=== PATIENT | male | born 1940 | race Caucasian/White ===

== ENCOUNTER 2023-01-25 13:01 | Outpatient (REF) | payer MEDICARE, SELFPAY ==
[2023-01-25 15:42] LABS: C. Difficile PCR NEGATIVE (NEGATIVE)
== END 2023-01-25 13:02 ==
LOC: LAB 13:01
PROVIDERS: PCP Family Medicine; Visit Provider Family Medicine
DX: R19.7 Diarrhea, unspecified (principal)
CPT/HCPCS: 87045; 87493

== ENCOUNTER 2023-01-30 12:01 | Outpatient (OUT) | payer MEDICARE, SELFPAY ==
--- NOTE | 2023-01-30 10:06 | CA_ITS ---
The 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
== END 2023-01-30 12:02 ==
LOC: CARD 12:02
PROVIDERS: PCP Family Medicine; Visit Provider Family Medicine
DX: R00.2 Palpitations (principal)
CPT/HCPCS: 93246

== ENCOUNTER 2023-05-15 08:10 | Outpatient (RCR) | payer MEDICARE, SELFPAY | END 2023-05-31 16:38 | disposition home or self-care (01) | LOC: PT 08:10 | PROVIDERS: PCP Family Medicine; Visit Provider Family Medicine | DX: M19.90 Unspecified osteoarthritis, unspecified site (principal); M54.50 Low back pain, unspecified | CPT/HCPCS: 97110; 97161; 97530 ==

== ENCOUNTER 2023-05-20 12:41 | Observation (INO) | payer MEDICARE, SELFPAY ==
[2023-05-20] VITALS (11 sets, daily range): BP systolic 123–193; BP diastolic 68–80; PULSE 51–81; RESP 14–20; TEMP 36.6–36.7; O2SAT 92–98; BMI 35.4; BMI 36.4
[2023-05-20] MEDS: HYDROMORPHONE HCL 0.5 MG/0.5 ML SYRINGE IM (13:39)
--- NOTE | 2023-05-20 13:48 | CT_ITS ---
The [address] [address] Patient Name: KYLER RICHARD MRN: [id number] date: 1940 Sex: M Assigned Patient Location: ED.MAIN Current Patient Location: ED.MAIN Accession/Order Number: [id number] Exam Date: 05/20/2023 13:40 Report Date: 05/20/2023 14:12 At the request of: ANNA CHINCHILLA Procedure: CT abdomen pelvis wo con CT abdomen pelvis wo con, 05/20/2023 1:40 PM EDT, [place]001 INDICATION: back pain, hx colon cancer COMPARISON: CT of the abdomen and pelvis from 09/18/2022.. TECHNIQUE: Helical images were obtained without intravenous contrast. Coronal and sagittal reconstructions were also generated. Dose reduction techniques were achieved by using automated exposure control and/or adjustment of mA and/or kV according to patient size and/or use of iterative reconstruction technique. Oral contrast: None. FINDINGS: The heart is borderline enlarged. Several punctate calcified granulomas are again seen in the visualized right lower lobe. The liver is normal in size and attenuation. Multiple small calculi are again seen in the gallbladder, without evidence of wall thickening or pericholecystic fluid. The pancreas is within normal limits. Several punctate calcified granulomas are again noted in the spleen. The adrenal glands appear unremarkable. The kidneys and ureters are within normal limits. The vasculature appears unremarkable. There is no pathologic retroperitoneal adenopathy. Portions of the pelvis are obscured by beam hardening artifact from the left hip prosthesis. The urinary bladder appears grossly unremarkable. No pelvic mass is identified. There is no evidence of pathologic pelvic adenopathy. There is no evidence of free air or free fluid. The bowel loops appear unremarkable. Multiple surgical clips are seen at the level of the rectosigmoid colon with mild stranding in the fat which may represent scarring. The appendix appears unremarkable. No significant hernia is identified. Moderate to marked hypertrophic changes are again seen throughout the visualized portions of the spine. CT/CT abdomen pelvis wo con IMPRESSION: There is no evidence of obstruction, free air or other acute intra-abdominal process. Multiple incidental findings are again noted as described above. Electronically authenticated by: SHRAVAN SHEFFIELD Date: 05/20/2023 14:12
--- NOTE | 2023-05-20 14:37 | ED_ITS ---
Documented by User: EMERSON Ferris 05/20/23 16:55 HPI - Back Pain/Injury General Chief Complaint: Back Pain/Injury Stated Complaint: BACK PAIN Time Seen by Provider: 05/20/23 13:30 Source: patient Mode of arrival: ambulance Limitations: no limitations History of Present Illness HPI Narrative: 82-year-old male past medical history colon cancer that is in remission for 20 years presents for a flareup of his chronic left lower back pain. He arrived by squad. Pain has been increased for the past 3 weeks as he was working under the kitchen sink. He states that he has seen his family doctor who put him on tizanidine and ordered physical therapy. He came in today as he states that usually once he gets moving in the morning, he can walk but today the pain was so bad that he could not walk. denies radiation of pain. denies IVDU. denies bowel or bladder incontinence. Moving around makes pain worse. Denies BLE swelling, temp or sensation changes. Related Data Home Medications Medication Instructions Recorded Confirmed aspirin 81 mg tablet,delayed 81 mg PO DAILY 05/20/23 05/20/23 release atorvastatin 40 mg tablet 40 mg PO DAILY 05/20/23 05/20/23 dorzolamide 22.3 mg-timolol 6.8 1 drp ophthalmic (eye) BID 05/20/23 05/20/23 mg/mL eye drops icosapent ethyl 1 gram capsule 2 g PO BID 05/20/23 05/20/23 latanoprost 0.005 % eye drops 1 drp ophthalmic (eye) .QHS 05/20/23 05/20/23 lisinopril 10 mg tablet 10 mg PO DAILY 05/20/23 05/20/23 meloxicam 15 mg tablet 15 mg PO DAILY 05/20/23 05/20/23 metoprolol tartrate 25 mg tablet 12.5 mg PO BID 05/20/23 05/20/23 netarsudil 0.02 % eye drops 1 drp ophthalmic (eye) DAILY 05/20/23 05/20/23 (Rhopressa) tamsulosin 0.4 mg capsule 0.4 mg PO BID 05/20/23 05/20/23 tizanidine 4 mg tablet 4 mg PO .qhs 05/20/23 05/20/23 Allergies Allergy/AdvReac Type Severity Reaction Status Date / Time No Known Drug Allergies Allergy Verified 05/20/23 13:49 Review of Systems ROS Status of ROS 10 or more systems reviewed and unremarkable except as noted in history and below [facility] Medical History (Updated 05/20/23 @ 17:46 by Martha Frederick) Surgical History (Updated 05/20/23 @ 17:46 by Martha Frederick) Family History (Updated 05/20/23 @ 17:47 by Martha Frederick) Father Family history of cancer Brother Family history of cancer Mother Family history of hypertension Social History (Updated 05/20/23 @ 17:48 by Martha Frederick) Within the past year, how often did you have a drink containing alcohol: never Score interpretation: A score less than 4 is consistent with normal alcohol consumption. Smoking status: Never smoker Non-prescribed substance use: denies use Previous occupational history: retired Highest level of school completed/degree received: Bachelor's degree Are you now , , , , never or living with a partner: Little interest or pleasure in doing things: not at all Feeling down, depressed, or hopeless: not at all Feel stressed/tense/nervous/anxious/difficulty sleeping: not at all Do you think of yourself as: straight/heterosexual Gender Identity: male Exam Narrative Exam Narrative: General: A&Ox3, no distress, talking in full an complete sentences skin: warm, dry, intact head: normocephalic, atraumatic eyes: EOMI nose: nares patent neck: supple, trachea midline respiratory: non-labored extremities: FROM x 4 but decreased range of motion of left leg due to pain in the back, strength +5/5 spine: NT, normal ROM, no vertebral tenderness, no step offs neuro: A&Ox3 psych: appropriate mood and affect, cooperative Constitutional Vital Signs, click to edit/add: Last Vital Signs Temp 97.9 F 05/20/23 17:15 Pulse 55 L 05/20/23 17:15 Resp 20 05/20/23 17:15 BP 159/77 H 05/20/23 17:15 Pulse Ox 94 L 05/20/23 17:15 O2 Del Method Room Air 05/20/23 17:15 Course Vital Signs Vital signs: Vital Signs Temperature 98.1 F 05/20/23 12:42 Pulse Rate 56 L 05/20/23 12:42 Respiratory Rate 18 05/20/23 12:42 Blood Pressure 193/79 H 05/20/23 12:42 Pulse Oximetry 98 05/20/23 12:42 Oxygen Delivery Method Room Air 05/20/23 12:42 Temperature 97.9 F 05/20/23 17:15 Pulse Rate 55 L 05/20/23 17:15 Respiratory Rate 20 05/20/23 17:15 Blood Pressure 159/77 H 05/20/23 17:15 Pulse Oximetry 94 L 05/20/23 17:15 Oxygen Delivery Method Room Air 05/20/23 17:15 MDM - Back Pain/Injury MDM Narrative Medical decision making narrative: Patient medicated with Dilaudid. No acute findings on final read of CT lumbar spine. UA positive for nitrite and leukocytes, WBCs and bacteria. He is not having dysuria or abdominal pain or urinary frequency and will hold off for the urine culture. Patient was trying to ambulate can only take a couple steps due to the pain. He states that the Dilaudid only took the sharp pain down but is still having pain. He will be given another dose and consult the hospitalist for admission for pain control and physical therapy. No significant lab normalities. Case discussed with Dr. Ba who accepts patient. Lab Data Labs: Lab Results 05/20/23 05/20/23 Range/Units 14:41 16:20 WBC 5.6 (4.0-11.0) 10^3/uL RBC 5.47 (4.70-6.10) 10^6/uL Hgb 17.8 (14.0-18.0) g/dL Hct 51.3 (42.0-54.0) % MCV 93.8 (80.0-94.0) fL MCH 32.5 (25.9-34.0) pg MCHC 34.7 (29.9-35.2) g/dL RDW 12.2 (11.0-15.0) % Plt Count 176 (150-450) 10^3/uL MPV 10.7 (9.5-13.5) fL Neut % (Auto) 49.7 (43.0-75.0) % Lymph % (Auto) 40.5 (20.5-60.0) % Hart % (Auto) 6.1 (1.7-12.0) % Eos % (Auto) 2.5 (0.9-7.0) % Baso % (Auto) 0.7 (0.2-2.0) % Neut # (Auto) 2.8 (1.4-6.5) 10^3/uL Lymph # (Auto) 2.3 (1.2-3.8) 10^3/uL Hart # (Auto) 0.3 (0.3-0.8) 10^3/uL Eos # (Auto) 0.1 (0.0-0.7) 10^3/uL Baso # (Auto) 0.0 (0.0-0.1) 10^3/uL Abs Immat Gran (auto) 0.03 (0.00-0.03) 10^3/uL Imm/Tot Granulo (auto) 0.5 (0.0-0.5) % Sodium 141 (136-145) mmol/L Potassium 4.0 (3.5-5.1) mmol/L Chloride 104 (98-107) mmol/L Carbon Dioxide 27.6 (21.0-32.0) mmol/L Anion Gap 13.4 BUN 20.0 H (7.0-18.0) mg/dL Creatinine 0.89 (0.70-1.30) mg/dL Est GFR ( Amer) >60 (>=60) Est GFR (Non-Af Amer) >60 (>=60) BUN/Creatinine Ratio 22.5 Glucose 96 (74-106) mg/dL Calcium 9.3 (8.5-10.1) mg/dL Urine Color Lt. yellow (YELLOW) Urine Clarity Clear (CLEAR) Urine pH 8.0 (5.0-9.0) Ur Specific [place] 1.015 (1.005-1.025) Urine Protein Negative (NEG/TRACE) mg/dL Urine Glucose (UA) Negative (NEGATIVE) mg/dL Urine Ketones Negative (NEGATIVE) mg/dL Urine Occult Blood Negative (NEGATIVE) Urine Nitrite Positive A (NEGATIVE) Urine Bilirubin Negative (NEGATIVE) Urine Urobilinogen 0.2 (0.2-1.0) EU/dL Ur Leukocyte Esterase Small A (NEGATIVE) Urine RBC 0-2 (0-2) #/HPF Urine WBC 5-10 A (NONE SEEN) #/HPF Ur Squamous Epith Cells Rare (NONE/RARE) #/LPF Urine Crystals None seen (None Seen) #/HPF Urine Bacteria Small A (NONE SEEN) #/HPF Urine Casts None seen (NONE SEEN) #/LPF Urine Mucus None seen (NONE SEEN) Ur Culture Indicated? Yes Discharge Plan Discharge Chief Complaint: Back Pain/Injury Clinical Impression: Inability to walk Strain of lumbar region Qualifiers: Encounter type: initial encounter Qualified Code(s): S39.012A - Strain of muscle, fascia and tendon of lower back, initial encounter Chronic back pain Qualifiers: Back pain location: low back pain Back pain laterality: left Sciatica presence: without sciatica Qualified Code(s): M54.50 - Low back pain, unspecified Patient Disposition: Admitted As Inpatient Time of Disposition Decision: 16:10 Discharge Date/Time: 05/20/23 17:17 Documented by User: Smooth Monteiro MD 05/20/23 20:06 HPI - Back Pain/Injury General Chief Complaint: Back Pain/Injury Stated Complaint: BACK PAIN Time Seen by Provider: 05/20/23 13:30 Related Data Home Medications Medication Instructions Recorded Confirmed aspirin 81 mg tablet,delayed 81 mg PO DAILY 05/20/23 05/20/23 release atorvastatin 40 mg tablet 40 mg PO DAILY 05/20/23 05/20/23 dorzolamide 22.3 mg-timolol 6.8 1 drp ophthalmic (eye) BID 05/20/23 05/20/23 mg/mL eye drops icosapent ethyl 1 gram capsule 2 g PO BID 05/20/23 05/20/23 latanoprost 0.005 % eye drops 1 drp ophthalmic (eye) .QHS 05/20/23 05/20/23 lisinopril 10 mg tablet 10 mg PO DAILY 05/20/23 05/20/23 meloxicam 15 mg tablet 15 mg PO DAILY 05/20/23 05/20/23 metoprolol tartrate 25 mg tablet 12.5 mg PO BID 05/20/23 05/20/23 netarsudil 0.02 % eye drops 1 drp ophthalmic (eye) DAILY 05/20/23 05/20/23 (Rhopressa) tamsulosin 0.4 mg capsule 0.4 mg PO BID 05/20/23 05/20/23 tizanidine 4 mg tablet 4 mg PO .qhs 05/20/23 05/20/23 Allergies Allergy/AdvReac Type Severity Reaction Status Date / Time No Known Drug Allergies Allergy Verified 05/20/23 13:49 [facility] Medical History (Updated 05/20/23 @ 17:46 by Martha Frdeerick) Surgical History (Updated 05/20/23 @ 17:46 by Martha Frederick) Family History (Updated 05/20/23 @ 17:47 by Martha Frederick) Father Family history of cancer Brother Family history of cancer Mother Family history of hypertension Social History (Updated 05/20/23 @ 17:48 by Martha Frederick) Within the past year, how often did you have a drink containing alcohol: never Score interpretation: A score less than 4 is consistent with normal alcohol consumption. Smoking status: Never smoker Non-prescribed substance use: denies use Previous occupational history: retired Highest level of school completed/degree received: Bachelor's degree Are you now , , , , never or living with a partner: Little interest or pleasure in doing things: not at all Feeling down, depressed, or hopeless: not at all Feel stressed/tense/nervous/anxious/difficulty sleeping: not at all Do you think of yourself as: straight/heterosexual Gender Identity: male Exam Constitutional Vital Signs, click to edit/add: Last Vital Signs Temp 97.9 F 05/20/23 17:15 Pulse 55 L 05/20/23 17:15 Resp 20 05/20/23 17:15 BP 159/77 H 05/20/23 17:15 Pulse Ox 94 L 05/20/23 17:15 O2 Del Method Room Air 05/20/23 17:15 Course Vital Signs Vital signs: Vital Signs Temperature 98.1 F 05/20/23 12:42 Pulse Rate 56 L 05/20/23 12:42 Respiratory Rate 18 05/20/23 12:42 Blood Pressure 193/79 H 05/20/23 12:42 Pulse Oximetry 98 05/20/23 12:42 Oxygen Delivery Method Room Air 05/20/23 12:42 Temperature 97.9 F 05/20/23 17:15 Pulse Rate 55 L 05/20/23 17:15 Respiratory Rate 20 05/20/23 17:15 Blood Pressure 159/77 H 05/20/23 17:15 Pulse Oximetry 94 L 05/20/23 17:15 Oxygen Delivery Method Room Air 05/20/23 17:15 MDM - Back Pain/Injury MDM Narrative Medical decision making narrative: Patient medicated with Dilaudid. No acute findings on final read of CT lumbar spine. UA positive for nitrite and leukocytes, WBCs and bacteria. He is not having dysuria or abdominal pain or urinary frequency and will hold off for the urine culture. Patient was trying to ambulate can only take a couple steps due to the pain. He states that the Dilaudid only took the sharp pain down but is still having pain. He will be given another dose and consult the hospitalist for admission for pain control and physical therapy. No significant lab normalities. Case discussed with Dr. Ba who accepts patient. I, Dr Monteiro, have reviewed the above progress note and course of action in the ER; agree with the above. I have personally seen and evaluated this patient, gone over history and physical, and discussed disposition and treatment plan with the patient. Lab Data Labs: Lab Results 05/20/23 05/20/23 Range/Units 14:41 16:20 WBC 5.6 (4.0-11.0) 10^3/uL RBC 5.47 (4.70-6.10) 10^6/uL Hgb 17.8 (14.0-18.0) g/dL Hct 51.3 (42.0-54.0) % MCV 93.8 (80.0-94.0) fL MCH 32.5 (25.9-34.0) pg MCHC 34.7 (29.9-35.2) g/dL RDW 12.2 (11.0-15.0) % Plt Count 176 (150-450) 10^3/uL MPV 10.7 (9.5-13.5) fL Neut % (Auto) 49.7 (43.0-75.0) % Lymph % (Auto) 40.5 (20.5-60.0) % Hart % (Auto) 6.1 (1.7-12.0) % Eos % (Auto) 2.5 (0.9-7.0) % Baso % (Auto) 0.7 (0.2-2.0) % Neut # (Auto) 2.8 (1.4-6.5) 10^3/uL Lymph # (Auto) 2.3 (1.2-3.8) 10^3/uL Hart # (Auto) 0.3 (0.3-0.8) 10^3/uL Eos # (Auto) 0.1 (0.0-0.7) 10^3/uL Baso # (Auto) 0.0 (0.0-0.1) 10^3/uL Abs Immat Gran (auto) 0.03 (0.00-0.03) 10^3/uL Imm/Tot Granulo (auto) 0.5 (0.0-0.5) % Sodium 141 (136-145) mmol/L Potassium 4.0 (3.5-5.1) mmol/L Chloride 104 (98-107) mmol/L Carbon Dioxide 27.6 (21.0-32.0) mmol/L Anion Gap 13.4 BUN 20.0 H (7.0-18.0) mg/dL Creatinine 0.89 (0.70-1.30) mg/dL Est GFR ( Amer) >60 (>=60) Est GFR (Non-Af Amer) >60 (>=60) BUN/Creatinine Ratio 22.5 Glucose 96 (74-106) mg/dL Calcium 9.3 (8.5-10.1) mg/dL Urine Color Lt. yellow (YELLOW) Urine Clarity Clear (CLEAR) Urine pH 8.0 (5.0-9.0) Ur Specific [place] 1.015 (1.005-1.025) Urine Protein Negative (NEG/TRACE) mg/dL Urine Glucose (UA) Negative (NEGATIVE) mg/dL Urine Ketones Negative (NEGATIVE) mg/dL Urine Occult Blood Negative (NEGATIVE) Urine Nitrite Positive A (NEGATIVE) Urine Bilirubin Negative (NEGATIVE) Urine Urobilinogen 0.2 (0.2-1.0) EU/dL Ur Leukocyte Esterase Small A (NEGATIVE) Urine RBC 0-2 (0-2) #/HPF Urine WBC 5-10 A (NONE SEEN) #/HPF Ur Squamous Epith Cells Rare (NONE/RARE) #/LPF Urine Crystals None seen (None Seen) #/HPF Urine Bacteria Small A (NONE SEEN) #/HPF Urine Casts None seen (NONE SEEN) #/LPF Urine Mucus None seen (NONE SEEN) Ur Culture Indicated? Yes Discharge Plan Discharge Chief Complaint: Back Pain/Injury Clinical Impression: Inability to walk Strain of lumbar region Qualifiers: Encounter type: initial encounter Qualified Code(s): S39.012A - Strain of muscle, fascia and tendon of lower back, initial encounter Chronic back pain Qualifiers: Back pain location: low back pain Back pain laterality: left Sciatica presence: without sciatica Qualified Code(s): M54.50 - Low back pain, unspecified Patient Disposition: Admitted As Inpatient Time of Disposition Decision: 16:10 Discharge Date/Time: 05/20/23 17:17
[2023-05-20 14:55] LABS: Bilirubin Urine NEGATIVE (NEGATIVE); Blood Urine NEGATIVE (NEGATIVE); Clarity Urine CLEAR (CLEAR); Color Urine LT. YELLOW (YELLOW); Glucose Urine UA NEGATIVE (NEGATIVE); Ketones Urine NEGATIVE (NEGATIVE); Leukocyte Esterase Urine SMALL (NEGATIVE); Nitrite Urine POSITIVE (NEGATIVE); Protein Urine NEGATIVE (NEG/TRACE); Specific Gravity Urine 1.015 (1.005-1.025); Urobilinogen Urine 0.2 EU/dL (0.2-1.0)
[2023-05-20 15:10] LABS: Bacteria Urine SMALL #/HPF (NONE SEEN); Cast Seen? NONE SEEN #/LPF (NONE SEEN); Crystals Seen? None Seen #/HPF (None Seen); Mucus Urine NONE SEEN (NONE SEEN); RBC Urine 0-2 #/HPF (0-2); Squamous Epithelial Cell Urine RARE #/LPF (NONE/RARE); Urine Culture Indicated YES
[2023-05-20 16:30] LABS: Basophils Percent Auto 0.7 % (0.2-2.0); Eosinophils Absolute Auto 0.1 10^3/uL (0.0-0.7); Eosinophils Percent Auto 2.5 % (0.9-7.0); Hematocrit 51.3 % (42.0-54.0); Hemoglobin 17.8 g/dL (14.0-18.0); Immature Granulocytes Abs Auto 0.03 10^3/uL (0.00-0.03); Immature Granulocytes Pct Auto 0.5 % (0.0-0.5); Lymphocytes Absolute Auto 2.3 10^3/uL (1.2-3.8); Lymphocytes Percent Auto 40.5 % (20.5-60.0); Mean Corpuscular HGB Conc 34.7 g/dL (29.9-35.2); Mean Corpuscular Hemoglobin 32.5 pg (25.9-34.0); Mean Corpuscular Volume 93.8 fL (80.0-94.0); Mean Platelet Volume 10.7 fL (9.5-13.5); Monocytes Absolute Auto 0.3 10^3/uL (0.3-0.8); Monocytes Percent Auto 6.1 % (1.7-12.0); Neutrophils Absolute Auto 2.8 10^3/uL (1.4-6.5); Neutrophils Percent Auto 49.7 % (43.0-75.0); Platelet Count 176 10^3/uL (150-450); Red Blood Count 5.47 10^6/uL (4.70-6.10); Red Cell Distribution Width 12.2 % (11.0-15.0); White Blood Count 5.6 10^3/uL (4.0-11.0)
[2023-05-20 16:44] LABS: Anion Gap 13.4; BUN Creatinine Ratio 22.5; Calcium 9.3 mg/dL (8.5-10.1); Carbon Dioxide 27.6 mmol/L (21.0-32.0); Chloride 104 mmol/L (98-107); Estimated GFR (African America >60 (>=60); Estimated GFR (Non-African Ame >60 (>=60); Glucose 96 mg/dL (74-106); Sodium 141 mmol/L (136-145)
[2023-05-20] MEDS: HYDROMORPHONE HCL 0.5 MG/0.5 ML SYRINGE IV (16:44)
--- NOTE | 2023-05-20 19:20 | P.HP_ITS ---
H&P: HPI History of Present Illness Chief complaint: BACK PAIN Narrative: Patient is a low back pain presented to the emergency room with increasing low back pain, increased activity the day before this he felt pretty good. Due to some twisting motion getting in and out of the car and he thinks that this was tweaked his back. Unable to ambulate at home. Does get some pain into the left leg from time to time but not consistent. Patient mated for pain control Review of Systems ROS Status of ROS 10 or more systems reviewed and unremarkable except as noted in history and below Cardiovascular Denies: chest pain or palpitations Respiratory Denies: shortness of breath Genitourinary Denies: painful urination PFSH PFS Medical History (Updated 05/20/23 @ 17:46 by Martha Frederick) Surgical History (Updated 05/20/23 @ 17:46 by Martha Frederick) Family History (Updated 05/20/23 @ 17:47 by Martha Frederick) Father Family history of cancer Brother Family history of cancer Mother Family history of hypertension Social History (Updated 05/20/23 @ 17:48 by Martha Frederick) Within the past year, how often did you have a drink containing alcohol: never Score interpretation: A score less than 4 is consistent with normal alcohol consumption. Smoking status: Never smoker Non-prescribed substance use: denies use Previous occupational history: retired Highest level of school completed/degree received: Bachelor's degree Are you now , , , , never or living with a partner: Little interest or pleasure in doing things: not at all Feeling down, depressed, or hopeless: not at all Feel stressed/tense/nervous/anxious/difficulty sleeping: not at all Do you think of yourself as: straight/heterosexual Gender Identity: male Meds Home Medications and Allergies Home Medications Medication Instructions Recorded Confirmed Type aspirin 81 mg tablet,delayed 81 mg PO DAILY 05/20/23 05/20/23 History release atorvastatin 40 mg tablet 40 mg PO DAILY 05/20/23 05/20/23 History dorzolamide 22.3 mg-timolol 6.8 1 drp ophthalmic (eye) BID 05/20/23 05/20/23 History mg/mL eye drops icosapent ethyl 1 gram capsule 2 g PO BID 05/20/23 05/20/23 History latanoprost 0.005 % eye drops 1 drp ophthalmic (eye) .QHS 05/20/23 05/20/23 History lisinopril 10 mg tablet 10 mg PO DAILY 05/20/23 05/20/23 History meloxicam 15 mg tablet 15 mg PO DAILY 05/20/23 05/20/23 History metoprolol tartrate 25 mg tablet 12.5 mg PO BID 05/20/23 05/20/23 History netarsudil 0.02 % eye drops 1 drp ophthalmic (eye) DAILY 05/20/23 05/20/23 History (Rhopressa) tamsulosin 0.4 mg capsule 0.4 mg PO BID 05/20/23 05/20/23 History tizanidine 4 mg tablet 4 mg PO .qhs 05/20/23 05/20/23 History Allergies Allergy/AdvReac Type Severity Reaction Status Date / Time No Known Drug Allergies Allergy Verified 05/20/23 13:49 Exam Constitutional Vital Signs, click to edit/add: Last Vital Signs Temp 97.9 F 05/20/23 17:15 Pulse 55 L 05/20/23 17:15 Resp 20 05/20/23 17:15 BP 159/77 H 05/20/23 17:15 Pulse Ox 94 L 05/20/23 17:15 O2 Del Method Room Air 05/20/23 17:15 Documenting provider has reviewed patient's vital signs: yes Common normals: no apparent distress Chest Common normals: inspection of chest normal Respiratory Common normals: normal respiratory effort and clear to auscultation bilaterally Cardio Common normals: regular rate and no murmurs GI Common normals: Normal to inspection, nondistended, normoactive bowel sounds present, soft to palpation and non-tender Back & Pelvis Other: Diffuse lumbosacral muscle tenderness. Positive straight leg raise on the left side but minimal change in strength Results Labs Labs: Short CBC 05/20/23 Range/Units 16:20 WBC 5.6 (4.0-11.0) 10^3/uL Hgb 17.8 (14.0-18.0) g/dL Hct 51.3 (42.0-54.0) % Plt Count 176 (150-450) 10^3/uL BMP 05/20/23 16:20 Sodium 141 Potassium 4.0 Chloride 104 Carbon Dioxide 27.6 BUN 20.0 H Creatinine 0.89 Glucose 96 Calcium 9.3 Urine 05/20/23 Range/Units 14:41 Urine Color Lt. yellow (YELLOW) Urine Clarity Clear (CLEAR) Urine pH 8.0 (5.0-9.0) Ur Specific [place] 1.015 (1.005-1.025) Urine Protein Negative (NEG/TRACE) mg/dL Urine Glucose (UA) Negative (NEGATIVE) mg/dL Assessment and Plan Assessment and Plan (1) Strain of lumbar region: Qualifiers: Encounter type: initial encounter Qualified Code(s): S39.012A - Strain of muscle, fascia and tendon of lower back, initial encounter (2) Chronic back pain: Qualifiers: Back pain laterality: left Back pain location: low back pain Sciatica presence: without sciatica Qualified Code(s): M54.50 - Low back pain, unspecified; G89.29 - Other chronic pain (3) Inability to walk: (4) Heart disease: (5) Hypertension: Plan Unable to ambulate secondary to lumbar strain secondary to chronic low back pain-this is have some radicular type symptoms with pain into the left leg. Toradol, Norflex, consider steroids, physical therapy, if improved tomorrow likely discharged home in improving condition. Hypertension-continue home medications Coronary artery disease with elevated cholesterol-denies chest pain
[2023-05-20] MEDS: TAMSULOSIN HCL 0.4 MG CAPSULE PO (21:40)
[2023-05-20] MEDS: METOPROLOL TARTRATE 25 MG TABLET 12.5 MG PO (21:40)
[2023-05-20] MEDS: DORZOLAMIDE HCL 2%/TIMOLOL MALEATE 0.5% 200 DROP/10 ML BOTTLE EYE-BOTH (21:41)
[2023-05-20] MEDS: LEVOFLOXACIN IN DEXTROSE 5 % 750 MG/150 ML PIGGYBACK IV (21:49)
[2023-05-20] MEDS: KETOROLAC TROMETHAMINE 30 MG/ML VIAL 15 MG IVP (21:49)
[2023-05-20] MEDS: ORPHENADRINE 60 MG/ 2 ML VIAL IV (21:50)
[2023-05-21] MEDS: KETOROLAC TROMETHAMINE 30 MG/ML VIAL 15 MG IVP ×2 (04:55→12:59)
[2023-05-21 06:00] VITALS: BP 149/64; PULSE 61; RESP 16; TEMP 36.4; O2SAT 92
[2023-05-21] MEDS: CEFTRIAXONE 1,000 MG in 0.9 % SODIUM CHLORIDE 50 ML 100 MG IV (07:54)
[2023-05-21] MEDS: CIPROFLOXACIN IN 5 % DEXTROSE 400 MG/200 ML PIGGYBACK 200 MG IV (07:55)
--- NOTE | 2023-05-21 08:18 | CM.NOTE ---
Medicare Outpatient Observation Notice discussed with pt, pt verbalizes understanding and signs paper. Original given to pt and copy placed on pt's chart.
[2023-05-21] MEDS: METOPROLOL TARTRATE 25 MG TABLET 12.5 MG PO (08:59)
[2023-05-21] MEDS: TAMSULOSIN HCL 0.4 MG CAPSULE PO (08:59)
[2023-05-21] MEDS: LISINOPRIL 10 MG TABLET PO (08:59)
[2023-05-21] MEDS: ATORVASTATIN CALCIUM 40 MG TABLET PO (08:59)
[2023-05-21] MEDS: DORZOLAMIDE HCL 2%/TIMOLOL MALEATE 0.5% 200 DROP/10 ML BOTTLE EYE-BOTH (09:06)
[2023-05-21] MEDS: ORPHENADRINE 60 MG/ 2 ML VIAL IV (09:07)
--- NOTE | 2023-05-21 09:15 | P.DS_ITS ---
DS: Providers Provider Date of admission: 05/20/23 17:02 Primary care physician: Bayron Ba MD Consults: 05/20/23 18:41 Occupational Therapy Eval and Treat Routine Reason for consultation: sback pain - only if needed for rehab Has provider been notified: No Physical Therapy Eval and Treat Routine Reason for consultation: back pain Has provider been notified: No DS: Diagnosis Discharge Diagnosis (1) Strain of lumbar region: Qualifiers: Encounter type: initial encounter Qualified Code(s): S39.012A - Strain of muscle, fascia and tendon of lower back, initial encounter (2) Chronic back pain: Qualifiers: Back pain laterality: left Back pain location: low back pain Sciatica presence: without sciatica Qualified Code(s): M54.50 - Low back pain, unspecified; G89.29 - Other chronic pain (3) Inability to walk: (4) Heart disease: (5) Hypertension: Plan Unable to ambulate secondary to lumbar strain secondary to chronic low back pain Hypertension L Coronary artery disease with elevated cholesterol DS: Summary Hospital Course Hospital Course: Patient mated and presented himself to the emergency room with increasing low back pain. Unable to ambulate. Given multiple medications in the ER without success. Patient was admitted, given IV medication overnight. He does feel improved this morning. Has not worked with physical therapy yet today. Blood pressure is significantly elevated at admission but is improved currently. Laboratory evaluation unremarkable other than acute UTI. He is on IV antibiotics for that. He is able to ambulate with physical therapy will be discharged home later this morning in improving condition. Medications see list. Follow-up with me in the office next week. Time Spent with Patient Time attestation: Total time spent providing and/or coordinating discharge services: Exam Constitutional Vital Signs, click to edit/add: Last Vital Signs Temp 97.6 F 05/21/23 06:00 Pulse 61 05/21/23 06:00 Resp 16 05/21/23 06:00 BP 149/64 H 05/21/23 06:00 Pulse Ox 92 L 05/21/23 06:00 O2 Del Method Room Air 05/21/23 06:00 Documenting provider has reviewed patient's vital signs: yes Common normals: no apparent distress Chest Common normals: inspection of chest normal Respiratory Common normals: normal respiratory effort and clear to auscultation bilaterally Cardio Common normals: regular rate and no murmurs GI Common normals: Normal to inspection, nondistended, normoactive bowel sounds present, soft to palpation and non-tender Back & Pelvis Other: Diffuse lumbosacral muscle tenderness. Positive straight leg raise on the left side but minimal change in strength DS: Data Data Completed and Pending Labs on day of discharge: Labs from last 24 hours 05/20/23 05/20/23 16:20 14:41 WBC 5.6 RBC 5.47 Hgb 17.8 Hct 51.3 MCV 93.8 MCH 32.5 MCHC 34.7 RDW 12.2 Plt Count 176 MPV 10.7 Neut % (Auto) 49.7 Lymph % (Auto) 40.5 [place] % (Auto) 6.1 Eos % (Auto) 2.5 Baso % (Auto) 0.7 Neut # (Auto) 2.8 Lymph # (Auto) 2.3 [place] # (Auto) 0.3 Eos # (Auto) 0.1 Baso # (Auto) 0.0 Abs Immat Gran (auto) 0.03 Imm/Tot Granulo (auto) 0.5 Sodium 141 Potassium 4.0 Chloride 104 Carbon Dioxide 27.6 Anion Gap 13.4 BUN 20.0 H Creatinine 0.89 Est GFR ( Amer) >60 Est GFR (Non-Af Amer) >60 BUN/Creatinine Ratio 22.5 Glucose 96 Calcium 9.3 Urine Color Lt. yellow Urine Clarity Clear Urine pH 8.0 Ur Specific [place] 1.015 Urine Protein Negative Urine Glucose (UA) Negative Urine Ketones Negative Urine Occult Blood Negative Urine Nitrite Positive A Urine Bilirubin Negative Urine Urobilinogen 0.2 Ur Leukocyte Esterase Small A Urine RBC 0-2 Urine WBC 5-10 A Ur Squamous Epith Cells Rare Urine Crystals None seen Urine Bacteria Small A Urine Casts None seen Urine Mucus None seen Ur Culture Indicated? Yes Discharge Plan Discharge Disposition: Home, Self-Care Discharge Medications: New baclofen 20 mg tablet 20 mg PO .qhs Qty: 14 0RF levofloxacin 500 mg tablet 500 mg PO DAILY 5 Days Qty: 5 0RF Continued atorvastatin 40 mg tablet 40 mg PO DAILY dorzolamide-timolol 22.3-6.8 mg/mL drops 1 drp OPHTHALMIC (EYE) BID Rx Instructions: BOTH EYES icosapent ethyl 1 gram capsule 2 g PO BID latanoprost 0.005 % drops 1 drp OPHTHALMIC (EYE) .QHS Rx Instructions: RIGHT EYE lisinopril 10 mg tablet 10 mg PO DAILY meloxicam 15 mg tablet 15 mg PO DAILY metoprolol tartrate 25 mg tablet 12.5 mg PO BID Rhopressa 0.02 % drops 1 drp OPHTHALMIC (EYE) DAILY Rx Instructions: RIGHT EYE tamsulosin 0.4 mg capsule 0.4 mg PO BID aspirin 81 mg tablet,delayed release (DR/EC) 81 mg PO DAILY Discontinued tizanidine 4 mg tablet 4 mg PO .qhs Rx Instructions: 1 to 2 tablets at bedtime Forms: Portal Instructions
[2023-05-21 11:30] VITALS: O2SAT 96
--- NOTE | 2023-05-21 13:23 | SWNOTE1 ---
SW checked therapy note and no PT needed at discharge.
--- NOTE | 2023-05-21 15:02 | SWNOTE1 ---
SW met with pt to discuss dc needs. Pt lives at home with his . Pt has had back problems for over 60 years due to a piano falling on his back when he was in his twenties. Pt was doing well and it just comes and goes. He sometimes uses a walker/cane especially if they are out and about. Pt voiced he is feeling much better and has no concerns about discharge at this time. Pt still drives to [employer] in [place]. SW to follow as needed. No needs at this time.
--- NOTE | 2023-05-22 16:22 | CM.DCFOLLOWU ---
Person spoke with: patient How are you feeling? well How is your pain? controlled Did you understand your discharge instructions? yes Do you have any questions about your discharge instructions? no Were you given any prescriptions at discharge? yes Were you able to get your prescriptions filled? yes Do you understand how to take your medications as ordered? yes Do you have any questions about your follow up appointment and do you plan to keep your follow up appointment? no questions, all follow ups are scheduled and pt is aware of them Is there anything else that you would like to discuss? no Questions/Comments/Concerns/Other:
== END 2023-05-21 16:15 | disposition home or self-care (01) ==
LOC: ER 16:11 → MS 05-21 07:01
PROVIDERS: Physician Assistant; Admitting Provider Family Medicine; Emergency Provider Emergency Medicine; PCP Family Medicine; Visit Provider Family Medicine
DX: S39.012A Strain of muscle, fascia and tendon of lower back, initial encounter (principal); G89.29 Other chronic pain; I10 Essential (primary) hypertension; R26.2 Difficulty in walking, not elsewhere classified; N39.0 Urinary tract infection, site not specified; I25.10 Atherosclerotic heart disease of native coronary artery without angina pectoris; E78.00 Pure hypercholesterolemia, unspecified; Z79.899 Other long term (current) drug therapy; Z79.82 Long term (current) use of aspirin; X50.1XXA Overexertion from prolonged static or awkward postures, initial encounter; B96.89 Other specified bacterial agents as the cause of diseases classified elsewhere
CPT/HCPCS: 36415; 74176; 80048; 81001; 85025; 87086; 87150; 87186; 94761; 96365; 96368; 96372; 96375; 96376; 97162; 97165; 97535; 99285; G0378; J1170

== ENCOUNTER 2023-05-27 08:04 | Outpatient (OUT) | payer MEDICARE, SELFPAY ==
--- NOTE | 2023-05-27 09:23 | PM.CN ---
Consult Note: HPI Data of Consult Patient: new to practice Consult date: 05/27/23 Requesting Physician: Fabrice Dias MD Primary Care Provider: Bayron Ba MD Consult Narrative Reason for consult: low back, left leg pain Narrative: 82yom who presents for evaluation. worsening low back, left leg pain that exacerbated in the past several weeks. was in ER last week for pain, no spinal imaging completed. utilizes mobic. currently continuing in PT, which provides mild relief. denies adverse med side effects. cc:: CC: Fabrice Dias MD Review of Systems ROS Status of ROS 10 or more systems reviewed and unremarkable except as noted in history and below [facility] Medical History Chronic back pain ?M54.9 - Dorsalgia, unspecified (ICD-10) ?G89.29 - Other chronic pain (ICD-10) Colon cancer ?C18.9 - Malignant neoplasm of colon, unspecified (ICD-10) Glaucoma ?H40.9 - Unspecified glaucoma (ICD-10) Heart disease ?I51.9 - Heart disease, unspecified (ICD-10) High cholesterol ?E78.00 - Pure hypercholesterolemia, unspecified (ICD-10) Hypertension ?I10 - Essential (primary) hypertension (ICD-10) Inability to walk ?R26.2 - Difficulty in walking, not elsewhere classified (ICD-10) Strain of lumbar region ?S39.012A - Strain of muscle, fascia and tendon of lower back, initial encounter (ICD-10) Surgical History Cataracts, both eyes ?H26.9 - Unspecified cataract (ICD-10) Detached retina, left ?H33.22 - Serous retinal detachment, left eye (ICD-10) Hernia of abdominal wall ?K43.9 - Ventral hernia without obstruction or gangrene (ICD-10) History of colectomy ?Z90.49 - Acquired absence of other specified parts of digestive tract (ICD-10) History of left hip replacement ?Z96.642 - Presence of left artificial hip joint (ICD-10) History of quadruple bypass ?Z95.1 - Presence of aortocoronary bypass graft (ICD-10) Family History Father Family history of cancer Brother Family history of cancer Mother Family history of hypertension Social History Within the past year, how often did you have a drink containing alcohol: never Score interpretation: A score less than 4 is consistent with normal alcohol consumption. Smoking status: Never smoker Non-prescribed substance use: denies use Previous occupational history: retired Highest level of school completed/degree received: Bachelor's degree Are you now , , , , never or living with a partner: Little interest or pleasure in doing things: not at all Feeling down, depressed, or hopeless: not at all Feel stressed/tense/nervous/anxious/difficulty sleeping: not at all Do you think of yourself as: straight/heterosexual Gender Identity: male Meds Home Medications and Allergies Home Medications Medication Instructions Recorded Confirmed Type aspirin 81 mg tablet,delayed 81 mg PO DAILY 05/20/23 05/20/23 History release atorvastatin 40 mg tablet 40 mg PO DAILY 05/20/23 05/20/23 History dorzolamide 22.3 mg-timolol 6.8 1 drp ophthalmic (eye) BID 05/20/23 05/20/23 History mg/mL eye drops icosapent ethyl 1 gram capsule 2 g PO BID 05/20/23 05/20/23 History latanoprost 0.005 % eye drops 1 drp ophthalmic (eye) .QHS 05/20/23 05/20/23 History lisinopril 10 mg tablet 10 mg PO DAILY 05/20/23 05/20/23 History meloxicam 15 mg tablet 15 mg PO DAILY 05/20/23 05/20/23 History metoprolol tartrate 25 mg tablet 12.5 mg PO BID 05/20/23 05/20/23 History netarsudil 0.02 % eye drops 1 drp ophthalmic (eye) DAILY 05/20/23 05/20/23 History (Rhopressa) tamsulosin 0.4 mg capsule 0.4 mg PO BID 05/20/23 05/20/23 History baclofen 20 mg tablet 20 mg PO .[facility] #14 tabs 05/21/23 Rx levofloxacin 500 mg tablet 500 mg PO DAILY 5 days #5 tabs 05/21/23 Rx Allergies Allergy/AdvReac Type Severity Reaction Status Date / Time No Known Drug Allergies Allergy Verified 05/20/23 13:49 Exam Narrative Exam Narrative: Psych-alert and oriented x 3. Attentive and appropriate, constitutionally normal, displays normal mood and affect per situation. There are no obvious deficits in memory, reasoning, or intellect.? Skin-no obvious rashes, bruising, erythema noted to the patient's area of pain.? Extremities- extremities are warm with minimal edema and palpable pulses. Lumbar-tenderness to palpation noted in the lumbar spine and paraspinal musculature. Pain is elicited with flexion, extension, and lateral rotation of the lumbar spine. Range of motion is diminished with these motions. Facet loading maneuvers are positive. Strength-noted to be unremarkable with the exception of decreased strength rated at 4 out of 5 in left quadriceps femoris, anterior tibialis. Sensory-no notable sensory deficits in the bilateral lower extremities to touch or pinprick in all dermatomal distributions with the exception to decreased sensation to the left L3, 4, 5 dermatomal distribution Coordination remains intact.? Gait remains non-antalgic Assessment and Plan Assessment and Plan (1) Lumbar stenosis with neurogenic claudication: (2) Lumbar spondylosis: Plan 82yom who presents for evaluation. failed conservative measures, as noted. no imaging completed previously, so given worsening of symptoms, will have him undergo lumbar mri without contrast and xr sacrum. he is in agreement. encouraged him to continue his home exercises. medications reviewed, no changes. does not want medications. followup after imaging.
== END 2023-05-27 08:05 | disposition home or self-care (01) ==
LOC: PM 08:06
PROVIDERS: PCP Family Medicine; Visit Provider Anesthesiology
DX: M48.062 Spinal stenosis, lumbar region with neurogenic claudication (principal); M47.816 Spondylosis without myelopathy or radiculopathy, lumbar region
CPT/HCPCS: G0463

== ENCOUNTER 2023-05-30 07:55 | Outpatient (OUT) | payer MEDICARE, SELFPAY ==
--- NOTE | 2023-05-30 08:04 | XR_ITS ---
The [address] [address] Patient Name: KYLER RICHARD MRN: [id number] date: 1940 Sex: M Assigned Patient Location: RAD Current Patient Location: RAD Accession/Order Number: [id number] Exam Date: 05/30/2023 08:10 Report Date: 05/30/2023 13:39 At the request of: ANDRIUS GIEDRAITIS Procedure: XR sacrum coccyx min 2V PROCEDURE: XR sacrum coccyx min 2V DATE: 05/30/2023 7:10 AM CDT COMPARISONS: CT the abdomen and pelvis 05/20/2023 CLINICAL INDICATION: Lumbar Stenosis FINDINGS: There is no evidence of fractures or other acute osseous abnormalities. There is evidence of some chronic deformity of the tip of the coccyx. This could be related to old injury. There is evidence of prominent degenerative disc changes L5-S1. There is evidence of prominent lower lumbar spine facet degenerative changes. There is evidence of prosthetic left hip. There is mild bilateral sacroiliac degenerative changes. XR/XR sacrum coccyx min 2V IMPRESSION: Findings as discussed above. No evidence of acute osseous abnormalities. Electronically authenticated by: TERRENCE GILBERT Date: 05/30/2023 13:39
== END 2023-05-30 07:56 | disposition home or self-care (01) ==
LOC: RAD 07:57
PROVIDERS: PCP Family Medicine
DX: M48.061 Spinal stenosis, lumbar region without neurogenic claudication (principal); M47.816 Spondylosis without myelopathy or radiculopathy, lumbar region; Z96.642 Presence of left artificial hip joint
CPT/HCPCS: 72220

== ENCOUNTER 2023-09-23 13:05 | Outpatient (OUT) | payer MEDICARE, SELFPAY ==
--- OUTSIDE RECORDS SUMMARY | 2023-09-23 13:07 | XMS_ITS | CCD ---
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 Name Role Phone Eliana Ba Primary Care Physician [phone] MD Reno VALENTIN Attending Unavailable MD Reno VALENTIN Attending Unavailable MD Reno VALENTIN Attending Unavailable MD Reno VALENTIN Attending Unavailable MD Reno VALENTIN Attending Unavailable GERONIMO ., KARLOS Admitting Unavailable GERONIMO ., KARLOS Consulting Unavailable GERONIMO ., KARLOS Attending Unavailable MARCUS ., DR MONROY Primary Care Unavailable Mayra Lopez Consulting Unavailable HOY ., DR MONROY Attending Unavailable HOY ., DR MONROY Admitting Unavailable HOY ., DR MONROY Primary Care Unavailable HOY ., DR MONROY Consulting Unavailable HOY ., DR MONROY Attending Unavailable HOY ., DR MONROY Admitting Unavailable HOY ., DR MONROY Primary Care Unavailable HOY ., DR MONROY Consulting Unavailable CALVIN BARNES Consulting Unavailable Arun COE, Fabrice Conner Attending Unavailable Rocio Chan Unavailable Allergies Allergy Classification Reported Allergen(s) Allergy Type Date of Onset Reaction(s) Facility (2 sources) levoFLOXacin; Translations: [levofloxacin] Drug Allergy Irritation (qualifier value) [facility] Medications Current Medications Medication Drug Class(es) Dates Sig (Normalized) Sig (Original) Aspirin (1 source) Platelet Aggregation Inhibitor, Nonsteroidal Anti-inflammatory Drug Start: 09-26-2022 aspirin Start Date: 09/26/22 Status: Ordered atorvastatin 40 mg oral tablet (3 sources) HMG-CoA Reductase Inhibitor Start: 03-13-2019 atorvastatin 40 mg oral tablet Refills(s) 0 Start Date: 03/13/19 Status: Ordered brimonidine (2 sources) alpha-Adrenergic Agonist Start: 03-13-2019 brimonidine ophthalmic 0.2% solution Refill(s) 0 Start Date: 03/13/19 Status: Ordered Start: 03-13-2019 brimonidine op hthalmic 0.2% solution Refill(s) 0 Start Date: 03/13/19 Status: Ordered brimonidine tartrate 2 mg/ml / timolol 5 mg/ml ophthalmic solution (1 source) alpha-Adrenergic Agonist, beta-Adrenergic Whit take 1 drop(s) into the eye(s) twice daily Combigan 0.2-0.5 % 1 drop into affected eye Ophthalmic Twice a day Active dorzolamide (3 sources) Carbonic Anhydrase Inhibitor Start: 03-13-20 take 1 drop(s) into the eye(s) three times daily dorzolamide 2% ophthalmic solution 1 drop(s), OPTH, TID, 10 mL, Refill(s) 0 Start Date: 03/13/19 Status: Ordered Start: 03-13-2019 take 1 drop(s) into the eye(s) three times daily dorzolamide 2% ophthalmic solution 1 drop(s), OPTH, TID, 10 mL, Refill(s) 0 Start Date: 03/13/19 Status: Ordered take 1 drop(s) into the eye(s) three times daily Dorzolamide HCl 2 % 1 drop into affected eye Ophthalmic Three times a day Active doxycycline hyclate 100 mg oral capsule (1 source) Tetracycline-class Drug Start: 09-26-2022 End: 10-06-2022 take 1 capsule by mouth twice daily doxycycline hyclate 100 mg Cap 100 mg = 1 cap(s), Oral, BID, X 10 day(s), # 20 cap(s), Refills(s) 0, Pharmacy: [id number], 160, cm, 09/26/22 13:50:00 EST, Height/Length Dosing, 97.3, kg, 09/26/22 13:50:00 EST, Weight Dosing Start Date: 09/26/22 Stop Date: 10/06/22 Status: Ordered icosapent ethyl 1000 mg oral capsule (3 sources) Start: 03-13-2019 Vascepa 1 g oral capsule Refills(s) 0 Start Date: 03/13/19 Status: Ordered take 2 capsules by m outh every twelve hours Vascepa 1 GM 2 capsules with food Orally Twice a day Active latanoprost (3 sources) Prostaglandin Analog Start: 03-13-2019 take 1 drop(s) into the eye(s) once daily at bedtime latanoprost ophthalmic 0.005% solution 1 drop(s), OPTH, Once a day (at bedtime), 2.5 mL, Refill(s) 0 Start Date: 03/13/19 Status: Ordered Start: 03-13-2019 take 1 drop(s) into the eye(s) once daily at bedtime latanoprost ophthalmic 0.005% solution 1 drop(s), OPTH, Once a day (at bedtime), 2.5 mL, Refill(s) 0 Start Date: 03/13/19 Status: Ordered take 1 drop(s) into the eye(s) once daily in the evening Latanoprost 0.005 % 1 drop into affected eye in the evening Ophthalmic Once a day Active lisinopril 10 mg oral tablet (3 sources) Angiotensin Converting Enzyme Inhibitor Start: 03-13-2019 lisinopril 10 mg oral tablet Refills(s) 0 Start Date: 03/13/19 Status: Ordered metoprolol tartrate 25 mg oral tablet (3 sources) beta-Adrenergic Whit Start: 03-13-2019 take 1 tablet by mouth once daily Lopressor 25 mg oral tablet 25 mg = 1 tab(s), Oral, Daily, Refills(s) 0 Start Date: 03/13/19 Status: Ordered take 1 tablet by lavern every twelve hours Metoprolol Tartrate 25 MG 1 tablet with food Orally Twice a day Active Multi Vitamin+ (1 source) Start: 09-26-2022 Multi Vitamin+ Start Date: 09/26/22 Status: Ordered netarsudil 0.2 mg/ml ophthalmic solution (2 sources) Rho Kinase Inhibitor Start: 03-13-2019 Rhopressa 0.02% ophthalmic solution Refill(s) 0 Start Date: 03/13/19 Status: Ordered tamsulosin hydrochloride 0.4 mg oral capsule (2 sources) alpha-Adrenergic Whit Start: 03-07-2022 take 1 capsule by mouth twice daily tamsulosin 0.4 mg Cap 0.4 mg = 1 cap(s), Oral, BID, # 180 cap(s), Refills(s) 3, [facility], 160, cm, 10/16/21 14:26:00 EST, Height/Length Dosing, 94.4, kg, 10/16/21 14:26:00 EST, Weight Dosing Start Date: 03/07/22 Status: Ordered 12 hr timolol 5 mg/ml ophthalmic solution (1 source) beta-Adrenergic Whit Start: 03-13-2019 timolol Opth 0.5% Yvette 5 mL Refill(s) 0 Start Date: 03/13/19 Status: Ordered timolol Opth 0.5% Yvette 5 mL (1 source) Start: 03-13-2019 timolol Opth 0 .5% Yvette 5 mL Refill(s) 0 Start Date: 03/13/19 Status: Ordered Completed/Discontinued Medications Medication Drug Class(es) Dates Sig (Normalized) Sig (Original) acetaminophen 325 mg / oxyCODONE hydrochloride 5 mg oral tablet (2 sources) Opioid Agonist Start: 12-25-2016 take 1-2 tablets by mouth every four to six hours as needed Percocet 5-325 MG 1-2 tablet as needed Orally every 4-6 hrs December, Not-Taking cephalexin 500 mg oral tablet (1 source) Cephalosporin Antibacterial Start: 03-23-2021 take 1 tablet by mouth every twelve hours Cephalexin 500 MG 1 tablet Orally every 12 hrs for 10 day(s) Feb, Not-Taking hydrOXYzine pamoate 25 mg oral capsule (2 sources) Antihistamine Start: 12-25-2016 Vistaril 25 MG 1-2 capsule as needed Orally every 6-8 hrs for 30 day(s) December, Not-Taking meloxicam 15 mg oral tablet (5 sources) Nonsteroidal Anti-inflammatory Drug Start: 04-09-2017 take 1 tablet by mouth every twenty-four hours Meloxicam 15 MG 1 tablet Orally Once a day for 30 day(s) Jun, Not-Taking rivaroxaban 10 mg oral tablet (1 source) Factor Xa Inhibitor Start: 12-25-2016 take 1 tablet by mouth every twenty-four hours Xarelto 10 MG 1 tablet Orally Once a day for 30 day(s) December, Not-Taking Problems Active Problems Problem Classification Problem Date Documented Da te Episodic/Chronic Biliary tract disease (2 sources) Biliary calculus 03-13-2019 Episodic Cancer of colon (2 sources) Carcinoma of colon, stage I 03-13-2019 Chronic Congestive heart failure; nonhypertensive (1 source) Unspecified diastolic (congestive) heart failure; Translations: [UNSPECIFIED DIASTOLIC HEART FAILURE] Onset: 09-28-2022 Chronic Coronary atherosclerosis and other heart disease (3 sources) Chronic ischemic heart disease, unspecified; Translations: [Angina pectoris, unspecified] Onset: 09-20-2022 Chronic Disorders of lipid metabolism (7 sources) Hypercholesterolemia ; Translations: [Hyperlipidemia, unspecified] Onset: 09-20-2022 03-13-2019 Chronic Essential hypertension (3 sources) Hypertensive disorder; Translations: [Essential (primary) hypertension] Onset: 09-20-2022 03-13-2019 Chronic Hyperplasia of prostate (4 sources) Benign prostatic hypertrophy with outflow obstruction; Translations: [Benign prostatic hyperplasia with lower urinary tract symptoms] Onset: 04-16-2022 Chronic Hypertension with complications and secondary hypertension (1 source) Hypertensive heart disease with heart failure; Translations: [HTN HEART DISEASE W/HEART FAIL] Onset: 09-28-2022 Chronic Nutritional deficiencies (1 source) Vitamin D deficiency, unspecified; Translations: [VITAMIN D DEFICIENCY UNSPECIFIED] Onset: 09-28-2022 Chronic Osteoarthritis (2 sources) Osteoarthritis of right knee joint; Translations: [Unilateral primary osteoarthritis, right knee] Chronic Other and ill-defined heart disease (1 source) Cardiomegaly; Translations: [CARDIOMEGALY] Onset: 09-28-2022 Chronic Other connective tissue disease (1 source) History of total hip arthroplasty; Translations: [Presence of left artificial hip joint] Chronic Other connective tissue disease (1 source) History of repair of hip joint; Translations: [Presence of left artificial hip joint] Chronic Other diseases of bladder and urethra (4 sources) Male urethral stricture; Translations: [Unspecified urethral stricture, male, unspecified site] Onset: 04-16-2022 Episodic Other diseases of kidney and ureters (1 source) Urinary tract obstruction; Translations: [Other obstructive and reflux uropathy] Onset: 04-16-2022 Episodic Other gastrointestinal disorders (2 sources) Scrotal mass 05-18-2019 Episodic Other male genital disorders (2 sources) Disorder of male genital organ 10-16-2021 Episodic Other male genital disorders (2 sources) Spermatocele 11-02-2019 Episodic Other male genital disorders (2 sources) Testicular mass 03-13-2019 Episodic Other nervous system disorders (1 source) Chronic pain; Translations: [Other chronic pain] Chronic Other non-traumatic joint disorders (1 source) Hip pain; Translations: [Pain in left hip] Episodic Other nutritional; endocrine; and metabolic disorders (1 source) Obese class II; Translations: [Body mass index (BMI) 36.0-36.9, adult] Onset: 04-16-2022 Chronic Other nutritional; endocrine; and metabolic disorders (2 sources) Body mass index 30+ - obesity 04-16-2022 Chronic Vanessa-; endo-; and myocarditis; cardiomyopathy (except that caused by tuberculosis or sexually transmitted disease) (2 sources) Pericarditis 03-13-2019 Episodic Residual codes; unclassified (2 sources) Sleep apnea 03-13-2019 Chronic Residual codes; unclassified (1 source) Sleep apnea, unspecified; Translations: [SLEEP APNEA UNSPECIFIED] Onset: 09-20-2022 Chronic Retinal detachments; defects; vascular occlusion; and retinopathy (2 sources) Retinal detachment 03-13-2019 Episodic Spondylosis; intervertebral disc disorders; other back problems (1 source) Low back pain; Translations: [Low back pain] Episodic Past or Other Problems Problem Classification Problem Date Documented Da te Episodic/Chronic Calculus of urinary tract (5 sources) Kidney stone; Translations: [Calculus of kidney] Onset: 04-16-2022 Episodic Cancer of colon (1 source) Personal history of other malignant neoplasm of large intestine; Translations: [PERS HX OTH MALIG NEOPLSM LG INTEST] Onset: 09-20-2022 Episodic Coronary atherosclerosis and other heart disease (1 source) Presence of aortocoronary bypass graft; Translations: [PRESENCE AORTOCORONARY BYPASS GRAFT] Onset: 09-20-2022 Episodic Diabetes mellitus without complication (1 source) Other abnormal glucose; Translations: [OTHER ABNORMAL GLUCOSE] Onset: 09-28-2022 Episodic Genitourinary symptoms and ill-defined conditions (12 sources) Nocturia; Translations: [Retention of urine] Onset: 09-18-2022 10-16-2021 Episodic Other aftercare (1 source) Other prison (current) drug therapy; Translations: [OTH GROUP HOME CURRENT DRUG THERAPY] Onset: 09-20-2022 Episodic Other aftercare (1 source) 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; Translations: [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] Onset: 09-20-2022 Episodic Other male genital disorders (2 sources) Hydrocele Resolved: 08-26[birth year]1989 03-13-2019 Episodic Other screening for suspected conditions (not mental disorders or infectious disease) (1 source) Encounter for screening for malignant neoplasm of prostate; Translations: [ENC SCREEN MALIG NEOPLASM PROSTATE] Onset: 09-28-2022 Episodic Residual codes; unclassified (1 source) Acquired absence of other specified parts of digestive tract; Translations: [ACQ ABSENCE OTH PART DIGESTV TRACT] Onset: 09-20-2022 Episodic Unclassified (1 source) Contact with and (suspected) exposure to covid-19 Z20.822 Urinary tract infections (3 sources) Urinary tract infectious disease; Translations: [Urinary tract infection, site not specified] Onset: 09-20-2022 Episodic Viral infection (1 source) COVID-19 Results Test Name Value Interpretation Reference Range Facility COVID/FLU RT-PCRon 3 SARS-CoV-2 (COVID-19) RNA TERRIE+probe Ql (Unsp spec) Positive [employer] Other COVID/FLU RT-PCR Negative [employer] Other XR KNEE RT 3Von 01-23-2023 XR KNEE RT 3V EXAM: XR KNEE RT 3V HISTORY: Osteoarthritis of knee COMPARISON: None TECHNIQUE: 3 views FINDINGS: No acute fracture or dislocation. Moderate to severe degenerative changes. Unremarkable soft tissues. IMPRESSION: Moderate to severe degenerative changes. Electronically authenticated by: CALVIN BARNES Date: 2023-01-23 13:29 Normal [facility] Screenson 09-27-2022 Screens [id number] Normal [facility] Patient Educationon 09-26-19 23 Patient Education Infectious Disease Infection Prevention in the Home If you have an infection, may have been exposed to an infection, or are taking care of someone who has an infection, it is important to know how to keep the infection from spreading. Follow your health care provider's instructions and use these guidelines to help stop the spread of infection. How infections are spread In order for an infection to spread, the following must be present: ? A germ. This may be a virus, bacteria, fungus, or parasite. ? A place for the germ to live. This may be: ? On or in a person, animal, plant, or food. ? In soil or water. ? On surfaces, such as a door handle. ? A person or animal who can develop a disease if the germ enters the body (host). The host does not have resistance to the germ. ? A way for the germ to enter the host. This may occur by: ? Direct contact with an infected person or animal. This can happen through shaking hands or hugging. Some germs can also travel through the air and spread to others. This can happen when an infected person coughs or sneezes on or near other people. ? Indirect contact. This occurs when the germ enters the host through contact with an infected object. Examples include: ? Eating or drinking food or water that has the germ (is contaminated). ? Touching a contaminated surface with your hands, and then touching your face, eyes, nose, or mouth. Supplies needed: ? Soap. ? Alcohol-based hand rodent exterminator. ? Standard cleaning products. ? Disinfectants, such as bleach. ? Reusable cleaning cloths, sponges, or paper towels. ? Disposable or reusable utility gloves. How to prevent infection from spreading There are several things that you can do to help prevent infection from spreading. Take these general actions Everyone should take the following actions to prevent the spread of infection: ? Wash your hands often with soap and water for at least 20 seconds. If soap and water are not available, use alcohol-based hand rodent exterminator. ? Avoid touching your face, mouth, nose, or eyes. ? Cough or sneeze into a tissue, sleeve, or elbow instead of into your hand or into the air. ? If you cough or sneeze into a tissue, throw it away immediately and wash your hands. Keep your bathroom clean ? Provide soap. ? Change towels and washcloths frequently. ? Change toothbrushes often and store them separately in a clean, dry place. ? Clean and disinfect all surfaces, including the toilet, floor, tub, shower, and sink. ? Do not share personal items, such as razors, toothbrushes, deodorant, driscoll, brushes, towels, and washcloths. Maintain hygiene in the kitchen ? Wash your hands before and after preparing food and before you eat. ? Clean the inside of your refrigerator each week. ? Keep your refrigerator set at 40?F (4?C) or less, and set your freezer at 0?F (?18?C) or less. ? Keep work surfaces clean. Disinfect them regularly. ? Wash your dishes in hot, soapy water. Air-dry your dishes or use a bag printer. ? Do not share dishes or eating utensils. Handle food safely ? Store food carefully. ? Refrigerate leftovers promptly in covered containers. ? Throw out stale or spoiled food. ? Thaw foods in the refrigerator or microwave, not at room temperature. ? Serve foods at the proper temperature. Do not eat raw meat. Make sure it is cooked to the appropriate temperature. Cook eggs until they are firm. ? Wash fruits and vegetables under running water. ? Use separate cutting boards, plates, and utensils for raw foods and cooked foods. ? Use a clean spoon each time you sample food while cooking. Do laundry the right way ? Wear gloves if laundry is visibly soiled. ? Do not shake soiled laundry. Doing that may send germs into the air. ? Wash laundry in hot water. ? If you cannot wash the laundry right away, place it in a plastic bag and wash it as soon as possible. Be careful around animals and pets ? Wash your hands before and after touching animals. ? If you have a pet, ensure that your pet stays clean. Do not let people with weak immune systems touch bird droppings, fish tank water, or a litter box. ? If you have a pet cage or litter box, be sure to clean it every day. ? If you are sick, stay away from animals and have someone else care for them if possible. How to clean and disinfect objects and surfaces Precautions ? Some disinfectants work for certain germs and not others. Read the silverware supervisor's instructions or read online resources to determine if the product you are using will work for the germ you are trying to remove. ? If you choose to use bleach, use it safely. Never mix it with other cleaning products, especially those that contain ammonia. This mixture can create a dangerous gas that may be deadly. ? Keep proper movement of fresh air in your home (ventilation). ? Pour used mop water down the utility sink or toil (more content not included)... Normal [facility] Urology Office/Clinic Noteon 09-26-2022 Urology Office/Clinic Note Chief Complaint pt here for f/u from [facility] due to hematuria HPI Staff Pt is here for a hospital f/u from [facility] 09/18/[address] scan done 09/18/22 shows no renal calculus or hydronephrosis identified. limited evaluation of the distal ureters due to streak artifact from orthopedic hardware. Pts previous DX: BPH with urinary obstruction, kidney stone, nocturia, scrotal cyst, spermatocele, testicular mass, urinary retention, urethral stricture in male. Pt currently taking Flomax 0.4 mg BID. S/P cysto 03/17/19. Dysuria:denies Incomplete bladder emptying: denies Hematuria: yes visible blood as of 09/18/22. Pt has seen none since e.r visit. UA shows none Frequency: yes, every 2 hours Urgency: sometimes Nocturia: 1x per night on average Stream: weak stream, no stop start, no hesitation Leaking: denies Post void dripping: denies Wearing pads/ Depends: yes daily pads, most days uses just one Urge incontinence: yes Stress incontinence: denies Incontinence without Sensory Awareness: denies Abdominal pain: denies Flank pain: denies Sexual complaints: denies History of Present Illness Tests Reviewed: Reviewed UA. I have reviewed and verified the staff HPI to be accurate for this encounter. I have reviewed the previous health record information and history for this patient from Dr. Valentin There have been no associated fever, chills, flank pain, or blood in the urine. Denies any urinary infections since last encounter. Review of Systems PHQ Score Initial Depression Screen Score: 0 ROS - Provider Constitutional: denies weight loss, denies hot flashes. Eyes: denies eye problems. Gastrointestinal: denies nausea, denies vomiting. Cardiovascular: denies chest pain or angina. Integumentary: no dryness Musculoskeletal: denies musculoskeletal symptoms. ENMT: denies otolaryngeal symptoms. Respiratory: no shortness of breath. Heme/Lymph: denies easy bleeding tendency, denies easy bruising tendency. Psychiatric: no confusion, no anxiety. Genitourinary: denies dysuria, denies hematuria, denies discharge, denies urinary frequency, denies urinary hesitancy, denies nocturia, denies incontinence, denies genital sores, denies decreased libido, and denies erectile dysfunction. Physical Exam Vitals & Measurements HR: 52(Peripheral) BP: 173/74 HT: 63 in HT: 160 cm WT: 97.3 kg WT: 214.06 lb BMI: 38.01 General Appearance: alert, no distress, well nourished, well developed male. Genitourinary: normal scrotum, normal testes, normal urethra, normal epididymis, normal vas deferens/spermatic cord. Flank Pain: none. Bladder: nonpalpable. Assessment/Plan 1. BPH with urinary obstruction (N40.1: Benign prostatic hyperplasia with lower urinary tract symptoms) Currently taking Flomax 0.4mg BID stated his stream is strong and feels like he emptying his bladder completely. Denies a delay in his stream starting Will continue Flomax and monitor for any changes in urination. Pt agrees with plan. 2. Kidney stone (N20.0: Calculus of kidney) CT done 09/18/22 showed neg for stones or hydro 3. Urethral stricture in male (N35.919: Unspecified urethral stricture, male, unspecified site) S/P Cysto/UD 06/15/21 pt stated back in Nov he CIC due to difficulties with urination but has not CIC since then. 4. UTI (urinary tract infection) (N39.0: Urinary tract infection, site not specified) PT was diagnosed with UTI on 09/18/22 UA today is neg for an infection today Pt was given Levofloxacin at [facility] ER and he could not tolerate this. He was never really treated for his infection. denies any pain or burning currently or at the time of infection Will start pt on Doxycycline 100mg BID for 10 days. Discussed the medication side effects, and the patient will monitor closely for these, as well as for symptom improvement. If severe side effects occur, the medication should be stopped and the office notified. 5. Gross hematuria (R31.0: Gross hematuria) PT went to [facility] ER on 09/18/22 due to hematuria. he had infection at that time. ?from cic briefly prior to this episode. UA today is neg for blood pt stated he has not seen any visible blood since ER visit denies any hx of gross hematuria No further hematuria w/u is needed at this time, due to gross hematuria was because of UTI. Pt knows to monitor for any visible blood or blood clots in his urine and if he develops either or he is to contact our office Follow-up With When Contact Information Reno VALENTIN MD, URL Within 3 months [facility] [address] [place] [address]- Additional Instructions: UTI F/U Patient Education Infection Prevention in the Home I, Merle Miranda, personally scribed for Dr. Valentin on 09/26/2022 14:16:39. . Documentation recorded by the scribe, Merle Miranda, accurately reflects the services(s) I performed and decisions made by me. Aut (more content not included)... Normal [facility] Comment on above: Result Comment: Elec tronically Signed By: Reno VALENTIN MD\.br\Date and Time Signed: 09/26/22 14:20 EST\.br\Electronically Co-Signed By: Mrele Miranda\.br\Date and Time Co-Signed: 09/26/22 14:16 EST INSULINon 09-25-2022 Insulin 6.0 uIU/mL Normal 2.6-24.9 [facility] Comment on above: Performed By: #### I NSULIN #### [facility] [address] [address] [address] Wally Zapien BNPon 09-24-2022 Natriuretic peptide B (Bld) [Mass/Vol] 110.0 pg/mL Normal <=1,800.0 [facility] Comment on above: Performed By: #### U RCX #### [facility] [address] [address] [address] Wally Zapien CBC AUTO DIFFon 09-24-2022 BASO # 0.0 103/ul Normal 0.0-0.1 [facility] Comment on above: Performed By: #### C BC #### [facility] [address] [place] [address] Dr. Wally Zapien Basophils/100 WBC (Bld) 1.0 % Normal 0.2-2.0 [facility] Comment on above: Performed By: #### C BC #### [facility] [address] [place] [address] Dr. Wally Zapien EO # 0.2 103/ul Normal 0.0-0.7 [facility] Comment on above: Performed By: #### C BC #### [facility] [address] [place] [address] Dr. Wally Zapien Eosinophils/100 WBC (Bld) 4.2 % Normal 0.9-7.0 [facility] Comment on above: Performed By: #### C BC #### [facility] [address] [place] [address] Dr. Wally Zapien Erythrocyte distribution width (RBC) [Ratio] 12.5 % Normal 11.0-15.0 [facility] Comment on above: Performed By: #### C BC #### [facility] [address] [place] [address] Dr. Wally Zapien Hematocrit (Bld) [Volume fraction] 43.7 % Normal 42.0-54.0 [facility] Comment on above: Performed By: #### C BC #### [facility] [address] [place] [address] Dr. Wally Zapien Hemoglobin (Bld) [Mass/Vol] 15.4 g/dL Normal 14.0-18.0 [facility] Comment on above: Performed By: #### C BC #### [facility] [address] [place] [address] Dr. Wally Zapien IG # 0.02 10e3/ul Normal 0.00-0.03 [facility] Comment on above: Performed By: #### C BC #### [facility] [address] [place] [address] Dr. Wally Zapien IG % 0.5 % Normal 0.0-0.5 [facility] Comment on above: Performed By: #### C BC #### [facility] [address] [place] [address] Dr. Wally Zapien LYMPH # 1.7 103/ul Normal 1.2-3.8 [facility] Comment on above: Performed By: #### C BC #### [facility] [address] [place] [address] Dr. Wally Zapien Lymphocytes/100 WBC (Bld) 42.6 % Normal 20.5-60.0 [facility] Comment on above: Performed By: #### C BC #### [facility] [address] [place] [address] Dr. Wally Zapien MANUAL DIFF REQ NO Normal [facility] Comment on above: Performed By: #### C BC #### [facility] [address] [place] [address] Dr. Wally Zapien MCH (RBC) [Entitic mass] 31.6 pg Normal 25.9-34.0 [facility] Comment on above: Performed By: #### C BC #### [facility] [address] [place] [address] Dr. Wally Zapien MCHC (RBC) [Mass/Vol] 35.2 g/dL Normal 29.9-35.2 [facility] Comment on above: Performed By: #### C BC #### [facility] [address] [place] [address] Dr. Wally Zapien MCV (RBC) [Entitic vol] 89.5 fL Normal 80.0-94.0 [facility] Comment on above: Performed By: #### C BC #### [facility] [address] [place] [address] Dr. Wally Zapien MONO # 0.4 103/ul Normal 0.3-0.8 [facility] Comment on above: Performed By: #### C BC #### [facility] [address] [place] [address] Dr. Wally Zapien Monocytes/100 WBC (Bld) 9.2 % Normal 1.7-12.0 [facility] Comment on above: Performed By: #### C BC #### [facility] [address] [address] [address] Wally Zapien NEUT # 1.7 103/ul Normal 1.4-6.5 [facility] Comment on above: Performed By: #### C BC #### [facility] [address] [address] [address] Wally Zapien Neutrophils/100 WBC (Bld) 42.5 % Critically low 43.0-75.0 [facility] Comment on above: Performed By: #### C BC #### [facility] [address] [place] [address] Dr. Wally Zapien Platelet mean volume (Bld) [Entitic vol] 9.9 fL Normal 9.5-13.5 [facility] Comment on above: Performed By: #### C BC #### [facility] [address] [place] [address] Dr. Wally Zapien PLT 149 103/ul Critically low 150-450 [facility] Comment on above: Performed By: #### C BC #### [facility] [address] [place] [address] Dr. Wally Zapien RBC 4.88 106/ul Normal 4.70-6.10 [facility] Comment on above: Performed By: #### C BC #### [facility] [address] [place] [address] Dr. Wally Zapien WBC 4.0 103/ul Normal 4.0-11.0 [facility] Comment on above: Performed By: #### C BC #### [facility] [address] [place] [address] Dr. Wally Zapien CULTURE URINEon 09-24-2022 CULTURE URINE Culture Observations: LIGHT GROWTH OF MIXED SKIN GENNA. NO POTENTIAL PATHOGENS SEEN. Normal [facility] Comment on above: Performed By: #### U RCX #### [facility] [address] [place] [address] Dr. Wally Zapien FREE THYROXINE INDEX T7on FTI 2.52 Normal 1.30-4.50 [facility] Comment on above: Performed By: #### U RCX #### [facility] [address] [address] [address] Wally Zapien T3U 36.0 % Normal 33.0-40.0 [facility] Comment on above: Performed By: #### U RCX #### [facility] [address] [address] [address] Wally Zapien T4 [Mass/Vol] 7.00 ug/dL Normal 4.50-12.10 [facility] Comment on above: Performed By: #### U RCX #### [facility] [address] [address] [address] Wally Zapien GLYCOHEMOGLOBIN A1Con 2022 ADA RECOMMENDATION SEE BELOW Normal [facility] Comment on above: Result Comment: ADA RECOMMENDED LIMIT 4.0 - 6.0 ADA THERAPEUTIC TARGET < 7.0 ACTION SUGGESTED > 7.0 Performed By: #### A 1C #### [facility] [address] [address] [address] Wally Zapien Glucose [Mass/Vol] 123 mg/dL Normal [facility] Comment on above: Performed By: #### A 1C #### [facility] [address] [place] [address] Dr. Wally Zapien HbA1c (Bld) [Mass fraction] 5.9 % Normal 4.5-6.2 [facility] Comment on above: Performed By: #### A 1C #### [facility] [address] [place] [address] Dr. Wally Zapien LIPID PROFILEon 09-24-2022 CHOL-HDL RATIO NORM SEE BELOW Normal [facility] Comment on above: Result Comment: 3.3 - 4.4 LOW RISK 4.4 - 7.1 AVERAGE RISK 7.1 - 11.0 MODERATE RISK >11.0 HIGH RISK Performed By: #### U RCX #### [facility] [address] [place] [address] Dr. Wally Zapien Cholesterol [Mass/Vol] 117 mg/dL Normal <=200 [facility] Comment on above: Performed By: #### U RCX #### [facility] [address] [address] [address] Wally Zapien Cholesterol in HDL [Mass/Vol] 38 mg/dL Critically low 40-60 [facility] Comment on above: Performed By: #### U RCX #### [facility] [address] [address] [address] Wally Zapien Cholesterol in LDL [Mass/Vol] 32.6 mg/dL Normal [facility] Comment on above: Performed By: #### U RCX #### [facility] [address] [address] [address] Wally Zapien Cholesterol.total/Ch olesterol in HDL [Mass ratio] 3.1 {ratio} Normal [facility] Comment on above: Performed By: #### U RCX #### [facility] [address] [address] [address] Wally Zapien HDL NORMAL > or = 60 mg/dl - LOW CARDIOVASCULAR RISK <40 mg/dl - HIGH CARDIOVASCULAR RISK Normal [facility] Comment on above: Performed By: #### U RCX #### [facility] [address] [address] [address] Wally Zapien LDL CALC NORMAL SEE BELOW Normal [facility] Comment on above: Result Comment: <100 mg/dl OPTIMAL 100 - 129 mg/dl NEAR OR ABOVE OPTIMAL 130 - 159 mg/dl BORDERLINE HIGH 160 - 189 mg/dl HIGH >190 mg/dl VERY HIGH Performed By: #### U RCX #### [facility] [address] [address] [address] Wally Zapien Triglyceride [Mass/Vol] 232 mg/dL Critically high <=150 [facility] Comment on above: Performed By: #### U RCX #### [facility] [address] [address] [address] Wally Zapien VLDL CALC 46.4 mg/dL Normal [facility] Comment on above: Performed By: #### U RCX #### [facility] [address] [address] [address] Wally Zapien PROF 14(COMP METB)on 023 Albumin [Mass/Vol] 3.8 g/dL Normal 3.4-5.0 [facility] Comment on above: Performed By: #### B PROGRAM FACILITATOR, T7, LIPID, TSH, CMP, URIC #### [facility] [address] [place] [address] Dr. Wally Zapien Albumin/Globulin [Mass ratio] 1.2 {ratio} Normal [facility] Comment on above: Performed By: #### B PROGRAM FACILITATOR, T7, LIPID, TSH, CMP, URIC #### [facility] [address] [place] [address] Dr. Wally Zapien ALP [Catalytic activity/Vol] 80 U/L Normal 46-116 [facility] Comment on above: Performed By: #### B PROGRAM FACILITATOR, T7, LIPID, TSH, CMP, URIC #### [facility] [address] [place] [address] Dr. Wally Zapien ALT [Catalytic activity/Vol] 34 U/L Normal 16-63 [facility] Comment on above: Performed By: #### B PROGRAM FACILITATOR, T7, LIPID, TSH, CMP, URIC #### [facility] [address] [place] [address] Dr. Walyl Zapien Anion gap [Moles/Vol] 11.3 mmol/L Normal [facility] Comment on above: Performed By: #### B PROGRAM FACILITATOR, T7, LIPID, TSH, CMP, URIC #### [facility] [address] [place] [address] Dr. Wally Zapien AST [Catalytic activity/Vol] 24 U/L Normal 15-37 [facility] Comment on above: Performed By: #### B PROGRAM FACILITATOR, T7, LIPID, TSH, CMP, URIC #### [facility] [address] [place] [address] Dr. Wally Zapien Bilirubin [Mass/Vol] 1.0 mg/dL Normal 0.2-1.0 [facility] Comment on above: Performed By: #### B PROGRAM FACILITATOR, T7, LIPID, TSH, CMP, URIC #### [facility] [address] [place] [address] Dr. Wally Zapien Calcium [Mass/Vol] 8.5 mg/dL Normal 8.5-10.1 [facility] Comment on above: Performed By: #### B PROGRAM FACILITATOR, T7, LIPID, TSH, CMP, URIC #### [facility] [address] [place] [address] Dr. Wally Zapien Chloride [Moles/Vol] 105 mmol/L Normal 98-107 [facility] Comment on above: Performed By: #### B PROGRAM FACILITATOR, T7, LIPID, TSH, CMP, URIC #### [facility] [address] [place] [address] Dr. Wally Zapien CO2 [Moles/Vol] 28.6 mmol/L Normal 21.0-32.0 [facility] Comment on above: Performed By: #### B PROGRAM FACILITATOR, T7, LIPID, TSH, CMP, URIC #### [facility] [address] [place] [address] Dr. Wally Zapien Creatinine [Mass/Vol] 0.74 mg/dL Normal 0.70-1.30 [facility] Comment on above: Performed By: #### B PROGRAM FACILITATOR, T7, LIPID, TSH, CMP, URIC #### [facility] [address] [place] [address] Dr. Wally Zapien EGFR-AF [place] >60 Normal >=60 [facility] Comment on above: Performed By: #### B PROGRAM FACILITATOR, T7, LIPID, TSH, CMP, URIC #### [facility] [address] [place] [address] Dr. Wally Zapien EGFR-NON AF [place] >60 Normal >=60 [facility] Comment on above: Performed By: #### B PROGRAM FACILITATOR, T7, LIPID, TSH, CMP, URIC #### [facility] [address] [place] [address] Dr. Wally Zapien Globulin (S) [Mass/Vol] 3.2 g/dL Normal [facility] Comment on above: Performed By: #### B PROGRAM FACILITATOR, T7, LIPID, TSH, CMP, URIC #### [facility] [address] [place] [address] Dr. Wally Zapien Glucose [Mass/Vol] 102 mg/dL Normal 74-106 [facility] Comment on above: Performed By: #### B PROGRAM FACILITATOR, T7, LIPID, TSH, CMP, URIC #### [facility] [address] [place] [address] Dr. Wally Zapien Potassium [Moles/Vol] 3.9 mmol/L Normal 3.5-5.1 [facility] Comment on above: Performed By: #### B PROGRAM FACILITATOR, T7, LIPID, TSH, CMP, URIC #### [facility] [address] [place] [address] Dr. Wally Zapien Protein [Mass/Vol] 7.0 g/dL Normal 6.4-8.2 [facility] Comment on above: Performed By: #### B PROGRAM FACILITATOR, T7, LIPID, TSH, CMP, URIC #### [facility] [address] [place] [address] Dr. Wally Zapien Sodium [Moles/Vol] 141 mmol/L Normal 136-145 [facility] Comment on above: Performed By: #### B PROGRAM FACILITATOR, T7, LIPID, TSH, CMP, URIC #### [facility] [address] [place] [address] Dr. Wally Zapien Urea nitrogen [Mass/Vol] 19.0 mg/dL Critically high 7.0-18.0 [facility] Comment on above: Performed By: #### B PROGRAM FACILITATOR, T7, LIPID, TSH, CMP, URIC #### [facility] [address] [place] [address] Dr. Wally Zapien Urea nitrogen/Creatinine [Mass ratio] 25.7 mg/mg Normal [facility] Comment on above: Performed By: #### B PROGRAM FACILITATOR, T7, LIPID, TSH, CMP, URIC #### [facility] [address] [place] [address] Dr. Wally Zapien TSHon 09-24-2022 TSH 1.535 uIU/mL Normal 0.358-3.740 [facility] Comment on above: Performed By: #### U RCX #### [facility] [address] [place] [address] Dr. Wally Zapien UA RANDOM W/MICROSCOPICon BACTERIA NONE SEEN Normal NONE SEEN [facility] Comment on above: Performed By: #### U RCX #### [facility] [address] [address] [address] Wally Zapien Bilirubin Ql (U) Negative Normal NEGATIVE [facility] Comment on above: Performed By: #### U RCX #### [facility] [address] [address] [address] Wally Zapien CAST NONE SEEN Normal NONE SEEN [facility] Comment on above: Performed By: #### U RCX #### [facility] [address] [address] [address] Wally Zapien Clarity (U) CLEAR Normal CLEAR [facility] Comment on above: Performed By: #### U RCX #### [facility] [address] [place] [address] Dr. Wally Zapien Color (U) YELLOW Normal YELLOW [facility] Comment on above: Performed By: #### U RCX #### [facility] [address] [place] [address] Dr. Wally Zapien Crystals LM Nom (Urine sed) NONE SEEN Normal NONE SEEN [facility] Comment on above: Performed By: #### U RCX #### [facility] [address] [place] [address] Dr. Wally Zapien Epithelial cells LM Ql (Urine sed) FEW Abnormal NONE SEEN /RARE [facility] Comment on above: Performed By: #### U RCX #### [facility] [address] [place] [address] Dr. Wally Zapien Glucose Ql (U) Negative Normal NEGATIVE [facility] Comment on above: Performed By: #### U RCX #### [facility] [address] [place] [address] Dr. Wally Zapien Hemoglobin Ql (U) TRACE-INTACT Abnormal NEGATIVE [facility] Comment on above: Performed By: #### U RCX #### [facility] [address] [place] [address] Dr. Wally Zapien Ketones Ql (U) Negative Normal NEGATIVE [facility] Comment on above: Performed By: #### U RCX #### [facility] [address] [place] [address] Dr. Wally Zapien LEUKOCYTES Negative Normal NEGATIVE [facility] Comment on above: Performed By: #### U RCX #### [facility] [address] [place] [address] Dr. Wally Zapien MUCOUS LARGE Abnormal NONE SEEN [facility] Comment on above: Performed By: #### U RCX #### [facility] [address] [place] [address] Dr. Wally Zapien Nitrite Ql (U) Negative Normal NEGATIVE [facility] Comment on above: Performed By: #### U RCX #### [facility] [address] [place] [address] Dr. Wally Zapien pH (U) 6.5 [pH] Normal 5-9 [facility] Comment on above: Performed By: #### U RCX #### [facility] [address] [place] [address] Dr. Wally Zapien RBC 2-5 Abnormal 0-2 [facility] Comment on above: Performed By: #### U RCX #### [facility] [address] [place] [address] Dr. Wally Zapien SPEC GRAVITY 1.025 Normal 1.005-<=1.025 [facility] Comment on above: Performed By: #### U RCX #### [facility] [address] [place] [address] Dr. Wally Zapien UA PROTEIN TRACE Normal NEGATIVE/ TRACE [facility] Comment on above: Performed By: #### U RCX #### [facility] [address] [place] [address] Dr. Wally Zapien Urobilinogen Qn (U) 1.0 {Suma'U}/dL Normal 0.2 - 1. 0 [facility] Comment on above: Performed By: #### U RCX #### [facility] [address] [place] [address] Dr. Wally Zapien WBC 0-2 Abnormal NONE SEEN [facility] Comment on above: Performed By: #### U RCX #### [facility] [address] [place] [address] Dr. Wally Zapien URIC ACID SERUMon 09-24-2022 Urate [Mass/Vol] 3.7 mg/dL Normal 3.5-7.2 [facility] Comment on above: Performed By: #### B PROGRAM FACILITATOR, T7, LIPID, TSH, CMP, URIC #### [facility] [address] [place] [address] Dr. Wally Zapien VITAMIN D 25 OHon 09-24-2022 VIT D 25-OH 42.6 ng/mL Normal [facility] Comment on above: Performed By: #### U RCX #### [facility] [address] [place] [address] Dr. Wally Zapien VIT D RANGES SEE BELOW Normal [facility] Comment on above: Result Comment: <20 ng/mL Vit D deficient 20 - <30 ng/mL Vit D insufficient 30 - 100 ng/mL Vit D sufficient >100 ng/mL Potential Toxicity Performed By: #### U RCX #### [facility] [address] [place] [address] Dr. Wally Zapien ED Note-Physicianon 09-19-19 23 ED Note-Physician [id number] #1.00CD:127 Normal [facility] Lab Reportson 09-19-2022 Lab Reports [id number] 8#1.00CD:127 Normal [facility] RAD - CT Reporton 09-19-2022 RAD - CT Report [id number] 3#1.00CD:127 Normal [facility] CBC AUTO DIFFon 09-18-2022 BASO # 0.0 103/ul Normal 0.0-0.1 [facility] Comment on above: Performed By: #### C BC #### [facility] [address] [place] [address] Dr. Wally Zapien Basophils/100 WBC (Bld) 0.7 % Normal 0.2-2.0 [facility] Comment on above: Performed By: #### C BC #### [facility] [address] [place] [address] Dr. Wally Zapien EO # 0.1 103/ul Normal 0.0-0.7 [facility] Comment on above: Performed By: #### C BC #### [facility] [address] [place] [address] Dr. Wally Zapien Eosinophils/100 WBC (Bld) 2.8 % Normal 0.9-7.0 [facility] Comment on above: Performed By: #### C BC #### [facility] [address] [place] [address] Dr. Wally Zapien Erythrocyte distribution width (RBC) [Ratio] 12.7 % Normal 11.0-15.0 [facility] Comment on above: Performed By: #### C BC #### [facility] [address] [place] [address] Dr. Wally Zapien Hematocrit (Bld) [Volume fraction] 44.1 % Normal 42.0-54.0 [facility] Comment on above: Performed By: #### C BC #### [facility] [address] [place] [address] Dr. Wally Zapien Hemoglobin (Bld) [Mass/Vol] 15.3 g/dL Normal 14.0-18.0 [facility] Comment on above: Performed By: #### C BC #### [facility] [address] [place] [address] Dr. Wally Zapien IG # 0.01 10e3/ul Normal 0.00-0.03 [facility] Comment on above: Performed By: #### C BC #### [facility] [address] [place] [address] Dr. Wally Zapien IG % 0.2 % Normal 0.0-0.5 [facility] Comment on above: Performed By: #### C BC #### [facility] [address] [place] [address] Dr. Wally Zapien LYMPH # 1.8 103/ul Normal 1.2-3.8 [facility] Comment on above: Performed By: #### C BC #### [facility] [address] [place] [address] Dr. Wally Zapien Lymphocytes/100 WBC (Bld) 43.0 % Normal 20.5-60.0 [facility] Comment on above: Performed By: #### C BC #### [facility] [address] [place] [address] Dr. Wally Zapien MANUAL DIFF REQ NO Normal [facility] Comment on above: Performed By: #### C BC #### [facility] [address] [place] [address] Dr. Wally Zapien MCH (RBC) [Entitic mass] 32.1 pg Normal 25.9-34.0 [facility] Comment on above: Performed By: #### C BC #### [facility] [address] [place] [address] Dr. Wally Zapien MCHC (RBC) [Mass/Vol] 34.7 g/dL Normal 29.9-35.2 [facility] Comment on above: Performed By: #### C BC #### [facility] [address] [place] [address] Dr. Wally Zapien MCV (RBC) [Entitic vol] 92.5 fL Normal 80.0-94.0 [facility] Comment on above: Performed By: #### C BC #### [facility] [address] [place] [address] Dr. Wally Zapien MONO # 0.4 103/ul Normal 0.3-0.8 [facility] Comment on above: Performed By: #### C BC #### [facility] [address] [place] [address] Dr. Wally Zapien Monocytes/100 WBC (Bld) 9.2 % Normal 1.7-12.0 [facility] Comment on above: Performed By: #### C BC #### [facility] [address] [place] [address] Dr. Wally Zapien NEUT # 1.9 103/ul Normal 1.4-6.5 [facility] Comment on above: Performed By: #### C BC #### [facility] [address] [place] [address] Dr. Wally Zapien Neutrophils/100 WBC (Bld) 44.1 % Normal 43.0-75.0 [facility] Comment on above: Performed By: #### C BC #### [facility] [address] [address] [address] Wally Zapien Platelet mean volume (Bld) [Entitic vol] 10.4 fL Normal 9.5-13.5 [facility] Comment on above: Performed By: #### C BC #### [facility] [address] [address] [address] Wally Zapien PLT 152 103/ul Normal 150-450 [facility] Comment on above: Performed By: #### C BC #### [facility] [address] [place] [address] Dr. Wally Zapien RBC 4.77 106/ul Normal 4.70-6.10 [facility] Comment on above: Performed By: #### C BC #### [facility] [address] [place] [address] Dr. Wally Zapien WBC 4.2 103/ul Normal 4.0-11.0 [facility] Comment on above: Performed By: #### C BC #### [facility] [address] [place] [address] ABD/PELVIS WO CONon 09-18 CT ABD/PELVIS WO CON EXAMINATION: CT ABD/PELVIS WO CON, 09/18/2022 12:45 PM EST HISTORY: CALCULUS OF KIDNEY COMPARISON: 03/05/2019 TECHNIQUE: CT scan of the abdomen and pelvis was performed without IV contrast. CT dose reduction technique was used, including Automated Exposure Control. ABDOMEN/PELVIS FINDINGS: Lower Chest: The heart is enlarged. Liver: Normal nonenhanced appearance and contour. Biliary/Gallbladder: Multiple small gallstones are present in the gallbladder lumen. Pancreas: Unremarkable. Spleen: Multiple punctate calcifications in the spleen, likely due to remote granulomatous disease. Adrenal Glands: Unremarkable. Kidneys: No renal calculus or hydronephrosis identified. Limited evaluation of the distal ureters due to streak artifact from the left hip prosthesis. Gastrointestinal/Per itoneum: Postoperative changes are present of a partial colonic resection. There are no dilated loops of bowel. The appendix is unremarkable. No free air or free fluid. Vascular: Mild scattered atherosclerotic calcifications are present. Lymph Nodes: No enlarged lymph nodes by CT size criteria. Pelvic Organs: Unremarkable. Bladder: Unremarkable. Bones: No acute osseous abnormality. A left total hip arthroplasty is present. There are moderate multilevel degenerative changes present in the visualized spine, greatest at L5-S1 where there is moderate to severe bilateral neural foraminal stenosis.. Soft tissues: Postoperative changes present at the anterior abdominal wall of a hernia mesh repair. IMPRESSION: 1. No renal calculus or hydronephrosis identified. Limited evaluation of the distal ureters due to streak artifact from orthopedic hardware. 2. Cholelithiasis. 3. Postoperative changes of a partial colonic resection, left total hip arthroplasty and anterior abdominal wall hernia mesh repair. 4. Cardiomegaly. Electronically authenticated by: MAYRA LOPEZ Date: 2022-09-18 13:40 Normal [facility] ER URINE PROFILEon 3 Bilirubin Ql (U) SMALL Abnormal NEGATIVE [facility] Comment on above: Performed By: #### KERRI PADRON #### [facility] [address] [place] [address] Dr. Wally Zapien Clarity (U) SL CLOUDY Abnormal CLEAR [facility] Comment on above: Performed By: #### KERRI PADRON #### [facility] [address] [place] [address] Dr. Wally Zapien Color (U) RED Abnormal YELLOW [facility] Comment on above: Performed By: #### KERRI PDARON #### [facility] [address] [place] [address] Dr. Wally GERBER A micrscopic examination will be performed if indicated. Normal [facility] Comment on above: Performed By: #### KERRI PADRON #### [facility] [address] [address] [address] Wally Zapien Glucose Ql (U) Negative Normal NEGATIVE [facility] Comment on above: Performed By: #### KERRI PADRON #### [facility] [address] [place] [address] Dr. Wally Zapien Hemoglobin Ql (U) LARGE Abnormal NEGATIVE [facility] Comment on above: Performed By: #### BIMAL PADRONRO #### [facility] [address] [place] [address] Dr. Wally Zapien Ketones Ql (U) TRACE Abnormal NEGATIVE [facility] Comment on above: Performed By: #### Olinda WILLIS UMVIANCARO #### [facility] [address] [place] [address] Dr. Wally Zapien LEUKOCYTES TRACE Abnormal NEGATIVE [facility] Comment on above: Performed By: #### Olinda WILLIS UMICRO #### [facility] [address] [place] [address] Dr. Wally Zapien Nitrite Ql (U) Positive Abnormal NEGATIVE [facility] Comment on above: Performed By: #### BIMAL PADRONRO #### [facility] [address] [place] [address] Dr. Wally Zapien pH (U) 5.5 [pH] Normal 5-9 [facility] Comment on above: Performed By: #### BIMAL PADRONRO #### [facility] [address] [place] [address] Dr. Wally Zapien Protein (U) [Mass/Vol] 100 mg/dL Abnormal NEGATIVE/ TRACE [facility] Comment on above: Performed By: #### BIMAL PADRONRO #### [facility] [address] [place] [address] Dr. Wally Zapien SPEC GRAVITY 1.025 Normal 1.005-<=1.025 [facility] Comment on above: Performed By: #### Olinda WILLIS UMICRO #### [facility] [address] [place] [address] Dr. Wally Zapien UR MICRO IND INDICATED Normal [facility] Comment on above: Performed By: #### MANSOOR PADRONICRO #### [facility] [address] [place] [address] Dr. Wally Zapien Urobilinogen Qn (U) 1.0 {Suma'U}/dL Normal 0.2 - 1. 0 [facility] Comment on above: Performed By: #### KERRI PADRON #### [facility] [address] [address] [address] Wally Zapien PROF CHEM 8 (BAS METB)on Anion gap [Moles/Vol] 10.5 mmol/L Normal [facility] Comment on above: Performed By: #### U RCX #### [facility] [address] [address] [address] Wally Zapien Calcium [Mass/Vol] 8.6 mg/dL Normal 8.5-10.1 [facility] Comment on above: Performed By: #### U RCX #### [facility] [address] [address] [address] Wally Zapien Chloride [Moles/Vol] 105 mmol/L Normal 98-107 [facility] Comment on above: Performed By: #### U RCX #### [facility] [address] [place] [address] Dr. Wally Zapien CO2 [Moles/Vol] 28.8 mmol/L Normal 21.0-32.0 [facility] Comment on above: Performed By: #### U RCX #### [facility] [address] [place] [address] Dr. Wally Zapien Creatinine [Mass/Vol] 0.85 mg/dL Normal 0.70-1.30 [facility] Comment on above: Performed By: #### U RCX #### [facility] [address] [address] [address] Wally Zapien EGFR-AF [place]IZ[place] >60 Normal >=60 [facility] Comment on above: Performed By: #### U RCX #### [facility] [address] [address] [address] Wally Zapien EGFR-NON AF [place]IZ[place] >60 Normal >=60 [facility] Comment on above: Performed By: #### U RCX #### [facility] [address] [place] [address] Dr. Wally Zapien Glucose [Mass/Vol] 112 mg/dL Critically high 74-106 [facility] Comment on above: Performed By: #### U RCX #### [facility] [address] [address] [address] Wally Zapien Potassium [Moles/Vol] 4.3 mmol/L Normal 3.5-5.1 [facility] Comment on above: Performed By: #### U RCX #### [facility] [address] [address] [address] Wally Zapien Sodium [Moles/Vol] 140 mmol/L Normal 136-145 [facility] Comment on above: Performed By: #### U RCX #### [facility] [address] [place] [address] Dr. Wally Zapien Urea nitrogen [Mass/Vol] 23.0 mg/dL Critically high 7.0-18.0 [facility] Comment on above: Performed By: #### U RCX #### [facility] [address] [place] [address] Dr. Wally Zapien Urea nitrogen/Creatinine [Mass ratio] 27.1 mg/mg Normal [facility] Comment on above: Performed By: #### U RCX #### [facility] [address] [place] [address] Dr. Wally Zapien URINE MICROSCOPIC ONLYon BACTERIA TRACE Abnormal NONE SEEN [facility] Comment on above: Performed By: #### E RUJanell UMICRO #### [facility] [address] [place] [address] Dr. Wally Zapien Bacteria identified Cx Nom (U) NOT INDICATED Normal [facility] Comment on above: Performed By: #### E RUR UMICRO #### [facility] [address] [place] [address] Dr. Wally Zapien CAST NONE SEEN Normal NONE SEEN [facility] Comment on above: Performed By: #### E RUR UMICRO #### [facility] [address] [place] [address] Dr. Wally Zapien Crystals LM Nom (Urine sed) NONE SEEN Normal NONE SEEN [facility] Comment on above: Performed By: #### E LAZARO UMICRO #### [facility] [address] [place] [address] Dr. Wally Zapien Epithelial cells LM Ql (Urine sed) RARE Normal NONE SEEN /RARE [facility] Comment on above: Performed By: #### BIMAL PADRONRO #### [facility] [address] [address] [address] Wally Zapien MUCOUS NONE SEEN Normal NONE SEEN [facility] Comment on above: Performed By: #### BIMAL PADRONRO #### [facility] [address] [address] [address] Wally Zapien RBC (U) [#/Vol] /uL Abnormal 0-2 [facility] Comment on above: Performed By: #### BIMAL PADRONRO #### [facility] [address] [address] [address] Wally Zapien WBC 2-5 Abnormal NONE SEEN [facility] Comment on above: Performed By: #### BIMAL PADRONRO #### [facility] [address] [place] [address] Dr. Wally Zapien Patient Educationon 04-16-20 Patient Education Nutrition Calorie Counting for Weight Loss Calories are units of energy. Your body needs a certain amount of calories from food to keep you going throughout the day. When you eat more calories than your body needs, your body stores the extra calories as fat. When you eat fewer calories than your body needs, your body mc fat to get the energy it needs. Calorie counting means keeping track of how many calories you eat and drink each day. Calorie counting can be helpful if you need to lose weight. If you make sure to eat fewer calories than your body needs, you should lose weight. Ask your health care provider what a healthy weight is for you. For calorie counting to work, you will need to eat the right number of calories in a day in order to lose a healthy amount of weight per week. A dietitian can help you determine how many calories you need in a day and will give you suggestions on how to reach your calorie goal. ? A healthy amount of weight to lose per week is usually 1?2 lb (0.5?0.9 kg). This usually means that your daily calorie intake should be reduced by 500?750 calories. ? Eating 1,200 ? 1,500 calories per day can help most women lose weight. ? Eating 1,500 ? 1,800 calories per day can help most men lose weight. What is my plan? My goal is to have calories per day. If I have this many calories per day, I should lose around pounds per week. What do I need to know about calorie counting? In order to meet your daily calorie goal, you will need to: ? Find out how many calories are in each food you would like to eat. Try to do this before you eat. ? Decide how much of the food you plan to eat. ? Write down what you ate and how many calories it had. Doing this is called keeping a food log. To successfully lose weight, it is important to balance calorie counting with a healthy lifestyle that includes regular activity. Aim for 150 minutes of moderate exercise (such as walking) or 75 minutes of vigorous exercise (such as running) each week. Where do I find calorie information? The number of calories in a food can be found on a Nutrition Facts label. If a food does not have a Nutrition Facts label, try to look up the calories online or ask your dietitian for help. Remember that calories are listed per serving. If you choose to have more than one serving of a food, you will have to multiply the calories per serving by the amount of servings you plan to eat. For example, the label on a package of bread might say that a serving size is 1 slice and that there are 90 calories in a serving. If you eat 1 slice, you will have eaten 90 calories. If you eat 2 slices, you will have eaten 180 calories. How do I keep a food log? Immediately after each meal, record the following information in your food log: ? What you ate. Don't forget to include toppings, sauces, and other extras on the food. ? How much you ate. This can be measured in cups, ounces, or number of items. ? How many calories each food and drink had. ? The total number of calories in the meal. Keep your food log near you, such as in a small notebook in your pocket, or use a mobile jennifer or website. Some programs will calculate calories for you and show you how many calories you have left for the day to meet your goal. What are some calorie counting tips? ? Use your calories on foods and drinks that will fill you up and not leave you hungry: ? Some examples of foods that fill you up are nuts and nut butters, vegetables, lean proteins, and high-fiber foods like whole grains. High-fiber foods are foods with more than 5 g fiber per serving. ? Drinks such as sodas, specialty coffee drinks, alcohol, and juices have a lot of calories, yet do not fill you up. ? Eat nutritious foods and avoid empty calories. Empty calories are calories you get from foods or beverages that do not have many vitamins or protein, such as candy, sweets, and soda. It is better to have a nutritious high-calorie food (such as an avocado) than a food with few nutrients (such as a bag of chips). ? Know how many calories are in the foods you eat most often. This will help you calculate calorie counts faster. ? Pay attention to calories in drinks. Low-calorie drinks include water and unsweetened drinks. ? Pay attention to nutrition labels for low fat or fat free foods. These foods sometimes have the same amount of calories or more calories than the full fat versions. They also often have added sugar, starch, or salt, to make up for flavor that was removed with the fat. ? Find a way of tracking calories that works for you. Get creative. Try different apps or programs if writing down calories does not work for you. What are some portion control tips? ? Know how many calories are in a serving. This will help you know how many servings of a certain food you can have. ? Use a measuring cup to measure serving sizes. You could (more content not included)... Normal [facility] Urology Office/Clinic Noteon 04-16-2022 Urology Office/Clinic Note Chief Complaint 6 month follow up HPI Staff Kyler is here today for a 6 month follow up. Previous DX: BPH with urinary obstruction, nocturia, hydrocele, kidney stone, ureteral stricture in male, other obstructive and reflux uropathy. S/P Cysto/UD done on 06/15/21. Pt is currently taking the tamsulosin 0.4 BID. Pt could not give a UA sample at the moment. Dysuria: _Denies Incomplete bladder emptying: _Denies Hematuria: _Denies Frequency: _Denies Urgency: _yes goes right when he feels the urge Nocturia: _1-3x Stream: _steady Leaking: _sometimes Post void dripping: _Denies Wearing pads/ Depends: _pad changes 1 x a day Urge incontinence: _Denies Stress incontinence: _Denies Incontinence without Sensory Awareness: _Denies Abdominal pain: _Denies Flank pain: _Denies Sexual complaints: _ History of Present Illness Pt is here for 6 month follow up due to BPH, Urethral Stricture Reviewed UA Pt has no associated symptoms, no fever, no chills, no flank pain. I have reviewed the previous health record information and history for this patient from Dr. Valentin Review of Systems PHQ Score Initial Depression Screen Score: 0 ROS - Provider Constitutional: denies weight loss, denies hot flashes. Eyes: denies eye problems. Gastrointestinal: denies nausea, denies vomiting. Cardiovascular: denies chest pain or angina. Integumentary: no dryness Musculoskeletal: denies musculoskeletal symptoms. ENMT: denies otolaryngeal symptoms. Respiratory: no shortness of breath. Heme/Lymph: denies easy bleeding tendency, denies easy bruising tendency. Psychiatric: no confusion, no anxiety. Genitourinary: denies dysuria, denies hematuria, denies discharge, denies urinary frequency, denies urinary hesitancy, mild nocturia, mild incontinence, denies genital sores, denies decreased libido, and denies erectile dysfunction. Physical Exam Vitals & Measurements HR: 81(Peripheral) RR: 16 BP: 156/87 HT: 160.0 cm HT: 160 cm WT: 94.4 kg WT: 94.4 kg BMI: 36.88 General Appearance: alert, no distress, well nourished, well developed male. Assessment/Plan Will return for follow up in 1 year 1. BPH with urinary obstruction (N40.1: Benign prostatic hyperplasia with lower urinary tract symptoms) Stream good. Empties well. Discussed with pt the effectiveness of current BPH medications. Pt will continue Tamsulosin 0.4mg BID Pt is having Mild nocturia and Urgency 2. Kidney stone (N20.0: Calculus of kidney) No c/o Kidney Stones today 3. Urethral stricture in male (N35.919: Unspecified urethral stricture, male, unspecified site) Pt had Cysto/UD 06/15/2021 Pt aware that Urethral Stricture may return and she may need to have a repeat dilation. Other obstructive and reflux uropathy (N13.8: Other obstructive and reflux uropathy) Follow-up With When Contact Information JADYON COE, TANIYA Cheng In [address] [place], [place] [id number] Business (1) Additional Instructions: Patient Education Benign Prostatic Hyperplasia Calorie Counting for Weight Loss Betina Agudelo personally scribed for Dr. Valentin on 04/16/2022 14:50:24. . Documentation recorded by the scribeBetina, accurately reflects the services(s) I performed and decisions made by me. Authenticated by Dr. Valentin on 04/16/2022 14:56:12. Problem List/Past Medical History Ongoing BMI 36.0-36.9,adult BPH with urinary obstruction Cholelithiases Elevated cholesterol Hydrocele Hypertension Kidney stone Left retinal detachment Nocturia Pericarditis Scrotal cyst Sleep apnea Spermatocele Testicular mass Urethral stricture in male Urinary retention Historical Colon cancer stage 1 Hydrocele Procedure/Surgical History Cystoscope (03/17/2019), CABG - Coronary artery bypass graft, Cardiac catheterisation, Cataract extraction, Hip replacement, Hydrocelectomy, Inguinal herniorrhaphy, Large bowel resection, Rotator cuff repair, Tonsillectomy and adenoidectomy. Medications atorvastatin 40 mg oral tablet brimonidine ophthalmic 0.2% solution dorzolamide 2% ophthalmic solution, 1 drop(s), OPTH, TID latanoprost ophthalmic 0.005% solution, 1 drop(s), OPTH, Once a day (at bedtime) lisinopril 10 mg oral tablet Lopressor 25 mg oral tablet, 25 mg= 1 tab(s), Oral, Daily meloxicam 15 mg oral tablet Rhopressa 0.02% ophthalmic solution tamsulosin 0.4 mg Cap, 0.4 mg= 1 cap(s), Oral, BID, 3 refills timolol Opth 0.5% Yvette 5 mL Vascepa 1 g oral capsule Allergies No Known Allergies Social History Alcohol - Denies Alcohol Use, 03/13/2019 Tobacco - Denies Tobacco Use, 03/13/2019 Never (less than 100 in lifetime) Tobacco Use:. Never Smokeless Tobacco Use:., 04/16/2022 Family History Heart disease: Mother. Immunizations Vaccine Date Status influenza virus vaccine, inactivated 06/01/2021 Recorded SARS-CoV-2 (COVID-19) Ad26 vaccine 07/06 (more content not included)... Normal [facility] Comment on above: Result Comment: Elec tronically Signed By: Reno VALENTIN MD\.br\Date and Time Signed: 04/16/22 14:56 EDT\.br\Electronically Co-Signed By: Betina Johns\.br\Date and Time Co-Signed: 04/16/22 14:50 EDT Ambulatory Visit Summaryon 0 10-16-2021 Ambulatory Visit Summary KYELR RICHARD :1940 Visit Date:10/16/2021 Ambulatory Visit Instructions Your Diagnosis BPH with urinary obstruction Nocturia Hydrocele Kidney stone Urethral stricture in male Other obstructive and reflux uropathy Tests Performed Urnls Dip Stick Auto w/o Microscopy POC 42039 Your Care Team Attending Physician - Reno VALENTIN MD Primary Care Physician - Eliana Ba MD This Is Your Medications List tamsulosin (tamsulosin 0.4 mg Cap) Contact prescribing physician if questions or concerns atorvastatin (atorvastatin 40 mg oral tablet) brimonidine ophthalmic (brimonidine ophthalmic 0.2% solution) dorzolamide ophthalmic (dorzolamide 2% ophthalmic solution) icosapent (Vascepa 1 g oral capsule) latanoprost ophthalmic (latanoprost ophthalmic 0.005% solution) lisinopril (lisinopril 10 mg oral tablet) meloxicam (meloxicam 15 mg oral tablet) metoprolol (Lopressor 25 mg oral tablet) netarsudil ophthalmic (Rhopressa 0.02% ophthalmic solution) timolol ophthalmic (timolol Opth 0.5% Yvette 5 mL) Procedures Performed Cystoscope (03/17/2019), CABG - Coronary artery bypass graft, Cardiac catheterisation, Cataract extraction, Hip replacement, Hydrocelectomy, Inguinal herniorrhaphy, Large bowel resection, Rotator cuff repair, Tonsillectomy and adenoidectomy. Discharge Vitals Heart Rate (Peripheral) 61 Blood Pressure 156/71 Height 160 cm Height 160.0 cm Weight 94.4 kg Weight 94.4 kg BMI 36.88 What to do next You Need to Schedule the Following Appointments Follow Up with JAYDON COE, TANIYA Cheng When: Where: [facility] [address] [place] [address] [facility] (1) Medications What How Much When Instructions Unchanged tamsulosin (tamsulosin 0.4 mg Cap) 1 Capsules By Mouth 2 times a day Unchanged atorvastatin (atorvastatin 40 mg oral tablet) Contact prescribing physician if questions or concerns Unchanged brimonidine ophthalmic (brimonidine ophthalmic 0.2% solution) Contact prescribing physician if questions or concerns Unchanged dorzolamide ophthalmic (dorzolamide 2% ophthalmic solution) 1 Drops Ophthalmic 3 times a day Contact prescribing physician if questions or concerns Unchanged icosapent (Vascepa 1 g oral capsule) Contact prescribing physician if questions or concerns Unchanged latanoprost ophthalmic (latanoprost ophthalmic 0.005% solution) 1 Drops Ophthalmic Once a day (at bedtime) Contact prescribing physician if questions or concerns Unchanged lisinopril (lisinopril 10 mg oral tablet) Contact prescribing physician if questions or concerns Unchanged meloxicam (meloxicam 15 mg oral tablet) Contact prescribing physician if questions or concerns Unchanged metoprolol (Lopressor 25 mg oral tablet) 1 Tablets By Mouth Every day Contact prescribing physician if questions or concerns Unchanged netarsudil ophthalmic (Rhopressa 0.02% ophthalmic solution) Contact prescribing physician if questions or concerns Unchanged timolol ophthalmic (timolol Opth 0.5% Yvette 5 mL) Contact prescribing physician if questions or concerns Test Results Urnls Dip Stick Auto w/o Microscopy POC 97015 (10/16/2021) Bilirubin Urine Dipstick - Negative Blood Urine Dipstick - Negative Glucose Urine Dipstick - Negative Ketones Urine Dipstick - Negative Leukocytes Urine Dipstick - Trace Nitrite Urine Dipstick - Negative Protein Urine Dipstick - 2+ (100 mg/dl) Specific [place] Urine Dipstick - 1.025 Urine Appearance Urine Dipstick - Clear Urine Color Urine Dipstick - Yellow Urobilinogen Urine Dipstick - Normal 0.2-1 EU/dl pH Urine Dipstick - 7 Allergies No Known Allergies Problems Ongoing - Any problem that you are currently receiving treatment for. 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 Colon cancer stage 1 Hydrocele Education Materials Urethral Stricture Urethral stricture is narrowing of the tube (urethra) that carries urine from the bladder out of the body. The urethra can become narrow due to scar tissue from an injury or infection. This can make it difficult to pass urine. In women, the urethra opens above the vaginal opening. In men, the urethra opens at the tip of the penis, and the urethra is much longer than it is in women. Because of the length of the male urethra, urethral stricture is much more common in men. This condition is treated with surgery. What are the causes? In both men and women, common causes of urethral stricture include: ? Urinary tract infection (UTI). ? Sexually transmitted infection (STI). ? Use of a tube placed into the urethra to drain urine fr (more content not included)... Normal [facility] Patient Educationon 10-16-19 Patient Education Urology Urethral Stricture Urethral stricture is narrowing of the tube (urethra) that carries urine from the bladder out of the body. The urethra can become narrow due to scar tissue from an injury or infection. This can make it difficult to pass urine. In women, the urethra opens above the vaginal opening. In men, the urethra opens at the tip of the penis, and the urethra is much longer than it is in women. Because of the length of the male urethra, urethral stricture is much more common in men. This condition is treated with surgery. What are the causes? In both men and women, common causes of urethral stricture include: ? Urinary tract infection (UTI). ? Sexually transmitted infection (STI). ? Use of a tube placed into the urethra to drain urine from the bladder (urinary catheter). ? Urinary tract surgery. In men, common causes of urethral stricture include: ? A severe injury to the pelvis. ? Prostate surgery. ? Injury to the penis. In many cases, the cause of urethral stricture is not known. What increases the risk? You are more likely to develop this condition if you: ? Are male. Men who have had prostate surgery are at risk of developing this condition. ? Use a urinary catheter. ? Have had urinary tract surgery. What are the signs or symptoms? The main symptom of this condition is difficulty passing urine. This may cause decreased urine flow, dribbling, or spraying of urine. Other symptom of this condition may include: ? Frequent UTIs. ? Blood in the urine. ? Pain when urinating. ? Swelling of the penis in men. ? Inability to pass urine (urinary obstruction). How is this diagnosed? This condition may be diagnosed based on: ? Your medical history and a physical exam. ? Urine tests to check for infection or bleeding. ? X-rays. ? Ultrasound. ? Retrograde urethrogram. This is a type of test in which dye is injected into the urethra and then an X-ray is taken. ? Urethroscopy. This is when a thin tube with a light and camera on the end (urethroscope) is used to look at the urethra. How is this treated? This condition is treated with surgery. The type of surgery that you have depends on the severity of your condition. You may have: ? Urethral dilation. In this procedure, the narrow part of the urethra is stretched open (dilated) with dilating instruments or a small balloon. ? Urethrotomy. In this procedure, a urethroscope is placed into the urethra, and the narrow part of the urethra is cut open with a surgical blade inserted through the urethroscope. ? Open surgery. In this procedure, an incision is made in the urethra, the narrow part is removed, and the urethra is reconstructed. Follow these instructions at home: ? Take sspl-exs-qrefqzj and prescription medicines only as told by your health care provider. ? If you were prescribed an antibiotic medicine, take it as told by your health care provider. Do not stop taking the antibiotic even if you start to feel better. ? Drink enough fluid to keep your urine pale yellow. ? Keep all follow-up visits as told by your health care provider. This is important. Contact a health care provider if: ? You have signs of a urinary tract infection, such as: ? Frequent urination or passing small amounts of urine frequently. ? Needing to urinate urgently. ? Pain or burning with urination. ? Urine that smells bad or unusual. ? Cloudy urine. ? Pain in the lower abdomen or back. ? Trouble urinating. ? Blood in the urine. ? Vomiting or being less hungry than normal. ? Diarrhea or abdominal pain. ? Vaginal discharge, if you are female. ? Your symptoms are getting worse instead of better. Get help right away if: ? You cannot pass urine. ? You have a fever. ? You have swelling, bruising, or discoloration of your genital area. This includes the penis, scrotum, and inner thighs for men, and the outer genital organs (vulva) and inner thighs for women. ? You develop swelling in your legs. ? You have difficulty breathing. Summary ? Urethral stricture is narrowing of the tube (urethra) that carries urine from the bladder out of the body. The urethra can become narrow due to scar tissue from an injury or infection. ? This condition can make it difficult to pass urine. ? This condition is treated with surgery. The type of surgery that you have depends on the severity of your condition. ? Contact a health care provider if your symptoms get worse or you have signs of a urinary tract infection. This information is not intended to replace advice given to you by your health care provider. Make sure you discuss any questions you have with your health care provider. Document Released: 09/07/2016 Document Revised: 03/25/2019 Document Reviewed: 03/25/2019 [employer]hat Patient Education ? 2019 [employer] [facility] Urology Office/Clinic Noteon 10-16-2021 Urology Office/Clinic Note Chief Complaint pt is here for 4mo f/u to cysto/ud HPI Staff pt is 81yr old male here for 4mo f/u to cysto/ud. Previous dx: urinary retention, kidney stone, BPH w/urinary obstruction and spermatocele. Previous PSA done on 05/18/20 was at 0.88 Dysuria: _denies Incomplete bladder emptying: _denies Hematuria: _denies visibly Frequency: _depends on fluid intake Urgency: _yes, has to go right away Nocturia: _2-3x Stream: _steady Leaking: _sometimes Post void dripping: _denies Wearing pads/ Depends: _pad, changes 1x a day Urge incontinence: _denies Stress incontinence: _denies Incontinence without Sensory Awareness: _denies Abdominal pain: _denies Flank pain: _denies Sexual complaints: _ History of Present Illness Tests reviewed: reviewed UA I have reviewed the previous health record information and history for this patient from Dr. Valetnin. I have reviewed and verified the staff HPI to be accurate for this encounter. There have been no associated fever, chills, flank pain, or blood in the urine. Denies any urinary infections since last encounter. Review of Systems PHQ Score Initial Depression Screen Score: 0 ROS - Provider Constitutional: denies weight loss, denies hot flashes. Eyes: denies eye problems. Gastrointestinal: denies nausea, denies vomiting. Cardiovascular: denies chest pain or angina. Integumentary: no dryness Musculoskeletal: denies musculoskeletal symptoms. ENMT: denies otolaryngeal symptoms. Respiratory: no shortness of breath. Heme/Lymph: denies easy bleeding tendency, denies easy bruising tendency. Psychiatric: no confusion, no anxiety. Genitourinary: See HPI. Physical Exam Vitals & Measurements HR: 61(Peripheral) BP: 156/71 HT: 160 cm HT: 160.0 cm WT: 94.4 kg WT: 94.4 kg BMI: 36.88 General Appearance: alert, no distress, well nourished, well developed male. Genitourinary: normal scrotum, normal testes, normal urethra, normal epididymis, normal vas deferens/spermatic cord. Flank Pain: none. Bladder: nonpalpable. Prostate: normal prostate, estimated weight 35 gms, no hard nodule observed. Assessment/Plan 1. BPH with urinary obstruction (N40.1: Benign prostatic hyperplasia with lower urinary tract symptoms) Moderate stream. Taking Tamsulosin 0.4mg BID therapy. All questions/concerns discussed. If patient encounters any issues before next visit he is to call. Pt understands. Current PSA 0.88 drawn on 05/15, decided to stop checking due to advanced age. 2. Nocturia (R35.1: Nocturia) Mild 0-1x at night 3. Hydrocele (N43.3: Hydrocele, unspecified) Bilateral small hydrocele on last exam, Also left sided Spermatoceles present on exam. No pain. 4. Kidney stone (N20.0: Calculus of kidney) 2mm seen on Ct scan in 2019 5. Urethral stricture in male (N35.919: Unspecified urethral stricture, male, unspecified site) S/P Cyto/UD done on 06/15/21. Other obstructive and reflux uropathy (N13.8: Other obstructive and reflux uropathy) Follow-up With When Contact Information JAYDON COE, Reno Maciel, [facility] [address] [place] [address] [facility] (1) Additional Instructions: 6 month follow up Patient Education Urethral Stricture I, Katherine Nolasco , personally scribed for Dr. Valentin on 10/16/2021 14:54:49. . Documentation recorded by the scribe, Katherine Nolasco, accurately reflects the services(s) I performed and decisions made by me. Authenticated by Dr. Valentin on 10/16/2021 14:57:23. Problem List/Past Medical History Ongoing BPH with urinary obstruction Cholelithiases Elevated cholesterol Hydrocele Hypertension Kidney stone Left retinal detachment Nocturia Pericarditis Scrotal cyst Sleep apnea Spermatocele Testicular mass Urethral stricture in male Urinary retention Historical Colon cancer stage 1 Hydrocele Procedure/Surgical History Cystoscope (03/17/2019), CABG - Coronary artery bypass graft, Cardiac catheterisation, Cataract extraction, Hip replacement, Hydrocelectomy, Inguinal herniorrhaphy, Large bowel resection, Rotator cuff repair, Tonsillectomy and adenoidectomy. Medications atorvastatin 40 mg oral tablet brimonidine ophthalmic 0.2% solution dorzolamide 2% ophthalmic solution, 1 drop(s), OPTH, TID latanoprost ophthalmic 0.005% solution, 1 drop(s), OPTH, Once a day (at bedtime) lisinopril 10 mg oral tablet Lopressor 25 mg oral tablet, 25 mg= 1 tab(s), Oral, Daily meloxicam 15 mg oral tablet Rhopressa 0.02% ophthalmic solution tamsulosin 0.4 mg Cap, 0.4 mg= 1 cap(s), Oral, BID, 3 refills timolol Opth 0.5% Yvette 5 mL Vascepa 1 g oral capsule Allergies No Known Allergies Social History Alcohol - Denies Alcohol Use, 03/13/2019 Tobacco - Denies Tobacco Use, 03/13/2019 Never (less than 100 in lifetime) Tobacco Use:. Never Smokeless Tobacco Use:., 10/16/2021 Family History Heart disease: Mother. (more content not included)... Normal [facility] Comment on above: Result Comment: Elec tronically Signed By: Reno VALENTIN MD\.br\Date and Time Signed: 10/16/21 14:57 EST\.br\Electronically Co-Signed By: Katherine Nolasco\.br\Date and Time Co-Signed: 10/16/21 14:55 EST Vital Signs Date Time Vital Sign Value Performing Clinician Facility 07-17-2023 15:40-0500 Body height 160.02 cm Rocio Nullmond Other [facility] Other 07-17-2023 15:40-0500 Body mass index (BMI) [Ratio] 37.55 kg/m2 Rocio Nullmond Other [facility] Other 07-17-2023 15:40-0500 Body temperature 98.2 [degF] Rocio Nullmond Other [facility] Other 07-17-2023 15:40-0500 Body weight 96.16 kg Rocio Nullmond Other [facility] Other 07-17-2023 15:40-0500 Diastolic blood pressure 76 mm[Hg] Rocio Nullmond Other [facility] Other 07-17-2023 15:40-0500 Respiratory rate 18 /min Rocio Nullmond Other [facility] Other 07-17-2023 15:40-0500 SaO2% (BldA) [Mass fraction] 96 % Rocio Nullmond Other [facility] Other 07-17-2023 15:40-0500 Systolic blood pressure 134 mm[Hg] Rocio Rocio Other [facility] Other 09-26-2022 13:26-0500 Blood Pressure Location Reno VALENTIN [facility] 09-26-2022 13:26-0500 Diastolic blood pressure 74 mm[Hg] Reno VALENTIN [facility] 09-26-2022 13:26-0500 Heart rate 52 /min Reno VALENTIN [facility] 09-26-2022 13:26-0500 Systolic blood pressure 173 mm[Hg] Reno VALENTIN [facility] 04-16-2022 13:49-0400 Diastolic blood pressure 87 mm[Hg] Reno VALENTIN [facility] 04-16-2022 13:49-0400 Mean blood pressure 110 mm[Hg] Reno VALENTIN [facility] 04-16-2022 13:49-0400 Systolic blood pressure 156 mm[Hg] Reno VALENTIN [facility] 04-16-2022 13:37-0400 Blood Pressure Location Reno VALENTIN [facility] 04-16-2022 13:37-0400 Diastolic blood pressure 102 mm[Hg] Reno VALENTIN [facility] 04-16-2022 13:37-0400 Heart rate 81 /min Reno VALENTIN [facility] 04-16-2022 13:37-0400 Respiratory rate 16 /min Reno VALENTIN [facility] 04-16-2022 13:37-0400 Systolic blood pressure 191 mm[Hg] Reno VALENTIN [facility] Encounters Encounter Date Encounter Type Care Provider Facility Start: 07-17-2023 End: 07-17-2023 ambulatory Rocio Chan Other [facility] Other Start: 07-17-2023 Office outpatient visit 15 minutes Rocio Chan [facility] Start: 05-27-2023 End: 05-28-2023 ambulatory Fabrice Dias MD Facility: [facility] Start: 04-19-2023 ambulatory MD Reno VALENTIN Fac ility:[facility] Start: 01-23-[address] ELIANA BA . Facili ty:[facility] Start: 01-16-2023 ambulatory MD Reno VALENTIN Fac ility:[facility] Start: 09-26-2022 End: 09-27-2022 ambulatory MD Reno VALENTIN Facility:[facility] Start: 09-26-2022 End: 09-26-2022 Patient encounter procedure Reno VALENTIN [facility] Start: 09-24-2022 End: 09-25-[address] ELIANA BA . Facility:[facility] Start: 09-18-2022 End: 09-18-2022 ambulatory KARLOS MELTON . Facility:[facility] Start: 04-16-2022 End: 04-17-2022 ambulatory MD Reno VALENTIN Facility:[facility] Start: 04-16-2022 End: 04-16-2022 Patient encounter procedure Reno VALENTIN [facility] Start: 10-16-2021 ambulatory MD Reno Guadalupe ity:BINH Dan Start: 10-16-2021 End: 10-17-2021 ambulatory MD Reno VALENTIN Facility:[facility] Procedures Date Procedure Procedure Detail Performing Clinician Start: 09-24-2022 PSA screening KARLOS ALVAREZ . Comment on above: Performed By: #### U RCX #### [facility] [address] [place] [address] Dr. Wally Zapien Start: 03-17-2019 Cystoscope, device ( physical object) Reno JAYDON Cardiac catheterization Patr viancak VALENTIN Coronary artery bypass graft Renonoe VALENTIN Extraction of cataract Kathy escobedo VALENTIN Hydrocelectomy Reno MEYER S Inguinal herniorrhaphy Patkarolyn escobedo VALENTIN Large intestine excision Pat noe VALENTIN Prosthetic arthropla sty of the hip Renonoe VALENTIN Repair of musculoten dinous cuff of shoulder Renonoe VALENTIN Tonsillectomy and adenoidectomy Renonoe VALENTIN Immunizations Immunization Date Immunization Notes Care Provider Fa [facility] 05-24-2022 influenza virus vacc ine, unspecified formulation Reno VALENTIN [facility] 04-20-2022 SARS-CoV-2 mRNA (udfelpgequk-augm-kswjhd e) vaccine Reno VALENTIN [facility] 06-19-2021 SARS-CoV-2 (COVID-19 ) mRNA BNT-162b2 vax Renonoe VALENTIN [facility] 06-01-2021 influenza virus vacc ine, unspecified formulation [employer] [facility] 05-23-2021 influenza virus vacc ine, unspecified formulation [employer] [facility] 11-10-2020 SARS-CoV-2 (COVID-19 ) mRNA BNT-162b2 vax [employer] [facility] 10-20-2020 SARS-CoV-2 (COVID-19 ) mRNA BNT-162o6 vax [employer] [facility] 08-04-2020 zoster vaccine recombinant [employer] [facility] 07-06-2020 SARS-CoV-2 (COVID-19 ) Ad26 vaccine, recombinant [employer] [facility] 06-24-2020 influenza virus vacc ine, unspecified formulation [employer] [facility] 06-03-2020 zoster vaccine recombinant [employer] [facility] 06-02-2020 SARS-CoV-2 (COVID-19 ) Ad26 vaccine, recombinant [employer] [facility] 05-26-2020 influenza virus vacc ine, unspecified formulation [employer] [facility] 05-29-2019 influenza virus vacc ine, unspecified formulation [employer] [facility] 06-17-2018 influenza virus vacc ine, unspecified formulation [employer] [facility] 05-14-2017 influenza virus vacc ine, unspecified formulation [employer] [facility] 05-14-2017 pneumococcal polysaccharide vaccine, 23 valent [employer] [facility] 05-17-2016 influenza virus vacc ine, unspecified formulation [employer] [facility] 05-17-2016 pneumococcal conjuga te vaccine, 13 valent [employer] [facility] 05-16-2015 influenza virus vacc ine, unspecified formulation [employer] [facility] Payers Date Payer Category Payer Private Health Insurance 1959 Private Health Insurance [id number] 1940 Unknown [id number] 2.16.8 [id number] 1940 Unknown [id number] 2.16.8 [id number] 1942 Unknown [id number] 2.16.8 [id number] 1942 Unknown [id number] 2.16.8 [id number] 1942 Unknown [id number] 2.16.8 [id number] 1942 Unknown [id number] 2.16.84 [id number] 1942 Unknown [id number] 2.16.84 [id number] 1942 Unknown [id number] 2.16.84 [id number] 1942 Unknown [id number] 2.16. [id number] Social History Date Type Detail Facility Start: 04-16-2022 End: 09-26-2022 Tobacco smoking status Never smoked tobacco (finding) [facility] Tobacco smoking status Never [facility] At Male [facility] Functional Status Date Assessment Result Facility 09-26-2022 Functional Status N/A [facility] 04-16-2022 Functional Status N/A [facility] Evaluation note 07-17-2023 Note Date & Type Note Facility 07-17-2023 Evaluation note Encounter Date Diagnosis Assessment Notes Jun, Contact with and (suspected) exposure to covid-19 (ICD-10 - Z20.822) Jun, COVID-19 (ICD-10 - U07.1) Discharge Instructions for COVID-19 (Suspected or Confirmed ) material was printed Drink plenty fluids, get plenty of rest. Take Tylenol as needed for aches or pains. Continue home medications as prescribed. You must quarantine for 5 days after the onset of your symptoms of COVID. Follow-up with your family physician if no improvement in 2 to 3 days [facility] Other Hospital Discharge instructions 09-26-2022 Note Date & Type Note Facility 09-26-2022 Hospital Discharg e instructions Patient Education 09/26/2022 14:15:41 Infection Prevention in the Home Infection Prevention in the Home If you have an infection, may have been exposed to an infection, or are taking care of someone who has an infection, it is important to know how to keep the infection from spreading. Follow your health care provider's instructions and use these guidelines to help stop the spread of infection. How infections are spread In order for an infection to spread, the following must be present: A germ. This may be a virus, bacteria, fungus, or parasite. A place for the germ to live. This may be: ?On or in a person, animal, plant, or food. ?In soil or water. ?On surfaces, such as a door handle. A person or animal who can develop a disease if the germ enters the body (host). The host does not have resistance to the germ. A way for the germ to enter the host. This may occur by: ?Direct contact with an infected person or animal. This can happen through shaking hands or hugging. Some germs can also travel through the air and spread to others. This can happen when an infected person coughs or sneezes on or near other people. ?Indirect contact. This occurs when the germ enters the host through contact with an infected object. Examples include: ?Eating or drinking food or water that has the germ (is contaminated). ?Touching a contaminated surface with your hands, and then touching your face, eyes, nose, or mouth. Supplies needed: Soap. Alcohol-based hand rodent exterminator. Standard cleaning products. Disinfectants, such as bleach. Reusable cleaning cloths, sponges, or paper towels. Disposable or reusable utility gloves. How to prevent infection from spreading There are several things that you can do to help prevent infection from spreading. Take these general actions Everyone should take the following actions to prevent the spread of infection: Wash your hands often with soap and water for at least 20 seconds. If soap and water are not available, use alcohol-based hand rodent exterminator. Avoid touching your face, mouth, nose, or eyes. Cough or sneeze into a tissue, sleeve, or elbow instead of into your hand or into the air. ?If you cough or sneeze into a tissue, throw it away immediately and wash your hands. Keep your bathroom clean Provide soap. Change towels and washcloths frequently. Change toothbrushes often and store them separately in a clean, dry place. Clean and disinfect all surfaces, including the toilet, floor, tub, shower, and sink. Do not share personal items, such as razors, toothbrushes, deodorant, driscoll, brushes, towels, and washcloths. Maintain hygiene in the kitchen Wash your hands before and after preparing food and before you eat. Clean the inside of your refrigerator each week. Keep your refrigerator set at 40 F (4 C) or less, and set your freezer at 0 F ( 18 C) or less. Keep work surfaces clean. Disinfect them regularly. Wash your dishes in hot, soapy water. Air-dry your dishes or use a bag printer. Do not share dishes or eating utensils. Handle food safely Store food carefully. Refrigerate leftovers promptly in covered containers. Throw out stale or spoiled food. Thaw foods in the refrigerator or microwave, not at room temperature. Serve foods at the proper temperature. Do not eat raw meat. Make sure it is cooked to the appropriate temperature. Cook eggs until they are firm. Wash fruits and vegetables under running water. Use separate cutting boards, plates, and utensils for raw foods and cooked foods. Use a clean spoon each time you sample food while cooking. Do laundry the right way Wear gloves if laundry is visibly soiled. Do not shake soiled laundry. Doing that may send germs into the air. Wash laundry in hot water. If you cannot wash the laundry right away, place it in a plastic bag and wash it as soon as possible. Be careful around animals and pets Wash your hands before and after touching animals. If you have a pet, ensure that your pet stays clean. Do not let people with weak immune systems touch bird droppings, fish tank water, or a litter box. ?If you have a pet cage or litter box, be sure to clean it every day. If you are sick, stay away from animals and have someone else care for them if possible. How to clean and disinfect objects and surfaces Precautions Some disinfectants work for certain germs and not others. Read the silverware supervisor's instructions or read online resources to determine if the product you are using will work for the germ you are trying to remove. If you choose to use bleach, use it safely. Never mix it with other cleaning products, especially those that contain ammonia. This mixture can create a dangerous gas that may be deadly. Keep proper movement of fresh air in your home (ventilation). Pour used mop water down the utility sink or toilet. Do not pour this water down the kitchen sink. Objects and surfaces If surfaces are visibly soiled, clean them first with soap and water before disinfecting. Disinfect surfaces that are frequently touched every day. This may include: ?Counters. ?Tables. ?Doorknobs. ?Sinks and faucets. ?Electronics, such as: ?Phones. ?Remote controls. ?Keyboards. ?Computers and tablets. Cleaning supplies Some cleaning supplies can breed germs. Take good care of them to prevent germs from spreading. To do this: Soak toilet brushes, mops, and sponges in bleach and water for 5 minutes after each use, or according to silverware supervisor's instructions. Wash reusable cleaning cloths and sanitize sponges after each use. Throw away disposable gloves after one use. Replace reusable utility gloves if they are cracked or torn or if they start to peel. Additional actions if you are sick If you live with other people: Avoid close contact with those around you. Stay at least 3 ft (1 m) away from others, if possible. Use a separate bathroom, if possible. If possible, sleep in a separate bedroom or in a separate bed to prevent infecting other household members. ?Change bedroom linens each week or whenever they are soiled. Have everyone in the household wash hands often with soap and water. If soap and water are not available, use alcohol-based hand rodent exterminator. In general: Stay home except to get medical care. Call ahead before visiting your health care provider. Ask others to get groceries and household supplies and to refill prescriptions for you. Avoid public areas. Try not to take public transportation. If you can, wear a mask if you need to go out of the house, or if you are in close contact with someone who is not sick. Avoid visitors until you have completely recovered, or until you have no signs and symptoms of infection. Avoid preparing food or providing care for others. If you must prepare food or provide care for others, wear a mask and wash your hands before and after doing these things. Where to find more information Centers for Disease Control and Prevention: www.cdc.gov/nonpharmaceutical- interventions/index.html World Health Organization (WHO): www.who.int/infection-preventi on/about/en/ Association for Professionals in Infection Control and Epidemiology: professionals.site.apic.org/se qdqivl-de-exmx/non-healthcare- setting/home/ Summary It is important to know how to keep the infection from spreading. Make sure everyone in your household washes their hands often with soap and water. Disinfect surfaces that are frequently touched every day. If you are sick, stay home except to get medical care. This information is not intended to replace advice given to you by your health care provider. Make sure you discuss any questions you have with your health care provider. Document Released: 05/21/2009 Document Revised: 12/08/2019 Document Reviewed: 11/06/2019 Yhat Patient Education 2019 [employer] Follow Up Care 09/20/2022 14:58:28 With:JAYDON COE, Reno Maciel, URL Address: [facility] [address] , [place] [address]- When:3 months Comments:UTI F/U [facility] Hospital Discharge instructions 04-16-2022 Note Date & Type Note Facility 04-16-2022 Hospital Discharge instructions Patient Education 04/16/2022 14:44:18 Benign Prostatic Hyperplasia Benign Prostatic Hyperplasia Benign prostatic hyperplasia (BPH) is an enlarged prostate gland that is caused by the normal aging process and not by cancer. The prostate is a walnut-sized gland that is involved in the production of semen. It is located in front of the rectum and below the bladder. The bladder stores urine and the urethra is the tube that carries the urine out of the body. The prostate may get bigger as a man gets older. An enlarged prostate can press on the urethra. This can make it harder to pass urine. The build-up of urine in the bladder can cause infection. Back pressure and infection may progress to bladder damage and kidney (renal) failure. What are the causes? This condition is part of a normal aging process. However, not all men develop problems from this condition. If the prostate enlarges away from the urethra, urine flow will not be blocked. If it enlarges toward the urethra and compresses it, there will be problems passing urine. What increases the risk? This condition is more likely to develop in men over the age of 50 years. What are the signs or symptoms? Symptoms of this condition include: Getting up often during the night to urinate. Needing to urinate frequently during the day. Difficulty starting urine flow. Decrease in size and strength of your urine stream. Leaking (dribbling) after urinating. Inability to pass urine. This needs immediate treatment. Inability to completely empty your bladder. Pain when you pass urine. This is more common if there is also an infection. Urinary tract infection (UTI). How is this diagnosed? This condition is diagnosed based on your medical history, a physical exam, and your symptoms. Tests will also be done, such as: A post-void bladder scan. This measures any amount of urine that may remain in your bladder after you finish urinating. A digital rectal exam. In a rectal exam, your health care provider checks your prostate by putting a lubricated, gloved finger into your rectum to feel the back of your prostate gland. This exam detects the size of your gland and any abnormal lumps or growths. An exam of your urine (urinalysis). A prostate specific antigen (PSA) screening. This is a blood test used to screen for prostate cancer. An ultrasound. This test uses sound waves to electronically produce a picture of your prostate gland. Your health care provider may refer you to a specialist in kidney and prostate diseases (urologist). How is this treated? Once symptoms begin, your health care provider will monitor your condition (active surveillance or watchful waiting). Treatment for this condition will depend on the severity of your condition. Treatment may include: Observation and yearly exams. This may be the only treatment needed if your condition and symptoms are mild. Medicines to relieve your symptoms, including: ?Medicines to shrink the prostate. ?Medicines to relax the muscle of the prostate. Surgery in severe cases. Surgery may include: ?Prostatectomy. In this procedure, the prostate tissue is removed completely through an open incision or with a laparoscope or robotics. ?Transurethral resection of the prostate (TURP). In this procedure, a tool is inserted through the opening at the tip of the penis (urethra). It is used to cut away tissue of the inner core of the prostate. The pieces are removed through the same opening of the penis. This removes the blockage. ?Transurethral incision (TUIP). In this procedure, small cuts are made in the prostate. This lessens the prostate's pressure on the urethra. ?Transurethral microwave thermotherapy (TUMT). This procedure uses microwaves to create heat. The heat destroys and removes a small amount of prostate tissue. ?Transurethral needle ablation (TUNA). This procedure uses radio frequencies to destroy and remove a small amount of prostate tissue. ?Interstitial laser coagulation (ILC). This procedure uses a laser to destroy and remove a small amount of prostate tissue. ?Transurethral electrovaporization (TUVP). This procedure uses electrodes to destroy and remove a small amount of prostate tissue. ?Prostatic urethral lift. This procedure inserts an implant to push the lobes of the prostate away from the urethra. Follow these instructions at home: Take [id number] and prescription medicines only as told by your health care provider. Monitor your symptoms for any changes. Contact your health care provider with any changes. Avoid drinking large amounts of liquid before going to bed or out in public. Avoid or reduce how much caffeine or alcohol you drink. Give yourself time when you urinate. Keep all follow-up visits as told by your health care provider. This is important. Contact a health care provider if: You have unexplained back pain. Your symptoms do not get better with treatment. You develop side effects from the medicine you are taking. Your urine becomes very dark or has a bad smell. Your lower abdomen becomes distended and you have trouble passing your urine. Get help right away if: You have a fever or chills. You suddenly cannot urinate. You feel lightheaded, or very dizzy, or you faint. There are large amounts of blood or clots in the urine. Your urinary problems become hard to manage. You develop moderate to severe low back or flank pain. The flank is the side of your body between the ribs and the hip. These symptoms may represent a serious problem that is an emergency. Do not wait to see if the symptoms will go away. Get medical help right away. Call your local emergency services (911 in the [place] Do not drive yourself to the hospital. Summary Benign prostatic hyperplasia (BPH) is an enlarged prostate that is caused by the normal aging process and not by cancer. An enlarged prostate can press on the urethra. This can make it hard to pass urine. This condition is part of a normal aging process and is more likely to develop in men over the age of 50 years. Get help right away if you suddenly cannot urinate. This information is not intended to replace advice given to you by your health care provider. Make sure you discuss any questions you have with your health care provider. Document Released: 08/12/2006 Document Revised: 07/07/2019 Document Reviewed: 09/16/2017 Yhat Patient Education 2020 [employer] 04/16/2022 14:44:17 Calorie Counting for Weight Loss Calorie Counting for Weight Loss Calories are units of energy. Your body needs a certain amount of calories from food to keep you going throughout the day. When you eat more calories than your body needs, your body stores the extra calories as fat. When you eat fewer calories than your body needs, your body mc fat to get the energy it needs. Calorie counting means keeping track of how many calories you eat and drink each day. Calorie counting can be helpful if you need to lose weight. If you make sure to eat fewer calories than your body needs, you should lose weight. Ask your health care provider what a healthy weight is for you. For calorie counting to work, you will need to eat the right number of calories in a day in order to lose a healthy amount of weight per week. A dietitian can help you determine how many calories you need in a day and will give you suggestions on how to reach your calorie goal. A healthy amount of weight to lose per week is usually 1 2 lb (0.5 0.9 kg). This usually means that your daily calorie intake should be reduced by 500 750 calories. Eating 1,200 1,500 calories per day can help most women lose weight. Eating 1,500 1,800 calories per day can help most men lose weight. What is my plan? My goal is to have calories per day. If I have this many calories per day, I should lose around pounds per week. What do I need to know about calorie counting? In order to meet your daily calorie goal, you will need to: Find out how many calories are in each food you would like to eat. Try to do this before you eat. Decide how much of the food you plan to eat. Write down what you ate and how many calories it had. Doing this is called keeping a food log. To successfully lose weight, it is important to balance calorie counting with a healthy lifestyle that includes regular activity. Aim for 150 minutes of moderate exercise (such as walking) or 75 minutes of vigorous exercise (such as running) each week. Where do I find calorie information? The number of calories in a food can be found on a Nutrition Facts label. If a food does not have a Nutrition Facts label, try to look up the calories online or ask your dietitian for help. Remember that calories are listed per serving. If you choose to have more than one serving of a food, you will have to multiply the calories per serving by the amount of servings you plan to eat. For example, the label on a package of bread might say that a serving size is 1 slice and that there are 90 calories in a serving. If you eat 1 slice, you will have eaten 90 calories. If you eat 2 slices, you will have eaten 180 calories. How do I keep a food log? Immediately after each meal, record the following information in your food log: What you ate. Don't forget to include toppings, sauces, and other extras on the food. How much you ate. This can be measured in cups, ounces, or number of items. How many calories each food and drink had. The total number of calories in the meal. Keep your food log near you, such as in a small notebook in your pocket, or use a mobile jennifer or website. Some programs will calculate calories for you and show you how many calories you have left for the day to meet your goal. What are some calorie counting tips? Use your calories on foods and drinks that will fill you up and not leave you hungry: ?Some examples of foods that fill you up are nuts and nut butters, vegetables, lean proteins, and high-fiber foods like whole grains. High-fiber foods are foods with more than 5 g fiber per serving. ?Drinks such as sodas, specialty coffee drinks, alcohol, and juices have a lot of calories, yet do not fill you up. Eat nutritious foods and avoid empty calories. Empty calories are calories you get from foods or beverages that do not have many vitamins or protein, such as candy, sweets, and soda. It is better to have a nutritious high-calorie food (such as an avocado) than a food with few nutrients (such as a bag of chips). Know how many calories are in the foods you eat most often. This will help you calculate calorie counts faster. Pay attention to calories in drinks. Low-calorie drinks include water and unsweetened drinks. Pay attention to nutrition labels for low fat or fat free foods. These foods sometimes have the same amount of calories or more calories than the full fat versions. They also often have added sugar, starch, or salt, to make up for flavor that was removed with the fat. Find a way of tracking calories that works for you. Get creative. Try different apps or programs if writing down calories does not work for you. What are some portion control tips? Know how many calories are in a serving. This will help you know how many servings of a certain food you can have. Use a measuring cup to measure serving sizes. You could also try weighing out portions on a kitchen scale. With time, you will be able to estimate serving sizes for some foods. Take some time to put servings of different foods on your favorite plates, bowls, and cups so you know what a serving looks like. Try not to eat straight from a bag or box. Doing this can lead to overeating. Put the amount you would like to eat in a cup or on a plate to make sure you are eating the right portion. Use smaller plates, glasses, and bowls to prevent overeating. Try not to multitask (for example, watch TV or use your computer) while eating. If it is time to eat, sit down at a table and enjoy your food. This will help you to know when you are full. It will also help you to be aware of what you are eating and how much you are eating. What are tips for following this plan? Reading food labels Check the calorie count compared to the serving size. The serving size may be smaller than what you are used to eating. Check the source of the calories. Make sure the food you are eating is high in vitamins and protein and low in saturated and trans fats. Shopping Read nutrition labels while you shop. This will help you make healthy decisions before you decide to purchase your food. Make a grocery list and stick to it. Cooking Try to cook your favorite foods in a healthier way. For example, try baking instead of frying. Use low-fat dairy products. Meal planning Use more fruits and vegetables. Half of your plate should be fruits and vegetables. Include lean proteins like poultry and fish. How do I count calories when eating out? Ask for smaller portion sizes. Consider sharing an entree and sides instead of getting your own entree. If you get your own entree, eat only half. Ask for a box at the beginning of your meal and put the rest of your entree in it so you are not tempted to eat it. If calories are listed on the menu, choose the lower calorie options. Choose dishes that include vegetables, fruits, whole grains, low-fat dairy products, and lean protein. Choose items that are boiled, broiled, grilled, or steamed. Stay away from items that are buttered, battered, fried, or served with cream sauce. Items labeled crispy are usually fried, unless stated otherwise. Choose water, low-fat milk, unsweetened iced tea, or other drinks without added sugar. If you want an alcoholic beverage, choose a lower calorie option such as a glass of wine or light beer. Ask for dressings, sauces, and syrups on the side. These are usually high in calories, so you should limit the amount you eat. If you want a salad, choose a garden salad and ask for grilled meats. Avoid extra toppings like ortiz, cheese, or fried items. Ask for the dressing on the side, or ask for olive oil and vinegar or lemon to use as dressing. Estimate how many servings of a food you are given. For example, a serving of cooked rice is cup or about the size of half a baseball. Knowing serving sizes will help you be aware of how much food you are eating at restaurants. The list below tells you how big or small some common portion sizes are based on everyday objects: ?1 oz 4 stacked dice. ?3 oz 1 deck of cards. ?1 tsp 1 . ?1 Tbsp a ping-pong ball. ?2 Tbsp 1 ping-pong ball. ? cup baseball. ?1 cup 1 baseball. Summary Calorie counting means keeping track of how many calories you eat and drink each day. If you eat fewer calories than your body needs, you should lose weight. A healthy amount of weight to lose per week is usually 1 2 lb (0.5 0.9 kg). This usually means reducing your daily calorie intake by 500 750 calories. The number of calories in a food can be found on a Nutrition Facts label. If a food does not have a Nutrition Facts label, try to look up the calories online or ask your dietitian for help. Use your calories on foods and drinks that will fill you up, and not on foods and drinks that will leave you hungry. Use smaller plates, glasses, and bowls to prevent overeating. This information is not intended to replace advice given to you by your health care provider. Make sure you discuss any questions you have with your health care provider. Document Released: 08/12/2006 Document Revised: 05/01/2019 Document Reviewed: 07/12/2017 [employer]hat Patient Education [employer]. Follow Up Care 10/16/2021 15:00:57 With:JAYDON COE, Reno Maciel, URL Address: [address] [place] [phone]- Business (1) When:Within 1 Year(s) [facility] Clinical Note 10-06-2020 Note Date & Type Note Facility 10-06-2020 Note Patient Outreach ([place] [facility]) KYLER RICHARD ([id number]) 1940 M Date Time Provider Department 10/06/20 JOLYNN RUSSO During your visit today, we recorded the following information about you: Allergies As of Date: 10/06/2020 (No Known Allergies) Date Reviewed: 11/27/2018 Reviewed by: Huyen Barraza - Fully Assessed Order(s):SARS-COVID VACCINE 1ST DOSE APPT [37515SOH] Order #: [id number] FUTURE Prescriptions as of 10/06/2020 Sig: RHOPRESSA 0.02 % EYE DROPS PREDNISOLONE ACETATE 1 % EYE * INSTILL 1 DROP INTO THE LEFT * OXYCODONE-ACETAMINOPHEN 5 MG-* Take 1 tablet by mouth every * DORZOLAMIDE 2 % EYE DROPS LATANOPROST 0.005 % EYE DROPS MELOXICAM 15 MG TABLET VASCEPA 1 GRAM CAPSULE 2 capsules twice daily. COMBIGAN 0.2 %-0.5 % EYE DROPS LUMIGAN 0.01 % EYE DROPS ASPIRIN 81 MG TABLET,DELAYED * Take 1 tablet by mouth once d* ATORVASTATIN 40 MG TABLET Take 1 tablet by mouth once d* LISINOPRIL 10 MG TABLET Take 1 tablet by mouth once d* METOPROLOL TARTRATE 25 MG TAB* Take 1 tablet by mouth twice * Problem List As Of Date 10/06/2020 Noted Resolved Rectal cancer [C20] More... Coronary arteriosclerosis [I25.10] Letter Text Encounter Status:Closed by [employer], [employer] on 10/10/20 [facility] Evaluation + Plan note Note Date & Type Note Facility Evaluation + Plan note Future Appointments Appointment Date:04/19/2023 09:30:00 AM Scheduled Provider:Reno VALENTIN MD Location:[facility] Appointment Type:URO Office Visit [facility] Evaluation + Plan note Note Date & Type Note Facility Evaluation + Plan note Future Appointments Appointment Date:01/16/2023 09:45:00 AM Scheduled Provider:Reno VALENTIN MD Location:[facility] Appointment Type:URO Office Visit Appointment Date:04/19/2023 09:30:00 AM Scheduled Provider:Reno VALENTIN MD [facility] Appointment Type:URO Office Visit [facility] History general Narrative - Reported Note Date & Type Note Facility History general Narrative - Reported Type Medical History heart disease Medical History colon cancer Medical History glaucoma Surgical History open heart surgery Surgical History colon surgery Surgical History 3 hernia repairs Surgical History torn retina Surgical History cataracts Surgical History left total hip 2017 Surgical History Eye lid lift both 2020 Hospitalization History see above Hospitalization History back spasms 2022 [employer] Other Hospital course Narrative Note Date & Type Note Facility Hospital course Narrative No data available for this section [facility] Progress note Note Date & Type Note Facility Progress note No data available for this section [facility] Summary Purpose Family History No Family History Records FoundNo Family History Records FoundNo Family History Records FoundNo Family History Records Found Advance Directives No Advanced Directives Records FoundNo Advanced Directives Records FoundNo Advanced Directives Records FoundNo Advanced Directives Records Found Additional Source Comments (unrecognized sect ion and content) No Status Records FoundNo Status Records FoundNo Status Records FoundNo Status Records Found INFORMATION SOURCE (unrecogn ized section and content) DATE CREATED AUTHOR 09/19/2021 [facility] DATE CREATED AUTHOR AUTHOR'S ORGANIZ ATION 09/28/2022 [facility] DATE CREATED AUTHOR AUTHOR'S ORGANIZ ATION 02/01/2023 [facility] DATE CREATED AUTHOR AUTHOR'S ORGANIZ ATION 06/02/2023 [facility] Care Team (unrecognized sect ion and content) Personnel Name: Eliana Ba MD Address: [address] [place] [address] Personnel Name: Eliana Ba MD Address: Address: [address] [place] [address] REASON FOR VISIT (unrecogniz ed section and content) COVID TEST NEEDED, RUNNY NOS E, BAD HEADACHE, COUGHING, TESTED POSITIVE FOR RECORDS PERTAINING TO PATIENTS WHO ARE OR HAVE BEEN ENROLLED IN A CHEMICAL DEPENDENCY/SUBSTANCEABUSE PROGRAM, SOME INFORMATION MAY BE OMITTED. This clinical summary was aggregated from multiple sources. Caution should be exercised in using it in the provision of clinical care. This summary normalizes information from multiple sources, and as a consequence, information in this document may materially change the coding, format and clinical context of patient data. In addition, data may be omitted in some cases. CLINICAL DECISIONS SHOULD BE BASED ON THE PRIMARY CLINICAL RECORDS. [facility]. provides no warranty or guarantee of the accuracy or completeness of information in this document.
--- NOTE | 2023-09-23 14:04 | P.CN_ITS ---
Consult Note: HPI Data of Consult Patient: known to practice within the last 3 years Consult date: 09/23/23 Requesting Physician: Fabrice Dias MD Primary Care Provider: Bayron Ba MD Consult Narrative Reason for consult: Low back pain Narrative: 83yom who presents for assessment. Worsening axial low back pain, worse with standing. Lumbar XR shows significant facet arthropathy in lower lumbar spine. Underwent physical therapy within past 3 months, continues in >6 weeks of provider directed home exercises, with no benefit. Utilizes mobic, with minimal benefit. Denies adverse med side effects. cc:: CC: Fabrice Dias MD Review of Systems ROS Status of ROS 10 or more systems reviewed and unremark able except as noted in history and below [facility] Medical History High cholesterol ?E78.00 - Pure hypercholesterolemia, unspecified (ICD-10) Heart disease ?I51.9 - Heart disease, unspecified (ICD-10) Hypertension ?I10 - Essential (primary) hypertension (ICD-10) Glaucoma ?H40.9 - Unspecified glaucoma (ICD-10) Colon cancer ?C18.9 - Malignant neoplasm of colon, unspecified (ICD-10) Inability to walk ?R26.2 - Difficulty in walking, not elsewhere classified (ICD-10) Chronic back pain ?M54.9 - Dorsalgia, unspecified (ICD-10) ?G89.29 - Other chronic pain (ICD-10) Strain of lumbar region ?S39.012A - Strain of muscle, fascia and tendon of lower back, initial encounter (ICD-10) Surgical History Detached retina, left ?H33.22 - Serous retinal detachment, left eye (ICD-10) Cataracts, both eyes ?H26.9 - Unspecified cataract (ICD-10) History of colectomy ?Z90.49 - Acquired absence of other specified parts of digestive tract (ICD- 10) 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 Smoking status: Never smoker Non-prescribed substance use: denies use Previous occupational history: retired Highest level of school completed/degree received: Bachelor's degree Are you now , , , , never or living with a partner: Little interest or pleasure in doing things: not at all Feeling down, depressed, or hopeless: not at all Feel stressed/tense/nervous/anxious/difficulty sleeping: not at all Do you think of yourself as: straight/heterosexual Gender Identity: male Meds Home Medications and Allergies Home Medications Medication Instructions Recorded Confirmed Type aspirin 81 mg tablet,delayed 81 mg PO DAILY 05/20/23 05/20/23 History release atorvastatin 40 mg tablet 40 mg PO DAILY 05/20/23 05/20/23 History dorzolamide 22.3 mg-timolol 6.8 1 drp ophthalmic (eye) BID 05/20/23 05/20/23 History mg/mL eye drops icosapent ethyl 1 gram capsule 2 g PO BID 05/20/23 05/20/23 History latanoprost 0.005 % eye drops 1 drp ophthalmic (eye) .QHS 05/20/23 05/20/23 History lisinopril 10 mg tablet 10 mg PO DAILY 05/20/23 05/20/23 History meloxicam 15 mg tablet 15 mg PO DAILY 05/20/23 05/20/23 History metoprolol tartrate 25 mg tablet 12.5 mg PO BID 05/20/23 05/20/23 History netarsudil 0.02 % eye drops 1 drp ophthalmic (eye) DAILY 05/20/23 05/20/23 History (Rhopressa) tamsulosin 0.4 mg capsule 0.4 mg PO BID 05/20/23 05/20/23 History baclofen 20 mg tablet 20 mg PO .q #14 tabs 05/21/23 Rx levofloxacin 500 mg tablet 500 mg PO DAILY 5 days #5 tabs 05/21/23 Rx Allergies Allergy/AdvReac Type Severity Reaction Status Date / Time No Known Drug Allergies Allergy Verified 05/20/23 13:49 Exam Narrative Exam Narrative: Psych-alert and oriented x 3. Attentive and appropriate, constitutionally no rmal, displays normal mood and affect per situation.? There are no obvious deficits in memory, reasoning, or intellect.? Skin-no obvious rashes, bruising, erythema noted to the patient's area of pain. Extremities- extremities are warm with minimal edema and palpable pulses. Lumbar-no significant tenderness to palpation noted in the lumbar spine and paraspinal musculature.? Pain is elicited with extension, and lateral rotation of the lumbar spine. Range of motion is slightly diminished with these motions due to pain. Facet loading maneuvers are positive bilaterally and do appear to be concordant with the patient's normal complaints of pain.? Coordination remains intact.? Gait remains non-antalgic. Assessment and Plan Assessment and Plan (1) Lumbar spondylosis: Plan 83yom who presents for assessment. Failed conservative measures, as noted. Imaging reviewed, as noted. Given symptoms and imaging, prudent to attempt diagnostic bilateral L4-5, L5-S1 medial branch blocks under fluoroscopic guidance with intention of proceeding to radiofrequency ablation. He is in agreement. Medications reviewed, no changes. Follow up after procedure.
== END 2023-09-23 13:06 | disposition home or self-care (01) ==
LOC: PM 13:05
PROVIDERS: PCP Family Medicine; Visit Provider Anesthesiology
DX: M47.816 Spondylosis without myelopathy or radiculopathy, lumbar region (principal)
CPT/HCPCS: G0463

== ENCOUNTER 2023-09-30 08:54 | Day surgery (SDC) | payer MEDICARE, SELFPAY ==
[2023-09-30 08:59] VITALS: BP 142/80; PULSE 68; RESP 16; TEMP 36.6
--- OUTSIDE RECORDS SUMMARY | 2023-09-30 08:59 | XMS_ITS | CCD ---
Author Name Unknown Address [facility] [facility] [address] [place] [address] Organization [facility] Care Team Providers Care Forensic Ballistics Expert Name Role Phone Eliana Ba Primary Care Physician [phone] MD Reno VALENTIN Attending Unavailable MD Reno VALENTIN Attending Unavailable MD Reno VALENTIN Attending Unavailable MD Reno VALENTIN Attending Unavailable MD Reno VALENTIN Attending Unavailable GERONIMO ., KARLOS Admitting Unavailable GERONIMO ., KARLOS Consulting Unavailable GERONIMO ., KARLOS Attending Unavailable ABEBAY ., DR MONROY Primary Care Unavailable Mayra Lopez Consulting Unavailable ABEBAY ., DR MONROY Attending Unavailable HOY ., DR MONROY Admitting Unavailable HOY ., DR MONROY Primary Care Unavailable HOY ., DR MONROY Consulting Unavailable HOY ., DR MONROY Attending Unavailable HOY ., DR MONROY Admitting Unavailable HOY ., DR MONROY Primary Care Unavailable HOY ., DR MONROY Consulting Unavailable CALVIN BARNES Consulting Unavailable Rocio Chan Unavailable Arun COE, Fabrice Conner Attending Unavailable Arun COE, Fabrice Conner Attending Unavailable Allergies Allergy Classification Reported Allergen(s) Allergy Type Date of Onset Reaction(s) Facility (2 sources) levoFLOXacin; Translations: [levofloxacin] Drug Allergy Irritation (qualifier value) [facility] Medications Current Medications Medication Drug Class(es) Dates [...] day(s), # 20 cap(s), Refills(s) 0, Pharmacy: [id number], 160, cm, 09/26/22 13:50:00 EST, Height/Length Dosing, [...] BID, # 180 cap(s), Refills(s) 3, Pharmacy: [place] [id number] [facility], 160, cm, 10/16/21 14:26:00 EST, Height/Length Dosing, [...] 10-16-2021 Episodic Other aftercare (1 source) Other correction (current) drug therapy; Translations: [OTH [facility] CURRENT DRUG THERAPY] Onset: 09-20-2022 Episodic Other aftercare (1 source) snf (current) use of aspirin; Translations: [[facility] CURRENT USE OF ASPIRIN] Onset: 09-20-2022 Episodic [...] (COVID-19) RNA TERRIE+probe Ql (Unsp spec) Positive Intern [place] Other COVID/FLU RT-PCR Negative [facility] Other XR KNEE RT 3Von 01-23-2023 XR KNEE RT 3V EXAM: XR KNEE RT 3V HISTORY: Osteoarthritis of knee COMPARISON: None TECHNIQUE: 3 views FINDINGS: No acute fracture or dislocation. Moderate to severe degenerative changes. Unremarkable soft tissues. IMPRESSION: Moderate to severe degenerative changes. Electronically authenticated by: CALVIN BARNES Date: 2023-01-23 13:29 Normal [facility] Screenson 09-27-2022 Screens [id number] Normal [facility] Patient Educationon 09-26-19 23 Patient Education Infectious [...] Supplies needed: ? Soap. ? 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 ? Standard cleaning products. ? Disinfectants, such [...] water are not available, use alcohol-based hand pot press operator. ? Avoid touching your face, mouth, nose, [...] water. Air-dry your dishes or use a drafter cartographic. ? Do not share dishes or eating [...] certain germs and not others. Read the bank accountant's instructions or read online resources to determine [...] or toil (more content not included)... Normal [facility] Urology Office/Clinic Noteon 09-26-2022 Urology Office/Clinic Note Chief Complaint pt here for f/u from [facility] due to hematuria HPI Staff Pt is here for a hospital f/u from [facility] 09/18/[address] [...] infection today Pt was given Levofloxacin at [facility] ER and he could not tolerate [...] hematuria (R31.0: Gross hematuria) PT went to [facility] ER on 09/18/22 due to hematuria. [...] Within 3 months [facility] [address] [place] [address]- Additional Instructions: UTI F/U Patient Education Infection Prevention in the Home IMerle, personally scribed for Dr. Valentin on 09/26/2022 14:16:39. . Documentation recorded by the scribe, Merle Miranda, accurately reflects the services(s) I performed and decisions made by me. Aut (more content not included)... Normal [facility] Comment on above: Result Comment: Elec tronically Signed By: Reno VALENTIN MD\.br\Date and Time Signed: 09/26/22 14:20 EST\.br\Electronically Co-Signed By: Merle Miranda\.br\Date and Time Co-Signed: 09/26/22 14:16 EST INSULINon 09-25-2022 Insulin 6.0 uIU/mL Normal 2.6-24.9 [facility] Comment on above: Performed By: #### I NSULIN #### [facility] [address] [place] [address] Dr. Wally Zapien BNPon 09-24-2022 Natriuretic peptide B (Bld) [Mass/Vol] 110.0 pg/mL Normal <=1,800.0 [facility] Comment on above: Performed By: #### U RCX #### [facility] [address] [address] [address] Wally Zapien CBC AUTO DIFFon 09-24-2022 BASO # 0.0 103/ul Normal 0.0-0.1 [facility] Comment on above: Performed By: #### C BC #### [facility] [address] [place] [address] Dr. Wally Zapien Basophils/100 WBC (Bld) 1.0 % Normal 0.2-2.0 [facility] Comment on above: Performed By: #### C BC #### [facility] [address] [place] [address] Dr. Wally Zapien EO # 0.2 103/ul Normal 0.0-0.7 [facility] Comment on above: Performed By: #### C BC #### [facility] [address] [place] [address] Dr. Wally Zapien Eosinophils/100 WBC (Bld) 4.2 % Normal 0.9-7.0 [facility] Comment on above: Performed By: #### C BC #### [facility] [address] [place] [address] Dr. Wally Zapien Erythrocyte distribution width (RBC) [Ratio] 12.5 % Normal 11.0-15.0 [facility] Comment on above: Performed By: #### C BC #### [facility] [address] [place] [address] Dr. Wally Zapien Hematocrit (Bld) [Volume fraction] 43.7 % Normal 42.0-54.0 [facility] Comment on above: Performed By: #### C BC #### [facility] [address] [place] [address] Dr. Wally Zapien Hemoglobin (Bld) [Mass/Vol] 15.4 g/dL Normal 14.0-18.0 [facility] Comment on above: Performed By: #### C BC #### [facility] [address] [place] [address] Dr. Wally Zapien IG # 0.02 10e3/ul Normal 0.00-0.03 [facility] Comment on above: Performed By: #### C BC #### [facility] [address] [place] [address] Dr. Wally Zapien IG % 0.5 % Normal 0.0-0.5 [facility] Comment on above: Performed By: #### C BC #### [facility] [address] [place] [address] Dr. Wally Zapien LYMPH # 1.7 103/ul Normal 1.2-3.8 [facility] Comment on above: Performed By: #### C BC #### [facility] [address] [place] [address] Dr. Wally Zapien Lymphocytes/100 WBC (Bld) 42.6 % Normal 20.5-60.0 [facility] Comment on above: Performed By: #### C BC #### [facility] [address] [place] [address] Dr. Wally Zapien MANUAL DIFF REQ NO Normal [facility] Comment on above: Performed By: #### C BC #### [facility] [address] [place] [address] Dr. Wally Zapien MCH (RBC) [Entitic mass] 31.6 pg Normal 25.9-34.0 [facility] Comment on above: Performed By: #### C BC #### [facility] [address] [place] [address] Dr. Wally Zapien MCHC (RBC) [Mass/Vol] 35.2 g/dL Normal 29.9-35.2 [facility] Comment on above: Performed By: #### C BC #### [facility] [address] [place] [address] Dr. Wally Zapien MCV (RBC) [Entitic vol] 89.5 fL Normal 80.0-94.0 [facility] Comment on above: Performed By: #### C BC #### [facility] [address] [place] [address] Dr. Wally Zapien MONO # 0.4 103/ul Normal 0.3-0.8 [facility] Comment on above: Performed By: #### C BC #### [facility] [address] [place] [address] Dr. Wally Zapien Monocytes/100 WBC (Bld) 9.2 % Normal 1.7-12.0 [facility] Comment on above: Performed By: #### C BC #### [facility] [address] [place] [address] Dr. Wally Zapien NEUT # 1.7 103/ul Normal 1.4-6.5 [facility] Comment on above: Performed By: #### C BC #### [facility] [address] [place] [address] Dr. Wally Zapien Neutrophils/100 WBC (Bld) 42.5 % Critically low 43.0-75.0 [facility] Comment on above: Performed By: #### C BC #### [facility] [address] [place] [address] Dr. Wally Zapien Platelet mean volume (Bld) [Entitic vol] 9.9 fL Normal 9.5-13.5 [facility] Comment on above: Performed By: #### C BC #### [facility] [address] [place] [address] Dr. Wally Zapien PLT 149 103/ul Critically low 150-450 [facility] Comment on above: Performed By: #### C BC #### [facility] [address] [place] [address] Dr. Wally Zapien RBC 4.88 106/ul Normal 4.70-6.10 [facility] Comment on above: Performed By: #### C BC #### [facility] [address] [place] [address] Dr. Wally Zapien WBC 4.0 103/ul Normal 4.0-11.0 [facility] Comment on above: Performed By: #### C BC #### [facility] [address] [place] [address] Dr. Wally Zapien CULTURE URINEon 09-24-2022 CULTURE URINE Culture Observations: LIGHT GROWTH OF MIXED SKIN GENNA. NO POTENTIAL PATHOGENS SEEN. Normal [facility] Comment on above: Performed By: #### U RCX #### [facility] [address] [place] [address] Dr. Wally Zapien FREE THYROXINE INDEX T7on FTI 2.52 Normal 1.30-4.50 [facility] Comment on above: Performed By: #### U RCX #### [facility] [address] [address] [address] Wally Zapien T3U 36.0 % Normal 33.0-40.0 [facility] Comment on above: Performed By: #### U RCX #### [facility] [address] [address] [address] Wally Zapien T4 [Mass/Vol] 7.00 ug/dL Normal 4.50-12.[address] [facility] Comment on above: Performed By: #### U RCX #### [facility] [address] [address] [address] Wally Zapien GLYCOHEMOGLOBIN A1Con 2022 ADA RECOMMENDATION SEE BELOW Normal [facility] Comment on above: Result Comment: ADA RECOMMENDED LIMIT 4.0 - 6.0 ADA THERAPEUTIC TARGET < 7.0 ACTION SUGGESTED > 7.0 Performed By: #### A 1C #### [facility] [address] [place] [address] Dr. Wally Zapien Glucose [Mass/Vol] 123 mg/dL Normal [facility] Comment on above: Performed By: #### A 1C #### [facility] [address] [place] [address] Dr. Wally Zapien HbA1c (Bld) [Mass fraction] 5.9 % Normal 4.5-6.2 [facility] Comment on above: Performed By: #### A 1C #### [facility] [address] [place] [address] Dr. Wally Zapien LIPID PROFILEon 09-24-2022 CHOL-HDL RATIO NORM SEE BELOW Normal [facility] Comment on above: Result Comment: 3.3 - 4.4 LOW RISK 4.4 - 7.1 AVERAGE RISK 7.1 - 11.0 MODERATE RISK >11.0 HIGH RISK Performed By: #### U RCX #### [facility] [address] [place] [address] Dr. Wally Zapien Cholesterol [Mass/Vol] 117 mg/dL Normal <=200 [facility] Comment on above: Performed By: #### U RCX #### [facility] [address] [address] [address] Wally Zapien Cholesterol in HDL [Mass/Vol] 38 mg/dL Critically low 40-60 [facility] Comment on above: Performed By: #### U RCX #### [facility] [address] [address] [address] Wally Zapien Cholesterol in LDL [Mass/Vol] 32.6 mg/dL Normal [facility] Comment on above: Performed By: #### U RCX #### [facility] [address] [address] [address] Wally Zapien Cholesterol.total/Ch olesterol in HDL [Mass ratio] 3.1 {ratio} Normal [facility] Comment on above: Performed By: #### U RCX #### [facility] [address] [address] [address] Wally Zapien HDL NORMAL > or = 60 mg/dl - LOW CARDIOVASCULAR RISK <40 mg/dl - HIGH CARDIOVASCULAR RISK Normal [facility] Comment on above: Performed By: #### U RCX #### [facility] [address] [address] [address] Wally Zapien LDL CALC NORMAL SEE BELOW Normal [facility] Comment on above: Result Comment: <100 mg/dl OPTIMAL 100 - 129 mg/dl NEAR OR ABOVE OPTIMAL 130 - 159 mg/dl BORDERLINE HIGH 160 - 189 mg/dl HIGH >190 mg/dl VERY HIGH Performed By: #### U RCX #### [facility] [address] [address] [address] Wally Zapien Triglyceride [Mass/Vol] 232 mg/dL Critically high <=150 [facility] Comment on above: Performed By: #### U RCX #### [facility] [address] [address] [address] Wally Zapien VLDL CALC 46.4 mg/dL Normal [facility] Comment on above: Performed By: #### U RCX #### [facility] [address] [address] [address] Wally Zapien PROF 14(COMP METB)on 023 Albumin [Mass/Vol] 3.8 g/dL Normal 3.4-5.0 [facility] Comment on above: Performed By: #### B REHABILITATION ATTENDANT, T7, LIPID, TSH, CMP, URIC #### [facility] [address] [place] [address] Dr. Wally Zapien Albumin/Globulin [Mass ratio] 1.2 {ratio} Normal [facility] Comment on above: Performed By: #### B REHABILITATION ATTENDANT, T7, LIPID, TSH, CMP, URIC #### [facility] [address] [place] [address] Dr. Wally Zapien ALP [Catalytic activity/Vol] 80 U/L Normal 46-116 [facility] Comment on above: Performed By: #### B REHABILITATION ATTENDANT, T7, LIPID, TSH, CMP, URIC #### [facility] [address] [place] [address] Dr. Wally Zapien ALT [Catalytic activity/Vol] 34 U/L Normal 16-63 [facility] Comment on above: Performed By: #### B REHABILITATION ATTENDANT, T7, LIPID, TSH, CMP, URIC #### [facility] [address] [place] [address] Dr. Wally Zapien Anion gap [Moles/Vol] 11.3 mmol/L Normal [facility] Comment on above: Performed By: #### B REHABILITATION ATTENDANT, T7, LIPID, TSH, CMP, URIC #### [facility] [address] [place] [address] Dr. Wally Zapien AST [Catalytic activity/Vol] 24 U/L Normal 15-37 [facility] Comment on above: Performed By: #### B REHABILITATION ATTENDANT, T7, LIPID, TSH, CMP, URIC #### [facility] [address] [place] [address] Dr. Wally Zapien Bilirubin [Mass/Vol] 1.0 mg/dL Normal 0.2-1.0 [facility] Comment on above: Performed By: #### B REHABILITATION ATTENDANT, T7, LIPID, TSH, CMP, URIC #### [facility] [address] [place] [address] Dr. Wally Zapien Calcium [Mass/Vol] 8.5 mg/dL Normal 8.5-10.1 [facility] Comment on above: Performed By: #### B REHABILITATION ATTENDANT, T7, LIPID, TSH, CMP, URIC #### [facility] [address] [address] [address] Wally Zapien Chloride [Moles/Vol] 105 mmol/L Normal 98-107 [facility] Comment on above: Performed By: #### B REHABILITATION ATTENDANT, T7, LIPID, TSH, CMP, URIC #### [facility] [address] [address] [address] Wally Zapien CO2 [Moles/Vol] 28.6 mmol/L Normal 21.0-32.0 [facility] Comment on above: Performed By: #### B REHABILITATION ATTENDANT, T7, LIPID, TSH, CMP, URIC #### [facility] [address] [place] [address] Dr. Wally Zapien Creatinine [Mass/Vol] 0.74 mg/dL Normal 0.70-1.30 [facility] Comment on above: Performed By: #### B REHABILITATION ATTENDANT, T7, LIPID, TSH, CMP, URIC #### [facility] [address] [place] [address] Dr. Wally Zapien EGFR-AF MARTINIQUAIS >60 Normal >=60 [facility] Comment on above: Performed By: #### B REHABILITATION ATTENDANT, T7, LIPID, TSH, CMP, URIC #### [facility] [address] [place] [address] Dr. Wally Zapien EGFR-NON AF MARTINIQUAIS >60 Normal >=60 [facility] Comment on above: Performed By: #### B REHABILITATION ATTENDANT, T7, LIPID, TSH, CMP, URIC #### [facility] [address] [place] [address] Dr. Wally Zapien Globulin (S) [Mass/Vol] 3.2 g/dL Normal [facility] Comment on above: Performed By: #### B REHABILITATION ATTENDANT, T7, LIPID, TSH, CMP, URIC #### [facility] [address] [place] [address] Dr. Wally Zapien Glucose [Mass/Vol] 102 mg/dL Normal 74-106 [facility] Comment on above: Performed By: #### B REHABILITATION ATTENDANT, T7, LIPID, TSH, CMP, URIC #### [facility] [address] [place] [address] Dr. Wally Zapien Potassium [Moles/Vol] 3.9 mmol/L Normal 3.5-5.1 [facility] Comment on above: Performed By: #### B REHABILITATION ATTENDANT, T7, LIPID, TSH, CMP, URIC #### [facility] [address] [place] [address] Dr. Wally Zapien Protein [Mass/Vol] 7.0 g/dL Normal 6.4-8.2 [facility] Comment on above: Performed By: #### B REHABILITATION ATTENDANT, T7, LIPID, TSH, CMP, URIC #### [facility] [address] [place] [address] Dr. Wally Zapien Sodium [Moles/Vol] 141 mmol/L Normal 136-145 [facility] Comment on above: Performed By: #### B REHABILITATION ATTENDANT, T7, LIPID, TSH, CMP, URIC #### [facility] [address] [place] [address] Dr. Wally Zapien Urea nitrogen [Mass/Vol] 19.0 mg/dL Critically high 7.0-18.0 [facility] Comment on above: Performed By: #### B REHABILITATION ATTENDANT, T7, LIPID, TSH, CMP, URIC #### [facility] [address] [place] [address] Dr. Wally Zapien Urea nitrogen/Creatinine [Mass ratio] 25.7 mg/mg Normal [facility] Comment on above: Performed By: #### B REHABILITATION ATTENDANT, T7, LIPID, TSH, CMP, URIC #### [facility] [address] [place] [address] Dr. Wally Zapien TSHon 09-24-2022 TSH 1.535 uIU/mL Normal 0.358-3.[address] [facility] Comment on above: Performed By: #### U RCX #### [facility] [address] [place] [address] Dr. Wally Zapien UA RANDOM W/MICROSCOPICon BACTERIA NONE SEEN Normal NONE SEEN [facility] Comment on above: Performed By: #### U RCX #### [facility] [address] [address] [address] Wally Zapien Bilirubin Ql (U) Negative Normal NEGATIVE [facility] Comment on above: Performed By: #### U RCX #### [facility] [address] [address] [address] Wally Zapien CAST NONE SEEN Normal NONE SEEN [facility] Comment on above: Performed By: #### U RCX #### [facility] [address] [address] [address] Wally Zapien Clarity (U) CLEAR Normal CLEAR [facility] Comment on above: Performed By: #### U RCX #### [facility] [address] [address] [address] Wally Zapien Color (U) YELLOW Normal YELLOW [facility] Comment on above: Performed By: #### U RCX #### [facility] [address] [address] [address] Wally Zapien Crystals LM Nom (Urine sed) NONE SEEN Normal NONE SEEN [facility] Comment on above: Performed By: #### U RCX #### [facility] [address] [address] [address] Wally Zapien Epithelial cells LM Ql (Urine sed) FEW Abnormal NONE SEEN /RARE [facility] Comment on above: Performed By: #### U RCX #### [facility] [address] [address] [address] Wally Zapien Glucose Ql (U) Negative Normal NEGATIVE [facility] Comment on above: Performed By: #### U RCX #### [facility] [address] [address] [address] Wally Zapien Hemoglobin Ql (U) TRACE-INTACT Abnormal NEGATIVE [facility] Comment on above: Performed By: #### U RCX #### [facility] [address] [address] [address] Wally Zapien Ketones Ql (U) Negative Normal NEGATIVE [facility] Comment on above: Performed By: #### U RCX #### [facility] [address] [address] [address] Wally Zapien LEUKOCYTES Negative Normal NEGATIVE [facility] Comment on above: Performed By: #### U RCX #### [facility] [address] [address] [address] Wally Zapien MUCOUS LARGE Abnormal NONE SEEN [facility] Comment on above: Performed By: #### U RCX #### [facility] [address] [address] [address] Wally Zapien Nitrite Ql (U) Negative Normal NEGATIVE [facility] Comment on above: Performed By: #### U RCX #### [facility] [address] [place] [address] Dr. Wally Zapien pH (U) 6.5 [pH] Normal 5-9 [facility] Comment on above: Performed By: #### U RCX #### [facility] [address] [place] [address] Dr. Wally Zapien RBC 2-5 Abnormal 0-2 [facility] Comment on above: Performed By: #### U RCX #### [facility] [address] [place] [address] Dr. Wally Zapien SPEC GRAVITY 1.025 Normal 1.005-<=1.025 [facility] Comment on above: Performed By: #### U RCX #### [facility] [address] [place] [address] Dr. Wally Zapien UA PROTEIN TRACE Normal NEGATIVE/ TRACE [facility] Comment on above: Performed By: #### U RCX #### [facility] [address] [place] [address] Dr. Wally Zapien Urobilinogen Qn (U) 1.0 {Suma'U}/dL Normal 0.2 - 1. 0 [facility] Comment on above: Performed By: #### U RCX #### [facility] [address] [place] [address] Dr. Wally Zapien WBC 0-2 Abnormal NONE SEEN [facility] Comment on above: Performed By: #### U RCX #### [facility] [address] [place] [address] Dr. Wally Zapien URIC ACID SERUMon 09-24-2022 Urate [Mass/Vol] 3.7 mg/dL Normal 3.5-7.2 [facility] Comment on above: Performed By: #### B REHABILITATION ATTENDANT, T7, LIPID, TSH, CMP, URIC #### [facility] [address] [place] [address] Dr. Wally Zapien VITAMIN D 25 OHon 09-24-2022 VIT D 25-OH 42.6 ng/mL Normal [facility] Comment on above: Performed By: #### U RCX #### [facility] [address] [place] [address] Dr. Wally Zapien VIT D RANGES SEE BELOW Normal [facility] Comment on above: Result Comment: <20 ng/mL Vit D deficient 20 - <30 ng/mL Vit D insufficient 30 - 100 ng/mL Vit D sufficient >100 ng/mL Potential Toxicity Performed By: #### U RCX #### [facility] [address] [place] [address] Dr. Wally Zapien ED Note-Physicianon 09-19-19 23 ED Note-Physician [id number] #1.00CD:127 Normal [facility] Lab Reportson 09-19-2022 Lab Reports [id number]#1.00CD:127 Normal [facility] RAD - CT Reporton 09-19-2022 RAD - CT Report [id number] 3#1.00CD:127 Normal [facility] CBC AUTO DIFFon 09-18-2022 BASO # 0.0 103/ul Normal 0.0-0.1 [facility] Comment on above: Performed By: #### C BC #### [facility] [address] [place] [address] Dr. Wally Zapien Basophils/100 WBC (Bld) 0.7 % Normal 0.2-2.0 [facility] Comment on above: Performed By: #### C BC #### [facility] [address] [place] [address] Dr. Wally Zapien EO # 0.1 103/ul Normal 0.0-0.7 [facility] Comment on above: Performed By: #### C BC #### [facility] [address] [place] [address] Dr. Wally Zapien Eosinophils/100 WBC (Bld) 2.8 % Normal 0.9-7.0 [facility] Comment on above: Performed By: #### C BC #### [facility] [address] [place] [address] Dr. Wally Zapien Erythrocyte distribution width (RBC) [Ratio] 12.7 % Normal 11.0-15.0 [facility] Comment on above: Performed By: #### C BC #### [facility] [address] [place] [address] Dr. Wally Zapien Hematocrit (Bld) [Volume fraction] 44.1 % Normal 42.0-54.0 [facility] Comment on above: Performed By: #### C BC #### [facility] [address] [place] [address] Dr. Wally Zapien Hemoglobin (Bld) [Mass/Vol] 15.3 g/dL Normal 14.0-18.0 [facility] Comment on above: Performed By: #### C BC #### [facility] [address] [place] [address] Dr. Wally Zapien IG # 0.01 10e3/ul Normal 0.00-0.03 [facility] Comment on above: Performed By: #### C BC #### [facility] [address] [place] [address] Dr. Wally Zapien IG % 0.2 % Normal 0.0-0.5 [facility] Comment on above: Performed By: #### C BC #### [facility] [address] [place] [address] Dr. Wally Zapien LYMPH # 1.8 103/ul Normal 1.2-3.8 [facility] Comment on above: Performed By: #### C BC #### [facility] [address] [place] [address] Dr. Wally Zapien Lymphocytes/100 WBC (Bld) 43.0 % Normal 20.5-60.0 [facility] Comment on above: Performed By: #### C BC #### [facility] [address] [place] [address] Dr. Wally Zapien MANUAL DIFF REQ NO Normal [facility] Comment on above: Performed By: #### C BC #### [facility] [address] [place] [address] Dr. Wally Zapien MCH (RBC) [Entitic mass] 32.1 pg Normal 25.9-34.0 [facility] Comment on above: Performed By: #### C BC #### [facility] [address] [place] [address] Dr. Wally Zapien MCHC (RBC) [Mass/Vol] 34.7 g/dL Normal 29.9-35.2 [facility] Comment on above: Performed By: #### C BC #### [facility] [address] [place] [address] Dr. Wally Zapien MCV (RBC) [Entitic vol] 92.5 fL Normal 80.0-94.0 [facility] Comment on above: Performed By: #### C BC #### [facility] [address] [place] [address] Dr. Wally Zapien MONO # 0.4 103/ul Normal 0.3-0.8 [facility] Comment on above: Performed By: #### C BC #### [facility] [address] [place] [address] Dr. Wally Zapien Monocytes/100 WBC (Bld) 9.2 % Normal 1.7-12.0 [facility] Comment on above: Performed By: #### C BC #### [facility] [address] [place] [address] Dr. Wally Zapien NEUT # 1.9 103/ul Normal 1.4-6.5 [facility] Comment on above: Performed By: #### C BC #### [facility] [address] [place] [address] Dr. Wally Zapien Neutrophils/100 WBC (Bld) 44.1 % Normal 43.0-75.0 [facility] Comment on above: Performed By: #### C BC #### [facility] [address] [place] [address] Dr. Wally Zapien Platelet mean volume (Bld) [Entitic vol] 10.4 fL Normal 9.5-13.5 [facility] Comment on above: Performed By: #### C BC #### [facility] [address] [place] [address] Dr. Wally Zapien PLT 152 103/ul Normal 150-450 [facility] Comment on above: Performed By: #### C BC #### [facility] [address] [place] [address] Dr. Wally Zapien RBC 4.77 106/ul Normal 4.70-6.10 [facility] Comment on above: Performed By: #### C BC #### [facility] [address] [place] [address] Dr. Wally Zapien WBC 4.2 103/ul Normal 4.0-11.0 [facility] Comment on above: Performed By: #### C BC #### [facility] [address] [place] [address] ABD/PELVIS WO CONon [...] MAYRA LOPEZ Date: 2022-09-18 13:40 Normal [facility] ER URINE PROFILEon 3 Bilirubin Ql (U) SMALL Abnormal NEGATIVE [facility] Comment on above: Performed By: #### KERRI PADRON #### [facility] [address] [place] [address] Dr. Wally Zapien Clarity (U) SL CLOUDY Abnormal CLEAR [facility] Comment on above: Performed By: #### KERRI PADRON #### [facility] [address] [place] [address] Dr. Wally Zapien Color (U) RED Abnormal YELLOW [facility] Comment on above: Performed By: #### KERRI APDRON #### [facility] [address] [place] [address] Dr. Wally GERBER A micrscopic examination will be performed if indicated. Normal [facility] Comment on above: Performed By: #### KERRI PADRON #### [facility] [address] [place] [address] Dr. Wally Zapien Glucose Ql (U) Negative Normal NEGATIVE [facility] Comment on above: Performed By: #### KERRI PADRON #### [facility] [address] [place] [address] Dr. Wally Zapien Hemoglobin Ql (U) LARGE Abnormal NEGATIVE [facility] Comment on above: Performed By: #### E LAZARO, UMICRO #### [facility] [address] [place] [address] Dr. Wally Zapien Ketones Ql (U) TRACE Abnormal NEGATIVE [facility] Comment on above: Performed By: #### E SANJAYR, UMICRO #### [facility] [address] [place] [address] Dr. Wally Zapien LEUKOCYTES TRACE Abnormal NEGATIVE [facility] Comment on above: Performed By: #### E LAZARO, UMICRO #### [facility] [address] [place] [address] Dr. Wally Zapien Nitrite Ql (U) Positive Abnormal NEGATIVE [facility] Comment on above: Performed By: #### Olinda WILLIS, UMICRO #### [facility] [address] [place] [address] Dr. Wally Zapien pH (U) 5.5 [pH] Normal 5-9 [facility] Comment on above: Performed By: #### Olinda WILLIS UMICRO #### [facility] [address] [place] [address] Dr. Wally Zapien Protein (U) [Mass/Vol] 100 mg/dL Abnormal NEGATIVE/ TRACE [facility] Comment on above: Performed By: #### Olinda WILLIS, UMICRO #### [facility] [address] [place] [address] Dr. Wally Zapien SPEC GRAVITY 1.025 Normal 1.005-<=1.025 [facility] Comment on above: Performed By: #### Olinda WILLIS, UMICRO #### [facility] [address] [place] [address] Dr. Wally Zapien UR MICRO IND INDICATED Normal [facility] Comment on above: Performed By: #### Olinda WILLIS, UMICRO #### [facility] [address] [place] [address] Dr. Wally Zapien Urobilinogen Qn (U) 1.0 {Suma'U}/dL Normal 0.2 - 1. 0 [facility] Comment on above: Performed By: #### E KERRI WILLIS #### [facility] [address] [address] [address] Wally Zapien PROF CHEM 8 (BAS METB)on Anion gap [Moles/Vol] 10.5 mmol/L Normal [facility] Comment on above: Performed By: #### U RCX #### [facility] [address] [address] [address] Wally Zapien Calcium [Mass/Vol] 8.6 mg/dL Normal 8.5-10.1 [facility] Comment on above: Performed By: #### U RCX #### [facility] [address] [place] [address] Dr. Wally Zapien Chloride [Moles/Vol] 105 mmol/L Normal 98-107 [facility] Comment on above: Performed By: #### U RCX #### [facility] [address] [place] [address] Dr. Wally Zapien CO2 [Moles/Vol] 28.8 mmol/L Normal 21.0-32.0 [facility] Comment on above: Performed By: #### U RCX #### [facility] [address] [place] [address] Dr. Wally Zapien Creatinine [Mass/Vol] 0.85 mg/dL Normal 0.70-1.30 [facility] Comment on above: Performed By: #### U RCX #### [facility] [address] [place] [address] Dr. Wally Zapien EGFR-AF MARTINIQUAIS >60 Normal >=60 [facility] Comment on above: Performed By: #### U RCX #### [facility] [address] [place] [address] Dr. Wally Zapien EGFR-NON AF MARTINIQUAIS >60 Normal >=60 [facility] Comment on above: Performed By: #### U RCX #### [facility] [address] [place] [address] Dr. Wally Zapien Glucose [Mass/Vol] 112 mg/dL Critically high 74-106 [facility] Comment on above: Performed By: #### U RCX #### [facility] [address] [address] [address] Wally Zapien Potassium [Moles/Vol] 4.3 mmol/L Normal 3.5-5.1 [facility] Comment on above: Performed By: #### U RCX #### [facility] [address] [address] [address] Wally Zapien Sodium [Moles/Vol] 140 mmol/L Normal 136-145 [facility] Comment on above: Performed By: #### U RCX #### [facility] [address] [address] [address] Wally Zpaien Urea nitrogen [Mass/Vol] 23.0 mg/dL Critically high 7.0-18.0 [facility] Comment on above: Performed By: #### U RCX #### [facility] [address] [place] [address] Dr. Wally Zapien Urea nitrogen/Creatinine [Mass ratio] 27.1 mg/mg Normal [facility] Comment on above: Performed By: #### U RCX #### [facility] [address] [place] [address] Dr. Wally Zapien URINE MICROSCOPIC ONLYon BACTERIA TRACE Abnormal NONE SEEN [facility] Comment on above: Performed By: #### Olinda WILLIS UMICRO #### [facility] [address] [place] [address] Dr. Wally Zapien Bacteria identified Cx Nom (U) NOT INDICATED Normal [facility] Comment on above: Performed By: #### E RUR UMICRO #### [facility] [address] [place] [address] Dr. Wally Zapien CAST NONE SEEN Normal NONE SEEN [facility] Comment on above: Performed By: #### E LAZARO UMICRO #### [facility] [address] [place] [address] Dr. Wally Zapien Crystals LM Nom (Urine sed) NONE SEEN Normal NONE SEEN [facility] Comment on above: Performed By: #### E RUJanell UMICRO #### [facility] [address] [address] [address] Wally Zapien Epithelial cells LM Ql (Urine sed) RARE Normal NONE SEEN /RARE [facility] Comment on above: Performed By: #### E SANJAYR, UMICRO #### [facility] [address] [address] [address] Wally Zapien MUCOUS NONE SEEN Normal NONE SEEN [facility] Comment on above: Performed By: #### E SANJAYR, UMICRO #### [facility] [address] [address] [address] Wally Zapien RBC (U) [#/Vol] /uL Abnormal 0-2 [facility] Comment on above: Performed By: #### E SANJAYR, UMVIANCARO #### [facility] [address] [address] [address] Wally Zapien WBC 2-5 Abnormal NONE SEEN [facility] Comment on above: Performed By: #### Olinda WILLIS, UMICRO #### [facility] [address] [address] [address] Wally Zapien Patient Educationon 04-16-20 Patient [...] You could (more content not included)... Normal [facility] Urology Office/Clinic Noteon 04-16-2022 Urology Office/Clinic Note Chief Complaint 6 month follow up HPI Staff Prashanth is here today for a 6 month [...] Contact Information JAYDON COE, Reno Maciel, URL In [address] [facility] [place] [id number] [facility] (1) Additional Instructions: Patient Education Benign Prostatic Hyperplasia Calorie Counting for Weight Loss IBetina personally scribed for Dr. Valentin on 04/16/2022 14:50:24. . Documentation recorded by the scribe, Betina Johns, accurately reflects the services(s) I performed and [...] vaccine 07/06 (more content not included)... 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 Tests Performed Urnls Dip Stick Auto w/o Microscopy POC 80863 Your Care Team Attending Physician - Reno [...] Cheng When: Where: [facility] [address] [place] [address] [facility] (1) Medications What How Much When Instructions [...] Urnls Dip Stick Auto w/o Microscopy POC 27435 (10/16/2021) Bilirubin Urine Dipstick - Negative Blood Urine Dipstick - Negative Glucose Urine Dipstick - Negative Ketones Urine Dipstick - Negative Leukocytes Urine Dipstick - Trace Nitrite Urine Dipstick - Negative Protein Urine Dipstick - 2+ (100 mg/dl) Specific [place] Urine Dipstick - 1.025 Urine Appearance Urine [...] urine fr (more content not included)... Normal [facility] Patient Educationon 10-16-19 Patient Education Urology Urethral [...] Follow these instructions at home: ? Take [id number] and prescription medicines only as told by [...] 09/07/2016 Document Revised: 03/25/2019 Document Reviewed: 03/25/2019 [employer] Patient Education ? 2019 [employer]. [facility] Urology Office/Clinic Noteon 10-16-2021 Urology Office/Clinic Note [...] and history for this patient from Dr. Valentin. I have reviewed and verified the staff [...] Reno Maciel, URL [facility] [address] [place] [address]- [facility] (1) Additional Instructions: 6 month follow up [...] disease: Mother. (more content not included)... Normal [facility] Comment on above: Result Comment: Elec tronically Signed By: Reno VALENTIN MD\.br\Date and Time Signed: 10/16/21 14:57 EST\.br\Electronically Co-Signed By: Katherine Nolasco\.br\Date and Time Co-Signed: 10/16/21 14:55 EST Vital Signs Date Time Vital Sign Value Performing Clinician Facility 07-17-2023 15:40-0500 Body height 160.02 cm Rocio Chan Other [facility] Other 07-17-2023 15:40-0500 Body mass index (BMI) [Ratio] 37.55 kg/m2 Rocio Chan Other [facility] Other 07-17-2023 15:40-0500 Body temperature 98.2 [degF] Rocio Nullmond Other [facility] Other 07-17-2023 15:40-0500 Body weight 96.16 kg Rocio Chan Other [facility] Other 07-17-2023 15:40-0500 Diastolic blood pressure 76 mm[Hg] Rocio Nullmond Other [facility] Other 07-17-2023 15:40-0500 Respiratory rate 18 /min Rocio Nullmond Other [facility] Other 07-17-2023 15:40-0500 SaO2% (BldA) [Mass fraction] 96 % Rocio Nullmond Other [facility] Other 07-17-2023 15:40-0500 Systolic blood pressure 134 mm[Hg] Rocio Rocio Other [facility] Other 09-26-2022 13:26-0500 Blood Pressure Location Reno VALENTIN [facility] 09-26-2022 13:26-0500 Diastolic blood pressure 74 mm[Hg] Reno VALENTIN [facility] 09-26-2022 13:26-0500 Heart rate 52 /min Reno VALENTIN [facility] 09-26-2022 13:26-0500 Systolic blood pressure 173 mm[Hg] Reno VALENTIN [facility] 04-16-2022 13:49-0400 Diastolic blood pressure 87 mm[Hg] Reno VALENTIN [facility] 04-16-2022 13:49-0400 Mean blood pressure 110 mm[Hg] Reno VALENTIN [facility] 04-16-2022 13:49-0400 Systolic blood pressure 156 mm[Hg] Reno VALENTIN [facility] 04-16-2022 13:37-0400 Blood Pressure Location Reno VALENTIN [facility] 04-16-2022 13:37-0400 Diastolic blood pressure 102 mm[Hg] Reno VALENTIN [facility] 04-16-2022 13:37-0400 Heart rate 81 /min Reno VALENTIN [facility] 04-16-2022 13:37-0400 Respiratory rate 16 /min Reno VALENTIN [facility] 04-16-2022 13:37-0400 Systolic blood pressure 191 mm[Hg] Renonoe VALENTIN [facility] Encounters Encounter Date Encounter Type Care Provider Facility Start: 2023 End: 09-24-2023 ambulatory Fabrice Dias MD Facility:[facility] Start: 07-17-2023 End: 07-17-2023 ambulatory Rocio Chan Other [facility] Other Start: 07-17-2023 Office outpatient visit [address] [facility] Start: 05-27-2023 End: 05-28-2023 ambulatory Fabrice Dias MD Facility:[facility] Start: 04-19-2023 ambulatory MD Reno VALENTIN Fac ility:[facility] Start: 01-23-[address] ELIANA BA . Facili ty:[facility] Start: 01-16-2023 ambulatory MD Reno VALENTIN Fac ility:[facility] Start: 09-26-2022 End: 09-27-2022 ambulatory MD Reno VALENTIN Facility:[facility] Start: 09-26-2022 End: 09-26-2022 Patient encounter procedure Reno VALENTIN [facility] [place] Start: 09-24-2022 End: 09-25-[address] ELIANA BA . Facility:[facility] Start: 09-18-2022 End: 09-18-2022 ambulatory KARLOS MELTON . Facility:[facility] Start: 04-16-2022 End: 04-17-2022 ambulatory MD Reno VALENTIN Facility:[facility] [place] Start: 04-16-2022 End: 04-16-2022 Patient encounter procedure Reno VALENTIN [facility] Start: 10-16-2021 ambulatory MD Reno VALENTIN Facil ity:[facility] Start: 10-16-2021 End: 10-17-2021 ambulatory MD Reno VALENTIN Facility:[facility] Procedures Date Procedure Procedure Detail Performing Clinician Start: 09-24-2022 PSA screening KARLOS ALVAREZ . Comment on above: Performed By: #### U RCX #### [facility] [address] [place] [address] Dr. Wally Zapien Start: 03-17-2019 Cystoscope, device ( physical object) Reno VALENTIN Cardiac catheterization Patr ick VALENTIN Coronary artery bypass graft Reno VALENTIN Extraction of cataract Patri ck VALENTIN Hydrocelectomy Renonoe MEYER S Inguinal herniorrhaphy Patri ck VALENTIN Large intestine excision Ludivina VALENTIN Prosthetic arthropla sty of the hip [place] VALENTIN Repair of musculoten dinous cuff of shoulder Reno VALENTIN Tonsillectomy and adenoidectomy [place]o VALENTIN Immunizations Immunization Date Immunization Notes Care Provider Fa anisha 05-24-2022 influenza virus vacc ine, unspecified formulation Renonoe VALENTIN [facility] 04-20-2022 SARS-CoV-2 mRNA (iztesjtcbjq-fbqq-paryag e) vaccine Renonoe VALENTIN [facility] 06-19-2021 SARS-CoV-2 (COVID-19 ) mRNA BNT-162b2 vax [facility] 06-01-2021 influenza virus vacc ine, unspecified formulation [facility] 05-23-2021 influenza virus vacc ine, unspecified formulation [facility] 11-10-2020 SARS-CoV-2 (COVID-19 ) mRNA BNT-162b2 vax [facility] 10-20-2020 SARS-CoV-2 (COVID-19 ) mRNA BNT-162b2 vax [facility] 08-04-2020 zoster vaccine recombinant [facility] 07-06-2020 SARS-CoV-2 (COVID-19 ) Ad26 vaccine, recombinant [facility] 06-24-2020 influenza virus vacc ine, unspecified formulation [facility] 06-03-2020 zoster vaccine recombinant [place]o [facility]oSemi [facility] 06-02-2020 SARS-CoV-2 (COVID-19 ) Ad26 vaccine, recombinant [place]o VALENTIN [facility] 05-26-2020 influenza virus vacc ine, unspecified formulation Reno VALENTIN [facility] 05-29-2019 influenza virus vacc ine, unspecified formulation Reno VALENTIN [facility] 06-17-2018 influenza virus vacc ine, unspecified formulation Reno VALENTIN [facility] 05-14-2017 influenza virus vacc ine, unspecified formulation Reno VALENTIN [facility] 05-14-2017 pneumococcal polysaccharide vaccine, 23 valent Reno VALENTIN [facility] 05-17-2016 influenza virus vacc ine, unspecified formulation Reno VALENTIN [facility] 05-17-2016 pneumococcal conjuga te vaccine, 13 valent Renonoe VALENTIN [facility] 05-16-2015 influenza virus vacc ine, unspecified formulation Reno VALENTIN [facility] Payers Date Payer Category Payer Private Health Insurance 1957 Private Health Insurance [id number] 1940 Unknown [id number] 2.16.8 [id number] 1940 Unknown [id number] 2.16.8 [id number] 1942 Unknown [id number] 2.16.8 [id number] 1942 Unknown [id number] 2.16.8 [id number] 1940 Unknown [id number] 2.16.8 [id number] 1940 Unknown [id number] 2.16.84 [id number] 1940 Unknown [id number] 2.16.84 [id number] 1942 Unknown [id number] 2.16.84 [id number] 1940 Unknown [id number] 2.16. [id number] 1940 Unknown [id number] 2.16. [id number] Social History Date Type Detail Facility Start: 04-16-2022 End: 09-26-2022 Tobacco smoking status Never smoked tobacco (finding) [facility] Tobacco smoking status Never [facility] Sex Assigned At Male [facility] Functional Status Date Assessment Result Facility 09-26-2022 Functional Status N/A [facility] Robert 04-16-2022 Functional Status N/A [facility] Evaluation note 07-17-2023 Note Date & Type [...] no improvement in 2 to 3 days [facility] Discharge instructions 09-26-2022 Note Date [...] or mouth. Supplies needed: Soap. 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 Standard cleaning products. Disinfectants, such as bleach. [...] water are not available, use alcohol-based hand pot press operator. Avoid touching your face, mouth, nose, or [...] water. Air-dry your dishes or use a drafter cartographic. Do not share dishes or eating utensils. [...] certain germs and not others. Read the bank accountant's instructions or read online resources to determine [...] minutes after each use, or according to bank accountant's instructions. Wash reusable cleaning cloths and sanitize [...] water are not available, use alcohol-based hand pot press operator. In general: Stay home except to get [...] Professionals in Infection Control and Epidemiology: professionals.site.apic.org/se fjkjqk-fe-aszq/non-healthcare- setting/home/ Summary It is important to know [...] 05/21/2009 Document Revised: 12/08/2019 Document Reviewed: 11/06/2019 [employer] Patient Education 2019 CLARED. Follow Up Care 09/20/2022 14:58:28 With:JAYDON COE, Reno Maciel, URL Address: [facility] [address] , [place] [address]- When:3 months Comments:UTI F/U [facility] Discharge instructions 04-16-2022 Note Date & [...] urethra. Follow these instructions at home: Take lwjp-dnl-qsmidoj and prescription medicines only as told by [...] 08/12/2006 Document Revised: 07/07/2019 Document Reviewed: 09/16/2017 [employer] Patient Education 2020 CLARED. 04/16/2022 14:44:17 Calorie Counting for Weight Loss [...] 08/12/2006 Document Revised: 05/01/2019 Document Reviewed: 07/12/2017 [employer] Patient Education 2020 CLARED. Follow Up Care 10/16/2021 15:00:57 With:JAYDON COE, Reno Maciel, URL Address: [address] [place] [phone] Business (1) When:Within 1 Year(s) [facility] Clinical Note 10-06-2020 Note Date & Type Note Facility 10-06-2020 Note Patient Outreach ([place] [facility]) PRASHANTH RICHARD ([id number]) 1940 M Date Time Provider Department 10/06/20 WEATHERS, JOLYNN COVAMN During your visit today, we recorded the following information about you: Allergies As of Date: 10/06/2020 (No Known Allergies) Date Reviewed: 11/27/2018 Reviewed by: Huyen Barraza - Fully Assessed Order(s):SARS-COVID VACCINE 1ST DOSE APPT [[id number]] Order #: [id number] FUTURE Prescriptions as of 10/06/2020 Sig: RHOPRESSA [...] arteriosclerosis [I25.10] Letter Text Encounter Status:Closed by NIDIA VOGEL on 10/10/20 [facility] Evaluation + Plan note Note Date & Type Note Facility Evaluation + Plan note Future Appointments Appointment Date:04/19/2023 09:30:00 AM Scheduled Provider:Reno VALENTIN MD Location:[facility] Appointment Type:URO Office Visit [facility] Evaluation + Plan note Note Date & Type Note Facility Evaluation + Plan note Future Appointments Appointment Date:01/16/2023 09:45:00 AM Scheduled Provider:Reno VALENTIN MD Location:[facility] Appointment Type:URO Office Visit Appointment Date:04/19/2023 09:30:00 AM Scheduled Provider:Reno VALENTIN MD Location:[facility] Appointment Type:URO Office Visit [facility] History general Narrative - Reported Note [...] see above Hospitalization History back spasms 2022 [facility] course Narrative Note Date & Type Note Facility Hospital course Narrative No data available for this section [facility] [place] note Note Date & Type Note Facility Progress note No data available for this section [facility] Summary Purpose Family History No Family [...] section and content) DATE CREATED AUTHOR 09/19/2021 [facility] DATE CREATED AUTHOR AUTHOR'S ORGANIZ ATION 09/28/2022 [facility] DATE CREATED AUTHOR AUTHOR'S ORGANIZ ATION 02/01/2023 [facility] DATE CREATED AUTHOR AUTHOR'S ORGANIZ ATION 09/26/2023 [facility] Care Team (unrecognized sect ion and content) Personnel Name: Eliana Ba MD Address: [address] [place] [address] Personnel Name: Eliana Ba MD Address: Address: [address] [place] [address] REASON FOR VISIT (unrecogniz ed section and [...] BE BASED ON THE PRIMARY CLINICAL RECORDS. [employer] [facility]. provides no warranty or guarantee of the accuracy or completeness of information in this document.
[2023-09-30 09:59] VITALS: BP 190/95; BP 196/103; PULSE 54; PULSE 55; RESP 18; O2SAT 97
[2023-09-30] MEDS: LIDOCAINE HCL 2% PF 100 MG/5 ML VIAL 1 ML INJ (10:03)
[2023-09-30] MEDS: BUPIVACAINE HCL 0.25% PF 25 MG/10 ML VIAL 8 ML INJ (10:03)
--- NOTE | 2023-09-30 10:04 | W.PM.PROCNOT ---
Date of procedure: 09/30/23 Pre-op diagnosis: Lumbar spondylosis Post-op diagnosis: same as pre-op Procedure: Procedure: Bilateral L4-5, L5-S1 medial branch block Medications: Bupivacaine 0.25% 6cc The patient was seen and examined in the preoperative holding area.? An informed consent was obtained and placed on the chart.? The patient was brought to the medical procedure unit and placed in the prone position.? A timeout was completed verifying correct patient, procedure site, positioning, plan, and special equipment.? Using aseptic technique, the needle was placed at left L4. Under direct fluoroscopic visualization a Quincke-tipped spinal needle was advanced to the junction of the superior articulating process with the transverse process at the designated medial branch segment.? Preceded by negative aspiration, the above-mentioned injectate was placed in 1 mL aliquots.? The procedure was repeated at left L5, S1.? The needle was removed and insertion site was covered. The same procedure, at the same levels, was completed on the right side. The patient was taken to the postprocedural recovery area and monitored for an appropriate length of time before found suitable for discharge in the company of a responsible adult. Anesthesia: Local Surgeon: Fabrice Dias Pathology: none sent Condition: stable Disposition: no change
== END 2023-09-30 10:11 | disposition home or self-care (01) ==
LOC: SURGOUT 08:54
PROVIDERS: PCP Family Medicine; Visit Provider Anesthesiology
DX: M47.816 Spondylosis without myelopathy or radiculopathy, lumbar region (principal)
CPT/HCPCS: 64493; 64494; J0665

== ENCOUNTER 2023-10-10 08:38 | Outpatient (OUT) | payer MEDICARE, SELFPAY ==
--- OUTSIDE RECORDS SUMMARY | 2023-10-10 08:44 | XMS_ITS | CCD ---
Author Name Unknown Address [facility] [address] [place] [address] Organization [facility] Care Team Providers Care Area Forester Name Role Phone Eliana Ba Primary Care Physician MD Reno VALENTIN Attending Unavailable MD Reno [...] Allergy Irritation (qualifier value) [facility] Medications Current Medications Medication Drug Class(es) Dates [...] day(s), # 20 cap(s), Refills(s) 0, Pharmacy: [id number], 160, cm, 09/26/22 13:50:00 EST, Height/Length Dosing, [...] BID, # 180 cap(s), Refills(s) 3, Pharmacy: [place] [id number] [facility], 160, cm, 10/16/21 14:26:00 EST, [...] 10-16-2021 Episodic Other aftercare (1 source) Other penitentiary (current) drug therapy; Translations: [OTH JAIL CURRENT DRUG THERAPY] Onset: 09-20-2022 Episodic Other aftercare (1 source) 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 Moderate to severe degenerative changes. Unremarkable soft tissues. IMPRESSION: Moderate to severe degenerative changes. Electronically authenticated by: CALVIN BARNES Date: 2023-01-23 13:29 Normal [facility] Screenson 09-27-2022 Screens [id number] 6#[id number]:127 Normal [facility] Patient Educationon 09-26-19 23 Patient [...] Supplies needed: ? Soap. ? Alcohol-based hand metal sprayer protective coating. ? Standard cleaning products. ? Disinfectants, such [...] water are not available, use alcohol-based hand metal sprayer protective coating. ? Avoid touching your face, mouth, nose, [...] water. Air-dry your dishes or use a security incident response engineer. ? Do not share dishes or eating [...] certain germs and not others. Read the investor relations associate's instructions or read online resources to determine [...] toil (more content not included)... Normal [facility] Urology Office/Clinic Noteon 09-26-2022 Urology Office/Clinic Note Chief Complaint pt [facility] to [facility] HPI Staff Pt is here for a hospital f/u from [facility] 09/18/[address]. [address] scan done [...] infection today Pt was given Levofloxacin at [facility] ER and he could not tolerate [...] hematuria (R31.0: Gross hematuria) PT went to [facility] ER on 09/18/22 due to hematuria. [...] 3 months [facility] [address] [place] [address]- Additional Instructions: UTI F/U Patient Education Infection Prevention in the Home IMerle, personally scribed for Dr. Valentin on 09/26/2022 14:16:39. . Documentation recorded by the scribe, Merle Miranda, accurately reflects the services(s) I performed and decisions made by me. Aut (more content not included)... Normal [facility] Comment on above: Result Comment: Elec tronically Signed By: Reno VALENTIN MD\.br\Date and Time Signed: 09/26/22 14:20 EST\.br\Electronically Co-Signed By: Merle Miranda\.br\Date and Time Co-Signed: 09/26/22 14:16 EST INSULINon 09-25-2022 Insulin 6.0 uIU/mL Normal 2.6-24.9 [facility] Comment on above: Performed By: #### I NSULIN #### [facility] [address] [place] [address] Dr. Wally Zapien BNPon 09-24-2022 Natriuretic peptide B (Bld) [Mass/Vol] 110.0 pg/mL Normal <=1,800.0 [facility] Comment on above: Performed By: #### U RCX #### [facility] [address] [address] [address] Wally Zapien CBC AUTO DIFFon 09-24-2022 BASO # 0.0 103/ul Normal 0.0-0.1 [facility] Comment on above: Performed By: #### C BC #### [facility] [address] [place] [address] Dr. Wally Zapien Basophils/100 WBC (Bld) 1.0 % Normal 0.2-2.0 [facility] Comment on above: Performed By: #### C BC #### [facility] [address] [place] [address] Dr. Wally Zapien EO # 0.2 103/ul Normal 0.0-0.7 [facility] Comment on above: Performed By: #### C BC #### [facility] [address] [place] [address] Dr. Wally Zapien Eosinophils/100 WBC (Bld) 4.2 % Normal 0.9-7.0 [facility] Comment on above: Performed By: #### C BC #### [facility] [address] [place] [address] Dr. Wally Zapien Erythrocyte distribution width (RBC) [Ratio] 12.5 % Normal 11.0-15.0 [facility] Comment on above: Performed By: #### C BC #### [facility] [address] [place] [address] Dr. Wally Zapien Hematocrit (Bld) [Volume fraction] 43.7 % Normal 42.0-54.0 [facility] Comment on above: Performed By: #### C BC #### [facility] [address] [place] [address] Dr. Wally Zapien Hemoglobin (Bld) [Mass/Vol] 15.4 g/dL Normal 14.0-18.0 [facility] Comment on above: Performed By: #### C BC #### [facility] [address] [place] [address] Dr. Wally Zapien IG # 0.02 10e3/ul Normal 0.00-0.03 [facility] Comment on above: Performed By: #### C BC #### [facility] [address] [place] [address] Dr. Wally Zapien IG % 0.5 % Normal 0.0-0.5 [facility] Comment on above: Performed By: #### C BC #### [facility] [address] [place] [address] Dr. Wally Zapien LYMPH # 1.7 103/ul Normal 1.2-3.8 [facility] Comment on above: Performed By: #### C BC #### [facility] [address] [place] [address] Dr. Wally Zapien Lymphocytes/100 WBC (Bld) 42.6 % Normal 20.5-60.0 [facility] Comment on above: Performed By: #### C BC #### [facility] [address] [place] [address] Dr. Wally Zapien MANUAL DIFF REQ NO Normal [facility] Comment on above: Performed By: #### C BC #### [facility] [address] [place] [address] Dr. Wally Zapien MCH (RBC) [Entitic mass] 31.6 pg Normal 25.9-34.0 [facility] Comment on above: Performed By: #### C BC #### [facility] [address] [place] [address] Dr. Wally Zapien MCHC (RBC) [Mass/Vol] 35.2 g/dL Normal 29.9-35.2 [facility] Comment on above: Performed By: #### C BC #### [facility] [address] [place] [address] Dr. Wally Zapien MCV (RBC) [Entitic vol] 89.5 fL Normal 80.0-94.0 [facility] Comment on above: Performed By: #### C BC #### [facility] [address] [place] [address] Dr. Wally Zapien MONO # 0.4 103/ul Normal 0.3-0.8 [facility] Comment on above: Performed By: #### C BC #### [facility] [address] [place] [address] Dr. Wally Zapien Monocytes/100 WBC (Bld) 9.2 % Normal 1.7-12.0 [facility] Comment on above: Performed By: #### C BC #### [facility] [address] [place] [address] Dr. Wally Zapien NEUT # 1.7 103/ul Normal 1.4-6.5 [facility] Comment on above: Performed By: #### C BC #### [facility] [address] [place] [address] Dr. Wally Zapien Neutrophils/100 WBC (Bld) 42.5 % Critically low 43.0-75.0 [facility] Comment on above: Performed By: #### C BC #### [facility] [address] [place] [address] Dr. Wally Zapien Platelet mean volume (Bld) [Entitic vol] 9.9 fL Normal 9.5-13.5 [facility] Comment on above: Performed By: #### C BC #### [facility] [address] [place] [address] Dr. Wally Zapien PLT 149 103/ul Critically low 150-450 [facility] Comment on above: Performed By: #### C BC #### [facility] [address] [place] [address] Dr. Wally Zapien RBC 4.88 106/ul Normal 4.70-6.10 [facility] Comment on above: Performed By: #### C BC #### [facility] [address] [place] [address] Dr. Wally Zapien WBC 4.0 103/ul Normal 4.0-11.0 [facility] Comment on above: Performed By: #### C BC #### [facility] [address] [place] [address] Dr. Wally Zapien CULTURE URINEon 09-24-2022 CULTURE URINE Culture Observations: LIGHT GROWTH OF MIXED SKIN GENNA. NO POTENTIAL PATHOGENS SEEN. Normal [facility] Comment on above: Performed By: #### U RCX #### [facility] [address] [place] [address] Dr. Wally Zapien FREE THYROXINE INDEX T7on FTI 2.52 Normal 1.30-4.50 [facility] Comment on above: Performed By: #### U RCX #### [facility] [address] [address] [address] Wally Zapien T3U 36.0 % Normal 33.0-40.0 [facility] Comment on above: Performed By: #### U RCX #### [facility] [address] [address] [address] Wally Zapien T4 [Mass/Vol] 7.00 ug/dL Normal 4.50-12.[address] [facility] Comment on above: Performed By: #### U RCX #### [facility] [address] [address] [address] Wally Zapien GLYCOHEMOGLOBIN A1Con 2022 ADA RECOMMENDATION SEE BELOW Normal [facility] Comment on above: Result Comment: ADA RECOMMENDED LIMIT 4.0 - 6.0 ADA THERAPEUTIC TARGET < 7.0 ACTION SUGGESTED > 7.0 Performed By: #### A 1C #### [facility] [address] [place] [address] Dr. Wally Zapien Glucose [Mass/Vol] 123 mg/dL Normal [facility] Comment on above: Performed By: #### A 1C #### [facility] [address] [place] [address] Dr. Wally Zapien HbA1c (Bld) [Mass fraction] 5.9 % Normal 4.5-6.2 [facility] Comment on above: Performed By: #### A 1C #### [facility] [address] [place] [address] Dr. Wally Zapien LIPID PROFILEon 09-24-2022 CHOL-HDL RATIO NORM SEE BELOW Normal [facility] Comment on above: Result Comment: 3.3 - 4.4 LOW RISK 4.4 - 7.1 AVERAGE RISK 7.1 - 11.0 MODERATE RISK >11.0 HIGH RISK Performed By: #### U RCX #### [facility] [address] [place] [address] Dr. Wally Zapien Cholesterol [Mass/Vol] 117 mg/dL Normal <=200 [facility] Comment on above: Performed By: #### U RCX #### [facility] [address] [address] [address] Wally Zapien Cholesterol in HDL [Mass/Vol] 38 mg/dL Critically low 40-60 [facility] Comment on above: Performed By: #### U RCX #### [facility] [address] [address] [address] Wally Zapien Cholesterol in LDL [Mass/Vol] 32.6 mg/dL Normal [facility] Comment on above: Performed By: #### U RCX #### [facility] [address] [address] [address] Wally Zapien Cholesterol.total/Ch olesterol in HDL [Mass ratio] 3.1 {ratio} Normal [facility] Comment on above: Performed By: #### U RCX #### [facility] [address] [address] [address] Wally Zapien HDL NORMAL > or = 60 mg/dl - LOW CARDIOVASCULAR RISK <40 mg/dl - HIGH CARDIOVASCULAR RISK Normal [facility] Comment on above: Performed By: #### U RCX #### [facility] [address] [address] [address] Wally Zapien LDL CALC NORMAL SEE BELOW Normal [facility] Comment on above: Result Comment: <100 mg/dl OPTIMAL 100 - 129 mg/dl NEAR OR ABOVE OPTIMAL 130 - 159 mg/dl BORDERLINE HIGH 160 - 189 mg/dl HIGH >190 mg/dl VERY HIGH Performed By: #### U RCX #### [facility] [address] [address] [address] Wally Zapien Triglyceride [Mass/Vol] 232 mg/dL Critically high <=150 [facility] Comment on above: Performed By: #### U RCX #### [facility] [address] [address] [address] Wally Zapien VLDL CALC 46.4 mg/dL Normal [facility] Comment on above: Performed By: #### U RCX #### [facility] [address] [address] [address] Wally Zapien PROF 14(COMP METB)on 023 Albumin [Mass/Vol] 3.8 g/dL Normal 3.4-5.0 [facility] Comment on above: Performed By: #### B DESK SERGEANT, T7, LIPID, TSH, CMP, URIC #### [facility] [address] [place] [address] Dr. Wally Zapien Albumin/Globulin [Mass ratio] 1.2 {ratio} Normal [facility] Comment on above: Performed By: #### B DESK SERGEANT, T7, LIPID, TSH, CMP, URIC #### [facility] [address] [place] [address] Dr. Wally Zapien ALP [Catalytic activity/Vol] 80 U/L Normal 46-116 [facility] Comment on above: Performed By: #### B DESK SERGEANT, T7, LIPID, TSH, CMP, URIC #### [facility] [address] [place] [address] Dr. Wally Zapien ALT [Catalytic activity/Vol] 34 U/L Normal 16-63 [facility] Comment on above: Performed By: #### B DESK SERGEANT, T7, LIPID, TSH, CMP, URIC #### [facility] [address] [place] [address] Dr. Wally Zapien Anion gap [Moles/Vol] 11.3 mmol/L Normal [facility] Comment on above: Performed By: #### B DESK SERGEANT, T7, LIPID, TSH, CMP, URIC #### [facility] [address] [place] [address] Dr. Wally Zapien AST [Catalytic activity/Vol] 24 U/L Normal 15-37 [facility] Comment on above: Performed By: #### B DESK SERGEANT, T7, LIPID, TSH, CMP, URIC #### [facility] [address] [place] [address] Dr. Wally Zapien Bilirubin [Mass/Vol] 1.0 mg/dL Normal 0.2-1.0 [facility] Comment on above: Performed By: #### B DESK SERGEANT, T7, LIPID, TSH, CMP, URIC #### [facility] [address] [place] [address] Dr. Wally Zapien Calcium [Mass/Vol] 8.5 mg/dL Normal 8.5-10.1 [facility] Comment on above: Performed By: #### B DESK SERGEANT, T7, LIPID, TSH, CMP, URIC #### [facility] [address] [address] [address] Wally Zapien Chloride [Moles/Vol] 105 mmol/L Normal 98-107 [facility] Comment on above: Performed By: #### B DESK SERGEANT, T7, LIPID, TSH, CMP, URIC #### [facility] [address] [address] [address] Wally Zapien CO2 [Moles/Vol] 28.6 mmol/L Normal 21.0-32.0 [facility] Comment on above: Performed By: #### B DESK SERGEANT, T7, LIPID, TSH, CMP, URIC #### [facility] [address] [place] [address] Dr. Wally Zapien Creatinine [Mass/Vol] 0.74 mg/dL Normal 0.70-1.30 [facility] Comment on above: Performed By: #### B DESK SERGEANT, T7, LIPID, TSH, CMP, URIC #### [facility] [address] [place] [address] Dr. Wally Zapien EGFR-AF SLOVENIAN >60 Normal >=60 [facility] Comment on above: Performed By: #### B DESK SERGEANT, T7, LIPID, TSH, CMP, URIC #### [facility] [address] [place] [address] Dr. Wally Zapien EGFR-NON AF SLOVENIAN >60 Normal >=60 [facility] Comment on above: Performed By: #### B DESK SERGEANT, T7, LIPID, TSH, CMP, URIC #### [facility] [address] [place] [address] Dr. Wally Zapien Globulin (S) [Mass/Vol] 3.2 g/dL Normal [facility] Comment on above: Performed By: #### B DESK SERGEANT, T7, LIPID, TSH, CMP, URIC #### [facility] [address] [place] [address] Dr. Wally Zapien Glucose [Mass/Vol] 102 mg/dL Normal 74-106 [facility] Comment on above: Performed By: #### B DESK SERGEANT, T7, LIPID, TSH, CMP, URIC #### [facility] [address] [place] [address] Dr. Wally Zapien Potassium [Moles/Vol] 3.9 mmol/L Normal 3.5-5.1 [facility] Comment on above: Performed By: #### B DESK SERGEANT, T7, LIPID, TSH, CMP, URIC #### [facility] [address] [place] [address] Dr. Wally Zapien Protein [Mass/Vol] 7.0 g/dL Normal 6.4-8.2 [facility] Comment on above: Performed By: #### B DESK SERGEANT, T7, LIPID, TSH, CMP, URIC #### [facility] [address] [place] [address] Dr. Wally Zapien Sodium [Moles/Vol] 141 mmol/L Normal 136-145 [facility] Comment on above: Performed By: #### B DESK SERGEANT, T7, LIPID, TSH, CMP, URIC #### [facility] [address] [place] [address] Dr. Wally Zapien Urea nitrogen [Mass/Vol] 19.0 mg/dL Critically high 7.0-18.0 [facility] Comment on above: Performed By: #### B DESK SERGEANT, T7, LIPID, TSH, CMP, URIC #### [facility] [address] [place] [address] Dr. Wally Zapien Urea nitrogen/Creatinine [Mass ratio] 25.7 mg/mg Normal [facility] Comment on above: Performed By: #### B DESK SERGEANT, T7, LIPID, TSH, CMP, URIC #### [facility] [address] [place] [address] Dr. Wally Zapien TSHon 09-24-2022 TSH 1.535 uIU/mL Normal 0.358-3.[address] [facility] Comment on above: Performed By: #### U RCX #### [facility] [address] [place] [address] Dr. Wally Zapien UA RANDOM W/MICROSCOPICon BACTERIA NONE SEEN Normal NONE SEEN [facility] Comment on above: Performed By: #### U RCX #### [facility] [address] [address] [address] Wally Zapien Bilirubin Ql (U) Negative Normal NEGATIVE [facility] Comment on above: Performed By: #### U RCX #### [facility] [address] [address] [address] Wally Zapien CAST NONE SEEN Normal NONE SEEN [facility] Comment on above: Performed By: #### U RCX #### [facility] [address] [address] [address] Wally Zapien Clarity (U) CLEAR Normal CLEAR [facility] Comment on above: Performed By: #### U RCX #### [facility] [address] [address] [address] Wally Zapien Color (U) YELLOW Normal YELLOW [facility] Comment on above: Performed By: #### U RCX #### [facility] [address] [address] [address] Wally Zapien Crystals LM Nom (Urine sed) NONE SEEN Normal NONE SEEN [facility] Comment on above: Performed By: #### U RCX #### [facility] [address] [address] [address] Wally Zapien Epithelial cells LM Ql (Urine sed) FEW Abnormal NONE SEEN /RARE [facility] Comment on above: Performed By: #### U RCX #### [facility] [address] [address] [address] Wally Zapien Glucose Ql (U) Negative Normal NEGATIVE [facility] Comment on above: Performed By: #### U RCX #### [facility] [address] [address] [address] Wally Zapien Hemoglobin Ql (U) TRACE-INTACT Abnormal NEGATIVE [facility] Comment on above: Performed By: #### U RCX #### [facility] [address] [address] [address] Wally Zapien Ketones Ql (U) Negative Normal NEGATIVE [facility] Comment on above: Performed By: #### U RCX #### [facility] [address] [address] [address] Wally Zapien LEUKOCYTES Negative Normal NEGATIVE [facility] Comment on above: Performed By: #### U RCX #### [facility] [address] [address] [address] Wally Zapien MUCOUS LARGE Abnormal NONE SEEN [facility] Comment on above: Performed By: #### U RCX #### [facility] [address] [address] [address] Wally Zapien Nitrite Ql (U) Negative Normal NEGATIVE [facility] Comment on above: Performed By: #### U RCX #### [facility] [address] [place] [address] Dr. Wally Zapien pH (U) 6.5 [pH] Normal 5-9 [facility] Comment on above: Performed By: #### U RCX #### [facility] [address] [place] [address] Dr. Wally Zapien RBC 2-5 Abnormal 0-2 [facility] Comment on above: Performed By: #### U RCX #### [facility] [address] [place] [address] Dr. Wally Zapien SPEC GRAVITY 1.025 Normal 1.005-<=1.025 [facility] Comment on above: Performed By: #### U RCX #### [facility] [address] [place] [address] Dr. Wally Zapien UA PROTEIN TRACE Normal NEGATIVE/ TRACE [facility] Comment on above: Performed By: #### U RCX #### [facility] [address] [place] [address] Dr. Wally Zapien Urobilinogen Qn (U) 1.0 {Suma'U}/dL Normal 0.2 - 1. 0 [facility] Comment on above: Performed By: #### U RCX #### [facility] [address] [place] [address] Dr. Wally Zapien WBC 0-2 Abnormal NONE SEEN [facility] Comment on above: Performed By: #### U RCX #### [facility] [address] [place] [address] Dr. Wally Zapien URIC ACID SERUMon 09-24-2022 Urate [Mass/Vol] 3.7 mg/dL Normal 3.5-7.2 [facility] Comment on above: Performed By: #### B DESK SERGEANT, T7, LIPID, TSH, CMP, URIC #### [facility] [address] [place] [address] Dr. Wally Zapien VITAMIN D 25 OHon 09-24-2022 VIT D 25-OH 42.6 ng/mL Normal [facility] Comment on above: Performed By: #### U RCX #### [facility] [address] [place] [address] Dr. Wally Zapien VIT D RANGES SEE BELOW Normal [facility] Comment on above: Result Comment: <20 ng/mL Vit D deficient 20 - <30 ng/mL Vit D insufficient 30 - 100 ng/mL Vit D sufficient >100 ng/mL Potential Toxicity Performed By: #### U RCX #### [facility] [address] [place] [address] Dr. Wally Zapien ED Note-Physicianon 09-19-19 23 ED Note-Physician [id number] #1.00CD:127 Normal [facility] Lab Reportson 09-19-2022 Lab Reports [id number] 8#1.00CD:127 Normal [facility] RAD - CT Reporton 09-19-2022 RAD - CT Report [id number] 3#1.00CD:127 Normal [facility] CBC AUTO DIFFon 09-18-2022 BASO # 0.0 103/ul Normal 0.0-0.1 [facility] Comment on above: Performed By: #### C BC #### [facility] [address] [place] [address] Dr. Wally Zapien Basophils/100 WBC (Bld) 0.7 % Normal 0.2-2.0 [facility] Comment on above: Performed By: #### C BC #### [facility] [address] [place] [address] Dr. Wally Zapien EO # 0.1 103/ul Normal 0.0-0.7 [facility] Comment on above: Performed By: #### C BC #### [facility] [address] [place] [address] Dr. Wally Zapien Eosinophils/100 WBC (Bld) 2.8 % Normal 0.9-7.0 [facility] Comment on above: Performed By: #### C BC #### [facility] [address] [place] [address] Dr. Wally Zapien Erythrocyte distribution width (RBC) [Ratio] 12.7 % Normal 11.0-15.0 [facility] Comment on above: Performed By: #### C BC #### [facility] [address] [place] [address] Dr. Wally Zapien Hematocrit (Bld) [Volume fraction] 44.1 % Normal 42.0-54.0 [facility] Comment on above: Performed By: #### C BC #### [facility] [address] [place] [address] Dr. Wally Zapien Hemoglobin (Bld) [Mass/Vol] 15.3 g/dL Normal 14.0-18.0 [facility] Comment on above: Performed By: #### C BC #### [facility] [address] [place] [address] Dr. Wally Zapien IG # 0.01 10e3/ul Normal 0.00-0.03 [facility] Comment on above: Performed By: #### C BC #### [facility] [address] [place] [address] Dr. Wally Zapien IG % 0.2 % Normal 0.0-0.5 [facility] Comment on above: Performed By: #### C BC #### [facility] [address] [place] [address] Dr. Wally Zapien LYMPH # 1.8 103/ul Normal 1.2-3.8 [facility] Comment on above: Performed By: #### C BC #### [facility] [address] [place] [address] Dr. Wally Zapien Lymphocytes/100 WBC (Bld) 43.0 % Normal 20.5-60.0 [facility] Comment on above: Performed By: #### C BC #### [facility] [address] [place] [address] Dr. Wally Zapien MANUAL DIFF REQ NO Normal [facility] Comment on above: Performed By: #### C BC #### [facility] [address] [place] [address] Dr. Wally Zapien MCH (RBC) [Entitic mass] 32.1 pg Normal 25.9-34.0 [facility] Comment on above: Performed By: #### C BC #### [facility] [address] [place] [address] Dr. Wally Zapien MCHC (RBC) [Mass/Vol] 34.7 g/dL Normal 29.9-35.2 [facility] Comment on above: Performed By: #### C BC #### [facility] [address] [place] [address] Dr. Wally Zapien MCV (RBC) [Entitic vol] 92.5 fL Normal 80.0-94.0 [facility] Comment on above: Performed By: #### C BC #### [facility] [address] [place] [address] Dr. Wally Zapien MONO # 0.4 103/ul Normal 0.3-0.8 [facility] Comment on above: Performed By: #### C BC #### [facility] [address] [place] [address] Dr. Wally Zapien Monocytes/100 WBC (Bld) 9.2 % Normal 1.7-12.0 [facility] Comment on above: Performed By: #### C BC #### [facility] [address] [place] [address] Dr. Wally Zapien NEUT # 1.9 103/ul Normal 1.4-6.5 [facility] Comment on above: Performed By: #### C BC #### [facility] [address] [place] [address] Dr. Wally Zapien Neutrophils/100 WBC (Bld) 44.1 % Normal 43.0-75.0 [facility] Comment on above: Performed By: #### C BC #### [facility] [address] [place] [address] Dr. Wally Zapien Platelet mean volume (Bld) [Entitic vol] 10.4 fL Normal 9.5-13.5 [facility] Comment on above: Performed By: #### C BC #### [facility] [address] [place] [address] Dr. Wally Zapien PLT 152 103/ul Normal 150-450 [facility] Comment on above: Performed By: #### C BC #### [facility] [address] [place] [address] Dr. Wally Zapien RBC 4.77 106/ul Normal 4.70-6.10 [facility] Comment on above: Performed By: #### C BC #### [facility] [address] [place] [address] Dr. Wally Zapien WBC 4.2 103/ul Normal 4.0-11.0 [facility] Comment on above: Performed By: #### C BC #### [facility] [address] [place] [address] ABD/PELVIS WO CONon [...] MAYRA LOPEZ Date: 2022-09-18 13:40 Normal [facility] URINE PROFILEon 3 Bilirubin Ql (U) SMALL Abnormal NEGATIVE [facility] Comment on above: Performed By: #### KERRI PADRON #### [facility] [address] [place] [address] Dr. Wally Zapien Clarity (U) SL CLOUDY Abnormal CLEAR [facility] Comment on above: Performed By: #### KERRI PADRON #### [facility] [address] [place] [address] Dr. Wally Zapien Color (U) RED Abnormal YELLOW [facility] Comment on above: Performed By: #### KERRI PADRON #### [facility] [address] [place] [address] Dr. Wally GEREBR A micrscopic examination will be performed if indicated. Normal [facility] Comment on above: Performed By: #### KERRI PADRON #### [facility] [address] [place] [address] Dr. Wally Zapien Glucose Ql (U) Negative Normal NEGATIVE [facility] Comment on above: Performed By: #### KERRI PADRON #### [facility] [address] [place] [address] Dr. Wally Zapien Hemoglobin Ql (U) LARGE Abnormal NEGATIVE The [facility] Comment on above: Performed By: #### E LAZARO, UMICRO #### [facility] [address] [place] [address] Dr. Wally Zapien Ketones Ql (U) TRACE Abnormal NEGATIVE [facility] Comment on above: Performed By: #### E SANJAYR, UMICRO #### [facility] [address] [place] [address] Dr. Wally Zapien LEUKOCYTES TRACE Abnormal NEGATIVE [facility] Comment on above: Performed By: #### E LAZARO, UMICRO #### [facility] [address] [place] [address] Dr. Wally Zapien Nitrite Ql (U) Positive Abnormal NEGATIVE [facility] Comment on above: Performed By: #### Olinda WILLIS, UMICRO #### [facility] [address] [place] [address] Dr. Wally Zapien pH (U) 5.5 [pH] Normal 5-9 [facility] Comment on above: Performed By: #### Olinda WILLIS UMICRO #### [facility] [address] [place] [address] Dr. Wally Zapien Protein (U) [Mass/Vol] 100 mg/dL Abnormal NEGATIVE/ TRACE [facility] Comment on above: Performed By: #### Olinda WILLIS, UMICRO #### [facility] [address] [place] [address] Dr. Wally Zapien SPEC GRAVITY 1.025 Normal 1.005-<=1.025 [facility] Comment on above: Performed By: #### Olinda WILLIS, UMICRO #### [facility] [address] [place] [address] Dr. Wally Zapien UR MICRO IND INDICATED Normal [facility] Comment on above: Performed By: #### Olinda WILLIS, UMICRO #### [facility] [address] [place] [address] Dr. Wally Zapien Urobilinogen Qn (U) 1.0 {Suma'U}/dL Normal 0.2 - 1. 0 [facility] Comment on above: Performed By: #### E KERRI WILLIS #### [facility] [address] [address] [address] Wally Zapien PROF CHEM 8 (BAS METB)on Anion gap [Moles/Vol] 10.5 mmol/L Normal [facility] Comment on above: Performed By: #### U RCX #### [facility] [address] [address] [address] Wally Zapien Calcium [Mass/Vol] 8.6 mg/dL Normal 8.5-10.1 [facility] Comment on above: Performed By: #### U RCX #### [facility] [address] [place] [address] Dr. Wally Zapien Chloride [Moles/Vol] 105 mmol/L Normal 98-107 [facility] Comment on above: Performed By: #### U RCX #### [facility] [address] [place] [address] Dr. Wally Zapien CO2 [Moles/Vol] 28.8 mmol/L Normal 21.0-32.0 [facility] Comment on above: Performed By: #### U RCX #### [facility] [address] [place] [address] Dr. Wally Zapien Creatinine [Mass/Vol] 0.85 mg/dL Normal 0.70-1.30 [facility] Comment on above: Performed By: #### U RCX #### [facility] [address] [place] [address] Dr. Wally Zapien EGFR-AF SLOVENIAN >60 Normal >=60 [facility] Comment on above: Performed By: #### U RCX #### [facility] [address] [place] [address] Dr. Wally Zapien EGFR-NON AF SLOVENIAN >60 Normal >=60 [facility] Comment on above: Performed By: #### U RCX #### [facility] [address] [place] [address] Dr. Wally Zapien Glucose [Mass/Vol] 112 mg/dL Critically high 74-106 [facility] Comment on above: Performed By: #### U RCX #### [facility] [address] [address] [address] Wally Zapien Potassium [Moles/Vol] 4.3 mmol/L Normal 3.5-5.1 [facility] Comment on above: Performed By: #### U RCX #### [facility] [address] [address] [address] Wally Zapien Sodium [Moles/Vol] 140 mmol/L Normal 136-145 [facility] Comment on above: Performed By: #### U RCX #### [facility] [address] [address] [address] Wally Zapien Urea nitrogen [Mass/Vol] 23.0 mg/dL Critically high 7.0-18.0 [facility] Comment on above: Performed By: #### U RCX #### [facility] [address] [place] [address] Dr. Wally Zapien Urea nitrogen/Creatinine [Mass ratio] 27.1 mg/mg Normal [facility] Comment on above: Performed By: #### U RCX #### [facility] [address] [place] [address] Dr. Wally Zapien URINE MICROSCOPIC ONLYon BACTERIA TRACE Abnormal NONE SEEN [facility] Comment on above: Performed By: #### Olidna WILLIS UMICRO #### [facility] [address] [place] [address] Dr. Wally Zapien Bacteria identified Cx Nom (U) NOT INDICATED Normal [facility] Comment on above: Performed By: #### E RUR UMICRO #### [facility] [address] [place] [address] Dr. Wally Zapien CAST NONE SEEN Normal NONE SEEN [facility] Comment on above: Performed By: #### E LAZARO UMICRO #### [facility] [address] [place] [address] Dr. Wally Zapien Crystals LM Nom (Urine sed) NONE SEEN Normal NONE SEEN [facility] Comment on above: Performed By: #### E RUJanell UMICRO #### [facility] [address] [address] [address] Wally Zapien Epithelial cells LM Ql (Urine sed) RARE Normal NONE SEEN /RARE [facility] Comment on above: Performed By: #### E SNAJAYR, UMICRO #### [facility] [address] [address] [address] Wally Zapien MUCOUS NONE SEEN Normal NONE SEEN [facility] Comment on above: Performed By: #### E SANJAYR, UMICRO #### [facility] [address] [address] [address] Wally Zapien RBC (U) [#/Vol] /uL Abnormal 0-2 [facility] Comment on above: Performed By: #### E SANJAYR, UMVIANCARO #### [facility] [address] [address] [address] Wally Zapien WBC 2-5 Abnormal NONE SEEN [facility] Comment on above: Performed By: #### Olinda WILLIS, UMICRO #### [facility] [address] [address] [address] Wally Zapien Patient Educationon 04-16-20 Patient [...] You could (more content not included)... Normal [facility] Urology Office/Clinic Noteon 04-16-2022 Urology [...] COE, Reno Maciel, URL In 1 year [facility] [place] [id number] [facility] (1) Additional Instructions: Patient Education Benign [...] vaccine 07/06 (more content not included)... Normal [facility] Comment on above: Result Comment: [...] Urnls Dip Stick Auto w/o Microscopy POC 21073 Your Care Team Attending Physician - Reno [...] Where: [facility] [address] [place] [address] [facility] (1) Medications What How Much When [...] Urnls Dip Stick Auto w/o Microscopy POC 97643 (10/16/2021) Bilirubin Urine Dipstick - Negative Blood Urine Dipstick - Negative Glucose Urine Dipstick - Negative Ketones Urine Dipstick - Negative Leukocytes Urine Dipstick - Trace Nitrite Urine Dipstick - Negative Protein Urine Dipstick - 2+ (100 mg/dl) Specific Manvel Urine Dipstick - 1.025 Urine Appearance Urine [...] urine fr (more content not included)... Normal [facility] Patient Educationon 10-16-19 Patient Education [...] Follow these instructions at home: ? Take efbj-qmt-azdhlso and prescription medicines only as told by [...] 09/07/2016 Document Revised: 03/25/2019 Document Reviewed: 03/25/2019 [employer] Patient Education ? 2019 [employer]. [facility] Urology Office/Clinic Noteon 10-16-2021 Urology [...] Maciel, URL [facility] [address] [place] [address]- [facility] (1) Additional Instructions: 6 month follow [...] disease: Mother. (more content not included)... Normal [facility] Comment on above: Result Comment: Elec tronically Signed By: Reno VALENTIN MD\.br\Date and Time Signed: 10/16/21 14:57 EST\.br\Electronically Co-Signed By: Katherine Nolasco\.br\Date and Time Co-Signed: 10/16/21 14:55 EST Vital Signs Date Time Vital Sign Value Performing Clinician Facility 07-17-2023 15:40-0500 Body height 160.02 cm Rocio Chan Other [facility] Other 07-17-2023 15:40-0500 Body mass index (BMI) [Ratio] 37.55 kg/m2 Rocio Chan Other [facility] Other 07-17-2023 15:40-0500 Body temperature 98.2 [degF] Rocio Nullmond Other [facility] Other 07-17-2023 15:40-0500 Body weight 96.16 kg Rocio Chan Other [facility] Other 07-17-2023 15:40-0500 Diastolic blood pressure 76 mm[Hg] Rocio Nullmond Other [facility] Other 07-17-2023 15:40-0500 Respiratory rate 18 /min Rocio Nullmond Other [facility] Other 07-17-2023 15:40-0500 SaO2% (BldA) [Mass fraction] 96 % Rocio Nullmond Other [facility] Other 07-17-2023 15:40-0500 Systolic blood pressure 134 mm[Hg] Rocio Rocio Other [facility] Other 09-26-2022 13:26-0500 Blood Pressure Location Reno VALENTIN [facility] 09-26-2022 13:26-0500 Diastolic blood pressure 74 mm[Hg] Reno VALENTIN [facility] 09-26-2022 13:26-0500 Heart rate 52 /min Reno VALENTIN [facility] 09-26-2022 13:26-0500 Systolic blood pressure 173 mm[Hg] Reno VALENTIN [facility] 04-16-2022 13:49-0400 Diastolic blood pressure 87 mm[Hg] Reno VALENTIN [facility] 04-16-2022 13:49-0400 Mean blood pressure 110 mm[Hg] Reno VALENTIN [facility] 04-16-2022 13:49-0400 Systolic blood pressure 156 mm[Hg] Reno VALENTIN [facility] 04-16-2022 13:37-0400 Blood Pressure Location Reno VALENTIN [facility] 04-16-2022 13:37-0400 Diastolic blood pressure 102 mm[Hg] Reno VALENTIN [facility] 04-16-2022 13:37-0400 Heart rate 81 /min Reno VALENTIN [facility] 04-16-2022 13:37-0400 Respiratory rate 16 /min Reno VALENTIN [facility] 04-16-2022 13:37-0400 Systolic blood pressure 191 mm[Hg] Renonoe VALENTIN [facility] En[facility] Encounter Date Encounter Type Care Provider Facility Start: 2023 End: 09-24-2023 ambulatory Fabrice Dias MD Facility:[facility] Start: 07-17-2023 End: 07-17-2023 ambulatory Rocio Chan Other [facility] Other Start: 07-17-2023 Office outpatient visit 15 minutes Rocio Chan [facility] Start: 05-27-2023 End: 05-28-2023 ambulatory Fabrice Dias MD Facility:[facility] Start: 04-19-2023 ambulatory MD Reno VALENTIN Fac ility:[facility] [place] Start: 01-23-[address] ELIANA BA . Facili ty:[facility] Start: 01-16-2023 ambulatory MD Reno VALENTIN Fac ility:[facility] [place] Start: 09-26-2022 End: 09-27-2022 ambulatory MD Reno VALENTIN Facility:[facility] [place] Start: 09-26-2022 End: 09-26-2022 Patient encounter procedure Reno VALENTIN [facility] [place] Start: 09-24-2022 End: 09-25-[address] ELIANA BA . Facility:[facility] Start: 09-18-2022 End: 09-18-2022 ambulatory KARLOS MELTON . Facility:[facility] Start: 04-16-2022 End: 04-17-2022 ambulatory MD Reno VALENTIN Facility:[facility] [place] Start: 04-16-2022 End: 04-16-2022 Patient encounter procedure Reno VALENTIN [facility] Start: 10-16-2021 ambulatory MD Reno VALENTIN Facil ity:[facility] Start: 10-16-2021 End: 10-17-2021 ambulatory MD Reno VALENTIN Facility:[facility] Procedures Date Procedure Procedure Detail Performing Clinician Start: 09-24-2022 PSA screening KARLOS ALVAREZ . Comment on above: Performed By: #### U RCX #### [facility] [address] [place] [address] Dr. Wally Zapien Start: 03-17-2019 Cystoscope, device [...] unspecified formulation Renonoe VALENTIN [facility] 04-20-2022 SARS-CoV-2 mRNA (zltqbzgagsn-qeim-zvcnnu e) vaccine Renonoe VALENTIN [facility] 06-19-2021 SARS-CoV-2 (COVID-19 ) mRNA BNT-162b2 vax Vox[employer].pl [facility] 06-01-2021 influenza virus vacc ine, unspecified formulation Voxel.pl [facility] 05-23-2021 influenza virus vacc ine, unspecified formulation Voxel.pl [facility] 11-10-2020 SARS-CoV-2 (COVID-19 ) mRNA BNT-162b2 vax Voxel.pl [facility] 10-20-2020 SARS-CoV-2 (COVID-19 ) mRNA BNT-162b2 vax Voxel.pl [facility] 08-04-2020 zoster vaccine recombinant [employer]pl [facility] 07-06-2020 SARS-CoV-2 (COVID-19 ) Ad26 vaccine, recombinant [employer]oxel[employer]pl [facility] 06-24-2020 influenza virus vacc ine, unspecified formulation Voxel.pl [facility] 06-03-2020 zoster vaccine recombinant [place]o [employer] [facility] 06-02-2020 SARS-CoV-2 (COVID-19 ) Ad26 vaccine, recombinant Reno VALENTIN [facility] 05-26-2020 influenza virus vacc ine, unspecified formulation Reno VALENTIN [facility] 05-29-2019 influenza virus vacc ine, unspecified formulation Reno VALENTIN [facility] 06-17-2018 influenza virus vacc ine, unspecified formulation Reno VALENTIN [facility] 05-14-2017 influenza virus vacc ine, unspecified formulation Reno VALENTIN [facility] 05-14-2017 pneumococcal polysaccharide vaccine, 23 valent Reno VALENTIN [facility] 05-17-2016 influenza virus vacc ine, unspecified formulation Reno VALENTIN [facility] 05-17-2016 pneumococcal conjuga te vaccine, 13 valent Renonoe VALENTIN [facility] 05-16-2015 influenza virus vacc ine, unspecified formulation Reno VALENTIN [facility] Payers Date Payer Category Payer Private Health Insurance 1957 Private Health Insurance [id number] 1940 Unknown [id number] 2.16.8 [id number] 1940 Unknown [id number] 2.16.8 [id number] 1940 Unknown [id number] 2.16.8 [id number] 1940 Unknown [id number] 2.16.8 [id number] 1940 Unknown [id number] 2.16.8 [id number] 1940 Unknown [id number] 2.16.84 [id number] 1940 Unknown [id number] 2.16.84 [id number] 1940 Unknown [id number] 2.16.84 [id number] 1940 Unknown [id number] 2.16. [id number] 1940 Unknown [id number] 2.16. [id number] Social History Date Type Detail Facility Start: 04-16-2022 End: 09-26-2022 Tobacco smoking status Never smoked tobacco (finding) [facility] [facility] Tobacco smoking status Never [facility] Sex Assigned At Male [facility] Functional Status Date Assessment Result Facility 09-26-2022 Functional Status N/A [facility] [place] 04-16-2022 Functional Status N/A [facility] [employer] [facility] Evaluation note 07-17-2023 Note Date & Type [...] no improvement in 2 to 3 days [facility] Other Hospital Discharge instructions 09-26-2022 Note Date [...] or mouth. Supplies needed: Soap. Alcohol-based hand metal sprayer protective coating. Standard cleaning products. Disinfectants, such as bleach. [...] water are not available, use alcohol-based hand metal sprayer protective coating. Avoid touching your face, mouth, nose, or [...] water. Air-dry your dishes or use a security incident response engineer. Do not share dishes or eating utensils. [...] certain germs and not others. Read the investor relations associate's instructions or read online resources to determine [...] minutes after each use, or according to investor relations associate's instructions. Wash reusable cleaning cloths and sanitize [...] water are not available, use alcohol-based hand metal sprayer protective coating. In general: Stay home except to get [...] Professionals in Infection Control and Epidemiology: professionals.[email or web address]/se [email or web address]-[email or web address]-[email or web address]/non-healthcare- setting/home/ Summary It is important to know [...] 05/21/2009 Document Revised: 12/08/2019 Document Reviewed: 11/06/2019 [employer] Patient Education 2019 [employer]. Follow Up Care 09/20/2022 14:58:28 With:JAYDON COE, Reno Maciel, URL Address: [facility] [address] [place] [address]- When:3 months Comments:UTI F/U [facility] Hospital Discharge instructions 04-16-2022 Note Date & [...] urethra. Follow these instructions at home: Take wlpl-zrb-pcoskfa and prescription medicines only as told by [...] 08/12/2006 Document Revised: 07/07/2019 Document Reviewed: 09/16/2017 [employer] Patient Education 2020 [employer]. 04/16/2022 14:44:17 Calorie Counting for Weight Loss [...] 08/12/2006 Document Revised: 05/01/2019 Document Reviewed: 07/12/2017 [employer] Patient Education 2020 [employer]. Follow Up Care 10/16/2021 15:00:57 With:JAYDON COE, Reno Maciel, URL Address: [address] [place] [address]- Business (1) When:Within 1 Year(s) [facility] Clinical Note 10-06-2020 Note Date & Type Note Facility 10-06-2020 Note Patient Outreach ([place] [facility]) PRASHANTH RICHARD ([id number]) 1940 M Date Time Provider Department 10/06/20 WEATHERS, JOLYNN COVAMN During your visit today, we recorded the following information about you: Allergies As of Date: 10/06/2020 (No Known Allergies) Date Reviewed: 11/27/2018 Reviewed by: Huyen Barraza - Fully Assessed Order(s):SARS-COVID VACCINE 1ST DOSE APPT [[id number]] Order #: [id number] FUTURE Prescriptions as of 10/06/2020 Sig: RHOPRESSA [...] Encounter Status:Closed by NIDIA VOGEL on 10/10/20 [facility] Evaluation + Plan note Note Date & Type Note Facility Evaluation + Plan note Future Appointments Appointment Date:04/19/2023 09:30:00 AM Scheduled Provider:Reno VALENTIN MD Location:[facility] Appointment Type:URO Office Visit [facility] Evaluation + Plan note Note Date & Type Note Facility Evaluation + Plan note Future Appointments Appointment Date:01/16/2023 09:45:00 AM Scheduled Provider:Reno VALENTIN MD Location:[facility] Appointment Type:URO Office Visit Appointment Date:04/19/2023 09:30:00 AM Scheduled Provider:Reno VALENTIN MD Location:[facility] Appointment Type:URO Office Visit [facility] History general Narrative - Reported Note Date [...] see above Hospitalization History back spasms 2022 [employer] Other Hospital course Narrative Note Date & Type Note Facility Hospital course Narrative No data available for this section [facility] Progress note Note Date & Type Note Facility Progress note No data available for this section [facility] Summary Purpose Family History No Family [...] section and content) DATE CREATED AUTHOR 09/19/2021 [facility] DATE CREATED AUTHOR AUTHOR'S ORGANIZ ATION 09/28/2022 [facility] DATE CREATED AUTHOR AUTHOR'S ORGANIZ ATION 02/01/2023 [facility] DATE CREATED AUTHOR AUTHOR'S ORGANIZ ATION 09/26/2023 [facility] Care Team (unrecognized sect ion and content) Personnel Name: Eliana Ba MD Address: [address] [place] [address] Personnel Name: Eliana Ba MD Address: Address: [address] [place] [address] REASON FOR VISIT (unrecogniz ed section and [...] BE BASED ON THE PRIMARY CLINICAL RECORDS. [employer] [facility]. provides no warranty or guarantee of the accuracy or completeness of information in this document.
--- NOTE | 2023-10-10 09:04 | P.CN_ITS ---
Consult Note: HPI Data of Consult Patient: known to practice within the last 3 years Consult date: 09/23/23 Requesting Physician: Ambika Hill NP Primary Care Provider: Bayron Ba MD Consult Narrative Reason for consult: Low back pain Narrative: 83yom who presents for assessment. Worsening axial low back pain, worse with standing. Lumbar XR shows significant facet arthropathy in lower lumbar spine. Underwent physical therapy within past 3 months, continues in >6 weeks of provider directed home exercises, with no benefit. Utilizes mobic, with minimal benefit. Denies adverse med side effects. Patient recently underwent bilateral L4-5 L5-S1 facet medial branch block #1 with 80% improvement in pain and functional ability hours after and days following the injection. Patient would like to discuss facet medial branch block #2 working towards RFA. cc:: CC: Ambika Hill NP Review of Systems ROS Status of ROS 10 or more systems reviewed and unremark able except as noted in history and below Musculoskeletal Reports: back pain PFSH PFSH Medical History Low back pain ?M54.50 - Low back pain, unspecified (ICD-10) Sleep apnea ?G47.30 - Sleep apnea, unspecified (ICD-10) High cholesterol ?E78.00 - Pure hypercholesterolemia, unspecified (ICD-10) Heart disease ?I51.9 - Heart disease, unspecified (ICD-10) Hypertension ?I10 - Essential (primary) hypertension (ICD-10) Glaucoma ?H40.9 - Unspecified glaucoma (ICD-10) Colon cancer ?C18.9 - Malignant neoplasm of colon, unspecified (ICD-10) Inability to walk ?R26.2 - Difficulty in walking, not elsewhere classified (ICD-10) Chronic back pain ?M54.9 - Dorsalgia, unspecified (ICD-10) ?G89.29 - Other chronic pain (ICD-10) Strain of lumbar region ?S39.012A - Strain of muscle, fascia and tendon of lower back, initial encounter (ICD-10) Surgical History Detached retina, left ?H33.22 - Serous retinal detachment, left eye (ICD-10) Cataracts, both eyes ?H26.9 - Unspecified cataract (ICD-10) History of colectomy ?Z90.49 - Acquired absence of other specified parts of digestive tract (ICD- 10) 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 Smoking status: Never smoker Non-prescribed substance use: denies use Previous occupational history: retired Highest level of school completed/degree received: Bachelor's degree Are you now , , , , never or living with a partner: Little interest or pleasure in doing things: not at all Feeling down, depressed, or hopeless: not at all Feel stressed/tense/nervous/anxious/difficulty sleeping: not at all Do you think of yourself as: straight/heterosexual Gender Identity: male Meds Home Medications and Allergies Home Medications Medication Instructions Recorded Confirmed Type aspirin 81 mg tablet,delayed 81 mg PO DAILY 05/20/23 09/30/23 History release atorvastatin 40 mg tablet 40 mg PO DAILY 05/20/23 09/30/23 History dorzolamide 22.3 mg-timolol 6.8 1 drp ophthalmic (eye) BID 05/20/23 09/30/23 History mg/mL eye drops icosapent ethyl 1 gram capsule 2 g PO BID 05/20/23 09/30/23 History latanoprost 0.005 % eye drops 1 drp ophthalmic (eye) .[facility] 05/20/23 09/30/23 History lisinopril 10 mg tablet 10 mg PO DAILY 05/20/23 09/30/23 History meloxicam 15 mg tablet 15 mg PO DAILY 05/20/23 09/30/23 History metoprolol tartrate 25 mg tablet 12.5 mg PO BID 05/20/23 09/30/23 History netarsudil 0.02 % eye drops 1 drp ophthalmic (eye) DAILY 05/20/23 09/30/23 History (Rhopressa) tamsulosin 0.4 mg capsule 0.4 mg PO BID 05/20/23 09/30/23 History Allergies Allergy/AdvReac Type Severity Reaction Status Date / Time No Known Drug Allergies Allergy Verified 09/30/23 09:08 Exam Narrative Exam Narrative: Psych-alert and oriented x 3. Attentive and appropriate, constitutionally normal, displays normal mood and affect per situation.? There are no obvious deficits in memory, reasoning, or intellect.? Skin-no obvious rashes, bruising, erythema noted to the patient's area of pain. Extremities- extremities are warm with minimal edema and palpable pulses. Lumbar-no significant tenderness to palpation noted in the lumbar spine and paraspinal musculature.? Pain is elicited with extension, and lateral rotation of the lumbar spine. Range of motion is slightly diminished with these motions due to pain. Facet loading maneuvers are positive bilaterally and do appear to be concordant with the patient's normal complaints of pain.? Coordination remains intact.? Gait remains non-antalgic. Constitutional Documenting provider has reviewed patient's vital signs: yes Common normals: no apparent distress, oriented x3, healthy appearing, alert and well nourished General appearance: cooperative HENHI Common normals: normocephalic, hearing grossly normal bilaterally and moist oral mucous membranes Head and scalp: normocephalic Eye Common normals: PERRL Pupil: PERRL Neck & C-Spine Common normals: full ROM General: normal visual inspection Chest Common normals: inspection of chest normal Respiratory Common normals: normal respiratory effort, no retractions and no use of accessory muscles Neuro Common normals: oriented x3, CN's II-XII intact bilaterally, moves all extremities, no focal motor deficits, no sensory deficits noted and deep tendon reflexes 2+ bilaterally Sensorium/orientation: alert Motor exam: strength 5/5 throughout and no movement abnormalities noted Psych Common normals: mental status grossly normal, thought process normal, cooperative, affect normal, speech normal and activity/motor behavior normal Speech: normal speech Thought process: normal thought process Results Additional Findings Additional findings: I have checked an OARRS report on this patient today and there are no aberrancies noted in the prescribing history.?? A drug screen was completed and reviewed within the last year, and if there has not been a drug screen completed we ordered one today to monitor higher risk, state monitored pain medication use. As part of providing excellent, safe, comprehensive care, the following was completed at our patient's visit: 1. A medication reconciliation and review to ensure accurate knowledge of current/active medications, including asking our patients to inform us about any [id number] medications or herbal remedies/nutritional supplements/alternative remedies. 2. A review to specifically ensure our patients have had annual screening for: elevated body mass index (BMI), tobacco use, screening for depression, and screening for unhealthy alcohol use. When screening is concerning, patients are provided with education and the specific recommendation to discuss the con cerning health issue and treatment options with their primary care provider. Assessment and Plan Assessment and Plan (1) Lumbar spondylosis: Assessment and Plan: The Oswestry Disability Index was completed, and the patient scored a 30%.? The patient noted the following:?? pain prevents him from lifting heavy objects, pain prevents him from walking more than 100 yards, pain prevents him from sitting more than 1 hour, pain prevents him from standing more than 30 minutes, pain impacts social life and travel We discussed the risks and benefits of the procedure with the patient, and we are NOT planning on using sedation as outlined in the guidelines from Medicare unless there is a documented reason that sedation would be strongly recommended.?? The procedure will be completed with fluoroscopic guidance.? (2) Lumbar stenosis with neurogenic claudication: Plan bilateral l4-5 l5-s1 facet medial branch block #2 working towards thermal RFA continue medications f/u 1 week after injection
== END 2023-10-10 08:39 | disposition home or self-care (01) ==
LOC: PM 08:41
PROVIDERS: PCP Family Medicine; Visit Provider Nurse Practitioner
DX: M47.816 Spondylosis without myelopathy or radiculopathy, lumbar region (principal); M48.062 Spinal stenosis, lumbar region with neurogenic claudication
CPT/HCPCS: G0463

== ENCOUNTER 2023-10-28 11:05 | Day surgery (SDC) | payer MEDICARE, SELFPAY ==
--- OUTSIDE RECORDS SUMMARY | 2023-10-28 11:08 | XMS_ITS | CCD ---
Author Name Unknown Address [facility] [address] [place] [address] Organization [facility] Care Team Providers Care Crop Specialist Name Role Phone Eliana Ba Primary Care Physician [phone] MD Reno VALENTIN Attending Unavailable MD Reno [...] Allergy Irritation (qualifier value) [facility] Medications Current Medications Medication Drug Class(es) [...] day(s), # 20 cap(s), Refills(s) 0, Pharmacy: 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 Moderate to severe degenerative changes. Unremarkable soft tissues. IMPRESSION: Moderate to severe degenerative changes. Electronically authenticated by: CALVIN BARNES Date: 2023-01-23 13:29 Normal [facility] Screenson 09-27-2022 Screens [id number] Normal [facility] Patient Educationon 09-26-19 23 Patient [...] Supplies needed: ? Soap. ? 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 ? Standard cleaning products. ? Disinfectants, such [...] water are not available, use alcohol-based hand waste collection driver. ? Avoid touching your face, mouth, nose, [...] water. Air-dry your dishes or use a pulp grinder. ? Do not share dishes or eating [...] certain germs and not others. Read the shell sieve operator's instructions or read online resources to determine [...] toil (more content not included)... Normal [facility] Urology Office/Clinic Noteon 09-26-2022 Urology Office/Clinic Note Chief Complaint pt here for f/u from [facility] due to hematuria HPI Staff Pt is here for a hospital f/u from [facility] 09/18/[address] scan done [...] infection today Pt was given Levofloxacin at [facility] and he could not tolerate this. [...] hematuria (R31.0: Gross hematuria) PT went to [facility] ER on 09/18/22 due to hematuria. he [...] 3 months [facility] [address] [place] [address]- Additional Instructions: UTI F/U Patient Education Infection Prevention in the Home IMerle, personally scribed for Dr. Valentin on 09/26/2022 14:16:39. . Documentation recorded by the scribe, Merle Miranda, accurately reflects the services(s) I performed and decisions made by me. Aut (more content not included)... Normal [facility] Comment on above: Result Comment: Elec tronically Signed By: Reno VALENTIN MD\.br\Date and Time Signed: 09/26/22 14:20 EST\.br\Electronically Co-Signed By: Merle Miranda\.br\Date and Time Co-Signed: 09/26/22 14:16 EST INSULINon 09-25-2022 Insulin 6.0 uIU/mL Normal 2.6-24.9 [facility] Comment on above: Performed By: #### I NSULIN #### [facility] [address] [place] [address] Dr. Wally Zapien BNPon 09-24-2022 Natriuretic peptide B (Bld) [Mass/Vol] 110.0 pg/mL Normal <=1,800.0 [facility] Comment on above: Performed By: #### U RCX #### [facility] [address] [address] [address] Wally Zapien CBC AUTO DIFFon 09-24-2022 BASO # 0.0 103/ul Normal 0.0-0.1 [facility] Comment on above: Performed By: #### C BC #### [facility] [address] [place] [address] Dr. Wally Zapien Basophils/100 WBC (Bld) 1.0 % Normal 0.2-2.0 [facility] Comment on above: Performed By: #### C BC #### [facility] [address] [place] [address] Dr. Wally Zapien EO # 0.2 103/ul Normal 0.0-0.7 [facility] Comment on above: Performed By: #### C BC #### [facility] [address] [place] [address] Dr. Wally Zapien Eosinophils/100 WBC (Bld) 4.2 % Normal 0.9-7.0 [facility] Comment on above: Performed By: #### C BC #### [facility] [address] [place] [address] Dr. Wally Zapien Erythrocyte distribution width (RBC) [Ratio] 12.5 % Normal 11.0-15.0 [facility] Comment on above: Performed By: #### C BC #### [facility] [address] [place] [address] Dr. Wally Zapien Hematocrit (Bld) [Volume fraction] 43.7 % Normal 42.0-54.0 [facility] Comment on above: Performed By: #### C BC #### [facility] [address] [place] [address] Dr. Wally Zapien Hemoglobin (Bld) [Mass/Vol] 15.4 g/dL Normal 14.0-18.0 [facility] Comment on above: Performed By: #### C BC #### [facility] [address] [place] [address] Dr. Wally Zapien IG # 0.02 10e3/ul Normal 0.00-0.03 [facility] Comment on above: Performed By: #### C BC #### [facility] [address] [place] [address] Dr. Wally Zapien IG % 0.5 % Normal 0.0-0.5 [facility] Comment on above: Performed By: #### C BC #### [facility] [address] [place] [address] Dr. Wally Zapien LYMPH # 1.7 103/ul Normal 1.2-3.8 [facility] Comment on above: Performed By: #### C BC #### [facility] [address] [place] [address] Dr. Wally Zapien Lymphocytes/100 WBC (Bld) 42.6 % Normal 20.5-60.0 [facility] Comment on above: Performed By: #### C BC #### [facility] [address] [place] [address] Dr. Wally Zapien MANUAL DIFF REQ NO Normal [facility] Comment on above: Performed By: #### C BC #### [facility] [address] [place] [address] Dr. Wally Zapien MCH (RBC) [Entitic mass] 31.6 pg Normal 25.9-34.0 [facility] Comment on above: Performed By: #### C BC #### [facility] [address] [place] [address] Dr. Wally Zapien MCHC (RBC) [Mass/Vol] 35.2 g/dL Normal 29.9-35.2 [facility] Comment on above: Performed By: #### C BC #### [facility] [address] [place] [address] Dr. Wally Zapien MCV (RBC) [Entitic vol] 89.5 fL Normal 80.0-94.0 [facility] Comment on above: Performed By: #### C BC #### [facility] [address] [place] [address] Dr. Wally Zapien MONO # 0.4 103/ul Normal 0.3-0.8 [facility] Comment on above: Performed By: #### C BC #### [facility] [address] [place] [address] Dr. Wally Zapien Monocytes/100 WBC (Bld) 9.2 % Normal 1.7-12.0 [facility] Comment on above: Performed By: #### C BC #### [facility] [address] [place] [address] Dr. Wally Zapien NEUT # 1.7 103/ul Normal 1.4-6.5 [facility] Comment on above: Performed By: #### C BC #### [facility] [address] [place] [address] Dr. Wally Zapien Neutrophils/100 WBC (Bld) 42.5 % Critically low 43.0-75.0 [facility] Comment on above: Performed By: #### C BC #### [facility] [address] [place] [address] Dr. Wally Zapien Platelet mean volume (Bld) [Entitic vol] 9.9 fL Normal 9.5-13.5 [facility] Comment on above: Performed By: #### C BC #### [facility] [address] [place] [address] Dr. Wally Zapien PLT 149 103/ul Critically low 150-450 [facility] Comment on above: Performed By: #### C BC #### [facility] [address] [place] [address] Dr. Wally Zapien RBC 4.88 106/ul Normal 4.70-6.10 [facility] Comment on above: Performed By: #### C BC #### [facility] [address] [place] [address] Dr. Wally Zapien WBC 4.0 103/ul Normal 4.0-11.0 [facility] Comment on above: Performed By: #### C BC #### [facility] [address] [place] [address] Dr. Wally Zapien CULTURE URINEon 09-24-2022 CULTURE URINE Culture Observations: LIGHT GROWTH OF MIXED SKIN GENNA. NO POTENTIAL PATHOGENS SEEN. Normal [facility] Comment on above: Performed By: #### U RCX #### [facility] [address] [place] [address] Dr. Wally Zapien FREE THYROXINE INDEX T7on FTI 2.52 Normal 1.30-4.50 [facility] Comment on above: Performed By: #### U RCX #### [facility] [address] [address] [address] Wally Zapien T3U 36.0 % Normal 33.0-40.0 [facility] Comment on above: Performed By: #### U RCX #### [facility] [address] [address] [address] Wally Zapien T4 [Mass/Vol] 7.00 ug/dL Normal 4.50-12.10 [facility] Comment on above: Performed By: #### U RCX #### [facility] [address] [address] [address] Wally Zapien GLYCOHEMOGLOBIN A1Con 2022 ADA RECOMMENDATION SEE BELOW Normal [facility] Comment on above: Result Comment: ADA RECOMMENDED LIMIT 4.0 - 6.0 ADA THERAPEUTIC TARGET < 7.0 ACTION SUGGESTED > 7.0 Performed By: #### A 1C #### [facility] [address] [place] [address] Dr. Wally Zapien Glucose [Mass/Vol] 123 mg/dL Normal [facility] Comment on above: Performed By: #### A 1C #### [facility] [address] [place] [address] Dr. Wally Zapien HbA1c (Bld) [Mass fraction] 5.9 % Normal 4.5-6.2 [facility] Comment on above: Performed By: #### A 1C #### [facility] [address] [place] [address] Dr. Wally Zapien LIPID PROFILEon 09-24-2022 CHOL-HDL RATIO NORM SEE BELOW Normal [facility] Comment on above: Result Comment: 3.3 - 4.4 LOW RISK 4.4 - 7.1 AVERAGE RISK 7.1 - 11.0 MODERATE RISK >11.0 HIGH RISK Performed By: #### U RCX #### [facility] [address] [place] [address] Dr. Wally Zapien Cholesterol [Mass/Vol] 117 mg/dL Normal <=200 [facility] Comment on above: Performed By: #### U RCX #### [facility] [address] [address] [address] Wally Zapien Cholesterol in HDL [Mass/Vol] 38 mg/dL Critically low 40-60 [facility] Comment on above: Performed By: #### U RCX #### [facility] [address] [address] [address] Wally Zapien Cholesterol in LDL [Mass/Vol] 32.6 mg/dL Normal [facility] Comment on above: Performed By: #### U RCX #### [facility] [address] [address] [address] Wally Zapien Cholesterol.total/Ch olesterol in HDL [Mass ratio] 3.1 {ratio} Normal [facility] Comment on above: Performed By: #### U RCX #### [facility] [address] [address] [address] Wally Zapien HDL NORMAL > or = 60 mg/dl - LOW CARDIOVASCULAR RISK <40 mg/dl - HIGH CARDIOVASCULAR RISK Normal [facility] Comment on above: Performed By: #### U RCX #### [facility] [address] [address] [address] Wally Zapien LDL CALC NORMAL SEE BELOW Normal [facility] Comment on above: Result Comment: <100 mg/dl OPTIMAL 100 - 129 mg/dl NEAR OR ABOVE OPTIMAL 130 - 159 mg/dl BORDERLINE HIGH 160 - 189 mg/dl HIGH >190 mg/dl VERY HIGH Performed By: #### U RCX #### [facility] [address] [address] [address] Wally Zapien Triglyceride [Mass/Vol] 232 mg/dL Critically high <=150 [facility] Comment on above: Performed By: #### U RCX #### [facility] [address] [address] [address] Wally Zapien VLDL CALC 46.4 mg/dL Normal [facility] Comment on above: Performed By: #### U RCX #### [facility] [address] [address] [address] Wally Zapien PROF 14(COMP METB)on 023 Albumin [Mass/Vol] 3.8 g/dL Normal 3.4-5.0 [facility] Comment on above: Performed By: #### B HEALTH CARE CONSULTANT, T7, LIPID, TSH, CMP, URIC #### [facility] [address] [place] [address] Dr. Wally Zapien Albumin/Globulin [Mass ratio] 1.2 {ratio} Normal [facility] Comment on above: Performed By: #### B HEALTH CARE CONSULTANT, T7, LIPID, TSH, CMP, URIC #### [facility] [address] [place] [address] Dr. Wally Zapien ALP [Catalytic activity/Vol] 80 U/L Normal 46-116 [facility] Comment on above: Performed By: #### B HEALTH CARE CONSULTANT, T7, LIPID, TSH, CMP, URIC #### [facility] [address] [place] [address] Dr. Wally Zapien ALT [Catalytic activity/Vol] 34 U/L Normal 16-63 [facility] Comment on above: Performed By: #### B HEALTH CARE CONSULTANT, T7, LIPID, TSH, CMP, URIC #### [facility] [address] [place] [address] Dr. Wally Zapien Anion gap [Moles/Vol] 11.3 mmol/L Normal [facility] Comment on above: Performed By: #### B HEALTH CARE CONSULTANT, T7, LIPID, TSH, CMP, URIC #### [facility] [address] [place] [address] Dr. Wally Zapien AST [Catalytic activity/Vol] 24 U/L Normal 15-37 [facility] Comment on above: Performed By: #### B HEALTH CARE CONSULTANT, T7, LIPID, TSH, CMP, URIC #### [facility] [address] [place] [address] Dr. Wally Zapien Bilirubin [Mass/Vol] 1.0 mg/dL Normal 0.2-1.0 [facility] Comment on above: Performed By: #### B HEALTH CARE CONSULTANT, T7, LIPID, TSH, CMP, URIC #### [facility] [address] [place] [address] Dr. Wally Zapien Calcium [Mass/Vol] 8.5 mg/dL Normal 8.5-10.1 [facility] Comment on above: Performed By: #### B HEALTH CARE CONSULTANT, T7, LIPID, TSH, CMP, URIC #### [facility] [address] [address] [address] Wally Zapien Chloride [Moles/Vol] 105 mmol/L Normal 98-107 [facility] Comment on above: Performed By: #### B HEALTH CARE CONSULTANT, T7, LIPID, TSH, CMP, URIC #### [facility] [address] [address] [address] Wally Zapien CO2 [Moles/Vol] 28.6 mmol/L Normal 21.0-32.0 [facility] Comment on above: Performed By: #### B HEALTH CARE CONSULTANT, T7, LIPID, TSH, CMP, URIC #### [facility] [address] [place] [address] Dr. Wally Zapien Creatinine [Mass/Vol] 0.74 mg/dL Normal 0.70-1.30 [facility] Comment on above: Performed By: #### B HEALTH CARE CONSULTANT, T7, LIPID, TSH, CMP, URIC #### [facility] [address] [place] [address] Dr. Wally Zapien EGFR-AF GUINEAN >60 Normal >=60 [facility] Comment on above: Performed By: #### B HEALTH CARE CONSULTANT, T7, LIPID, TSH, CMP, URIC #### [facility] [address] [place] [address] Dr. Wally Zapien EGFR-NON AF GUINEAN >60 Normal >=60 [facility] Comment on above: Performed By: #### B HEALTH CARE CONSULTANT, T7, LIPID, TSH, CMP, URIC #### [facility] [address] [place] [address] Dr. Wally Zapien Globulin (S) [Mass/Vol] 3.2 g/dL Normal [facility] Comment on above: Performed By: #### B HEALTH CARE CONSULTANT, T7, LIPID, TSH, CMP, URIC #### [facility] [address] [place] [address] Dr. Wally Zapien Glucose [Mass/Vol] 102 mg/dL Normal 74-106 [facility] Comment on above: Performed By: #### B HEALTH CARE CONSULTANT, T7, LIPID, TSH, CMP, URIC #### [facility] [address] [place] [address] Dr. Wally Zapien Potassium [Moles/Vol] 3.9 mmol/L Normal 3.5-5.1 [facility] Comment on above: Performed By: #### B HEALTH CARE CONSULTANT, T7, LIPID, TSH, CMP, URIC #### [facility] [address] [place] [address] Dr. Wally Zapien Protein [Mass/Vol] 7.0 g/dL Normal 6.4-8.2 [facility] Comment on above: Performed By: #### B HEALTH CARE CONSULTANT, T7, LIPID, TSH, CMP, URIC #### [facility] [address] [place] [address] Dr. Wally Zapien Sodium [Moles/Vol] 141 mmol/L Normal 136-145 [facility] Comment on above: Performed By: #### B HEALTH CARE CONSULTANT, T7, LIPID, TSH, CMP, URIC #### [facility] [address] [place] [address] Dr. Wally Zapien Urea nitrogen [Mass/Vol] 19.0 mg/dL Critically high 7.0-18.0 [facility] Comment on above: Performed By: #### B HEALTH CARE CONSULTANT, T7, LIPID, TSH, CMP, URIC #### [facility] [address] [place] [address] Dr. Wally Zapien Urea nitrogen/Creatinine [Mass ratio] 25.7 mg/mg Normal [facility] Comment on above: Performed By: #### B HEALTH CARE CONSULTANT, T7, LIPID, TSH, CMP, URIC #### [facility] [address] [place] [address] Dr. Wally Zapien TSHon 09-24-2022 TSH 1.535 uIU/mL Normal 0.358-3.740 [facility] Comment on above: Performed By: #### U RCX #### [facility] [address] [place] [address] Dr. Wally Zapien UA RANDOM W/MICROSCOPICon BACTERIA NONE SEEN Normal NONE SEEN [facility] Comment on above: Performed By: #### U RCX #### [facility] [address] [address] [address] Wally Zapien Bilirubin Ql (U) Negative Normal NEGATIVE [facility] Comment on above: Performed By: #### U RCX #### [facility] [address] [address] [address] Wally Zapien CAST NONE SEEN Normal NONE SEEN [facility] Comment on above: Performed By: #### U RCX #### [facility] [address] [address] [address] Wally Zapien Clarity (U) CLEAR Normal CLEAR [facility] Comment on above: Performed By: #### U RCX #### [facility] [address] [address] [address] Wally Zapien Color (U) YELLOW Normal YELLOW [facility] Comment on above: Performed By: #### U RCX #### [facility] [address] [address] [address] Wally Zapien Crystals LM Nom (Urine sed) NONE SEEN Normal NONE SEEN [facility] Comment on above: Performed By: #### U RCX #### [facility] [address] [address] [address] Wally Zapien Epithelial cells LM Ql (Urine sed) FEW Abnormal NONE SEEN /RARE [facility] Comment on above: Performed By: #### U RCX #### [facility] [address] [address] [address] Wally Zapien Glucose Ql (U) Negative Normal NEGATIVE [facility] Comment on above: Performed By: #### U RCX #### [facility] [address] [address] [address] Wally Zapien Hemoglobin Ql (U) TRACE-INTACT Abnormal NEGATIVE [facility] Comment on above: Performed By: #### U RCX #### [facility] [address] [address] [address] Wally Zapien Ketones Ql (U) Negative Normal NEGATIVE [facility] Comment on above: Performed By: #### U RCX #### [facility] [address] [address] [address] Wally Zapien LEUKOCYTES Negative Normal NEGATIVE [facility] Comment on above: Performed By: #### U RCX #### [facility] [address] [address] [address] Wally Zapien MUCOUS LARGE Abnormal NONE SEEN [facility] Comment on above: Performed By: #### U RCX #### [facility] [address] [address] [address] Wally Zapien Nitrite Ql (U) Negative Normal NEGATIVE [facility] Comment on above: Performed By: #### U RCX #### [facility] [address] [place] [address] Dr. Wally Zapien pH (U) 6.5 [pH] Normal 5-9 [facility] Comment on above: Performed By: #### U RCX #### [facility] [address] [place] [address] Dr. Wally Zapien RBC 2-5 Abnormal 0-2 [facility] Comment on above: Performed By: #### U RCX #### [facility] [address] [place] [address] Dr. Wally Zapien SPEC GRAVITY 1.025 Normal 1.005-<=1.025 [facility] Comment on above: Performed By: #### U RCX #### [facility] [address] [place] [address] Dr. Wally Zapien UA PROTEIN TRACE Normal NEGATIVE/ TRACE [facility] Comment on above: Performed By: #### U RCX #### [facility] [address] [place] [address] Dr. Wally Zapien Urobilinogen Qn (U) 1.0 {Suma'U}/dL Normal 0.2 - 1. 0 [facility] Comment on above: Performed By: #### U RCX #### [facility] [address] [place] [address] Dr. Wally Zapien WBC 0-2 Abnormal NONE SEEN [facility] Comment on above: Performed By: #### U RCX #### [facility] [address] [place] [address] Dr. Wally Zapien URIC ACID SERUMon 09-24-2022 Urate [Mass/Vol] 3.7 mg/dL Normal 3.5-7.2 [facility] Comment on above: Performed By: #### B HEALTH CARE CONSULTANT, T7, LIPID, TSH, CMP, URIC #### [facility] Laboratory [address] [place] [address] Dr. Wally Zapien VITAMIN D 25 OHon 09-24-2022 VIT D 25-OH 42.6 ng/mL Normal [facility] Comment on above: Performed By: #### U RCX #### [facility] Laboratory [address] [place] [address] Dr. Wally Zapien VIT D RANGES SEE BELOW Normal [facility] Comment on above: Result Comment: <20 ng/mL Vit D deficient 20 - <30 ng/mL Vit D insufficient 30 - 100 ng/mL Vit D sufficient >100 ng/mL Potential Toxicity Performed By: #### U RCX #### [facility] Laboratory [address] [place] [address] Dr. Wally Zapien ED Note-Physicianon 09-19-19 23 ED Note-Physician [id number] #[id number]:127 Normal [facility] Lab Reportson 09-19-2022 Lab Reports [id number]#[id number]:127 Normal [facility] RAD - CT Reporton 09-19-2022 RAD - CT Report [id number] 3#[id number]:127 Normal [facility] CBC AUTO DIFFon 09-18-2022 BASO # 0.0 103/ul Normal 0.0-0.1 [facility] Comment on above: Performed By: #### C BC #### [facility] Laboratory [address] [place] [address] Dr. Wally Zapien Basophils/100 WBC (Bld) 0.7 % Normal 0.2-2.0 [facility] Comment on above: Performed By: #### C BC #### [facility] Laboratory [address] [place] [address] Dr. Wally Zapien EO # 0.1 103/ul Normal 0.0-0.7 [facility] Comment on above: Performed By: #### C BC #### [facility] Laboratory [address] [place] [address] Dr. Wally Zapien Eosinophils/100 WBC (Bld) 2.8 % Normal 0.9-7.0 [facility] Comment on above: Performed By: #### C BC #### [facility] Laboratory [address] [place] [address] Dr. Wally Zapien Erythrocyte distribution width (RBC) [Ratio] 12.7 % Normal 11.0-15.0 [facility] Comment on above: Performed By: #### C BC #### [facility] Laboratory [address] [place] [address] Dr. Wally Zapien Hematocrit (Bld) [Volume fraction] 44.1 % Normal 42.0-54.0 [facility] Comment on above: Performed By: #### C BC #### [facility] Laboratory [address] [place] [address] Dr. Wally Zapien Hemoglobin (Bld) [Mass/Vol] 15.3 g/dL Normal 14.0-18.0 [facility] Comment on above: Performed By: #### C BC #### [facility] Laboratory [address] [place] [address] Dr. Wally Zapien IG # 0.01 10e3/ul Normal 0.00-0.03 [facility] Comment on above: Performed By: #### C BC #### [facility] Laboratory [address] [place] [address] Dr. Wally Zapien IG % 0.2 % Normal 0.0-0.5 [facility] Comment on above: Performed By: #### C BC #### [facility] Laboratory [address] [place] [address] Dr. Wally Zapien LYMPH # 1.8 103/ul Normal 1.2-3.8 [facility] Comment on above: Performed By: #### C BC #### [facility] Laboratory [address] [place] [address] Dr. Wally Zapien Lymphocytes/100 WBC (Bld) 43.0 % Normal 20.5-60.0 [facility] Comment on above: Performed By: #### C BC #### [facility] Laboratory [address] [place] [address] Dr. Wally Zapien MANUAL DIFF REQ NO Normal [facility] Comment on above: Performed By: #### C BC #### [facility] Laboratory [address] [place] [address] Dr. Wally Zapien MCH (RBC) [Entitic mass] 32.1 pg Normal 25.9-34.0 [facility] Comment on above: Performed By: #### C BC #### [facility] Laboratory [address] [place] [address] Dr. Wally Zapien MCHC (RBC) [Mass/Vol] 34.7 g/dL Normal 29.9-35.2 [facility] Comment on above: Performed By: #### C BC #### [facility] [address] [place] [address] Dr. Wally Zapien MCV (RBC) [Entitic vol] 92.5 fL Normal 80.0-94.0 [facility] Comment on above: Performed By: #### C BC #### [facility] [address] [place] [address] Dr. Wally Zapien MONO # 0.4 103/ul Normal 0.3-0.8 [facility] Comment on above: Performed By: #### C BC #### [facility] [address] [place] [address] Dr. Wally Zapien Monocytes/100 WBC (Bld) 9.2 % Normal 1.7-12.0 [facility] Comment on above: Performed By: #### C BC #### [facility] [address] [place] [address] Dr. Wally Zapien NEUT # 1.9 103/ul Normal 1.4-6.5 [facility] Comment on above: Performed By: #### C BC #### [facility] [address] [place] [address] Dr. Wally Zapien Neutrophils/100 WBC (Bld) 44.1 % Normal 43.0-75.0 [facility] Comment on above: Performed By: #### C BC #### [facility] [address] [place] [address] Dr. Wally Zapien Platelet mean volume (Bld) [Entitic vol] 10.4 fL Normal 9.5-13.5 [facility] Comment on above: Performed By: #### C BC #### [facility] [address] [place] [address] Dr. Wally Zapien PLT 152 103/ul Normal 150-450 [facility] Comment on above: Performed By: #### C BC #### [facility] [address] [place] [address] Dr. Wally Zapien RBC 4.77 106/ul Normal 4.70-6.10 [facility] Comment on above: Performed By: #### C BC #### [facility] [address] [place] [address] Dr. Wally Zapien WBC 4.2 103/ul Normal 4.0-11.0 [facility] Comment on above: Performed By: #### C BC #### [facility] [address] [place] [address] ABD/PELVIS WO CONon [...] MAYRA LOPEZ Date: 2022-09-18 13:40 Normal [facility] ER URINE PROFILEon 3 Bilirubin Ql (U) SMALL Abnormal NEGATIVE [facility] Comment on above: Performed By: #### KERRI PADRON #### [facility] [address] [place] [address] Dr. Wally Zapien Clarity (U) SL CLOUDY Abnormal CLEAR [facility] Comment on above: Performed By: #### KERRI PADRON #### [facility] [address] [place] [address] Dr. Wally Zapien Color (U) RED Abnormal YELLOW [facility] Comment on above: Performed By: #### KERRI PADRON #### [facility] [address] [place] [address] Dr. Wally GERBER A micrscopic examination will be performed if indicated. Normal [facility] Comment on above: Performed By: #### KERRI PADRON #### [facility] [address] [place] [address] Dr. Wally Zapien Glucose Ql (U) Negative Normal NEGATIVE [facility] Comment on above: Performed By: #### KERRI PADRON #### [facility] [address] [place] [address] Dr. Wally Zapien Hemoglobin Ql (U) LARGE Abnormal NEGATIVE [facility] Comment on above: Performed By: #### E LAZARO, UMICRO #### [facility] [address] [place] [address] Dr. Wally Zapien Ketones Ql (U) TRACE Abnormal NEGATIVE [facility] Comment on above: Performed By: #### E SANJAYR, UMICRO #### [facility] [address] [place] [address] Dr. Wally Zapien LEUKOCYTES TRACE Abnormal NEGATIVE [facility] Comment on above: Performed By: #### E LAZARO, UMICRO #### [facility] [address] [place] [address] Dr. Wally Zapien Nitrite Ql (U) Positive Abnormal NEGATIVE [facility] Comment on above: Performed By: #### Olinda WILLIS, UMICRO #### [facility] [address] [place] [address] Dr. Wally Zapien pH (U) 5.5 [pH] Normal 5-9 [facility] Comment on above: Performed By: #### Olinda WILLIS UMICRO #### [facility] [address] [place] [address] Dr. Wally Zapien Protein (U) [Mass/Vol] 100 mg/dL Abnormal NEGATIVE/ TRACE [facility] Comment on above: Performed By: #### Olinda WILLIS, UMICRO #### [facility] [address] [place] [address] Dr. Wally Zapien SPEC GRAVITY 1.025 Normal 1.005-<=1.025 [facility] Comment on above: Performed By: #### Olinda WILLIS, UMICRO #### [facility] [address] [place] [address] Dr. Wally Zapien UR MICRO IND INDICATED Normal [facility] Comment on above: Performed By: #### Olinda WILLIS, UMICRO #### [facility] [address] [place] [address] Dr. Wally Zapien Urobilinogen Qn (U) 1.0 {Suma'U}/dL Normal 0.2 - 1. 0 [facility] Comment on above: Performed By: #### E KERRI WILLIS #### [facility] Laboratory [address] [address] [address] Wally Zapien PROF CHEM 8 (BAS METB)on Anion gap [Moles/Vol] 10.5 mmol/L Normal [facility] Comment on above: Performed By: #### U RCX #### [facility] [address] [address] [address] Wally Zapien Calcium [Mass/Vol] 8.6 mg/dL Normal 8.5-10.1 [facility] Comment on above: Performed By: #### U RCX #### [facility] [address] [place] [address] Dr. Wally Zapien Chloride [Moles/Vol] 105 mmol/L Normal 98-107 [facility] Comment on above: Performed By: #### U RCX #### [facility] [address] [place] [address] Dr. Wally Zapien CO2 [Moles/Vol] 28.8 mmol/L Normal 21.0-32.0 [facility] Comment on above: Performed By: #### U RCX #### [facility] [address] [place] [address] Dr. Wally Zapien Creatinine [Mass/Vol] 0.85 mg/dL Normal 0.70-1.30 [facility] Comment on above: Performed By: #### U RCX #### [facility] [address] [place] [address] Dr. Wally Zapien EGFR-AF GUINEAN >60 Normal >=60 [facility] Comment on above: Performed By: #### U RCX #### [facility] [address] [place] [address] Dr. Wally Zapien EGFR-NON AF GUINEAN >60 Normal >=60 [facility] Comment on above: Performed By: #### U RCX #### [facility] [address] [place] [address] Dr. Wally Zapien Glucose [Mass/Vol] 112 mg/dL Critically high 74-106 [facility] Comment on above: Performed By: #### U RCX #### [facility] [address] [address] [address] Wally Zapien Potassium [Moles/Vol] 4.3 mmol/L Normal 3.5-5.1 [facility] Comment on above: Performed By: #### U RCX #### [facility] [address] [address] [address] Wally Zapien Sodium [Moles/Vol] 140 mmol/L Normal 136-145 [facility] Comment on above: Performed By: #### U RCX #### [facility] [address] [address] [address] Wally Zapien Urea nitrogen [Mass/Vol] 23.0 mg/dL Critically high 7.0-18.0 [facility] Comment on above: Performed By: #### U RCX #### [facility] [address] [place] [address] Dr. Wally Zapien Urea nitrogen/Creatinine [Mass ratio] 27.1 mg/mg Normal [facility] Comment on above: Performed By: #### U RCX #### [facility] [address] [place] [address] Dr. Wally Zapien URINE MICROSCOPIC ONLYon BACTERIA TRACE Abnormal NONE SEEN [facility] Comment on above: Performed By: #### Olinda WILLIS UMICRO #### [facility] [address] [place] [address] Dr. Wally Zpaien Bacteria identified Cx Nom (U) NOT INDICATED Normal [facility] Comment on above: Performed By: #### E RUR UMICRO #### [facility] [address] [place] [address] Dr. Wally Zapien CAST NONE SEEN Normal NONE SEEN [facility] Comment on above: Performed By: #### E LAZARO UMICRO #### [facility] [address] [place] [address] Dr. Wally Zapien Crystals LM Nom (Urine sed) NONE SEEN Normal NONE SEEN [facility] Comment on above: Performed By: #### E RUJanell UMICRO #### [facility] [address] [address] [address] Wally Zapien Epithelial cells LM Ql (Urine sed) RARE Normal NONE SEEN /RARE [facility] Comment on above: Performed By: #### E SANJAYR, UMICRO #### [facility] Laboratory [address] [address] [address] Wally Zapien MUCOUS NONE SEEN Normal NONE SEEN [facility] Comment on above: Performed By: #### E SANJAYR, UMICRO #### [facility] [address] [address] [address] Wally Zapien RBC (U) [#/Vol] /uL Abnormal 0-2 [facility] Comment on above: Performed By: #### E SANJAYR, UMVIANCARO #### [facility] [address] [address] [address] Wally Zapien WBC 2-5 Abnormal NONE SEEN [facility] Comment on above: Performed By: #### Olinda WILLIS, UMICRO #### [facility] [address] [address] [address] Wally Zapien Patient Educationon 04-16-20 Patient [...] in your pocket, or use a mobile jenniefr or website. Some programs will calculate calories [...] You could (more content not included)... Normal [facility] Urology Office/Clinic Noteon 04-16-2022 Urology [...] COE, [place] Maciel, URL In 1 year [facility] [id number] [facility] (1) Additional Instructions: Patient Education Benign Prostatic [...] vaccine 07/06 (more content not included)... Normal [facility] Comment on above: Result Comment: [...] Urnls Dip Stick Auto w/o Microscopy POC 18902 Your Care Team Attending Physician - [place]o [...] Where: [facility] [address] [place] [address] [facility] (1) Medications What How Much When [...] Urnls Dip Stick Auto w/o Microscopy POC 67873 (10/16/2021) Bilirubin Urine Dipstick - Negative Blood Urine Dipstick - Negative Glucose Urine Dipstick - Negative Ketones Urine Dipstick - Negative Leukocytes Urine Dipstick - Trace Nitrite Urine Dipstick - Negative Protein Urine Dipstick - 2+ (100 mg/dl) Specific Sulphur Urine Dipstick - 1.025 Urine Appearance Urine [...] urine fr (more content not included)... Normal [facility] Patient Educationon 10-16-19 Patient Education [...] Follow these instructions at home: ? Take vpdp-lzq-dilrzwd and prescription medicines only as told by [...] 09/07/2016 Document Revised: 03/25/2019 Document Reviewed: 03/25/2019 [employer] Patient Education ? 2019 [facility] [employer] [facility] Urology Office/Clinic Noteon 10-16-2021 Urology Office/Clinic [...] Maciel, URL [facility] [address] [place] [address]- [facility] (1) Additional Instructions: 6 month follow [...] disease: Mother. (more content not included)... Normal [facility] Comment on above: Result Comment: Elec tronically Signed By: Reno VALENTIN MD\.br\Date and Time Signed: 10/16/21 14:57 EST\.br\Electronically Co-Signed By: Katherine Nolasco\.br\Date and Time Co-Signed: 10/16/21 14:55 EST Vital Signs Date Time Vital Sign Value Performing Clinician Facility 07-17-2023 15:40-0500 Body height 160.02 cm Rocio Chan Other [facility] Other 07-17-2023 15:40-0500 Body mass index (BMI) [Ratio] 37.55 kg/m2 Rocio Chan Other [facility] Other 07-17-2023 15:40-0500 Body temperature 98.2 [degF] Rocio Nullmond Other [facility] Other 07-17-2023 15:40-0500 Body weight 96.16 kg Rocio Chan Other [facility] Other 07-17-2023 15:40-0500 Diastolic blood pressure 76 mm[Hg] Rocio Nullmond Other [facility] Other 07-17-2023 15:40-0500 Respiratory rate 18 /min Rocio Nullmond Other [facility] Other 07-17-2023 15:40-0500 SaO2% (BldA) [Mass fraction] 96 % Rocio Nullmond Other [facility] Other 07-17-2023 15:40-0500 Systolic blood pressure 134 mm[Hg] Rocio Rocio Other [facility] Other 09-26-2022 13:26-0500 Blood Pressure Location Reno VALENTIN [facility] 09-26-2022 13:26-0500 Diastolic blood pressure 74 mm[Hg] [place]o VALENTIN [facility] 09-26-2022 13:26-0500 Heart rate 52 /min [place]o VALENTIN [facility] 09-26-2022 13:26-0500 Systolic blood pressure 173 mm[Hg] [place] VALENTIN [facility] 04-16-2022 13:49-0400 Diastolic blood pressure 87 mm[Hg] [place] VALENTIN [facility] 04-16-2022 13:49-0400 Mean blood pressure 110 mm[Hg] [place]o VALENTIN [facility] 04-16-2022 13:49-0400 Systolic blood pressure 156 mm[Hg] [place]o VALENTIN [facility] 04-16-2022 13:37-0400 Blood Pressure Location Reno VALENTIN [facility] 04-16-2022 13:37-0400 Diastolic blood pressure 102 mm[Hg] [place]o VALENTIN [facility] 04-16-2022 13:37-0400 Heart rate 81 /min [place]o VALENTIN [facility] 04-16-2022 13:37-0400 Respiratory rate 16 /min [place]o VALENTIN [facility] 04-16-2022 13:37-0400 Systolic blood pressure 191 mm[Hg] Renonoe VALENTIN [facility] En[facility]ters Encounter Date Encounter Type Care Provider Facility Start: 2023 End: 09-24-2023 ambulatory Fabrice Dias MD Facility:[facility] Start: 07-17-2023 End: 07-17-2023 ambulatory Rocio Chan Other [facility] Other Start: 07-17-2023 Office outpatient visit 15 minutes Rocio Chan [facility] Start: 05-27-2023 End: 05-28-2023 ambulatory Fabrice Dias MD Facility:[facility] Start: 04-19-2023 ambulatory MD [place]o VALENTIN Fac ility:[facility] [place] Start: 01-23-[address] ELIANA BA . Facili ty:[facility] Start: 01-16-2023 ambulatory MD [place]o VALENTIN Fac ility:[facility] [place] Start: 09-26-2022 End: 09-27-2022 ambulatory MD [place]o VALENTIN Facility:[facility] [place] Start: 09-26-2022 End: 09-26-2022 Patient encounter procedure Reno VALENTIN [facility] Start: 09-24-2022 End: 09-25-[address] ELIANA BA . Facility:[facility] Start: 09-18-2022 End: 09-18-2022 ambulatory KARLOS MELTON . Facility:[facility] Start: 04-16-2022 End: 04-17-2022 ambulatory MD Reno VALENTIN Facility:[facility] [place] Start: 04-16-2022 End: 04-16-2022 Patient encounter procedure Reno VALENTIN [facility] Start: 10-16-2021 ambulatory MD [place]o VALENTIN Facil ity:[facility] Start: 10-16-2021 End: 10-17-2021 ambulatory MD Reno VALENTIN Facility:[facility] Procedures Date Procedure Procedure Detail Performing Clinician Start: 09-24-2022 PSA screening KARLOS ALVAREZ . Comment on above: Performed By: #### U RCX #### [facility] [address] [place] [address] Dr. Wally Zapien Start: 03-17-2019 Cystoscope, device [...] unspecified formulation Renonoe VALENTIN [facility] 04-20-2022 SARS-CoV-2 mRNA (trdmrtyggak-aapk-wpzfrg e) vaccine Renonoe VALENTIN [facility] 06-19-2021 SARS-CoV-2 (COVID-19 ) mRNA BNT-162b2 vax [employer] [facility] 06-01-2021 influenza virus vacc ine, unspecified formulation [employer] [facility] 05-23-2021 influenza virus vacc ine, unspecified formulation [employer] [facility] 11-10-2020 SARS-CoV-2 (COVID-19 ) mRNA BNT-162b2 vax [employer] [facility] 10-20-2020 SARS-CoV-2 (COVID-19 ) mRNA BNT-162b2 vax [employer] [facility] 08-04-2020 zoster vaccine recombinant [employer] [facility] 07-06-2020 SARS-CoV-2 (COVID-19 ) Ad26 vaccine, recombinant [employer] [facility] 06-24-2020 influenza virus vacc ine, unspecified formulation [employer] [facility] 06-03-2020 zoster vaccine recombinant [place] [employer] [facility] 06-02-2020 SARS-CoV-2 (COVID-19 ) Ad26 vaccine, recombinant [place] VALENTIN [facility] 05-26-2020 influenza virus vacc ine, unspecified formulation [place] VALENTIN [facility] 05-29-2019 influenza virus vacc ine, unspecified formulation [place] VALENTIN [facility] 06-17-2018 influenza virus vacc ine, unspecified formulation [place] VALENTIN [facility] 05-14-2017 influenza virus vacc ine, unspecified formulation [place] VALENTIN [facility] 05-14-2017 pneumococcal polysaccharide vaccine, 23 valent [place] VALENTIN [facility] 05-17-2016 influenza virus vacc ine, unspecified formulation [place] VALENTIN [facility] 05-17-2016 pneumococcal conjuga te vaccine, 13 valent Renonoe VALENTIN [facility] 05-16-2015 influenza virus vacc ine, unspecified formulation [place] VALENTIN [facility] Payers Date Payer Category Payer Private Health Insurance 1959 Private Health Insurance [id number] 1940 Unknown [id number] 2.16.8 [id number] 1942 Unknown [id number] 2.16.8 [id number] 1942 Unknown [id number] 2.16.8 [id number] 1942 Unknown [id number] 2.16.8 [id number] 1942 Unknown [id number] 2.16.8 [id number] 1942 Unknown [id number] 2.16.84 [id number] 1942 Unknown [id number] 2.16.84 [id number] 1942 Unknown [id number] 2.16.84 [id number] 1942 Unknown [id number] 2.16. [id number] 1942 Unknown [id number] 2.16. [id number] Social History Date Type Detail Facility Start: 04-16-2022 End: 09-26-2022 Tobacco smoking status Never smoked tobacco (finding) [facility] [place] Tobacco smoking status Never [facility] [facility] Sex Assigned At Male [facility] Functional Status Date Assessment Result Facility 09-26-2022 Functional Status N/A [facility] 04-16-2022 Functional Status N/A [facility] Evaluation note 07-17-2023 Note Date & Type [...] no improvement in 2 to 3 days [facility] Discharge instructions 09-26-2022 Note Date [...] or mouth. Supplies needed: Soap. 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 Standard cleaning products. Disinfectants, such as bleach. [...] water are not available, use alcohol-based hand waste collection driver. Avoid touching your face, mouth, nose, or [...] water. Air-dry your dishes or use a pulp grinder. Do not share dishes or eating utensils. [...] certain germs and not others. Read the shell sieve operator's instructions or read online resources to determine [...] minutes after each use, or according to shell sieve operator's instructions. Wash reusable cleaning cloths and sanitize [...] water are not available, use alcohol-based hand waste collection driver. In general: Stay home except to get [...] Professionals in Infection Control and Epidemiology: professionals.[email or web address].org/se [email or web address]/[email or web address]-healthcare- setting/home/ Summary It is important to know [...] 05/21/2009 Document Revised: 12/08/2019 Document Reviewed: 11/06/2019 [employer] Patient Education 2019 [employer] (formerly [employer]). Follow Up Care 09/20/2022 14:58:28 With:JAYDON COE, Reno Maciel, URL Address: [facility] [address] , [place] [address]- When:3 months Comments:UTI F/U [facility] Hospital Discharge instructions 04-16-2022 Note Date [...] urethra. Follow these instructions at home: Take qduq-vck-tgjbdxy and prescription medicines only as told by [...] 08/12/2006 Document Revised: 07/07/2019 Document Reviewed: 09/16/2017 [employer] Patient Education 2020 [employer] (formerly [employer]). 04/16/2022 14:44:17 Calorie Counting for Weight Loss [...] 08/12/2006 Document Revised: 05/01/2019 Document Reviewed: 07/12/2017 [employer] Patient Education 2020 [employer] (formerly [employer]). Follow Up Care 10/16/2021 15:00:57 With:JAYDON COE, Reno Maciel, URL Address: [address] [place] [id number]- Business (1) When:Within 1 Year(s) [facility] Clinical Note 10-06-2020 Note Date & Type Note Facility 10-06-2020 Note Patient Outreach ([place] [facility]) PRASHANTH RICHARD ([id number]) 1940 M Date Time Provider Department 10/06/20 WEATHERS, JOLYNN COVAMN During your visit today, we recorded the following information about you: Allergies As of Date: 10/06/2020 (No Known Allergies) Date Reviewed: 11/27/2018 Reviewed by: Huyen Barraza - Fully Assessed Order(s):SARS-COVID VACCINE 1ST DOSE APPT [[id number]] Order #: [id number] FUTURE Prescriptions as of 10/06/2020 Sig: RHOPRESSA [...] Encounter Status:Closed by NIDIA VOGEL on 10/10/20 [facility] Evaluation + Plan note Note Date & Type Note Facility Evaluation + Plan note Future Appointments Appointment Date:04/19/2023 09:30:00 AM Scheduled Provider:Reno VALENTIN MD Location:[facility] Appointment Type:URO Office Visit [facility] Evaluation + Plan note Note Date & Type Note Facility Evaluation + Plan note Future Appointments Appointment Date:01/16/2023 09:45:00 AM Scheduled Provider:Reno VALENTIN MD Location:[facility] Appointment Type:URO Office Visit Appointment Date:04/19/2023 09:30:00 AM Scheduled Provider:Reno VALENTIN MD Location:[facility] Appointment Type:URO Office Visit [facility] History general Narrative - Reported Note [...] see above Hospitalization History back spasms 2022 [facility] course Narrative Note Date & Type Note Facility Hospital course Narrative No data available for this section [facility] [place] note Note Date & Type Note Facility [place] note No data available for this section [facility] Summary Purpose Family History No Family History [...] section and content) DATE CREATED AUTHOR 09/19/2021 [facility] DATE CREATED AUTHOR AUTHOR'S ORGANIZ ATION 09/28/2022 [facility] DATE CREATED AUTHOR AUTHOR'S ORGANIZ ATION 02/01/2023 [facility] DATE CREATED AUTHOR AUTHOR'S ORGANIZ ATION 09/26/2023 [facility] Care Team (unrecognized sect ion and content) Personnel Name: Eliana Ba MD Address: [address] [place] [address] Personnel Name: Eliana Ba MD Address: Address: [address] [place] [address] REASON FOR VISIT (unrecogniz ed section and [...] BE BASED ON THE PRIMARY CLINICAL RECORDS. [facility]. provides no warranty or guarantee of the accuracy or completeness of information in this document.
[2023-10-28 11:17] VITALS: BP 147/82; PULSE 59; RESP 16; TEMP 36.6; O2SAT 97
[2023-10-28 11:54] VITALS: BP 144/76; BP 153/80; PULSE 56; PULSE 58; RESP 18; RESP 20; O2SAT 97
[2023-10-28] MEDS: LIDOCAINE HCL 2% PF 100 MG/5 ML VIAL 3 ML INJ (11:56)
[2023-10-28] MEDS: BUPIVACAINE HCL 0.25% PF 25 MG/10 ML VIAL 6 ML INJ (11:56)
--- NOTE | 2023-10-28 12:03 | W.PM.PROCNOT ---
Date of procedure: 10/28/23 Pre-op diagnosis: Lumbar spondylosis Post-op diagnosis: same as pre-op Procedure: Procedure: Bilateral L4-5, L5-S1 medial branch block Medications: Bupivacaine 0.25% 6cc The patient was seen and examined in the preoperative holding area.? An informed consent was obtained and placed on the chart.? The patient was brought to the medical procedure unit and placed in the prone position.? A timeout was completed verifying correct patient, procedure site, positioning, plan, and special equipment.? Using aseptic technique, the needle was placed at left L4. Under direct fluoroscopic visualization a Quincke-tipped spinal needle was advanced to the junction of the superior articulating process with the transverse process at the designated medial branch segment.? Preceded by negative aspiration, the above-mentioned injectate was placed in 1 mL aliquots.? The procedure was repeated at left L5, S1.? The needle was removed and insertion site was covered. The same procedure, at the same levels, was completed on the right side. The patient was taken to the postprocedural recovery area and monitored for an appropriate length of time before found suitable for discharge in the company of a responsible adult. Anesthesia: Local Surgeon: Fabrice Dias Pathology: none sent Condition: stable Disposition: no change
== END 2023-10-28 12:08 | disposition home or self-care (01) ==
PROVIDERS: PCP Family Medicine; Visit Provider Anesthesiology
DX: M47.816 Spondylosis without myelopathy or radiculopathy, lumbar region (principal)
CPT/HCPCS: 64493; 64494

== ENCOUNTER 2023-11-06 09:19 | Outpatient (OUT) | payer MEDICARE, SELFPAY ==
--- OUTSIDE RECORDS SUMMARY | 2023-11-06 09:24 | XMS_ITS | CCD ---
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 Name Role Phone Eliana Ba Primary Care [...] MONROY Primary Care Unavailable HOY ., DR MORNOY Consulting Unavailable HOY ., DR MONROY Attending Unavailable HOY ., DR MONROY Admitting Unavailable HOY ., DR MONROY Primary Care Unavailable HOY ., DR MONROY Consulting Unavailable CALVIN BARNES Consulting Unavailable Rocio Chan Unavailable Arun COE, Fabrice Conner Attending Unavailable Arun COE, Fabrice Conner Attending Unavailable Arun COE, Fabrice Conner Attending Unavailable Gimerlyn COE, Fabrice Conner Attending Unavailable Allergies Allergy Classification Reported Allergen(s) Allergy Type Date of Onset Reaction(s) Facility (2 sources) levoFLOXacin; Translations: [levofloxacin] Drug Allergy Irritation (qualifier value) [facility] Medications Current Medications Medication Drug Class(es) Dates [...] # 20 cap(s), Refills(s) 0, Pharmacy: [id number], 160, cm, 09/26/22 13:50:00 EST, Height/Length Dosing, [...] BID, # 180 cap(s), Refills(s) 3, Pharmacy: [facility], 160, cm, 10/16/21 14:26:00 EST, Height/Length Dosing, [...] 10-16-2021 Episodic Other aftercare (1 source) Other custodial (current) drug therapy; Translations: [OTH TIP BANDER CURRENT DRUG THERAPY] Onset: 09-20-2022 Episodic Other aftercare (1 source) care home (current) use of aspirin; Translations: [TIP BANDER CURRENT USE OF ASPIRIN] Onset: 09-20-2022 Episodic [...] Value Interpretation Reference Range Facility COVID/FLU RT-PCRon SARS-CoV-2 (COVID-19) RNA TERRIE+probe Ql (Unsp spec) Positive [facility] Other COVID/FLU RT-PCR Negative [employer] Other XR KNEE RT 3Von 01-23-2023 XR KNEE RT 3V EXAM: XR KNEE RT 3V HISTORY: Osteoarthritis of knee COMPARISON: None TECHNIQUE: 3 views FINDINGS: No acute fracture or dislocation. Moderate to severe degenerative changes. Unremarkable soft tissues. IMPRESSION: Moderate to severe degenerative changes. Electronically authenticated by: CALVIN BARNES Date: 2023-01-23 13:29 Normal [facility] Screenson 09-27-2022 Screens [id number] 6#1.00CD:127 Normal [facility] Patient Educationon 09-26-19 Patient Education Infectious Disease Infection Prevention in [...] Supplies needed: ? Soap. ? Alcohol-based hand applications programmer analyst. ? Standard cleaning products. ? Disinfectants, such [...] water are not available, use alcohol-based hand applications programmer analyst. ? Avoid touching your face, mouth, nose, [...] water. Air-dry your dishes or use a social media senior associate. ? Do not share dishes or eating [...] certain germs and not others. Read the swimming pool maintenance's instructions or read online resources to determine [...] Chief Complaint pt here for f[facility]u from [facility] due to hematuria HPI Staff Pt is here for a hospital f/u from [facility] 09/18/[address]. [address] scan done [...] infection today Pt was given Levofloxacin at [facility] ER and he could not tolerate [...] hematuria (R31.0: Gross hematuria) PT went to [facility] ER on 09/18/22 due to hematuria. [...] 3 months [facility] [address] [place] [address]- Additional Instructions: UTI F/U Patient Education Infection Prevention in the Home IMerle, personally scribed for Dr. Valentin on 09/26/2022 14:16:39. . Documentation recorded by the scribe, Merle Miranda, accurately reflects the services(s) I performed and decisions made by me. Aut (more content not included)... Normal [facility] Comment on above: Result Comment: Elec tronically Signed By: Reno VALENTIN MD\.br\Date and Time Signed: 09/26/22 14:20 EST\.br\Electronically Co-Signed By: Merle Miranda\.br\Date and Time Co-Signed: 09/26/22 14:16 EST INSULINon 09-25-2022 Insulin 6.0 uIU/mL Normal 2.6-24.9 [facility] Comment on above: Performed By: #### I NSULIN #### [facility] [address] [place] [address] Dr. Wally Zapien BNPon 09-24-2022 Natriuretic peptide B (Bld) [Mass/Vol] 110.0 pg/mL Normal <=1,800.0 [facility] Comment on above: Performed By: #### U RCX #### [facility] [address] [place] [address] Dr. Wally Zapien CBC AUTO DIFFon 09-24-2022 BASO # 0.0 103/ul Normal 0.0-0.1 [facility] Comment on above: Performed By: #### C BC #### [facility] [address] [place] [address] Dr. Wally Zapien Basophils/100 WBC (Bld) 1.0 % Normal 0.2-2.0 [facility] Comment on above: Performed By: #### C BC #### [facility] [address] [place] [address] Dr. Wally Zapien EO # 0.2 103/ul Normal 0.0-0.7 [facility] Comment on above: Performed By: #### C BC #### [facility] [address] [place] [address] Dr. Wally Zapien Eosinophils/100 WBC (Bld) 4.2 % Normal 0.9-7.0 [facility] Comment on above: Performed By: #### C BC #### [facility] [address] [place] [address] Dr. Wally Zapien Erythrocyte distribution width (RBC) [Ratio] 12.5 % Normal 11.0-15.0 [facility] Comment on above: Performed By: #### C BC #### [facility] [address] [place] [address] Dr. Wally Zapien Hematocrit (Bld) [Volume fraction] 43.7 % Normal 42.0-54.0 [facility] Comment on above: Performed By: #### C BC #### [facility] [address] [place] [address] Dr. Wally Zapien Hemoglobin (Bld) [Mass/Vol] 15.4 g/dL Normal 14.0-18.0 [facility] Comment on above: Performed By: #### C BC #### [facility] [address] [place] [address] Dr. Wally Zapien IG # 0.02 10e3/ul Normal 0.00-0.03 [facility] Comment on above: Performed By: #### C BC #### [facility] [address] [place] [address] Dr. Wally Zapien IG % 0.5 % Normal 0.0-0.5 [facility] Comment on above: Performed By: #### C BC #### [facility] [address] [place] [address] Dr. Wally Zapien LYMPH # 1.7 103/ul Normal 1.2-3.8 [facility] Comment on above: Performed By: #### C BC #### [facility] [address] [place] [address] Dr. Wally Zapien Lymphocytes/100 WBC (Bld) 42.6 % Normal 20.5-60.0 [facility] Comment on above: Performed By: #### C BC #### [facility] [address] [place] [address] Dr. Wally Zapien MANUAL DIFF REQ NO Normal [facility] Comment on above: Performed By: #### C BC #### [facility] [address] [place] [address] Dr. Wally Zapien MCH (RBC) [Entitic mass] 31.6 pg Normal 25.9-34.0 [facility] Comment on above: Performed By: #### C BC #### [facility] [address] [place] [address] Dr. Wally Zapien MCHC (RBC) [Mass/Vol] 35.2 g/dL Normal 29.9-35.2 [facility] Comment on above: Performed By: #### C BC #### [facility] [address] [place] [address] Dr. Wally Zapien MCV (RBC) [Entitic vol] 89.5 fL Normal 80.0-94.0 [facility] Comment on above: Performed By: #### C BC #### [facility] [address] [place] [address] Dr. Wally Zapien MONO # 0.4 103/ul Normal 0.3-0.8 [facility] Comment on above: Performed By: #### C BC #### [facility] [address] [address] [address] Wally Zapien Monocytes/100 WBC (Bld) 9.2 % Normal 1.7-12.0 [facility] Comment on above: Performed By: #### C BC #### [facility] [address] [address] [address] Wally Zapien NEUT # 1.7 103/ul Normal 1.4-6.5 [facility] Comment on above: Performed By: #### C BC #### [facility] [address] [place] [address] Dr. Wally Zapien Neutrophils/100 WBC (Bld) 42.5 % Critically low 43.0-75.0 [facility] Comment on above: Performed By: #### C BC #### [facility] [address] [place] [address] Dr. Wally Zapien Platelet mean volume (Bld) [Entitic vol] 9.9 fL Normal 9.5-13.5 [facility] Comment on above: Performed By: #### C BC #### [facility] [address] [place] [address] Dr. Wally Zapien PLT 149 103/ul Critically low 150-450 [facility] Comment on above: Performed By: #### C BC #### [facility] [address] [place] [address] Dr. Wally Zapien RBC 4.88 106/ul Normal 4.70-6.10 [facility] Comment on above: Performed By: #### C BC #### [facility] [address] [place] [address] Dr. Wally Zapien WBC 4.0 103/ul Normal 4.0-11.0 [facility] Comment on above: Performed By: #### C BC #### [facility] [address] [place], [place] [id number] Dr. Wally Zapien CULTURE URINEon 09-24-2022 CULTURE URINE Culture Observations: LIGHT GROWTH OF MIXED SKIN GENNA. NO POTENTIAL PATHOGENS SEEN. Normal [facility] Comment on above: Performed By: #### U RCX #### [facility] [address] [address] [address] Wally Zapien FREE THYROXINE INDEX T7on FTI 2.52 Normal 1.30-4.50 [facility] Comment on above: Performed By: #### U RCX #### [facility] [address] [place] [address] Dr. Wally Zapien T3U 36.0 % Normal 33.0-40.0 [facility] Comment on above: Performed By: #### U RCX #### [facility] [address] [place] [address] Dr. Wally Zapien T4 [Mass/Vol] 7.00 ug/dL Normal 4.50-12.10 [facility] Comment on above: Performed By: #### U RCX #### [facility] [address] [place] [address] Dr. Wally Zapien GLYCOHEMOGLOBIN A1Con 2022 ADA RECOMMENDATION SEE BELOW Normal [facility] Comment on above: Result Comment: ADA RECOMMENDED LIMIT 4.0 - 6.0 ADA THERAPEUTIC TARGET < 7.0 ACTION SUGGESTED > 7.0 Performed By: #### A 1C #### [facility] [address] [place] [address] Dr. Wally Zapien Glucose [Mass/Vol] 123 mg/dL Normal [facility] Comment on above: Performed By: #### A 1C #### [facility] [address] [place] [address] Dr. Wally Zapien HbA1c (Bld) [Mass fraction] 5.9 % Normal 4.5-6.2 [facility] Comment on above: Performed By: #### A 1C #### [facility] [address] [place] [address] Dr. Wally Zapien LIPID PROFILEon 09-24-2022 CHOL-HDL RATIO NORM SEE BELOW Normal [facility] Comment on above: Result Comment: 3.3 - 4.4 LOW RISK 4.4 - 7.1 AVERAGE RISK 7.1 - 11.0 MODERATE RISK >11.0 HIGH RISK Performed By: #### U RCX #### [facility] [address] [place] [address] Dr. Wally Zapien Cholesterol [Mass/Vol] 117 mg/dL Normal <=200 [facility] Comment on above: Performed By: #### U RCX #### [facility] [address] [address] [address] Wally Zapien Cholesterol in HDL [Mass/Vol] 38 mg/dL Critically low 40-60 [facility] Comment on above: Performed By: #### U RCX #### [facility] [address] [address] [address] Wally Zapien Cholesterol in LDL [Mass/Vol] 32.6 mg/dL Normal [facility] Comment on above: Performed By: #### U RCX #### [facility] [address] [address] [address] Wally Zapien Cholesterol.total/Ch olesterol in HDL [Mass ratio] 3.1 {ratio} Normal [facility] Comment on above: Performed By: #### U RCX #### [facility] [address] [address] [address] Wally Zapien HDL NORMAL > or = 60 mg/dl - LOW CARDIOVASCULAR RISK <40 mg/dl - HIGH CARDIOVASCULAR RISK Normal [facility] Comment on above: Performed By: #### U RCX #### [facility] [address] [address] [address] Wally Zapien LDL CALC NORMAL SEE BELOW Normal [facility] Comment on above: Result Comment: <100 mg/dl OPTIMAL 100 - 129 mg/dl NEAR OR ABOVE OPTIMAL 130 - 159 mg/dl BORDERLINE HIGH 160 - 189 mg/dl HIGH >190 mg/dl VERY HIGH Performed By: #### U RCX #### [facility] [address] [address] [address] Wally Zapien Triglyceride [Mass/Vol] 232 mg/dL Critically high <=150 [facility] Comment on above: Performed By: #### U RCX #### [facility] [address] [address] [address] Wally Zapien VLDL CALC 46.4 mg/dL Normal [facility] Comment on above: Performed By: #### U RCX #### [facility] [address] [place] [address] Dr. Wally Zapien PROF 14(COMP METB)on 023 Albumin [Mass/Vol] 3.8 g/dL Normal 3.4-5.0 [facility] Comment on above: Performed By: #### B INVESTIGATOR INTERNAL REVENUE, T7, LIPID, TSH, CMP, URIC #### [facility] [address] [place] [address] Dr. Wally Zapien Albumin/Globulin [Mass ratio] 1.2 {ratio} Normal [facility] Comment on above: Performed By: #### B INVESTIGATOR INTERNAL REVENUE, T7, LIPID, TSH, CMP, URIC #### [facility] [address] [place] [address] Dr. Wally Zapien ALP [Catalytic activity/Vol] 80 U/L Normal 46-116 [facility] Comment on above: Performed By: #### B INVESTIGATOR INTERNAL REVENUE, T7, LIPID, TSH, CMP, URIC #### [facility] [address] [place] [address] Dr. Wally Zapien ALT [Catalytic activity/Vol] 34 U/L Normal 16-63 [facility] Comment on above: Performed By: #### B INVESTIGATOR INTERNAL REVENUE, T7, LIPID, TSH, CMP, URIC #### [facility] [address] [place] [address] Dr. Wally Zapien Anion gap [Moles/Vol] 11.3 mmol/L Normal [facility] Comment on above: Performed By: #### B INVESTIGATOR INTERNAL REVENUE, T7, LIPID, TSH, CMP, URIC #### [facility] [address] [place] [address] Dr. Wally Zapien AST [Catalytic activity/Vol] 24 U/L Normal 15-37 [facility] Comment on above: Performed By: #### B INVESTIGATOR INTERNAL REVENUE, T7, LIPID, TSH, CMP, URIC #### [facility] [address] [place] [address] Dr. Wally Zapien Bilirubin [Mass/Vol] 1.0 mg/dL Normal 0.2-1.0 [facility] Comment on above: Performed By: #### B INVESTIGATOR INTERNAL REVENUE, T7, LIPID, TSH, CMP, URIC #### [facility] [address] [place] [address] Dr. Wally Zapien Calcium [Mass/Vol] 8.5 mg/dL Normal 8.5-10.1 [facility] Comment on above: Performed By: #### B INVESTIGATOR INTERNAL REVENUE, T7, LIPID, TSH, CMP, URIC #### [facility] [address] [place] [address] Dr. Wally Zapien Chloride [Moles/Vol] 105 mmol/L Normal 98-107 [facility] Comment on above: Performed By: #### B INVESTIGATOR INTERNAL REVENUE, T7, LIPID, TSH, CMP, URIC #### [facility] [address] [place] [address] Dr. Wally Zapien CO2 [Moles/Vol] 28.6 mmol/L Normal 21.0-32.0 [facility] Comment on above: Performed By: #### B INVESTIGATOR INTERNAL REVENUE, T7, LIPID, TSH, CMP, URIC #### [facility] [address] [place] [address] Dr. Wally Zapien Creatinine [Mass/Vol] 0.74 mg/dL Normal 0.70-1.30 [facility] Comment on above: Performed By: #### B INVESTIGATOR INTERNAL REVENUE, T7, LIPID, TSH, CMP, URIC #### [facility] [address] [place] [address] Dr. Wally Zapien EGFR-AF DUTCH >60 Normal >=60 [facility] Comment on above: Performed By: #### B INVESTIGATOR INTERNAL REVENUE, T7, LIPID, TSH, CMP, URIC #### [facility] [address] [place] [address] Dr. Wally Zapien EGFR-NON AF DUTCH >60 Normal >=60 [facility] Comment on above: Performed By: #### B INVESTIGATOR INTERNAL REVENUE, T7, LIPID, TSH, CMP, URIC #### [facility] [address] [place] [address] Dr. Wally Zapien Globulin (S) [Mass/Vol] 3.2 g/dL Normal [facility] Comment on above: Performed By: #### B INVESTIGATOR INTERNAL REVENUE, T7, LIPID, TSH, CMP, URIC #### [facility] [address] [place] [address] Dr. Wally Zapien Glucose [Mass/Vol] 102 mg/dL Normal 74-106 [facility] Comment on above: Performed By: #### B INVESTIGATOR INTERNAL REVENUE, T7, LIPID, TSH, CMP, URIC #### [facility] [address] [place] [address] Dr. Wally Zapien Potassium [Moles/Vol] 3.9 mmol/L Normal 3.5-5.1 [facility] Comment on above: Performed By: #### B INVESTIGATOR INTERNAL REVENUE, T7, LIPID, TSH, CMP, URIC #### [facility] [address] [place] [address] Dr. Wally Zapien Protein [Mass/Vol] 7.0 g/dL Normal 6.4-8.2 [facility] Comment on above: Performed By: #### B INVESTIGATOR INTERNAL REVENUE, T7, LIPID, TSH, CMP, URIC #### [facility] [address] [place] [address] Dr. Wally Zapien Sodium [Moles/Vol] 141 mmol/L Normal 136-145 [facility] Comment on above: Performed By: #### B INVESTIGATOR INTERNAL REVENUE, T7, LIPID, TSH, CMP, URIC #### [facility] [address] [place] [address] Dr. Wally Zapien Urea nitrogen [Mass/Vol] 19.0 mg/dL Critically high 7.0-18.0 [facility] Comment on above: Performed By: #### B INVESTIGATOR INTERNAL REVENUE, T7, LIPID, TSH, CMP, URIC #### [facility] [address] [place] [address] Dr. Wally Zapien Urea nitrogen/Creatinine [Mass ratio] 25.7 mg/mg Normal [facility] Comment on above: Performed By: #### B INVESTIGATOR INTERNAL REVENUE, T7, LIPID, TSH, CMP, URIC #### [facility] [address] [place] [address] Dr. Wally Zapien TSHon 09-24-2022 TSH 1.535 uIU/mL Normal 0.358-3.740 [facility] Comment on above: Performed By: #### U RCX #### [facility] [address] [place] [address] Dr. Wally Zapien UA RANDOM W/MICROSCOPICon BACTERIA NONE SEEN Normal NONE SEEN [facility] Comment on above: Performed By: #### U RCX #### [facility] [address] [place] [address] Dr. Wally Zapien Bilirubin Ql (U) Negative Normal NEGATIVE [facility] Comment on above: Performed By: #### U RCX #### [facility] [address] [place] [address] Dr. Wally Zapien CAST NONE SEEN Normal NONE SEEN [facility] Comment on above: Performed By: #### U RCX #### [facility] [address] [place] [address] Dr. Wally aZpien Clarity (U) CLEAR Normal CLEAR [facility] Comment on above: Performed By: #### U RCX #### [facility] [address] [place] [address] Dr. Wally Zapien Color (U) YELLOW Normal YELLOW [facility] Comment on above: Performed By: #### U RCX #### [facility] [address] [place] [address] Dr. Wally Zapien Crystals LM Nom (Urine sed) NONE SEEN Normal NONE SEEN [facility] Comment on above: Performed By: #### U RCX #### [facility] [address] [place] [address] Dr. Wally Zapien Epithelial cells LM Ql (Urine sed) FEW Abnormal NONE SEEN /RARE [facility] Comment on above: Performed By: #### U RCX #### [facility] [address] [place] [address] Dr. Wally Zapien Glucose Ql (U) Negative Normal NEGATIVE [facility] Comment on above: Performed By: #### U RCX #### [facility] [address] [place] [address] Dr. Wally Zapien Hemoglobin Ql (U) TRACE-INTACT Abnormal NEGATIVE [facility] Comment on above: Performed By: #### U RCX #### [facility] [address] [place] [address] Dr. Wally Zapien Ketones Ql (U) Negative Normal NEGATIVE [facility] Comment on above: Performed By: #### U RCX #### [facility] [address] [address] [address] Wally Zapien LEUKOCYTES Negative Normal NEGATIVE [facility] Comment on above: Performed By: #### U RCX #### [facility] [address] [place] [address] Dr. Wally Zapien MUCOUS LARGE Abnormal NONE SEEN [facility] Comment on above: Performed By: #### U RCX #### [facility] [address] [place] [address] Dr. Wally Zapien Nitrite Ql (U) Negative Normal NEGATIVE [facility] Comment on above: Performed By: #### U RCX #### [facility] [address] [place] [address] Dr. Wally Zapien pH (U) 6.5 [pH] Normal 5-9 [facility] Comment on above: Performed By: #### U RCX #### [facility] [address] [place] [address] Dr. Wally Zapien RBC 2-5 Abnormal 0-2 [facility] Comment on above: Performed By: #### U RCX #### [facility] [address] [place] [address] Dr. Wally Zapien SPEC GRAVITY 1.025 Normal 1.005-<=1.025 [facility] Comment on above: Performed By: #### U RCX #### [facility] [address] [place] [address] Dr. Wally Zapien UA PROTEIN TRACE Normal NEGATIVE/ TRACE [facility] Comment on above: Performed By: #### U RCX #### [facility] [address] [address] [address] Wally Zapien Urobilinogen Qn (U) 1.0 {Suma'U}/dL Normal 0.2 - 1. 0 [facility] Comment on above: Performed By: #### U RCX #### [facility] [address] [place] [address] Dr. Wally Zapien WBC 0-2 Abnormal NONE SEEN [facility] Comment on above: Performed By: #### U RCX #### [facility] [address] [place] [address] Dr. Wally Zapien URIC ACID SERUMon 09-24-2022 Urate [Mass/Vol] 3.7 mg/dL Normal 3.5-7.2 [facility] Comment on above: Performed By: #### B INVESTIGATOR INTERNAL REVENUE, T7, LIPID, TSH, CMP, URIC #### [facility] [address] [place] [address] Dr. Wally Zapien VITAMIN D 25 OHon 09-24-2022 VIT D 25-OH 42.6 ng/mL Normal [facility] Comment on above: Performed By: #### U RCX #### [facility] [address] [place] [address] Dr. Wally Zapien VIT D RANGES SEE BELOW Normal [facility] Comment on above: Result Comment: <20 ng/mL Vit D deficient 20 - <30 ng/mL Vit D insufficient 30 - 100 ng/mL Vit D sufficient >100 ng/mL Potential Toxicity Performed By: #### U RCX #### [facility] [address] [place] [address] Dr. Wally Zapien ED Note-Physicianon 09-19-19 23 ED Note-Physician [id number] #1.00CD:127 Normal [facility] Lab Reportson 09-19-2022 Lab Reports [id number] 8#1.00CD:127 Normal [facility] RAD - CT Reporton 09-19-2022 RAD - CT Report [id number] 3#1.00CD:127 Normal [facility] CBC AUTO DIFFon 09-18-2022 BASO # 0.0 103/ul Normal 0.0-0.1 [facility] Comment on above: Performed By: #### C BC #### [facility] [address] [place], [place] [address] Dr. Wally Zapien Basophils/100 WBC (Bld) 0.7 % Normal 0.2-2.0 [facility] Comment on above: Performed By: #### C BC #### [facility] [address] [place] [address] Dr. Wally Zapien EO # 0.1 103/ul Normal 0.0-0.7 [facility] Comment on above: Performed By: #### C BC #### [facility] [address] [place] [address] Dr. Wally Zapien Eosinophils/100 WBC (Bld) 2.8 % Normal 0.9-7.0 [facility] Comment on above: Performed By: #### C BC #### [facility] [address] [place] [address] Dr. Wally Zapien Erythrocyte distribution width (RBC) [Ratio] 12.7 % Normal 11.0-15.0 [facility] Comment on above: Performed By: #### C BC #### [facility] [address] [place] [address] Dr. Wally Zapien Hematocrit (Bld) [Volume fraction] 44.1 % Normal 42.0-54.0 [facility] Comment on above: Performed By: #### C BC #### [facility] [address] [place] [address] Dr. Wally Zapien Hemoglobin (Bld) [Mass/Vol] 15.3 g/dL Normal 14.0-18.0 [facility] Comment on above: Performed By: #### C BC #### [facility] [address] [place] [address] Dr. Wally Zapien IG # 0.01 10e3/ul Normal 0.00-0.03 [facility] Comment on above: Performed By: #### C BC #### [facility] [address] [place] [address] Dr. Wally Zapien IG % 0.2 % Normal 0.0-0.5 [facility] Comment on above: Performed By: #### C BC #### [facility] [address] [place] [address] Dr. Wally Zapien LYMPH # 1.8 103/ul Normal 1.2-3.8 [facility] Comment on above: Performed By: #### C BC #### [facility] [address] [place] [address] Dr. Wally Zapien Lymphocytes/100 WBC (Bld) 43.0 % Normal 20.5-60.0 [facility] Comment on above: Performed By: #### C BC #### [facility] [address] [place] [address] Dr. Wally Zapien MANUAL DIFF REQ NO Normal [facility] Comment on above: Performed By: #### C BC #### [facility] [address] [place] [address] Dr. Wally Zapien MCH (RBC) [Entitic mass] 32.1 pg Normal 25.9-34.0 [facility] Comment on above: Performed By: #### C BC #### [facility] [address] [place] [address] Dr. Wally Zapien MCHC (RBC) [Mass/Vol] 34.7 g/dL Normal 29.9-35.2 [facility] Comment on above: Performed By: #### C BC #### [facility] [address] [place] [address] Dr. Wally Zapien MCV (RBC) [Entitic vol] 92.5 fL Normal 80.0-94.0 [facility] Comment on above: Performed By: #### C BC #### [facility] [address] [place] [address] Dr. Wally Zapien MONO # 0.4 103/ul Normal 0.3-0.8 [facility] Comment on above: Performed By: #### C BC #### [facility] [address] [place] [address] Dr. Wally Zapien Monocytes/100 WBC (Bld) 9.2 % Normal 1.7-12.0 [facility] Comment on above: Performed By: #### C BC #### [facility] [address] [place] [address] Dr. Wally Zapien NEUT # 1.9 103/ul Normal 1.4-6.5 [facility] Comment on above: Performed By: #### C BC #### [facility] [address] [address] [address] Wally Zapien Neutrophils/100 WBC (Bld) 44.1 % Normal 43.0-75.0 [facility] Comment on above: Performed By: #### C BC #### [facility] [address] [address] [address] Wally Zapien Platelet mean volume (Bld) [Entitic vol] 10.4 fL Normal 9.5-13.5 [facility] Comment on above: Performed By: #### C BC #### [facility] [address] [place] [address] Dr. Wally Zapien PLT 152 103/ul Normal 150-450 [facility] Comment on above: Performed By: #### C BC #### [facility] [address] [place] [address] Dr. Wally Zapien RBC 4.77 106/ul Normal 4.70-6.10 [facility] Comment on above: Performed By: #### C BC #### [facility] [address] [place] [address] Dr. Wally Zapien WBC 4.2 103/ul Normal 4.0-11.0 [facility] Comment on above: Performed By: #### C BC #### [facility] [address] [place] [address] ABD/PELVIS WO CONon [...] MAYRA LOPEZ Date: 2022-09-18 13:40 Normal [facility] ER URINE PROFILEon 3 Bilirubin Ql (U) SMALL Abnormal NEGATIVE [facility] Comment on above: Performed By: #### Olinda WILLIS ICRO #### [facility] [address] [place] [address] Dr. Wally Zapien Clarity (U) SL CLOUDY Abnormal CLEAR [facility] Comment on above: Performed By: #### Olinda WILLIS UMICRO #### [facility] [address] [address] [address] Wally Zapien Color (U) RED Abnormal YELLOW [facility] Comment on above: Performed By: #### Olinda WILLIS, UMICRO #### [facility] [address] [address] [address] Wally Zapien ERUAHD A micrscopic examination will be performed if indicated. Normal [facility] Comment on above: Performed By: #### E LAZARO UMICRO #### [facility] [address] [place] [address] Dr. Wally Zapien Glucose Ql (U) Negative Normal NEGATIVE [facility] Comment on above: Performed By: #### E LAZARO UMICRO #### [facility] [address] [place] [address] Dr. Wally Zapien Hemoglobin Ql (U) LARGE Abnormal NEGATIVE [facility] Comment on above: Performed By: #### BIMAL PADRONRO #### [facility] [address] [place] [address] Dr. Wally Zapien Ketones Ql (U) TRACE Abnormal NEGATIVE [facility] Comment on above: Performed By: #### KERRI PADRON #### [facility] [address] [place] [address] Dr. Wally Zapien LEUKOCYTES TRACE Abnormal NEGATIVE [facility] Comment on above: Performed By: #### KERRI PADRON #### [facility] [address] [place] [address] Dr. Wally Zapien Nitrite Ql (U) Positive Abnormal NEGATIVE [facility] Comment on above: Performed By: #### KERRI PADRON #### [facility] [address] [place] [address] Dr. Wally Zapien pH (U) 5.5 [pH] Normal 5-9 [facility] Comment on above: Performed By: #### KERRI PADRON #### [facility] [address] [place] [address] Dr. Wally Zapien Protein (U) [Mass/Vol] 100 mg/dL Abnormal NEGATIVE/ TRACE [facility] Comment on above: Performed By: #### KERRI PADRON #### [facility] [address] [place] [address] Dr. Wally Zapien SPEC GRAVITY 1.025 Normal 1.005-<=1.025 [facility] Comment on above: Performed By: #### KERRI PADRON #### [facility] [address] [place] [address] Dr. Wally Zapien UR MICRO IND INDICATED Normal [facility] Comment on above: Performed By: #### KERRI PADRON #### [facility] [address] [place] [address] Dr. Wally Zapien Urobilinogen Qn (U) 1.0 {Suma'U}/dL Normal 0.2 - 1. 0 [facility] Comment on above: Performed By: #### E KERRI WILLIS #### [facility] [address] [address] [address] Wally Zapien PROF CHEM 8 (BAS METB)on Anion gap [Moles/Vol] 10.5 mmol/L Normal [facility] Comment on above: Performed By: #### U RCX #### [facility] [address] [address] [address] Wally Zapien Calcium [Mass/Vol] 8.6 mg/dL Normal 8.5-10.1 [facility] Comment on above: Performed By: #### U RCX #### [facility] [address] [place] [address] Dr. Wally Zapien Chloride [Moles/Vol] 105 mmol/L Normal 98-107 [facility] Comment on above: Performed By: #### U RCX #### [facility] [address] [place] [address] Dr. Wally Zapien CO2 [Moles/Vol] 28.8 mmol/L Normal 21.0-32.0 [facility] Comment on above: Performed By: #### U RCX #### [facility] [address] [place] [address] Dr. Wally Zapien Creatinine [Mass/Vol] 0.85 mg/dL Normal 0.70-1.30 [facility] Comment on above: Performed By: #### U RCX #### [facility] [address] [place] [address] Dr. Wally Zapien EGFR-AF DUTCH >60 Normal >=60 [facility] Comment on above: Performed By: #### U RCX #### [facility] [address] [address] [address] Wally Zapien EGFR-NON AF DUTCH >60 Normal >=60 [facility] Comment on above: Performed By: #### U RCX #### [facility] [address] [place] [address] Dr. Wally Zapien Glucose [Mass/Vol] 112 mg/dL Critically high 74-106 [facility] Comment on above: Performed By: #### U RCX #### [facility] [address] [place] [address] Dr. Wally Zapien Potassium [Moles/Vol] 4.3 mmol/L Normal 3.5-5.1 [facility] Comment on above: Performed By: #### U RCX #### [facility] [address] [place] [address] Dr. Wally Zapien Sodium [Moles/Vol] 140 mmol/L Normal 136-145 [facility] Comment on above: Performed By: #### U RCX #### [facility] [address] [place] [address] Dr. Wally Zapien Urea nitrogen [Mass/Vol] 23.0 mg/dL Critically high 7.0-18.0 [facility] Comment on above: Performed By: #### U RCX #### [facility] [address] [place] [address] Dr. Wally Zapien Urea nitrogen/Creatinine [Mass ratio] 27.1 mg/mg Normal [facility] Comment on above: Performed By: #### U RCX #### [facility] [address] [place] [address] Dr. Wally Zapien URINE MICROSCOPIC ONLYon BACTERIA TRACE Abnormal NONE SEEN [facility] Comment on above: Performed By: #### Olinda WILLIS UMICRO #### [facility] [address] [place] [address] Dr. Wally Zapien Bacteria identified Cx Nom (U) NOT INDICATED Normal [facility] Comment on above: Performed By: #### Olinda WILLIS UMICRO #### [facility] [address] [place] [address] Dr. Wally Zapien CAST NONE SEEN Normal NONE SEEN [facility] Comment on above: Performed By: #### E LAZARO UMICRO #### [facility] [address] [place] [address] Dr. Wally Zapien Crystals LM Nom (Urine sed) NONE SEEN Normal NONE SEEN [facility] Comment on above: Performed By: #### E RUR, UMICRO #### [facility] [address] [address] [address] Wally Zapien Epithelial cells LM Ql (Urine sed) RARE Normal NONE SEEN /RARE [facility] Comment on above: Performed By: #### E RUR, UMICRO #### [facility] [address] [address] [address] Wally Zapien MUCOUS NONE SEEN Normal NONE SEEN [facility] Comment on above: Performed By: #### E RUR, UMICRO #### [facility] [address] [address] [address] Wally Zapien RBC (U) [#/Vol] /uL Abnormal 0-2 [facility] Comment on above: Performed By: #### E RUR, UMICRO #### [facility] [address] [address] [address] Wally Zapien WBC 2-5 Abnormal NONE SEEN [facility] Comment on above: Performed By: #### E RUR, UMICRO #### [facility] [address] [address] [address] Wally Zapien Patient Educationon 04-16-20 Patient [...] You could (more content not included)... Normal [facility] Urology Office/Clinic Noteon 04-16-2022 Urology Office/Clinic Note [...] When Contact Information JAYDON COE, Reno Maciel, URElizabeth In 1 year [facility] [place] [address] [facility] (1) Additional Instructions: Patient Education Benign Prostatic [...] vaccine 07/06 (more content not included)... Normal [facility] Comment on above: Result Comment: Elec tronically [...] Urnls Dip Stick Auto w/o Microscopy POC 45080 Your Care Team Attending Physician - Reno [...] Cheng When: Where: [facility] [address] [place] [address] [employer] (1) Medications What How Much When Instructions [...] Urnls Dip Stick Auto w/o Microscopy POC 10327 (10/16/2021) Bilirubin Urine Dipstick - Negative Blood Urine Dipstick - Negative Glucose Urine Dipstick - Negative Ketones Urine Dipstick - Negative Leukocytes Urine Dipstick - Trace Nitrite Urine Dipstick - Negative Protein Urine Dipstick - 2+ (100 mg/dl) Specific [place] Urine Dipstick - 1.025 Urine Appearance Urine [...] urine fr (more content not included)... Normal [facility] Patient Educationon 10-16-19 Patient Education Urology Urethral [...] Follow these instructions at home: ? Take kglp-qmy-djighxi and prescription medicines only as told by [...] 09/07/2016 Document Revised: 03/25/2019 Document Reviewed: 03/25/2019 [employer] Patient Education ? 2019 [employer]. [facility] Urology Office/Clinic Noteon 10-16-2021 Urology Office/Clinic Note [...] Reno Maciel, URL [facility] [address] [place] [address] Business (1) Additional Instructions: 6 month follow up Patient Education Urethral Stricture I, Katherine Nolacso , personally scribed for Dr. Valentin on [...] disease: Mother. (more content not included)... Normal [facility] Comment on above: Result Comment: Elec tronically Signed By: Reno VALENTIN MD\.br\Date and Time Signed: 10/16/21 14:57 EST\.br\Electronically Co-Signed By: Katherine Nolasco\.br\Date and Time Co-Signed: 10/16/21 14:55 EST Vital Signs Date Time Vital Sign Value Performing Clinician Facility 07-17-2023 15:40-0500 Body height 160.02 cm Rocio Chan Other [facility] Other 07-17-2023 15:40-0500 Body mass index (BMI) [Ratio] 37.55 kg/m2 Rocio Chan Other [facility] Other 07-17-2023 15:40-0500 Body temperature 98.2 [degF] Rocio Chan Other [facility] Other 07-17-2023 15:40-0500 Body weight 96.16 kg Rocio Chan Other [facility] Other 07-17-2023 15:40-0500 Diastolic blood pressure 76 mm[Hg] Rocio Chan Other [facility] Other 07-17-2023 15:40-0500 Respiratory rate 18 /min Rocio Chan Other [facility] Other 07-17-2023 15:40-0500 SaO2% (BldA) [Mass fraction] 96 % Rocio Chan Other [facility] Other 07-17-2023 15:40-0500 Systolic blood pressure 134 mm[Hg] Rocio Chan Other [place] [facility] Other 09-26-2022 13:26-0500 Blood Pressure Location Renonoe VALENTIN [facility] 09-26-2022 13:26-0500 Diastolic blood pressure 74 mm[Hg] Reno VALENTIN [facility] 09-26-2022 13:26-0500 Heart rate 52 /min Reno VALENTIN [facility] 09-26-2022 13:26-0500 Systolic blood pressure 173 mm[Hg] Reno VALENTIN [facility] 04-16-2022 13:49-0400 Diastolic blood pressure 87 mm[Hg] Reno VALENTIN [facility] 04-16-2022 13:49-0400 Mean blood pressure 110 mm[Hg] Reno VALENTIN [facility] 04-16-2022 13:49-0400 Systolic blood pressure 156 mm[Hg] Reno VALENTIN [facility] 04-16-2022 13:37-0400 Blood Pressure Location [facility] VALENTIN [facility] 04-16-2022 13:37-0400 Diastolic blood pressure 102 mm[Hg] Reno VALENTIN [facility] 04-16-2022 13:37-0400 Heart rate 81 /min Reno VALENTIN [facility] 04-16-2022 13:37-0400 Respiratory rate 16 /min Reno VALENTIN [facility] 04-16-2022 13:37-0400 Systolic blood pressure 191 mm[Hg] Reno VALENTIN [facility] Encounters Encounter Date Encounter Type Care Provider Facility Start: 10-28-2023 End: 10-29-2023 ambulatory Fabrice Dias MD Facility: [place] Start: 09-30-2023 End: 10-01-2023 ambulatory Fabrice Dias MD Facility: [place] Start: 2023 End: 09-24-2023 [facility] Start: 07-17-2023 End: 07-17-2023 ambulatory Rocio Chan Other [facility] Other Start: 07-17-2023 Office outpatient visit 15 minutes Rocio Chan [facility] Start: 05-27-2023 End: 05-28-2023 ambulatory Fabrice Dias MD Facility: [place] Start: 04-19-2023 ambulatory MD Reno VALENTIN Fac ility:[facility] [place] Start: 01-23-[address] ELIANA BA . Facili ty:[facility] Start: 01-16-2023 ambulatory MD Reno VALENTIN Fac ility:[facility] Start: 09-26-2022 End: 09-27-2022 ambulatory MD Reno VALENTIN Facility:[facility] Start: 09-26-2022 End: 09-26-2022 Patient encounter procedure Reno VALENTIN [facility] Start: 09-24-2022 End: 09-25-[address] ELIANA BA . Facility:[facility] Start: 09-18-2022 End: 09-18-2022 ambulatory KARLOS MELTON . Facility: Start: 04-16-2022 End: 04-17-2022 ambulatory MD Reno VALENTIN Facility:[facility] Start: 04-16-2022 End: 04-16-2022 Patient encounter procedure Reno VALENTIN [facility] Start: 10-16-2021 ambulatory MD Reno Guadalupe ity:BINH Dan Start: 10-16-2021 End: 10-17-2021 ambulatory MD Reno VALENTIN Facility:[facility] Procedures Date Procedure Procedure Detail Performing Clinician Start: 09-24-2022 PSA screening KARLOS ALVAREZ . Comment on above: Performed By: #### U RCX #### [facility] [address] [place] [address] Dr. Wally Zapien Start: 03-17-2019 Cystoscope, device ( physical object) Reno VALENTIN Cardiac catheterization Patr icedgardo VALENTIN Coronary artery bypass graft Reno VALENTIN Extraction of cataract Kathy VALENTIN Hydrocelectomy Reno MEYER S Inguinal herniorrhaphy Patkarolyn VALENTIN Large intestine excision Pat noe VALENTIN Prosthetic arthropla sty of the hip Reno VALENTIN Repair of musculoten dinous cuff of shoulder Reno VALENTIN Tonsillectomy and adenoidectomy Reno VALENTIN Immunizations Immunization Date Immunization Notes Care Provider Fa [facility] 05-24-2022 influenza virus vacc ine, unspecified formulation [facility] 04-20-2022 SARS-CoV-2 mRNA (vpncxgxxadr-emoi-bftknf e) vaccine [facility] 06-19-2021 SARS-CoV-2 (COVID-19 ) mRNA BNT-162b2 vax [facility] 06-01-2021 influenza virus vacc ine, unspecified formulation [facility] 05-23-2021 influenza virus vacc ine, unspecified formulation [facility] 11-10-2020 SARS-CoV-2 (COVID-19 ) mRNA BNT-162b2 vax [facility] 10-20-2020 SARS-CoV-2 (COVID-19 ) mRNA BNT-162b2 vax [facility] 08-04-2020 zoster vaccine recombinant [facility] 07-06-2020 SARS-CoV-2 (COVID-19 ) Ad26 vaccine, recombinant [facility] 06-24-2020 influenza virus vacc ine, unspecified formulation [facility] 06-03-2020 zoster vaccine recombinant [facility] 06-02-2020 SARS-CoV-2 (COVID-19 ) Ad26 vaccine, recombinant [facility] 05-26-2020 influenza virus vacc ine, unspecified formulation [facility] 05-29-2019 influenza virus vacc ine, unspecified formulation [facility] 06-17-2018 influenza virus vacc ine, unspecified formulation [facility] 05-14-2017 influenza virus vacc ine, unspecified formulation [facility] 05-14-2017 pneumococcal polysaccharide vaccine, 23 valent [facility] 05-17-2016 influenza virus vacc ine, unspecified formulation [facility] 05-17-2016 pneumococcal conjuga te vaccine, 13 valent [facility] 05-16-2015 influenza virus vacc ine, unspecified formulation [facility] Payers Date Payer Category Payer Private Health Insurance 1959 Private Health Insurance [id number] 1940 Unknown [id number] 2.16.8 [id number] 1942 Unknown [id number] 2.16.8 [id number] 1942 Unknown [id number] 2.16.8 [id number] 1942 Unknown [id number] 2.16.8 [id number] 1942 Unknown [id number] 2.16.8 [id number] 1942 Unknown [id number] 2.16.84 [id number] 1942 Unknown [id number] 2.16.84 [id number] 1942 Unknown [id number] 2.16.84 [id number] 1942 Unknown [id number] 2.16. [id number] 1942 Unknown [id number] 2.16. [id number] 1942 Unknown [id number] 2.16. [id number] 1942 Unknown [id number] 2.16. [id number] Social History Date Type Detail Facility Start: 04-16-2022 End: 09-26-2022 Tobacco smoking status Never smoked tobacco (finding) [facility] Tobacco smoking status Never [facility] Sex Assigned At Male [facility] Functional Status Date Assessment Result Facility 09-26-2022 Functional Status N/A [facility] 04-16-2022 Functional Status N/A [facility] 07-17-2023 Note Date & Type [...] no improvement in 2 to 3 days [facility] Other Hospital Discharge instructions 09-26-2022 Note Date [...] or mouth. Supplies needed: Soap. Alcohol-based hand applications programmer analyst. Standard cleaning products. Disinfectants, such as bleach. [...] water are not available, use alcohol-based hand applications programmer analyst. Avoid touching your face, mouth, nose, or [...] water. Air-dry your dishes or use a social media senior associate. Do not share dishes or eating utensils. [...] certain germs and not others. Read the swimming pool maintenance's instructions or read online resources to determine [...] minutes after each use, or according to swimming pool maintenance's instructions. Wash reusable cleaning cloths and sanitize [...] water are not available, use alcohol-based hand applications programmer analyst. In general: Stay home except to get [...] Professionals in Infection Control and Epidemiology: [email or web address] [email or web address]- setting/home/ Summary It is important to know [...] 05/21/2009 Document Revised: 12/08/2019 Document Reviewed: 11/06/2019 [employer] Patient Education 2020 [employer]. Follow Up Care 09/20/2022 14:58:28 With:JAYDON COE, [place] Maciel, URL Address: [facility] [address], [place] [address]- When:3 months Comments:UTI F/U [facility] Discharge instructions 04-16-2022 Note Date & [...] urethra. Follow these instructions at home: Take upoi-tcd-exlqnti and prescription medicines only as told by [...] 08/12/2006 Document Revised: 07/07/2019 Document Reviewed: 09/16/2017 [employer] Patient Education 2020 [employer]. 04/16/2022 14:44:17 Calorie Counting for Weight Loss [...] 08/12/2006 Document Revised: 05/01/2019 Document Reviewed: 07/12/2017 [employer] Patient Education 2020 [employer] Follow Up Care 10/16/2021 15:00:57 With:JAYDON COE, [place] Maciel, URL Address: [address] [place] [address] [place] [address]- Business (1) When:Within 1 Year(s) [facility] Clinical Note 10-06-2020 Note Date & Type Note Facility 10-06-2020 Note Patient Outreach ([place] [facility]) PRASHANTH RICHARD ([id number]) 1940 M Date Time Provider Department 10/06/20 ROSSYS, JOLYNN WHITFIELD During your visit today, we recorded the following information about you: Allergies As of Date: 10/06/2020 (No Known Allergies) Date Reviewed: 11/27/2018 Reviewed by: Huyen Barraza - Fully Assessed Order(s):SARS-COVID VACCINE 1ST DOSE APPT [[id number]] Order #: [id number] FUTURE Prescriptions as of 10/06/2020 Sig: RHOPRESSA [...] arteriosclerosis [I25.10] Letter Text Encounter Status:Closed by KAREN VOGELUSER on 10/10/20 [facility] Evaluation + Plan note Note Date & Type Note Facility Evaluation + Plan note Future Appointments Appointment Date:04/19/2023 09:30:00 AM Scheduled Provider:Reno VALENTIN MD Location:[facility] Appointment Type:URO Office Visit [facility] [employer] Evaluation + Plan note Note Date & Type Note Facility Evaluation + Plan note Future Appointments Appointment Date:01/16/2023 09:45:00 AM Scheduled Provider:Reno VALENTIN MD Location:[facility] Appointment Type:URO Office Visit Appointment Date:04/19/2023 09:30:00 AM Scheduled Provider:Reno VALENTIN MD Location:[facility] Appointment Type:URO Office Visit [facility] History general Narrative - Reported Note Date [...] see above Hospitalization History back spasms 2022 [facility] Other Hospital course Narrative Note Date & Type Note Facility Hospital course Narrative No data available for this section [facility] [employer] Progress note Note Date & Type Note Facility Progress note No data available for this section [facility] [employer] Summary Purpose Family History No Family History [...] section and content) DATE CREATED AUTHOR 09/19/2021 [facility] DATE CREATED AUTHOR AUTHOR'S ORGANIZ ATION 09/28/2022 [facility] DATE CREATED AUTHOR AUTHOR'S ORGANIZ ATION 02/01/2023 [facility] DATE CREATED AUTHOR AUTHOR'S ORGANIZ ATION 11/01/2023 [facility] Care Team (unrecognized sect ion and content) Personnel Name: Eliana Ba MD Address: [address] [place] [address]- Personnel Name: Eliana Ba MD Address: Address: [address] [place] [address]- REASON FOR VISIT (unrecogniz ed section and [...] BE BASED ON THE PRIMARY CLINICAL RECORDS. [facility]. provides no warranty or guarantee of the accuracy or completeness of information in this document.
--- NOTE | 2023-11-06 09:54 | P.CN_ITS ---
Consult Note: HPI Data of Consult Patient: known to practice within the last 3 years Consult date: 09/23/23 Requesting Physician: Ambika Hill NP Primary Care Provider: Bayron Ba MD Consult Narrative Reason for consult: Low back pain Narrative: 83yom who presents for assessment. Worsening axial low back pain, worse with standing. Lumbar XR shows significant facet arthropathy in lower lumbar spine. Underwent physical therapy within past 3 months, continues in >6 weeks of provider directed home exercises, with no benefit. Utilizes mobic, with minimal benefit. Denies adverse med side effects. Patient recently underwent bilateral L4-5 L5-S1 facet medial branch block #1 and #2 with 80% improvement in pain and functional ability hours after and days following the injection. Patient would like to proceed with thermal RFA. cc:: CC: Ambika Hill NP Review of Systems ROS Status of ROS 10 or more systems reviewed and unremark able except as noted in history and below Musculoskeletal Reports: back pain PFSH PFSH Medical History Low back pain ?M54.50 - Low back pain, unspecified (ICD-10) Sleep apnea ?G47.30 - Sleep apnea, unspecified (ICD-10) High cholesterol ?E78.00 - Pure hypercholesterolemia, unspecified (ICD-10) Heart disease ?I51.9 - Heart disease, unspecified (ICD-10) Hypertension ?I10 - Essential (primary) hypertension (ICD-10) Glaucoma ?H40.9 - Unspecified glaucoma (ICD-10) Colon cancer ?C18.9 - Malignant neoplasm of colon, unspecified (ICD-10) Inability to walk ?R26.2 - Difficulty in walking, not elsewhere classified (ICD-10) Chronic back pain ?M54.9 - Dorsalgia, unspecified (ICD-10) ?G89.29 - Other chronic pain (ICD-10) Strain of lumbar region ?S39.012A - Strain of muscle, fascia and tendon of lower back, initial encounter (ICD-10) Surgical History Detached retina, left ?H33.22 - Serous retinal detachment, left eye (ICD-10) Cataracts, both eyes ?H26.9 - Unspecified cataract (ICD-10) History of colectomy ?Z90.49 - Acquired absence of other specified parts of digestive tract (ICD- 10) 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 Smoking status: Never smoker Non-prescribed substance use: denies use Previous occupational history: retired Highest level of school completed/degree received: Bachelor's degree Are you now , , , , never or living with a partner: Little interest or pleasure in doing things: not at all Feeling down, depressed, or hopeless: not at all Feel stressed/tense/nervous/anxious/difficulty sleeping: not at all Do you think of yourself as: straight/heterosexual Gender Identity: male Meds Home Medications and Allergies Home Medications Medication Instructions Recorded Confirmed Type aspirin 81 mg tablet,delayed 81 mg PO DAILY 05/20/23 10/28/23 History release atorvastatin 40 mg tablet 40 mg PO DAILY 05/20/23 10/28/23 History dorzolamide 22.3 mg-timolol 6.8 1 drp ophthalmic (eye) BID 05/20/23 10/28/23 History mg/mL eye drops icosapent ethyl 1 gram capsule 2 g PO BID 05/20/23 10/28/23 History latanoprost 0.005 % eye drops 1 drp ophthalmic (eye) .[facility] 05/20/23 10/28/23 History lisinopril 10 mg tablet 10 mg PO DAILY 05/20/23 10/28/23 History meloxicam 15 mg tablet 15 mg PO DAILY 05/20/23 10/28/23 History metoprolol tartrate 25 mg tablet 12.5 mg PO BID 05/20/23 10/28/23 History netarsudil 0.02 % eye drops 1 drp ophthalmic (eye) DAILY 05/20/23 10/28/23 History (Rhopressa) tamsulosin 0.4 mg capsule 0.4 mg PO BID 05/20/23 10/28/23 History Allergies Allergy/AdvReac Type Severity Reaction Status Date / Time No Known Drug Allergies Allergy Verified 10/28/23 11:22 Exam Narrative Exam Narrative: Psych-alert and oriented x 3. Attentive and appropriate, constitutionally normal, displays normal mood and affect per situation.? There are no obvious deficits in memory, reasoning, or intellect.? Skin-no obvious rashes, bruising, erythema noted to the patient's area of pain. Extremities- extremities are warm with minimal edema and palpable pulses. Lumbar-no significant tenderness to palpation noted in the lumbar spine and paraspinal musculature.? Pain is elicited with extension, and lateral rotation of the lumbar spine. Range of motion is slightly diminished with these motions due to pain. Facet loading maneuvers are positive bilaterally and do appear to be concordant with the patient's normal complaints of pain.? Coordination remains intact.? Gait remains non-antalgic. Constitutional Documenting provider has reviewed patient's vital signs: yes Common normals: no apparent distress, oriented x3, healthy appearing, alert and well nourished General appearance: cooperative HENMT Common normals: normocephalic, hearing grossly normal bilaterally and moist oral mucous membranes Head and scalp: normocephalic Eye Common normals: PERRL Pupil: PERRL Neck & C-Spine Common normals: full ROM General: normal visual inspection Chest Common normals: inspection of chest normal Respiratory Common normals: normal respiratory effort, no retractions and no use of accessory muscles Neuro Common normals: oriented x3, CN's II-XII intact bilaterally, moves all extremities, no focal motor deficits, no sensory deficits noted and deep tendon reflexes 2+ bilaterally Sensorium/orientation: alert Motor exam: strength 5/5 throughout and no movement abnormalities noted Psych Common normals: mental status grossly normal, thought process normal, cooperative, affect normal, speech normal and activity/motor behavior normal Speech: normal speech Thought process: normal thought process Assessment and Plan Assessment and Plan (1) Lumbar spondylosis: Assessment and Plan: The patient has had over 3 months of moderate to severe low back pain with functional impairment and inadequate response to conservative care including NSAIDS (unless there are contraindication such as concurrent blood thinners), multiple oral or topical pain medications, and home exercise program/physical therapy.? Patient has completed >6 weeks of guided home exercise program and/or formal physical therapy program without relief of their symptoms.? I have reviewed the imaging of the lumbar spine and no red flags were identified.? The imaging reveals radiographic findings consistent with lumbar facet arthropathy The Oswestry Disability Index was completed, and the patient scored a 33%.? We discussed the risks and benefits of the procedure with the patient, and we are NOT planning on using sedation as outlined in the guidelines from Medicare unless there is a documented reason that sedation would be strongly recommended.?? ?The procedure will be completed with fluoroscopic guidance.? Plan bilateral L4-5 L5-S1 thermal RFA under fluoroscopy with Dr Dias continue HEP as tolerated continue current medication regimen, tolerating well without side effects f/u 1 month after
== END 2023-11-06 09:20 | disposition home or self-care (01) ==
PROVIDERS: PCP Family Medicine; Visit Provider Nurse Practitioner
DX: M47.816 Spondylosis without myelopathy or radiculopathy, lumbar region (principal)
CPT/HCPCS: G0463

== ENCOUNTER 2023-11-18 08:30 | Day surgery (SDC) | payer MEDICARE, SELFPAY ==
--- OUTSIDE RECORDS SUMMARY | 2023-11-18 08:38 | XMS_ITS | CCD ---
Author Organization [facility] Care Team Providers Care Food Order Delivery Runner Name Role Phone Eliana Ba Primary Care Physician MD Reno VALENTIN Attending Unavailable MD Reno VALENTIN Attending Unavailable MD Reno VALENTIN Attending Unavailable MD Reno VALENTIN Attending Unavailable MD Reno VALENTIN Attending Unavailable GERONIMO ., KARLOS Admitting Unavailable GERONIMO ., KARLOS Consulting Unavailable GERONIMO ., KARLOS Attending Unavailable HOY ., DR MONROY Primary Care Unavailable Mayra [...] Allergy Irritation (qualifier value) [facility] Medications Current Medications Medication Drug Class(es) Dates [...] day(s), # 20 cap(s), Refills(s) 0, Pharmacy: [id number], 160, cm, 09/26/22 13:50:00 EST, Height/Length Dosing, [...] BID, # 180 cap(s), Refills(s) 3, Pharmacy: [place] [id number] [address] [facility], 160, cm, 10/16/21 14:26:00 EST, Height/Length Dosing, [...] 10-16-2021 Episodic Other aftercare (1 source) Other long-term (current) drug therapy; Translations: [OTH RETIREMENT CURRENT DRUG THERAPY] Onset: 09-20-2022 Episodic Other aftercare (1 source) manager terminal (current) use of aspirin; Translations: [RETIREMENT CURRENT USE OF ASPIRIN] Onset: 09-20-2022 Episodic [...] (COVID-19) RNA TERRIE+probe Ql (Unsp spec) Positive [employer] Other COVID/FLU RT-PCR Negative [employer] Other XR KNEE RT 3Von 01-23-2023 XR KNEE RT 3V EXAM: XR KNEE RT 3V HISTORY: Osteoarthritis of knee COMPARISON: None TECHNIQUE: 3 views FINDINGS: No acute fracture or dislocation. Moderate to severe degenerative changes. Unremarkable soft tissues. IMPRESSION: Moderate to severe degenerative changes. Electronically authenticated by: CALVIN BARNES Date: 2023-01-23 13:29 Normal [facility] Screenson 09-27-2022 Screens [id number] Normal [facility] Patient Educationon 09-26-19 23 Patient [...] Supplies needed: ? Soap. ? Alcohol-based hand inspector agricultural commodities. ? Standard cleaning products. ? Disinfectants, such [...] water are not available, use alcohol-based hand inspector agricultural commodities. ? Avoid touching your face, mouth, nose, [...] water. Air-dry your dishes or use a oil well shooter. ? Do not share dishes or eating [...] certain germs and not others. Read the occupational health nurse supervisor's instructions or read online resources to [...] toil (more content not included)... Normal [facility] Office/Clinic Noteon 09-26-2022 Urology Office/Clinic Note Chief Complaint pt here for f[facility]u from [facility] due to hematuria HPI Staff Pt is here for a hospital f/u from [facility] 09/18/[address] scan [...] infection today Pt was given Levofloxacin at [facility] and he could not tolerate [...] hematuria (R31.0: Gross hematuria) PT went to [facility] ER on 09/18/22 due to hematuria. [...] Within 3 months [facility] [address] [place] [address]- Additional Instructions: UTI F/U Patient Education Infection Prevention in the Home I, Merle Miranda, personally scribed for Dr. Valentin on 09/26/2022 14:16:39. . Documentation recorded by the scribe, Merle Miranda, accurately reflects the services(s) I performed and decisions made by me. Aut (more content not included)... Normal [facility] Comment on above: Result Comment: Elec tronically Signed By: Reno VALENTIN MD\.br\Date and Time Signed: 09/26/22 14:20 EST\.br\Electronically Co-Signed By: Merle Miranda\.br\Date and Time Co-Signed: 09/26/22 14:16 EST INSULINon 09-25-2022 Insulin 6.0 uIU/mL Normal 2.6-24.9 [facility] Comment on above: Performed By: #### I NSULIN #### [facility] [address] [address] [address] Wally Zapien BNPon 09-24-2022 Natriuretic peptide B (Bld) [Mass/Vol] 110.0 pg/mL Normal <=1,800.0 [facility] Comment on above: Performed By: #### U RCX #### [facility] [address] [address] [address] Wally Zapien CBC AUTO DIFFon 09-24-2022 BASO # 0.0 103/ul Normal 0.0-0.1 [facility] Comment on above: Performed By: #### C BC #### [facility] [address] [place] [address] Dr. Wally Zapien Basophils/100 WBC (Bld) 1.0 % Normal 0.2-2.0 [facility] Comment on above: Performed By: #### C BC #### [facility] [address] [place] [address] Dr. Wally Zapien EO # 0.2 103/ul Normal 0.0-0.7 [facility] Comment on above: Performed By: #### C BC #### [facility] [address] [place] [address] Dr. Wally Zapien Eosinophils/100 WBC (Bld) 4.2 % Normal 0.9-7.0 [facility] Comment on above: Performed By: #### C BC #### [facility] [address] [place] [address] Dr. Wally Zapien Erythrocyte distribution width (RBC) [Ratio] 12.5 % Normal 11.0-15.0 [facility] Comment on above: Performed By: #### C BC #### [facility] [address] [place] [address] Dr. Wally Zapien Hematocrit (Bld) [Volume fraction] 43.7 % Normal 42.0-54.0 [facility] Comment on above: Performed By: #### C BC #### [facility] [address] [place] [address] Dr. Wally Zapien Hemoglobin (Bld) [Mass/Vol] 15.4 g/dL Normal 14.0-18.0 [facility] Comment on above: Performed By: #### C BC #### [facility] [address] [place] [address] Dr. Wally Zapien IG # 0.02 10e3/ul Normal 0.00-0.03 [facility] Comment on above: Performed By: #### C BC #### [facility] [address] [place] [address] Dr. Wally Zapien IG % 0.5 % Normal 0.0-0.5 [facility] Comment on above: Performed By: #### C BC #### [facility] [address] [place] [address] Dr. Wally Zapien LYMPH # 1.7 103/ul Normal 1.2-3.8 [facility] Comment on above: Performed By: #### C BC #### [facility] [address] [place] [address] Dr. Wally Zapien Lymphocytes/100 WBC (Bld) 42.6 % Normal 20.5-60.0 [facility] Comment on above: Performed By: #### C BC #### [facility] [address] [place] [address] Dr. Wally Zapien MANUAL DIFF REQ NO Normal [facility] Comment on above: Performed By: #### C BC #### [facility] [address] [place] [address] Dr. Wally Zapien MCH (RBC) [Entitic mass] 31.6 pg Normal 25.9-34.0 [facility] Comment on above: Performed By: #### C BC #### [facility] [address] [place] [address] Dr. Wally Zapien MCHC (RBC) [Mass/Vol] 35.2 g/dL Normal 29.9-35.2 [facility] Comment on above: Performed By: #### C BC #### [facility] [address] [place] [address] Dr. Wally Zapien MCV (RBC) [Entitic vol] 89.5 fL Normal 80.0-94.0 [facility] Comment on above: Performed By: #### C BC #### [facility] [address] [place] [address] Dr. Wally Zapien MONO # 0.4 103/ul Normal 0.3-0.8 [facility] Comment on above: Performed By: #### C BC #### [facility] [address] [place] [address] Dr. Wally Zapien Monocytes/100 WBC (Bld) 9.2 % Normal 1.7-12.0 [facility] Comment on above: Performed By: #### C BC #### [facility] [address] [place] [address] Dr. Wally Zapien NEUT # 1.7 103/ul Normal 1.4-6.5 [facility] Comment on above: Performed By: #### C BC #### [facility] [address] [place] [address] Dr. Wally Zapien Neutrophils/100 WBC (Bld) 42.5 % Critically low 43.0-75.0 [facility] Comment on above: Performed By: #### C BC #### [facility] [address] [place] [address] Dr. Wally Zapien Platelet mean volume (Bld) [Entitic vol] 9.9 fL Normal 9.5-13.5 [facility] Comment on above: Performed By: #### C BC #### [facility] [address] [place] [address] Dr. Wally Zapien PLT 149 103/ul Critically low 150-450 [facility] Comment on above: Performed By: #### C BC #### [facility] [address] [place] [address] Dr. Wally Zapien RBC 4.88 106/ul Normal 4.70-6.10 [facility] Comment on above: Performed By: #### C BC #### [facility] [address] [place] [address] Dr. Wally Zapien WBC 4.0 103/ul Normal 4.0-11.0 [facility] Comment on above: Performed By: #### C BC #### [facility] [address] [place] [address] Dr. Wally Zapien CULTURE URINEon 09-24-2022 CULTURE URINE Culture Observations: LIGHT GROWTH OF MIXED SKIN GENNA. NO POTENTIAL PATHOGENS SEEN. Normal [facility] Comment on above: Performed By: #### U RCX #### [facility] [address] [place] [address] Dr. Wally Zapien FREE THYROXINE INDEX T7on FTI 2.52 Normal 1.30-4.50 [facility] Comment on above: Performed By: #### U RCX #### [facility] [address] [place] [address] Dr. Wally Zapien T3U 36.0 % Normal 33.0-40.0 [facility] Comment on above: Performed By: #### U RCX #### [facility] [address] [address] [address] Wally Zapien T4 [Mass/Vol] 7.00 ug/dL Normal 4.50-12.10 [facility] Comment on above: Performed By: #### U RCX #### [facility] [address] [place] [address] Dr. Wally Zapien GLYCOHEMOGLOBIN A1Con 2022 ADA RECOMMENDATION SEE BELOW Normal [facility] Comment on above: Result Comment: ADA RECOMMENDED LIMIT 4.0 - 6.0 ADA THERAPEUTIC TARGET < 7.0 ACTION SUGGESTED > 7.0 Performed By: #### A 1C #### [facility] [address] [place] [address] Dr. Wally Zapien Glucose [Mass/Vol] 123 mg/dL Normal [facility] Comment on above: Performed By: #### A 1C #### [facility] [address] [place] [address] Dr. Wally Zpaien HbA1c (Bld) [Mass fraction] 5.9 % Normal 4.5-6.2 [facility] Comment on above: Performed By: #### A 1C #### [facility] [address] [place] [address] Dr. Wally Zapien LIPID PROFILEon 09-24-2022 CHOL-HDL RATIO NORM SEE BELOW Normal [facility] Comment on above: Result Comment: 3.3 - 4.4 LOW RISK 4.4 - 7.1 AVERAGE RISK 7.1 - 11.0 MODERATE RISK >11.0 HIGH RISK Performed By: #### U RCX #### [facility] [address] [place] [address] Dr. Wally Zapien Cholesterol [Mass/Vol] 117 mg/dL Normal <=200 [facility] Comment on above: Performed By: #### U RCX #### [facility] [address] [address] [address] Wally Zapien Cholesterol in HDL [Mass/Vol] 38 mg/dL Critically low 40-60 [facility] Comment on above: Performed By: #### U RCX #### [facility] [address] [address] [address] Wally Zapien Cholesterol in LDL [Mass/Vol] 32.6 mg/dL Normal [facility] Comment on above: Performed By: #### U RCX #### [facility] [address] [address] [address] Wally Zapien Cholesterol.total/Ch olesterol in HDL [Mass ratio] 3.1 {ratio} Normal [facility] Comment on above: Performed By: #### U RCX #### [facility] [address] [address] [address] Wally Zapien HDL NORMAL > or = 60 mg/dl - LOW CARDIOVASCULAR RISK <40 mg/dl - HIGH CARDIOVASCULAR RISK Normal [facility] Comment on above: Performed By: #### U RCX #### [facility] [address] [address] [address] Wally Zapien LDL CALC NORMAL SEE BELOW Normal [facility] Comment on above: Result Comment: <100 mg/dl OPTIMAL 100 - 129 mg/dl NEAR OR ABOVE OPTIMAL 130 - 159 mg/dl BORDERLINE HIGH 160 - 189 mg/dl HIGH >190 mg/dl VERY HIGH Performed By: #### U RCX #### [facility] [address] [place] [address] Dr. Wally Zapien Triglyceride [Mass/Vol] 232 mg/dL Critically high <=150 [facility] Comment on above: Performed By: #### U RCX #### [facility] [address] [address] [address] Wally Zapien VLDL CALC 46.4 mg/dL Normal [facility] Comment on above: Performed By: #### U RCX #### [facility] [address] [place] [address] Dr. Wally Zapien PROF 14(COMP METB)on 023 Albumin [Mass/Vol] 3.8 g/dL Normal 3.4-5.0 [facility] Comment on above: Performed By: #### B LEARNING STRATEGIST, T7, LIPID, TSH, CMP, URIC #### [facility] [address] [place] [address] Dr. Wally Zapien Albumin/Globulin [Mass ratio] 1.2 {ratio} Normal [facility] Comment on above: Performed By: #### B LEARNING STRATEGIST, T7, LIPID, TSH, CMP, URIC #### [facility] [address] [place] [address] Dr. Wally Zapien ALP [Catalytic activity/Vol] 80 U/L Normal 46-116 [facility] Comment on above: Performed By: #### B LEARNING STRATEGIST, T7, LIPID, TSH, CMP, URIC #### [facility] [address] [place] [address] Dr. Wally Zapien ALT [Catalytic activity/Vol] 34 U/L Normal 16-63 [facility] Comment on above: Performed By: #### B LEARNING STRATEGIST, T7, LIPID, TSH, CMP, URIC #### [facility] [address] [place] [address] Dr. Wally Zapien Anion gap [Moles/Vol] 11.3 mmol/L Normal [facility] Comment on above: Performed By: #### B LEARNING STRATEGIST, T7, LIPID, TSH, CMP, URIC #### [facility] [address] [place] [address] Dr. Wally Zapien AST [Catalytic activity/Vol] 24 U/L Normal 15-37 [facility] Comment on above: Performed By: #### B LEARNING STRATEGIST, T7, LIPID, TSH, CMP, URIC #### [facility] [address] [place] [address] Dr. Wally Zapien Bilirubin [Mass/Vol] 1.0 mg/dL Normal 0.2-1.0 [facility] Comment on above: Performed By: #### B LEARNING STRATEGIST, T7, LIPID, TSH, CMP, URIC #### [facility] [address] [place] [address] Dr. Wally Zapien Calcium [Mass/Vol] 8.5 mg/dL Normal 8.5-10.1 [facility] Comment on above: Performed By: #### B LEARNING STRATEGIST, T7, LIPID, TSH, CMP, URIC #### [facility] [address] [address] [address] Wally Zapien Chloride [Moles/Vol] 105 mmol/L Normal 98-107 [facility] Comment on above: Performed By: #### B LEARNING STRATEGIST, T7, LIPID, TSH, CMP, URIC #### [facility] [address] [address] [address] Wally Zapien CO2 [Moles/Vol] 28.6 mmol/L Normal 21.0-32.0 [facility] Comment on above: Performed By: #### B LEARNING STRATEGIST, T7, LIPID, TSH, CMP, URIC #### [facility] [address] [address] [address] Wally Zapien Creatinine [Mass/Vol] 0.74 mg/dL Normal 0.70-1.30 [facility] Comment on above: Performed By: #### B LEARNING STRATEGIST, T7, LIPID, TSH, CMP, URIC #### [facility] [address] [address] [address] Wally Zapien EGFR-AF TUVALUAN >60 Normal >=60 [facility] Comment on above: Performed By: #### B LEARNING STRATEGIST, T7, LIPID, TSH, CMP, URIC #### [facility] [address] [address] [address] Wally Zapien EGFR-NON AF TUVALUAN >60 Normal >=60 [facility] Comment on above: Performed By: #### B LEARNING STRATEGIST, T7, LIPID, TSH, CMP, URIC #### [facility] [address] [address] [address] Wally Zapien Globulin (S) [Mass/Vol] 3.2 g/dL Normal [facility] Comment on above: Performed By: #### B LEARNING STRATEGIST, T7, LIPID, TSH, CMP, URIC #### [facility] [address] [address] [address] Wally Zapien Glucose [Mass/Vol] 102 mg/dL Normal 74-106 [facility] Comment on above: Performed By: #### B LEARNING STRATEGIST, T7, LIPID, TSH, CMP, URIC #### [facility] [address] [place] [address] Dr. Wally Zapien Potassium [Moles/Vol] 3.9 mmol/L Normal 3.5-5.1 [facility] Comment on above: Performed By: #### B LEARNING STRATEGIST, T7, LIPID, TSH, CMP, URIC #### [facility] [address] [place] [address] Dr. Wally Zapien Protein [Mass/Vol] 7.0 g/dL Normal 6.4-8.2 [facility] Comment on above: Performed By: #### B LEARNING STRATEGIST, T7, LIPID, TSH, CMP, URIC #### [facility] [address] [place] [address] Dr. Wally Zapien Sodium [Moles/Vol] 141 mmol/L Normal 136-145 [facility] Comment on above: Performed By: #### B LEARNING STRATEGIST, T7, LIPID, TSH, CMP, URIC #### [facility] [address] [place] [address] Dr. Wally Zapien Urea nitrogen [Mass/Vol] 19.0 mg/dL Critically high 7.0-18.0 [facility] Comment on above: Performed By: #### B LEARNING STRATEGIST, T7, LIPID, TSH, CMP, URIC #### [facility] [address] [place] [address] Dr. Wally Zapien Urea nitrogen/Creatinine [Mass ratio] 25.7 mg/mg Normal [facility] Comment on above: Performed By: #### B LEARNING STRATEGIST, T7, LIPID, TSH, CMP, URIC #### [facility] [address] [place] [address] Dr. Wally Zapien TSHon 09-24-2022 TSH 1.535 uIU/mL Normal 0.358-3.740 [facility] Comment on above: Performed By: #### U RCX #### [facility] [address] [place] [address] Dr. Wally Zapien UA RANDOM W/MICROSCOPICon BACTERIA NONE SEEN Normal NONE SEEN [facility] Comment on above: Performed By: #### U RCX #### [facility] [address] [address] [address] Wally Zapien Bilirubin Ql (U) Negative Normal NEGATIVE [facility] Comment on above: Performed By: #### U RCX #### [facility] [address] [place] [address] Dr. Wally Zapien CAST NONE SEEN Normal NONE SEEN [facility] Comment on above: Performed By: #### U RCX #### [facility] [address] [address] [address] Wally Zapien Clarity (U) CLEAR Normal CLEAR [facility] Comment on above: Performed By: #### U RCX #### [facility] [address] [place] [address] Dr. Wally Zapien Color (U) YELLOW Normal YELLOW [facility] Comment on above: Performed By: #### U RCX #### [facility] [address] [address] [address] Wally Zapien Crystals LM Nom (Urine sed) NONE SEEN Normal NONE SEEN [facility] Comment on above: Performed By: #### U RCX #### [facility] [address] [place] [address] Dr. Wally Zapien Epithelial cells LM Ql (Urine sed) FEW Abnormal NONE SEEN /RARE [facility] Comment on above: Performed By: #### U RCX #### [facility] [address] [place] [address] Dr. Wally Zapien Glucose Ql (U) Negative Normal NEGATIVE [facility] Comment on above: Performed By: #### U RCX #### [facility] [address] [address] [address] Wally Zapien Hemoglobin Ql (U) TRACE-INTACT Abnormal NEGATIVE [facility] Comment on above: Performed By: #### U RCX #### [facility] [address] [place] [address] Dr. Wally Zapien Ketones Ql (U) Negative Normal NEGATIVE [facility] Comment on above: Performed By: #### U RCX #### [facility] [address] [address] [address] Wally Zapien LEUKOCYTES Negative Normal NEGATIVE [facility] Comment on above: Performed By: #### U RCX #### [facility] [address] [address] [address] Wally Zapien MUCOUS LARGE Abnormal NONE SEEN [facility] Comment on above: Performed By: #### U RCX #### [facility] [address] [address] [address] Wally Zapien Nitrite Ql (U) Negative Normal NEGATIVE [facility] Comment on above: Performed By: #### U RCX #### [facility] [address] [address] [address] Wally Zapien pH (U) 6.5 [pH] Normal 5-9 [facility] Comment on above: Performed By: #### U RCX #### [facility] [address] [place] [address] Dr. Wally Zapien RBC 2-5 Abnormal 0-2 [facility] Comment on above: Performed By: #### U RCX #### [facility] [address] [address] [address] Wally Zapien SPEC GRAVITY 1.025 Normal 1.005-<=1.025 [facility] Comment on above: Performed By: #### U RCX #### [facility] [address] [place] [address] Dr. Wally Zapien UA PROTEIN TRACE Normal NEGATIVE/ TRACE [facility] Comment on above: Performed By: #### U RCX #### [facility] [address] [address] [address] Wally Zapien Urobilinogen Qn (U) 1.0 {Smua'U}/dL Normal 0.2 - 1. 0 [facility] Comment on above: Performed By: #### U RCX #### [facility] [address] [address] [address] Wally Zapien WBC 0-2 Abnormal NONE SEEN [facility] Comment on above: Performed By: #### U RCX #### [facility] [address] [place] [address] Dr. Wally Zapien URIC ACID SERUMon 09-24-2022 Urate [Mass/Vol] 3.7 mg/dL Normal 3.5-7.2 [facility] Comment on above: Performed By: #### B LEARNING STRATEGIST, T7, LIPID, TSH, CMP, URIC #### [facility] [address] [place] [address] Dr. Wally Zapien VITAMIN D 25 OHon 09-24-2022 VIT D 25-OH 42.6 ng/mL Normal [facility] Comment on above: Performed By: #### U RCX #### [facility] [address] [place] [address] Dr. Wally Zapien VIT D RANGES SEE BELOW Normal [facility] Comment on above: Result Comment: <20 ng/mL Vit D deficient 20 - <30 ng/mL Vit D insufficient 30 - 100 ng/mL Vit D sufficient >100 ng/mL Potential Toxicity Performed By: #### U RCX #### [facility] [address] [place] [address] Dr. Wally Zapien ED Note-Physicianon 09-19-19 23 ED Note-Physician [id number] #[id number]:127 Normal [facility] Lab Reportson 09-19-2022 Lab Reports [id number]#[id number]:127 Normal [facility] RAD - CT Reporton 09-19-2022 RAD - CT Report [id number] 3#1.00CD:127 Normal [facility] CBC AUTO DIFFon 09-18-2022 BASO # 0.0 103/ul Normal 0.0-0.1 [facility] Comment on above: Performed By: #### C BC #### [facility] [address] [place] [address] Dr. Wally Zapien Basophils/100 WBC (Bld) 0.7 % Normal 0.2-2.0 [facility] Comment on above: Performed By: #### C BC #### [facility] [address] [place] [address] Dr. Wally Zapien EO # 0.1 103/ul Normal 0.0-0.7 [facility] Comment on above: Performed By: #### C BC #### [facility] [address] [place] [address] Dr. Wally Zapien Eosinophils/100 WBC (Bld) 2.8 % Normal 0.9-7.0 [facility] Comment on above: Performed By: #### C BC #### [facility] [address] [place] [address] Dr. Wally Zapien Erythrocyte distribution width (RBC) [Ratio] 12.7 % Normal 11.0-15.0 [facility] Comment on above: Performed By: #### C BC #### [facility] [address] [place] [address] Dr. Wally Zapien Hematocrit (Bld) [Volume fraction] 44.1 % Normal 42.0-54.0 [facility] Comment on above: Performed By: #### C BC #### [facility] [address] [place] [address] Dr. Wally Zapien Hemoglobin (Bld) [Mass/Vol] 15.3 g/dL Normal 14.0-18.0 [facility] Comment on above: Performed By: #### C BC #### [facility] [address] [place] [address] Dr. Wally Zapien IG # 0.01 10e3/ul Normal 0.00-0.03 [facility] Comment on above: Performed By: #### C BC #### [facility] [address] [place] [address] Dr. Wally Zapien IG % 0.2 % Normal 0.0-0.5 [facility] Comment on above: Performed By: #### C BC #### [facility] [address] [place] [address] Dr. Wally Zapien LYMPH # 1.8 103/ul Normal 1.2-3.8 [facility] Comment on above: Performed By: #### C BC #### [facility] [address] [place] [address] Dr. Wally Zapien Lymphocytes/100 WBC (Bld) 43.0 % Normal 20.5-60.0 [facility] Comment on above: Performed By: #### C BC #### [facility] [address] [place] [address] Dr. Wally Zapien MANUAL DIFF REQ NO Normal [facility] Comment on above: Performed By: #### C BC #### [facility] [address] [place] [address] Dr. Wally Zapien MCH (RBC) [Entitic mass] 32.1 pg Normal 25.9-34.0 [facility] Comment on above: Performed By: #### C BC #### [facility] [address] [place] [address] Dr. Wally Zapien MCHC (RBC) [Mass/Vol] 34.7 g/dL Normal 29.9-35.2 [facility] Comment on above: Performed By: #### C BC #### [facility] [address] [place] [address] Dr. Wally Zapien MCV (RBC) [Entitic vol] 92.5 fL Normal 80.0-94.0 [facility] Comment on above: Performed By: #### C BC #### [facility] [address] [place] [address] Dr. Wally Zapien MONO # 0.4 103/ul Normal 0.3-0.8 [facility] Comment on above: Performed By: #### C BC #### [facility] [address] [place] [address] Dr. Wally Zapien Monocytes/100 WBC (Bld) 9.2 % Normal 1.7-12.0 [facility] Comment on above: Performed By: #### C BC #### [facility] [address] [place] [address] Dr. Wally Zapien NEUT # 1.9 103/ul Normal 1.4-6.5 [facility] Comment on above: Performed By: #### C BC #### [facility] [address] [place] [address] Dr. Wally Zapien Neutrophils/100 WBC (Bld) 44.1 % Normal 43.0-75.0 [facility] Comment on above: Performed By: #### C BC #### [facility] [address] [address] [address] Wally Zapien Platelet mean volume (Bld) [Entitic vol] 10.4 fL Normal 9.5-13.5 [facility] Comment on above: Performed By: #### C BC #### [facility] [address] [address] [address] Wally Zapien PLT 152 103/ul Normal 150-450 [facility] Comment on above: Performed By: #### C BC #### [facility] [address] [address] [address] Wally Zapien RBC 4.77 106/ul Normal 4.70-6.10 [facility] Comment on above: Performed By: #### C BC #### [facility] [address] [address] [address] Wally Zapien WBC 4.2 103/ul Normal 4.0-11.0 [facility] Comment on above: Performed By: #### C BC #### [facility] [address] [place] [address] ABD/PELVIS WO CONon [...] MAYRA LOPEZ Date: 2022-09-18 13:40 Normal [facility] ER URINE PROFILEon 3 Bilirubin Ql (U) SMALL Abnormal NEGATIVE [facility] Comment on above: Performed By: #### KERRI PADRON #### [facility] [address] [place] [address] Dr. Wally Zapien Clarity (U) SL CLOUDY Abnormal CLEAR [facility] Comment on above: Performed By: #### KERRI PADRON #### [facility] [address] [place] [address] Dr. Wally Zapien Color (U) RED Abnormal YELLOW [facility] Comment on above: Performed By: #### KERRI PADRON #### [facility] [address] [place] [address] Dr. Wally GERBER A micrscopic examination will be performed if indicated. Normal [facility] Comment on above: Performed By: #### KERRI PADRON #### [facility] [address] [place] [address] Dr. Wally Zapien Glucose Ql (U) Negative Normal NEGATIVE [facility] Comment on above: Performed By: #### KERRI PADRON #### [facility] [address] [place] [address] Dr. Wally Zapien Hemoglobin Ql (U) LARGE Abnormal NEGATIVE [facility] Comment on above: Performed By: #### E LAZARO, UMICRO #### [facility] [address] [place] [address] Dr. Wally Zapien Ketones Ql (U) TRACE Abnormal NEGATIVE [facility] Comment on above: Performed By: #### E LAZARO, UMICRO #### [facility] [address] [place] [address] Dr. Wally Zapien LEUKOCYTES TRACE Abnormal NEGATIVE [facility] Comment on above: Performed By: #### E LAZARO, UMICRO #### [facility] [address] [place] [address] Dr. Wally Zapien Nitrite Ql (U) Positive Abnormal NEGATIVE [facility] Comment on above: Performed By: #### Olinda WILLIS UMICRO #### [facility] [address] [place] [address] Dr. Wally Zapien pH (U) 5.5 [pH] Normal 5-9 [facility] Comment on above: Performed By: #### Olinda WILLIS UMICRO #### [facility] [address] [place] [address] Dr. Wally Zapien Protein (U) [Mass/Vol] 100 mg/dL Abnormal NEGATIVE/ TRACE [facility] Comment on above: Performed By: #### Olinda WILLIS UMICRO #### [facility] [address] [place] [address] Dr. Wally Zapien SPEC GRAVITY 1.025 Normal 1.005-<=1.025 [facility] Comment on above: Performed By: #### Olinda WILLIS UMICRO #### [facility] [address] [place] [address] Dr. Wally Zapien UR MICRO IND INDICATED Normal [facility] Comment on above: Performed By: #### E LAZARO, UMICRO #### [facility] [address] [place] [address] Dr. Wally Zapien Urobilinogen Qn (U) 1.0 {Suma'U}/dL Normal 0.2 - 1. 0 [facility] Comment on above: Performed By: #### E KERRI WILLIS #### [facility] [address] [address] [address] Wally Zapien PROF CHEM 8 (BAS METB)on Anion gap [Moles/Vol] 10.5 mmol/L Normal [facility] Comment on above: Performed By: #### U RCX #### [facility] [address] [address] [address] Wally Zapien Calcium [Mass/Vol] 8.6 mg/dL Normal 8.5-10.1 [facility] Comment on above: Performed By: #### U RCX #### [facility] [address] [place] [address] Dr. Wally Zapien Chloride [Moles/Vol] 105 mmol/L Normal 98-107 [facility] Comment on above: Performed By: #### U RCX #### [facility] [address] [address] [address] Wally Zapien CO2 [Moles/Vol] 28.8 mmol/L Normal 21.0-32.0 [facility] Comment on above: Performed By: #### U RCX #### [facility] [address] [place] [address] Dr. Wally Zapien Creatinine [Mass/Vol] 0.85 mg/dL Normal 0.70-1.30 [facility] Comment on above: Performed By: #### U RCX #### [facility] [address] [place] [address] Dr. Wally Zapien EGFR-AF TUVALUAN >60 Normal >=60 [facility] Comment on above: Performed By: #### U RCX #### [facility] [address] [address] [address] Wally Zapien EGFR-NON AF TUVALUAN >60 Normal >=60 [facility] Comment on above: Performed By: #### U RCX #### [facility] [address] [place] [address] Dr. Wally Zapien Glucose [Mass/Vol] 112 mg/dL Critically high 74-106 [facility] Comment on above: Performed By: #### U RCX #### [facility] [address] [address] [address] Wally Zapien Potassium [Moles/Vol] 4.3 mmol/L Normal 3.5-5.1 [facility] Comment on above: Performed By: #### U RCX #### [facility] [address] [address] [address] Wally Zapien Sodium [Moles/Vol] 140 mmol/L Normal 136-145 [facility] Comment on above: Performed By: #### U RCX #### [facility] [address] [address] [address] Wally Zapien Urea nitrogen [Mass/Vol] 23.0 mg/dL Critically high 7.0-18.0 [facility] Comment on above: Performed By: #### U RCX #### [facility] [address] [address] [address] Wally Zapien Urea nitrogen/Creatinine [Mass ratio] 27.1 mg/mg Normal [facility] Comment on above: Performed By: #### U RCX #### [facility] [address] [place] [address] Dr. Wally Zapien URINE MICROSCOPIC ONLYon BACTERIA TRACE Abnormal NONE SEEN [facility] Comment on above: Performed By: #### E LAZARO UMICRO #### [facility] [address] [place] [address] Dr. Wally Zapien Bacteria identified Cx Nom (U) NOT INDICATED Normal [facility] Comment on above: Performed By: #### E RUR, UMICRO #### [facility] [address] [place] [address] Dr. Wally Zapien CAST NONE SEEN Normal NONE SEEN [facility] Comment on above: Performed By: #### E RUR UMICRO #### [facility] [address] [address] [address] Wally Zapien Crystals LM Nom (Urine sed) NONE SEEN Normal NONE SEEN [facility] Comment on above: Performed By: #### E RUR UMICRO #### [facility] [address] [address] [address] Wally Zapien Epithelial cells LM Ql (Urine sed) RARE Normal NONE SEEN /RARE [facility] Comment on above: Performed By: #### E SANJAYR, UMICRO #### [facility] [address] [address] [address] Wally Zapien MUCOUS NONE SEEN Normal NONE SEEN [facility] Comment on above: Performed By: #### Olinda WILLIS, UMICRO #### [facility] [address] [address] [address] Wally Zapien RBC (U) [#/Vol] /uL Abnormal 0-2 [facility] Comment on above: Performed By: #### Olinda WILLIS, UMICRO #### [facility] [address] [address] [address] Wally Zapien WBC 2-5 Abnormal NONE SEEN [facility] Comment on above: Performed By: #### Olinda WILLIS, UMICRO #### [facility] [address] [address] [address] Wally Zapien Patient Educationon 04-16-20 Patient [...] (more content not included)... Normal [facility] Urology Office/Clinic Noteon 04-16-2022 Urology [...] COE, Reno Maciel, URL In 1 year [facility] [address] [id number] Business (1) Additional Instructions: Patient Education Benign [...] (more content not included)... Normal [facility] Comment on above: Result Comment: [...] Urnls Dip Stick Auto w/o Microscopy POC 92367 Your Care Team Attending Physician - Reno [...] Appointments Follow Up with JAYDON COE, TANIYA Chegn When: Where: [facility] [address] [place] [address] [facility] (1) Medications What How Much [...] Urnls Dip Stick Auto w/o Microscopy POC 70711 (10/16/2021) Bilirubin Urine Dipstick - Negative Blood Urine Dipstick - Negative Glucose Urine Dipstick - Negative Ketones Urine Dipstick - Negative Leukocytes Urine Dipstick - Trace Nitrite Urine Dipstick - Negative Protein Urine Dipstick - 2+ (100 mg/dl) Specific [place] Urine Dipstick - 1.025 Urine Appearance Urine [...] (more content not included)... Normal [facility] Patient Educationon 10-16-19 Patient Education [...] Follow these instructions at home: ? Take atbz-vux-pmwhbxr and prescription medicines only as told by [...] 09/07/2016 Document Revised: 03/25/2019 Document Reviewed: 03/25/2019 [employer] Patient Education ? 2019 [employer] [facility] Urology Office/Clinic Noteon 10-16-2021 Urology Office/Clinic Note [...] Reno Maciel, URL [facility] [address], [place] [address]- Business (1) Additional Instructions: 6 month follow [...] (more content not included)... Normal [facility] Comment on above: Result Comment: Elec tronically Signed By: Reno VALENTIN MD\.br\Date and Time Signed: 10/16/21 14:57 EST\.br\Electronically Co-Signed By: Katherine Nolasco\.br\Date and Time Co-Signed: 10/16/21 14:55 EST Vital Signs Date Time Vital Sign Value Performing Clinician Facility 07-17-2023 15:40-0500 Body height 160.02 cm Rocio Chan Other [facility] Other 07-17-2023 15:40-0500 Body mass index (BMI) [Ratio] 37.55 kg/m2 Rocio Chan Other [facility] Other 07-17-2023 15:40-0500 Body temperature 98.2 [degF] Rocio Chan Other [facility] Other 07-17-2023 15:40-0500 Body weight 96.16 kg Rocio Chan Other [facility] Other 07-17-2023 15:40-0500 Diastolic blood pressure 76 mm[Hg] Rocio Nullmond Other [facility] Other 07-17-2023 15:40-0500 Respiratory rate 18 /min Rocio Chan Other [facility] Other 07-17-2023 15:40-0500 SaO2% (BldA) [Mass fraction] 96 % Rocio Nullmond Other [facility] Other 07-17-2023 15:40-0500 Systolic blood pressure 134 mm[Hg] Rocio Rocio Other [facility] [employer] Other 09-26-2022 13:26-0500 Blood Pressure Location Renonoe VALENTIN [facility] 09-26-2022 13:26-0500 Diastolic blood pressure 74 mm[Hg] Reno VALENTIN [facility] 09-26-2022 13:26-0500 Heart rate 52 /min Reno VALENTIN [facility] 09-26-2022 13:26-0500 Systolic blood pressure 173 mm[Hg] Reno VALENTIN [facility] 04-16-2022 13:49-0400 Diastolic blood pressure 87 mm[Hg] Reno VALENTIN [facility] 04-16-2022 13:49-0400 Mean blood pressure 110 mm[Hg] Reno VALENTIN [facility] 04-16-2022 13:49-0400 Systolic blood pressure 156 mm[Hg] Reno VALENTIN [facility] 04-16-2022 13:37-0400 Blood Pressure Location [place]o VALENTIN [facility] 04-16-2022 13:37-0400 Diastolic blood pressure 102 mm[Hg] Reno VALENTIN [facility] 04-16-2022 13:37-0400 Heart rate 81 /min Reno VALENTIN [facility] 04-16-2022 13:37-0400 Respiratory rate 16 /min [facility] 13:37-0400 Systolic blood pressure 191 mm[Hg] [place] VALENTIN [facility] Encounter Date Encounter Type Care Provider Facility Start: 10-28-2023 End: 10-29-2023 ambulatory Fabrice Dias MD [facility] Start: 09-30-2023 End: 10-01-2023 ambulatory Fabrice Dias MD Facility: [facility] Start: 2023 End: 09-24-2023 [facility]ulatory [facility] Start: 07-17-2023 End: 07-17-2023 ambulatory Rocio Chan Other [facility] Other Start: 07-17-2023 Office outpatient visit 15 minutes Rocio Chan [facility] Start: 05-27-2023 End: 05-28-2023 [facility]ulatory [facility] Start: 04-19-2023 ambulatory MD Reno VALENTIN Fac ility:[facility] Start: 01-23-[address] ELIANA BA . Facili ty:[facility] Start: 01-16-2023 ambulatory MD Reno Garnett ility:[facility] Start: 09-26-2022 End: 09-27-2022 ambulatory MD Reno VALENTIN Facility:[facility] Start: 09-26-2022 End: 09-26-2022 Patient encounter procedure Reno VALENTIN [facility] Start: 09-24-2022 End: 09-25-[address] ELIANA BA . Facility:[facility] Start: 09-18-2022 End: 09-18-2022 ambulatory KARLOS Parra Facility: Start: 04-16-2022 End: 04-17-2022 ambulatory MD Reno VALENTIN Facility:[facility] Start: 04-16-2022 End: 04-16-2022 Patient encounter procedure Reno VALENTIN [facility] Start: 10-16-2021 ambulatory MD Reno Guadalupe ity:BINH Dan Start: 10-16-2021 End: 10-17-2021 ambulatory MD Reno VALENTIN Facility:[facility] Procedures Date Procedure Procedure Detail Performing Clinician Start: 09-24-2022 PSA screening KARLOS ALVAREZ . Comment on above: Performed By: #### U RCX #### [facility] [address] [place] [address] Dr. Wally Zapien Start: 03-17-2019 Cystoscope, device ( physical object) Reno JAYDON Cardiac catheterization Patr ick VALENTIN Coronary artery bypass graft Reno VALENTIN Extraction of cataract Patri gregg VALENTIN Hydrocelectomy Renonoe MEYER S Inguinal herniorrhaphy Patri gregg VALENTIN Large intestine excision Pat noe VALENTIN Prosthetic arthropla sty of the hip Renonoe VALENTIN Repair of musculoten dinous cuff of shoulder Renonoe VALENTIN Tonsillectomy and adenoidectomy Renonoe VALENTIN Immunizations Immunization Date Immunization Notes Care Provider [employer] 05-24-2022 influenza virus vacc ine, unspecified formulation [employer] [facility] 04-20-2022 SARS-CoV-2 mRNA (zpwrxhpmzyi-ysoc-lsydyi e) vaccine [employer] [facility] 06-19-2021 SARS-CoV-2 (COVID-19 ) mRNA BNT-162b2 vax [employer] [facility] 06-01-2021 influenza virus vacc ine, unspecified formulation [employer] [facility] 05-23-2021 influenza virus vacc ine, unspecified formulation [employer] [facility] 11-10-2020 SARS-CoV-2 (COVID-19 ) mRNA BNT-162b2 vax [employer] [facility] 10-20-2020 SARS-CoV-2 (COVID-19 ) mRNA BNT-162b2 vax [employer] [facility] 08-04-2020 zoster vaccine recombinant [employer] [facility] 07-06-2020 SARS-CoV-2 (COVID-19 ) Ad26 vaccine, recombinant [employer] [facility] 06-24-2020 influenza virus vacc ine, unspecified formulation [employer] [facility] 06-03-2020 zoster vaccine recombinant [employer] [facility] 06-02-2020 SARS-CoV-2 (COVID-19 ) Ad26 vaccine, recombinant [place]o VALENTIN [facility] 05-26-2020 influenza virus vacc ine, unspecified formulation [employer] [facility] 05-29-2019 influenza virus vacc ine, unspecified formulation [employer] [facility] 06-17-2018 influenza virus vacc ine, unspecified formulation [employer] [facility] 05-14-2017 influenza virus vacc ine, unspecified formulation [employer] [facility] 05-14-2017 pneumococcal polysaccharide vaccine, 23 valent [employer] [facility] 05-17-2016 influenza virus vacc ine, unspecified formulation [employer] [facility] 05-17-2016 pneumococcal conjuga te vaccine, 13 valent [employer] [facility] 05-16-2015 influenza virus vacc ine, unspecified formulation [employer] [facility] Payers Date Payer Category Payer Private Health Insurance 1959 Private Health Insurance [id number] 1940 Unknown [id number] 2.16.8 [id number] 1942 Unknown [id number] 2.16.8 [id number] 1942 Unknown [id number] 2.16.8 [id number] 1942 Unknown [id number] 2.16.8 [id number] 1942 Unknown [id number] 2.16.8 [id number] 1942 Unknown [id number] 2.16.84 [id number] 1942 Unknown [id number] 2.16.84 [id number] 1942 Unknown [id number] 2.16.84 [id number] 1942 Unknown [id number] 2.16. [id number] 1942 Unknown [id number] 2.16. [id number] 1942 Unknown [id number] 2.16. [id number] 1942 Unknown [id number] 2.16. [id number] Social History Date Type Detail Facility Start: 04-16-2022 End: 09-26-2022 Tobacco smoking status Never smoked tobacco (finding) [facility] Tobacco smoking status Never [facility] Sex Assigned At Male [facility] Functional Status Date Assessment Result Facility 09-26-2022 Functional Status N/A [facility] 04-16-2022 Functional Status N/A [facility] 07-17-2023 Note Date & Type [...] no improvement in 2 to 3 days [facility] Other Hospital Discharge instructions 09-26-2022 Note Date [...] or mouth. Supplies needed: Soap. Alcohol-based hand inspector agricultural commodities. Standard cleaning products. Disinfectants, such as bleach. [...] water are not available, use alcohol-based hand inspector agricultural commodities. Avoid touching your face, mouth, nose, or [...] water. Air-dry your dishes or use a oil well shooter. Do not share dishes or eating utensils. [...] certain germs and not others. Read the occupational health nurse supervisor's instructions or read online resources to [...] minutes after each use, or according to occupational health nurse supervisor's instructions. Wash reusable cleaning cloths and [...] water are not available, use alcohol-based hand inspector agricultural commodities. In general: Stay home except to get [...] Professionals in Infection Control and Epidemiology: professionals.[email or web address].org/se facmco-iz-wado/non-healthcare- setting/home/ Summary It is important to know [...] 05/21/2009 Document Revised: 12/08/2019 Document Reviewed: 11/06/2019 [employer] Patient Education 2020 [employer] Follow Up Care 09/20/2022 14:58:28 With:JAYDON COE, Reno Maciel, URL Address: [facility] [address] , [place] [address]- When:3 months Comments:UTI F/U [facility] Discharge instructions 04-16-2022 Note Date & [...] urethra. Follow these instructions at home: Take [id number]-[id number] and prescription medicines only as told by [...] 08/12/2006 Document Revised: 07/07/2019 Document Reviewed: 09/16/2017 [employer] Patient Education 2020 [employer]. 04/16/2022 14:44:17 Calorie Counting for Weight Loss [...] 08/12/2006 Document Revised: 05/01/2019 Document Reviewed: 07/12/2017 [employer] Patient Education 2020 [employer] Follow Up Care 10/16/2021 15:00:57 With:JAYDON COE, Reno Maciel, URL Address: [address] [place] [address] [place] [address]- Business (1) When:Within 1 Year(s) [facility] Clinical Note 10-06-2020 Note Date & Type Note Facility 10-06-2020 Note Patient Outreach ([place] [facility]) PRASHANTH RICHARD ([id number]) 1940 M Date Time Provider Department 10/06/20 JOLYNN RUSSO During your visit today, we recorded the following information about you: Allergies As of Date: 10/06/2020 (No Known Allergies) Date Reviewed: 11/27/2018 Reviewed by: Huyen Barraza - Fully Assessed Order(s):SARS-COVID VACCINE 1ST DOSE APPT [[id number]] Order #: [id number] FUTURE Prescriptions as of 10/06/2020 Sig: RHOPRESSA [...] Status:Closed by NIDIA VOGEL on 10/10/20 [facility] Evaluation + Plan note Note Date & Type Note Facility Evaluation + Plan note Future Appointments Appointment Date:04/19/2023 09:30:00 AM Scheduled Provider:JAYDON COE, [place] Maciel Location:[facility] Appointment Type:URO Office Visit [facility] Evaluation + Plan note Note Date & Type Note Facility Evaluation + Plan note Future Appointments Appointment Date:01/16/2023 09:45:00 AM Scheduled Provider:Reno VALENTIN MD Location:[facility] Appointment Type:URO Office Visit Appointment Date:04/19/2023 09:30:00 AM Scheduled Provider:Reno VALENTIN MD Location:[facility] Appointment Type:URO Office Visit [facility] History general Narrative - Reported Note Date [...] see above Hospitalization History back spasms 2022 [facility] Other Hospital course Narrative Note Date & Type Note Facility Hospital course Narrative No data available for this section [facility] Progress note Note Date & Type Note Facility Progress note No data available for this section [facility] Summary Purpose Family History No Family History [...] and content) DATE CREATED AUTHOR 09/19/2021 [facility] DATE CREATED AUTHOR AUTHOR'S ORGANIZ ATION 09/28/2022 [facility] DATE CREATED AUTHOR AUTHOR'S ORGANIZ ATION 02/01/2023 [facility] DATE CREATED AUTHOR AUTHOR'S ORGANIZ ATION 11/01/2023 [facility] Care Team (unrecognized sect ion and content) Personnel Name: Eliana Ba MD Address: [address] [place] [address] [place] [address]- Personnel Name: Eliana Ba MD Address: Address: [address] [place] [address] [place] [address]- REASON FOR VISIT (unrecogniz ed section and [...] BE BASED ON THE PRIMARY CLINICAL RECORDS. [facility]. provides no warranty or guarantee of the accuracy or completeness of information in this document.
[2023-11-18 09:15] VITALS: BP 148/79; PULSE 60; RESP 16; TEMP 36.6; O2SAT 96
[2023-11-18 10:10] VITALS: BP 185/84; PULSE 59; RESP 18; O2SAT 96
[2023-11-18] MEDS: BUPIVACAINE HCL 0.25% PF 25 MG/10 ML VIAL 4 ML INJ (10:11)
[2023-11-18] MEDS: TRIAMCINOLONE ACETONIDE 40 MG/ML VIAL 80 MG INJ (10:13)
[2023-11-18] MEDS: LIDOCAINE HCL 2% 400 MG/20 ML MDV 16 ML INJ (10:13)
[2023-11-18 10:16] VITALS: BP 190/88; PULSE 56; RESP 18; O2SAT 96
--- NOTE | 2023-11-18 10:22 | P.ON_ITS ---
Date of procedure: 11/18/23 Pre-op diagnosis: Lumbar spondylosis Post-op diagnosis: same as pre-op Procedure: Procedure: Bilateral L4-5, L5-S1 radiofrequency ablation Medications: Bupivacaine 0.25% 6cc, lidocaine 2% 5cc, kenalog 80mg The patient was seen and examined in the preoperative holding area.? The site was marked.? Written informed consent was obtained and placed on the chart.? The patient was brought to the medical procedure unit and placed in the prone position.? A timeout was completed verifying correct patient, procedure, positioning, and special requirements.? The skin overlying the target points, the designated medial branch, were prepped and draped in the usual sterile fashion.? The target point was achieved with a 20-gauge 15 cm with a 10 mm curved active tip radiofrequency cannula under direct fluoroscopic visualization.? The needle was inserted at level L4 on the right side. Needle tip position was confirmed with lateral fluoroscopic position.? Motor stimulation was carried out at 2 Hz up to 5 volts with the absence of extremity activity.? This was repeated at level L5, S1 on right side.?? Sensory stimulation was carried out.? Concordant pain was realized at the above- mentioned sites.? Then radiofrequency lesioning was carried out times 90 seconds at 80 degrees times 2 lesions at each level.? The radiofrequency probe was removed prior to cannula removal.? The above-mentioned injectate was placed in 1 mL increments.? The needle was removed. The same procedure, with the same steps, was then completed on the left side at the same levels. Insertion sites were covered.? The patient was taken to the postoperative recovery area and monitored for an appropriate length of time before being found suitable for discharge in the company of a responsible adult. Anesthesia: Local Surgeon: Fabrice Dias Pathology: none sent Condition: stable Disposition: no change
== END 2023-11-18 10:32 | disposition home or self-care (01) ==
PROVIDERS: PCP Family Medicine; Visit Provider Anesthesiology
DX: M47.816 Spondylosis without myelopathy or radiculopathy, lumbar region (principal)
CPT/HCPCS: 64635; 64636

== ENCOUNTER 2023-12-18 09:41 | Outpatient (OUT) | payer MEDICARE, SELFPAY ==
--- OUTSIDE RECORDS SUMMARY | 2023-12-18 09:52 | XMS_ITS | CCD ---
Author Organization [facility] Care Team Providers Care Kitchen Cleaner Name Role Phone Eliana Ba Primary Care [...] Allergy Irritation (qualifier value) [facility] Medications Current Medications Medication Drug Class(es) [...] day(s), # 20 cap(s), Refills(s) 0, [id number] 160, cm, 09/26/22 13:50:00 EST, Height/Length Dosing, [...] BID, # 180 cap(s), Refills(s) 3, Pharmacy: [place] [id number] [address] [facility], 160, cm, 10/16/21 14:26:00 EST, Height/Length [...] 10-16-2021 Episodic Other aftercare (1 source) Other senior living (current) drug therapy; Translations: [OTH [facility] CURRENT DRUG THERAPY] Onset: 09-20-2022 Episodic Other aftercare (1 source) meterman (current) use of aspirin; Translations: [[facility] CURRENT USE OF ASPIRIN] Onset: 09-20-2022 Episodic [...] (COVID-19) RNA TERRIE+probe Ql (Unsp spec) Positive Ditto Other COVID/FLU RT-PCR Negative [facility] Other XR KNEE RT 3Von 01-23-2023 XR KNEE RT 3V EXAM: XR KNEE RT 3V HISTORY: Osteoarthritis of knee COMPARISON: None TECHNIQUE: 3 views FINDINGS: No acute fracture or dislocation. Moderate to severe degenerative changes. Unremarkable soft tissues. IMPRESSION: Moderate to severe degenerative changes. Electronically authenticated by: CALVIN BARNES Date: 2023-01-23 13:29 Normal [facility] 09-27-2022 Screens [id number] Normal [facility] Patient Educationon 09-26-19 23 Patient Education [...] Supplies needed: ? Soap. ? Alcohol-based hand senior quality analyst. ? Standard cleaning products. ? Disinfectants, [...] water are not available, use alcohol-based hand senior quality analyst. ? Avoid touching your face, mouth, [...] water. Air-dry your dishes or use a spoke maker. ? Do not share dishes or eating [...] certain germs and not others. Read the road oiling truck driver's instructions or read online resources to determine [...] pt here for f/u from [facility] due to hematuria HPI Staff Pt is here for a hospital f/u from [facility] 09/18/[address] scan done [...] infection today Pt was given Levofloxacin at [facility] and he could not tolerate [...] hematuria (R31.0: Gross hematuria) PT went to [facility] ER on 09/18/22 due to hematuria. [...] Within 3 months [facility] [address] [place] [address]- Additional Instructions: UTI F/U Patient Education Infection Prevention in the Home I, Merle Miranda, personally scribed for Dr. Valentin on 09/26/2022 14:16:39. . Documentation recorded by the scribe, Merle Miranda, accurately reflects the services(s) I performed and decisions made by me. Aut (more content not included)... Normal [facility] Comment on above: Result Comment: Elec tronically Signed By: Reno VALENTIN MD\.br\Date and Time Signed: 09/26/22 14:20 EST\.br\Electronically Co-Signed By: Merle Miranda\.br\Date and Time Co-Signed: 09/26/22 14:16 EST INSULINon 09-25-2022 Insulin 6.0 uIU/mL Normal 2.6-24.9 [facility] Comment on above: Performed By: #### I NSULIN #### [facility] [address] [address] [address] Wally Zapien BNPon 09-24-2022 Natriuretic peptide B (Bld) [Mass/Vol] 110.0 pg/mL Normal <=1,800.0 [facility] Comment on above: Performed By: #### U RCX #### [facility] [address] [address] [address] Wally Zapien CBC AUTO DIFFon 09-24-2022 BASO # 0.0 103/ul Normal 0.0-0.1 [facility] Comment on above: Performed By: #### C BC #### [facility] [address] [place] [address] Dr. Wally Zapien Basophils/100 WBC (Bld) 1.0 % Normal 0.2-2.0 [facility] Comment on above: Performed By: #### C BC #### [facility] [address] [place] [address] Dr. Wally Zapien EO # 0.2 103/ul Normal 0.0-0.7 [facility] Comment on above: Performed By: #### C BC #### [facility] [address] [place] [address] Dr. Wally Zapien Eosinophils/100 WBC (Bld) 4.2 % Normal 0.9-7.0 [facility] Comment on above: Performed By: #### C BC #### [facility] [address] [place] [address] Dr. Wally Zapien Erythrocyte distribution width (RBC) [Ratio] 12.5 % Normal 11.0-15.0 [facility] Comment on above: Performed By: #### C BC #### [facility] [address] [place] [address] Dr. Wally Zapien Hematocrit (Bld) [Volume fraction] 43.7 % Normal 42.0-54.0 [facility] Comment on above: Performed By: #### C BC #### [facility] [address] [place] [address] Dr. Wally Zapien Hemoglobin (Bld) [Mass/Vol] 15.4 g/dL Normal 14.0-18.0 [facility] Comment on above: Performed By: #### C BC #### [facility] [address] [place] [address] Dr. Wally Zapien IG # 0.02 10e3/ul Normal 0.00-0.03 [facility] Comment on above: Performed By: #### C BC #### [facility] [address] [place] [address] Dr. Wally Zapien IG % 0.5 % Normal 0.0-0.5 [facility] Comment on above: Performed By: #### C BC #### [facility] [address] [place] [address] Dr. Wally Zapien LYMPH # 1.7 103/ul Normal 1.2-3.8 [facility] Comment on above: Performed By: #### C BC #### [facility] [address] [place] [address] Dr. Wally Zapien Lymphocytes/100 WBC (Bld) 42.6 % Normal 20.5-60.0 [facility] Comment on above: Performed By: #### C BC #### [facility] [address] [place] [address] Dr. Wally Zapien MANUAL DIFF REQ NO Normal [facility] Comment on above: Performed By: #### C BC #### [facility] [address] [place] [address] Dr. Wally Zapien MCH (RBC) [Entitic mass] 31.6 pg Normal 25.9-34.0 [facility] Comment on above: Performed By: #### C BC #### [facility] [address] [place] [address] Dr. Wally Zapien MCHC (RBC) [Mass/Vol] 35.2 g/dL Normal 29.9-35.2 [facility] Comment on above: Performed By: #### C BC #### [facility] [address] [place] [address] Dr. Wally Zapien MCV (RBC) [Entitic vol] 89.5 fL Normal 80.0-94.0 [facility] Comment on above: Performed By: #### C BC #### [facility] [address] [place] [address] Dr. Wally Zapien MONO # 0.4 103/ul Normal 0.3-0.8 [facility] Comment on above: Performed By: #### C BC #### [facility] [address] [place] [address] Dr. Wally Zapien Monocytes/100 WBC (Bld) 9.2 % Normal 1.7-12.0 [facility] Comment on above: Performed By: #### C BC #### [facility] [address] [place] [address] Dr. Wally Zapien NEUT # 1.7 103/ul Normal 1.4-6.5 [facility] Comment on above: Performed By: #### C BC #### [facility] [address] [place] [address] Dr. Wally Zapien Neutrophils/100 WBC (Bld) 42.5 % Critically low 43.0-75.0 [facility] Comment on above: Performed By: #### C BC #### [facility] [address] [place] [address] Dr. Wally Zapien Platelet mean volume (Bld) [Entitic vol] 9.9 fL Normal 9.5-13.5 [facility] Comment on above: Performed By: #### C BC #### [facility] [address] [place] [address] Dr. Wally Zapien PLT 149 103/ul Critically low 150-450 [facility] Comment on above: Performed By: #### C BC #### [facility] [address] [place] [address] Dr. Wally Zapien RBC 4.88 106/ul Normal 4.70-6.10 [facility] Comment on above: Performed By: #### C BC #### [facility] [address] [place] [address] Dr. Wally Zapien WBC 4.0 103/ul Normal 4.0-11.0 [facility] Comment on above: Performed By: #### C BC #### [facility] [address] [place] [address] Dr. Wally Zapien CULTURE URINEon 09-24-2022 CULTURE URINE Culture Observations: LIGHT GROWTH OF MIXED SKIN GENNA. NO POTENTIAL PATHOGENS SEEN. Normal [facility] Comment on above: Performed By: #### U RCX #### [facility] [address] [place] [address] Dr. Wally Zapien FREE THYROXINE INDEX T7on FTI 2.52 Normal 1.30-4.50 [facility] Comment on above: Performed By: #### U RCX #### [facility] [address] [place] [address] Dr. Wally Zapien T3U 36.0 % Normal 33.0-40.0 [facility] Comment on above: Performed By: #### U RCX #### [facility] [address] [address] [address] Wally Zapien T4 [Mass/Vol] 7.00 ug/dL Normal 4.50-12.10 [facility] Comment on above: Performed By: #### U RCX #### [facility] [address] [place] [address] Dr. Wally Zapien GLYCOHEMOGLOBIN A1Con 2022 ADA RECOMMENDATION SEE BELOW Normal [facility] Comment on above: Result Comment: ADA RECOMMENDED LIMIT 4.0 - 6.0 ADA THERAPEUTIC TARGET < 7.0 ACTION SUGGESTED > 7.0 Performed By: #### A 1C #### [facility] [address] [place] [address] Dr. Wally Zapien Glucose [Mass/Vol] 123 mg/dL Normal [facility] Comment on above: Performed By: #### A 1C #### [facility] [address] [place] [address] Dr. Wally Zapien HbA1c (Bld) [Mass fraction] 5.9 % Normal 4.5-6.2 [facility] Comment on above: Performed By: #### A 1C #### [facility] [address] [place] [address] Dr. Wally Zapien LIPID PROFILEon 09-24-2022 CHOL-HDL RATIO NORM SEE BELOW Normal [facility] Comment on above: Result Comment: 3.3 - 4.4 LOW RISK 4.4 - 7.1 AVERAGE RISK 7.1 - 11.0 MODERATE RISK >11.0 HIGH RISK Performed By: #### U RCX #### [facility] [address] [place] [address] Dr. Wally Zapien Cholesterol [Mass/Vol] 117 mg/dL Normal <=200 [facility] Comment on above: Performed By: #### U RCX #### [facility] [address] [address] [address] Wally Zapien Cholesterol in HDL [Mass/Vol] 38 mg/dL Critically low 40-60 [facility] Comment on above: Performed By: #### U RCX #### [facility] [address] [address] [address] Wally Zapien Cholesterol in LDL [Mass/Vol] 32.6 mg/dL Normal [facility] Comment on above: Performed By: #### U RCX #### [facility] [address] [address] [address] Wally Zapien Cholesterol.total/Ch olesterol in HDL [Mass ratio] 3.1 {ratio} Normal [facility] Comment on above: Performed By: #### U RCX #### [facility] [address] [address] [address] Wally Zapien HDL NORMAL > or = 60 mg/dl - LOW CARDIOVASCULAR RISK <40 mg/dl - HIGH CARDIOVASCULAR RISK Normal [facility] Comment on above: Performed By: #### U RCX #### [facility] [address] [address] [address] Wally Zapien LDL CALC NORMAL SEE BELOW Normal [facility] Comment on above: Result Comment: <100 mg/dl OPTIMAL 100 - 129 mg/dl NEAR OR ABOVE OPTIMAL 130 - 159 mg/dl BORDERLINE HIGH 160 - 189 mg/dl HIGH >190 mg/dl VERY HIGH Performed By: #### U RCX #### [facility] [address] [place] [address] Dr. Wally Zapien Triglyceride [Mass/Vol] 232 mg/dL Critically high <=150 [facility] Comment on above: Performed By: #### U RCX #### [facility] [address] [address] [address] Wally Zapien VLDL CALC 46.4 mg/dL Normal [facility] Comment on above: Performed By: #### U RCX #### [facility] [address] [place] [address] Dr. Wally Zapien PROF 14(COMP METB)on 023 Albumin [Mass/Vol] 3.8 g/dL Normal 3.4-5.0 [facility] Comment on above: Performed By: #### B CLASSIFIED ADVERTISING MANAGER, T7, LIPID, TSH, CMP, URIC #### [facility] [address] [place] [address] Dr. Wally Zapien Albumin/Globulin [Mass ratio] 1.2 {ratio} Normal [facility] Comment on above: Performed By: #### B CLASSIFIED ADVERTISING MANAGER, T7, LIPID, TSH, CMP, URIC #### [facility] [address] [place] [address] Dr. Wally Zapien ALP [Catalytic activity/Vol] 80 U/L Normal 46-116 [facility] Comment on above: Performed By: #### B CLASSIFIED ADVERTISING MANAGER, T7, LIPID, TSH, CMP, URIC #### [facility] [address] [place] [address] Dr. Wally Zapien ALT [Catalytic activity/Vol] 34 U/L Normal 16-63 [facility] Comment on above: Performed By: #### B CLASSIFIED ADVERTISING MANAGER, T7, LIPID, TSH, CMP, URIC #### [facility] [address] [place] [address] Dr. Wally Zapien Anion gap [Moles/Vol] 11.3 mmol/L Normal [facility] Comment on above: Performed By: #### B CLASSIFIED ADVERTISING MANAGER, T7, LIPID, TSH, CMP, URIC #### [facility] [address] [place] [address] Dr. Wally Zapien AST [Catalytic activity/Vol] 24 U/L Normal 15-37 [facility] Comment on above: Performed By: #### B CLASSIFIED ADVERTISING MANAGER, T7, LIPID, TSH, CMP, URIC #### [facility] [address] [place] [address] Dr. Wally Zapien Bilirubin [Mass/Vol] 1.0 mg/dL Normal 0.2-1.0 [facility] Comment on above: Performed By: #### B CLASSIFIED ADVERTISING MANAGER, T7, LIPID, TSH, CMP, URIC #### [facility] [address] [place] [address] Dr. Wally Zapien Calcium [Mass/Vol] 8.5 mg/dL Normal 8.5-10.1 [facility] Comment on above: Performed By: #### B CLASSIFIED ADVERTISING MANAGER, T7, LIPID, TSH, CMP, URIC #### [facility] [address] [address] [address] Wally Zapien Chloride [Moles/Vol] 105 mmol/L Normal 98-107 [facility] Comment on above: Performed By: #### B CLASSIFIED ADVERTISING MANAGER, T7, LIPID, TSH, CMP, URIC #### [facility] [address] [address] [address] Wally Zapien CO2 [Moles/Vol] 28.6 mmol/L Normal 21.0-32.[address] [facility] Comment on above: Performed By: #### B CLASSIFIED ADVERTISING MANAGER, T7, LIPID, TSH, CMP, URIC #### [facility] [address] [address] [address] Wally Zapien Creatinine [Mass/Vol] 0.74 mg/dL Normal 0.70-1.30 [facility] Comment on above: Performed By: #### B CLASSIFIED ADVERTISING MANAGER, T7, LIPID, TSH, CMP, URIC #### [facility] [address] [address] [address] Wally Zapien EGFR-AF MONEGASQUE >60 Normal >=[address] [facility] Comment on above: Performed By: #### B CLASSIFIED ADVERTISING MANAGER, T7, LIPID, TSH, CMP, URIC #### [facility] [address] [address] [address] Wally Zapien EGFR-NON AF MONEGASQUE >60 Normal >=60 [facility] Comment on above: Performed By: #### B CLASSIFIED ADVERTISING MANAGER, T7, LIPID, TSH, CMP, URIC #### [facility] [address] [address] [address] Wally Zapien Globulin (S) [Mass/Vol] 3.2 g/dL Normal [facility] Comment on above: Performed By: #### B CLASSIFIED ADVERTISING MANAGER, T7, LIPID, TSH, CMP, URIC #### [facility] [address] [address] [address] Wally Zapien Glucose [Mass/Vol] 102 mg/dL Normal 74-106 [facility] Comment on above: Performed By: #### B CLASSIFIED ADVERTISING MANAGER, T7, LIPID, TSH, CMP, URIC #### [facility] [address] [place] [address] Dr. Wally Zapien Potassium [Moles/Vol] 3.9 mmol/L Normal 3.5-5.1 [facility] Comment on above: Performed By: #### B CLASSIFIED ADVERTISING MANAGER, T7, LIPID, TSH, CMP, URIC #### [facility] [address] [place] [address] Dr. Wally Zapien Protein [Mass/Vol] 7.0 g/dL Normal 6.4-8.2 [facility] Comment on above: Performed By: #### B CLASSIFIED ADVERTISING MANAGER, T7, LIPID, TSH, CMP, URIC #### [facility] [address] [place] [address] Dr. Wally Zapien Sodium [Moles/Vol] 141 mmol/L Normal 136-145 [facility] Comment on above: Performed By: #### B CLASSIFIED ADVERTISING MANAGER, T7, LIPID, TSH, CMP, URIC #### [facility] [address] [place] [address] Dr. Wally Zapien Urea nitrogen [Mass/Vol] 19.0 mg/dL Critically high 7.0-18.0 [facility] Comment on above: Performed By: #### B CLASSIFIED ADVERTISING MANAGER, T7, LIPID, TSH, CMP, URIC #### [facility] [address] [place] [address] Dr. Wally Zapien Urea nitrogen/Creatinine [Mass ratio] 25.7 mg/mg Normal [facility] Comment on above: Performed By: #### B CLASSIFIED ADVERTISING MANAGER, T7, LIPID, TSH, CMP, URIC #### [facility] [address] [place] [address] Dr. Wally Zapien TSHon 09-24-2022 TSH 1.535 uIU/mL Normal 0.358-3.740 [facility] Comment on above: Performed By: #### U RCX #### [facility] [address] [place] [address] Dr. Wally Zapien UA RANDOM W/MICROSCOPICon BACTERIA NONE SEEN Normal NONE SEEN [facility] Comment on above: Performed By: #### U RCX #### [facility] [address] [address] [address] Wally Zapien Bilirubin Ql (U) Negative Normal NEGATIVE [facility] Comment on above: Performed By: #### U RCX #### [facility] [address] [place] [address] Dr. Wally Zapien CAST NONE SEEN Normal NONE SEEN [facility] Comment on above: Performed By: #### U RCX #### [facility] [address] [address] [address] Wally Zapien Clarity (U) CLEAR Normal CLEAR [facility] Comment on above: Performed By: #### U RCX #### [facility] [address] [place] [address] Dr. Wally Zapien Color (U) YELLOW Normal YELLOW [facility] Comment on above: Performed By: #### U RCX #### [facility] [address] [address] [address] Wally Zapien Crystals LM Nom (Urine sed) NONE SEEN Normal NONE SEEN [facility] Comment on above: Performed By: #### U RCX #### [facility] [address] [place] [address] Dr. Wally Zapien Epithelial cells LM Ql (Urine sed) FEW Abnormal NONE SEEN /RARE [facility] Comment on above: Performed By: #### U RCX #### [facility] [address] [place] [address] Dr. Wally Zapien Glucose Ql (U) Negative Normal NEGATIVE [facility] Comment on above: Performed By: #### U RCX #### [facility] [address] [address] [address] Wally Zapien Hemoglobin Ql (U) TRACE-INTACT Abnormal NEGATIVE [facility] Comment on above: Performed By: #### U RCX #### [facility] [address] [place] [address] Dr. Wally Zapien Ketones Ql (U) Negative Normal NEGATIVE [facility] Comment on above: Performed By: #### U RCX #### [facility] [address] [address] [address] Wally Zapien LEUKOCYTES Negative Normal NEGATIVE [facility] Comment on above: Performed By: #### U RCX #### [facility] [address] [address] [address] Wally Zapien MUCOUS LARGE Abnormal NONE SEEN [facility] Comment on above: Performed By: #### U RCX #### [facility] [address] [address] [address] Wally Zapien Nitrite Ql (U) Negative Normal NEGATIVE [facility] Comment on above: Performed By: #### U RCX #### [facility] [address] [address] [address] Wally Zapien pH (U) 6.5 [pH] Normal 5-9 [facility] Comment on above: Performed By: #### U RCX #### [facility] [address] [place] [address] Dr. Wally Zapien RBC 2-5 Abnormal 0-2 [facility] Comment on above: Performed By: #### U RCX #### [facility] [address] [address] [address] Wally Zapien SPEC GRAVITY 1.025 Normal 1.005-<=1.025 [facility] Comment on above: Performed By: #### U RCX #### [facility] [address] [place] [address] Dr. Wally Zapien UA PROTEIN TRACE Normal NEGATIVE/ TRACE [facility] Comment on above: Performed By: #### U RCX #### [facility] [address] [address] [address] Wally Zapien Urobilinogen Qn (U) 1.0 {Suma'U}/dL Normal 0.2 - 1. 0 [facility] Comment on above: Performed By: #### U RCX #### [facility] [address] [address] [address] Wally Zapien WBC 0-2 Abnormal NONE SEEN [facility] Comment on above: Performed By: #### U RCX #### [facility] [address] [place] [address] Dr. Wally Zapien URIC ACID SERUMon 09-24-2022 Urate [Mass/Vol] 3.7 mg/dL Normal 3.5-7.2 [facility] Comment on above: Performed By: #### B CLASSIFIED ADVERTISING MANAGER, T7, LIPID, TSH, CMP, URIC #### [facility] [address] [place] [address] Dr. Wally Zapien VITAMIN D 25 OHon 09-24-2022 VIT D 25-OH 42.6 ng/mL Normal [facility] Comment on above: Performed By: #### U RCX #### [facility] [address] [place] [address] Dr. Wally Zapien VIT D RANGES SEE BELOW Normal [facility] Comment on above: Result Comment: <20 ng/mL Vit D deficient 20 - <30 ng/mL Vit D insufficient 30 - 100 ng/mL Vit D sufficient >100 ng/mL Potential Toxicity Performed By: #### U RCX #### [facility] [address] [place] [address] Dr. Wally Zapien ED Note-Physicianon 09-19-19 23 ED Note-Physician [id number] #[id number]:127 Normal [facility] Lab Reportson 09-19-2022 Lab Reports [id number]#[id number]:127 Normal [facility] RAD - CT Reporton 09-19-2022 RAD - CT Report [id number]#1.00CD:127 Normal [facility] CBC AUTO DIFFon 09-18-2022 BASO # 0.0 103/ul Normal 0.0-0.1 [facility] Comment on above: Performed By: #### C BC #### [facility] [address] [place] [address] Dr. Wally Zapien Basophils/100 WBC (Bld) 0.7 % Normal 0.2-2.0 [facility] Comment on above: Performed By: #### C BC #### [facility] [address] [place] [address] Dr. Wally Zapien EO # 0.1 103/ul Normal 0.0-0.7 [facility] Comment on above: Performed By: #### C BC #### [facility] [address] [place] [address] Dr. Wally Zapien Eosinophils/100 WBC (Bld) 2.8 % Normal 0.9-7.0 [facility] Comment on above: Performed By: #### C BC #### [facility] [address] [place] [address] Dr. Wally Zapien Erythrocyte distribution width (RBC) [Ratio] 12.7 % Normal 11.0-15.0 [facility] Comment on above: Performed By: #### C BC #### [facility] [address] [place] [address] Dr. Wally Zapien Hematocrit (Bld) [Volume fraction] 44.1 % Normal 42.0-54.0 [facility] Comment on above: Performed By: #### C BC #### [facility] [address] [place] [address] Dr. Wally Zapien Hemoglobin (Bld) [Mass/Vol] 15.3 g/dL Normal 14.0-18.0 [facility] Comment on above: Performed By: #### C BC #### [facility] [address] [place] [address] Dr. Wally Zapien IG # 0.01 10e3/ul Normal 0.00-0.03 [facility] Comment on above: Performed By: #### C BC #### [facility] [address] [place] [address] Dr. Wally Zapien IG % 0.2 % Normal 0.0-0.5 [facility] Comment on above: Performed By: #### C BC #### [facility] [address] [place] [address] Dr. Wally Zapien LYMPH # 1.8 103/ul Normal 1.2-3.8 [facility] Comment on above: Performed By: #### C BC #### [facility] [address] [place] [address] Dr. Wally Zapien Lymphocytes/100 WBC (Bld) 43.0 % Normal 20.5-60.0 [facility] Comment on above: Performed By: #### C BC #### [facility] [address] [place] [address] Dr. Wally Zapien MANUAL DIFF REQ NO Normal [facility] Comment on above: Performed By: #### C BC #### [facility] [address] [place] [address] Dr. Wally Zapien MCH (RBC) [Entitic mass] 32.1 pg Normal 25.9-34.0 [facility] Comment on above: Performed By: #### C BC #### [facility] [address] [place] [address] Dr. Wally Zapien MCHC (RBC) [Mass/Vol] 34.7 g/dL Normal 29.9-35.2 [facility] Comment on above: Performed By: #### C BC #### [facility] [address] [place] [address] Dr. Wally Zapien MCV (RBC) [Entitic vol] 92.5 fL Normal 80.0-94.0 [facility] Comment on above: Performed By: #### C BC #### [facility] [address] [place] [address] Dr. Wally Zapien MONO # 0.4 103/ul Normal 0.3-0.8 [facility] Comment on above: Performed By: #### C BC #### [facility] [address] [place] [address] Dr. Wally Zapien Monocytes/100 WBC (Bld) 9.2 % Normal 1.7-12.0 [facility] Comment on above: Performed By: #### C BC #### [facility] [address] [place] [address] Dr. Wally Zapien NEUT # 1.9 103/ul Normal 1.4-6.5 [facility] Comment on above: Performed By: #### C BC #### [facility] [address] [place] [address] Dr. Wally Zapien Neutrophils/100 WBC (Bld) 44.1 % Normal 43.0-75.0 [facility] Comment on above: Performed By: #### C BC #### [facility] [address] [address] [address] Wally Zapien Platelet mean volume (Bld) [Entitic vol] 10.4 fL Normal 9.5-13.5 [facility] Comment on above: Performed By: #### C BC #### [facility] [address] [address] [address] Wally Zapien PLT 152 103/ul Normal 150-450 [facility] Comment on above: Performed By: #### C BC #### [facility] [address] [address] [address] Wally Zapien RBC 4.77 106/ul Normal 4.70-6.10 [facility] Comment on above: Performed By: #### C BC #### [facility] [address] [address] [address] Wally Zapien WBC 4.2 103/ul Normal 4.0-11.0 [facility] Comment on above: Performed By: #### C BC #### [facility] [address] [place] [address] ABD/PELVIS WO CONon [...] MAYRA LOPEZ Date: 2022-09-18 13:40 Normal [facility] ER URINE PROFILEon 3 Bilirubin Ql (U) SMALL Abnormal NEGATIVE [facility] Comment on above: Performed By: #### KERRI PADRON #### [facility] [address] [place] [address] Dr. Wally Zapien Clarity (U) SL CLOUDY Abnormal CLEAR [facility] Comment on above: Performed By: #### KERRI PADRON #### [facility] [address] [place] [address] Dr. Wally Zapien Color (U) RED Abnormal YELLOW [facility] Comment on above: Performed By: #### KERRI PADRON #### [facility] [address] [place] [address] Dr. Wally GERBER A micrscopic examination will be performed if indicated. Normal [facility] Comment on above: Performed By: #### KERRI PADRON #### [facility] [address] [place] [address] Dr. Wally Zapien Glucose Ql (U) Negative Normal NEGATIVE [facility] Comment on above: Performed By: #### KERRI PADRON #### [facility] [address] [place] [address] Dr. Wally Zapien Hemoglobin Ql (U) LARGE Abnormal NEGATIVE [facility] Comment on above: Performed By: #### E LAZARO, UMICRO #### [facility] [address] [place] [address] Dr. Wally Zapien Ketones Ql (U) TRACE Abnormal NEGATIVE [facility] Comment on above: Performed By: #### E LAZARO, UMICRO #### [facility] [address] [place] [address] Dr. Wally Zapien LEUKOCYTES TRACE Abnormal NEGATIVE [facility] Comment on above: Performed By: #### E LAZARO, UMICRO #### [facility] [address] [place] [address] Dr. Wally Zapien Nitrite Ql (U) Positive Abnormal NEGATIVE [facility] Comment on above: Performed By: #### Olinda WILLIS UMICRO #### [facility] [address] [place] [address] Dr. Wally Zapien pH (U) 5.5 [pH] Normal 5-9 [facility] Comment on above: Performed By: #### Olinda WILLIS UMICRO #### [facility] [address] [place] [address] Dr. Wally Zapien Protein (U) [Mass/Vol] 100 mg/dL Abnormal NEGATIVE/ TRACE [facility] Comment on above: Performed By: #### Olinda WILLIS UMICRO #### [facility] [address] [place] [address] Dr. Wally Zapien SPEC GRAVITY 1.025 Normal 1.005-<=1.025 [facility] Comment on above: Performed By: #### Olinda WILLIS UMICRO #### [facility] [address] [place] [address] Dr. Wally Zapien UR MICRO IND INDICATED Normal [facility] Comment on above: Performed By: #### E LAZARO, UMICRO #### [facility] [address] [place] [address] Dr. Wally Zapien Urobilinogen Qn (U) 1.0 {Suma'U}/dL Normal 0.2 - 1. 0 [facility] Comment on above: Performed By: #### E KERRI WILLIS #### [facility] [address] [address] [address] Wally Zapien PROF CHEM 8 (BAS METB)on Anion gap [Moles/Vol] 10.5 mmol/L Normal [facility] Comment on above: Performed By: #### U RCX #### [facility] [address] [address] [address] Wally Zapien Calcium [Mass/Vol] 8.6 mg/dL Normal 8.5-10.1 [facility] Comment on above: Performed By: #### U RCX #### [facility] [address] [place] [address] Dr. Wally Zapien Chloride [Moles/Vol] 105 mmol/L Normal 98-107 [facility] Comment on above: Performed By: #### U RCX #### [facility] [address] [address] [address] Wally Zapien CO2 [Moles/Vol] 28.8 mmol/L Normal 21.0-32.0 [facility] Comment on above: Performed By: #### U RCX #### [facility] [address] [place] [address] Dr. Wally Zapien Creatinine [Mass/Vol] 0.85 mg/dL Normal 0.70-1.30 [facility] Comment on above: Performed By: #### U RCX #### [facility] [address] [place] [address] Dr. Wally Zapien EGFR-AF MONEGASQUE >60 Normal >=[address] [facility] Comment on above: Performed By: #### U RCX #### [facility] [address] [address] [address] Wally Zapien EGFR-NON AF MONEGASQUE >60 Normal >=60 [facility] Comment on above: Performed By: #### U RCX #### [facility] [address] [place] [address] Dr. Wally Zapien Glucose [Mass/Vol] 112 mg/dL Critically high 74-106 [facility] Comment on above: Performed By: #### U RCX #### [facility] [address] [address] [address] Wally Zapien Potassium [Moles/Vol] 4.3 mmol/L Normal 3.5-5.1 [facility] Comment on above: Performed By: #### U RCX #### [facility] [address] [address] [address] Wally Zapien Sodium [Moles/Vol] 140 mmol/L Normal 136-145 [facility] Comment on above: Performed By: #### U RCX #### [facility] [address] [address] [address] Wally Zapien Urea nitrogen [Mass/Vol] 23.0 mg/dL Critically high 7.0-18.0 [facility] Comment on above: Performed By: #### U RCX #### [facility] [address] [address] [address] Wally Zapien Urea nitrogen/Creatinine [Mass ratio] 27.1 mg/mg Normal [facility] Comment on above: Performed By: #### U RCX #### [facility] [address] [place] [address] Dr. Wally Zapien URINE MICROSCOPIC ONLYon BACTERIA TRACE Abnormal NONE SEEN [facility] Comment on above: Performed By: #### E LAZARO UMICRO #### [facility] [address] [place] [address] Dr. Wally Zapien Bacteria identified Cx Nom (U) NOT INDICATED Normal [facility] Comment on above: Performed By: #### E RUR, UMICRO #### [facility] [address] [place] [address] Dr. Wally Zapien CAST NONE SEEN Normal NONE SEEN [facility] Comment on above: Performed By: #### E RUR UMICRO #### [facility] [address] [address] [address] Wally Zapien Crystals LM Nom (Urine sed) NONE SEEN Normal NONE SEEN [facility] Comment on above: Performed By: #### E RUR UMICRO #### [facility] [address] [address] [address] Wally Zapien Epithelial cells LM Ql (Urine sed) RARE Normal NONE SEEN /RARE [facility] Comment on above: Performed By: #### E SANJAYR, UMICRO #### [facility] [address] [address] [address] Wally Zapien MUCOUS NONE SEEN Normal NONE SEEN [facility] Comment on above: Performed By: #### Olinda WILLIS, UMICRO #### [facility] [address] [address] [address] Wally Zapien RBC (U) [#/Vol] /uL Abnormal 0-2 [facility] Comment on above: Performed By: #### Olinda WILLIS, UMICRO #### [facility] [address] [address] [address] Wally Zapien WBC 2-5 Abnormal NONE SEEN [facility] Comment on above: Performed By: #### Olinda WILLIS, UMICRO #### [facility] [address] [address] [address] Wally Zapien Patient Educationon 04-16-20 Patient [...] You could (more content not included)... Normal [facility] Urology Office/Clinic Noteon 04-16-2022 Urology Office/Clinic [...] COE, Reno Maciel, URL In 1 year [facility] [place] [id number] Business (1) Additional Instructions: Patient Education Benign [...] vaccine 07/06 (more content not included)... Normal [facility] Comment on above: Result Comment: Elec [...] Urnls Dip Stick Auto w/o Microscopy POC 17474 Your Care Team Attending Physician - Reno [...] [facility] [address] [place] [address] [facility] (1) Medications What How Much When Instructions [...] Urnls Dip Stick Auto w/o Microscopy POC 12533 (10/16/2021) Bilirubin Urine Dipstick - Negative Blood Urine Dipstick - Negative Glucose Urine Dipstick - Negative Ketones Urine Dipstick - Negative Leukocytes Urine Dipstick - Trace Nitrite Urine Dipstick - Negative Protein Urine Dipstick - 2+ (100 mg/dl) Specific [place] Urine Dipstick - 1.025 Urine Appearance Urine [...] urine fr (more content not included)... Normal [facility] Patient Educationon 10-16-19 Patient Education Urology [...] Follow these instructions at home: ? Take ovwr-xdo-dilxkzk and prescription medicines only as told by [...] 09/07/2016 Document Revised: 03/25/2019 Document Reviewed: 03/25/2019 [employer] Patient Education ? 2019 [employer]. [facility] Urology Office/Clinic Noteon 10-16-2021 Urology [...] reflux uropathy) Follow-up With When Contact Information JYADON COE, Reno Maciel, URL [facility] [address], [place] [address]- Business (1) Additional Instructions: 6 month follow [...] disease: Mother. (more content not included)... Normal [facility] Comment on above: Result Comment: Elec tronically Signed By: Reno VALENTIN MD\.br\Date and Time Signed: 10/16/21 14:57 EST\.br\Electronically Co-Signed By: Katherine Nolasco\.br\Date and Time Co-Signed: 10/16/21 14:55 EST Vital Signs Date Time Vital Sign Value Performing Clinician Facility 07-17-2023 15:40-0500 Body height 160.02 cm Rocio Chan Other [facility] Other 07-17-2023 15:40-0500 Body mass index (BMI) [Ratio] 37.55 kg/m2 Rocio Chan Other [facility] Other 07-17-2023 15:40-0500 Body temperature 98.2 [degF] Rocio Chan Other [facility] Other 07-17-2023 15:40-0500 Body weight 96.16 kg Rocio Chan Other [facility] Other 07-17-2023 15:40-0500 Diastolic blood pressure 76 mm[Hg] Rocio Nullmond Other [facility] Other 07-17-2023 15:40-0500 Respiratory rate 18 /min Rocio Chan Other [facility] Other 07-17-2023 15:40-0500 SaO2% (BldA) [Mass fraction] 96 % Rocio Nullmond Other [facility] Other 07-17-2023 15:40-0500 Systolic blood pressure 134 mm[Hg] Rocio Rocio Other [facility] [employer] Other 09-26-2022 13:26-0500 Blood Pressure Location Renonoe VALENTIN [facility] 09-26-2022 13:26-0500 Diastolic blood pressure 74 mm[Hg] Reno VALENTIN [facility] 09-26-2022 13:26-0500 Heart rate 52 /min Reno VALENTIN [facility] 09-26-2022 13:26-0500 Systolic blood pressure 173 mm[Hg] Reno VALENTIN [facility] 04-16-2022 13:49-0400 Diastolic blood pressure 87 mm[Hg] Reno VALENTIN [facility] 04-16-2022 13:49-0400 Mean blood pressure 110 mm[Hg] Reno VALENTIN [facility] 04-16-2022 13:49-0400 Systolic blood pressure 156 mm[Hg] Reno VALENTIN [facility] 04-16-2022 13:37-0400 Blood Pressure Location [facility] VALENTIN [facility] 04-16-2022 13:37-0400 Diastolic blood pressure 102 mm[Hg] Reno VALENTIN [facility] 04-16-2022 13:37-0400 Heart rate 81 /min Reno VALENTIN [facility] 04-16-2022 13:37-0400 Respiratory rate 16 /min [facility] VALENTIN [facility] 04-16-2022 13:37-0400 Systolic blood pressure 191 mm[Hg] [place] VALENTIN [facility] En[facility] Encounter Date Encounter Type Care Provider Facility Start: 10-28-2023 End: 10-29-2023 [facility] Start: 09-30-2023 End: 10-01-2023 ambulatory Fabrice Dias MD Facility: [facility] Start: 2023 End: 09-24-2023 [facility] Start: 07-17-2023 End: 07-17-2023 ambulatory Rocio Chan Other [facility] Other Start: 07-17-2023 Office outpatient visit 15 minutes Rocio Chan [facility] Start: 05-27-2023 End: 05-28-2023 [facility] Start: 04-19-2023 ambulatory MD Reno VALENTIN Fac ility:[facility] Start: 01-23-[address] ELIANA BA . Facili ty:[facility] Start: 01-16-2023 ambulatory MD Reno Garnett ility:[facility] Start: 09-26-2022 End: 09-27-2022 ambulatory MD Reno VALENTIN Facility:[facility] Start: 09-26-2022 End: 09-26-2022 Patient encounter procedure Reno VALENTIN [facility] Start: 09-24-2022 End: 09-25-[address] ELIANA BA . Facility:[facility] Start: 09-18-2022 End: 09-18-2022 ambulatory KARLOS Parra Facility: Start: 04-16-2022 End: 04-17-2022 ambulatory MD Reno VALENTIN Facility:[facility] Start: 04-16-2022 End: 04-16-2022 Patient encounter procedure Reno VALENTIN [facility] Start: 10-16-2021 ambulatory MD Reno Guadalupe ity:BIN[facility] Dan Start: 10-16-2021 End: 10-17-2021 ambulatory MD Reno VALENTIN Facility:[facility] Procedures Date Procedure Procedure Detail Performing Clinician Start: 09-24-2022 PSA screening KARLOS ALVAREZ . Comment on above: Performed By: #### U RCX #### [facility] [address] [place] [address] Dr. Wally Zapien Start: 03-17-2019 Cystoscope, device [...] 05-24-2022 influenza virus vacc ine, unspecified formulation [facility] 04-20-2022 SARS-CoV-2 mRNA (qocwaammrjm-ixrz-pnnaiu e) vaccine [facility] 06-19-2021 SARS-CoV-2 (COVID-19 ) mRNA BNT-162b2 vax [facility] 06-01-2021 influenza virus vacc ine, unspecified formulation [facility] 05-23-2021 influenza virus vacc ine, unspecified formulation [facility] 11-10-2020 SARS-CoV-2 (COVID-19 ) mRNA BNT-162b2 vax [facility] 10-20-2020 SARS-CoV-2 (COVID-19 ) mRNA BNT-162b2 vax [facility] 08-04-2020 zoster vaccine recombinant [facility] 07-06-2020 SARS-CoV-2 (COVID-19 ) Ad26 vaccine, recombinant Repligen [facility] 06-24-2020 influenza virus vacc ine, unspecified formulation Re[facility] 06-03-2020 zoster vaccine recombinant Repligen [facility] 06-02-2020 SARS-CoV-2 (COVID-19 ) Ad26 vaccine, recombinant [place]o VALENTIN [facility] 05-26-2020 influenza virus vacc ine, unspecified formulation Repligen [facility] 05-29-2019 influenza virus vacc ine, unspecified formulation Repligen [facility] 06-17-2018 influenza virus vacc ine, unspecified formulation Re[facility] 05-14-2017 influenza virus vacc ine, unspecified formulation Re[facility] 05-14-2017 pneumococcal polysaccharide vaccine, 23 valent Re[facility] 05-17-2016 influenza virus vacc ine, unspecified formulation Re[facility] 05-17-2016 pneumococcal conjuga te vaccine, 13 valent Re[facility] 05-16-2015 influenza virus vacc ine, unspecified formulation Re[facility]igen [facility] Payers Date Payer Category Payer Private Health Insurance 1959 Private Health Insurance [id number] 1940 Unknown [id number] 2.16.8 [id number] 1942 Unknown [id number] 2.16.8 [id number] 1942 Unknown [id number] 2.16.8 [id number] 1942 Unknown [id number] 2.16.8 [id number] 1942 Unknown [id number] 2.16.8 [id number] 1942 Unknown [id number] 2.16.84 [id number] 1942 Unknown [id number] 2.16.84 [id number] 1942 Unknown [id number] 2.16.84 [id number] 1942 Unknown [id number] 2.16. [id number] 1942 Unknown [id number] 2.16. [id number] 1942 Unknown [id number] 2.16. [id number] 1942 Unknown [id number] 2.16. [id number] Social History Date Type Detail Facility Start: 04-16-2022 End: 09-26-2022 Tobacco smoking status Never smoked tobacco (finding) [facility] Tobacco smoking status Never [facility] Sex Assigned At Male [facility] Functional Status Date Assessment Result Facility 09-26-2022 Functional Status N/A [facility] 04-16-2022 Functional Status N/A [facility] 07-17-2023 Note Date & Type [...] no improvement in 2 to 3 days [facility] Discharge instructions 09-26-2022 Note Date [...] or mouth. Supplies needed: Soap. Alcohol-based hand senior quality analyst. Standard cleaning products. Disinfectants, such as [...] water are not available, use alcohol-based hand senior quality analyst. Avoid touching your face, mouth, nose, [...] water. Air-dry your dishes or use a spoke maker. Do not share dishes or eating utensils. [...] certain germs and not others. Read the road oiling truck driver's instructions or read online resources to determine [...] minutes after each use, or according to road oiling truck driver's instructions. Wash reusable cleaning cloths and sanitize [...] water are not available, use alcohol-based hand senior quality analyst. In general: Stay home except to [...] Professionals in Infection Control and Epidemiology: professionals.[email or web address].apic.org/se shlxev-cp-mnbp/non-healthcare- setting/home/ Summary It is important to know [...] 05/21/2009 Document Revised: 12/08/2019 Document Reviewed: 11/06/2019 [employer] Patient Education 2020 [employer] Follow Up Care 09/20/2022 14:58:28 With:JAYDON COE, Reno Maciel, URL Address: [facility] [address] , [place] [address]- When:3 months Comments:UTI F/U [facility] Hospital Discharge instructions 04-16-2022 Note Date [...] urethra. Follow these instructions at home: Take yyvx-les-[id number] and prescription medicines only as told by [...] 08/12/2006 Document Revised: 07/07/2019 Document Reviewed: 09/16/2017 [employer] Patient Education 2020 [employer]. 04/16/2022 14:44:17 Calorie Counting for Weight Loss [...] 08/12/2006 Document Revised: 05/01/2019 Document Reviewed: 07/12/2017 [employer] Patient Education 2020 [employer] Follow Up Care 10/16/2021 15:00:57 With:JAYDON COE, Reno Maciel, URL Address: [address] [place] [address] [place] [address]- Business (1) When:Within 1 Year(s) [facility] Clinical Note 10-06-2020 Note Date & Type Note Facility 10-06-2020 Note Patient Outreach ([place] [facility]) PRASHANTH RICHARD ([id number]) 1940 M Date Time Provider Department 10/06/20 JOLYNN RUSSO During your visit today, we recorded the following information about you: Allergies As of Date: 10/06/2020 (No Known Allergies) Date Reviewed: 11/27/2018 Reviewed by: Huyen Barraza - Fully Assessed Order(s):SARS-COVID VACCINE 1ST DOSE APPT [[id number]] Order #: [id number] FUTURE Prescriptions as of 10/06/2020 Sig: RHOPRESSA [...] [I25.10] Letter Text Encounter Status:Closed by NIDIA VOEGL on 10/10/20 [facility] Evaluation + Plan note Note Date & Type Note Facility Evaluation + Plan note Future Appointments Appointment Date:04/19/2023 09:30:00 AM Scheduled Provider:JAYDON COE, Ren[place] Maciel Location:[facility] Appointment Type:URO Office Visit [facility] Evaluation + Plan note Note Date & Type Note Facility Evaluation + Plan note Future Appointments Appointment Date:01/16/2023 09:45:00 AM Scheduled Provider:Reno VALENTIN MD Location:[facility], [facility]1983 Appointment Type:URO Office Visit Appointment Date:04/19/2023 09:30:00 AM Scheduled Provider:Reno VALENTIN MD Location:[facility] Appointment Type:URO Office Visit [facility] History general Narrative - Reported Note [...] see above Hospitalization History back spasms 2022 [facility] course Narrative Note Date & Type Note Facility Hospital course Narrative No data available for this section [facility] note Note Date & Type Note Facility Progress note No data available for this section [facility] Summary Purpose Family History No Family History [...] section and content) DATE CREATED AUTHOR 09/19/2021 [facility] DATE CREATED AUTHOR AUTHOR'S ORGANIZ ATION 09/28/2022 [facility] DATE CREATED AUTHOR AUTHOR'S ORGANIZ ATION 02/01/2023 [facility] DATE CREATED AUTHOR AUTHOR'S ORGANIZ ATION 11/01/2023 [facility] Care Team (unrecognized sect ion and content) Personnel Name: Eliana Ba MD Address: [address] [place] [address] [place] [address]- Personnel Name: Eliana Ba MD Address: Address: [address] [place] [address] [place] [address]- REASON FOR VISIT (unrecogniz ed section and [...] BE BASED ON THE PRIMARY CLINICAL RECORDS. [facility]. provides no warranty or guarantee of the accuracy or completeness of information in this document.
--- NOTE | 2023-12-18 10:02 | P.CN_ITS ---
Consult Note: HPI Data of Consult Patient: known to practice within the last 3 years Consult date: 09/23/23 Requesting Physician: Ambika Hill NP Primary Care Provider: Bayron Ba MD Consult Narrative Reason for consult: Low back pain Narrative: 83yom who presents for assessment. Worsening axial low back pain, worse with standing. Lumbar XR shows significant facet arthropathy in lower lumbar spine. Underwent physical therapy within past 3 months, continues in >6 weeks of provider directed home exercises, with no benefit. Utilizes mobic, with minimal benefit. Denies adverse med side effects. Patient recently underwent bilateral L4-5 L5-S1 facet medial branch RFA with 50% improvement in axial low back pain, continues to have stiffness and increase in pain with activity during the day, but notices improvement in ability to walk and ambulate. cc:: CC: Ambika Hill NP Review of Systems ROS Status of ROS 10 or more systems reviewed and unremark able except as noted in history and below Musculoskeletal Reports: back pain PFSH PFSH Medical History Low back pain ?M54.50 - Low back pain, unspecified (ICD-10) Sleep apnea ?G47.30 - Sleep apnea, unspecified (ICD-10) High cholesterol ?E78.00 - Pure hypercholesterolemia, unspecified (ICD-10) Heart disease ?I51.9 - Heart disease, unspecified (ICD-10) Hypertension ?I10 - Essential (primary) hypertension (ICD-10) Glaucoma ?H40.9 - Unspecified glaucoma (ICD-10) Colon cancer ?C18.9 - Malignant neoplasm of colon, unspecified (ICD-10) Inability to walk ?R26.2 - Difficulty in walking, not elsewhere classified (ICD-10) Chronic back pain ?M54.9 - Dorsalgia, unspecified (ICD-10) ?G89.29 - Other chronic pain (ICD-10) Strain of lumbar region ?S39.012A - Strain of muscle, fascia and tendon of lower back, initial encounter (ICD-10) Surgical History Detached retina, left ?H33.22 - Serous retinal detachment, left eye (ICD-10) Cataracts, both eyes ?H26.9 - Unspecified cataract (ICD-10) History of colectomy ?Z90.49 - Acquired absence of other specified parts of digestive tract (ICD- 10) 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 Smoking status: Never smoker Non-prescribed substance use: denies use Previous occupational history: retired Highest level of school completed/degree received: Bachelor's degree Are you now , , , , never or living with a partner: Little interest or pleasure in doing things: not at all Feeling down, depressed, or hopeless: not at all Feel stressed/tense/nervous/anxious/difficulty sleeping: not at all Do you think of yourself as: straight/heterosexual Gender Identity: male Meds Home Medications and Allergies Home Medications ?Medication ?Instructions ?Recorded ?Confirmed ?Type aspirin 81 mg tablet,delayed 81 mg PO DAILY 05/20/23 11/18/23 History release atorvastatin 40 mg tablet 40 mg PO DAILY 05/20/23 11/18/23 History dorzolamide 22.3 mg-timolol 6.8 1 drp ophthalmic (eye) BID 05/20/23 11/18/23 History mg/mL eye drops icosapent ethyl 1 gram capsule 2 g PO BID 05/20/23 11/18/23 History latanoprost 0.005 % eye drops 1 drp ophthalmic (eye) .QHS 05/20/23 11/18/23 History lisinopril 10 mg tablet 10 mg PO DAILY 05/20/23 11/18/23 History meloxicam 15 mg tablet 15 mg PO DAILY 05/20/23 11/18/23 History metoprolol tartrate 25 mg tablet 12.5 mg PO BID 05/20/23 11/18/23 History netarsudil 0.02 % eye drops 1 drp ophthalmic (eye) DAILY 05/20/23 11/18/23 History (Rhopressa) tamsulosin 0.4 mg capsule 0.4 mg PO BID 05/20/23 11/18/23 History Allergies Allergy/AdvReac Type Severity Reaction Status Date / Time No Known Drug Allergies Allergy Verified 11/18/23 09:17 Exam Constitutional Documenting provider has reviewed patient's vital signs: yes Common normals: no apparent distress, oriented x3, healthy appearing, alert and well nourished General appearance: cooperative HENMT Common normals: normocephalic, hearing grossly normal bilaterally and moist oral mucous membranes Head and scalp: normocephalic Eye Common normals: PERRL Pupil: PERRL Neck & C-Spine Common normals: full ROM General: normal visual inspection Chest Common normals: inspection of chest normal Respiratory Common normals: normal respiratory effort, no retractions and no use of accessory muscles Back & Pelvis Lumbar spine/lower back: normal to inspection, lumbar ROM normal and pain with ROM Sacroiliac joints: SI joints normal Extremity Common normals: normal to inspection and full ROM Neuro Common normals: oriented x3, CN's II-XII intact bilaterally, moves all extremities, no focal motor deficits, no sensory deficits noted and deep tendon reflexes 2+ bilaterally Sensorium/orientation: alert Gait (neuro): assistive device used cane Motor exam: strength 5/5 throughout and no movement abnormalities noted Psych Common normals: mental status grossly normal, thought process normal, cooperat meghann, affect normal, speech normal and activity/motor behavior normal Speech: normal speech Thought process: normal thought process Assessment and Plan Assessment and Plan (1) Lumbar spondylosis: (2) Myofascial pain: Plan start lidocaine patch 5% 12 hrs on 12hrs off qday continue PRN mobic 15mg, denies side effects f/u 3 months, sooner if needed. can consider muscle relaxer if needed, caution at this time due to age and ambulating with a cane
== END 2023-12-18 09:42 | disposition home or self-care (01) ==
PROVIDERS: PCP Family Medicine; Visit Provider Nurse Practitioner
DX: M47.816 Spondylosis without myelopathy or radiculopathy, lumbar region (principal); M79.18 Myalgia, other site
CPT/HCPCS: G0463

== ENCOUNTER 2024-03-01 23:53 | Emergency (ER) | payer MEDICARE, SELFPAY ==
--- OUTSIDE RECORDS SUMMARY | 2024-03-01 23:59 | XMS_ITS | CCD ---
Author Organization [facility] Care Team Providers Care Colors Custodian Name Role Phone Eliana Ba Primary Care Physician [phone] GERONIMO ., KARLOS Admitting Unavailable GERONIMO ., [...] Unavailable HOY ., DR MONROY Consulting Unavailable CAMERON, CALVIN Consulting Unavailable Rocio Rocio Unavailable Gieditis , Andrius Conner Attending Unavailable Giedraitis , Andrius Vchasity Attending Unavailable Giedraitis , Andrius Vytautoli Attending Unavailable Giedraitis , Andrius Vytautas Attending Unavailable Giedraitis , Andrius Vytautas Attending Unavailable Orzech, Lazara X Attending Unavailable Orzech, Lazara X Admitting Unavailable Orzech, Lazara X Attending Unavailable Allergies Allergy Classification Reported Allergen(s) Allergy Type Date of Onset Reaction(s) Facility Quinolones (antibiotic) (1 source) levoFLOXacin; Translations: [levofloxacin] Drug Allergy Irritation (qualifier value) [facility] (3 sources) levoFLOXacin; Translations: [levofloxacin] Drug Allergy Irritation (qualifier value) [facility] Medications Current Medications Medication Drug Class(es) Dates Sig (Normalized) Sig (Original) Aspirin (3 sources) Platelet Aggregation Inhibitor, Nonsteroidal Anti-inflammatory Drug Start: 09-26-2022 aspirin Start Date: 09/26/22 Status: Ordered atorvastatin 40 mg oral tablet (5 sources) HMG-CoA Reductase Inhibitor Start: 03-13-2019 atorvastatin 40 mg oral tablet Refills(s) 0 Start Date: 03/13/19 Status: Ordered brimonidine (4 sources) alpha-Adrenergic Agonist Start: 03-13-2019 brimonidine ophthalmic [...] affected eye Ophthalmic Twice a day Active cetirizine hydrochloride 10 mg oral tablet (2 sources) Histamine-1 Receptor Antagonist Start: 02-11-20 cetirizine 10 mg Tab Refills(s) 0 Start Date: 02/11/24 Status: Ordered dorzolamide (5 sources) Carbonic Anhydrase Inhibitor Start: 03-13-20 take [...] day(s), # 20 cap(s), Refills(s) 0, Pharmacy: [id number], 160, cm, 09/26/22 13:50:00 EST, Height/Length Dosing, 97.3, kg, 09/26/22 13:50:00 EST, Weight Dosing Start Date: 09/26/22 Stop Date: 10/06/22 Status: Ordered hyoscyamine sulfate 0.125 mg sublingual tablet (2 sources) Start: 02-11-2024 hyoscyamine 0.125 mg sublingual Tab Refills(s) 0 Start Date: 02/11/24 Status: Ordered icosapent ethyl 1000 mg oral capsule (5 sources) Start: 03-13-2019 Vascepa 1 g oral capsule Refills(s) 0 Start Date: 03/13/19 Status: Ordered take 2 capsules by m outh every twelve hours Vascepa 1 GM 2 capsules with food Orally Twice a day Active latanoprost (5 sources) Prostaglandin Analog Start: 03-13-2019 take 1 [...] day Active lisinopril 10 mg oral tablet (5 sources) Angiotensin Converting Enzyme Inhibitor Start: 03-13-2019 lisinopril 10 mg oral tablet Refills(s) 0 Start Date: 03/13/19 Status: Ordered meloxicam 15 mg oral tablet (7 sources) Nonsteroidal Anti-inflammatory Drug Start: 04-09-2017 meloxicam 15 mg oral tablet Refills(s) 0 Start Date: 03/13/19 Status: Ordered metoprolol tartrate 25 mg oral tablet (5 sources) beta-Adrenergic Whit Start: 03-13-2019 take 1 tablet by mouth once daily Lopressor 25 mg oral tablet 25 mg = 1 tab(s), Oral, Daily, Refills(s) 0 Start Date: 03/13/19 Status: Ordered take 1 tablet by lavern every twelve hours Metoprolol Tartrate 25 MG 1 tablet with food Orally Twice a day Active Multi Vitamin+ (3 sources) Start: 09-26-2022 Multi Vitamin+ Start Date: 09/26/22 Status: Ordered netarsudil 0.2 mg/ml ophthalmic solution (4 sources) Rho Kinase Inhibitor Start: 03-13-2019 Rhopressa 0.02% ophthalmic solution Refill(s) 0 Start Date: 03/13/19 Status: Ordered Start: 03-13-2019 Rhopressa 0.02 % ophthalmic solution Refill(s) 0 Start Date: 03/13/19 Status: Ordered tamsulosin hydrochloride 0.4 mg oral capsule (4 sources) alpha-Adrenergic Whit Start: 02-11-2024 tamsu losin 0.4 mg Cap 0.4 mg = 1 cap(s), BID, Refills(s) 0 Start Date: 02/11/24 Status: Ordered Start: 03-07-2022 take 1 capsule by mo [facility] twice daily tamsulosin 0.4 mg Cap 0.4 mg = 1 cap(s), Oral, BID, # 180 cap(s), Refills(s) 3, Pharmacy: [address], 160, cm, 10/16/21 14:26:00 EST, Height/Length Dosing, 94.4, kg, 10/16/21 14:26:00 EST, Weight Dosing Start Date: 03/07/22 Status: Ordered 12 hr timolol 5 mg/ml ophthalmic solution (1 source) beta-Adrenergic Whit Start: 03-13-2019 timolo l Opth 0.5% Yvette 5 mL Refill(s) 0 Start Date: 03/13/19 Status: Ordered timolol Opth 0.5% Yvette 5 mL (3 sources) Start: 03-13-2019 timolol Opth 0 .5% Yvette [...] 6-8 hrs for 30 day(s) December, Not-Taking rivaroxaban 10 mg oral tablet (1 source) Factor Xa Inhibitor Start: 12-25-2016 take 1 tablet by mouth every twenty-four hours Xarelto 10 MG 1 tablet Orally Once a day for 30 day(s) December, Not-Taking Problems Active Problems Problem Classification Problem Date Documented Da te Episodic/Chronic Biliary tract disease (4 sources) Biliary calculus 03-13-2019 Episodic Calculus of urinary tract (7 sources) Kidney stone; Translations: [Calculus of kidney] Onset: 04-16-2022 Episodic Cancer of colon (4 sources) Carcinoma of colon, stage I 03-13-2019 Chronic Cancer of colon (2 sources) Personal history of other malignant neoplasm of large intestine; Translations: [History of malignant neoplasm of colon] Onset: 09-20-2022 Episodic Congestive heart failure; nonhypertensive (1 source) Unspecified diastolic (congestive) heart failure; Translations: [UNSPECIFIED DIASTOLIC HEART FAILURE] Onset: 09-28-2022 Chronic Coronary atherosclerosis and other heart disease (3 sources) Chronic ischemic heart disease, unspecified; Translations: [Angina pectoris, unspecified] Onset: 09-20-2022 Chronic Disorders of lipid metabolism (9 sources) Hypercholesterolemia ; Translations: [Hyperlipidemia, unspecified] Onset: 09-20-2022 03-13-2019 Chronic Essential hypertension (5 sources) Hypertensive disorder; Translations: [Essential (primary) hypertension] Onset: 09-20-2022 03-13-2019 Chronic Genitourinary symptoms and ill-defined conditions (20 sources) Nocturia; Translations: [Retention of urine] Onset: 09-18-2022 10-16-2021 Episodic Hyperplasia of prostate (7 sources) Benign prostatic hypertrophy with outflow obstruction; [...] Chronic Other diseases of bladder and urethra (7 sources) Male urethral stricture; Translations: [Unspecified urethral stricture, male, unspecified site] Onset: 04-16-2022 Episodic Other diseases of kidney and ureters (2 sources) Urinary tract obstruction; Translations: [Other obstructive and reflux uropathy] Onset: 04-16-2022 Episodic Other gastrointestinal disorders (4 sources) Scrotal mass 05-18-2019 Episodic Other male genital disorders (4 sources) Disorder of male genital organ 10-16-2021 Episodic Other male genital disorders (4 sources) Spermatocele 11-02-2019 Episodic Other male genital disorders (4 sources) Testicular mass 03-13-2019 Episodic Other nervous system disorders (1 source) Chronic pain; Translations: [Other chronic pain] Chronic Other non-traumatic joint disorders (1 source) Hip pain; Translations: [Pain in left hip] Episodic Other nutritional; endocrine; and metabolic disorders (1 source) Obese class II; Translations: [Body mass index (BMI) 36.0-36.9, adult] Onset: 04-16-2022 Chronic Other nutritional; endocrine; and metabolic disorders (4 sources) Body mass index 30+ - obesity 04-16-2022 Chronic Vanessa-; endo-; and myocarditis; cardiomyopathy (except that caused by tuberculosis or sexually transmitted disease) (4 sources) Pericarditis 03-13-2019 Episodic Residual codes; unclassified (4 sources) Sleep apnea 03-13-2019 Chronic Residual codes; unclassified (1 source) Sleep apnea, unspecified; Translations: [SLEEP APNEA UNSPECIFIED] Onset: 09-20-2022 Chronic Retinal detachments; defects; vascular occlusion; and retinopathy (4 sources) Retinal detachment 03-13-2019 Episodic Spondylosis; intervertebral disc disorders; other back problems (1 source) Low back pain; Translations: [Low back pain] Episodic Urinary tract infections (6 sources) Urinary tract infectious disease; Translations: [Urinary tract infection, site not specified] Onset: 09-20-2022 Episodic Past or Other Problems Problem Classification Problem Date Documented Da te Episodic/Chronic Coronary atherosclerosis and other heart disease (1 source) Presence of aortocoronary bypass graft; Translations: [PRESENCE AORTOCORONARY BYPASS GRAFT] Onset: 09-20-2022 Episodic Diabetes mellitus without complication (1 source) Other abnormal glucose; Translations: [OTHER ABNORMAL GLUCOSE] Onset: 09-28-2022 Episodic Other aftercare (1 source) Other termite treater helper (current) drug therapy; Translations: [OTH OUTSIDE B2B SALES CURRENT DRUG THERAPY] Onset: 09-20-2022 Episodic Other aftercare (1 source) termite treater helper (current) use of aspirin; Translations: [DETENTION CURRENT USE OF ASPIRIN] Onset: 09-20-2022 Episodic Other male genital disorders (4 sources) Hydrocele Resolved: [birth year]1989 03-13-2019 Episodic Other [...] with and (suspected) exposure to covid-19 Z20.822 Viral infection (1 source) COVID-19 Results Test Name Value Interpretation Reference Range Facility Coding Summary.on 02-19-2024 Coding Summary. LUJPVomx94ZXm1uRz+PG hlYWQ+YZ3SUOXqA56jqM FiiG8yE7BUBYuJUslaEI MKWTwPGlScdoIcUT9ohW NjZXJu IC8+VK9bVDOeUlhrxBTd r2U9lKG9L69zge4xMYki wYE7HPNcAbWtnuvyt1pp eGu2PTneNjowEjBo LSCukE06SRX3oT79Zm46 pWVoaISgv2aweUv7PuQu EDDbAFT8lOcmBEgxz7Ce GUJmX81ebJKxk5C6 IGNvbGxhcHNlOyBlbXB0 jR9rEDhurawqm0bzcozj Yzc2eb40bAVkz7H1tTP0 K4UouvV8QXHfiAGp UspxsMEFkL7uovqif3is zuyiRzQhHWTjIHu2VRh5 FJRabBdoVnKnDA34TUW1 OGQdraOkO9WaKWMw bSbqDuB9z3G8Tr2HK5IO LsjlQ1LZKMHFCTphzAY+ BC03xx16D4GaWebkXnl4 SSDoCUM2aXM3zJ8r AQViIItuu8S1mOY9I5Hg fmDetd3mm7jvYRPiRUmt U51syKXkb4Y9PNJxuXM9 VCNcyZgzTeQupV18 Oyc+ZEEazUkig0MjLgpb n5xgi3xemDc2ZiyeKUGm iwNojPcoZSX2l0VkIz2a FDTgmJY7jBW2vG8m AuHbRmJ6ZDkpR348CbMm aBFeZphzZ02oK7IhsCV+ RVOaJtg4TIAsfUubFK0w R3PqDQIpysxxaWZa yVixCJ4sRVVoirniKSMi uG8sUSJdS4g4LlKoZwS8 MOwaI3QbNOLtkoykRg91 zG7qNmKeXnD1PRge L9SyexL6IYApyVHiALlj MVG2G24om4V2DIRyZWWg DDG7eSG5yU5wwVosfrto bGVmdDsgdmVydGlj DWdaISmdL315HPKyuVif PkNvZGluZyBEYXRlOiAg MDYvMjYvMjAyNDwvdGQ+ ZXViALC7tWrsHSJj lPTrIOetZl0jzZutyGfo DG3hZPRqghobEHUalU3v FKXtsKDqsVznFE9fYAXx btucp846IzPtOTP4 BLEgyAWzU9NleX5qQaKs YTXrKWQwE3TgqIMuUXgl O715BXcqWaJ2MCXtouQt U4HzMSXrhValJdZ0 n5O6Jd8Kj8JwdccbS1Oq xRUmUmPgLctgVFc2H0Fk PjwvdHI+OV43VWMoCN82 LKo4HJJ8mTziQJdn THZlP2BwxT2aRyPlQTJo ZGRkOyc+PHRhYmxlIHdp ZHRoPScxMDAlJyBzdHls SK8vYe0eVHJrJLPy gUyacLOnGhDeg0vfKYHh QGysMD1erSnwH9KfyHG6 GPEpg1s1Id02R29aX1Jf dXA+ROVcwGU2oWD6 pX5gQfQyUdB1CVnlL818 KeRhwZEtCxbti9wwk2wk mPp7EiV6OWGfcmBmmXyk IGP1i0GrVk15J87c IHdpZHRoPSIxNSUiIHZh kCmkjn6tsZ5qGh8+PGNv pKV0zOK4tN4jWnPzVhJ1 LRrsD877SiEckGOb Wxwux7fiq4itgKy2XaPr GXOpdfBppLmmHCE5s0Gp Ff07U3DntAejf3GjXeh3 tj18zLCka5O5yBV7 H1KxOLZewzdepQGylKbc XW6xPLMzvujeDWBotJ7b IAUtW6o7CxIrKpS5NPnj P0KsltW1SJDwaHBi PKQtoPLYnB7wtgqjc3mq oholVlEpOWVvDCl9XFn3 AOWhbLccNgGbWXO9ViI1 BKI0rNDmpE6iwRsc uajrkD4fPmq+NVH5qMCx aOOVJW4uRyfbuMI+PHRk KDO8bWipGXnvOKQnkH6w MKEgI0u1FrLiSbB7 LBrbN8DzctB9TCKyxOEc WWAsiMRHhI3wcjifm7ya bfgfMbTqVJTlHKi8XXu1 LWFsaWduOiBsZWZ0 CvO0HKT3zXMvsD0diUzd itpisT2sEax+QmlydGgg IKO7WLr3F8TlFem1NHOc qGczIJ5icWObWKif Cc5crMjulOrhCI4lLLZk jkaqw189MsOvu2ipBJBy fWMeGBtxQOE9F67je2R3 IYLbCCAsBSR5eYD7 qI4rtLqutilvxHQboTnn wnDwjCqhBUqrRXyzB626 CROzyGgiOjLqMZl9A6Ow Fno4BSPtqReyXD2h jLJkYFcoWa9meStczYba BO7cERMwgauzl300EnMi d3cyYISsnIWeFGdySXV7 P70jn8F6EEEsBTCk LLO4yIW5bK4qjIgmruow bGVmdDsgdmVydGljYWwt IXrnT333SWIipMjnDoNz nCl8P5LvStq5WFDa mNadIE3piNQcKRuiXh0u lHmpoUejKW8xUQIfpbmn q387NlUly9wxCEUlxVRz JGhyUTN0K07fo1I0 CJGwKQOfZLH0lVT0lM2t bGlnbjogbGVmdDsgdmVy pGhzEPvmBUyeC761OCQz cDsnPlBhdGllbnQg NKehLWc6U9WfYbkmkXX+ SC37YBXlGZ18xDUlnSWy c4sigTg9SuDcBTCdPOI9 hWztZEkor0WaMFTa R07pdBHqc0G6YXGlmKql cZGsFgSqhJX4iM9yTPkd uwaoi0vewonkDhkdm3no ba30hM21P00nLEhq ZHRoPSIzMCUiIHZhbGln lo2eiH4zGz6+PGNvbCB3 iEY0wF2gDHQdHwO5ACnc A944BfGycUIoWxfa b2hhk0mueIi3AgX1ZOPa adJxoGpfLFA6o9AvZe02 Y32pRVhpSCUfSCSnCTYk QPKqdUdzfh0xsC3f Ii8+ZDBycZG8ySD5uX3k BrHbUvZ1LOavD670SrPe oZTgLwylI17wV5ZqkFG+ XWJtHsl7MCDrmKkc HN1zvPHyISwvSc4bQMX6 OnVcMhEdTOcsK2ZaAXNy ahqbvvzpfCA1QDXqTCOg mW91Zl2pcJsbDYMe bIPVbL8awvhjz8gacatx TxOcSRDsHAr0YXk2WSFq yDlmNiMhZWC6KdT3OZR6 sPHyzN8jzStrtpwy jA2qI9HpMSUzpdnaIo85 aL3uQoMmVbY5GCrbDtm+ L1SETZ9GSTGQT919S6Nq Oij8LDRtoImkRJ0i vRBxBSdiIu6qyTfsyYcy HX6eNFDbltggLSBjiQ4i SDBuaWMbxAebII8jBSQt zaykt858YbKdFPD6 VEVinKElY6MnvR8oZkEr TVIoSHAoO8SrlVQhLFde N173XDegNfZ3XIRuepAm H6IsPQAzhKyoGdF8 c9R4Ao3sSU3jLE2uNJBm MM29JE10pXXmo5U6sSE6 K9SdJBZjnwthfmxsaYN7 TRKtQXOdxQ67uYYw FXliHc7gb5Y2x626BLBc HTRviG55Xv2qoApqOETg bGCCkH7fmycnb1nmxjqr AmKtCDEmGOn6ZTa5 MUKtjTvkBmBvOWL6SyY2 XUG8qFWgsY2geNxzbhxk hE5uJzo+ODEgWWVhcnM8 D6WpFle1KGUrmNxm XT4nbSUgTAwtQp5tpKjh xGtbIV4vYOZtczvkUZYl dW8cVIQrtGBpdGetZJ0g ZYXnwbgwt495QdNu LRT8PSCxkIViF2VjsK3i FdHuYPTnQGKjR2JizNTs EFrsO880OXvwXaG7UFYt smYiZ3TeSSFywUjc SmO8l5Z2Hf2PPUoeCF06 NF92qBLgk7S3aXK3D6Rg ZVCeaqshzqlghGA9USFo HXFgeW05aNQhUKud Ce6fi1J9b296IIGwHNQd pH23Gv2gzWrcRQWdmDZK lY9bmxayw8soqwxgQoCi KUIcWYx6OOe2KIAb sUqxToApQDB3RtW9AGR5 mQAtqR5rzLhzfbxpuD1i Oyc+TPJvCIZbm6Yzf7Vu YT29YB40M9NxTfpm dGFibGU+PHRhYmxlIHdp ZHRoPScxMDAlJyBzdHls TL7hNd0gFKLxTLGxoJsu oVPjBrJgq8roWNNj UYkuPO0apKfpL4UdnDB3 OXWfu6p1Fm53A64zB6Hs dXA+FDWmaZN5zJO8dL3w GhHwHfB2CWqvU542 ZsQrcSZcLrgsv7wfj2pd lHg0QxAqUHDlxdEyeNzv BCE8p0CwWs50M47nDYjy ZHRoPSIyMCUiIHZh uQlins7xfD1fIq8+PGNv tNC0dZK6yL8iNxVdNuM8 ZNpsC077UaWhqDQcCcbd R93pN5KyuYN+PHRy Fal3TPMdzYjnVX7etLQr CXrkGj2nMHL6TcMxVmYt HQwoS9UpHSSdsoddytzs fXE2PEQxIPNyvU95 Cu5obAquQx0cZHKxVQI9 EBQknNUgZ7UkkE6oMeAw ZIXaSSKuO0AptBYlSXwd E893ZPebIpS6JNCe vkZfQ7WsMIFbaGcaPbO4 q2J7Zl7DnApmmKAvUA1c CxYeVQq7C2LzUwx5DBYn sJooQO2lcDZbNZfl Pd4ssKmwrNweGJ8kGGTf ujvwy754TdTjs1hbZROf kAQfZOojGVE2V87ng9U0 BYNaEUQkYMU7bAI2 hA3fyZoezayjeRGrfPgu eqHnsQxsQSorXNurD709 YQPvxStaXfGOYfo5Z4Vo Ahm3YBMkeXkmSQ4h nFVdPCjvWi2tnCqehUtn MX0jLBMxbwoug940RiKx y0qdFDGbrVLiZExbXVP8 G64bu0S1ISAiEJNu XSL8mKC1qJ9mtXgrprks bGVmdDsgdmVydGljYWwt KTniM341HKJlnSemKt7V Kqs9F3MyNtv0VDUv yCdtFZ1kmXDbYKfjPr6c iOrqxCmmEZ2jHKOxkrqf i349ImAeq2maGAMiqVIn OYkhROU6R55ab7D1 DELeISDiIXN6oFY4yQ6u bGlnbjogbGVmdDsgdmVy dOsfYBnsUMgxY483TJIn cDsnPlBheWVyOjwv dGQ+PI19mv88S2KkVktg Bhr1ERIxSEF3jHS7fD7c HKSjUEgnx8V8rMS3Z1Jv xmWhpi9pl2nfUWOw XCitG20frEScf (more content not included)... Normal [facility] C Urineon 02-13-2024 Bacteria identified Cx Nom (U) Microbiology PROCEDURE: Urine Culture [R1] SOURCE: U Random BODY SITE: COLLECTED DATE/TIME: 02/11/2024 10:06 EDT RECEIVED DATE/TIME: 02/11/2024 18:24 EDT START DATE/TIME: 02/11/2024 18:24 EDT FREE TEXT SOURCE: RENA Lino APRN-Alessandro, RENA Lino APRN-Alessandro, Lazara Haile X FINAL REPORTS Final Report [] Verified Date/Time: 02/13/2024 09:41 EDT >100,000 cfu/ml Escherichia coli SUSCEPTIBILITY RESULTS LEGEND: S=Susceptible, N/R=Not Reported, Blank=Data not available, or drug not advisable or tested, I=Intermediate, ESBL=Extended spectrum beta-lactamase, R=Resistant, TFG=Thymidine-depend ent strain, RAFAEL=Beta-lactamase positive, CARIN=mcg/m;(mg/L), S*=Predicted susceptible interp, R*=Predicted resistant interp EC Antibiotic CARIN Dilutn CARIN Interp Ampicillin <=8 S Ampicillin/ <=8/4 S Sulbactam Aztreonam <=4 S Cefazolin <=2 S Cefepime <=2 S Ceftazidime <=1 S Ceftazidime/ <=8 S Avibactam Ceftriaxone <=1 S Cefuroxime <=4 S Ciprofloxacin <=0.25 S Ertapenem <=0.5 S Gentamicin <=2 S Levofloxacin <=0.5 S Meropenem <=1 S Nitrofurantoin <=32 S Piperacillin/ <=8 S Tazobactam Tetracycline <=4 S Tobramycin <=2 S Trimethoprim/ <=2/38 S Sulfa Performing Locations R1: This test was performed at: [facility], [address] [place] [address], [facility]- , , [facility] Comment on above: Performed By: #### [id number] #### [facility] [address] [place] [id number] Screenson 02-12-2024 Screens [id number] [facility] Ambulatory Visit Summaryon 0 02-11-2024 Ambulatory Visit Summary KYLER RICHARD :1940 Visit Date:02/11/2024 Ambulatory Visit Instructions Your Diagnosis BPH with urinary obstruction Urethral stricture in male UTI (urinary tract infection) Gross hematuria History of colon cancer Your Care Team Attending Physician - Zoie FOX, KIM, Lazara Echavarria Primary Care Physician - Eliana Ba MD This Is Your Medications List Contact prescribing physician if questions or concerns aspirin atorvastatin (atorvastatin 40 mg oral tablet) brimonidine ophthalmic (brimonidine ophthalmic 0.2% solution) cetirizine (cetirizine 10 mg Tab) dorzolamide ophthalmic (dorzolamide 2% ophthalmic solution) hyoscyamine (hyoscyamine 0.125 mg sublingual Tab) icosapent (Vascepa 1 g oral capsule) latanoprost ophthalmic (latanoprost ophthalmic 0.005% solution) lisinopril (lisinopril 10 mg oral tablet) meloxicam (meloxicam 15 mg oral tablet) metoprolol (Lopressor 25 mg oral tablet) multivitamin (Multi Vitamin+) netarsudil ophthalmic (Rhopressa 0.02% ophthalmic solution) tamsulosin (tamsulosin 0.4 mg Cap) timolol ophthalmic (timolol Opth 0.5% Yvette 5 mL) Procedures Performed Cystoscope (03/17/2019), CABG - Coronary artery bypass graft, Cardiac catheterisation, Cataract extraction, Hip replacement, Hydrocelectomy, Inguinal herniorrhaphy, Large bowel resection, Rotator cuff repair, Tonsillectomy and adenoidectomy. Discharge Vitals Heart Rate (Peripheral) 71 Blood Pressure 138/84 Height 160 cm Height 63 in Weight 95.5 kg Weight 210.1 lb BMI 37.3 What to do next You Need to Schedule the Following Appointments Follow Up with JAYDON COE, TANIYA Cheng When: Where: [facility] [address] , [place] [address]- [phone] Medications What How Much When Instructions Unchanged aspirin Contact prescribing physician if questions or concerns Unchanged atorvastatin (atorvastatin 40 mg oral tablet) Contact prescribing physician if questions or concerns Unchanged brimonidine ophthalmic (brimonidine ophthalmic 0.2% solution) Contact prescribing physician if questions or concerns Unchanged cetirizine (cetirizine 10 mg Tab) Contact prescribing physician if questions or concerns Unchanged dorzolamide ophthalmic (dorzolamide 2% ophthalmic solution) 1 Drops Ophthalmic 3 times a day Contact prescribing physician if questions or concerns Unchanged hyoscyamine (hyoscyamine 0.125 mg sublingual Tab) Contact prescribing physician if questions or concerns [...] prescribing physician if questions or concerns Unchanged multivitamin (Multi Vitamin+) Contact prescribing physician if questions or concerns Unchanged netarsudil ophthalmic (Rhopressa 0.02% ophthalmic solution) Contact prescribing physician if questions or concerns Unchanged tamsulosin (tamsulosin 0.4 mg Cap) 1 Capsules 2 times a day Contact prescribing physician if questions or concerns Unchanged timolol ophthalmic (timolol Opth 0.5% Yvette 5 mL) Contact prescribing physician if questions or concerns Allergies levoFLOXacin (Irritation) Problems Ongoing - Any problem that you are currently receiving treatment for. BMI 36.0-36.9,adult BPH with urinary obstruction Cholelithiases Elevated cholesterol Gross hematuria Hydrocele Hypertension Kidney stone Left retinal detachment Nocturia Pericarditis Scrotal cyst Sleep apnea Spermatocele Testicular mass Urethral stricture in male Urinary retention UTI (urinary tract infection) UTI symptoms Historical - Any problem that you are no longer receiving treatment for. Colon cancer stage 1 Hydrocele Patient Survey You may receive a survey via text or e-mail asking about your office visit. Please share your experience with us by completing your survey. We appreciate your feedback and thank you for choosing us for your care. Normal [facility] Patient Educationon 02-11-20 Patient Education Urology Hematuria, Adult Hematuria is blood in the urine. Blood may be visible in the urine, or it may be identified with a test. This condition can be caused by infections of the bladder, urethra, kidney, or prostate. Other possible causes include: ? Kidney stones. ? Cancer of the urinary tract. ? Too much calcium in the urine. ? Conditions that are passed from parent to child (inherited conditions). ? Exercise that requires a lot of energy. Infections can usually be treated with medicine, and a kidney stone usually will pass through your urine. If neither of these is the cause of your hematuria, more tests may be needed to identify the cause of your symptoms. It is very important to tell your health care provider about any blood in your urine, even if it is painless or the blood stops without treatment. Blood in the urine, when it happens and then stops and then happens again, can be a symptom of a very serious condition, including cancer. There is no pain in the initial stages of many urinary cancers. Follow these instructions at home: Medicines ? Take qgkd-xoa-dwkamoi and prescription medicines only as told by your health care provider. ? If you were prescribed an antibiotic medicine, take it as told by your health care provider. Do not stop taking the antibiotic even if you start to feel better. Eating and drinking ? Drink enough fluid to keep your urine pale yellow. It is recommended that you drink 3?4 quarts (2.8?3.8 L) a day. If you have been diagnosed with an infection, drinking cranberry juice in addition to large amounts of water is recommended. ? Avoid caffeine, tea, and carbonated beverages. These tend to irritate the bladder. ? Avoid alcohol because it may irritate the prostate (in males). General instructions ? If you have been diagnosed with a kidney stone, follow your health care provider's instructions about straining your urine to catch the stone. ? Empty your bladder often. Avoid holding urine for long periods of time. ? If you are female: ? After a bowel movement, wipe from front to back and use each piece of toilet paper only once. ? Empty your bladder before and after sex. ? Pay attention to any changes in your symptoms. Tell your health care provider about any changes or any new symptoms. ? It is up to you to get the results of any tests. Ask your health care provider, or the department that is doing the test, when your results will be ready. ? Keep all follow-up visits. This is important. Contact a health care provider if: ? You develop back pain. ? You have a fever or chills. ? You have nausea or vomiting. ? Your symptoms do not improve after 3 days. ? Your symptoms get worse. Get help right away if: ? You develop severe vomiting and are unable to take medicine without vomiting. ? You develop severe pain in your back or abdomen even though you are taking medicine. ? You pass a large amount of blood in your urine. ? You pass blood clots in your urine. ? You feel very weak or like you might faint. ? You faint. Summary ? Hematuria is blood in the urine. It has many possible causes. ? It is very important that you tell your health care provider about any blood in your urine, even if it is painless or the blood stops without treatment. ? Take [id number] and prescription medicines only as told by your health care provider. ? Drink enough fluid to keep your urine pale yellow. This information is not intended to replace advice given to you by your health care provider. Make sure you discuss any questions you have with your health care provider. Document Revised: 04/12/2021 Document Reviewed: 04/12/2021 [employer] Patient Education ? 2022 [employer]. Benign Prostatic Hyperplasia Benign prostatic hyperplasia (BPH) is an enlarged prostate gland that is caused by the normal aging process. The prostate may get bigger as a man gets older. The condition is not caused by cancer. The prostate is a walnut-sized gland that is involved in the production of semen. It is located in front of the rectum and below the bladder. The bladder stores urine. The urethra carries stored urine out of the body. An enlarged prostate can press on the urethra. This can make it harder to pass urine. The buildup of urine in the bladder can cause infection. Back pressure and infection may progress to bladder damage and kidney (renal) failure. What are the causes? This condition is part of the normal aging process. However, not all men develop problems from this condition. If the prostate enlarges away from the urethra, urine flow will not be blocked. If it enlarges toward the urethra and compresses it, there will be problems passing urine. What increases the risk? This condition is more likely to develop in men older than 50 years. What are the signs or symptoms? Symptoms of this condition include: ? Getting up often during the nig (more content not included)... Normal [facility] Urology Office/Clinic Noteon 02-11-2024 Urology Office/Clinic Note Chief Complaint 1yr HPI Staff 1 year f/u Dx: BPH with urinary obstruction, UTI, gross hematuria and urethral stricture in male Tamsulosin 0.4 mg BID. Denies visible blood in urine since last encounter. Denies UTI since last encounter. Stream continues to be weak. Ongoing for yrs. Denies pain and burning. Rare occasion of loss of bladder control. No concerns at this time. History of Present Illness I have reviewed and verified the staff HPI to be accurate for this encounter. Portions of this record may have been created with voice recognition artificial intelligence software, specifically [employer], [employer] and or I-MD. Substitutions may have occurred due to the inherent limitations of voice recognition and artificial intelligence software. Review of Systems PHQ Score Initial Depression Screen Score: 0 SCORE Physical Exam Vitals & Measurements HR: 71(Peripheral) BP: 138/84 HT: 63 in HT: 160 cm WT: 95.5 kg WT: 210.1 lb BMI: 37.3 Assessment/Plan PRW patient 1. BPH with urinary obstruction (N40.1: Benign prostatic hyperplasia with lower urinary tract symptoms) IPSS 4 (10), mild symptoms of BPH. Patient is overall pleased with his urinary symptoms at this time. s/p cysto/UD 06/15/21 - bilobar obstruction of the prostatic urethra. Currently taking tamsulosin 0.4 mg twice daily, which she is tolerating well without side effects. He would like to continue current dose, patient to call with refills. I do not believe he needs additional prostate medication given his symptom score sheet and PVR today. I did discuss with patient potential for cystoscopic evaluation of the urinary channel to assess for need for prostate procedure versus repeat dilation. He declines at this time. -Follow-up 1 year, sooner if needed. Reminder message in place. Ordered: Urine Culture Urnls Dip Stick Auto w/o Microscopy POC [id number] 2. Urethral stricture in male (N35.919: Unspecified urethral stricture, male, unspecified site) Cysto/UD 06/15/21. Had to [facility] in Jun 2022 due to difficulty urinating. [1] Patient does not recall if he had significant improvement in his stream symptoms. He reports a long time presence of weak stream. Feels that he has been emptying adequately over the last year. PVR today 108 ml We discussed cystoscopy with potential for repeat UD in order to address urinary channel, possibly improve stream. However, patient declines at this time. 3. UTI (urinary tract infection) (N39.0: Urinary tract infection, site not specified) UA today with moderate blood, small leukocytes, positive nitrites. Patient denies any episode of gross hematuria or symptoms of urinary infection at this time. He does note that he has had multiple rounds of antibiotics recently due to an ongoing upper respiratory infection. He does note he would prefer not to be treated unless he becomes symptomatic. Increase fluid intake, avoid bladder irritants. Patient to call office if becomes symptomatic. ER for any significant fever, nausea/vomiting, severe flank pain. Patient verbalizes understanding. -Send urine for culture, patient to call if he becomes symptomatic. 4. Gross hematuria (R31.0: Gross hematuria) Patient denies any episode of gross hematuria since prior office visit. 5. History of colon cancer (Z85.038: Personal history of other malignant neoplasm of large intestine) Hx of bowel resection, chemo, and radiation due to colon cancer. [2] Follow-up With When Contact Information KIM Lino APRN, Lazara Echavarria, PARVIN, URL Additional Instructions: 1 year JAYDON COE, [place] Maciel, CARLL [facility] [address], [place] [id number]- [id number] Additional Instructions: Patient Education Hematuria, Adult Benign Prostatic Hyperplasia Problem List/Past Medical History Ongoing BMI 36.0-36.9,adult BPH with urinary obstruction Cholelithiases Elevated cholesterol Gross hematuria Hydrocele Hypertension Kidney stone Left retinal detachment Nocturia Pericarditis Scrotal cyst Sleep apnea Spermatocele Testicular mass Urethral stricture in male Urinary retention UTI (urinary tract infection) UTI symptoms Historical Colon cancer stage 1 Hydrocele Procedure/Surgical History Cystoscope (03/17/2019), CABG - Coronary artery bypass graft, Cardiac catheterisation, Cataract extraction, Hip replacement, Hydrocelectomy, Inguinal herniorrhaphy, Large bowel resection, Rotator cuff repair, Tonsillectomy and adenoidectomy. Medications aspirin atorvastatin 40 mg oral tablet brimonidine ophthalmic 0.2% solution cetirizine 10 mg Tab dorzolamide 2% ophthalmic solution, 1 drop(s), OPTH, TID hyoscyamine 0.125 mg sublingual Tab latanoprost ophthalmic 0.005% solution, 1 drop(s), OPTH, Once a day (at bedtime) lisinopril 10 mg oral tablet Lopressor 25 mg oral tablet, 25 mg= 1 tab(s), Oral, Daily meloxicam 15 mg oral tablet Multi Vitamin+ Rhopressa 0.02% (more content not included)... Normal [facility] Comment on above: Result Comment: Elec tronically Signed By: KIM Lino APRN, Lazara Echavarria\.br\Date and Time Signed: 02/11/24 10:41 EDT COVID/FLU RT-PCRon SARS-CoV-2 (COVID-19) RNA TERRIE+probe Ql (Unsp spec) Positive [employer] Other COVID/FLU RT-PCR Negative [employer] Other XR KNEE RT 3Von 01-23-2023 XR KNEE RT 3V EXAM: XR KNEE RT 3V HISTORY: Osteoarthritis of knee COMPARISON: None TECHNIQUE: 3 views FINDINGS: No acute fracture or dislocation. Moderate to severe degenerative changes. Unremarkable soft tissues. IMPRESSION: Moderate to severe degenerative changes. Electronically authenticated by: CALVIN CAMERON Date: 2023-01-23 13:29 Normal [facility] INSULINon 09-25-2022 Insulin 6.0 uIU/mL Normal 2.6-24.9 [facility] Comment on above: Performed By: #### I NSULIN #### [facility] [address] [place] [address] Dr. Wally Zapien BNPon 09-24-2022 Natriuretic peptide B (Bld) [Mass/Vol] 110.0 pg/mL Normal <=1,800.0 [facility] Comment on above: Performed By: #### U RCX #### [facility] [address] [place] [address] Dr. Wally Zapien CBC AUTO DIFFon 09-24-2022 BASO # 0.0 103/ul Normal 0.0-0.1 [facility] Comment on above: Performed By: #### C BC #### [facility] [address] [place] [address] Dr. Wally Zapien Basophils/100 WBC (Bld) 1.0 % Normal 0.2-2.0 [facility] Comment on above: Performed By: #### C BC #### [facility] [address] [place] [address] Dr. Wally Zapien EO # 0.2 103/ul Normal 0.0-0.7 [facility] Comment on above: Performed By: #### C BC #### [facility] [address] [place] [address] Dr. Wally Zapien Eosinophils/100 WBC (Bld) 4.2 % Normal 0.9-7.0 [facility] Comment on above: Performed By: #### C BC #### [facility] [address] [place] [address] Dr. Wally Zapien Erythrocyte distribution width (RBC) [Ratio] 12.5 % Normal 11.0-15.0 [facility] Comment on above: Performed By: #### C BC #### [facility] [address] [address] [address] Wally Zapien Hematocrit (Bld) [Volume fraction] 43.7 % Normal 42.0-54.0 [facility] Comment on above: Performed By: #### C BC #### [facility] [address] [place] [address] Dr. Wally Zapien Hemoglobin (Bld) [Mass/Vol] 15.4 g/dL Normal 14.0-18.0 [facility] Comment on above: Performed By: #### C BC #### [facility] [address] [place] [address] Dr. Wally Zapien IG # 0.02 10e3/ul Normal 0.00-0.03 [facility] Comment on above: Performed By: #### C BC #### [facility] [address] [place] [address] Dr. Wally Zapien IG % 0.5 % Normal 0.0-0.5 [facility] Comment on above: Performed By: #### C BC #### [facility] [address] [place] [address] Dr. Wally Zapien LYMPH # 1.7 103/ul Normal 1.2-3.8 [facility] Comment on above: Performed By: #### C BC #### [facility] [address] [place] [address] Dr. Wally Zapien Lymphocytes/100 WBC (Bld) 42.6 % Normal 20.5-60.0 [facility] Comment on above: Performed By: #### C BC #### [facility] [address] [place] [address] Dr. Wally Zapien MANUAL DIFF REQ NO Normal [facility] Comment on above: Performed By: #### C BC #### [facility] [address] [place] [address] Dr. Wally Zapien MCH (RBC) [Entitic mass] 31.6 pg Normal 25.9-34.0 [facility] Comment on above: Performed By: #### C BC #### [facility] [address] [address] [address] Wally Zapien MCHC (RBC) [Mass/Vol] 35.2 g/dL Normal 29.9-35.2 [facility] Comment on above: Performed By: #### C BC #### [facility] [address] [address] [address] Wally Zapien MCV (RBC) [Entitic vol] 89.5 fL Normal 80.0-94.0 [facility] Comment on above: Performed By: #### C BC #### [facility] [address] [address] [address] Wally Zapien MONO # 0.4 103/ul Normal 0.3-0.8 [facility] Comment on above: Performed By: #### C BC #### [facility] [address] [place] [address] Dr. Wally Zapien Monocytes/100 WBC (Bld) 9.2 % Normal 1.7-12.0 [facility] Comment on above: Performed By: #### C BC #### [facility] [address] [address] [address] Wally Zapien NEUT # 1.7 103/ul Normal 1.4-6.5 [facility] Comment on above: Performed By: #### C BC #### [facility] [address] [place] [address] Dr. Wally Zapien Neutrophils/100 WBC (Bld) 42.5 % Critically low 43.0-75.0 [facility] Comment on above: Performed By: #### C BC #### [facility] [address] [address] [address] Wally Zapien Platelet mean volume (Bld) [Entitic vol] 9.9 fL Normal 9.5-13.5 [facility] Comment on above: Performed By: #### C BC #### [facility] [address] [address] [address] Wally Zapien PLT 149 103/ul Critically low 150-450 [facility] Comment on above: Performed By: #### C BC #### [facility] [address] [place] [address] Dr. Wally Zapien RBC 4.88 106/ul Normal 4.70-6.10 [facility] Comment on above: Performed By: #### C BC #### [facility] [address] [place] [address] Dr. Wally Zapien WBC 4.0 103/ul Normal 4.0-11.0 [facility] Comment on above: Performed By: #### C BC #### [facility] [address] [place] [address] Dr. Wally Zapien CULTURE URINEon 09-24-2022 CULTURE URINE Culture Observations: LIGHT GROWTH OF MIXED SKIN GENNA. NO POTENTIAL PATHOGENS SEEN. Normal [facility] Comment on above: Performed By: #### U RCX #### [facility] [address] [place] [address] Dr. Wally Zapien FREE THYROXINE INDEX T7on FTI 2.52 Normal 1.30-4.50 [facility] Comment on above: Performed By: #### U RCX #### [facility] [address] [place] [address] Dr. Wally Zapien T3U 36.0 % Normal 33.0-40.0 [facility] Comment on above: Performed By: #### U RCX #### [facility] [address] [place] [address] Dr. Wally Zapien T4 [Mass/Vol] 7.00 ug/dL Normal 4.50-12.10 [facility] Comment on above: Performed By: #### U RCX #### [facility] [address] [place] [address] Dr. Wally Zapien GLYCOHEMOGLOBIN A1Con 2022 ADA RECOMMENDATION SEE BELOW Normal [facility] Comment on above: Result Comment: ADA RECOMMENDED LIMIT 4.0 - 6.0 ADA THERAPEUTIC TARGET < 7.0 ACTION SUGGESTED > 7.0 Performed By: #### A 1C #### [facility] [address] [place] [address] Dr. Wally Zapien Glucose [Mass/Vol] 123 mg/dL Normal [facility] Comment on above: Performed By: #### A 1C #### [facility] [address] [address] [address] Wally Zapien HbA1c (Bld) [Mass fraction] 5.9 % Normal 4.5-6.2 [facility] Comment on above: Performed By: #### A 1C #### [facility] [address] [place] [address] Dr. Wally Zapien LIPID PROFILEon 09-24-2022 CHOL-HDL RATIO NORM SEE BELOW Normal [facility] Comment on above: Result Comment: 3.3 - 4.4 LOW RISK 4.4 - 7.1 AVERAGE RISK 7.1 - 11.0 MODERATE RISK >11.0 HIGH RISK Performed By: #### U RCX #### [facility] [address] [place] [address] Dr. Wally Zapien Cholesterol [Mass/Vol] 117 mg/dL Normal <=200 [facility] Comment on above: Performed By: #### U RCX #### [facility] [address] [place] [address] Dr. Wally Zapien Cholesterol in HDL [Mass/Vol] 38 mg/dL Critically low 40-60 [facility] Comment on above: Performed By: #### U RCX #### [facility] [address] [place] [address] Dr. Wally Zapien Cholesterol in LDL [Mass/Vol] 32.6 mg/dL Normal [facility] Comment on above: Performed By: #### U RCX #### [facility] [address] [address] [address] Wally Zapien Cholesterol.total/Ch olesterol in HDL [Mass ratio] 3.1 {ratio} Normal [facility] Comment on above: Performed By: #### U RCX #### [facility] [address] [place] [address] Dr. Wally Zapien HDL NORMAL > or = 60 mg/dl - LOW CARDIOVASCULAR RISK <40 mg/dl - HIGH CARDIOVASCULAR RISK Normal [facility] Comment on above: Performed By: #### U RCX #### [facility] [address] [place] [address] Dr. Wally Zapien LDL CALC NORMAL SEE BELOW Normal [facility] Comment on above: Result Comment: <100 mg/dl OPTIMAL 100 - 129 mg/dl NEAR OR ABOVE OPTIMAL 130 - 159 mg/dl BORDERLINE HIGH 160 - 189 mg/dl HIGH >190 mg/dl VERY HIGH Performed By: #### U RCX #### [facility] [address] [place] [address] Dr. Wally Zapien Triglyceride [Mass/Vol] 232 mg/dL Critically high <=150 [facility] Comment on above: Performed By: #### U RCX #### [facility] [address] [address] [address] Wally Zapien VLDL CALC 46.4 mg/dL Normal [facility] Comment on above: Performed By: #### U RCX #### [facility] [address] [place] [address] Dr. Wally Zapien PROF 14(COMP METB)on 023 Albumin [Mass/Vol] 3.8 g/dL Normal 3.4-5.0 [facility] Comment on above: Performed By: #### B MOLDING SANDER, T7, LIPID, TSH, CMP, URIC #### [facility] [address] [place] [address] Dr. Wally Zapien Albumin/Globulin [Mass ratio] 1.2 {ratio} Normal [facility] Comment on above: Performed By: #### B MOLDING SANDER, T7, LIPID, TSH, CMP, URIC #### [facility] [address] [place] [address] Dr. Wally Zapien ALP [Catalytic activity/Vol] 80 U/L Normal 46-116 [facility] Comment on above: Performed By: #### B MOLDING SANDER, T7, LIPID, TSH, CMP, URIC #### [facility] [address] [place] [address] Dr. Wally Zapien ALT [Catalytic activity/Vol] 34 U/L Normal 16-63 [facility] Comment on above: Performed By: #### B MOLDING SANDER, T7, LIPID, TSH, CMP, URIC #### [facility] [address] [place] [address] Dr. Wally Zapien Anion gap [Moles/Vol] 11.3 mmol/L Normal [facility] Comment on above: Performed By: #### B MOLDING SANDER, T7, LIPID, TSH, CMP, URIC #### [facility] [address] [place] [address] Dr. Wally Zapien AST [Catalytic activity/Vol] 24 U/L Normal 15-37 [facility] Comment on above: Performed By: #### B MOLDING SANDER, T7, LIPID, TSH, CMP, URIC #### [facility] [address] [place] [address] Dr. Wally Zapien Bilirubin [Mass/Vol] 1.0 mg/dL Normal 0.2-1.0 [facility] Comment on above: Performed By: #### B MOLDING SANDER, T7, LIPID, TSH, CMP, URIC #### [facility] [address] [place] [address] Dr. Wally Zapien Calcium [Mass/Vol] 8.5 mg/dL Normal 8.5-10.1 [facility] Comment on above: Performed By: #### B MOLDING SANDER, T7, LIPID, TSH, CMP, URIC #### [facility] [address] [place] [address] Dr. Wally Zapien Chloride [Moles/Vol] 105 mmol/L Normal 98-107 [facility] Comment on above: Performed By: #### B MOLDING SANDER, T7, LIPID, TSH, CMP, URIC #### [facility] [address] [place] [address] Dr. Wally Zapien CO2 [Moles/Vol] 28.6 mmol/L Normal 21.0-32.0 [facility] Comment on above: Performed By: #### B MOLDING SANDER, T7, LIPID, TSH, CMP, URIC #### [facility] [address] [place] [address] Dr. Wlaly Zapien Creatinine [Mass/Vol] 0.74 mg/dL Normal 0.70-1.30 [facility] Comment on above: Performed By: #### B MOLDING SANDER, T7, LIPID, TSH, CMP, URIC #### [facility] [address] [place] [address] Dr. Wally Zapien EGFR-AF GUAMANIAN >60 Normal >=60 [facility] Comment on above: Performed By: #### B MOLDING SANDER, T7, LIPID, TSH, CMP, URIC #### [facility] [address] [address] [address] Wally Zapien EGFR-NON AF GUAMANIAN >60 Normal >=60 [facility] Comment on above: Performed By: #### B MOLDING SANDER, T7, LIPID, TSH, CMP, URIC #### [facility] [address] [address] [address] Wally Zapien Globulin (S) [Mass/Vol] 3.2 g/dL Normal [facility] Comment on above: Performed By: #### B MOLDING SANDER, T7, LIPID, TSH, CMP, URIC #### [facility] [address] [place] [address] Dr. Wally Zapien Glucose [Mass/Vol] 102 mg/dL Normal 74-106 [facility] Comment on above: Performed By: #### B MOLDING SANDER, T7, LIPID, TSH, CMP, URIC #### [facility] [address] [place] [address] Dr. Wally Zapien Potassium [Moles/Vol] 3.9 mmol/L Normal 3.5-5.1 [facility] Comment on above: Performed By: #### B MOLDING SANDER, T7, LIPID, TSH, CMP, URIC #### [facility] [address] [place] [address] Dr. Wally Zapien Protein [Mass/Vol] 7.0 g/dL Normal 6.4-8.2 [facility] Comment on above: Performed By: #### B MOLDING SANDER, T7, LIPID, TSH, CMP, URIC #### [facility] [address] [place] [address] Dr. Wally Zapien Sodium [Moles/Vol] 141 mmol/L Normal 136-145 [facility] Comment on above: Performed By: #### B MOLDING SANDER, T7, LIPID, TSH, CMP, URIC #### [facility] [address] [address] [address] Wally Zapien Urea nitrogen [Mass/Vol] 19.0 mg/dL Critically high 7.0-18.0 [facility] Comment on above: Performed By: #### B MOLDING SANDER, T7, LIPID, TSH, CMP, URIC #### [facility] [address] [place] [address] Dr. Wally Zapien Urea nitrogen/Creatinine [Mass ratio] 25.7 mg/mg Normal [facility] Comment on above: Performed By: #### B MOLDING SANDER, T7, LIPID, TSH, CMP, URIC #### [facility] [address] [place] [address] Dr. Wally Zapien TSHon 09-24-2022 TSH 1.535 uIU/mL Normal 0.358-3.740 [facility] Comment on above: Performed By: #### U RCX #### [facility] [address] [place] [address] Dr. Wally Zapien UA RANDOM W/MICROSCOPICon BACTERIA NONE SEEN Normal NONE SEEN [facility] Comment on above: Performed By: #### U RCX #### [facility] [address] [place] [address] Dr. Wally Zapien Bilirubin Ql (U) Negative Normal NEGATIVE [facility] Comment on above: Performed By: #### U RCX #### [facility] [address] [place] [address] Dr. Wally Zapien CAST NONE SEEN Normal NONE SEEN [facility] Comment on above: Performed By: #### U RCX #### [facility] [address] [place] [address] Dr. Wally Zapien Clarity (U) CLEAR Normal CLEAR [facility] Comment on above: Performed By: #### U RCX #### [facility] [address] [place] [address] Dr. Wally Zapien Color (U) YELLOW Normal YELLOW [facility] Comment on above: Performed By: #### U RCX #### [facility] [address] [place] [address] Dr. Wally Zapien Crystals LM Nom (Urine sed) NONE SEEN Normal NONE SEEN [facility] Comment on above: Performed By: #### U RCX #### [facility] [address] [place] [address] Dr. Wally Zapien Epithelial cells LM Ql (Urine sed) FEW Abnormal NONE SEEN /RARE [facility] Comment on above: Performed By: #### U RCX #### [facility] [address] [place] [address] Dr. Wally Zapien Glucose Ql (U) Negative Normal NEGATIVE [facility] Comment on above: Performed By: #### U RCX #### [facility] [address] [address] [address] Wally Zapien Hemoglobin Ql (U) TRACE-INTACT Abnormal NEGATIVE [facility] Comment on above: Performed By: #### U RCX #### [facility] [address] [place] [address] Dr. Wally Zapien Ketones Ql (U) Negative Normal NEGATIVE [facility] Comment on above: Performed By: #### U RCX #### [facility] [address] [place] [address] Dr. Wally Zapien LEUKOCYTES Negative Normal NEGATIVE [facility] Comment on above: Performed By: #### U RCX #### [facility] [address] [place] [address] Dr. Wally Zapien MUCOUS LARGE Abnormal NONE SEEN [facility] Comment on above: Performed By: #### U RCX #### [facility] [address] [place] [address] Dr. Wally Zapien Nitrite Ql (U) Negative Normal NEGATIVE [facility] Comment on above: Performed By: #### U RCX #### [facility] [address] [place] [address] Dr. Wally Zapien pH (U) 6.5 [pH] Normal 5-9 [facility] Comment on above: Performed By: #### U RCX #### [facility] [address] [place] [address] Dr. Wally Zapien RBC 2-5 Abnormal 0-2 [facility] Comment on above: Performed By: #### U RCX #### [facility] [address] [place] [address] Dr. Wally Zapien SPEC GRAVITY 1.025 Normal 1.005-<=1.025 [facility] Comment on above: Performed By: #### U RCX #### [facility] [address] [place] [address] Dr. Wally Zapien UA PROTEIN TRACE Normal NEGATIVE/ TRACE [facility] Comment on above: Performed By: #### U RCX #### [facility] [address] [place] [address] Dr. Wally Zapien Urobilinogen Qn (U) 1.0 {Suma'U}/dL Normal 0.2 - 1. 0 [facility] Comment on above: Performed By: #### U RCX #### [facility] [address] [place] [address] Dr. Wally Zapien WBC 0-2 Abnormal NONE SEEN [facility] Comment on above: Performed By: #### U RCX #### [facility] [address] [place] [address] Dr. Wally Zapien URIC ACID SERUMon 09-24-2022 Urate [Mass/Vol] 3.7 mg/dL Normal 3.5-7.2 [facility] Comment on above: Performed By: #### B MOLDING SANDER, T7, LIPID, TSH, CMP, URIC #### [facility] [address] [place] [address] Dr. Wally Zapien VITAMIN D 25 OHon 09-24-2022 VIT D 25-OH 42.6 ng/mL Normal [facility] Comment on above: Performed By: #### U RCX #### [facility] [address] [place] [address] Dr. Wally Zapien VIT D RANGES SEE BELOW Normal [facility] Comment on above: Result Comment: <20 ng/mL Vit D deficient 20 - <30 ng/mL Vit D insufficient 30 - 100 ng/mL Vit D sufficient >100 ng/mL Potential Toxicity Performed By: #### U RCX #### [facility] [address] [place] [address] Dr. Wally Zapien CBC AUTO DIFFon 09-18-2022 BASO # 0.0 103/ul Normal 0.0-0.1 [facility] Comment on above: Performed By: #### C BC #### [facility] [address] [address] [address] Wally Zapien Basophils/100 WBC (Bld) 0.7 % Normal 0.2-2.0 [facility] Comment on above: Performed By: #### C BC #### [facility] [address] [address] [address] Wally Zapien EO # 0.1 103/ul Normal 0.0-0.7 [facility] Comment on above: Performed By: #### C BC #### [facility] [address] [address] [address] Wally Zapien Eosinophils/100 WBC (Bld) 2.8 % Normal 0.9-7.0 [facility] Comment on above: Performed By: #### C BC #### [facility] [address] [place] [address] Dr. Wally Zapien Erythrocyte distribution width (RBC) [Ratio] 12.7 % Normal 11.0-15.0 [facility] Comment on above: Performed By: #### C BC #### [facility] [address] [place] [address] Dr. Wally Zapien Hematocrit (Bld) [Volume fraction] 44.1 % Normal 42.0-54.0 [facility] Comment on above: Performed By: #### C BC #### [facility] [address] [place] [address] Dr. Wally Zapien Hemoglobin (Bld) [Mass/Vol] 15.3 g/dL Normal 14.0-18.0 [facility] Comment on above: Performed By: #### C BC #### [facility] [address] [place] [address] Dr. Wally Zapien IG # 0.01 10e3/ul Normal 0.00-0.03 [facility] Comment on above: Performed By: #### C BC #### [facility] [address] [place] [address] Dr. Wally Zapien IG % 0.2 % Normal 0.0-0.5 [facility] Comment on above: Performed By: #### C BC #### [facility] [address] [place] [address] Dr. Wally Zapien LYMPH # 1.8 103/ul Normal 1.2-3.8 [facility] Comment on above: Performed By: #### C BC #### [facility] [address] [place] [address] Dr. Wally Zapien Lymphocytes/100 WBC (Bld) 43.0 % Normal 20.5-60.0 [facility] Comment on above: Performed By: #### C BC #### [facility] [address] [place] [address] Dr. Wally Zapien MANUAL DIFF REQ NO Normal [facility] Comment on above: Performed By: #### C BC #### [facility] [address] [place] [address] Dr. Wally Zapien MCH (RBC) [Entitic mass] 32.1 pg Normal 25.9-34.0 [facility] Comment on above: Performed By: #### C BC #### [facility] [address] [place] [address] Dr. Wally Zapien MCHC (RBC) [Mass/Vol] 34.7 g/dL Normal 29.9-35.2 [facility] Comment on above: Performed By: #### C BC #### [facility] [address] [place] [address] Dr. Wally Zapien MCV (RBC) [Entitic vol] 92.5 fL Normal 80.0-94.0 [facility] Comment on above: Performed By: #### C BC #### [facility] [address] [place] [address] Dr. Wally Zapien MONO # 0.4 103/ul Normal 0.3-0.8 [facility] Comment on above: Performed By: #### C BC #### [facility] [address] [place] [address] Dr. Wally Zapien Monocytes/100 WBC (Bld) 9.2 % Normal 1.7-12.0 [facility] Comment on above: Performed By: #### C BC #### [facility] [address] [place] [address] Dr. Wally Zapien NEUT # 1.9 103/ul Normal 1.4-6.5 [facility] Comment on above: Performed By: #### C BC #### [facility] [address] [address] [address] Wally Zapien Neutrophils/100 WBC (Bld) 44.1 % Normal 43.0-75.0 [facility] Comment on above: Performed By: #### C BC #### [facility] [address] [place] [address] Dr. Wally Zapien Platelet mean volume (Bld) [Entitic vol] 10.4 fL Normal 9.5-13.5 [facility] Comment on above: Performed By: #### C BC #### [facility] [address] [place] [address] Dr. Wally Zapien PLT 152 103/ul Normal 150-450 [facility] Comment on above: Performed By: #### C BC #### [facility] [address] [place] [address] Dr. Wally Zapien RBC 4.77 106/ul Normal 4.70-6.10 [facility] Comment on above: Performed By: #### C BC #### [facility] [address] [place] [address] Dr. Wally Zapien WBC 4.2 103/ul Normal 4.0-11.0 [facility] Comment on above: Performed By: #### C BC #### [facility] [address] [place] [address] ABD/PELVIS WO CONon [...] MAYRA LOPEZ Date: 2022-09-18 13:40 Normal [facility] ER URINE PROFILEon 3 Bilirubin Ql (U) SMALL Abnormal NEGATIVE [facility] Comment on above: Performed By: #### KERRI PADRON #### [facility] [address] [address] [address] Wally Zapien Clarity (U) SL CLOUDY Abnormal CLEAR [facility] Comment on above: Performed By: #### BIMAL PADRONRO #### [facility] [address] [address] [address] Wally Zapien Color (U) RED Abnormal YELLOW [facility] Comment on above: Performed By: #### KERRI PADRON #### [facility] [address] [address] [address] Wally GERBER A micrscopic examination will be performed if indicated. Normal [facility] Comment on above: Performed By: #### KERRI PADRON #### [facility] [address] [place] [address] Dr. Wally Zapien Glucose Ql (U) Negative Normal NEGATIVE [facility] Comment on above: Performed By: #### BIMLA PADRONRO #### [facility] [address] [place] [address] Dr. Wally Zapien Hemoglobin Ql (U) LARGE Abnormal NEGATIVE [facility] Comment on above: Performed By: #### Olinda WILLIS UMICRO #### [facility] [address] [place] [address] Dr. Wally Zapien Ketones Ql (U) TRACE Abnormal NEGATIVE [facility] Comment on above: Performed By: #### BIMAL PADRONRO #### [facility] [address] [place] [address] Dr. Wally Zapien LEUKOCYTES TRACE Abnormal NEGATIVE [facility] Comment on above: Performed By: #### BIMAL PADRONRO #### [facility] [address] [place] [address] Dr. Wally Zapien Nitrite Ql (U) Positive Abnormal NEGATIVE [facility] Comment on above: Performed By: #### BIMAL PADRONRO #### [facility] [address] [place] [address] Dr. Wally Zapien pH (U) 5.5 [pH] Normal 5-9 [facility] Comment on above: Performed By: #### MANSOOR PADRONICRO #### [facility] [address] [place] [address] Dr. Wally Zapien Protein (U) [Mass/Vol] 100 mg/dL Abnormal NEGATIVE/ TRACE [facility] Comment on above: Performed By: #### MANSOOR PADRONICRO #### [facility] [address] [place] [address] Dr. Wally Zapien SPEC GRAVITY 1.025 Normal 1.005-<=1.025 [facility] Comment on above: Performed By: #### Olinda WILLIS UMICRO #### [facility] [address] [place] [address] Dr. Wally Zapien UR MICRO IND INDICATED Normal [facility] Comment on above: Performed By: #### E KERRI WILLIS #### [facility] [address] [place] [address] Dr. Wally Zapien Urobilinogen Qn (U) 1.0 {Suma'U}/dL Normal 0.2 - 1. 0 [facility] Comment on above: Performed By: #### KERRI PADRON #### [facility] [address] [place] [address] Dr. Wally Zapien PROF CHEM 8 (BAS METB)on Anion gap [Moles/Vol] 10.5 mmol/L Normal [facility] Comment on above: Performed By: #### U RCX #### [facility] [address] [place] [address] Dr. Wally Zapien Calcium [Mass/Vol] 8.6 mg/dL Normal 8.5-10.1 [facility] Comment on above: Performed By: #### U RCX #### [facility] [address] [place] [address] Dr. Wally Zapien Chloride [Moles/Vol] 105 mmol/L Normal 98-107 [facility] Comment on above: Performed By: #### U RCX #### [facility] [address] [place] [address] Dr. Wally Zapien CO2 [Moles/Vol] 28.8 mmol/L Normal 21.0-32.0 [facility] Comment on above: Performed By: #### U RCX #### [facility] [address] [place] [address] Dr. Wally Zapien Creatinine [Mass/Vol] 0.85 mg/dL Normal 0.70-1.30 [facility] Comment on above: Performed By: #### U RCX #### [facility] [address] [place] [address] Dr. Wally Zapien EGFR-AF GUAMANIAN >60 Normal >=60 [facility] Comment on above: Performed By: #### U RCX #### [facility] [address] [place] [address] Dr. Wally Zapien EGFR-NON AF GUAMANIAN >60 Normal >=60 [facility] Comment on above: Performed By: #### U RCX #### [facility] [address] [place] [address] Dr. Wally Zapien Glucose [Mass/Vol] 112 mg/dL Critically high 74-106 T [facility] Comment on above: Performed By: #### U RCX #### [facility] [address] [place] [address] Dr. Wally Zapien Potassium [Moles/Vol] 4.3 mmol/L Normal 3.5-5.1 [facility] Comment on above: Performed By: #### U RCX #### [facility] [address] [place] [address] Dr. Wally Zapien Sodium [Moles/Vol] 140 mmol/L Normal 136-145 [facility] Comment on above: Performed By: #### U RCX #### [facility] [address] [place] [address] Dr. Wally Zapien Urea nitrogen [Mass/Vol] 23.0 mg/dL Critically high 7.0-18.0 [facility] Comment on above: Performed By: #### U RCX #### [facility] [address] [place] [address] Dr. Wally Zapien Urea nitrogen/Creatinine [Mass ratio] 27.1 mg/mg Normal [facility] Comment on above: Performed By: #### U RCX #### [facility] [address] [place] [address] Dr. Wally Zapien URINE MICROSCOPIC ONLYon BACTERIA TRACE Abnormal NONE SEEN [facility] Comment on above: Performed By: #### E LAZARO UMICRO #### [facility] [address] [place] [address] Dr. Wally Zapien Bacteria identified Cx Nom (U) NOT INDICATED Normal [facility] Comment on above: Performed By: #### E RUR UMICRO #### [facility] [address] [place] [address] Dr. Wally Zapien CAST NONE SEEN Normal NONE SEEN [facility] Comment on above: Performed By: #### E RUR, UMICRO #### [facility] [address] [address] [address] Wally Zapien Crystals LM Nom (Urine sed) NONE SEEN Normal NONE SEEN [facility] Comment on above: Performed By: #### E RUR, UMICRO #### [facility] [address] [address] [address] Wally Zapien Epithelial cells LM Ql (Urine sed) RARE Normal NONE SEEN /RARE [facility] Comment on above: Performed By: #### E RUR, UMICRO #### [facility] [address] [address] [address] Wally Zapien MUCOUS NONE SEEN Normal NONE SEEN [facility] Comment on above: Performed By: #### E RUR, UMICRO #### [facility] [address] [place] [address] Dr. Wally Zapien RBC (U) [#/Vol] /uL Abnormal 0-2 [facility] Comment on above: Performed By: #### E RUR, UMICRO #### [facility] [address] [address] [address] Wally Zapien WBC 2-5 Abnormal NONE SEEN [facility] Comment on above: Performed By: #### E RUR, UMICRO #### [facility] [address] [place] [address] Dr. aWlly Zapien Vital Signs Date Time Vital Sign Value Performing Clinician Facility 02-11-2024 09:59-0400 Blood Pressure Location Lazara Lino [facility] 02-11-2024 09:59-0400 Diastolic blood pressure 84 mm[Hg] Lazara Lino [facility] 02-11-2024 09:59-0400 Heart rate 71 /min Lazara Lino [facility] 02-11-2024 09:59-0400 Systolic blood pressure 138 mm[Hg] Lazara Lino [facility] 07-17-2023 15:40-0500 Body height 160.02 cm Rocio Rocio Other [facility] Other 07-17-2023 15:40-0500 Body mass index (BMI) [Ratio] 37.55 kg/m2 Rocio Rocio Other [facility] Other 07-17-2023 15:40-0500 Body temperature 98.2 [degF] Rocio Rocio Other [facility] Other 07-17-2023 15:40-0500 Body weight 96.16 kg Rocio Rocio Other [facility] Other 07-17-2023 15:40-0500 Diastolic blood pressure 76 mm[Hg] Rocio Rocio Other [facility] Other 07-17-2023 15:40-0500 Respiratory rate 18 /min Rocio Nullmond Other [facility] Other 07-17-2023 15:40-0500 SaO2% (BldA) [Mass fraction] 96 % Rocio Rocio Other [facility] Other 07-17-2023 15:40-0500 Systolic blood pressure 134 mm[Hg] Rocio Rocio Other [facility] Other 09-26-2022 13:26-0500 Blood Pressure Location [place] JAY[place] [facility] 09-26-2022 13:26-0500 Diastolic blood pressure 74 mm[Hg] [place] INTER[facility]O [facility] 09-26-2022 13:26-0500 Heart rate 52 /min [place] INTER[facility] 09-26-2022 13:26-0500 Systolic blood pressure 173 mm[Hg] [place] [facility] 04-16-2022 13:49-0400 Diastolic blood pressure 87 mm[Hg] [place] INTER[facility] 04-16-2022 13:49-0400 Mean blood pressure 110 mm[Hg] [place] [facility] 04-16-2022 13:49-0400 Systolic blood pressure 156 mm[Hg] [place] [facility] 04-16-2022 13:37-0400 Blood Pressure Location [place] [facility] 04-16-2022 13:37-0400 Diastolic blood pressure 102 mm[Hg] [place] [facility] 04-16-2022 13:37-0400 Heart rate 81 /min [place] [facility] 04-16-2022 13:37-0400 Respiratory rate 16 /min [place] [facility] 04-16-2022 13:37-0400 Systolic blood pressure 191 mm[Hg] [place] INTER[facility] Encounters Encounter Date Encounter Type Care Provider Facility Start: 02-11-2024 End: 02-11-2024 Lab Drop off Lazara X Orzech [facility] Start: 02-11-2024 End: 02-11-2024 ambulatory Lazara X Orzech Facility:[facility] Start: 02-11-2024 End: 02-11-2024 Patient encounter procedure Lazara X Orzech [facility] Start: 11-18-2023 End: 11-19-2023 ambulatory Fabrice Dias MD Facility: [facility] Start: 10-28-2023 End: 10-29-2023 ambulatory Fabrice Dias MD Facility: [facility] Start: 09-30-2023 End: 10-01-2023 ambulatory Fabrice Dias MD Facility: [facility] Start: 2023 End: 09-24-2023 ambulatory [facility] MD [facility] Start: 07-17-2023 End: 07-17-2023 ambulatory Rocio Chan Other [facility] Other Start: 07-17-2023 Office outpatient visit 15 minutes Rocio Chan [facility] Start: 05-27-2023 End: 05-28-2023 ambulatory Fabrice Dias MD Facility:[facility] Start: 01-23-[address] ELIANA BA . Facili ty:[facility] Start: 09-26-2022 End: 09-26-2022 Patient encounter procedure [place] INTER[place] [facility] Start: 09-24-2022 End: 09-25-[address] ELIANA BA . Facility:[facility] Start: 09-18-2022 End: 09-18-2022 ambulatory KARLOS MELTON . Facility:[facility] Start: 04-16-2022 End: 04-16-2022 Patient encounter procedure [place] INTER[facility] Procedures Date Procedure Procedure Detail Performing Clinician Start: 09-24-2022 PSA screening KARLOS ALVAREZ . Comment on above: Performed By: #### U RCX #### [facility] [address] [place] [address] Dr. Wally Zapien Start: 03-17-2019 Cystoscope, device ( physical object) [place] INTER[facility]O Cardiac catheterization Patr ick JAYDON Coronary artery bypass graft [place] INTERIANO Extraction of cataract Patri ck JAYDON Hydrocelectomy [place] MEYER S Inguinal herniorrhaphy Patri ck INTERIANO Large intestine excision Pat noe JAYDON Prosthetic arthropla sty of the hip [place] INTER[facility] Repair of musculoten dinous cuff of shoulder [place] [facility] Tonsillectomy and adenoidectomy [place] [facility] Immunizations Immunization Date Immunization Notes Care Provider [facility] 05-24-2022 influenza virus vacc ine, unspecified formulation [place] [facility] 04-20-2022 SARS-CoV-2 mRNA (zsccnzbvcut-owmr-nkyctk e) vaccine [place] [facility] 06-19-2021 SARS-CoV-2 (COVID-19 ) mRNA BNT-162b2 vax [facility] 06-01-2021 influenza virus vacc ine, unspecified formulation [facility] 05-23-2021 influenza virus vacc ine, unspecified formulation [facility] 11-10-2020 SARS-CoV-2 (COVID-19 ) mRNA BNT-162b2 vax [facility] 10-20-2020 SARS-CoV-2 (COVID-19 ) mRNA BNT-162b2 vax [facility] 08-04-2020 zoster vaccine recombinant [facility] 07-06-2020 SARS-CoV-2 (COVID-19 ) Ad26 vaccine, recombinant [place] [facility] 06-24-2020 influenza virus vacc ine, unspecified formulation [facility] 06-03-2020 zoster vaccine recombinant [facility] 06-02-2020 SARS-CoV-2 (COVID-19 ) Ad26 vaccine, recombinant [place] [employer] 05-26-2020 influenza virus vacc ine, unspecified formulation [place] [facility] 05-29-2019 influenza virus vacc ine, unspecified formulation [place] [facility] 06-17-2018 influenza virus vacc ine, unspecified formulation [place] [facility] 05-14-2017 influenza virus vacc ine, unspecified formulation [place] [facility] 05-14-2017 pneumococcal polysaccharide vaccine, 23 valent [place] [facility] 05-17-2016 influenza virus vacc ine, unspecified formulation [place] [facility] 05-17-2016 pneumococcal conjuga te vaccine, 13 valent [place] INTER[facility] 05-16-2015 influenza virus vacc ine, unspecified formulation [place] [facility] Payers Date Payer Category Payer Private Health Insurance 1957 Medicare [id number] 1940 Unknown [id number] 2.16.84 [id number] 1940 Unknown [id number] 2.16.84 [id number] 1942 Unknown [id number] 2.16.84 [id number] 1942 Unknown [id number] 2.16. [id number] 1942 Unknown [id number] 2.16. [id number] 1942 Unknown [id number] 2.16. [id number] 1942 Unknown [id number] 2.16. [id number] 1942 Unknown [id number] 2.16. [id number] 1942 Unknown [id number] 2.16.8 [id number] 1942 Unknown [id number] 2.16.8 [id number] Social History Date Type Detail Facility Start: 04-16-2022 End: 02-11-2024 Tobacco smoking status Never smoked tobacco (finding) [facility] Tobacco smoking status Never [facility] Sex Assigned At Male [facility] Functional Status Date Assessment Result Facility 02-11-2024 Functional Status N/A [facility] 09-26-2022 Functional Status N/A [facility] 04-16-2022 Functional Status N/A [facility] [employer] Clinical Notes 10-06-2020 to 02-11-2024 Note Date & Type Note Facility 02-11-2024 Evaluation + Plan note Diagnostic Tests PendingUrine Culture 02/11/24 [facility] 02-11-2024 Hospital Discharge instructions Patient Education 02/11/2024 10:34:32 Hematuria, Adult Hematuria, Adult Hematuria is blood in the urine. Blood may be visible in the urine, or it may be identified with a test. This condition can be caused by infections of the bladder, urethra, kidney, or prostate. Other possible causes include: Kidney stones. Cancer of the urinary tract. Too much calcium in the urine. Conditions that are passed from parent to child (inherited conditions). Exercise that requires a lot of energy. Infections can usually be treated with medicine, and a kidney stone usually will pass through your urine. If neither of these is the cause of your hematuria, more tests may be needed to identify the cause of your symptoms. It is very important to tell your health care provider about any blood in your urine, even if it is painless or the blood stops without treatment. Blood in the urine, when it happens and then stops and then happens again, can be a symptom of a very serious condition, including cancer. There is no pain in the initial stages of many urinary cancers. Follow these instructions at home: Medicines Take awve-gdg-jkhhmcm and prescription medicines only as told by your health care provider. If you were prescribed an antibiotic medicine, take it as told by your health care provider. Do not stop taking the antibiotic even if you start to feel better. Eating and drinking Drink enough fluid to keep your urine pale yellow. It is recommended that you drink 3 4 quarts (2.8 3.8 L) a day. If you have been diagnosed with an infection, drinking cranberry juice in addition to large amounts of water is recommended. Avoid caffeine, tea, and carbonated beverages. These tend to irritate the bladder. Avoid alcohol because it may irritate the prostate (in males). General instructions If you have been diagnosed with a kidney stone, follow your health care provider's instructions about straining your urine to catch the stone. Empty your bladder often. Avoid holding urine for long periods of time. If you are female: ?After a bowel movement, wipe from front to back and use each piece of toilet paper only once. ?Empty your bladder before and after sex. Pay attention to any changes in your symptoms. Tell your health care provider about any changes or any new symptoms. It is up to you to get the results of any tests. Ask your health care provider, or the department that is doing the test, when your results will be ready. Keep all follow-up visits. This is important. Contact a health care provider if: You develop back pain. You have a fever or chills. You have nausea or vomiting. Your symptoms do not improve after 3 days. Your symptoms get worse. Get help right away if: You develop severe vomiting and are unable to take medicine without vomiting. You develop severe pain in your back or abdomen even though you are taking medicine. You pass a large amount of blood in your urine. You pass blood clots in your urine. You feel very weak or like you might faint. You faint. Summary Hematuria is blood in the urine. It has many possible causes. It is very important that you tell your health care provider about any blood in your urine, even if it is painless or the blood stops without treatment. Take vvcv-feo-yknztqz and prescription medicines only as told by your health care provider. Drink enough fluid to keep your urine pale yellow. This information is not intended to replace advice given to you by your health care provider. Make sure you discuss any questions you have with your health care provider. Document Revised: 04/12/2021 Document Reviewed: 04/12/2021 [employer] Patient Education 2022 [employer]. 02/11/2024 10:34:29 Benign Prostatic Hyperplasia Benign Prostatic Hyperplasia Benign prostatic hyperplasia (BPH) is an enlarged prostate gland that is caused by the normal aging process. The prostate may get bigger as a man gets older. The condition is not caused by cancer. The prostate is a walnut-sized gland that is involved in the production of semen. It is located in front of the rectum and below the bladder. The bladder stores urine. The urethra carries stored urine out of the body. An enlarged prostate can press on the urethra. This can make it harder to pass urine. The buildup of urine in the bladder can cause infection. Back pressure and infection may progress to bladder damage and kidney (renal) failure. What are the causes? This condition is part of the normal aging process. However, not all men develop problems from this condition. If the prostate enlarges away from the urethra, urine flow will not be blocked. If it enlarges toward the urethra and compresses it, there will be problems passing urine. What increases the risk? This condition is more likely to develop in men older than 50 years. What are the signs or [...] urethra. Follow these instructions at home: Take ldru-kww-ekwtmpu and prescription medicines only as told by your health care provider. Monitor your symptoms for any changes. Contact your health care provider with any changes. Avoid drinking large amounts of liquid before going to bed or out in public. Avoid or reduce how much caffeine or alcohol you drink. Give yourself time when you urinate. Keep all follow-up visits. This is important. Contact a health care provider if: You have unexplained back pain. Your symptoms do not get better with treatment. You develop side effects from the medicine you are taking. Your urine becomes very dark or has a bad smell. Your lower abdomen becomes distended and you have trouble passing urine. Get help right away if: You have a fever or chills. You suddenly cannot urinate. You feel light-headed or very dizzy, or you faint. There are large amounts of blood or clots in your urine. Your urinary problems become hard to manage. You develop moderate to severe low back or flank pain. The flank is the side of your body between the ribs and the hip. These symptoms may be an emergency. Get help right away. Call 911. Do not wait to see if the symptoms will go away. Do not drive yourself to the hospital. Summary Benign prostatic hyperplasia (BPH) is an enlarged prostate that is caused by the normal aging process. It is not caused by cancer. An enlarged prostate can press on the urethra. This can make it hard to pass urine. This condition is more likely to develop in men older than 50 years. Get help right away if you suddenly cannot urinate. This information is not intended to replace advice given to you by your health care provider. Make sure you discuss any questions you have with your health care provider. Document Revised: 02/28/2022 Document Reviewed: 02/28/2022 [employer] Patient Education 2022 [employer]. Follow Up Care 04/16/2022 14:54:37 With:KIM Lino APRN, Lazara Echavarria, PARVIN, URL Address: When: Unknown Comments:1 year With:JAYDON COE, Reno Maciel, URL Address: [facility] [address], [place] [address] [id number] When: Unknown [facility] 02-11-2024 Note - From: Julia Charlton To: [facility] - Administrative; Sent: 02/11/2024 10:28:36 EDT Show up: 08/26/2024 10:28:00 EST Subject: schedule 1 yr f/u Due Date/Time: 02/02/2025 10:28:00 EDT Reminder/Recall Patient needs scheduled for a 1 yr f/u, no labs [facility] 07-17-2023 Evaluation note Encounter Date Diagnosis Assessment [...] no improvement in 2 to 3 days [facility] Other 02-01-2023 Hospital Discharge instructions Patient Education 09/26/2022 14:15:41 Infection Prevention [...] or mouth. Supplies needed: Soap. Alcohol-based hand filler and trimmer. Standard cleaning products. Disinfectants, such as bleach. [...] water are not available, use alcohol-based hand filler and trimmer. Avoid touching your face, mouth, nose, or [...] water. Air-dry your dishes or use a addresser. Do not share dishes or eating utensils. [...] certain germs and not others. Read the trimming cutter's instructions or read online resources to determine if the product you are using will work for the germ you are tryingto remove. If you choose to use bleach, [...] minutes after each use, or according to trimming cutter's instructions. Wash reusable cleaning cloths and sanitize [...] water are not available, use alcohol-based hand filler and trimmer. In general: Stay home except to get [...] information Centers for Disease Control and Prevention: www.cdc.gov/nonpharmaceutical-interventions/index.html World Health Organization (WHO): www.who.int/infection-prevention/about/en/ Association for Professionals in Infection Control and Epidemiology: professionals.site.apic.org/bgimheag-ql-cdge/pfx-ckymxtsfnq-gygeudo/home/ Summary It is important to know how [...] 05/21/2009 Document Revised: 12/08/2019 Document Reviewed: 11/06/2019 [employer] Patient Education 2019 [employer]. Follow Up Care 09/20/2022 14:58:28 With:JAYDON COE, Reno Maciel, URL Address: [facility] [address] , [place] [id number]- When:3 months Comments:UTI F/U [facility] 08-22-2022 Hospital Discharge instructions Patient Education 04/16/2022 14:44:18 Benign Prostatic Hyperplasia Benign Prostatic Hyperplasia Benign prostatic hyperplasia (BPH) is an enlarged prostate gland that is caused by the normal agingprocess and not by cancer. The prostate is [...] urethra. Follow these instructions at home: Take heso-rgy-zrrawkq and prescription medicines only as told by [...] 08/12/2006 Document Revised: 07/07/2019 Document Reviewed: 09/16/2017 [employer] Patient Education 2020 [employer] 04/16/2022 14:44:17 Calorie Counting for Weight Loss [...] sure to eat fewer calories than your bodyneeds, you should lose weight. Ask your health care provider what a healthy weight is for you. For calorie counting to work, you will need to eat the right number of calories in a day in order to lose a healthy amount of weight per week. A dietitian can help you determine how many calories youneed in a day and will give you suggestions on how to reach your calorie goal. A healthy amount of weight to lose per week is usually 1 2 lb (0.5 0.9 kg). This usually means thatyour daily calorie intake should be reduced by [...] label. If a food does not have aNutrition Facts label, try to look up the calories online or ask your dietitian for help. Remember that calories are listed per serving. If you choose to have more than one serving of a food, you will have to multiply the calories per serving by the amount of servings you plan to eat. Forexample, the label on a package of bread [...] you how many calories you have left forthe day to meet your goal. What are [...] fat free foods. These foods sometimes have thesame amount of calories or more calories than the full fat versions. They also often have added sugar, starch, or salt, to make up for flavor that was removed with the fat. Find a way of tracking calories that works for you. Get creative. Try different apps or programs ifwriting down calories does not work for you. What are some portion control tips? Know how many calories are in a serving. This will help you know how many servings of a certain food you can have. Use a measuring cup to measure serving sizes. You could also try weighing out portions on a kitchenscale. With time, you will be able to [...] serving size may be smaller than what youare used to eating. Check the source of the calories. Make sure the food you are eating is high in vitamins and proteinand low in saturated and trans fats. Shopping [...] steamed. Stay away from items that are buttered,battered, fried, or served with cream sauce. Items [...] a serving of cooked rice is cup orabout the size of half a baseball. Knowing serving sizes will help you be aware of how much food you are eating at restaurants. The list below tells you how big or small some common portion sizes arebased on everyday objects: ?1 oz 4 stacked [...] label. If a food does not have aNutrition Facts label, try to look up the [...] 08/12/2006 Document Revised: 05/01/2019 Document Reviewed: 07/12/2017 [employer] Patient Education 2020 [employer]. Follow Up Care 10/16/2021 15:00:57 With:JAYDON COE, Reno Maciel, URL Address: [address] [place] [address] [place] [address]- Business (1) When:Within 1 Year(s) [facility] 02-11-2021 NotePatient Outreach (COVAMN) KYLRE RICHARD ([id number]) 1940 M Date Time Provider Department 10/06/20 JOLYNN RUSSO During your visit today, we recorded the following information about you: Allergies As of Date: 10/06/2020 (No Known Allergies) Date Reviewed: 11/27/2018 Reviewed by: Huyen Barraza - Fully Assessed Order(s):SARS-COVID VACCINE 1ST DOSE APPT [[id number]] Order #: [id number] FUTURE Prescriptions as of 10/06/2020 Sig: RHOPRESSA [...] Text Encounter Status:Closed by KAREN VOGELUSER on 10/10/20[facility] Evaluation + Plan note Future Appointments Appointment Date:04/19/2023 09:30:00 AM Scheduled Provider:Reno INTERIANO MD Location:[facility] Appointment Type:URO Office Visit [facility] evaluation + Plan note Future Appointments Appointment Date:01/16/2023 09:45:00 AM Scheduled Provider:Reno INTERIANO MD Location:[facility] Appointment Type:URO Office Visit Appointment Date:04/19/2023 09:30:00 AM Scheduled Provider:[facility]eno [facility] Office Visit [facility] Hismrnx general Narrative - Reported* Type Description Date Medical History heart disease Medical History colon cancer Medical History glaucoma Surgical History open heart surgery Surgical History colon surgery Surgical History 3 hernia repairs Surgical History torn retina Surgical History cataracts Surgical History left total hip 2017 Surgical History Eye lid lift both 2020 Hospitalization History see above Hospitalization History back spasms 2022 [facility] Hospital course Narrative No data available for this section [facility] Discharge instructions No data available for this section [facility] No data available for this section [facility] Summary Purpose Family History No Family History Records FoundNo Family History Records FoundNo Family History Records Found No data available for this section No data available for this section No Family History Records FoundNo Family History [...] section and content) DATE CREATED AUTHOR 09/19/2021 [facility] DATE CREATED AUTHOR AUTHOR'S ORGANIZ ATION 02/01/2023 [facility] DATE CREATED AUTHOR AUTHOR'S ORGANIZ ATION 12/31/2023 [facility] DATE CREATED AUTHOR AUTHOR'S ORGANIZ ATION 02/13/2024 [facility] DATE CREATED AUTHOR AUTHOR'S ORGANIZ ATION 02/14/2024 [facility] DATE CREATED AUTHOR AUTHOR'S ORGANIZ ATION 02/21/2024 [facility] Care Team (unrecognized sect ion and content) Personnel Name: Eliana Ba MD Address: [address] [place] [address] Personnel Name: Eliana Ba MD Address: Address: [address] [place] [address] Personnel Name: Eliana Ba MD Address: Address: [address] [place] [address] Personnel Name: Eliana Ba MD Address: Address: [address] [place] [address] REASON FOR VISIT (unrecogniz ed section and [...] BE BASED ON THE PRIMARY CLINICAL RECORDS. [facility]. provides no warranty or guarantee of the accuracy or completeness of information in this document.
[2024-03-02 00:05] VITALS: BP 135/53; PULSE 61; TEMP 36.6; O2SAT 96; BMI 38.4
--- NOTE | 2024-03-02 00:29 | ED_ITS ---
HPI - Skin/Abscess/Foreign Bdy General Chief complaint: Skin/Abscess/Foreign Body Stated complaint: RT LEG BLISTER Time Seen by Provider: 03/02/24 00:19 Source: patient Mode of arrival: walk-in Limitations: no limitations History of Present Illness HPI narrative: 83-year-old male presents for blister to his right lower leg anteriorly. It was not there yesterday, he noticed it today. There is been no drainage and he had no trauma. He has no fever and no other blisters elsewhere on his body. Related Data Home Medications ?Medication ?Instructions ?Recorded ?Confirmed aspirin 81 mg tablet,delayed 81 mg PO DAILY 05/20/23 03/02/24 release atorvastatin 40 mg tablet 40 mg PO DAILY 05/20/23 03/02/24 dorzolamide 22.3 mg-timolol 6.8 1 drp ophthalmic (eye) BID 05/20/23 03/02/24 mg/mL eye drops icosapent ethyl 1 gram capsule 2 g PO BID 05/20/23 03/02/24 latanoprost 0.005 % eye drops 1 drp ophthalmic (eye) .QHS 05/20/23 03/02/24 lisinopril 10 mg tablet 10 mg PO DAILY 05/20/23 03/02/24 meloxicam 15 mg tablet 15 mg PO DAILY 05/20/23 03/02/24 metoprolol tartrate 25 mg tablet 12.5 mg PO BID 05/20/23 03/02/24 netarsudil 0.02 % eye drops 1 drp ophthalmic (eye) DAILY 05/20/23 03/02/24 (Rhopressa) tamsulosin 0.4 mg capsule 0.4 mg PO BID 05/20/23 03/02/24 brimonidine 0.2 % eye drops drp ophthalmic (eye) 03/02/24 cetirizine 10 mg tablet mg 03/02/24 fluticasone propionate 50 intranasal 03/02/24 mcg/actuation nasal spray,suspension hyoscyamine sulfate 0.125 mg mg 03/02/24 sublingual tablet Previous Rx's ?Medication ?Instructions ?Recorded lidocaine 5 % topical patch 1 patch topical DAILY #30 ea 12/18/23 cephalexin 500 mg capsule 500 mg PO QID 10 days #40 caps 03/02/24 Allergies Allergy/AdvReac Type Severity Reaction Status Date / Time No Known Drug Allergies Allergy Verified 11/18/23 09:17 Review of Systems ROS Narrative A ten point review of systems is negative except as noted above. PFSH PFS Medical History Low back pain ?M54.50 - Low back pain, unspecified (ICD-10) Sleep apnea ?G47.30 - Sleep apnea, unspecified (ICD-10) High cholesterol ?E78.00 - Pure hypercholesterolemia, unspecified (ICD-10) Heart disease ?I51.9 - Heart disease, unspecified (ICD-10) Hypertension ?I10 - Essential (primary) hypertension (ICD-10) Glaucoma ?H40.9 - Unspecified glaucoma (ICD-10) Colon cancer ?C18.9 - Malignant neoplasm of colon, unspecified (ICD-10) Inability to walk ?R26.2 - Difficulty in walking, not elsewhere classified (ICD-10) Chronic back pain ?M54.9 - Dorsalgia, unspecified (ICD-10) ?G89.29 - Other chronic pain (ICD-10) Strain of lumbar region ?S39.012A - Strain of muscle, fascia and tendon of lower back, initial encounter (ICD-10) Surgical History Detached retina, left ?H33.22 - Serous retinal detachment, left eye (ICD-10) Cataracts, both eyes ?H26.9 - Unspecified cataract (ICD-10) History of colectomy ?Z90.49 - Acquired absence of other specified parts of digestive tract (ICD- 10) 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 Smoking status: Never smoker Non-prescribed substance use: denies use Previous occupational history: retired Highest level of school completed/degree received: Bachelor's degree Are you now , , , , never or living with a partner: Little interest or pleasure in doing things: not at all Feeling down, depressed, or hopeless: not at all Feel stressed/tense/nervous/anxious/difficulty sleeping: not at all Do you think of yourself as: straight/heterosexual Gender Identity: male Exam Narrative Exam Narrative: Nurses note and vital signs reviewed and patient is not hypoxic. General: The patient appears well and in no apparent distress. Patient is resting comfortably on cart. Skin: Warm, dry, no pallor noted. There is a 2 cm in diameter blister on his right lower leg anteriorly. No open area or drainage. The surrounding skin is minimally erythematous but he has some erythema on the left leg as well. Head: Normocephalic, atraumatic Eye: Normal conjunctiva, no drainage Ears, Nose, Mouth, and Throat: oral mucosa is moist. Nares patent. Cardiovascular: Not tachycardic Respiratory: Patient is in no distress, no accessory muscle use, lungs are clear to auscultation, no wheezing, rales or rhonchi GI: Soft and nontender Musculoskeletal: He has what appears to be chronic edema in both lower extremity Neurological: Awake and alert Psychiatric: Cooperative Constitutional Vital Signs, click to edit/add: Last Vital Signs Temp 97.8 F 03/02/24 00:05 Pulse 61 03/02/24 00:05 Resp 18 03/02/24 00:05 BP 135/53 03/02/24 00:05 Pulse Ox 96 03/02/24 00:05 O2 Del Method Room Air 03/02/24 00:05 Course Vital Signs Vital signs: Vital Signs Temperature 97.8 F 03/02/24 00:05 Pulse Rate 61 03/02/24 00:05 Respiratory Rate 18 03/02/24 00:05 Blood Pressure 135/53 03/02/24 00:05 Pulse Oximetry 96 03/02/24 00:05 Oxygen Delivery Method Room Air 03/02/24 00:05 Temperature 97.8 F 03/02/24 00:05 Pulse Rate 61 03/02/24 00:05 Respiratory Rate 18 03/02/24 00:05 Blood Pressure 135/53 03/02/24 00:05 Pulse Oximetry 96 03/02/24 00:05 Oxygen Delivery Method Room Air 03/02/24 00:05 MDM - Skin/Abscess/Foreign Bdy MDM Narrative Medical decision making narrative: The following procedure was performed by me. Alcohol wipe was carried out to the blister and using a #11 blade it was opened and drained. Clear yellow fluid was extracted, no pus. Culture was ordered and he started on Keflex and he will follow-up with his doctor in a few days. Treatment diagnosis and follow-up were discussed with the patient. Differential Diagnosis Differential diagnosis: Likely abscess of skin or subcutaneous tissue, cellulitis and other (Blister) Discharge Plan Discharge Stand Alone Forms: Portal Instructions Chief Complaint: Skin/Abscess/Foreign Body Clinical Impression: Blister Patient Disposition: Home, Self-Care Time of Disposition Decision: 00:28 Condition: Good Mode of Transportation: Private Vehicle Prescriptions / Home Meds: New cephalexin 500 mg capsule 500 mg PO QID 10 Days Qty: 40 0RF No Action atorvastatin 40 mg tablet 40 mg PO DAILY dorzolamide-timolol 22.3-6.8 mg/mL drops 1 drp OPHTHALMIC (EYE) BID Rx Instructions: BOTH EYES icosapent ethyl 1 gram capsule 2 g PO BID latanoprost 0.005 % drops 1 drp OPHTHALMIC (EYE) .QHS Rx Instructions: RIGHT EYE lisinopril 10 mg tablet 10 mg PO DAILY meloxicam 15 mg tablet 15 mg PO DAILY metoprolol tartrate 25 mg tablet 12.5 mg PO BID Rhopressa 0.02 % drops 1 drp OPHTHALMIC (EYE) DAILY Rx Instructions: RIGHT EYE tamsulosin 0.4 mg capsule 0.4 mg PO BID aspirin 81 mg tablet,delayed release (DR/EC) 81 mg PO DAILY lidocaine 5 % adhesive patch,medicated 1 patch topical DAILY Qty: 30 2RF Rx Instructions: leave on most painful area for up to 12 hrs each day cetirizine 10 mg tablet hyoscyamine sulfate 0.125 mg tablet, sublingual brimonidine 0.2 % drops OPHTHALMIC (EYE) fluticasone propionate 50 mcg/actuation spray,suspension INTRANASAL Print Language: Angolan Instructions: [place] (ED) Additional Instructions: Follow-up with Dr. Ba in 2 to 3 days Referrals: Bayron Ba MD [Primary Care Provider] - 1 week
[2024-03-02] MEDS: CEPHALEXIN 500 MG CAPSULE PO (00:38)
== END 2024-03-02 01:02 | disposition home or self-care (01) ==
PROVIDERS: Emergency Provider Emergency Medicine; PCP Family Medicine
DX: S80.821A Blister (nonthermal), right lower leg, initial encounter (principal)
CPT/HCPCS: 10060; 87070; 87150; 87186; 99283

== ENCOUNTER 2024-03-08 17:40 | Emergency (ER) | payer MEDICARE, SELFPAY ==
[2024-03-08 17:44] VITALS: BP 198/118; PULSE 94; TEMP 36.7; O2SAT 97
--- NOTE | 2024-03-08 17:56 | ED.MALEGU1 ---
HPI - Male Genitourinary General Chief complaint: Urogenital-Male Stated complaint: URINATION PROBLEMS Time Seen by Provider: 03/08/24 17:41 Source: patient Mode of arrival: Wheelchair History of Present Illness HPI Narrative: Patient is an 83-year-old male who presents to the emergency department for difficulty urinating today. He states he has not been able to urinate for about 12 hours. He feels pressure in the low abdomen. No fevers or vomiting. He had at his regular checkup with his urologist about 2 weeks ago and it was normal. He states he used to self catheterize to urinate, he states his bladder started being able to pass urine again and he did not need to self catheterize anymore. He states today he has been unable to pass urine. No flank or back pain. Related Data Home Medications ?Medication ?Instructions ?Recorded ?Confirmed aspirin 81 mg tablet,delayed 81 mg PO DAILY 05/20/23 03/02/24 release atorvastatin 40 mg tablet 40 mg PO DAILY 05/20/23 03/02/24 dorzolamide 22.3 mg-timolol 6.8 1 drp ophthalmic (eye) BID 05/20/23 03/02/24 mg/mL eye drops icosapent ethyl 1 gram capsule 2 g PO BID 05/20/23 03/02/24 latanoprost 0.005 % eye drops 1 drp ophthalmic (eye) .QHS 05/20/23 03/02/24 lisinopril 10 mg tablet 10 mg PO DAILY 05/20/23 03/02/24 meloxicam 15 mg tablet 15 mg PO DAILY 05/20/23 03/02/24 metoprolol tartrate 25 mg tablet 12.5 mg PO BID 05/20/23 03/02/24 netarsudil 0.02 % eye drops 1 drp ophthalmic (eye) DAILY 05/20/23 03/02/24 (Rhopressa) tamsulosin 0.4 mg capsule 0.4 mg PO BID 05/20/23 03/02/24 brimonidine 0.2 % eye drops drp ophthalmic (eye) 03/02/24 cetirizine 10 mg tablet mg 03/02/24 fluticasone propionate 50 intranasal 03/02/24 mcg/actuation nasal spray,suspension hyoscyamine sulfate 0.125 mg mg 03/02/24 sublingual tablet Previous Rx's ?Medication ?Instructions ?Recorded lidocaine 5 % topical patch 1 patch topical DAILY #30 ea 12/18/23 cephalexin 500 mg capsule 500 mg PO QID 10 days #40 caps 03/02/24 Allergies Allergy/AdvReac Type Severity Reaction Status Date / Time No Known Drug Allergies Allergy Verified 11/18/23 09:17 Review of Systems ROS Constitutional Denies: fever or chills Ears, nose, mouth, and throat Denies: throat pain or nasal congestion Respiratory Denies: shortness of breath Gastrointestinal Denies: nausea or vomiting Genitourinary Reports: difficulty urinating Musculoskeletal Denies: back pain Integumentary/Breast Denies: rash Neurological Denies: headache Endocrine Denies: excessive urination Hematologic/Lymphatic Denies: easy bruising or easy bleeding PFSH [facility] Medical History Low back pain ?M54.50 - Low back pain, unspecified (ICD-10) Sleep apnea ?G47.30 - Sleep apnea, unspecified (ICD-10) High cholesterol ?E78.00 - Pure hypercholesterolemia, unspecified (ICD-10) Heart disease ?I51.9 - Heart disease, unspecified (ICD-10) Hypertension ?I10 - Essential (primary) hypertension (ICD-10) Glaucoma ?H40.9 - Unspecified glaucoma (ICD-10) Colon cancer ?C18.9 - Malignant neoplasm of colon, unspecified (ICD-10) Inability to walk ?R26.2 - Difficulty in walking, not elsewhere classified (ICD-10) Chronic back pain ?M54.9 - Dorsalgia, unspecified (ICD-10) ?G89.29 - Other chronic pain (ICD-10) Strain of lumbar region ?S39.012A - Strain of muscle, fascia and tendon of lower back, initial encounter (ICD-10) Surgical History Detached retina, left ?H33.22 - Serous retinal detachment, left eye (ICD-10) Cataracts, both eyes ?H26.9 - Unspecified cataract (ICD-10) History of colectomy ?Z90.49 - Acquired absence of other specified parts of digestive tract (ICD-10) 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 Smoking status: Never smoker Non-prescribed substance use: denies use Previous occupational history: retired Highest level of school completed/degree received: Bachelor's degree Are you now , , , , never or living with a partner: Little interest or pleasure in doing things: not at all Feeling down, depressed, or hopeless: not at all Feel stressed/tense/nervous/anxious/difficulty sleeping: not at all Do you think of yourself as: straight/heterosexual Gender Identity: male Exam Narrative Exam Narrative: Gen.: Awake, alert, in no distress Head: Normocephalic, atraumatic ENT: Moist mucous membranes Respiratory: No respiratory distress Gastrointestinal: Abdomen is soft, nondistended and nontender to palpation Extremities: Moves extremities equally Psych: Normal mood and affect Neuro: No focal neuro deficit Skin: Warm, dry, intact Constitutional Vital Signs, click to edit/add: Last Vital Signs Temp 98.1 F 03/08/24 17:44 Pulse 94 H 03/08/24 17:44 Resp 20 03/08/24 17:44 BP 140/78 03/08/24 19:18 Pulse Ox 97 03/08/24 17:44 O2 Del Method Room Air 03/08/24 17:44 Course Vital Signs Vital signs: Vital Signs Temperature 98.1 F 03/08/24 17:44 Pulse Rate 94 H 03/08/24 17:44 Respiratory Rate 20 03/08/24 17:44 Blood Pressure 198/118 H 03/08/24 17:44 Pulse Oximetry 97 03/08/24 17:44 Oxygen Delivery Method Room Air 03/08/24 17:44 Temperature 98.1 F 03/08/24 17:44 Pulse Rate 94 H 03/08/24 17:44 Respiratory Rate 20 03/08/24 17:44 Blood Pressure 140/78 03/08/24 19:18 Pulse Oximetry 97 03/08/24 17:44 Oxygen Delivery Method Room Air 03/08/24 17:44 MDM - Male Genitourinary MDM Narrative Medical decision making narrative: More catheter was attempted twice, there was some urine return with More catheter placement with a coud?, however the More catheter was not able to be fully advanced so balloon was not inflated to avoid urethral injury. After the coud? catheter was removed, patient is urinating easily on his own. He was bladder scanned again, with significant decrease in urine in his bladder. Urine specimen shows minimal urinary tract infection, the patient is currently on Keflex for another 4 days, suggest finishing this medication and waiting for urine culture. Due to the patient's age, I will avoid a second antibiotic to reduce the risk of C. difficile. Follow-up with urology and return to the ER if symptoms change or worsen SUPERVISED APC VISIT, PHYSICIAN ATTESTATION: Based on the medical record the care appears appropriate. ? Medical Records Attestation: I reviewed the patient's medical records. Lab Data Attestation: I reviewed the patient's lab results. Labs: Lab Results 03/08/24 Range/Units 18:35 Urine Color Lt. yellow (YELLOW) Urine Clarity Clear (CLEAR) Urine pH 7.0 (5.0-9.0) Ur Specific [place] 1.025 (1.005-1.025) Urine Protein 100 A (NEG/TRACE) mg/dL Urine Glucose (UA) Negative (NEGATIVE) mg/dL Urine Ketones Negative (NEGATIVE) mg/dL Urine Occult Blood Large A (NEGATIVE) Urine Nitrite Negative (NEGATIVE) Urine Bilirubin Negative (NEGATIVE) Urine Urobilinogen 1.0 (0.2-1.0) EU/dL Ur Leukocyte Esterase Small A (NEGATIVE) Urine RBC 5-10 A (0-2) #/HPF Urine WBC 2-5 A (NONE SEEN) #/HPF Ur Squamous Epith Cells Few A (NONE/RARE) #/LPF Ur Transition Epith Cell Rare A (NONE SEEN) #/LPF Urine Crystals None seen (None Seen) #/HPF Urine Bacteria Moderate A (NONE SEEN) #/HPF Urine Casts None seen (NONE SEEN) #/LPF Urine Mucus Small A (NONE SEEN) Ur Culture Indicated? Yes Discharge Plan Discharge Stand Alone Forms: Portal Instructions Chief Complaint: Urogenital-Male Clinical Impression: Acute UTI, Acute urinary retention Patient Disposition: Home, Self-Care Time of Disposition Decision: 19:18 Condition: Good Prescriptions / Home Meds: No Action atorvastatin 40 mg tablet 40 mg PO DAILY dorzolamide-timolol 22.3-6.8 mg/mL drops 1 drp OPHTHALMIC (EYE) BID Rx Instructions: BOTH EYES icosapent ethyl 1 gram capsule 2 g PO BID latanoprost 0.005 % drops 1 drp OPHTHALMIC (EYE) .QHS Rx Instructions: RIGHT EYE lisinopril 10 mg tablet 10 mg PO DAILY meloxicam 15 mg tablet 15 mg PO DAILY metoprolol tartrate 25 mg tablet 12.5 mg PO BID Rhopressa 0.02 % drops 1 drp OPHTHALMIC (EYE) DAILY Rx Instructions: RIGHT EYE tamsulosin 0.4 mg capsule 0.4 mg PO BID aspirin 81 mg tablet,delayed release (DR/EC) 81 mg PO DAILY lidocaine 5 % adhesive patch,medicated 1 patch topical DAILY Qty: 30 2RF Rx Instructions: leave on most painful area for up to 12 hrs each day cetirizine 10 mg tablet hyoscyamine sulfate 0.125 mg tablet, sublingual brimonidine 0.2 % drops OPHTHALMIC (EYE) fluticasone propionate 50 mcg/actuation spray,suspension INTRANASAL cephalexin 500 mg capsule 500 mg PO QID 10 Days Qty: 40 0RF Print Language: Divehi Instructions: Urinary Retention in Men (ED) Referrals: Bayron Ba MD [Primary Care Provider] - 1 week Reno Valentin MD [Physician] - As soon as possible
[2024-03-08 18:54] LABS: Bilirubin Urine NEGATIVE (NEGATIVE); Blood Urine LARGE (NEGATIVE); Clarity Urine CLEAR (CLEAR); Color Urine LT. YELLOW (YELLOW); Glucose Urine UA NEGATIVE (NEGATIVE); Ketones Urine NEGATIVE (NEGATIVE); Leukocyte Esterase Urine SMALL (NEGATIVE); Nitrite Urine NEGATIVE (NEGATIVE); Protein Urine 100 mg/dL (NEG/TRACE); Specific Gravity Urine 1.025 (1.005-1.025)
[2024-03-08 18:57] LABS: Urine Microscopic Indicated YES
[2024-03-08 19:05] LABS: Bacteria Urine MODERATE #/HPF (NONE SEEN); Cast Seen? NONE SEEN #/LPF (NONE SEEN); Crystals Seen? None Seen #/HPF (None Seen); Mucus Urine SMALL (NONE SEEN); Squamous Epithelial Cell Urine FEW #/LPF (NONE/RARE); Transitional Epi Cells Urine RARE #/LPF (NONE SEEN); Urine Culture Indicated YES
[2024-03-08 19:18] VITALS: BP 140/78
== END 2024-03-08 19:43 | disposition home or self-care (01) ==
PROVIDERS: Physician Assistant; Emergency Provider Student in an Organized Health Care Education/Training Program; PCP Family Medicine
DX: N39.0 Urinary tract infection, site not specified (principal); R33.9 Retention of urine, unspecified
CPT/HCPCS: 36415; 51798; 81001; 87086; 99284

== ENCOUNTER 2024-03-11 16:06 | Emergency (ER) | payer MEDICARE, SELFPAY ==
[2024-03-11 16:11] VITALS: BP 172/72; PULSE 82; TEMP 36.7; O2SAT 98; BMI 38.4
--- NOTE | 2024-03-11 16:58 | ED_ITS ---
HPI HPI - General Adult General Chief complaint: Nausea/Vomiting/Diarrhea Stated complaint: URINE RETENTION Time Seen by Provider: 03/11/24 16:20 Source: patient and family Mode of arrival: walk-in Limitations: no limitations History of Present Illness HPI narrative: Patient presents to ED complaining of urinary retention. He has had this problem multiple times in the past. He used to self catheterize but he does not do that anymore. He said he is just been dribbling the past few days and he is getting a little bit of lower abdominal pressure. He has had More catheters placed multiple times in the past as well. He sees Dr. Valentin. He denies any fevers Related Data Home Medications ?Medication ?Instructions ?Recorded ?Confirmed aspirin 81 mg tablet,delayed 81 mg PO DAILY 05/20/23 03/02/24 release atorvastatin 40 mg tablet 40 mg PO DAILY 05/20/23 03/02/24 dorzolamide 22.3 mg-timolol 6.8 1 drp ophthalmic (eye) BID 05/20/23 03/02/24 mg/mL eye drops icosapent ethyl 1 gram capsule 2 g PO BID 05/20/23 03/02/24 latanoprost 0.005 % eye drops 1 drp ophthalmic (eye) .QHS 05/20/23 03/02/24 lisinopril 10 mg tablet 10 mg PO DAILY 05/20/23 03/02/24 meloxicam 15 mg tablet 15 mg PO DAILY 05/20/23 03/02/24 metoprolol tartrate 25 mg tablet 12.5 mg PO BID 05/20/23 03/02/24 netarsudil 0.02 % eye drops 1 drp ophthalmic (eye) DAILY 05/20/23 03/02/24 (Rhopressa) tamsulosin 0.4 mg capsule 0.4 mg PO BID 05/20/23 03/02/24 brimonidine 0.2 % eye drops drp ophthalmic (eye) 03/02/24 cetirizine 10 mg tablet mg 03/02/24 fluticasone propionate 50 intranasal 03/02/24 mcg/actuation nasal spray,suspension hyoscyamine sulfate 0.125 mg mg 03/02/24 sublingual tablet Previous Rx's ?Medication ?Instructions ?Recorded lidocaine 5 % topical patch 1 patch topical DAILY #30 ea 12/18/23 cephalexin 500 mg capsule 500 mg PO QID 10 days #40 caps 03/02/24 ciprofloxacin HCl 500 mg tablet 500 mg PO BID 5 days #10 tabs 03/11/24 (Cipro) Allergies Allergy/AdvReac Type Severity Reaction Status Date / Time No Known Drug Allergies Allergy Verified 11/18/23 09:17 Opioid HPI Opioid Management Most Recent Opioid Data: Last Pain Scale 3 11/18/23 09:15 PFSH PFS Medical History Low back pain ?M54.50 - Low back pain, unspecified (ICD-10) Sleep apnea ?G47.30 - Sleep apnea, unspecified (ICD-10) High cholesterol ?E78.00 - Pure hypercholesterolemia, unspecified (ICD-10) Heart disease ?I51.9 - Heart disease, unspecified (ICD-10) Hypertension ?I10 - Essential (primary) hypertension (ICD-10) Glaucoma ?H40.9 - Unspecified glaucoma (ICD-10) Colon cancer ?C18.9 - Malignant neoplasm of colon, unspecified (ICD-10) Inability to walk ?R26.2 - Difficulty in walking, not elsewhere classified (ICD-10) Chronic back pain ?M54.9 - Dorsalgia, unspecified (ICD-10) ?G89.29 - Other chronic pain (ICD-10) Strain of lumbar region ?S39.012A - Strain of muscle, fascia and tendon of lower back, initial encounter (ICD-10) Surgical History Detached retina, left ?H33.22 - Serous retinal detachment, left eye (ICD-10) Cataracts, both eyes ?H26.9 - Unspecified cataract (ICD-10) History of colectomy ?Z90.49 - Acquired absence of other specified parts of digestive tract (ICD- 10) 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 Smoking status: Never smoker Non-prescribed substance use: denies use Previous occupational history: retired Highest level of school completed/degree received: Bachelor's degree Are you now , , , , never or living with a partner: Little interest or pleasure in doing things: not at all Feeling down, depressed, or hopeless: not at all Feel stressed/tense/nervous/anxious/difficulty sleeping: not at all Do you think of yourself as: straight/heterosexual Gender Identity: male Exam Constitutional Vital Signs, click to edit/add: Last Vital Signs Temp 98.1 F 03/11/24 16:11 Pulse 82 03/11/24 16:11 Resp 18 03/11/24 16:11 BP 172/72 H 03/11/24 16:11 Pulse Ox 98 03/11/24 16:11 O2 Del Method Room Air 03/11/24 16:11 Course Vital Signs Vital signs: Vital Signs Temperature 98.1 F 03/11/24 16:11 Pulse Rate 82 03/11/24 16:11 Respiratory Rate 18 03/11/24 16:11 Blood Pressure 172/72 H 03/11/24 16:11 Pulse Oximetry 98 03/11/24 16:11 Oxygen Delivery Method Room Air 03/11/24 16:11 Temperature 98.1 F 03/11/24 16:11 Pulse Rate 82 03/11/24 16:11 Respiratory Rate 18 03/11/24 16:11 Blood Pressure 172/72 H 03/11/24 16:11 Pulse Oximetry 98 03/11/24 16:11 Oxygen Delivery Method Room Air 03/11/24 16:11 Medical Decision Making MDM Narrative Medical decision making narrative: Patient was dribbling urine and had about 200 to 250 cc of urine in the bladder. He was unable to void very much, after he did have some urine output in the room he still had greater than 230 cc in the bladder. Given this information and based on his history of urinary retention problems, I felt putting a More in would be best for him otherwise he would end up back in the emergency room with worsening urinary retention. Patient does see Dr. Valentin. A More catheter was placed by the nurse without issue, patient tolerated well. Patient is already on Keflex for a leg wound. Continue Keflex, follow-up with Dr. Valentin, call his office tomorrow to schedule a follow-up appointment. Patient's labs are nonacute and he feels comfortable with care plan for home. Differential Diagnosis Differential Diagnosis: Urinary retention urinary tract infection acute renal failure Medical Records Medical records reviewed: Yes I reviewed the patient's medical records Lab Data Lab results reviewed: Yes I reviewed the patient's lab results Labs: Lab Results 03/11/24 03/11/24 Range/Units 17:04 17:25 WBC 10.4 (4.0-11.0) 10^3/uL RBC 4.54 L (4.70-6.10) 10^6/uL Hgb 14.7 (14.0-18.0) g/dL Hct 42.4 (42.0-54.0) % MCV 93.4 (80.0-94.0) fL MCH 32.4 (25.9-34.0) pg MCHC 34.7 (29.9-35.2) g/dL RDW 12.7 (11.0-15.0) % Plt Count 146 L (150-450) 10^3/uL MPV 10.8 (9.5-13.5) fL Neut % (Auto) 79.5 H (43.0-75.0) % Lymph % (Auto) 12.1 L (20.5-60.0) % [place] % (Auto) 6.4 (1.7-12.0) % Eos % (Auto) 1.2 (0.9-7.0) % Baso % (Auto) 0.2 (0.2-2.0) % Neut # (Auto) 8.3 H (1.4-6.5) 10^3/uL Lymph # (Auto) 1.3 (1.2-3.8) 10^3/uL [place] # (Auto) 0.7 (0.3-0.8) 10^3/uL Eos # (Auto) 0.1 (0.0-0.7) 10^3/uL Baso # (Auto) 0.0 (0.0-0.1) 10^3/uL Abs Immat Gran (auto) 0.06 H (0.00-0.03) 10^3/uL Imm/Tot Granulo (auto) 0.6 H (0.0-0.5) % Sodium 137 (136-145) mmol/L Potassium 3.9 (3.5-5.1) mmol/L Chloride 103 (98-107) mmol/L Carbon Dioxide 26.2 (21.0-32.0) mmol/L Anion Gap 11.7 BUN 20.0 H (7.0-18.0) mg/dL Creatinine 1.05 (0.70-1.30) mg/dL Est GFR ( Amer) >60 (>=60) Est GFR (Non-Af Amer) >60 (>=60) BUN/Creatinine Ratio 19.0 Glucose 112 H (74-106) mg/dL Calcium 8.7 (8.5-10.1) mg/dL Total Bilirubin 1.2 H (0.2-1.0) mg/dL AST 15 (15-37) U/L ALT 20 (16-63) U/L Alkaline Phosphatase 93 (46-116) U/L Total Protein 7.1 (6.4-8.2) g/dL Albumin 3.1 L (3.4-5.0) g/dL Globulin 4.0 g/dL Albumin/Globulin Ratio 0.8 Urine Color Lt. yellow (YELLOW) Urine Clarity Clear (CLEAR) Urine pH 6.5 (5.0-9.0) Ur Specific [place] 1.015 (1.005-1.025) Urine Protein 30 A (NEG/TRACE) mg/dL Urine Glucose (UA) Negative (NEGATIVE) mg/dL Urine Ketones 15 A (NEGATIVE) mg/dL Urine Occult Blood Trace-i (NEGATIVE) Urine Nitrite Positive A (NEGATIVE) Urine Bilirubin Negative (NEGATIVE) Urine Urobilinogen 0.2 (0.2-1.0) EU/dL Ur Leukocyte Esterase Small A (NEGATIVE) Urine RBC 0-2 (0-2) #/HPF Urine WBC 5-10 A (NONE SEEN) #/HPF Ur Squamous Epith Cells Rare (NONE/RARE) #/LPF Urine Crystals None seen (None Seen) #/HPF Urine Bacteria Small A (NONE SEEN) #/HPF Urine Casts Seen A (NONE SEEN) #/LPF Hyaline Casts Rare Urine Mucus None seen (NONE SEEN) Ur Culture Indicated? Yes Discharge Plan Discharge Stand Alone Forms: Portal Instructions Chief Complaint: Nausea/Vomiting/Diarrhea Clinical Impression: Acute urinary retention Patient Disposition: Home, Self-Care Time of Disposition Decision: 17:54 Condition: Good Mode of Transportation: Private Vehicle Prescriptions / Home Meds: New ciprofloxacin HCl [Cipro] 500 mg tablet 500 mg PO BID 5 Days Qty: 10 0RF No Action atorvastatin 40 mg tablet 40 mg PO DAILY dorzolamide-timolol 22.3-6.8 mg/mL drops 1 drp OPHTHALMIC (EYE) BID Rx Instructions: BOTH EYES icosapent ethyl 1 gram capsule 2 g PO BID latanoprost 0.005 % drops 1 drp OPHTHALMIC (EYE) .QHS Rx Instructions: RIGHT EYE lisinopril 10 mg tablet 10 mg PO DAILY meloxicam 15 mg tablet 15 mg PO DAILY metoprolol tartrate 25 mg tablet 12.5 mg PO BID Rhopressa 0.02 % drops 1 drp OPHTHALMIC (EYE) DAILY Rx Instructions: RIGHT EYE tamsulosin 0.4 mg capsule 0.4 mg PO BID aspirin 81 mg tablet,delayed release (DR/EC) 81 mg PO DAILY lidocaine 5 % adhesive patch,medicated 1 patch topical DAILY Qty: 30 2RF Rx Instructions: leave on most painful area for up to 12 hrs each day cetirizine 10 mg tablet hyoscyamine sulfate 0.125 mg tablet, sublingual brimonidine 0.2 % drops OPHTHALMIC (EYE) fluticasone propionate 50 mcg/actuation spray,suspension INTRANASAL cephalexin 500 mg capsule 500 mg PO QID 10 Days Qty: 40 0RF Print Language: Canadian Instructions: More Catheter Placement and Care (ED) Referrals: Bayron Ba MD [Primary Care Provider] - 1 week Reno Valentin MD [Physician] - 1 week
[2024-03-11 17:15] LABS: Basophils Percent Auto 0.2 % (0.2-2.0); Eosinophils Absolute Auto 0.1 10^3/uL (0.0-0.7); Eosinophils Percent Auto 1.2 % (0.9-7.0); Hematocrit 42.4 % (42.0-54.0); Hemoglobin 14.7 g/dL (14.0-18.0); Immature Granulocytes Abs Auto 0.06 10^3/uL (0.00-0.03); Immature Granulocytes Pct Auto 0.6 % (0.0-0.5); Lymphocytes Absolute Auto 1.3 10^3/uL (1.2-3.8); Lymphocytes Percent Auto 12.1 % (20.5-60.0); Mean Corpuscular HGB Conc 34.7 g/dL (29.9-35.2); Mean Corpuscular Hemoglobin 32.4 pg (25.9-34.0); Mean Corpuscular Volume 93.4 fL (80.0-94.0); Mean Platelet Volume 10.8 fL (9.5-13.5); Monocytes Absolute Auto 0.7 10^3/uL (0.3-0.8); Monocytes Percent Auto 6.4 % (1.7-12.0); Neutrophils Absolute Auto 8.3 10^3/uL (1.4-6.5); Neutrophils Percent Auto 79.5 % (43.0-75.0); Platelet Count 146 10^3/uL (150-450); Red Blood Count 4.54 10^6/uL (4.70-6.10); Red Cell Distribution Width 12.7 % (11.0-15.0); White Blood Count 10.4 10^3/uL (4.0-11.0)
[2024-03-11 17:32] LABS: Bilirubin Urine NEGATIVE (NEGATIVE); Blood Urine TRACE-I (NEGATIVE); Clarity Urine CLEAR (CLEAR); Color Urine LT. YELLOW (YELLOW); Glucose Urine UA NEGATIVE (NEGATIVE); Ketones Urine 15 mg/dL (NEGATIVE); Leukocyte Esterase Urine SMALL (NEGATIVE); Nitrite Urine POSITIVE (NEGATIVE); Protein Urine 30 mg/dL (NEG/TRACE); Specific Gravity Urine 1.015 (1.005-1.025); Urobilinogen Urine 0.2 EU/dL (0.2-1.0); pH Urine 6.5 (5.0-9.0)
[2024-03-11 17:35] LABS: Urine Microscopic Indicated YES
[2024-03-11 17:35] LABS: Alanine Aminotransferase 20 U/L (16-63); Albumin Globulin Ratio 0.8; Albumin Level 3.1 g/dL (3.4-5.0); Alkaline Phosphatase 93 U/L (46-116); Anion Gap 11.7; Aspartate Amino Transferase 15 U/L (15-37); Bilirubin Total 1.2 mg/dL (0.2-1.0); Calcium 8.7 mg/dL (8.5-10.1); Carbon Dioxide 26.2 mmol/L (21.0-32.0); Chloride 103 mmol/L (98-107); Estimated GFR (African America >60 (>=60); Estimated GFR (Non-African Ame >60 (>=60); Glucose 112 mg/dL (74-106); Potassium 3.9 mmol/L (3.5-5.1); Sodium 137 mmol/L (136-145); Total Protein 7.1 g/dL (6.4-8.2)
[2024-03-11 17:46] LABS: Bacteria Urine SMALL #/HPF (NONE SEEN); Cast Seen? SEEN #/LPF (NONE SEEN); Crystals Seen? None Seen #/HPF (None Seen); Hyaline Casts Urine RARE; Mucus Urine NONE SEEN (NONE SEEN); RBC Urine 0-2 #/HPF (0-2); Squamous Epithelial Cell Urine RARE #/LPF (NONE/RARE); Urine Culture Indicated YES
[2024-03-11 18:25] VITALS: BP 152/70; PULSE 68; O2SAT 96
== END 2024-03-11 18:26 | disposition home or self-care (01) ==
PROVIDERS: Emergency Provider Emergency Medicine; PCP Family Medicine
DX: R33.9 Retention of urine, unspecified (principal)
CPT/HCPCS: 36415; 51702; 80053; 81001; 85025; 87086; 99284

== ENCOUNTER 2024-03-12 15:44 | Outpatient (OUT) | payer MEDICARE, SELFPAY | END 2024-03-12 15:45 | disposition home or self-care (01) | LOC: WC 15:44 | PROVIDERS: PCP Family Medicine; Visit Provider Physician Assistant | DX: I87.311 Chronic venous hypertension (idiopathic) with ulcer of right lower extremity (principal); L97.818 Non-pressure chronic ulcer of other part of right lower leg with other specified severity; R60.9 Edema, unspecified | CPT/HCPCS: G0463 ==

== ENCOUNTER 2024-03-17 13:55 | Outpatient (OUT) | payer MEDICARE, SELFPAY ==
--- NOTE | 2024-03-17 13:57 | VEIN_ITS ---
The [address] [address] Patient Name: KYLER RICHARD MRN: [id number] date: 1940 Sex: M Assigned Patient Location: Current Patient Location: Accession/Order Number: [id number] Exam Date: 03/17/2024 13:57 Report Date: 03/18/2024 07:05 At the request of: ESSENCE SHERIFF Procedure: VC SEGMENTAL PRESSURES EXAM: VC SEGMENTAL PRESSURES HISTORY: R09.89 Signs and symptoms involving circulatory system COMPARISON: None. FINDINGS: Segmental pressures presented as follows (right, left) in mmHg. 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
--- OUTSIDE RECORDS SUMMARY | 2024-03-17 14:11 | XMS_ITS | CCD ---
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 Name Role Phone Eliana Ba Primary Care Physician GERONIMO ., KARLOS Admitting Unavailable GERONIMO ., [...] CAMERON, CALVIN Consulting Unavailable Rocio Rocio Unavailable Giedraitis MD, Andrius Vytsahil Attending Unavailable Giedraitis , Andrius Vytautoli Attending Unavailable Giedraitis , Andrius Vytautas Attending Unavailable Giedraitis MD, Andrius Vytautas Attending Unavailable Giedraitis , Andrius Vytautas Attending Unavailable Orzech, Lazara X Attending Unavailable Orzech, Lazara X Admitting Unavailable Orzech, Lazara X Attending Unavailable Orzech, Lazara X Attending Unavailable Allergies Allergy Classification Reported Allergen(s) Allergy Type Date of Onset Reaction(s) Facility Quinolones (antibiotic) (1 source) levoFLOXacin; Translations: [levofloxacin] Drug Allergy Irritation (qualifier value) [facility] (4 sources) levoFLOXacin; Translations: [levofloxacin] Drug Allergy Irritation (qualifier value) [facility] Medications Current Medications Medication Drug Class(es) Dates [...] 20 cap(s), Refills(s) 0, Pharmacy: [id number], 160, cm, 09/26/22 13:50:00 EST, Height/Length Dosing, [...] 03/13/19 Status: [facility] Metoprolol Tartrate 25 MG [...] Ordered Start: 03-07-2022 take 1 capsule by [facility] twice daily tamsulosin 0.4 mg Cap 0.4 mg = 1 cap(s), Oral, BID, # 180 cap(s), Refills(s) 3, Pharmacy: [address], 160, cm, 10/16/21 14:26:00 EST, Height/Length [...] 09-28-2022 Episodic Other aftercare (1 source) Other skilled nursing (current) drug therapy; Translations: [OTH [facility] CURRENT DRUG THERAPY] Onset: 09-20-2022 Episodic Other aftercare (1 source) [facility] (current) use of aspirin; 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 [id number]+PG hlYWQ+OA0OJGSpM62ezB BtiF4bU7ATUMuAQoigZV VIPJlROgAnwcFpCX0ohW NjZXJu IC8+XG1nMHOkWdvdsMVm u7D8yUS5J69kgs7lAZme tQI5NXRdNeJjnwuhc1ti yAz8BIxuClqtGdBx AVAstU48QAB9dX06Yh26 uLUdeWEqp7gkgHc4EtRh IFDcPNJ4fKgcCHhin4Ps CJTdJ78hfBTtj9H7 IGNvbGxhcHNlOyBlbXB0 cQ1pFMwnwwism3uivrta Vdc5nb87gDJqd1Y0aOZ3 T6BsevB8VJJnrRRb SvsleQSRaO1obxhsd1si eqpiLqJgCQLqIOi6KLm2 DMDkxHmrYjNzMT33IEG7 RPXivlMmQ8XrEQZj cDcjHaX6l9H7Ug5XW2EP FwbyW9BHEKUVNRyvkML+ MI11ep07A5GuXhzkAts8 EMPvBCK5oQH1iB2j SXHgVDyod4H2qXZ0E3Su emWmbo3so5rwYGOgGBse E44pxSWpr9X9DTGewBB1 ACZyrPdiEdRidP43 Oyc+GZFwmAxrf4QlUjin z4zuo1kycEh1OzchWGOi zhXevPegAIY7v7ReDh5n WYSiyVA5sFU6wW9k PbLuVeX9OAzsX548KxVy oJIrNlquU89dJ4FedYO+ XMJjMvs4MKMujDdoHD2p M9NrRWOgcaxinGVe tMonTR9vGZWcgkwsGBOl pR4iUZRvM0a2WyOaTyX0 SHzzN8EfLPIalpqpFq80 uT6jOuNeUiG2TQwf R3RzgbX5VODckRUxJHbx CYP8V99fh5H1GRTzEJMw DUO4tOU3zX6vqRatwxco bGVmdDsgdmVydGlj XZskRPdnJ633YKTkrJsl PkNvZGluZyBEYXRlOiAg MDYvMjYvMjAyNDwvdGQ+ ZTUhCIT3sVlvSDPk gNTpPDhoXi0sjIuetZmp TH9jCGZxxvgqVJXrxA0w BEZeaFRkpMqaRF9vNRKt chlkm238KeOhTOE8 OAWxwTHrH6CweZ0tUyOk WINvXDXvJ7RlwAFhGSym N365MEjwCvT5WFKeqrOs I2HpSFOflMeyToL4 a2Q7Wb3Hz0JvmuffG7Cp vNDmOjFuDcimAFt9V2Ca PjwvdHI+VT41DPHpXC85 ZWp6WBD9uVwgGKmf WDYqA0SexR4bGiQgFDAd ZGRkOyc+PHRhYmxlIHdp ZHRoPScxMDAlJyBzdHls MN9lRc7aTERjGJOe hWrrdKYoCjEhz1vtQBBo QNpnDE7vvCzcR9OlvQH0 GOBrq6v4Nc11K60pR7Ih dXA+GVLvdOB8iTE4 zU1yQnHuMrC0QWpfS944 SqAxlQLtQhxfy0xpa9xu oBp6UjO1CQOidxFbmTwn GJB3z2LbFj59T24b IHdpZHRoPSIxNSUiIHZh tNahrn4rwW1wNc0+PGNv sAD2xSR3uG8bNaPwUzW1 HRzyI611EkHvdWYo Ljjxy5taz9jchSs3EuNq DQAuyoLsoHedRVH3z2Zq Pz21L7RszRluu3SbOme4 ku35xRCpe5V6pOZ2 P5AjJZBgwxkynYTcaMqb QW9rRAQjenseMYSogS1f RGIyS7j2ToVvReU8GSqm O0TgtsV1RPBmzQKd LWXvhNYBpH3cvdgyn2uw fcshNcBfJPXxUIv6KXv5 CNHybMlrXfMdYXV1NdC0 FMD1mMBrtF3twJdw ugdmaE2bTdj+SEL6pVGq kASRUP9lQztixGZ+PHRk REK1bHrxXSshLMDzkF6r YMGbS0x3JnOfFuO1 HNxwW3ZqrxS3CYZpuKTt APEznLQNnB6aqkbyv7vu ffooGeNlZINbLIq5JQh6 LWFsaWduOiBsZWZ0 PhB2CDR7rUXdmZ4dhLfs djqaeQ9xYug+QmlydGgg MUX6HOi5T2QbUgu5KMMd kXzeKA9ooRSzRQjg Yy3cqUgfdRwiIL0iZLDs vmipa844FtOxc5ruDGIl eYHpEHlrNXR0P61xt2B3 GNEfIEIaPYU6sDL7 pL8yzBvfkfntiBHzfBhd gaYwnBerVSoxOFavE670 EUQhlFrhRhArAYy3Q4Jr Blq5BGElcBzxWW8w oXPsQPzxWk6viWekfRcy OZ1kMNUcsdfwr028JzLz d2ksLWEspMNfPQpmGLT7 E34ty6Y4GOUgXOSe BIZ1xRJ7mM7ozFzbcvjx bGVmdDsgdmVydGljYWwt LPvyG332AJLgrCbyAoEo vQz0O1WeIph9FUKi yShgUF9hdEXpJZvgBj0s dWftlWdwER2cSSUcofvo t012QxGfv6edJACvoGUk FWupAUY1I34fn6G9 THQgCCVtNDD3gSN4sS5u bGlnbjogbGVmdDsgdmVy sDncQYdzPKvmV358QWRz cDsnPlBhdGllbnQg EBnuUTm5G1DvAdtfaEV+ TZ02CWGbMJ87pDExiBWl z5mooCz4AgTnIYQmOZP7 lBdgHRwsp4DuSPGk X89fvRZgm1K7PHOwaLwf nPUyIqVnvUS3pE6fLSpa fnvni3kxjqlwEsopw0lc vc01oH69E79hJVin ZHRoPSIzMCUiIHZhbGln vl6boE7cRg9+PGNvbCB3 kWU1oB3gWKZoPjY1EHgb L737XoUvgKVuLhmf j3mek7xrqIa3BoF0DRHe jaOjcBiqLLH8y1NxId73 H09zYXatSEThRPFnVXZc TRZisErjrf6pgB0i Ii8+BERayEK2hAA5dT2j AoJmQhE2KUjoC149IqBm sXFqShliT01kA6YybGH+ CUZaHho0PBXweEwk RX2omTSnULylZt8eTGG1 YvEpRgEnKBedM1MmCWVi vbgtbpxyfCR9FOVqYBUu eI47Cj7pxXceXZMp gWGYfG6zircno0doctnq VeDpPMYnYAq4XUh7NQDb rInpTyHbFCR3QgK1FBD9 wEXvqZ8ffLtzfotp oM6wQ4IpTZYrvmexSl00 vN7mSnHaYjZ0IIcmUdf+ A5EBUI3DCBUMD937P7Od Iik8BIIjkYqiLE3o eOCnHNyiUo5kqZxnoVbr KG0xADVmqrfhOXHmzI3a LRQqsQUzdBgqXF6fVDUk rutpv539TwNyPJI8 MOPjoIOoT4LoaE5dKgAl HGYiHAPzB9CxcRMgSRim I203CQlaTrT8SKHnxvMa B2VeUEOyxLooXxT2 d5Q0Wa8wXM8pEP7qRMAx XD17ZU73wPHrm9P3xVN3 M4IyGBIqlcezyebtdZH5 ZIZlCLRqkT27dMUl JYreQe7ze0L1j263EFAf SBBpdZ96Bd6gnErmNICt wPMRyK7vesbnh5qldssk YdCfEHLdQOw6JJy0 QSBqyLxdCcDmUUJ1OrZ7 NNI3zNSvbL1apWdwqjor lH0eRxr+ODEgWWVhcnM8 L3JuQvy8GCHjoAmr IL8cuVCdZRcbJf3epXyl zYixBK6mTQYzpgifNHPm vP8kUFNonADwoCmnLZ8z OGBazxhqw623YeEz IGC1MGSidMCkJ6JkzH1f SwTgGVXzDSOaO5PrmWJz VKrgP926SHqwHqO2GNKp haJaK9ByPXViiFei OhQ5b8X8Nm4QCSrhPI38 YQ33sWYmk5Q3zFW2Y4Oe RJLcxcpdopejzTZ0HQUt TOKmmH84eTPvCJik Oy1yd2C5m573ZPRyIYQr nV89Ad3zzFaqHIXqfABI qJ1chwgip9nuxqulLgJz VADlEAe5FZm0SJSc iJhuMaWiKLE3RfP3YVV7 mBKcoO2wfKhfwcrmgE4l Oyc+MCJoPFGbl8Vjn4Ot TQ51CG71S2UiFkvt dGFibGU+PHRhYmxlIHdp ZHRoPScxMDAlJyBzdHls QD1mDc8vFZFmUWKvgQwf jJXbMzOpa1qbPPDv VGnzBJ1dwZalN8VhjYM9 REDus1s0Yy58H86mJ2Kz dXA+JICyzQG7qKG5pD4s PvDxFoG3THzkS384 KwNtxBJdJlzdt6dai3pi bGt8FkVhAIEcrhWkgDxn AXE7q0GmDt69R38iTUqv ZHRoPSIyMCUiIHZh jKfesb0qrK4tKo8+PGNv aPU1bBO6bK2lHsRqPiO7 QMvcX144FxCynMWcZftv W76sV3UynNF+PHRy Vfl4WZPbwCjqJS0xeDVo DVwqXn2yBLG1UnKrYqFw LKntA7JnACJwkktqhlln fFU6IMOsEVWarE04 Bb2vnBydFb9yGHVbUBS9 LDUreFRnJ3RbtC4gPgZc TTPlBOWxY9AftPIuTZvi U490UQlgWwK4ZDTs rqAvK7FgODYjySepAxE2 b7Q1Ee8XmTrviNXvBF9q ZsLmCKf3R8DmKyy8ATJv nFbrWP6aqLQjNZna Xh1ggGqcyBcoQZ4dUZGy vnduh627FgHtp9swGRYl iWSkAByaLTA1Z77pf4E7 DTEqEPSuTSK1rUJ6 gU1ddSorjcrptLIefSpc odPdxDtuYRajNOruI997 DQYwrFpkPvPUDkx3X9Qe Gki3LYJkxBjmKD2e iQPnHQysDl7bePfvlIzn GQ9eFZRrjirob093XbYm z8dxVQJlmDRtZZpvKFV0 C96vh6E8CIXjOAOy PQO1lBJ8kF2tiRvpjbcn bGVmdDsgdmVydGljYWwt WNugU186EPBuwQblXv3J Hbs1U8YlZzr0OMZk bUbyKE2uiOCnCEnpPc8v cColiFqiDS5sDUFfyaic u344RwOlv6shVLRgjOSf OJiuWTG3Q85mh5W5 WVUnLREzSUT6fWK0aG3n bGlnbjogbGVmdDsgdmVy tOemBLajNXdeR037PEYb cDsnPlBheWVyOjwv dGQ+EW96br10D0MgGfte Dpv3VZLtWHX7fTT9xP1v MDQlCTrpl9D6uQD7N1Xh vjLzti7hz8lcYSTz UXwxD30yzJNei (more content not included)... Normal [facility] C Urineon 02-13-2024 Bacteria identified Cx Nom (U) Microbiology PROCEDURE: Urine Culture [R1] SOURCE: U Random BODY SITE: COLLECTED DATE/TIME: 02/11/2024 10:06 EDT RECEIVED DATE/TIME: 02/11/2024 18:24 EDT START DATE/TIME: 02/11/2024 18:24 EDT FREE TEXT SOURCE: KIM Lino APRN, Zoie FOX, RENA-C, Lazara X Lazara X FINAL REPORTS Final Report [] Verified [...] Locations R1: This test was performed at: [facility], [address] [place] [address], [facility] , , [facility] Comment on above: Performed By: #### [id number] #### [facility] [address] [place] [id number] [place] 02-12-2024 Screens [id number] [facility] Ambulatory Visit Summaryon 0 02-11-2024 [...] [facility] [address] , [place] [phone] Medications What How Much When Instructions Unchanged [...] for choosing us for your care. Normal [facility] Patient Educationon 02-11-20 Patient Education Urology Hematuria, [...] these instructions at home: Medicines ? Take cmep-fso-vqqwxdp and prescription medicines only as told by [...] the blood stops without treatment. ? Take uegk-mns-otpoksm and prescription medicines only as told by your health care provider. ? Drink enough fluid to keep your urine pale yellow. This information is not intended to replace advice given to you by your health care provider. Make sure you discuss any questions you have with your health care provider. Document Revised: 04/12/2021 Document Reviewed: 04/12/2021 [employer]jug Patient Education ? 2022 Micromuscle. Benign Prostatic Hyperplasia Benign prostatic hyperplasia (BPH) [...] the nig (more content not included)... Normal [facility] Urology Office/Clinic Noteon 02-11-2024 Urology Office/Clinic Note [...] with voice recognition artificial intelligence software, specifically [employer], Carnad and or [email or web address]. Substitutions may have occurred due to the [...] Urnls Dip Stick Auto w/o Microscopy POC 10621 2. Urethral stricture in male (N35.919: Unspecified [...] Instructions: 1 year JAYDON COE, [place] Maciel, URL [facility] [address], [place] [phone] Additional Instructions: Patient Education Hematuria, Adult Benign [...] Rhopressa 0.02% (more content not included)... Normal [facility] Comment on above: Result Comment: Elec tronically Signed By: KIM Lino APRN, [place] X\.br\Date and Time Signed: 02/11/24 10:41 EDT COVID/FLU RT-PCRon 3 SARS-CoV-2 (COVID-19) RNA TERRIE+probe Ql (Unsp spec) Positive PEVESA Other COVID/FLU RT-PCR Negative [employer] Other XR KNEE RT 3Von 01-23-2023 XR KNEE RT 3V EXAM: XR KNEE RT 3V HISTORY: Osteoarthritis of knee COMPARISON: None TECHNIQUE: 3 views FINDINGS: No acute fracture or dislocation. Moderate to severe degenerative changes. Unremarkable soft tissues. IMPRESSION: Moderate to severe degenerative changes. Electronically authenticated by: CALVIN BARNES Date: 2023-01-23 13:[address] [facility] INSULINon 09-25-2022 Insulin 6.0 uIU/mL Normal 2.6-24.[address] [facility] Comment on above: Performed By: #### I NSULIN #### [facility] [address] [place] [address] Dr. Wally Zapien BNPon 09-24-2022 Natriuretic peptide B (Bld) [Mass/Vol] 110.0 pg/mL Normal <=1,800.[address] [facility] Comment on above: Performed By: #### U RCX #### [facility] [address] [place] [address] Dr. Wally Zapien CBC AUTO DIFFon 09-24-2022 BASO # 0.0 103/ul Normal 0.0-0.1 [facility] Comment on above: Performed By: #### C BC #### [facility] [address] [place] [address] Dr. Wally Zapien Basophils/100 WBC (Bld) 1.0 % Normal 0.2-2.0 [facility] Comment on above: Performed By: #### C BC #### [facility] [address] [place] [address] Dr. Wally Zapien EO # 0.2 103/ul Normal 0.0-0.[address] [facility] Comment on above: Performed By: #### C BC #### [facility] [address] [place] [address] Dr. Wally Zapien Eosinophils/100 WBC (Bld) 4.2 % Normal 0.9-7.[address] [facility] Comment on above: Performed By: #### C BC #### [facility] [address] [place] [address] Dr. Wally Zapien Erythrocyte distribution width (RBC) [Ratio] 12.5 % Normal 11.0-15.[address] [facility] Comment on above: Performed By: #### C BC #### [facility] [address] [place] [address] Dr. Wally Zapien Hematocrit (Bld) [Volume fraction] 43.7 % Normal 42.0-54.0 [facility] Comment on above: Performed By: #### C BC #### [facility] [address] [place] [address] Dr. Wally Zapien Hemoglobin (Bld) [Mass/Vol] 15.4 g/dL Normal 14.0-18.0 [facility] Comment on above: Performed By: #### C BC #### [facility] [address] [place] [address] Dr. Wally Zapien IG # 0.02 10e3/ul Normal 0.00-0.03 [facility] Comment on above: Performed By: #### C BC #### [facility] [address] [place] [address] Dr. Wally Zapien IG % 0.5 % Normal 0.0-0.5 [facility] Comment on above: Performed By: #### C BC #### [facility] [address] [place] [address] Dr. Wally Zapien LYMPH # 1.7 103/ul Normal 1.2-3.8 [facility] Comment on above: Performed By: #### C BC #### [facility] [address] [place] [address] Dr. Wally Zapien Lymphocytes/100 WBC (Bld) 42.6 % Normal 20.5-60.0 [facility] Comment on above: Performed By: #### C BC #### [facility] [address] [place] [address] Dr. Wally Zapien MANUAL DIFF REQ NO Normal [facility] Comment on above: Performed By: #### C BC #### [facility] [address] [place] [address] Dr. Wally Zapien MCH (RBC) [Entitic mass] 31.6 pg Normal 25.9-34.0 [facility] Comment on above: Performed By: #### C BC #### [facility] [address] [address] [address] Wally Zapien MCHC (RBC) [Mass/Vol] 35.2 g/dL Normal 29.9-35.2 [facility] Comment on above: Performed By: #### C BC #### [facility] [address] [address] [address] Wally Zapien MCV (RBC) [Entitic vol] 89.5 fL Normal 80.0-94.0 [facility] Comment on above: Performed By: #### C BC #### [facility] [address] [place] [address] Dr. Wally Zapien MONO # 0.4 103/ul Normal 0.3-0.8 [facility] Comment on above: Performed By: #### C BC #### [facility] [address] [place] [address] Dr. Wally Zapien Monocytes/100 WBC (Bld) 9.2 % Normal 1.7-12.0 [facility] Comment on above: Performed By: #### C BC #### [facility] [address] [place] [address] Dr. Wally Zapien NEUT # 1.7 103/ul Normal 1.4-6.5 [facility] Comment on above: Performed By: #### C BC #### [facility] [address] [place] [address] Dr. Wally Zapien Neutrophils/100 WBC (Bld) 42.5 % Critically low 43.0-75.0 [facility] Comment on above: Performed By: #### C BC #### [facility] [address] [place] [address] Dr. Wally Zapien Platelet mean volume (Bld) [Entitic vol] 9.9 fL Normal 9.5-13.5 [facility] Comment on above: Performed By: #### C BC #### [facility] [address] [place] [address] Dr. Wally Zapien PLT 149 103/ul Critically low 150-450 [facility] Comment on above: Performed By: #### C BC #### [facility] [address] [place] [address] Dr. Wally Zapien RBC 4.88 106/ul Normal 4.70-6.10 [facility] Comment on above: Performed By: #### C BC #### [facility] [address] [place] [address] Dr. Wally Zapien WBC 4.0 103/ul Normal 4.0-11.0 [facility] Comment on above: Performed By: #### C BC #### [facility] [address] [place] [address] Dr. Wally Zapien CULTURE URINEon 09-24-2022 CULTURE URINE Culture Observations: LIGHT GROWTH OF MIXED SKIN GENNA. NO POTENTIAL PATHOGENS SEEN. Normal [facility] Comment on above: Performed By: #### U RCX #### [facility] [address] [place] [address] Dr. Wally Zapien FREE THYROXINE INDEX T7on FTI 2.52 Normal 1.30-4.50 [facility] Comment on above: Performed By: #### U RCX #### [facility] [address] [place] [address] Dr. Wally Zapien T3U 36.0 % Normal 33.0-40.0 [facility] Comment on above: Performed By: #### U RCX #### [facility] [address] [place] [address] Dr. Wally Zapien T4 [Mass/Vol] 7.00 ug/dL Normal 4.50-12.10 [facility] Comment on above: Performed By: #### U RCX #### [facility] [address] [place] [address] Dr. Wally Zapien GLYCOHEMOGLOBIN A1Con 2022 ADA RECOMMENDATION SEE BELOW Normal [facility] Comment on above: Result Comment: ADA RECOMMENDED LIMIT 4.0 - 6.0 ADA THERAPEUTIC TARGET < 7.0 ACTION SUGGESTED > 7.0 Performed By: #### A 1C #### [facility] [address] [place] [address] Dr. Wally Zapein Glucose [Mass/Vol] 123 mg/dL Normal [facility] Comment on above: Performed By: #### A 1C #### [facility] [address] [address] [address] Wally Zapien HbA1c (Bld) [Mass fraction] 5.9 % Normal 4.5-6.2 [facility] Comment on above: Performed By: #### A 1C #### [facility] [address] [address] [address] Wally Zapien LIPID PROFILEon 09-24-2022 CHOL-HDL RATIO NORM SEE BELOW Normal [facility] Comment on above: Result Comment: 3.3 - 4.4 LOW RISK 4.4 - 7.1 AVERAGE RISK 7.1 - 11.0 MODERATE RISK >11.0 HIGH RISK Performed By: #### U RCX #### [facility] [address] [address] [address] Wally Zapien Cholesterol [Mass/Vol] 117 mg/dL Normal <=200 [facility] Comment on above: Performed By: #### U RCX #### [facility] [address] [address] [address] Wally Zapien Cholesterol in HDL [Mass/Vol] 38 mg/dL Critically low 40-60 [facility] Comment on above: Performed By: #### U RCX #### [facility] [address] [address] [address] Wally Zapien Cholesterol in LDL [Mass/Vol] 32.6 mg/dL Normal [facility] Comment on above: Performed By: #### U RCX #### [facility] [address] [address] [address] Wally Zapien Cholesterol.total/Ch olesterol in HDL [Mass ratio] 3.1 {ratio} Normal [facility] Comment on above: Performed By: #### U RCX #### [facility] [address] [address] [address] Wally Zapien HDL NORMAL > or = 60 mg/dl - LOW CARDIOVASCULAR RISK <40 mg/dl - HIGH CARDIOVASCULAR RISK Normal [facility] Comment on above: Performed By: #### U RCX #### [facility] [address] [address] [address] Wally Zapien LDL CALC NORMAL SEE BELOW Normal [facility] Comment on above: Result Comment: <100 mg/dl OPTIMAL 100 - 129 mg/dl NEAR OR ABOVE OPTIMAL 130 - 159 mg/dl BORDERLINE HIGH 160 - 189 mg/dl HIGH >190 mg/dl VERY HIGH Performed By: #### U RCX #### [facility] [address] [address] [address] Wally Zapien Triglyceride [Mass/Vol] 232 mg/dL Critically high <=150 [facility] Comment on above: Performed By: #### U RCX #### [facility] [address] [address] [address] Wally Zapien VLDL CALC 46.4 mg/dL Normal [facility] Comment on above: Performed By: #### U RCX #### [facility] [address] [address] [address] Wally Zapien PROF 14(COMP METB)on 023 Albumin [Mass/Vol] 3.8 g/dL Normal 3.4-5.0 [facility] Comment on above: Performed By: #### B LEASING AGENT, T7, LIPID, TSH, CMP, URIC #### [facility] [address] [address] [address] Wally Zapien Albumin/Globulin [Mass ratio] 1.2 {ratio} Normal [facility] Comment on above: Performed By: #### B LEASING AGENT, T7, LIPID, TSH, CMP, URIC #### [facility] [address] [address] [address] Wally Zapien ALP [Catalytic activity/Vol] 80 U/L Normal 46-[address] [facility] Comment on above: Performed By: #### B LEASING AGENT, T7, LIPID, TSH, CMP, URIC #### [facility] [address] [address] [address] Wally Zapien ALT [Catalytic activity/Vol] 34 U/L Normal 16-63 [facility] Comment on above: Performed By: #### B LEASING AGENT, T7, LIPID, TSH, CMP, URIC #### [facility] [address] [place] [address] Dr. Wally Zapien Anion gap [Moles/Vol] 11.3 mmol/L Normal [facility] Comment on above: Performed By: #### B LEASING AGENT, T7, LIPID, TSH, CMP, URIC #### [facility] [address] [place] [address] Dr. Wally Zapien AST [Catalytic activity/Vol] 24 U/L Normal 15-37 [facility] Comment on above: Performed By: #### B LEASING AGENT, T7, LIPID, TSH, CMP, URIC #### [facility] [address] [place] [address] Dr. Wally Zapien Bilirubin [Mass/Vol] 1.0 mg/dL Normal 0.2-1.0 [facility] Comment on above: Performed By: #### B LEASING AGENT, T7, LIPID, TSH, CMP, URIC #### [facility] [address] [place] [address] Dr. Wally Zapien Calcium [Mass/Vol] 8.5 mg/dL Normal 8.5-10.1 [facility] Comment on above: Performed By: #### B LEASING AGENT, T7, LIPID, TSH, CMP, URIC #### [facility] [address] [place] [address] Dr. Wally Zapien Chloride [Moles/Vol] 105 mmol/L Normal 98-[address] [facility] Comment on above: Performed By: #### B LEASING AGENT, T7, LIPID, TSH, CMP, URIC #### [facility] [address] [place] [address] Dr. Wally Zapien CO2 [Moles/Vol] 28.6 mmol/L Normal 21.0-32.0 [facility] Comment on above: Performed By: #### B LEASING AGENT, T7, LIPID, TSH, CMP, URIC #### [facility] [address] [place] [address] Dr. Wally Zapien Creatinine [Mass/Vol] 0.74 mg/dL Normal 0.70-1.30 [facility] Comment on above: Performed By: #### B LEASING AGENT, T7, LIPID, TSH, CMP, URIC #### [facility] [address] [place] [address] Dr. Wally Zapien EGFR-AF BANGLADESHI >60 Normal >=60 [facility] Comment on above: Performed By: #### B LEASING AGENT, T7, LIPID, TSH, CMP, URIC #### [facility] [address] [address] [address] Wally Zapien EGFR-NON AF BANGLADESHI >60 Normal >=60 [facility] Comment on above: Performed By: #### B LEASING AGENT, T7, LIPID, TSH, CMP, URIC #### [facility] [address] [address] [address] Wally Zapien Globulin (S) [Mass/Vol] 3.2 g/dL Normal [facility] Comment on above: Performed By: #### B LEASING AGENT, T7, LIPID, TSH, CMP, URIC #### [facility] [address] [address] [address] Wally Zapien Glucose [Mass/Vol] 102 mg/dL Normal 74-106 [facility] Comment on above: Performed By: #### B LEASING AGENT, T7, LIPID, TSH, CMP, URIC #### [facility] [address] [address] [address] Wally Zapien Potassium [Moles/Vol] 3.9 mmol/L Normal 3.5-5.[address] [facility] Comment on above: Performed By: #### B LEASING AGENT, T7, LIPID, TSH, CMP, URIC #### [facility] [address] [address] [address] Wally Zapien Protein [Mass/Vol] 7.0 g/dL Normal 6.4-8.2 [facility] Comment on above: Performed By: #### B LEASING AGENT, T7, LIPID, TSH, CMP, URIC #### [facility] [address] [address] [address] Wally Zapien Sodium [Moles/Vol] 141 mmol/L Normal 136-145 [facility] Comment on above: Performed By: #### B LEASING AGENT, T7, LIPID, TSH, CMP, URIC #### [facility] [address] [address] [address] Wally Zapien Urea nitrogen [Mass/Vol] 19.0 mg/dL Critically high 7.0-18.0 [facility] Comment on above: Performed By: #### B LEASING AGENT, T7, LIPID, TSH, CMP, URIC #### [facility] [address] [place] [address] Dr. Wally Zapien Urea nitrogen/Creatinine [Mass ratio] 25.7 mg/mg Normal [facility] Comment on above: Performed By: #### B LEASING AGENT, T7, LIPID, TSH, CMP, URIC #### [facility] [address] [place] [address] Dr. Wally Zapien TSHon 09-24-2022 TSH 1.535 uIU/mL Normal 0.358-3.740 [facility] Comment on above: Performed By: #### U RCX #### [facility] [address] [place] [address] Dr. Wally Zapien UA RANDOM W/MICROSCOPICon BACTERIA NONE SEEN Normal NONE SEEN [facility] Comment on above: Performed By: #### U RCX #### [facility] [address] [place] [address] Dr. Wally Zapien Bilirubin Ql (U) Negative Normal NEGATIVE [facility] Comment on above: Performed By: #### U RCX #### [facility] [address] [place] [address] Dr. Wally Zapien CAST NONE SEEN Normal NONE [facility] Comment on above: Performed By: #### U RCX #### [facility] [address] [place] [address] Dr. Wally Zapien Clarity (U) CLEAR Normal CLEAR [facility] Comment on above: Performed By: #### U RCX #### [facility] [address] [place] [address] Dr. Wally Zapien Color (U) YELLOW Normal YELLOW [facility] Comment on above: Performed By: #### U RCX #### [facility] [address] [place] [address] Dr. Wally Zapien Crystals LM Nom (Urine sed) NONE SEEN Normal NONE SEEN [facility] Comment on above: Performed By: #### U RCX #### [facility] [address] [address] [address] Wally Zapien Epithelial cells LM Ql (Urine sed) FEW Abnormal NONE SEEN /RARE [facility] Comment on above: Performed By: #### U RCX #### [facility] [address] [address] [address] Wally Zapien Glucose Ql (U) Negative Normal NEGATIVE [facility] Comment on above: Performed By: #### U RCX #### [facility] [address] [address] [address] Wally Zapien Hemoglobin Ql (U) TRACE-INTACT Abnormal NEGATIVE [facility] Comment on above: Performed By: #### U RCX #### [facility] [address] [address] [address] Wally Zapien Ketones Ql (U) Negative Normal NEGATIVE [facility] Comment on above: Performed By: #### U RCX #### [facility] [address] [address] [address] Wally Zapien LEUKOCYTES Negative Normal NEGATIVE [facility] Comment on above: Performed By: #### U RCX #### [facility] [address] [address] [address] Wally Zapien MUCOUS LARGE Abnormal NONE SEEN [facility] Comment on above: Performed By: #### U RCX #### [facility] [address] [place] [address] Dr. Wally Zapien Nitrite Ql (U) Negative Normal NEGATIVE [facility] Comment on above: Performed By: #### U RCX #### [facility] [address] [address] [address] Wally Zapien pH (U) 6.5 [pH] Normal 5-9 [facility] Comment on above: Performed By: #### U RCX #### [facility] [address] [place] [address] Dr. Wally Zapien RBC 2-5 Abnormal 0-2 [facility] Comment on above: Performed By: #### U RCX #### [facility] [address] [place] [address] Dr. Wally Zapien SPEC GRAVITY 1.025 Normal 1.005-<=1.025 [facility] Comment on above: Performed By: #### U RCX #### [facility] [address] [place] [address] Dr. Wally Zapien UA PROTEIN TRACE Normal NEGATIVE/ TRACE [facility] Comment on above: Performed By: #### U RCX #### [facility] [address] [place] [address] Dr. Wally Zapien Urobilinogen Qn (U) 1.0 {Suma'U}/dL Normal 0.2 - 1. 0 [facility] Comment on above: Performed By: #### U RCX #### [facility] [address] [place] [address] Dr. Wally Zapien WBC 0-2 Abnormal NONE SEEN [facility] Comment on above: Performed By: #### U RCX #### [facility] [address] [place] [address] Dr. Wally Zapien URIC ACID SERUMon 09-24-2022 Urate [Mass/Vol] 3.7 mg/dL Normal 3.5-7.2 [facility] Comment on above: Performed By: #### B LEASING AGENT, T7, LIPID, TSH, CMP, URIC #### [facility] [address] [place] [address] Dr. Wally Zapien VITAMIN D 25 OHon 09-24-2022 VIT D 25-OH 42.6 ng/mL Normal [facility] Comment on above: Performed By: #### U RCX #### [facility] [address] [place] [address] Dr. Wally Zapien VIT D RANGES SEE BELOW Normal [facility] Comment on above: Result Comment: <20 ng/mL Vit D deficient 20 - <30 ng/mL Vit D insufficient 30 - 100 ng/mL Vit D sufficient >100 ng/mL Potential Toxicity Performed By: #### U RCX #### [facility] [address] [place] [address] Dr. Wally Zapien CBC AUTO DIFFon 09-18-2022 BASO # 0.0 103/ul Normal 0.0-0.1 [facility] Comment on above: Performed By: #### C BC #### [facility] [address] [address] [address] Walyl Zapien Basophils/100 WBC (Bld) 0.7 % Normal 0.2-2.0 [facility] Comment on above: Performed By: #### C BC #### [facility] [address] [place] [address] Dr. Wally Zapien EO # 0.1 103/ul Normal 0.0-0.7 [facility] Comment on above: Performed By: #### C BC #### [facility] [address] [place] [address] Dr. Wally Zapien Eosinophils/100 WBC (Bld) 2.8 % Normal 0.9-7.0 [facility] Comment on above: Performed By: #### C BC #### [facility] [address] [place] [address] Dr. Wally Zapien Erythrocyte distribution width (RBC) [Ratio] 12.7 % Normal 11.0-15.0 [facility] Comment on above: Performed By: #### C BC #### [facility] [address] [place] [address] Dr. Wally Zapien Hematocrit (Bld) [Volume fraction] 44.1 % Normal 42.0-54.0 [facility] Comment on above: Performed By: #### C BC #### [facility] [address] [place] [address] Dr. Wally Zapien Hemoglobin (Bld) [Mass/Vol] 15.3 g/dL Normal 14.0-18.0 [facility] Comment on above: Performed By: #### C BC #### [facility] [address] [place] [address] Dr. Wally Zapien IG # 0.01 10e3/ul Normal 0.00-0.03 [facility] Comment on above: Performed By: #### C BC #### [facility] [address] [place] [address] Dr. Wally Zapien IG % 0.2 % Normal 0.0-0.5 [facility] Comment on above: Performed By: #### C BC #### [facility] [address] [place] [address] Dr. Wally Zapien LYMPH # 1.8 103/ul Normal 1.2-3.8 [facility] Comment on above: Performed By: #### C BC #### [facility] [address] [place] [address] Dr. Wally Zapien Lymphocytes/100 WBC (Bld) 43.0 % Normal 20.5-60.0 [facility] Comment on above: Performed By: #### C BC #### [facility] [address] [place] [address] Dr. Wally Zapien MANUAL DIFF REQ NO Normal [facility] Comment on above: Performed By: #### C BC #### [facility] [address] [place] [address] Dr. Wally Zapine MCH (RBC) [Entitic mass] 32.1 pg Normal 25.9-34.0 [facility] Comment on above: Performed By: #### C BC #### [facility] [address] [place] [address] Dr. Wally Zapien MCHC (RBC) [Mass/Vol] 34.7 g/dL Normal 29.9-35.2 [facility] Comment on above: Performed By: #### C BC #### [facility] [address] [place] [address] Dr. Wlaly Zapien MCV (RBC) [Entitic vol] 92.5 fL Normal 80.0-94.0 [facility] Comment on above: Performed By: #### C BC #### [facility] [address] [place] [address] Dr. Wally Zapien MONO # 0.4 103/ul Normal 0.3-0.8 [facility] Comment on above: Performed By: #### C BC #### [facility] [address] [place] [address] Dr. Wally Zapien Monocytes/100 WBC (Bld) 9.2 % Normal 1.7-12.0 [facility] Comment on above: Performed By: #### C BC #### [facility] [address] [place] [address] Dr. Wally Zapien NEUT # 1.9 103/ul Normal 1.4-6.5 [facility] Comment on above: Performed By: #### C BC #### [facility] [address] [place] [address] Dr. Wally Zapien Neutrophils/100 WBC (Bld) 44.1 % Normal 43.0-75.0 [facility] Comment on above: Performed By: #### C BC #### [facility] [address] [place] [address] Dr. Wally Zapien Platelet mean volume (Bld) [Entitic vol] 10.4 fL Normal 9.5-13.5 [facility] Comment on above: Performed By: #### C BC #### [facility] [address] [place] [address] Dr. Wally Zapien PLT 152 103/ul Normal 150-[address] [facility] Comment on above: Performed By: #### C BC #### [facility] [address] [place] [address] Dr. Wally Zapien RBC 4.77 106/ul Normal 4.70-6.[address] [facility] Comment on above: Performed By: #### C BC #### [facility] [address] [place] [address] Dr. Wally Zapien WBC 4.2 103/ul Normal 4.0-11.[address] [facility] Comment on above: Performed By: #### C BC #### [facility] [address] [place] [address] ABD/PELVIS WO CONon [...] MAYRA LOPEZ Date: 2022-09-18 13:[address] [facility] ER URINE PROFILEon 3 Bilirubin Ql (U) SMALL Abnormal NEGATIVE [facility] Comment on above: Performed By: #### BIMAL PADRONRO #### [facility] [address] [address] [address] Wally Zapien Clarity (U) SL CLOUDY Abnormal CLEAR [facility] Comment on above: Performed By: #### BIMAL PADRONRO #### [facility] [address] [address] [address] Wally Zapien Color (U) RED Abnormal YELLOW [facility] Comment on above: Performed By: #### MANSOOR PADRONICRO #### [facility] [address] [place] [address] Dr. Wally GERBER A micrscopic examination will be performed if indicated. Normal [facility] Comment on above: Performed By: #### E MANSOOR WILLISICRO #### [facility] [address] [place] [address] Dr. Wally Zapien Glucose Ql (U) Negative Normal NEGATIVE [facility] Comment on above: Performed By: #### Olinda WILLIS UMICRO #### [facility] [address] [place] [address] Dr. Wally Zapien Hemoglobin Ql (U) LARGE Abnormal NEGATIVE [facility] Comment on above: Performed By: #### BIMAL PADRONRO #### [facility] [address] [place] [address] Dr. Wally Zapien Ketones Ql (U) TRACE Abnormal NEGATIVE [facility] Comment on above: Performed By: #### BIMAL PADRONRO #### [facility] [address] [place] [address] Dr. Wally Zapien LEUKOCYTES TRACE Abnormal NEGATIVE [facility] Comment on above: Performed By: #### BIMAL PADRONRO #### [facility] [address] [place] [address] Dr. Wally Zapien Nitrite Ql (U) Positive Abnormal NEGATIVE [facility] Comment on above: Performed By: #### BIMAL PADRONRO #### [facility] [address] [place] [address] Dr. Wally Zapien pH (U) 5.5 [pH] Normal 5-[address] [facility] Comment on above: Performed By: #### BIMAL PADRONRO #### [facility] [address] [place] [address] Dr. Wally Zapien Protein (U) [Mass/Vol] 100 mg/dL Abnormal NEGATIVE/ TRACE [facility] Comment on above: Performed By: #### BIMAL PADRONRO #### [facility] [address] [place] [address] Dr. Wally Zapien SPEC GRAVITY 1.025 Normal 1.005-<=1.025 [facility] Comment on above: Performed By: #### BIMAL PADRONRO #### [facility] [address] [place] [address] Dr. Wally Zapien UR MICRO IND INDICATED Normal [facility] Comment on above: Performed By: #### KERRI PADRON #### [facility] [address] [place] [address] Dr. Wally Zapien Urobilinogen Qn (U) 1.0 {Suma'U}/dL Normal 0.2 - 1. [address] [facility] Comment on above: Performed By: #### KERRI PADRON #### [facility] [address] [place] [address] Dr. Wally Zapien PROF CHEM 8 (BAS METB)on Anion gap [Moles/Vol] 10.5 mmol/L Normal [facility] Comment on above: Performed By: #### U RCX #### [facility] [address] [place] [address] Dr. Wally Zapien Calcium [Mass/Vol] 8.6 mg/dL Normal 8.5-10.1 [facility] Comment on above: Performed By: #### U RCX #### [facility] [address] [place] [address] Dr. Wally Zapien Chloride [Moles/Vol] 105 mmol/L Normal 98-107 [facility] Comment on above: Performed By: #### U RCX #### [facility] [address] [place] [address] Dr. Wally Zapien CO2 [Moles/Vol] 28.8 mmol/L Normal 21.0-32.0 [facility] Comment on above: Performed By: #### U RCX #### [facility] [address] [place] [address] Dr. Wally Zapien Creatinine [Mass/Vol] 0.85 mg/dL Normal 0.70-1.30 [facility] Comment on above: Performed By: #### U RCX #### [facility] [address] [place] [address] Dr. Wally Zapien EGFR-AF BANGLADESHI >60 Normal >=60 [facility] Comment on above: Performed By: #### U RCX #### [facility] [address] [place] [address] Dr. Wally Zapien EGFR-NON AF BANGLADESHI >60 Normal >=60 [facility] Comment on above: Performed By: #### U RCX #### [facility] [address] [address] [address] Wally Zapien Glucose [Mass/Vol] 112 mg/dL Critically high 74-106 [facility] Comment on above: Performed By: #### U RCX #### [facility] [address] [address] [address] Wally Zapien Potassium [Moles/Vol] 4.3 mmol/L Normal 3.5-5.1 [facility] Comment on above: Performed By: #### U RCX #### [facility] [address] [address] [address] Wally Zapien Sodium [Moles/Vol] 140 mmol/L Normal 136-145 [facility] Comment on above: Performed By: #### U RCX #### [facility] [address] [address] [address] Wally Zapien Urea nitrogen [Mass/Vol] 23.0 mg/dL Critically high 7.0-18.0 [facility] Comment on above: Performed By: #### U RCX #### [facility] [address] [address] [address] Wally Zapien Urea nitrogen/Creatinine [Mass ratio] 27.1 mg/mg Normal [facility] Comment on above: Performed By: #### U RCX #### [facility] [address] [address] [address] Wally Zapien URINE MICROSCOPIC ONLYon BACTERIA TRACE Abnormal NONE SEEN [facility] Comment on above: Performed By: #### BIMAL PADRONRO #### [facility] [address] [address] [address] Wally Zapien Bacteria identified Cx Nom (U) NOT INDICATED Normal [facility] Comment on above: Performed By: #### E LAZARO UMICRO #### [facility] [address] [address] [address] Wally Zapien CAST NONE SEEN Normal NONE SEEN [facility] Comment on above: Performed By: #### E RUR, UMICRO #### [facility] [address] [address] [address] Wally Zapien Crystals LM Nom (Urine sed) NONE SEEN Normal NONE SEEN [facility] Comment on above: Performed By: #### E RUR, UMICRO #### [facility] [address] [address] [address] Wally Zapien Epithelial cells LM Ql (Urine sed) RARE Normal NONE SEEN /RARE [facility] Comment on above: Performed By: #### E RUR, UMICRO #### [facility] [address] [address] [address] Wally Zapien MUCOUS NONE SEEN Normal NONE SEEN [facility] Comment on above: Performed By: #### E RUR, UMICRO #### [facility] [address] [place] [address] Dr. Wally Zapien RBC (U) [#/Vol] /uL Abnormal 0-2 [facility] Comment on above: Performed By: #### E RUR, UMICRO #### [facility] [address] [address] [address] Wally Zapien WBC 2-5 Abnormal NONE SEEN [facility] Comment on above: Performed By: #### E RUR, UMICRO #### [facility] [address] [place] [address] Dr. Wally Zapien Vital Signs Date Time Vital Sign Value Performing Clinician Facility 02-11-2024 09:59-0400 Blood Pressure Location Lazara RamoSanta [employer] [facility] 02-11-2024 09:59-0400 Diastolic blood pressure 84 mm[Hg] Lazara Lino [facility] 02-11-2024 09:59-0400 Heart rate 71 /min Lazara [employer] [facility] 02-11-2024 09:59-0400 Systolic blood pressure 138 mm[Hg] Lazara Lino [facility] 07-17-2023 15:40-0500 Body height 160.02 cm Rocio Rocio Other [facility] Other 07-17-2023 15:40-0500 Body mass index (BMI) [Ratio] 37.55 kg/m2 Rocio Rocio Other [facility] Other 07-17-2023 15:40-0500 Body temperature 98.2 [degF] Rocio Rocio Other [facility] Other 07-17-2023 15:40-0500 Body weight 96.16 kg Rocio Rocio Other [facility] Other 07-17-2023 15:40-0500 Diastolic blood pressure 76 mm[Hg] Rocio Rocio Other [facility] Other 07-17-2023 15:40-0500 Respiratory rate 18 /min Rocio Rocio Other [facility] Other 07-17-2023 15:40-0500 SaO2% (BldA) [Mass fraction] 96 % Rocio Rocio Other [facility] Other 07-17-2023 15:40-0500 Systolic blood pressure 134 mm[Hg] Rocio Rocio Other [facility] Other 09-26-2022 13:26-0500 Blood Pressure Location [place] [facility] [place] 09-26-2022 13:26-0500 Diastolic blood pressure 74 mm[Hg] [place] [facility] 09-26-2022 13:26-0500 Heart rate 52 /min [facility] 09-26-2022 13:26-0500 Systolic blood pressure 173 mm[Hg] [place] [facility] 04-16-2022 13:49-0400 Diastolic blood pressure 87 mm[Hg] [place] [facility] 04-16-2022 13:49-0400 Mean blood pressure 110 mm[Hg] [place] [facility] 04-16-2022 13:49-0400 Systolic blood pressure 156 mm[Hg] [facility] 04-16-2022 13:37-0400 Blood Pressure Location [facility] 04-16-2022 13:37-0400 Diastolic blood pressure 102 mm[Hg] [place] [facility] 04-16-2022 13:37-0400 Heart rate 81 /min [facility] 04-16-2022 13:37-0400 Respiratory rate 16 /min [facility] 04-16-2022 13:37-0400 Systolic blood pressure 191 mm[Hg] [place] [facility] Encounters Encounter Date Encounter Type Care Provider Facility Start: 03-17-2024 ambulatory Lazara X Orzech Facilit y:[facility] Start: 02-11-2024 End: 02-11-2024 Lab Drop off Lazara X Orzech [facility] Start: 02-11-2024 End: 02-11-2024 ambulatory Lazara X Orzech Facility:[facility] Start: 02-11-2024 End: 02-11-2024 Patient encounter procedure Lazara X Orzech [facility] Start: 11-18-2023 End: 11-19-2023 ambulatory Fabrice Dias MD Facility: [facility] Start: 10-28-2023 End: 10-29-2023 ambulatory Fabrice Dias MD Facility: [facility] Start: 09-30-2023 End: 10-01-2023 ambulatory Fabrice Dias MD Facility: [facility] Start: 2023 End: 09-24-2023 ambulatory Fabrice Dias MD Facility: [facility] Start: 07-17-2023 End: 07-17-2023 ambulatory Rocio Chan Other [facility] Other Start: 07-17-2023 Office outpatient visit 15 minutes Rocio Chan [facility] Start: 05-27-2023 End: 05-28-2023 ambulatory Fabrice Dias MD Facility: [facility] Start: 01-23-[address] ELIANA BA . Facili ty:[facility] Start: 09-26-2022 End: 09-26-2022 Patient encounter procedure [place] [facility] Start: 09-24-2022 End: 09-25-[address] ELIANA BA . Facility:[facility] Start: 09-18-2022 End: 09-18-2022 ambulatory KARLOS MELTON . Facility:[facility] Start: 04-16-2022 End: 04-16-2022 Patient encounter procedure [facility] Procedures Date Procedure Procedure Detail Performing Clinician Start: 09-24-2022 PSA screening KARLOS ALVAREZ . Comment on above: Performed By: #### U RCX #### [facility] [address] [place] [address] Dr. Wally Zapien Start: 03-17-2019 Cystoscope, device ( physical object) [place] [facility] Cardiac catheterization Patr ick JAYDON Coronary artery bypass graft [facility] Extraction of cataract Patri ck [facility] Hydrocelectomy [place] MEYER S Inguinal herniorrhaphy Patri ck [facility] Large intestine excision Pat noe [facility] Prosthetic arthropla sty of the hip [facility] Repair of musculoten dinous cuff of shoulder [facility] Tonsillectomy and adenoidectomy [facility] Immunizations Immunization Date Immunization Notes Care Provider [facility] 05-24-2022 influenza virus vacc ine, unspecified formulation [facility] 04-20-2022 SARS-CoV-2 mRNA (omohdqunhuf-nfqi-twjuni e) vaccine [employer] [facility] 06-19-2021 SARS-CoV-2 (COVID-19 ) mRNA BNT-162b2 vax [employer] [facility] 06-01-2021 influenza virus vacc ine, unspecified formulation [employer] [facility] 05-23-2021 influenza virus vacc ine, unspecified formulation [employer] [facility] 11-10-2020 SARS-CoV-2 (COVID-19 ) mRNA BNT-162b2 vax [employer] [facility] 10-20-2020 SARS-CoV-2 (COVID-19 ) mRNA BNT-162b2 vax [employer] [facility] 08-04-2020 zoster vaccine recombinant [employer] [facility] 07-06-2020 SARS-CoV-2 (COVID-19 ) Ad26 vaccine, recombinant [employer] [facility] 06-24-2020 influenza virus vacc ine, unspecified formulation [employer] [facility] 06-03-2020 zoster vaccine recombinant [employer] [facility] 06-02-2020 SARS-CoV-2 (COVID-19 ) Ad26 vaccine, recombinant [employer] [facility] [place] 05-26-2020 influenza virus vacc ine, unspecified formulation [facility] 05-29-2019 influenza virus vacc ine, unspecified formulation [facility] 06-17-2018 influenza virus vacc ine, unspecified formulation [facility] [employer] 05-14-2017 influenza virus vacc ine, unspecified formulation [facility] [employer] 05-14-2017 pneumococcal polysaccharide vaccine, 23 valent [facility] 05-17-2016 influenza virus vacc ine, unspecified formulation [facility] [employer] [facility] 05-17-2016 pneumococcal conjuga te vaccine, 13 valent [facility] 05-16-2015 influenza virus vacc ine, unspecified formulation [facility] Payers Date Payer Category Payer Private Health Insurance 1957 Medicare [id number] 1940 Unknown [id number] 2.16.84 [id number] 1940 Unknown [id number] 2.16.84 0.1.088022.3.579.2.593 1940 Unknown [id number] 2.16.84 0.1.663399.3.579.2.593 1940 Unknown [id number] 2.16. 840.1.973933.3.579.2.196 1940 Unknown [id number] 2.16. 840.1.275478.3.579.2.196 1940 Unknown [id number] 2.16. 840.1.982249.3.579.2.196 1940 Unknown [id number] 2.16. 840.1.647671.3.579.2.196 1940 Unknown [id number] 2.16. 840.1.764376.3.579.2.196 1940 Unknown [id number] 2.16.8 40.1.970746.3.579.2.727 1940 Unknown [id number] 2.16.8 40.1.024717.3.579.2.727 1940 Unknown [id number] 2.16.8 40.1.336033.3.579.2.727 Social History Date Type Detail Facility Start: 04-16-2022 End: 02-11-2024 Tobacco smoking status Never smoked tobacco (finding) [facility] Tobacco smoking status Never [facility] Sex Assigned At Male [facility] Functional Status Date Assessment Result Facility 02-11-2024 Functional Status N/A [facility] 09-26-2022 Functional Status N/A [facility] 04-16-2022 Functional Status N/A [facility] Clinical Notes 10-06-2020 to 02-11-2024 Note Date & Type Note Facility 02-11-2024 Evaluation + Plan note Diagnostic Tests PendingUrine Culture 02/11/24 [facility] 02-11-2024 Hospital Discharge instructions Patient Education 02/11/2024 [...] Follow these instructions at home: Medicines Take fcas-dut-ewibiqm and prescription medicines only as told by [...] or the blood stops without treatment. Take itew-cdi-wkhwdrk and prescription medicines only as told by your health care provider. Drink enough fluid to keep your urine pale yellow. This information is not intended to replace advice given to you by your health care provider. Make sure you discuss any questions you have with your health care provider. Document Revised: 04/12/2021 Document Reviewed: 04/12/2021 [employer] Patient Education 2022 Micromuscle. 02/11/2024 10:34:29 Benign Prostatic Hyperplasia Benign Prostatic [...] urethra. Follow these instructions at home: Take pwka-wtf-ncxmnbi and prescription medicines only as told by [...] provider. Document Revised: 02/28/2022 Document Reviewed: 02/28/2022 [employer] Patient Education 2022 Micromuscle. Follow Up Care 04/16/2022 14:54:37 With:KIM Lino APRN, PARVIN Kirk, URL Address: When: Unknown Comments:1 year With:JAYDON COE, Reno Maciel, URL Address: [facility] [address], [place] [address] [phone] When: Unknown [facility] 02-11-2024 Note - From: Julia Charlton To: EU - Administrative; Sent: 02/11/2024 10:28:36 EDT Show up: 08/26/2024 10:28:00 EST Subject: schedule 1 yr f/u Due Date/Time: 02/02/2025 10:28:00 EDT Reminder/Recall Patient needs scheduled for a 1 yr f/u, no labs [facility] 07-17-2023 Evaluation note Encounter Date Diagnosis Assessment [...] no improvement in 2 to 3 days [facility] Other 02-01-2023 Hospital Discharge instructions Patient Education [...] or mouth. Supplies needed: Soap. Alcohol-based hand php magento developer. Standard cleaning products. Disinfectants, such as bleach. [...] water are not available, use alcohol-based hand php magento developer. Avoid touching your face, mouth, nose, or [...] water. Air-dry your dishes or use a correctional captain. Do not share dishes or eating utensils. [...] certain germs and not others. Read the senior sustainability consultant's instructions or read online resources to determine [...] minutes after each use, or according to senior sustainability consultant's instructions. Wash reusable cleaning cloths and sanitize [...] water are not available, use alcohol-based hand php magento developer. In general: Stay home except to get [...] for Professionals in Infection Control and Epidemiology: [email or web address]-[email or web address]-szotsiv/home/ Summary It is important to know how [...] 05/21/2009 Document Revised: 12/08/2019 Document Reviewed: 11/06/2019 [employer] Patient Education 2019 Micromuscle. Follow Up Care 09/20/2022 14:58:28 With:JAYDON COE, Reno Maciel, URL Address: [facility] [address] , [place] [address]- When:3 months Comments:UTI F/U [facility] 08-22-2022 Hospital Discharge instructions Patient Education 04/16/2022 [...] urethra. Follow these instructions at home: Take kvwl-hnh-eaukqen and prescription medicines only as told by [...] 08/12/2006 Document Revised: 07/07/2019 Document Reviewed: 09/16/2017 [employer] Patient Education 2020 Micromuscle. 04/16/2022 14:44:17 Calorie Counting for Weight Loss [...] 08/12/2006 Document Revised: 05/01/2019 Document Reviewed: 07/12/2017 [employer] Patient Education 2020 Micromuscle. Follow Up Care 10/16/2021 15:00:57 With:JAYDON COE, Reno Maciel, URL Address: [address] [place] [address]- Business (1) When:Within 1 Year(s) [facility] 02-11-2021 NotePatient Outreach (COVAMN) KYLER RICHARD ([id number]) 1940 M Date Time Provider Department 10/06/20 JOLYNN RUSSO During your visit today, we recorded the following information about you: Allergies As of Date: 10/06/2020 (No Known Allergies) Date Reviewed: 11/27/2018 Reviewed by: Huyen Barraza - Fully Assessed Order(s):SARS-COVID VACCINE 1ST DOSE APPT [[id number]] Order #: [id number] FUTURE Prescriptions as of 10/06/2020 Sig: RHOPRESSA [...] arteriosclerosis [I25.10] Letter Text Encounter Status:Closed by EPIC, PRODUSER on 10/10/20[facility] Evaluation + Plan note Future Appointments Appointment Date:04/19/2023 09:30:00 AM Scheduled Provider:Reno INTERIANO MD Location:[facility] Appointment Type:URO Office Visit [facility] evaluation + Plan note Future Appointments Appointment Date:01/16/2023 09:45:00 AM Scheduled Provider:Reno INTERIANO MD Location:[facility] Appointment Type:URO Office Visit Appointment Date:04/19/2023 09:30:00 AM Scheduled Provider:Reno INTERIANO MD [facility] Appointment Type:URO Office Visit [facility] Hiswjde general Narrative - Reported* Type Description Date Medical History heart disease Medical History colon cancer Medical History glaucoma Surgical History open heart surgery Surgical History colon surgery Surgical History 3 hernia repairs Surgical History torn retina Surgical History cataracts Surgical History left total hip 2017 Surgical History Eye lid lift both 2020 Hospitalization History see above Hospitalization History back spasms 2022 [facility] Other Hospital course Narrative No data available for this section [facility] Hospital Discharge instructions No data available for this section [facility] No data available for this section [facility] Summary Purpose Family History No Family History [...] section and content) DATE CREATED AUTHOR 09/19/[address] [facility] DATE CREATED AUTHOR AUTHOR'S ORGANIZ ATION 02/01/2023 [facility] DATE CREATED AUTHOR AUTHOR'S ORGANIZ ATION 12/31/[address] [facility] DATE CREATED AUTHOR AUTHOR'S ORGANIZ ATION 02/13/2024 [facility] DATE CREATED AUTHOR AUTHOR'S ORGANIZ ATION 02/14/2024 [facility] DATE CREATED AUTHOR AUTHOR'S ORGANIZ ATION 03/17/2024 [facility] Care Team (unrecognized sect ion and content) Personnel Name: Eliana Ba MD Address: [address] [place] [address] Personnel Name: Eliana Ba MD Address: Address: [address] [place] [address] Personnel Name: Eliana Ba MD Address: Address: [address] [place] [address] Personnel Name: Eliana Ba MD Address: Address: [address] [place] [address] REASON FOR VISIT (unrecogniz ed section and [...] BE BASED ON THE PRIMARY CLINICAL RECORDS. [facility]. provides no warranty or guarantee of the accuracy or completeness of information in this document.
== END 2024-03-17 13:56 | disposition home or self-care (01) ==
LOC: VC 13:55
PROVIDERS: PCP Family Medicine; Visit Provider Physician Assistant
DX: R09.89 Other specified symptoms and signs involving the circulatory and respiratory systems (principal)
CPT/HCPCS: 93923

== ENCOUNTER 2024-03-18 10:19 | Outpatient (OUT) | payer MEDICARE, SELFPAY ==
--- NOTE | 2024-03-18 10:30 | P.CN_ITS ---
Consult Note: HPI Data of Consult Patient: known to practice within the last 3 years Consult date: 09/23/23 Requesting Physician: Ambika Hill NP Primary Care Provider: Bayron Ba MD Consult Narrative Reason for consult: Low back pain Narrative: 83yom who presents for assessment. Worsening axial low back pain, worse with standing. Lumbar XR shows significant facet arthropathy in lower lumbar spine. Underwent physical therapy within past 3 months, continues in >6 weeks of provider directed home exercises, with no benefit. Utilizes mobic, with minimal benefit. Denies adverse med side effects. Patient recently underwent bilateral L4-5 L5-S1 facet medial branch RFA with 50% improvement in axial low back pain, continues to have stiffness and increase in pain with activity during the day, but notices improvement in ability to walk and ambulate. cc:: CC: Ambika Hill NP Review of Systems ROS Status of ROS 10 or more systems reviewed and unremark able except as noted in history and below Musculoskeletal Reports: back pain PFSH PFSH Medical History Low back pain ?M54.50 - Low back pain, unspecified (ICD-10) Sleep apnea ?G47.30 - Sleep apnea, unspecified (ICD-10) High cholesterol ?E78.00 - Pure hypercholesterolemia, unspecified (ICD-10) Heart disease ?I51.9 - Heart disease, unspecified (ICD-10) Hypertension ?I10 - Essential (primary) hypertension (ICD-10) Glaucoma ?H40.9 - Unspecified glaucoma (ICD-10) Colon cancer ?C18.9 - Malignant neoplasm of colon, unspecified (ICD-10) Inability to walk ?R26.2 - Difficulty in walking, not elsewhere classified (ICD-10) Chronic back pain ?M54.9 - Dorsalgia, unspecified (ICD-10) ?G89.29 - Other chronic pain (ICD-10) Strain of lumbar region ?S39.012A - Strain of muscle, fascia and tendon of lower back, initial encounter (ICD-10) Surgical History Detached retina, left ?H33.22 - Serous retinal detachment, left eye (ICD-10) Cataracts, both eyes ?H26.9 - Unspecified cataract (ICD-10) History of colectomy ?Z90.49 - Acquired absence of other specified parts of digestive tract (ICD- 10) 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 Smoking status: Never smoker Non-prescribed substance use: denies use Previous occupational history: retired Highest level of school completed/degree received: Bachelor's degree Are you now , , , , never or living with a partner: Little interest or pleasure in doing things: not at all Feeling down, depressed, or hopeless: not at all Feel stressed/tense/nervous/anxious/difficulty sleeping: not at all Do you think of yourself as: straight/heterosexual Gender Identity: male Meds Home Medications and Allergies Home Medications ?Medication ?Instructions ?Recorded ?Confirmed ?Type aspirin 81 mg tablet,delayed 81 mg PO DAILY 05/20/23 03/02/24 History release atorvastatin 40 mg tablet 40 mg PO DAILY 05/20/23 03/02/24 History dorzolamide 22.3 mg-timolol 6.8 1 drp ophthalmic (eye) BID 05/20/23 03/02/24 History mg/mL eye drops icosapent ethyl 1 gram capsule 2 g PO BID 05/20/23 03/02/24 History latanoprost 0.005 % eye drops 1 drp ophthalmic (eye) .QHS 05/20/23 03/02/24 History lisinopril 10 mg tablet 10 mg PO DAILY 05/20/23 03/02/24 History meloxicam 15 mg tablet 15 mg PO DAILY 05/20/23 03/02/24 History metoprolol tartrate 25 mg tablet 12.5 mg PO BID 05/20/23 03/02/24 History netarsudil 0.02 % eye drops 1 drp ophthalmic (eye) DAILY 05/20/23 03/02/24 History (Rhopressa) tamsulosin 0.4 mg capsule 0.4 mg PO BID 05/20/23 03/02/24 History lidocaine 5 % topical patch 1 patch topical DAILY #30 ea 12/18/23 03/02/24 Rx brimonidine 0.2 % eye drops drp ophthalmic (eye) 03/02/24 History cephalexin 500 mg capsule 500 mg PO QID 10 days #40 caps 03/02/24 Rx cetirizine 10 mg tablet mg 03/02/24 History fluticasone propionate 50 intranasal 03/02/24 History mcg/actuation nasal spray,suspension hyoscyamine sulfate 0.125 mg mg 03/02/24 History sublingual tablet ciprofloxacin HCl 500 mg tablet 500 mg PO BID 5 days #10 tabs 03/11/24 Rx (Cipro) Allergies Allergy/AdvReac Type Severity Reaction Status Date / Time No Known Drug Allergies Allergy Verified 11/18/23 09:17 Exam Constitutional Documenting provider has reviewed patient's vital signs: yes Common normals: no apparent distress, oriented x3, healthy appearing, alert and well nourished General appearance: cooperative HENMT Common normals: normocephalic, hearing grossly normal bilaterally and moist oral mucous membranes Head and scalp: normocephalic Eye Common normals: PERRL Pupil: PERRL Neck & C-Spine Common normals: full ROM General: normal visual inspection Chest Common normals: inspection of chest normal Respiratory Common normals: normal respiratory effort, no retractions and no use of accessory muscles Back & Pelvis Lumbar spine/lower back: normal to inspection, lumbar ROM normal and pain with ROM Sacroiliac joints: SI joints normal Extremity Common normals: normal to inspection and full ROM Neuro Common normals: oriented x3, CN's II-XII intact bilaterally, moves all extremities, no focal motor deficits, no sensory deficits noted and deep tendon reflexes 2+ bilaterally Sensorium/orientation: alert Gait (neuro): assistive device used cane Motor exam: strength 5/5 throughout and no movement abnormalities noted Psych Common normals: mental status grossly normal, thought process normal, cooperative, affect normal, speech normal and activity/motor behavior normal Speech: normal speech Thought process: normal thought process Results Additional Findings Additional findings: If on a controlled substance or opioids, I have checked an [place]ARRS report on this patient and there are no aberrancies noted in the prescribing history.??If on a controlled substance or opioid a drug screen was completed and reviewed within the last year, and if there has not been a drug screen completed we ordered one today to monitor higher risk, state monitored pain medication use. As part of providing excellent, safe, comprehensive care, the following was completed at our patient's visit: 1. A medication reconciliation and review to ensure accurate knowledge of current/active medications, including asking our patients to inform us about any bwkv-eqg-meqjtix medications or herbal remedies/nutritional supplements/alternative remedies. 2. A review to specifically ensure our patients have had annual screening for screening for depression, screening for tobacco use, and screening for unhealthy alcohol use. For concerning screenings had a discussion with the patient, provided patient education, and recommended follow-up with primary care provider when appropriate. If patient noted with a risk of falling, they received education on strength, gait, and balance training to prevent future risk of falling. Assessment and Plan Assessment and Plan (1) Lumbar spondylosis: (2) Myofascial pain: Plan discussed that 0/10 pain goal is unrealistic, patient would prefer to have no pain and most days he has little to no pain. today is a bad day with pain 2/10 continue topical lidocaine continue PRN mobic 15mg, denies side effects f/u 6 months, sooner if needed. can consider muscle relaxer if needed, caution at this time due to age and ambulating with a cane
== END 2024-03-18 10:20 | disposition home or self-care (01) ==
LOC: PM 10:19
PROVIDERS: PCP Family Medicine; Visit Provider Nurse Practitioner
DX: M47.816 Spondylosis without myelopathy or radiculopathy, lumbar region (principal); M79.18 Myalgia, other site
CPT/HCPCS: G0463

== ENCOUNTER 2024-04-06 16:09 | Outpatient (OUT) | payer MEDICARE, SELFPAY ==
--- OUTSIDE RECORDS SUMMARY | 2024-04-06 16:20 | XMS_ITS | CCD ---
Author Organization [facility] Care Team Providers Care Investigation Clerk Name Role Phone Eliana Ba Primary Care Physician GERONIMO ., KARLOS Admitting Unavailable GERONIMO ., KARLOS Consulting Unavailable GERONIMO ., KARLOS Attending Unavailable MARCUS ., DR MONROY Primary Care Unavailable Mayra Lopez Consulting Unavailable MARCUS ., DR MONROY Attending Unavailable HOY ., DR MONROY Admitting Unavailable HOY ., DR MONROY Primary Care Unavailable HOY ., DR MONROY Consulting Unavailable HOY ., DR MONROY Attending Unavailable HOY ., DR MONROY Admitting Unavailable HOY ., DR MONROY Primary Care Unavailable HOY ., DR MONROY Consulting Unavailable CALVIN BARNES Consulting Unavailable Rocio Chan Unavailable Giedraitis , Andrius Conner Attending Unavailable Giedraitis , Andrius Vytsahil Attending Unavailable Giedraitis , Andrius Vytautoli Attending Unavailable Giedraitis , Andrius Vytautas Attending Unavailable Giedraitis , Andrius Vytautas Attending Unavailable Orzech Lazara X Attending Unavailable Orzech Lazara X Admitting Unavailable Orzech, Lazara X Attending Unavailable Orzech, Lazara X Attending Unavailable Emily Maria Attending Unavailable Orzech, Lazara X Attending Unavailable Allergies Allergy Classification Reported Allergen(s) Allergy Type Date of Onset Reaction(s) Facility Quinolones (antibiotic) (2 sources) levoFLOXacin; Translations: [levofloxacin] Drug Allergy Irritation (qualifier value) [facility] (5 sources) levoFLOXacin; Translations: [levofloxacin] Drug Allergy Irritation (qualifier value) [facility] Medications Current Medications Medication Drug Class(es) Dates Sig (Normalized) Sig (Original) Aspirin (5 sources) Platelet Aggregation Inhibitor, Nonsteroidal Anti-inflammatory Drug Start: 09-26-2022 aspirin Start Date: 09/26/22 Status: Ordered atorvastatin 40 mg oral tablet (7 sources) HMG-CoA Reductase Inhibitor Start: 03-13-2019 atorvastatin 40 mg oral tablet Refills(s) 0 Start Date: 03/13/19 Status: Ordered brimonidine (6 sources) alpha-Adrenergic Agonist Start: 03-13-2019 brimonidine ophthalmic [...] Active cetirizine hydrochloride 10 mg oral tablet (4 sources) Histamine-1 Receptor Antagonist Start: 02-11-20 cetirizine 10 mg Tab Refills(s) 0 Start Date: 02/11/24 Status: Ordered dorzolamide (7 sources) Carbonic Anhydrase Inhibitor Start: 03-13-20 take [...] # 20 cap(s), Refills(s) 0, Pharmacy: [id number], 160, cm, 09/26/22 13:50:00 EST, Height/Length Dosing, 97.3, kg, 09/26/22 13:50:00 EST, Weight Dosing Start Date: 09/26/22 Stop Date: 10/06/22 Status: Ordered hyoscyamine sulfate 0.125 mg sublingual tablet (4 sources) Start: 02-11-2024 hyoscyamine 0.125 mg sublingual Tab Refills(s) 0 Start Date: 02/11/24 Status: Ordered icosapent ethyl 1000 mg oral capsule (7 sources) Start: 03-13-2019 Vascepa 1 g oral capsule Refills(s) 0 Start Date: 03/13/19 Status: Ordered take 2 capsules by m outh every twelve hours Vascepa 1 GM 2 capsules with food Orally Twice a day Active latanoprost (7 sources) Prostaglandin Analog Start: 03-13-2019 take 1 [...] day Active lisinopril 10 mg oral tablet (7 sources) Angiotensin Converting Enzyme Inhibitor Start: 03-13-2019 lisinopril 10 mg oral tablet Refills(s) 0 Start Date: 03/13/19 Status: Ordered meloxicam 15 mg oral tablet (9 sources) Nonsteroidal Anti-inflammatory Drug Start: 04-09-2017 meloxicam 15 mg oral tablet Refills(s) 0 Start Date: 03/13/19 Status: Ordered metoprolol tartrate 25 mg oral tablet (7 sources) beta-Adrenergic Whit Start: 03-13-2019 take 1 tablet by mouth once daily Lopressor 25 mg oral tablet 25 mg = 1 tab(s), Oral, Daily, Refills(s) 0 Start Date: 03/13/19 Status: Ordered take 1 tablet by lavern every twelve hours Metoprolol Tartrate 25 MG 1 tablet with food Orally Twice a day Active Multi Vitamin+ (5 sources) Start: 09-26-2022 Multi Vitamin+ Start Date: 09/26/22 Status: Ordered netarsudil 0.2 mg/ml ophthalmic solution (6 sources) Rho Kinase Inhibitor Start: 03-13-2019 Rhopressa 0.02% ophthalmic solution Refill(s) 0 Start Date: 03/13/19 Status: Ordered Start: 03-13-2019 Rhopressa 0.02 % ophthalmic solution Refill(s) 0 Start Date: 03/13/19 Status: Ordered tamsulosin hydrochloride 0.4 mg oral capsule (6 sources) alpha-Adrenergic Whit Start: 02-11-2024 tamsu losin 0.4 mg Cap 0.4 mg = 1 cap(s), BID, Refills(s) 0 Start Date: 02/11/24 Status: Ordered Start: 03-07-2022 take 1 capsule by mo [facility] twice daily tamsulosin 0.4 mg Cap 0.4 mg = 1 cap(s), Oral, BID, # 180 cap(s), Refills(s) 3, Pharmacy: [address], 160, cm, 10/16/21 14:26:00 EST, Height/Length Dosing, 94.4, kg, 10/16/21 14:26:00 EST, Weight Dosing Start Date: 03/07/22 Status: Ordered 12 hr timolol 5 mg/ml ophthalmic solution (1 source) beta-Adrenergic Whit Start: 03-13-2019 timolo l Opth 0.5% Yvette 5 mL Refill(s) 0 Start Date: 03/13/19 Status: Ordered timolol Opth 0.5% Yvette 5 mL (5 sources) Start: 03-13-2019 timolol Opth 0 .5% [...] 12 hrs for 10 day(s) Feb, Not-Taking fluticasone propionate 0.05 mg/actuat metered dose nasal spray (2 sources) Corticosteroid Start: 03-17-2024 fluticasone Nasal 0.05 mg/inh [place] instill 1 spray into each nostril once daily Start Date: 03/17/24 Status: Ordered hydrOXYzine pamoate 25 mg oral capsule (2 [...] Documented Da te Episodic/Chronic 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 03-13-2019 Episodic Calculus of urinary tract (9 sources) Kidney stone; Translations: [Calculus of kidney] Onset: 04-16-2022 Episodic Cancer of colon (6 sources) Carcinoma of colon, stage I 03-13-2019 [...] disease, unspecified; Translations: [Angina pectoris, unspecified] Onset: 01-26-2023 Chronic Disorders of lipid metabolism (11 sources) Hypercholesterolemia ; Translations: [Hyperlipidemia, unspecified] Onset: 09-20-2022 03-13-2019 Chronic Essential hypertension (7 sources) Hypertensive disorder; Translations: [Essential (primary) hypertension] Onset: 09-20-2022 03-13-2019 Chronic Genitourinary symptoms and ill-defined conditions (20 sources) Nocturia; Translations: [Retention of urine] Onset: 09-18-2022 10-16-2021 Episodic Hyperplasia of prostate (10 sources) Benign prostatic hypertrophy with outflow obstruction; [...] Chronic Other diseases of bladder and urethra (10 sources) Male urethral stricture; Translations: [Unspecified urethral stricture, male, unspecified site] Onset: 04-16-2022 Episodic Other diseases of kidney and ureters (2 sources) Urinary tract obstruction; Translations: [Other obstructive and reflux uropathy] Onset: 04-16-2022 Episodic Other gastrointestinal disorders (6 sources) Scrotal mass 05-18-2019 Episodic Other male genital disorders (6 sources) Disorder of male genital organ 10-16-2021 Episodic Other male genital disorders (6 sources) Spermatocele 11-02-2019 Episodic Other male genital disorders (6 sources) Testicular mass 03-13-2019 Episodic Other nervous system disorders (1 source) Chronic pain; Translations: [Other chronic pain] Chronic Other non-traumatic joint disorders (1 source) Hip pain; Translations: [Pain in left hip] Episodic Other nutritional; endocrine; and metabolic disorders (1 source) Obese class II; Translations: [Body mass index (BMI) 36.0-36.9, adult] Onset: 04-16-2022 Chronic Other nutritional; endocrine; and metabolic disorders (6 sources) Body mass index 30+ - obesity 04-16-2022 Chronic Vanessa-; endo-; and myocarditis; cardiomyopathy (except that caused by tuberculosis or sexually transmitted disease) (6 sources) Pericarditis 03-13-2019 Episodic Residual codes; unclassified (6 sources) Sleep apnea 03-13-2019 Chronic Residual codes; unclassified (1 source) Sleep apnea, unspecified; Translations: [SLEEP APNEA UNSPECIFIED] Onset: 09-20-2022 Chronic Retinal detachments; defects; vascular occlusion; and retinopathy (6 sources) Retinal detachment 03-13-2019 Episodic Spondylosis; intervertebral disc disorders; other back problems (1 source) Low back pain; Translations: [Low back pain] Episodic Urinary tract infections (8 sources) Urinary tract infectious disease; Translations: [Urinary [...] 09-28-2022 Episodic Other aftercare (1 source) Other chcf (current) drug therapy; Translations: [OTH REGIONAL AIRLINE PILOT CURRENT DRUG THERAPY] Onset: 09-20-2022 Episodic Other aftercare (1 source) alf (current) use of aspirin; Translations: [REGIONAL AIRLINE PILOT CURRENT USE OF ASPIRIN] Onset: 09-20-2022 Episodic Other male genital disorders (6 sources) Hydrocele Resolved: 08-26-1989 03-13-2019 Episodic Other [...] Test Name Value Interpretation Reference Range Facility Urology Office/Clinic Noteon 03-20-2024 Urology Office/Clinic Note Urology Office/Clinic Note Chief Complaint ER f/u *Urinary Retention HPI Staff PRW pt Last seen in our office by INEZ 02/11/24 DX: BPH, Urethral Stricture, Gross Hematuria & UTI PVR at that time 108ml Here today to follow up to [facility] ER 03/11/24 CC: Urinary Retention PVR 230ml. Catheter was inserted. Finished abx yesterday from blister on leg. Denies visible blood in cath bag. States catheter is uncomfortable, no other complaints. History of Present Illness Tests reviewed: reviewed ER records. I have reviewed the previous health record information and history for this patient from KIM Elder, RUDDY & Dr. Valentin. I have reviewed and verified the staff HPI to be accurate for this encounter. There have been no associated fever, chills, flank pain, or blood in the urine. Denies any urinary infections since last encounter. Review of Systems PHQ Score Initial Depression Screen Score: 0 SCORE ROS - Provider Constitutional: denies weight loss, [...] HPI. Physical Exam Vitals & Measurements HR: 80(Peripheral) RR: 16 BP: 132/77 HT: 63 in HT: 160 cm WT: 96 kg WT: 211.2 lb BMI: 37.5 General Appearance: alert, no distress, well nourished, well developed male. Bladder: Sanches in place. Here today w/ who does help assist in providing much of his recent history. Assessment/Plan Dr. Valentin pt. Hx of bowel resection, chemo, and radiation due to colon cancer. [2] 1. Urinary retention (R33.9: Retention of urine, unspecified) Hx of UR. Last episode was 3-4 yrs ago. Has CIC in the past. PVR (cc): 02/11/24 - 108 Pt presented to [facility] ER 03/11/24 with UR. PVR >230 cc. Sanches placed at that time. Pt was already on Keflex for a leg wound, cipro for UTI. Prior to 03/11 visit, pt was seen in the ER prior to this. Pt states they were unable to place Sanches. Ended up being discharged and was able to void at home until he started to retain again. Still has Sanches. Shares that retention came on suddenly. Recommended cystoscopic evaluation to further eval SEO. Pt elects to proceed. Discussed options such as proceeding with voiding trial today and relearning how to CIC vs keeping indwelling Sanches until the time of cysto (would need exchanged prior to cysto). Pt very unsure on how to proceed. Seems hesitant to relearn CIC. Will keep Sanches in place and schedule an appt in 3-4 wks for exchange. -Cath exchange in 3-4 wks, pt may elect to relearn CIC at that time -Will schedule cysto with poss UD. Prophy abx sent. The procedure risks, benefits, details, and treatment alternatives have been discussed with the patient. These include bleeding, infection, recurrent scar in over 50%, need for repeat dilation or other procedures, no symptom relief with dilation, among others. Full informed consent has been obtained. Will order Local anesthesia. 2. BPH with urinary obstruction (N40.1: Benign prostatic hyperplasia with lower urinary tract symptoms) IPSS has sanches (4) S/p cysto/UD 06/15/21 - bilobar obstruction of the prostatic urethra. Taking Flomax 0.4mg bid. See #1. We discussed male urologic anatomy including the prostate and how this is likely contributing to his urinary symptoms. We discussed how potential prostate obstruction affects long-term bladder health and compliance. We discussed alpha-whit medications to help with urinary symptoms, possible side effects. I did advise patient that these medications do not protect the bladder while alleviating some urinary symptoms. In order to assess degree of bladder outlet obstruction and bladder health, discussed further evaluation with cystoscopy. -schedule cysto -cont flomax 3. Urethral stricture in male (N35.919: Unspecified urethral stricture, male, unspecified site) Cysto/UD 06/15/21. Had to CIC in Jun 2022 due to difficulty urinating. [1] Patient does not recall if he had significant improvement in his stream symptoms. Repeating cysto with poss UD is recommended. Pt wishes to proceed with further eval of channel. See #1. 4. History of UTI (Z87.440: Personal history of urinary (tract) infections) UCx 02/13/24 - >100k E Coli pansensitive. ~Pt was to only call if he became symptomatic. UCx 03/11/24 - in prelims per [facility]. >100k Pseudomonas. Empirically tx'd with Cipro. Denies fever. Just recently completed abx course. -Present to the ER with fever, chills, confusion, flank pain, NV. Patient/ verbalize understanding. 5. Gross hematuria (R31.0: Gross hematuria) Patient denies any episode of gross hematuria since prior office visit. Follo (more content not included)... Normal [facility] Comment on above: Result Comment: Elec tronically Signed By: KIM Lino APRN, [place] X\.br\Date and Time Signed: 03/20/24 08:02 EDT\.br\Electronically Co-Signed By: Aleida Sapp\.br\Date and Time Co-Signed: 03/17/24 15:28 EDT Ambulatory Visit Summaryon 0 03-17-2024 Ambulatory Visit Summary Ambulatory Visit Summary KYLER RICHARD :1940 Visit Date:03/17/2024 Ambulatory Visit Instructions Your Diagnosis Urinary retention BPH with urinary obstruction Urethral stricture in male History of UTI Gross hematuria Your Care Team Attending Physician - KIM Lino APRN, [place] X Primary Care Physician - Eliana Ba MD This Is Your Medications List Contact prescribing physician if questions or concerns aspirin atorvastatin (atorvastatin 40 mg oral tablet) brimonidine ophthalmic (brimonidine ophthalmic 0.2% solution) cetirizine (cetirizine 10 mg Tab) dorzolamide ophthalmic (dorzolamide 2% ophthalmic solution) fluticasone nasal (fluticasone Nasal 0.05 mg/inh [place]) hyoscyamine (hyoscyamine 0.125 mg sublingual Tab) icosapent [...] and adenoidectomy. Discharge Vitals Heart Rate (Peripheral) 80 Respiratory Rate 16 Blood Pressure 132/77 Height 160 cm Height 63 in Weight 96 kg Weight 211.2 lb BMI 37.5 What to do next Scheduled Follow-Up Appointments Saturday 11:30 AM EDT With: KIM Lino APRN, [place] X Where: [facility] [id number] You Need to Schedule the Following Appointments Follow Up with KIM Lino APRN, Lazara Echavarria, FAM, URL When: Where: Medications What How Much When Instructions Unchanged [...] prescribing physician if questions or concerns Unchanged fluticasone nasal (fluticasone Nasal 0.05 mg/ inh [place]) instill 1 spray into each nostril once daily Contact prescribing physician if questions or concerns [...] urinary obstruction Cholelithiases Elevated cholesterol Gross hematuria History of UTI Hydrocele Hypertension Kidney stone Left retinal detachment [...] you for choosing us for your care. Education Materials Acute Urinary Retention, Male Acute urinary ret (more content not included)... Normal [facility] Coding Summary.on 02-19-2024 Coding Summary. VQSPIcek51HFy3dFg+PG hlYWQ+IS2WCRPjH74eyX FpcR8kI2AOOIhNGrloGI TZDQhDIdBnmrFeQT5nmH NjZXJu IC8+TO8oQJVmBxqooAUu s3I3uXO3K52cmm2dDClu jZY9KJToLzEtbulwh2mx lSz9GSmcWszoEiQu NRCriC39SXT3fY81Mf93 fMAqvHUcl6phyLn9NwGk NAZsITA4yQsmHNtko7Ad IUXrX54dnJQpa3H1 IGNvbGxhcHNlOyBlbXB0 fQ6eUTybfhnpl3gvusug Mgs4uj87gUFmp3V3bLM0 B2YjilC1VUTakQQh WvubuQDEsN2ughuze8jg dujkFmIzYPBePUk2OMv1 PUWjpCitUpBrFG72UGW4 RSGypiKbD7SfSQPh iLvwNpA6f3T9Ii5WA1SO OaljZ4MDVZGQRGvacNI+ DX55kw40R1AuZljzYvq0 GNWgUPZ1cRA6sZ8g JQOgYOlhd5V3nOD4Q7Ms olMcia4dz6nyELRjXLyg Q55rwKSym6C0TKKwyTC8 MPRtvGipXyXkwA07 Oyc+LIOziSffy9ZbTova g8bfw2amwEa8TpedWFGn neTttSedPBS1u5VcCk0n CIHfhWZ4cJW6uR9q WhQhReH9SHkrX807IdSm xNNrUzvoF67uE4XrbKC+ ZXRxWip5WZSvfAafHE9m M0MkCQJcwvanaIHo jMjcVJ3yCQKlijvhAPFk wR5pIKBmT2q1RkIfCzN2 QWfkD9IpHKOwigdzAb45 rN5zDhSyTbN2YYys Q7UnhtM6ZJEbfNBkFNpx PXP3Z53tw8U4LJZdMJLw HSE4aRP2iC6vfVhfmlsn bGVmdDsgdmVydGlj VKgoGHpfA747XPXduVmq PkNvZGluZyBEYXRlOiAg MDYvMjYvMjAyNDwvdGQ+ SZNcFVD0eKmrASVa qOGlZGokTf8ghHsrePxf JM9fYKGdukbwPETerY1b WADjlHJbfMvdMY9fEZCz zlgyw396VmFuHRK8 HDXonVZmB4SiwP7pEcJg PGHcCHZmW3GkuAYrSWkb N724UYepKjD0GQEvlpYw B5BuEKMlpCfwLsU4 a1Z2Sj8Ze4WnajnsP7Zd nMGdLdGyTvddZWj6A2Mx PjwvdHI+YM25YMZdKN20 MIf9YHK5hEtzRTly TFYpU8GgvW5mLjUbAPDr ZGRkOyc+PHRhYmxlIHdp ZHRoPScxMDAlJyBzdHls YL5wBe5rYALqJEAa pGusjMJiIySxz9slXIIz XGunNV7icSanZ1TufKN6 WGLlk0j9Tn93H95zC9Tw dXA+MBRsjNF3vZV3 mW1fEsJdTgF7JNpiS882 IfRxhTFdMxbkb6lhp5se zPk1IyD0VOKmpkPcaUiu UHW0p1WeAu00G72g IHdpZHRoPSIxNSUiIHZh gEiams9nlN8mBr6+PGNv qWC5sYW2mM7rThQhHdD6 ZWytE038TdWjfHTq Sbicx4hbr3cunGf6IcQe HNKfncUnwCicQLY6u4Qh Ev33T0ZotYtly9AzOzw4 ga41rLBsj2T2iWP2 P2McGZLqaetpiUGtbAkf VX0mMJTxbbfuBFLzpA6e JEYiP9j6YfJpFwS9QEmt A9CwcsR3YHTbzHNs JWWetTEKfK4eqsiob8ma tuyvGkDnQSYkHKr5CBk2 AEUndLrzZiEtNEB3NqZ6 RLP8cLQrmD4zwRzr aomkmD4bIxf+EVC5eCZr rYKSUO3fPvjgqWQ+PHRk JTL4bZziVCryDONyrW2c LIAlW1n6OvJdNgK9 DTieV9NbvtQ0TFJaoYUb BZHksHAEhQ1ketbhr8fg bzxkTfIuMWCrQYn1VVl8 LWFsaWduOiBsZWZ0 WmT7BNX4yWDtcV8fxZcb srhjyU0vVjq+QmlydGgg OTK2GLo8E8SvXvz4QWRs gHpzMV5qgJSnGYio Zt8kqYzhsIhmFU8pUIJn qfwyr252LkGbv5ylTVMu rNCpDXddBNO4K15kf0V3 MTTfTLMvQVI1aBL2 nZ4mtPjhjuxqgRYzyXjt jdDrqQahZTmcWBvlB977 YDNyrUlqEmAqPEs0B9Xo Hzi4WUBuqZgbHA8c pENhSPleMw1oxYjstZxk HU7wBFHjnzefp746QlIb v5xtIJTbfTEgBCfdXDN7 R04eq4K7XJRwOOPp GCJ0yOP7fH5urTchdbjk bGVmdDsgdmVydGljYWwt SVwbK097IZSasLbzMoOz dLm5X8MlMhk0QWAs hXgvEV2miPZkCSkoOm8b oAewkTomYA3wPKFpedit p926PvIea4izRITndKIx DLxaTIY2G31sm0K5 ITKsECDjWHL6pZF1dP5h bGlnbjogbGVmdDsgdmVy jXyjLIhuHMvjG603BJHi cDsnPlBhdGllbnQg VAfuPKi7C1InJjrtiNH+ MZ49XWXyOC14iQBejTWo r0sacJj0MfXlKIZcQHY4 dRdgLTiat9DbIJHv V56sqKPbn0S4VASikIec tKSaVnCcxCF9nF1zFGjh lbqnu0aiunmuXbakc9bk jd17fR76Y59mNYli ZHRoPSIzMCUiIHZhbGln rm7vtO4uXy4+PGNvbCB3 uWS0fR0eYSSqWoB6WGuk Z422HnJakOCqUxdb d1lkn3oqqTk9NeP9AIOd ofMmbIifNUQ6c0HtVw53 T30bGBcxFHFbNLAjHZWa PXYqhTwggu1qsA9e Ii8+DLOqwAX4hMI5gO6x VhPhUbN7SVhvY595FvYj kJZeSfhmO35vQ4WmmFV+ UISzHio4YTCzwWra PU3fkZWbRXyeAd2jOCA2 KuFuGeQeKOvhQ1VgQPZc slnosyinrEW4SZMyWLLh jR53Kh9hyFsnLSHc tZIVnO7zuabcb2kusfvd VuAvEXEaLTg8OVr9XEHg dFukQyWlJYO3VwQ3HXU7 gCCjbM8zlRgzrigz kY2kD7UcMUKnzjnyAo20 cK2uOwTrPkN2DCkbUbn+ P0WNRJ2CRDQHF300S4Lt Crg1RXLnwTlrZF3e lWJrJJjlHz4uaSahlJhd QI7wIBUvhhvkKQYxuN3m BYUuxIUiiMhsUC3nWFAq kaavi407ZiWjTFA5 UHEavUGmB2BirE5gCtPl TUIsZBGbA4NahKFsDTch K649XJzxEwS8BKHbtmGd L4OyEKYhtVnqWrX7 l2N3Ez4nKN1pDM1cMKVm OJ73PZ11jDCkn0S1gMR4 N0InNUSbyxmetkvmqFW8 KCXoZXJhnG24mAFt CRtsUc4hd8K8h337HDQv UFDzzP35Gz8ocFwtZLHt rWKCtQ0huqibo1njajah GeNsGDHvHTq7NHu2 ATVwtXmbSyCoOFN6BgH7 FID8wXApcW4btCzsnlby pN1aCqm+ODEgWWVhcnM8 Y4QoOjo9CTWzsVft QF4ikDKpLSykZa2cmNxu fZjcAA8iZSKepecbFVEm bA8qGTJirROmvLogKG6w IYKsgndzh707PcOr THT4HJEtrPQvY6ToaT6s DwFkVSEzOEQyP2YrdTMz SZovK671QKcdXzZ3EHSj xvSjP1HqONLnlJle StE3z5L6Jg2KPDbyXP49 KV66oGXfr3C7cUE5P8Bx ANQkhhtglzrnqAJ4WTTg GAOzsO66wAHsUDge Ab5qc5H8m117QLPwUIQj cU22Pt7ikWeoWDQpxSZB yD5dxyaso7temcmcMjAi QKDjFGd4OKl1AHTy bXyvWkQhTHP9MpM2MXM0 pNNgmU9ulVrdiuxuhH3f Oyc+LDKwUZGjq8Exa0Vt IL99PM59H3KpCczo dGFibGU+PHRhYmxlIHdp ZHRoPScxMDAlJyBzdHls ZI7uBt3tFCXbGRToiYrk hMGhRxTci2tjTXPk FZdwRR6anJctV5BspJC9 XMTfa6e9Jh61S82eG9Pk dXA+XOCgsRE2bJE0wG2o JeFvTwD9YZcqY123 McZinWWjKymyj4oye2zt aRw3HcOnGGDkovVmmLpd RCX4l4IkJp44E78yDIwj ZHRoPSIyMCUiIHZh cQdhui8cuS2hQq0+PGNv tHE2uXA6nC5aCmYoTvO4 HVciJ513NyRdbKJwJnzb I58iD3GhnUE+PHRy Xbe5OGZfnPltGN9raOEb PJppLu7nBLA0HtUcYtEf GZkpI0CfTEQmtsrxsmuv gHR1PSJoPRJdpJ18 Ne2jeMcgAl6gLFQsZZE6 KGNzcYAdV9BubX4aBjUd WVOuQWOxR9TarAGuEFxf S397FAteGhX7FRDq waGjB3AkXDKfdVtsScT0 o5S4My0YfEmnpLKiNU9l EyTvWFk6N3QaAzi9RJVw oRsrJA6bxLBbKHuz Ne5bkEsiqMsxBI7iZITn ohzdb701MoGna3znVTIx sCEhPTfsNSU2O90rv5R0 CKKeXBHsQGE8wRJ3 aO7dvIjwwlhcuZRnwIpq asRtdAauCRpvJRlwF147 YSEajIwgEvNMPom7T8Hu Sdc1ZGUxmYrfOC5y sEZvTRncQq4ciWvnoJjr BX5uLNDlvpvxp928CwZt h0nnGDNelXGzJOmkTDW3 U59mn7B8YGLkCUMb JDC1vOE3oY3hfHxiuris bGVmdDsgdmVydGljYWwt WJicN783LKHzwIlaMp5X Hbj4M1UkLlg5WMRb uKwtJL0eiUVaRQwcMk5q gLsfoEvtUW1nWAPiowjv c935RgBif1ofWYCwdDHj IVpnDYT1L24vi3Y4 GADhCMIiEUH5bPO6kP0n bGlnbjogbGVmdDsgdmVy tJdzYKvkWCotW132GSAo cDsnPlBheWVyOjwv dGQ+HE90xl15Q3LzQfob Ibe5MSVkJRG5vFF8rZ8g XPKfQHxzs4O4pMO3V1Na lvXgmn9iq0qxKNGw XUeiB06daJEhd (more content not included)... [facility] C Urineon 02-13-2024 Bacteria identified Cx Nom (U) Microbiology PROCEDURE: Urine Culture [R1] SOURCE: U Random BODY SITE: COLLECTED DATE/TIME: 02/11/2024 10:06 EDT RECEIVED DATE/TIME: 02/11/2024 18:24 EDT START DATE/TIME: 02/11/2024 18:24 EDT FREE TEXT SOURCE: RENA Lino APRN-Alessandro, Zoie FOX, RENA-C, Lazara X Lazara X [...] Locations R1: This test was performed at: [facility], [address] [place] [address], [id number] , [place], [facility] Comment on above: Performed By: #### [id number] #### [facility] [address] [place] [id number] Screenson 02-12-2024 Screens [id number] [id number] [facility] Ambulatory Visit Summaryon 0 02-11-2024 Ambulatory Visit Summary KYLER RICHARD :1940 Visit Date:02/11/2024 Ambulatory Visit Instructions Your Diagnosis BPH with urinary obstruction Urethral stricture in male UTI (urinary tract infection) Gross hematuria History of colon cancer Your Care Team Attending Physician - KIM Lino APRN, Lazara Echavarria Primary Care Physician - Eliana [...] Where: [facility] [address], [place] [address] [phone] Medications What How Much When Instructions Unchanged [...] for choosing us for your care. Normal [facility] Patient Educationon 02-11-20 Patient Education [...] these instructions at home: Medicines ? Take szxn-uaz-wdoluqt and prescription medicines only as told by [...] the blood stops without treatment. ? Take hvtj-mvq-kncsbgc and prescription medicines only as told by your health care provider. ? Drink enough fluid to keep your urine pale yellow. This information is not intended to replace advice given to you by your health care provider. Make sure you discuss any questions you have with your health care provider. Document Revised: 04/12/2021 Document Reviewed: 04/12/2021 [employer] Patient Education ? 2022 [employer] Benign Prostatic Hyperplasia Benign prostatic hyperplasia (BPH) [...] the nig (more content not included)... Normal [facility] Urology Office/Clinic Noteon 02-11-2024 Urology [...] with voice recognition artificial intelligence software, specifically [employer], Handle and or [employer]. Substitutions may have occurred due to the [...] Urnls Dip Stick Auto w/o Microscopy POC 48577 2. Urethral stricture in male (N35.919: Unspecified [...] Reno Maciel, URL [facility] [address] [place] [address] [phone] Additional Instructions: Patient Education Hematuria, Adult Benign [...] Rhopressa 0.02% (more content not included)... Normal [facility] Comment on above: Result Comment: Elec tronically Signed By: KIM Lino APRN, [place] X\.br\Date and Time Signed: 02/11/24 10:41 EDT COVID/FLU RT-PCRon 3 SARS-CoV-2 (COVID-19) RNA TERRIE+probe Ql (Unsp spec) Positive [place] Other COVID/FLU RT-PCR Negative [employer] Other XR KNEE RT 3Von 01-23-2023 XR KNEE RT 3V EXAM: XR KNEE RT 3V HISTORY: Osteoarthritis of knee COMPARISON: None TECHNIQUE: 3 views FINDINGS: No acute fracture or dislocation. Moderate to severe degenerative changes. Unremarkable soft tissues. IMPRESSION: Moderate to severe degenerative changes. Electronically authenticated by: CALVIN BARNES Date: 2023-01-23 13:29 Normal [facility] INSULINon 09-25-2022 Insulin 6.0 uIU/mL Normal 2.6-24.9 [facility] Comment on above: Performed By: #### I NSULIN #### [facility] [address] [place] [address] Dr. Wally Zapien BNPon 09-24-2022 Natriuretic peptide B (Bld) [Mass/Vol] 110.0 pg/mL Normal <=1,800.0 [facility] Comment on above: Performed By: #### U RCX #### [facility] [address] [place] [address] Dr. Wally Zapien CBC AUTO DIFFon 09-24-2022 BASO # 0.0 103/ul Normal 0.0-0.1 [facility] Comment on above: Performed By: #### C BC #### [facility] [address] [place] [address] Dr. Wally Zapien Basophils/100 WBC (Bld) 1.0 % Normal 0.2-2.0 [facility] Comment on above: Performed By: #### C BC #### [facility] [address] [place] [address] Dr. Wally Zapien EO # 0.2 103/ul Normal 0.0-0.7 [facility] Comment on above: Performed By: #### C BC #### [facility] [address] [place] [address] Dr. Wally Zapien Eosinophils/100 WBC (Bld) 4.2 % Normal 0.9-7.0 [facility] Comment on above: Performed By: #### C BC #### [facility] [address] [place] [address] Dr. Wally Zapien Erythrocyte distribution width (RBC) [Ratio] 12.5 % Normal 11.0-15.0 [facility] Comment on above: Performed By: #### C BC #### [facility] [address] [place] [address] Dr. Wally Zapien Hematocrit (Bld) [Volume fraction] 43.7 % Normal 42.0-54.0 [facility] Comment on above: Performed By: #### C BC #### [facility] [address] [place] [address] Dr. Wally Zapien Hemoglobin (Bld) [Mass/Vol] 15.4 g/dL Normal 14.0-18.0 [facility] Comment on above: Performed By: #### C BC #### [facility] [address] [place] [address] Dr. Wally Zapien IG # 0.02 10e3/ul Normal 0.00-0.03 [facility] Comment on above: Performed By: #### C BC #### [facility] [address] [place] [address] Dr. Wally Zapien IG % 0.5 % Normal 0.0-0.5 [facility] Comment on above: Performed By: #### C BC #### [facility] [address] [place] [address] Dr. Wally Zapien LYMPH # 1.7 103/ul Normal 1.2-3.8 [facility] Comment on above: Performed By: #### C BC #### [facility] [address] [place] [address] Dr. Wally Zapien Lymphocytes/100 WBC (Bld) 42.6 % Normal 20.5-60.0 [facility] Comment on above: Performed By: #### C BC #### [facility] [address] [place] [address] Dr. Wally Zapien MANUAL DIFF REQ NO Normal [facility] Comment on above: Performed By: #### C BC #### [facility] [address] [place] [address] Dr. Wally Zapien MCH (RBC) [Entitic mass] 31.6 pg Normal 25.9-34.0 [facility] Comment on above: Performed By: #### C BC #### [facility] [address] [place] [address] Dr. Wally Zapien MCHC (RBC) [Mass/Vol] 35.2 g/dL Normal 29.9-35.2 [facility] Comment on above: Performed By: #### C BC #### [facility] [address] [address] [address] Wally Zapien MCV (RBC) [Entitic vol] 89.5 fL Normal 80.0-94.0 [facility] Comment on above: Performed By: #### C BC #### [facility] [address] [address] [address] Wally Zapien MONO # 0.4 103/ul Normal 0.3-0.8 [facility] Comment on above: Performed By: #### C BC #### [facility] [address] [address] [address] Wally Zapien Monocytes/100 WBC (Bld) 9.2 % Normal 1.7-12.0 [facility] Comment on above: Performed By: #### C BC #### [facility] [address] [place] [address] Dr. Wally Zapien NEUT # 1.7 103/ul Normal 1.4-6.5 [facility] Comment on above: Performed By: #### C BC #### [facility] [address] [place] [address] Dr. Wally Zapien Neutrophils/100 WBC (Bld) 42.5 % Critically low 43.0-75.0 [facility] Comment on above: Performed By: #### C BC #### [facility] [address] [place] [address] Dr. Wally Zapien Platelet mean volume (Bld) [Entitic vol] 9.9 fL Normal 9.5-13.5 [facility] Comment on above: Performed By: #### C BC #### [facility] [address] [place] [address] Dr. Wally Zapien PLT 149 103/ul Critically low 150-450 [facility] Comment on above: Performed By: #### C BC #### [facility] [address] [address] [address] Wally Zapien RBC 4.88 106/ul Normal 4.70-6.10 [facility] Comment on above: Performed By: #### C BC #### [facility] [address] [place] [address] Dr. Wally Zapien WBC 4.0 103/ul Normal 4.0-11.0 [facility] Comment on above: Performed By: #### C BC #### [facility] [address] [place] [address] Dr. Wally Zapien CULTURE URINEon 09-24-2022 CULTURE URINE Culture Observations: LIGHT GROWTH OF MIXED SKIN GENNA. NO POTENTIAL PATHOGENS SEEN. Normal [facility] Comment on above: Performed By: #### U RCX #### [facility] [address] [place] [address] Dr. Wally Zapien FREE THYROXINE INDEX T7on FTI 2.52 Normal 1.30-4.50 [facility] Comment on above: Performed By: #### U RCX #### [facility] [address] [place] [address] Dr. Wally Zapien T3U 36.0 % Normal 33.0-40.0 [facility] Comment on above: Performed By: #### U RCX #### [facility] [address] [place] [address] Dr. Wally Zapien T4 [Mass/Vol] 7.00 ug/dL Normal 4.50-12.10 [facility] Comment on above: Performed By: #### U RCX #### [facility] [address] [place] [address] Dr. Wally Zapien GLYCOHEMOGLOBIN A1Con 2022 ADA RECOMMENDATION SEE BELOW Normal [facility] Comment on above: Result Comment: ADA RECOMMENDED LIMIT 4.0 - 6.0 ADA THERAPEUTIC TARGET < 7.0 ACTION SUGGESTED > 7.0 Performed By: #### A 1C #### [facility] [address] [place] [address] Dr. Wally Zapien Glucose [Mass/Vol] 123 mg/dL Normal [facility] Comment on above: Performed By: #### A 1C #### [facility] [address] [place] [address] Dr. Wally Zapien HbA1c (Bld) [Mass fraction] 5.9 % Normal 4.5-6.2 [facility] Comment on above: Performed By: #### A 1C #### [facility] [address] [address] [address] Wally Zapien LIPID PROFILEon 09-24-2022 CHOL-HDL RATIO NORM SEE BELOW Normal [facility] Comment on above: Result Comment: 3.3 - 4.4 LOW RISK 4.4 - 7.1 AVERAGE RISK 7.1 - 11.0 MODERATE RISK >11.0 HIGH RISK Performed By: #### U RCX #### [facility] [address] [address] [address] Wally Zapien Cholesterol [Mass/Vol] 117 mg/dL Normal <=200 [facility] Comment on above: Performed By: #### U RCX #### [facility] [address] [address] [address] Wally Zapien Cholesterol in HDL [Mass/Vol] 38 mg/dL Critically low 40-60 [facility] Comment on above: Performed By: #### U RCX #### [facility] [address] [address] [address] Wally Zapien Cholesterol in LDL [Mass/Vol] 32.6 mg/dL Normal [facility] Comment on above: Performed By: #### U RCX #### [facility] [address] [address] [address] Wally Zapien Cholesterol.total/Ch olesterol in HDL [Mass ratio] 3.1 {ratio} Normal [facility] Comment on above: Performed By: #### U RCX #### [facility] [address] [address] [address] Wally Zapien HDL NORMAL > or = 60 mg/dl - LOW CARDIOVASCULAR RISK <40 mg/dl - HIGH CARDIOVASCULAR RISK Normal [facility] Comment on above: Performed By: #### U RCX #### [facility] [address] [address] [address] Wally Zapien LDL CALC NORMAL SEE BELOW Normal [facility] Comment on above: Result Comment: <100 mg/dl OPTIMAL 100 - 129 mg/dl NEAR OR ABOVE OPTIMAL 130 - 159 mg/dl BORDERLINE HIGH 160 - 189 mg/dl HIGH >190 mg/dl VERY HIGH Performed By: #### U RCX #### [facility] [address] [address] [address] Wally Zapien Triglyceride [Mass/Vol] 232 mg/dL Critically high <=150 [facility] Comment on above: Performed By: #### U RCX #### [facility] [address] [place] [address] Dr. Wally Zapien VLDL CALC 46.4 mg/dL Normal [facility] Comment on above: Performed By: #### U RCX #### [facility] [address] [address] [address] Wally Zapien PROF 14(COMP METB)on 023 Albumin [Mass/Vol] 3.8 g/dL Normal 3.4-5.0 [facility] Comment on above: Performed By: #### B LABELING MACHINE OPERATOR, T7, LIPID, TSH, CMP, URIC #### [facility] [address] [place] [address] Dr. Wally Zapien Albumin/Globulin [Mass ratio] 1.2 {ratio} Normal [facility] Comment on above: Performed By: #### B LABELING MACHINE OPERATOR, T7, LIPID, TSH, CMP, URIC #### [facility] [address] [place] [address] Dr. Wally Zapien ALP [Catalytic activity/Vol] 80 U/L Normal 46-116 [facility] Comment on above: Performed By: #### B LABELING MACHINE OPERATOR, T7, LIPID, TSH, CMP, URIC #### [facility] [address] [place] [address] Dr. Wally Zapien ALT [Catalytic activity/Vol] 34 U/L Normal 16-63 [facility] Comment on above: Performed By: #### B LABELING MACHINE OPERATOR, T7, LIPID, TSH, CMP, URIC #### [facility] [address] [place] [address] Dr. Wally Zapien Anion gap [Moles/Vol] 11.3 mmol/L Normal [facility] Comment on above: Performed By: #### B LABELING MACHINE OPERATOR, T7, LIPID, TSH, CMP, URIC #### [facility] [address] [place] [address] Dr. Wally Zapien AST [Catalytic activity/Vol] 24 U/L Normal 15-37 [facility] Comment on above: Performed By: #### B LABELING MACHINE OPERATOR, T7, LIPID, TSH, CMP, URIC #### [facility] [address] [place] [address] Dr. Wally Zapien Bilirubin [Mass/Vol] 1.0 mg/dL Normal 0.2-1.0 [facility] Comment on above: Performed By: #### B LABELING MACHINE OPERATOR, T7, LIPID, TSH, CMP, URIC #### [facility] [address] [place] [address] Dr. Wally Zapien Calcium [Mass/Vol] 8.5 mg/dL Normal 8.5-10.1 [facility] Comment on above: Performed By: #### B LABELING MACHINE OPERATOR, T7, LIPID, TSH, CMP, URIC #### [facility] [address] [place] [address] Dr. Wally Zapien Chloride [Moles/Vol] 105 mmol/L Normal 98-107 [facility] Comment on above: Performed By: #### B LABELING MACHINE OPERATOR, T7, LIPID, TSH, CMP, URIC #### [facility] [address] [place] [address] Dr. Wally Zapien CO2 [Moles/Vol] 28.6 mmol/L Normal 21.0-32.0 [facility] Comment on above: Performed By: #### B LABELING MACHINE OPERATOR, T7, LIPID, TSH, CMP, URIC #### [facility] [address] [place] [address] Dr. Wally Zapien Creatinine [Mass/Vol] 0.74 mg/dL Normal 0.70-1.30 [facility] Comment on above: Performed By: #### B LABELING MACHINE OPERATOR, T7, LIPID, TSH, CMP, URIC #### [facility] [address] [place] [address] Dr. Wally Zapien EGFR-AF BELIZEAN >60 Normal >=60 [facility] Comment on above: Performed By: #### B LABELING MACHINE OPERATOR, T7, LIPID, TSH, CMP, URIC #### [facility] [address] [place] [address] Dr. Wally Zapien EGFR-NON AF BELIZEAN >60 Normal >=60 [facility] Comment on above: Performed By: #### B LABELING MACHINE OPERATOR, T7, LIPID, TSH, CMP, URIC #### [facility] [address] [address] [address] Wally Zapien Globulin (S) [Mass/Vol] 3.2 g/dL Normal [facility] Comment on above: Performed By: #### B LABELING MACHINE OPERATOR, T7, LIPID, TSH, CMP, URIC #### [facility] [address] [place] [address] Dr. Wally Zapien Glucose [Mass/Vol] 102 mg/dL Normal 74-106 [facility] Comment on above: Performed By: #### B LABELING MACHINE OPERATOR, T7, LIPID, TSH, CMP, URIC #### [facility] [address] [place] [address] Dr. Wally Zapien Potassium [Moles/Vol] 3.9 mmol/L Normal 3.5-5.1 [facility] Comment on above: Performed By: #### B LABELING MACHINE OPERATOR, T7, LIPID, TSH, CMP, URIC #### [facility] [address] [place] [address] Dr. Wally Zapien Protein [Mass/Vol] 7.0 g/dL Normal 6.4-8.2 [facility] Comment on above: Performed By: #### B LABELING MACHINE OPERATOR, T7, LIPID, TSH, CMP, URIC #### [facility] [address] [place] [address] Dr. Wally Zapien Sodium [Moles/Vol] 141 mmol/L Normal 136-145 [facility] Comment on above: Performed By: #### B LABELING MACHINE OPERATOR, T7, LIPID, TSH, CMP, URIC #### [facility] [address] [address] [address] Wally Zapien Urea nitrogen [Mass/Vol] 19.0 mg/dL Critically high 7.0-18.0 [facility] Comment on above: Performed By: #### B LABELING MACHINE OPERATOR, T7, LIPID, TSH, CMP, URIC #### [facility] [address] [place] [address] Dr. Wally Zapien Urea nitrogen/Creatinine [Mass ratio] 25.7 mg/mg Normal [facility] Comment on above: Performed By: #### B LABELING MACHINE OPERATOR, T7, LIPID, TSH, CMP, URIC #### [facility] [address] [place] [address] Dr. Wally Zapien TSHon 09-24-2022 TSH 1.535 uIU/mL Normal 0.358-3.740 [facility] Comment on above: Performed By: #### U RCX #### [facility] [address] [place] [address] Dr. Wally Zapien UA RANDOM W/MICROSCOPICon BACTERIA NONE SEEN Normal NONE SEEN [facility] Comment on above: Performed By: #### U RCX #### [facility] [address] [place] [address] Dr. Wally Zapien Bilirubin Ql (U) Negative Normal NEGATIVE [facility] Comment on above: Performed By: #### U RCX #### [facility] [address] [place] [address] Dr. Wally Zapien CAST NONE SEEN Normal NONE SEEN [facility] Comment on above: Performed By: #### U RCX #### [facility] [address] [place] [address] Dr. Wally Zapien Clarity (U) CLEAR Normal CLEAR [facility] Comment on above: Performed By: #### U RCX #### [facility] [address] [place] [address] Dr. Wally Zapien Color (U) YELLOW Normal YELLOW [facility] Comment on above: Performed By: #### U RCX #### [facility] [address] [place] [address] Dr. Wally Zapien Crystals LM Nom (Urine sed) NONE SEEN Normal NONE SEEN [facility] Comment on above: Performed By: #### U RCX #### [facility] [address] [place] [address] Dr. Wally Zpaien Epithelial cells LM Ql (Urine sed) FEW Abnormal NONE SEEN /RARE [facility] Comment on above: Performed By: #### U RCX #### [facility] [address] [address] [address] Wally Zapien Glucose Ql (U) Negative Normal NEGATIVE [facility] Comment on above: Performed By: #### U RCX #### [facility] [address] [address] [address] Wally Zapien Hemoglobin Ql (U) TRACE-INTACT Abnormal NEGATIVE [facility] Comment on above: Performed By: #### U RCX #### [facility] [address] [address] [address] Wally Zapien Ketones Ql (U) Negative Normal NEGATIVE [facility] Comment on above: Performed By: #### U RCX #### [facility] [address] [place] [address] Dr. Wally Zapien LEUKOCYTES Negative Normal NEGATIVE [facility] Comment on above: Performed By: #### U RCX #### [facility] [address] [place] [address] Dr. Wally Zapien MUCOUS LARGE Abnormal NONE SEEN [facility] Comment on above: Performed By: #### U RCX #### [facility] [address] [place] [address] Dr. Wally Zapien Nitrite Ql (U) Negative Normal NEGATIVE [facility] Comment on above: Performed By: #### U RCX #### [facility] [address] [place] [address] Dr. Wally Zapien pH (U) 6.5 [pH] Normal 5-9 [facility] Comment on above: Performed By: #### U RCX #### [facility] [address] [place] [address] Dr. Wally Zapien RBC 2-5 Abnormal 0-2 [facility] Comment on above: Performed By: #### U RCX #### [facility] [address] [place] [address] Dr. Wally Zapien SPEC GRAVITY 1.025 Normal 1.005-<=1.025 [facility] Comment on above: Performed By: #### U RCX #### [facility] [address] [place] [address] Dr. Wally Zapien UA PROTEIN TRACE Normal NEGATIVE/ TRACE [facility] Comment on above: Performed By: #### U RCX #### [facility] [address] [place] [address] Dr. Wally Zapien Urobilinogen Qn (U) 1.0 {Suma'U}/dL Normal 0.2 - 1. 0 [facility] Comment on above: Performed By: #### U RCX #### [facility] [address] [place] [address] Dr. Wally Zapien WBC 0-2 Abnormal NONE SEEN [facility] Comment on above: Performed By: #### U RCX #### [facility] [address] [place] [address] Dr. Wally Zapien URIC ACID SERUMon 09-24-2022 Urate [Mass/Vol] 3.7 mg/dL Normal 3.5-7.2 [facility] Comment on above: Performed By: #### B LABELING MACHINE OPERATOR, T7, LIPID, TSH, CMP, URIC #### [facility] [address] [place] [address] Dr. Wally Zapien VITAMIN D 25 OHon 09-24-2022 VIT D 25-OH 42.6 ng/mL Normal [facility] Comment on above: Performed By: #### U RCX #### [facility] [address] [place] [address] Dr. Wally Zapien VIT D RANGES SEE BELOW Normal [facility] Comment on above: Result Comment: <20 ng/mL Vit D deficient 20 - <30 ng/mL Vit D insufficient 30 - 100 ng/mL Vit D sufficient >100 ng/mL Potential Toxicity Performed By: #### U RCX #### [facility] [address] [place] [address] Dr. Wally Zapien CBC AUTO DIFFon 09-18-2022 BASO # 0.0 103/ul Normal 0.0-0.1 [facility] Comment on above: Performed By: #### C BC #### [facility] [address] [place] [address] Dr. Wally Zapien Basophils/100 WBC (Bld) 0.7 % Normal 0.2-2.0 [facility] Comment on above: Performed By: #### C BC #### [facility] [address] [place] [address] Dr. Wally Zapien EO # 0.1 103/ul Normal 0.0-0.7 [facility] Comment on above: Performed By: #### C BC #### [facility] [address] [place] [address] Dr. Wally Zapien Eosinophils/100 WBC (Bld) 2.8 % Normal 0.9-7.0 [facility] Comment on above: Performed By: #### C BC #### [facility] [address] [place] [address] Dr. Wally Zapien Erythrocyte distribution width (RBC) [Ratio] 12.7 % Normal 11.0-15.0 [facility] Comment on above: Performed By: #### C BC #### [facility] [address] [place] [address] Dr. Wally Zapien Hematocrit (Bld) [Volume fraction] 44.1 % Normal 42.0-54.0 [facility] Comment on above: Performed By: #### C BC #### [facility] [address] [place] [address] Dr. Wally Zapien Hemoglobin (Bld) [Mass/Vol] 15.3 g/dL Normal 14.0-18.0 [facility] Comment on above: Performed By: #### C BC #### [facility] [address] [place] [address] Dr. Wally Zapien IG # 0.01 10e3/ul Normal 0.00-0.03 [facility] Comment on above: Performed By: #### C BC #### [facility] [address] [place] [address] Dr. Wally Zapien IG % 0.2 % Normal 0.0-0.5 [facility] Comment on above: Performed By: #### C BC #### [facility] [address] [place] [address] Dr. Wally Zapien LYMPH # 1.8 103/ul Normal 1.2-3.8 [facility] Comment on above: Performed By: #### C BC #### [facility] [address] [place] [address] Dr. Wally Zapien Lymphocytes/100 WBC (Bld) 43.0 % Normal 20.5-60.0 [facility] Comment on above: Performed By: #### C BC #### [facility] [address] [place] [address] Dr. Wally Zapien MANUAL DIFF REQ NO Normal [facility] Comment on above: Performed By: #### C BC #### [facility] [address] [place] [address] Dr. Wally Zapien MCH (RBC) [Entitic mass] 32.1 pg Normal 25.9-34.0 [facility] Comment on above: Performed By: #### C BC #### [facility] [address] [place] [address] Dr. Wally Zapien MCHC (RBC) [Mass/Vol] 34.7 g/dL Normal 29.9-35.2 [facility] Comment on above: Performed By: #### C BC #### [facility] [address] [place] [address] Dr. Wally Zapien MCV (RBC) [Entitic vol] 92.5 fL Normal 80.0-94.0 [facility] Comment on above: Performed By: #### C BC #### [facility] [address] [place] [address] Dr. Wally Zapien MONO # 0.4 103/ul Normal 0.3-0.8 [facility] Comment on above: Performed By: #### C BC #### [facility] [address] [place] [address] Dr. Wally Zapien Monocytes/100 WBC (Bld) 9.2 % Normal 1.7-12.0 [facility] Comment on above: Performed By: #### C BC #### [facility] [address] [place] [address] Dr. Wally Zapien NEUT # 1.9 103/ul Normal 1.4-6.5 [facility] Comment on above: Performed By: #### C BC #### [facility] [address] [address] [address] Wally Zapien Neutrophils/100 WBC (Bld) 44.1 % Normal 43.0-75.0 [facility] Comment on above: Performed By: #### C BC #### [facility] [address] [address] [address] Wally Zapien Platelet mean volume (Bld) [Entitic vol] 10.4 fL Normal 9.5-13.5 [facility] Comment on above: Performed By: #### C BC #### [facility] [address] [address] [address] Wally Zapien PLT 152 103/ul Normal 150-450 [facility] Comment on above: Performed By: #### C BC #### [facility] [address] [place] [address] Dr. Wally Zapien RBC 4.77 106/ul Normal 4.70-6.10 [facility] Comment on above: Performed By: #### C BC #### [facility] [address] [place] [address] Dr. Wally Zapien WBC 4.2 103/ul Normal 4.0-11.0 [facility] Comment on above: Performed By: #### C BC #### [facility] [address] [place] [address] ABD/PELVIS WO CONon [...] MAYRA LOPEZ Date: 2022-09-18 13:40 Normal [facility] ER URINE PROFILEon 3 Bilirubin Ql (U) SMALL Abnormal NEGATIVE [facility] Comment on above: Performed By: #### Olinda WILLIS UMICRO #### [facility] [address] [place] [address] Dr. Wally Zapien Clarity (U) SL CLOUDY Abnormal CLEAR [facility] Comment on above: Performed By: #### Olinda WILLIS UMICRO #### [facility] [address] [address] [address] Wally Zapien Color (U) RED Abnormal YELLOW [facility] Comment on above: Performed By: #### Olinda WILLIS UMICRO #### [facility] [address] [address] [address] Wally Zapien ERUAHD A micrscopic examination will be performed if indicated. Normal [facility] Comment on above: Performed By: #### Olinda WILLIS UMICRO #### [facility] [address] [address] [address] Wally Zapien Glucose Ql (U) Negative Normal NEGATIVE [facility] Comment on above: Performed By: #### Olinda WILLIS UMICRO #### [facility] [address] [place] [address] Dr. Wally Zapien Hemoglobin Ql (U) LARGE Abnormal NEGATIVE [facility] Comment on above: Performed By: #### BIMAL PADRONRO #### [facility] [address] [place] [address] Dr. Wally Zapien Ketones Ql (U) TRACE Abnormal NEGATIVE [facility] Comment on above: Performed By: #### BIMAL PADRONRO #### [facility] [address] [place] [address] Dr. Wally Zapien LEUKOCYTES TRACE Abnormal NEGATIVE [facility] Comment on above: Performed By: #### BIMAL PADRONRO #### [facility] [address] [place] [address] Dr. Wally Zapien Nitrite Ql (U) Positive Abnormal NEGATIVE [facility] Comment on above: Performed By: #### BIMAL PADRONRO #### [facility] [address] [place] [address] Dr. Wally Zapien pH (U) 5.5 [pH] Normal 5-9 [facility] Comment on above: Performed By: #### BIMAL PADRONRO #### [facility] [address] [place] [address] Dr. Wally Zapien Protein (U) [Mass/Vol] 100 mg/dL Abnormal NEGATIVE/ TRACE [facility] Comment on above: Performed By: #### BIMAL PADRONRO #### [facility] [address] [place] [address] Dr. Wally Zapien SPEC GRAVITY 1.025 Normal 1.005-<=1.025 [facility] Comment on above: Performed By: #### BIMAL PADRONRO #### [facility] [address] [place] [address] Dr. Wally Zapien UR MICRO IND INDICATED Normal [facility] Comment on above: Performed By: #### BIMAL PADRONRO #### [facility] [address] [place] [address] Dr. Wally Zapien Urobilinogen Qn (U) 1.0 {Suma'U}/dL Normal 0.2 - 1. 0 [facility] Comment on above: Performed By: #### E KERRI WILLIS #### [facility] [address] [place] [address] Dr. Wally Zapien PROF CHEM 8 (BAS METB)on Anion gap [Moles/Vol] 10.5 mmol/L Normal [facility] Comment on above: Performed By: #### U RCX #### [facility] [address] [place] [address] Dr. Wally Zapien Calcium [Mass/Vol] 8.6 mg/dL Normal 8.5-10.1 [facility] Comment on above: Performed By: #### U RCX #### [facility] [address] [place] [address] Dr. Wally Zapien Chloride [Moles/Vol] 105 mmol/L Normal 98-107 [facility] Comment on above: Performed By: #### U RCX #### [facility] [address] [place] [address] Dr. Wally Zapien CO2 [Moles/Vol] 28.8 mmol/L Normal 21.0-32.0 [facility] Comment on above: Performed By: #### U RCX #### [facility] [address] [place] [address] Dr. Wally Zapien Creatinine [Mass/Vol] 0.85 mg/dL Normal 0.70-1.30 [facility] Comment on above: Performed By: #### U RCX #### [facility] [address] [place] [address] Dr. Wally Zapien EGFR-AF BELIZEAN >60 Normal >=60 [facility] Comment on above: Performed By: #### U RCX #### [facility] [address] [place] [address] Dr. Wally Zapien EGFR-NON AF BELIZEAN >60 Normal >=60 [facility] Comment on above: Performed By: #### U RCX #### [facility] [address] [place] [address] Dr. Wally Zapien Glucose [Mass/Vol] 112 mg/dL Critically high 74-106 [facility] Comment on above: Performed By: #### U RCX #### [facility] [address] [place] [address] Dr. Wally Zapien Potassium [Moles/Vol] 4.3 mmol/L Normal 3.5-5.1 [facility] Comment on above: Performed By: #### U RCX #### [facility] [address] [place] [address] Dr. Wally Zapien Sodium [Moles/Vol] 140 mmol/L Normal 136-145 [facility] Comment on above: Performed By: #### U RCX #### [facility] [address] [place] [address] Dr. Wally Zapien Urea nitrogen [Mass/Vol] 23.0 mg/dL Critically high 7.0-18.0 [facility] Comment on above: Performed By: #### U RCX #### [facility] [address] [place] [address] Dr. Wally Zapien Urea nitrogen/Creatinine [Mass ratio] 27.1 mg/mg Normal [facility] Comment on above: Performed By: #### U RCX #### [facility] [address] [place] [address] Dr. Wally Zapien URINE MICROSCOPIC ONLYon BACTERIA TRACE Abnormal NONE SEEN [facility] Comment on above: Performed By: #### E RUR UMICRO #### [facility] [address] [place] [address] Dr. Wally Zapien Bacteria identified Cx Nom (U) NOT INDICATED Normal [facility] Comment on above: Performed By: #### E RUR, UMICRO #### [facility] [address] [place] [address] Dr. Wally Zapien CAST NONE SEEN Normal NONE SEEN [facility] Comment on above: Performed By: #### E RUR, UMICRO #### [facility] [address] [place] [address] Dr. Wally Zapien Crystals LM Nom (Urine sed) NONE SEEN Normal NONE SEEN [facility] Comment on above: Performed By: #### E RUR, UMICRO #### [facility] [address] [address] [address] Wally Zapien Epithelial cells LM Ql (Urine sed) RARE Normal NONE SEEN /RARE [facility] Comment on above: Performed By: #### E RUR, UMICRO #### [facility] [address] [address] [address] Wally Zapien MUCOUS NONE SEEN Normal NONE SEEN [facility] Comment on above: Performed By: #### E RUR, UMICRO #### [facility] [address] [address] [address] Wally Zapien RBC (U) [#/Vol] /uL Abnormal 0-2 [facility] Comment on above: Performed By: #### E RUR, UMICRO #### [facility] [address] [address] [address] Wally Zapien WBC 2-5 Abnormal NONE SEEN [facility] Comment on above: Performed By: #### E RUR, UMICRO #### [facility] [address] [address] [address] Wally Zapien Vital Signs Date Time Vital Sign Value Performing Clinician Facility 03-17-2024 14:58-0400 Blood Pressure Location [facility] 03-17-2024 14:58-0400 Diastolic blood pressure 77 mm[Hg] [facility] 03-17-2024 14:58-0400 Heart rate 80 /min Lazara OrzeStandardized Safety [facility] 03-17-2024 14:58-0400 Respiratory rate 16 /min [facility] 03-17-2024 14:58-0400 Systolic blood pressure 132 mm[Hg] [facility] 02-11-2024 09:59-0400 Blood Pressure Location Lazara Orzech [facility] 02-11-2024 09:59-0400 Diastolic blood pressure 84 mm[Hg] Lazara Orzech [facility] 02-11-2024 09:59-0400 Heart rate 71 /min Lazara Orzech [facility] 02-11-2024 09:59-0400 Systolic blood pressure 138 mm[Hg] Lazara Orzech [facility] 07-17-2023 15:40-0500 Body height 160.02 cm Rocio Chan Other [place] Other 07-17-2023 15:40-0500 Body mass index (BMI) [Ratio] 37.55 kg/m2 Rocio Rocio Other [place] Other 07-17-2023 15:40-0500 Body temperature 98.2 [degF] Rocio Rocio Other [place] Other 07-17-2023 15:40-0500 Body weight 96.16 kg Rocio Rocio Other [place] Other 07-17-2023 15:40-0500 Diastolic blood pressure 76 mm[Hg] Rocio Chan Other [place] Other 07-17-2023 15:40-0500 Respiratory rate 18 /min Rociodouglas Chan Other [place] Other 07-17-2023 15:40-0500 SaO2% (BldA) [Mass fraction] 96 % Rocio Chan Other [facility] [employer] Other 07-17-2023 15:40-0500 Systolic blood pressure 134 mm[Hg] Rocio Chan Other [facility] [employer] Other 09-26-2022 13:26-0500 Blood Pressure Location [place] [facility] [facility] 09-26-2022 13:26-0500 Diastolic blood pressure 74 mm[Hg] [place] [facility] 09-26-2022 13:26-0500 Heart rate 52 /min [place] VAL[facility] [facility] 09-26-2022 13:26-0500 Systolic blood pressure 173 mm[Hg] [place] [facility] [facility] 04-16-2022 13:49-0400 Diastolic blood pressure 87 mm[Hg] [place] VAL[facility] [facility] 04-16-2022 13:49-0400 Mean blood pressure 110 mm[Hg] [place] VAL[place] [facility] 04-16-2022 13:49-0400 Systolic blood pressure 156 mm[Hg] [place] [facility] [facility] 04-16-2022 13:37-0400 Blood Pressure Location [place] VALENT[place] [facility] 04-16-2022 13:37-0400 Diastolic blood pressure 102 mm[Hg] [place] [facility] [facility] 04-16-2022 13:37-0400 Heart rate 81 /min [place] [facility] 04-16-2022 13:37-0400 Respiratory rate 16 /min [place] [facility] 04-16-2022 13:37-0400 Systolic blood pressure 191 mm[Hg] [place] [facility] [facility] [place] Encounters Encounter Date Encounter Type Care Provider Facility Start: 03-18-2024 End: 03-18-2024 ambulatory Emily Maria Facility:[facility] Start: 03-18-2024 End: 03-18-2024 Patient encounter procedure Emily Maria [facility] [place] [facility] Start: 03-17-2024 End: 03-17-2024 ambulatory Lazara X Orzech [facility] Start: 03-17-2024 End: 03-17-2024 Patient encounter procedure Lazara X Orzech [facility] Start: 02-11-2024 End: 02-11-2024 Lab Drop off Lazara X Orzech [facility] Start: 02-11-2024 End: 02-11-2024 ambulatory Lazara X Orzech Facility:[facility] Start: 02-11-2024 End: 02-11-2024 Patient encounter procedure Lazara Echavarria Ramoalexander [facility] Start: 11-18-2023 End: 11-19-2023 ambulatory Fabrice Dias MD Facility:[facility] Start: 10-28-2023 End: 10-29-2023 ambulatory Fabrice Dias MD Facility:[facility] Start: 09-30-2023 End: 10-01-2023 ambulatory Fabrice Dias MD Facility:[facility] Start: 2023 End: 09-24-2023 ambulatory Fabrice Dias MD Facility:[facility] Start: 07-17-2023 End: 07-17-2023 ambulatory Rocio Chan Other [place] Other Start: 07-17-2023 Office outpatient visit 15 minutes Rocio Chan [facility] Start: 05-27-2023 End: 05-28-2023 ambulatory Fabrice Dias MD Facility:[facility] Start: 01-23-[address] ELIANA BA . Facili ty:[facility] Start: 09-26-2022 End: 09-26-2022 Patient encounter procedure [place] VALENTIN [facility] Start: 09-24-2022 End: 09-25-[address] ELIANA BA . Facility:[facility] Start: 09-18-2022 End: 09-18-2022 ambulatory KARLOS MELTON . Facility:[facility] Start: 04-16-2022 End: 04-16-2022 Patient encounter procedure [place] VALENTIN [facility] Procedures Date Procedure Procedure Detail Performing Clinician Start: 09-24-2022 PSA screening KARLOS ALVAREZ . Comment on above: Performed By: #### U RCX #### [facility] [address] [place] [address] Dr. Wally Zapien Start: 03-17-2019 Cystoscope, device ( physical object) [place] [facility] Cardiac catheterization Patr ick JAYDON Coronary artery bypass graft [place] VAL[facility] Extraction of cataract Patri ck JAYDON Hydrocelectomy [place] MEYER S Inguinal herniorrhaphy Patri ck JAYDON Large intestine excision Pat noe JAYDON Prosthetic arthropla sty of the hip [place] [facility] Repair of musculoten dinous cuff of shoulder [place] [facility] Tonsillectomy and adenoidectomy [place] [facility] Plan of Treatment Date Care Activity Detail Author Start: 04-14-2024 ambulatory Ambulatory Facility:[facility] [place] Immunizations Immunization Date Immunization Notes Care Provider Guru [place] 05-24-2022 influenza virus vacc ine, unspecified formulation [place] [facility] 04-20-2022 SARS-CoV-2 mRNA (ebjchxitglp-ngma-gjaqoi e) vaccine [place] [facility] 06-19-2021 SARS-CoV-2 (COVID-19 ) mRNA BNT-162b2 vax [place] [facility] 06-01-2021 influenza virus vacc ine, unspecified formulation [place] [facility] [facility] 05-23-2021 influenza virus vacc ine, unspecified formulation [employer] [facility] 11-10-2020 SARS-CoV-2 (COVID-19 ) mRNA BNT-162b2 vax [place] [facility] [facility] 10-20-2020 SARS-CoV-2 (COVID-19 ) mRNA BNT-162b2 vax [employer] [facility] 08-04-2020 zoster vaccine recombinant [place] [employer] [facility] 07-06-2020 SARS-CoV-2 (COVID-19 ) Ad26 vaccine, recombinant [facility] 06-24-2020 influenza virus vacc ine, unspecified formulation [facility] 06-03-2020 zoster vaccine recombinant [place] [employer] [facility] 06-02-2020 SARS-CoV-2 (COVID-19 ) Ad26 vaccine, recombinant [facility] 05-26-2020 influenza virus vacc ine, unspecified formulation [facility] 05-29-2019 influenza virus vacc ine, unspecified formulation [facility] 06-17-2018 influenza virus vacc ine, unspecified formulation [facility] 05-14-2017 influenza virus vacc ine, unspecified formulation [place] [facility] 05-14-2017 pneumococcal polysaccharide vaccine, 23 valent [place] [facility] [facility] 05-17-2016 influenza virus vacc ine, unspecified formulation [place] [facility] 05-17-2016 pneumococcal conjuga te vaccine, 13 valent [place] [facility] [facility] 05-16-2015 influenza virus vacc ine, unspecified formulation [place] [facility] Payers Date Payer Category Payer Private Health Insurance 1957 Medicare [id number] 1940 Unknown [id number] 2.16.84 [id number] 1940 Unknown [id number] 2.16.84 [id number] 1942 Unknown [id number] 2.16.84 [id number] 1942 Unknown [id number] 2.16. [id number] 1942 Unknown [id number] 2.16. [id number] 1942 Unknown [id number] 2.16. [id number] 1942 Unknown [id number] 2.16. [id number] 1942 Unknown [id number] 2.16. [id number] 1942 Unknown [id number] 2.16.8 [id number] 1942 Unknown [id number] 2.16.8 [id number] 1942 Unknown [id number] 2.16.8 [id number] 1942 Unknown [id number] 2.16.8 [id number] 1942 Unknown [id number] 2.16.8 [id number] Social History Date Type Detail Facility Start: 04-16-2022 End: 03-17-2024 Tobacco smoking status Never smoked tobacco (finding) [facility] Tobacco smoking status Never [facility] Sex Assigned At Male [facility] Functional Status Date Assessment Result Facility 03-17-2024 Functional Status N/A [facility] 02-11-2024 Functional Status N/A [facility] 09-26-2022 Functional Status N/A [facility] 04-16-2022 Functional Status N/A [facility] Clinical Notes 10-06-2020 to 03-17-2024 Note Date & Type Note Facility 03-17-2024 Hospital Discharge instructions Patient Education 03/17/2024 14:59:22 Acute Urinary Retention, Male Acute Urinary Retention, Male Acute urinary retention is a condition in which a person is unable to pass urine or can only pass a little urine. This condition can happen suddenly and last for a short time. If left untreated, it can become long-term (chronic) and result in kidney damage or other serious complications. What are the causes? This condition may be caused by: Obstruction or narrowing of the tube that drains the bladder (urethra). This may be caused by surgery, problems with nearby organs, or injury to the bladder or urethra. Problems with the nerves in the bladder. Tumors in the area of the pelvis, bladder, or urethra. Certain medicines. Bladder or urinary tract infection. Constipation. What increases the risk? This condition is more likely to develop in older men. As men age, their prostate may become larger and may start to press or squeeze on the bladder or the urethra. Other chronic health conditions can increase the risk of acute urinary retention. These include: Diseases such as multiple sclerosis. Spinal cord injuries. Diabetes. Degenerative cognitive conditions, such as delirium or dementia. Psychological conditions. A man may hold his urine due to trauma or because he does not want to use the bathroom. What are the signs or symptoms? Symptoms of this condition include: Trouble urinating. Pain in the lower abdomen. How is this diagnosed? This condition is diagnosed based on a physical exam and your medical history. You may also have other tests, including: An ultrasound of the bladder or kidneys or both. Blood tests. A urine analysis. Additional tests may be needed, such as a CT scan, MRI, and kidney or bladder function tests. How is this treated? Treatment for this condition may include: Medicines. Placing a thin, sterile tube (catheter) into the bladder to drain urine out of the body. This is called an indwelling urinary catheter. After it is inserted, the catheter is held in place with a small balloon that is filled with sterile water. Urine drains from the catheter into a collection bag outside of the body. Behavioral therapy. Treatment for other conditions. If needed, you may be treated in the hospital for kidney function problems or to manage other complications. Follow these instructions at home: Medicines Take ibvj-yyc-kqvmtao and prescription medicines only as told by your health care provider. Avoid certain medicines, such as decongestants, antihistamines, and some prescription medicines. Do not take any medicine unless your health care provider approves. If you were prescribed an antibiotic medicine, take it as told by your health care provider. Do not stop using the antibiotic even if you start to feel better. General instructions Do not use any products that contain nicotine or tobacco. These products include cigarettes, chewing tobacco, and vaping devices, such as e-cigarettes. If you need help quitting, ask your health care provider. Drink enough fluid to keep your urine pale yellow. If you have an indwelling urinary catheter, follow the instructions from your health care provider. Monitor any changes in your symptoms. Tell your health care provider about any changes. If instructed, monitor your blood pressure at home. Report changes as told by your health care provider. Keep all follow-up visits. This is important. Contact a health care provider if: You have uncomfortable bladder contractions that you cannot control (spasms). You leak urine with the spasms. Get help right away if: You have chills or a fever. You have blood in your urine. You have a catheter and the following happens: ?Your catheter stops draining urine. ?Your catheter falls out. Summary Acute urinary retention is a condition in which a person is unable to pass urine or can only pass a little urine. If left untreated, this condition can result in kidney damage or other serious complications. An enlarged prostate may cause this condition. As men age, their prostate gland may become larger and may press or squeeze on the bladder or the urethra. Treatment for this condition may include medicines and placement of an indwelling urinary catheter. Monitor any changes in your symptoms. Tell your health care provider about any changes. This information is not intended to replace advice given to you by your health care provider. Make sure you discuss any questions you have with your health care provider. Document Revised: 05/03/2021 Document Reviewed: 05/03/2021 [employer] Patient Education 2022 [place]. Follow Up Care 03/13/2024 14:20:02 With:KIM Lino APRN, Lazara Echavarria, PARVIN, URL Address: When: Unknown [facility] 03-17-2024 Note Patient Education Urology Acute Urinary Retention, Male Acute urinary retention is a condition in which a person is unable to pass urine or can only pass a little urine. This condition can happen suddenly and last for a short time. If left untreated, it can become long-term (chronic) and result in kidney damage or other serious complications. What are the causes? This condition may be caused by: ? Obstruction or narrowing of the tube that drains the bladder (urethra). This may be caused by surgery, problems with nearby organs, or injury to the bladder or urethra. ? Problems with the nerves in the bladder. ? Tumors in the area of the pelvis, bladder, or urethra. ? Certain medicines. ? Bladder or urinary tract infection. ? Constipation. What increases the risk? This condition is more likely to develop in older men. As men age, their prostate may become larger and may start to press or squeeze on the bladder or the urethra. Other chronic health conditions can increase the risk of acute urinary retention. These include: ? Diseases such as multiple sclerosis. ? Spinal cord injuries. ? Diabetes. ? Degenerative cognitive conditions, such as delirium or dementia. ? Psychological conditions. A man may hold his urine due to trauma or because he does not want to use the bathroom. What are the signs or symptoms? Symptoms of this condition include: ? Trouble urinating. ? Pain in the lower abdomen. How is this diagnosed? This condition is diagnosed based on a physical exam and your medical history. You may also have other tests, including: ? An ultrasound of the bladder or kidneys or both. ? Blood tests. ? A urine analysis. ? Additional tests may be needed, such as a CT scan, MRI, and kidney or bladder function tests. How is this treated? Treatment for this condition may include: ? Medicines. ? Placing a thin, sterile tube (catheter) into the bladder to drain urine out of the body. This is called an indwelling urinary catheter. After it is inserted, the catheter is held in place with a small balloon that is filled with sterile water. Urine drains from the catheter into a collection bag outside of the body. ? Behavioral therapy. ? Treatment for other conditions. If needed, you may be treated in the hospital for kidney function problems or to manage other complications. Follow these instructions at home: Medicines ? Take yfju-kjn-iwphdem and prescription medicines only as told by your health care provider. Avoid certain medicines, such as decongestants, antihistamines, and some prescription medicines. Do not take any medicine unless your health care provider approves. ? If you were prescribed an antibiotic medicine, take it as told by your health care provider. Do not stop using the antibiotic even if you start to feel better. General instructions ? Do not use any products that contain nicotine or tobacco. These products include cigarettes, chewing tobacco, and vaping devices, such as e-cigarettes. If you need help quitting, ask your health care provider. ? Drink enough fluid to keep your urine pale yellow. ? If you have an indwelling urinary catheter, follow the instructions from your health care provider. ? Monitor any changes in your symptoms. Tell your health care provider about any changes. ? If instructed, monitor your blood pressure at home. Report changes as told by your health care provider. ? Keep all follow-up visits. This is important. Contact a health care provider if: ? You have uncomfortable bladder contractions that you cannot control (spasms). ? You leak urine with the spasms. Get help right away if: ? You have chills or a fever. ? You have blood in your urine. ? You have a catheter and the following happens: ? Your catheter stops draining urine. ? Your catheter falls out. Summary ? Acute urinary retention is a condition in which a person is unable to pass urine or can only pass a little urine. If left untreated, this condition can result in kidney damage or other serious complications. ? An enlarged prostate may cause this condition. As men age, their prostate gland may become larger and may press or squeeze on the bladder or the urethra. ? Treatment for this condition may include medicines and placement of an indwelling urinary catheter. ? Monitor any changes in your symptoms. Tell your health care provider about any changes. This information is not intended to replace advice given to you by your health care provider. Make sure you discuss any questions you have with your health care provider. Document Revised: 05/03/2021 Document Reviewed: 05/03/2021 [employer] Patient Education ? 2022 [employer]. [facility] 02-11-2024 Evaluation + Plan note Diagnostic Tests PendingUrine Culture 02/11/24 [facility] 02-11-2024 Hospital Discharge instructions Patient Education [...] Follow these instructions at home: Medicines Take ztzm-thq-ajrkcdj and prescription medicines only as told by [...] or the blood stops without treatment. Take xrxm-whh-mpmbxtq and prescription medicines only as told by your health care provider. Drink enough fluid to keep your urine pale yellow. This information is not intended to replace advice given to you by your health care provider. Make sure you discuss any questions you have with your health care provider. Document Revised: 04/12/2021 Document Reviewed: 04/12/2021 [employer] Patient Education 2022 [employer]. 02/11/2024 10:34:29 Benign Prostatic Hyperplasia Benign Prostatic [...] urethra. Follow these instructions at home: Take vxln-szp-yhszvvc and prescription medicines only as told by [...] provider. Document Revised: 02/28/2022 Document Reviewed: 02/28/2022 [employer] Patient Education 2022 [employer]. Follow Up Care 04/16/2022 14:54:37 With:KIM Lino APRN, Lazara Echavarria, PARVIN, URL Address: When: Unknown Comments:1 year With:JAYDON COE, Reno Maciel, URL Address: [facility] [address] , [place] [phone] When: Unknown [facility] 02-11-2024 Note - From: Julia Charlton To: [facility] - Administrative; Sent: 02/11/2024 10:28:36 EDT Show up: 08/26/2024 10:28:00 EST Subject: schedule 1 yr f/u Due Date/Time: 02/02/2025 10:28:00 EDT Reminder/Recall Patient needs scheduled for a 1 yr f/u, no labs [facility] 07-17-2023 Evaluation note Encounter Date [...] no improvement in 2 to 3 days [facility] 02-01-2023 Hospital Discharge instructions Patient Education [...] or mouth. Supplies needed: Soap. Alcohol-based hand heddler. Standard cleaning products. Disinfectants, such as bleach. [...] water are not available, use alcohol-based hand heddler. Avoid touching your face, mouth, nose, or [...] water. Air-dry your dishes or use a vice president of software development. Do not share dishes or eating utensils. [...] germs and not others. Read the senior software systems engineer's instructions or read online resources to determine [...] after each use, or according to senior software systems engineer's instructions. Wash reusable cleaning cloths and sanitize [...] water are not available, use alcohol-based hand heddler. In general: Stay home except to get [...] for Professionals in Infection Control and Epidemiology: professionals.site.apic.org/orcevvpo-jp-xmub/unw-ylxfyywvsv-rtpncod/home/ Summary It is important to know how [...] 05/21/2009 Document Revised: 12/08/2019 Document Reviewed: 11/06/2019 [employer] Patient Education 2019 [employer]. Follow Up Care 09/20/2022 14:58:28 With:Reno VALENTIN MD, URL Address: [facility] [address], [place] [address]- When:3 months Comments:UTI F/U [facility] 08-22-2022 Hospital Discharge instructions Patient Education 04/16/2022 [...] urethra. Follow these instructions at home: Take chke-rps-ehvnpuq and prescription medicines only as told by [...] 08/12/2006 Document Revised: 07/07/2019 Document Reviewed: 09/16/2017 [employer] Patient Education 2020 [employer] 04/16/2022 14:44:17 Calorie Counting for Weight [...] 08/12/2006 Document Revised: 05/01/2019 Document Reviewed: 07/12/2017 Elsevier Patient Education 2020 [employer] Follow Up Care 10/16/2021 15:00:57 With:JAYDON COE, Reno Maciel, URL Address: [address] [place] [address] [place] [address]- Business (1) When:Within 1 Year(s) [facility] 02-11-2021 NotePatient Outreach (COVAMN) KYLER RICHARD ([id number]) 1940 M Date Time Provider Department 10/06/20 WEATHERS, JOLYNN WHITFIELD During your visit today, we recorded the following information about you: Allergies As of Date: 10/06/2020 (No Known Allergies) Date Reviewed: 11/27/2018 Reviewed by: Huyen Barraza - Fully Assessed Order(s):SARS-COVID VACCINE 1ST DOSE APPT [[id number]] Order #: [id number] FUTURE Prescriptions as of 10/06/2020 Sig: [id number] [...] Text Encounter Status:Closed by NIDIA VOGEL on 10/10/20[facility] Evaluation + Plan note Future Appointments Appointment Date:04/19/2023 09:30:00 AM Scheduled Provider:Reno VALENTIN MD Location:[facility] Appointment Type:URO Office Visit [facility] [place] evaluation + Plan note Future Appointments Appointment Date:01/16/2023 09:45:00 AM Scheduled Provider:Reno VALENTIN MD Location:[facility] Appointment Type:URO Office Visit Appointment Date:04/19/2023 09:30:00 AM Scheduled Provider:Reno VALENTIN MD Location:[facility] Appointment Type:URO Office Visit [facility] Evaluation + Plan note Future Appointments Appointment Date:04/14/2024 11:30:00 AM Scheduled Provider:KIM Lino APRN, [place] X Location:[facility] Appointment Type:URO Office Visit [facility] [place] History general Narrative - Reported* Type Description Date Medical History heart disease Medical History colon cancer Medical History glaucoma Surgical History open heart surgery Surgical History colon surgery Surgical History 3 hernia repairs Surgical History torn retina Surgical History cataracts Surgical History left total hip 2017 Surgical History Eye lid lift both 2020 Hospitalization History see above Hospitalization History back spasms 2022 [facility] Hospital course Narrative No data available for this section [facility] [place] [facility] Discharge instructions No data available for this section [facility] No data available for this section [facility] [place] Summary Purpose Family History No Family History Records FoundNo Family History Records FoundNo Family History Records Found No data available for this section No data available for this section No Family History Records FoundNo Family History Records Found No data available for this section No data available for this section No Family History Records Found Advance Directives No [...] section and content) DATE CREATED AUTHOR 09/19/2021 [facility] DATE CREATED AUTHOR AUTHOR'S ORGANIZ ATION 02/01/2023 [facility] DATE CREATED AUTHOR AUTHOR'S ORGANIZ ATION 12/31/2023 [facility] DATE CREATED AUTHOR AUTHOR'S ORGANIZ ATION 02/13/2024 [facility] DATE CREATED AUTHOR AUTHOR'S ORGANIZ ATION 02/14/2024 [facility] DATE CREATED AUTHOR AUTHOR'S ORGANIZ ATION 03/20/2024 [facility] Care Team (unrecognized sect ion and content) Personnel Name: Eliana Ba MD Address: [address] [place] [address] Personnel Name: Eliana Ba MD Address: Address: [address] [place] [address] Personnel Name: Eliana Ba MD Address: Address: [address] [place] [address] Personnel Name: Eliana Ba MD Address: Address: [address] [place] [address] Personnel Name: Eliana Ba MD Address: Address: [address] [place] [address] Personnel Name: Eliana Ba MD Address: Address: [address] [place] [address] REASON FOR VISIT (unrecogniz ed section and [...] BE BASED ON THE PRIMARY CLINICAL RECORDS. [facility]. provides no warranty or guarantee of the accuracy or completeness of information in this document.
== END 2024-04-06 16:10 | disposition home or self-care (01) ==
LOC: WC 16:09
PROVIDERS: PCP Family Medicine; Visit Provider Physician Assistant
DX: I87.311 Chronic venous hypertension (idiopathic) with ulcer of right lower extremity (principal); L97.818 Non-pressure chronic ulcer of other part of right lower leg with other specified severity
CPT/HCPCS: G0463

== ENCOUNTER 2024-04-07 08:41 | Day surgery (SDC) | payer MEDICARE, SELFPAY ==
--- OUTSIDE RECORDS SUMMARY | 2024-04-07 08:57 | XMS_ITS | CCD ---
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 Name Role Phone Eliana Ba Primary Care Physician [phone] GERONIMO ., KARLOS Admitting Unavailable GERONIMO ., [...] Drug Allergy Irritation (qualifier value) [facility] (5 sources) levoFLOXacin; Translations: [levofloxacin] Drug Allergy Irritation (qualifier value) [facility] Medications Current Medications Medication Drug Class(es) [...] # 20 cap(s), Refills(s) 0, Pharmacy: [facility][id number], 160, cm, 09/26/22 13:50:00 EST, Height/Length Dosing, [...] Start: 03-07-2022 take 1 capsule by [facility] twice daily tamsulosin 0.4 mg Cap 0.4 mg = 1 cap(s), Oral, BID, # 180 cap(s), Refills(s) 3, Pharmacy: [address], 160, cm, 10/16/21 14:26:00 EST, Height/Length [...] Corticosteroid Start: 03-17-2024 fluticasone Nasal 0.05 mg/inh Anthoston instill 1 spray into each nostril once [...] 09-28-2022 Episodic Other aftercare (1 source) Other residential (current) drug therapy; Translations: [OTH EGG SORTER CURRENT DRUG THERAPY] Onset: 09-20-2022 Episodic Other aftercare (1 source) detention (current) use of aspirin; Translations: [EGG SORTER CURRENT USE OF ASPIRIN] Onset: 09-20-2022 Episodic [...] 108ml Here today to follow up to [facility] ER 03/11/24 CC: Urinary Retention PVR [...] (cc): 02/11/24 - 108 Pt presented to [facility] ER 03/11/24 with UR. PVR >230 [...] visit. Follo (more content not included)... Normal [facility] Comment on above: Result Comment: [...] solution) fluticasone nasal (fluticasone Nasal 0.05 mg/inh Anthoston) hyoscyamine (hyoscyamine 0.125 mg sublingual Tab) icosapent [...] APRN, [place] Where: [facility] [place] [id number] You Need to Schedule the Following Appointments [...] fluticasone nasal (fluticasone Nasal 0.05 mg/ inh Anthoston) instill 1 spray into each nostril once [...] urinary ret (more content not included)... Normal [facility] Coding Summary.on 02-19-2024 Coding Summary. [id number]+PG hlYWQ+SR2AGBIrO31tbB NtfU6dP1TWCMfPZjtpXB IYASpVUpNljtZvCQ5reM NjZXJu IC8+LP0qAOTsLbzdyJFd c7M4sQG2V94acp6bHKvt qMM5FCVlSbLywxhin2lw pQv5PVfhYdnsGoAl FNOtxB84PJS8qF85Nj19 eMPopDEek1mafYo8ZtQg RQXyZXM9lJktTZmft6Fr FAGdG85ogXThn3F1 IGNvbGxhcHNlOyBlbXB0 nB0cKNtaqtqvc8zlnoyp Rhe0yz05lSRlj2X2kGO0 L0RatgG5WWZfcUCo HmzygFQUmA9yaiesk3sf ovasLpQoLIZdMKl1TIr8 UFRjpGayOnIgLT36IDU9 LMBthjNxJ7CjAPXa bXhoCcK7a5K4Ay8WV2WJ YvnfZ5GDOJUCSUyszCK+ CP94ci12K1IgQwnaKuw5 PNSgIUR4eTR4hE3w FAXnDVhil5B8zNH4B6Tr kgKftt0gw7cdZXUiKDvl N59zlZKxo3D5PXRwuLO7 JMJxcLgwBtPkgZ89 Oyc+OBHnbYstk6LxKazm r8vhw0ynmFf9BtncBPMv vwPbuAboCFK5c6NcFy1c KPBstJO1sAI0rH5y KfKuGgL4HOacE389HiNn wNYvSvzmV04hT9EknTD+ DXEmVhf6WAApxPejVF5j N8ZkIOUoixfgyWVr yKapIH3jIDMyrjibCVCp jL8kMLHuI4b9AzXkRpE2 YRltK0DhIHBxlgbpSb45 qW0iFfCuKwL9VEql R0UglsO4EXMiyQXdYPub HQH3K61om8L7DQSbYULf OUE5bDJ1lL7kdFuejkss bGVmdDsgdmVydGlj QTqnBKauI151SINgmTdv PkNvZGluZyBEYXRlOiAg MDYvMjYvMjAyNDwvdGQ+ UZOmUXC5dEzrYPWn dDPhBRtePx3jdRnpjPll SI6zSHKuebznXFEqzX7v SZZihJJzuGxlEA4xETTi wkpzy979CmAsJUF5 IZQynKGoX3BdrS8yXwZa OHEvOLTtJ5UsiJFuMOfs G255FLekGiP3VGHhalWo X3SvUFXboGhcDfZ7 h2P4Kh7Dg0XyootzX9Ps lWCrCwMhUpumEBp7V3Bi PjwvdHI+AI24JPQvRZ84 ZHg5OTR8rAdbMZvk XDHcD6WviI6pCiGbRYMy ZGRkOyc+PHRhYmxlIHdp ZHRoPScxMDAlJyBzdHls HZ8eWr9tDRDfPCYv aDcksIQqRhXen1skXDYd LGodHJ7vdFxuK0OdrMO0 GQBwy3p3Lb06A47lL8Pk dXA+ZPKweBA4kHT5 gG6qVyFtIsU2SJksF593 HgMzmSFzUfcqe6nsf0sp iAv7RaV7HPFjlkPmrPgd KJP4z2RxNz40W42g IHdpZHRoPSIxNSUiIHZh rJxyek5bpW1dCy4+PGNv lUC8eXX0iZ3wSnLoAzI1 ZVdaA736HtWxmYNd Hqcyd0jdf9xhpZf0UfDy ZRUaobUuwRrdAHK4f6Lu Uj70C9IwtXyog6RpJqt2 ck03wXVth9E9gUW8 W0HcGSOxmlvlxIWtmDqg SZ9wAQCydzisFNAexT7d HXMwF7w9DzPhQrQ5BCme W5StbeF9EXTdcRHi RQNuwYVVqM2nftlxf1dz pywyVxCqHVHoYFg4JHb5 IHCckMkyQhCfCNM0ThH0 LWR7tSBscH8ycGgk uyoszE3yCzp+LSE6sGHk kEVTPV1sQwmhzAJ+PHRk VKV5fSiuYLovABJcnJ1i AKXjS1j1HqDuJjW8 QOthF4LkzvP1FQDayGBt YBLelVELxI0kzpiij8zp vdskWzZvCNDxMOm6BPg1 LWFsaWduOiBsZWZ0 UsA4WQC3mJFvgV5gkUtn cqfuuF4dYjo+QmlydGgg BKQ6UFx3S8GpEfm6VGNt gXbgAM0usIIwLTrf Gd3ebHuwjMqxJF4bJFLz gnzku698AeIuu1kvUFGx fXRkWKdhGIQ6G16ln8O8 DEReWUJjQBI5uCM9 pB6cpDityjemhVPohBuj waFxcEubXMnpXCeeT275 FEXtbGurRaMyURc5D9Qk Eqn7UFZasNweZE3v bDJmLOyvTp7oqCxpsSqm JV0vKCPpujkuk298PiFa e8mqPYOnjBYgHRlkMCZ0 V53ss4Y7LGKuKHWm SUY8zZG4dR7vuDctssvp bGVmdDsgdmVydGljYWwt TGyvG599HLLrlIgkKwWo bRt2A0DsJst5PWRe oSolOG7fvDMpTHzlJm8s cFlvrXlrFL7yTLSwaczk a469BiWvg3xgBXBicXMk ZIjoTTJ5H46ts0Y7 JPSgTOWkABF5hYU0kW8a bGlnbjogbGVmdDsgdmVy vPmhLJyoWCczR270MEDf cDsnPlBhdGllbnQg LPgrIMt6U8MxVhwofXI+ SW37ILHbZL78gFNqyJMj q2vfcFq2QuIfVJEpDRR4 uBomPZuqe9JxWOWw X68ssMOts9M1ZHIelIfh qEOpCuWoxIW2rK6rMFhw lhstg7etcfplNheps0ht fh64pI81G48mSOud ZHRoPSIzMCUiIHZhbGln ux6ehN1lLz4+PGNvbCB3 rNS9fF0aYCUsRiD7MBmm E039BzYglXZcUyal b7zoj8fciHq6DpG6QOTa hrRxiZwlNFK9f3SmKj84 Y29hKCfkARUtRKMyJVJs IHMgpEgnov0hvK9q Ii8+IJZkoBZ3gWV4bM9b BnOmBhK9AXzzE313BoUm cDGbUgusU95zQ1OluTR+ QHAgInn1SMWkoHqn TP2dvIOeLKubGp7jLYY8 VgZsJgWeVAgwU9LdXHCo srrezvkhkKN6TLUyTAMk zI54Xx0enDueVOUd aFAKlX1hlrbjt2syhwpb GvSgUDLwKOy5DUg3TCCn mRpfWaMcZOU7ChH1CPG0 nQImcV3gdYrvectd pK4fE8YiEYZhyteoUp48 oI6aZrZbOdL3HTzcHge+ G2DDVG1JMOLZZ900N6Rf Oor7AMLpfTbwEG8q vURkYLqgEv2nhOghhXcd EK1cFUShjnsxHPAlmJ2t BWVcoVXezIplCY3bPZNj ufcty525NiKoNND7 BRCbsFVhB0LywJ6oAtTz NYDsBBCxT8NknZNfUOev P596KBeuKeC7ZDKzgrNs I3QcBJPswSusGqT8 u8Y9Tc3lDU8nVY8zQTXq HI90HG72iQXdn3H6sTU1 T4XuOTGasczukytxnBP4 KQQoKXXyuH06hVXm DFpmDv1yu9D9p398ECPm KOQcbJ86Hx6mnWcyRNMm aFVSpZ1gnzyly4emexbe CrYaNRLkRGe2XQb4 FYRzaEdxWkXjKAZ8VlS3 PFI3cVHgtF7dpTndvzao fI5nGlx+ODEgWWVhcnM8 F7DkMiq3OQYsyMra XZ2kyDPsZFlqOz9ulEsn cNcpRP0kPRJjkeyoYSYm tZ1fKIXxuFVjaLxxUV4y UXFfnimqp695GoTr DBE7LXLaqQObW1IujZ1z GwQaRTUcMARfE1YglBUw TVtsA863FUtpWgS6GFVm yyOzX0CeKVMpqQyi ZsU7s1C3Yj2WXVimHF29 MR25wCHrv5J4lZM0B7Wk RPWbbmkklctffAS0OFRw DMMiqK27aATlFXpv Kd3am9F1i373OAEtEXCk jI57Rv7ouJgaAXUhrZJZ bB5chhlbw4oayscaJpKu PIEpZTq8ADl2OUEt dXohCnDmNDB0HxD3WLH6 bUPipI4oaClxvadajZ1m Oyc+YEHpQLNbv7Aec1Mb TK45AF62L0SxMbke dGFibGU+PHRhYmxlIHdp ZHRoPScxMDAlJyBzdHls DX2xPf8mVYAxLYSxnNbk lTKmJfPtp4qgJVVh PAlkSS3amHswK2OzzNP5 PGBdi8f6Rp53C26bH2Io dXA+SLFgbFI0lCS7xR0v KiEgUiY3OKqmJ425 QjVqgPWuDbnvy4aee2kx cQr7AyBrCCNxpkGusFlj YVG9x7TzNi16G92oIRly ZHRoPSIyMCUiIHZh cFoovs7igI7nGp9+PGNv jNQ8sBF8fY8zWaWmRsS5 KGalY173RcVjyMIlMane K52sM8GfkBW+PHRy Dvx2URYzwGjaUD3tvLVj VUmzGq2oFMP6PjUsCpIr RIbfI7ArILNibfvrfius xSX5VIGpQRVyrQ05 Ni9dnNyzEa7pEFPjZDT6 WQZklBKvB5AmjJ0vIvNc XOCaNKKaL8MdaLAoMLut N900YWxyDqZ8XKGs evYqQ9ZyQMHjnIgbBfG1 q8A5Du8DyQbtiUXuVP9u NdFcFTv0K6PiLdu0OALy qDkhNO3rrJPqHUnx On2uoDzlvCwmYX1xAOJm tyxei267MmIyj7vuBEXg nRViUQlxYYN2F23et0Q0 EEEnAMJrGVK3tJU9 fV3iaIkhyhnnrRYwlAxm ocDnfChlEMdrEUeaV828 LDSiqVumNqSDSar8J6Tx Jth5CKNgjXtkLV6w dCZsCAurAx3luRbuaAui SO6jGMVepfzlb070YrMl y6xoIKPxgQIjGKeyIZR2 G64wv2K0CPOxPNLe WTL9xYY4xP0euWkgccht bGVmdDsgdmVydGljYWwt KKoyL524IBBrqAzkYj2O Dra3F2YhKxt3WWSb wBymAM4hkDHeIXxpEu7a rZzhsGkmSV6fRJVovoqy a474TvEgw1atUZYpxVJm BOtdVCB1X37ux2G5 LDYnQWMtSEZ8yKN7iM5u bGlnbjogbGVmdDsgdmVy uNcySKeyNCdtV810KFSq cDsnPlBheWVyOjwv dGQ+FB47lh46M4AsYdzn Ith1QKXwATZ7iXI3lK6e ITNoCLfjx8X1kEU3M0Lf omEehs6sk2zmEYTu RWibE14atVUpx (more content not included)... [facility] C Urineon 02-13-2024 Bacteria identified [...] Locations R1: This test was performed at: [facility], [address] [place] [address], [id number] , [place], [facility] Comment on above: Performed By: #### 2 [id number] #### [facility] [address] [place] [id number] Screenson 02-12-2024 Screens [id number] [facility] Ambulatory Visit Summaryon 0 02-11-2024 [...] Where: [facility] [address], [place] [address] [id number] Medications What How Much When Instructions Unchanged [...] for choosing us for your care. Normal [facility] Patient Educationon 02-11-20 Patient Education [...] these instructions at home: Medicines ? Take tlwd-bvl-vifvqcj and prescription medicines only as told by [...] the blood stops without treatment. ? Take kawg-mav-torspfx and prescription medicines only as told by your health care provider. ? Drink enough fluid to keep your urine pale yellow. This information is not intended to replace advice given to you by your health care provider. Make sure you discuss any questions you have with your health care provider. Document Revised: 04/12/2021 Document Reviewed: 04/12/2021 [employer] Patient Education ? 2022 [employer] Benign Prostatic Hyperplasia Benign prostatic hyperplasia [...] the nig (more content not included)... Normal [facility] Urology Office/Clinic Noteon 02-11-2024 Urology [...] with voice recognition artificial intelligence software, specifically [employer], [employer] and or [employer]. Substitutions may have occurred due to the [...] Urnls Dip Stick Auto w/o Microscopy POC 43037 2. 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 Normal [facility] Comment on above: Result Comment: Elec tronically Signed By: KIM Lino APRN, [place] X\.br\Date and Time Signed: 02/11/24 10:41 EDT COVID/FLU RT-PCRon 3 SARS-CoV-2 (COVID-19) RNA TERRIE+probe Ql (Unsp spec) Positive [employer] Other COVID/FLU RT-PCR Negative TIME PLUS Q Other XR KNEE RT 3Von 01-23-2023 XR KNEE RT 3V EXAM: XR KNEE RT 3V HISTORY: Osteoarthritis of knee COMPARISON: None TECHNIQUE: 3 views FINDINGS: No acute fracture or dislocation. Moderate to severe degenerative changes. Unremarkable soft tissues. IMPRESSION: Moderate to severe degenerative changes. Electronically authenticated by: CALVIN BARNES Date: 2023-01-23 13:[address] [facility] INSULINon 09-25-2022 Insulin 6.0 uIU/mL Normal 2.6-24.[address] [facility] Comment on above: Performed By: #### I NSULIN #### [facility] [address] [place] [address] Dr. Wally Zapien BNPon 09-24-2022 Natriuretic peptide B (Bld) [Mass/Vol] 110.0 pg/mL Normal <=1,800.0 [facility] Comment on above: Performed By: #### U RCX #### [facility] [address] [place] [address] Dr. Wally Zapien CBC AUTO DIFFon 09-24-2022 BASO # 0.0 103/ul Normal 0.0-0.1 [facility] Comment on above: Performed By: #### C BC #### [facility] [address] [place] [address] Dr. Wally Zapien Basophils/100 WBC (Bld) 1.0 % Normal 0.2-2.0 [facility] Comment on above: Performed By: #### C BC #### [facility] [address] [place] [address] Dr. Wally Zapien EO # 0.2 103/ul Normal 0.0-0.7 [facility] Comment on above: Performed By: #### C BC #### [facility] [address] [place] [address] Dr. Wally Zapien Eosinophils/100 WBC (Bld) 4.2 % Normal 0.9-7.[address] [facility] Comment on above: Performed By: #### C BC #### [facility] [address] [place] [address] Dr. Wally Zapien Erythrocyte distribution width (RBC) [Ratio] 12.5 % Normal 11.0-15.[address] [facility] Comment on above: Performed By: #### C BC #### [facility] [address] [place] [address] Dr. Wally Zapien Hematocrit (Bld) [Volume fraction] 43.7 % Normal 42.0-54.0 [facility] Comment on above: Performed By: #### C BC #### [facility] [address] [place] [address] Dr. Wally Zapien Hemoglobin (Bld) [Mass/Vol] 15.4 g/dL Normal 14.0-18.0 [facility] Comment on above: Performed By: #### C BC #### [facility] [address] [place] [address] Dr. Wally Zapien IG # 0.02 10e3/ul Normal 0.00-0.03 [facility] Comment on above: Performed By: #### C BC #### [facility] [address] [place] [address] Dr. Wally Zapien IG % 0.5 % Normal 0.0-0.5 [facility] Comment on above: Performed By: #### C BC #### [facility] [address] [place] [address] Dr. Wally Zapien LYMPH # 1.7 103/ul Normal 1.2-3.8 [facility] Comment on above: Performed By: #### C BC #### [facility] [address] [place] [address] Dr. Wally Zapien Lymphocytes/100 WBC (Bld) 42.6 % Normal 20.5-60.0 [facility] Comment on above: Performed By: #### C BC #### [facility] [address] [place] [address] Dr. Wally Zapien MANUAL DIFF REQ NO Normal [facility] Comment on above: Performed By: #### C BC #### [facility] [address] [place] [address] Dr. Wally Zapien MCH (RBC) [Entitic mass] 31.6 pg Normal 25.9-34.[address] [facility] Comment on above: Performed By: #### C BC #### [facility] [address] [place] [address] Dr. Wally Zapien MCHC (RBC) [Mass/Vol] 35.2 g/dL Normal 29.9-35.[address] [facility] Comment on above: Performed By: #### C BC #### [facility] [address] [address] [address] Wally Zapien MCV (RBC) [Entitic vol] 89.5 fL Normal 80.0-94.0 [facility] Comment on above: Performed By: #### C BC #### [facility] [address] [address] [address] Wally Zapien MONO # 0.4 103/ul Normal 0.3-0.[address] [facility] Comment on above: Performed By: #### C BC #### [facility] [address] [address] [address] Wally Zapien Monocytes/100 WBC (Bld) 9.2 % Normal 1.7-12.0 [facility] Comment on above: Performed By: #### C BC #### [facility] [address] [place] [address] Dr. Wally Zapien NEUT # 1.7 103/ul Normal 1.4-6.5 [facility] Comment on above: Performed By: #### C BC #### [facility] [address] [place] [address] Dr. Wally Zapien Neutrophils/100 WBC (Bld) 42.5 % Critically low 43.0-75.0 [facility] Comment on above: Performed By: #### C BC #### [facility] [address] [place] [address] Dr. Wally Zapien Platelet mean volume (Bld) [Entitic vol] 9.9 fL Normal 9.5-13.[address] [facility] Comment on above: Performed By: #### C BC #### [facility] [address] [place] [address] Dr. Wally Zapien PLT 149 103/ul Critically low 150-450 [facility] Comment on above: Performed By: #### C BC #### [facility] [address] [address] [address] Wally Zapien RBC 4.88 106/ul Normal 4.70-6.[address] [facility] Comment on above: Performed By: #### C BC #### [facility] [address] [place] [address] Dr. Wally Zapien WBC 4.0 103/ul Normal 4.0-11.0 [facility] Comment on above: Performed By: #### C BC #### [facility] [address] [place] [address] Dr. Wlaly Zapien CULTURE URINEon 09-24-2022 CULTURE URINE Culture Observations: LIGHT GROWTH OF MIXED SKIN GENNA. NO POTENTIAL PATHOGENS SEEN. Normal [facility] Comment on above: Performed By: #### U RCX #### [facility] [address] [place] [address] Dr. Wally Zapien FREE THYROXINE INDEX T7on FTI 2.52 Normal 1.30-4.50 [facility] Comment on above: Performed By: #### U RCX #### [facility] [address] [place] [address] Dr. Wally Zapien T3U 36.0 % Normal 33.0-40.0 [facility] Comment on above: Performed By: #### U RCX #### [facility] [address] [place] [address] Dr. Wally Zapien T4 [Mass/Vol] 7.00 ug/dL Normal 4.50-12.10 [facility] Comment on above: Performed By: #### U RCX #### [facility] [address] [place] [address] Dr. Wally Zapien GLYCOHEMOGLOBIN A1Con 2022 ADA RECOMMENDATION SEE BELOW Normal [facility] Comment on above: Result Comment: ADA RECOMMENDED LIMIT 4.0 - 6.0 ADA THERAPEUTIC TARGET < 7.0 ACTION SUGGESTED > 7.0 Performed By: #### A 1C #### [facility] [address] [place] [address] Dr. Wally Zapien Glucose [Mass/Vol] 123 mg/dL Normal [facility] Comment on above: Performed By: #### A 1C #### [facility] [address] [place] [address] Dr. Wally Zapien HbA1c (Bld) [Mass fraction] 5.9 % Normal 4.5-6.2 [facility] Comment on above: Performed By: #### A 1C #### [facility] [address] [address] [address] Wally Zapien LIPID PROFILEon 09-24-2022 CHOL-HDL RATIO NORM SEE BELOW Normal [facility] Comment on above: Result Comment: 3.3 - 4.4 LOW RISK 4.4 - 7.1 AVERAGE RISK 7.1 - 11.0 MODERATE RISK >11.0 HIGH RISK Performed By: #### U RCX #### [facility] [address] [address] [address] Wally Zapien Cholesterol [Mass/Vol] 117 mg/dL Normal <=200 [facility] Comment on above: Performed By: #### U RCX #### [facility] [address] [address] [address] Wally Zapien Cholesterol in HDL [Mass/Vol] 38 mg/dL Critically low 40-60 [facility] Comment on above: Performed By: #### U RCX #### [facility] [address] [address] [address] Wally Zapien Cholesterol in LDL [Mass/Vol] 32.6 mg/dL Normal [facility] Comment on above: Performed By: #### U RCX #### [facility] [address] [address] [address] Wally Zapien Cholesterol.total/Ch olesterol in HDL [Mass ratio] 3.1 {ratio} Normal [facility] Comment on above: Performed By: #### U RCX #### [facility] [address] [address] [address] Wally Zapien HDL NORMAL > or = 60 mg/dl - LOW CARDIOVASCULAR RISK <40 mg/dl - HIGH CARDIOVASCULAR RISK Normal [facility] Comment on above: Performed By: #### U RCX #### [facility] [address] [address] [address] Wally Zapien LDL CALC NORMAL SEE BELOW Normal [facility] Comment on above: Result Comment: <100 mg/dl OPTIMAL 100 - 129 mg/dl NEAR OR ABOVE OPTIMAL 130 - 159 mg/dl BORDERLINE HIGH 160 - 189 mg/dl HIGH >190 mg/dl VERY HIGH Performed By: #### U RCX #### [facility] [address] [address] [address] Wally Zapien Triglyceride [Mass/Vol] 232 mg/dL Critically high <=150 [facility] Comment on above: Performed By: #### U RCX #### [facility] [address] [place] [address] Dr. Wally Zapien VLDL CALC 46.4 mg/dL Normal [facility] Comment on above: Performed By: #### U RCX #### [facility] [address] [address] [address] Wally Zapien PROF 14(COMP METB)on 023 Albumin [Mass/Vol] 3.8 g/dL Normal 3.4-5.0 [facility] Comment on above: Performed By: #### B CUSTOMER SERVICES MANAGER, T7, LIPID, TSH, CMP, URIC #### [facility] [address] [place] [address] Dr. Wally Zapien Albumin/Globulin [Mass ratio] 1.2 {ratio} Normal [facility] Comment on above: Performed By: #### B CUSTOMER SERVICES MANAGER, T7, LIPID, TSH, CMP, URIC #### [facility] [address] [place] [address] Dr. Wally Zapien ALP [Catalytic activity/Vol] 80 U/L Normal 46-116 [facility] Comment on above: Performed By: #### B CUSTOMER SERVICES MANAGER, T7, LIPID, TSH, CMP, URIC #### [facility] [address] [place] [address] Dr. Wally Zapien ALT [Catalytic activity/Vol] 34 U/L Normal 16-63 [facility] Comment on above: Performed By: #### B CUSTOMER SERVICES MANAGER, T7, LIPID, TSH, CMP, URIC #### [facility] [address] [place] [address] Dr. Wally Zapien Anion gap [Moles/Vol] 11.3 mmol/L Normal [facility] Comment on above: Performed By: #### B CUSTOMER SERVICES MANAGER, T7, LIPID, TSH, CMP, URIC #### [facility] [address] [place] [address] Dr. Wally Zapien AST [Catalytic activity/Vol] 24 U/L Normal 15-[address] [facility] Comment on above: Performed By: #### B CUSTOMER SERVICES MANAGER, T7, LIPID, TSH, CMP, URIC #### [facility] [address] [place] [address] Dr. Wally Zapien Bilirubin [Mass/Vol] 1.0 mg/dL Normal 0.2-1.[address] [facility] Comment on above: Performed By: #### B CUSTOMER SERVICES MANAGER, T7, LIPID, TSH, CMP, URIC #### [facility] [address] [place] [address] Dr. Wally Zapien Calcium [Mass/Vol] 8.5 mg/dL Normal 8.5-10.1 [facility] Comment on above: Performed By: #### B CUSTOMER SERVICES MANAGER, T7, LIPID, TSH, CMP, URIC #### [facility] [address] [place] [address] Dr. Wally Zapien Chloride [Moles/Vol] 105 mmol/L Normal 98-[address] [facility] Comment on above: Performed By: #### B CUSTOMER SERVICES MANAGER, T7, LIPID, TSH, CMP, URIC #### [facility] [address] [place] [address] Dr. Wally Zapien CO2 [Moles/Vol] 28.6 mmol/L Normal 21.0-32.0 [facility] Comment on above: Performed By: #### B CUSTOMER SERVICES MANAGER, T7, LIPID, TSH, CMP, URIC #### [facility] [address] [place] [address] Dr. Wally Zapien Creatinine [Mass/Vol] 0.74 mg/dL Normal 0.70-1.[address] [facility] Comment on above: Performed By: #### B CUSTOMER SERVICES MANAGER, T7, LIPID, TSH, CMP, URIC #### [facility] [address] [place] [address] Dr. Wally Zapien EGFR-AF JAP[place]ESE >60 Normal >=60 [facility] Comment on above: Performed By: #### B CUSTOMER SERVICES MANAGER, T7, LIPID, TSH, CMP, URIC #### [facility] [address] [place] [address] Dr. Wally Zapien EGFR-NON AF JAPANESE >60 Normal >=[address] [facility] Comment on above: Performed By: #### B CUSTOMER SERVICES MANAGER, T7, LIPID, TSH, CMP, URIC #### [facility] [address] [address] [address] Wally Zapien Globulin (S) [Mass/Vol] 3.2 g/dL Normal [facility] Comment on above: Performed By: #### B CUSTOMER SERVICES MANAGER, T7, LIPID, TSH, CMP, URIC #### [facility] [address] [place] [address] Dr. Wally Zapien Glucose [Mass/Vol] 102 mg/dL Normal 74-106 [facility] Comment on above: Performed By: #### B CUSTOMER SERVICES MANAGER, T7, LIPID, TSH, CMP, URIC #### [facility] [address] [place] [address] Dr. Wally Zapien Potassium [Moles/Vol] 3.9 mmol/L Normal 3.5-5.[address] [facility] Comment on above: Performed By: #### B CUSTOMER SERVICES MANAGER, T7, LIPID, TSH, CMP, URIC #### [facility] [address] [place] [address] Dr. Wally Zapien Protein [Mass/Vol] 7.0 g/dL Normal 6.4-8.2 [facility] Comment on above: Performed By: #### B CUSTOMER SERVICES MANAGER, T7, LIPID, TSH, CMP, URIC #### [facility] [address] [place] [address] Dr. Wally Zapien Sodium [Moles/Vol] 141 mmol/L Normal 136-145 [facility] Comment on above: Performed By: #### B CUSTOMER SERVICES MANAGER, T7, LIPID, TSH, CMP, URIC #### [facility] [address] [address] [address] Wally Zapien Urea nitrogen [Mass/Vol] 19.0 mg/dL Critically high 7.0-18.0 [facility] Comment on above: Performed By: #### B CUSTOMER SERVICES MANAGER, T7, LIPID, TSH, CMP, URIC #### [facility] [address] [place] [address] Dr. Wally Zapien Urea nitrogen/Creatinine [Mass ratio] 25.7 mg/mg Normal [facility] Comment on above: Performed By: #### B CUSTOMER SERVICES MANAGER, T7, LIPID, TSH, CMP, URIC #### [facility] [address] [place] [address] Dr. Wally Zapien TSHon 09-24-2022 TSH 1.535 uIU/mL Normal 0.358-3.740 [facility] Comment on above: Performed By: #### U RCX #### [facility] [address] [place] [address] Dr. Wally Zapine UA RANDOM W/MICROSCOPICon BACTERIA NONE SEEN Normal NONE SEEN [facility] Comment on above: Performed By: #### U RCX #### [facility] [address] [place] [address] Dr. Wally Zapien Bilirubin Ql (U) Negative Normal NEGATIVE [facility] Comment on above: Performed By: #### U RCX #### [facility] [address] [place] [address] Dr. Wlaly Zapien CAST NONE SEEN Normal NONE SEEN [facility] Comment on above: Performed By: #### U RCX #### [facility] [address] [place] [address] Dr. Wally Zapien Clarity (U) CLEAR Normal CLEAR [facility] Comment on above: Performed By: #### U RCX #### [facility] [address] [place] [address] Dr. Wally Zapien Color (U) YELLOW Normal YELLOW [facility] Comment on above: Performed By: #### U RCX #### [facility] [address] [place] [address] Dr. Wally Zapien Crystals LM Nom (Urine sed) NONE SEEN Normal NONE SEEN [facility] Comment on above: Performed By: #### U RCX #### [facility] [address] [place] [address] Dr. Wally Zapien Epithelial cells LM Ql (Urine sed) FEW Abnormal NONE SEEN /RARE [facility] Comment on above: Performed By: #### U RCX #### [facility] [address] [address] [address] Wally Zapien Glucose Ql (U) Negative Normal NEGATIVE [facility] Comment on above: Performed By: #### U RCX #### [facility] [address] [address] [address] Wally Zapien Hemoglobin Ql (U) TRACE-INTACT Abnormal NEGATIVE [facility] Comment on above: Performed By: #### U RCX #### [facility] [address] [address] [address] Wally Zapien Ketones Ql (U) Negative Normal NEGATIVE [facility] Comment on above: Performed By: #### U RCX #### [facility] [address] [place] [address] Dr. Wally Zapien LEUKOCYTES Negative Normal NEGATIVE [facility] Comment on above: Performed By: #### U RCX #### [facility] [address] [place] [address] Dr. Wally Zapien MUCOUS LARGE Abnormal NONE SEEN [facility] Comment on above: Performed By: #### U RCX #### [facility] [address] [place] [address] Dr. Wally Zapien Nitrite Ql (U) Negative Normal NEGATIVE [facility] Comment on above: Performed By: #### U RCX #### [facility] [address] [place] [address] Dr. Wally Zapien pH (U) 6.5 [pH] Normal 5-[address] [facility] Comment on above: Performed By: #### U RCX #### [facility] [address] [place] [address] Dr. Wally Zapien RBC 2-5 Abnormal 0-2 [facility] Comment on above: Performed By: #### U RCX #### [facility] [address] [place] [address] Dr. Wally Zapien SPEC GRAVITY 1.025 Normal 1.005-<=1.025 [facility] Comment on above: Performed By: #### U RCX #### [facility] [address] [place] [address] Dr. Wally Zapien UA PROTEIN TRACE Normal NEGATIVE/ TRACE [facility] Comment on above: Performed By: #### U RCX #### [facility] [address] [place] [address] Dr. Wally Zapien Urobilinogen Qn (U) 1.0 {Suma'U}/dL Normal 0.2 - 1. 0 [facility] Comment on above: Performed By: #### U RCX #### [facility] [address] [place] [address] Dr. Wally Zapien WBC 0-2 Abnormal NONE SEEN [facility] Comment on above: Performed By: #### U RCX #### [facility] [address] [place] [address] Dr. Wally Zapien URIC ACID SERUMon 09-24-2022 Urate [Mass/Vol] 3.7 mg/dL Normal 3.5-7.2 [facility] Comment on above: Performed By: #### B CUSTOMER SERVICES MANAGER, T7, LIPID, TSH, CMP, URIC #### [facility] [address] [place] [address] Dr. Wally Zapien VITAMIN D 25 OHon 09-24-2022 VIT D 25-OH 42.6 ng/mL Normal [facility] Comment on above: Performed By: #### U RCX #### [facility] [address] [place] [address] Dr. Wally Zapien VIT D RANGES SEE BELOW Normal [facility] Comment on above: Result Comment: <20 ng/mL Vit D deficient 20 - <30 ng/mL Vit D insufficient 30 - 100 ng/mL Vit D sufficient >100 ng/mL Potential Toxicity Performed By: #### U RCX #### [facility] [address] [place] [address] Dr. Wally Zapien CBC AUTO DIFFon 09-18-2022 BASO # 0.0 103/ul Normal 0.0-0.1 [facility] Comment on above: Performed By: #### C BC #### [facility] [address] [place] [address] Dr. Wally Zapien Basophils/100 WBC (Bld) 0.7 % Normal 0.2-2.0 [facility] Comment on above: Performed By: #### C BC #### [facility] [address] [place] [address] Dr. Wally Zapien EO # 0.1 103/ul Normal 0.0-0.7 [facility] Comment on above: Performed By: #### C BC #### [facility] [address] [place] [address] Dr. Wally Zapien Eosinophils/100 WBC (Bld) 2.8 % Normal 0.9-7.0 [facility] Comment on above: Performed By: #### C BC #### [facility] [address] [place] [address] Dr. Wally Zapien Erythrocyte distribution width (RBC) [Ratio] 12.7 % Normal 11.0-15.0 [facility] Comment on above: Performed By: #### C BC #### [facility] [address] [place] [address] Dr. Wally Zapien Hematocrit (Bld) [Volume fraction] 44.1 % Normal 42.0-54.0 [facility] Comment on above: Performed By: #### C BC #### [facility] [address] [place] [address] Dr. Wally Zapien Hemoglobin (Bld) [Mass/Vol] 15.3 g/dL Normal 14.0-18.0 [facility] Comment on above: Performed By: #### C BC #### [facility] [address] [place] [address] Dr. Wally Zapien IG # 0.01 10e3/ul Normal 0.00-0.03 [facility] Comment on above: Performed By: #### C BC #### [facility] [address] [place] [address] Dr. Wally Zapien IG % 0.2 % Normal 0.0-0.5 [facility] Comment on above: Performed By: #### C BC #### [facility] [address] [place] [address] Dr. Wally Zapien LYMPH # 1.8 103/ul Normal 1.2-3.[address] [facility] Comment on above: Performed By: #### C BC #### [facility] [address] [place] [address] Dr. Wally Zapien Lymphocytes/100 WBC (Bld) 43.0 % Normal 20.5-60.0 [facility] Comment on above: Performed By: #### C BC #### [facility] [address] [place] [address] Dr. Wally Zapien MANUAL DIFF REQ NO Normal [facility] Comment on above: Performed By: #### C BC #### [facility] [address] [place] [address] Dr. Wally Zapien MCH (RBC) [Entitic mass] 32.1 pg Normal 25.9-34.0 [facility] Comment on above: Performed By: #### C BC #### [facility] [address] [place] [address] Dr. Wally Zapien MCHC (RBC) [Mass/Vol] 34.7 g/dL Normal 29.9-35.2 [facility] Comment on above: Performed By: #### C BC #### [facility] [address] [place] [address] Dr. Wally Zapien MCV (RBC) [Entitic vol] 92.5 fL Normal 80.0-94.0 [facility] Comment on above: Performed By: #### C BC #### [facility] [address] [place] [address] Dr. Wally Zapien MONO # 0.4 103/ul Normal 0.3-0.[address] [facility] Comment on above: Performed By: #### C BC #### [facility] [address] [place] [address] Dr. Wally Zapien Monocytes/100 WBC (Bld) 9.2 % Normal 1.7-12.[address] [facility] Comment on above: Performed By: #### C BC #### [facility] [address] [place] [address] Dr. Wally Zapien NEUT # 1.9 103/ul Normal 1.4-6.[address] [facility] Comment on above: Performed By: #### C BC #### [facility] [address] [address] [address] Wally Zapien Neutrophils/100 WBC (Bld) 44.1 % Normal 43.0-75.0 [facility] Comment on above: Performed By: #### C BC #### [facility] [address] [address] [address] Wally Zapien Platelet mean volume (Bld) [Entitic vol] 10.4 fL Normal 9.5-13.[address] [facility] Comment on above: Performed By: #### C BC #### [facility] [address] [address] [address] Wally Zapien PLT 152 103/ul Normal 150-[address] [facility] Comment on above: Performed By: #### C BC #### [facility] [address] [place] [address] Dr. Wally Zapien RBC 4.77 106/ul Normal 4.70-6.[address] [facility] Comment on above: Performed By: #### C BC #### [facility] [address] [place] [address] Dr. Wally Zapien WBC 4.2 103/ul Normal 4.0-11.[address] [facility] Comment on above: Performed By: #### C BC #### [facility] [address] [place] [address] ABD/PELVIS WO CONon [...] LOPEZ Date: 2022-09-18 13:[address] [facility] ER URINE PROFILEon 3 Bilirubin Ql (U) SMALL Abnormal NEGATIVE [facility] Comment on above: Performed By: #### Olinda WILLIS UMICRO #### [facility] [address] [place] [address] Dr. Wally Zapien Clarity (U) SL CLOUDY Abnormal CLEAR [facility] Comment on above: Performed By: #### Olinda WILLIS UMICRO #### [facility] [address] [address] [address] Wally Zapien Color (U) RED Abnormal YELLOW [facility] Comment on above: Performed By: #### Olinda WILLIS UMICRO #### [facility] [address] [address] [address] Wally Zapien ERUAHD A micrscopic examination will be performed if indicated. Normal [facility] Comment on above: Performed By: #### Olinda WILLIS UMICRO #### [facility] [address] [address] [address] Wally Zapien Glucose Ql (U) Negative Normal NEGATIVE [facility] Comment on above: Performed By: #### Olinda WILLIS UMICRO #### [facility] [address] [place] [address] Dr. Wally Zapien Hemoglobin Ql (U) LARGE Abnormal NEGATIVE [facility] Comment on above: Performed By: #### BIMAL PADRONRO #### [facility] [address] [place] [address] Dr. Wally Zapien Ketones Ql (U) TRACE Abnormal NEGATIVE [facility] Comment on above: Performed By: #### BIMAL PADRONRO #### [facility] [address] [place] [address] Dr. Wally Zapien LEUKOCYTES TRACE Abnormal NEGATIVE [facility] Comment on above: Performed By: #### BIMAL PADRONRO #### [facility] [address] [place] [address] Dr. Wally Zapien Nitrite Ql (U) Positive Abnormal NEGATIVE [facility] Comment on above: Performed By: #### BIMAL PADRONRO #### [facility] [address] [place] [address] Dr. Wally Zapien pH (U) 5.5 [pH] Normal 5-9 [facility] Comment on above: Performed By: #### BIMAL PADRONRO #### [facility] [address] [place] [address] Dr. Wally Zapien Protein (U) [Mass/Vol] 100 mg/dL Abnormal NEGATIVE/ TRACE [facility] Comment on above: Performed By: #### BIMAL PADRONRO #### [facility] [address] [place] [address] Dr. Wally Zapien SPEC GRAVITY 1.025 Normal 1.005-<=1.025 [facility] Comment on above: Performed By: #### BIMAL PADRONRO #### [facility] [address] [place] [address] Dr. Wally Zapien UR MICRO IND INDICATED Normal [facility] Comment on above: Performed By: #### BIMAL PADRONRO #### [facility] [address] [place] [address] Dr. Wally Zapien Urobilinogen Qn (U) 1.0 {Suma'U}/dL Normal 0.2 - 1. 0 [facility] Comment on above: Performed By: #### E KERRI WILLIS #### [facility] [address] [place] [address] Dr. Wally Zapien PROF CHEM 8 (BAS METB)on Anion gap [Moles/Vol] 10.5 mmol/L Normal [facility] Comment on above: Performed By: #### U RCX #### [facility] [address] [place] [address] Dr. Wally Zapien Calcium [Mass/Vol] 8.6 mg/dL Normal 8.5-10.1 [facility] Comment on above: Performed By: #### U RCX #### [facility] [address] [place] [address] Dr. Wally Zapien Chloride [Moles/Vol] 105 mmol/L Normal 98-107 [facility] Comment on above: Performed By: #### U RCX #### [facility] [address] [place] [address] Dr. Wally Zapien CO2 [Moles/Vol] 28.8 mmol/L Normal 21.0-32.0 [facility] Comment on above: Performed By: #### U RCX #### [facility] [address] [place] [address] Dr. Wally Zapien Creatinine [Mass/Vol] 0.85 mg/dL Normal 0.70-1.30 [facility] Comment on above: Performed By: #### U RCX #### [facility] [address] [place] [address] Dr. Wally Zapien EGFR-AF JAPANESE >60 Normal >=60 [facility] Comment on above: Performed By: #### U RCX #### [facility] [address] [place] [address] Dr. Wally Zapien EGFR-NON AF JAPANESE >60 Normal >=60 [facility] Comment on above: Performed By: #### U RCX #### [facility] [address] [place] [address] Dr. Wally Zapien Glucose [Mass/Vol] 112 mg/dL Critically high 74-106 [facility] Comment on above: Performed By: #### U RCX #### [facility] [address] [place] [address] Dr. Wally Zapien Potassium [Moles/Vol] 4.3 mmol/L Normal 3.5-5.1 [facility] Comment on above: Performed By: #### U RCX #### [facility] [address] [place] [address] Dr. Wally Zapien Sodium [Moles/Vol] 140 mmol/L Normal 136-145 [facility] Comment on above: Performed By: #### U RCX #### [facility] [address] [place] [address] Dr. Wally Zapien Urea nitrogen [Mass/Vol] 23.0 mg/dL Critically high 7.0-18.0 [facility] Comment on above: Performed By: #### U RCX #### [facility] [address] [place] [address] Dr. Wally Zapien Urea nitrogen/Creatinine [Mass ratio] 27.1 mg/mg Normal [facility] Comment on above: Performed By: #### U RCX #### [facility] [address] [place] [address] Dr. Wally Zapien URINE MICROSCOPIC ONLYon BACTERIA TRACE Abnormal NONE SEEN [facility] Comment on above: Performed By: #### E RUR UMICRO #### [facility] [address] [place] [address] Dr. Wally Zapien Bacteria identified Cx Nom (U) NOT INDICATED Normal [facility] Comment on above: Performed By: #### E RUR, UMICRO #### [facility] [address] [place] [address] Dr. Wally Zapien CAST NONE SEEN Normal NONE SEEN [facility] Comment on above: Performed By: #### E RUR, UMICRO #### [facility] [address] [place] [address] Dr. Wally Zapien Crystals LM Nom (Urine sed) NONE SEEN Normal NONE SEEN [facility] Comment on above: Performed By: #### E RUR, UMICRO #### [facility] [address] [address] [address] Wally Zapien Epithelial cells LM Ql (Urine sed) RARE Normal NONE SEEN /RARE [facility] Comment on above: Performed By: #### E RUR, UMICRO #### [facility] [address] [address] [address] Wally Zapien MUCOUS NONE SEEN Normal NONE SEEN [facility] Comment on above: Performed By: #### E RUR, UMICRO #### [facility] [address] [address] [address] Wally Zapien RBC (U) [#/Vol] /uL Abnormal 0-2 [facility] Comment on above: Performed By: #### E RUR, UMICRO #### [facility] [address] [address] [address] Wally Zapien WBC 2-5 Abnormal NONE SEEN [facility] Comment on above: Performed By: #### E RUR, UMICRO #### [facility] [address] [address] [address] Wally Zapien Vital Signs Date Time Vital Sign Value Performing Clinician Facility 03-17-2024 14:58-0400 Blood Pressure Location [employer] [facility] 03-17-2024 14:58-0400 Diastolic blood pressure 77 mm[Hg] [employer] [facility] 03-17-2024 14:58-0400 Heart rate 80 /min Lazara [employer]r [facility] 03-17-2024 14:58-0400 Respiratory rate 16 /min [employer] [facility] 03-17-2024 14:58-0400 Systolic blood pressure 132 mm[Hg] [employer] [facility] 02-11-2024 09:59-0400 Blood Pressure Location Lazara Orzech [facility] 02-11-2024 09:59-0400 Diastolic blood pressure 84 mm[Hg] Lazara Orzech [facility] 02-11-2024 09:59-0400 Heart rate 71 /min Lazara Orzech [facility] 02-11-2024 09:59-0400 Systolic blood pressure 138 mm[Hg] Lazara Orzech [facility] 07-17-2023 15:40-0500 Body height 160.02 cm Rocio Chan Other [employer] Other 07-17-2023 15:40-0500 Body mass index (BMI) [Ratio] 37.55 kg/m2 Rocio Rocio Other [employer] Other 07-17-2023 15:40-0500 Body temperature 98.2 [degF] Rocio Rocio Other [employer] Other 07-17-2023 15:40-0500 Body weight 96.16 kg Rocio Rocio Other [employer] Other 07-17-2023 15:40-0500 Diastolic blood pressure 76 mm[Hg] Rocio Chan Other [employer] Other 07-17-2023 15:40-0500 Respiratory rate 18 /min Rociodouglas Chan Other [employer] Other 07-17-2023 15:40-0500 SaO2% (BldA) [Mass fraction] 96 % Rocio Chan Other [employer] [facility] [place] Other 07-17-2023 15:40-0500 Systolic blood pressure 134 mm[Hg] Rocio Chan Other [employer] [facility] [place] [place] Other 09-26-2022 13:26-0500 Blood Pressure Location [facility] 09-26-2022 13:26-0500 Diastolic blood pressure 74 mm[Hg] [facility] 09-26-2022 13:26-0500 Heart rate 52 /min [facility] 09-26-2022 13:26-0500 Systolic blood pressure 173 mm[Hg] [facility] [facility] 04-16-2022 13:49-0400 Diastolic blood pressure 87 mm[Hg] [place] [facility] 04-16-2022 13:49-0400 Mean blood pressure 110 mm[Hg] [place] [facility] 04-16-2022 13:49-0400 Systolic blood pressure 156 mm[Hg] [place] [facility] 04-16-2022 13:37-0400 Blood Pressure Location [place] [facility] 04-16-2022 13:37-0400 Diastolic blood pressure 102 mm[Hg] [place] [facility] 04-16-2022 13:37-0400 Heart rate 81 /min [facility] 04-16-2022 13:37-0400 Respiratory rate 16 /min [facility] 04-16-2022 13:37-0400 Systolic blood pressure 191 mm[Hg] [place] [facility] [place] Encounters Encounter Date Encounter Type Care Provider Facility Start: 03-18-2024 End: 03-18-2024 ambulatory Emily Maria Facility:[facility] Start: 03-18-2024 End: 03-18-2024 Patient encounter procedure Emily Maria [facility] [place] [employer] Start: 03-17-2024 End: 03-17-2024 ambulatory Lazara X Orzech Facility:[facility] Start: 03-17-2024 End: 03-17-2024 Patient encounter procedure Lazara X Orzech [facility] Start: 02-11-2024 End: 02-11-2024 Lab Drop off Lazara X Orzech [facility] Start: 02-11-2024 End: 02-11-2024 ambulatory Lazara X Orzech Facility:[facility] Start: 02-11-2024 End: 02-11-2024 Patient encounter procedure Lazara Echavarria Ramoalexander [facility] Start: 11-18-2023 End: 11-19-2023 ambulatory Fabrice Dias MD Facility:[facility] Start: 10-28-2023 End: 10-29-2023 ambulatory Fabrice Dias MD Facility:[facility] Start: 09-30-2023 End: 10-01-2023 ambulatory Fabrice Dias MD Facility:[facility] Start: 2023 End: 09-24-2023 ambulatory Fabrice Dias MD Facility:[facility] Start: 07-17-2023 End: 07-17-2023 ambulatory Rocio Chan Other [facility] Other Start: 07-17-2023 Office outpatient visit 15 minutes Rocio Chan [facility] Start: 05-27-2023 End: 05-28-2023 ambulatory Fabrice Dias MD Facility:[facility] Start: 01-23-[address] ELIANA BA . Facili ty:[facility] Start: 09-26-2022 End: 09-26-2022 Patient encounter procedure Reno VALENTIN [facility] Start: 09-24-2022 End: 09-25-[address] ELIANA BA . Facility:[facility] Start: 09-18-2022 End: 09-18-2022 ambulatory KARLOS MELTON . Facility:[facility] Start: 04-16-2022 End: 04-16-2022 Patient encounter procedure Reno VALENTIN [facility] Procedures Date Procedure Procedure Detail Performing Clinician Start: 09-24-2022 PSA screening KARLOS ALVAREZ . Comment on above: Performed By: #### U RCX #### [facility] [address] [place] [address] Dr. Wally Zapien Start: 03-17-2019 Cystoscope, device [...] Activity Detail Author Start: 04-14-2024 ambulatory Ambulatory Facility:[facility] Immunizations Immunization Date Immunization Notes Care Provider Guru lancaster 05-24-2022 influenza virus vacc ine, unspecified formulation Reno VALENTIN [facility] 04-20-2022 SARS-CoV-2 mRNA (ifjkaukhbhp-jysc-ycocht e) vaccine Reno VALENTIN [facility] 06-19-2021 SARS-CoV-2 (COVID-19 ) mRNA BNT-162b2 vax Reno VALENTIN [facility] 06-01-2021 influenza virus vacc ine, unspecified formulation Reno VALENTIN [facility] 05-23-2021 influenza virus vacc ine, unspecified formulation [employer] [facility] 11-10-2020 SARS-CoV-2 (COVID-19 ) mRNA BNT-162b2 vax Reno VALENTIN [facility] 10-20-2020 SARS-CoV-2 (COVID-19 ) mRNA BNT-162b2 vax [employer] [facility] 08-04-2020 zoster vaccine recombinant [employer]o [employer] [facility] 07-06-2020 SARS-CoV-2 (COVID-19 ) Ad26 vaccine, recombinant [employer] [facility] 06-24-2020 influenza virus vacc ine, unspecified formulation [employer] [facility] 06-03-2020 zoster vaccine recombinant [employer] [facility] 06-02-2020 SARS-CoV-2 (COVID-19 ) Ad26 vaccine, recombinant [employer] [facility] 05-26-2020 influenza virus vacc ine, unspecified formulation [employer] [facility] 05-29-2019 influenza virus vacc ine, unspecified formulation [employer] [facility] 06-17-2018 influenza virus vacc ine, unspecified formulation [employer] [facility] 05-14-2017 influenza virus vacc ine, unspecified formulation Reno VALENTIN [facility] 05-14-2017 pneumococcal polysaccharide vaccine, 23 valent Reno VALENTIN [facility] 05-17-2016 influenza virus vacc ine, unspecified formulation Reno VALENTIN [facility] 05-17-2016 pneumococcal conjuga te vaccine, 13 valent Reno VALENTIN [facility] 05-16-2015 influenza virus vacc ine, unspecified formulation Reno VALENTIN [facility] Payers Date Payer Category Payer Private Health Insurance 1957 Medicare [id number] 1940 Unknown [id number] 2.16.84 [id number] 1940 Unknown [id number] 2.16.84 [id number] 1940 Unknown [id number] 2.16.84 [id number] 1940 Unknown [id number] 2.16. [id number] 1940 Unknown [id number] 2.16. [id number] 1940 Unknown [id number] 2.16. [id number] 1940 Unknown [id number] 2.16. [id number] 1940 Unknown [id number] 2.16. [id number] 1940 Unknown [id number] 2.16.8 [id number] 1940 Unknown [id number] 2.16.8 [id number] 1940 Unknown [id number] 2.16.8 [id number] 1940 Unknown [id number] 2.16.8 [id number] 1940 Unknown [id number] 2.16.8 [id number] Social History Date Type Detail Facility Start: 04-16-2022 End: 03-17-2024 Tobacco smoking status Never smoked tobacco (finding) [facility] Tobacco smoking status Never [facility] Sex Assigned At Male [facility] Functional Status Date Assessment Result Facility 03-17-2024 Functional Status N/A [facility] 02-11-2024 Functional Status N/A [facility] 09-26-2022 Functional Status N/A [facility] 04-16-2022 Functional Status N/A [facility] Clinical Notes 10-06-2020 to 03-17-2024 Note [...] Follow these instructions at home: Medicines Take apqz-jns-cowldvg and prescription medicines only as told by [...] provider. Document Revised: 05/03/2021 Document Reviewed: 05/03/2021 [employer] Patient Education 2022 [employer]. Follow Up Care 03/13/2024 14:20:02 With:KIM Lino APRN, Lazara Echavarria, PARVIN, URL Address: When: Unknown [facility] 03-17-2024 Note Patient Education Urology Acute Urinary [...] these instructions at home: Medicines ? Take ahrt-ptt-bnzivoi and prescription medicines only as told by [...] provider. Document Revised: 05/03/2021 Document Reviewed: 05/03/2021 [employer] Patient Education ? 2022 [employer]. [facility] 02-11-2024 Evaluation + Plan note Diagnostic Tests PendingUrine Culture 02/11/24 [facility] 02-11-2024 Hospital Discharge instructions Patient Education 02/11/2024 [...] Follow these instructions at home: Medicines Take lzfv-mdc-kjyzite and prescription medicines only as told by [...] or the blood stops without treatment. Take ovcf-slt-gagribf and prescription medicines only as told by your health care provider. Drink enough fluid to keep your urine pale yellow. This information is not intended to replace advice given to you by your health care provider. Make sure you discuss any questions you have with your health care provider. Document Revised: 04/12/2021 Document Reviewed: 04/12/2021 [employer] Patient Education 2022 [employer]. 02/11/2024 10:34:29 Benign Prostatic Hyperplasia Benign Prostatic [...] urethra. Follow these instructions at home: Take xmsu-nmv-ycqqaky and prescription medicines only as told by [...] provider. Document Revised: 02/28/2022 Document Reviewed: 02/28/2022 [employer] Patient Education 2022 [employer]. Follow Up Care 04/16/2022 14:54:37 With:KIM Lino APRN, Lazara Echavarria, PARVIN, URL Address: When: Unknown Comments:1 year With:JAYDON COE, Reno Maciel, URL Address: [facility] [address] , [place] [address]- [phone] When: Unknown [facility] 02-11-2024 Note - From: Julia Charlton To: [facility] - Administrative; Sent: 02/11/2024 10:28:36 EDT Show up: 08/26/2024 10:28:00 EST Subject: schedule 1 yr f/u Due Date/Time: 02/02/2025 10:28:00 EDT Reminder/Recall Patient needs scheduled for a 1 yr f/u, no labs [facility] 07-17-2023 Evaluation note Encounter Date [...] no improvement in 2 to 3 days [facility] Other 02-01-2023 Hospital Discharge instructions Patient Education [...] or mouth. Supplies needed: Soap. Alcohol-based hand asw/asuw tactical air controller. Standard cleaning products. Disinfectants, such as bleach. [...] water are not available, use alcohol-based hand asw/asuw tactical air controller. Avoid touching your face, mouth, nose, or [...] water. Air-dry your dishes or use a industrial safety and health specialist. Do not share dishes or eating utensils. [...] certain germs and not others. Read the paraprofessional aide teacher's instructions or read online resources to determine [...] minutes after each use, or according to paraprofessional aide teacher's instructions. Wash reusable cleaning cloths and sanitize [...] water are not available, use alcohol-based hand asw/asuw tactical air controller. In general: Stay home except to get [...] for Professionals in Infection Control and Epidemiology: professionals.site.apic.org/exjewfse-na-xzwo/hlp-tzlpopaayq-dlsyzgf/home/ Summary It is important to know how [...] 05/21/2009 Document Revised: 12/08/2019 Document Reviewed: 11/06/2019 [employer] Patient Education 2019 [employer]. Follow Up Care 09/20/2022 14:58:28 With:Reno VALENTIN MD, URL Address: [facility] [address], [place] [address]- When:3 months Comments:UTI F/U [facility] 08-22-2022 Hospital Discharge instructions Patient Education 04/16/2022 [...] urethra. Follow these instructions at home: Take oskw-kro-niawtvo and prescription medicines only as told by [...] 08/12/2006 Document Revised: 07/07/2019 Document Reviewed: 09/16/2017 [employer] Patient Education 2020 [employer] 04/16/2022 14:44:17 Calorie Counting for Weight [...] Document Reviewed: 07/12/2017 Elsevier Patient Education 2020 [employer] Follow Up Care 10/16/2021 15:00:57 With:JAYDON COE, Reno Mcaiel, URL Address: [address] [place] [address] [place] [address]- Business (1) When:Within 1 Year(s) [facility] Stephany 02-11-2021 NotePatient Outreach (COVAMN) KYLER RICHARD ([id number]) 1940 M Date Time Provider Department 10/06/20 WEATHERS, JOLYNN WHITFIELD During your visit today, we recorded the following information about you: Allergies As of Date: 10/06/2020 (No Known Allergies) Date Reviewed: 11/27/2018 Reviewed by: Huyen Barraza - Fully Assessed Order(s):SARS-COVID VACCINE 1ST DOSE APPT [[id number]] Order #: [id number] FUTURE Prescriptions as of 10/06/2020 Sig: RHOPRESSA [...] Text Encounter Status:Closed by NIDIA VOGEL on 10/10/20[facility] Evaluation + Plan note Future Appointments Appointment Date:04/19/2023 09:30:00 AM Scheduled Provider:Reno VALENTIN MD Location:[facility] Appointment Type:URO Office Visit [facility] Tangible Cryptography evaluation + Plan note Future Appointments Appointment Date:01/16/2023 09:45:00 AM Scheduled Provider:Reno VALENTIN MD Location:[facility] Appointment Type:URO Office Visit Appointment Date:04/19/2023 09:30:00 AM Scheduled Provider:Reno VALENTIN MD Location:[facility] Appointment Type:URO Office Visit [facility] Evaluation + Plan note Future Appointments Appointment Date:04/14/2024 11:30:00 AM Scheduled Provider:KIM Lino APRN, [place] X Location:[facility] Appointment Type:URO Office Visit [facility] Tangible Cryptography History general Narrative - Reported* Type Description Date Medical History heart disease Medical History colon cancer Medical History glaucoma Surgical History open heart surgery Surgical History colon surgery Surgical History 3 hernia repairs Surgical History torn retina Surgical History cataracts Surgical History left total hip 2017 Surgical History Eye lid lift both 2020 Hospitalization History see above Hospitalization History back spasms 2022 [facility] Other Hospital course Narrative No data available for this section [facility] Tangible Cryptography Hospital Discharge instructions No data available for this section [facility] No data available for this section [facility] Tangible Cryptography Summary Purpose Family History No Family History [...] content) DATE CREATED AUTHOR 09/19/2021 [facility] DATE CREATED AUTHOR AUTHOR'S ORGANIZ ATION 02/01/2023 [facility] DATE CREATED AUTHOR AUTHOR'S ORGANIZ ATION 12/31/2023 [facility] DATE CREATED AUTHOR AUTHOR'S ORGANIZ ATION 02/13/2024 [facility] DATE CREATED AUTHOR AUTHOR'S ORGANIZ ATION 02/14/2024 [facility] DATE CREATED AUTHOR AUTHOR'S ORGANIZ ATION 03/20/2024 [facility] Care Team (unrecognized sect ion and content) Personnel Name: Eliana Ba MD Address: [address] [place] [address] Personnel Name: Eliana Ba MD Address: Address: [address] [place] [address] Personnel Name: Eliana Ba MD Address: Address: [address] [place] [address] Personnel Name: Eliana Ba MD Address: Address: [address] [place] [address] Personnel Name: Eliana Ba MD Address: Address: [address] [place] [address] Personnel Name: Eliana Ba MD Address: Address: [address] [place] [address] REASON FOR VISIT (unrecogniz ed section and [...] BE BASED ON THE PRIMARY CLINICAL RECORDS. [facility] [employer] [facility]. provides no warranty or guarantee of the accuracy or completeness of information in this document.
[2024-04-07] MEDS: LIDOCAINE 2% JELLY 10 ML UR (10:09)
[2024-04-07 10:18] VITALS: BP 136/65; BP 156/67; PULSE 47; PULSE 54; O2SAT 97; O2SAT 98
--- NOTE | 2024-04-07 10:25 | PM.URSON ---
Urology Surgery Operative Note Operative Note Procedure Date: 04/07/24 Time Out Performed: yes Pre-op Diagnosis: Urethral stricture; history of urinary retention Post-op Diagnosis: same as pre-op Procedures performed: 1. Cystoscopy. Anesthesia: local Primary Surgeon: Reno Valentin Complications: None Estimated blood loss (mL): 0 Findings: No urethral stricture. Open prostate. Specimens: None Drains: None Indications for Procedures: This gentleman had a history of urethral stricture and urinary retention. In the past he was dilated to 30 Chinese. Recently he had a More catheter indwelling. He now presents for cystoscopy and possible urethral dilation. He has signed an informed consent after risks were explained. Detailed description of Procedure: [facility] in the supine position and brought to the Endo suite. Timeout was done by all parties in the room. We all agreed upon the patient's identification and the planned procedures for this patient. Genitalia were sterilely prepped and draped in the usual fashion after the More catheter was removed. 2% lidocaine gel was passed per urethra. I then passed a flexible cystoscope per urethra and into the bladder. There was no evidence of any stricture throughout the entire urethra. There was some excoriation of the anterior portion of the proximal penile urethra. Presumedly, this was from the More catheter. The prostatic urethra was open. Careful panendoscopy in the bladder revealed no evidence of any tumors or stones. There was high-grade trabeculation. The scope was then removed. I elected not to replace the More catheter. He was then discharged to home. He will follow-up in 3 months with a bladder scan PVR.
== END 2024-04-07 10:40 | disposition home or self-care (01) ==
PROVIDERS: PCP Family Medicine; Visit Provider Urology
PROC: (CPT 52000; principal; 2024-04-07 09:25)
DX: N35.919 Unspecified urethral stricture, male, unspecified site (principal); N32.89 Other specified disorders of bladder; R33.9 Retention of urine, unspecified; N40.1 Benign prostatic hyperplasia with lower urinary tract symptoms; I10 Essential (primary) hypertension; G47.30 Sleep apnea, unspecified; E78.00 Pure hypercholesterolemia, unspecified; Z85.038 Personal history of other malignant neoplasm of large intestine; Z95.1 Presence of aortocoronary bypass graft
CPT/HCPCS: 52000

== ENCOUNTER 2024-05-10 19:59 | Emergency (ER) | payer MEDICARE, SELFPAY ==
[2024-05-10 20:02] VITALS: BP 188/110; PULSE 87; TEMP 36.7; O2SAT 97
--- NOTE | 2024-05-10 20:07 | ED.MALEGU1 ---
HPI - Male Genitourinary General Chief complaint: Urogenital-Male Stated complaint: Groin Pain Time Seen by Provider: 05/10/24 20:04 Source: patient Mode of arrival: ambulance Limitations: no limitations History of Present Illness HPI Narrative: 83-year-old male presents because he cannot urinate. He states the last time he really urinated was this afternoon. Since then it has been dribbling. He has had prostate problems previously and has had to have a catheter. He is complaining of severe pain in his midline lower abdomen. No fever or vomiting. He was noted to be hypertensive by the paramedics and they gave him 2 mg of IV morphine for pain. Related Data Home Medications ?Medication ?Instructions ?Recorded ?Confirmed aspirin 81 mg tablet,delayed 81 mg PO DAILY 05/20/23 04/07/24 release atorvastatin 40 mg tablet 40 mg PO DAILY 05/20/23 04/07/24 dorzolamide 22.3 mg-timolol 6.8 1 drp ophthalmic (eye) BID 05/20/23 04/07/24 mg/mL eye drops icosapent ethyl 1 gram capsule 2 g PO BID 05/20/23 04/07/24 latanoprost 0.005 % eye drops 1 drp ophthalmic (eye) .QHS 05/20/23 04/07/24 lisinopril 10 mg tablet 10 mg PO DAILY 05/20/23 04/07/24 meloxicam 15 mg tablet 15 mg PO DAILY 05/20/23 04/07/24 netarsudil 0.02 % eye drops 1 drp ophthalmic (eye) DAILY 05/20/23 04/07/24 (Rhopressa) tamsulosin 0.4 mg capsule 0.4 mg PO BID 05/20/23 04/07/24 brimonidine 0.2 % eye drops drp ophthalmic (eye) 03/02/24 cetirizine 10 mg tablet 10 mg PO DAILY 03/02/24 04/07/24 fluticasone propionate 50 1 spray intranasal DAILY 03/02/24 04/07/24 mcg/actuation nasal spray,suspension hyoscyamine sulfate 0.125 mg 0.125 mg sublingual Q6H 03/02/24 04/07/24 sublingual tablet Previous Rx's ?Medication ?Instructions ?Recorded lidocaine 5 % topical patch 1 patch topical DAILY #30 ea 12/18/23 cephalexin 500 mg capsule 500 mg PO TID 7 days #21 caps 05/10/24 Allergies Allergy/AdvReac Type Severity Reaction Status Date / Time levofloxacin [From Levaquin] AdvReac UPSET Verified 05/10/24 20:05 STOMACH Review of Systems ROS Narrative A ten point review of systems is negative except as noted above. [facility] Medical History (Updated 05/10/24 @ 22:40 by Rony Fitzgerald MD) [place] (hard of hearing) ?H91.90 - Unspecified hearing loss, unspecified ear (ICD-10) Lumbar stenosis with neurogenic claudication ?M48.062 - Spinal stenosis, lumbar region with neurogenic claudication (ICD-10) Lumbar spondylosis ?M47.816 - Spondylosis without myelopathy or radiculopathy, lumbar region (ICD-10) Myofascial pain ?M79.18 - Myalgia, other site (ICD-10) Acute UTI ?N39.0 - Urinary tract infection, site not specified (ICD-10) Acute urinary retention ?R33.8 - Other retention of urine (ICD-10) Acute urinary retention ?R33.8 - Other retention of urine (ICD-10) BPH (benign prostatic hyperplasia) ?N40.0 - Benign prostatic hyperplasia without lower urinary tract symptoms (ICD-10) Urethral stricture ?N35.919 - Unspecified urethral stricture, male, unspecified site (ICD-10) Gross hematuria ?R31.0 - Gross hematuria (ICD-10) Sleep apnea ?G47.30 - Sleep apnea, unspecified (ICD-10) High cholesterol ?E78.00 - Pure hypercholesterolemia, unspecified (ICD-10) Heart disease ?I51.9 - Heart disease, unspecified (ICD-10) Hypertension ?I10 - Essential (primary) hypertension (ICD-10) Glaucoma ?H40.9 - Unspecified glaucoma (ICD-10) Colon cancer ?C18.9 - Malignant neoplasm of colon, unspecified (ICD-10) Inability to walk ?R26.2 - Difficulty in walking, not elsewhere classified (ICD-10) Chronic back pain ?M54.9 - Dorsalgia, unspecified (ICD-10) ?G89.29 - Other chronic pain (ICD-10) Surgical History (Updated 04/07/24 @ 09:07 by Sandra Hill) History of cataract extraction ?Z98.49 - Cataract extraction status, unspecified eye (ICD-10) S/P tonsillectomy and adenoidectomy ?Z90.89 - Acquired absence of other organs (ICD-10) History of hydrocelectomy ?Z98.890 - Other specified postprocedural states (ICD-10) Detached retina, left ?H33.22 - Serous retinal detachment, left eye (ICD-10) History of colectomy ?Z90.49 - Acquired absence of other specified parts of digestive tract (ICD-10) 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 Smoking status: Never smoker Non-prescribed substance use: denies use Previous occupational history: retired Highest level of school completed/degree received: Bachelor's degree Are you now , , , , never or living with a partner: Little interest or pleasure in doing things: not at all Feeling down, depressed, or hopeless: not at all Feel stressed/tense/nervous/anxious/difficulty sleeping: not at all Do you think of yourself as: straight/heterosexual Gender Identity: male Exam Narrative Exam Narrative: Nurses note and vital signs reviewed and patient is not hypoxic. General: The patient appears quite uncomfortable Skin: Warm, dry, no pallor noted. There is no rash noted. Head: Normocephalic, atraumatic Eye: Normal conjunctiva, no drainage Ears, Nose, Mouth, and Throat: oral mucosa is moist. Nares patent. Cardiovascular: Regular Rate and Rhythm Respiratory: Patient is in no distress, no accessory muscle use, lungs are clear to auscultation, no wheezing, rales or rhonchi Back: non-tender GI: Tender and distended in the lower appendectomy Musculoskeletal: The patient has no evidence of calf tenderness, no pitting edema, symmetrical pulses noted bilaterally Neurological: Awake and alert Psychiatric: Cooperative Constitutional Vital Signs, click to edit/add: Last Vital Signs Temp 98.1 F 05/10/24 20:02 Pulse 87 05/10/24 20:02 Resp 20 05/10/24 20:02 BP 188/110 H 05/10/24 20:02 Pulse Ox 97 05/10/24 20:02 O2 Del Method Room Air 05/10/24 20:02 Course Vital Signs Vital signs: Vital Signs Temperature 98.1 F 05/10/24 20:02 Pulse Rate 87 05/10/24 20:02 Respiratory Rate 20 05/10/24 20:02 Blood Pressure 188/110 H 05/10/24 20:02 Pulse Oximetry 97 05/10/24 20:02 Oxygen Delivery Method Room Air 05/10/24 20:02 Temperature 98.1 F 05/10/24 20:02 Pulse Rate 87 05/10/24 20:02 Respiratory Rate 05/10/24 20:02 Blood Pressure 188/110 H 05/10/24 20:02 Pulse Oximetry 97 05/10/24 20:02 Oxygen Delivery Method Room Air 05/10/24 20:02 MDM - Male Genitourinary MDM Narrative Medical decision making narrative: The patient presented with acute urinary retention. More catheter inserted and multiple clots came through. The More was irrigated and cleared up significantly and was no longer grossly bloody. Findings are discussed with the patient he is placed on prophylactic Keflex. Differential Diagnosis Differential diagnosis: Likely urinary tract infection and other (Urinary retention) Lab Data Attestation: I reviewed the patient's lab results. Labs: Lab Results 05/10/24 05/10/24 Range/Units 20:33 20:42 WBC 4.8 (4.0-11.0) 10^3/uL RBC 4.74 (4.70-6.10) 10^6/uL Hgb 14.9 (14.0-18.0) g/dL Hct 43.1 (42.0-54.0) % MCV 90.9 (80.0-94.0) fL MCH 31.4 (25.9-34.0) pg MCHC 34.6 (29.9-35.2) g/dL RDW 12.6 (11.0-15.0) % Plt Count 207 (150-450) 10^3/uL MPV 10.4 (9.5-13.5) fL Neut % (Auto) 54.7 (43.0-75.0) % Lymph % (Auto) 30.6 (20.5-60.0) % [place] % (Auto) 7.7 (1.7-12.0) % Eos % (Auto) 5.8 (0.9-7.0) % Baso % (Auto) 1.0 (0.2-2.0) % Neut # (Auto) 2.6 (1.4-6.5) 10^3/uL Lymph # (Auto) 1.5 (1.2-3.8) 10^3/uL [place] # (Auto) 0.4 (0.3-0.8) 10^3/uL Eos # (Auto) 0.3 (0.0-0.7) 10^3/uL Baso # (Auto) 0.1 (0.0-0.1) 10^3/uL Abs Immat Gran (auto) 0.01 (0.00-0.03) 10^3/uL Imm/Tot Granulo (auto) 0.2 (0.0-0.5) % Sodium 137 (136-145) mmol/L Potassium 3.7 (3.5-5.1) mmol/L Chloride 103 (98-107) mmol/L Carbon Dioxide 27.4 (21.0-32.0) mmol/L Anion Gap 10.3 BUN 18.0 (7.0-18.0) mg/dL Creatinine 1.02 (0.70-1.30) mg/dL Est GFR ( Amer) >60 (>=60) Est GFR (Non-Af Amer) >60 (>=60) BUN/Creatinine Ratio 17.6 Glucose 136 H (74-106) mg/dL Calcium 8.5 (8.5-10.1) mg/dL Urine Color Dk. red (YELLOW) Urine Clarity Clear (CLEAR) Urine pH Color interference A (5.0-9.0) Ur Specific [place] 1.010 (1.005-1.025) Urine Protein Color interference A (NEG/TRACE) mg/dL Urine Glucose (UA) Color interference A (NEGATIVE) mg/dL Urine Ketones Color interference A (NEGATIVE) mg/dL Urine Occult Blood Color interference A (NEGATIVE) Urine Nitrite Color interference A (NEGATIVE) Urine Bilirubin Color interference A (NEGATIVE) Urine Urobilinogen Color interference A (0.2-1.0) EU/dL Ur Leukocyte Esterase Color interference A (NEGATIVE) Urine RBC >100 A (0-2) #/HPF Urine WBC 5-10 A (NONE SEEN) #/HPF Ur Squamous Epith Cells None seen (NONE/RARE) #/LPF Urine Crystals None seen (None Seen) #/HPF Urine Bacteria Trace A (NONE SEEN) #/HPF Urine Casts None seen (NONE SEEN) #/LPF Urine Mucus None seen (NONE SEEN) Ur Culture Indicated? Yes Discharge Plan Discharge Chief Complaint: Urogenital-Male Clinical Impression: Acute urinary retention Patient Disposition: Home, Self-Care Time of Disposition Decision: 22:39 Condition: Good Mode of Transportation: Private Vehicle Prescriptions / Home Meds: New cephalexin 500 mg capsule 500 mg PO TID 7 Days Qty: 21 0RF No Action atorvastatin 40 mg tablet 40 mg PO DAILY dorzolamide-timolol 22.3-6.8 mg/mL drops 1 drp OPHTHALMIC (EYE) BID Rx Instructions: BOTH EYES icosapent ethyl 1 gram capsule 2 g PO BID latanoprost 0.005 % drops 1 drp OPHTHALMIC (EYE) .QHS Rx Instructions: RIGHT EYE lisinopril 10 mg tablet 10 mg PO DAILY meloxicam 15 mg tablet 15 mg PO DAILY Rhopressa 0.02 % drops 1 drp OPHTHALMIC (EYE) DAILY Rx Instructions: RIGHT EYE tamsulosin 0.4 mg capsule 0.4 mg PO BID aspirin 81 mg tablet,delayed release (DR/EC) 81 mg PO DAILY lidocaine 5 % adhesive patch,medicated 1 patch topical DAILY Qty: 30 2RF Rx Instructions: leave on most painful area for up to 12 hrs each day cetirizine 10 mg tablet 10 mg PO DAILY hyoscyamine sulfate 0.125 mg tablet, sublingual 0.125 mg sublingual Q6H brimonidine 0.2 % drops OPHTHALMIC (EYE) fluticasone propionate 50 mcg/actuation spray,suspension 1 spray INTRANASAL DAILY Print Language: Yoruba Instructions: Urinary Retention in Men (ED), More Catheter Placement and Care (ED) Referrals: Bayron Ba MD [Primary Care Provider] - 1 week Reno Valentin MD [Physician] - 1 week
--- OUTSIDE RECORDS SUMMARY | 2024-05-10 20:32 | XMS_ITS | CCD ---
Author Organization [facility] Care Team Providers Care Optical Scientist Name Role Phone Eliana Ba Primary Care Physician GERONIMO .KARLOS Admitting Unavailable GERONIMO ., KARLOS Consulting Unavailable KARLOS ONOFRE Attending Unavailable MARCUS ., DR MONROY Primary [...] CALVIN BARNES Consulting Unavailable Rocio Chan Unavailable Givalerieitis , Andrius Conner Attending Unavailable Giedraitis , Andrius Vchasity Attending Unavailable Giedraitis , Andrius Vytsahil Attending Unavailable Giedraitis , Andrius Vytautoli Attending Unavailable Giedraitis , Andrius Vytsahil Attending Unavailable Orzech, Lazara X Attending Unavailable Orzech, Lazara X Admitting Unavailable Orzech Lazara X Attending Unavailable Orzech, Lazara X Attending Unavailable Orzech, Lazara X Attending Unavailable Emily Maria. Attending Unavailable Reno VALENTIN Attending Unavailable Reno VALENTIN Referring Unavailable Oralexander, Lazara X Attending Unavailable DONNA ANTONY Attending Unavailable ELIANA BA M Primary Care Unavailable RAMEZ LERNER Admitting Unavailable DONNA ANTONY Attending Unavailable DONNA ANTONY Referring Unavailable ELIANA BA M Primary Care Unavailable DONNA ANTONY Attending Unavailable DONNA ANTONY Referring Unavailable ELIANA BA M Primary Care Unavailable GEORGINA MALDONADO Attending Unavailable GEORGINA MALDONADO Referring Unavailable HOY, ELIANA M Primary Care Unavailable GEORGINA MALDONADO Attending Unavailable GEORGINA MALDONADO Referring Unavailable ELIANA BA Primary Care Unavailable GEORGINA MALDONADO Attending Unavailable GEORGINA MALDONADO Referring Unavailable ELIANA BA Primary Care Unavailable RAMBO MILLIGAN Attending Unavailable RAMBO MILLIGAN Referring Unavailable ELIANA BA Primary Care Unavailable ELIANA BA Referring Unavailable ELIANA BA Primary Care Unavailable Allergies Allergy Classification Reported Allergen(s) Allergy Type Date of Onset Reaction(s) Facility Quinolones (antibiotic) (2 sources) levoFLOXacin; Translations: [levofloxacin] Drug Allergy Irritation (qualifier value) [facility] (7 sources) levoFLOXacin; Translations: [levofloxacin] Drug Allergy 04-17-2024 Irritation (qualifier value) [facility] Medications Current Medications Medication Drug Class(es) [...] day(s), # 20 cap(s), Refills(s) 0, Pharmacy: [id number], 160, cm, 09/26/22 13:50:00 EST, Height/Length Dosing, [...] Status: Ordered take 1 tablet by lavern th every twelve hours Metoprolol Tartrate 25 MG [...] Ordered Start: 03-07-2022 take 1 capsule by 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; Translations: [Cerebral infarction, unspecified] Onset: 04-17-2024 Chronic Acute cerebrovascular disease (2 sources) Acute cerebrovascular disease Onset: 04-17-2024 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 [...] Onset: 09-20-2022 Chronic Disorders of lipid metabolism (11 sources) Hypercholesterolemia; Translations: [Hyperlipidemia, unspecified] Onset: 09-20-2022 03-13-2019 Chronic [...] [VITAMIN D DEFICIENCY UNSPECIFIED] Onset: 09-28-2022 Chronic Occlusion or stenosis of precerebral arteries (1 source) Occlusion and stenosis of left vertebral artery; Translations: [Occlusion and stenosis of left vertebral artery] Onset: 04-17-2024 Chronic Osteoarthritis (2 sources) Osteoarthritis of right [...] Chronic Other connective tissue disease (1 source) Unspecified symptoms and signs involving the nervous system; Translations: [Unspecified symptoms and signs involving the nervous system] Onset: 04-17-2024 Episodic Other diseases of bladder and urethra (10 [...] mass index 30+ - obesity 04-16-2022 Chronic Other nutritional; endocrine; and metabolic disorders (1 source) Hypocalcemia; Translations: [Hypocalcemia] Onset: 04-17-2024 Chronic Vanessa-; endo-; and myocarditis; cardiomyopathy (except [...] 09-28-2022 Episodic Other aftercare (1 source) Other halfway (current) drug therapy; Translations: [OTH ASSISTED CURRENT DRUG THERAPY] Onset: 09-20-2022 Episodic Other aftercare (1 source) jail (current) use of aspirin; 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] Onset: 09-20-2022 [...] Test Name Value Interpretation Reference Range Facility COMPREHENSIVE METABOLIC PANE Jarett 04-20-2024 Albumin [Mass/Vol] 3.4 g/dL Normal 3.2-5.3 [facility] Comment on above: Performed By: #### C MP ####[facility] ([id number])[address] [place] [address], [place] [address] ALP [Catalytic activity/Vol] 73 U/L Normal 39-130 [facility] Comment on above: Performed By: #### C MP ####[facility] ([id number])[address] [place] [address], [place] [address] ALT [Catalytic activity/Vol] 21 U/L Normal 0-40 [facility] Comment on above: Performed By: #### C MP ####[facility] ([id number])[address] [place] [address], [place] [address] Anion gap [Moles/Vol] 8 mmol/L Normal 5-15 [facility] Comment on above: Performed By: #### C MP ####[facility] ([id number])[address] [place] [address], [place] [address] AST [Catalytic activity/Vol] 17 U/L Normal 0-41 [facility] Comment on above: Performed By: #### C MP ####[facility] ([id number])[address] [place] [address], [place] [address] Bilirubin [Mass/Vol] 0.7 mg/dL Normal 0.3-1.[address] [facility] Comment on above: Performed By: #### C MP ####[facility] ([id number])[address] [place] [address], [place] [address] Calcium [Mass/Vol] 8.4 mg/dL Low 8.5-10.5 [facility] Comment on above: Performed By: #### C MP ####[facility] ([id number])[address] [place] [address], [place] [address] Chloride [Moles/Vol] 102 mmol/L Normal 98-[address] [facility] Comment on above: Performed By: #### C MP ####[facility] ([id number])[address] [place] [address] CO2 [Moles/Vol] 24 mmol/L Normal 22-32 [facility] Comment on above: Performed By: #### C MP ####[facility] ([id number])[address] [place] [address] Creatinine [Mass/Vol] 0.85 mg/dL Normal 0.70-1.20 [facility] Comment on above: Result Comment: METH OD TRACEABLE TO IDMS STANDARD Performed By: #### C MP ####[facility] ([id number])[address] [place] [address] GFR/1.73 sq M.predicted among non-blacks MDRD (S/P/Bld) [Vol rate/Area] 87 mL/min/{1.73_m2} Normal >59 [facility] Comment on above: Result Comment: Reported eGFR is based on the CKD-EPI 1 equation that does not use a race coefficient. Performed By: #### C MP ####[facility] ([id number])[address] [place] [address] Glucose [Mass/Vol] 119 mg/dL High 65-99 [facility] Comment on above: Performed By: #### C MP ####[facility] ([id number])[address] [place] [address] [place] [address] Potassium [Moles/Vol] 3.4 mmol/L Low 3.5-5.0 [facility] Comment on above: Performed By: #### C MP ####[facility] ([id number])[address] [place] [address] [place] [address] Protein [Mass/Vol] 6.4 g/dL Normal 6.0-8.0 [facility] Comment on above: Performed By: #### C MP ####[facility] ([id number])[address] [place] [address] [place] [address] Sodium [Moles/Vol] 134 mmol/L Normal 134-146 [facility] Comment on above: Performed By: #### C MP ####[facility] ([id number])[address] [place] [address] Urea nitrogen [Mass/Vol] 19 mg/dL Normal 5-27 [facility] Comment on above: Performed By: #### C MP ####[facility] ([id number])[address] [place] [address] CBC AND AUTO DIFFon 08- 24 ABSOLUTE BASOPHIL 0.0 X10E9/L Normal 0.0-0.2 [facility] Comment on above: Performed By: #### C MP, CBCA ####[facility] ([id number])[address] [place] [address] ABSOLUTE NEUTROPHIL 3.3 X10E9/L Normal 1.5-6.[address] [facility] Comment on above: Performed By: #### C MP, CBCA ####[facility] ([id number])[address] [place] [address] Basophils/100 WBC (Bld) 0.4 % Normal [facility] Comment on above: Performed By: #### C MP, CBCA ####[facility] ([id number])[address] [place] [address] 31647 Eosinophils (Bld) [#/Vol] 0.3 10*3/uL Normal 0.0-0.4 [facility] Comment on above: Performed By: #### C MP, CBCA ####[facility] ([id number])[address] [place] [address] [place] [address] Eosinophils/100 WBC (Bld) 4.5 % Normal [facility] Comment on above: Performed By: #### C MP, CBCA ####[facility] ([id number])[address] [place] [address] 17341 Erythrocyte distribution width (RBC) [Ratio] 13.4 % Normal 11.5-15.0 [facility] Comment on above: Performed By: #### C MP, CBCA ####[facility] ([id number])[address] [place] [address] 11899 Hematocrit (Bld) [Volume fraction] 43.2 % Normal 39-49 [facility] Comment on above: Performed By: #### C MP, CBCA ####[facility] ([id number])[address] [place] [address]778 Hemoglobin (Bld) [Mass/Vol] 15.1 g/dL Normal 13.0-17.0 [facility] Comment on above: Performed By: #### C MP, CBCA ####[facility] ([id number])[address] [place] [address] Lymphocytes (Bld) [#/Vol] 2.1 10*3/uL Normal 1.0-3.5 [facility] Comment on above: Performed By: #### C MP, CBCA ####[facility] ([id number])[address] [place] [address]55 Lymphocytes/100 WBC (Bld) 33.9 % Normal [facility] Comment on above: Performed By: #### C MP, CBCA ####[facility] ([id number])[address] [place] [address] 20694 MCH (RBC) [Entitic mass] 31.9 pg Normal 27-34 [facility] Comment on above: Performed By: #### C MP, CBCA ####[facility] ([id number])[address] [place] [address] 49862 MCHC (RBC) [Mass/Vol] 34.8 g/dL Normal 32-36 [facility] Comment on above: Performed By: #### C MP, CBCA ####[facility] ([id number])[address] [place] [address] 62547 MCV (RBC) [Entitic vol] 92 fL Normal 80-100 [facility] Comment on above: Performed By: #### C MP, CBCA ####[facility] ([id number])[address] [place] [address] 77382 Monocytes (Bld) [#/Vol] 0.5 10*3/uL Normal 0-0.9 [facility] Comment on above: Performed By: #### C MP, CBCA ####[facility] ([id number])[address] [place] [address] 80427 Monocytes/100 WBC (Bld) 8.5 % Normal [facility] Comment on above: Performed By: #### C MP, CBCA ####[facility] ([id number])[address] [place] [address] 24437 Neutrophils/100 WBC (Bld) 52.7 % Normal [facility] Comment on above: Performed By: #### C MP, CBCA ####[facility] ([id number])[address] [place] [address] 72692 Platelet mean volume (Bld) [Entitic vol] 8.2 fL Normal 7-12 [facility] Comment on above: Performed By: #### C MP, CBCA ####[facility] ([id number])[address] [place] [address] 14432 Platelets (Bld) [#/Vol] 140 10*3/uL Low 150-450 [facility] Comment on above: Performed By: #### C MP, CBCA ####[facility] ([id number])[address] [place] [address] [place] [address] RBC COUNT 4.71 X10E12/L Normal 4.10-5.70 [facility] Comment on above: Performed By: #### C SERINA CBCA ####[facility] ([id number])[address] [place] [address] 13694 WBC (Bld) [#/Vol] 6.2 10*3/uL Normal 4.0-11.0 [facility] Comment on above: Performed By: #### C SERINA, CBCA ####[facility] ([id number])[address] [place] [address] 28998 COMPREHENSIVE METABOLIC PANE [facility] [place] 04-19-2024 Albumin [Mass/Vol] 3.4 g/dL Normal 3.2-5.3 [facility] Comment on above: Performed By: #### C SERINA CBCA ####[facility] ([id number])[address] [place] [address] 93756 ALP [Catalytic activity/Vol] 69 U/L Normal 39-130 [facility] Comment on above: Performed By: #### C SERINA CBCA ####[facility] ([id number])[address] [place] [address] 74792 ALT [Catalytic activity/Vol] 18 U/L Normal 0-40 [facility] Comment on above: Performed By: #### C SERINA CBCA ####[facility] ([id number])[address] [place] [address] 55161 Anion gap [Moles/Vol] 9 mmol/L Normal 5-15 [facility] Comment on above: Performed By: #### C SERINA CBCA ####[facility] ([id number])[address] [place] [address] 28485 AST [Catalytic activity/Vol] 23 U/L Normal 0-41 [facility] Comment on above: Performed By: #### C SERINA CBCA ####[facility] ([id number])[address] [place] [address] [place] [address] Bilirubin [Mass/Vol] 1.0 mg/dL Normal 0.3-1.[address] [facility] Comment on above: Result Comment: RESU LTS QUESTIONABLE DUE TO HEMOLYSIS Performed By: #### C SERINA CBCA ####[facility] ([id number])[address] [place] [address] 73144 Calcium [Mass/Vol] 8.3 mg/dL Low 8.5-10.5 [facility] Comment on above: Performed By: #### C SERINA CBCA ####[facility] ([id number])[address] [place] [address] 50853 Chloride [Moles/Vol] 107 mmol/L Normal 98-[address] [facility] Comment on above: Performed By: #### C SERINA CBCA ####[facility] ([id number])[address] [place] [address] 13941 CO2 [Moles/Vol] 21 mmol/L Low 22-32 [facility] Comment on above: Performed By: #### C SERINA CBCA ####[facility] ([id number])[address] [place] [address] 32050 Creatinine [Mass/Vol] 0.81 mg/dL Normal 0.70-1.20 [facility] Comment on above: Result Comment: METH OD TRACEABLE TO IDMS STANDARD Performed By: #### C SERINA CBCA ####[facility] ([id number])[address] [place] [address] 60271 GFR/1.73 sq M.predicted among non-blacks MDRD (S/P/Bld) [Vol rate/Area] 89 mL/min/{1.73_m2} Normal >59 [facility] Comment on above: Result Comment: Reported eGFR is based on the CKD-EPI 2020 equation that does not use a race coefficient. Performed By: #### C MP, CBCA ####[facility] ([id number])[address] [place] [address], [place] [address] Glucose [Mass/Vol] 125 mg/dL High 65-99 [facility] Comment on above: Performed By: #### C MP, CBCA ####[facility] ([id number])[address] [place] [address] [place] [address] Potassium [Moles/Vol] 4.0 mmol/L Normal 3.5-5.0 [facility] Comment on above: Result Comment: SPEC IMEN HEMOLYZED, RESULTS INCREASED Performed By: #### C SERINA, CBCA ####[facility] ([id number])[address] [place] [address] 56277 Protein [Mass/Vol] 6.0 g/dL Normal 6.0-8.0 [facility] Comment on above: Performed By: #### C SERINA, CBCA ####[facility] ([id number])[address] [place] [address] [place] [address] Sodium [Moles/Vol] 137 mmol/L Normal 134-146 [facility] Comment on above: Performed By: #### C SERINA, CBCA ####[facility] ([id number])[address] [place] [address] 39986 Urea nitrogen [Mass/Vol] 16 mg/dL Normal 5-27 [facility] Comment on above: Performed By: #### C MP, CBCA ####[facility] ([id number])[address] [place] [address] 04322 Calcium.ionized (Bld) [Moles /Vol]on 04-19-2024 PORTABLE ICA 4.6 mg/dL Normal 4.5-5.3 [facility] Comment on above: Performed By: #### 1 994-3 ####[facility] ([id number])[address] [place] [address] 76857 CBC AND AUTO DIFFon 04-18-20 24 ABSOLUTE BASOPHIL 0.1 X10E9/L Normal 0.0-0.2 [facility] Comment on above: Performed By: #### C BCA, CMP ####[facility] ([id number])[address] [place] [address] 17556#### [id number] ####[facility] ([id number])[address], [address], [place] [address] ABSOLUTE NEUTROPHIL 2.7 X10E9/L Normal 1.5-6.[address] [facility] Comment on above: Performed By: #### C BCA, CMP ####[facility] ([id number])[address] [place] [address] 80091#### [id number] ####[facility] ([id number])[address], [address], [place] [address] Basophils/100 WBC (Bld) 0.9 % Normal [facility] Comment on above: Performed By: #### C BCA, CMP ####[facility] ([id number])[address] [place] [address] 01809#### [id number] ####[facility] ([id number])[address], [address] [address] Eosinophils (Bld) [#/Vol] 0.2 10*3/uL Normal 0.0-0.4 [facility] Comment on above: Performed By: #### C BCA, CMP ####[facility] ([id number])[address] [place] [address] 81929#### [id number] ####[facility] ([id number])[address], [address] [address] Eosinophils/100 WBC (Bld) 4.1 % Normal [facility] Comment on above: Performed By: #### C BCA, CMP ####[facility] ([id number])[address] [place] [address] 29546#### [id number] ####[facility] ([id number])[address], [place] [address] Erythrocyte distribution width (RBC) [Ratio] 13.8 % Normal 11.5-15.0 [facility] Comment on above: Performed By: #### C BCA, CMP ####[facility] ([id number])[address] [place] [address] 35776#### [id number] ####[facility] ([id number])[address], [address] [place] [address] 37865 Hematocrit (Bld) [Volume fraction] 41.2 % Normal 39-49 [facility] Comment on above: Performed By: #### C BCA, CMP ####[facility] ([id number])[address] [place] [address] 70488#### [id number] ####[facility] ([id number])[address], [place] [address] Hemoglobin (Bld) [Mass/Vol] 14.1 g/dL Normal 13.0-17.0 [facility] Comment on above: Performed By: #### C BCA, CMP ####[facility] ([id number])[address] [place] [address] 09134#### [id number] ####[facility] ([id number])[address], [place] [address] Lymphocytes (Bld) [#/Vol] 1.9 10*3/uL Normal 1.0-3.5 [facility] Comment on above: Performed By: #### C BCA, CMP ####[facility] ([id number])[address] [place] [address] 60385#### [id number] ####[facility] ([id number])[address], [address] [address] Lymphocytes/100 WBC (Bld) 35.6 % Normal [facility] Comment on above: Performed By: #### C BCA, CMP ####[facility] ([id number])[address] [place] [address] 89255#### [id number] ####[facility] ([id number])[address], [place] [address] MCH (RBC) [Entitic mass] 31.7 pg Normal 27-34 [facility] Comment on above: Performed By: #### C BCA, CMP ####[facility] ([id number])[address] [place] [address] 65365#### [id number] ####[facility] ([id number])[address], [address] [address] MCHC (RBC) [Mass/Vol] 34.2 g/dL Normal 32-36 [facility] Comment on above: Performed By: #### C BCA, CMP ####[facility] ([id number])[address] [place] [address] 67537#### [id number] ####[facility] ([id number])[address], [address] [place] [address] MCV (RBC) [Entitic vol] 93 fL Normal 80-100 [facility] Comment on above: Performed By: #### C BCA, CMP ####[facility] ([id number])[address] [place] [address] 22306#### [id number] ####[facility] ([id number])[address], [place] [address] Monocytes (Bld) [#/Vol] 0.5 10*3/uL Normal 0-0.9 [facility] Comment on above: Performed By: #### C BCA, CMP ####[facility] ([id number])[address] [place] [address] 32224#### [id number] ####[facility] ([id number])[address] [place] [address] Monocytes/100 WBC (Bld) 9.4 % Normal [facility] Comment on above: Performed By: #### Alessandro BCA, CMP ####[facility] ([id number])[address] [place] [address] 78352#### [id number] ####[facility] ([id number])[address], [address] [place] [address] Neutrophils/100 WBC (Bld) 50.0 % Normal [facility] Comment on above: Performed By: #### Alessandro BCA, CMP ####[facility] ([id number])[address] [place] [address] 26615#### 02482-1 ####[facility] ([id number])[address] [place] [address] Platelet mean volume (Bld) [Entitic vol] 8.2 fL Normal 7-12 [facility] Comment on above: Performed By: #### C BCA, CMP ####[facility] ([id number])[address] [place] [address] 78575#### 11422-8 ####[facility] ([id number])[address], [address], [place] [address] Platelets (Bld) [#/Vol] 159 10*3/uL Normal 150-450 [facility] Comment on above: Performed By: #### C BCA, CMP ####[facility] ([id number])[address] [place] [address] 93826#### 89413-8 ####[facility] ([id number])[address], [address] [place] [address] 62887 RBC COUNT 4.45 X10E12/L Normal 4.10-5.70 [facility] Comment on above: Performed By: #### C BCA, CMP ####[facility] ([id number])[address] [place] [address] 05592#### 38464-5 ####[facility] ([id number])[address], [address] [place] [address] 99100 WBC (Bld) [#/Vol] 5.4 10*3/uL Normal 4.0-11.0 [facility] Comment on above: Performed By: #### C BCA, CMP ####[facility] ([id number])[address] [place] [address] 26560#### 52773-8 ####[facility] ([id number])[address], [address] [place] [address] COMPREHENSIVE METABOLIC PANE Jarett 04-18-2024 Albumin [Mass/Vol] 3.3 g/dL Normal 3.2-5.3 [facility] Comment on above: Performed By: #### C BCA, CMP ####[facility] ([id number])[address] [place] [address] 16721#### 82950-3 ####[facility] ([id number])[address], [address] [place] [address] 53899 ALP [Catalytic activity/Vol] 67 U/L Normal 39-130 [facility] Comment on above: Performed By: #### C BCA, CMP ####[facility] ([id number])[address] [place] [address] 42199#### 83625-1 ####[facility] ([id number])[address], [address], [place] [address] ALT [Catalytic activity/Vol] 18 U/L Normal 0-40 [facility] Comment on above: Performed By: #### C BCA, CMP ####[facility] ([id number])[address] [place] [address] 16540#### 72216-8 ####[facility] ([id number])[address], [address] [address] Anion gap [Moles/Vol] 7 mmol/L Normal 5-15 [facility] Comment on above: Performed By: #### C BCA, CMP ####[facility] ([id number])[address] [place] [address] 91789#### 43535-5 ####[facility] ([id number])[address], [address] [address] AST [Catalytic activity/Vol] 17 U/L Normal 0-41 [facility] Comment on above: Performed By: #### C BCA, CMP ####[facility] ([id number])[address] [place] [address] 21341#### 31594-1 ####[facility] ([id number])[address], [address] [address] Bilirubin [Mass/Vol] 0.8 mg/dL Normal 0.3-1.[address] [facility] Comment on above: Performed By: #### C BCA, CMP ####[facility] ([id number])[address] [place] [address] 28193#### 32216-3 ####[facility] ([id number])[address], [address], [place] [address] Calcium [Mass/Vol] 8.2 mg/dL Low 8.5-10.5 [facility] Comment on above: Performed By: #### C BCA, CMP ####[facility] ([id number])[address] [place] [address] 59410#### 49252-9 ####[facility] ([id number])[address], [address], [place] [address] Chloride [Moles/Vol] 108 mmol/L Normal 98-[address] [facility] Comment on above: Performed By: #### C BCA, CMP ####[facility] ([id number])[address] [place] [address] 29495#### 14491-7 ####[facility] ([id number])[address], [address], [place] [address] CO2 [Moles/Vol] 23 mmol/L Normal 22-32 [facility] Comment on above: Performed By: #### C BCA, CMP ####[facility] ([id number])[address] [place] [address] 80547#### 12380-0 ####[facility] ([id number])[address], [address], [place] [address] Creatinine [Mass/Vol] 0.75 mg/dL Normal 0.70-1.20 [facility] Comment on above: Result Comment: METH OD TRACEABLE TO IDMS STANDARD Performed By: #### C BCA, CMP ####[facility] ([id number])[address] [place] [address] 65842#### 67694-5 ####[facility] ([id number])[address], [place] [address] eGFR (CKD-EPI) NON-RACE DEPENDENT >90 Normal >59 [facility] Comment on above: Result Comment: Reported eGFR is based on the CKD-EPI 2020 equation that does not use a race coefficient. Performed By: #### C BCA, CMP ####[facility] ([id number])[address] [place] [address] 83686#### 11231-6 ####[facility] ([id number])[address], [address] [place] [address] 83795 Glucose [Mass/Vol] 110 mg/dL High 65-99 [facility] Comment on above: Performed By: #### C BCA, CMP ####[facility] ([id number])[address] [place] [address] 41939#### 27463-0 ####[facility] ([id number])[address] [address] Potassium [Moles/Vol] 3.5 mmol/L Normal 3.5-5.0 [facility] Comment on above: Performed By: #### C BCA, CMP ####[facility] ([id number])[address] [place] [address] 34180#### 80557-0 ####[facility] ([id number])[address] [address] Protein [Mass/Vol] 5.9 g/dL Low 6.0-8.0 [facility] Comment on above: Performed By: #### C BCA, CMP ####[facility] ([id number])[address] [place] [address] 22910#### 96936-2 ####[facility] ([id number])[address] [address] [place] [address]32 Sodium [Moles/Vol] 138 mmol/L Normal 134-146 [facility] Comment on above: Performed By: #### Alessandro BCA, CMP ####[facility] ([id number])[address] [place] [address] 11840#### 06552-9 ####[facility] ([id number])[address], [address], [place] [address] Urea nitrogen [Mass/Vol] 16 mg/dL Normal 5-27 [facility] Comment on above: Performed By: #### C BCA, CMP ####[facility] ([id number])[address] [place] [address] 84878#### 69684-3 ####[facility] ([id number])[address], [address], [place] [address] Lipid 1996 panelon 4 Cholesterol [Mass/Vol] 117 mg/dL Low 150-200 [facility] Comment on above: Performed By: #### C BCA, CMP ####[facility] ([id number])[address] [place] [address] 29786#### 20509-9 ####[facility] ([id number])[address], [address] [place] [address]31 Cholesterol in HDL [Mass/Vol] 28 mg/dL Low >39 [facility] Comment on above: Result Comment: HDL <40 mg/dL - High Risk HDL > or = 40mg/dL- Desirable HDL >60 mg/dL - Negative Risk Performed By: #### C BCA, CMP ####[facility] ([id number])[address] [place] [address] 64922#### 24534-7 ####[facility] ([id number])[address], [place] [address] Cholesterol in LDL [Mass/Vol] 35 mg/dL Normal <130 [facility] Comment on above: Result Comment: LDL <100 mg/dL - Desirable LDL >160 mg/dL - High Risk Performed By: #### C BCA, CMP ####[facility] ([id number])[address] [place] [address] 21336#### 89526-1 ####[facility] ([id number])[address] [facility], [address] [place] [address] 24092 Cholesterol in VLDL [Mass/Vol] 54 mg/dL High 0-30 [facility] Comment on above: Performed By: #### C BCA, CMP ####[facility] ([id number])[address] [place] [address] 13930#### 25954-3 ####[facility] ([id number])[address], [address] [place] [address] 50974 CHOLESTEROL:HDL 4.2 Normal 1.0-5.0 [facility] Comment on above: Performed By: #### C BCA, CMP ####[facility] ([id number])[address] [place] [address] 84013#### 82515-6 ####[facility] ([id number])[address], [address] [place] [address] 29526 Triglyceride [Mass/Vol] 270 mg/dL High 27-150 [facility] Comment on above: Performed By: #### C BCA, CMP ####[facility] ([id number])[address] [place] [address] 13655#### 68298-9 ####[facility] ([id number])[address], [address], [place] [address] POTASSIUMon 04-18-2024 Potassium [Moles/Vol] 4.1 mmol/L Normal 3.5-5.0 [facility] Comment on above: Performed By: #### 2 823-3 ####[facility] ([id number])[address] [place] [address] 33374 BASIC METABOLIC PANLon 04-17 Anion gap [Moles/Vol] 5 mmol/L Normal 5-15 [facility] Comment on above: Performed By: #### C BCA, BMP, PINR, 49354-9, 22761-9, 3016-3, 302-7 #### [facility] ([id number]) [address] [place] [address] 45884 #### HA1C #### [facility] ([id number]) [address], [address] [place] [address] Calcium [Mass/Vol] 8.2 mg/dL Low 8.5-10.5 [facility] Comment on above: Performed By: #### C BCA, BMP, PINR, 65717-8, 28592-4, 3016-3, 302-7 #### [facility] ([id number]) [address] [place] [address] 95914 #### HA1C #### [facility] ([id number]) [address], [address] [place] [address] Chloride [Moles/Vol] 105 mmol/L Normal 98-[address] [facility] Comment on above: Performed By: #### C BCA, BMP, PINR, 07491-7, 18959-9, 3016-3, 302-7 #### [facility] ([id number]) [address] [place] [address] 30667 #### HA1C #### [facility] ([id number]) [address] [address] CO2 [Moles/Vol] 26 mmol/L Normal 22-32 [facility] Comment on above: Performed By: #### C BCA, BMP, PINR, 14876-3, 64476-6, 3016-3, 3024-7 #### [facility] ([id number]) [address] [place] [address] 90373 #### HA1C #### [facility] ([id number]) [address] [place] [address] Creatinine [Mass/Vol] 0.97 mg/dL Normal 0.70-1.20 [facility] Comment on above: Result Comment: METH OD TRACEABLE TO IDMS STANDARD Performed By: #### C BCA, BMP, PINR, 26006-0, 94323-4, 3016-3, 302-7 #### [facility] ([id number]) [address] [place] [address] 05042 #### HA1C #### [facility] ([id number]) [address] [place] [address] GFR/1.73 sq M.predicted among non-blacks MDRD (S/P/Bld) [Vol rate/Area] 78 mL/min/{1.73_m2} Normal >59 [facility] Comment on above: Result Comment: Reported eGFR is based on the CKD-EPI 2020 equation that does not use a race coefficient. Performed By: #### C BCA, BMP, PINR, 87103-1, 81201-0, 3016-3, 3024-7 #### [facility] ([id number]) [address] [place] [address] 63872 #### HA1C #### [facility] ([id number]) [address] [place] [address] Glucose [Mass/Vol] 108 mg/dL High 65-99 [facility] Comment on above: Performed By: #### C BCA, BMP, PINR, 11401-8, 40658-8, 3016-3, 302-7 #### [facility] ([id number]) [address] [place] [address] 21706 #### HA1C #### [facility] ([id number]) [address], [address] [place] [address] Potassium [Moles/Vol] 3.7 mmol/L Normal 3.5-5.0 [facility] Comment on above: Performed By: #### C BCA, BMP, PINR, 25735-0, 00255-9, 3015-3, 3023-7 #### [facility] ([id number]) [address] [place] [address] 41130 #### HA1C #### [facility] ([id number]) [address], [address] [place] [address] Sodium [Moles/Vol] 136 mmol/L Normal 134-146 [facility] Comment on above: Performed By: #### C BCA, BMP, PINR, 76920-1, 31396-7, 3015-3, 3023-7 #### [facility] ([id number]) [address] [place] [address] 07802 #### HA1C #### [facility] ([id number]) [address], [address] [place] [address] Urea nitrogen [Mass/Vol] 23 mg/dL Normal 5-27 [facility] Comment on above: Performed By: #### C BCA, BMP, PINR, 10494-7, 79865-1, 3016-3, 302-7 #### [facility] ([id number]) [address] [place] [address] #### HA1C #### [facility] ([id number]) [address], [address] [place] [address] CBC AND AUTO DIFFon 04-17-20 24 ABSOLUTE BASOPHIL 0.0 X10E9/L Normal 0.0-0.2 [facility] Comment on above: Performed By: #### C BCA, BMP, PINR, 73642-7, 44355-3, 3016-3, 3024-7 #### [facility] ([id number]) [address] [place] [address] 38787 #### HA1C #### [facility] ([id number]) [address], [address] [place] [address] ABSOLUTE NEUTROPHIL 2.4 X10E9/L Normal 1.5-6.[address] [facility] Comment on above: Performed By: #### C BCA, BMP, PINR, 42887-0, 11207-5, 3016-3, 3024-7 #### [facility] ([id number]) [address] [place] [address] 20603 #### HA1C #### [facility] ([id number]) [address], [address] [place] [address] Basophils/100 WBC (Bld) 0.8 % Normal [facility] Comment on above: Performed By: #### C BCA, BMP, PINR, 90207-2, 17347-7, 3016-3, 3024-7 #### [facility] ([id number]) [address] [place] [address] 77754 #### HA1C #### [facility] ([id number]) [address], [address] [place] [address] Eosinophils (Bld) [#/Vol] 0.2 10*3/uL Normal 0.0-0.4 [facility] Comment on above: Performed By: #### C BCA, BMP, PINR, 52516-4, 53155-9, 3015-3, 7 #### [facility] ([id number]) [address] [place] [address] 18928 #### HA1C #### [facility] ([id number]) [address], [address] [place] [address] Eosinophils/100 WBC (Bld) 4.1 % Normal [facility] Comment on above: Performed By: #### C BCA, BMP, PINR, 62881-1, 17129-5, 3015-3, 7 #### [facility] ([id number]) [address] [place] [address] 39634 #### HA1C #### [facility] ([id number]) [address], [address] [place] [address] Erythrocyte distribution width (RBC) [Ratio] 13.6 % Normal 11.5-15.0 [facility] Comment on above: Performed By: #### C BCA, BMP, PINR, 69597-6, 47050-8, 3015-10, 7 #### [facility] ([id number]) [address] [place] [address] 73224 #### HA1C #### [facility] ([id number]) [address], [address] [place] [address] Hematocrit (Bld) [Volume fraction] 41.0 % Normal 39-49 [facility] Comment on above: Performed By: #### C BCA, BMP, PINR, 91392-2, 86720-7, 3015-3, 7 #### [facility] ([id number]) [address] [place] [address] 11537 #### HA1C #### [facility] ([id number]) [address], [address] [place] [address] Hemoglobin (Bld) [Mass/Vol] 14.0 g/dL Normal 13.0-17.0 [facility] Comment on above: Performed By: #### C BCA, BMP, PINR, 55406-4, 31403-5, 3016-3, 3024-7 #### [facility] ([id number]) [address] [place] [address] 07334 #### HA1C #### [facility] ([id number]) [address], [address] [place] [address] Lymphocytes (Bld) [#/Vol] 2.3 10*3/uL Normal 1.0-3.5 [facility] Comment on above: Performed By: #### C BCA, BMP, PINR, 63521-5, 07155-3, 6-3, 3023-7 #### [facility] ([id number]) [address] [place] [address] 30919 #### HA1C #### [facility] ([id number]) [address], [address] [place] [address] Lymphocytes/100 WBC (Bld) 41.5 % Normal [facility] Comment on above: Performed By: #### C BCA, BMP, PINR, 59089-8, 43463-3, 6-3, 3023-7 #### [facility] ([id number]) [address] [place] [address] 63501 #### HA1C #### [facility] ([id number]) [address], [address] [place] [address] MCH (RBC) [Entitic mass] 31.7 pg Normal 27-34 [facility] Comment on above: Performed By: #### C BCA, BMP, PINR, 30856-2, 23217-9, 3016-3, 3024-7 #### [facility] ([id number]) [address] [place] [address] 07151 #### HA1C #### [facility] ([id number]) [address], [address] [place] [address] MCHC (RBC) [Mass/Vol] 34.1 g/dL Normal 32-36 [facility] Comment on above: Performed By: #### C BCA, BMP, PINR, 51377-2, 83469-8, 3015-3, 7 #### [facility] ([id number]) [address] [place] [address] 97544 #### HA1C #### [facility] ([id number]) [address], [address] [place] [address] MCV (RBC) [Entitic vol] 93 fL Normal 80-100 [facility] Comment on above: Performed By: #### C BCA, BMP, PINR, 32280-3, 16893-1, 3015-3, 7 #### [facility] ([id number]) [address] [place] [address] 81135 #### HA1C #### [facility] ([id number]) [address], [address] [place] [address] Monocytes (Bld) [#/Vol] 0.5 10*3/uL Normal 0-0.9 [facility] Comment on above: Performed By: #### C BCA, BMP, PINR, 97184-4, 93719-9, 3015-3, 7 #### [facility] ([id number]) [address] [place] [address] 25902 #### HA1C #### [facility] ([id number]) [address], [address] [place] [address] Monocytes/100 WBC (Bld) 9.9 % Normal [facility] Comment on above: Performed By: #### C BCA, BMP, PINR, 88502-7, 23749-5, 3016-3, 3023-7 #### [facility] ([id number]) [address] [place] [address] 70798 #### HA1C #### [facility] ([id number]) [address], [address] [place] [address] Neutrophils/100 WBC (Bld) 43.7 % Normal [facility] Comment on above: Performed By: #### C BCA, BMP, PINR, 87658-5, 51883-9, 3015-3, 3024-02 #### [facility] ([id number]) [address] [place] [address] 89351 #### HA1C #### [facility] ([id number]) [address], [address] [place] [address] Platelet mean volume (Bld) [Entitic vol] 8.2 fL Normal 7-12 [facility] Comment on above: Performed By: #### C BCA, BMP, PINR, 71595-1, 85116-3, 3015-3, 3024-02 #### [facility] ([id number]) [address] [place] [address] 18157 #### HA1C #### [facility] ([id number]) [address] [place] [address] Platelets (Bld) [#/Vol] 150 10*3/uL Normal 150-450 [facility] Comment on above: Performed By: #### C BCA, BMP, PINR, 46923-4, 59346-5, 3015-3, 3024-02 #### [facility] ([id number]) [address] [place] [id number] #### HA1C #### [facility] ([id number]) [address], [address] [place] [address] RBC COUNT 4.41 X10E12/L Normal 4.10-5.70 [facility] Comment on above: Performed By: #### C BCA, BMP, PINR, 80815-4, 68251-5, 3016-3, 3024-7 #### [facility] ([id number]) [address] [place] [address] #### HA1C #### [facility] ([id number]) [address], [address] [place] [address] WBC (Bld) [#/Vol] 5.4 10*3/uL Normal 4.0-11.0 [facility] Comment on above: Performed By: #### C BCA, BMP, PINR, 77010-0, 01584-6, 3016-3, 3024-7 #### [facility] ([id number]) [address] [place] [address] #### HA1C #### [facility] ([id number]) [address], [address] [place] [address] CT CTA CAROTIDon 04-17-[address] CTA CAROTID History: Neuro deficit, acute, stroke suspected. Slurred speech Exam/Technique: CT angiogram performed following intravenous administration of 100 mL of Omnipaque 350. Coronal and sagittal and 3-D volume rendered maximum intensity projection images generated and reviewed under concurrent physician supervision. Automated exposure control utilized. The [place] Symptomatic Carotid Endarterectomy Trial (NASCET) method for calculating the degree of stenosis was utilized for stenosis measurements. CT does automated exposure control was utilized. Comparison: None is available Findings: Aortic arch is grossly unremarkable. Right innominate artery is widely patent. There is mild tortuosity at right common carotid artery origin with no hemodynamically significant stenosis. Cervical segment of the internal carotid artery and external carotid arteries are widely patent and grossly unremarkable. Right subclavian artery is widely patent. Right vertebral artery is widely patent. Left common carotid artery and external carotid arteries are widely patent and grossly unremarkable. There is eccentric calcified intimal plaque at the origin of the internal carotid artery of no hemodynamic significance. The remaining cervical segment is unremarkable. Left subclavian artery is widely patent. There is moderate to severe stenosis at the left vertebral artery origin secondary to calcified intimal plaque. The remaining vertebral artery is unremarkable. There are multilevel degenerative disc disease primarily at C5-C6 through C7-T1. There are multilevel facet joint disease worse at C4-C5. IMPRESSION: Moderate to severe stenosis at the left vertebral artery origin secondary to calcified intimal plaque. Eccentric calcified intimal plaque at the left internal carotid artery origin of no hemodynamic significance. All CT scans at this facility use dose modulation, iterative reconstruction, and/or weight based dosing when appropriate to reduce radiation dose to as low as reasonably achievable. Finalized by Kelsie Armenta MD on 04/17/2024 9:08 AM Normal [facility] CT CTA HEADon 04-17-[address] CTA HEAD CT angiogram head with contrast History: Stroke, neurologic deficit. Slurred speech. Technique: CT angiogram of the head was performed following intravenous administration of 100 cc Omnipaque 350 nonionic intravenous contrast. 3-D maximum intensity projection images generated and reviewed under concurrent physician supervision. Automated exposure control was utilized. Arterial blood flow was measured to assist the stroke clinical team in the diagnosis of large vessel occlusion in patients undergoing screening for acute ischemic stroke using Rapid AI software when clinically indicated. Findings: Head and neck dictated separately. Unremarkable visualized intracranial internal carotid arteries, anterior, middle, left posterior cerebral arteries. 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 Unremarkable vertebral, basilar arteries. 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 Unremarkable appearance of the orbits, visualized suprahyoid neck, scalp, brain parenchyma [which is suboptimally assessed]. Impression: No acute large vessel occlusion the major [place] of [place] arterial structures. If there is persistent concern for ischemia, recommend MR. All CT scans at this facility use dose modulation, iterative reconstruction, and/or weight based dosing when appropriate to reduce radiation dose to as low as reasonably achievable. Finalized by Lázaro Solomon MD on 04/17/2024 9:00 AM Normal [facility] FREE T4on 04-17-2024 Free T4 [Mass/Vol] 0.91 ng/dL Normal 0.61-1.60 [facility] Comment on above: Performed By: #### C BCA, BMP, PINR, 09775-3, 04077-7, 3015-3, 7 #### [facility] ([id number]) [address] [place] [address] #### HA1C #### [facility] ([id number]) [address], [address] [place] [address] Glucose Glucometer (BldC) [M ass/Vol]on 04-17-2024 Glucose [Mass/Vol] 94 mg/dL Normal 65-99 [facility] HGB A1C (GLYCO-HGB)on 2023 Glucose [Mass/Vol] 134 mg/dL Normal [facility] Comment on above: Performed By: #### C BCA, BMP, PINR, 27218-8, 93340-8, 3, 7 ####[facility] ([id number])[address] [place] [address]#### HA1C ####[facility] ([id number])[address] [facility], [address] [place] [address] HbA1c (Bld) [Mass fraction] 6.3 % High 4.4-5.6 [facility] Comment on above: Result Comment: NOTE ADA Guidelines Result HgbA1c Normal : less than 5.7 % Prediabetes : 5.7 % to 6.4 % Diabetes : > 6.4 % Use with caution in patients with abnormal hemoglobin variants as the half-life of red blood cells and in vivo glycation rates are affected. Performed By: #### C BCA, BMP, PINR, 54173-3, 96232-4, 3015-3, 7 ####[facility] ([id number])[address] [place] [address] 94888#### HA1C ####[facility] ([id number])[address] [place] [address], [address] [address] Lipid 1996 panelon 4 Cholesterol [Mass/Vol] 121 mg/dL Low 150-200 [facility] Comment on above: Performed By: #### 8 9579-7 ####[facility] ([id number])[address] [place] [address]#### 52750-1, 63792-0, 53614-2 ####[facility] ([id number])[address] [place] [address] Cholesterol in HDL [Mass/Vol] 34 mg/dL Low >39 [facility] Comment on above: Result Comment: HDL <40 mg/dL - High Risk HDL > or = 40mg/dL- Desirable HDL >60 mg/dL - Negative Risk Performed By: #### 8 9579-7 ####[facility] ([id number])[address] [place] [address]#### 54746-5, 45376-0, 42782-8 ####[facility] ([id number])[address] [place] [address] Cholesterol in LDL [Mass/Vol] 43 mg/dL Normal <130 [facility] Comment on above: Result Comment: LDL <100 mg/dL - Desirable LDL >160 mg/dL - High Risk Performed By: #### 8 9579-7 ####[facility] ([id number])[address] [place] [address]#### 45708-7, 47277-2, 44641-6 ####[facility] ([id number])[address], [address] [place] [address] Cholesterol in VLDL [Mass/Vol] 44 mg/dL High 0-30 [facility] Comment on above: Performed By: #### 8 9579-7 ####[facility] ([id number])[address] [place] [address]37#### 09304-6, 17314-9, 37059-2 ####[facility] ([id number])[address], [address] [place] [address] CHOLESTEROL:HDL 3.6 Normal 1.0-5.0 [facility] Comment on above: Performed By: #### 8 9579-7 ####[facility] ([id number])[address] [place] [address] 31646#### 54210-4, 18367-8, 78663-9 ####[facility] ([id number])[address], [address] [place] [address] Triglyceride [Mass/Vol] 218 mg/dL High 27-150 [facility] Comment on above: Performed By: #### 8 9579-7 ####[facility] ([id number])[address] [place] [address]185#### 39382-5, 93558-1, 93786-5 ####[facility] ([id number])[address], [address] [place] [address]06 MR BRAIN WO CONTon 4 MR BRAIN WO CONT MR BRAIN WO CONT STUDY: MR BRAIN WO CONT INDICATION: Neuro deficit, acute, stroke suspected. TECHNIQUE: * Routine multiplanar multisequence MR imaging of the brain was performed without intravenous contrast. FINDINGS: Slight restricted diffusion in the left caudate/posterior basal ganglia which may reflect late acute or subacute lenticulostriate infarct. No hemorrhagic transformation, mass effect, midline shift or extra axial fluid collection. Ksuu-na-yvzdastv central greater than peripheral volume loss. Partially empty sella. Moderate burden of periventricular white matter changes suggestive of chronic microvascular ischemic changes. Prominent perivascular spaces in the basal ganglia. Probable remote lacunar infarct in the right cerebellar hemisphere and left periventricular white matter. Bilateral lens replacements. Paranasal sinuses are clear. Bilateral mastoid fluid. 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 No hemorrhagic transformation mass effect. * Moderate burden of chronic microvascular ischemic changes with additional remote ischemic changes as described. THIS REPORT CONTAINS A SIGNIFICANT RESULT AND/OR RECOMMENDATION, WHICH REQUIRES THE ATTENTION OF THE LICENSED CAREGIVER RESPONSIBLE FOR THIS PATIENT. THEREFORE, I SPECIFICALLY DESIGNATED THIS REPORT TO BE TELEPHONED BY THE RADIOLOGY DEPARTMENT. FINDINGS WERE INSTRUCTED TO BE CALLED TO THE CLINICAL SERVICE ON 04/17/2024 12:21 PM Finalized by Chi Hendrix on 04/17/2024 12:22 PM Normal [facility] Nuclear Ab IA Ql (S)on 04-17 [place] Screen w/reflex Negative Normal NEG [facility] Comment on above: Result Comment: Testing performed using multiplex flow immunoassay. Eleven different antigens associated with systemic autoimmune diseases (dsDNA,Sm,Sm/OFFICE AUTOMATION CLERK,OFFICE AUTOMATION CLERK,Chromatin, SSA,SSB,Vesna-1,Scl70,Ribo P,Centromere B) are included in this screening test. Performed By: #### 8 9579-7 ####[facility] ([id number])[address] [place] [address]#### 14121-1, 16575-2, 86633-3 ####[facility] ([id number])[address] [facility], [address] [place] [address] PROTIME AND INRon 04-17-2024 INR Coag (PPP) [Relative time] 1.2 {INR} High 0.8-1.1 [facility] Comment on above: Performed By: #### C BCA, BMP, PINR, 78199-7, 51983-7, 3016-3, 302-7 #### [facility] ([id number]) [address] [place] [address] #### HA1C #### [facility] ([id number]) [address], [address] [place] [address] PT Coag (PPP) [Time] 13.6 s High 9.8-13.[address] [facility] Comment on above: Result Comment: NEW REFERENCE RANGE Performed By: #### C BCA, BMP, PINR, 72669-0, 46686-3, 6-3, 7 #### [facility] ([id number]) [address] [place] [address] #### HA1C #### [facility] ([id number]) [address], [address] [place] [address] Rheumatoid factor Nephelomet ry Qn (S)on 04-17-2024 RHEUMATOID FACTOR 36 IU/mL High <20 [facility] Comment on above: Performed By: #### 8 9579-7 ####[facility] ([id number])[address] [place] [address] 94571#### 92293-1, 83575-6, 97963-1 ####[facility] ([id number])[address], [address] [place] [address] TSH Qnon 04-17-2024 TSH 1.23 uIU/mL Normal 0.49-4.67 [facility] Comment on above: Performed By: #### C BCA, BMP, PINR, 01452-2, 76047-6, 3016-3, 3024-7 #### [facility] ([id number]) [address] [place] [address] #### HA1C #### [facility] ([id number]) [address] [place] [address] [address] [place] [address] Troponin I.cardiac High sens itivity method [Mass/Vol]on 04-17-2024 1 HOUR TROP I, HIGH SENSITIVITY 8 ng/L Normal <21 [facility] Comment on above: Performed By: #### 8 9579-7 ####[facility] ([id number])[address] [place] [address] 11573#### 94052-9, 09201-4, 96174-1 ####[facility] ([id number])[address] [place] [address], [address] [address] TROPONIN I, HIGH SENSITIVITY 7 ng/L Normal <21 [facility] Comment on above: Performed By: #### C BCA, BMP, PINR, 22904-2, 92986-8, 3016-3, 3024-7 #### [facility] ([id number]) [address] [place] [address] #### HA1C #### [facility] ([id number]) [address] [place] [address] aPTT Coag (PPP) [Time]on aPTT Coag (Bld) [Time] 29 s Normal 26-37 [facility] Comment on above: Result Comment: NEW REFERENCE RANGE Performed By: #### C BCA, BMP, PINR, 90814-2, 87757-1, 3016-3, 3024-7 #### [facility] ([id number]) [address] [place] [address]61 #### HA1C #### [facility] ([id number]) [address] [place] [address], [address] [place] [address] Urology Office/Clinic Noteon 03-20-2024 Urology Office/Clinic Note Urology Office/Clinic Note Chief Complaint ER f/u *Urinary Retention HPI Staff PRW pt Last seen in our office by INEZ 02/11/24 DX: BPH, Urethral Stricture, Gross Hematuria & UTI PVR at that time 108ml Here today to follow up to [facility] ER 03/11/24 CC: Urinary Retention PVR [...] (cc): 02/11/24 - 108 Pt presented to [facility] ER 03/11/24 with UR. PVR >230 [...] visit. Follo (more content not included)... Normal [facility] Comment on above: Result Comment: Elec tronically [...] solution) fluticasone nasal (fluticasone Nasal 0.05 mg/inh [place]) hyoscyamine (hyoscyamine 0.125 mg sublingual Tab) icosapent [...] APRN, [place] X Where: [facility] [address] [address]- You Need to Schedule the Following Appointments Follow Up with KIM Lino APRN, Lazara Echavarria, PARVIN, URL When: Where: Medications What How Much [...] fluticasone nasal (fluticasone Nasal 0.05 mg/ inh [place]) instill 1 spray into each nostril once [...] urinary ret (more content not included)... Normal [facility] Coding Summary.on 02-19-2024 Coding Summary. PWEQLtyq59EVc6wMp+PG hlYWQ+LW4NPGYjZ52obY AehA2fH4CSGZjCTmfxLJ PGZMmBUmUdnyIvDM3wgU NjZXJu IC8+CZ9zYJAmBdjcsMFu g9I3xEW5H05jzg7uOZnf vEY8YRAaNvYupunfm8yz sXu9RRwrRfurSjFo XCRwlO33UHC7kU27Km08 aGWxaLNoq4ungIx5XmEl WLUsSCL9eEumDPthb9Kc UXVtO71fkJNog5W7 IGNvbGxhcHNlOyBlbXB0 nG7dZKofzpear1htzsio Ivq9fq89tADbr0I8vAZ3 V2NkjdK0BSNfkLJc ZrulvAVXhU4uykzma3kr ojrnFxHeSLVtMRd9YPy4 MBIioPdiIiVdTM33ZUC4 NIUhmiKfE5PuHYNi cYcfTwO6h8M6Ey9LB8QO YndhK9IVQYEJOFbvvRG+ FL17gi48S8UdCkgrIax2 DEInJJR3bYT1yT8s TYPqJNhph5I3cQZ6V5Zv diVmjw7as4upTNCgPPrc Q50maZLuy8B1JCUzeBG6 PRXgwDmuEvYyjI97 Oyc+ZYIwcEpso5JuXqek f5whd8ypkZq4IpbeEBNz yePpqZyvCUX8m3JoJx1l MTZnySI9aWJ6uL3g LfBfNwI2JTdrI255ImZw eQPpYwtpS19vS8CrtQR+ DJJeRfz7TYVqzIscWT1x R9KqOXDkhsiisQOq vWvlTQ8bNYFehjleNCWm gL0nMEKqQ5t9AbBlWsJ1 TQscR0GpNZNzvcgoRb58 yG2xUzWnScY7QGgs H3MpymW1SMOhzVDkOTgn MUM4O38pt1Y3NUMsLXYw XUU4iYS9xR1tgNbrxhrp bGVmdDsgdmVydGlj SJytBWbiL416CKMcvVzz PkNvZGluZyBEYXRlOiAg MDYvMjYvMjAyNDwvdGQ+ NWGqFZT0aNlpJIBi tHIqKLblZo8fbGdihTgs XM4pEDSzrdbsGEAnmZ0t ERYhcCBtfEkuFF1pAACl yudbj849RsSxSJB3 ZHZxgZYtS5LtmJ9jNaLd OJObJZOsY3PeiYMjWHiv R703JSogClH6ASFnqeIf O2CnEJQecFpoJiQ5 m5R9Nd9Kl7FqpwrrX6Rc oXUgVhWxUvgaKRo2E2Dd PjwvdHI+LD66SOZdPX04 ETd0TVU6wJwoLVrb GETwW7LuvA4dCwXgOTZn ZGRkOyc+PHRhYmxlIHdp ZHRoPScxMDAlJyBzdHls AF9nHg4eDEJqLHWp rIuyeEToFySvt8vnYAKr EEwbXS1rlWplK7XmqOZ3 VSCow4s3Ph49T49zM7Nu dXA+FNZsnDK7rFI8 wP4eXmEqMpX5YLovN811 VaJjgGKnNgwnb4wxh0yz hMd3QqM0XEXqmtQloZhg YMP3g2PwQr31Q84e IHdpZHRoPSIxNSUiIHZh yAxsvo4lkH7bLk2+PGNv yUG1eKA1zH2rJmYeUnZ8 ZCibG785KfXshIBj Zpvjv7wej9ohcXo4XxEc ZCHysbJrwUdsITZ9b8Wa Wk95F6CtzBeqq7GoGiz3 qw46iJCwj7M3iFU6 F1HeLZEnzuikyRZhwDgs MJ1gRCXszarpJECeyB5b ATMiJ6a1AsAfNzU8ZXbc T6SoaaY1YSOhnVIn XKXqqIKOuM5utgikt9wo ouxgRqCxVBRzUEc3TVl8 RUNmfRuvSpAfEQI7OaI3 YDY7xTIvlD0bmYrl eocfnG8hOpx+DQR8lFLb fTYHLF7iVbfpmOO+PHRk OVY2dHmxRNypHJPomA4o TOCqO4y4InZdRfE4 CDbrT1PejoU3PRWndPIb OASmxUFUvC6xfkdps9nt cpvnSnKfGJJbXYp0ESa2 LWFsaWduOiBsZWZ0 MxA4FDY7tSOkgW4cnQov lfosyO5lZna+QmlydGgg XTB4BQt1L7RfIkl7HQXl iGvpQZ7ieXBiMIrt Ci3gqSpzdAhiKK4nANPc qdomk864XhUnj7kuRMFd fKUaUOnvDGX7W62pi2A6 EFDoRLIzUTI6pLR5 cR8xdMisnimawLKbdDze yyZdaJtlVMeoLSfzH784 PVHwfBwqVlHjPFg4P2Ax Kue4MPRnoIsfVS4y oEStEHgjBz8qxXszwSru ZK3iGVPspmexz660KeMe z0wpCVLbfGYlVCaiXBX4 Q71te9Y0FMKkQJRo GCJ0nPE4kL4ocLhoylrv bGVmdDsgdmVydGljYWwt TJljB874REMnuBlsGsBp fMw5P9MlSuk1BVFe rCbyXF2stRFdDUpyLd3y uLsgxJfwHQ6jJVNexovb q749ShXjk0znMHVftMXy YQhtWRO0C63em2N0 LBVyEJAjVFE2bEO9lF6q bGlnbjogbGVmdDsgdmVy kCoqPMwzRCxtG762HRTa cDsnPlBhdGllbnQg UUrsTLv8C8ZxBctneWS+ ZH36FWPwIB13iVVtfKQf v6rqnSf0JuJgVKNoEYM8 tZvkSAkov2RsDVEj Y57yeUHes5K6SJIsxDvs yRLtAaSsuSR5dW1jDTaq pmchr7dpjgmnXjzuc7gg qk51qY96Z66uCXia ZHRoPSIzMCUiIHZhbGln vb8buN3rGk4+PGNvbCB3 mUP3sC9sWEKnIyE8DJew A575EgVxtWAuYiec s9efv4wxcZy5KmG7FYWa bfKjvXxmFJR8q1IhEn85 K96wWGavZRIrGWMlZUJw GLBjaWfaus8byN2f Ii8+BPCtpEI1hBC7gP9o ThQhGxP7PHvmW756SwGl mNEtZszcV08xA2ZbmWX+ XLZjLnk5VGBghSmo IE9vpJQeJOdoJi5lEQE1 ZmPzHgDjXAvzC5IpRNMg giniqvpjhVZ6NWPgOSYk nF58Es7vwIrrTWMy oCXPaI5dixslh4omouvq ShUkLHIeVGe3MJf3MLBb tXzjFzOaJQK2PeT8FFE5 qPHznK0foDuscmsw eT2kO6ExIVWknweqAx09 eQ3aAyTdHfU2OPjvWry+ N8ZNOE2PBPEET795D3Ab Cws2FXRncWqdJI4l oQOiPOafTu0odHjclEwz HN4lOPGttrppEGUwaF8j GAAkvKZnmGtwLZ8oHMIp pinod673ShPjRDO7 UMVkoIVyN4FjtY8vUtEs KIKlCVWpZ2WkiGBlPDzn B263PTgtLcJ1WDDjsuNv X0IuKMGgkBvgZaZ2 v6D3Ty7zGC6wHD9fMFQf TB24LH26tJUdt3A5hUR8 U4AxSBHftdqxnzrxiAC9 KSBlYFCdrR28eUWq KXhzVu9wn8X6l038SPYm GZSmiD46Us0kaRiyPUOx yQOVwQ5acpcfn9omaboe ZoCxPIIvZJr1PTc2 WXOqgZthSuKjNRQ8IbW9 SND7fVJxoU1ebIslregu xQ3oDxy+ODEgWWVhcnM8 M0ShOmh1XIBoiLuy FQ3bbEErOAiwLy9kpVhs qEwnAC5pKTBrcvwzLNBu fP0bXTAuwRPzaFheGZ8o YKRxkgaqv026YyAc BHG6IVHqtNSjK9XknU5t EvEwEVSpWOMrZ0RbpUCu JEdmM881CJykJkO2DACw waJsN6BkIHCblYjx RqW8s8H5Cy5LZKcqSC19 BY60pGMqi0J2rRQ8L3Im DXBshhfpusfdvHH2GFCa IOAvdC00sRNrHDiz Fk4kc7T6c383ISQtBPXp aP89Ig6ufSqlNHDtcAWV sP0aceyxs2qwqrvnJvAy SJDyXOj8MNq5IYUe lYurDbJnGBF4NwM7PSX0 qPKvfZ3uwSrjyyjvuC0r Oyc+NJLqGIAjc0Zan0So VL38IQ88Q4DwDctg dGFibGU+PHRhYmxlIHdp ZHRoPScxMDAlJyBzdHls NC9yOr0uKPLnARJznRvz zQAkNlPci8hbBFSz TKztXJ1ylMdyK5QsiGU9 QYQnk4t5Ru29B80vD4Mw dXA+ROWmuUS8zXO8wI4b VoYjTtG8URjzF596 IlSuoEKmFhigt3cle7xj iLp7PsXqGGRydxBvbTyc YIP9p8XtBe22A79xOKcx ZHRoPSIyMCUiIHZh cZwnwv8ttG1tOs8+PGNv wIO9wKD7hO3oIzOlXbI1 SBbxY068QmJilLBvQdqv U24dN2LfrHN+PHRy Whw5OZKryRpsCH7okDFu FLkxJc2nLVT5WfEmJcNb ANfoU4FfVWTvpidtgkeb hZV7ZWEvKTKlfN09 Zg9wvGzmLz1eMDElCVA0 JHWmhZKdD8NppE9kNwQt LQKtLYOcI9VkrTItAXrl Z950OCsoPeG2IOBg fxFrL1GhMFQxiBolTyD6 f0L5Be2NoOmywQKyVY2j WlMxRMo2U9CrNal4VTNx uAleKA8qrHAqIOjf Cm9aeHxkhEtxHY4uTEVw zkbum141SkAhe1sbSXMa qTAvMBgsSQJ9X53mm1R4 WZFkSNPuFAV5qHR6 dF5clMwvpioahICsrZsa rqTgkVuxHUoxZRtiQ197 MJYfxGpiJzQGGdi4M9Lp Ngq5PGCntCkySX2n vOYkKFaxWz3smCrcmLmw QO4qRDBnbpvcc896AuAg x2cfFLZirEHeRTszVHC0 D52ms6Q3UHIkFZLr TVS7xVG0fR2swZohhyrc bGVmdDsgdmVydGljYWwt NOmtM018BLWlgOlvCx3U Dby2F9RmJbf5NKJi gQyfYC9umYGpKMkqJe2a mSqjnYbnDO4lYECqwusx e578VlLrn8seUHGetBEo NAuiHKT7L49zx2C2 GKYnIWKrWLH2rRT9nM0z bGlnbjogbGVmdDsgdmVy qXqaHQbyFIpaZ573NXCt cDsnPlBheWVyOjwv dGQ+ZY91fc73T2OpRlap Mks6ZLEsOQB7jIQ6xU3g PXDdIQqvm6D4wHO5M5Mf zpTnmv6ow8vcCRFk EQymT84gxTSov (more content not included)... Normal [facility] C Urineon 02-13-2024 Bacteria identified Cx Nom (U) Microbiology PROCEDURE: Urine Culture [R1] SOURCE: U Random BODY SITE: COLLECTED DATE/TIME: 02/11/2024 10:06 EDT RECEIVED DATE/TIME: 02/11/2024 18:24 EDT START DATE/TIME: 02/11/2024 18:24 EDT FREE TEXT SOURCE: KIM Lino APRN, Zoie TAR DISTRIBUTOR OPERATOR, FLIGHT ENGINEER INSTRUCTOR-C, Lazara X Lazara X FINAL REPORTS Final [...] test was performed at: [facility], [address] [place] [address], [address]- , [place], [facility] Comment on above: Performed By: #### 2 [id number] #### [facility] [address] [place] [address] Screenson 02-12-2024 Screens [id number] 7#[id number] Normal [facility] Ambulatory Visit Summaryon 0 02-11-2024 Ambulatory Visit [...] Urology [address], [place] [phone] Medications What How Much When Instructions Unchanged [...] you for choosing us for your care. [facility] Patient Educationon 02-11-20 Patient Education Urology Hematuria, [...] these instructions at home: Medicines ? Take ouop-yis-yrmfybr and prescription medicines only as told by [...] the blood stops without treatment. ? Take cryl-hkl-zpwbyjt and prescription medicines only as told by your health care provider. ? Drink enough fluid to keep your urine pale yellow. This information is not intended to replace advice given to you by your health care provider. Make sure you discuss any questions you have with your health care provider. Document Revised: 04/12/2021 Document Reviewed: 04/12/2021 [employer] Patient Education ? [address]22 [employer]. Benign Prostatic Hyperplasia Benign prostatic hyperplasia (BPH) [...] the nig (more content not included)... Normal [facility] Urology Office/Clinic Noteon 02-11-2024 Urology Office/Clinic Note [...] with voice recognition artificial intelligence software, specifically [employer] and or [employer]. Substitutions may have occurred due to the [...] Urnls Dip Stick Auto w/o Microscopy POC 29797 2. 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 Normal [facility] Comment on above: Result Comment: Elec tronically Signed By: KIM Lino APRN, Lazara Echavarria\.br\Date and Time Signed: 02/11/24 10:41 EDT COVID/FLU RT-PCRon 3 SARS-CoV-2 (COVID-19) RNA TERRIE+probe Ql (Unsp spec) Positive [facility] Other COVID/FLU RT-PCR Negative emids [facility] Other XR KNEE RT 3Von 01-23-2023 XR KNEE RT 3V EXAM: XR KNEE RT 3V HISTORY: Osteoarthritis of knee COMPARISON: None TECHNIQUE: 3 views FINDINGS: No acute fracture or dislocation. Moderate to severe degenerative changes. Unremarkable soft tissues. IMPRESSION: Moderate to severe degenerative changes. Electronically authenticated by: CALVIN BARNES Date: 2023-01-23 13:29 Normal [facility] INSULINon 09-25-2022 Insulin 6.0 uIU/mL Normal 2.6-24.9 [facility] Comment on above: Performed By: #### I NSULIN #### [facility] [address] [place] [address] Dr. Wally Zapien BNPon 09-24-2022 Natriuretic peptide B (Bld) [Mass/Vol] 110.0 pg/mL Normal <=1,800.0 [facility] Comment on above: Performed By: #### U RCX #### [facility] [address] [place] [address] Dr. Wally Zapien CBC AUTO DIFFon 09-24-2022 BASO # 0.0 103/ul Normal 0.0-0.1 [facility] Comment on above: Performed By: #### C BC #### [facility] [address] [place] [address] Dr. Wally Zapien Basophils/100 WBC (Bld) 1.0 % Normal 0.2-2.0 [facility] Comment on above: Performed By: #### C BC #### [facility] [address] [place] [address] Dr. Wally Zapien EO # 0.2 103/ul Normal 0.0-0.7 [facility] Comment on above: Performed By: #### C BC #### [facility] [address] [place] [address] Dr. Wally Zapien Eosinophils/100 WBC (Bld) 4.2 % Normal 0.9-7.0 [facility] Comment on above: Performed By: #### C BC #### [facility] [address] [place] [address] Dr. Wally Zapien Erythrocyte distribution width (RBC) [Ratio] 12.5 % Normal 11.0-15.0 [facility] Comment on above: Performed By: #### C BC #### [facility] [address] [place] [address] Dr. Wally Zapien Hematocrit (Bld) [Volume fraction] 43.7 % Normal 42.0-54.0 [facility] Comment on above: Performed By: #### C BC #### [facility] [address] [place] [address] Dr. Wally Zapien Hemoglobin (Bld) [Mass/Vol] 15.4 g/dL Normal 14.0-18.0 [facility] Comment on above: Performed By: #### C BC #### [facility] [address] [place] [address] Dr. Wally Zapien IG # 0.02 10e3/ul Normal 0.00-0.03 [facility] Comment on above: Performed By: #### C BC #### [facility] [address] [place] [address] Dr. Wally Zapien IG % 0.5 % Normal 0.0-0.5 [facility] Comment on above: Performed By: #### C BC #### [facility] [address] [place] [address] Dr. Wally Zapien LYMPH # 1.7 103/ul Normal 1.2-3.8 [facility] Comment on above: Performed By: #### C BC #### [facility] [address] [place] [address] Dr. Wally Zapien Lymphocytes/100 WBC (Bld) 42.6 % Normal 20.5-60.0 [facility] [facility] Comment [facility] above: Performed By: #### C BC #### [facility] [address] [place] [address] Dr. Wally Zapien MANUAL DIFF REQ NO Normal [facility] Comment on above: Performed By: #### C BC #### [facility] [address] [place] [address] Dr. Wally Zapien MCH (RBC) [Entitic mass] 31.6 pg Normal 25.9-34.0 [facility] Comment on above: Performed By: #### C BC #### [facility] [address] [place] [address] Dr. Wally Zapien MCHC (RBC) [Mass/Vol] 35.2 g/dL Normal 29.9-35.2 [facility] Comment on above: Performed By: #### C BC #### [facility] [address] [place] [address] Dr. Wally Zapien MCV (RBC) [Entitic vol] 89.5 fL Normal 80.0-94.0 [facility] Comment on above: Performed By: #### C BC #### [facility] [address] [place] [address] Dr. Wally Zapien MONO # 0.4 103/ul Normal 0.3-0.8 [facility] Comment on above: Performed By: #### C BC #### [facility] [address] [place] [address] Dr. Wally Zapien Monocytes/100 WBC (Bld) 9.2 % Normal 1.7-12.0 [facility] Comment on above: Performed By: #### C BC #### [facility] [address] [address] [address] Wally Zapien NEUT # 1.7 103/ul Normal 1.4-6.5 [facility] Comment on above: Performed By: #### C BC #### [facility] [address] [place] [address] Dr. Wally Zapien Neutrophils/100 WBC (Bld) 42.5 % Critically low 43.0-75.0 [facility] Comment on above: Performed By: #### C BC #### [facility] [address] [place] [address] Dr. Wally Zapien Platelet mean volume (Bld) [Entitic vol] 9.9 fL Normal 9.5-13.5 [facility] Comment on above: Performed By: #### C BC #### [facility] [address] [place] [address] Dr. Wally Zapien PLT 149 103/ul Critically low 150-450 [facility] Comment on above: Performed By: #### C BC #### [facility] [address] [place] [address] Dr. Wally Zapien RBC 4.88 106/ul Normal 4.70-6.10 [facility] Comment on above: Performed By: #### C BC #### [facility] [address] [place] [address] Dr. Wally Zapien WBC 4.0 103/ul Normal 4.0-11.0 [facility] Comment on above: Performed By: #### C BC #### [facility] [address] [place] [address] Dr. Wally Zapien CULTURE URINEon 09-24-2022 CULTURE URINE Culture Observations: LIGHT GROWTH OF MIXED SKIN GENNA. NO POTENTIAL PATHOGENS SEEN. Normal [facility] Comment on above: Performed By: #### U RCX #### [facility] [address] [address] [address] Wally Zapien FREE THYROXINE INDEX T7on FTI 2.52 Normal 1.30-4.50 [facility] Comment on above: Performed By: #### U RCX #### [facility] [address] [place] [address] Dr. Wally Zapien T3U 36.0 % Normal 33.0-40.0 [facility] Comment on above: Performed By: #### U RCX #### [facility] [address] [place] [address] Dr. Wally Zapien T4 [Mass/Vol] 7.00 ug/dL Normal 4.50-12.10 [facility] Comment on above: Performed By: #### U RCX #### [facility] [address] [place] [address] Dr. Wally Zapien GLYCOHEMOGLOBIN A1Con 2022 ADA RECOMMENDATION SEE BELOW Normal [facility] Comment on above: Result Comment: ADA RECOMMENDED LIMIT 4.0 - 6.0 ADA THERAPEUTIC TARGET < 7.0 ACTION SUGGESTED > 7.0 Performed By: #### A 1C #### [facility] [address] [place] [address] Dr. Wally Zapien Glucose [Mass/Vol] 123 mg/dL Normal [facility] Comment on above: Performed By: #### A 1C #### [facility] [address] [place] [address] Dr. Wally Zapien HbA1c (Bld) [Mass fraction] 5.9 % Normal 4.5-6.2 [facility] Comment on above: Performed By: #### A 1C #### [facility] [address] [place] [address] Dr. Wally Zapien LIPID PROFILEon 09-24-2022 CHOL-HDL RATIO NORM SEE BELOW Normal [facility] Comment on above: Result Comment: 3.3 - 4.4 LOW RISK 4.4 - 7.1 AVERAGE RISK 7.1 - 11.0 MODERATE RISK >11.0 HIGH RISK Performed By: #### U RCX #### [facility] [address] [address] [address] Wally Zapien Cholesterol [Mass/Vol] 117 mg/dL Normal <=200 [facility] Comment on above: Performed By: #### U RCX #### [facility] [address] [address] [address] Wally Zapien Cholesterol in HDL [Mass/Vol] 38 mg/dL Critically low 40-60 [facility] Comment on above: Performed By: #### U RCX #### [facility] [address] [address] [address] Wally Zapien Cholesterol in LDL [Mass/Vol] 32.6 mg/dL Normal [facility] Comment on above: Performed By: #### U RCX #### [facility] [address] [address] [address] Wally Zapien Cholesterol.total/Ch olesterol in HDL [Mass ratio] 3.1 {ratio} Normal [facility] Comment on above: Performed By: #### U RCX #### [facility] [address] [address] [address] Wally Zapien HDL NORMAL > or = 60 mg/dl - LOW CARDIOVASCULAR RISK <40 mg/dl - HIGH CARDIOVASCULAR RISK Normal [facility] Comment on above: Performed By: #### U RCX #### [facility] [address] [address] [address] Wally Zapien LDL CALC NORMAL SEE BELOW Normal [facility] Comment on above: Result Comment: <100 mg/dl OPTIMAL 100 - 129 mg/dl NEAR OR ABOVE OPTIMAL 130 - 159 mg/dl BORDERLINE HIGH 160 - 189 mg/dl HIGH >190 mg/dl VERY HIGH Performed By: #### U RCX #### [facility] [address] [address] [address] Wally Zapien Triglyceride [Mass/Vol] 232 mg/dL Critically high <=150 [facility] Comment on above: Performed By: #### U RCX #### [facility] [address] [address] [address] Wally Zapien VLDL CALC 46.4 mg/dL Normal [facility] Comment on above: Performed By: #### U RCX #### [facility] [address] [place] [address] Dr. Wally Zapien PROF 14(COMP METB)on 023 Albumin [Mass/Vol] 3.8 g/dL Normal 3.4-5.0 [facility] Comment on above: Performed By: #### B PROSECUTING ATTORNEY, T7, LIPID, TSH, CMP, URIC #### [facility] [address] [place] [address] Dr. Wally Zapien Albumin/Globulin [Mass ratio] 1.2 {ratio} Normal [facility] Comment on above: Performed By: #### B PROSECUTING ATTORNEY, T7, LIPID, TSH, CMP, URIC #### [facility] [address] [place] [address] Dr. Wally Zapien ALP [Catalytic activity/Vol] 80 U/L Normal 46-116 [facility] Comment on above: Performed By: #### B PROSECUTING ATTORNEY, T7, LIPID, TSH, CMP, URIC #### [facility] [address] [place] [address] Dr. Wally Zapien ALT [Catalytic activity/Vol] 34 U/L Normal 16-63 [facility] Comment on above: Performed By: #### B PROSECUTING ATTORNEY, T7, LIPID, TSH, CMP, URIC #### [facility] [address] [place] [address] Dr. Wally Zapien Anion gap [Moles/Vol] 11.3 mmol/L Normal [facility] Comment on above: Performed By: #### B PROSECUTING ATTORNEY, T7, LIPID, TSH, CMP, URIC #### [facility] [address] [place] [address] Dr. Wally Zapien AST [Catalytic activity/Vol] 24 U/L Normal 15-37 [facility] Comment on above: Performed By: #### B PROSECUTING ATTORNEY, T7, LIPID, TSH, CMP, URIC #### [facility] [address] [place] [address] Dr. Wally Zapien Bilirubin [Mass/Vol] 1.0 mg/dL Normal 0.2-1.0 [facility] Comment on above: Performed By: #### B PROSECUTING ATTORNEY, T7, LIPID, TSH, CMP, URIC #### [facility] [address] [place] [address] Dr. Wally Zapien Calcium [Mass/Vol] 8.5 mg/dL Normal 8.5-10.1 [facility] Comment on above: Performed By: #### B PROSECUTING ATTORNEY, T7, LIPID, TSH, CMP, URIC #### [facility] [address] [place] [address] Dr. Wally Zapien Chloride [Moles/Vol] 105 mmol/L Normal 98-107 [facility] Comment on above: Performed By: #### B PROSECUTING ATTORNEY, T7, LIPID, TSH, CMP, URIC #### [facility] [address] [place] [address] Dr. Wally Zapien CO2 [Moles/Vol] 28.6 mmol/L Normal 21.0-32.0 [facility] Comment on above: Performed By: #### B PROSECUTING ATTORNEY, T7, LIPID, TSH, CMP, URIC #### [facility] [address] [place] [address] Dr. Wally Zapien Creatinine [Mass/Vol] 0.74 mg/dL Normal 0.70-1.30 [facility] Comment on above: Performed By: #### B PROSECUTING ATTORNEY, T7, LIPID, TSH, CMP, URIC #### [facility] [address] [place] [address] Dr. Wally Zapien EGFR-AF CONGOLESE >60 Normal >=60 [facility] Comment on above: Performed By: #### B PROSECUTING ATTORNEY, T7, LIPID, TSH, CMP, URIC #### [facility] [address] [place] [address] Dr. Wally Zapien EGFR-NON AF CONGOLESE >60 Normal >=60 [facility] Comment on above: Performed By: #### B PROSECUTING ATTORNEY, T7, LIPID, TSH, CMP, URIC #### [facility] [address] [place] [address] Dr. Wally Zapien Globulin (S) [Mass/Vol] 3.2 g/dL Normal [facility] Comment on above: Performed By: #### B PROSECUTING ATTORNEY, T7, LIPID, TSH, CMP, URIC #### [facility] [address] [address] [address] Wally Zapien Glucose [Mass/Vol] 102 mg/dL Normal 74-106 [facility] Comment on above: Performed By: #### B PROSECUTING ATTORNEY, T7, LIPID, TSH, CMP, URIC #### [facility] [address] [place] [address] Dr. Wally Zapien Potassium [Moles/Vol] 3.9 mmol/L Normal 3.5-5.1 [facility] Comment on above: Performed By: #### B PROSECUTING ATTORNEY, T7, LIPID, TSH, CMP, URIC #### [facility] [address] [place] [address] Dr. Wally Zapien Protein [Mass/Vol] 7.0 g/dL Normal 6.4-8.2 [facility] Comment on above: Performed By: #### B PROSECUTING ATTORNEY, T7, LIPID, TSH, CMP, URIC #### [facility] [address] [place] [address] Dr. Wally Zapien Sodium [Moles/Vol] 141 mmol/L Normal 136-145 [facility] Comment on above: Performed By: #### B PROSECUTING ATTORNEY, T7, LIPID, TSH, CMP, URIC #### [facility] [address] [place] [address] Dr. Wally Zapien Urea nitrogen [Mass/Vol] 19.0 mg/dL Critically high 7.0-18.0 [facility] Comment on above: Performed By: #### B PROSECUTING ATTORNEY, T7, LIPID, TSH, CMP, URIC #### [facility] [address] [place] [address] Dr. Wally Zapien Urea nitrogen/Creatinine [Mass ratio] 25.7 mg/mg Normal [facility] Comment on above: Performed By: #### B PROSECUTING ATTORNEY, T7, LIPID, TSH, CMP, URIC #### [facility] [address] [place] [address] Dr. Wally Zapien TSHon 09-24-2022 TSH 1.535 uIU/mL Normal 0.358-3.740 [facility] Comment on above: Performed By: #### U RCX #### [facility] [address] [address] [address] Wally Zapien UA RANDOM W/MICROSCOPICon BACTERIA NONE SEEN Normal NONE SEEN [facility] Comment on above: Performed By: #### U RCX #### [facility] [address] [place] [address] Dr. Wally Zapien Bilirubin Ql (U) Negative Normal NEGATIVE [facility] Comment on above: Performed By: #### U RCX #### [facility] [address] [address] [address] Wally Zapien CAST NONE SEEN Normal NONE SEEN [facility] Comment on above: Performed By: #### U RCX #### [facility] [address] [place] [address] Dr. Wally Zapien Clarity (U) CLEAR Normal CLEAR [facility] Comment on above: Performed By: #### U RCX #### [facility] [address] [address] [address] Wally Zapien Color (U) YELLOW Normal YELLOW [facility] Comment on above: Performed By: #### U RCX #### [facility] [address] [place] [address] Dr. Wally Zapien Crystals LM Nom (Urine sed) NONE SEEN Normal NONE SEEN [facility] Comment on above: Performed By: #### U RCX #### [facility] [address] [place] [address] Dr. Wally Zapien Epithelial cells LM Ql (Urine sed) FEW Abnormal NONE SEEN /RARE [facility] Comment on above: Performed By: #### U RCX #### [facility] [address] [address] [address] Wally Zapien Glucose Ql (U) Negative Normal NEGATIVE [facility] Comment on above: Performed By: #### U RCX #### [facility] [address] [address] [address] Wally Zapien Hemoglobin Ql (U) TRACE-INTACT Abnormal NEGATIVE [facility] Comment on above: Performed By: #### U RCX #### [facility] [address] [address] [address] Wally Zapien Ketones Ql (U) Negative Normal NEGATIVE [facility] Comment on above: Performed By: #### U RCX #### [facility] [address] [address] [address] Wally Zapien LEUKOCYTES Negative Normal NEGATIVE [facility] Comment on above: Performed By: #### U RCX #### [facility] [address] [address] [address] Wally Zapien MUCOUS LARGE Abnormal NONE SEEN [facility] Comment on above: Performed By: #### U RCX #### [facility] [address] [address] [address] Wally Zapien Nitrite Ql (U) Negative Normal NEGATIVE [facility] Comment on above: Performed By: #### U RCX #### [facility] [address] [place] [address] Dr. Wally Zapien pH (U) 6.5 [pH] Normal 5-9 [facility] Comment on above: Performed By: #### U RCX #### [facility] [address] [address] [address] Wally Zapien RBC 2-5 Abnormal 0-2 [facility] Comment on above: Performed By: #### U RCX #### [facility] [address] [address] [address] Wally Zapien SPEC GRAVITY 1.025 Normal 1.005-<=1.025 [facility] Comment on above: Performed By: #### U RCX #### [facility] [address] [place] [address] Dr. Wally Zapien UA PROTEIN TRACE Normal NEGATIVE/ TRACE [facility] Comment on above: Performed By: #### U RCX #### [facility] [address] [address] [address] Wally Zapien Urobilinogen Qn (U) 1.0 {Suma'U}/dL Normal 0.2 - 1. 0 [facility] Comment on above: Performed By: #### U RCX #### [facility] [address] [place] [address] Dr. Wally Zapien WBC 0-2 Abnormal NONE SEEN [facility] Comment on above: Performed By: #### U RCX #### [facility] [address] [place] [address] Dr. Wally Zapien URIC ACID SERUMon 09-24-2022 Urate [Mass/Vol] 3.7 mg/dL Normal 3.5-7.2 [facility] Comment on above: Performed By: #### B PROSECUTING ATTORNEY, T7, LIPID, TSH, CMP, URIC #### [facility] [address] [place] [address] Dr. Wally Zapien VITAMIN D 25 OHon 09-24-2022 VIT D 25-OH 42.6 ng/mL Normal [facility] Comment on above: Performed By: #### U RCX #### [facility] [address] [place] [address] Dr. Wally Zapien VIT D RANGES SEE BELOW Normal [facility] Comment on above: Result Comment: <20 ng/mL Vit D deficient 20 - <30 ng/mL Vit D insufficient 30 - 100 ng/mL Vit D sufficient >100 ng/mL Potential Toxicity Performed By: #### U RCX #### [facility] [address] [place] [address] Dr. Wally Zapien CBC AUTO DIFFon 09-18-2022 BASO # 0.0 103/ul Normal 0.0-0.1 [facility] Comment on above: Performed By: #### C BC #### [facility] [address] [place] [address] Dr. Wally Zapien Basophils/100 WBC (Bld) 0.7 % Normal 0.2-2.0 [facility] Comment on above: Performed By: #### C BC #### [facility] [address] [place] [address] Dr. Wally Zapien EO # 0.1 103/ul Normal 0.0-0.7 [facility] Comment on above: Performed By: #### C BC #### [facility] [address] [place] [address] Dr. Wally Zapien Eosinophils/100 WBC (Bld) 2.8 % Normal 0.9-7.0 [facility] Comment on above: Performed By: #### C BC #### [facility] [address] [place] [address] Dr. Wally Zapien Erythrocyte distribution width (RBC) [Ratio] 12.7 % Normal 11.0-15.0 [facility] Comment on above: Performed By: #### C BC #### [facility] [address] [place] [address] Dr. Wally Zapien Hematocrit (Bld) [Volume fraction] 44.1 % Normal 42.0-54.0 [facility] Comment on above: Performed By: #### C BC #### [facility] [address] [place] [address] Dr. Wally Zapien Hemoglobin (Bld) [Mass/Vol] 15.3 g/dL Normal 14.0-18.0 [facility] Comment on above: Performed By: #### C BC #### [facility] [address] [place] [address] Dr. Wally Zapien IG # 0.01 10e3/ul Normal 0.00-0.03 [facility] Comment on above: Performed By: #### C BC #### [facility] [address] [place] [address] Dr. Wally Zapien IG % 0.2 % Normal 0.0-0.5 [facility] Comment on above: Performed By: #### C BC #### [facility] [address] [place] [address] Dr. Wally Zapien LYMPH # 1.8 103/ul Normal 1.2-3.8 [facility] Comment on above: Performed By: #### C BC #### [facility] [address] [place] [address] Dr. Wally Zapien Lymphocytes/100 WBC (Bld) 43.0 % Normal 20.5-60.0 [facility] Comment on above: Performed By: #### C BC #### [facility] [address] [place] [address] Dr. Wally Zapien MANUAL DIFF REQ NO Normal [facility] Comment on above: Performed By: #### C BC #### [facility] [address] [place] [address] Dr. Wally Zapien MCH (RBC) [Entitic mass] 32.1 pg Normal 25.9-34.0 [facility] Comment on above: Performed By: #### C BC #### [facility] [address] [place] [address] Dr. Wally Zapien MCHC (RBC) [Mass/Vol] 34.7 g/dL Normal 29.9-35.2 [facility] Comment on above: Performed By: #### C BC #### [facility] [address] [place] [address] Dr. Wally Zapien MCV (RBC) [Entitic vol] 92.5 fL Normal 80.0-94.0 [facility] Comment on above: Performed By: #### C BC #### [facility] [address] [place] [address] Dr. Wally Zapien MONO # 0.4 103/ul Normal 0.3-0.8 [facility] Comment on above: Performed By: #### C BC #### [facility] [address] [place] [address] Dr. Wally Zapien Monocytes/100 WBC (Bld) 9.2 % Normal 1.7-12.0 [facility] Comment on above: Performed By: #### C BC #### [facility] [address] [place] [address] Dr. Wally Zapien NEUT # 1.9 103/ul Normal 1.4-6.5 [facility] Comment on above: Performed By: #### C BC #### [facility] [address] [place] [address] Dr. Wally Zapien Neutrophils/100 WBC (Bld) 44.1 % Normal 43.0-75.0 [facility] Comment on above: Performed By: #### C BC #### [facility] [address] [place] [address] Dr. Wally Zapien Platelet mean volume (Bld) [Entitic vol] 10.4 fL Normal 9.5-13.5 [facility] Comment on above: Performed By: #### C BC #### [facility] [address] [place], [place] [address] Dr. Wally Zapien PLT 152 103/ul Normal 150-450 [facility] Comment on above: Performed By: #### C BC #### [facility] [address] [place], [place] [address] Dr. Wally Zapien RBC 4.77 106/ul Normal 4.70-6.10 [facility] Comment on above: Performed By: #### C BC #### [facility] [address] [place], [place] [address] Dr. Wally Zapien WBC 4.2 103/ul Normal 4.0-11.0 [facility] Comment on above: Performed By: #### C BC #### [facility] [address] [place], [place] [address] ABD/PELVIS WO CONon [...] repair. 4. Cardiomegaly. Electronically authenticated by: MAYRA CHINA Date: 2022-09-18 13:40 Normal [facility] URINE PROFILEon 3 Bilirubin Ql (U) SMALL Abnormal NEGATIVE [facility] Comment on above: Performed By: #### Olinda WILLIS UMICRO #### [facility] [address] [place] [address] Dr. Wally Zapien Clarity (U) SL CLOUDY Abnormal CLEAR [facility] Comment on above: Performed By: #### Olinda WILLIS UMICRO #### [facility] [address] [place] [address] Dr. Wally Zapien Color (U) RED Abnormal YELLOW [facility] Comment on above: Performed By: #### Olinda WILLIS UMICRO #### [facility] [address] [place] [address] Dr. Wally GERBER A micrscopic examination will be performed if indicated. Normal [facility] Comment on above: Performed By: #### Olinda WILLIS UMICRO #### [facility] [address] [place] [address] Dr. Wally Zapien Glucose Ql (U) Negative Normal NEGATIVE [facility] Comment on above: Performed By: #### Olinda WILLIS UMICRO #### [facility] [address] [address] [address] Wally Zapien Hemoglobin Ql (U) LARGE Abnormal NEGATIVE [facility] Comment on above: Performed By: #### E RUJanell UMICRO #### [facility] [address] [place] [address] Dr. Wally Zapien Ketones Ql (U) TRACE Abnormal NEGATIVE [facility] Comment on above: Performed By: #### KERRI PADRON #### [facility] [address] [place] [address] Dr. Wally Zapien LEUKOCYTES TRACE Abnormal NEGATIVE The [facility] Comment on above: Performed By: #### BIMAL PADRONRO #### [facility] [address] [place] [address] Dr. Wally Zapien Nitrite Ql (U) Positive Abnormal NEGATIVE [facility] Comment on above: Performed By: #### KERRI PADRON #### [facility] [address] [place] [address] Dr. Wally Zapien pH (U) 5.5 [pH] Normal 5-9 [facility] Comment on above: Performed By: #### KERRI PADRON #### [facility] [address] [place] [address] Dr. Wally Zapien Protein (U) [Mass/Vol] 100 mg/dL Abnormal NEGATIVE/ TRACE The [facility] Comment on above: Performed By: #### KERRI PADRON #### [facility] [address] [place] [address] Dr. Wally Zapien SPEC GRAVITY 1.025 Normal 1.005-<=1.025 [facility] Comment on above: Performed By: #### KERRI PADRON #### [facility] [address] [place] [address] Dr. Wally Zapien UR MICRO IND INDICATED Normal The [facility] Comment on above: Performed By: #### KERRI PADRON #### [facility] [address] [place] [address] Dr. Wally Zapien Urobilinogen Qn (U) 1.0 {Suma'U}/dL Normal 0.2 - 1. 0 The [facility] Comment on above: Performed By: #### KERRI PADRON #### [facility] [address] [place] [address] Dr. Wally Zapien PROF CHEM 8 (BAS METB)on Anion gap [Moles/Vol] 10.5 mmol/L Normal [facility] Comment on above: Performed By: #### U RCX #### [facility] [address] [address] [address] Wally Zapien Calcium [Mass/Vol] 8.6 mg/dL Normal 8.5-10.1 [facility] Comment on above: Performed By: #### U RCX #### [facility] [address] [address] [address] Wally Zapien Chloride [Moles/Vol] 105 mmol/L Normal 98-107 [facility] Comment on above: Performed By: #### U RCX #### [facility] [address] [place] [address] Dr. Wally Zapien CO2 [Moles/Vol] 28.8 mmol/L Normal 21.0-32.0 [facility] Comment on above: Performed By: #### U RCX #### [facility] [address] [place] [address] Dr. Wally Zapien Creatinine [Mass/Vol] 0.85 mg/dL Normal 0.70-1.30 [facility] Comment on above: Performed By: #### U RCX #### [facility] [address] [address] [address] Wally Zapien EGFR-AF CONGOLESE >60 Normal >=60 [facility] Comment on above: Performed By: #### U RCX #### [facility] [address] [place] [address] Dr. Wally Zapien EGFR-NON AF CONGOLESE >60 Normal >=60 [facility] Comment on above: Performed By: #### U RCX #### [facility] [address] [place] [address] Dr. Wally Zapien Glucose [Mass/Vol] 112 mg/dL Critically high 74-106 [facility] Comment on above: Performed By: #### U RCX #### [facility] [address] [place] [address] Dr. Wally Zapien Potassium [Moles/Vol] 4.3 mmol/L Normal 3.5-5.1 [facility] Comment on above: Performed By: #### U RCX #### [facility] [address] [address] [address] Wally Zapien Sodium [Moles/Vol] 140 mmol/L Normal 136-145 [facility] Comment on above: Performed By: #### U RCX #### [facility] [address] [address] [address] Wally Zapien Urea nitrogen [Mass/Vol] 23.0 mg/dL Critically high 7.0-18.0 [facility] Comment on above: Performed By: #### U RCX #### [facility] [address] [address] [address] Wally Zapien Urea nitrogen/Creatinine [Mass ratio] 27.1 mg/mg Normal [facility] Comment on above: Performed By: #### U RCX #### [facility] [address] [place] [address] Dr. Wally Zapien URINE MICROSCOPIC ONLYon BACTERIA TRACE Abnormal NONE SEEN [facility] Comment on above: Performed By: #### Olinda WILLIS UMICRO #### [facility] [address] [place] [address] Dr. Wally Zapien Bacteria identified Cx Nom (U) NOT INDICATED Normal [facility] Comment on above: Performed By: #### Olinda WILLIS UMICRO #### [facility] [address] [place] [address] Dr. Wally Zapien CAST NONE SEEN Normal NONE SEEN [facility] Comment on above: Performed By: #### Olinda WILLIS UMICRO #### [facility] [address] [place] [address] Dr. Wally Zapien Crystals LM Nom (Urine sed) NONE SEEN Normal NONE SEEN [facility] Comment on above: Performed By: #### E LAZARO UMICRO #### [facility] [address] [place] [address] Dr. Wally Zapien Epithelial cells LM Ql (Urine sed) RARE Normal NONE SEEN /RARE The [facility] Comment on above: Performed By: #### E LAZARO UMICRO #### [facility] [address] [place] [address] Dr. Wally Zapien MUCOUS NONE SEEN Normal NONE SEEN The [facility] Comment on above: Performed By: #### E RUR, UMICRO #### [facility] [address] [address] [address] Wally Zapien RBC (U) [#/Vol] /uL Abnormal 0-2 [facility] Comment on above: Performed By: #### E RUR, UMICRO #### [facility] [address] [address] [address] Wally Zapien WBC 2-5 Abnormal NONE SEEN The [facility] Comment on above: Performed By: #### E RUR, UMICRO #### [facility] [address] [address] [address] Wally Zapien Vital Signs Date Time Vital Sign Value Performing Clinician Facility 03-17-2024 14:58-0400 Blood Pressure Location Lazara Orzech [facility] 03-17-2024 14:58-0400 Diastolic blood pressure 77 mm[Hg] Lazara Orzech [facility] 03-17-2024 14:58-0400 Heart rate 80 /min Lazara Orzech [facility] 03-17-2024 14:58-0400 Respiratory rate 16 /min Lzaara Orzech [facility] 03-17-2024 14:58-0400 Systolic blood pressure 132 mm[Hg] Lazara Orzech [facility] 02-11-2024 09:59-0400 Blood Pressure Location Lazara Orzech [facility] 02-11-2024 09:59-0400 Diastolic blood pressure 84 mm[Hg] Lazara Orzech [facility] 02-11-2024 09:59-0400 Heart rate 71 /min Lazara [employer] [facility] 02-11-2024 09:59-0400 Systolic blood pressure 138 mm[Hg] Lazara Orzech [facility] 07-17-2023 15:40-0500 Body height 160.02 cm Rocio Chan [facility] 07-17-2023 15:40-0500 Body mass index (BMI) [Ratio] 37.55 kg/m2 Rocio Chan [facility] 07-17-2023 15:40-0500 Body temperature 98.2 [degF] Rocio Chan Other [facility] 07-17-2023 15:40-0500 Body weight 96.16 kg Rocio Rocio Other [facility] 07-17-2023 15:40-0500 Diastolic blood pressure 76 mm[Hg] Rocio Chan Other [facility] 07-17-2023 15:40-0500 Respiratory rate 18 /min Rocio Rocio Other [facility] 07-17-2023 15:40-0500 SaO2% (BldA) [Mass fraction] 96 % Rocio Chan [facility] 07-17-2023 15:40-0500 Systolic blood pressure 134 mm[Hg] Rocio Chan Other [facility] 09-26-2022 13:26-0500 Blood Pressure Location Reno VALENTIN [facility] 09-26-2022 13:26-0500 Diastolic blood pressure 74 mm[Hg] [place] VALENTIN [facility] 09-26-2022 13:26-0500 Heart rate 52 /min [place] VALENTIN [facility] 09-26-2022 13:26-0500 Systolic blood pressure 173 mm[Hg] [place] VALENTIN [facility] 04-16-2022 13:49-0400 Diastolic blood pressure 87 mm[Hg] [place] VALENTIN [facility] 04-16-2022 13:49-0400 Mean blood pressure 110 mm[Hg] [place] VALENTIN [facility] 04-16-2022 13:49-0400 Systolic blood pressure 156 mm[Hg] [place] VALENTIN [facility] 04-16-2022 13:37-0400 Blood Pressure Location [place] VALENTIN [facility] 04-16-2022 13:37-0400 Diastolic blood pressure 102 mm[Hg] [place] VALENTIN [facility] 04-16-2022 13:37-0400 Heart rate 81 /min [place] VALENTIN [facility] 04-16-2022 13:37-0400 Respiratory rate 16 /min [place] VALENTIN [facility] 04-16-2022 13:37-0400 Systolic blood pressure 191 mm[Hg] [place] VALENTIN [facility] Encounters Encounter Date Encounter Type Care Provider Facility Start: 04-21-2024 End: 04-21-2024 ambulatory [facility] Start: 04-17-2024 End: 04-21-2024 ambulatory [facility] Start: 04-17-2024 End: 04-21-2024 ambulatory [facility] Start: 04-17-2024 End: 04-20-2024 Evaluation and management of inpatient [facility] Start: 04-17-2024 End: 04-21-2024 Emergency department patient visit [facility] Start: 04-17-2024 End: 04-21-2024 ambulatory [facility] Start: 04-14-2024 ambulatory Lazara Lino Facilit y:[facility] Start: 04-07-2024 End: 04-07-2024 ambulatory [place] VALENTIN Facility:CD:[id number] Start: 03-18-2024 End: 03-18-2024 ambulatory Emily Maria Facility:[facility] [place] Start: 03-18-2024 End: 03-18-2024 Patient encounter procedure Emily Maria [facility] Start: 03-17-2024 End: 03-17-2024 ambulatory Lazara Lino Facility:[facility] Start: 03-17-2024 End: 03-17-2024 Patient encounter procedure Lazara X Orzech [facility] Start: 02-11-2024 End: 02-11-2024 Lab Drop off Lazara X Orzech [facility] Start: 02-11-2024 End: 02-11-2024 ambulatory Lazara X Orzech Facility:[facility] Start: 02-11-2024 End: 02-11-2024 Patient encounter procedure Lazara X Orzech [facility] Start: 11-18-2023 End: 11-19-2023 ambulatory Fabrice Dias MD Facility: [place] Start: 10-28-2023 End: 10-29-2023 ambulatory Fabrice Dias MD Facility: [place] Start: 09-30-2023 End: 10-01-2023 ambulatory [facility] Start: 2023 End: 09-24-2023 ambulatory Fab[facility] MD [facility] Start: 07-17-2023 End: 07-17-2023 ambulatory Rocio Chan Other [facility] Start: 07-17-2023 Office outpatient visit 15 minutes Rocio Chan [facility] Start: 05-27-2023 End: 05-28-2023 ambulatory Fabrice Dias MD Facility:[facility] Start: 01-23-[address] ELIANA BA . Facili ty:[facility] Start: 09-26-2022 End: 09-26-2022 Patient encounter procedure [place] VALENTIN [facility] Start: 09-24-2022 End: 09-25-[address] ELIANA BA . Facility:[facility] Start: 09-18-2022 End: 09-18-2022 ambulatory KARLOS MELTON . Facility:[facility] Start: 04-16-2022 End: 04-16-2022 Patient encounter procedure Reno Maciel JAYDON [facility] Procedures Date Procedure Procedure Detail Performing Clinician Start: 09-24-2022 PSA screening KARLOS ALVAREZ . Comment on above: Performed By: #### U RCX #### [facility] [address] [place] [address] Dr. Wally Zapien Start: 03-17-2019 Cystoscope, device ( physical object) [place] VALENTIN Cardiac catheterization Patr ick JAYDON Coronary artery bypass graft [place] VALENTIN Extraction of cataract Patri ck JAYDON Hydrocelectomy [place] MEYER S Inguinal herniorrhaphy Patri ck JAYDON Large intestine excision Pat noe VALENTIN Prosthetic arthropla sty of the hip [place] VALENTIN Repair of musculoten dinous cuff of shoulder [place] VALENTIN Tonsillectomy and adenoidectomy [place] VALENTIN Plan of Treatment Date Care Activity Detail Author Start: 06-30-2024 ambulatory Ambulatory Facility:[facility] Immunizations Immunization Date Immunization Notes Care Provider [employer] 05-24-2022 influenza virus vacc ine, unspecified formulation Renonoe VALENTIN [facility] 04-20-2022 SARS-CoV-2 mRNA (jdqlwpvxalw-xsqt-kgqwsr e) vaccine [employer] [facility] 06-19-2021 SARS-CoV-2 (COVID-19 ) mRNA BNT-162b2 vax [employer] [facility] 06-01-2021 influenza virus vacc ine, unspecified formulation [employer] [facility] 05-23-2021 influenza virus vacc ine, unspecified formulation [employer] [facility] 11-10-2020 SARS-CoV-2 (COVID-19 ) mRNA BNT-162b2 vax [employer] [facility] 10-20-2020 SARS-CoV-2 (COVID-19 ) mRNA BNT-162b2 vax [employer] [facility] 08-04-2020 zoster vaccine recombinant [employer] [facility] 07-06-2020 SARS-CoV-2 (COVID-19 ) Ad26 vaccine, recombinant [employer] [facility] 06-24-2020 influenza virus vacc ine, unspecified formulation [employer] [facility] 06-03-2020 zoster vaccine recombinant [employer] [facility] 06-02-2020 SARS-CoV-2 (COVID-19 ) Ad26 vaccine, recombinant [employer] [facility] 05-26-2020 influenza virus vacc ine, unspecified formulation [place] VALENT[place] [facility] 05-29-2019 influenza virus vacc ine, unspecified formulation [place] VALENTIN [facility] 06-17-2018 influenza virus vacc ine, unspecified formulation [place] VAL[place] [facility] 05-14-2017 influenza virus vacc ine, unspecified formulation [place] VALENT[place] [facility] 05-14-2017 pneumococcal polysaccharide vaccine, 23 valent [place] VALENTIN [facility] 05-17-2016 influenza virus vacc ine, unspecified formulation [place] VALENTIN [facility] 05-17-2016 pneumococcal conjuga te vaccine, 13 valent [employer] [employer] [facility] 05-16-2015 influenza virus vacc ine, unspecified formulation [place] VALENTIN [facility] Payers Date Payer Category Payer Private Health Insurance 1957 Medicare [id number] 1940 Unknown [id number] 2.16.84 [id number] 1942 Unknown [id number] 2.16.84 0.1.003467.3.579.2.593 1942 Unknown [id number] 2.16.84 0.1.976600.3.579.2.593 1942 Unknown [id number] 2.16. 840.1.855110.3.579.2.196 1942 Unknown [id number] 2.16. 840.1.200088.3.579.2.196 1942 Unknown [id number] 2.16. 840.1.440003.3.579.2.196 1942 Unknown [id number] 2.16. 840.1.180555.3.579.2.196 1942 Unknown [id number] 2.16. 840.1.089696.3.579.2.196 1942 Unknown [id number] 2.16.8 40.1.141311.3.579.2.727 1942 Unknown [id number] 2.16.8 40.1.400494.3.579.2.727 1942 Unknown [id number] 2.16.8 40.1.635331.3.579.2.727 1942 Unknown [id number] 2.16.8 40.1.324945.3.579.2.727 1942 Unknown [id number] 2.16.8 40.1.967290.3.579.2.727 1942 Unknown [id number] 2.16.8 40.1.686733.3.579.2.727 1942 Unknown [id number] 2.16.8 40.1.473474.3.579.2.727 1942 Unknown [id number] 2.16.8 40.1.826199.3.579.2.1286 1942 Unknown [id number] 2.16.8 40.1.636514.3.579.2.1286 1942 Unknown [id number] 2.16.8 40.1.702599.3.579.2.1286 1942 Unknown [id number] 2.16.8 40.1.011794.3.579.2.1286 1942 Unknown [id number] 2.16.8 40.1.909995.3.579.2.1286 1942 Unknown [id number] 2.16.8 40.1.287071.3.579.2.1286 1942 Unknown [id number] 2.16.8 40.1.175647.3.579.2.1286 1942 Unknown [id number] 2.16.8 40.1.851975.3.579.2.1286 1942 Unknown [id number] 2.16.8 40.1.064255.3.579.2.1286 Social History Date Type Detail Facility Start: 04-16-2022 End: 03-17-2024 Tobacco smoking status Never smoked tobacco (finding) [facility] Tobacco smoking status Never [facility] Sex Assigned At Male [facility] N42 Functional Status Date Assessment Result Facility 03-17-2024 Functional Status N/A [facility] 02-11-2024 Functional Status N/A [facility] 09-26-2022 Functional Status N/A [facility] 04-16-2022 Functional Status N/A [facility] N42 Clinical Notes 10-06-2020 to 04-17-2024 Note Date & Type Note Facility 04-17-[address] BRAIN WO CONT STR ASH ALERT History: Acute onset slurred speech. Stroke evaluation. Exam/Technique: Contiguous axial images are obtained of the brain without intravenous contrast. Coronal and sagittal reconstructions are reproduced and reviewed. Automatic exposure control was utilized. Comparison: None available Findings: No intracranial blood products, mass or midline shift is present. Age compatible cerebral volume loss noted as well as periventricular white matter change. The ventricular and cisternal configuration is concordant with cerebral volume. No indication of hydrocephalus. The visualized portions of the paranasal sinuses and mastoid air cells show no fluid levels or acute disease. IMPRESSION: * No evidence of acute disease All CT scans at this facility use dose modulation, iterative reconstruction, and/or weight based dosing when appropriate to reduce radiation dose to as low as reasonably achievable. Finalized by Jose Elias Garner DO on 04/17/2024 8:52 AM [facility] 03-17-2024 Hospital Discharge instructions Patient Education 03/17/2024 [...] Follow these instructions at home: Medicines Take jlww-ndk-scrlsrs and prescription medicines only as told by [...] provider. Document Revised: 05/03/2021 Document Reviewed: 05/03/2021 [employer] Patient Education 2022 [employer]. Follow Up Care 03/13/2024 14:20:02 With:KIM Lino APRN, PARVIN Kirk, URL Address: When: Unknown [facility] [place] 03-17-2024 Note Patient Education Urology Acute Urinary [...] these instructions at home: Medicines ? Take wvcq-pei-pifimdp and prescription medicines only as told by [...] provider. Document Revised: 05/03/2021 Document Reviewed: 05/03/2021 [employer] Patient Education ? [address]22 [employer]. [facility] 02-11-2024 Evaluation + Plan note Diagnostic Tests PendingUrine Culture 02/11/24 [facility] 02-11-2024 Hospital Discharge instructions Patient Education 02/11/2024 [...] Follow these instructions at home: Medicines Take sjnh-onq-prqqulj and prescription medicines only as told by [...] or the blood stops without treatment. Take votq-jum-kqqxtqp and prescription medicines only as told by your health care provider. Drink enough fluid to keep your urine pale yellow. This information is not intended to replace advice given to you by your health care provider. Make sure you discuss any questions you have with your health care provider. Document Revised: 04/12/2021 Document Reviewed: 04/12/2021 [employer] Patient Education 2022 [employer]. 02/11/2024 10:34:29 Benign Prostatic Hyperplasia Benign Prostatic [...] urethra. Follow these instructions at home: Take vszz-ogs-abkskfb and prescription medicines only as told by [...] provider. Document Revised: 02/28/2022 Document Reviewed: 02/28/2022 [employer] Patient Education 2022 [employer]. Follow Up Care 04/16/2022 14:54:37 With:KIM Lino APRN, PARVIN Kirk, URL Address: When: Unknown Comments:1 year With:JAYDON COE, [place] Maciel, URL Address: [facility] [address] [place] [address]- [phone] When: Unknown [facility] 02-11-2024 Note - From: Julia Charlton To: [facility] - Administrative; Sent: 02/11/2024 10:28:36 EDT Show up: 08/26/2024 10:28:00 EST Subject: schedule 1 yr f/u Due Date/Time: 02/02/2025 10:28:00 EDT Reminder/Recall Patient needs scheduled for a 1 yr f/u, no labs [facility] 07-17-2023 Evaluation note Encounter Date Diagnosis Assessment [...] no improvement in 2 to 3 days [facility] 02-01-2023 Hospital Discharge instructions Patient Education [...] or mouth. Supplies needed: Soap. Alcohol-based hand pharmaceutical detailer. Standard cleaning products. Disinfectants, such as bleach. [...] water are not available, use alcohol-based hand pharmaceutical detailer. Avoid touching your face, mouth, nose, or [...] water. Air-dry your dishes or use a strapper and buffer. Do not share dishes or eating utensils. [...] certain germs and not others. Read the cutting torch operator's instructions or read online resources to [...] minutes after each use, or according to cutting torch operator's instructions. Wash reusable cleaning cloths and [...] water are not available, use alcohol-based hand pharmaceutical detailer. In general: Stay home except to get [...] for Professionals in Infection Control and Epidemiology: professionals.site.apic.org/muauggva-bc-lsof/bss-tqymeerjil-cbxgnex/home/ Summary It is important to know how [...] 05/21/2009 Document Revised: 12/08/2019 Document Reviewed: 11/06/2019 [employer] Patient Education 2019 [employer]. Follow Up Care 09/20/2022 14:58:28 With:JAYDON COE, Ren[place] Maciel, URL Address: [facility] [address] , [place] [address]- When:3 months Comments:UTI F/U [facility] 08-22-2022 Hospital Discharge instructions Patient Education 04/16/2022 [...] urethra. Follow these instructions at home: Take leqq-cth-aciatfc and prescription medicines only as told by [...] 08/12/2006 Document Revised: 07/07/2019 Document Reviewed: 09/16/2017 [employer] Patient Education 2020 [employer]. 04/16/2022 14:44:17 Calorie Counting for Weight Loss Calorie Counting for Weight Loss Calories are units of energy. Your body needs a certain amount of calories from food to keep you going throughout the day. When you eat more calories than your body needs, your body stores the extra calories as fat. When you eat fewer calories than your body needs, your body cm fat to get the energy it needs. [...] 08/12/2006 Document Revised: 05/01/2019 Document Reviewed: 07/12/2017 [employer] Patient Education [employer]. Follow Up Care 10/16/2021 15:00:57 With:JAYDON COE, Ren[place] Maciel, URL Address: [address] [place] [id number] (1) When:Within 1 Year(s) [facility] 02-11-2021 NotePatient Outreach ([facility]) KYLER RICHARD ([id number]) 1940 M Date Time Provider Department 10/06/20 JOLYNN RUSSO During your visit today, we recorded the following information about you: Allergies As of Date: 10/06/2020 (No Known Allergies) Date Reviewed: 11/27/2018 Reviewed by: Huyen Barraza - Fully Assessed Order(s):SARS-COVID VACCINE 1ST DOSE APPT [[id number]] Order #: [id number] FUTURE Prescriptions as of 10/06/2020 Sig: RHOPRESSA [...] arteriosclerosis [I25.10] Letter Text Encounter Status:Closed by [employer], [employer] on [facility]/20[facility] Evaluation + Plan note Future Appointments Appointment Date:04/19/2023 09:30:00 AM Scheduled Provider:Reno VALENTIN MD Location:[facility] Appointment Type:URO Office Visit [facility] evaluation + Plan note Future Appointments Appointment Date:01/16/2023 09:45:00 AM Scheduled Provider:Reno VALENTIN MD Location:[facility] Appointment Type:URO Office Visit Appointment Date:04/19/2023 09:30:00 AM Scheduled Provider:Reno VALENTIN MD Location:[facility] Appointment Type:URO Office Visit [facility] Evaluation + Plan note Future Appointments Appointment Date:04/14/2024 11:30:00 AM Scheduled Provider:KIM Lino APRN, [place] [facility] Location:[facility] Appointment Type:URO Office Visit [facility] History general Narrative - Reported* Type Description Date Medical History heart disease Medical History colon cancer Medical History glaucoma Surgical History open heart surgery Surgical History colon surgery Surgical History 3 hernia repairs Surgical History torn retina Surgical History cataracts Surgical History left total hip 2017 Surgical History Eye lid lift both 2020 Hospitalization History see above Hospitalization History back spasms 2022 [facility] course Narrative No data available for this section [facility] Hospital Discharge instructions No data available for this section [facility] data available for this section [facility] Summary Purpose Family History No Family [...] section and content) DATE CREATED AUTHOR 09/19/2021 [facility] DATE CREATED AUTHOR AUTHOR'S ORGANIZ ATION 02/01/2023 [facility] DATE CREATED AUTHOR AUTHOR'S ORGANIZ ATION 12/31/2023 [facility] DATE CREATED AUTHOR AUTHOR'S ORGANIZ ATION 02/13/2024 [facility] DATE CREATED AUTHOR AUTHOR'S ORGANIZ ATION 02/14/2024 [facility] DATE CREATED AUTHOR AUTHOR'S ORGANIZ ATION 04/17/2024 [facility] DATE CREATED AUTHOR AUTHOR'S ORGANIZ ATION 04/22/2024 [facility] DATE CREATED AUTHOR AUTHOR'S ORGANIZ ATION 04/23/2024 [facility] Care Team (unrecognized sect ion and content) Personnel Name: Eliana Ba MD Address: [address] [place], [place] [id number] Personnel Name: Eliana Ba MD Address: Address: [address] [place] [address], [place] [address] Personnel Name: Eliana Ba MD Address: Address: [address] [place] [address] Personnel Name: Eliana Ba MD Address: Address: [address] [place], [place] [id number] Personnel Name: Eliana Ba MD Address: Address: [address] [place] [address], [address] Personnel Name: Eliana Ba MD Address: Address: [address] [place] [address] REASON FOR VISIT (unrecogniz ed section and [...] BE BASED ON THE PRIMARY CLINICAL RECORDS. [employer] [facility]. provides no warranty or guarantee of the accuracy or completeness of information in this document.
[2024-05-10] MEDS: LIDOCAINE 2% JELLY 10 ML UR (20:34)
[2024-05-10 20:52] LABS: Basophils Absolute Auto 0.1 10^3/uL (0.0-0.1); Eosinophils Absolute Auto 0.3 10^3/uL (0.0-0.7); Eosinophils Percent Auto 5.8 % (0.9-7.0); Hematocrit 43.1 % (42.0-54.0); Hemoglobin 14.9 g/dL (14.0-18.0); Immature Granulocytes Abs Auto 0.01 10^3/uL (0.00-0.03); Immature Granulocytes Pct Auto 0.2 % (0.0-0.5); Lymphocytes Absolute Auto 1.5 10^3/uL (1.2-3.8); Lymphocytes Percent Auto 30.6 % (20.5-60.0); Mean Corpuscular HGB Conc 34.6 g/dL (29.9-35.2); Mean Corpuscular Hemoglobin 31.4 pg (25.9-34.0); Mean Corpuscular Volume 90.9 fL (80.0-94.0); Mean Platelet Volume 10.4 fL (9.5-13.5); Monocytes Absolute Auto 0.4 10^3/uL (0.3-0.8); Monocytes Percent Auto 7.7 % (1.7-12.0); Neutrophils Absolute Auto 2.6 10^3/uL (1.4-6.5); Neutrophils Percent Auto 54.7 % (43.0-75.0); Platelet Count 207 10^3/uL (150-450); Red Blood Count 4.74 10^6/uL (4.70-6.10); Red Cell Distribution Width 12.6 % (11.0-15.0); White Blood Count 4.8 10^3/uL (4.0-11.0)
[2024-05-10 21:06] LABS: Anion Gap 10.3; BUN Creatinine Ratio 17.6; Calcium 8.5 mg/dL (8.5-10.1); Carbon Dioxide 27.4 mmol/L (21.0-32.0); Chloride 103 mmol/L (98-107); Estimated GFR (African America >60 (>=60); Estimated GFR (Non-African Ame >60 (>=60); Glucose 136 mg/dL (74-106); Potassium 3.7 mmol/L (3.5-5.1); Sodium 137 mmol/L (136-145)
[2024-05-10 21:14] LABS: Clarity Urine CLEAR (CLEAR); Color Urine DK. RED (YELLOW)
[2024-05-10 21:16] LABS: Bilirubin Urine COLOR INTERFERENCE (NEGATIVE); Blood Urine COLOR INTERFERENCE (NEGATIVE); Glucose Urine UA COLOR INTERFERENCE mg/dL (NEGATIVE); Ketones Urine COLOR INTERFERENCE mg/dL (NEGATIVE); Leukocyte Esterase Urine COLOR INTERFERENCE (NEGATIVE); Nitrite Urine COLOR INTERFERENCE (NEGATIVE); Protein Urine COLOR INTERFERENCE mg/dL (NEG/TRACE); Urobilinogen Urine COLOR INTERFERENCE EU/dL (0.2-1.0); pH Urine COLOR INTERFERENCE (5.0-9.0)
[2024-05-10 21:23] LABS: RBC Urine >100 #/HPF (0-2)
[2024-05-10 21:24] LABS: Bacteria Urine TRACE #/HPF (NONE SEEN); Cast Seen? NONE SEEN #/LPF (NONE SEEN); Crystals Seen? None Seen #/HPF (None Seen); Mucus Urine NONE SEEN (NONE SEEN); Squamous Epithelial Cell Urine NONE SEEN #/LPF (NONE/RARE); Urine Culture Indicated YES
--- NOTE | 2024-05-10 23:18 | PC.NURSE ---
catheter manually irrigated with 900ml sterile water. Irrigation produced multiple large and small clots, catheter was irrigated until no more clots were coming out and water was returning out clear to pink. Patient tolerated well
== END 2024-05-10 23:23 | disposition home or self-care (01) ==
PROVIDERS: Emergency Provider Emergency Medicine; PCP Family Medicine
DX: R31.9 Hematuria, unspecified (principal); R33.9 Retention of urine, unspecified
CPT/HCPCS: 36415; 51702; 80048; 81001; 85025; 87086; 99284

== ENCOUNTER 2024-05-10 23:00 | Outpatient (RCR) | payer MEDICARE, SELFPAY ==
[2024-05-11 11:08] LABS: Bilirubin Urine COLOR INTERFERENCE (NEGATIVE); Blood Urine COLOR INTERFERENCE (NEGATIVE); Clarity Urine CLEAR (CLEAR); Color Urine DK. RED (YELLOW); Glucose Urine UA COLOR INTERFERENCE mg/dL (NEGATIVE); Ketones Urine COLOR INTERFERENCE mg/dL (NEGATIVE); Leukocyte Esterase Urine COLOR INTERFERENCE (NEGATIVE); Nitrite Urine COLOR INTERFERENCE (NEGATIVE); Protein Urine COLOR INTERFERENCE mg/dL (NEG/TRACE); Specific Gravity Urine 1.015 (1.005-1.025); Urine Microscopic Indicated YES; Urobilinogen Urine COLOR INTERFERENCE EU/dL (0.2-1.0); pH Urine COLOR INTERFERENCE (5.0-9.0)
[2024-05-11 12:06] LABS: Bacteria Urine NONE SEEN #/HPF (NONE SEEN); Cast Seen? NONE SEEN #/LPF (NONE SEEN); Crystals Seen? None Seen #/HPF (None Seen); Mucus Urine NONE SEEN (NONE SEEN); RBC Urine >100 #/HPF (0-2); Squamous Epithelial Cell Urine RARE #/LPF (NONE/RARE); Urine Culture Indicated YES
== END 2024-05-25 12:48 | disposition home or self-care (01) ==
LOC: LAB 23:00
PROVIDERS: PCP Family Medicine; Visit Provider Family Medicine
DX: R31.9 Hematuria, unspecified (principal)
CPT/HCPCS: 81001; 87086; 87186

== ENCOUNTER 2024-05-22 14:46 | Emergency (ER) | payer MEDICARE, SELFPAY ==
--- OUTSIDE RECORDS SUMMARY | 2024-05-22 14:52 | XMS_ITS | CCD ---
Author Organization [facility] Care Team Providers Care Tax Agent Name Role Phone Eliana Ba Primary Care Physician [phone] GERONIMO .KARLOS Admitting Unavailable GERONIMO ., KARLOS [...] CALVIN BARNES Consulting Unavailable Rocio Chan Unavailable Givlaerieitis , Andrius Conner Attending Unavailable Giedraitis , [...] Allergy Irritation (qualifier value) [facility] (7 sources) levoFLOXacin; Translations: [levofloxacin] Drug Allergy 04-17-2024 Irritation (qualifier value) [facility] Medications Current Medications Medication Drug Class(es) [...] day(s), # 20 cap(s), Refills(s) 0, Pharmacy: [id number], 160, cm, 09/26/22 13:50:00 EST, Height/Length Dosing, [...] Ordered Start: 03-07-2022 take 1 capsule by [facility] twice daily tamsulosin 0.4 mg Cap 0.4 mg = 1 cap(s), Oral, BID, # 180 cap(s), Refills(s) 3, Pharmacy: [place] [id number] [facility], 160, cm, 10/16/21 14:26:00 EST, Height/Length [...] Corticosteroid Start: 03-17-2024 fluticasone Nasal 0.05 mg/inh Mccaskill instill 1 spray into each nostril once [...] Other chcf (current) drug therapy; Translations: [OTH ALF CURRENT DRUG THERAPY] Onset: 09-20-2022 Episodic Other aftercare (1 source) assisted (current) use of aspirin; 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] Onset: 09-20-2022 [...] 04-20-2024 Albumin [Mass/Vol] 3.4 g/dL Normal 3.2-5.3 [facility] Comment on above: Performed By: #### C MP ####[facility] ([id number])[address] [place] [address], [place] [address] ALP [Catalytic activity/Vol] 73 U/L Normal 39-130 [facility] Comment on above: Performed By: #### C MP ####[facility] ([id number])[address] [place] [address], [place] [address] ALT [Catalytic activity/Vol] 21 U/L Normal 0-40 [facility] Comment on above: Performed By: #### C MP ####[facility] ([id number])[address] [place] [address], [place] [address] Anion gap [Moles/Vol] 8 mmol/L Normal 5-15 [facility] Comment on above: Performed By: #### C MP ####[facility] ([id number])[address] [place] [address], [place] [address] AST [Catalytic activity/Vol] 17 U/L Normal 0-41 [facility] Comment on above: Performed By: #### C MP ####[facility] ([id number])[address] [place] [address], [place] [address] Bilirubin [Mass/Vol] 0.7 mg/dL Normal 0.3-1.2 [facility] Comment on above: Performed By: #### C MP ####[facility] ([id number])[address] [place] [address], [place] [address] Calcium [Mass/Vol] 8.4 mg/dL Low 8.5-10.5 [facility] Comment on above: Performed By: #### C MP ####[facility] ([id number])[address] [place] [address], [place] [address] Chloride [Moles/Vol] 102 mmol/L Normal 98-109 [facility] Comment on above: Performed By: #### C MP ####[facility] ([id number])[address] [place] [address] CO2 [Moles/Vol] 24 mmol/L Normal 22-32 [facility] Comment on above: Performed By: #### C MP ####[facility] ([id number])[address] [place] [address] Creatinine [Mass/Vol] 0.85 mg/dL Normal 0.70-1.20 [facility] Comment on above: Result Comment: METH OD TRACEABLE TO IDMS STANDARD Performed By: #### C MP ####[facility] ([id number])[address] [place] [address] GFR/1.73 sq M.predicted among non-blacks MDRD (S/P/Bld) [Vol rate/Area] 87 mL/min/{1.73_m2} Normal >59 [facility] Comment on above: Result Comment: Reported eGFR is based on the CKD-EPI 1 equation that does not use a race coefficient. Performed By: #### C MP ####[facility] ([id number])[address] [place] [address] Glucose [Mass/Vol] 119 mg/dL High 65-99 [facility] Comment on above: Performed By: #### C MP ####[facility] ([id number])[address] [place] [address] [place] [address] Potassium [Moles/Vol] 3.4 mmol/L Low 3.5-5.0 [facility] Comment on above: Performed By: #### C MP ####[facility] ([id number])[address] [place] [address] [place] [address] Protein [Mass/Vol] 6.4 g/dL Normal 6.0-8.0 [facility] Comment on above: Performed By: #### C MP ####[facility] ([id number])[address] [place] [address] [place] [address] Sodium [Moles/Vol] 134 mmol/L Normal 134-146 [facility] Comment on above: Performed By: #### C MP ####[facility] ([id number])[address] [place] [address] Urea nitrogen [Mass/Vol] 19 mg/dL Normal 5-27 [facility] Comment on above: Performed By: #### C MP ####[facility] ([id number])[address] [place] [address] CBC AND AUTO DIFFon 08- 24 ABSOLUTE BASOPHIL 0.0 X10E9/L Normal 0.0-0.2 [facility] Comment on above: Performed By: #### C MP, CBCA ####[facility] ([id number])[address] [place] [address] ABSOLUTE NEUTROPHIL 3.3 X10E9/L Normal 1.5-6.6 [facility] Comment on above: Performed By: #### C MP, CBCA ####[facility] ([id number])[address] [place] [address] Basophils/100 WBC (Bld) 0.4 % Normal [facility] Comment on above: Performed By: #### C MP, CBCA ####[facility] ([id number])[address] [place] [address] Eosinophils (Bld) [#/Vol] 0.3 10*3/uL Normal 0.0-0.4 [facility] Comment on above: Performed By: #### C MP, CBCA ####[facility] ([id number])[address] [place] [address] [place] [address] Eosinophils/100 WBC (Bld) 4.5 % Normal [facility] Comment on above: Performed By: #### C MP, CBCA ####[facility] ([id number])[address] [place] [address] Erythrocyte distribution width (RBC) [Ratio] 13.4 % Normal 11.5-15.0 [facility] Comment on above: Performed By: #### C MP, CBCA ####[facility] ([id number])[address] [place] [address] Hematocrit (Bld) [Volume fraction] 43.2 % Normal 39-49 [facility] Comment on above: Performed By: #### C MP, CBCA ####[facility] ([id number])[address] [place] [address] Hemoglobin (Bld) [Mass/Vol] 15.1 g/dL Normal 13.0-17.0 [facility] Comment on above: Performed By: #### C MP, CBCA ####[facility] ([id number])[address] [place] [address] Lymphocytes (Bld) [#/Vol] 2.1 10*3/uL Normal 1.0-3.5 [facility] Comment on above: Performed By: #### C MP, CBCA ####[facility] ([id number])[address] [place] [address] 56151 Lymphocytes/100 WBC (Bld) 33.9 % Normal [facility] Comment on above: Performed By: #### C MP, CBCA ####[facility] ([id number])[address] [place] [address]661 MCH (RBC) [Entitic mass] 31.9 pg Normal 27-34 [facility] Comment on above: Performed By: #### C MP, CBCA ####[facility] ([id number])[address] [place] [address] 4[address] MCHC (RBC) [Mass/Vol] 34.8 g/dL Normal 32-36 [facility] Comment on above: Performed By: #### C MP, CBCA ####[facility] ([id number])[address] [place] [address] 69485 MCV (RBC) [Entitic vol] 92 fL Normal 80-100 [facility] Comment on above: Performed By: #### C MP, CBCA ####[facility] ([id number])[address] [place] [address] 13038 Monocytes (Bld) [#/Vol] 0.5 10*3/uL Normal 0-0.9 [facility] Comment on above: Performed By: #### C MP, CBCA ####[facility] ([id number])[address] [place] [address] 68728 Monocytes/100 WBC (Bld) 8.5 % Normal [facility] Comment on above: Performed By: #### C MP, CBCA ####[facility] ([id number])[address] [place] [address]709 Neutrophils/100 WBC (Bld) 52.7 % Normal [facility] Comment on above: Performed By: #### C MP, CBCA ####[facility] ([id number])[address] [place] [address] 88490 Platelet mean volume (Bld) [Entitic vol] 8.2 fL Normal 7-12 [facility] Comment on above: Performed By: #### C MP, CBCA ####[facility] ([id number])[address] [place] [address] 29836 Platelets (Bld) [#/Vol] 140 10*3/uL Low 150-450 [facility] Comment on above: Performed By: #### C MP, CBCA ####[facility] ([id number])[address] [place] [address] [place] [address] RBC COUNT 4.71 X10E12/L Normal 4.10-5.70 [facility] Comment on above: Performed By: #### C SERINA CBCA ####[facility] ([id number])[address] [place] [address] 70453 WBC (Bld) [#/Vol] 6.2 10*3/uL Normal 4.0-11.0 [facility] Comment on above: Performed By: #### C SERINA, CBCA ####[facility] ([id number])[address] [place] [address]328 COMPREHENSIVE METABOLIC PANE [facility] 04-19-2024 Albumin [Mass/Vol] 3.4 g/dL Normal 3.2-5.3 [facility] Comment on above: Performed By: #### C SERINA CBCA ####[facility] ([id number])[address] [place] [address] ALP [Catalytic activity/Vol] 69 U/L Normal 39-130 [facility] Comment on above: Performed By: #### C SERINA CBCA ####[facility] ([id number])[address] [place] [address] 30237 ALT [Catalytic activity/Vol] 18 U/L Normal 0-40 [facility] Comment on above: Performed By: #### C SERINA CBCA ####[facility] ([id number])[address] [place] [address] 47608 Anion gap [Moles/Vol] 9 mmol/L Normal 5-15 [facility] Comment on above: Performed By: #### C SERINA CBCA ####[facility] ([id number])[address] [place] [address] 54546 AST [Catalytic activity/Vol] 23 U/L Normal 0-41 [facility] Comment on above: Performed By: #### C SERINA CBCA ####[facility] ([id number])[address] [place] [address] [place] [address] Bilirubin [Mass/Vol] 1.0 mg/dL Normal 0.3-1.2 [facility] Comment on above: Result Comment: RESU LTS QUESTIONABLE DUE TO HEMOLYSIS Performed By: #### C SERINA CBCA ####[facility] ([id number])[address] [place] [address] 44471 Calcium [Mass/Vol] 8.3 mg/dL Low 8.5-10.5 [facility] Comment on above: Performed By: #### C SERINA CBCA ####[facility] ([id number])[address] [place] [address] 22583 Chloride [Moles/Vol] 107 mmol/L Normal 98-109 [facility] Comment on above: Performed By: #### C SERINA CBCA ####[facility] ([id number])[address] [place] [address] 89593 CO2 [Moles/Vol] 21 mmol/L Low 22-32 [facility] Comment on above: Performed By: #### C SERINA CBCA ####[facility] ([id number])[address] [place] [address] 32363 Creatinine [Mass/Vol] 0.81 mg/dL Normal 0.70-1.20 [facility] Comment on above: Result Comment: METH OD TRACEABLE TO IDMS STANDARD Performed By: #### C SERINA CBCA ####[facility] ([id number])[address] [place] [address] 57353 GFR/1.73 sq M.predicted among non-blacks MDRD (S/P/Bld) [Vol rate/Area] 89 mL/min/{1.73_m2} Normal >59 [facility] Comment on above: Result Comment: Reported eGFR is based on the CKD-EPI 2020 equation that does not use a race coefficient. Performed By: #### C MP, CBCA ####[facility] ([id number])[address] [place] [address], [place] [address] Glucose [Mass/Vol] 125 mg/dL High 65-99 [facility] Comment on above: Performed By: #### C MP, CBCA ####[facility] ([id number])[address] [place] [address] [place] [address] Potassium [Moles/Vol] 4.0 mmol/L Normal 3.5-5.0 [facility] Comment on above: Result Comment: SPEC IMEN HEMOLYZED, RESULTS INCREASED Performed By: #### C SERINA, CBCA ####[facility] ([id number])[address] [place] [address] 14222 Protein [Mass/Vol] 6.0 g/dL Normal 6.0-8.0 [facility] Comment on above: Performed By: #### C SERINA, CBCA ####[facility] ([id number])[address] [place] [address] [place] [address] Sodium [Moles/Vol] 137 mmol/L Normal 134-146 [facility] Comment on above: Performed By: #### C SERINA, CBCA ####[facility] ([id number])[address] [place] [address] 02269 Urea nitrogen [Mass/Vol] 16 mg/dL Normal 5-27 [facility] Comment on above: Performed By: #### C MP, CBCA ####[facility] ([id number])[address] [place] [address] 38515 Calcium.ionized (Bld) [Moles /Vol]on 04-19-2024 PORTABLE ICA 4.6 mg/dL Normal 4.5-5.3 [facility] Comment on above: Performed By: #### 1 994-3 ####[facility] ([id number])[address] [place] [address] 97754 CBC AND AUTO DIFFon 04-18-20 24 ABSOLUTE BASOPHIL 0.1 X10E9/L Normal 0.0-0.2 [facility] Comment on above: Performed By: #### C BCA, CMP ####[facility] ([id number])[address] [place] [address] 61640#### 85810-5 ####[facility] ([id number])[address], [address], [place] [address] ABSOLUTE NEUTROPHIL 2.7 X10E9/L Normal 1.5-6.6 [facility] Comment on above: Performed By: #### C BCA, CMP ####[facility] ([id number])[address] [place] [address] 30552#### 95235-1 ####[facility] ([id number])[address], [address], [place] [address] Basophils/100 WBC (Bld) 0.9 % Normal [facility] Comment on above: Performed By: #### C BCA, CMP ####[facility] ([id number])[address] [place] [address] 43306#### 73132-2 ####[facility] ([id number])[address], [address], [place] [address] Eosinophils (Bld) [#/Vol] 0.2 10*3/uL Normal 0.0-0.4 [facility] Comment on above: Performed By: #### C BCA, CMP ####[facility] ([id number])[address] [place] [address] 72572#### 17294-5 ####[facility] ([id number])[address], [place] [address] Eosinophils/100 WBC (Bld) 4.1 % Normal [facility] Comment on above: Performed By: #### C BCA, CMP ####[facility] ([id number])[address] [place] [address] 67615#### [id number] ####[facility] ([id number])[address], [address], [place] [address] Erythrocyte distribution width (RBC) [Ratio] 13.8 % Normal 11.5-15.0 [facility] Comment on above: Performed By: #### C BCA, CMP ####[facility] ([id number])[address] [place] [address] 79650#### 86099-2 ####[facility] ([id number])[address], [address] [place] [address]27 Hematocrit (Bld) [Volume fraction] 41.2 % Normal 39-49 [facility] Comment on above: Performed By: #### C BCA, CMP ####[facility] ([id number])[address] [place] [address] 84979#### 08920-9 ####[facility] ([id number])[address], [address], [place] [address] Hemoglobin (Bld) [Mass/Vol] 14.1 g/dL Normal 13.0-17.0 [facility] Comment on above: Performed By: #### C BCA, CMP ####[facility] ([id number])[address] [place] [address] 80025#### 32638-4 ####[facility] ([id number])[address], [place] [address] Lymphocytes (Bld) [#/Vol] 1.9 10*3/uL Normal 1.0-3.5 [facility] Comment on above: Performed By: #### C BCA, CMP ####[facility] ([id number])[address] [place] [address] 07956#### 07831-9 ####[facility] ([id number])[address], [place] [address] Lymphocytes/100 WBC (Bld) 35.6 % Normal [facility] Comment on above: Performed By: #### C BCA, CMP ####[facility] ([id number])[address] [place] [address] 82117#### 18427-7 ####[facility] ([id number])[address], [place] [address] MCH (RBC) [Entitic mass] 31.7 pg Normal 27-34 [facility] Comment on above: Performed By: #### C BCA, CMP ####[facility] ([id number])[address] [place] [address] 21100#### 89935-2 ####[facility] ([id number])[address], [address], [place] [address] MCHC (RBC) [Mass/Vol] 34.2 g/dL Normal 32-36 [facility] Comment on above: Performed By: #### C BCA, CMP ####[facility] ([id number])[address] [place] [address] 90894#### 66090-5 ####[facility] ([id number])[address] [address] MCV (RBC) [Entitic vol] 93 fL Normal 80-100 [facility] Comment on above: Performed By: #### C BCA, CMP ####[facility] ([id number])[address] [place] [address] 30127#### 98079-0 ####[facility] ([id number])[address], [place] [address] Monocytes (Bld) [#/Vol] 0.5 10*3/uL Normal 0-0.9 [facility] Comment on above: Performed By: #### C BCA, CMP ####[facility] ([id number])[address] [place] [address] 27568#### 00164-8 ####[facility] ([id number])[address] [address] Monocytes/100 WBC (Bld) 9.4 % Normal [facility] Comment on above: Performed By: #### Alessandro BCA, CMP ####[facility] ([id number])[address] [place] [address] 31275#### 57919-8 ####[facility] ([id number])[address] [address] Neutrophils/100 WBC (Bld) 50.0 % Normal [facility] Comment on above: Performed By: #### Alessandro BCA, CMP ####[facility] ([id number])[address] [place] [address] 22894#### 59207-5 ####[facility] ([id number])[address] [address] Platelet mean volume (Bld) [Entitic vol] 8.2 fL Normal 7-12 [facility] Comment on above: Performed By: #### C BCA, CMP ####[facility] ([id number])[address] [place] [address] 78867#### 20838-2 ####[facility] ([id number])[address], [place] [address] Platelets (Bld) [#/Vol] 159 10*3/uL Normal 150-450 [facility] Comment on above: Performed By: #### C BCA, CMP ####[facility] ([id number])[address] [place] [address] 48272#### 10891-7 ####[facility] ([id number])[address], [address] [place] [address] 40849 RBC COUNT 4.45 X10E12/L Normal 4.10-5.70 [facility] Comment on above: Performed By: #### C BCA, CMP ####[facility] ([id number])[address] [place] [address] 20323#### 42819-7 ####[facility] ([id number])[address], [address] [place] [address] 80628 WBC (Bld) [#/Vol] 5.4 10*3/uL Normal 4.0-11.0 [facility] Comment on above: Performed By: #### C BCA, CMP ####[facility] ([id number])[address] [place] [address] 16907#### 34129-5 ####[facility] ([id number])[address], [address] [place] [address] 98083 COMPREHENSIVE METABOLIC PANE J[facility] 04-18-2024 Albumin [Mass/Vol] 3.3 g/dL Normal 3.2-5.3 [facility] Comment on above: Performed By: #### C BCA, CMP ####[facility] ([id number])[address] [place] [address] 11544#### 68968-4 ####[facility] ([id number])[address], [address] [place] [address] 00161 ALP [Catalytic activity/Vol] 67 U/L Normal 39-130 [facility] Comment on above: Performed By: #### C BCA, CMP ####[facility] ([id number])[address] [place] [address] 38371#### 91548-9 ####[facility] ([id number])[address], [place] [address] ALT [Catalytic activity/Vol] 18 U/L Normal 0-40 [facility] Comment on above: Performed By: #### C BCA, CMP ####[facility] ([id number])[address] [place] [address] 24120#### 88327-8 ####[facility] ([id number])[address], [place] [address] Anion gap [Moles/Vol] 7 mmol/L Normal 5-15 [facility] Comment on above: Performed By: #### C BCA, CMP ####[facility] ([id number])[address] [place] [address] 12002#### 18081-6 ####[facility] ([id number])[address] [address] AST [Catalytic activity/Vol] 17 U/L Normal 0-41 [facility] Comment on above: Performed By: #### C BCA, CMP ####[facility] ([id number])[address] [place] [address] 05434#### 33163-3 ####[facility] ([id number])[address], [place] [address] Bilirubin [Mass/Vol] 0.8 mg/dL Normal 0.3-1.2 [facility] Comment on above: Performed By: #### C BCA, CMP ####[facility] ([id number])[address] [place] [address] 05694#### 88222-9 ####[facility] ([id number])[address], [place] [address] Calcium [Mass/Vol] 8.2 mg/dL Low 8.5-10.5 [facility] Comment on above: Performed By: #### C BCA, CMP ####[facility] ([id number])[address] [place] [address] 17119#### 33024-1 ####[facility] ([id number])[address], [place] [address] Chloride [Moles/Vol] 108 mmol/L Normal 98-109 [facility] Comment on above: Performed By: #### C BCA, CMP ####[facility] ([id number])[address] [place] [address]99#### [id number] ####[facility] ([id number])[address], [place] [address] CO2 [Moles/Vol] 23 mmol/L Normal 22-32 [facility] Comment on above: Performed By: #### C BCA, CMP ####[facility] ([id number])[address] [place] [address]#### [id number] ####[facility] ([id number])[address], [place] [address] Creatinine [Mass/Vol] 0.75 mg/dL Normal 0.70-1.20 [facility] Comment on above: Result Comment: METH OD TRACEABLE TO IDMS STANDARD Performed By: #### C BCA, CMP ####[facility] ([id number])[address] [place] [address] 14863#### [id number] ####[facility] ([id number])[address], [place] [address] eGFR (CKD-EPI) NON-RACE DEPENDENT >90 Normal >59 [facility] Comment on above: Result Comment: Reported eGFR is based on the CKD-EPI 2020 equation that does not use a race coefficient. Performed By: #### C BCA, CMP ####[facility] ([id number])[address] [place] [address] 25668#### [id number] ####[facility] ([id number])[address] [place] [address] Glucose [Mass/Vol] 110 mg/dL High 65-99 [facility] Comment on above: Performed By: #### C BCA, CMP ####[facility] ([id number])[address] [place] [address]16#### [id number] ####[facility] ([id number])[address] [address] Potassium [Moles/Vol] 3.5 mmol/L Normal 3.5-5.0 [facility] Comment on above: Performed By: #### C BCA, CMP ####[facility] ([id number])[address] [place] [address] 266[address]#### [id number] ####[facility] ([id number])[address] [address] Protein [Mass/Vol] 5.9 g/dL Low 6.0-8.0 [facility] Comment on above: Performed By: #### C BCA, CMP ####[facility] ([id number])[address] [place] [address] 40492#### 05582-6 ####[facility] ([id number])[address] [address] [place] [address] Sodium [Moles/Vol] 138 mmol/L Normal 134-146 [facility] Comment on above: Performed By: #### Alessandro BCA, CMP ####[facility] ([id number])[address] [place] [address] 51615#### 81321-0 ####[facility] ([id number])[address], [place] [address] Urea nitrogen [Mass/Vol] 16 mg/dL Normal 5-27 [facility] Comment on above: Performed By: #### C BCA, CMP ####[facility] ([id number])[address] [place] [address] 45820#### 91659-3 ####[facility] ([id number])[address], [address], [place] [address] Lipid 1996 panelon 4 Cholesterol [Mass/Vol] 117 mg/dL Low 150-200 [facility] Comment on above: Performed By: #### C BCA, CMP ####[facility] ([id number])[address] [place] [address] 09983#### 09761-4 ####[facility] ([id number])[address], [address] [place] [address] 95331 Cholesterol in HDL [Mass/Vol] 28 mg/dL Low >39 [facility] Comment on above: Result Comment: HDL <40 mg/dL - High Risk HDL > or = 40mg/dL- Desirable HDL >60 mg/dL - Negative Risk Performed By: #### C BCA, CMP ####[facility] ([id number])[address] [place] [address] 45517#### 32804-5 ####[facility] ([id number])[address], [place] [address] Cholesterol in LDL [Mass/Vol] 35 mg/dL Normal <130 [facility] Comment on above: Result Comment: LDL <100 mg/dL - Desirable LDL >160 mg/dL - High Risk Performed By: #### C BCA, CMP ####[facility] ([id number])[address] [place] [address] 04425#### 80123-5 ####[facility] ([id number])[address] [facility], [address] [place] [address] Cholesterol in VLDL [Mass/Vol] 54 mg/dL High 0-30 [facility] Comment on above: Performed By: #### C BCA, CMP ####[facility] ([id number])[address] [place] [address] 80469#### 57841-0 ####[facility] ([id number])[address], [address] [place] [address] 08500 CHOLESTEROL:HDL 4.2 Normal 1.0-5.0 [facility] Comment on above: Performed By: #### C BCA, CMP ####[facility] ([id number])[address] [place] [address] 73619#### 35279-5 ####[facility] ([id number])[address], [address] [place] [address] 27332 Triglyceride [Mass/Vol] 270 mg/dL High 27-150 [facility] Comment on above: Performed By: #### C BCA, CMP ####[facility] ([id number])[address] [place] [address] 11595#### 95917-3 ####[facility] ([id number])[address], [place] [address] POTASSIUMon 04-18-2024 Potassium [Moles/Vol] 4.1 mmol/L Normal 3.5-5.0 [facility] Comment on above: Performed By: #### 2 823-3 ####[facility] ([id number])[address] [place] [address] 14366 BASIC METABOLIC PANLon 04-17 Anion gap [Moles/Vol] 5 mmol/L Normal 5-15 [facility] Comment on above: Performed By: #### C BCA, BMP, PINR, 72308-5, 68944-2, 3016-3, 302-7 #### [facility] ([id number]) [address] [place] [address] 35851 #### HA1C #### [facility] ([id number]) [address], [address] [place] [address] Calcium [Mass/Vol] 8.2 mg/dL Low 8.5-10.5 [facility] Comment on above: Performed By: #### C BCA, BMP, PINR, 73677-0, 20776-1, 3016-3, 302-7 #### [facility] ([id number]) [address] [place] [address] 56827 #### HA1C #### [facility] ([id number]) [address], [address] [place] [address] Chloride [Moles/Vol] 105 mmol/L Normal 98-109 [facility] Comment on above: Performed By: #### C BCA, BMP, PINR, 62810-8, 45963-6, 3016-3, 302-7 #### [facility] ([id number]) [address] [place] [address] 03121 #### HA1C #### [facility] ([id number]) [address] [address] CO2 [Moles/Vol] 26 mmol/L Normal 22-32 [facility] Comment on above: Performed By: #### C BCA, BMP, PINR, 52211-8, 90216-2, 3016-3, 3024-7 #### [facility] ([id number]) [address] [place] [address] 99327 #### HA1C #### [facility] ([id number]) [address] [place] [address] Creatinine [Mass/Vol] 0.97 mg/dL Normal 0.70-1.20 [facility] Comment on above: Result Comment: METH OD TRACEABLE TO IDMS STANDARD Performed By: #### C BCA, BMP, PINR, 89991-3, 15768-7, 3016-3, 302-7 #### [facility] ([id number]) [address] [place] [address] 97412 #### HA1C #### [facility] ([id number]) [address] [place] [address] GFR/1.73 sq M.predicted among non-blacks MDRD (S/P/Bld) [Vol rate/Area] 78 mL/min/{1.73_m2} Normal >59 [facility] Comment on above: Result Comment: Reported eGFR is based on the CKD-EPI 2020 equation that does not use a race coefficient. Performed By: #### C BCA, BMP, PINR, 86234-3, 82446-0, 3016-3, 3024-7 #### [facility] ([id number]) [address] [place] [address] 11194 #### HA1C #### [facility] ([id number]) [address] [place] [address] Glucose [Mass/Vol] 108 mg/dL High 65-99 [facility] Comment on above: Performed By: #### C BCA, BMP, PINR, 62826-0, 26974-8, 3016-3, 302-7 #### [facility] ([id number]) [address] [place] [address] 63065 #### HA1C #### [facility] ([id number]) [address], [address] [place] [address] Potassium [Moles/Vol] 3.7 mmol/L Normal 3.5-5.0 [facility] Comment on above: Performed By: #### C BCA, BMP, PINR, 78629-6, 06233-4, 3015-3, 3023-7 #### [facility] ([id number]) [address] [place] [address] 97840 #### HA1C #### [facility] ([id number]) [address], [address] [place] [address] Sodium [Moles/Vol] 136 mmol/L Normal 134-146 [facility] Comment on above: Performed By: #### C BCA, BMP, PINR, 22881-1, 81450-8, 3015-3, 3023-7 #### [facility] ([id number]) [address] [place] [address] 35993 #### HA1C #### [facility] ([id number]) [address], [address] [place] [address] Urea nitrogen [Mass/Vol] 23 mg/dL Normal 5-27 [facility] Comment on above: Performed By: #### C BCA, BMP, PINR, 84994-1, 46446-8, 3016-3, 302-7 #### [facility] ([id number]) [address] [place] [address] #### HA1C #### [facility] ([id number]) [address], [address] [place] [address] CBC AND AUTO DIFFon 04-17-20 24 ABSOLUTE BASOPHIL 0.0 X10E9/L Normal 0.0-0.2 [facility] Comment on above: Performed By: #### C BCA, BMP, PINR, 79217-8, 09544-4, 3016-3, 3024-7 #### [facility] ([id number]) [address] [place] [address] 39398 #### HA1C #### [facility] ([id number]) [address], [address] [place] [address] ABSOLUTE NEUTROPHIL 2.4 X10E9/L Normal 1.5-6.6 [facility] Comment on above: Performed By: #### C BCA, BMP, PINR, 29161-2, 11676-6, 3016-3, 3024-7 #### [facility] ([id number]) [address] [place] [address] 78792 #### HA1C #### [facility] ([id number]) [address], [address] [place] [address] Basophils/100 WBC (Bld) 0.8 % Normal [facility] Comment on above: Performed By: #### C BCA, BMP, PINR, 83985-2, 71742-3, 3016-3, 3024-7 #### [facility] ([id number]) [address] [place] [address] 17019 #### HA1C #### [facility] ([id number]) [address], [address] [place] [address] Eosinophils (Bld) [#/Vol] 0.2 10*3/uL Normal 0.0-0.4 [facility] Comment on above: Performed By: #### C BCA, BMP, PINR, 65337-7, 46811-2, 3015-3, 7 #### [facility] ([id number]) [address] [place] [address] 94397 #### HA1C #### [facility] ([id number]) [address], [address] [place] [address] Eosinophils/100 WBC (Bld) 4.1 % Normal [facility] Comment on above: Performed By: #### C BCA, BMP, PINR, 32574-0, 31811-9, 3015-3, 7 #### [facility] ([id number]) [address] [place] [address] 24502 #### HA1C #### [facility] ([id number]) [address], [address] [place] [address] Erythrocyte distribution width (RBC) [Ratio] 13.6 % Normal 11.5-15.0 [facility] Comment on above: Performed By: #### C BCA, BMP, PINR, 59969-5, 70255-3, 3015-10, 7 #### [facility] ([id number]) [address] [place] [address] 26993 #### HA1C #### [facility] ([id number]) [address], [address] [place] [address] Hematocrit (Bld) [Volume fraction] 41.0 % Normal 39-49 [facility] Comment on above: Performed By: #### C BCA, BMP, PINR, 08931-4, 45628-4, 3015-3, 7 #### [facility] ([id number]) [address] [place] [address] 25227 #### HA1C #### [facility] ([id number]) [address], [address] [place] [address] Hemoglobin (Bld) [Mass/Vol] 14.0 g/dL Normal 13.0-17.0 [facility] Comment on above: Performed By: #### C BCA, BMP, PINR, 97628-3, 02404-7, 3016-3, 3024-7 #### [facility] ([id number]) [address] [place] [address] 57127 #### HA1C #### [facility] ([id number]) [address], [address] [place] [address] Lymphocytes (Bld) [#/Vol] 2.3 10*3/uL Normal 1.0-3.5 [facility] Comment on above: Performed By: #### C BCA, BMP, PINR, 19024-6, 10564-3, 6-3, 3023-7 #### [facility] ([id number]) [address] [place] [address] 54567 #### HA1C #### [facility] ([id number]) [address], [address] [place] [address] Lymphocytes/100 WBC (Bld) 41.5 % Normal [facility] Comment on above: Performed By: #### C BCA, BMP, PINR, 11353-6, 16296-1, 6-3, 3023-7 #### [facility] ([id number]) [address] [place] [address] 17964 #### HA1C #### [facility] ([id number]) [address], [address] [place] [address] MCH (RBC) [Entitic mass] 31.7 pg Normal 27-34 [facility] Comment on above: Performed By: #### C BCA, BMP, PINR, 31744-3, 65567-3, 3016-3, 3024-7 #### [facility] ([id number]) [address] [place] [address] 33237 #### HA1C #### [facility] ([id number]) [address], [address] [place] [address] MCHC (RBC) [Mass/Vol] 34.1 g/dL Normal 32-36 [facility] Comment on above: Performed By: #### C BCA, BMP, PINR, 64863-9, 45125-5, 3015-3, 7 #### [facility] ([id number]) [address] [place] [address] 89854 #### HA1C #### [facility] ([id number]) [address], [address] [place] [address] MCV (RBC) [Entitic vol] 93 fL Normal 80-100 [facility] Comment on above: Performed By: #### C BCA, BMP, PINR, 83065-9, 41132-8, 3015-3, 7 #### [facility] ([id number]) [address] [place] [address] 36382 #### HA1C #### [facility] ([id number]) [address], [address] [place] [address] Monocytes (Bld) [#/Vol] 0.5 10*3/uL Normal 0-0.9 [facility] Comment on above: Performed By: #### C BCA, BMP, PINR, 39077-9, 94405-7, 3015-3, 7 #### [facility] ([id number]) [address] [place] [address] 91030 #### HA1C #### [facility] ([id number]) [address], [address] [place] [address] Monocytes/100 WBC (Bld) 9.9 % Normal [facility] Comment on above: Performed By: #### C BCA, BMP, PINR, 22671-2, 74360-6, 3016-3, 3023-7 #### [facility] ([id number]) [address] [place] [address] 39190 #### HA1C #### [facility] ([id number]) [address], [address] [place] [address] Neutrophils/100 WBC (Bld) 43.7 % Normal [facility] Comment on above: Performed By: #### C BCA, BMP, PINR, 01245-5, 25389-3, 3015-3, 3024-02 #### [facility] ([id number]) [address] [place] [address] 12708 #### HA1C #### [facility] ([id number]) [address], [address] [place] [address] Platelet mean volume (Bld) [Entitic vol] 8.2 fL Normal 7-12 [facility] Comment on above: Performed By: #### C BCA, BMP, PINR, 87716-8, 81770-2, 3015-3, 3024-02 #### [facility] ([id number]) [address] [place] [address] 69457 #### HA1C #### [facility] ([id number]) [address], [address] [place] [address] Platelets (Bld) [#/Vol] 150 10*3/uL Normal 150-450 [facility] Comment on above: Performed By: #### C BCA, BMP, PINR, 56731-0, 36392-6, 3015-3, 3024-02 #### [facility] ([id number]) [address] [place] [address] 93472 #### HA1C #### [facility] ([id number]) [address], [address] [place] [address] RBC COUNT 4.41 X10E12/L Normal 4.10-5.70 [facility] Comment on above: Performed By: #### C BCA, BMP, PINR, 93714-7, 45420-4, 3016-3, 3024-7 #### [facility] ([id number]) [address] [place] [address] #### HA1C #### [facility] ([id number]) [address], [address] [place] [address] WBC (Bld) [#/Vol] 5.4 10*3/uL Normal 4.0-11.0 [facility] Comment on above: Performed By: #### C BCA, BMP, PINR, 29174-7, 80720-2, 3016-3, 3024-7 #### [facility] ([id number]) [address] [place] [address] #### HA1C #### [facility] ([id number]) [address] [place] [address] CT CTA CAROTIDon 04-17-[address] CTA CAROTID History: Neuro deficit, acute, stroke suspected. Slurred speech Exam/Technique: CT angiogram performed following intravenous administration of 100 mL of Omnipaque 350. Coronal and sagittal and 3-D volume rendered maximum intensity projection images generated and reviewed under concurrent physician supervision. Automated exposure control utilized. The [place] Symptomatic Carotid Endarterectomy Trial (NASCET) method for [...] Armenta MD on 04/17/2024 9:08 AM Normal [facility] CT CTA HEADon 04-17-2024 CT CTA HEAD [...] posterior cerebral arteries. Mild narrowing right P2 [employer]. Unremarkable vertebral, basilar arteries. 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 Unremarkable appearance of the orbits, visualized suprahyoid neck, scalp, brain parenchyma [which is suboptimally assessed]. Impression: No acute large vessel occlusion the major sun'aq of Mtz arterial structures. If there is persistent concern for ischemia, recommend MR. All CT scans at this facility use dose modulation, iterative reconstruction, and/or weight based dosing when appropriate to reduce radiation dose to as low as reasonably achievable. Finalized by Lázaro Solomon MD on 04/17/2024 9:00 AM Normal [facility] FREE T4on 04-17-2024 Free T4 [Mass/Vol] 0.91 ng/dL Normal 0.61-1.60 [facility] Comment on above: Performed By: #### C BCA, BMP, PINR, 13954-1, 17918-1, 3015-3, 7 #### [facility] ([id number]) [address] [place] [address] 47783 #### HA1C #### [facility] ([id number]) [address] [facility], [address] [place] [address] Glucose Glucometer (BldC) [M ass/Vol]on 04-17-2024 Glucose [Mass/Vol] 94 mg/dL Normal 65-99 [facility] HGB A1C (GLYCO-HGB)on 2023 Glucose [Mass/Vol] 134 mg/dL Normal [facility] Comment on above: Performed By: #### C BCA, BMP, PINR, 72901-0, 94960-8, 3, 7 ####[facility] ([id number])[address] [place] [address] 67133#### HA1C ####[facility] ([id number])[address] [facility], [address] [place] [address] HbA1c (Bld) [Mass fraction] 6.3 % High 4.4-5.6 [facility] Comment on above: Result Comment: NOTE ADA Guidelines Result HgbA1c Normal : less than 5.7 % Prediabetes : 5.7 % to 6.4 % Diabetes : > 6.4 % Use with caution in patients with abnormal hemoglobin variants as the half-life of red blood cells and in vivo glycation rates are affected. Performed By: #### C BCA, BMP, PINR, 79186-9, 28755-3, 3015-3, 7 ####[facility] ([id number])[address] [place] [address] 28311#### HA1C ####[facility] ([id number])[address] [place] [address], [address] [address] Lipid 1996 panelon 4 Cholesterol [Mass/Vol] 121 mg/dL Low 150-200 [facility] Comment on above: Performed By: #### 8 9579-7 ####[facility] ([id number])[address] [place] [address] 44118#### 87247-2, 79259-6, 22068-7 ####[facility] ([id number])[address] [place] [address] Cholesterol in HDL [Mass/Vol] 34 mg/dL Low >39 [facility] Comment on above: Result Comment: HDL <40 mg/dL - High Risk HDL > or = 40mg/dL- Desirable HDL >60 mg/dL - Negative Risk Performed By: #### 8 9579-7 ####[facility] ([id number])[address] [place] [address] 50031#### 56058-1, 59784-4, 17603-6 ####[facility] ([id number])[address] [place] [address] Cholesterol in LDL [Mass/Vol] 43 mg/dL Normal <130 [facility] Comment on above: Result Comment: LDL <100 mg/dL - Desirable LDL >160 mg/dL - High Risk Performed By: #### 8 9579-7 ####[facility] ([id number])[address] [place] [address] 07286#### 85837-8, 12021-8, 98823-2 ####[facility] ([id number])[address] [place] [address]841 Cholesterol in VLDL [Mass/Vol] 44 mg/dL High 0-30 [facility] Comment on above: Performed By: #### 8 9579-7 ####[facility] ([id number])[address] [place] [address] 31371#### 49871-9, 73035-1, 69965-0 ####[facility] ([id number])[address] [facility], [address] [place] [address] CHOLESTEROL:HDL 3.6 Normal 1.0-5.0 [facility] Comment on above: Performed By: #### 8 9579-7 ####[facility] ([id number])[address] [place] [address] 91007#### 24687-6, 18410-7, 53101-7 ####[facility] ([id number])[address] [facility], [address] [place] [address] 88211 Triglyceride [Mass/Vol] 218 mg/dL High 27-150 [facility] Comment on above: Performed By: #### 8 9579-7 ####[facility] ([id number])[address] [place] [address] 58245#### 00946-5, 73912-2, 25593-8 ####[facility] ([id number])[address] [place] [address] 57260 MR BRAIN WO CONTon 4 MR BRAIN [...] midline shift or extra axial fluid collection. Asgl-eq-djvlzfuk central greater than peripheral volume loss. Partially [...] Chi Hendrix on 04/17/2024 12:22 PM Normal [facility] Nuclear Ab IA Ql (S)on 04-17 [place] Screen w/reflex Negative Normal NEG [facility] Comment on above: Result Comment: Testing performed using multiplex flow immunoassay. Eleven different antigens associated with systemic autoimmune diseases (dsDNA,Sm,Sm/MARKETING PROGRAMS SPECIALIST,MARKETING PROGRAMS SPECIALIST,Chromatin, SSA,SSB,Vesna-1,Scl70,Ribo P,Centromere B) are included in this screening test. Performed By: #### 8 9579-7 ####[facility] ([id number])[address] [place] [address] 00797#### 76881-6, 03835-1, 86751-5 ####[facility] ([id number])[address] [facility], [address] [place] [address]180 PROTIME AND INRon 04-17-2024 INR Coag (PPP) [Relative time] 1.2 {INR} High 0.8-1.1 [facility] Comment on above: Performed By: #### C BCA, BMP, PINR, 55564-5, 39618-2, 3016-3, 302-7 #### [facility] ([id number]) [address] [place] [address] 31456 #### HA1C #### [facility] ([id number]) [address] [place] [address] PT Coag (PPP) [Time] 13.6 s High 9.8-13.2 [facility] Comment on above: Result Comment: NEW REFERENCE RANGE Performed By: #### C BCA, BMP, PINR, 85293-9, 20953-3, 6-3, 7 #### [facility] ([id number]) [address] [place] [address] 85068 #### HA1C #### [facility] ([id number]) [address] [facility], [address] [place] [address]324 Rheumatoid factor Nephelomet ry Qn (S)on 04-17-2024 RHEUMATOID FACTOR 36 IU/mL High <20 [facility] Comment on above: Performed By: #### 8 9579-7 ####[facility] ([id number])[address] [place] [address]#### 65024-7, 85487-7, 61686-6 ####[facility] ([id number])[address], [address] [place] [address] TSH Qnon 04-17-2024 TSH 1.23 uIU/mL Normal 0.49-4.67 [facility] Comment on above: Performed By: #### C BCA, BMP, PINR, 17249-7, 46899-2, 3016-3, 3024-7 #### [facility] ([id number]) [address] [place] [address] #### HA1C #### [facility] ([id number]) [address] [place] [address] [address] [place] [address] Troponin I.cardiac High sens itivity method [Mass/Vol]on 04-17-2024 1 HOUR TROP I, HIGH SENSITIVITY 8 ng/L Normal <21 [facility] Comment on above: Performed By: #### 8 9579-7 ####[facility] ([id number])[address] [place] [address]#### 93952-1, 14328-8, 89814-6 ####[facility] ([id number])[address] [place] [address], [address] [address] TROPONIN I, HIGH SENSITIVITY 7 ng/L Normal <21 [facility] Comment on above: Performed By: #### C BCA, BMP, PINR, 13310-1, 55059-7, 3016-3, 3024-7 #### [facility] ([id number]) [address] [place] [address] #### HA1C #### [facility] ([id number]) [address] [place] [address] aPTT Coag (PPP) [Time]on aPTT Coag (Bld) [Time] 29 s Normal 26-37 [facility] Comment on above: Result Comment: NEW REFERENCE RANGE Performed By: #### C BCA, BMP, PINR, 33603-3, 34588-8, 3016-3, 3024-7 #### [facility] ([id number]) [address] [place] [address] #### HA1C #### [facility] ([id number]) [address] [place] [address], [address] [place] [address] Urology Office/Clinic Noteon 03-20-2024 Urology Office/Clinic Note Urology Office/Clinic Note Chief Complaint ER f/u *Urinary Retention HPI Staff PRW pt Last seen in our office by INEZ 02/11/24 DX: BPH, Urethral Stricture, Gross Hematuria & UTI PVR at that time 108ml Here today to follow up to [facility] ER 03/11/24 CC: Urinary Retention [...] (cc): 02/11/24 - 108 Pt presented to [facility] ER 03/11/24 with UR. PVR [...] Follo (more content not included)... Normal Nuñez [facility] Comment on above: Result Comment: Elec [...] solution) fluticasone nasal (fluticasone Nasal 0.05 mg/inh Mccaskill) hyoscyamine (hyoscyamine 0.125 mg sublingual Tab) icosapent [...] APRN, [place] [facility] Where: [facility] [address] [address]- You Need to Schedule the Following Appointments [...] fluticasone nasal (fluticasone Nasal 0.05 mg/ inh Mccaskill) instill 1 spray into each nostril once [...] urinary ret (more content not included)... [facility] Coding Summary.on 02-19-2024 Coding Summary. JVZNPpsd64POh7pAs+PG hlYWQ+UC8TXPWvX12guE SplN2qK3KIJKpTMrhcUN HFEQiMHfYnprXiWF7moM NjZXJu IC8+YE0fWQXqOdfgbIOl k2D3yDL6E22pko7uLAlz dIW4VIVcUdWnvblpi5sl lAf2HOqgNczzOxMj JJSrbM72GLJ6vS60Cn70 bOGkqBUza7avjGs8HbAu EZWmLFG7cSqhRJxyd3Os BSXyM53ocDRqx4U7 IGNvbGxhcHNlOyBlbXB0 cG1pEBdetuqxs9ddskvc Sak7rh87bERzy3G2iNM2 F2LoigF4MRGlfEKo OqcwoHDLsR2epcpmq8md buhlEjCuMXXkEDy2JVe1 MSCthOfmTcNwMT47BOA5 NGMhepThO6ElJMAy xQyaZoZ2g7H0Jn0PN5EF CxkrR8XSOPVEFSpnwDV+ BA04gi65U6LiTynwPif8 QAFsJEK6rSA6vV5x QBFoBPlum4N3nOR3F6Nb fiKwce1cd5lkKJBdEMfg Z57faVHmy2U9ZHGpjUE3 DLWihWutAeQjvL81 Oyc+PSKyoGeuj3NuMuuw b6pfw6jwyNk9HondMHJb mvTcqBlpUGE8b9IsBe5w CYPycAZ4fCU7qB1h UfPsXzF4OKbnK566GeLz bKIvYsskC31aP5GgsDI+ VXYwBer4AEUykEikSP0o O5SqFBSeqhtgjDBp aHgmZZ9tFBFmzgreHEKb nR4sIIYzA6z1IgXdJsB1 QByqQ9BtBBIxlvubXc65 kK2xEoKtHrD2STee E6XienS6CBPblFOvACaf RNW3O55ah9Y1XSVgEZQf KRY0vMF3iL9ibYjafkkc bGVmdDsgdmVydGlj YDwtYSlsM479SQVxyMch PkNvZGluZyBEYXRlOiAg MDYvMjYvMjAyNDwvdGQ+ MSQbUEQ1cSctLYOc lUSuFAplPf3kaIxruIzs SO6dAPInmapvDVVolW5h ACFbxJHoiAmzOD8mDTLb uaxyv914IdXfQAB2 GEXljLLvA9FdpO2rOhEu FBArXAWhZ9HiaARbJUdw G900LIybPoA1WTQuwgDr A3CrGJVfkWlcJyM9 v4T7Im7Ri9DdiiizY8Ey tVYaRcGbJgozBVm7K3Qx PjwvdHI+NN58NHKyOV36 WBs7QNC6pOakITgr XFMoN3RazH8gBtAjKMHr ZGRkOyc+PHRhYmxlIHdp ZHRoPScxMDAlJyBzdHls IR1jQu5eNSXqRLRn oQbmvZOdCfMdz4vzDIRv YIymVD2iaQhsH7PxaIU3 ZTAcu2g7Sm75G43jZ5Oe dXA+LLIwjRE1rOK7 yW5bTeTuHvJ1WGxdQ494 XjJbdGXdTxsav6wkm1st kBq5RyB6USAcgnGtzKmb KQM4s8MrWs01V70i IHdpZHRoPSIxNSUiIHZh cIfwqh1pkI2nMl1+PGNv aWL1vKK5dC4rZqFhRrO9 HSyoQ948TqZabODa Otffo1vxx8pkzIo9SfMd QLPmgoQwvBtxXVA9r4Zd Pm82B6XvmDexi2SmFly5 po39dCWqm5S9kTS1 X1NnYSKugsohpEGgpDeb XA9cTATizjpbKLLidP8k UFHtL3g9GtIoGxC3NBzn G7HdpwD7ADFocSLa ZXUqlGLQlP2nzsepn6wu sqzvFuXfSQDdLRo8ASb1 IUNnfNueGfNxAZI8PnA1 BEC9eSBuuA1sbZzr qifsiW6jDtg+ONF5nRDn fXLFOJ5gCxlufBL+PHRk RCG7pWekMEzfYDYgxW4s DJCaA7i8IyHoYwX9 QMqpJ8NrtoP6UMVqeCIi DSBreHOOtM8ksoowm5dr kdwmVzWcLIOfNIv3HVy3 LWFsaWduOiBsZWZ0 FpN8VWT9sWFodJ1cxPri tgxfhR2zTjp+QmlydGgg RKJ5QRv6O6StYsz1ISDa fZowMH1rbRXhRIop Pk5puIfdqFqaSY1kDVVz fuxtz854CxBnd9usSSCc sCBbRTdlQSF2K30ed3W9 XYTtCTGjVBN6vWX1 aL5fyPpwuvkweLWxeWgo ocCjcVklHIhxELoyT918 NOWchEvjDsJiCQl5A5Ov Cer9DXZswUlwEP1a uEQgNTowOi7hzNkzzHuf CI2uMGOphgtag308CuNr i4kgOUNnaJVtIAwmYOX5 M39oj3R8MPGpNIGd ZKH3dZO0wO3ddRxxvcal bGVmdDsgdmVydGljYWwt LZxaC587YQPyvYlmOjYx xXw8V9CyTsa8KCXw uJkpZC1okKRfUBksUa7y oFvctDxyPS0jDNKxophj p585FtPvw6tgFTWufNDu SHrrESS4J84hs3F5 APTcXJKhKQD6tXM4pI2n bGlnbjogbGVmdDsgdmVy gEefEVlgBQomT354VGSi cDsnPlBhdGllbnQg JTslEGt1N1VlVhbswXR+ VI06SVOoDA41nNSapFRk n0beyTx2XoMeGIFzFJA0 sVhwBIwjs3QqLSSv V37sbOXbl2S9CNCynNre bUQwAyKhbIH3eF2aCEuj expxv4lxzohqBowmm3th wy19xC22W46wYMyt ZHRoPSIzMCUiIHZhbGln yz7mhN8jOl0+PGNvbCB3 lTT9uR7zCRYaCsD5VIul H565PuKxtNWuOpux z4xmt7nnmJl1WzY5QALb ydDkcXgeZZI5m8HvEe56 Y31oOSioKBUyBMGuRPKu YKCijLskul4iwT0z Ii8+XGXiwMD3gJL3mP8b GeJtQsV2MKbtK441PwDx tKMuEfjtY33rH9NkhXY+ ECHsYzt3LJSkkVtd SV0enYIjFJbrTg3vKMQ1 PaYcVsTyDMclE7OvFJUe vavxuwvfaSF9DWQtTFMi mZ12Wk8smLuuGNGd xXEUpV8kimmau7tjlwdu JlFgCHSxLLh4WZg1OCCm jLikMqFmOHG9YlK2FCM1 kXUfuC2fgNerclop iS7oY7UnFTGrrgegIx86 bA9oExKoZdT6QLzlFjj+ O3DYAH2KAUMYH063P5Et Jhu0LNSwuGikPH9n vUXaXQiwPq2xpEwcjTil CX6rOQXjskmzPSGguX7e YYXovCNdkWmeYV3wIGGp lovzq797QgNzXNO2 QOEhpJKuQ9ZuiQ0jHdAk PFLbBNXfO8RykWMyUVzn V250OVyvZgX0NWYjloHl F7SyHUIczMvrWkG3 i1H8Zc9eYG4zWB3mRBVw BD74CN02mCNpf1W7lWO2 K5OmJYAofvoouxeirAI3 RFNtZQZcgK78jGEk JRlnKo6vl9W3n229NWEt MDDviX02Hf4djZutSTDd yTMXvE5hgagbj7ysgxms JhWfCESfEAu1CNd0 YLYrsWjrZdUxAJP0TiX7 ZCR2vNQlcR6rmOqokgly rJ1kRtf+ODEgWWVhcnM8 D6RuGtk1YHHlbFyx AS7qfVQgYHroGs8zrBjq yGvkBG6yJBXznnciAIZb yZ6iOBWkdZSyzUqyOQ5o GTQlfkquo056TfBi YRL4WPUagNSoM2YmxF6z ZkRmJUYtKHPzJ7DqbEZi EAkbU587BImmYpP8MGSi zsMlH0LxIYOtbUcr SlM4h8E7Fu0KWIzqQX18 PK48cHQkx3S6nEC4X5If PRFumybevvhfgRG7YSVx DFHjzR86fSAzXKwp Dp5vp8F1f129IBNfJVAn yZ72Ho2veCtnDGHoyXUX pV2nxdkal9isqerxMeVv EQQoIVe2GFl4ZAGw xFsbIuYyTBS4UgT1BZR3 yXYiaA1giYikuezacF3o Oyc+LNFwXHQqv6Ftk5Pc ED68PH32H4BxMvnk dGFibGU+PHRhYmxlIHdp ZHRoPScxMDAlJyBzdHls WZ1wLt6vNIPtYDGxmDei nFAmXuZtg4wpXJIs RNzwJI6drSjzQ2PvvZD7 YRNih4r8Pc66A13kO4Nb dXA+CTQxuJP9lML8lE9o MjVfOdK3NNcoX085 IuYxsVQnSgipa3mps7mu nKi0MhFjRDRrauSgpDga MEN0k5SsWd88R11yAQtz ZHRoPSIyMCUiIHZh vKazsm7zlA9bTg5+PGNv wYW3gWX7lO2kQlYuSkP9 KCssO118WsBpcTBtWxih J98gK7QfoEA+PHRy Nvr3WDUbtXkdZH8oyRNc DBefRb6wCDA2JbNxOvGy LKrzJ1ZbNFMeztnrtepl tGI5BMOcCWOsrD89 Tz9vwAyoNi2dCVKjBTD5 CRNmhQFqI5KqeH1nVbEc RPOlSCMmJ7FglCOrAIxw N657PVcnGtG3GKVt nhGhV3XwAIVscFcnCpE8 u3Z3Cc0AlLjsxNNqFI6d UtKmJUo2R9SqQnm3SDKr jMkgPP6ymTRpWYhz Mm5xhTiviYwsJO6fTVVm rdeyz992UlBjq4mrGDHd bCQbTVelOSD2U10ba2K5 VKUgFOJrRGM6fCN5 xQ5diEhahtouvVLyoVcw aiFzhIhvSItrITakL100 WPXrgPmvUrVOCnz3C1Az Lax7XVSohOiwYC6j rQYpNKkzOu3yyOuqaUsp XI0sSJNlnixru940FfXr e3wwNMYmuRTiAWrfIDJ6 Y44zz6W1GGXqHSLy PJJ9aMO9bL4btNpsrtcx bGVmdDsgdmVydGljYWwt FTvfR052AHOldDljKy5U Uus9J3VqAhh1YXJu gNcyXA9yqLWvCJekSr9p nLbfrGuoGI7jZQBlbona m837XfHrk3nbWDAgzZKy NKikDPM3Y88xq1T1 ENKkAHAwYWX9vBR6mR9l bGlnbjogbGVmdDsgdmVy dGsbIUqkHZosO774BVHs cDsnPlBheWVyOjwv dGQ+NW51la96K3DuHbtz Tqm3RGIsPEZ3mKE3oK5t FNBvNIvuj8J2pTV5Z5Ws mvBhju2dc5idWGOr MJraU03hlAGrb (more content not included)... [facility] C Urineon 02-13-2024 Bacteria identified Cx Nom (U) Microbiology PROCEDURE: Urine Culture [R1] SOURCE: U Random BODY SITE: COLLECTED DATE/TIME: 02/11/2024 10:06 EDT RECEIVED DATE/TIME: 02/11/2024 18:24 EDT START DATE/TIME: 02/11/2024 18:24 EDT FREE TEXT SOURCE: KIM Lino APRN, Zoie ESCORT PATIENTS, SUPERVISOR CONTACT AND SERVICE CLERKS-C, Lazara X Lazara X FINAL REPORTS Final [...] Locations R1: This test was performed at: [facility], [address] [place] [address], [id number] , [place], [facility] Comment on above: Performed By: #### 2 [id number] #### [facility] [address] [place] [address] Screenson 02-12-2024 Screens [id number] 7#[id number] [facility] Ambulatory Visit Summaryon 0 02-11-2024 Ambulatory Visit [...] Urology [address], [place] [address] [id number] Medications What How Much When Instructions Unchanged [...] choosing us for your care. Catrachita Nuñez [facility] Patient Educationon 02-11-20 Patient Education Urology Hematuria, [...] these instructions at home: Medicines ? Take edct-zip-hynvpch and prescription medicines only as told by [...] the blood stops without treatment. ? Take zbyp-nzr-vnqgjsh and prescription medicines only as told by your health care provider. ? Drink enough fluid to keep your urine pale yellow. This information is not intended to replace advice given to you by your health care provider. Make sure you discuss any questions you have with your health care provider. Document Revised: 04/12/2021 Document Reviewed: 04/12/2021 [employer] Patient Education ? 2022 [employer]. Benign Prostatic Hyperplasia Benign prostatic hyperplasia (BPH) [...] the nig (more content not included)... [facility] Urology Office/Clinic Noteon 02-11-2024 Urology Office/Clinic Note [...] with voice recognition artificial intelligence software, specifically [employer], [employer] and or [employer]. Substitutions may have occurred due to the [...] Urnls Dip Stick Auto w/o Microscopy POC 31239 2. Urethral stricture in male (N35.919: Unspecified [...] [facility] [address], [place] [address] [phone] Additional Instructions: Patient Education Hematuria, Adult Benign [...] Rhopressa 0.02% (more content not included)... [facility] Comment on above: Result Comment: Elec tronically Signed By: KIM Lino APRN, Lazara Echavarria\.br\Date and Time Signed: 02/11/24 10:41 EDT COVID/FLU RT-PCRon 3 SARS-CoV-2 (COVID-19) RNA TERRIE+probe Ql (Unsp spec) Positive [employer] Other COVID/FLU RT-PCR Negative NXT-ID [facility] [employer] Other XR KNEE RT 3Von 01-23-2023 XR KNEE RT 3V EXAM: XR KNEE RT 3V HISTORY: Osteoarthritis of knee COMPARISON: None TECHNIQUE: 3 views FINDINGS: No acute fracture or dislocation. Moderate to severe degenerative changes. Unremarkable soft tissues. IMPRESSION: Moderate to severe degenerative changes. Electronically authenticated by: CALVIN BARNES Date: 2023-01-23 13:29 Normal [facility] INSULINon 09-25-2022 Insulin 6.0 uIU/mL Normal 2.6-24.[address] [facility] Comment on above: Performed By: #### I NSULIN #### [facility] [address] [place] [address] Dr. Wally Zapien BNPon 09-24-2022 Natriuretic peptide B (Bld) [Mass/Vol] 110.0 pg/mL Normal <=1,800.0 [facility] Comment on above: Performed By: #### U RCX #### [facility] [address] [place] [address] Dr. Wally Zapien CBC AUTO DIFFon 09-24-2022 BASO # 0.0 103/ul Normal 0.0-0.1 [facility] Comment on above: Performed By: #### C BC #### [facility] [address] [place] [address] Dr. Wally Zapien Basophils/100 WBC (Bld) 1.0 % Normal 0.2-2.0 [facility] Comment on above: Performed By: #### C BC #### [facility] [address] [place] [address] Dr. Wally Zapien EO # 0.2 103/ul Normal 0.0-0.7 [facility] Comment on above: Performed By: #### C BC #### [facility] [address] [place] [address] Dr. Wally Zapien Eosinophils/100 WBC (Bld) 4.2 % Normal 0.9-7.0 [facility] Comment on above: Performed By: #### C BC #### [facility] [address] [place] [address] Dr. Wally Zapien Erythrocyte distribution width (RBC) [Ratio] 12.5 % Normal 11.0-15.0 [facility] Comment on above: Performed By: #### C BC #### [facility] [address] [place] [address] Dr. Wally Zapien Hematocrit (Bld) [Volume fraction] 43.7 % Normal 42.0-54.[address] [facility] Comment on above: Performed By: #### C BC #### [facility] [address] [place] [address] Dr. Wally Zapien Hemoglobin (Bld) [Mass/Vol] 15.4 g/dL Normal 14.0-18.0 [facility] Comment on above: Performed By: #### C BC #### [facility] [address] [place] [address] Dr. Wally Zapien IG # 0.02 10e3/ul Normal 0.00-0.03 [facility] Comment on above: Performed By: #### C BC #### [facility] [address] [place] [address] Dr. Wally Zapien IG % 0.5 % Normal 0.0-0.5 [facility] Comment on above: Performed By: #### C BC #### [facility] [address] [place] [address] Dr. Wally Zapien LYMPH # 1.7 103/ul Normal 1.2-3.8 [facility] Comment on above: Performed By: #### C BC #### [facility] [address] [place] [address] Dr. Wally Zapien Lymphocytes/100 WBC (Bld) 42.6 % Normal 20.5-60.0 [facility] Comment on above: Performed By: #### C BC #### [facility] [address] [place] [address] Dr. Wally Zapien MANUAL DIFF REQ NO Normal [facility] Comment on above: Performed By: #### C BC #### [facility] [address] [place] [address] Dr. Wally Zapien MCH (RBC) [Entitic mass] 31.6 pg Normal 25.9-34.0 [facility] Comment on above: Performed By: #### C BC #### [facility] [address] [place] [address] Dr. Wally Zapien MCHC (RBC) [Mass/Vol] 35.2 g/dL Normal 29.9-35.2 [facility] Comment on above: Performed By: #### C BC #### [facility] [address] [place] [address] Dr. Wally Zapien MCV (RBC) [Entitic vol] 89.5 fL Normal 80.0-94.0 [facility] Comment on above: Performed By: #### C BC #### [facility] [address] [place] [address] Dr. Wally Zapien MONO # 0.4 103/ul Normal 0.3-0.8 [facility] Comment on above: Performed By: #### C BC #### [facility] [address] [place] [address] Dr. Wally Zapien Monocytes/100 WBC (Bld) 9.2 % Normal 1.7-12.0 [facility] Comment on above: Performed By: #### C BC #### [facility] [address] [address] [address] Wally Zapien NEUT # 1.7 103/ul Normal 1.4-6.5 [facility] Comment on above: Performed By: #### C BC #### [facility] [address] [place] [address] Dr. Wally Zapien Neutrophils/100 WBC (Bld) 42.5 % Critically low 43.0-75.0 [facility] Comment on above: Performed By: #### C BC #### [facility] [address] [place] [address] Dr. Wally Zapien Platelet mean volume (Bld) [Entitic vol] 9.9 fL Normal 9.5-13.5 [facility] Comment on above: Performed By: #### C BC #### [facility] [address] [place] [address] Dr. Wally Zapien PLT 149 103/ul Critically low 150-450 [facility] Comment on above: Performed By: #### C BC #### [facility] [address] [place] [address] Dr. Wally Zapien RBC 4.88 106/ul Normal 4.70-6.[address] [facility] Comment on above: Performed By: #### C BC #### [facility] [address] [place] [address] Dr. Wally Zapien WBC 4.0 103/ul Normal 4.0-11.[address] [facility] Comment on above: Performed By: #### C BC #### [facility] [address] [place] [address] Dr. Wally Zapien CULTURE URINEon 09-24-2022 CULTURE URINE Culture Observations: LIGHT GROWTH OF MIXED SKIN GENNA. NO POTENTIAL PATHOGENS SEEN. Normal [facility] Comment on above: Performed By: #### U RCX #### [facility] [address] [address] [address] Wally Zapien FREE THYROXINE INDEX T7on FTI 2.52 Normal 1.30-4.50 [facility] Comment on above: Performed By: #### U RCX #### [facility] [address] [place] [address] Dr. Wally Zapien T3U 36.0 % Normal 33.0-40.0 [facility] Comment on above: Performed By: #### U RCX #### [facility] [address] [place] [address] Dr. Wally Zapien T4 [Mass/Vol] 7.00 ug/dL Normal 4.50-12.10 [facility] Comment on above: Performed By: #### U RCX #### [facility] [address] [place] [address] Dr. Wally Zapien GLYCOHEMOGLOBIN A1Con 2022 ADA RECOMMENDATION SEE BELOW Normal [facility] Comment on above: Result Comment: ADA RECOMMENDED LIMIT 4.0 - 6.0 ADA THERAPEUTIC TARGET < 7.0 ACTION SUGGESTED > 7.0 Performed By: #### A 1C #### [facility] [address] [place] [address] Dr. Wally Zapien Glucose [Mass/Vol] 123 mg/dL Normal [facility] Comment on above: Performed By: #### A 1C #### [facility] [address] [place] [address] Dr. Wally Zapien HbA1c (Bld) [Mass fraction] 5.9 % Normal 4.5-6.2 [facility] Comment on above: Performed By: #### A 1C #### [facility] [address] [place] [address] Dr. Wally Zapien LIPID PROFILEon 09-24-2022 CHOL-HDL RATIO NORM SEE BELOW Normal [facility] Comment on above: Result Comment: 3.3 - 4.4 LOW RISK 4.4 - 7.1 AVERAGE RISK 7.1 - 11.0 MODERATE RISK >11.0 HIGH RISK Performed By: #### U RCX #### [facility] [address] [address] [address] Wally Zapien Cholesterol [Mass/Vol] 117 mg/dL Normal <=200 [facility] Comment on above: Performed By: #### U RCX #### [facility] [address] [address] [address] Wally Zapien Cholesterol in HDL [Mass/Vol] 38 mg/dL Critically low 40-60 [facility] Comment on above: Performed By: #### U RCX #### [facility] [address] [address] [address] Wally Zapien Cholesterol in LDL [Mass/Vol] 32.6 mg/dL Normal [facility] Comment on above: Performed By: #### U RCX #### [facility] [address] [address] [address] Wally Zapien Cholesterol.total/Ch olesterol in HDL [Mass ratio] 3.1 {ratio} Normal [facility] Comment on above: Performed By: #### U RCX #### [facility] [address] [address] [address] Wally Zapien HDL NORMAL > or = 60 mg/dl - LOW CARDIOVASCULAR RISK <40 mg/dl - HIGH CARDIOVASCULAR RISK Normal [facility] Comment on above: Performed By: #### U RCX #### [facility] [address] [address] [address] Wally Zapien LDL CALC NORMAL SEE BELOW Normal [facility] Comment on above: Result Comment: <100 mg/dl OPTIMAL 100 - 129 mg/dl NEAR OR ABOVE OPTIMAL 130 - 159 mg/dl BORDERLINE HIGH 160 - 189 mg/dl HIGH >190 mg/dl VERY HIGH Performed By: #### U RCX #### [facility] [address] [address] [address] Wally Zapien Triglyceride [Mass/Vol] 232 mg/dL Critically high <=150 [facility] Comment on above: Performed By: #### U RCX #### [facility] [address] [address] [address] Wally Zapien VLDL CALC 46.4 mg/dL Normal [facility] Comment on above: Performed By: #### U RCX #### [facility] [address] [place] [address] Dr. Wally Zapien PROF 14(COMP METB)on 023 Albumin [Mass/Vol] 3.8 g/dL Normal 3.4-5.0 [facility] Comment on above: Performed By: #### B BEAUTY COUNSELOR, T7, LIPID, TSH, CMP, URIC #### [facility] [address] [place] [address] Dr. Wally Zapien Albumin/Globulin [Mass ratio] 1.2 {ratio} Normal [facility] Comment on above: Performed By: #### B BEAUTY COUNSELOR, T7, LIPID, TSH, CMP, URIC #### [facility] [address] [place] [address] Dr. Wally Zapien ALP [Catalytic activity/Vol] 80 U/L Normal 46-116 [facility] Comment on above: Performed By: #### B BEAUTY COUNSELOR, T7, LIPID, TSH, CMP, URIC #### [facility] [address] [place] [address] Dr. Wally Zapien ALT [Catalytic activity/Vol] 34 U/L Normal 16-63 [facility] Comment on above: Performed By: #### B BEAUTY COUNSELOR, T7, LIPID, TSH, CMP, URIC #### [facility] [address] [place] [address] Dr. Wally Zapien Anion gap [Moles/Vol] 11.3 mmol/L Normal [facility] Comment on above: Performed By: #### B BEAUTY COUNSELOR, T7, LIPID, TSH, CMP, URIC #### [facility] [address] [place] [address] Dr. Wally Zapien AST [Catalytic activity/Vol] 24 U/L Normal 15-37 [facility] Comment on above: Performed By: #### B BEAUTY COUNSELOR, T7, LIPID, TSH, CMP, URIC #### [facility] [address] [place] [address] Dr. Wally Zapien Bilirubin [Mass/Vol] 1.0 mg/dL Normal 0.2-1.0 [facility] Comment on above: Performed By: #### B BEAUTY COUNSELOR, T7, LIPID, TSH, CMP, URIC #### [facility] [address] [place] [address] Dr. Wally Zapien Calcium [Mass/Vol] 8.5 mg/dL Normal 8.5-10.1 [facility] Comment on above: Performed By: #### B BEAUTY COUNSELOR, T7, LIPID, TSH, CMP, URIC #### [facility] [address] [place] [address] Dr. Wally Zapien Chloride [Moles/Vol] 105 mmol/L Normal 98-[address] [facility] Comment on above: Performed By: #### B BEAUTY COUNSELOR, T7, LIPID, TSH, CMP, URIC #### [facility] [address] [place] [address] Dr. Wally Zapien CO2 [Moles/Vol] 28.6 mmol/L Normal 21.0-32.0 [facility] Comment on above: Performed By: #### B BEAUTY COUNSELOR, T7, LIPID, TSH, CMP, URIC #### [facility] [address] [place] [address] Dr. Wally Zapien Creatinine [Mass/Vol] 0.74 mg/dL Normal 0.70-1.[address] [facility] Comment on above: Performed By: #### B BEAUTY COUNSELOR, T7, LIPID, TSH, CMP, URIC #### [facility] [address] [place] [address] Dr. Wally Zapien EGFR-AF ARGENTINE >60 Normal >=60 [facility] Comment on above: Performed By: #### B BEAUTY COUNSELOR, T7, LIPID, TSH, CMP, URIC #### [facility] [address] [place] [address] Dr. Wally Zapien EGFR-NON AF ARGENTINE >60 Normal >=[address] [facility] Comment on above: Performed By: #### B BEAUTY COUNSELOR, T7, LIPID, TSH, CMP, URIC #### [facility] [address] [place] [address] Dr. Wally Zapien Globulin (S) [Mass/Vol] 3.2 g/dL Normal [facility] Comment on above: Performed By: #### B BEAUTY COUNSELOR, T7, LIPID, TSH, CMP, URIC #### [facility] [address] [address] [address] Wally Zapien Glucose [Mass/Vol] 102 mg/dL Normal 74-106 [facility] Comment on above: Performed By: #### B BEAUTY COUNSELOR, T7, LIPID, TSH, CMP, URIC #### [facility] [address] [place] [address] Dr. Wally Zapien Potassium [Moles/Vol] 3.9 mmol/L Normal 3.5-5.[address] [facility] Comment on above: Performed By: #### B BEAUTY COUNSELOR, T7, LIPID, TSH, CMP, URIC #### [facility] [address] [place] [address] Dr. Wally Zapien Protein [Mass/Vol] 7.0 g/dL Normal 6.4-8.2 [facility] Comment on above: Performed By: #### B BEAUTY COUNSELOR, T7, LIPID, TSH, CMP, URIC #### [facility] [address] [place] [address] Dr. Wally Zapien Sodium [Moles/Vol] 141 mmol/L Normal 136-145 [facility] Comment on above: Performed By: #### B BEAUTY COUNSELOR, T7, LIPID, TSH, CMP, URIC #### [facility] [address] [place] [address] Dr. Wally Zapien Urea nitrogen [Mass/Vol] 19.0 mg/dL Critically high 7.0-18.[address] [facility] Comment on above: Performed By: #### B BEAUTY COUNSELOR, T7, LIPID, TSH, CMP, URIC #### [facility] [address] [place] [address] Dr. Wally Zapien Urea nitrogen/Creatinine [Mass ratio] 25.7 mg/mg Normal [facility] Comment on above: Performed By: #### B BEAUTY COUNSELOR, T7, LIPID, TSH, CMP, URIC #### [facility] [address] [place] [address] Dr. Wally Zapien TSHon 09-24-2022 TSH 1.535 uIU/mL Normal 0.358-3.740 [facility] Comment on above: Performed By: #### U RCX #### [facility] [address] [address] [address] Wally Zapien UA RANDOM W/MICROSCOPICon BACTERIA NONE SEEN Normal NONE SEEN [facility] Comment on above: Performed By: #### U RCX #### [facility] [address] [place] [address] Dr. Wally Zapien Bilirubin Ql (U) Negative Normal NEGATIVE [facility] Comment on above: Performed By: #### U RCX #### [facility] [address] [address] [address] Wally Zapien CAST NONE SEEN Normal NONE SEEN [facility] Comment on above: Performed By: #### U RCX #### [facility] [address] [place] [address] Dr. Wally Zapien Clarity (U) CLEAR Normal CLEAR [facility] Comment on above: Performed By: #### U RCX #### [facility] [address] [address] [address] Wally Zapien Color (U) YELLOW Normal YELLOW [facility] Comment on above: Performed By: #### U RCX #### [facility] [address] [place] [address] Dr. Wally Zapien Crystals LM Nom (Urine sed) NONE SEEN Normal NONE SEEN [facility] Comment on above: Performed By: #### U RCX #### [facility] [address] [place] [address] Dr. Wally Zapien Epithelial cells LM Ql (Urine sed) FEW Abnormal NONE SEEN /RARE [facility] Comment on above: Performed By: #### U RCX #### [facility] [address] [address] [address] Wally Zapien Glucose Ql (U) Negative Normal NEGATIVE [facility] Comment on above: Performed By: #### U RCX #### [facility] [address] [address] [address] Wally Zapien Hemoglobin Ql (U) TRACE-INTACT Abnormal NEGATIVE [facility] Comment on above: Performed By: #### U RCX #### [facility] [address] [address] [address] Wally Zapien Ketones Ql (U) Negative Normal NEGATIVE [facility] Comment on above: Performed By: #### U RCX #### [facility] [address] [address] [address] Wally Zapien LEUKOCYTES Negative Normal NEGATIVE [facility] Comment on above: Performed By: #### U RCX #### [facility] [address] [address] [address] Wally Zapien MUCOUS LARGE Abnormal NONE SEEN [facility] Comment on above: Performed By: #### U RCX #### [facility] [address] [address] [address] Wally Zapien Nitrite Ql (U) Negative Normal NEGATIVE [facility] Comment on above: Performed By: #### U RCX #### [facility] [address] [place] [address] Dr. Wally Zapien pH (U) 6.5 [pH] Normal 5-[address] [facility] Comment on above: Performed By: #### U RCX #### [facility] [address] [address] [address] Wally Zapien RBC 2-5 Abnormal 0-2 [facility] Comment on above: Performed By: #### U RCX #### [facility] [address] [address] [address] Wally Zapien SPEC GRAVITY 1.025 Normal 1.005-<=1.025 [facility] Comment on above: Performed By: #### U RCX #### [facility] [address] [place] [address] Dr. Wally Zapien UA PROTEIN TRACE Normal NEGATIVE/ TRACE [facility] Comment on above: Performed By: #### U RCX #### [facility] [address] [address] [address] Wally Zapien Urobilinogen Qn (U) 1.0 {Suma'U}/dL Normal 0.2 - 1. 0 [facility] Comment on above: Performed By: #### U RCX #### [facility] [address] [place] [address] Dr. Wally Zapien WBC 0-2 Abnormal NONE SEEN [facility] Comment on above: Performed By: #### U RCX #### [facility] [address] [place] [address] Dr. Wally Zapien URIC ACID SERUMon 09-24-2022 Urate [Mass/Vol] 3.7 mg/dL Normal 3.5-7.2 [facility] Comment on above: Performed By: #### B BEAUTY COUNSELOR, T7, LIPID, TSH, CMP, URIC #### [facility] [address] [place] [address] Dr. Wally Zapien VITAMIN D 25 OHon 09-24-2022 VIT D 25-OH 42.6 ng/mL Normal [facility] Comment on above: Performed By: #### U RCX #### [facility] [address] [place] [address] Dr. Wally Zapien VIT D RANGES SEE BELOW Normal [facility] Comment on above: Result Comment: <20 ng/mL Vit D deficient 20 - <30 ng/mL Vit D insufficient 30 - 100 ng/mL Vit D sufficient >100 ng/mL Potential Toxicity Performed By: #### U RCX #### [facility] [address] [place] [address] Dr. Wally Zapien CBC AUTO DIFFon 09-18-2022 BASO # 0.0 103/ul Normal 0.0-0.1 [facility] Comment on above: Performed By: #### C BC #### [facility] [address] [place] [address] Dr. Wally Zapien Basophils/100 WBC (Bld) 0.7 % Normal 0.2-2.[address] [facility] Comment on above: Performed By: #### C BC #### [facility] [address] [place] [address] Dr. Wally Zapien EO # 0.1 103/ul Normal 0.0-0.[address] [facility] Comment on above: Performed By: #### C BC #### [facility] [address] [place] [address] Dr. Wally Zapien Eosinophils/100 WBC (Bld) 2.8 % Normal 0.9-7.0 [facility] Comment on above: Performed By: #### C BC #### [facility] [address] [place] [address] Dr. Wally Zapien Erythrocyte distribution width (RBC) [Ratio] 12.7 % Normal 11.0-15.0 [facility] Comment on above: Performed By: #### C BC #### [facility] [address] [place] [address] Dr. Wally Zapien Hematocrit (Bld) [Volume fraction] 44.1 % Normal 42.0-54.0 [facility] Comment on above: Performed By: #### C BC #### [facility] [address] [place] [address] Dr. Wally Zapien Hemoglobin (Bld) [Mass/Vol] 15.3 g/dL Normal 14.0-18.0 [facility] Comment on above: Performed By: #### C BC #### [facility] [address] [place] [address] Dr. Wally Zapien IG # 0.01 10e3/ul Normal 0.00-0.03 [facility] Comment on above: Performed By: #### C BC #### [facility] [address] [place] [address] Dr. Wally Zapien IG % 0.2 % Normal 0.0-0.5 [facility] Comment on above: Performed By: #### C BC #### [facility] [address] [place] [address] Dr. Wally Zapien LYMPH # 1.8 103/ul Normal 1.2-3.[address] [facility] Comment on above: Performed By: #### C BC #### [facility] [address] [place] [address] Dr. Wally Zapien Lymphocytes/100 WBC (Bld) 43.0 % Normal 20.5-60.[address] [facility] Comment on above: Performed By: #### C BC #### [facility] [address] [place] [address] Dr. Wally Zapien MANUAL DIFF REQ NO Normal [facility] Comment on above: Performed By: #### C BC #### [facility] [address] [place] [address] Dr. Wally Zapien MCH (RBC) [Entitic mass] 32.1 pg Normal 25.9-34.0 [facility] Comment on above: Performed By: #### C BC #### [facility] [address] [place] [address] Dr. Wally Zapien MCHC (RBC) [Mass/Vol] 34.7 g/dL Normal 29.9-35.2 [facility] Comment on above: Performed By: #### C BC #### [facility] [address] [place] [address] Dr. Wally Zapien MCV (RBC) [Entitic vol] 92.5 fL Normal 80.0-94.0 [facility] Comment on above: Performed By: #### C BC #### [facility] [address] [place] [address] Dr. Wally Zapien MONO # 0.4 103/ul Normal 0.3-0.8 [facility] Comment on above: Performed By: #### C BC #### [facility] [address] [place] [address] Dr. Wally Zapien Monocytes/100 WBC (Bld) 9.2 % Normal 1.7-12.0 [facility] Comment on above: Performed By: #### C BC #### [facility] [address] [place] [address] Dr. Wally Zapien NEUT # 1.9 103/ul Normal 1.4-6.[address] [facility] Comment on above: Performed By: #### C BC #### [facility] [address] [place] [address] Dr. Wally Zapien Neutrophils/100 WBC (Bld) 44.1 % Normal 43.0-75.0 [facility] Comment on above: Performed By: #### C BC #### [facility] [address] [place] [address] Dr. Wally Zapien Platelet mean volume (Bld) [Entitic vol] 10.4 fL Normal 9.5-13.5 [facility] Comment on above: Performed By: #### C BC #### [facility] [address] [place], [place] [address] Dr. Wally Zapien PLT 152 103/ul Normal 150-[address] [facility] Comment on above: Performed By: #### C BC #### [facility] [address] [place], [place] [address] Dr. Wally Zapien RBC 4.77 106/ul Normal 4.70-6.10 [facility] Comment on above: Performed By: #### C BC #### [facility] [address] [place], [place] [address] Dr. Wally Zapien WBC 4.2 103/ul Normal 4.0-11.0 [facility] Comment on above: Performed By: #### C BC #### [facility] [address] [place], [place] [address] ABD/PELVIS WO CONon [...] MAYRA CHINA Date: 2022-09-18 13:[address] [facility] ER URINE PROFILEon 3 Bilirubin Ql (U) SMALL Abnormal NEGATIVE [facility] Comment on above: Performed By: #### Olinda WILLIS UMICRO #### [facility] [address] [place] [address] Dr. Wally Zapien Clarity (U) SL CLOUDY Abnormal CLEAR [facility] Comment on above: Performed By: #### Olinda WILLIS UMICRO #### [facility] [address] [place] [address] Dr. Wally Zapien Color (U) RED Abnormal YELLOW [facility] Comment on above: Performed By: #### Olinda WILLIS UMICRO #### [facility] [address] [place] [address] Dr. Wally GERBER A micrscopic examination will be performed if indicated. Normal [facility] Comment on above: Performed By: #### Olinda WILLIS UMICRO #### [facility] [address] [place] [address] Dr. Wally Zapien Glucose Ql (U) Negative Normal NEGATIVE [facility] Comment on above: Performed By: #### Olinda WILLIS UMICRO #### [facility] [address] [address] [address] Wally Zapien Hemoglobin Ql (U) LARGE Abnormal NEGATIVE [facility] Comment on above: Performed By: #### E RUJanell UMICRO #### [facility] [address] [place] [address] Dr. Wally Zapien Ketones Ql (U) TRACE Abnormal NEGATIVE [facility] Comment on above: Performed By: #### KERRI PADRON #### [facility] [address] [place] [address] Dr. Wally Zapien LEUKOCYTES TRACE Abnormal NEGATIVE [facility] Comment on above: Performed By: #### BIMAL PADRONRO #### [facility] [address] [place] [address] Dr. Wally Zapien Nitrite Ql (U) Positive Abnormal NEGATIVE [facility] Comment on above: Performed By: #### KERRI PADRON #### [facility] [address] [place] [address] Dr. Wally Zapien pH (U) 5.5 [pH] Normal 5-9 [facility] Comment on above: Performed By: #### KERRI PADRON #### [facility] [address] [place] [address] Dr. Wally Zapien Protein (U) [Mass/Vol] 100 mg/dL Abnormal NEGATIVE/ TRACE [facility] Comment on above: Performed By: #### KERRI PADRON #### [facility] [address] [place] [address] Dr. Wally Zapien SPEC GRAVITY 1.025 Normal 1.005-<=1.025 [facility] Comment on above: Performed By: #### KERRI PADRON #### [facility] [address] [place] [address] Dr. Wally Zapien UR MICRO IND INDICATED Normal [facility] Comment on above: Performed By: #### KERRI PADRON #### [facility] [address] [place] [address] Dr. Wally Zapien Urobilinogen Qn (U) 1.0 {Suma'U}/dL Normal 0.2 - 1. [address] [facility] Comment on above: Performed By: #### KERRI PADRON #### [facility] [address] [place] [address] Dr. Wally Zapien PROF CHEM 8 (BAS METB)on Anion gap [Moles/Vol] 10.5 mmol/L Normal [facility] Comment on above: Performed By: #### U RCX #### [facility] [address] [address] [address] Wally Zapien Calcium [Mass/Vol] 8.6 mg/dL Normal 8.5-10.1 [facility] Comment on above: Performed By: #### U RCX #### [facility] [address] [address] [address] Wally Zapien Chloride [Moles/Vol] 105 mmol/L Normal 98-107 [facility] Comment on above: Performed By: #### U RCX #### [facility] [address] [place] [address] Dr. Wally Zapien CO2 [Moles/Vol] 28.8 mmol/L Normal 21.0-32.0 [facility] Comment on above: Performed By: #### U RCX #### [facility] [address] [place] [address] Dr. Wally Zapien Creatinine [Mass/Vol] 0.85 mg/dL Normal 0.70-1.30 [facility] Comment on above: Performed By: #### U RCX #### [facility] [address] [address] [address] Wally Zapien EGFR-AF ARGENTINE >60 Normal >=60 [facility] Comment on above: Performed By: #### U RCX #### [facility] [address] [place] [address] Dr. Wally Zapien EGFR-NON AF ARGENTINE >60 Normal >=60 [facility] Comment on above: Performed By: #### U RCX #### [facility] [address] [place] [address] Dr. Wally Zapien Glucose [Mass/Vol] 112 mg/dL Critically high 74-106 [facility] Comment on above: Performed By: #### U RCX #### [facility] [address] [place] [address] Dr. Wally Zapien Potassium [Moles/Vol] 4.3 mmol/L Normal 3.5-5.1 [facility] Comment on above: Performed By: #### U RCX #### [facility] [address] [address] [address] Wally Zapien Sodium [Moles/Vol] 140 mmol/L Normal 136-145 [facility] Comment on above: Performed By: #### U RCX #### [facility] [address] [address] [address] Wally Zapien Urea nitrogen [Mass/Vol] 23.0 mg/dL Critically high 7.0-18.0 [facility] Comment on above: Performed By: #### U RCX #### [facility] [address] [address] [address] Wally Zapien Urea nitrogen/Creatinine [Mass ratio] 27.1 mg/mg Normal [facility] Comment on above: Performed By: #### U RCX #### [facility] [address] [place] [address] Dr. Wally Zapien URINE MICROSCOPIC ONLYon BACTERIA TRACE Abnormal NONE SEEN [facility] Comment on above: Performed By: #### Olinda WILLIS UMICRO #### [facility] [address] [place] [address] Dr. Wally Zapien Bacteria identified Cx Nom (U) NOT INDICATED Normal [facility] Comment on above: Performed By: #### Olinda WILLIS UMICRO #### [facility] [address] [place] [address] Dr. Wally Zapien CAST NONE SEEN Normal NONE SEEN [facility] Comment on above: Performed By: #### Olinda WILLIS UMICRO #### [facility] [address] [place] [address] Dr. Wally Zapien Crystals LM Nom (Urine sed) NONE SEEN Normal NONE SEEN [facility] Comment on above: Performed By: #### E LAZARO UMICRO #### [facility] [address] [place] [address] Dr. Wally Zapien Epithelial cells LM Ql (Urine sed) RARE Normal NONE SEEN /RARE [facility] Comment on above: Performed By: #### E LAZARO UMICRO #### [facility] [address] [place] [address] Dr. Wally Zapien MUCOUS NONE SEEN Normal NONE SEEN [facility] Comment on above: Performed By: #### E RUR, UMICRO #### [facility] [address] [address] [address] Wally Zapien RBC (U) [#/Vol] /uL Abnormal 0-2 [facility] Comment on above: Performed By: #### E RUR, UMICRO #### [facility] [address] [address] [address] Wally Zapien WBC 2-5 Abnormal NONE SEEN [facility] Comment on above: Performed By: #### E RUR, UMICRO #### [facility] [address] [address] [address] Wally Zapien Vital Signs Date Time Vital Sign Value Performing Clinician Facility 03-17-2024 14:58-0400 Blood Pressure Location Lazara Orzech [facility] 03-17-2024 14:58-0400 Diastolic blood pressure 77 mm[Hg] Lazara Orzech [facility] 03-17-2024 14:58-0400 Heart rate 80 /min Lazara Orzech [facility] 03-17-2024 14:58-0400 Respiratory rate 16 /min Lazara Orzech [facility] 03-17-2024 14:58-0400 Systolic blood pressure 132 mm[Hg] Lazara Orzech [facility] 02-11-2024 09:59-0400 Blood Pressure Location Lazara Orzech [facility] 02-11-2024 09:59-0400 Diastolic blood pressure 84 mm[Hg] Lazara Orzech [facility] 02-11-2024 09:59-0400 Heart rate 71 /min Lazara [employer] [facility] 02-11-2024 09:59-0400 Systolic blood pressure 138 mm[Hg] Lazara Orzech [facility] 07-17-2023 15:40-0500 Body height 160.02 cm Rocio Chan Other [facility] 07-17-2023 15:40-0500 Body mass index (BMI) [Ratio] 37.55 kg/m2 Rocio Chan Other [facility] 07-17-2023 15:40-0500 Body temperature 98.2 [degF] Rocio Chan Other [facility] Other 07-17-2023 15:40-0500 Body weight 96.16 kg Rocio Rocio Other [facility] Other 07-17-2023 15:40-0500 Diastolic blood pressure 76 mm[Hg] Rocio Chan Other [facility] 07-17-2023 15:40-0500 Respiratory rate 18 /min Rocio Rocio Other [facility] Other 07-17-2023 15:40-0500 SaO2% (BldA) [Mass fraction] 96 % Rocio Chan Other [facility] 07-17-2023 15:40-0500 Systolic blood pressure 134 mm[Hg] Rocio Chan Other [facility] Other 09-26-2022 13:26-0500 Blood Pressure Location [place] VALENTIN [facility] 09-26-2022 13:26-0500 Diastolic blood pressure 74 mm[Hg] [place] VALENTIN [facility] 09-26-2022 13:26-0500 Heart rate 52 /min [place] VALENTIN [facility] 09-26-2022 13:26-0500 Systolic blood pressure 173 mm[Hg] [place] VALENT[facility] 04-16-2022 13:49-0400 Diastolic blood pressure 87 mm[Hg] [place] VALENTIN [facility] 04-16-2022 13:49-0400 Mean blood pressure 110 mm[Hg] [place] VALENTIN [facility] 04-16-2022 13:49-0400 Systolic blood pressure 156 mm[Hg] [place] VALENT[place] [facility] 04-16-2022 13:37-0400 Blood Pressure Location [place] VALENT[place] [facility] 04-16-2022 13:37-0400 Diastolic blood pressure 102 mm[Hg] [place] VALENT[facility] 04-16-2022 13:37-0400 Heart rate 81 /min [place] VAL[facility] 04-16-2022 13:37-0400 Respiratory rate 16 /min [place] VALENT[facility] 04-16-2022 13:37-0400 Systolic blood pressure 191 mm[Hg] [place] VALENTIN [facility] Encounters Encounter Date Encounter Type Care Provider Facility Start: 04-21-2024 End: 04-21-2024 ambulatory [facility] Start: 04-17-2024 End: 04-21-2024 ambulatory [facility] Start: 04-17-2024 End: 04-21-2024 ambulatory [facility] Start: 04-17-2024 End: 04-20-2024 Evaluation and management of inpatient [facility] Start: 04-17-2024 End: 04-21-2024 Emergency department patient visit [facility] Start: 04-17-2024 End: 04-21-2024 ambulatory [facility] Start: 04-14-2024 ambulatory Lazara Lino Facilit y:[facility] Start: 04-07-2024 End: 04-07-2024 ambulatory [place] VALENTIN Facility:[id number] Start: 03-18-2024 End: 03-18-2024 ambulatory Emily Maria Facility:[facility] Start: 03-18-2024 End: 03-18-2024 Patient encounter procedure Emily Maria [facility] Start: 03-17-2024 End: 03-17-2024 ambulatory Lazara Lino Facility:[facility] Start: 03-17-2024 End: 03-17-2024 Patient encounter procedure Lazara X Orzech [facility] Start: 02-11-2024 End: 02-11-2024 Lab Drop off Lazara X Orzech [facility] Start: 02-11-2024 End: 02-11-2024 ambulatory Lazara X Orzech Facility[facility] Start: 02-11-2024 End: 02-11-2024 Patient encounter procedure Lazara X Orzech [facility] Start: 11-18-2023 End: 11-19-2023 ambulatory Fabrice Dias MD Facility: [facility] Start: 10-28-2023 End: 10-29-2023 ambulatory Fabrice Dias MD Facility: [facility] Start: 09-30-2023 End: 10-01-2023 ambulatory [facility] Start: 2023 End: 09-24-2023 ambulatory [facility] MD [facility] Start: 07-17-2023 End: 07-17-2023 ambulatory Rocio Chan Other [facility] Other Start: 07-17-2023 Office outpatient visit 15 minutes Rocio Chan [facility] Start: 05-27-2023 End: 05-28-2023 ambulatory Fabrice Dias MD Facility:[facility] Start: 01-23-[address] ELIANA BA . Facili ty:[facility] Start: 09-26-2022 End: 09-26-2022 Patient encounter procedure [place] [facility] [facility] Start: 09-24-2022 End: 09-25-[address] ELIANA BA . Facility:[facility] Start: 09-18-2022 End: 09-18-2022 ambulatory KARLOS MELTON . Facility:[facility] Start: 04-16-2022 End: 04-16-2022 Patient encounter procedure [place] Maciel JAYDON [facility] Procedures Date Procedure Procedure Detail Performing Clinician Start: 09-24-2022 PSA screening KARLOS ALVAREZ . Comment on above: Performed By: #### U RCX #### [facility] [address] [place] [address] Dr. Wally Zapien Start: 03-17-2019 Cystoscope, device [...] unspecified formulation [place] VALENTIN [facility] 04-20-2022 SARS-CoV-2 mRNA (vufoobhubbs-xntn-hzrbew e) vaccine [employer] [facility] 06-19-2021 SARS-CoV-2 (COVID-19 ) mRNA BNT-162b2 vax [employer] [facility] 06-01-2021 influenza virus vacc ine, unspecified formulation [employer] [facility] 05-23-2021 influenza virus vacc ine, unspecified formulation [employer] [facility] 11-10-2020 SARS-CoV-2 (COVID-19 ) mRNA BNT-162b2 vax [employer] [facility] 10-20-2020 SARS-CoV-2 (COVID-19 ) mRNA BNT-162b2 vax [employer] [facility] 08-04-2020 zoster vaccine recombinant [employer] [facility] 07-06-2020 SARS-CoV-2 (COVID-19 ) Ad26 vaccine, recombinant [employer] [facility] 06-24-2020 influenza virus vacc ine, unspecified formulation [employer] [facility] 06-03-2020 zoster vaccine recombinant [employer] [facility] 06-02-2020 SARS-CoV-2 (COVID-19 ) Ad26 vaccine, recombinant [employer] [facility] 05-26-2020 influenza virus vacc ine, unspecified formulation [place] [facility] [facility]2019 influenza virus vacc ine, unspecified formulation [place] VALENTIN [facility] 06-17-2018 influenza virus vacc ine, unspecified formulation [place] VALENT[place] [facility] 05-14-2017 influenza virus vacc ine, unspecified formulation [place] VALENTIN [facility] 05-14-2017 pneumococcal polysaccharide vaccine, 23 valent [place] VALENTIN [facility] 05-17-2016 influenza virus vacc ine, unspecified formulation [place] VALENTIN [facility] 05-17-2016 pneumococcal conjuga te vaccine, 13 valent [place] Re[facility]enant [facility] 05-16-2015 influenza virus vacc ine, unspecified formulation [place] VALENTIN [facility] Payers Date Payer Category Payer Private Health Insurance 1957 Medicare [id number] 1940 Unknown [id number] 2.16.84 0.1.482297.3.579.2.593 1940 Unknown [id number] 2.16.84 0.1.440787.3.579.2.593 1940 Unknown [id number] 2.16.84 0.1.115489.3.579.2.593 1940 Unknown [id number] 2.16. 840.1.836943.3.579.2.196 1940 Unknown [id number] 2.16. 840.1.823599.3.579.2.196 1940 Unknown [id number] 2.16. 840.1.404581.3.579.2.196 1940 Unknown [id number] 2.16. 840.1.276611.3.579.2.196 1942 Unknown [id number] 2.16. 840.1.529967.3.579.2.196 1942 Unknown [id number] 2.16.8 40.1.731150.3.579.2.727 1942 Unknown [id number] 2.16.8 40.1.321420.3.579.2.727 1942 Unknown [id number] 2.16.8 40.1.754012.3.579.2.727 1942 Unknown [id number] 2.16.8 40.1.195163.3.579.2.727 1942 Unknown [id number] 2.16.8 40.1.798601.3.579.2.727 1942 Unknown [id number] 2.16.8 40.1.745860.3.579.2.727 1942 Unknown [id number] 2.16.8 40.1.924117.3.579.2.727 1942 Unknown [id number] 2.16.8 40.1.072121.3.579.2.1286 1942 Unknown [id number] 2.16.8 40.1.373968.3.579.2.1286 1942 Unknown [id number] 2.16.8 40.1.980689.3.579.2.1286 1942 Unknown [id number] 2.16.8 40.1.172205.3.579.2.1286 1942 Unknown [id number] 2.16.8 40.1.730929.3.579.2.1286 1942 Unknown [id number] 2.16.8 40.1.306416.3.579.2.1286 1942 Unknown [id number] 2.16.8 40.1.863854.3.579.2.1286 1942 Unknown [id number] 2.16.8 40.1.465164.3.579.2.1286 1940 Unknown [id number] 2.16.8 40.1.266294.3.579.2.1286 Social History Date Type Detail Facility Start: 04-16-2022 End: 03-17-2024 Tobacco smoking status Never smoked tobacco (finding) [facility] Tobacco smoking status Never [facility] Sex Assigned At Male [facility] Functional Status Date Assessment Result Facility 03-17-2024 Functional Status N/A [facility] 02-11-2024 Functional Status N/A [facility] 09-26-2022 Functional Status N/A [facility] 04-16-2022 Functional Status N/A [facility] Clinical Notes 10-06-2020 to 04-17-2024 Note Date [...] Elias Garner DO on 04/17/2024 8:52 AM [facility] 03-17-2024 Hospital Discharge instructions Patient Education 03/17/2024 [...] Follow these instructions at home: Medicines Take mklf-hmu-jsqckqi and prescription medicines only as told by [...] provider. Document Revised: 05/03/2021 Document Reviewed: 05/03/2021 [employer] Patient Education 2022 [employer]. Follow Up Care 03/13/2024 14:20:02 With:KIM Lino APRN, PARVIN Kirk, URL Address: When: Unknown [facility] [place] 03-17-2024 Note Patient Education [...] these instructions at home: Medicines ? Take rhjm-mjj-qxcnxje and prescription medicines only as told by [...] provider. Document Revised: 05/03/2021 Document Reviewed: 05/03/2021 [employer] Patient Education ? 2022 [employer]. [facility] 02-11-2024 Evaluation + Plan note Diagnostic Tests PendingUrine Culture 02/11/24 [facility] 02-11-2024 Hospital Discharge instructions Patient Education [...] Follow these instructions at home: Medicines Take hnmn-kgu-crmfkdz and prescription medicines only as told by [...] or the blood stops without treatment. Take wwrt-kzq-qljxidk and prescription medicines only as told by your health care provider. Drink enough fluid to keep your urine pale yellow. This information is not intended to replace advice given to you by your health care provider. Make sure you discuss any questions you have with your health care provider. Document Revised: 04/12/2021 Document Reviewed: 04/12/2021 [employer] Patient Education 2022 [employer]. 02/11/2024 10:34:29 Benign Prostatic Hyperplasia Benign Prostatic [...] urethra. Follow these instructions at home: Take lbst-thq-xxrvvlq and prescription medicines only as told by [...] provider. Document Revised: 02/28/2022 Document Reviewed: 02/28/2022 [employer] Patient Education 2022 [employer]. Follow Up Care 04/16/2022 14:54:37 With:KMI Lino APRN, PARVIN Kirk, URL Address: When: Unknown Comments:1 year With:JAYDON COE, [place] Maciel, URL Address: [facility] [address] , [place] [address]- [phone] When: Unknown [facility] 02-11-2024 Note - From: Julia Charlton To: [facility] - Administrative; Sent: 02/11/2024 10:28:36 EDT Show up: 08/26/2024 10:28:00 EST Subject: schedule 1 yr f/u Due Date/Time: 02/02/2025 10:28:00 EDT Reminder/Recall Patient needs scheduled for a 1 yr f/u, no labs [facility] 07-17-2023 Evaluation note Encounter Date Diagnosis Assessment [...] no improvement in 2 to 3 days [facility] Other 02-01-2023 Hospital Discharge instructions Patient Education [...] or mouth. Supplies needed: Soap. Alcohol-based hand rechecker. Standard cleaning products. Disinfectants, such as bleach. [...] water are not available, use alcohol-based hand rechecker. Avoid touching your face, mouth, nose, or [...] water. Air-dry your dishes or use a sack cleaning hand. Do not share dishes or eating utensils. [...] certain germs and not others. Read the dispatcher tow truck's instructions or read online resources to determine [...] minutes after each use, or according to dispatcher tow truck's instructions. Wash reusable cleaning cloths and sanitize [...] water are not available, use alcohol-based hand rechecker. In general: Stay home except to get [...] for Professionals in Infection Control and Epidemiology: professionals.site.apic.org/jeohhzyx-cg-ebro/[email or web address]-tyfdjjkuqm-tjwbims/home/ Summary It is important to know how [...] 05/21/2009 Document Revised: 12/08/2019 Document Reviewed: 11/06/2019 [employer] Patient Education 2019 [employer]. Follow Up Care 09/20/2022 14:58:28 With:JAYDON COE, [place] Maciel, URL Address: [facility] [address] , [place] [address]- When:3 months Comments:UTI F/U [facility] 08-22-2022 Hospital Discharge instructions Patient Education 04/16/2022 [...] urethra. Follow these instructions at home: Take gwjx-tqw-iraamdr and prescription medicines only as told by [...] 08/12/2006 Document Revised: 07/07/2019 Document Reviewed: 09/16/2017 [employer] Patient Education 2020 [employer]. 04/16/2022 14:44:17 Calorie Counting for Weight Loss [...] 08/12/2006 Document Revised: 05/01/2019 Document Reviewed: 07/12/2017 [employer] Patient Education [employer] Follow Up Care 10/16/2021 15:00:57 With:JAYDON COE, [place] Maciel, URL Address: [address] [place] [phone]- Business (1) When:Within 1 Year(s) [facility] 02-11-2021 NotePatient Outreach (COVAMN) KYLER RICHARD ([id number]) 1940 M Date Time Provider Department 10/06/20 JOLYNN RUSSO During your visit today, we recorded the following information about you: Allergies As of Date: 10/06/2020 (No Known Allergies) Date Reviewed: 11/27/2018 Reviewed by: Huyen Barraza - Fully Assessed Order(s):SARS-COVID VACCINE 1ST DOSE APPT [05480IDG] Order #: [id number] FUTURE Prescriptions as of 10/06/2020 Sig: RHOPRESSA [...] arteriosclerosis [I25.10] Letter Text Encounter Status:Closed by Philly Runway Thief, Ani[employer]USER on 10/10/20[facility] Evaluation + Plan note Future Appointments Appointment Date:04/19/2023 09:30:00 AM Scheduled Provider:[place] VALENTIN MD Location:[facility] Appointment Type:URO Office Visit [facility] evaluation + Plan note Future Appointments Appointment Date:01/16/2023 09:45:00 AM Scheduled Provider:Reno VALENTIN MD Location:[facility] Appointment Type:URO Office Visit Appointment Date:04/19/2023 09:30:00 AM Scheduled Provider:[place]eno VALENTIN MD Location:[facility] Appointment Type:URO Office Visit [facility] Evaluation + Plan note Future Appointments Appointment Date:04/14/2024 11:30:00 AM Scheduled Provider:KIM Lino APRN, [place] X Location:[facility] Appointment Type:URO Office Visit [facility] History general Narrative - Reported* Type Description Date Medical History heart disease Medical History colon cancer Medical History glaucoma Surgical History open heart surgery Surgical History colon surgery Surgical History 3 hernia repairs Surgical History torn retina Surgical History cataracts Surgical History left total hip 2017 Surgical History Eye lid lift both 2020 Hospitalization History see above Hospitalization History back spasms 2022 [facility] Other Hospital course Narrative No data available for this section [facility] Hospital Discharge instructions No data available for this section [facility] No data available for this section [facility] Summary Purpose Family History No Family History [...] section and content) DATE CREATED AUTHOR 09/19/2021 [facility] DATE CREATED AUTHOR AUTHOR'S ORGANIZ ATION 02/01/2023 [facility] DATE CREATED AUTHOR AUTHOR'S ORGANIZ ATION 12/31/2023 [facility] DATE CREATED AUTHOR AUTHOR'S ORGANIZ ATION 02/13/2024 [facility] DATE CREATED AUTHOR AUTHOR'S ORGANIZ ATION 02/14/2024 [facility] DATE CREATED AUTHOR AUTHOR'S ORGANIZ ATION 04/17/2024 [facility] DATE CREATED AUTHOR AUTHOR'S ORGANIZ ATION 04/22/2024 [facility] DATE CREATED AUTHOR AUTHOR'S ORGANIZ ATION 04/23/2024 [facility] Care Team (unrecognized sect ion and content) Personnel Name: Eliana Ba MD Address: [address] [place], [place] [id number] Personnel Name: Eliana Ba MD Address: Address: [address] [place] [address], [place] [address] Personnel Name: Eliana Ba MD Address: Address: [address] [place] [address] Personnel Name: Eliana Ba MD Address: Address: [address] [place], [place] [id number] Personnel Name: Eliana Ba MD Address: Address: [address] [place] [address], [address] Personnel Name: Eliana Ba MD Address: Address: [address] [place] [address] REASON FOR VISIT (unrecogniz ed section and [...] BE BASED ON THE PRIMARY CLINICAL RECORDS. [facility]. provides no warranty or guarantee of the accuracy or completeness of information in this document.
[2024-05-22 14:57] VITALS: BP 155/84; PULSE 68; TEMP 36.4; O2SAT 98; BMI 34.7
--- NOTE | 2024-05-22 15:10 | XR_ITS ---
[address] [address] Patient Name: KYLER RICHARD MRN: [id number] date: 1940 Sex: M Assigned Patient Location: ER Current Patient Location: ER Accession/Order Number: [id number] Exam Date: 05/22/2024 15:20 Report Date: 05/22/2024 15:47 At the request of: RASHID MORENO Procedure: XR knee RT 3V PROCEDURE: XR knee RT 3V HISTORY: Atraumatic pain COMPARISON: XR knee right 01/23/2023 FINDINGS: BONES:Marked narrowing of the medial joint space with wcci-vv-mzvm articulation. Moderate narrowing of the anterior joint space. Large degenerative osteophytes along the articular margins of all 3 compartments. No fracture or dislocation. SOFT TISSUES:No visible soft tissue swelling. EFFUSION:Small joint effusion. OTHER: Negative. XR/XR knee RT 3V IMPRESSION: 1. Marked degenerative joint disease; stable to slightly progressed. Electronically authenticated by: ROMEO JOSEPH Date: 05/22/2024 15:47
--- NOTE | 2024-05-22 15:11 | ED_ITS ---
HPI - Extremity Problem General Chief complaint: Extremity Problem, Nontraumatic Stated complaint: KNEE PAIN, CATH COMPL Time Seen by Provider: 05/22/24 14:57 Source: patient Mode of arrival: Wheelchair History of Present Illness HPI Narrative: 83-year-old male presents for right knee pain. He states it has been bothering him for 3 or 4 years and from time to time his doctor gives him an injection in it. He just got out of rehab because he had a minor stroke and it has been bothering him. He states sometimes it feels like it is going to give out. No other joint seems to be hurting him today. There was no injury. Related Data Home Medications ?Medication ?Instructions ?Recorded ?Confirmed aspirin 81 mg tablet,delayed 81 mg PO DAILY 05/20/23 04/07/24 release atorvastatin 40 mg tablet 40 mg PO DAILY 05/20/23 04/07/24 dorzolamide 22.3 mg-timolol 6.8 1 drp ophthalmic (eye) BID 05/20/23 04/07/24 mg/mL eye drops icosapent ethyl 1 gram capsule 2 g PO BID 05/20/23 04/07/24 latanoprost 0.005 % eye drops 1 drp ophthalmic (eye) .QHS 05/20/23 04/07/24 lisinopril 10 mg tablet 10 mg PO DAILY 05/20/23 04/07/24 meloxicam 15 mg tablet 15 mg PO DAILY 05/20/23 04/07/24 netarsudil 0.02 % eye drops 1 drp ophthalmic (eye) DAILY 05/20/23 04/07/24 (Rhopressa) tamsulosin 0.4 mg capsule 0.4 mg PO BID 05/20/23 04/07/24 brimonidine 0.2 % eye drops drp ophthalmic (eye) 03/02/24 cetirizine 10 mg tablet 10 mg PO DAILY 03/02/24 04/07/24 fluticasone propionate 50 1 spray intranasal DAILY 03/02/24 04/07/24 mcg/actuation nasal spray,suspension hyoscyamine sulfate 0.125 mg 0.125 mg sublingual Q6H 03/02/24 04/07/24 sublingual tablet Previous Rx's ?Medication ?Instructions ?Recorded lidocaine 5 % topical patch 1 patch topical DAILY #30 ea 12/18/23 cephalexin 500 mg capsule 500 mg PO TID 7 days #21 caps 05/10/24 etodolac 300 mg capsule 300 mg PO Q8H PRN pain #20 caps 05/22/24 Allergies Allergy/AdvReac Type Severity Reaction Status Date / Time levofloxacin [From Levaquin] AdvReac UPSET Verified 05/10/24 20:05 STOMACH Review of Systems ROS Narrative A ten point review of systems is negative except as noted above. [facility] PFS Medical History (Updated 05/22/24 @ 15:56 by Rony Fitzgerald MD) [place] (hard of hearing) ?H91.90 - Unspecified hearing loss, unspecified ear (ICD-10) Lumbar stenosis with neurogenic claudication ?M48.062 - Spinal stenosis, lumbar region with neurogenic claudication (ICD- 10) Lumbar spondylosis ?M47.816 - Spondylosis without myelopathy or radiculopathy, lumbar region (ICD-10) Myofascial pain ?M79.18 - Myalgia, other site (ICD-10) Acute UTI ?N39.0 - Urinary tract infection, site not specified (ICD-10) Acute urinary retention ?R33.8 - Other retention of urine (ICD-10) Acute urinary retention ?R33.8 - Other retention of urine (ICD-10) BPH (benign prostatic hyperplasia) ?N40.0 - Benign prostatic hyperplasia without lower urinary tract symptoms (ICD-10) Urethral stricture ?N35.919 - Unspecified urethral stricture, male, unspecified site (ICD-10) Gross hematuria ?R31.0 - Gross hematuria (ICD-10) Sleep apnea ?G47.30 - Sleep apnea, unspecified (ICD-10) High cholesterol ?E78.00 - Pure hypercholesterolemia, unspecified (ICD-10) Heart disease ?I51.9 - Heart disease, unspecified (ICD-10) Hypertension ?I10 - Essential (primary) hypertension (ICD-10) Glaucoma ?H40.9 - Unspecified glaucoma (ICD-10) Colon cancer ?C18.9 - Malignant neoplasm of colon, unspecified (ICD-10) Inability to walk ?R26.2 - Difficulty in walking, not elsewhere classified (ICD-10) Chronic back pain ?M54.9 - Dorsalgia, unspecified (ICD-10) ?G89.29 - Other chronic pain (ICD-10) Surgical History (Updated 04/07/24 @ 09:07 by Sandra Hill) History of cataract extraction ?Z98.49 - Cataract extraction status, unspecified eye (ICD-10) S/P tonsillectomy and adenoidectomy ?Z90.89 - Acquired absence of other organs (ICD-10) History of hydrocelectomy ?Z98.890 - Other specified postprocedural states (ICD-10) Detached retina, left ?H33.22 - Serous retinal detachment, left eye (ICD-10) History of colectomy ?Z90.49 - Acquired absence of other specified parts of digestive tract (ICD- 10) 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 Smoking status: Never smoker Non-prescribed substance use: denies use Previous occupational history: retired Highest level of school completed/degree received: Bachelor's degree Are you now , , , , never or living with a partner: Little interest or pleasure in doing things: not at all Feeling down, depressed, or hopeless: not at all Feel stressed/tense/nervous/anxious/difficulty sleeping: not at all Do you think of yourself as: straight/heterosexual Gender Identity: male Exam Narrative Exam Narrative: Nurses note and vital signs reviewed and patient is not hypoxic. General: The patient appears in no apparent distress. Skin: Warm, dry, no pallor noted. Head: Normocephalic, atraumatic Eye: Normal conjunctiva, no drainage Ears, Nose, Mouth, and Throat: oral mucosa is moist. Nares patent. Cardiovascular: Not tachycardic Respiratory: Patient is in no distress, no accessory muscle use Back: non-tender GI: Soft and nontender Musculoskeletal: The right knee is not erythematous or warm to touch. No bruising or rash. No ballotable effusion at the knee joint is stable. There does not seem to be any focal area of tenderness to palpation. Neurological: Awake and alert Psychiatric: Cooperative Constitutional Vital Signs, click to edit/add: Last Vital Signs Temp 97.6 F 05/22/24 14:57 Pulse 68 05/22/24 14:57 Resp 20 05/22/24 14:57 BP 155/84 H 05/22/24 14:57 Pulse Ox 98 05/22/24 14:57 O2 Del Method Room Air 05/22/24 14:57 Course Vital Signs Vital signs: Vital Signs Temperature 97.6 F 05/22/24 14:57 Pulse Rate 68 05/22/24 14:57 Respiratory Rate 20 05/22/24 14:57 Blood Pressure 155/84 H 05/22/24 14:57 Pulse Oximetry 98 05/22/24 14:57 Oxygen Delivery Method Room Air 05/22/24 14:57 Temperature 97.6 F 05/22/24 14:57 Pulse Rate 68 05/22/24 14:57 Respiratory Rate 05/22/24 14:57 Blood Pressure 155/84 H 05/22/24 14:57 Pulse Oximetry 98 05/22/24 14:57 Oxygen Delivery Method Room Air 05/22/24 14:57 MDM - Extremity (Nontraumatic) MDM Narrative Medical decision making narrative: X-rays consistent with arthritis. Appointment made for the patient to see Dr. Ravi on May 25 at 10:45 AM. He is prescribed Lodine. Treatment diagnosis and follow-up were discussed with the patient and his . Differential Diagnosis Differential diagnosis: Likely other (Arthritis, effusion, fracture) Imaging Data Right knee x-ray: Radiologist's impression: ITS Impressions Knee X-Ray 05/22/24 15:10 IMPRESSION: 1. Marked degenerative joint disease; stable to slightly progressed. Electronically authenticated by: TREMAYNE JOSEPH Date: 05/22/2024 15:47 Discharge Plan Discharge Chief Complaint: Extremity Problem, Nontraumatic Clinical Impression: Arthritis of right knee Patient Disposition: Home, Self-Care Time of Disposition Decision: 15:56 Condition: Good Mode of Transportation: Private Vehicle Prescriptions / Home Meds: New etodolac 300 mg capsule 300 mg PO Q8H PRN (Reason: pain) Qty: 20 0RF No Action atorvastatin 40 mg tablet 40 mg PO DAILY dorzolamide-timolol 22.3-6.8 mg/mL drops 1 drp OPHTHALMIC (EYE) BID Rx Instructions: BOTH EYES icosapent ethyl 1 gram capsule 2 g PO BID latanoprost 0.005 % drops 1 drp OPHTHALMIC (EYE) .QHS Rx Instructions: RIGHT EYE lisinopril 10 mg tablet 10 mg PO DAILY meloxicam 15 mg tablet 15 mg PO DAILY Rhopressa 0.02 % drops 1 drp OPHTHALMIC (EYE) DAILY Rx Instructions: RIGHT EYE tamsulosin 0.4 mg capsule 0.4 mg PO BID aspirin 81 mg tablet,delayed release (DR/EC) 81 mg PO DAILY lidocaine 5 % adhesive patch,medicated 1 patch topical DAILY Qty: 30 2RF Rx Instructions: leave on most painful area for up to 12 hrs each day cetirizine 10 mg tablet 10 mg PO DAILY hyoscyamine sulfate 0.125 mg tablet, sublingual 0.125 mg sublingual Q6H brimonidine 0.2 % drops OPHTHALMIC (EYE) fluticasone propionate 50 mcg/actuation spray,suspension 1 spray INTRANASAL DAILY cephalexin 500 mg capsule 500 mg PO TID 7 Days Qty: 21 0RF Print Language: Andorran Instructions: Osteoarthritis (ED) Referrals: Bayron Ba MD [Primary Care Provider] - 1 week Tremayne Ravi MD [Physician] - 05/25/24 10:45 am
--- NOTE | 2024-05-22 16:00 | PC.NURSE ---
pt arrives wearing a knee brace, with past stroke pt has a hard time with right side.
[2024-05-22 16:15] VITALS: BP 148/82; PULSE 70; O2SAT 99
== END 2024-05-22 16:16 | disposition home or self-care (01) ==
PROVIDERS: Emergency Provider Emergency Medicine; PCP Family Medicine
DX: M17.11 Unilateral primary osteoarthritis, right knee (principal); Z86.73 Personal history of transient ischemic attack (TIA), and cerebral infarction without residual deficits
CPT/HCPCS: 73562; 99283

== ENCOUNTER 2024-06-03 08:32 | Emergency (ER) | payer MEDICARE, SELFPAY ==
[2024-06-03 08:36] VITALS: BP 182/81; PULSE 71; TEMP 36.7; O2SAT 98; BMI 34.8
--- NOTE | 2024-06-03 08:45 | CT_ITS ---
[address] [address] Patient Name: KYLER RICHARD MRN: [id number] date: 1940 Sex: M Assigned Patient Location: ER Current Patient Location: Accession/Order Number: [id number] Exam Date: 06/03/2024 09:40 Report Date: 06/03/2024 10:11 At the request of: CHRIS YBARRA Procedure: CT abdomen pelvis w con EXAMINATION: CT abdomen pelvis w con HISTORY: constipation r/o obstruction hx rectal ca COMPARISON: CT abdomen pelvis 05/20/2023 TECHNIQUE: Axial, Coronal, and Sagittal images were obtained without and/or with IV contrast as indicated by examination type. Dose reduction techniques were achieved by using automated exposure control and/or adjustment of mA and/or kV according to patient size and/or use of iterative reconstruction technique. FINDINGS: LUNG BASES: No visible pulmonary or pleural disease. LIVER: No enlargement, atrophy, suspicious density, or significant focal lesion. BILIARY: Several 5 mm stones within noninflamed gallbladder. PANCREAS: No lesion, fluid collection, or abnormal duct dilatation. SPLEEN: No enlargement or focal lesion. ADRENALS: No mass or enlargement. KIDNEYS: No mass, obstruction, or calcification. BOWEL/MESENTERY: Prior rectal resection and anastomosis. No visible mass, obstruction, or bowel wall thickening. AORTA/VASCULAR: Marked narrowing of a short segment of the infrarenal aorta, 1.3 x 0.8 cm in diameter, secondary to noncalcified plaque. No aneurysm. RETROPERITONEUM: No mass or adenopathy. LYMPH NODES: No adenopathy. URINARY BLADDER: Mild wall thickening of the partially distended urinary bladder; likely muscular hypertrophy. More catheter within the bladder. PELVIC ORGANS: No visible mass. Pelvic organs appropriate for patient age. ABDOMINAL WALL: No mass or hernia. BONES: Left hip replacement. Moderate degenerative changes of the right hip joint. Multilevel degenerative disc disease of lumbar spine. OTHER: Negative. CT/CT abdomen pelvis w con IMPRESSION: 1. No bowel obstruction or significant stool burden. Prior rectal resection and anastomosis without appreciable abnormality. 2. No mass or lymphadenopathy to suggest recurrent or metastatic disease. 3. Cholelithiasis. 4. Narrowing of the infrarenal aorta secondary to noncalcified plaque. 5. Wall thickening of urinary bladder favoring muscular hypertrophy. Electronically authenticated by: ROMEO JOSEPH Date: 06/03/2024 10:11
--- NOTE | 2024-06-03 08:47 | ED_ITS ---
HPI - Abdominal Pain General Chief Complaint: Abdominal Pain Stated Complaint: ABDOMINAL PAIN Time Seen by Provider: 06/03/24 08:36 Source: patient Mode of arrival: ambulance Limitations: no limitations History of Present Illness HPI narrative: Patient presents to ED complaining of constipation. He states he has a history of rectal cancer but this was about 23 years ago. Patient states he has been cancer free for a long time. Due to his history of rectal cancer he does have issues with his bowels. He said he usually has loose stools and he does wear a diaper daily and usually has stool in his diaper. He noticed for the past 2 to 4 days that his diaper has been pretty clean and he has been feeling a lot of rectal pressure and feeling like he has not had any stool passing very much. He does not have any abdominal pain or vomiting he denies any fevers. He states he just has rectal pressure and feeling like he needs to pass some stool but he has not been able to get any out. He does not know the last time he had a colonoscopy or a scan of his abdomen. He was in a nursing care facility until about a week and a half ago and he has been home for the past week and a half with family and he said he is doing very well at home it is just the decreased stool output and rectal pressure that has him in pain and concerned about what has been going on. Related Data Home Medications ?Medication ?Instructions ?Recorded ?Confirmed aspirin 81 mg tablet,delayed 81 mg PO DAILY 05/20/23 04/07/24 release atorvastatin 40 mg tablet 40 mg PO DAILY 05/20/23 04/07/24 dorzolamide 22.3 mg-timolol 6.8 1 drp ophthalmic (eye) BID 05/20/23 04/07/24 mg/mL eye drops icosapent ethyl 1 gram capsule 2 g PO BID 05/20/23 04/07/24 latanoprost 0.005 % eye drops 1 drp ophthalmic (eye) .QHS 05/20/23 04/07/24 lisinopril 10 mg tablet 10 mg PO DAILY 05/20/23 04/07/24 meloxicam 15 mg tablet 15 mg PO DAILY 05/20/23 04/07/24 netarsudil 0.02 % eye drops 1 drp ophthalmic (eye) DAILY 05/20/23 04/07/24 (Rhopressa) tamsulosin 0.4 mg capsule 0.4 mg PO BID 05/20/23 04/07/24 brimonidine 0.2 % eye drops drp ophthalmic (eye) 03/02/24 cetirizine 10 mg tablet 10 mg PO DAILY 03/02/24 04/07/24 fluticasone propionate 50 1 spray intranasal DAILY 03/02/24 04/07/24 mcg/actuation nasal spray,suspension hyoscyamine sulfate 0.125 mg 0.125 mg sublingual Q6H 03/02/24 04/07/24 sublingual tablet Previous Rx's ?Medication ?Instructions ?Recorded lidocaine 5 % topical patch 1 patch topical DAILY #30 ea 12/18/23 cephalexin 500 mg capsule 500 mg PO TID 7 days #21 caps 05/10/24 etodolac 300 mg capsule 300 mg PO Q8H PRN pain #20 caps 05/22/24 oxybutynin chloride 5 mg tablet 5 mg PO DAILY #10 tabs 06/03/24 Allergies Allergy/AdvReac Type Severity Reaction Status Date / Time levofloxacin [From Levaquin] AdvReac UPSET Verified 06/03/24 08:36 STOMACH Review of Systems ROS Status of ROS 10 or more systems reviewed and unremark able except as noted in history and below [facility] Medical History (Updated 06/03/24 @ 10:39 by Sarah Beth Haynes DO) [place] (hard of hearing) ?H91.90 - Unspecified hearing loss, unspecified ear (ICD-10) Lumbar stenosis with neurogenic claudication ?M48.062 - Spinal stenosis, lumbar region with neurogenic claudication (ICD- 10) Lumbar spondylosis ?M47.816 - Spondylosis without myelopathy or radiculopathy, lumbar region (ICD-10) Myofascial pain ?M79.18 - Myalgia, other site (ICD-10) Acute UTI ?N39.0 - Urinary tract infection, site not specified (ICD-10) Acute urinary retention ?R33.8 - Other retention of urine (ICD-10) Acute urinary retention ?R33.8 - Other retention of urine (ICD-10) BPH (benign prostatic hyperplasia) ?N40.0 - Benign prostatic hyperplasia without lower urinary tract symptoms (ICD-10) Urethral stricture ?N35.919 - Unspecified urethral stricture, male, unspecified site (ICD-10) Gross hematuria ?R31.0 - Gross hematuria (ICD-10) Sleep apnea ?G47.30 - Sleep apnea, unspecified (ICD-10) High cholesterol ?E78.00 - Pure hypercholesterolemia, unspecified (ICD-10) Heart disease ?I51.9 - Heart disease, unspecified (ICD-10) Hypertension ?I10 - Essential (primary) hypertension (ICD-10) Glaucoma ?H40.9 - Unspecified glaucoma (ICD-10) Colon cancer ?C18.9 - Malignant neoplasm of colon, unspecified (ICD-10) Inability to walk ?R26.2 - Difficulty in walking, not elsewhere classified (ICD-10) Chronic back pain ?M54.9 - Dorsalgia, unspecified (ICD-10) ?G89.29 - Other chronic pain (ICD-10) Surgical History (Updated 04/07/24 @ 09:07 by Sandra Hill) History of cataract extraction ?Z98.49 - Cataract extraction status, unspecified eye (ICD-10) S/P tonsillectomy and adenoidectomy ?Z90.89 - Acquired absence of other organs (ICD-10) History of hydrocelectomy ?Z98.890 - Other specified postprocedural states (ICD-10) Detached retina, left ?H33.22 - Serous retinal detachment, left eye (ICD-10) History of colectomy ?Z90.49 - Acquired absence of other specified parts of digestive tract (ICD- 10) 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 Smoking status: Never smoker Non-prescribed substance use: denies use Previous occupational history: retired Highest level of school completed/degree received: Bachelor's degree Are you now , , , , never or living with a partner: Little interest or pleasure in doing things: not at all Feeling down, depressed, or hopeless: not at all Feel stressed/tense/nervous/anxious/difficulty sleeping: not at all Do you think of yourself as: straight/heterosexual Gender Identity: male Exam Narrative Exam Narrative: Time Seen: [] Vital Signs: [Per nurse's notes.] General: [Alert] Skin: [Warm, dry, no rash.] Head: [Normocephalic, atraumatic.] Neck: [Supple, trachea midline.] Eye: [Pupils are equal, round and reactive to light, extraocular movements are intact, normal conjunctiva.] Ears, nose, mouth and throat: oral mucosa moist. Cardiovascular: [Regular rate and rhythm, no murmur.] Respiratory: [Lungs are clear to auscultation, respirations are non-labored, breath sounds are equal.] Chest wall: [No tenderness, no deformity.] Gastrointestinal: [Soft, nontender, non distended, normal bowel sounds. Rectal exam performed and patient is not impacted with stool. He did have some loose stool in the diaper on exam however it was not much. MSK: 5 out of 5 muscle strength x 4 extremities no calf pain or edema Lymphatics: [No lymphadenopathy.] Psychiatric: [Cooperative, appropriate mood & affect.] Neurological: [Alert and oriented to person, place, time, and situation, no focal neurological deficit observed.] Constitutional Vital Signs, click to edit/add: Last Vital Signs Temp 98.1 F 06/03/24 08:36 Pulse 71 06/03/24 08:36 Resp 20 06/03/24 08:36 BP 182/81 H 06/03/24 08:36 Pulse Ox 98 06/03/24 08:36 O2 Del Method Room Air 06/03/24 08:36 Course Vital Signs Vital signs: Vital Signs Temperature 98.1 F 06/03/24 08:36 Pulse Rate 71 06/03/24 08:36 Respiratory Rate 20 06/03/24 08:36 Blood Pressure 182/81 H 06/03/24 08:36 Pulse Oximetry 98 06/03/24 08:36 Oxygen Delivery Method Room Air 06/03/24 08:36 Temperature 98.1 F 06/03/24 08:36 Pulse Rate 71 06/03/24 08:36 Respiratory Rate 20 06/03/24 08:36 Blood Pressure 182/81 H 06/03/24 08:36 Pulse Oximetry 98 06/03/24 08:36 Oxygen Delivery Method Room Air 06/03/24 08:36 MDM - Abdominal Pain MDM Narrative Medical decision making narrative: Patient's labs are negative for acute. CT scan does not show any bowel obstruction or new mass on the scan. Patient did just get his More catheter changed yesterday and family states this all started a couple of hours after the More catheter change. The More is draining. It is possible that this is bladder spasms. The pain does seem to come and go and he is feeling it in the rectal area which could make sense for bladder spasms. I called and spoke to Dr. Ba who knows the patient well. He agrees with plan for discharge home, will trial some Ditropan for the bladder spasms and Dr. Ba will see the patient tomorrow in the office. Patient and family are comfortable care plan for home of course return to ED if worsening symptoms or any further concerns. Differential Diagnosis Differential diagnosis: Likely abdominal pain, constipation, diverticulitis and small bowel obstruction Medical Records Attestation: I reviewed the patient's medical records. Lab Data Attestation: I reviewed the patient's lab results. Labs: Lab Results 06/03/24 Range/Units 08:55 WBC 8.1 (4.0-11.0) 10^3/uL RBC 4.76 (4.70-6.10) 10^6/uL Hgb 14.9 (14.0-18.0) g/dL Hct 43.6 (42.0-54.0) % MCV 91.6 (80.0-94.0) fL MCH 31.3 (25.9-34.0) pg MCHC 34.2 (29.9-35.2) g/dL RDW 13.4 (11.0-15.0) % Plt Count 173 (150-450) 10^3/uL MPV 10.4 (9.5-13.5) fL Neut % (Auto) 65.1 (43.0-75.0) % Lymph % (Auto) 22.4 (20.5-60.0) % [place] % (Auto) 7.9 (1.7-12.0) % Eos % (Auto) 3.7 (0.9-7.0) % Baso % (Auto) 0.5 (0.2-2.0) % Neut # (Auto) 5.3 (1.4-6.5) 10^3/uL Lymph # (Auto) 1.8 (1.2-3.8) 10^3/uL [place]assen # (Auto) 0.6 (0.3-0.8) 10^3/uL Eos # (Auto) 0.3 (0.0-0.7) 10^3/uL Baso # (Auto) 0.0 (0.0-0.1) 10^3/uL Abs Immat Gran (auto) 0.03 (0.00-0.03) 10^3/uL Imm/Tot Granulo (auto) 0.4 (0.0-0.5) % Sodium 139 (136-145) mmol/L Potassium 3.8 (3.5-5.1) mmol/L Chloride 104 (98-107) mmol/L Carbon Dioxide 24.2 (21.0-32.0) mmol/L Anion Gap 14.6 BUN 24.0 H (7.0-18.0) mg/dL Creatinine 1.00 (0.70-1.30) mg/dL Est GFR ( Amer) >60 (>=60 mL/min/1.73m^2) Est GFR (Non-Af Amer) >60 (>=60 mL/min/1.73m^2) BUN/Creatinine Ratio 24.0 Glucose 133 H (74-106) mg/dL Calcium 8.8 (8.5-10.1) mg/dL Total Bilirubin 1.0 (0.2-1.0) mg/dL AST 19 (15-37) U/L ALT 25 (16-63) U/L Alkaline Phosphatase 111 (46-116) U/L Total Protein 6.9 (6.4-8.2) g/dL Albumin 3.2 L (3.4-5.0) g/dL Globulin 3.7 g/dL Albumin/Globulin Ratio 0.[address] scan - abdomen: Radiologist's impression: ITS Impressions Abdomen/Pelvis CT 06/03/24 08:45 IMPRESSION: 1. No bowel obstruction or significant stool burden. Prior rectal resection and anastomosis without appreciable abnormality. 2. No mass or lymphadenopathy to suggest recurrent or metastatic disease. 3. Cholelithiasis. 4. Narrowing of the infrarenal aorta secondary to noncalcified plaque. 5. Wall thickening of urinary bladder favoring muscular hypertrophy. Electronically authenticated by: ROMEO JOSEPH Date: 06/03/2024 10:11 Discharge Plan Discharge Chief Complaint: Abdominal Pain Clinical Impression: Abdominal pain Patient Disposition: Home, Self-Care Time of Disposition Decision: 10:39 Condition: Fair Mode of Transportation: Private Vehicle Prescriptions / Home Meds: New oxybutynin chloride 5 mg tablet 5 mg PO DAILY Qty: 10 0RF No Action atorvastatin 40 mg tablet 40 mg PO DAILY dorzolamide-timolol 22.3-6.8 mg/mL drops 1 drp OPHTHALMIC (EYE) BID Rx Instructions: BOTH EYES icosapent ethyl 1 gram capsule 2 g PO BID latanoprost 0.005 % drops 1 drp OPHTHALMIC (EYE) .QHS Rx Instructions: RIGHT EYE lisinopril 10 mg tablet 10 mg PO DAILY meloxicam 15 mg tablet 15 mg PO DAILY Rhopressa 0.02 % drops 1 drp OPHTHALMIC (EYE) DAILY Rx Instructions: RIGHT EYE tamsulosin 0.4 mg capsule 0.4 mg PO BID aspirin 81 mg tablet,delayed release (DR/EC) 81 mg PO DAILY lidocaine 5 % adhesive patch,medicated 1 patch topical DAILY Qty: 30 2RF Rx Instructions: leave on most painful area for up to 12 hrs each day cetirizine 10 mg tablet 10 mg PO DAILY hyoscyamine sulfate 0.125 mg tablet, sublingual 0.125 mg sublingual Q6H brimonidine 0.2 % drops OPHTHALMIC (EYE) fluticasone propionate 50 mcg/actuation spray,suspension 1 spray INTRANASAL DAILY cephalexin 500 mg capsule 500 mg PO TID 7 Days Qty: 21 0RF etodolac 300 mg capsule 300 mg PO Q8H PRN (Reason: pain) Qty: 20 0RF Print Language: [place] Instructions: Abdominal Pain (ED) Referrals: Bayron Ba MD [Primary Care Provider] - 1 week
--- OUTSIDE RECORDS SUMMARY | 2024-06-03 08:50 | XMS_ITS | CCD ---
Author Organization [facility] Care Team Providers Care Activity Aide Name Role Phone Eliana Ba Primary Care Physician [phone] GERONIMO .KARLOS Admitting Unavailable GERONIMO ., KARLOS [...] Consulting Unavailable Rocio Chan Unavailable Givalerieitis , Andbryce Conner Attending Unavailable Giedraitis , Andrius Vchasity Attending Unavailable Giedraitis , Andrius Vchasity Attending Unavailable Giedraitis , Andrius Vytsahil Attending Unavailable Giedraitis , Andrius Vytautoli Attending Unavailable Orzech, Lazara X Attending Unavailable Orzech, Lazara X Admitting Unavailable Orgeech, Lazara X Attending Unavailable DONNA ANTONY Attending Unavailable ELIANA BA M Primary Care Unavailable RAMEZ LERNER Admitting Unavailable DONNA ANTONY Attending Unavailable DONNA ANTONY Referring Unavailable ELIANA BA M Primary Care Unavailable DONNA ANTONY Attending Unavailable DONNA ANTONY Referring Unavailable ELIANA BA M Primary Care Unavailable MALDONADO, RUQIYYA T Attending Unavailable JOEL, RUQIYYA T Referring Unavailable ELIANA BA M Primary Care Unavailable MALDONADO, RUQIYYA T Attending Unavailable JOEL, RUQIYYA T Referring Unavailable ELIANA BA M Primary Care Unavailable MALDONADO, RUQIYYA T Attending Unavailable MALDONADO, RUQIYYA T Referring Unavailable ELIANA BA M Primary Care Unavailable RAMBO MILLIGAN Attending Unavailable RAMBO MILLIGAN Referring Unavailable MARCUS, ELIANA M Primary Care Unavailable ABEBAY, ELIANA M Referring Unavailable MARCUS, ELIANA M Primary Care Unavailable Lazara Lino Attending Unavailable Emily Maria Attending Unavailable Lazara Lino X Attending Unavailable Reno VALENTIN Attending Unavailable Reno VALENTIN Referring Unavailable OrLazara munoz X Attending Unavailable OrLazara munoz X Attending Unavailable Allergies Allergy Classification Reported Allergen(s) Allergy Type Date of Onset Reaction(s) Facility Quinolones (antibiotic) (2 sources) levoFLOXacin; Translations: [levofloxacin] Drug Allergy Irritation (qualifier value) [facility] (7 sources) levoFLOXacin; Translations: [levofloxacin] Drug Allergy 04-17-2024 Irritation (qualifier value) [facility] Medications Current Medications Medication Drug Class(es) [...] day(s), # 20 cap(s), Refills(s) 0, Pharmacy: [facility] #[id number], 160, cm, 09/26/22 13:50:00 EST, Height/Length Dosing, [...] 03-07-2022 take 1 capsule by [facility] twice daily tamsulosin 0.4 mg Cap 0.4 mg = 1 cap(s), Oral, BID, # 180 cap(s), Refills(s) 3, Pharmacy: [address], 160, cm, 10/16/21 14:26:00 EST, Height/Length [...] Corticosteroid Start: 03-17-2024 fluticasone Nasal 0.05 mg/inh [place] [facility] 1 spray into each nostril once [...] 09-28-2022 Episodic Other aftercare (1 source) Other group home (current) drug therapy; Translations: [OTH [facility] CURRENT DRUG THERAPY] Onset: 09-20-2022 Episodic Other aftercare (1 source) half-way (current) use of aspirin; Translations: [[facility] CURRENT USE OF ASPIRIN] Onset: 09-20-2022 Episodic [...] 04-20-2024 Albumin [Mass/Vol] 3.4 g/dL Normal 3.2-5.3 [facility] Comment on above: Performed By: #### C MP ####[facility] ([id number])[address] [place] [address], [place] [address] ALP [Catalytic activity/Vol] 73 U/L Normal 39-130 [facility] Comment on above: Performed By: #### C MP ####[facility] ([id number])[address] [place] [address], [place] [address] ALT [Catalytic activity/Vol] 21 U/L Normal 0-40 [facility] Comment on above: Performed By: #### C MP ####[facility] ([id number])[address] [place] [address], [place] [address] Anion gap [Moles/Vol] 8 mmol/L Normal 5-15 [facility] Comment on above: Performed By: #### C MP ####[facility] ([id number])[address] [place] [address], [place] [address] AST [Catalytic activity/Vol] 17 U/L Normal 0-41 [facility] Comment on above: Performed By: #### C MP ####[facility] ([id number])[address] [place] [address], [place] [address] Bilirubin [Mass/Vol] 0.7 mg/dL Normal 0.3-1.2 [facility] Comment on above: Performed By: #### C MP ####[facility] ([id number])[address] [place] [address], [place] [address] Calcium [Mass/Vol] 8.4 mg/dL Low 8.5-10.5 [facility] Comment on above: Performed By: #### C MP ####[facility] ([id number])[address] [place] [address], [place] [address] Chloride [Moles/Vol] 102 mmol/L Normal 98-109 [facility] Comment on above: Performed By: #### C MP ####[facility] ([id number])[address] [place] [address] 04025 CO2 [Moles/Vol] 24 mmol/L Normal 22-32 [facility] Comment on above: Performed By: #### C MP ####[facility] ([id number])[address] [place] [address] 67659 Creatinine [Mass/Vol] 0.85 mg/dL Normal 0.70-1.20 [facility] Comment on above: Result Comment: METH OD TRACEABLE TO IDMS STANDARD Performed By: #### C MP ####[facility] ([id number])[address] [place] [address]24 GFR/1.73 sq M.predicted among non-blacks MDRD (S/P/Bld) [Vol rate/Area] 87 mL/min/{1.73_m2} Normal >59 [facility] Comment on above: Result Comment: Reported eGFR is based on the CKD-EPI 2021 equation that does not use a race coefficient. Performed By: #### C MP ####[facility] ([id number])[address] [place] [address] 00091 Glucose [Mass/Vol] 119 mg/dL High 65-99 [facility] Comment on above: Performed By: #### C MP ####[facility] ([id number])[address] [place] [address] 26953 Potassium [Moles/Vol] 3.4 mmol/L Low 3.5-5.0 [facility] Comment on above: Performed By: #### C MP ####[facility] ([id number])[address] [place] [address] 11788 Protein [Mass/Vol] 6.4 g/dL Normal 6.0-8.0 [facility] Comment on above: Performed By: #### C MP ####[facility] ([id number])[address] [place] [address] [place] [address] Sodium [Moles/Vol] 134 mmol/L Normal 134-146 [facility] Comment on above: Performed By: #### C MP ####[facility] ([id number])[address] [place] [address] [place] [address] Urea nitrogen [Mass/Vol] 19 mg/dL Normal 5-27 [facility] Comment on above: Performed By: #### C MP ####[facility] ([id number])[address] [place] [address] 36594 CBC AND AUTO DIFFon 04-19- 24 ABSOLUTE BASOPHIL 0.0 X10E9/L Normal 0.0-0.2 [facility] Comment on above: Performed By: #### C MP, CBCA ####[facility] ([id number])[address] [place] [address] 52102 ABSOLUTE NEUTROPHIL 3.3 X10E9/L Normal 1.5-6.6 [facility] Comment on above: Performed By: #### C MP, CBCA ####[facility] ([id number])[address] [place] [address] 04447 Basophils/100 WBC (Bld) 0.4 % Normal [facility] Comment on above: Performed By: #### C MP, CBCA ####[facility] ([id number])[address] [place] [address] [place] [address] Eosinophils (Bld) [#/Vol] 0.3 10*3/uL Normal 0.0-0.4 [facility] Comment on above: Performed By: #### C MP, CBCA ####[facility] ([id number])[address] [place] [address] [place] [address] Eosinophils/100 WBC (Bld) 4.5 % Normal [facility] Comment on above: Performed By: #### C MP, CBCA ####[facility] ([id number])[address] [place] [address] 86012 Erythrocyte distribution width (RBC) [Ratio] 13.4 % Normal 11.5-15.0 [facility] Comment on above: Performed By: #### C MP, CBCA ####[facility] ([id number])[address] [place] [address] 38879 Hematocrit (Bld) [Volume fraction] 43.2 % Normal 39-49 [facility] Comment on above: Performed By: #### C MP, CBCA ####[facility] ([id number])[address] [place] [address] 90964 Hemoglobin (Bld) [Mass/Vol] 15.1 g/dL Normal 13.0-17.0 [facility] Comment on above: Performed By: #### C MP, CBCA ####[facility] ([id number])[address] [place] [address] 49296 Lymphocytes (Bld) [#/Vol] 2.1 10*3/uL Normal 1.0-3.5 [facility] Comment on above: Performed By: #### C MP, CBCA ####[facility] ([id number])[address] [place] [address] 03372 Lymphocytes/100 WBC (Bld) 33.9 % Normal [facility] Comment on above: Performed By: #### C MP, CBCA ####[facility] ([id number])[address] [place] [address] 73997 MCH (RBC) [Entitic mass] 31.9 pg Normal 27-34 [facility] Comment on above: Performed By: #### C MP, CBCA ####[facility] ([id number])[address] [place] [address] 91454 MCHC (RBC) [Mass/Vol] 34.8 g/dL Normal 32-36 [facility] Comment on above: Performed By: #### C MP, CBCA ####[facility] ([id number])[address] [place] [address] 82986 MCV (RBC) [Entitic vol] 92 fL Normal 80-100 [facility] Comment on above: Performed By: #### C MP, CBCA ####[facility] ([id number])[address] [place] [address] 57359 Monocytes (Bld) [#/Vol] 0.5 10*3/uL Normal 0-0.9 [facility] Comment on above: Performed By: #### C MP, CBCA ####[facility] ([id number])[address] [place] [address] 88274 Monocytes/100 WBC (Bld) 8.5 % Normal [facility] Comment on above: Performed By: #### C MP, CBCA ####[facility] ([id number])[address] [place] [address] 04133 Neutrophils/100 WBC (Bld) 52.7 % Normal [facility] Comment on above: Performed By: #### C MP, CBCA ####[facility] ([id number])[address] [place] [address] 82333 Platelet mean volume (Bld) [Entitic vol] 8.2 fL Normal 7-12 [facility] Comment on above: Performed By: #### C MP, CBCA ####[facility] ([id number])[address] [place] [address] 64615 Platelets (Bld) [#/Vol] 140 10*3/uL Low 150-450 [facility] Comment on above: Performed By: #### C MP, CBCA ####[facility] ([id number])[address] [place] [address] 51130 RBC COUNT 4.71 X10E12/L Normal 4.10-5.70 [facility] Comment on above: Performed By: #### C SERINA CBCA ####[facility] ([id number])[address] [place] [address] 61367 WBC (Bld) [#/Vol] 6.2 10*3/uL Normal 4.0-11.0 [facility] Comment on above: Performed By: #### C SERINA CBCA ####[facility] ([id number])[address] [place] [address] 48681 COMPREHENSIVE METABOLIC PANE [facility] ([place], [place]) 04-19-2024 Albumin [Mass/Vol] 3.4 g/dL Normal 3.2-5.3 [facility] Comment on above: Performed By: #### C SERINA CBCA ####[facility] ([id number])[address] [place] [address] 03234 ALP [Catalytic activity/Vol] 69 U/L Normal 39-130 [facility] Comment on above: Performed By: #### C SERINA CBCA ####[facility] ([id number])[address] [place] [address] 65133 ALT [Catalytic activity/Vol] 18 U/L Normal 0-40 [facility] Comment on above: Performed By: #### C SERINA CBCA ####[facility] ([id number])[address] [place] [address] 82174 Anion gap [Moles/Vol] 9 mmol/L Normal 5-15 [facility] Comment on above: Performed By: #### C SERINA CBCA ####[facility] ([id number])[address] [place] [address] 10443 AST [Catalytic activity/Vol] 23 U/L Normal 0-41 [facility] Comment on above: Performed By: #### C MP, CBCA ####[facility] ([id number])[address] [place] [address] 30634 Bilirubin [Mass/Vol] 1.0 mg/dL Normal 0.3-1.2 [facility] Comment on above: Result Comment: RESU LTS QUESTIONABLE DUE TO HEMOLYSIS Performed By: #### C SERINA, CBCA ####[facility] ([id number])[address] [place] [address] 78711 Calcium [Mass/Vol] 8.3 mg/dL Low 8.5-10.5 [facility] Comment on above: Performed By: #### C SERINA, CBCA ####[facility] ([id number])[address] [place] [address] 82634 Chloride [Moles/Vol] 107 mmol/L Normal 98-109 [facility] Comment on above: Performed By: #### C SERINA, CBCA ####[facility] ([id number])[address] [place] [address] 14296 CO2 [Moles/Vol] 21 mmol/L Low 22-32 [facility] Comment on above: Performed By: #### C SERINA, CBCA ####[facility] ([id number])[address] [place] [address] 24747 Creatinine [Mass/Vol] 0.81 mg/dL Normal 0.70-1.20 [facility] Comment on above: Result Comment: METH OD TRACEABLE TO IDMS STANDARD Performed By: #### C SERINA, CBCA ####[facility] ([id number])[address] [place] [address] 02982 GFR/1.73 sq M.predicted among non-blacks MDRD (S/P/Bld) [Vol rate/Area] 89 mL/min/{1.73_m2} Normal >59 [facility] Comment on above: Result Comment: Reported eGFR is based on the CKD-EPI 2020 equation that does not use a race coefficient. Performed By: #### C SERINA, CBCA ####[facility] ([id number])[address] [place] [address] 11627 Glucose [Mass/Vol] 125 mg/dL High 65-99 [facility] Comment on above: Performed By: #### C SERINA, CBCA ####[facility] ([id number])[address] [place] [address] 24508 Potassium [Moles/Vol] 4.0 mmol/L Normal 3.5-5.0 [facility] Comment on above: Result Comment: SPEC IMEN HEMOLYZED, RESULTS INCREASED Performed By: #### C SERINA, CBCA ####[facility] ([id number])[address] [place] [address] 90232 Protein [Mass/Vol] 6.0 g/dL Normal 6.0-8.0 [facility] Comment on above: Performed By: #### C SERINA, CBCA ####[facility] ([id number])[address] [place] [address] 56977 Sodium [Moles/Vol] 137 mmol/L Normal 134-146 [facility] Comment on above: Performed By: #### C SERINA, CBCA ####[facility] ([id number])[address] [place] [address] 69730 Urea nitrogen [Mass/Vol] 16 mg/dL Normal 5-27 [facility] Comment on above: Performed By: #### C SERINA, CBCA ####[facility] ([id number])[address] [place] [address] 09210 Calcium.ionized (Bld) [Moles /Vol]on 04-19-2024 PORTABLE ICA 4.6 mg/dL Normal 4.5-5.3 [facility] Comment on above: Performed By: #### 1 994-3 ####[facility] ([id number])[address] [place] [address] 97258 CBC AND AUTO DIFFon 24- 24 ABSOLUTE BASOPHIL 0.1 X10E9/L Normal 0.0-0.2 [facility] Comment on above: Performed By: #### C BCA, CMP ####[facility] ([id number])[address] [place] [address] 67383#### 95835-3 ####[facility] ([id number])[address], [address], [place] [address] ABSOLUTE NEUTROPHIL 2.7 X10E9/L Normal 1.5-6.6 [facility] Comment on above: Performed By: #### C BCA, CMP ####[facility] ([id number])[address] [place] [address] 14618#### 27752-5 ####[facility] ([id number])[address], [address], [place] [address] Basophils/100 WBC (Bld) 0.9 % Normal [facility] Comment on above: Performed By: #### C BCA, CMP ####[facility] ([id number])[address] [place] [address] 91642#### 48677-1 ####[facility] ([id number])[address], [place] [address] Eosinophils (Bld) [#/Vol] 0.2 10*3/uL Normal 0.0-0.4 [facility] Comment on above: Performed By: #### C BCA, CMP ####[facility] ([id number])[address] [place] [address] 64552#### 18705-9 ####[facility] ([id number])[address], [address], [place] [address] Eosinophils/100 WBC (Bld) 4.1 % Normal [facility] Comment on above: Performed By: #### C BCA, CMP ####[facility] ([id number])[address] [place] [address] 69262#### 65624-8 ####[facility] ([id number])[address], [address] [place] [address] 69816 Erythrocyte distribution width (RBC) [Ratio] 13.8 % Normal 11.5-15.0 [facility] Comment on above: Performed By: #### C BCA, CMP ####[facility] ([id number])[address] [place] [address] 37983#### 41678-6 ####[facility] ([id number])[address], [address] [place] [address] 87050 Hematocrit (Bld) [Volume fraction] 41.2 % Normal 39-49 [facility] Comment on above: Performed By: #### C BCA, CMP ####[facility] ([id number])[address] [place] [address] 79446#### 24159-8 ####[facility] ([id number])[address], [address] [place] [address] 14686 Hemoglobin (Bld) [Mass/Vol] 14.1 g/dL Normal 13.0-17.0 [facility] Comment on above: Performed By: #### C BCA, CMP ####[facility] ([id number])[address] [place] [address] 44302#### 67822-4 ####[facility] ([id number])[address], [address] [place] [address] 77074 Lymphocytes (Bld) [#/Vol] 1.9 10*3/uL Normal 1.0-3.5 [facility] Comment on above: Performed By: #### C BCA, CMP ####[facility] ([id number])[address] [place] [address] 91261#### 79671-0 ####[facility] ([id number])[address], [address], [place] [address] Lymphocytes/100 WBC (Bld) 35.6 % Normal [facility] Comment on above: Performed By: #### C BCA, CMP ####[facility] ([id number])[address] [place] [address] 25773#### 08515-3 ####[facility] ([id number])[address], [address], [place] [address] MCH (RBC) [Entitic mass] 31.7 pg Normal 27-34 [facility] Comment on above: Performed By: #### C BCA, CMP ####[facility] ([id number])[address] [place] [address] 33254#### 05398-9 ####[facility] ([id number])[address], [address], [place] [address] MCHC (RBC) [Mass/Vol] 34.2 g/dL Normal 32-36 [facility] Comment on above: Performed By: #### C BCA, CMP ####[facility] ([id number])[address] [place] [address] 53040#### 40507-9 ####[facility] ([id number])[address], [address] [place] [address] MCV (RBC) [Entitic vol] 93 fL Normal 80-100 [facility] Comment on above: Performed By: #### C BCA, CMP ####[facility] ([id number])[address] [place] [address] 91686#### 15558-2 ####[facility] ([id number])[address], [place] [address] Monocytes (Bld) [#/Vol] 0.5 10*3/uL Normal 0-0.9 [facility] Comment on above: Performed By: #### C BCA, CMP ####[facility] ([id number])[address] [place] [address] 60648#### 62500-5 ####[facility] ([id number])[address], [address] [place] [address] Monocytes/100 WBC (Bld) 9.4 % Normal [facility] Comment on above: Performed By: #### C BCA, CMP ####[facility] ([id number])[address] [place] [address] 11165#### 05587-5 ####[facility] ([id number])[address], [address] [place] [address] Neutrophils/100 WBC (Bld) 50.0 % Normal [facility] Comment on above: Performed By: #### C BCA, CMP ####[facility] ([id number])[address] [place] [address] 54459#### 87076-1 ####[facility] ([id number])[address] [place] [address] Platelet mean volume (Bld) [Entitic vol] 8.2 fL Normal 7-12 [facility] Comment on above: Performed By: #### C BCA, CMP ####[facility] ([id number])[address] [place] [address] 73715#### 32499-7 ####[facility] ([id number])[address] [place] [address] Platelets (Bld) [#/Vol] 159 10*3/uL Normal 150-450 [facility] Comment on above: Performed By: #### C BCA, CMP ####[facility] ([id number])[address] [place] [address] 71440#### 88510-4 ####[facility] ([id number])[address], [address] [place] [address] 68095 RBC COUNT 4.45 X10E12/L Normal 4.10-5.70 [facility] Comment on above: Performed By: #### C BCA, CMP ####[facility] ([id number])[address] [place] [address] 25231#### 47730-0 ####[facility] ([id number])[address], [address] [place] [address] 38630 WBC (Bld) [#/Vol] 5.4 10*3/uL Normal 4.0-11.0 [facility] Comment on above: Performed By: #### C BCA, CMP ####[facility] ([id number])[address] [place] [address] 68472#### 68236-8 ####[facility] ([id number])[address], [address] [place] [address] 24509 COMPREHENSIVE METABOLIC PANE J[facility] 04-18-2024 Albumin [Mass/Vol] 3.3 g/dL Normal 3.2-5.3 [facility] Comment on above: Performed By: #### C BCA, CMP ####[facility] ([id number])[address] [place] [address] 50635#### 74077-9 ####[facility] ([id number])[address], [address] [place] [address] 59070 ALP [Catalytic activity/Vol] 67 U/L Normal 39-130 [facility] Comment on above: Performed By: #### C BCA, CMP ####[facility] ([id number])[address] [place] [address] 62573#### 94349-6 ####[facility] ([id number])[address], [address], [place] [address] ALT [Catalytic activity/Vol] 18 U/L Normal 0-40 [facility] Comment on above: Performed By: #### C BCA, CMP ####[facility] ([id number])[address] [place] [address] 57999#### 30339-2 ####[facility] ([id number])[address], [address], [place] [address] Anion gap [Moles/Vol] 7 mmol/L Normal 5-15 [facility] Comment on above: Performed By: #### C BCA, CMP ####[facility] ([id number])[address] [place] [address] 27516#### 08157-6 ####[facility] ([id number])[address], [place] [address] AST [Catalytic activity/Vol] 17 U/L Normal 0-41 [facility] Comment on above: Performed By: #### C BCA, CMP ####[facility] ([id number])[address] [place] [address] 09962#### 32261-7 ####[facility] ([id number])[address] [place] [address] Bilirubin [Mass/Vol] 0.8 mg/dL Normal 0.3-1.2 [facility] Comment on above: Performed By: #### C BCA, CMP ####[facility] ([id number])[address] [place] [address] 08354#### 62110-4 ####[facility] ([id number])[address], [address] [place] [address] Calcium [Mass/Vol] 8.2 mg/dL Low 8.5-10.5 [facility] Comment on above: Performed By: #### C BCA, CMP ####[facility] ([id number])[address] [place] [address] 25517#### 25423-8 ####[facility] ([id number])[address], [address] [place] [address] Chloride [Moles/Vol] 108 mmol/L Normal 98-109 [facility] Comment on above: Performed By: #### C BCA, CMP ####[facility] ([id number])[address] [place] [address]1781#### 18808-1 ####[facility] ([id number])[address] [place] [address] CO2 [Moles/Vol] 23 mmol/L Normal 22-32 [facility] Comment on above: Performed By: #### C BCA, CMP ####[facility] ([id number])[address] [place] [address]7566#### 44431-6 ####[facility] ([id number])[address], [address] [place] [address] Creatinine [Mass/Vol] 0.75 mg/dL Normal 0.70-1.20 [facility] Comment on above: Result Comment: METH OD TRACEABLE TO IDMS STANDARD Performed By: #### C BCA, CMP ####[facility] ([id number])[address] [place] [address]49#### [id number] ####[facility] ([id number])[address], [address], [place] [address] eGFR (CKD-EPI) NON-RACE DEPENDENT >90 Normal >59 [facility] Comment on above: Result Comment: Reported eGFR is based on the CKD-EPI 2020 equation that does not use a race coefficient. Performed By: #### C BCA, CMP ####[facility] ([id number])[address] [place] [address] 49671#### 60630-8 ####[facility] [facility] ([id number])[address], [address], [place] [address] Glucose [Mass/Vol] 110 mg/dL High 65-99 [facility] Comment on above: Performed By: #### C BCA, CMP ####[facility] ([id number])[address] [place] [address] 43121#### 73418-9 ####[facility] ([id number])[address] [address], [place] [address] Potassium [Moles/Vol] 3.5 mmol/L Normal 3.5-5.0 [facility] Comment on above: Performed By: #### C BCA, CMP ####[facility] ([id number])[address] [place] [address] 65014#### 39968-4 ####[facility] ([id number])[address] [address], [place] [address] Protein [Mass/Vol] 5.9 g/dL Low 6.0-8.0 [facility] Comment on above: Performed By: #### C BCA, CMP ####[facility] ([id number])[address] [place] [address] 92215#### 58951-2 ####[facility] ([id number])[address] [address] [place] [address] Sodium [Moles/Vol] 138 mmol/L Normal 134-146 [facility] Comment on above: Performed By: #### Alessandro BCA, CMP ####[facility] ([id number])[address] [place] [address] 06690#### 84488-7 ####[facility] ([id number])[address], [address] [place] [address] 20338 Urea nitrogen [Mass/Vol] 16 mg/dL Normal 5-27 [facility] Comment on above: Performed By: #### C BCA, CMP ####[facility] ([id number])[address] [place] [address] 69484#### 48165-5 ####[facility] ([id number])[address], [address] [place] [address] 10403 Lipid 1996 panelon 4 Cholesterol [Mass/Vol] 117 mg/dL Low 150-200 [facility] Comment on above: Performed By: #### Alessandro BCA, CMP ####[facility] ([id number])[address] [place] [address] 63958#### 72458-8 ####[facility] ([id number])[address], [address] [place] [address] 32653 Cholesterol in HDL [Mass/Vol] 28 mg/dL Low >39 [facility] Comment on above: Result Comment: HDL <40 mg/dL - High Risk HDL > or = 40mg/dL- Desirable HDL >60 mg/dL - Negative Risk Performed By: #### C BCA, CMP ####[facility] ([id number])[address] [place] [address] 26966#### 11126-9 ####[facility] ([id number])[address], [address], [place] [address] Cholesterol in LDL [Mass/Vol] 35 mg/dL Normal <130 [facility] Comment on above: Result Comment: LDL <100 mg/dL - Desirable LDL >160 mg/dL - High Risk Performed By: #### C BCA, CMP ####[facility] ([id number])[address] [place] [address] 97131#### 19474-9 ####[facility] ([id number])[address], [address] [place] [address] 10071 Cholesterol in VLDL [Mass/Vol] 54 mg/dL High 0-30 [facility] Comment on above: Performed By: #### C BCA, CMP ####[facility] ([id number])[address] [place] [address] 79320#### 62717-9 ####[facility] ([id number])[address], [address] [place] [address] 31681 CHOLESTEROL:HDL 4.2 Normal 1.0-5.0 [facility] Comment on above: Performed By: #### C BCA, CMP ####[facility] ([id number])[address] [place] [address] 89190#### 29073-1 ####[facility] ([id number])[address], [address] [place] [address] 54562 Triglyceride [Mass/Vol] 270 mg/dL High 27-150 [facility] Comment on above: Performed By: #### C BCA, CMP ####[facility] ([id number])[address] [place] [address] 36429#### 96770-1 ####[facility] ([id number])[address], [address], [place] [address] POTASSIUMon 04-18-2024 Potassium [Moles/Vol] 4.1 mmol/L Normal 3.5-5.0 [facility] Comment on above: Performed By: #### 2 823-3 ####[facility] ([id number])[address] [place] [address] 32058 BASIC METABOLIC PANLon 04-17 Anion gap [Moles/Vol] 5 mmol/L Normal 5-15 [facility] Comment on above: Performed By: #### C BCA, BMP, PINR, 67110-9, 18182-4, 3016-3, 302-7 #### [facility] ([id number]) [address] [place] [address] 84898 #### HA1C #### [facility] ([id number]) [address], [address] [place] [address] Calcium [Mass/Vol] 8.2 mg/dL Low 8.5-10.5 [facility] Comment on above: Performed By: #### C BCA, BMP, PINR, 94265-2, 26020-5, 3016-3, 3024-7 #### [facility] ([id number]) [address] [place] [address] 08947 #### HA1C #### [facility] ([id number]) [address], [address] [place] [address] Chloride [Moles/Vol] 105 mmol/L Normal 98-109 [facility] Comment on above: Performed By: #### C BCA, BMP, PINR, 37040-7, 79776-1, 3016-3, 3024-7 #### [facility] ([id number]) [address] [place] [address] 32218 #### HA1C #### [facility] ([id number]) [address], [address] [place] [address] CO2 [Moles/Vol] 26 mmol/L Normal 22-32 [facility] Comment on above: Performed By: #### C BCA, BMP, PINR, 62506-7, 77023-5, 3016-3, 3024-7 #### [facility] ([id number]) [address] [place] [address] 88743 #### HA1C #### [facility] ([id number]) [address] [facility], [address] [place] [address] Creatinine [Mass/Vol] 0.97 mg/dL Normal 0.70-1.20 [facility] Comment on above: Result Comment: METH OD TRACEABLE TO IDMS STANDARD Performed By: #### C BCA, BMP, PINR, 87344-4, 63766-0, 6-3, 3024-7 #### [facility] ([id number]) [address] [place] [address] 45209 #### HA1C #### [facility] ([id number]) [address], [address] [address] GFR/1.73 sq M.predicted among non-blacks MDRD (S/P/Bld) [Vol rate/Area] 78 mL/min/{1.73_m2} Normal >59 [facility] Comment on above: Result Comment: Reported eGFR is based on the CKD-EPI 2020 equation that does not use a race coefficient. Performed By: #### C BCA, BMP, PINR, 09712-5, 60853-9, 3016-3, 3024-7 #### [facility] ([id number]) [address] [place] [address] 91051 #### HA1C #### [facility] ([id number]) [address], [address] [place] [address] Glucose [Mass/Vol] 108 mg/dL High 65-99 [facility] Comment on above: Performed By: #### C BCA, BMP, PINR, 52659-5, 50074-9, 3016-3, 3023-7 #### [facility] ([id number]) [address] [place] [address] 74998 #### HA1C #### [facility] ([id number]) [address], [address] [place] [address] Potassium [Moles/Vol] 3.7 mmol/L Normal 3.5-5.0 [facility] Comment on above: Performed By: #### C BCA, BMP, PINR, 89841-4, 12188-1, 6-3, 3023-7 #### [facility] ([id number]) [address] [place] [address] 75914 #### HA1C #### [facility] ([id number]) [address], [address] [place] [address] Sodium [Moles/Vol] 136 mmol/L Normal 134-146 [facility] Comment on above: Performed By: #### C BCA, BMP, PINR, 30477-4, 42726-0, 6-3, 3023-7 #### [facility] ([id number]) [address] [place] [address] 08233 #### HA1C #### [facility] ([id number]) [address], [address] [place] [address] Urea nitrogen [Mass/Vol] 23 mg/dL Normal 5-27 [facility] Comment on above: Performed By: #### C BCA, BMP, PINR, 76138-6, 03504-3, 3016-3, 3023-7 #### [facility] ([id number]) [address] [place] [address] 25777 #### HA1C #### [facility] ([id number]) [address], [address] [place] [address] CBC AND AUTO DIFFon 04-17-20 ABSOLUTE BASOPHIL 0.0 X10E9/L Normal 0.0-0.2 [facility] Comment on above: Performed By: #### C BCA, BMP, PINR, 01617-4, 18362-0, 3016-3, 3024-7 #### [facility] ([id number]) [address] [place] [address] 61439 #### HA1C #### [facility] ([id number]) [address], [address] [place] [address] ABSOLUTE NEUTROPHIL 2.4 X10E9/L Normal 1.5-6.6 [facility] Comment on above: Performed By: #### C BCA, BMP, PINR, 87585-2, 40315-0, 3016-3, 3024-7 #### [facility] ([id number]) [address] [place] [address] 86655 #### HA1C #### [facility] ([id number]) [address], [address] [place] [address] Basophils/100 WBC (Bld) 0.8 % Normal [facility] Comment on above: Performed By: #### C BCA, BMP, PINR, 53684-7, 43240-0, 3016-3, 3024-7 #### [facility] ([id number]) [address] [place] [address] 38346 #### HA1C #### [facility] ([id number]) [address], [address] [place] [address] Eosinophils (Bld) [#/Vol] 0.2 10*3/uL Normal 0.0-0.4 [facility] Comment on above: Performed By: #### C BCA, BMP, PINR, 29088-0, 78642-2, 3015-3, 7 #### [facility] ([id number]) [address] [place] [address] 67168 #### HA1C #### [facility] ([id number]) [address], [address] [place] [address] Eosinophils/100 WBC (Bld) 4.1 % Normal [facility] Comment on above: Performed By: #### C BCA, BMP, PINR, 71226-8, 41429-5, 3015-3, 7 #### [facility] ([id number]) [address] [place] [address] 55252 #### HA1C #### [facility] ([id number]) [address], [address] [place] [address] Erythrocyte distribution width (RBC) [Ratio] 13.6 % Normal 11.5-15.0 [facility] Comment on above: Performed By: #### C BCA, BMP, PINR, 27896-3, 06032-4, 3015-10, 7 #### [facility] ([id number]) [address] [place] [address] 12225 #### HA1C #### [facility] ([id number]) [address], [address] [place] [address] Hematocrit (Bld) [Volume fraction] 41.0 % Normal 39-49 [facility] Comment on above: Performed By: #### C BCA, BMP, PINR, 13528-8, 15915-2, 3015-3, 7 #### [facility] ([id number]) [address] [place] [address] 97463 #### HA1C #### [facility] ([id number]) [address] [facility], [address] [place] [address] Hemoglobin (Bld) [Mass/Vol] 14.0 g/dL Normal 13.0-17.0 [facility] Comment on above: Performed By: #### C BCA, BMP, PINR, 78942-6, 95984-1, 3016-3, 3023-7 #### [facility] ([id number]) [address] [place] [address] 84400 #### HA1C #### [facility] ([id number]) [address] [place] [address], [address] [address] Lymphocytes (Bld) [#/Vol] 2.3 10*3/uL Normal 1.0-3.5 [facility] Comment on above: Performed By: #### C BCA, BMP, PINR, 00340-3, 95947-0, 6-3, 3024-02 #### [facility] ([id number]) [address] [place] [address] 74585 #### HA1C #### [facility] ([id number]) [address] [place] [address], [address] [place] [address]28 Lymphocytes/100 WBC (Bld) 41.5 % Normal [facility] Comment on above: Performed By: #### C BCA, BMP, PINR, 76586-2, 92693-6, 3015-3, 7 #### [facility] ([id number]) [address] [place] [address] 88921 #### HA1C #### [facility] ([id number]) [address] [place] [address], [address] [place] [address] MCH (RBC) [Entitic mass] 31.7 pg Normal 27-34 [facility] Comment on above: Performed By: #### C BCA, BMP, PINR, 45206-4, 43305-0, 3016-3, 7 #### [facility] ([id number]) [address] [place] [address] 59526 #### HA1C #### [facility] ([id number]) [address], [address] [place] [address] MCHC (RBC) [Mass/Vol] 34.1 g/dL Normal 32-36 [facility] Comment on above: Performed By: #### C BCA, BMP, PINR, 85169-9, 07547-9, 6-3, 3023-7 #### [facility] ([id number]) [address] [place] [address] 71161 #### HA1C #### [facility] ([id number]) [address], [address] [place] [address] MCV (RBC) [Entitic vol] 93 fL Normal 80-100 [facility] Comment on above: Performed By: #### C BCA, BMP, PINR, 91986-9, 70611-5, 3015-3, 7 #### [facility] ([id number]) [address] [place] [address] 88129 #### HA1C #### [facility] ([id number]) [address], [address] [place] [address] Monocytes (Bld) [#/Vol] 0.5 10*3/uL Normal 0-0.9 [facility] Comment on above: Performed By: #### C BCA, BMP, PINR, 12503-1, 84435-0, 3015-3, 3023-7 #### [facility] ([id number]) [address] [place] [address] 74515 #### HA1C #### [facility] ([id number]) [address], [address] [place] [address] Monocytes/100 WBC (Bld) 9.9 % Normal [facility] Comment on above: Performed By: #### C BCA, BMP, PINR, 56393-2, 60561-4, 3016-3, 3023-7 #### [facility] ([id number]) [address] [place] [address] 71792 #### HA1C #### [facility] ([id number]) [address], [address] [place] [address] Neutrophils/100 WBC (Bld) 43.7 % Normal [facility] Comment on above: Performed By: #### C BCA, BMP, PINR, 92532-2, 96015-9, 3015-3, 7 #### [facility] ([id number]) [address] [place] [address] 70620 #### HA1C #### [facility] ([id number]) [address] [facility], [address] [place] [address] Platelet mean volume (Bld) [Entitic vol] 8.2 fL Normal 7-12 [facility] Comment on above: Performed By: #### C BCA, BMP, PINR, 05734-2, 55486-4, 3015-3, 7 #### [facility] ([id number]) [address] [place] [address] 26041 #### HA1C #### [facility] ([id number]) [address], [address] [place] [address] Platelets (Bld) [#/Vol] 150 10*3/uL Normal 150-450 [facility] Comment on above: Performed By: #### C BCA, BMP, PINR, 70037-1, 21556-3, 6-3, 7 #### [facility] ([id number]) [address] [place] [address] 83618 #### HA1C #### [facility] ([id number]) [address], [address] [place] [address] RBC COUNT 4.41 X10E12/L Normal 4.10-5.70 [facility] Comment on above: Performed By: #### C BCA, BMP, PINR, 31432-9, 11415-9, 3016-3, 3024-7 #### [facility] ([id number]) [address] [place] [address] #### HA1C #### [facility] ([id number]) [address], [address] [place] [address] WBC (Bld) [#/Vol] 5.4 10*3/uL Normal 4.0-11.0 [facility] Comment on above: Performed By: #### C BCA, BMP, PINR, 96361-0, 53360-1, 3016-3, 3024-7 #### [facility] ([id number]) [address] [place] [address] #### HA1C #### [facility] ([id number]) [address], [address] [place] [address] CT CTA CAROTIDon 04-17-[address] CTA CAROTID History: Neuro deficit, acute, stroke suspected. Slurred speech Exam/Technique: CT angiogram performed following intravenous administration of 100 mL of Omnipaque 350. Coronal and sagittal and 3-D volume rendered maximum intensity projection images generated and reviewed under concurrent physician supervision. Automated exposure control utilized. The [place] Symptomatic Carotid Endarterectomy Trial (NASCET) method for [...] Armenta MD on 04/17/2024 9:08 AM Normal [facility] CT CTA HEADon 04-17-2024 CT CTA [...] posterior cerebral arteries. 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 Unremarkable vertebral, basilar arteries. 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 Unremarkable appearance of the orbits, visualized suprahyoid neck, scalp, brain parenchyma [which is suboptimally assessed]. Impression: No acute large vessel occlusion the major takot[place] of Mtz arterial structures. If there is persistent concern for ischemia, recommend MR. All CT scans at this facility use dose modulation, iterative reconstruction, and/or weight based dosing when appropriate to reduce radiation dose to as low as reasonably achievable. Finalized by Lázaro Solomon MD on 04/17/2024 9:00 AM Normal [facility] FREE T4on 04-17-2024 Free T4 [Mass/Vol] 0.91 ng/dL Normal 0.61-1.60 [facility] Comment on above: Performed By: #### C BCA, BMP, PINR, 01743-4, 55787-7, 3015-3, 7 #### [facility] ([id number]) [address] [place] [address] #### HA1C #### [facility] ([id number]) [address], [address] [place] [address] Glucose Glucometer (BldC) [M ass/Vol]on 04-17-2024 Glucose [Mass/Vol] 94 mg/dL Normal 65-99 [facility] HGB A1C (GLYCO-HGB)on 2023 Glucose [Mass/Vol] 134 mg/dL Normal [facility] Comment on above: Performed By: #### C BCA, BMP, PINR, 43237-1, 75847-7, 3, 7 ####[facility] ([id number])[address] [place] [address] 47700#### HA1C ####[facility] ([id number])[address], [address] [place] [address] HbA1c (Bld) [Mass fraction] 6.3 % High 4.4-5.6 [facility] Comment on above: Result Comment: NOTE ADA Guidelines Result HgbA1c Normal : less than 5.7 % Prediabetes : 5.7 % to 6.4 % Diabetes : > 6.4 % Use with caution in patients with abnormal hemoglobin variants as the half-life of red blood cells and in vivo glycation rates are affected. Performed By: #### C BCA, BMP, PINR, 00658-8, 93012-9, 6-3, 7 ####[facility] ([id number])[address] [place] [address] 15615#### HA1C ####[facility] ([id number])[address] [facility], [address] [place] [address] Lipid 1996 panelon 4 Cholesterol [Mass/Vol] 121 mg/dL Low 150-200 [facility] Comment on above: Performed By: #### 8 9579-7 ####[facility] ([id number])[address] [place] [address] 627[address]#### 61035-5, 99815-1, 54955-0 ####[facility] ([id number])[address] [facility], [address] [place] [address] Cholesterol in HDL [Mass/Vol] 34 mg/dL Low >39 [facility] Comment on above: Result Comment: HDL <40 mg/dL - High Risk HDL > or = 40mg/dL- Desirable HDL >60 mg/dL - Negative Risk Performed By: #### 8 9579-7 ####[facility] ([id number])[address] [place] [address] 45782#### 54287-6, 65677-1, 44273-7 ####[facility] ([id number])[address] [facility], [address] [place] [address] Cholesterol in LDL [Mass/Vol] 43 mg/dL Normal <130 [facility] Comment on above: Result Comment: LDL <100 mg/dL - Desirable LDL >160 mg/dL - High Risk Performed By: #### 8 9579-7 ####[facility] ([id number])[address] [place] [address]#### 84907-5, 36607-4, 51933-8 ####[facility] ([id number])[address], [address] [place] [address] Cholesterol in VLDL [Mass/Vol] 44 mg/dL High 0-30 [facility] Comment on above: Performed By: #### 8 9579-7 ####[facility] ([id number])[address] [place] [address] 92838#### 73987-8, 05086-6, 84496-0 ####[facility] ([id number])[address], [address] [place] [address] CHOLESTEROL:HDL 3.6 Normal 1.0-5.0 [facility] Comment on above: Performed By: #### 8 9579-7 ####[facility] ([id number])[address] [place] [address]996#### 86357-1, 07271-9, 61222-1 ####[facility] ([id number])[address], [address] [place] [address] Triglyceride [Mass/Vol] 218 mg/dL High 27-150 [facility] Comment on above: Performed By: #### 8 9579-7 ####[facility] ([id number])[address] [place] [address] 30852#### 15536-0, 08628-7, 70314-2 ####[facility] ([id number])[address], [address] [place] [address]1233 MR BRAIN WO CONTon 4 MR BRAIN [...] midline shift or extra axial fluid collection. Przv-bz-scvrnusi central greater than peripheral volume loss. Partially [...] Chi Hendrix on 04/17/2024 12:22 PM Normal [facility] Nuclear Ab IA Ql (S)on 04-17 [place] Screen w/reflex Negative Normal NEG [facility] Comment on above: Result Comment: Testing performed using multiplex flow immunoassay. Eleven different antigens associated with systemic autoimmune diseases (dsDNA,Sm,Sm/ALUMINUM SHINGLE ROOFER,ALUMINUM SHINGLE ROOFER,Chromatin, SSA,SSB,Vesna-1,Scl70,Ribo P,Centromere B) are included in this screening test. Performed By: #### 8 9579-7 ####[facility] ([id number])[address] [place] [address]#### 13498-1, 68006-7, 83147-4 ####[facility] ([id number])[address] [facility], [address] [place] [address] PROTIME AND INRon 04-17-2024 INR Coag (PPP) [Relative time] 1.2 {INR} High 0.8-1.1 [facility] Comment on above: Performed By: #### C BCA, BMP, PINR, 89165-1, 96833-7, 3016-3, 3023-7 #### [facility] ([id number]) [address] [place] [address] 25498 #### HA1C #### [facility] ([id number]) [address], [address] [place] [address] PT Coag (PPP) [Time] 13.6 s High 9.8-13.2 [facility] Comment on above: Result Comment: NEW REFERENCE RANGE Performed By: #### C BCA, BMP, PINR, 40001-7, 06630-8, 3015-3, 7 #### [facility] ([id number]) [address] [place] [address] 58395 #### HA1C #### [facility] ([id number]) [address], [address] [place] [address] Rheumatoid factor Nephelomet ry Qn (S)on 04-17-2024 RHEUMATOID FACTOR 36 IU/mL High <20 [facility] Comment on above: Performed By: #### 8 9579-7 ####[facility] ([id number])[address] [place] [address]#### 22221-5, 16315-6, 98447-2 ####[facility] ([id number])[address], [address] [place] [address] TSH Qnon 04-17-2024 TSH 1.23 uIU/mL Normal 0.49-4.67 [facility] Comment on above: Performed By: #### C BCA, BMP, PINR, 70965-9, 35812-9, 3016-3, 302-7 #### [facility] ([id number]) [address] [place] [address] #### HA1C #### [facility] ([id number]) [address] [facility] [place] [address] Troponin I.cardiac High sens itivity method [Mass/Vol]on 04-17-2024 1 HOUR TROP I, HIGH SENSITIVITY 8 ng/L Normal <21 [facility] Comment on above: Performed By: #### 8 9579-7 ####[facility] ([id number])[address] [place] [address]#### 09757-3, 54227-2, 17754-4 ####[facility] ([id number])[address] [facility], [address] [place] [address] TROPONIN I, HIGH SENSITIVITY 7 ng/L Normal <21 [facility] Comment on above: Performed By: #### C BCA, BMP, PINR, 60177-1, 93007-6, 3016-3, 3024-7 #### [facility] ([id number]) [address] [place] [address] #### HA1C #### [facility] ([id number]) [address] [place] [address], [address] [address] aPTT Coag (PPP) [Time]on aPTT Coag (Bld) [Time] 29 s Normal 26-37 [facility] Comment on above: Result Comment: NEW REFERENCE RANGE Performed By: #### C BCA, BMP, PINR, 25403-6, 01641-9, 3016-3, 3024-7 #### [facility] ([id number]) [address] [place] [address] #### HA1C #### [facility] ([id number]) [address] [facility] [place] [address] Urology Office/Clinic Noteon 03-20-2024 Urology Office/Clinic Note Urology Office/Clinic Note Chief Complaint ER f/u *Urinary Retention HPI Staff PRW pt Last seen in our office by INEZ 02/11/24 DX: BPH, Urethral Stricture, Gross Hematuria & UTI PVR at that time 108ml Here today to follow up to [facility] ER 03/11/24 CC: Urinary Retention PVR [...] (cc): 02/11/24 - 108 Pt presented to [facility] ER 03/11/24 with UR. PVR >230 [...] visit. Follo (more content not included)... Normal [facility] Comment on above: Result Comment: Elec [...] solution) fluticasone nasal (fluticasone Nasal 0.05 mg/inh [place]) hyoscyamine (hyoscyamine 0.125 mg sublingual Tab) icosapent [...] APRN, [place] [facility] Where: [facility] [address] [place] [address]- You Need to Schedule the Following Appointments [...] fluticasone nasal (fluticasone Nasal 0.05 mg/ inh [place]) instill 1 spray into each nostril once [...] urinary ret (more content not included)... Normal [facility] Coding Summary.on 02-19-2024 Coding Summary. JKYDIiey68HIb3aLq+PG hlYWQ+JH4GGIYgC27mjT GnwV5nJ6QKXEjMBcyvBT EGWKjAQqVfidCfCL3bxP NjZXJu IC8+CG3oQXPkSdrzgRDf n4U8wFH9R32szy8iOFzy mHP5NDEdQzNvpihgw6cb sMe1OSrcAqatNfBx WWQiuX90WUP9zP18Ma32 vNXiyDZlt3vtuXh3KuAt NTDoYTR8yGssCSnym6Gv DJEpL71weDRpa5A5 IGNvbGxhcHNlOyBlbXB0 lQ8nBMtkrcipz6bbtzga Mpr3rw16cYGpq8T9nBG5 L0JiomQ6TDUdfTIb PuluyMYFmK2asmnxw3sp wryuZhCxSTUkJIj3LZm8 JPJbcUfnHvNfKJ87AYU5 LJNnhpUhB0HiJPJe vQygGsD4b8O8Sn6TS5XB HladG4TXDSUIUHzhbFQ+ JY00eg35E3WtBreyLfr4 TIQrEWW9yXX9yG4i SMWzIIjls2G5tNB9O8Gg edLttd5gd0zeRZXrVXtl R43ldYCvv5M6QPRvsAU3 PVVwlUleCeAxnB51 Oyc+SAEnfSjvk1ZsLgac f1hwy0jpbBm8IepkMQGi woGokTdqKVV1p0JfLv5m TQQylYR6wWZ5pA8h NxGhBzC6WZbcP371McTm dBZaHmbcK31wR6WuaOD+ DNNdXvn7LURqoRuvOW5k G9IeNCOeujyzeNRs sCsbRK4mWVOvnoadOYMo lS1lVFCpI6e2WyYtHiS9 AWjoM5YrVEBscwunYj03 jL2aHcAqDmG5ACcl L7MmhxT4YZSgyIQvZOeu JDR3V09hr5F8LDSjPSCq FRV8cAA3oO7ycCqqwuok bGVmdDsgdmVydGlj KHqjUWspO167XEWnjQto PkNvZGluZyBEYXRlOiAg MDYvMjYvMjAyNDwvdGQ+ ZILoBNY2hSnrFPKf aURuZKxhNv8hzJgdnPti QG4vBFTjeeyfAWAaeZ2k JIHlaUOvrGgjXS1tRJHi dtegd917ZzTnZMZ3 TJThgMZoL0OxoY3jWpSh MQSoCUOnF8QcoCWvIDuu E070BHknZzI0NDVpgrPa X7FfNERrpFuxEaZ6 g9P6Iy8Rs2BtjbyvA1Om nQOrWiMzOzxrKGk4Y7Zr PjwvdHI+ZX16VXWnYP68 KLk7EBU7jLkwWJel SVDpL6YalR1dQoNiBKFd ZGRkOyc+PHRhYmxlIHdp ZHRoPScxMDAlJyBzdHls WD1dNm4xNIZkSQNd nTpnsLDuAyIen5mmFYGj LBmjLA9erAddK6GviFC1 HZRbb5m4Wd37Q85pL9Sk dXA+ZFLnePL6mUB8 xR4iJuAjXgI6BZpoL198 SsZowFQiFrzwy4czb3au vDx4VrG7IMUoehJocGxw OCP5c5OeCl47L18n IHdpZHRoPSIxNSUiIHZh nYpgsh2dvB9fLv3+PGNv nXO0xLP2pZ4nJwLwNdV2 FDcjQ607QjRvmKVy Ssqyv1kzn7qawCl6SbVn KCGepdJpqSruUTF0p2Rk Uj53N8XljVcbn5VyShg3 xk34qLHej0Y9bIX8 E6KrUFKdagthuPBabHsm YU9vOHHejiogOOBpkQ6o ZYMlZ7g7NjYaIvV4PNeb Q9ApiqZ9RJWbrOZu IIJjqTJUfC7jwntqi8js kyxoNvBoIPQtZTq6YCo2 DPDhkPrnRmYkSDY6FcB4 BDW2mNKwnX2qgKdk bfrqtL7pLyo+BDT1jEIu wDFCMD3uSwawqDD+PHRk MEJ3qWdfWGnsTQIaaF6x VTXgV7k6MsCaWwA1 QSidK5TdynB8ZPPtaWOo UQAqbWAQhF3makyhc2yq kqnqXqPjGJNnUMw6ZHi5 LWFsaWduOiBsZWZ0 NnN2DCS4pFKisN3vhFpd qvhtsX6fUco+QmlydGgg SLZ7NEt3L5YmBrq9PDHm xEkbAW2dtXOaAYty Zo8hpVyrmJylSA2aWOXe mcipo835ShAly9cgGMZh vOQsPTacRYP2Z56sg3I9 WDDyQPNlART6qDE8 yM3htRseofzjiDDeoQha xrWkeKskAKkdOPifQ441 MVSzkNulHlLhYHp1J3Fx Gkm6BAQnhUtxZV7l aJWaGXphPf8xkVnxaQbp IL5uUDOhbzbwn385GbAu q4prTSNljHSzFYkbWRM8 J59bt8V8MPKpJGXb BVO0kMD0nJ2huUqsvhsj bGVmdDsgdmVydGljYWwt VDxeX471TJWovLtaCkXs iQu0K7QrNmh3WOAm hAjyWV8szFOaOKsdMz1w jLolcFduKN5pBZDmkdjt i450HwMhs3gcJNUtyCLk CVksZXU2O89bq5J8 PRZsIROrKFG2gXI7xY6f bGlnbjogbGVmdDsgdmVy hZzpYIirMXzlM945IPUq cDsnPlBhdGllbnQg ACpoWIc3X8XsDjltjHH+ CG55FDEiBM62vQTfyNCx d5befZj0EnUzPVClVDF8 mSdiXSlwz5CeQEZe B64stICmh0Z3RJMshZil mDIxYqPggYW2eO1cTJur xkadb2buatovTwefy4bf ix23iU97K93gTBsh ZHRoPSIzMCUiIHZhbGln qp1ptO4pVe2+PGNvbCB3 cJE2zB3iKBInSnA9JLnf R971NiBhpOGyIzop m6ksz3ablUv0NlX7OSUx xdJxiNmvWUT5s9DzTe61 T33oRYznLGWoFLBmNQUk WSGdtDzaor6tbP2l Ii8+GTKnpKT5zSW4rS0h JlQiKwV4RLpyO845EoTq wQAbWlckK82mO8FqgCO+ LUSbBim9IIXyaXtq TK9yqBJlORdfBj0iGRM5 GjZrCgRvAXgnV4KbTGUw axyuyfvukXH2VNTyQHTx qV27Tf1lhRazCDHl uLHZsI6nfwoqr9hvqoqo AbIqZWWmOVt6HFf8RHNa oVzaUuPcJPK5IwU8PFX0 bGOtkA2doDradsjx oC6eM0KnJZRkwnqpKy37 pW7mPhEyOkW2EGxmKon+ Q2VNSY9YNAYSY644X4Ug Yyh2YLGniHcjAD2q hJMwSIaiBv2hvCiexYpl AZ2bIAUmxpeoEMHcuP5r TRIvzEVwxFroSD1rEKEo cbvmp210JrCqTCB5 NZIocPKuQ8DvuM6nZmRd CWGgOZNjM3PvbMUfCSkh Z553NQazEuZ9SMQtyfXt J0QdNVCezGegGnS6 e6C1Cg6pSE4uZJ2uTPBy TH90FU11zPFof1O5qZJ5 O8LcBIEdbubyzwtulDP4 XDIgYTYbtZ35gTRa MOfxUk0ao9P1x272GIKc RTGxfR79Bh6mxEkhDSPo hQQAwN4zwbgxy8xiixdy UuTdXMFkYRt7WZs7 FOKqzLljKlHbGWF9HvV5 NYF7nCTpdQ4iiIguswaa zE8xFym+ODEgWWVhcnM8 G1XnTrk1MPCunWzr JH2vcLCsBQptXw7hhYsf zZffJD0oGTRcvqqyPJPd nB0yOIXvyGGqrCfbSG6m FMLooclkh666VzLs HGH7WROsfDTmU2DjfV6a EkLvDARiGSSbN6UklRFu RIltA061AKpgBmS7NAMf tqVcR8WhEVQgsDil RjD0u9I6Ai7RUEnvOW23 TF03gISdc7R6iPH7Y8Uu GJAdfjdeqznpuHO9RWFk UMQlfK34bLBdAVzb Hl6od6J5c044DJQmBGAl sO31Go6jiIamXBPbvBLP rL2rilrlo1albynnDiRe ZJMzUFg0IQk2CPCd iAqnJwYwJQQ8BhW4KBA8 cRXgwN8vhMlgsvemyY2e Oyc+SOZoFRKpo3Hpt3Ul RD07IH77X9MuTwdq dGFibGU+PHRhYmxlIHdp ZHRoPScxMDAlJyBzdHls QZ4uEv4tANXuGESprFff tLApZbTia6wbVDWr CGsqNI4cgWjeD9NhsAG3 JKDbd6n6Yj06X32eR4Ba dXA+EHAskWF6tEX5tB9d XqMuYaL4RByvS848 XrLcyQViSevvx7lkp1ei mQj7LxTwVSXbruWpgDpg SAK9h5GbQw11U08pAPmx ZHRoPSIyMCUiIHZh pMoccn8qdY5zKp1+PGNv bEC7xOY2eE7jMwTbUlL3 XConE309UmLypQOsCzmy E10sL0ZbaUL+PHRy Liy5XGAbwEwoPS8stVVk UDyuCb8sDGQ3KgNmBzMq VNjhR5MpAKHebjgosbgm pHS8PQJiYYIrxI16 Wj4noDpfPs6lSDHrFHA7 JTUyeAToM3KnwG0kOaYx INBvZEJrO3DseBPtLEli E448DAsdRlJ2GQKv plXgW1VxAURbfWmsBhS1 f6B9Fp7BeLnigFMkHD8o PzYnSAp2T9QjWgo1IWXx zCovKT4kuVFhWNxq Oc9fvNxzaApdZZ5hIVBv dqixy547WkQpm3mxOLLj jFFaSPqyLUX1V02fk5J1 HCObIXRyDTT7nRF5 wB4ffUcrtxsznTBbrPlo spWodCzyLYwzGKonJ263 GAGopMxoNwFVQtw0F7Rn Rhh5DWLdxXbuGO5n nEJuLVkrCk0ufDzniByv GO2hOGTihaihx151GlCi g6laIRQsgPOpOVxkZXN4 B23pt3X8VCFrRCWy VPN9gNI5cE8inFfwvhrv bGVmdDsgdmVydGljYWwt THdzC387HWVikPilRx3P Iob1Y3WnLvr2UBLf oWsvAC7usQWnTYyoRz1q oFwlqDjvAK0oPGKjyuqt k406HlMsc6rlCKSomDPj PNioUNA5R21gb9D9 THCrJCHgWUM8lAU7iN3e bGlnbjogbGVmdDsgdmVy eSpeFYsiUCpzV401PWQl cDsnPlBheWVyOjwv dGQ+RC92fk38Q0DpGazj Atz4PRAdMHD6mVV0fC9v LQHiRWwnw1K9cFR7T3Ve rrFhsa7nw8mmSIYb [id number] (more content not included)... Normal [facility] C Urineon 02-13-2024 Bacteria identified Cx Nom (U) Microbiology PROCEDURE: Urine Culture [R1] SOURCE: U Random BODY SITE: COLLECTED DATE/TIME: 02/11/2024 10:06 EDT RECEIVED DATE/TIME: 02/11/2024 18:24 EDT START DATE/TIME: 02/11/2024 18:24 EDT FREE TEXT SOURCE: Zoie ISSAN, RECRUITMENT MANAGER-C, Zoie ISSAN, RECRUITMENT MANAGER-C, Lazara X Lazara X FINAL REPORTS Final [...] Locations R1: This test was performed at: [facility], [address] [place] [address], [phone] , [place], Normal [facility] Comment on above: Performed By: #### 2 [id number] #### [facility] [address] [place] [id number] Screenson 02-12-2024 Screens [id number] 7#[id number] Normal [facility] Ambulatory Visit Summaryon 0 02-11-2024 Ambulatory [...] Urology [address], [place] [address] [id number] Medications What How Much When Instructions Unchanged [...] concerns Unchanged timolol ophthalmic (timolol Opth 0.5% Yevtte 5 mL) Contact prescribing physician if questions [...] choosing us for your care. Catrachita Nuñez [facility] Patient Educationon 02-11-20 Patient Education [...] these instructions at home: Medicines ? Take nkar-vap-vbozpgs and prescription medicines only as told by [...] the blood stops without treatment. ? Take aupa-kob-cmtspuy and prescription medicines only as told by your health care provider. ? Drink enough fluid to keep your urine pale yellow. This information is not intended to replace advice given to you by your health care provider. Make sure you discuss any questions you have with your health care provider. Document Revised: 04/12/2021 Document Reviewed: 04/12/2021 [employer] Patient Education ? 2022 [employer]. Benign Prostatic Hyperplasia Benign prostatic hyperplasia (BPH) [...] the nig (more content not included)... Normal [facility] Urology Office/Clinic Noteon 02-11-2024 Urology Office/Clinic [...] with voice recognition artificial intelligence software, specifically [employer], [employer] and or [employer]. Substitutions may have occurred due to the [...] Urnls Dip Stick Auto w/o Microscopy POC 87664 2. 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 [2] Follow-up With When Contact Information Zoie FOX, KIM, Lazara Echavarria, PARVIN, URL Additional Instructions: 1 year JAYDON COE, Reno Maciel, URL [facility] [address], [place] [phone] Additional Instructions: Patient Education Hematuria, Adult Benign [...] Rhopressa 0.02% (more content not included)... Normal [facility] Comment on above: Result Comment: Elec tronically Signed By: KIM Lino APRN, Lazara Echavarria\.br\Date and Time Signed: 02/11/24 10:41 EDT COVID/FLU RT-PCRon SARS-CoV-2 (COVID-19) RNA TERRIE+probe Ql (Unsp spec) Positive [employer] Other COVID/FLU RT-PCR Negative [employer] Other XR KNEE RT 3Von 01-23-2023 XR KNEE RT 3V EXAM: XR KNEE RT 3V HISTORY: Osteoarthritis of knee COMPARISON: None TECHNIQUE: 3 views FINDINGS: No acute fracture or dislocation. Moderate to severe degenerative changes. Unremarkable soft tissues. IMPRESSION: Moderate to severe degenerative changes. Electronically authenticated by: CALVIN BARNES Date: 2023-01-23 13:29 Normal [facility] INSULINon 09-25-2022 Insulin 6.0 uIU/mL Normal 2.6-24.9 [facility] Comment on above: Performed By: #### I NSULIN #### [facility] [address] [place] [address] Dr. Wally Zapien BNPon 09-24-2022 Natriuretic peptide B (Bld) [Mass/Vol] 110.0 pg/mL Normal <=1,800.0 [facility] Comment on above: Performed By: #### U RCX #### [facility] [address] [place] [address] Dr. Wally Zapien CBC AUTO DIFFon 09-24-2022 BASO # 0.0 103/ul Normal 0.0-0.1 [facility] Comment on above: Performed By: #### C BC #### [facility] [address] [place] [address] Dr. Wally Zapien Basophils/100 WBC (Bld) 1.0 % Normal 0.2-2.0 [facility] Comment on above: Performed By: #### C BC #### [facility] [address] [place] [address] Dr. Wally Zapien EO # 0.2 103/ul Normal 0.0-0.7 [facility] Comment on above: Performed By: #### C BC #### [facility] [address] [place] [address] Dr. Wally Zapien Eosinophils/100 WBC (Bld) 4.2 % Normal 0.9-7.0 [facility] Comment on above: Performed By: #### C BC #### [facility] [address] [place] [address] Dr. Wally Zapien Erythrocyte distribution width (RBC) [Ratio] 12.5 % Normal 11.0-15.0 [facility] Comment on above: Performed By: #### C BC #### [facility] [address] [place] [address] Dr. Wally Zapien Hematocrit (Bld) [Volume fraction] 43.7 % Normal 42.0-54.0 [facility] Comment on above: Performed By: #### C BC #### [facility] [address] [place] [address] Dr. Wally Zapien Hemoglobin (Bld) [Mass/Vol] 15.4 g/dL Normal 14.0-18.0 [facility] Comment on above: Performed By: #### C BC #### [facility] [address] [place] [address] Dr. Wally Zapien IG # 0.02 10e3/ul Normal 0.00-0.03 [facility] Comment on above: Performed By: #### C BC #### [facility] [address] [place] [address] Dr. Wally Zapien IG % 0.5 % Normal 0.0-0.5 [facility] Comment on above: Performed By: #### C BC #### [facility] [address] [place] [address] Dr. Wally Zapien LYMPH # 1.7 103/ul Normal 1.2-3.8 [facility] Comment on above: Performed By: #### C BC #### [facility] [address] [place] [address] Dr. Wally Zapien Lymphocytes/100 WBC (Bld) 42.6 % Normal 20.5-60.0 [facility] Comment on above: Performed By: #### C BC #### [facility] [address] [place] [address] Dr. Wally Zapien MANUAL DIFF REQ NO Normal [facility] Comment on above: Performed By: #### C BC #### [facility] [address] [place] [address] Dr. Wally Zapien MCH (RBC) [Entitic mass] 31.6 pg Normal 25.9-34.0 [facility] Comment on above: Performed By: #### C BC #### [facility] [address] [place] [address] Dr. Wally Zapien MCHC (RBC) [Mass/Vol] 35.2 g/dL Normal 29.9-35.2 [facility] Comment on above: Performed By: #### C BC #### [facility] [address] [place] [address] Dr. Wally Zapien MCV (RBC) [Entitic vol] 89.5 fL Normal 80.0-94.0 [facility] Comment on above: Performed By: #### C BC #### [facility] [address] [place] [address] Dr. Wally Zapien MONO # 0.4 103/ul Normal 0.3-0.8 [facility] Comment on above: Performed By: #### C BC #### [facility] [address] [place] [address] Dr. Wally Zapien Monocytes/100 WBC (Bld) 9.2 % Normal 1.7-12.0 [facility] Comment on above: Performed By: #### C BC #### [facility] [address] [place] [address] Dr. Wally Zapien NEUT # 1.7 103/ul Normal 1.4-6.5 [facility] Comment on above: Performed By: #### C BC #### [facility] [address] [place] [address] Dr. Wally Zapien Neutrophils/100 WBC (Bld) 42.5 % Critically low 43.0-75.0 [facility] Comment on above: Performed By: #### C BC #### [facility] [address] [place] [address] Dr. Wally Zapien Platelet mean volume (Bld) [Entitic vol] 9.9 fL Normal 9.5-13.5 [facility] Comment on above: Performed By: #### C BC #### [facility] [address] [place] [address] Dr. Wally Zapien PLT 149 103/ul Critically low 150-450 [facility] Comment on above: Performed By: #### C BC #### [facility] [address] [place] [address] Dr. Wally Zapien RBC 4.88 106/ul Normal 4.70-6.10 [facility] Comment on above: Performed By: #### C BC #### [facility] [address] [place] [address] Dr. Wally Zapien WBC 4.0 103/ul Normal 4.0-11.0 [facility] Comment on above: Performed By: #### C BC #### [facility] [address] [place] [address] Dr. Wally Zapien CULTURE URINEon 09-24-2022 CULTURE URINE Culture Observations: LIGHT GROWTH OF MIXED SKIN GENNA. NO POTENTIAL PATHOGENS SEEN. Normal [facility] Comment on above: Performed By: #### U RCX #### [facility] [address] [address] [address] Wally Zapien FREE THYROXINE INDEX T7on FTI 2.52 Normal 1.30-4.50 [facility] Comment on above: Performed By: #### U RCX #### [facility] [address] [place] [address] Dr. Wally Zapien T3U 36.0 % Normal 33.0-40.0 [facility] Comment on above: Performed By: #### U RCX #### [facility] [address] [place] [address] Dr. Wally Zapien T4 [Mass/Vol] 7.00 ug/dL Normal 4.50-12.10 [facility] Comment on above: Performed By: #### U RCX #### [facility] [address] [place] [address] Dr. Wally Zapien GLYCOHEMOGLOBIN A1Con 2022 ADA RECOMMENDATION SEE BELOW Normal [facility] Comment on above: Result Comment: ADA RECOMMENDED LIMIT 4.0 - 6.0 ADA THERAPEUTIC TARGET < 7.0 ACTION SUGGESTED > 7.0 Performed By: #### A 1C #### [facility] [address] [place] [address] Dr. Wally Zapien Glucose [Mass/Vol] 123 mg/dL Normal [facility] Comment on above: Performed By: #### A 1C #### [facility] [address] [place] [address] Dr. Wally Zapien HbA1c (Bld) [Mass fraction] 5.9 % Normal 4.5-6.2 [facility] Comment on above: Performed By: #### A 1C #### [facility] [address] [place] [address] Dr. Wally Zapien LIPID PROFILEon 09-24-2022 CHOL-HDL RATIO NORM SEE BELOW Normal [facility] Comment on above: Result Comment: 3.3 - 4.4 LOW RISK 4.4 - 7.1 AVERAGE RISK 7.1 - 11.0 MODERATE RISK >11.0 HIGH RISK Performed By: #### U RCX #### [facility] [address] [address] [address] Wlaly Zapien Cholesterol [Mass/Vol] 117 mg/dL Normal <=200 [facility] Comment on above: Performed By: #### U RCX #### [facility] [address] [address] [address] Wally Zapien Cholesterol in HDL [Mass/Vol] 38 mg/dL Critically low 40-60 [facility] Comment on above: Performed By: #### U RCX #### [facility] [address] [address] [address] Wally Zapien Cholesterol in LDL [Mass/Vol] 32.6 mg/dL Normal [facility] Comment on above: Performed By: #### U RCX #### [facility] [address] [address] [address] Wally Zapien Cholesterol.total/Ch olesterol in HDL [Mass ratio] 3.1 {ratio} Normal [facility] Comment on above: Performed By: #### U RCX #### [facility] [address] [address] [address] Wally Zapien HDL NORMAL > or = 60 mg/dl - LOW CARDIOVASCULAR RISK <40 mg/dl - HIGH CARDIOVASCULAR RISK Normal [facility] Comment on above: Performed By: #### U RCX #### [facility] [address] [address] [address] Wally Zapien LDL CALC NORMAL SEE BELOW Normal [facility] Comment on above: Result Comment: <100 mg/dl OPTIMAL 100 - 129 mg/dl NEAR OR ABOVE OPTIMAL 130 - 159 mg/dl BORDERLINE HIGH 160 - 189 mg/dl HIGH >190 mg/dl VERY HIGH Performed By: #### U RCX #### [facility] [address] [address] [address] Wally Zapien Triglyceride [Mass/Vol] 232 mg/dL Critically high <=150 [facility] Comment on above: Performed By: #### U RCX #### [facility] [address] [address] [address] Wally Zapien VLDL CALC 46.4 mg/dL Normal [facility] Comment on above: Performed By: #### U RCX #### [facility] [address] [place] [address] Dr. Wally Zapien PROF 14(COMP METB)on 023 Albumin [Mass/Vol] 3.8 g/dL Normal 3.4-5.0 [facility] Comment on above: Performed By: #### B ENVIRONMENTAL CONTROL ADMINISTRATOR, T7, LIPID, TSH, CMP, URIC #### [facility] [address] [place] [address] Dr. Wally Zapien Albumin/Globulin [Mass ratio] 1.2 {ratio} Normal [facility] Comment on above: Performed By: #### B ENVIRONMENTAL CONTROL ADMINISTRATOR, T7, LIPID, TSH, CMP, URIC #### [facility] [address] [place] [address] Dr. Walyl Zapien ALP [Catalytic activity/Vol] 80 U/L Normal 46-116 [facility] Comment on above: Performed By: #### B ENVIRONMENTAL CONTROL ADMINISTRATOR, T7, LIPID, TSH, CMP, URIC #### [facility] [address] [place] [address] Dr. Wally Zapien ALT [Catalytic activity/Vol] 34 U/L Normal 16-63 [facility] Comment on above: Performed By: #### B ENVIRONMENTAL CONTROL ADMINISTRATOR, T7, LIPID, TSH, CMP, URIC #### [facility] [address] [place] [address] Dr. Wally Zapien Anion gap [Moles/Vol] 11.3 mmol/L Normal [facility] Comment on above: Performed By: #### B ENVIRONMENTAL CONTROL ADMINISTRATOR, T7, LIPID, TSH, CMP, URIC #### [facility] [address] [place] [address] Dr. Wally Zapien AST [Catalytic activity/Vol] 24 U/L Normal 15-37 [facility] Comment on above: Performed By: #### B ENVIRONMENTAL CONTROL ADMINISTRATOR, T7, LIPID, TSH, CMP, URIC #### [facility] [address] [address] [address] Wally Zapien Bilirubin [Mass/Vol] 1.0 mg/dL Normal 0.2-1.0 [facility] Comment on above: Performed By: #### B ENVIRONMENTAL CONTROL ADMINISTRATOR, T7, LIPID, TSH, CMP, URIC #### [facility] [address] [place] [address] Dr. Wally Zapien Calcium [Mass/Vol] 8.5 mg/dL Normal 8.5-10.1 [facility] Comment on above: Performed By: #### B ENVIRONMENTAL CONTROL ADMINISTRATOR, T7, LIPID, TSH, CMP, URIC #### [facility] [address] [place] [address] Dr. Wally Zapien Chloride [Moles/Vol] 105 mmol/L Normal 98-107 [facility] Comment on above: Performed By: #### B ENVIRONMENTAL CONTROL ADMINISTRATOR, T7, LIPID, TSH, CMP, URIC #### [facility] [address] [place] [address] Dr. Wally Zapien CO2 [Moles/Vol] 28.6 mmol/L Normal 21.0-32.0 [facility] Comment on above: Performed By: #### B ENVIRONMENTAL CONTROL ADMINISTRATOR, T7, LIPID, TSH, CMP, URIC #### [facility] [address] [place] [address] Dr. Wally Zapien Creatinine [Mass/Vol] 0.74 mg/dL Normal 0.70-1.30 [facility] Comment on above: Performed By: #### B ENVIRONMENTAL CONTROL ADMINISTRATOR, T7, LIPID, TSH, CMP, URIC #### [facility] [address] [place] [address] Dr. Wally Zapien EGFR-AF MARSHALLESE >60 Normal >=60 [facility] Comment on above: Performed By: #### B ENVIRONMENTAL CONTROL ADMINISTRATOR, T7, LIPID, TSH, CMP, URIC #### [facility] [address] [place] [address] Dr. Wally Zapien EGFR-NON AF MARSHALLESE >60 Normal >=60 [facility] Comment on above: Performed By: #### B ENVIRONMENTAL CONTROL ADMINISTRATOR, T7, LIPID, TSH, CMP, URIC #### [facility] [address] [place] [address] Dr. Wally Zapien Globulin (S) [Mass/Vol] 3.2 g/dL Normal [facility] Comment on above: Performed By: #### B ENVIRONMENTAL CONTROL ADMINISTRATOR, T7, LIPID, TSH, CMP, URIC #### [facility] [address] [address] [address] Wally Zapien Glucose [Mass/Vol] 102 mg/dL Normal 74-106 [facility] Comment on above: Performed By: #### B ENVIRONMENTAL CONTROL ADMINISTRATOR, T7, LIPID, TSH, CMP, URIC #### [facility] [address] [address] [address] Wally Zapien Potassium [Moles/Vol] 3.9 mmol/L Normal 3.5-5.1 [facility] Comment on above: Performed By: #### B ENVIRONMENTAL CONTROL ADMINISTRATOR, T7, LIPID, TSH, CMP, URIC #### [facility] [address] [place] [address] Dr. Wally Zapien Protein [Mass/Vol] 7.0 g/dL Normal 6.4-8.2 [facility] Comment on above: Performed By: #### B ENVIRONMENTAL CONTROL ADMINISTRATOR, T7, LIPID, TSH, CMP, URIC #### [facility] [address] [place] [address] Dr. Wally Zapien Sodium [Moles/Vol] 141 mmol/L Normal 136-145 [facility] Comment on above: Performed By: #### B ENVIRONMENTAL CONTROL ADMINISTRATOR, T7, LIPID, TSH, CMP, URIC #### [facility] [address] [place] [address] Dr. Wally Zapien Urea nitrogen [Mass/Vol] 19.0 mg/dL Critically high 7.0-18.0 [facility] Comment on above: Performed By: #### B ENVIRONMENTAL CONTROL ADMINISTRATOR, T7, LIPID, TSH, CMP, URIC #### [facility] [address] [address] [address] Wally Zapien Urea nitrogen/Creatinine [Mass ratio] 25.7 mg/mg Normal [facility] Comment on above: Performed By: #### B ENVIRONMENTAL CONTROL ADMINISTRATOR, T7, LIPID, TSH, CMP, URIC #### [facility] [address] [place] [address] Dr. Wally Zapien TSHon 09-24-2022 TSH 1.535 uIU/mL Normal 0.358-3.740 The [facility] Comment on above: Performed By: #### U RCX #### [facility] [address] [address] [address] Wally Zapien UA RANDOM W/MICROSCOPICon BACTERIA NONE SEEN Normal NONE SEEN [facility] Comment on above: Performed By: #### U RCX #### [facility] [address] [address] [address] Wally Zapien Bilirubin Ql (U) Negative Normal NEGATIVE [facility] Comment on above: Performed By: #### U RCX #### [facility] [address] [place] [address] Dr. Wally Zapien CAST NONE SEEN Normal NONE SEEN [facility] Comment on above: Performed By: #### U RCX #### [facility] [address] [place] [address] Dr. Wally Zapien Clarity (U) CLEAR Normal CLEAR [facility] Comment on above: Performed By: #### U RCX #### [facility] [address] [place] [address] Dr. Wally Zapien Color (U) YELLOW Normal YELLOW [facility] Comment on above: Performed By: #### U RCX #### [facility] [address] [address] [address] Wally Zapien Crystals LM Nom (Urine sed) NONE SEEN Normal NONE SEEN [facility] Comment on above: Performed By: #### U RCX #### [facility] [address] [place] [address] Dr. Wally Zapien Epithelial cells LM Ql (Urine sed) FEW Abnormal NONE SEEN /RARE [facility] Comment on above: Performed By: #### U RCX #### [facility] [address] [place] [address] [address] Wally Zapien Glucose Ql (U) Negative Normal NEGATIVE [facility] Comment on above: Performed By: #### U RCX #### [facility] [address] [place] [address] Dr. Wally Zapien Hemoglobin Ql (U) TRACE-INTACT Abnormal NEGATIVE [facility] Comment on above: Performed By: #### U RCX #### [facility] [address] [place] [address] [address] Wally Zapien Ketones Ql (U) Negative Normal NEGATIVE [facility] Comment on above: Performed By: #### U RCX #### [facility] [address] [place] [address] [address] Wally Zapien LEUKOCYTES Negative Normal NEGATIVE [facility] Comment on above: Performed By: #### U RCX #### [facility] [address] [place] [address] [address] Wally Zapien MUCOUS LARGE Abnormal NONE SEEN [facility] Comment on above: Performed By: #### U RCX #### [facility] [address] [place] [address] Dr. Wally Zapien Nitrite Ql (U) Negative Normal NEGATIVE [facility] Comment on above: Performed By: #### U RCX #### [facility] [address] [place] [address] Dr. Wally Zapien pH (U) 6.5 [pH] Normal 5-9 [facility] Comment on above: Performed By: #### U RCX #### [facility] [address] [place] [address] [address] Wally Zapien RBC 2-5 Abnormal 0-2 [facility] Comment on above: Performed By: #### U RCX #### [facility] [address] [place] [address] Dr. Wally Zapien SPEC GRAVITY 1.025 Normal 1.005-<=1.025 [facility] Comment on above: Performed By: #### U RCX #### [facility] [address] [place] [address] Dr. Wally Zapien UA PROTEIN TRACE Normal NEGATIVE/ TRACE [facility] Comment on above: Performed By: #### U RCX #### [facility] [address] [place] [address] Dr. Wally Zapien Urobilinogen Qn (U) 1.0 {Suma'U}/dL Normal 0.2 - 1. 0 [facility] Comment on above: Performed By: #### U RCX #### [facility] [address] [place] [address] Dr. Wally Zapien WBC 0-2 Abnormal NONE SEEN [facility] Comment on above: Performed By: #### U RCX #### [facility] [address] [place] [address] Dr. Wally Zapien URIC ACID SERUMon 09-24-2022 Urate [Mass/Vol] 3.7 mg/dL Normal 3.5-7.2 [facility] Comment on above: Performed By: #### B ENVIRONMENTAL CONTROL ADMINISTRATOR, T7, LIPID, TSH, CMP, URIC #### [facility] [address] [place] [address] Dr. Wally Zapien VITAMIN D 25 OHon 09-24-2022 VIT D 25-OH 42.6 ng/mL Normal [facility] Comment on above: Performed By: #### U RCX #### [facility] [address] [place] [address] Dr. Wally Zapien VIT D RANGES SEE BELOW Normal [facility] Comment on above: Result Comment: <20 ng/mL Vit D deficient 20 - <30 ng/mL Vit D insufficient 30 - 100 ng/mL Vit D sufficient >100 ng/mL Potential Toxicity Performed By: #### U RCX #### [facility] [address] [place] [address] Dr. Wally Zapien CBC AUTO DIFFon 09-18-2022 BASO # 0.0 103/ul Normal 0.0-0.1 [facility] Comment on above: Performed By: #### C BC #### [facility] [address] [place] [address] Dr. Wally Zapien Basophils/100 WBC (Bld) 0.7 % Normal 0.2-2.0 [facility] Comment on above: Performed By: #### C BC #### [facility] [address] [place] [address] Dr. Wally Zapien EO # 0.1 103/ul Normal 0.0-0.7 [facility] Comment on above: Performed By: #### C BC #### [facility] [address] [place] [address] Dr. Wally Zapien Eosinophils/100 WBC (Bld) 2.8 % Normal 0.9-7.0 [facility] Comment on above: Performed By: #### C BC #### [facility] [address] [place] [address] Dr. Wally Zapien Erythrocyte distribution width (RBC) [Ratio] 12.7 % Normal 11.0-15.0 [facility] Comment on above: Performed By: #### C BC #### [facility] [address] [place] [address] Dr. Wally Zapien Hematocrit (Bld) [Volume fraction] 44.1 % Normal 42.0-54.0 [facility] Comment on above: Performed By: #### C BC #### [facility] [address] [place] [address] Dr. Wally Zapien Hemoglobin (Bld) [Mass/Vol] 15.3 g/dL Normal 14.0-18.0 [facility] Comment on above: Performed By: #### C BC #### [facility] [address] [place] [address] Dr. Wally Zapien IG # 0.01 10e3/ul Normal 0.00-0.03 [facility] Comment on above: Performed By: #### C BC #### [facility] [address] [place] [address] Dr. Wally Zapien IG % 0.2 % Normal 0.0-0.5 [facility] Comment on above: Performed By: #### C BC #### [facility] [address] [place] [address] Dr. Wally Zapien LYMPH # 1.8 103/ul Normal 1.2-3.8 [facility] Comment on above: Performed By: #### C BC #### [facility] [address] [place] [address] Dr. Wally Zapien Lymphocytes/100 WBC (Bld) 43.0 % Normal 20.5-60.0 [facility] Comment on above: Performed By: #### C BC #### [facility] [address] [place] [address] Dr. Wally Zapien MANUAL DIFF REQ NO Normal [facility] Comment on above: Performed By: #### C BC #### [facility] [address] [place] [address] Dr. Wally Zapien MCH (RBC) [Entitic mass] 32.1 pg Normal 25.9-34.0 [facility] Comment on above: Performed By: #### C BC #### [facility] [address] [place] [address] Dr. Wally Zapien MCHC (RBC) [Mass/Vol] 34.7 g/dL Normal 29.9-35.2 [facility] Comment on above: Performed By: #### C BC #### [facility] [address] [place] [address] Dr. Wally Zapien MCV (RBC) [Entitic vol] 92.5 fL Normal 80.0-94.0 [facility] Comment on above: Performed By: #### C BC #### [facility] [address] [place] [address] Dr. Wally Zapien MONO # 0.4 103/ul Normal 0.3-0.8 [facility] Comment on above: Performed By: #### C BC #### [facility] [address] [place] [address] Dr. Wally Zapien Monocytes/100 WBC (Bld) 9.2 % Normal 1.7-12.0 [facility] Comment on above: Performed By: #### C BC #### [facility] [address] [place] [address] Dr. Wally Zapien NEUT # 1.9 103/ul Normal 1.4-6.5 [facility] Comment on above: Performed By: #### C BC #### [facility] [address] [place] [address] Dr. Wally Zapien Neutrophils/100 WBC (Bld) 44.1 % Normal 43.0-75.0 [facility] Comment on above: Performed By: #### C BC #### [facility] [address] [place] [address] Dr. Wally Zapien Platelet mean volume (Bld) [Entitic vol] 10.4 fL Normal 9.5-13.5 [facility] Comment on above: Performed By: #### C BC #### [facility] [address] [place], [place] [address] Dr. Wally Zapien PLT 152 103/ul Normal 150-450 [facility] Comment on above: Performed By: #### C BC #### [facility] [address] [place] [address] [address] Wally Zapien RBC 4.77 106/ul Normal 4.70-6.10 [facility] Comment on above: Performed By: #### C BC #### [facility] [address] [place] [id number] Wally Zapien WBC 4.2 103/ul Normal 4.0-11.0 [facility] Comment on above: Performed By: #### C BC #### [facility] [address] [place] [address] [address] ABD/PELVIS WO CONon [...] mesh repair. 4. Cardiomegaly. Electronically authenticated by: MAYRAYue ISBELLCHINA Date: 2022-09-18 13:40 Normal [facility] ER URINE PROFILEon 3 Bilirubin Ql (U) SMALL Abnormal NEGATIVE [facility] Comment on above: Performed By: #### KERRI PADRON #### [facility] [address] [place] [address] Dr. Wally Zapien Clarity (U) SL CLOUDY Abnormal CLEAR [facility] Comment on above: Performed By: #### BIMAL PADRONRO #### [facility] [address] [place] [address] Dr. Wally Zapien Color (U) RED Abnormal YELLOW [facility] Comment on above: Performed By: #### KERRI PADRON #### [facility] [address] [place] [address] Dr. Wally GERBER A micrscopic examination will be performed if indicated. Normal [facility] Comment on above: Performed By: #### KERRI PADRON #### [facility] [address] [place] [address] Dr. Wally Zapien Glucose Ql (U) Negative Normal NEGATIVE [facility] Comment on above: Performed By: #### BIMAL PADRONRO #### [facility] [address] [place] [address] [address] Wally Zapien Hemoglobin Ql (U) LARGE Abnormal NEGATIVE [facility] Comment on above: Performed By: #### BIMAL PADRONRO #### [facility] [address] [place] [address] Dr. Wally Zapien Ketones Ql (U) TRACE Abnormal NEGATIVE [facility] Comment on above: Performed By: #### MANSOOR PADRONICRO #### [facility] [address] [place] [address] Dr. Wally Zapien LEUKOCYTES TRACE Abnormal NEGATIVE [facility] Comment on above: Performed By: #### Olinda WILLIS UMICRO #### [facility] [address] [place] [address] Dr. Wally Zapien Nitrite Ql (U) Positive Abnormal NEGATIVE [facility] Comment on above: Performed By: #### Olinda WILLIS UMICRO #### [facility] [address] [place] [address] Dr. Wally Zapien pH (U) 5.5 [pH] Normal 5-9 [facility] Comment on above: Performed By: #### Olinda WILLIS VIANCARO #### [facility] [address] [place] [address] Dr. Wally Zapien Protein (U) [Mass/Vol] 100 mg/dL Abnormal NEGATIVE/ TRACE [facility] Comment on above: Performed By: #### Olinda WILLIS ICRO #### [facility] [address] [place] [address] Dr. Wally Zapien SPEC GRAVITY 1.025 Normal 1.005-<=1.025 [facility] Comment on above: Performed By: #### Olinda WILLIS ICRO #### [facility] [address] [place] [address] Dr. Wally Zapien UR MICRO IND INDICATED Normal [facility] Comment on above: Performed By: #### BIMAL PADRONRO #### [facility] [address] [place] [address] Dr. Wally Zapien Urobilinogen Qn (U) 1.0 {Suma'U}/dL Normal 0.2 - 1. 0 [facility] Comment on above: Performed By: #### Olinda WILLIS UMICRO #### [facility] [address] [place] [address] Dr. Wally Zapien PROF CHEM 8 (BAS METB)on Anion gap [Moles/Vol] 10.5 mmol/L Normal [facility] Comment on above: Performed By: #### U RCX #### [facility] [address] [place] [address] [address] Wally Zapien Calcium [Mass/Vol] 8.6 mg/dL Normal 8.5-10.1 [facility] Comment on above: Performed By: #### U RCX #### [facility] [address] [place] [address] [address] Wally Zapien Chloride [Moles/Vol] 105 mmol/L Normal 98-107 [facility] Comment on above: Performed By: #### U RCX #### [facility] [address] [place] [address] [address] Wally Zapien CO2 [Moles/Vol] 28.8 mmol/L Normal 21.0-32.0 [facility] Comment on above: Performed By: #### U RCX #### [facility] [address] [place] [address] [address] Wally Zapien Creatinine [Mass/Vol] 0.85 mg/dL Normal 0.70-1.30 [facility] Comment on above: Performed By: #### U RCX #### [facility] [address] [place] [address] [address] Wally Zapien EGFR-AF MARSHALLESE >60 Normal >=60 [facility] Comment on above: Performed By: #### U RCX #### [facility] [address] [place] [address] [address] Wally Zapien EGFR-NON AF MARSHALLESE >60 Normal >=60 [facility] Comment on above: Performed By: #### U RCX #### [facility] [address] [place] [address] [address] Wally Zapien Glucose [Mass/Vol] 112 mg/dL Critically high 74-106 [facility] Comment on above: Performed By: #### U RCX #### [facility] [address] [place] [address] [address] Wally Zapien Potassium [Moles/Vol] 4.3 mmol/L Normal 3.5-5.1 [facility] Comment on above: Performed By: #### U RCX #### [facility] [address] [place] [address] [address] Wally Zapien Sodium [Moles/Vol] 140 mmol/L Normal 136-145 [facility] Comment on above: Performed By: #### U RCX #### [facility] [address] [place] [address] [address] Wally Zapien Urea nitrogen [Mass/Vol] 23.0 mg/dL Critically high 7.0-18.0 [facility] Comment on above: Performed By: #### U RCX #### [facility] [address] [place] [address] Dr. Wally Zapien Urea nitrogen/Creatinine [Mass ratio] 27.1 mg/mg Normal [facility] Comment on above: Performed By: #### U RCX #### [facility] [address] [place] [address] Dr. Wally Zapien URINE MICROSCOPIC ONLYon BACTERIA TRACE Abnormal NONE SEEN [facility] Comment on above: Performed By: #### E RUR, UMICRO #### [facility] [address] [place] [address] Dr. Wally Zapien Bacteria identified Cx Nom (U) NOT INDICATED Normal [facility] Comment on above: Performed By: #### E RUR, UMICRO #### [facility] [address] [place] [address] Dr. Wally Zapien CAST NONE SEEN Normal NONE SEEN [facility] Comment on above: Performed By: #### E RUR UMICRO #### [facility] [address] [place] [address] Dr. Wally Zapien Crystals LM Nom (Urine sed) NONE SEEN Normal NONE SEEN [facility] Comment on above: Performed By: #### E RUR UMICRO #### [facility] [address] [place] [address] Dr. Wally Zapien Epithelial cells LM Ql (Urine sed) RARE Normal NONE SEEN /RARE [facility] Comment on above: Performed By: #### E RUR, UMICRO #### [facility] [address] [place], [place] [id number] Dr. Wally Zapien MUCOUS NONE SEEN Normal NONE SEEN [facility] Comment on above: Performed By: #### KERRI PADRON #### [facility] [address] [id number] Wally Zapien RBC (U) [#/Vol] /uL Abnormal 0-2 [facility] Comment on above: Performed By: #### KERRI PADRON #### [facility] [address] [place] [address] [address] Wally Zapien WBC 2-5 Abnormal NONE SEEN [facility] Comment on above: Performed By: #### KERRI PADRON #### [facility] [address] [place] [address] [address] Wally Zapien Vital Signs Date Time Vital Sign Value Performing Clinician Facility 03-17-2024 14:58-0400 Blood Pressure Location Lazara Orzech [facility] 03-17-2024 14:58-0400 Diastolic blood pressure 77 mm[Hg] Lazara Orzech [facility] 03-17-2024 14:58-0400 Heart rate 80 /min Lazara Orzech [facility] 03-17-2024 14:58-0400 Respiratory rate 16 /min Lazara Orzech [facility] 03-17-2024 14:58-0400 Systolic blood pressure 132 mm[Hg] Lazara Orzech [facility] 02-11-2024 09:59-0400 Blood Pressure Location Lazara Orzech [facility] 02-11-2024 09:59-0400 Diastolic blood pressure 84 mm[Hg] Lazara Orzech [facility] 02-11-2024 09:59-0400 Heart rate 71 /min Lazara OrinZair [facility] 02-11-2024 09:59-0400 Systolic blood pressure 138 mm[Hg] Lazara Orzech [facility] 07-17-2023 15:40-0500 Body height 160.02 cm Rocio Rocio Other [employer] Other 07-17-2023 15:40-0500 Body mass index (BMI) [Ratio] 37.55 kg/m2 Rocio Rocio Other [employer] Other 07-17-2023 15:40-0500 Body temperature 98.2 [degF] Rocio Rocio Other [employer] Other 07-17-2023 15:40-0500 Body weight 96.16 kg Rocio Rocio Other [employer] Other 07-17-2023 15:40-0500 Diastolic blood pressure 76 mm[Hg] Rocio Chan Other [employer] Other 07-17-2023 15:40-0500 Respiratory rate 18 /min Rocio Rocio Other [employer] Other 07-17-2023 15:40-0500 SaO2% (BldA) [Mass fraction] 96 % Rocio Chan Other [employer] Other 07-17-2023 15:40-0500 Systolic blood pressure 134 mm[Hg] Rocio Chan Other [employer] Other 09-26-2022 13:26-0500 Blood Pressure Location [place] VALENTIN [facility] 09-26-2022 13:26-0500 Diastolic blood pressure 74 mm[Hg] [place] VALENTIN [facility] 09-26-2022 13:26-0500 Heart rate 52 /min [place] VALENTIN [facility] 09-26-2022 13:26-0500 Systolic blood pressure 173 mm[Hg] [place] VALENTIN [facility] 04-16-2022 13:49-0400 Diastolic blood pressure 87 mm[Hg] [place] VALENTIN [facility] 04-16-2022 13:49-0400 Mean blood pressure 110 mm[Hg] [place] VALENTIN [facility] 04-16-2022 13:49-0400 Systolic blood pressure 156 mm[Hg] [place] VALENTIN [facility] 04-16-2022 13:37-0400 Blood Pressure Location [place] VALENTIN [facility] 04-16-2022 13:37-0400 Diastolic blood pressure 102 mm[Hg] [place] VALENTIN [facility] 04-16-2022 13:37-0400 Heart rate 81 /min [place] VALENTIN [facility] 04-16-2022 13:37-0400 Respiratory rate 16 /min [place] VALENTIN [facility] 04-16-2022 13:37-0400 Systolic blood pressure 191 mm[Hg] [place] VALENTIN [facility] Encounters Encounter Date Encounter Type Care Provider Facility Start: 06-30-2024 ambulatory Lazara X Orzech Facilit y:[facility] Start: 06-09-2024 ambulatory Lazara X Orzech Facilit y:[facility] Start: 04-21-2024 End: 04-21-2024 ambulatory [facility] Start: 04-17-2024 End: 04-21-2024 ambulatory [facility] Start: 04-17-2024 End: 04-21-2024 ambulatory [facility] Start: 04-17-2024 End: 04-20-2024 Evaluation and management of inpatient [place] Start: 04-17-2024 End: 04-21-2024 Emergency department patient visit [place] Start: 04-17-2024 End: 04-21-2024 ambulatory [facility] Start: 04-14-2024 ambulatory Lazara X Orzech Facilit y:[facility] Start: 04-07-2024 End: 04-07-2024 ambulatory [place] VALENTIN Facility:[id number] Start: 03-18-2024 End: 03-18-2024 ambulatory Emily Maria Facility:[facility] Start: 03-18-2024 End: 03-18-2024 Patient encounter procedure Emily [facility] Start: 03-17-2024 End: 03-17-2024 ambulatory Lazara X Orzech Facility: [facility] Start: 03-17-2024 End: 03-17-2024 Patient encounter procedure Lazara X Orzech [facility] Start: 02-11-2024 End: 02-11-2024 Lab Drop off Lazara X Orzech [facility] Start: 02-11-2024 End: 02-11-2024 ambulatory Lazara X Orzech [facility] Start: 02-11-2024 End: 02-11-2024 Patient encounter procedure Lazara X Orzech [facility] Start: 11-18-2023 End: 11-19-2023 ambulatory Fabrice Dias MD Facility: [facility] Start: 10-28-2023 End: 10-29-2023 ambulatory Fabrice Dias MD Facility: [facility] Start: 09-30-2023 End: 10-01-2023 ambulatory Fabrice Dias MD Facility: [facility] Start: 2023 End: 09-24-2023 ambulatory Fabrice Dias MD Facility: [facility] Start: 07-17-2023 End: 07-17-2023 ambulatory Rocio Chan Other [employer] Other Start: 07-17-2023 Office outpatient visit 15 minutes Rocio Chan [facility] Start: 05-27-2023 End: 05-28-2023 ambulatory Fabrice Dias MD Facility: [facility] Start: 01-23-[address] ELIANA BA . Facili ty:[facility] Start: 09-26-2022 End: 09-26-2022 Patient encounter procedure [place] VALENT[place] [facility] Start: 09-24-2022 End: 09-25-[address] ELIANA BA . Facility:[facility] Start: 09-18-2022 End: 09-18-2022 ambulatory KARLOS MELTON . Facility:[facility] Start: 04-16-2022 End: 04-16-2022 Patient encounter procedure [place] VALENTIN [facility] Procedures Date Procedure Procedure Detail Performing Clinician Start: 09-24-2022 PSA screening KARLOS ALVAREZ . Comment on above: Performed By: #### U RCX #### [facility] [address] [place] [address] Dr. Wally Zapien Start: 03-17-2019 Cystoscope, device ( physical object) [place] VALENTIN Cardiac catheterization Patr ick JAYDON Coronary artery bypass graft Renon[place] VALENTIN Extraction of cataract Patri ck VALENTIN Hydrocelectomy Renonoe MEYER S Inguinal herniorrhaphy Patri ck VALENTIN Large intestine excision Pat noe VALENTIN Prosthetic arthropla sty of the hip Ren[place]oe VALENTIN Repair of musculoten dinous cuff of shoulder Renonoe VALENTIN Tonsillectomy and adenoidectomy Renonoe VALENTIN Immunizations Immunization Date Immunization Notes Care Provider [facility] [place] 05-24-2022 influenza virus vacc ine, unspecified formulation [place] JAYDON [facility] 04-20-2022 SARS-CoV-2 mRNA (chlgvucuged-ruvr-wiqons e) vaccine NoDaysOff [facility] 06-19-2021 SARS-CoV-2 (COVID-19 ) mRNA BNT-162b2 vax NoDaysOff [facility] 06-01-2021 influenza virus vacc ine, unspecified formulation NoDaysOff [facility] 05-23-2021 influenza virus vacc ine, unspecified formulation NoDaysOff [facility] 11-10-2020 SARS-CoV-2 (COVID-19 ) mRNA BNT-162b2 vax NoDaysOff [facility] 10-20-2020 SARS-CoV-2 (COVID-19 ) mRNA BNT-162b2 vax NoDaysOff [facility] 08-04-2020 zoster vaccine recombinant NoDaysOff [facility] 07-06-2020 SARS-CoV-2 (COVID-19 ) Ad26 vaccine, recombinant NoDaysOff [facility] 06-24-2020 influenza virus vacc ine, unspecified formulation NoDaysOff [facility] 06-03-2020 zoster vaccine recombinant NoDaysOff [facility] 06-02-2020 SARS-CoV-2 (COVID-19 ) Ad26 vaccine, recombinant [place] VALENTIN [facility] 05-26-2020 influenza virus vacc ine, unspecified formulation [place] VALENTIN [facility] 05-29-2019 influenza virus vacc ine, unspecified formulation [place] VALENTIN [facility] 06-17-2018 influenza virus vacc ine, unspecified formulation Renon[place] VALENTIN [facility] 05-14-2017 influenza virus vacc ine, unspecified formulation [place] VALENTIN [facility] 05-14-2017 pneumococcal polysaccharide vaccine, 23 valent [place] VALENTIN [facility] 05-17-2016 influenza virus vacc ine, unspecified formulation [facility] VAL[facility] [facility] 05-17-2016 pneumococcal conjuga te vaccine, 13 valent [place] [employer] 05-16-2015 influenza virus vacc ine, unspecified formulation [place] VALENTIN [facility] Payers Date Payer Category Payer Private Health Insurance 1959 Medicare [id number] 1940 Unknown [id number] 2.16.84 0.1.060344.3.579.2.593 1942 Unknown [id number] 2.16.84 0.1.318552.3.579.2.593 1942 Unknown [id number] 2.16.84 0.1.058349.3.579.2.593 1942 Unknown [id number] 2.16. 840.1.516159.3.579.2.196 1942 Unknown [id number] 2.16. 840.1.173193.3.579.2.196 1942 Unknown [id number] 2.16. 840.1.653228.3.579.2.196 1942 Unknown [id number] 2.16. 840.1.490602.3.579.2.196 1942 Unknown [id number] 2.16. 840.1.028832.3.579.2.196 1942 Unknown [id number] 2.16.8 40.1.754579.3.579.2.727 1942 Unknown [id number] 2.16.8 40.1.446221.3.579.2.727 1942 Unknown [id number] 2.16.8 40.1.369349.3.579.2.1286 1942 Unknown [id number] 2.16.8 40.1.398074.3.579.2.128 1942 Unknown [id number] 2.16.8 40.1.021571.3.579.2.128 1942 Unknown [id number] 2.16.8 40.1.763262.3.579.2.1286 1942 Unknown [id number] 2.16.8 40.1.941542.3.579.2.1286 1942 Unknown [id number] 2.16.8 40.1.455824.3.579.2.1286 1942 Unknown [id number] 2.16.8 40.1.033822.3.579.2.128 1942 Unknown [id number] 2.16.8 40.1.881060.3.579.2.1286 1942 Unknown [id number] 2.16.8 40.1.422894.3.579.2.1286 1942 Unknown [id number] 2.16.8 40.1.527330.3.579.2.727 1942 Unknown [id number] 2.16.8 40.1.735381.3.579.2.727 1942 Unknown [id number] 2.16.8 40.1.706537.3.579.2.727 1942 Unknown [id number] 2.16.8 40.1.097861.3.579.2.727 1942 Unknown [id number] 2.16.8 40.1.617489.3.579.2.727 1942 Unknown [id number] 2.16.8 40.1.552231.3.579.2.727 Social History Date Type Detail Facility Start: 04-16-2022 End: 03-17-2024 Tobacco smoking status Never smoked tobacco (finding) [facility] Tobacco smoking status Never [facility] [place] Sex Assigned At Male [facility] [place] Functional Status Date Assessment Result Facility 03-17-2024 Functional Status N/A [facility] 02-11-2024 Functional Status N/A [facility] 09-26-2022 Functional Status N/A [facility] 04-16-2022 Functional Status N/A [facility] [place] Clinical Notes 10-06-2020 to 04-17-2024 Note Date [...] Elias Garner DO on 04/17/2024 8:52 AM [facility] 03-17-2024 Hospital Discharge instructions Patient Education [...] Follow these instructions at home: Medicines Take qxqw-pve-kzmfckd and prescription medicines only as told by [...] provider. Document Revised: 05/03/2021 Document Reviewed: 05/03/2021 [employer] Patient Education 2022 [employer]. Follow Up Care 03/13/2024 14:20:02 With:KIM Lino APRN, Lazara Echavarria, PARVIN, URL Address: When: Unknown [facility]17[facility] Note Patient Education Urology Acute Urinary [...] these instructions at home: Medicines ? Take zysj-jqh-tcxuwck and prescription medicines only as told by [...] provider. Document Revised: 05/03/2021 Document Reviewed: 05/03/2021 [employer] Patient Education ? 2022 [employer]. [facility] 02-11-2024 Evaluation + Plan note Diagnostic Tests PendingUrine Culture 02/11/24 [facility] 02-11-2024 Hospital Discharge instructions Patient Education [...] Follow these instructions at home: Medicines Take jaug-rir-nufmrkj and prescription medicines only as told by [...] or the blood stops without treatment. Take tdcf-qia-dqazaih and prescription medicines only as told by your health care provider. Drink enough fluid to keep your urine pale yellow. This information is not intended to replace advice given to you by your health care provider. Make sure you discuss any questions you have with your health care provider. Document Revised: 04/12/2021 Document Reviewed: 04/12/2021 [employer] Patient Education 2022 [employer] 02/11/2024 10:34:29 Benign Prostatic Hyperplasia Benign Prostatic [...] urethra. Follow these instructions at home: Take ykdr-cch-zzpoksz and prescription medicines only as told by [...] provider. Document Revised: 02/28/2022 Document Reviewed: 02/28/2022 [employer] Patient Education 2022 [employer]. Follow Up Care 04/16/2022 14:54:37 With:KIM Lino APRN, PARVIN Kirk, URL Address: When: Unknown Comments:1 year With:JAYDON COE, [place] Maciel, URL Address: [facility] [address] , [place] [phone] When: Unknown [facility] 02-11-2024 Note - From: Julia Charlton To: [facility] - Administrative; Sent: 02/11/2024 10:28:36 EDT Show up: 08/26/2024 10:28:00 EST Subject: schedule 1 yr f/u Due Date/Time: 02/02/2025 10:28:00 EDT Reminder/Recall Patient needs scheduled for a 1 yr f/u, no labs [facility] 07-17-2023 Evaluation note Encounter Date Diagnosis [...] no improvement in 2 to 3 days [employer] Other 02-01-2023 Hospital Discharge instructions Patient Education [...] or mouth. Supplies needed: Soap. Alcohol-based hand laser cutter. Standard cleaning products. Disinfectants, such as bleach. [...] water are not available, use alcohol-based hand laser cutter. Avoid touching your face, mouth, nose, or [...] water. Air-dry your dishes or use a orchestra leader. Do not share dishes or eating utensils. [...] certain germs and not others. Read the job printer apprentice's instructions or read online resources to determine [...] minutes after each use, or according to job printer apprentice's instructions. Wash reusable cleaning cloths and sanitize [...] water are not available, use alcohol-based hand laser cutter. In general: Stay home except to get [...] for Professionals in Infection Control and Epidemiology: professionals.site.apic.org/oayqzdfb-ks-zvqu/fhc-jfiqjdvjhe-oxqyvis/home/ Summary It is important to know how [...] 05/21/2009 Document Revised: 12/08/2019 Document Reviewed: 11/06/2019 [employer] Patient Education 2019 [employer]. Follow Up Care 09/20/2022 14:58:28 With:JAYDON COE, [place] Maciel, URL Address: [facility] [address] , [place] [address]- When:3 months Comments:UTI F/U [facility] 08-22-2022 Hospital Discharge instructions Patient Education 04/16/2022 [...] urethra. Follow these instructions at home: Take fbil-xgr-ugzgxah and prescription medicines only as told by [...] 08/12/2006 Document Revised: 07/07/2019 Document Reviewed: 09/16/2017 [employer] Patient Education 2020 [employer]. 04/16/2022 14:44:17 Calorie Counting for Weight Loss [...] 08/12/2006 Document Revised: 05/01/2019 Document Reviewed: 07/12/2017 [employer] Patient Education 2020 [employer]. Follow Up Care 10/16/2021 15:00:57 With:JAYDON COE, [place] Maicel, URL Address: [address] [place], [place] [id number]- Business (1) When:Within 1 Year(s) [facility] 02-11-2021 NotePatient Outreach (COVAMN) KYLER RICHARD ([id number]) 1940 M Date Time Provider Department 10/06/20 JOLYNN RUSSO During your visit today, we recorded the following information about you: Allergies As of Date: 10/06/2020 (No Known Allergies) Date Reviewed: 11/27/2018 Reviewed by: Huyen Barraza - Fully Assessed Order(s):SARS-COVID VACCINE 1ST DOSE APPT [[id number]] Order #: [id number] FUTURE Prescriptions as of 10/06/2020 Sig: RHOPRESSA [...] arteriosclerosis [I25.10] Letter Text Encounter Status:Closed by InnoVital SystemsUSER on 10/10/20[facility] Evaluation + Plan note Future Appointments Appointment Date:04/19/2023 09:30:00 AM Scheduled Provider:[place] VALENTIN MD Location:[facility] Appointment Type:URO Office Visit [facility] evaluation + Plan note Future Appointments Appointment Date:01/16/2023 09:45:00 AM Scheduled Provider:Reno VALENTIN MD Location:[facility] Appointment Type:URO Office Visit Appointment Date:04/19/2023 09:30:00 AM Scheduled Provider:Reno VALENTIN MD Location:[facility] Appointment Type:URO Office Visit [facility] Evaluation + Plan note Future Appointments Appointment Date:04/14/2024 11:30:00 AM Scheduled Provider:KIM Lino APRN, [place] X Location:[facility] [place] Appointment Type:URO Office Visit [facility] Stephany History general Narrative - Reported* Type Description Date Medical History heart disease Medical History colon cancer Medical History glaucoma Surgical History open heart surgery Surgical History colon surgery Surgical History 3 hernia repairs Surgical History torn retina Surgical History cataracts Surgical History left total hip 2017 Surgical History Eye lid lift both 2020 Hospitalization History see above Hospitalization History back spasms 2022 [employer] Other Hospital course Narrative No data available for this section [facility] instructions No data available for this section [facility] No data available for this section [facility] Summary Purpose Family History No Family History [...] content) DATE CREATED AUTHOR 09/19/[address] [facility] DATE CREATED AUTHOR AUTHOR'S ORGANIZ ATION 02/01/2023 [facility] DATE CREATED AUTHOR AUTHOR'S ORGANIZ ATION 12/31/2023 [facility] DATE CREATED AUTHOR AUTHOR'S ORGANIZ ATION 02/13/2024 [facility] [facility] DATE CREATED AUTHOR AUTHOR'S ORGANIZ ATION 02/14/2024 [facility] DATE CREATED AUTHOR AUTHOR'S ORGANIZ ATION 04/22/2024 [facility] DATE CREATED AUTHOR AUTHOR'S ORGANIZ ATION 04/23/2024 [facility] DATE CREATED AUTHOR AUTHOR'S ORGANIZ ATION 05/26/2024 Joaquin Quispe [facility] Care Team (unrecognized sect ion and content) Personnel Name: Eliana Ba MD Address: [address] [place] [address] Personnel Name: Eliana Ba MD Address: Address: [address] [place], [place] [id number] Personnel Name: Eliana Ba MD Address: Address: [address] [place], [place] [id number] Personnel Name: Eliana Ba MD Address: Address: [address] [place] [address] Personnel Name: Eliana Ba MD Address: Address: [address] [place], [place] [id number] Personnel Name: Eliana Ba MD Address: Address: [address] [place] [address] REASON FOR VISIT (unrecogniz ed section and [...] BE BASED ON THE PRIMARY CLINICAL RECORDS. [employer] [facility]. provides no warranty or guarantee of the accuracy or completeness of information in this document.
[2024-06-03 09:05] LABS: Basophils Percent Auto 0.5 % (0.2-2.0); Eosinophils Absolute Auto 0.3 10^3/uL (0.0-0.7); Eosinophils Percent Auto 3.7 % (0.9-7.0); Hematocrit 43.6 % (42.0-54.0); Hemoglobin 14.9 g/dL (14.0-18.0); Immature Granulocytes Abs Auto 0.03 10^3/uL (0.00-0.03); Immature Granulocytes Pct Auto 0.4 % (0.0-0.5); Lymphocytes Absolute Auto 1.8 10^3/uL (1.2-3.8); Lymphocytes Percent Auto 22.4 % (20.5-60.0); Mean Corpuscular HGB Conc 34.2 g/dL (29.9-35.2); Mean Corpuscular Hemoglobin 31.3 pg (25.9-34.0); Mean Corpuscular Volume 91.6 fL (80.0-94.0); Mean Platelet Volume 10.4 fL (9.5-13.5); Monocytes Absolute Auto 0.6 10^3/uL (0.3-0.8); Monocytes Percent Auto 7.9 % (1.7-12.0); Neutrophils Absolute Auto 5.3 10^3/uL (1.4-6.5); Neutrophils Percent Auto 65.1 % (43.0-75.0); Platelet Count 173 10^3/uL (150-450); Red Blood Count 4.76 10^6/uL (4.70-6.10); Red Cell Distribution Width 13.4 % (11.0-15.0); White Blood Count 8.1 10^3/uL (4.0-11.0)
[2024-06-03 09:21] LABS: Alanine Aminotransferase 25 U/L (16-63); Albumin Globulin Ratio 0.9; Albumin Level 3.2 g/dL (3.4-5.0); Alkaline Phosphatase 111 U/L (46-116); Anion Gap 14.6; Aspartate Amino Transferase 19 U/L (15-37); Calcium 8.8 mg/dL (8.5-10.1); Carbon Dioxide 24.2 mmol/L (21.0-32.0); Chloride 104 mmol/L (98-107); Estimated GFR (African America >60 (>=60 mL/min/1.73m^2); Estimated GFR (Non-African Ame >60 (>=60 mL/min/1.73m^2); Globulin 3.7 g/dL; Glucose 133 mg/dL (74-106); Potassium 3.8 mmol/L (3.5-5.1); Sodium 139 mmol/L (136-145); Total Protein 6.9 g/dL (6.4-8.2)
[2024-06-03 11:45] VITALS: BP 138/78; PULSE 61; O2SAT 98
== END 2024-06-03 11:50 | disposition home or self-care (01) ==
PROVIDERS: Emergency Provider Emergency Medicine; PCP Family Medicine
DX: R10.9 Unspecified abdominal pain (principal); Z85.048 Personal history of other malignant neoplasm of rectum, rectosigmoid junction, and anus
CPT/HCPCS: 36415; 51798; 74177; 80053; 85025; 99285; Q9967

== ENCOUNTER 2024-06-09 20:17 | Outpatient (OUT) | payer MEDICARE, SELFPAY ==
--- OUTSIDE RECORDS SUMMARY | 2024-06-09 20:20 | XMS_ITS | CCD ---
Author Organization [facility] CliniSymd Care Team Providers Care Copy Supervisor Name Role Phone Bayron Ba Primary Care Physician [phone] GERONIMO ., KARLOS Admitting Unavailable GERONIMO ., KARLOS Consulting Unavailable GERONIMO Parra, KARLOS Attending Unavailable MARCUS ., DR MONROY Primary Care Unavailable Joelle Lopez Consulting Unavailable ABEBAY ., DR MONROY Attending Unavailable HOY ., DR MONROY Admitting Unavailable HOY ., DR MONROY Primary Care Unavailable HOY ., DR MONROY Consulting Unavailable HOY ., DR MONROY Attending Unavailable HOY ., DR MONROY Admitting Unavailable HOY ., DR MONROY Primary Care Unavailable HOY ., DR MONROY Consulting Unavailable CALVIN BARNES Consulting Unavailable Rocio Chan Unavailable Edgaritis , Andbryce Conner Attending Unavailable Giedraitis , Andrius Ubaldo Attending Unavailable Giedraitis , Andrius Vchasity Attending Unavailable Giedraitis , Andrius Vchasity Attending Unavailable Giedraitis , Andrius Vytsahil Attending Unavailable Orzech, Lazara X Attending Unavailable Orzech, Lazara X Admitting Unavailable Neelach, Lazara X Attending Unavailable DONNA ANTONY Attending Unavailable BAYRON BA M Primary Care Unavailable RAMEZ LERNER Admitting Unavailable DONNA ANTONY Attending Unavailable DONNA ANTONY Referring Unavailable BAYRON BA M Primary Care Unavailable DONNA ANTONY Attending Unavailable DONNA ANTONY M Referring Unavailable BAYRON BA M Primary Care Unavailable JOEL, RUQIYYA T Attending Unavailable JOEL, RUQIYYA T Referring Unavailable BAYRON BA M Primary Care Unavailable MALDONADO, RUQIYYA T Attending Unavailable JOEL, RUQIYYA T Referring Unavailable BAYRON BA M Primary Care Unavailable MALDONADO, RUQIYYA T Attending Unavailable GEORGINA MALDONADO Referring Unavailable BAYRON BA M Primary Care Unavailable RAMBO MILLIGAN Attending Unavailable RAMBO MILLIGAN Referring Unavailable HOY, BAYRON M Primary Care Unavailable HOY, BAYRON M Referring Unavailable HOY, BAYRON M Primary Care Unavailable Orzech, Lazara X Attending Unavailable Orzech, Lazara X Attending Unavailable Emily Maria Attending Unavailable Orzech, Lazara X Attending Unavailable Orzech, Lazara X Attending Unavailable Orzech, Lazara X Admitting Unavailable Orzech, Lazara X Attending Unavailable Reno VALENTIN Referring Unavailable Rneo VALENTIN Attending Unavailable Allergies Allergy Classification Reported Allergen(s) Allergy Type Date of Onset Reaction(s) Facility Quinolones (antibiotic) (2 sources) levoFLOXacin; Translations: [levofloxacin] Drug Allergy Irritation (qualifier value) [facility] (9 sources) levoFLOXacin; Translations: [levofloxacin] Drug Allergy 04-17-2024 Irritation (qualifier value) [facility] Medications Current Medications Medication Drug Class(es) Dates Sig (Normalized) Sig (Original) Aspirin (7 sources) Platelet Aggregation Inhibitor, Nonsteroidal Anti-inflammatory Drug Start: 09-26-2022 aspirin Start Date: 09/26/22 Status: Ordered atorvastatin 40 mg oral tablet (9 sources) HMG-CoA Reductase Inhibitor Start: 03-13-2019 atorvastatin 40 mg oral tablet Refills(s) 0 Start Date: 03/13/19 Status: Ordered brimonidine (8 sources) alpha-Adrenergic Agonist Start: 03-13-2019 brimonidine ophthalmic 0.2% solution Refill(s) 0 Start Date: 03/13/19 Status: Ordered Start: 03-13-2019 brimonidine op hthalmic 0.2% solution Refill(s) 0 Start Date: 03/13/19 Status: Ordered brimonidine tartrate 2 mg/ml / timolol 5 mg/ml ophthalmic solution (1 source) alpha-Adrenergic Agonist, beta-Adrenergic Beatrice take 1 drop(s) into the eye(s) twice daily Combigan 0.2-0.5 % 1 drop into affected eye Ophthalmic Twice a day Active cetirizine hydrochloride 10 mg oral tablet (6 sources) Histamine-1 Receptor Antagonist Start: 02-11-20 cetirizine 10 mg Tab Refills(s) 0 Start Date: 02/11/24 Status: Ordered dorzolamide (9 sources) Carbonic Anhydrase Inhibitor Start: 03-13-20 take [...] Active doxycycline hyclate 100 mg oral capsule (3 sources) Tetracycline-class Drug Start: 06-02-2024 End: 06-09-2024 take 1 capsule by mouth twice daily doxycycline hyclate 100 mg Cap 100 mg = 1 cap(s), Oral, BID, may substitute hyclate for monohydrate based on availability, X 7 day(s), # 14 cap(s), Refills(s) 0, [facility]acy: [id number], 158, cm, 06/02/24 11:55:00 EDT, Height/Length Dosing, 96, kg, 06/02/24 11:55:00 EDT, Weight Dosing Start Date: 06/02/24 Stop Date: 06/09/24 Status: Ordered Start: 09-26-2022 End: 10-06-2022 take 1 capsule by mouth twice daily doxycycline hyclate 100 mg Cap 100 mg = 1 cap(s), Oral, BID, X 10 day(s), # 20 cap(s), Refills(s) 0, [id number], 160, cm, 09/26/22 13:50:00 EST, Height/Length Dosing, 97.3, kg, 09/26/22 13:50:00 EST, Weight Dosing Start Date: 09/26/22 Stop Date: 10/06/22 Status: Ordered hyoscyamine sulfate 0.125 mg sublingual tablet (6 sources) Start: 02-11-2024 hyoscyamine 0. 125 mg sublingual Tab Refills(s) 0 Start Date: 02/11/24 Status: Ordered icosapent ethyl 1000 mg oral capsule (9 sources) Start: 03-13-2019 Vascepa 1 g or al capsule Refills(s) 0 Start Date: 03/13/19 Status: Ordered take 2 capsules by out every twelve hours Vascepa 1 GM 2 capsules with food Orally Twice a day Active latanoprost (9 sources) Prostaglandin Analog Start: 03-13-2019 take 1 [...] day Active lisinopril 10 mg oral tablet (9 sources) Angiotensin Converting Enzyme Inhibitor Start: 03-13-2019 lisinopril 10 mg oral tablet Refills(s) 0 Start Date: 03/13/19 Status: Ordered meloxicam 15 mg oral tablet (9 sources) Nonsteroidal Anti-inflammatory Drug Start: 04-09-2017 meloxicam 15 mg oral tablet Refills(s) 0 Start Date: 03/13/19 Status: Ordered metoprolol tartrate 25 mg oral tablet (9 sources) beta-Adrenergic Beatrice Start: 03-13-2019 take 1 tablet by mouth once daily Lopressor 25 mg oral tablet 25 mg = 1 tab(s), Oral, Daily, Refills(s) 0 Start Date: 03/13/19 Status: Ordered take 1 tablet by lavern every twelve hours Metoprolol Tartrate 25 MG 1 tablet with food Orally Twice a day Active Multi Vitamin+ (7 sources) Start: 09-26-2022 Multi Vitamin+ Start Date: 09/26/22 Status: Ordered netarsudil 0.2 mg/ml ophthalmic solution (8 sources) Rho Kinase Inhibitor Start: 03-13-2019 Rhopressa 0.02% ophthalmic solution Refill(s) 0 Start Date: 03/13/19 Status: Ordered Start: 03-13-2019 Rhopressa 0.02 % ophthalmic solution Refill(s) 0 Start Date: 03/13/19 Status: Ordered tamsulosin hydrochloride 0.4 mg oral capsule (8 sources) alpha-Adrenergic Beatrice Start: 02-11-2024 tamsu losin 0.4 mg Cap 0.4 mg = 1 cap(s), BID, Refills(s) 0 Start Date: 02/11/24 Status: Ordered Start: 03-07-20[address] [facility] twice daily tamsulosin 0.4 mg Cap 0.4 mg = 1 cap(s), Oral, BID, # 180 cap(s), Refills(s) 3, Pharmacy: [address], 160, cm, 10/16/21 14:26:00 EST, Height/Length Dosing, 94.4, kg, 10/16/21 14:26:00 EST, Weight Dosing Start Date: 03/07/22 Status: Ordered 12 hr timolol 5 mg/ml ophthalmic solution (1 source) beta-Adrenergic Beatrice Start: 03-13-2019 timolo l Opth 0.5% Yvette 5 mL Refill(s) 0 Start Date: 03/13/19 Status: Ordered timolol Opth 0.5% Yvette 5 mL (7 sources) Start: 03-13-2019 timolol Opth 0 .5% [...] propionate 0.05 mg/actuat metered dose nasal spray (4 sources) Corticosteroid Start: 03-17-2024 fluticasone Nasal 0.05 mg/inh [place] instill 1 spray into each nostril once [...] cerebrovascular disease Onset: 04-17-2024 Biliary tract disease (8 sources) Biliary calculus 03-13-2019 Episodic Calculus of urinary tract (11 sources) Kidney stone; Translations: [Calculus of kidney] Onset: 04-16-2022 Episodic Cancer of colon (8 sources) Carcinoma of colon, stage I 03-13-2019 [...] Onset: 09-20-2022 Chronic Disorders of lipid metabolism (13 sources) Hypercholesterolemia; Translations: [Hyperlipidemia, unspecified] Onset: 09-20-2022 03-13-2019 Chronic Essential hypertension (9 sources) Hypertensive disorder; Translations: [Essential (primary) hypertension] Onset: 09-20-2022 03-13-2019 Chronic Genitourinary symptoms and ill-defined conditions (20 sources) Nocturia; Translations: [Retention of urine] Onset: 09-18-2022 10-16-2021 Episodic Hyperplasia of prostate (13 sources) Benign prostatic hypertrophy with outflow obstruction; [...] Episodic Other diseases of bladder and urethra (13 sources) Male urethral stricture; Translations: [Unspecified urethral stricture, male, unspecified site] Onset: 04-16-2022 Episodic Other diseases of kidney and ureters (2 sources) Urinary tract obstruction; Translations: [Other obstructive and reflux uropathy] Onset: 04-16-2022 Episodic Other gastrointestinal disorders (8 sources) Scrotal mass 05-18-2019 Episodic Other male genital disorders (8 sources) Disorder of male genital organ 10-16-2021 Episodic Other male genital disorders (8 sources) Spermatocele 11-02-2019 Episodic Other male genital disorders (8 sources) Testicular mass 03-13-2019 Episodic Other nervous system disorders (1 source) Chronic pain; Translations: [Other chronic pain] Chronic Other non-traumatic joint disorders (1 source) Hip pain; Translations: [Pain in left hip] Episodic Other nutritional; endocrine; and metabolic disorders (1 source) Obese class II; Translations: [Body mass index (BMI) 36.0-36.9, adult] Onset: 04-16-2022 Chronic Other nutritional; endocrine; and metabolic disorders (8 sources) Body mass index 30+ - obesity 04-16-2022 Chronic Other nutritional; endocrine; and metabolic disorders (1 source) Hypocalcemia; Translations: [Hypocalcemia] Onset: 04-17-2024 Chronic Vanessa-; endo-; and myocarditis; cardiomyopathy (except that caused by tuberculosis or sexually transmitted disease) (8 sources) Pericarditis 03-13-2019 Episodic Residual codes; unclassified (8 sources) Sleep apnea 03-13-2019 Chronic Residual codes; unclassified (1 source) Sleep apnea, unspecified; Translations: [SLEEP APNEA UNSPECIFIED] Onset: 09-20-2022 Chronic Retinal detachments; defects; vascular occlusion; and retinopathy (8 sources) Retinal detachment 03-13-2019 Episodic Spondylosis; intervertebral disc disorders; other back problems (1 source) Low back pain; Translations: [Low back pain] Episodic Urinary tract infections (11 sources) Urinary tract infectious disease; Translations: [Urinary [...] 09-28-2022 Episodic Other aftercare (1 source) Other detention (current) drug therapy; Translations: [OTH GROUP HOME CURRENT DRUG THERAPY] Onset: 09-20-2022 Episodic Other aftercare (1 source) retirement (current) use of aspirin; Translations: [GROUP HOME CURRENT USE OF ASPIRIN] Onset: 09-20-2022 Episodic Other male genital disorders (8 sources) Hydrocele Resolved: 08-26-1989 03-13-2019 Episodic Other [...] Test Name Value Interpretation Reference Range Facility C Urineon 06-04-2024 Bacteria identified Cx Nom (U) Microbiology PROCEDURE: Urine Culture [R1] SOURCE: U Random BODY SITE: COLLECTED DATE/TIME: 06/02/2024 12:49 EDT RECEIVED DATE/TIME: 06/02/2024 17:59 EDT START DATE/TIME: 06/02/2024 17:59 EDT FREE TEXT SOURCE: KIM Lino APRN, KIM Lino APRN, Lazara X Lazara X FINAL REPORTS Final Report [] Verified Date/Time: 06/04/2024 10:18 EDT 85,000 cfu/ml Methicillin-Resistan t Staphylococcus aureus MRSA SUSCEPTIBILITY RESULTS LEGEND: S=Susceptible, N/R=Not Reported, Blank=Data not available, or drug not advisable or tested, I=Intermediate, ESBL=Extended spectrum beta-lactamase, R=Resistant, TFG=Thymidine-depend ent strain, RAFAEL=Beta-lactamase positive, CARIN=mcg/m;(mg/L), S*=Predicted susceptible interp, R*=Predicted resistant interp MRSA Antibiotic CARIN Dilutn CARIN Interp Amoxicillin/ >4/2 R* Clavulanate Ampicillin >8 R* Ampicillin/ 16/8 R* Sulbactam Cefazolin <=8 R* Ceftaroline <=0.5 S Ciprofloxacin >2 R Daptomycin <=1 S Gentamicin <=4 S Levofloxacin >4 R Linezolid <=2 S Nitrofurantoin <=32 S Oxacillin >2 R Penicillin >8 R* Rifampin <=1 S Tetracycline <=4 S Trimethoprim/ <=0.5/9.5 S Sulfa Vancomycin 1 S Performing Locations R1: This test was performed at: [facility], [address] [place] [address], [phone]- , , [facility] Comment on above: Performed By: #### 2 [id number] #### [facility] [address] [place] [address] Urology Office/Clinic Noteon 06-02-2024 Urology Office/Clinic Note Urology Office/Clinic Note Chief Complaint [facility] ER follow up HPI Staff 83 year old male patient presents today for a ER follow up from [facility]. Has had a cath from prostate problems, however presented to ER with difficulty urinating 05/10/24. Cath was placed. S/P Cysto 04/07/24. Urine cx 05/10/24: Urine Culture, Routine Final Organism: Gram negative nicolle : 50,000-100,000 colony forming units per mL Gram negative nicolle Organism: Proteus mirabilis, : 50,000-100,000 colony forming units per mL noticed blood in the bag this morning, has been clear so far in his bag. Has been uncomfortable the last few days. History of Present Illness I have reviewed and verified the staff HPI to be accurate for this encounter. Portions of this record may have been created with voice recognition artificial intelligence software, specifically [employer] and or [employer]. Substitutions may have occurred due to the inherent limitations of voice recognition and artificial intelligence software. Review of Systems PHQ Score Initial Depression Screen Score: 0 SCORE Physical Exam Vitals & Measurements HR: 156(Peripheral) RR: 16 BP: 95/84 HT: 62 in HT: 158 cm WT: 96 kg WT: 211.2 lb BMI: 38.46 General: Well developed, well nourished, in no acute distress. Assessment/Plan PRW pt 1. UTI (urinary tract infection) (N39.0: Urinary tract infection, site not specified) UCX 05/10/2024 - 50-100k Proteus mirabilis, treated with Keflex Patient's noted gross hematuria in bag today, was unsure if this was to be of concern. On exam today, he has noted to have purulent, pink-tinged urine. Patient does also complain of feeling of bladder fullness, urgency, burning sensation in bladder and urethra. Urine sample obtained from fresh catheter today. Will start on empiric doxycycline twice daily x 7 days. Discussed side effects. Rx sent to pharmacy. Increase fluid intake, avoid bladder irritants ER for fever, NV, severe flank pain, inability to urinate -Start doxycycline -Urine being sent for culture, will call patient if needing to change treatment course Ordered: doxycycline, 100 mg = 1 cap(s), Oral, BID, may substitute hyclate for monohydrate based on availability, X 7 day(s), # 14 cap(s), Refills(s) 0, Pharmacy: [id number], 158, cm, 06/02/24 11:55:00 EDT, Height/Length Dosing, 96, kg, 06/02/24 11:55:00 ED... 2. Urinary retention (R33.9: Retention of urine, unspecified) Has experienced urinary retention in the past. 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 Episode of retention 03/12/2024 at [facility] ER. Patient opted to keep Sanches catheter until cystoscopic evaluation. s/p cystoscopy 04/07/2024 which showed high-grade trabeculation, open prostatic urethra. Patient was to follow-up 3 months with PVR at that time. 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 Started to have difficulty voiding a day or 2 prior to ER visit. [facility] ER 05/10/2024 with difficulty urinating. There is no note of degree of retention at that time, Sanches placed and treated with Keflex. UCX at that time with Proteus mirabilis. Discussed recent cystoscopy findings with the patient as well as recent recurrent episodes of retention. I believe his retention episodes are secondary to his bladder not emptying over prostatic obstruction, as noted by high-grade trabeculation on scope without significant obstruction noted. discussed risk for retention recurrence. I did advise patient I would recommend maintaining Sanches catheter versus relearning CIC over trial of void. Patient and son agree. Sanches changed in office today. See ad hoc. -Continue every 4 week cath changes. -Will make PRW aware of situation to ensure that he does not have any additional recommendations. 3. Gross hematuria (R31.0: Gross hematuria) Believed to be secondary to UTI. Urine is pink-tinged, purulent today on exam -Continue to monitor after treatment of UTI Ordered: Urine Culture 4. BPH with urinary obstruction (N40.1: Benign prostatic hyperplasia with lower urinary tract symptoms) S/p cystoscopy 04/07/2024 - no evidence of urethral stricture. There was some excoriation of the anterior portion of the proximal penile urethra, presumably from Sanches catheter. Prostatic urethra open. No evidence of tumors or stones in the bladder. High-grade trabeculation. Does take tamsulosin 0.4 mg twice daily. Tolerating well without side effects. -Continue tamsulosin Ordered: Urine Culture 5. Urethral stricture in male (N35.919: Unspecified urethral stricture, male, unspecified site) s/p cysto/UD 06/15/2021 Cystoscopy 04/07/2024 without evidence of stricture -Continue to monitor Orders: doxycycline, 100 mg = 1 cap(s), Oral, Daily, Take 1 pill the day before the procedure and 1 pill after the procedure, # 2 cap(s), Refills(s) 0, Pharmacy: [facility] (more content not included)... Normal [facility] Comment on above: Result Comment: Elec tronically Signed By: KIM Lino APRN, Lazara Echavarria\.br\Date and Time Signed: 06/02/24 13:23 EDT COMPREHENSIVE METABOLIC PANE Jarett 04-20-2024 Albumin [Mass/Vol] 3.4 g/dL Normal 3.2-5.3 [facility] Comment on above: Performed By: #### C MP ####[facility] ([id number])[address] [place] [address], [place] [address] ALP [Catalytic activity/Vol] 73 U/L Normal 39-130 [facility] Comment on above: Performed By: #### C MP ####[facility] ([id number])[address] [place] [address], [place] [address] ALT [Catalytic activity/Vol] 21 U/L Normal 0-40 [facility] Comment on above: Performed By: #### C MP ####[facility] ([id number])[address] [place] [address], [place] [address] Anion gap [Moles/Vol] 8 mmol/L Normal 5-15 [facility] Comment on above: Performed By: #### C MP ####[facility] ([id number])[address] [place] [address] [place] [address] AST [Catalytic activity/Vol] 17 U/L Normal 0-41 [facility] Comment on above: Performed By: #### C MP ####[facility] ([id number])[address] [place] [address], [place] [address] Bilirubin [Mass/Vol] 0.7 mg/dL Normal 0.3-1.2 [facility] Comment on above: Performed By: #### C MP ####[facility] ([id number])[address] [place] [address], [place] [address] Calcium [Mass/Vol] 8.4 mg/dL Low 8.5-10.5 [facility] Comment on above: Performed By: #### C MP ####[facility] ([id number])[address] [place] [address], [place] [address] Chloride [Moles/Vol] 102 mmol/L Normal 98-109 [facility] Comment on above: Performed By: #### C MP ####[facility] ([id number])[address] [place] [address] [place] [address] CO2 [Moles/Vol] 24 mmol/L Normal 22-32 [facility] Comment on above: Performed By: #### C MP ####[facility] ([id number])[address] [place] [address] [place] [address] Creatinine [Mass/Vol] 0.85 mg/dL Normal 0.70-1.20 [facility] Comment on above: Result Comment: METH OD TRACEABLE TO IDMS STANDARD Performed By: #### C MP ####[facility] ([id number])[address] [place] [address] GFR/1.73 sq M.predicted among non-blacks MDRD (S/P/Bld) [Vol rate/Area] 87 mL/min/{1.73_m2} Normal >59 [facility] Comment on above: Result Comment: Reported eGFR is based on the CKD-EPI 2020 equation that does not use a race coefficient. Performed By: #### C MP ####[facility] ([id number])[address] [place] [address] [place] [address] Glucose [Mass/Vol] 119 mg/dL High 65-99 [facility] Comment on above: Performed By: #### C MP ####[facility] ([id number])[address] [place] [address], [place] [address] Potassium [Moles/Vol] 3.4 mmol/L Low 3.5-5.0 [facility] Comment on above: Performed By: #### C MP ####[facility] ([id number])[address] [place] [address], [place] [address] Protein [Mass/Vol] 6.4 g/dL Normal 6.0-8.0 [facility] Comment on above: Performed By: #### C MP ####[facility] ([id number])[address] [place] [address] Sodium [Moles/Vol] 134 mmol/L Normal 134-146 [facility] Comment on above: Performed By: #### C MP ####[facility] ([id number])[address] [place] [address] Urea nitrogen [Mass/Vol] 19 mg/dL Normal 5-27 [facility] Comment on above: Performed By: #### C MP ####[facility] ([id number])[address] [place] [address] CBC AND AUTO DIFFon 04-19- 24 ABSOLUTE BASOPHIL 0.0 X10E9/L Normal 0.0-0.2 [facility] Comment on above: Performed By: #### C MP, CBCA ####[facility] ([id number])[address] [place] [address] ABSOLUTE NEUTROPHIL 3.3 X10E9/L Normal 1.5-6.6 [facility] Comment on above: Performed By: #### C MP, CBCA ####[facility] ([id number])[address] [place] [address] Basophils/100 WBC (Bld) 0.4 % Normal [facility] Comment on above: Performed By: #### C MP, CBCA ####[facility] ([id number])[address] [place] [address] Eosinophils (Bld) [#/Vol] 0.3 10*3/uL Normal 0.0-0.4 [facility] Comment on above: Performed By: #### C MP, CBCA ####[facility] ([id number])[address] [place] [address] Eosinophils/100 WBC (Bld) 4.5 % Normal [facility] Comment on above: Performed By: #### C MP, CBCA ####[facility] ([id number])[address] [place] [address] [place] [address] Erythrocyte distribution width (RBC) [Ratio] 13.4 % Normal 11.5-15.0 [facility] Comment on above: Performed By: #### C MP, CBCA ####[facility] ([id number])[address] [place] [address] Hematocrit (Bld) [Volume fraction] 43.2 % Normal 39-49 [facility] Comment on above: Performed By: #### C MP, CBCA ####[facility] ([id number])[address] [place] [address] Hemoglobin (Bld) [Mass/Vol] 15.1 g/dL Normal 13.0-17.0 [facility] Comment on above: Performed By: #### C SERINA, CBCA ####[facility] ([id number])[address] [place] [address] Lymphocytes (Bld) [#/Vol] 2.1 10*3/uL Normal 1.0-3.5 [facility] Comment on above: Performed By: #### C MP, CBCA ####[facility] ([id number])[address] [place] [address] Lymphocytes/100 WBC (Bld) 33.9 % Normal [facility] Comment on above: Performed By: #### C MP, CBCA ####[facility] ([id number])[address] [place] [address] MCH (RBC) [Entitic mass] 31.9 pg Normal 27-34 [facility] Comment on above: Performed By: #### C MP, CBCA ####[facility] ([id number])[address] [place] [address] [place] [address] MCHC (RBC) [Mass/Vol] 34.8 g/dL Normal 32-36 [facility] Comment on above: Performed By: #### C MP, CBCA ####[facility] ([id number])[address] [place] [address] [place] [address] MCV (RBC) [Entitic vol] 92 fL Normal 80-100 [facility] Comment on above: Performed By: #### C MP, CBCA ####[facility] ([id number])[address] [place] [address] Monocytes (Bld) [#/Vol] 0.5 10*3/uL Normal 0-0.9 [facility] Comment on above: Performed By: #### C MP, CBCA ####[facility] ([id number])[address] [place] [address], [place] [address] Monocytes/100 WBC (Bld) 8.5 % Normal [facility] Comment on above: Performed By: #### C MP, CBCA ####[facility] ([id number])[address] [place] [address], [place] [address] Neutrophils/100 WBC (Bld) 52.7 % Normal [facility] Comment on above: Performed By: #### C MP, CBCA ####[facility] ([id number])[address] [place] [address] [place] [address] Platelet mean volume (Bld) [Entitic vol] 8.2 fL Normal 7-12 [facility] Comment on above: Performed By: #### C MP, CBCA ####[facility] ([id number])[address] [place] [address] [place] [address] Platelets (Bld) [#/Vol] 140 10*3/uL Low 150-450 [facility] Comment on above: Performed By: #### C MP, CBCA ####[facility] ([id number])[address] [place] [address] 11902 RBC COUNT 4.71 X10E12/L Normal 4.10-5.70 [facility] Comment on above: Performed By: #### C MP, CBCA ####[facility] ([id number])[address] [place] [address] 80178 WBC (Bld) [#/Vol] 6.2 10*3/uL Normal 4.0-11.0 [facility] Comment on above: Performed By: #### C SERINA, CBCA ####[facility] ([id number])[address] [place] [address] COMPREHENSIVE METABOLIC PANE [facility] 04-19-2024 Albumin [Mass/Vol] 3.4 g/dL Normal 3.2-5.3 [facility] Comment on above: Performed By: #### C MP, CBCA ####[facility] ([id number])[address] [place] [address] ALP [Catalytic activity/Vol] 69 U/L Normal 39-130 [facility] Comment on above: Performed By: #### C MP, CBCA ####[facility] ([id number])[address] [place] [address] 92202 ALT [Catalytic activity/Vol] 18 U/L Normal 0-40 [facility] Comment on above: Performed By: #### C MP, CBCA ####[facility] ([id number])[address] [place] [address] 42225 Anion gap [Moles/Vol] 9 mmol/L Normal 5-15 [facility] Comment on above: Performed By: #### C MP, CBCA ####[facility] ([id number])[address] [place] [address] [place] [address] AST [Catalytic activity/Vol] 23 U/L Normal 0-41 [facility] Comment on above: Performed By: #### C SURAJ SMALLS ####[facility] ([id number])[address] [place] [address] 66147 Bilirubin [Mass/Vol] 1.0 mg/dL Normal 0.3-1.2 [facility] Comment on above: Result Comment: RESU LTS QUESTIONABLE DUE TO HEMOLYSIS Performed By: #### C SURAJ SMALLS ####[facility] ([id number])[address] [place] [address] 29923 Calcium [Mass/Vol] 8.3 mg/dL Low 8.5-10.5 [facility] Comment on above: Performed By: #### C SURAJ SMALLS ####[facility] ([id number])[address] [place] [address] [place] [address] Chloride [Moles/Vol] 107 mmol/L Normal 98-109 [facility] Comment on above: Performed By: #### C SURAJ SMALLS ####[facility] ([id number])[address] [place] [address] 28655 CO2 [Moles/Vol] 21 mmol/L Low 22-32 [facility] Comment on above: Performed By: #### C SURAJ SMALLS ####[facility] ([id number])[address] [place] [address] [place] [address] Creatinine [Mass/Vol] 0.81 mg/dL Normal 0.70-1.20 [facility] Comment on above: Result Comment: METH OD TRACEABLE TO IDMS STANDARD Performed By: #### C MARIANO SMALLSA ####[facility] ([id number])[address] [place] [address] 31572 GFR/1.73 sq M.predicted among non-blacks MDRD (S/P/Bld) [Vol rate/Area] 89 mL/min/{1.73_m2} Normal >59 [facility] Comment on above: Result Comment: Reported eGFR is based on the CKD-EPI 2020 equation that does not use a race coefficient. Performed By: #### C SERINA, CBCA ####[facility] ([id number])[address] [place] [address] 48044 Glucose [Mass/Vol] 125 mg/dL High 65-99 [facility] Comment on above: Performed By: #### C SERINA, CBCA ####[facility] ([id number])[address] [place] [address] 15231 Potassium [Moles/Vol] 4.0 mmol/L Normal 3.5-5.0 [facility] Comment on above: Result Comment: SPEC IMEN HEMOLYZED, RESULTS INCREASED Performed By: #### C SERINA, CBCA ####[facility] ([id number])[address] [place] [address] 30198 Protein [Mass/Vol] 6.0 g/dL Normal 6.0-8.0 [facility] Comment on above: Performed By: #### C SERINA, CBCA ####[facility] ([id number])[address] [place] [address] 40798 Sodium [Moles/Vol] 137 mmol/L Normal 134-146 [facility] Comment on above: Performed By: #### C SERINA, CBCA ####[facility] ([id number])[address] [place] [address] [place] [address] Urea nitrogen [Mass/Vol] 16 mg/dL Normal 5-27 [facility] Comment on above: Performed By: #### C SERINA, CBCA ####[facility] ([id number])[address] [place] [address] [place] [address] Calcium.ionized (Bld) [Moles /Vol]on 04-19-2024 PORTABLE ICA 4.6 mg/dL Normal 4.5-5.3 [facility] Comment on above: Performed By: #### 1 994-3 ####[facility] ([id number])[address] [place] [address] 75[address] CBC AND AUTO DIFFon 04-18- 24 ABSOLUTE BASOPHIL 0.1 X10E9/L Normal 0.0-0.2 [facility] Comment on above: Performed By: #### C BCA, CMP ####[facility] ([id number])[address] [place] [address] 68838#### [id number] ####[facility] ([id number])[address] [place] [address], [address] [place] [address] ABSOLUTE NEUTROPHIL 2.7 X10E9/L Normal 1.5-6.6 [facility] Comment on above: Performed By: #### C BCA, CMP ####[facility] ([id number])[address] [place] [address] 65770#### 69710-4 ####[facility] ([id number])[address] [facility], [address] [place] [address] 56062 Basophils/100 WBC (Bld) 0.9 % Normal [facility] Comment on above: Performed By: #### C BCA, CMP ####[facility] ([id number])[address] [place] [address] 21248#### 49424-1 ####[facility] ([id number])[address] [facility], [address] [place] [address] 61003 Eosinophils (Bld) [#/Vol] 0.2 10*3/uL Normal 0.0-0.4 [facility] Comment on above: Performed By: #### C BCA, CMP ####[facility] ([id number])[address] [place] [address] 17610#### 66661-2 ####[facility] ([id number])[address], [address], [place] [address] Eosinophils/100 WBC (Bld) 4.1 % Normal [facility] Comment on above: Performed By: #### C BCA, CMP ####[facility] ([id number])[address] [place] [address] 44172#### 40548-8 ####[facility] ([id number])[address], [address], [place] [address] Erythrocyte distribution width (RBC) [Ratio] 13.8 % Normal 11.5-15.0 [facility] Comment on above: Performed By: #### C BCA, CMP ####[facility] ([id number])[address] [place] [address] 59072#### 77563-4 ####[facility] ([id number])[address], [address] [place] [address] 86626 Hematocrit (Bld) [Volume fraction] 41.2 % Normal 39-49 [facility] Comment on above: Performed By: #### C BCA, CMP ####[facility] ([id number])[address] [place] [address] 52821#### 40534-9 ####[facility] ([id number])[address], [address], [place] [address] Hemoglobin (Bld) [Mass/Vol] 14.1 g/dL Normal 13.0-17.0 [facility] Comment on above: Performed By: #### C BCA, CMP ####[facility] ([id number])[address] [place] [address] 74861#### 54758-1 ####[facility] ([id number])[address], [address] [place] [address] 65808 Lymphocytes (Bld) [#/Vol] 1.9 10*3/uL Normal 1.0-3.5 [facility] Comment on above: Performed By: #### C BCA, CMP ####[facility] ([id number])[address] [place] [address] 63387#### 26156-4 ####[facility] ([id number])[address] [address] [place] [address] 09387 Lymphocytes/100 WBC (Bld) 35.6 % Normal [facility] Comment on above: Performed By: #### C BCA, CMP ####[facility] ([id number])[address] [place] [address] 01710#### 21644-7 ####[facility] ([id number])[address] [address] [place] [address] 21253 MCH (RBC) [Entitic mass] 31.7 pg Normal 27-34 [facility] Comment on above: Performed By: #### C BCA, CMP ####[facility] ([id number])[address] [place] [address] 51094#### 13734-8 ####[facility] ([id number])[address] [address] [place] [address] 29886 MCHC (RBC) [Mass/Vol] 34.2 g/dL Normal 32-36 [facility] Comment on above: Performed By: #### C BCA, CMP ####[facility] ([id number])[address] [place] [address] 83305#### 76979-4 ####[facility] ([id number])[address] [address] [place] [address] 44764 MCV (RBC) [Entitic vol] 93 fL Normal 80-100 [facility] Comment on above: Performed By: #### C BCA, CMP ####[facility] ([id number])[address] [place] [address] 25762#### 91535-4 ####[facility] ([id number])[address], [address] [place] [address] Monocytes (Bld) [#/Vol] 0.5 10*3/uL Normal 0-0.9 [facility] Comment on above: Performed By: #### C BCA, CMP ####[facility] ([id number])[address] [place] [address] 51732#### 59554-9 ####[facility] ([id number])[address], [address], [place] [address] Monocytes/100 WBC (Bld) 9.4 % Normal [facility] Comment on above: Performed By: #### C BCA, CMP ####[facility] ([id number])[address] [place] [address] 06410#### 59447-7 ####[facility] ([id number])[address], [address], [place] [address] Neutrophils/100 WBC (Bld) 50.0 % Normal [facility] Comment on above: Performed By: #### C BCA, CMP ####[facility] ([id number])[address] [place] [address] 76615#### 66780-2 ####[facility] ([id number])[address], [address], [place] [address] Platelet mean volume (Bld) [Entitic vol] 8.2 fL Normal 7-12 [facility] Comment on above: Performed By: #### C BCA, CMP ####[facility] ([id number])[address] [place] [address] 97427#### 73052-7 ####[facility] ([id number])[address], [address] [place] [address] 71348 Platelets (Bld) [#/Vol] 159 10*3/uL Normal 150-450 [facility] Comment on above: Performed By: #### C BCA, CMP ####[facility] ([id number])[address] [place] [address] 55697#### 15999-6 ####[facility] ([id number])0 [facility], [address] [place] [address] 41235 RBC COUNT 4.45 X10E12/L Normal 4.10-5.70 [facility] Comment on above: Performed By: #### C BCA, CMP ####[facility] ([id number])[address] [place] [address] 72745#### 79488-7 ####[facility] ([id number])0 [facility], [address] [place] [address] 09099 WBC (Bld) [#/Vol] 5.4 10*3/uL Normal 4.0-11.0 [facility] Comment on above: Performed By: #### C BCA, CMP ####[facility] ([id number])[address] [place] [address] 85672#### [id number] ####[facility] ([id number])[address], [address] [place] [address] 59541 COMPREHENSIVE METABOLIC PANE Jarett 04-18-2024 Albumin [Mass/Vol] 3.3 g/dL Normal 3.2-5.3 [facility] Comment on above: Performed By: #### C BCA, CMP ####[facility] ([id number])[address] [place] [address] 76956#### 24956-4 ####[facility] ([id number])[address], [address], [place] [address] ALP [Catalytic activity/Vol] 67 U/L Normal 39-130 [facility] Comment on above: Performed By: #### C BCA, CMP ####[facility] ([id number])[address] [place] [address] 87068#### 35112-9 ####[facility] ([id number])[address], [address], [place] [address] ALT [Catalytic activity/Vol] 18 U/L Normal 0-40 [facility] Comment on above: Performed By: #### C BCA, CMP ####[facility] ([id number])[address] [place] [address] 99377#### 59050-0 ####[facility] ([id number])[address], [address], [place] [address] Anion gap [Moles/Vol] 7 mmol/L Normal 5-15 [facility] Comment on above: Performed By: #### C BCA, CMP ####[facility] ([id number])[address] [place] [address] 44925#### 50364-3 ####[facility] ([id number])[address], [address], [place] [address] AST [Catalytic activity/Vol] 17 U/L Normal 0-41 [facility] Comment on above: Performed By: #### C BCA, CMP ####[facility] ([id number])[address] [place] [address] 63033#### 67169-8 ####[facility] ([id number])[address], [address], [place] [address] Bilirubin [Mass/Vol] 0.8 mg/dL Normal 0.3-1.2 [facility] Comment on above: Performed By: #### C BCA, CMP ####[facility] ([id number])[address] [place] [address] 49557#### 05904-3 ####[facility] ([id number])[address], [place] [address] Calcium [Mass/Vol] 8.2 mg/dL Low 8.5-10.5 [facility] Comment on above: Performed By: #### C BCA, CMP ####[facility] ([id number])[address] [place] [address] 99019#### 78679-3 ####[facility] ([id number])[address], [address], [place] [address] Chloride [Moles/Vol] 108 mmol/L Normal 98-109 [facility] Comment on above: Performed By: #### C BCA, CMP ####[facility] ([id number])[address] [place] [address] 39874#### 91352-0 ####[facility] ([id number])[address], [place] [address] CO2 [Moles/Vol] 23 mmol/L Normal 22-32 [facility] Comment on above: Performed By: #### C BCA, CMP ####[facility] ([id number])[address] [place] [address] 48797#### 57773-6 ####[facility] ([id number])[address], [address], [place] [address] Creatinine [Mass/Vol] 0.75 mg/dL Normal 0.70-1.20 [facility] Comment on above: Result Comment: METH OD TRACEABLE TO IDMS STANDARD Performed By: #### C BCA, CMP ####[facility] ([id number])[address] [place] [address] 40292#### 01212-7 ####[facility] ([id number])[address], [address] [address] eGFR (CKD-EPI) NON-RACE DEPENDENT >90 Normal >59 [facility] Comment on above: Result Comment: Reported eGFR is based on the CKD-EPI 2020 equation that does not use a race coefficient. Performed By: #### C BCA, CMP ####[facility] ([id number])[address] [place] [address] 44513#### 09794-2 ####[facility] ([id number])[address] [facility], [address] [place] [address] 82417 Glucose [Mass/Vol] 110 mg/dL High 65-99 [facility] Comment on above: Performed By: #### C BCA, CMP ####[facility] ([id number])[address] [place] [address] 37320#### 00941-1 ####[facility] ([id number])[address] [facility], [address] [place] [address] 98350 Potassium [Moles/Vol] 3.5 mmol/L Normal 3.5-5.0 [facility] Comment on above: Performed By: #### C BCA, CMP ####[facility] ([id number])[address] [place] [address] 18581#### 85413-3 ####[facility] ([id number])[address], [address] [place] [address] 23582 Protein [Mass/Vol] 5.9 g/dL Low 6.0-8.0 [facility] Comment on above: Performed By: #### C BCA, CMP ####[facility] ([id number])[address] [place] [address] 18181#### 89579-6 ####[facility] ([id number])[address] [address] [place] [address] 14482 Sodium [Moles/Vol] 138 mmol/L Normal 134-146 [facility] Comment on above: Performed By: #### C BCA, CMP ####[facility] ([id number])[address] [place] [address] 31405#### 90958-2 ####[facility] ([id number])[address] [facility] [address] [place] [address] 51075 Urea nitrogen [Mass/Vol] 16 mg/dL Normal 5-27 [facility] Comment on above: Performed By: #### Alessandro BCA, CMP ####[facility] ([id number])[address] [place] [address] 85555#### 45896-5 ####[facility] ([id number])[address], [address] [place] [address] 56285 Lipid 1996 panelon 4 Cholesterol [Mass/Vol] 117 mg/dL Low 150-200 [facility] Comment on above: Performed By: #### Alessandro BCA, CMP ####[facility] ([id number])[address] [place] [address] 60649#### 95575-6 ####[facility] ([id number])[address] [address] Cholesterol in HDL [Mass/Vol] 28 mg/dL Low >39 [facility] Comment on above: Result Comment: HDL <40 mg/dL - High Risk HDL > or = 40mg/dL- Desirable HDL >60 mg/dL - Negative Risk Performed By: #### C BCA, CMP ####[facility] ([id number])[address] [place] [address] 75065#### 84309-4 ####[facility] ([id number])[address], [address] [place] [address] 70201 Cholesterol in LDL [Mass/Vol] 35 mg/dL Normal <130 [facility] Comment on above: Result Comment: LDL <100 mg/dL - Desirable LDL >160 mg/dL - High Risk Performed By: #### C BCA, CMP ####[facility] ([id number])[address] [place] [address] 59582#### 65939-5 ####[facility] ([id number])[address], [address] [place] [address] 65547 Cholesterol in VLDL [Mass/Vol] 54 mg/dL High 0-30 [facility] Comment on above: Performed By: #### C BCA, CMP ####[facility] ([id number])[address] [place] [address] 96606#### 27430-7 ####[facility] ([id number])[address], [address] [place] [address] 76410 CHOLESTEROL:HDL 4.2 Normal 1.0-5.0 [facility] Comment on above: Performed By: #### C BCA, CMP ####[facility] ([id number])[address] [place] [address] 09567#### 51609-2 ####[facility] ([id number])[address], [address] [address] Triglyceride [Mass/Vol] 270 mg/dL High 27-150 [facility] Comment on above: Performed By: #### C BCA, CMP ####[facility] ([id number])[address] [place] [address] 25215#### 50483-5 ####[facility] ([id number])[address], [address], [place] [address] POTASSIUMon 04-18-2024 Potassium [Moles/Vol] 4.1 mmol/L Normal 3.5-5.0 [facility] Comment on above: Performed By: #### 2 823-3 ####[facility] ([id number])[address] [place] [address] 94428 BASIC METABOLIC PANLon 04-17 Anion gap [Moles/Vol] 5 mmol/L Normal 5-15 [facility] Comment on above: Performed By: #### C BCA, BMP, PINR, 80047-1, 12957-5, 3016-3, 3024-7 #### [facility] ([id number]) [address] [place] [address] 18574 #### HA1C #### [facility] ([id number]) [address], [address] [place] [address] Calcium [Mass/Vol] 8.2 mg/dL Low 8.5-10.5 [facility] Comment on above: Performed By: #### C BCA, BMP, PINR, 74849-0, 88668-2, 3016-3, 3024-7 #### [facility] ([id number]) [address] [place] [address] 45752 #### HA1C #### [facility] ([id number]) [address], [address] [place] [address] Chloride [Moles/Vol] 105 mmol/L Normal 98-109 [facility] Comment on above: Performed By: #### C BCA, BMP, PINR, 28756-4, 42081-1, 3016-3, 302-7 #### [facility] ([id number]) [address] [place] [address] #### HA1C #### [facility] ([id number]) [address], [address] [place] [address] CO2 [Moles/Vol] 26 mmol/L Normal 22-32 [facility] Comment on above: Performed By: #### C BCA, BMP, PINR, 47240-8, 24727-0, 3016-3, 3024-7 #### [facility] ([id number]) [address] [place] [address] #### HA1C #### [facility] ([id number]) [address], [address] [place] [address] Creatinine [Mass/Vol] 0.97 mg/dL Normal 0.70-1.20 [facility] Comment on above: Result Comment: METH OD TRACEABLE TO IDMS STANDARD Performed By: #### C BCA, BMP, PINR, 24010-9, 65582-3, 3016-3, 3023-7 #### [facility] ([id number]) [address] [place] [address] #### HA1C #### [facility] ([id number]) [address], [address] [place] [address] GFR/1.73 sq M.predicted among non-blacks MDRD (S/P/Bld) [Vol rate/Area] 78 mL/min/{1.73_m2} Normal >59 [facility] Comment on above: Result Comment: Reported eGFR is based on the CKD-EPI 2020 equation that does not use a race coefficient. Performed By: #### C BCA, BMP, PINR, 48081-4, 74723-8, 3016-3, 3024-7 #### [facility] ([id number]) [address] [place] [address] #### HA1C #### [facility] ([id number]) [address], [address] [place] [address] Glucose [Mass/Vol] 108 mg/dL High 65-99 [facility] Comment on above: Performed By: #### C BCA, BMP, PINR, 85164-7, 56050-8, 3016-3, 3024-7 #### [facility] ([id number]) [address] [place] [address] #### HA1C #### [facility] ([id number]) [address], [address] [place] [address] Potassium [Moles/Vol] 3.7 mmol/L Normal 3.5-5.0 [facility] Comment on above: Performed By: #### C BCA, BMP, PINR, 12153-6, 16521-5, 3016-3, 3024-7 #### [facility] ([id number]) [address] [place] [address] #### HA1C #### [facility] ([id number]) [address], [address] [place] [address] Sodium [Moles/Vol] 136 mmol/L Normal 134-146 [facility] Comment on above: Performed By: #### C BCA, BMP, PINR, 54089-3, 92736-6, 3016-3, 3024-7 #### [facility] ([id number]) [address] [place] [address] 28641 #### HA1C #### [facility] ([id number]) [address], [address] [place] [address] Urea nitrogen [Mass/Vol] 23 mg/dL Normal 5-27 [facility] Comment on above: Performed By: #### C BCA, BMP, PINR, 56856-5, 67872-1, 301-3, 3023-7 #### [facility] ([id number]) [address] [place] [address] 77791 #### HA1C #### [facility] ([id number]) [address], [address] [place] [address] CBC AND AUTO DIFFon 04-17-20 ABSOLUTE BASOPHIL 0.0 X10E9/L Normal 0.0-0.2 [facility] Comment on above: Performed By: #### C BCA, BMP, PINR, 27851-8, 17088-0, 3015-3, 7 #### [facility] ([id number]) [address] [place] [address] 00778 #### HA1C #### [facility] ([id number]) [address], [address] [place] [address] ABSOLUTE NEUTROPHIL 2.4 X10E9/L Normal 1.5-6.6 [facility] Comment on above: Performed By: #### C BCA, BMP, PINR, 36497-5, 72831-5, 3015-3, 7 #### [facility] ([id number]) [address] [place] [address] 97216 #### HA1C #### [facility] ([id number]) [address], [address] [place] [address] Basophils/100 WBC (Bld) 0.8 % Normal [facility] Comment on above: Performed By: #### C BCA, BMP, PINR, 20107-1, 14300-5, 3015-3, 7 #### [facility] ([id number]) [address] [place] [address] 37365 #### HA1C #### [facility] ([id number]) [address], [address] [place] [address] Eosinophils (Bld) [#/Vol] 0.2 10*3/uL Normal 0.0-0.4 [facility] Comment on above: Performed By: #### C BCA, BMP, PINR, 67070-1, 00514-7, 3016-3, 3023-7 #### [facility] ([id number]) [address] [place] [address] 11580 #### HA1C #### [facility] ([id number]) [address] [facility], [address] [place] [address] Eosinophils/100 WBC (Bld) 4.1 % Normal [facility] Comment on above: Performed By: #### C BCA, BMP, PINR, 48910-3, 13502-6, 6-3, 3024-02 #### [facility] ([id number]) [address] [place] [address] 54024 #### HA1C #### [facility] ([id number]) [address], [address] [place] [address] Erythrocyte distribution width (RBC) [Ratio] 13.6 % Normal 11.5-15.0 [facility] Comment on above: Performed By: #### C BCA, BMP, PINR, 39575-4, 76597-9, 3015-3, 7 #### [facility] ([id number]) [address] [place] [address] 13517 #### HA1C #### [facility] ([id number]) [address], [address] [place] [address] Hematocrit (Bld) [Volume fraction] 41.0 % Normal 39-49 [facility] Comment on above: Performed By: #### C BCA, BMP, PINR, 86543-8, 57534-1, 3016-3, 3024-02 #### [facility] ([id number]) [address] [place] [address] 07623 #### HA1C #### [facility] ([id number]) [address], [address] [place] [address] Hemoglobin (Bld) [Mass/Vol] 14.0 g/dL Normal 13.0-17.0 [facility] Comment on above: Performed By: #### C BCA, BMP, PINR, 48587-2, 91681-8, 3016-3, 302-7 #### [facility] ([id number]) [address] [place] [address] 51421 #### HA1C #### [facility] ([id number]) [address], [address] [place] [address] Lymphocytes (Bld) [#/Vol] 2.3 10*3/uL Normal 1.0-3.5 [facility] Comment on above: Performed By: #### C BCA, BMP, PINR, 61041-1, 34289-8, 3016-3, 7 #### [facility] ([id number]) [address] [place] [address] 34077 #### HA1C #### [facility] ([id number]) [address], [address] [place] [address] Lymphocytes/100 WBC (Bld) 41.5 % Normal [facility] Comment on above: Performed By: #### C BCA, BMP, PINR, 24528-0, 61326-4, 3016-3, 3027 #### [facility] ([id number]) [address] [place] [address] 75970 #### HA1C #### [facility] ([id number]) [address], [address] [place] [address] MCH (RBC) [Entitic mass] 31.7 pg Normal 27-34 [facility] Comment on above: Performed By: #### C BCA, BMP, PINR, 60460-0, 91895-6, 3016-3, 7 #### [facility] ([id number]) [address] [place] [address] 58796 #### HA1C #### [facility] ([id number]) [address] [facility], [address] [place] [address] MCHC (RBC) [Mass/Vol] 34.1 g/dL Normal 32-36 [facility] Comment on above: Performed By: #### C BCA, BMP, PINR, 70875-6, 60658-4, 3015-3, 7 #### [facility] ([id number]) [address] [place] [address] 01443 #### HA1C #### [facility] ([id number]) [address] [facility], [address] [place] [address] MCV (RBC) [Entitic vol] 93 fL Normal 80-100 [facility] Comment on above: Performed By: #### C BCA, BMP, PINR, 34582-8, 62319-2, 3015-3, 7 #### [facility] ([id number]) [address] [place] [address] 59578 #### HA1C #### [facility] ([id number]) [address] [facility], [address] [place] [address] Monocytes (Bld) [#/Vol] 0.5 10*3/uL Normal 0-0.9 [facility] Comment on above: Performed By: #### C BCA, BMP, PINR, 65230-5, 34906-8, 3016-3, 3023-7 #### [facility] ([id number]) [address] [place] [address] [place] [address] #### HA1C #### [facility] ([id number]) [address] [facility], [address] [place] [address] Monocytes/100 WBC (Bld) 9.9 % Normal [facility] Comment on above: Performed By: #### C BCA, BMP, PINR, 38183-9, 49994-9, 3016-3, 302-7 #### [facility] ([id number]) [address] [place] [address] 26639 #### HA1C #### [facility] ([id number]) [address] [address] Neutrophils/100 WBC (Bld) 43.7 % Normal [facility] Comment on above: Performed By: #### C BCA, BMP, PINR, 40005-1, 38396-1, 6-3, 7 #### [facility] ([id number]) [address] [place] [address] 37128 #### HA1C #### [facility] ([id number]) [address] [facility], [address] [place] [address] Platelet mean volume (Bld) [Entitic vol] 8.2 fL Normal 7-12 [facility] Comment on above: Performed By: #### C BCA, BMP, PINR, 49882-2, 73167-7, 3015-3, 7 #### [facility] ([id number]) [address] [place] [address] 51849 #### HA1C #### [facility] ([id number]) [address] [facility], [address] [place] [address] Platelets (Bld) [#/Vol] 150 10*3/uL Normal 150-450 [facility] Comment on above: Performed By: #### C BCA, BMP, PINR, 91058-2, 92139-4, 3016-3, 3024-7 #### [facility] ([id number]) [address] [place] [address] 11206 #### HA1C #### [facility] ([id number]) [address], [address] [place] [address] RBC COUNT 4.41 X10E12/L Normal 4.10-5.70 [facility] Comment on above: Performed By: #### C BCA, BMP, PINR, 30172-4, 60753-2, 3016-3, 3024-7 #### [facility] ([id number]) [address] [place] [address] 32622 #### HA1C #### [facility] ([id number]) [address], [address] [place] [address] WBC (Bld) [#/Vol] 5.4 10*3/uL Normal 4.0-11.0 [facility] Comment on above: Performed By: #### C BCA, BMP, PINR, 95007-8, 90572-5, 3016-3, 3024-7 #### [facility] ([id number]) [address] [place] [address] 48691 #### HA1C #### [facility] ([id number]) [address], [address] [place] [address] CT CTA CAROTIDon 04-17-[address] CTA CAROTID History: Neuro deficit, acute, stroke suspected. Slurred speech Exam/Technique: CT angiogram performed following intravenous administration of 100 mL of Omnipaque 350. Coronal and sagittal and 3-D volume rendered maximum intensity projection images generated and reviewed under concurrent physician supervision. Automated exposure control utilized. The [place] Citizen Symptomatic Carotid Endarterectomy Trial (NASCET) method for [...] Armenta MD on 04/17/2024 9:08 AM Normal [facility] CT CTA HEADon 04-17-2024 CT CTA [...] posterior cerebral arteries. Mild narrowing right P2 GEOCHEMICAL MANAGER. Unremarkable vertebral, basilar arteries. 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 Unremarkable appearance of the orbits, visualized suprahyoid neck, scalp, brain parenchyma [which is suboptimally assessed]. Impression: No acute large vessel occlusion the major kiana of Mtz arterial structures. If there is persistent concern for ischemia, recommend MR. All CT scans at this facility use dose modulation, iterative reconstruction, and/or weight based dosing when appropriate to reduce radiation dose to as low as reasonably achievable. Finalized by Lázaro Solomon MD on 04/17/2024 9:00 AM Normal [facility] FREE T4on 04-17-2024 Free T4 [Mass/Vol] 0.91 ng/dL Normal 0.61-1.60 [facility] Comment on above: Performed By: #### C BCA, BMP, PINR, 52186-4, 85159-0, 3016-3, 3024-7 #### [facility] ([id number]) [address] [place] [address] 18936 #### HA1C #### [facility] ([id number]) [address] [facility], [address] [place] [address] Glucose Glucometer (BldC) [M ass/Vol]on 04-17-2024 Glucose [Mass/Vol] 94 mg/dL Normal 65-99 [facility] HGB A1C (GLYCO-HGB)on 2023 Glucose [Mass/Vol] 134 mg/dL Normal [facility] Comment on above: Performed By: #### C BCA, BMP, PINR, 18817-2, 79093-5, 3016-3, 3024-7 ####[facility] ([id number])[address] [place] [address] 83392#### HA1C ####[facility] ([id number])[address] [facility], [address] [place] [address] HbA1c (Bld) [Mass fraction] 6.3 % High 4.4-5.6 [facility] Comment on above: Result Comment: NOTE ADA Guidelines Result HgbA1c Normal : less than 5.7 % Prediabetes : 5.7 % to 6.4 % Diabetes : > 6.4 % Use with caution in patients with abnormal hemoglobin variants as the half-life of red blood cells and in vivo glycation rates are affected. Performed By: #### C BCA, BMP, PINR, 73363-2, 04999-2, 3016-3, 3024-7 ####[facility] ([id number])[address] [place] [address] 98202#### HA1C ####[facility] ([id number])[address] [address] Lipid 1996 panelon 4 Cholesterol [Mass/Vol] 121 mg/dL Low 150-200 [facility] Comment on above: Performed By: #### 8 9579-7 ####[facility] ([id number])[address] [place] [address] 04582#### 44515-1, 59829-0, 32681-6 ####[facility] ([id number])[address] [address] Cholesterol in HDL [Mass/Vol] 34 mg/dL Low >39 [facility] Comment on above: Result Comment: HDL <40 mg/dL - High Risk HDL > or = 40mg/dL- Desirable HDL >60 mg/dL - Negative Risk Performed By: #### 8 9579-7 ####[facility] ([id number])[address] [place] [address] 21618#### 94177-7, 66862-3, 11874-9 ####[facility] ([id number])[address] [address] Cholesterol in LDL [Mass/Vol] 43 mg/dL Normal <130 [facility] Comment on above: Result Comment: LDL <100 mg/dL - Desirable LDL >160 mg/dL - High Risk Performed By: #### 8 9579-7 ####[facility] ([id number])[address] [place] [address] 56411#### 55579-4, 78171-8, 14392-3 ####[facility] ([id number])[address] [facility], [address] [place] [address] Cholesterol in VLDL [Mass/Vol] 44 mg/dL High 0-30 [facility] Comment on above: Performed By: #### 8 9579-7 ####[facility] ([id number])[address] [place] [address] 11370#### 64062-4, 71542-8, 19820-7 ####[facility] ([id number])[address] [facility], [address] [place] [address] CHOLESTEROL:HDL 3.6 Normal 1.0-5.0 [facility] Comment on above: Performed By: #### 8 9579-7 ####[facility] ([id number])[address] [place] [address] 65274#### 48032-0, 24017-8, 30434-3 ####[facility] ([id number])[address] [facility], [address] [place] [address] Triglyceride [Mass/Vol] 218 mg/dL High 27-150 [facility] Comment on above: Performed By: #### 8 9579-7 ####[facility] ([id number])[address] [place] [address] 42198#### 65773-5, 45100-1, 01252-8 ####[facility] ([id number])[address] [facility], [address] [place] [address] MR BRAIN WO CONTon MR BRAIN WO CONT MR BRAIN WO [...] midline shift or extra axial fluid collection. Xeds-yh-qoarafoo central greater than peripheral volume loss. Partially [...] Chi Hendrix on 04/17/2024 12:22 PM Normal [facility] Nuclear Ab IA Ql (S)on 04-17 [place] Screen w/reflex Negative Normal NEG [facility] Comment on above: Result Comment: Testing performed using multiplex flow immunoassay. Eleven different antigens associated with systemic autoimmune diseases (dsDNA,Sm,Sm/SKIN PEELING MACHINE OPERATOR,SKIN PEELING MACHINE OPERATOR,Chromatin, SSA,SSB,Vesna-1,Scl70,Ribo P,Centromere B) are included in this screening test. Performed By: #### 8 9579-7 ####[facility] ([id number])[address] [place] [address] 93339#### 52844-9, 41080-1, 21082-9 ####[facility] ([id number])[address], [address] [place] [address] PROTIME AND INRon 04-17-2024 INR Coag (PPP) [Relative time] 1.2 {INR} High 0.8-1.1 [facility] Comment on above: Performed By: #### C BCA, BMP, PINR, 43793-5, 86238-7, 3016-3, 3023-7 #### [facility] ([id number]) [address] [place] [address] 42434 #### HA1C #### [facility] ([id number]) [address], [address] [place] [address] PT Coag (PPP) [Time] 13.6 s High 9.8-13.2 [facility] Comment on above: Result Comment: NEW REFERENCE RANGE Performed By: #### C BCA, BMP, PINR, 62278-1, 58497-6, 3015-3, 3027 #### [facility] ([id number]) [address] [place] [address] 81350 #### HA1C #### [facility] ([id number]) [address] [facility], [address] [place] [address] Rheumatoid factor Nephelomet ry Qn (S)on 04-17-2024 RHEUMATOID FACTOR 36 IU/mL High <20 [facility] Comment on above: Performed By: #### 8 9579-7 ####[facility] ([id number])[address] [place] [address] 60777#### 05325-0, 76499-2, 63560-7 ####[facility] ([id number])[address] [facility], [address] [place] [address] TSH Qnon 04-17-2024 TSH 1.23 uIU/mL Normal 0.49-4.67 [facility] Comment on above: Performed By: #### C BCA, BMP, PINR, 55393-9, 01399-3, 3016-3, 7 #### [facility] ([id number]) [address] [place] [address] 46108 #### HA1C #### [facility] ([id number]) [address], [address] [place] [address] Troponin I.cardiac High sens itivity method [Mass/Vol]on 04-17-2024 1 HOUR TROP I, HIGH SENSITIVITY 8 ng/L Normal <21 [facility] Comment on above: Performed By: #### 8 9579-7 ####[facility] ([id number])[address] [place] [address] 02210#### 04061-8, 50088-2, 51940-2 ####[facility] ([id number])[address] [facility], [address] [place] [address] 25468 TROPONIN I, HIGH SENSITIVITY 7 ng/L Normal <21 [facility] Comment on above: Performed By: #### C BCA, BMP, PINR, 45346-0, 99442-1, 3016-3, 3024-7 #### [facility] ([id number]) [address] [place] [address] 25858 #### HA1C #### [facility] ([id number]) [address] [facility], [address] [place] [address] aPTT Coag (PPP) [Time]on aPTT Coag (Bld) [Time] 29 s Normal 26-37 [facility] Comment on above: Result Comment: NEW REFERENCE RANGE Performed By: #### C BCA, BMP, PINR, 30015-8, 66709-5, 3016-3, 3024-7 #### [facility] ([id number]) [address] [place] [address] 94869 #### HA1C #### [facility] ([id number]) [address] [facility], [address] [place] [address] Urology Office/Clinic Noteon 03-20-2024 Urology Office/Clinic Note Urology Office/Clinic Note Chief Complaint ER f/u *Urinary Retention HPI Staff PRW pt Last seen in our office by INEZ 02/11/24 DX: BPH, Urethral Stricture, Gross Hematuria & UTI PVR at that time 108ml Here today to follow up to [facility] ER 03/11/24 CC: Urinary Retention PVR 230ml. [...] (cc): 02/11/24 - 108 Pt presented to [facility] ER 03/11/24 with UR. PVR >230 cc. [...] long-term bladder health and compliance. We discussed alpha-beatrice medications to help with urinary symptoms, possible [...] visit. Follo (more content not included)... Normal [facility] Comment on above: Result Comment: [...] APRN, [facility] Primary Care Physician - Bayron Ba MD This Is Your Medications List Contact prescribing physician if questions or concerns aspirin atorvastatin (atorvastatin 40 mg oral tablet) brimonidine ophthalmic (brimonidine ophthalmic 0.2% solution) cetirizine (cetirizine 10 mg Tab) dorzolamide ophthalmic (dorzolamide 2% ophthalmic solution) fluticasone nasal (fluticasone Nasal 0.05 mg/inh [place]) hyoscyamine (hyoscyamine 0.125 mg sublingual Tab) icosapent [...] APRN, [facility] Where: [facility] [place] [address]- You Need to Schedule the Following Appointments [...] fluticasone nasal (fluticasone Nasal 0.05 mg/ inh [place]) instill 1 spray into each nostril once [...] urinary ret (more content not included)... Normal [facility] Coding Summary.on 02-19-2024 Coding Summary. MHEDThgl55JBp7uQy+PG hlYWQ+IH1DOLVuQ79dpE JzgB0aF2EDXZpCXrlfCU JQGNlEInFeqbBlFI9coM NjZXJu IC8+UC3iNNQlCovdtXNy i5I0sSV9R61cfn9pLHwj tQW0HEZuPxCthrwoh2oi hBp7PBnnOfyoKlAm NLXplH06MOU1gJ33Mn63 jIKdlBUou6woySn3HtAb LUDeEIQ3fFqvTQzoe8Xi KOObX58glZPqb7O4 IGNvbGxhcHNlOyBlbXB0 nB0zJSnczzsxe1laympu Ste5py07uCRtt9A5oZX1 B2IyqfA5WGXcnTKm IwqoeQYJfQ0qyhucu7vx hxexBtShHWBnZZa1DAa0 QRYuuLfeKqFrWG96LXV0 ZVNjcsJpM0RxGYQj bAllQqG5x7G3Dz0EF7QC TjbuE3ZITDIRIDhthJZ+ OI39ch46Y5YcWfxbNve7 JXCoUMN9oLI4iB9u TWUsYXkpn1R4sPT2M0Nf wnTumy0db2utEHYwDMoa W22qpNIvf9T2VULicZM2 LYYudLzeNxXhaB15 Oyc+EKFkyOcpy3NmDgmz q8pic8omgGw8DiwwDHAm riXmwModULO8x2XaEh2g YCGhcKJ9gZR0xY3s VwUkTiY1WOhsA730NhOb jAPiYwzuZ81kD3WosIG+ JXWfBie9YOSuxCdsMX8a E2LkWYGygmvbmDGr kGflRB6xVARxgnvxHXNb dN6bCTWrT5v7HuAuFlV8 DLwsX6NxHUGsjgjgQa12 sC7kTuYyVdZ9BWsi W9HnqeL7VADbyXRsUQnh IKN7G89ph3P1AJKvYATl YTV5lCA1pL8pvFpfteas bGVmdDsgdmVydGlj MSxlQKloK153XCBksMoi PkNvZGluZyBEYXRlOiAg MDYvMjYvMjAyNDwvdGQ+ GAIcLKS9tFeqXDCh wRJsXQggTt1fbEbcsGdu MQ5lCJCzmhbpKDRlzI6a QMFpxVAuxNlwWE4kIASv fclbo541AqMkZRC2 APRkmJLoX9XvhZ8aGeDp WICwTXQmE1LqtOQoYNov K328TGafCtK7ZWUqeeEe S2CoSWJpzAfdTfD3 y6H3Sc9Ys7LvrtckK2Kk mUTzKsLgIqtvMWt4R5Gp PjwvdHI+ST93RTOyDD00 PYx1XVH6gGpaHDbm DCJcA5TapL9jDxVmYMNj ZGRkOyc+PHRhYmxlIHdp ZHRoPScxMDAlJyBzdHls OO0zWf6yTPArWKJy dEakiBQxKxDsq9wcRFWa OPuzOT8ewVcgZ0SpzLH4 KIAal1e6Nt17D18iU1Ha dXA+IXBcmDA1ePN6 zC8fCvBqZsI5IUmqJ187 DxEmySWgCrzqj4vxh3lq pAl1ZhR8HCYgvtOimSqt PGE4e9HrUl92N87i IHdpZHRoPSIxNSUiIHZh cHokke0rwO7zEy6+PGNv hRA6yTA0tL0zAqBjFtY9 RUsqU871OvVheOIe Vogsh2mwn5lntEn3SiNf DREgdrKkhAndUSV2y2Fc Xo72M9CtrYdkc0QqJwj2 js18tNZae3E9eRX1 W3YbMVOakmjvlWSckHyy PL4aPVTwjtqtZEBlkG4o QLFrK8n6VoObJpB4DKet A1QnhdA3WRQryGRi VZKfnDQXaF7ortbgk4ol tvqmZbGkLIKmLEt1QLx5 OCMvmLebTyBkSWE7JmB7 DQL1hUZrtR0maYlg zgvuzB7vTjn+AYL6gQVq gCWUWS1jUvixuJF+PHRk CRS9fLcbZCknUUEsrL0r EHDrJ9t4BdAqGgX0 WOddR9SqanC0WATehZCt IMMbqCRQbF3kmnllh0ok dexjBpGsZPVzSSb3EZr5 LWFsaWduOiBsZWZ0 VmC6RIW5kANnxC0vnXno rvdjoP7fLke+QmlydGgg KSD9EZf9Q6MhPma0PMGb cJwpZK1ggNDtCJuy Lm1byGrrvGgtOI4kGWCd fzaes800IgVwj7smNISb hRHxSEluUGS2H59up0X0 IKPmHXSjCTC0mYN5 jS3zeWvxlbxyzBYhlVgf rvXdzHpmVQfuNUfsE325 AKSkdOnlVqIpLXp6I4Mu Hsl6WYUsfWvzRG7v dHDqEGzoGh5hbAjluJqc HI2qNPNyhclsb677ZtOf g2srRFYwdBYaJQybOYD7 J19iw0A9DQTcMWZv ZGE7wBI9pJ5tbCbgbdpa bGVmdDsgdmVydGljYWwt AAmqW994NMMfmAcvKoYn wSv4W5QaKlx9TFRs ySseCZ0wcVJaFTwdFd9q wTyfkOaeSS5gTZVidhie a130VbKyf0knTBRqcHPr OAntYOQ8W39vd9B8 CLDxKMApNEA8xGA0mM7k bGlnbjogbGVmdDsgdmVy iKonFJmiHIzaI824HALp cDsnPlBhdGllbnQg VLthLBr0H2OkFgkqnAR+ ZV76PHUcIJ86bVGuwXCp g5jmsFb4CzJdYXXyNGG9 vDzcVCrem0VdMZYj W29mvEPnd8Q0UWIkpKnt oJFlHsVafMD6fL6rYGne jvmqb4uymnxsQejuk3ea jx14xY48C88oEDii ZHRoPSIzMCUiIHZhbGln kb3pjY9hGw5+PGNvbCB3 wAG0rV0iLFJbTpT6XFjp H056KlAigEIqBiqf i6cmu2hblYb8HuM1KFAo ojSaePgnZLM5e0PpPm33 D80eBWxwECUmNARfDJDy BZDaeOzwiy2ibO3p Ii8+SKOojOD9tKW3kC9r DcFnWhF6AHchG060GeDh zEEpApdyE65iQ1XtyNQ+ PFXpJad7CKMtrFcc GV1kyQKbMDxeRl7yAFU2 DxJrIeJvQVjzU9RePUTp hegbilzhfII6XUFaAZVh jI97Kz4aoGczSZJw qKIBnN8kstpbr4lbtixq BrNiFFKrWYa1EJk1NYQr xHubRvAtLUJ6KnH4IDK3 yISszY3ylRruuypw eR9zE1JtWYVymaxeRv36 cL3xToZkInC8QSyyXcy+ K2JYJP9JUNCUU007W9Xs Apv6AQFpsXlpXQ1f gYHyWHbcTo9vyNgxfCwo FA3rZWYusdymAODosG2y LJLiaGYntPfjDY7fYUUo tgttd791GfLhCHX5 DZUysXOoU5AtkN5aAsBl AKLlFRCyD6AwmYHsMCar I571KNlvUeQ8RNPngmSl L2KeDMJqlWfuNbB2 r3J8Ph5xBX0mRQ3vDVZu NH28BU00cHFmc6W7nJH3 Z0QvXULwmhiljsfjcXD4 HINnPKLeqM12tEHk KAipGs3de2E2t893VHIu WRBpkZ69Zc1wgTmpCKXx jEZHfA9wdptsv8hfcncj IrQtNSFrWWu6RAr3 GUUzmYnnIvZxJVL7XcF7 XWI6bRVrxB8klIvjbese bH8kHst+ODEgWWVhcnM8 S1AbUia3HJKvrXpe UP4qoSKdHGzrDl8srMcs yZebEA9gAQJjteiuERWr cM9dDFFrlLGsfAdjGM4r MXBmcbqti981YaNd AOH1ZEJzdMBkI8AadJ8k IfKzYHGyGAHkS3RrxQLh FDacD268JXuqHxE8IMQf hnWuY3NjUSIgbHhv TbT1n6Y8Zf8JBBjxJR00 OA81rVZmm5F2lYN5H8Xu UHYrngdslptjiMF7FHCo BGEjjV37qZWbMUdq Cq5kr6B2m922XAWvXQMc jE71Pk7oqWhdKCKniWKW xI9vlwfkh5lgcjwlXkEh YGEdJHw2SNa0SRTi gXljUrOzAXI3XiA4SYM3 pJMvaF4fyScbfnvpcY3w Oyc+QGQqCXKmq8Yqb6Xt ZD90QP69Z0BvDthq dGFibGU+PHRhYmxlIHdp ZHRoPScxMDAlJyBzdHls ID4bDl6fEGZhMSPxaEcx hPYwRvRqg8soHNQq QUceRL9ptQdbM2YutXP5 CARyz5l8Hg76V90vE9Ut dXA+QMOsfRY1lGL6jF9q MxXlIkA5HNjaP517 AqAybYBkEkxsk4bvt2nz fGs4KtOkDKUchwNvlMlm ANU5b6PrDb84X01yUChj ZHRoPSIyMCUiIHZh tNillm8zeY3jKi3+PGNv rBG2sZC2pO8gZrVoHwM6 KOqsF882AwItoZLiJpaz F00cU9OxiWE+PHRy Ckp5GIOybYwhLF2jlRMi TYavIr1sYQB0StErFkBt CEnqC7VpKRXqujxtuogq nZU1NEVkAAHreS31 Ey7rjNoxMx2iVKUqKIJ9 YUIxgDPbY6FqhD8pOvOo UTZgQEYaF3PnlAHhHMkk K553LKexAoY3JVEx evCdP5JaFAGdsOhgLfN2 h4F4Sj7XfLftoAJlFH4m WuWmMKf5S2UlVjv7EDCn uAxuBL4dzBJpGKgt Mz1nfUtnzZvwKX8fOEWb aflnf952QrDyb7cgZCYt nRAbHGyqLKS3Y17it5F8 MGKyUHEyBAU9eTS2 uY8jcYqoepznyOPpzHhq wdMwmScpOZluGIbkI619 AKQbcQgcPzXDPks1S0Ya Wkr2APCwuJbxPK7b iTXjGXaaOj7igZqlgKlt DI6gEIMsgligl966WrNx l4zlLPSpbGOyFVblIID7 U65hm6N9QSLrRRMi AUS5bKA4dH1esUlltatz bGVmdDsgdmVydGljYWwt OIrmV716GUDpsKizAm1G Ocw2V1BfGvb6FYWd iPgdVO0gvEUuKFbfBt1y tXqxyTmtUV8gLGQljhlr j388YpWto6htFDNvoFTs LOaxZJE0T72up6E8 EYOeXKXfJIP6aRC5zB6q bGlnbjogbGVmdDsgdmVy yLmeKAuuECvgT518CAMc cDsnPlBheWVyOjwv dGQ+JS45jk70O8WpEolz Huo0HDDkLQQ4fIL3zS4b HQTwZIbmk1W6rWO6S3Za nvQdmn4dq1yoEFDn OIccY41niHWlr (more content not included)... Normal [facility] C Urineon 02-13-2024 Bacteria identified Cx Nom (U) Microbiology PROCEDURE: Urine Culture [R1] SOURCE: U Random BODY SITE: COLLECTED DATE/TIME: 02/11/2024 10:06 EDT RECEIVED DATE/TIME: 02/11/2024 18:24 EDT START DATE/TIME: 02/11/2024 18:24 EDT FREE TEXT SOURCE: Zoie CLEANING ATTENDANT, INTERNET SOURCER-C, Zoie CLEANING ATTENDANT, INTERNET SOURCER-C, Lazara X Lazara X FINAL REPORTS Final [...] Locations R1: This test was performed at: [facility], [address] [place] [address], [id number] , [place], Normal [facility] Comment on above: Performed By: #### [id number] #### [facility] [address] [place] [id number] Screenson 02-12-2024 Screens [id number] [facility] Ambulatory Visit Summaryon 0 02-11-2024 Ambulatory Visit Summary KYLER RICHARD :1940 Visit Date:02/11/2024 Ambulatory Visit Instructions Your Diagnosis BPH with urinary obstruction Urethral stricture in male UTI (urinary tract infection) Gross hematuria History of colon cancer Your Care Team Attending Physician - Zoie FOX, KIM, Lazara Echavarria Primary Care Physician - Bayron Ba MD This Is Your Medications List [...] Where: [facility] [address], [place] [id number] Medications What How Much When Instructions Unchanged [...] for choosing us for your care. Normal [facility] Patient Educationon 02-11-20 Patient Education Urology [...] these instructions at home: Medicines ? Take zrje-lxs-uvurchp and prescription medicines only as told by [...] the blood stops without treatment. ? Take mcid-vtf-kuuiabz and prescription medicines only as told by your health care provider. ? Drink enough fluid to keep your urine pale yellow. This information is not intended to replace advice given to you by your health care provider. Make sure you discuss any questions you have with your health care provider. Document Revised: 04/12/2021 Document Reviewed: 04/12/2021 [employer] Patient Education ? 2022 [employer] Benign Prostatic Hyperplasia Benign prostatic hyperplasia [...] the nig (more content not included)... Normal [facility]rology Office/Clinic Noteon 02-11-2024 Urology [...] with voice recognition artificial intelligence software, specifically [employer] and or [employer]. Substitutions may have occurred due to the [...] Urnls Dip Stick Auto w/o Microscopy POC 47903 2. Urethral stricture in male (N35.919: Unspecified [...] [facility] [address], [place] [phone] Additional Instructions: Patient Education Hematuria, Adult Benign [...] Rhopressa 0.02% (more content not included)... Normal [facility] Comment on above: Result Comment: Elec tronically Signed By: KIM Lino APRN, Lazara Echavarria\.br\Date and Time Signed: 02/11/24 10:41 EDT COVID/FLU RT-PCRon 3 SARS-CoV-2 (COVID-19) RNA TERRIE+probe Ql (Unsp spec) Positive Shipping Easy Other COVID/FLU RT-PCR Negative [employer] Other XR KNEE RT 3Von 01-23-2023 XR KNEE RT 3V EXAM: XR KNEE RT 3V HISTORY: Osteoarthritis of knee COMPARISON: None TECHNIQUE: 3 views FINDINGS: No acute fracture or dislocation. Moderate to severe degenerative changes. Unremarkable soft tissues. IMPRESSION: Moderate to severe degenerative changes. Electronically authenticated by: CALVIN BARNES Date: 2023-01-23 13:29 Normal [facility] INSULINon 09-25-2022 Insulin 6.0 uIU/mL Normal 2.6-24.9 [facility] Comment on above: Performed By: #### I NSULIN #### [facility] [address] [place] [address] Dr. Wally Zapien BNPon 09-24-2022 Natriuretic peptide B (Bld) [Mass/Vol] 110.0 pg/mL Normal <=1,800.0 [facility] Comment on above: Performed By: #### U RCX #### [facility] [address] [place] [address] Dr. Wally Zapien CBC AUTO DIFFon 09-24-2022 BASO # 0.0 103/ul Normal 0.0-0.1 [facility] Comment on above: Performed By: #### C BC #### [facility] [address] [place] [address] Dr. Wally Zapien Basophils/100 WBC (Bld) 1.0 % Normal 0.2-2.0 [facility] Comment on above: Performed By: #### C BC #### [facility] [address] [place] [address] Dr. Wally Zapien EO # 0.2 103/ul Normal 0.0-0.7 [facility] Comment on above: Performed By: #### C BC #### [facility] [address] [place] [address] Dr. Wally Zapien Eosinophils/100 WBC (Bld) 4.2 % Normal 0.9-7.0 [facility] Comment on above: Performed By: #### C BC #### [facility] [address] [place] [address] Dr. Wally Zapien Erythrocyte distribution width (RBC) [Ratio] 12.5 % Normal 11.0-15.0 [facility] Comment on above: Performed By: #### C BC #### [facility] [address] [place] [address] Dr. Wally Zapien Hematocrit (Bld) [Volume fraction] 43.7 % Normal 42.0-54.0 [facility] Comment on above: Performed By: #### C BC #### [facility] [address] [place] [address] Dr. Wally Zapien Hemoglobin (Bld) [Mass/Vol] 15.4 g/dL Normal 14.0-18.0 [facility] Comment on above: Performed By: #### C BC #### [facility] [address] [place] [address] Dr. Wally Zapien IG # 0.02 10e3/ul Normal 0.00-0.03 [facility] Comment on above: Performed By: #### C BC #### [facility] [address] [place] [address] Dr. Wally Zapien IG % 0.5 % Normal 0.0-0.5 [facility] Comment on above: Performed By: #### C BC #### [facility] [address] [place] [address] Dr. Wally Zapien LYMPH # 1.7 103/ul Normal 1.2-3.8 [facility] Comment on above: Performed By: #### C BC #### [facility] [address] [place] [address] Dr. Wally Zapien Lymphocytes/100 WBC (Bld) 42.6 % Normal 20.5-60.0 [facility] Comment on above: Performed By: #### C BC #### [facility] [address] [place] [address] Dr. Wally Zapien MANUAL DIFF REQ NO Normal [facility] Comment on above: Performed By: #### C BC #### [facility] [address] [place] [address] Dr. Wally Zapien MCH (RBC) [Entitic mass] 31.6 pg Normal 25.9-34.0 [facility] Comment on above: Performed By: #### C BC #### [facility] [address] [place] [address] Dr. Wally Zapien MCHC (RBC) [Mass/Vol] 35.2 g/dL Normal 29.9-35.2 [facility] Comment on above: Performed By: #### C BC #### [facility] [address] [place] [address] Dr. Wally Zapien MCV (RBC) [Entitic vol] 89.5 fL Normal 80.0-94.0 [facility] Comment on above: Performed By: #### C BC #### [facility] [address] [address] [address] Wally Zapien MONO # 0.4 103/ul Normal 0.3-0.8 [facility] Comment on above: Performed By: #### C BC #### [facility] [address] [address] [address] Wally Zapien Monocytes/100 WBC (Bld) 9.2 % Normal 1.7-12.0 [facility] Comment on above: Performed By: #### C BC #### [facility] [address] [address] [address] Wally Zapien NEUT # 1.7 103/ul Normal 1.4-6.5 [facility] Comment on above: Performed By: #### C BC #### [facility] [address] [place] [address] Dr. Wally Zapien Neutrophils/100 WBC (Bld) 42.5 % Critically low 43.0-75.0 [facility] Comment on above: Performed By: #### C BC #### [facility] [address] [place] [address] Dr. Wally Zapien Platelet mean volume (Bld) [Entitic vol] 9.9 fL Normal 9.5-13.5 [facility] Comment on above: Performed By: #### C BC #### [facility] [address] [place] [address] Dr. Wally Zapien PLT 149 103/ul Critically low 150-450 [facility] Comment on above: Performed By: #### C BC #### [facility] [address] [place] [address] Dr. Wally Zapien RBC 4.88 106/ul Normal 4.70-6.10 [facility] Comment on above: Performed By: #### C BC #### [facility] [address] [address] [address] Wally Zapien WBC 4.0 103/ul Normal 4.0-11.0 [facility] Comment on above: Performed By: #### C BC #### [facility] [address] [address] [address] Wally Zapien CULTURE URINEon 09-24-2022 CULTURE URINE Culture Observations: LIGHT GROWTH OF MIXED SKIN GENNA. NO POTENTIAL PATHOGENS SEEN. Normal [facility] Comment on above: Performed By: #### U RCX #### [facility] [address] [address] [address] Wally Zapien FREE THYROXINE INDEX T7on FTI 2.52 Normal 1.30-4.50 [facility] Comment on above: Performed By: #### U RCX #### [facility] [address] [place] [address] Dr. Wally Zapien T3U 36.0 % Normal 33.0-40.0 [facility] Comment on above: Performed By: #### U RCX #### [facility] [address] [place] [address] Dr. Wally Zapien T4 [Mass/Vol] 7.00 ug/dL Normal 4.50-12.10 [facility] Comment on above: Performed By: #### U RCX #### [facility] [address] [place] [address] Dr. Wally Zapien GLYCOHEMOGLOBIN A1Con 2022 ADA RECOMMENDATION SEE BELOW Normal [facility] Comment on above: Result Comment: ADA RECOMMENDED LIMIT 4.0 - 6.0 ADA THERAPEUTIC TARGET < 7.0 ACTION SUGGESTED > 7.0 Performed By: #### A 1C #### [facility] [address] [place] [address] Dr. Wally Zapien Glucose [Mass/Vol] 123 mg/dL Normal [facility] Comment on above: Performed By: #### A 1C #### [facility] [address] [place] [address] Dr. Wally Zapien HbA1c (Bld) [Mass fraction] 5.9 % Normal 4.5-6.2 [facility] Comment on above: Performed By: #### A 1C #### [facility] [address] [place] [address] Dr. Wally Zapien LIPID PROFILEon 09-24-2022 CHOL-HDL RATIO NORM SEE BELOW Normal [facility] Comment on above: Result Comment: 3.3 - 4.4 LOW RISK 4.4 - 7.1 AVERAGE RISK 7.1 - 11.0 MODERATE RISK >11.0 HIGH RISK Performed By: #### U RCX #### [facility] [address] [address] [address] Wally Zapien Cholesterol [Mass/Vol] 117 mg/dL Normal <=200 [facility] Comment on above: Performed By: #### U RCX #### [facility] [address] [address] [address] Wally Zapien Cholesterol in HDL [Mass/Vol] 38 mg/dL Critically low 40-60 [facility] Comment on above: Performed By: #### U RCX #### [facility] [address] [address] [address] Wally Zapien Cholesterol in LDL [Mass/Vol] 32.6 mg/dL Normal [facility] Comment on above: Performed By: #### U RCX #### [facility] [address] [address] [address] Wally Zapien Cholesterol.total/Ch olesterol in HDL [Mass ratio] 3.1 {ratio} Normal [facility] Comment on above: Performed By: #### U RCX #### [facility] [address] [address] [address] Wally Zapien HDL NORMAL > or = 60 mg/dl - LOW CARDIOVASCULAR RISK <40 mg/dl - HIGH CARDIOVASCULAR RISK Normal [facility] Comment on above: Performed By: #### U RCX #### [facility] [address] [address] [address] Wally Zapien LDL CALC NORMAL SEE BELOW Normal [facility] Comment on above: Result Comment: <100 mg/dl OPTIMAL 100 - 129 mg/dl NEAR OR ABOVE OPTIMAL 130 - 159 mg/dl BORDERLINE HIGH 160 - 189 mg/dl HIGH >190 mg/dl VERY HIGH Performed By: #### U RCX #### [facility] [address] [address] [address] Wally Zapien Triglyceride [Mass/Vol] 232 mg/dL Critically high <=150 [facility] Comment on above: Performed By: #### U RCX #### [facility] [address] [place] [address] Dr. Wally Zapien VLDL CALC 46.4 mg/dL Normal [facility] Comment on above: Performed By: #### U RCX #### [facility] [address] [place] [address] Dr. Wally Zapien PROF 14(COMP METB)on 023 Albumin [Mass/Vol] 3.8 g/dL Normal 3.4-5.0 [facility] Comment on above: Performed By: #### B PANTS CLOSER, T7, LIPID, TSH, CMP, URIC #### [facility] [address] [place] [address] Dr. Wally Zapien Albumin/Globulin [Mass ratio] 1.2 {ratio} Normal [facility] Comment on above: Performed By: #### B PANTS CLOSER, T7, LIPID, TSH, CMP, URIC #### [facility] [address] [place] [address] Dr. Wally Zapien ALP [Catalytic activity/Vol] 80 U/L Normal 46-116 [facility] Comment on above: Performed By: #### B PANTS CLOSER, T7, LIPID, TSH, CMP, URIC #### [facility] [address] [place] [address] Dr. Wally Zapien ALT [Catalytic activity/Vol] 34 U/L Normal 16-63 [facility] Comment on above: Performed By: #### B PANTS CLOSER, T7, LIPID, TSH, CMP, URIC #### [facility] [address] [place] [address] Dr. Wally Zapien Anion gap [Moles/Vol] 11.3 mmol/L Normal [facility] Comment on above: Performed By: #### B PANTS CLOSER, T7, LIPID, TSH, CMP, URIC #### [facility] [address] [place] [address] Dr. Wally Zapien AST [Catalytic activity/Vol] 24 U/L Normal 15-37 [facility] Comment on above: Performed By: #### B PANTS CLOSER, T7, LIPID, TSH, CMP, URIC #### [facility] [address] [place] [address] Dr. Wally Zapien Bilirubin [Mass/Vol] 1.0 mg/dL Normal 0.2-1.0 [facility] Comment on above: Performed By: #### B PANTS CLOSER, T7, LIPID, TSH, CMP, URIC #### [facility] [address] [place] [address] Dr. Wally Zapien Calcium [Mass/Vol] 8.5 mg/dL Normal 8.5-10.1 [facility] Comment on above: Performed By: #### B PANTS CLOSER, T7, LIPID, TSH, CMP, URIC #### [facility] [address] [place] [address] Dr. Wally Zapien Chloride [Moles/Vol] 105 mmol/L Normal 98-107 [facility] Comment on above: Performed By: #### B PANTS CLOSER, T7, LIPID, TSH, CMP, URIC #### [facility] [address] [place] [address] Dr. Wally Zapien CO2 [Moles/Vol] 28.6 mmol/L Normal 21.0-32.0 [facility] Comment on above: Performed By: #### B PANTS CLOSER, T7, LIPID, TSH, CMP, URIC #### [facility] [address] [place] [address] Dr. Wally Zapien Creatinine [Mass/Vol] 0.74 mg/dL Normal 0.70-1.30 [facility] Comment on above: Performed By: #### B PANTS CLOSER, T7, LIPID, TSH, CMP, URIC #### [facility] [address] [place] [address] Dr. Wally Zapien EGFR-AF BRUNEIAN >60 Normal >=60 [facility] Comment on above: Performed By: #### B PANTS CLOSER, T7, LIPID, TSH, CMP, URIC #### [facility] [address] [place] [address] Dr. Wally Zapien EGFR-NON AF BRUNEIAN >60 Normal >=60 [facility] Comment on above: Performed By: #### B PANTS CLOSER, T7, LIPID, TSH, CMP, URIC #### [facility] [address] [place] [address] Dr. Wally Zapien Globulin (S) [Mass/Vol] 3.2 g/dL Normal [facility] Comment on above: Performed By: #### B PANTS CLOSER, T7, LIPID, TSH, CMP, URIC #### [facility] [address] [place] [address] Dr. Wally Zapien Glucose [Mass/Vol] 102 mg/dL Normal 74-106 [facility] Comment on above: Performed By: #### B PANTS CLOSER, T7, LIPID, TSH, CMP, URIC #### [facility] [address] [place] [address] Dr. Wally Zapien Potassium [Moles/Vol] 3.9 mmol/L Normal 3.5-5.1 [facility] Comment on above: Performed By: #### B PANTS CLOSER, T7, LIPID, TSH, CMP, URIC #### [facility] [address] [place] [address] Dr. Wally Zapien Protein [Mass/Vol] 7.0 g/dL Normal 6.4-8.2 [facility] Comment on above: Performed By: #### B PANTS CLOSER, T7, LIPID, TSH, CMP, URIC #### [facility] [address] [place] [address] Dr. Wally Zapien Sodium [Moles/Vol] 141 mmol/L Normal 136-145 [facility] Comment on above: Performed By: #### B PANTS CLOSER, T7, LIPID, TSH, CMP, URIC #### [facility] [address] [place] [address] Dr. Wally Zapien Urea nitrogen [Mass/Vol] 19.0 mg/dL Critically high 7.0-18.0 [facility] Comment on above: Performed By: #### B PANTS CLOSER, T7, LIPID, TSH, CMP, URIC #### [facility] [address] [place] [address] Dr. Wally Zapien Urea nitrogen/Creatinine [Mass ratio] 25.7 mg/mg Normal [facility] Comment on above: Performed By: #### B PANTS CLOSER, T7, LIPID, TSH, CMP, URIC #### [facility] [address] [address] [address] Wally Zapien TSHon 09-24-2022 TSH 1.535 uIU/mL Normal 0.358-3.740 [facility] Comment on above: Performed By: #### U RCX #### [facility] [address] [place] [address] Dr. Wally Zapien UA RANDOM W/MICROSCOPICon BACTERIA NONE SEEN Normal NONE SEEN [facility] Comment on above: Performed By: #### U RCX #### [facility] [address] [place] [address] Dr. Wally Zapien Bilirubin Ql (U) Negative Normal NEGATIVE [facility] Comment on above: Performed By: #### U RCX #### [facility] [address] [place] [address] Dr. Wally Zapien CAST NONE SEEN Normal NONE SEEN [facility] Comment on above: Performed By: #### U RCX #### [facility] [address] [address] [address] Wally Zapien Clarity (U) CLEAR Normal CLEAR [facility] Comment on above: Performed By: #### U RCX #### [facility] [address] [place] [address] Dr. Wally Zapien Color (U) YELLOW Normal YELLOW [facility] Comment on above: Performed By: #### U RCX #### [facility] [address] [place] [address] Dr. Wally Zapien Crystals LM Nom (Urine sed) NONE SEEN Normal NONE SEEN [facility] Comment on above: Performed By: #### U RCX #### [facility] [address] [place] [address] Dr. Wally Zapien Epithelial cells LM Ql (Urine sed) FEW Abnormal NONE SEEN /RARE [facility] Comment on above: Performed By: #### U RCX #### [facility] [address] [place] [address] Dr. Wally Zapien Glucose Ql (U) Negative Normal NEGATIVE [facility] Comment on above: Performed By: #### U RCX #### [facility] [address] [address] [address] Wally Zapien Hemoglobin Ql (U) TRACE-INTACT Abnormal NEGATIVE [facility] Comment on above: Performed By: #### U RCX #### [facility] [address] [place] [address] Dr. Wally Zapien Ketones Ql (U) Negative Normal NEGATIVE [facility] Comment on above: Performed By: #### U RCX #### [facility] [address] [address] [address] Wally Zapien LEUKOCYTES Negative Normal NEGATIVE [facility] Comment on above: Performed By: #### U RCX #### [facility] [address] [place] [address] Dr. Wally Zapien MUCOUS LARGE Abnormal NONE SEEN [facility] Comment on above: Performed By: #### U RCX #### [facility] [address] [place] [address] Dr. Wally Zapien Nitrite Ql (U) Negative Normal NEGATIVE [facility] Comment on above: Performed By: #### U RCX #### [facility] [address] [place] [address] Dr. Wally Zapien pH (U) 6.5 [pH] Normal 5-9 [facility] Comment on above: Performed By: #### U RCX #### [facility] [address] [place] [address] Dr. Wally Zapien RBC 2-5 Abnormal 0-2 [facility] Comment on above: Performed By: #### U RCX #### [facility] [address] [place] [address] Dr. Wally Zapien SPEC GRAVITY 1.025 Normal 1.005-<=1.025 [facility] Comment on above: Performed By: #### U RCX #### [facility] [address] [place] [address] Dr. Wally Zapien UA PROTEIN TRACE Normal NEGATIVE/ TRACE [facility] Comment on above: Performed By: #### U RCX #### [facility] [address] [place] [address] Dr. Wally Zapien Urobilinogen Qn (U) 1.0 {Suma'U}/dL Normal 0.2 - 1. 0 [facility] Comment on above: Performed By: #### U RCX #### [facility] [address] [place] [address] Dr. Wally Zapien WBC 0-2 Abnormal NONE SEEN [facility] Comment on above: Performed By: #### U RCX #### [facility] [address] [place] [address] Dr. Wally Zapien URIC ACID SERUMon 09-24-2022 Urate [Mass/Vol] 3.7 mg/dL Normal 3.5-7.2 [facility] Comment on above: Performed By: #### B PANTS CLOSER, T7, LIPID, TSH, CMP, URIC #### [facility] [address] [place] [address] Dr. Wally Zapien VITAMIN D 25 OHon 09-24-2022 VIT D 25-OH 42.6 ng/mL Normal [facility] Comment on above: Performed By: #### U RCX #### [facility] [address] [place] [address] Dr. Wally Zapien VIT D RANGES SEE BELOW Normal [facility] Comment on above: Result Comment: <20 ng/mL Vit D deficient 20 - <30 ng/mL Vit D insufficient 30 - 100 ng/mL Vit D sufficient >100 ng/mL Potential Toxicity Performed By: #### U RCX #### [facility] Laboratory [address] [place] [address] Dr. Wally Zapien CBC AUTO DIFFon 09-18-2022 BASO # 0.0 103/ul Normal 0.0-0.1 [facility] Comment on above: Performed By: #### C BC #### [facility] Laboratory [address] [place] [address] Dr. Wally Zapien Basophils/100 WBC (Bld) 0.7 % Normal 0.2-2.0 [facility] Comment on above: Performed By: #### C BC #### [facility] Laboratory [address] [place] [address] Dr. Wally Zapien EO # 0.1 103/ul Normal 0.0-0.7 [facility] Comment on above: Performed By: #### C BC #### [facility] [address] [place] [address] Dr. Wally Zapien Eosinophils/100 WBC (Bld) 2.8 % Normal 0.9-7.0 [facility] Comment on above: Performed By: #### C BC #### [facility] [address] [place] [address] Dr. Wally Zapien Erythrocyte distribution width (RBC) [Ratio] 12.7 % Normal 11.0-15.0 [facility] Comment on above: Performed By: #### C BC #### [facility] [address] [place] [address] Dr. Wally Zapien Hematocrit (Bld) [Volume fraction] 44.1 % Normal 42.0-54.0 [facility] Comment on above: Performed By: #### C BC #### [facility] [address] [place] [address] Dr. Wally Zapien Hemoglobin (Bld) [Mass/Vol] 15.3 g/dL Normal 14.0-18.0 [facility] Comment on above: Performed By: #### C BC #### [facility] [address] [place] [address] Dr. Wally Zapien IG # 0.01 10e3/ul Normal 0.00-0.03 [facility] Comment on above: Performed By: #### C BC #### [facility] [address] [place] [address] Dr. Wally Zapien IG % 0.2 % Normal 0.0-0.5 [facility] Comment on above: Performed By: #### C BC #### [facility] [address] [place] [address] Dr. Wally Zapien LYMPH # 1.8 103/ul Normal 1.2-3.8 [facility] Comment on above: Performed By: #### C BC #### [facility] [address] [place] [address] Dr. Wally Zapien Lymphocytes/100 WBC (Bld) 43.0 % Normal 20.5-60.0 [facility] Comment on above: Performed By: #### C BC #### [facility] [address] [place] [address] Dr. Wally Zapien MANUAL DIFF REQ NO Normal [facility] Comment on above: Performed By: #### C BC #### [facility] [address] [place] [address] Dr. Wally Zapien MCH (RBC) [Entitic mass] 32.1 pg Normal 25.9-34.0 [facility] Comment on above: Performed By: #### C BC #### [facility] [address] [place] [address] Dr. Wally Zapien MCHC (RBC) [Mass/Vol] 34.7 g/dL Normal 29.9-35.2 [facility] Comment on above: Performed By: #### C BC #### [facility] [address] [place] [address] Dr. Wally Zapien MCV (RBC) [Entitic vol] 92.5 fL Normal 80.0-94.0 [facility] Comment on above: Performed By: #### C BC #### [facility] [address] [place] [address] Dr. Wally Zapien MONO # 0.4 103/ul Normal 0.3-0.8 [facility] Comment on above: Performed By: #### C BC #### [facility] [address] [place] [address] Dr. Wally Zapien Monocytes/100 WBC (Bld) 9.2 % Normal 1.7-12.0 [facility] Comment on above: Performed By: #### C BC #### [facility] [address] [place] [address] Dr. Wally Zapien NEUT # 1.9 103/ul Normal 1.4-6.5 [facility] Comment on above: Performed By: #### C BC #### [facility] [address] [place] [address] Dr. Wally Zapien Neutrophils/100 WBC (Bld) 44.1 % Normal 43.0-75.0 [facility] Comment on above: Performed By: #### C BC #### [facility] [address] [place], [place] [address] Dr. Wally Zapien Platelet mean volume (Bld) [Entitic vol] 10.4 fL Normal 9.5-13.5 [facility] Comment on above: Performed By: #### C BC #### [facility] [address] [place] [address] [address] Wally Zapien PLT 152 103/ul Normal 150-450 [facility] Comment on above: Performed By: #### C BC #### [facility] [address] [place], [place] [address] Dr. Wally Zapien RBC 4.77 106/ul Normal 4.70-6.10 [facility] Comment on above: Performed By: #### C BC #### [facility] [address] [address] [address] Wally Zapien WBC 4.2 103/ul Normal 4.0-11.0 [facility] Comment on above: Performed By: #### C BC #### [facility] [address] [place], [place] [address] ABD/PELVIS WO CONon [...] mesh repair. 4. Cardiomegaly. Electronically authenticated by: JOELLE LOPEZ Date: 2022-09-18 13:40 Normal [facility] ER URINE PROFILEon 3 Bilirubin Ql (U) SMALL Abnormal NEGATIVE [facility] Comment on above: Performed By: #### Olinda WILLIS UMICRO #### [facility] [address] [place] [address] Dr. Wally Zapien Clarity (U) SL CLOUDY Abnormal CLEAR [facility] Comment on above: Performed By: #### Olinda WILLIS UMICRO #### [facility] [address] [address] [address] Wally Zapien Color (U) RED Abnormal YELLOW [facility] Comment on above: Performed By: #### Olinda WILLIS UMICRO #### [facility] [address] [address] [address] Wally GREBER A micrscopic examination will be performed if indicated. Normal [facility] Comment on above: Performed By: #### Olinda WILLIS UMICRO #### [facility] [address] [address] [address] Wally Zapien Glucose Ql (U) Negative Normal NEGATIVE [facility] Comment on above: Performed By: #### Olinda WILLIS UMICRO #### [facility] [address] [place] [address] Dr. Wally Zapien Hemoglobin Ql (U) LARGE Abnormal NEGATIVE [facility] Comment on above: Performed By: #### KERRI PADRON #### [facility] [address] [place] [address] Dr. Wally Zapien Ketones Ql (U) TRACE Abnormal NEGATIVE [facility] Comment on above: Performed By: #### BIMAL PADRONRO #### [facility] [address] [place] [address] Dr. Walyl Zapien LEUKOCYTES TRACE Abnormal NEGATIVE [facility] Comment on above: Performed By: #### BIMAL PADRONRO #### [facility] [address] [place] [address] Dr. Wally Zapien Nitrite Ql (U) Positive Abnormal NEGATIVE [facility] Comment on above: Performed By: #### BIMAL PADRONRO #### [facility] [address] [place] [address] Dr. Wally Zapien pH (U) 5.5 [pH] Normal 5-9 [facility] Comment on above: Performed By: #### BIMAL PADRONRO #### [facility] [address] [place] [address] Dr. Wally Zapien Protein (U) [Mass/Vol] 100 mg/dL Abnormal NEGATIVE/ TRACE [facility] Comment on above: Performed By: #### BIMAL PADRONRO #### [facility] [address] [place] [address] Dr. Wally Zapien SPEC GRAVITY 1.025 Normal 1.005-<=1.025 [facility] Comment on above: Performed By: #### BIMAL PADRONRO #### [facility] [address] [place] [address] Dr. Wally Zapien UR MICRO IND INDICATED Normal [facility] Comment on above: Performed By: #### BIMAL PADRONRO #### [facility] [address] [place] [address] Dr. Wally Zapien Urobilinogen Qn (U) 1.0 {Suma'U}/dL Normal 0.2 - 1. 0 [facility] Comment on above: Performed By: #### BIMAL PADRONRO #### [facility] [address] [address] [address] Wally Zapien PROF CHEM 8 (BAS METB)on Anion gap [Moles/Vol] 10.5 mmol/L Normal [facility] Comment on above: Performed By: #### U RCX #### [facility] [address] [place] [address] Dr. Wally Zapien Calcium [Mass/Vol] 8.6 mg/dL Normal 8.5-10.1 [facility] Comment on above: Performed By: #### U RCX #### [facility] [address] [address] [address] Wally Zapien Chloride [Moles/Vol] 105 mmol/L Normal 98-107 [facility] Comment on above: Performed By: #### U RCX #### [facility] [address] [place] [address] Dr. Wally Zapien CO2 [Moles/Vol] 28.8 mmol/L Normal 21.0-32.0 [facility] Comment on above: Performed By: #### U RCX #### [facility] [address] [place] [address] Dr. Wally Zapien Creatinine [Mass/Vol] 0.85 mg/dL Normal 0.70-1.30 [facility] Comment on above: Performed By: #### U RCX #### [facility] [address] [place] [address] Dr. Wally Zapien EGFR-AF BRUNEIAN >60 Normal >=60 [facility] Comment on above: Performed By: #### U RCX #### [facility] [address] [place] [address] Dr. Wally Zapien EGFR-NON AF BRUNEIAN >60 Normal >=60 [facility] Comment on above: Performed By: #### U RCX #### [facility] [address] [place] [address] Dr. Wally Zapien Glucose [Mass/Vol] 112 mg/dL Critically high 74-[address] [facility] Comment on above: Performed By: #### U RCX #### [facility] [address] [place] [address] Dr. Wally Zapien Potassium [Moles/Vol] 4.3 mmol/L Normal 3.5-5.1 [facility] Comment on above: Performed By: #### U RCX #### [facility] [address] [place] [address] Dr. Wally Zapien Sodium [Moles/Vol] 140 mmol/L Normal 136-145 [facility] Comment on above: Performed By: #### U RCX #### [facility] [address] [address] [address] Wally Zapien Urea nitrogen [Mass/Vol] 23.0 mg/dL Critically high 7.0-18.0 [facility] Comment on above: Performed By: #### U RCX #### [facility] [address] [place] [address] Dr. Wally Zapien Urea nitrogen/Creatinine [Mass ratio] 27.1 mg/mg Normal [facility] Comment on above: Performed By: #### U RCX #### [facility] [address] [place] [address] Dr. Wally Zapien URINE MICROSCOPIC ONLYon BACTERIA TRACE Abnormal NONE SEEN [facility] Comment on above: Performed By: #### Olinda WILLIS UMICRO #### [facility] [address] [place] [address] Dr. Wally Zapien Bacteria identified Cx Nom (U) NOT INDICATED Normal [facility] Comment on above: Performed By: #### Olinda WILLIS UMICRO #### [facility] [address] [place] [address] Dr. Wally Zapien CAST NONE SEEN Normal NONE SEEN [facility] Comment on above: Performed By: #### Olinda WILLIS UMICRO #### [facility] [address] [place] [address] Dr. Wally Zapien Crystals LM Nom (Urine sed) NONE SEEN Normal NONE SEEN [facility] Comment on above: Performed By: #### Olinda WILLIS UMICRO #### [facility] [address] [place] [address] Dr. Wally Zapien Epithelial cells LM Ql (Urine sed) RARE Normal NONE SEEN /RARE [facility] Comment on above: Performed By: #### E RUR, UMICRO #### [facility] [address] [address] [address] Wally Zapien MUCOUS NONE SEEN Normal NONE SEEN [facility] Comment on above: Performed By: #### E RUR, UMICRO #### [facility] [address] [address] [address] Wally Zapien RBC (U) [#/Vol] /uL Abnormal 0-2 [facility] Comment on above: Performed By: #### E RUR, UMICRO #### [facility] [address] [address] [address] Wally Zapien WBC 2-5 Abnormal NONE SEEN [facility] Comment on above: Performed By: #### E RUR, UMICRO #### [facility] [address] [address] [address] Wally Zapien Vital Signs Date Time Vital Sign Value Performing Clinician Facility 06-02-2024 11:50-0400 Diastolic blood pressure 84 mm[Hg] Lazara Orzech [facility] 06-02-2024 11:50-0400 Heart rate 156 /min Lazara Orzech [facility] 06-02-2024 11:50-0400 Respiratory rate 16 /min Lazara Orzech [facility] 06-02-2024 11:50-0400 Systolic blood pressure 95 mm[Hg] Lazara Orzech [facility] 03-17-2024 14:58-0400 Blood Pressure Location Lazara Orzech [facility] 03-17-2024 14:58-0400 Diastolic blood pressure 77 mm[Hg] Lazara Orzech [facility] 03-17-2024 14:58-0400 Heart rate 80 /min Lazara Orzech [facility] 03-17-2024 14:58-0400 Respiratory rate 16 /min Lazara Orzech [facility] 03-17-2024 14:58-0400 Systolic blood pressure 132 mm[Hg] Lazara Orzech [facility] 02-11-2024 09:59-0400 Blood Pressure Location Lazara Orzech [facility] 02-11-2024 09:59-0400 Diastolic blood pressure 84 mm[Hg] Lazara Orzech [facility] 02-11-2024 09:59-0400 Heart rate 71 /min Lazara Orzech [facility] 02-11-2024 09:59-0400 Systolic blood pressure 138 mm[Hg] Lazara Orzech [facility] 07-17-2023 15:40-0500 Body height 160.02 cm Rocio Chan [facility] 07-17-2023 15:40-0500 Body mass index (BMI) [Ratio] 37.55 kg/m2 Rocio Chan [facility] 07-17-2023 15:40-0500 Body temperature 98.2 [degF] Rocio Chan [facility] 07-17-2023 15:40-0500 Body weight 96.16 kg Rocio Chan [facility] Other 07-17-2023 15:40-0500 Diastolic blood pressure 76 mm[Hg] Rocio Chan [facility] Other 07-17-2023 15:40-0500 Respiratory rate 18 /min Rocio Nullmond [facility] Other 07-17-2023 15:40-0500 SaO2% (BldA) [Mass fraction] 96 % Rocio Chan [facility] 07-17-2023 15:40-0500 Systolic blood pressure 134 mm[Hg] Rocio Nullmond [facility] 09-26-2022 13:26-0500 Blood Pressure Location [place] VALENTIN [facility] 09-26-2022 13:26-0500 Diastolic blood pressure 74 mm[Hg] [place] VALENTIN [facility] 09-26-2022 13:26-0500 Heart rate 52 /min [place] VALENTIN [facility] 09-26-2022 13:26-0500 Systolic blood pressure 173 mm[Hg] [place] VALENTIN [facility] 04-16-2022 13:49-0400 Diastolic blood pressure 87 mm[Hg] [place] VALENTIN [facility] 04-16-2022 13:49-0400 Mean blood pressure 110 mm[Hg] [place] VALENTIN [facility] 04-16-2022 13:49-0400 Systolic blood pressure 156 mm[Hg] [place] VALENT[facility] 04-16-2022 13:37-0400 Blood Pressure Location [place] VALENTIN [facility] 04-16-2022 13:37-0400 Diastolic blood pressure 102 mm[Hg] [place] VALENTIN [facility] 04-16-2022 13:37-0400 Heart rate 81 /min [place] VALENTIN [facility] 04-16-2022 13:37-0400 Respiratory rate 16 /min [place] VAL[facility] 04-16-2022 13:37-0400 Systolic blood pressure 191 mm[Hg] [place] [facility] Encounters Encounter Date Encounter Type Care Provider Facility Start: 06-02-2024 End: 06-02-2024 ambulatory Lazara X Orzech Facility:[facility] Start: 06-02-2024 End: 06-02-2024 Lab Drop off Lazara X Orzech [facility] Start: 06-02-2024 End: 06-02-2024 ambulatory Lazara X Orzech Facility:[facility] Start: 06-02-2024 End: 06-02-2024 Patient encounter procedure Lazara X Orzech [facility] Start: 04-21-2024 End: 04-21-2024 ambulatory BAYRON Guerrero [facility] Start: 04-17-2024 End: 04-21-2024 ambulatory RAMBO A [facility] Start: 04-17-2024 End: 04-21-2024 ambulatory [facility] Start: 04-17-2024 End: 04-20-2024 Evaluation and management of inpatient DONNA Guerrero [facility] Start: 04-17-2024 End: 04-21-2024 Emergency department patient visit DONNA Guerrero [facility] Start: 04-17-2024 End: 04-21-2024 ambulatory [facility] Start: 04-14-2024 ambulatory Lazara X Orzech Facilit y:[facility] Start: 04-07-2024 End: 04-07-2024 ambulatory [place] VALENTIN Facility:[id number] Start: 03-18-2024 End: 03-18-2024 ambulatory Emily Maria Facility:[facility] Start: 03-18-2024 End: 03-18-2024 Patient encounter procedure Emily Maria [facility] Start: 03-17-2024 End: 03-17-2024 ambulatory Lazara X Orzech Facility:[facility] Start: 03-17-2024 End: 03-17-2024 Patient encounter procedure Lazara X Orzech [facility] Start: 02-11-2024 End: 02-11-2024 Lab Drop off Lazara X Orzech [facility] Start: 02-11-2024 End: 02-11-2024 ambulatory Lazara Lino Facility:[facility] Start: 02-11-2024 End: 02-11-2024 Patient encounter procedure Lazara Lino [facility] Start: 11-18-2023 End: 11-19-2023 ambulatory Fabrice Dias MD Facility:[facility] Start: 10-28-2023 End: 10-29-2023 ambulatory Fabrice Dias MD Facility:[facility] Start: 09-30-2023 End: 10-01-2023 ambulatory Fabrice Dias MD Facility:[facility] Start: 2023 End: 09-24-2023 ambulatory Fabrice Dias MD Facility:[facility] Start: 07-17-2023 End: 07-17-2023 ambulatory Rocio Chan [facility] Start: 07-17-2023 Office outpatient visit 15 minutes Rocio Chan [facility] Start: 05-27-2023 End: 05-28-2023 ambulatory Fabrice Dias MD Facility:[facility] Start: 01-23-[address] BAYRON BA . Facili ty:[facility] Start: 09-26-2022 End: 09-26-2022 Patient encounter procedure [place] VAL[place] [facility] Start: 09-24-2022 End: 09-25-[address] BAYRON BA . Facility: Start: 09-18-2022 End: 09-18-2022 ambulatory KARLOS MELTON . Facility:[facility] Start: 04-16-2022 End: 04-16-2022 Patient encounter procedure [place] VALENTIN [facility] Procedures Date Procedure Procedure Detail Performing Clinician Start: 09-24-2022 PSA screening KARLOS ALVAREZ . Comment on above: Performed By: #### U RCX #### [facility] [address] [address] [address] Wally Zapien Start: 03-17-2019 Cystoscope, device ( physical object) [place] [facility] Cardiac catheterization Patr ick JAYDON Coronary artery bypass graft [place] [facility] Extraction of cataract Patri ck VALENTIN Hydrocelectomy [place] MEYER S Inguinal herniorrhaphy Patri ck JAYDON Large intestine excision Pat noe JAYDON Prosthetic arthropla sty of the hip [place] [facility] Repair of musculoten dinous cuff of shoulder [place] [facility] Tonsillectomy and adenoidectomy [place] [facility] Plan of Treatment Date Care Activity Detail Author Start: 06-30-2024 ambulatory Ambulatory Facility:[facility] Immunizations Immunization Date Immunization Notes Care Provider Fa anisha 05-24-2022 influenza virus vacc ine, unspecified formulation [place] VALENTIN [facility] 04-20-2022 SARS-CoV-2 mRNA (rucelaziimb-xvei-qxwztr e) vaccine [place] [facility] 06-19-2021 SARS-CoV-2 (COVID-19 ) mRNA BNT-162b2 vax [place] [facility] 06-01-2021 influenza virus vacc ine, unspecified formulation [employer] [facility] 05-23-2021 influenza virus vacc ine, unspecified formulation [employer] [facility] 11-10-2020 SARS-CoV-2 (COVID-19 ) mRNA BNT-162b2 vax [employer] [facility] 10-20-2020 SARS-CoV-2 (COVID-19 ) mRNA BNT-162b2 vax [employer] [facility] 08-04-2020 zoster vaccine recombinant [employer] [facility] 07-06-2020 SARS-CoV-2 (COVID-19 ) Ad26 vaccine, recombinant [employer] [facility] 06-24-2020 influenza virus vacc ine, unspecified formulation [employer] [facility] 06-03-2020 zoster vaccine recombinant [employer] [facility] 06-02-2020 SARS-CoV-2 (COVID-19 ) Ad26 vaccine, recombinant [employer] [facility] 05-26-2020 influenza virus vacc ine, unspecified formulation [employer] [facility] 05-29-2019 influenza virus vacc ine, unspecified formulation [employer] [facility] 06-17-2018 influenza virus vacc ine, unspecified formulation [facility] 05-14-2017 influenza virus vacc ine, unspecified formulation [facility] [employer] [facility] 05-14-2017 pneumococcal polysaccharide vaccine, 23 valent [facility] 05-17-2016 influenza virus vacc ine, unspecified formulation [facility] [employer] [facility] 05-17-2016 pneumococcal conjuga te vaccine, 13 valent [facility] [employer] 05-16-2015 influenza virus vacc ine, unspecified formulation [facility] [employer] Payers Date Payer Category Payer Private Health Insurance 1957 Medicare [id number] 1940 Unknown [id number] 1940 Unknown [id number] 2.16.84 [id number] 1940 Unknown [id number] 2.16.84 [id number] 1940 Unknown [id number] 2.16. [id number] 1942 Unknown [id number] 2.16. [id number] 1942 Unknown [id number] 2.16. [id number] 1942 Unknown [id number] 2.16. 840.1.010294.3.579.2.196 1940 Unknown [id number] 2.16. 840.1.786986.3.579.2.196 1940 Unknown [id number] 2.16.8 40.1.209430.3.579.2.727 1942 Unknown [id number] 2.16.8 40.1.653401.3.579.2.727 1942 Unknown [id number] 2.16.8 40.1.580517.3.579.2.1286 1942 Unknown [id number] 2.16.8 40.1.695398.3.579.2.1286 1942 Unknown [id number] 2.16.8 40.1.666616.3.579.2.1286 1942 Unknown [id number] 2.16.8 40.1.466306.3.579.2.1286 1942 Unknown [id number] 2.16.8 40.1.125639.3.579.2.1286 1942 Unknown [id number] 2.16.8 40.1.382629.3.579.2.1286 1942 Unknown [id number] 2.16.8 40.1.659060.3.579.2.1286 1942 Unknown [id number] 2.16.8 40.1.544024.3.579.2.1286 1942 Unknown [id number] 2.16.8 40.1.968841.3.579.2.1286 1942 Unknown [id number] 2.16.8 40.1.261549.3.579.2.727 1942 Unknown [id number] 2.16.8 40.1.834917.3.579.2.727 1942 Unknown [id number] 2.16.8 40.1.024123.3.579.2.727 1942 Unknown [id number] 2.16.8 40.1.919297.3.579.2.727 1942 Unknown [id number] 2.16.8 40.1.947684.3.579.2.727 1942 Unknown [id number] 2.16.8 40.1.572272.3.579.2.727 1942 Unknown [id number] 2.16.8 40.1.389748.3.579.2.727 Social History Date Type Detail Facility Start: 04-16-2022 End: 06-02-2024 Tobacco smoking status Never smoked tobacco (finding) [facility] Tobacco smoking status Never [facility] Sex Assigned At Male [facility] Functional Status Date Assessment Result Facility 06-02-2024 Functional Status N/A [facility] 03-17-2024 Functional Status N/A [facility] 02-11-2024 Functional Status N/A [facility] 09-26-2022 Functional Status N/A [facility] 04-16-2022 Functional Status N/A [facility] Clinical Notes 10-06-2020 to 06-02-2024 Note Date & Type Note Facility 06-02-2024 Hospital Discharge instructions Patient Education 06/02/2024 13:23:03 Acute Urinary Retention, Male Acute Urinary Retention, [...] Follow these instructions at home: Medicines Take eika-tbz-gvfuezz and prescription medicines only as told by [...] provider. Document Revised: 05/03/2021 Document Reviewed: 05/03/2021 [employer] Patient Education 2023 [employer]. 06/02/2024 13:23:02 Urinary Tract Infection, Adult Urinary Tract Infection, Adult A urinary tract infection (UTI) is an infection of any part of the urinary tract. The urinary tract includes the kidneys, ureters, bladder, and urethra. These organs make, store, and get rid of urine in the body. An upper UTI affects the ureters and kidneys. A lower UTI affects the bladder and urethra. What are the causes? Most urinary tract infections are caused by bacteria in your genital area around your urethra, where urine leaves your body. These bacteria grow and cause inflammation of your urinary tract. What increases the risk? You are more likely to develop this condition if: You have a urinary catheter that stays in place. You are not able to control when you urinate or have a bowel movement (incontinence). You are female and you: ?Use a spermicide or diaphragm for control. ?Have low estrogen levels. ?Are . You have certain genes that increase your risk. You are sexually active. You take antibiotic medicines. You have a condition that causes your flow of urine to slow down, such as: ?An enlarged prostate, if you are male. ?Blockage in your urethra. ?A kidney stone. ?A nerve condition that affects your bladder control (neurogenic bladder). ?Not getting enough to drink, or not urinating often. You have certain medical conditions, such as: ?Diabetes. ?A weak disease-fighting system (immunesystem). ?Sickle cell disease. ?Gout. ?Spinal cord injury. What are the signs or symptoms? Symptoms of this condition include: Needing to urinate right away (urgency). Frequent urination. This may include small amounts of urine each time you urinate. Pain or burning with urination. Blood in the urine. Urine that smells bad or unusual. Trouble urinating. Cloudy urine. Vaginal discharge, if you are female. Pain in the abdomen or the lower back. You may also have: Vomiting or a decreased appetite. Confusion. Irritability or tiredness. A fever or chills. Diarrhea. The first symptom in older adults may be confusion. In some cases, they may not have any symptoms until the infection has worsened. How is this diagnosed? This condition is diagnosed based on your medical history and a physical exam. You may also have other tests, including: Urine tests. Blood tests. Tests for STIs (sexually transmitted infections). If you have had more than one UTI, a cystoscopy or imaging studies may be done to determine the cause of the infections. How is this treated? Treatment for this condition includes: Antibiotic medicine. Ayrp-cmv-zytfows medicines to treat discomfort. Drinking enough water to stay hydrated. If you have frequent infections or have other conditions such as a kidney stone, you may need to see a health care provider who specializes in the urinary tract (urologist). In rare cases, urinary tract infections can cause sepsis. Sepsis is a life-threatening condition that occurs when the body responds to an infection. Sepsis is treated in the hospital with IV antibiotics, fluids, and other medicines. Follow these instructions at home: Medicines Take ipbx-sfw-rujbiac and prescription medicines only as told by your health care provider. If you were prescribed an antibiotic medicine, take it as told by your health care provider. Do not stop using the antibiotic even if you start to feel better. General instructions Make sure you: ?Empty your bladder often and completely. Do not hold urine for long periods of time. ?Empty your bladder after sex. ?Wipe from front to back after urinating or having a bowel movement if you are female. Use each tissue only one time when you wipe. Drink enough fluid to keep your urine pale yellow. Keep all follow-up visits. This is important. Contact a health care provider if: Your symptoms do not get better after 1 2 days. Your symptoms go away and then return. Get help right away if: You have severe pain in your back or your lower abdomen. You have a fever or chills. You have nausea or vomiting. Summary A urinary tract infection (UTI) is an infection of any part of the urinary tract, which includes the kidneys, ureters, bladder, and urethra. Most urinary tract infections are caused by bacteria in your genital area. Treatment for this condition often includes antibiotic medicines. If you were prescribed an antibiotic medicine, take it as told by your health care provider. Do not stop using the antibiotic even if you start to feel better. Keep all follow-up visits. This is important. This information is not intended to replace advice given to you by your health care provider. Make sure you discuss any questions you have with your health care provider. Document Revised: 03/19/2021 Document Reviewed: 03/24/2021 [employer] Patient Education 2023 [employer]. 06/02/2024 13:22:59 Hematuria, Adult Hematuria, Adult Hematuria is blood [...] Follow these instructions at home: Medicines Take szdp-ndd-meebkem and prescription medicines only as told by [...] or the blood stops without treatment. Take jiie-xpy-panpwyw and prescription medicines only as told by your health care provider. Drink enough fluid to keep your urine pale yellow. This information is not intended to replace advice given to you by your health care provider. Make sure you discuss any questions you have with your health care provider. Document Revised: 04/12/2021 Document Reviewed: 04/12/2021 [employer] Patient Education 2023 [employer]. Follow Up Care 05/25/2024 13:00:03 With:KIM Lino APRN, Lazara Echavarria, PARVIN, URL Address: When: Unknown Comments:4-week cath change [facility] 06-02-2024 Note Patient Education Obstetrics and Gynecology Urinary Tract Infection, Adult A urinary tract infection (UTI) is an infection of any part of the urinary tract. The urinary tract includes the kidneys, ureters, bladder, and urethra. These organs make, store, and get rid of urine in the body. An upper UTI affects the ureters and kidneys. A lower UTI affects the bladder and urethra. What are the causes? Most urinary tract infections are caused by bacteria in your genital area around your urethra, where urine leaves your body. These bacteria grow and cause inflammation of your urinary tract. What increases the risk? You are more likely to develop this condition if: ? You have a urinary catheter that stays in place. ? You are not able to control when you urinate or have a bowel movement (incontinence). ? You are female and you: ? Use a spermicide or diaphragm for control. ? Have low estrogen levels. ? Are . ? You have certain genes that increase your risk. ? You are sexually active. ? You take antibiotic medicines. ? You have a condition that causes your flow of urine to slow down, such as: ? An enlarged prostate, if you are male. ? Blockage in your urethra. ? A kidney stone. ? A nerve condition that affects your bladder control (neurogenic bladder). ? Not getting enough to drink, or not urinating often. ? You have certain medical conditions, such as: ? Diabetes. ? A weak disease-fighting system (immunesystem). ? Sickle cell disease. ? Gout. ? Spinal cord injury. What are the signs or symptoms? Symptoms of this condition include: ? Needing to urinate right away (urgency). ? Frequent urination. This may include small amounts of urine each time you urinate. ? Pain or burning with urination. ? Blood in the urine. ? Urine that smells bad or unusual. ? Trouble urinating. ? Cloudy urine. ? Vaginal discharge, if you are female. ? Pain in the abdomen or the lower back. You may also have: ? Vomiting or a decreased appetite. ? Confusion. ? Irritability or tiredness. ? A fever or chills. ? Diarrhea. The first symptom in older adults may be confusion. In some cases, they may not have any symptoms until the infection has worsened. How is this diagnosed? This condition is diagnosed based on your medical history and a physical exam. You may also have other tests, including: ? Urine tests. ? Blood tests. ? Tests for STIs (sexually transmitted infections). If you have had more than one UTI, a cystoscopy or imaging studies may be done to determine the cause of the infections. How is this treated? Treatment for this condition includes: ? Antibiotic medicine. ? Gilm-iey-mbvoyji medicines to treat discomfort. ? Drinking enough water to stay hydrated. If you have frequent infections or have other conditions such as a kidney stone, you may need to see a health care provider who specializes in the urinary tract (urologist). In rare cases, urinary tract infections can cause sepsis. Sepsis is a life-threatening condition that occurs when the body responds to an infection. Sepsis is treated in the hospital with IV antibiotics, fluids, and other medicines. Follow these instructions at home: Medicines ? Take tlkm-jsl-dgwjgyn and prescription medicines only as told by your health care provider. ? If you were prescribed an antibiotic medicine, take it as told by your health care provider. Do not stop using the antibiotic even if you start to feel better. General instructions ? Make sure you: ? Empty your bladder often and completely. Do not hold urine for long periods of time. ? Empty your bladder after sex. ? Wipe from front to back after urinating or having a bowel movement if you are female. Use each tissue only one time when you wipe. ? Drink enough fluid to keep your urine pale yellow. ? Keep all follow-up visits. This is important. Contact a health care provider if: ? Your symptoms do not get better after 1?2 days. ? Your symptoms go away and then return. Get help right away if: ? You have severe pain in your back or your lower abdomen. ? You have a fever or chills. ? You have nausea or vomiting. Summary ? A urinary tract infection (UTI) is an infection of any part of the urinary tract, which includes the kidneys, ureters, bladder, and urethra. ? Most urinary tract infections are caused by bacteria in your genital area. ? Treatment for this condition often includes antibiotic medicines. ? If you were prescribed an antibiotic medicine, take it as told by your health care provider. Do not stop using the antibiotic even if you start to feel better. ? Keep all follow-up visits. This is important. This information is not intended to replace advice given to you by your health care provider. Make sure you discuss any questions you have with your health care provider. Document Revised: 03/19 (more content not included)... [facility] 04-17-[address] BRAIN WO CONT STR [...] Elias Garner DO on 04/17/2024 8:52 AM [facility] 03-17-2024 Hospital Discharge instructions Patient Education [...] Follow these instructions at home: Medicines Take afpz-yuk-zvhgurj and prescription medicines only as told by [...] provider. Document Revised: 05/03/2021 Document Reviewed: 05/03/2021 [employer] Patient Education 2022 [employer]. Follow Up Care 03/13/2024 14:20:02 With:KIM Lino APRN, Lazara Echavarria, PARVIN, URL Address: When: Unknown [facility] 03-17-2024 Note Patient Education Urology Acute Urinary [...] these instructions at home: Medicines ? Take jwmm-frk-ibvqyay and prescription medicines only as told by [...] provider. Document Revised: 05/03/2021 Document Reviewed: 05/03/2021 [employer] Patient Education ? 2022 [employer]. [facility] 02-11-2024 Evaluation + Plan note Diagnostic Tests PendingUrine Culture 02/11/24 [facility] 02-11-2024 Hospital Discharge instructions Patient Education [...] Follow these instructions at home: Medicines Take akvl-xvv-jlpedxn and prescription medicines only as told by [...] or the blood stops without treatment. Take zjle-efv-sheerzc and prescription medicines only as told by your health care provider. Drink enough fluid to keep your urine pale yellow. This information is not intended to replace advice given to you by your health care provider. Make sure you discuss any questions you have with your health care provider. Document Revised: 04/12/2021 Document Reviewed: 04/12/2021 [employer] Patient Education 2022 [employer]. 02/11/2024 10:34:29 Benign Prostatic Hyperplasia Benign Prostatic [...] urethra. Follow these instructions at home: Take yigc-bds-vysfbpb and prescription medicines only as told by [...] provider. Document Revised: 02/28/2022 Document Reviewed: 02/28/2022 [employer] Patient Education 2022 [employer]. Follow Up Care 04/16/2022 14:54:37 With:KIM Lino APRN, Lazara Echavarria, PARVIN, URL Address: When: Unknown Comments:1 year With:JAYDON COE, Reno Maciel, URL Address: [facility] [address] , [place] [address] [phone] When: Unknown [facility] 02-11-2024 Note - From: Julia Charlton To: [facility] - Administrative; Sent: 02/11/2024 10:28:36 EDT Show up: 08/26/2024 10:28:00 EST Subject: schedule 1 yr f/u Due Date/Time: 02/02/2025 10:28:00 EDT Reminder/Recall Patient needs scheduled for a 1 yr f/u, no labs [facility] 07-17-2023 Evaluation note Encounter Date [...] no improvement in 2 to 3 days [facility] 02-01-2023 Hospital Discharge instructions Patient Education [...] or mouth. Supplies needed: Soap. Alcohol-based hand cpht. Standard cleaning products. Disinfectants, such as bleach. [...] water are not available, use alcohol-based hand cpht. Avoid touching your face, mouth, nose, or [...] water. Air-dry your dishes or use a production support engineer. Do not share dishes or eating [...] certain germs and not others. Read the bilingual office assistant's instructions or read online resources to determine [...] minutes after each use, or according to bilingual office assistant's instructions. Wash reusable cleaning cloths and sanitize [...] water are not available, use alcohol-based hand cpht. In general: Stay home except to get [...] for Professionals in Infection Control and Epidemiology: professionals.site.apic.org/qrhvbxwt-ws-finp/mfl-mcmpsnyuuo-amyecyy/home/ Summary It is important to know how [...] 05/21/2009 Document Revised: 12/08/2019 Document Reviewed: 11/06/2019 Elsevier Patient Education 2020 [employer] Follow Up Care 09/20/2022 14:58:28 With:JAYDON COE, Reno Maciel, URL Address: [facility] [address], [place] [address]- When:3 months Comments:UTI F/U [facility] 08-22-2022 Hospital Discharge instructions Patient Education 04/16/2022 [...] urethra. Follow these instructions at home: Take djmk-ldh-rgjvdpe and prescription medicines only as told by [...] 08/12/2006 Document Revised: 07/07/2019 Document Reviewed: 09/16/2017 [employer] Patient Education 2020 [employer]. 04/16/2022 14:44:17 Calorie Counting for Weight Loss [...] 08/12/2006 Document Revised: 05/01/2019 Document Reviewed: 07/12/2017 [employer] Patient Education 2020 [employer] Follow Up Care 10/16/2021 15:00:57 With:JAYDON COE, Reno Maciel, URL Address: [address] [place] [address] [place] [address]- Business (1) When:Within 1 Year(s) [facility] 02-11-2021 NotePatient Outreach (COVAMN) KYLER RICHARD ([id number]) 1940 M Date Time Provider Department 10/06/20 ROSSYSJOLYNN During your visit today, we recorded the following information about you: Allergies As of Date: 10/06/2020 (No Known Allergies) Date Reviewed: 11/27/2018 Reviewed by: Huyen Barraza - Fully Assessed Order(s):SARS-COVID VACCINE 1ST DOSE APPT [[id number]] Order #: [id number] FUTURE Prescriptions as of 10/06/2020 Sig: RHOPRESSA [...] Text Encounter Status:Closed by NIDIA VOGEL on 10/10/20[facility] Evaluation + Plan note Future Appointments Appointment Date:04/19/2023 09:30:00 AM Scheduled Provider:Reno VALENTIN MD Location:[facility] Appointment Type:URO Office Visit [facility] evaluation + Plan note Future Appointments Appointment Date:01/16/2023 09:45:00 AM Scheduled Provider:Reno VALENTIN MD Location:[facility] Appointment Type:URO Office Visit Appointment Date:04/19/2023 09:30:00 AM Scheduled Provider:Reno VALENTIN MD Location:[facility] Appointment Type:URO Office Visit [facility] Evaluation + Plan note Future Appointments Appointment Date:04/14/2024 11:30:00 AM Scheduled Provider:KIM Lino APRN Lazara X Location:[facility] Appointment Type:URO Office Visit [facility] evaluation + Plan note Future Appointments Appointment Date:06/30/2024 09:00:00 AM Scheduled Provider:KIM Lino APRN Lazara X Location:[facility] Appointment Type:URO Office Visit Diagnostic Tests Pending * Urine Culture 06/02/24 [facility] Evaluation + Plan note Future Appointments Appointment Date:06/30/2024 09:00:00 AM Scheduled Provider:KIM Lino APRN Lazara X Location:[facility] Appointment Type:URO Office Visit [facility] Hislryb general Narrative - Reported* Type Description Date Medical History heart disease Medical History colon cancer Medical History glaucoma Surgical History open heart surgery Surgical History colon surgery Surgical History 3 hernia repairs Surgical History torn retina Surgical History cataracts Surgical History left total hip 2017 Surgical History Eye lid lift both 2020 Hospitalization History see above Hospitalization History back spasms 2022 [facility] Other Hospital course Narrative No data available for this section [facility] Hospital Discharge instructions No data available for this section [facility] No data available for this section [facility] Summary Purpose Family History No Family History [...] section No data available for this section Advance Directives No Advanced Directives Records FoundNo [...] section and content) DATE CREATED AUTHOR 09/19/2021 [facility] DATE CREATED AUTHOR AUTHOR'S ORGANIZ ATION 02/01/2023 [facility] DATE CREATED AUTHOR AUTHOR'S ORGANIZ ATION 12/31/2023 [facility] DATE CREATED AUTHOR AUTHOR'S ORGANIZ ATION 02/13/2024 [facility] DATE CREATED AUTHOR AUTHOR'S ORGANIZ ATION 02/14/2024 [facility] DATE CREATED AUTHOR AUTHOR'S ORGANIZ ATION 04/22/2024 [facility] DATE CREATED AUTHOR AUTHOR'S ORGANIZ ATION 04/23/2024 [facility] DATE CREATED AUTHOR AUTHOR'S ORGANIZ ATION 06/03/2024 [facility] DATE CREATED AUTHOR AUTHOR'S ORGANIZ ATION 06/06/2024 [facility] DATE CREATED AUTHOR AUTHOR'S ORGANIZ ATION 06/07/2024 Joaquin Masters [facility] Care Team (unrecognized sect ion and content) Personnel Name: Bayron Ba MD Address: [address] [place] [address] Personnel Name: Bayron Ba MD Address: Address: [address] [place] [id number] [[email or web address]] Personnel Name: Bayron Ba MD Address: Address: [address] [place], [place] [address] [[email or web address]] Personnel Name: Bayron aB MD Address: Address: [address] [place], [place] [address] [[email or web address]] Personnel Name: Bayron Ba MD Address: Address: [address] [place], [place] [address] [[email or web address]] Personnel Name: Bayron Ba MD Address: Address: [address] [place], [place] [address] [[email or web address]] Personnel Name: Bayron Ba MD Address: Address: [address] [place] [address] Personnel Name: Bayron Ba MD Address: Address: [address] [place] [address] REASON FOR VISIT (unrecogniz ed section and [...] BE BASED ON THE PRIMARY CLINICAL RECORDS. The [employer] [facility]. provides no warranty or guarantee of the accuracy or completeness of information in this document.
== END 2024-06-09 20:18 | disposition home or self-care (01) ==
LOC: SLEEP 20:17
PROVIDERS: PCP Family Medicine; Visit Provider Family Medicine
DX: G47.33 Obstructive sleep apnea (adult) (pediatric) (principal)
CPT/HCPCS: 95811

== ENCOUNTER 2024-07-05 19:12 | Emergency (ER) | payer MEDICARE, SELFPAY ==
[2024-07-05 19:17] VITALS: BP 205/100; PULSE 106; TEMP 36.7; O2SAT 98
--- OUTSIDE RECORDS SUMMARY | 2024-07-05 19:17 | XMS_ITS | CCD ---
Author Organization [facility] Care Team Providers Care Tire And Lube Technician Name Role Phone Bayron Ba Primary Care Physician [phone] GERONIMO ., KARLOS Admitting Unavailable GERONIMO ., [...] Andrius Vytsahil Attending Unavailable Giedraitis , Andrius Vytsahil Attending [...] X Attending Unavailable Reno VALENTIN Referring Unavailable Reno VALENTIN Attending Unavailable Orzech, Lazara X Attending Unavailable Orzech, Lazara X Attending Unavailable Orzech, Lazara X Attending Unavailable Allergies Allergy Classification Reported Allergen(s) Allergy Type Date of Onset Reaction(s) Facility Quinolones (antibiotic) (2 sources) levoFLOXacin; Translations: [levofloxacin] Drug Allergy Irritation (qualifier value) [facility] (11 sources) levoFLOXacin; Translations: [levofloxacin] Drug Allergy 04-17-2024 Irritation (qualifier value) [facility] Medications Current Medications Medication Drug Class(es) Dates Sig (Normalized) Sig (Original) Aspirin (8 sources) Platelet Aggregation Inhibitor, Nonsteroidal Anti-inflammatory Drug Start: 09-26-2022 aspirin Start Date: 09/26/22 Status: Ordered atorvastatin 40 mg oral tablet (10 sources) HMG-CoA Reductase Inhibitor Start: 03-13-2019 atorvastatin 40 mg oral tablet Refills(s) 0 Start Date: 03/13/19 Status: Ordered brimonidine (9 sources) alpha-Adrenergic Agonist Start: 03-13-2019 brimonidine ophthalmic [...] Active cetirizine hydrochloride 10 mg oral tablet (7 sources) Histamine-1 Receptor Antagonist Start: cetirizine 10 mg Tab Refills(s) 0 Start Date: 02/11/24 Status: Ordered clotrimazole 10 mg/ml topical cream (1 source) Azole Antifungal Start: End: clotrimazole Top 1% Crm 1 jennifer, Topical, BID for 14 day(s), 60 gm, Refill(s) 0, [facility], 158, cm, 06/02/24 11:55:00 EDT, Height/Length Dosing, 96, kg, 06/22/24 16:06:00 EDT, Weight Dosing Start Date: 06/22/24 Stop Date: 07/06/24 Status: Ordered dorzolamide (10 sources) Carbonic Anhydrase Inhibitor Start: take 1 drop(s) into the eye(s) three [...] day(s), # 14 cap(s), Refills(s) 0, Pharmacy: [facility], 158, cm, 06/02/24 11:55:00 EDT, Height/Length Dosing, 96, kg, 06/02/24 11:55:00 EDT, Weight Dosing Start Date: 06/02/24 Stop Date: 06/09/24 Status: Ordered Start: 09-26-2022 End: 10-06-2022 take 1 capsule by mouth twice daily doxycycline hyclate 100 mg Cap 100 mg = 1 cap(s), Oral, BID, X 10 day(s), # 20 cap(s), Refills(s) 0, Pharmacy: [facility] #[id number], 160, cm, 09/26/22 13:50:00 EST, Height/Length Dosing, 97.3, kg, 09/26/22 13:50:00 EST, Weight Dosing Start Date: 09/26/22 Stop Date: 10/06/22 Status: Ordered hyoscyamine sulfate 0.125 mg sublingual tablet (7 sources) Start: 02-11-2024 hyoscyamine 0. 125 mg sublingual Tab Refills(s) 0 Start Date: 02/11/24 Status: Ordered icosapent ethyl 1000 mg oral capsule (10 sources) Start: 03-13-2019 Vascepa 1 g or al capsule Refills(s) 0 Start Date: 03/13/19 Status: Ordered take 2 capsules by m outh every twelve hours Vascepa 1 GM 2 capsules with food Orally Twice a day Active latanoprost (10 sources) Prostaglandin Analog Start: 03-13-2019 take 1 [...] day Active lisinopril 10 mg oral tablet (10 sources) Angiotensin Converting Enzyme Inhibitor Start: 03-13-2019 lisinopril 10 mg oral tablet Refills(s) 0 Start Date: 03/13/19 Status: Ordered meloxicam 15 mg oral tablet (9 sources) Nonsteroidal Anti-inflammatory Drug Start: 04-09-2017 meloxicam 15 mg oral tablet Refills(s) 0 Start Date: 03/13/19 Status: Ordered metoprolol tartrate 25 mg oral tablet (10 sources) beta-Adrenergic Beatrice Start: 03-13-2019 take 1 tablet by mouth once daily Lopressor 25 mg oral tablet 25 mg = 1 tab(s), Oral, Daily, Refills(s) 0 Start Date: 03/13/19 Status: Ordered take 1 tablet by [facility] every twelve hours Metoprolol Tartrate 25 MG 1 tablet with food Orally Twice a day Active Multi Vitamin+ (8 sources) Start: 09-26-2022 Multi Vitamin+ Start Date: 09/26/22 Status: Ordered netarsudil 0.2 mg/ml ophthalmic solution (9 sources) Rho Kinase Inhibitor Start: 03-13-2019 Rhopressa 0.02% ophthalmic solution Refill(s) 0 Start Date: 03/13/19 Status: Ordered Start: 03-13-2019 Rhopressa 0.02 % ophthalmic solution Refill(s) 0 Start Date: 03/13/19 Status: Ordered tamsulosin hydrochloride 0.4 mg oral capsule (9 sources) alpha-Adrenergic Beatrice Start: 02-11-2024 tamsu losin 0.4 mg Cap 0.4 mg = 1 cap(s), BID, Refills(s) 0 Start Date: 02/11/24 Status: Ordered Start: 03-07-2022 take 1 capsule by mo [facility] twice daily tamsulosin 0.4 mg Cap 0.4 mg = 1 cap(s), Oral, BID, # 180 cap(s), Refills(s) 3, Pharmacy: [address], 160, cm, 10/16/21 14:26:00 EST, Height/Length Dosing, 94.4, kg, 10/16/21 14:26:00 EST, Weight Dosing Start Date: 03/07/22 Status: Ordered 12 hr timolol 5 mg/ml ophthalmic solution (1 source) beta-Adrenergic Beatrice Start: 03-13-2019 timolo l Opth 0.5% Yvette 5 mL Refill(s) 0 Start Date: 03/13/19 Status: Ordered timolol Opth 0.5% Yvette 5 mL (8 sources) Start: 03-13-2019 timolol Opth 0 .5% [...] propionate 0.05 mg/actuat metered dose nasal spray (5 sources) Corticosteroid Start: 03-17-2024 fluticasone Nasal 0.05 mg/inh [facility] instill 1 spray into each nostril once [...] cerebrovascular disease Onset: 04-17-2024 Biliary tract disease (9 sources) Biliary calculus 03-13-2019 Episodic Calculus of urinary tract (12 sources) Kidney stone; Translations: [Calculus of kidney] Onset: 04-16-2022 Episodic Cancer of colon (9 sources) Carcinoma of colon, stage I 03-13-2019 [...] Onset: 09-20-2022 Chronic Disorders of lipid metabolism (14 sources) Hypercholesterolemia; Translations: [Hyperlipidemia, unspecified] Onset: 09-20-2022 03-13-2019 Chronic Essential hypertension (10 sources) Hypertensive disorder; Translations: [Essential (primary) hypertension] Onset: 09-20-2022 03-13-2019 Chronic Genitourinary symptoms and ill-defined conditions (20 sources) Nocturia; Translations: [Retention of urine] Onset: 09-18-2022 10-16-2021 Episodic Hyperplasia of prostate (15 sources) Benign prostatic hypertrophy with outflow obstruction; Translations: [Benign prostatic hyperplasia with lower urinary tract symptoms] Onset: 04-16-2022 Chronic Hypertension with complications and secondary hypertension (1 source) Hypertensive heart disease with heart failure; Translations: [HTN HEART DISEASE W/HEART FAIL] Onset: 09-28-2022 Chronic Inflammatory conditions of male genital organs (1 source) Balanitis; Translations: [Balanitis] Onset: 06-22-2024 Chronic Nutritional deficiencies (1 source) Vitamin D deficiency, unspecified; Translations: [VITAMIN D DEFICIENCY UNSPECIFIED] Onset: 09-28-2022 Chronic Occlusion or stenosis of precerebral arteries (1 source) Occlusion and stenosis of left vertebral artery; Translations: [Occlusion and stenosis of left vertebral artery] Onset: 04-17-2024 Chronic Osteoarthritis (2 sources) Osteoarthritis of right knee joint; Translations: [Unilateral primary osteoarthritis, right knee] Chronic Other aftercare (1 source) Long-term current use of drug therapy; Translations: [emt intermediate (current) use of antithrombotics/antip latelets] Onset: 06-22-2024 Episodic Other and ill-defined heart disease (1 source) [...] Episodic Other diseases of bladder and urethra (15 sources) Male urethral stricture; Translations: [Unspecified urethral stricture, male, unspecified site] Onset: 04-16-2022 Episodic Other diseases of bladder and urethra (1 source) Urethral stricture 06-22-2024 Episodic Other diseases of kidney and ureters (2 sources) Urinary tract obstruction; Translations: [Other obstructive and reflux uropathy] Onset: 04-16-2022 Episodic Other gastrointestinal disorders (9 sources) Scrotal mass 05-18-2019 Episodic Other male genital disorders (9 sources) Disorder of male genital organ 10-16-2021 Episodic Other male genital disorders (9 sources) Spermatocele 11-02-2019 Episodic Other male genital disorders (9 sources) Testicular mass 03-13-2019 Episodic Other nervous system disorders (1 source) Chronic pain; Translations: [Other chronic pain] Chronic Other non-traumatic joint disorders (1 source) Hip pain; Translations: [Pain in left hip] Episodic Other nutritional; endocrine; and metabolic disorders (1 source) Obese class II; Translations: [Body mass index (BMI) 36.0-36.9, adult] Onset: 04-16-2022 Chronic Other nutritional; endocrine; and metabolic disorders (9 sources) Body mass index 30+ - obesity 04-16-2022 Chronic Other nutritional; endocrine; and metabolic disorders (1 source) Hypocalcemia; Translations: [Hypocalcemia] Onset: 04-17-2024 Chronic Vanessa-; endo-; and myocarditis; cardiomyopathy (except that caused by tuberculosis or sexually transmitted disease) (9 sources) Pericarditis 03-13-2019 Episodic Residual codes; unclassified (9 sources) Sleep apnea 03-13-2019 Chronic Residual codes; unclassified (1 source) Sleep apnea, unspecified; Translations: [SLEEP APNEA UNSPECIFIED] Onset: 09-20-2022 Chronic Retinal detachments; defects; vascular occlusion; and retinopathy (9 sources) Retinal detachment 03-13-2019 Episodic Spondylosis; intervertebral disc disorders; other back problems (1 source) Low back pain; Translations: [Low back pain] Episodic Unclassified (1 source) Long-term current use of drug therapy 06-22-2024 Urinary tract infections (12 sources) Urinary tract infectious disease; Translations: [Urinary [...] 09-28-2022 Episodic Other aftercare (1 source) Other shelter (current) drug therapy; Translations: [OTH CLOUD ARCHITECT CURRENT DRUG THERAPY] Onset: 09-20-2022 Episodic Other aftercare (1 source) group home (current) use of aspirin; Translations: [CLOUD ARCHITECT CURRENT USE OF ASPIRIN] Onset: 09-20-2022 Episodic Other male genital disorders (9 sources) Hydrocele Resolved: 08-[birth year]-1989 03-13-2019 Episodic Other [...] Test Name Value Interpretation Reference Range Facility Ambulatory Visit Summaryon 1 Ambulatory Visit Summary Ambulatory Visit Summary KYLER RICHARD :1940 Visit Date:06/22/2024 Ambulatory Visit Instructions Your Diagnosis Gross hematuria Urinary retention BPH with urinary obstruction Urethral stricture Antiplatelet or antithrombotic long-term use Your Care Team Attending Physician - KIM Lino APRN, Lazara Echavarria Primary Care Physician - Bayron Ba MD This Is Your Medications List Contact prescribing physician if questions or concerns aspirin atorvastatin (atorvastatin 40 mg oral tablet) brimonidine ophthalmic (brimonidine ophthalmic 0.2% solution) cetirizine (cetirizine 10 mg Tab) dorzolamide ophthalmic (dorzolamide 2% ophthalmic solution) fluticasone nasal (fluticasone Nasal 0.05 mg/inh [facility]) hyoscyamine (hyoscyamine 0.125 mg sublingual Tab) icosapent (Vascepa 1 g oral capsule) latanoprost ophthalmic (latanoprost ophthalmic 0.005% solution) lisinopril (lisinopril 10 mg oral tablet) metoprolol (Lopressor 25 mg oral tablet) multivitamin (Multi Vitamin+) netarsudil ophthalmic (Rhopressa 0.02% ophthalmic solution) tamsulosin (tamsulosin 0.4 mg Cap) timolol ophthalmic (timolol Opth 0.5% Yvette 5 mL) Procedures Performed Cystoscope (03/17/2019), CABG - Coronary artery bypass graft, Cardiac catheterisation, Cataract extraction, Hip replacement, Hydrocelectomy, Inguinal herniorrhaphy, Large bowel resection, Rotator cuff repair, Tonsillectomy and adenoidectomy. Discharge Vitals Temperature (Temporal Artery) 36.9 ???C Heart Rate (Peripheral) 77 Respiratory Rate 16 Blood Pressure 138/76 Weight 96 kg Weight 211.2 lb What to do next Scheduled Follow-Up Appointments Saturday 11:30 AM EST With: KIM Lino APRN, [place] X Where: [facility] [address] [place] [address]- Medications What How Much When Instructions Unchanged [...] fluticasone nasal (fluticasone Nasal 0.05 mg/ inh [facility]) instill 1 spray into each nostril once [...] that you are currently receiving treatment for. Antiplatelet or antithrombotic long-term use BMI 36.0-36.9,adult BPH with urinary obstruction Cholelithiases Elevated cholesterol Gross hematuria History of UTI Hydrocele Hypertension Kidney stone Left retinal detachment Nocturia Pericarditis Scrotal cyst Sleep apnea Spermatocele Testicular mass Urethral stricture Urethral stricture in male Urinary retention UTI [...] us for your care. Normal [facility] C Urineon 06-04-2024 Bacteria identified Cx Nom (U) Microbiology PROCEDURE: Urine Culture [R1] SOURCE: U Random BODY SITE: COLLECTED DATE/TIME: 06/02/2024 12:49 EDT RECEIVED DATE/TIME: 06/02/2024 17:59 EDT START DATE/TIME: 06/02/2024 17:59 EDT FREE TEXT SOURCE: Zoie FOX, SECURITY ENGINEER-C, Zoie FOX, RENA-C, Lazara Haile X FINAL REPORTS Final Report [...] Locations R1: This test was performed at: [facility], [address] [place] [address], [phone]- , [place], Normal [facility] Comment on above: Performed By: #### 2 [id number] #### [facility] [address] [place] [address] Urology Office/Clinic Noteon 06-02-2024 Urology Office/Clinic Note Urology Office/Clinic Note Chief Complaint [facility] ER follow up HPI Staff 83 year old male patient presents today for a ER follow up from [facility]. Has had a cath from prostate problems, [...] with voice recognition artificial intelligence software, specifically [employer], [employer] and or ZigaVite. Substitutions may have occurred due to the [...] day(s), # 14 cap(s), Refills(s) 0, Pharmacy: [facility], 158, cm, 06/02/24 11:55:00 EDT, Height/Length Dosing, 96, kg, 06/02/24 11:55:00 ED... 2. Urinary retention (R33.9: Retention of urine, unspecified) Has experienced urinary retention in the past. 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 Episode of retention 03/12/2024 at [facility] ER. Patient opted to keep Sanches catheter until cystoscopic evaluation. s/p cystoscopy 04/07/2024 which showed high-grade trabeculation, open prostatic urethra. Patient was to follow-up 3 months with [facility] at that time. 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 Started to have difficulty voiding a day or 2 prior to ER visit. [facility] ER 05/10/2024 with difficulty urinating. There is [...] [facility] (more content not included)... Normal [facility] Comment on above: Result Comment: Elec tronically Signed By: KIM Lino APRN, Lazara Echavarria\.br\Date and Time Signed: 06/02/24 13:23 EDT COMPREHENSIVE METABOLIC PANE Jarett 04-20-2024 Albumin [Mass/Vol] 3.4 g/dL Normal 3.2-5.3 [facility] Comment on above: Performed By: #### C MP ####[facility] ([id number])[address] [place] [address] ALP [Catalytic activity/Vol] 73 U/L Normal 39-130 [facility] Comment on above: Performed By: #### C MP ####[facility] ([id number])[address] [place] [address] 00129 ALT [Catalytic activity/Vol] 21 U/L Normal 0-40 [facility] Comment on above: Performed By: #### C MP ####[facility] ([id number])[address] [place] [address], [place] [address] Anion gap [Moles/Vol] 8 mmol/L Normal 5-15 [facility] Comment on above: Performed By: #### C MP ####[facility] ([id number])[address] [place] [address], [place] [address] AST [Catalytic activity/Vol] 17 U/L Normal 0-41 [facility] Comment on above: Performed By: #### C MP ####[facility] ([id number])[address] [place] [address], [place] [address] Bilirubin [Mass/Vol] 0.7 mg/dL Normal 0.3-1.2 [facility] Comment on above: Performed By: #### C MP ####[facility] ([id number])[address] [place] [address], [place] [address] Calcium [Mass/Vol] 8.4 mg/dL Low 8.5-10.5 [facility] Comment on above: Performed By: #### C MP ####[facility] ([id number])[address] [place] [address], [place] [address] Chloride [Moles/Vol] 102 mmol/L Normal 98-109 [facility] Comment on above: Performed By: #### C MP ####[facility] ([id number])[address] [place] [address], [place] [address] CO2 [Moles/Vol] 24 mmol/L Normal 22-32 [facility] Comment on above: Performed By: #### C MP ####[facility] ([id number])[address] [place] [address], [place] [address] Creatinine [Mass/Vol] 0.85 mg/dL Normal 0.70-1.20 [facility] Comment on above: Result Comment: METH OD TRACEABLE TO IDMS STANDARD Performed By: #### C MP ####[facility] ([id number])[address] [place] [address] GFR/1.73 sq M.predicted among non-blacks MDRD (S/P/Bld) [Vol rate/Area] 87 mL/min/{1.73_m2} Normal >59 [facility] Comment on above: Result Comment: Reported eGFR is based on the CKD-EPI 2020 equation that does not use a race coefficient. Performed By: #### C MP ####[facility] ([id number])[address] [place] [address]49 Glucose [Mass/Vol] 119 mg/dL High 65-99 [facility] Comment on above: Performed By: #### C MP ####[facility] ([id number])[address] [place] [address] 21414 Potassium [Moles/Vol] 3.4 mmol/L Low 3.5-5.0 [facility] Comment on above: Performed By: #### C MP ####[facility] ([id number])[address] [place] [address] 38092 Protein [Mass/Vol] 6.4 g/dL Normal 6.0-8.0 [facility] Comment on above: Performed By: #### C MP ####[facility] ([id number])[address] [place] [address] 73136 Sodium [Moles/Vol] 134 mmol/L Normal 134-146 [facility] Comment on above: Performed By: #### C MP ####[facility] ([id number])[address] [place] [address] 76558 Urea nitrogen [Mass/Vol] 19 mg/dL Normal 5-27 [facility] Comment on above: Performed By: #### C MP ####[facility] ([id number])[address] [place] [address] 35160 CBC AND AUTO DIFFon 08-25-20 24 ABSOLUTE BASOPHIL 0.0 X10E9/L Normal 0.0-0.2 [facility] Comment on above: Performed By: #### C MP, CBCA ####[facility] ([id number])[address] [place] [address] 97273 ABSOLUTE NEUTROPHIL 3.3 X10E9/L Normal 1.5-6.6 [facility] Comment on above: Performed By: #### C MP, CBCA ####[facility] ([id number])[address] [place] [address] 75488 Basophils/100 WBC (Bld) 0.4 % Normal [facility] Comment on above: Performed By: #### C MP, CBCA ####[facility] ([id number])[address] [place] [address] 14482 Eosinophils (Bld) [#/Vol] 0.3 10*3/uL Normal 0.0-0.4 [facility] Comment on above: Performed By: #### C MP, CBCA ####[facility] ([id number])[address] [place] [address] 84735 Eosinophils/100 WBC (Bld) 4.5 % Normal [facility] Comment on above: Performed By: #### C MP, CBCA ####[facility] ([id number])[address] [place] [address] 79530 Erythrocyte distribution width (RBC) [Ratio] 13.4 % Normal 11.5-15.0 [facility] Comment on above: Performed By: #### C MP, CBCA ####[facility] ([id number])[address] [place] [address] 59274 Hematocrit (Bld) [Volume fraction] 43.2 % Normal 39-49 [facility] Comment on above: Performed By: #### C MP, CBCA ####[facility] ([id number])[address] [place] [address] 01680 Hemoglobin (Bld) [Mass/Vol] 15.1 g/dL Normal 13.0-17.0 [facility] Comment on above: Performed By: #### C MP, CBCA ####[facility] ([id number])[address] [place] [address] 00754 Lymphocytes (Bld) [#/Vol] 2.1 10*3/uL Normal 1.0-3.5 [facility] Comment on above: Performed By: #### C MP, CBCA ####[facility] ([id number])[address] [place] [address] 25116 Lymphocytes/100 WBC (Bld) 33.9 % Normal [facility] Comment on above: Performed By: #### C MP, CBCA ####[facility] ([id number])[address] [place] [address] 40363 MCH (RBC) [Entitic mass] 31.9 pg Normal 27-34 [facility] Comment on above: Performed By: #### C MP, CBCA ####[facility] ([id number])[address] [place] [address] 62810 MCHC (RBC) [Mass/Vol] 34.8 g/dL Normal 32-36 [facility] Comment on above: Performed By: #### C MP, CBCA ####[facility] ([id number])[address] [place] [address] 73681 MCV (RBC) [Entitic vol] 92 fL Normal 80-100 [facility] Comment on above: Performed By: #### C MP, CBCA ####[facility] ([id number])[address] [place] [address] 89455 Monocytes (Bld) [#/Vol] 0.5 10*3/uL Normal 0-0.9 [facility] Comment on above: Performed By: #### C MP, CBCA ####[facility] ([id number])[address] [place] [address] 02683 Monocytes/100 WBC (Bld) 8.5 % Normal [facility] Comment on above: Performed By: #### C MP, CBCA ####[facility] ([id number])[address] [place] [address] 79475 Neutrophils/100 WBC (Bld) 52.7 % Normal [facility] Comment on above: Performed By: #### C MP, CBCA ####[facility] ([id number])[address] [place] [address] 57409 Platelet mean volume (Bld) [Entitic vol] 8.2 fL Normal 7-12 [facility] Comment on above: Performed By: #### C MP, CBCA ####[facility] ([id number])[address] [place] [address] 14145 Platelets (Bld) [#/Vol] 140 10*3/uL Low 150-450 [facility] Comment on above: Performed By: #### C MP, CBCA ####[facility] ([id number])[address] [place] [address] 36041 RBC COUNT 4.71 X10E12/L Normal 4.10-5.70 [facility] Comment on above: Performed By: #### C MP, CBCA ####[facility] ([id number])[address] [place] [address] 52817 WBC (Bld) [#/Vol] 6.2 10*3/uL Normal 4.0-11.0 [facility] Comment on above: Performed By: #### C MP, CBCA ####[facility] ([id number])[address] [place] [address] [place] [address] COMPREHENSIVE METABOLIC PANE Jarett 04-19-2024 Albumin [Mass/Vol] 3.4 g/dL Normal 3.2-5.3 [facility] Comment on above: Performed By: #### C SERINA, CBCA ####[facility] ([id number])[address] [place] [address], [place] [address] ALP [Catalytic activity/Vol] 69 U/L Normal 39-130 [facility] Comment on above: Performed By: #### C SERINA, CBCA ####[facility] ([id number])[address] [place] [address] [place] [address] ALT [Catalytic activity/Vol] 18 U/L Normal 0-40 [facility] Comment on above: Performed By: #### C SERINA, CBCA ####[facility] ([id number])[address] [place] [address] [place] [address] Anion gap [Moles/Vol] 9 mmol/L Normal 5-15 [facility] Comment on above: Performed By: #### C SERINA CBCA ####[facility] ([id number])[address] [place] [address] 96938 AST [Catalytic activity/Vol] 23 U/L Normal 0-41 [facility] Comment on above: Performed By: #### C SERINA, CBCA ####[facility] ([id number])[address] [place] [address] [place] [address] Bilirubin [Mass/Vol] 1.0 mg/dL Normal 0.3-1.2 [facility] Comment on above: Result Comment: RESU LTS QUESTIONABLE DUE TO HEMOLYSIS Performed By: #### C SERINA, CBCA ####[facility] ([id number])[address] [place] [address] [place] [address] Calcium [Mass/Vol] 8.3 mg/dL Low 8.5-10.5 [facility] Comment on above: Performed By: #### C MP, CBCA ####[facility] ([id number])[address] [place] [address] [place] [address] Chloride [Moles/Vol] 107 mmol/L Normal 98-109 [facility] Comment on above: Performed By: #### C SURAJ SMALLS ####[facility] ([id number])[address] [place] [address] 27396 CO2 [Moles/Vol] 21 mmol/L Low 22-32 [facility] Comment on above: Performed By: #### C SURAJ SMALLS ####[facility] ([id number])[address] [place] [address] 45552 Creatinine [Mass/Vol] 0.81 mg/dL Normal 0.70-1.20 [facility] Comment on above: Result Comment: METH OD TRACEABLE TO IDMS STANDARD Performed By: #### C SURAJ SMALLS ####[facility] ([id number])[address] [place] [address] 26940 GFR/1.73 sq M.predicted among non-blacks MDRD (S/P/Bld) [Vol rate/Area] 89 mL/min/{1.73_m2} Normal >59 [facility] Comment on above: Result Comment: Reported eGFR is based on the CKD-EPI 2020 equation that does not use a race coefficient. Performed By: #### C SURAJ SMALLS ####[facility] ([id number])[address] [place] [address] 56206 Glucose [Mass/Vol] 125 mg/dL High 65-99 [facility] Comment on above: Performed By: #### C SURAJ SMALLS ####[facility] ([id number])[address] [place] [address] 71852 Potassium [Moles/Vol] 4.0 mmol/L Normal 3.5-5.0 [facility] Comment on above: Result Comment: SPEC IMEN HEMOLYZED, RESULTS INCREASED Performed By: #### C MP, CBCA ####[facility] ([id number])[address] [place] [address] 01623 Protein [Mass/Vol] 6.0 g/dL Normal 6.0-8.0 [facility] Comment on above: Performed By: #### C MP, CBCA ####[facility] ([id number])[address] [place] [address] 63893 Sodium [Moles/Vol] 137 mmol/L Normal 134-146 [facility] Comment on above: Performed By: #### C MP, CBCA ####[facility] ([id number])[address] [place] [address] 22479 Urea nitrogen [Mass/Vol] 16 mg/dL Normal 5-27 [facility] Comment on above: Performed By: #### C MP, CBCA ####[facility] ([id number])[address] [place] [address] 80588 Calcium.ionized (Bld) [Moles /Vol]on 04-19-2024 [facility] 4.6 mg/dL Normal 4.5-5.3 [facility] Comment on above: Performed By: #### 1 994-3 ####[facility] ([id number])[address] [place] [address] 26161 CBC AND AUTO DIFFon 04-18-20 ABSOLUTE BASOPHIL 0.1 X10E9/L Normal 0.0-0.2 [facility] Comment on above: Performed By: #### C BCA, CMP ####[facility] ([id number])[address] [place] [address] 28149#### 23456-6 ####[facility] ([id number])[address] [facility] [address] ABSOLUTE NEUTROPHIL 2.7 X10E9/L Normal 1.5-6.6 [facility] Comment on above: Performed By: #### C BCA, CMP ####[facility] ([id number])[address] [place] [address] 11507#### 42099-7 ####[facility] ([id number])[address], [address] [address] Basophils/100 WBC (Bld) 0.9 % Normal [facility] Comment on above: Performed By: #### C BCA, CMP ####[facility] ([id number])[address] [place] [address] 25334#### 35592-4 ####[facility] ([id number])[address], [address], [place] [address] Eosinophils (Bld) [#/Vol] 0.2 10*3/uL Normal 0.0-0.4 [facility] Comment on above: Performed By: #### C BCA, CMP ####[facility] ([id number])[address] [place] [address] 34079#### 02967-0 ####[facility] ([id number])[address], [address], [place] [address] Eosinophils/100 WBC (Bld) 4.1 % Normal [facility] Comment on above: Performed By: #### C BCA, CMP ####[facility] ([id number])[address] [place] [address] 52664#### 82497-2 ####[facility] ([id number])[address], [address], [place] [address] Erythrocyte distribution width (RBC) [Ratio] 13.8 % Normal 11.5-15.0 [facility] Comment on above: Performed By: #### C BCA, CMP ####[facility] ([id number])[address] [place] [address] 17777#### 70565-2 ####[facility] ([id number])[address], [address] [address] Hematocrit (Bld) [Volume fraction] 41.2 % Normal 39-49 [facility] Comment on above: Performed By: #### C BCA, CMP ####[facility] ([id number])[address] [place] [address] 25963#### 59688-4 ####[facility] ([id number])[address] [address] Hemoglobin (Bld) [Mass/Vol] 14.1 g/dL Normal 13.0-17.0 [facility] Comment on above: Performed By: #### C BCA, CMP ####[facility] ([id number])[address] [place] [address] 31837#### 08582-9 ####[facility] ([id number])[address] [address] Lymphocytes (Bld) [#/Vol] 1.9 10*3/uL Normal 1.0-3.5 [facility] Comment on above: Performed By: #### C BCA, CMP ####[facility] ([id number])[address] [place] [address] 09509#### 14858-4 ####[facility] ([id number])[address] [address] Lymphocytes/100 WBC (Bld) 35.6 % Normal [facility] Comment on above: Performed By: #### C BCA, CMP ####[facility] ([id number])[address] [place] [address] 13414#### 80707-9 ####[facility] ([id number])[address], [address] [address] MCH (RBC) [Entitic mass] 31.7 pg Normal 27-34 [facility] Comment on above: Performed By: #### C BCA, CMP ####[facility] ([id number])[address] [place] [address] 37222#### 46991-4 ####[facility] ([id number])[address], [address] [address] MCHC (RBC) [Mass/Vol] 34.2 g/dL Normal 32-36 [facility] Comment on above: Performed By: #### C BCA, CMP ####[facility] ([id number])[address] [place] [address] 92514#### 37507-6 ####[facility] ([id number])[address] [address] [address] MCV (RBC) [Entitic vol] 93 fL Normal 80-100 [facility] Comment on above: Performed By: #### C BCA, CMP ####[facility] ([id number])[address] [place] [address] 41527#### 21043-8 ####[facility] ([id number])[address] [address] [address] Monocytes (Bld) [#/Vol] 0.5 10*3/uL Normal 0-0.9 [facility] Comment on above: Performed By: #### C BCA, CMP ####[facility] ([id number])[address] [place] [address] 31022#### 41245-9 ####[facility] ([id number])[address] [address] [address] Monocytes/100 WBC (Bld) 9.4 % Normal [facility] Comment on above: Performed By: #### C BCA, CMP ####[facility] ([id number])[address] [place] [address] 62322#### 43579-8 ####[facility] ([id number])[address], [address], [place] [address] Neutrophils/100 WBC (Bld) 50.0 % Normal [facility] Comment on above: Performed By: #### C BCA, CMP ####[facility] ([id number])[address] [place] [address] 85300#### 89703-3 ####[facility] ([id number])[address], [address] [address] Platelet mean volume (Bld) [Entitic vol] 8.2 fL Normal 7-12 [facility] Comment on above: Performed By: #### C BCA, CMP ####[facility] ([id number])[address] [place] [address] 91916#### 04874-0 ####[facility] ([id number])[address], [address], [place] [address] Platelets (Bld) [#/Vol] 159 10*3/uL Normal 150-450 [facility] Comment on above: Performed By: #### C BCA, CMP ####[facility] ([id number])[address] [place] [address] 67193#### 70253-1 ####[facility] ([id number])[address], [address] [address] RBC COUNT 4.45 X10E12/L Normal 4.10-5.70 [facility] Comment on above: Performed By: #### C BCA, CMP ####[facility] ([id number])[address] [place] [address] 58510#### 63689-1 ####[facility] ([id number])[address] [address] WBC (Bld) [#/Vol] 5.4 10*3/uL Normal 4.0-11.0 [facility] Comment on above: Performed By: #### C BCA, CMP ####[facility] ([id number])[address] [place] [address] 54583#### 47586-0 ####[facility] ([id number])[address] [place] [address], [address] [address] COMPREHENSIVE METABOLIC PANE Jarett 04-18-2024 Albumin [Mass/Vol] 3.3 g/dL Normal 3.2-5.3 [facility] Comment on above: Performed By: #### C BCA, CMP ####[facility] ([id number])[address] [place] [address] 97290#### 44643-4 ####[facility] ([id number])[address] [place] [address] ALP [Catalytic activity/Vol] 67 U/L Normal 39-130 [facility] Comment on above: Performed By: #### C BCA, CMP ####[facility] ([id number])[address] [place] [address] 81313#### 34408-7 ####[facility] ([id number])[address] [facility] [address] [place] [address] ALT [Catalytic activity/Vol] 18 U/L Normal 0-40 [facility] Comment on above: Performed By: #### C BCA, CMP ####[facility] ([id number])[address] [place] [address] 93512#### 25252-4 ####[facility] ([id number])[address], [address], [place] [address] Anion gap [Moles/Vol] 7 mmol/L Normal 5-15 [facility] Comment on above: Performed By: #### C BCA, CMP ####[facility] ([id number])[address] [place] [address] 30996#### 24178-6 ####[facility] ([id number])[address], [address], [place] [address] AST [Catalytic activity/Vol] 17 U/L Normal 0-41 [facility] Comment on above: Performed By: #### C BCA, CMP ####[facility] ([id number])[address] [place] [address] 55815#### 06436-7 ####[facility] ([id number])[address], [address], [place] [address] Bilirubin [Mass/Vol] 0.8 mg/dL Normal 0.3-1.2 [facility] Comment on above: Performed By: #### C BCA, CMP ####[facility] ([id number])[address] [place] [address] 89418#### 15449-8 ####[facility] ([id number])[address], [address], [place] [address] Calcium [Mass/Vol] 8.2 mg/dL Low 8.5-10.5 [facility] Comment on above: Performed By: #### C BCA, CMP ####[facility] ([id number])[address] [place] [address] 62454#### 29576-5 ####[facility] ([id number])[address], [address], [place] [address] Chloride [Moles/Vol] 108 mmol/L Normal 98-109 [facility] Comment on above: Performed By: #### C BCA, CMP ####[facility] ([id number])[address] [place] [address] 58322#### 37634-4 ####[facility] ([id number])[address], [address], [place] [address] CO2 [Moles/Vol] 23 mmol/L Normal 22-32 [facility] Comment on above: Performed By: #### C BCA, CMP ####[facility] ([id number])[address] [place] [address] 36677#### 00788-9 ####[facility] ([id number])[address], [address], [place] [address] Creatinine [Mass/Vol] 0.75 mg/dL Normal 0.70-1.20 [facility] Comment on above: Result Comment: METH OD TRACEABLE TO IDMS STANDARD Performed By: #### C BCA, CMP ####[facility] ([id number])[address] [place] [address] 75472#### 06461-4 ####[facility] ([id number])[address], [address] [place] [address] eGFR (CKD-EPI) NON-RACE DEPENDENT >90 Normal >59 [facility] Comment on above: Result Comment: Reported eGFR is based on the CKD-EPI 2021 equation that does not use a race coefficient. Performed By: #### C BCA, CMP ####[facility] ([id number])[address] [place] [address] 62849#### 30023-1 ####[facility] ([id number])[address], [place] [address] Glucose [Mass/Vol] 110 mg/dL High 65-99 [facility] Comment on above: Performed By: #### C BCA, CMP ####[facility] ([id number])[address] [place] [address] 93472#### 90173-7 ####[facility] ([id number])[address], [address], [place] [address] Potassium [Moles/Vol] 3.5 mmol/L Normal 3.5-5.0 [facility] Comment on above: Performed By: #### C BCA, CMP ####[facility] ([id number])[address] [place] [address] 46551#### 99250-3 ####[facility] ([id number])[address], [address] [address] Protein [Mass/Vol] 5.9 g/dL Low 6.0-8.0 [facility] Comment on above: Performed By: #### C BCA, CMP ####[facility] ([id number])[address] [place] [address] 46663#### 98143-3 ####[facility] ([id number])[address], [address], [place] [address] Sodium [Moles/Vol] 138 mmol/L Normal 134-146 [facility] Comment on above: Performed By: #### C BCA, CMP ####[facility] ([id number])[address] [place] [address] 36560#### 99132-4 ####[facility] ([id number])[address], [address] [address] Urea nitrogen [Mass/Vol] 16 mg/dL Normal 5-27 [facility] Comment on above: Performed By: #### C BCA, CMP ####[facility] ([id number])[address] [place] [address] [place] [address]#### 81612-6 ####[facility] ([id number])[address] [place] [address], [address] [address] Lipid 1996 panelon 4 Cholesterol [Mass/Vol] 117 mg/dL Low 150-200 [facility] Comment on above: Performed By: #### Alessandro DE PAZ, CMP ####[facility] ([id number])[address] [place] [address] 51109#### 41057-5 ####[facility] ([id number])[address] [place] [address], [address] [address] Cholesterol in HDL [Mass/Vol] 28 mg/dL Low >39 [facility] Comment on above: Result Comment: HDL <40 mg/dL - High Risk HDL > or = 40mg/dL- Desirable HDL >60 mg/dL - Negative Risk Performed By: #### Alessandro DE PAZ, CMP ####[facility] ([id number])[address] [place] [address] 07335#### 23270-6 ####[facility] ([id number])[address] [place] [address], [address] [address] Cholesterol in LDL [Mass/Vol] 35 mg/dL Normal <130 [facility] Comment on above: Result Comment: LDL <100 mg/dL - Desirable LDL >160 mg/dL - High Risk Performed By: #### Alessandro BCA, CMP ####[facility] ([id number])[address] [place] [address] 45601#### 06036-7 ####[facility] ([id number])[address] [address] Cholesterol in VLDL [Mass/Vol] 54 mg/dL High 0-30 [facility] Comment on above: Performed By: #### C BCA, CMP ####[facility] ([id number])[address] [place] [address] 54585#### 56016-2 ####[facility] ([id number])[address] [address] CHOLESTEROL:HDL 4.2 Normal 1.0-5.0 [facility] Comment on above: Performed By: #### C BCA, CMP ####[facility] ([id number])[address] [place] [address] 31541#### 37233-5 ####[facility] ([id number])[address] [address] Triglyceride [Mass/Vol] 270 mg/dL High 27-150 [facility] Comment on above: Performed By: #### C BCA, CMP ####[facility] ([id number])[address] [place] [address] 03355#### 57705-9 ####[facility] ([id number])[address] [address] POTASSIUMon 04-18-2024 Potassium [Moles/Vol] 4.1 mmol/L Normal 3.5-5.0 [facility] Comment on above: Performed By: #### 2 823-3 ####[facility] ([id number])[address] [place] [address] BASIC METABOLIC PANLon 04-17 Anion gap [Moles/Vol] 5 mmol/L Normal 5-15 [facility] Comment on above: Performed By: #### C BCA, BMP, PINR, 39108-5, 60610-4, 3016-3, 302-7 #### [facility] ([id number]) [address] [place] [address] #### HA1C #### [facility] ([id number]) [address], [address] [place] [address] Calcium [Mass/Vol] 8.2 mg/dL Low 8.5-10.5 [facility] Comment on above: Performed By: #### C BCA, BMP, PINR, 02996-8, 74076-1, 3016-3, 302-7 #### [facility] ([id number]) [address] [place] [address] #### HA1C #### [facility] ([id number]) [address], [address] [place] [address] Chloride [Moles/Vol] 105 mmol/L Normal 98-109 [facility] Comment on above: Performed By: #### C BCA, BMP, PINR, 24904-1, 57084-1, 3015-3, 7 #### [facility] ([id number]) [address] [place] [address] #### HA1C #### [facility] ([id number]) [address], [address] [place] [address] CO2 [Moles/Vol] 26 mmol/L Normal 22-32 [facility] Comment on above: Performed By: #### C BCA, BMP, PINR, 43985-7, 30157-2, 3016-3, 302-7 #### [facility] ([id number]) [address] [place] [address] 10284 #### HA1C #### [facility] ([id number]) [address], [address] [place] [address] Creatinine [Mass/Vol] 0.97 mg/dL Normal 0.70-1.20 [facility] Comment on above: Result Comment: METH OD TRACEABLE TO IDMS STANDARD Performed By: #### C BCA, BMP, PINR, 02428-1, 94111-1, 3016-3, 3024-7 #### [facility] ([id number]) [address] [place] [address] #### HA1C #### [facility] ([id number]) [address] [place] [address] GFR/1.73 sq M.predicted among non-blacks MDRD (S/P/Bld) [Vol rate/Area] 78 mL/min/{1.73_m2} Normal >59 [facility] Comment on above: Result Comment: Reported eGFR is based on the CKD-EPI 2020 equation that does not use a race coefficient. Performed By: #### C BCA, BMP, PINR, 51029-5, 29056-2, 3016-3, 3024-7 #### [facility] ([id number]) [address] [place] [address] #### HA1C #### [facility] ([id number]) [address] [place] [address] Glucose [Mass/Vol] 108 mg/dL High 65-99 [facility] Comment on above: Performed By: #### C BCA, BMP, PINR, 31850-1, 45181-4, 3016-3, 3024-7 #### [facility] ([id number]) [address] [place] [address] #### HA1C #### [facility] ([id number]) [address], [address] [place] [address] Potassium [Moles/Vol] 3.7 mmol/L Normal 3.5-5.0 [facility] Comment on above: Performed By: #### C BCA, BMP, PINR, 90069-2, 84105-4, 3015-3, 7 #### [facility] ([id number]) [address] [place] [address] #### HA1C #### [facility] ([id number]) [address] [place] [address] Sodium [Moles/Vol] 136 mmol/L Normal 134-146 [facility] Comment on above: Performed By: #### C BCA, BMP, PINR, 48847-6, 56496-5, 3015-3, 7 #### [facility] ([id number]) [address] [place] [address] #### HA1C #### [facility] ([id number]) [address] [place] [address] Urea nitrogen [Mass/Vol] 23 mg/dL Normal 5-27 [facility] Comment on above: Performed By: #### C BCA, BMP, PINR, 97541-6, 53559-2, 3, 7 #### [facility] ([id number]) [address] [place] [address] #### HA1C #### [facility] ([id number]) [address], [address] [place] [address] CBC AND AUTO DIFFon 04-17- 24 ABSOLUTE BASOPHIL 0.0 X10E9/L Normal 0.0-0.2 [facility] Comment on above: Performed By: #### C BCA, BMP, PINR, 97749-1, 90314-2, 3015-3, 7 #### [facility] ([id number]) [address] [place] [address] #### HA1C #### [facility] ([id number]) [address], [address] [place] [address] ABSOLUTE NEUTROPHIL 2.4 X10E9/L Normal 1.5-6.6 [facility] Comment on above: Performed By: #### C BCA, BMP, PINR, 23339-9, 72475-4, 6-3, 3023-7 #### [facility] ([id number]) [address] [place] [address] #### HA1C #### [facility] ([id number]) [address] [facility] [facility] [place] [address] Basophils/100 WBC (Bld) 0.8 % Normal [facility] Comment on above: Performed By: #### C BCA, BMP, PINR, 03240-8, 56382-4, 3015-3, 7 #### [facility] ([id number]) [address] [place] [address] #### HA1C #### [facility] ([id number]) [address] [facility], [address] [place] [address] Eosinophils (Bld) [#/Vol] 0.2 10*3/uL Normal 0.0-0.4 [facility] Comment on above: Performed By: #### C BCA, BMP, PINR, 94401-1, 47157-5, 3015-3, 7 #### [facility] ([id number]) [address] [place] [address] #### HA1C #### [facility] ([id number]) [address], [address] [place] [address] Eosinophils/100 WBC (Bld) 4.1 % Normal [facility] Comment on above: Performed By: #### C BCA, BMP, PINR, 95488-3, 94585-3, 3016-3, 3024-7 #### [facility] ([id number]) [address] [place] [address] 34157 #### HA1C #### [facility] ([id number]) [address], [address] [place] [address] Erythrocyte distribution width (RBC) [Ratio] 13.6 % Normal 11.5-15.0 [facility] Comment on above: Performed By: #### C BCA, BMP, PINR, 70711-6, 98506-6, 3016-3, 3024-7 #### [facility] ([id number]) [address] [place] [address] #### HA1C #### [facility] ([id number]) [address], [address] [place] [address] Hematocrit (Bld) [Volume fraction] 41.0 % Normal 39-49 [facility] Comment on above: Performed By: #### C BCA, BMP, PINR, 90469-0, 65475-1, 3016-3, 302-7 #### [facility] ([id number]) [address] [place] [address] 97162 #### HA1C #### [facility] ([id number]) [address], [address] [place] [address] Hemoglobin (Bld) [Mass/Vol] 14.0 g/dL Normal 13.0-17.0 [facility] Comment on above: Performed By: #### C BCA, BMP, PINR, 60594-8, 04469-9, 3016-3, 3024-7 #### [facility] ([id number]) [address] [place] [address] #### HA1C #### [facility] ([id number]) [address], [address] [place] [address] Lymphocytes (Bld) [#/Vol] 2.3 10*3/uL Normal 1.0-3.5 [facility] Comment on above: Performed By: #### C BCA, BMP, PINR, 88864-7, 35011-3, 3016-3, 302-7 #### [facility] ([id number]) [address] [place] [address] 475[address] #### HA1C #### [facility] ([id number]) [address], [address] [place] [address] Lymphocytes/100 WBC (Bld) 41.5 % Normal [facility] Comment on above: Performed By: #### C BCA, BMP, PINR, 33596-3, 99507-7, 3016-3, 3023-7 #### [facility] ([id number]) [address] [place] [address] 11934 #### HA1C #### [facility] ([id number]) [address], [address] [place] [address] MCH (RBC) [Entitic mass] 31.7 pg Normal 27-34 [facility] Comment on above: Performed By: #### C BCA, BMP, PINR, 51332-5, 08297-0, 6-3, 3023-7 #### [facility] ([id number]) [address] [place] [address] 798[address] #### HA1C #### [facility] ([id number]) [address], [address] [place] [address] MCHC (RBC) [Mass/Vol] 34.1 g/dL Normal 32-36 [facility] Comment on above: Performed By: #### C BCA, BMP, PINR, 72481-7, 04146-5, 3016-3, 302-7 #### [facility] ([id number]) [address] [place] [address] 33761 #### HA1C #### [facility] ([id number]) [address], [address] [place] [address] MCV (RBC) [Entitic vol] 93 fL Normal 80-100 [facility] Comment on above: Performed By: #### C BCA, BMP, PINR, 55199-1, 84801-2, 3016-3, 3024-7 #### [facility] ([id number]) [address] [place] [address] 03555 #### HA1C #### [facility] ([id number]) [address], [address] [place] [address] Monocytes (Bld) [#/Vol] 0.5 10*3/uL Normal 0-0.9 [facility] Comment on above: Performed By: #### C BCA, BMP, PINR, 39013-8, 88567-3, 3016-3, 3024-7 #### [facility] ([id number]) [address] [place] [address] 10379 #### HA1C #### [facility] ([id number]) [address], [address] [place] [address] Monocytes/100 WBC (Bld) 9.9 % Normal [facility] Comment on above: Performed By: #### C BCA, BMP, PINR, 73021-6, 10700-7, 3016-3, 3024-7 #### [facility] ([id number]) [address] [place] [address] 05158 #### HA1C #### [facility] ([id number]) [address], [address] [place] [address] Neutrophils/100 WBC (Bld) 43.7 % Normal [facility] Comment on above: Performed By: #### C BCA, BMP, PINR, 49373-6, 17891-9, 3016-3, 3024-7 #### [facility] ([id number]) [address] [place] [address] 89882 #### HA1C #### [facility] ([id number]) [address], [address] [place] [address] Platelet mean volume (Bld) [Entitic vol] 8.2 fL Normal 7-12 [facility] Comment on above: Performed By: #### C BCA, BMP, PINR, 74713-8, 50837-2, 3016-3, 302-7 #### [facility] ([id number]) [address] [place] [address] 8[address]38 #### HA1C #### [facility] ([id number]) [address], [address] [place] [address] Platelets (Bld) [#/Vol] 150 10*3/uL Normal 150-450 [facility] Comment on above: Performed By: #### C BCA, BMP, PINR, 43363-2, 50143-1, 3016-3, 302-7 #### [facility] ([id number]) [address] [place] [address] 80[address] #### HA1C #### [facility] ([id number]) [address], [address] [place] [address] RBC COUNT 4.41 X10E12/L Normal 4.10-5.70 [facility] Comment on above: Performed By: #### C BCA, BMP, PINR, 52599-6, 66822-6, 3016-3, 302-7 #### [facility] ([id number]) [address] [place] [address] 89384 #### HA1C #### [facility] ([id number]) [address] [place] [address] WBC (Bld) [#/Vol] 5.4 10*3/uL Normal 4.0-11.0 [facility] Comment on above: Performed By: #### C BCA, BMP, PINR, 56503-4, 69321-0, 3016-3, 3024-7 #### [facility] ([id number]) [address] [place] [address], [place] [address] #### HA1C #### [facility] ([id number]) [address] [place] [address] CT CTA CAROTIDon 04-17-[address] CTA CAROTID History: Neuro deficit, acute, stroke suspected. Slurred speech Exam/Technique: CT angiogram performed following intravenous administration of 100 mL of Omnipaque 350. Coronal and sagittal and 3-D volume rendered maximum intensity projection images generated and reviewed under concurrent physician supervision. Automated exposure control utilized. The [place] Symptomatic Carotid Endarterectomy Trial (NASCET) method for [...] Armenta MD on 04/17/2024 9:08 AM Normal [facility] CT CTA HEADon 04-17-2024 CT CTA HEAD [...] posterior cerebral arteries. 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 Unremarkable vertebral, basilar arteries. 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 Unremarkable appearance of the orbits, visualized suprahyoid neck, scalp, brain parenchyma [which is suboptimally assessed]. Impression: No acute large vessel occlusion the major chilkoot of Mtz arterial structures. If there is persistent concern for ischemia, recommend MR. All CT scans at this facility use dose modulation, iterative reconstruction, and/or weight based dosing when appropriate to reduce radiation dose to as low as reasonably achievable. Finalized by Lázaro Solomon MD on 04/17/2024 9:00 AM Normal [facility] FREE T4on 04-17-2024 Free T4 [Mass/Vol] 0.91 ng/dL Normal 0.61-1.60 [facility] Comment on above: Performed By: #### C BCA, BMP, PINR, 08070-4, 70672-2, 3016-3, 3024-7 #### [facility] ([id number]) [address] [place] [address], [place] [address] #### HA1C #### [facility] ([id number]) [address] [facility] [facility] [place] [address] Glucose Glucometer (BldC) [M ass/Vol]on 04-17-2024 Glucose [Mass/Vol] 94 mg/dL Normal 65-99 [facility] HGB A1C (GLYCO-HGB)on 2023 Glucose [Mass/Vol] 134 mg/dL Normal [facility] Comment on above: Performed By: #### C BCA, BMP, PINR, 87382-7, 38381-6, 3016-3, 3024-7 ####[facility] ([id number])[address] [place] [address] 42896#### HA1C ####[facility] ([id number])[facility], [address] [place] [address] HbA1c (Bld) [Mass fraction] 6.3 % High 4.4-5.6 [facility] Comment on above: Result Comment: NOTE ADA Guidelines Result HgbA1c Normal : less than 5.7 % Prediabetes : 5.7 % to 6.4 % Diabetes : > 6.4 % Use with caution in patients with abnormal hemoglobin variants as the half-life of red blood cells and in vivo glycation rates are affected. Performed By: #### C BCA, BMP, PINR, 15926-5, 80780-6, 3016-3, 3024-7 ####[facility] ([id number])[address] [place] [address] 47731#### HA1C ####[facility] ([id number])[address] [facility], [address] [place] [address] Lipid 1996 panelon 4 Cholesterol [Mass/Vol] 121 mg/dL Low 150-200 [facility] Comment on above: Performed By: #### 8 9579-7 ####[facility] ([id number])[address] [place] [address] 27706#### 05842-0, 44464-2, 39131-5 ####[facility] ([id number])[address], [address] [place] [address] Cholesterol in HDL [Mass/Vol] 34 mg/dL Low >39 [facility] Comment on above: Result Comment: HDL <40 mg/dL - High Risk HDL > or = 40mg/dL- Desirable HDL >60 mg/dL - Negative Risk Performed By: #### 8 9579-7 ####[facility] ([id number])[address] [place] [address] 29804#### 21536-6, 72381-9, 65336-7 ####[facility] ([id number])[address], [address] [place] [address] 19362 Cholesterol in LDL [Mass/Vol] 43 mg/dL Normal <130 [facility] Comment on above: Result Comment: LDL <100 mg/dL - Desirable LDL >160 mg/dL - High Risk Performed By: #### 8 9579-7 ####[facility] ([id number])[address] [place] [address] 73518#### 76930-9, 02654-4, 76810-8 ####[facility] ([id number])[address], [address] [place] [address] Cholesterol in VLDL [Mass/Vol] 44 mg/dL High 0-30 [facility] Comment on above: Performed By: #### 8 9579-7 ####[facility] ([id number])[address] [place] [address] 42469#### 60458-2, 32987-7, 67572-3 ####[facility] ([id number])[address], [address] [place] [address]461 CHOLESTEROL:HDL 3.6 Normal 1.0-5.0 [facility] Comment on above: Performed By: #### 8 9579-7 ####[facility] ([id number])[address] [place] [address] 11197#### 81908-6, 08564-1, 61361-8 ####[facility] ([id number])[address], [address] [place] [address] 98552 Triglyceride [Mass/Vol] 218 mg/dL High 27-150 [facility] Comment on above: Performed By: #### 8 9579-7 ####[facility] ([id number])[address] [place] [address] 16825#### 39712-5, 34428-0, 03950-2 ####[facility] ([id number])[address], [address] [place] [address] 74230 MR BRAIN WO CONTon 4 MR BRAIN [...] midline shift or extra axial fluid collection. Jibb-fz-rmtjexva central greater than peripheral volume loss. Partially [...] Chi Hendrix on 04/17/2024 12:22 PM Normal [facility] Nuclear Ab IA Ql (S)on 04-17 [place] Screen w/reflex Negative Normal NEG [facility] Comment on above: Result Comment: Testing performed using multiplex flow immunoassay. Eleven different antigens associated with systemic autoimmune diseases (dsDNA,Sm,Sm/PIGMENT FURNACE TENDER,PIGMENT FURNACE TENDER,Chromatin, SSA,SSB,Vesna-1,Scl70,Ribo P,Centromere B) are included in this screening test. Performed By: #### 8 9579-7 ####[facility] ([id number])[address] [place] [address] 94243#### 14586-7, 83901-5, 25533-2 ####[facility] ([id number])[address] [facility], [address] [place] [address]209 PROTIME AND INRon 04-17-2024 INR Coag (PPP) [Relative time] 1.2 {INR} High 0.8-1.1 [facility] Comment on above: Performed By: #### C BCA, BMP, PINR, 28992-8, 24559-5, 3016-3, 3024-7 #### [facility] ([id number]) [address] [place] [address] 20290 #### HA1C #### [facility] ([id number]) [address] [facility], [address] [place] [address] 18256 PT Coag (PPP) [Time] 13.6 s High 9.8-13.2 [facility] Comment on above: Result Comment: NEW REFERENCE RANGE Performed By: #### C BCA, BMP, PINR, 20023-9, 28474-0, 3016-3, 3024-7 #### [facility] ([id number]) [address] [place] [address] 46218 #### HA1C #### [facility] ([id number]) [address], [address] [place] [address] 17605 Rheumatoid factor Nephelomet ry Qn (S)on 04-17-2024 RHEUMATOID FACTOR 36 IU/mL High <20 [facility] Comment on above: Performed By: #### 8 9579-7 ####[facility] ([id number])[address] [place] [address] 94657#### 51951-3, 68266-8, 35943-9 ####[facility] ([id number])[address] [facility], [address] [place] [address] 82412 TSH Qnon 04-17-2024 TSH 1.23 uIU/mL Normal 0.49-4.67 [facility] Comment on above: Performed By: #### C BCA, BMP, PINR, 68467-4, 14467-7, 3016-3, 3024-7 #### [facility] ([id number]) [address] [place] [address] 37801 #### HA1C #### [facility] ([id number]) [address] [facility], [address] [place] [address] Troponin I.cardiac High sens itivity method [Mass/Vol]on 04-17-2024 1 HOUR TROP I, HIGH SENSITIVITY 8 ng/L Normal <21 [facility] Comment on above: Performed By: #### 8 9579-7 ####[facility] ([id number])[address] [place] [address] 92437#### 74388-6, 69245-0, 16873-4 ####[facility] ([id number])[address] [facility], [address] [place] [address]198 TROPONIN I, HIGH SENSITIVITY 7 ng/L Normal <21 [facility] Comment on above: Performed By: #### C BCA, BMP, PINR, 24985-3, 70387-8, 3016-3, 3024-7 #### [facility] ([id number]) [address] [place] [address] #### HA1C #### [facility] ([id number]) [address] [facility], [address] [place] [address] aPTT Coag (PPP) [Time]on aPTT Coag (Bld) [Time] 29 s Normal 26-37 [facility] Comment on above: Result Comment: NEW REFERENCE RANGE Performed By: #### C BCA, BMP, PINR, 95737-4, 37755-7, 3016-3, 3024-7 #### [facility] ([id number]) [address] [place] [address] 35257 #### HA1C #### [facility] ([id number]) [address] [facility], [address] [place] [address] Urology Office/Clinic Noteon 03-20-2024 Urology Office/Clinic Note Urology Office/Clinic Note Chief Complaint ER f/u *Urinary Retention HPI Staff PRW pt Last seen in our office by INEZ 02/11/24 DX: BPH, Urethral Stricture, Gross Hematuria & UTI PVR at that time 108ml Here today to follow up to [facility] ER 03/11/24 CC: Urinary Retention PVR [...] (cc): 02/11/24 - 108 Pt presented to [facility] ER 03/11/24 with UR. PVR >230 [...] visit. Follo (more content not included)... Normal [facility] Comment on above: Result Comment: Elec tronically Signed By: KIM Lino APRN, Lazara Echavarria\.br\Date and Time Signed: 03/20/24 08:02 EDT\.br\Electronically Co-Signed By: Aleida Sapp\.jeffy\Date and Time Co-Signed: 03/17/24 15:28 EDT Ambulatory [...] solution) fluticasone nasal (fluticasone Nasal 0.05 mg/inh [employer] [facility]) hyoscyamine (hyoscyamine 0.125 mg sublingual Tab) icosapent [...] APRN, [place] [facility] Where: [facility] [address] [place] [address] [place] [address]- You Need to Schedule the Following Appointments [...] fluticasone nasal (fluticasone Nasal 0.05 mg/ inh [employer] [facility] [facility]) instill 1 spray into each nostril once [...] urinary ret (more content not included)... Normal [facility] Coding Summary.on 02-19-2024 Coding Summary. UBWVYelg94QNg1rOy+PG hlYWQ+UB7KLYEpN03fmK XqtZ1yI5WCTIgJJizaPY QZBKlMBtBjedIhQP1etA NjZXJu IC8+PA4nYPHrBfxmvOSj n5M2aTL7H02vno5rGQyd dZG5TCEhFlUskczwz2xh eTf6KKfsRakzEoSm IWHngS68IBJ9fJ20Fi89 kCQuwVRty4jvyOw4FuVh VSQbEHQ3bCjhHKmwh9Vj JDXuB26aeTMtx5S4 IGNvbGxhcHNlOyBlbXB0 dP6vIIcnurdeh9clvceu Jbz9gk49cVGuk5A4nJT3 K2DuklP3VKNawNLz JclqoEFTyX2xbuqtp4fo osawGhHrDWBrDGa1IZr2 CGRbbGzzUmTgWP47LVF5 HZEsfnIiM8PnGEDk jDnyOtP6z5L5Aj9BS3WX ErtkI0MHFZEXTGyjyBW+ EH53ps41R7ZrXcyrGrq7 MYAzOQQ0mNS4mU1l FYAnVAnlp7F7yAW9A8Bc npRkvu7xm8wdCRJpWHmn N70piYMzm9Y8EPOfqOU5 WALqzSkxGyTbqS09 Oyc+FIMsiMups9CbWckj l0gyo4ltaEh1TxzkJGJc maNekXnyGDC5h9AjRe5e XKTvlXJ0xUU2zE0g JmAlGtR2GXjrD986YhQy cJHqXpbnQ23nU5KidZC+ FCXjGse3UWGkiQebKD3n Y1JpWVDiccrtaQFu fCxyTS0rTPNofrsvAPEl cA4hHLBlK2y9JuWuYtU3 QEvtC9HzLESrsjqpVd27 fM0mXuPxRpE9SEox D1SllvE6SXMtfUNgYSig GBM2N17pd2P5KAYbNJLj XHI2yXD8eX6geDrnbrxj bGVmdDsgdmVydGlj KBmlSHijO171GGLdjQen PkNvZGluZyBEYXRlOiAg MDYvMjYvMjAyNDwvdGQ+ GETuUBW8vGdgLVBa kWSdPUukIw9dgCkosEad FW7wLMFjyvroLIItpW4y OPYshCOuaXxjQO8kBMMi uulxr539BjBhJKT7 QEZpoGPuN9BsnY8fJyTj DLVdHBYaR1CcoDFwDZls I218HBylOcZ9GDYxomVm S1VyXVTlpSurEaE8 a9P2Ye4Ng5PzbuekJ8Le rAPkNdYkGczdPWn8O9Xi PjwvdHI+BF05KHSgCZ18 JNd2PJU9aKyiBKgo VBOuS4KnqT3iEkGzBBSw ZGRkOyc+PHRhYmxlIHdp ZHRoPScxMDAlJyBzdHls JI7vKt0jTQXkNPAu jXwndBNhZpKkz3ybBPOb CDykOP7pyZpjQ6XiaVF5 HFFaz0h8Pv51O88xU0Kz dXA+GDXvxYN8uHV9 mU9jAsRlDjB5LSuzY049 DtFrgRDrTqqba7wmi1jx fAk7OlC2ZFTpjcAjbBas OQL8l9KeTh83R07m IHdpZHRoPSIxNSUiIHZh nLfrqj7hrY3uZn8+PGNv mPK4aPB5lI8eClTgHdH2 HWreZ447LyQvkOFp Rzwip3ovn1vqqSk0RiGk WIPqcdSjqPxrZVE1o6Jd Co50T2InbIakq2XgNwr0 ha21hMRhn3E0eXO9 N2FvIBWytzcmtGWxuHet FV1aETWsgcqvLCJjwG8g MWIcY5p1YpTgKwJ2DFgs K3PdrcT7DEXfoRUh KNEecCXVjN7dibxci5qw togbEePdJOKqXWj3SUm9 BQHmuSbnGhQxDHI4PdR4 NPR6aFAeeE9psXdk ahfkmU4vPwf+FGO2tOBz tWEFUQ1rZxctoIM+PHRk URN7oLhdZFjsQQCkoE8c JCZpK4e1AaTiUnX7 DIpgS0SrmjX2JBIuhHJe EKNfqBHFjP8ommgut7wm rawhHoHeIMZeTJh5LKx2 LWFsaWduOiBsZWZ0 ShH3GUR8nOAynA3pjYld bkhjaQ2yEnz+QmlydGgg QFP7RWa4W5CfCpm6NVJy tFvmLU8tdWTzARal Gx8yxZvcxWybRJ6nTMLd pyken840MfRfw7jxMMCb zSXuBAvwRLS7B45mt1X0 YAUwOEJtKCW0yKJ8 vR1hkCnmxrspkOBhfKrs rlHfjEjrTRplVSyqQ242 XTPgoHhgUgIhPJs7W5Xk Gjz7FGYmlVgkRT8g xSPzNJkrCv1pnCtjyQbe AS4qCZLbkopfl553RgPr m4doUAByvUQxIYhlFVO4 E66oh3S9XVCuHMZh SBJ2pFX3aC4xmNhjzdyb bGVmdDsgdmVydGljYWwt INfnS147IOVwdFelOgVt pVo1R2KfTza9LMOl mPkyJO6mrFHxHOiyTb3d rJgawDmbIX0mMCDmqoph u139HqRxt0ymBIAtgTAm FOlpCRP3O60th6F1 SNEzPDBgPGA1bPR3aE2v bGlnbjogbGVmdDsgdmVy rFnlMThyGObiJ679ZBLw cDsnPlBhdGllbnQg GWvhZWv0O1BhThgzfYE+ BZ25VLLtUY29fMYytNKv p9rznNy3EqAtEGNzFIU8 xLpxIDhfi7HkYKJy B78nhVQux8B7TKDqcDiy wIWmIwYskPW5rO8gLGpb dimup3duyapsPsfcw9zc zg27uE89M08uXMmo ZHRoPSIzMCUiIHZhbGln yt7unC2uRq5+PGNvbCB3 uXZ7sN0wVYMnKbR8YWdk S684GzFqaERkJpoq f4doq4dsrLn7WaK2JRBm jwKgvJmjZUU1i9JtOj53 V90rBVusFYZsENTeKMLc RAThoNpter4fyO3o Ii8+TSGenQT2nRC9bR1z OzOfRpZ4ATlyG587CuWn oELiSzcxU40uS8MhsMR+ GMBsBrt8GBJniHko HV5ooJRwXXfwXs1kDSX2 BzAtDgCbNOwzV3BiOVWc nfldwnfbdVA2TWHzANKg cA11Wc7ijTxeJESp hYRSwG7ifgabq2gczsom UoTdQZJhSSi8HXp9ZEIh xMfuYuUtHVG2JxG7ZVO3 mBIvxQ9ulBxittsj vR4eL2FmQHSatjesCm92 bQ8eMbIiFlM9AQnzFir+ O3DCDT5MJPMOB957L4Gi Gce2IPRieMiyCH2x oAPwQGqkLs5kzZmsjRzt XS0sXIAoxhblSQOjhS8a MFAutTJfqUqsBK8eTPUq jeymc031IrKvEMR2 BMUxbDLfF6RczD5hBjGq GVDvRWNkU6LiuTVkWOec B074MSfvQbY9HTIdpqMd E3QuEFEnoHxhUiN1 b3T7Ti7uAE2sOS5uUTUk HK32ZV97uFQwb3P8mEJ1 X3FpBNBmnldtcmcavQW7 IQGwCDIqxZ70wPVm IRcmGq2ry0B9c447HVOs BSUcaA47Es5rwTxwHFHg sPQZpA6fllaeo5ugxubi FoTvHIOzWOh3ZCm0 GGGesLvuAuZbYHU9NzV9 IYF4kAFnfX8xdDuzhpmf bG0kZdc+ODEgWWVhcnM8 D7QcQdd0UFBvgTvo MO9ukVCgSAloKc0izUae dFsoDF7yGUFeuyouXCYq iL6eCCKefOVybAfeTY8k CEDocbyua151YdRz UAC7DCQldYJlN7XoiF3p NwOvHLYxHESfG5BpoHRa XQaaB722QOhaFvK7FFAt ceJtB7DpGCBabZnu RbH7b3L1Wc2RNSgyMW73 NI89xNUfx6P4gHZ0Z8Gf LMLbyjnulceceTH6KBRv RHMybJ99tZIfOPxj Ji9ym3J8y693WBWtWRGv tN19Kg3psScpELYkvEPG vW1zyijej8zahwmkWgIm HJXiRKr5OIy7XNXy iVakWnJyNXJ3ZvR2JQL6 eUTpbR5pkGbhbecofB3r Oyc+LPOuZIGcd2Mou6Oa AH56WK15Q4AaUlon dGFibGU+PHRhYmxlIHdp ZHRoPScxMDAlJyBzdHls YB6uDg8kQSDgLVNfmWog bXAuCuBlp1clREOg CUoeBN2obSfjX0AsqYA9 ZUQer5o1Bl46V06cF7Km dXA+KQTqfOJ0qLB9fR5o AvYiKjU5PIilW816 CxMlrHBqXrejm3raz6ce dBd9EyTbKIQefvEyyOkv UIJ4j7HaFo43D73lHRly ZHRoPSIyMCUiIHZh jJojnq3zaW5dAz3+PGNv cRQ1nIJ5mB3zQhChDvE6 SSjkO675BkGayMHkFmws O05iW3YhpZZ+PHRy Chb7MKQghCbbFF0qbPCw OVuiOz4oRQL2HyXyTcGc WEfqK3WuETSilkbsqomt nDY8ODQqVYQdvD09 Uj9vzUcjHh3aKPLeDNN6 DHToeETjT0GyfS4rAqEx UFXxATXqO2YfuYJqCVlu Z170OFsxJgS6ZQAt ofXyJ1ExDOBtmEbaVmC8 r8C4Az8RbSloxCSjGN2x KrZqZHc4H4CiLdq6XBXm lHrxFE7ofHCrJWlq Bp5awAcrsKhtBN9nDIYz puexs805CdTtc7tvVSLk bGHxXYjuHYJ5T95on0I3 JMAyEBIcFVD3fZB6 vM7tkZfpfdvmsTUtmZgx heWiuGktOAwpZYxgL880 ZVLybAxcGgECElo5S2Ce Tpy1MPUybKhrZC6u zBJtLOjsIo8yxCznaPjk LH1xXSHwultsu872ItBq v1qzIIMcbZKyCFeeYTW2 O98pl0D2UMMoWYFd KHK1aFS6lS9luKxqmqmm bGVmdDsgdmVydGljYWwt YWqoR714PXUlcLweIt3X Tpp6W8DbQpu0TDRu vJpdSJ1wgMWnAIvuIg7o hXsaiNxyNY3pVPNrecle u894TnYif3uuTBGvjGHk RUgwEXH5K29qc5O5 ZLIgMCQwOSL3rWH0nG0c bGlnbjogbGVmdDsgdmVy bJdkAXfbONazK528ZAFq cDsnPlBheWVyOjwv dGQ+IJ06kc78C3UwMbvx Dgz2XNFcZFG0jIW8oY5n PPWhASfrr1Y5aPA5H8Xw ajDosl1gt4wcLAVg FJeiW79gyIWyq (more content not included)... Normal [facility] C Urineon 02-13-2024 Bacteria identified Cx Nom (U) Microbiology PROCEDURE: Urine Culture [R1] SOURCE: U Random BODY SITE: COLLECTED DATE/TIME: 02/11/2024 10:06 EDT RECEIVED DATE/TIME: 02/11/2024 18:24 EDT START DATE/TIME: 02/11/2024 18:24 EDT FREE TEXT SOURCE: RENA Lino APRN-C, Zoie FOX, SECURITY ENGINEER-C, Lazara X Lazara X FINAL REPORTS Final [...] Locations R1: This test was performed at: [facility], [address] [place] [address], [facility]- , , [facility] Comment on above: Performed By: #### [id number] #### [facility] [address] [place] [address] Screenson 02-12-2024 Screens [id number] 7#[id number] [facility] Ambulatory Visit Summaryon 0 02-11-2024 Ambulatory Visit Summary KYLER RICHARD :1940 Visit Date:02/11/2024 Ambulatory Visit Instructions Your Diagnosis BPH with urinary obstruction Urethral stricture in male UTI (urinary tract infection) Gross hematuria History of colon cancer Your Care Team Attending Physician - KIM Lino APRN, Lazara Echavarria Primary Care Physician - [place] [...] [facility] [address] , [place] [address] [phone] Medications What How Much When Instructions Unchanged [...] us for your care. Normal [facility] Patient Educationon 02-11-20 Patient Education Urology [...] these instructions at home: Medicines ? Take mdoj-qmz-klejdlq and prescription medicines only as told by [...] the blood stops without treatment. ? Take idgl-rdz-dvttkwj and prescription medicines only as told by your health care provider. ? Drink enough fluid to keep your urine pale yellow. This information is not intended to replace advice given to you by your health care provider. Make sure you discuss any questions you have with your health care provider. Document Revised: 04/12/2021 Document Reviewed: 04/12/2021 [employer] Patient Education ? 2022 [employer]. Benign Prostatic Hyperplasia Benign prostatic hyperplasia (BPH) [...] (more content not included)... Normal [facility] Urology Office/Clinic Noteon 02-11-2024 Urology Office/Clinic [...] with voice recognition artificial intelligence software, specifically [employer], [employer] and or [employer]iga[employer]. Substitutions may have occurred due to the [...] Urnls Dip Stick Auto w/o Microscopy POC 70632 2. Urethral stricture in male (N35.919: Unspecified [...] Maciel, URL [facility] [address], [place] [address] [phone] Additional Instructions: Patient Education Hematuria, Adult Benign [...] (more content not included)... Normal [facility] Comment on above: Result Comment: Elec tronically Signed By: KIM Lino APRN, [place] X\.jeffy\Date and Time Signed: 02/11/24 10:41 EDT COVID/FLU RT-PCRon SARS-CoV-2 (COVID-19) RNA TERRIE+probe Ql (Unsp spec) Positive enStage Other COVID/FLU RT-PCR Negative [employer] Other XR KNEE RT 3Von 01-23-2023 XR KNEE RT 3V EXAM: XR KNEE RT 3V HISTORY: Osteoarthritis of knee COMPARISON: None TECHNIQUE: 3 views FINDINGS: No acute fracture or dislocation. Moderate to severe degenerative changes. Unremarkable soft tissues. IMPRESSION: Moderate to severe degenerative changes. Electronically authenticated by: CALVIN BARNES Date: 2023-01-23 13:29 Normal [facility] INSULINon 09-25-2022 Insulin 6.0 uIU/mL Normal 2.6-24.9 [facility] Comment on above: Performed By: #### I NSULIN #### [facility] [address] [place] [address] Dr. Wally Zapien BNPon 09-24-2022 Natriuretic peptide B (Bld) [Mass/Vol] 110.0 pg/mL Normal <=1,800.0 [facility] Comment on above: Performed By: #### U RCX #### [facility] [address] [place] [address] Dr. Wally Zapien CBC AUTO DIFFon 09-24-2022 BASO # 0.0 103/ul Normal 0.0-0.1 [facility] Comment on above: Performed By: #### C BC #### [facility] [address] [place] [address] Dr. Wally Zapien Basophils/100 WBC (Bld) 1.0 % Normal 0.2-2.0 [facility] Comment on above: Performed By: #### C BC #### [facility] [address] [place] [address] Dr. Wally Zapien EO # 0.2 103/ul Normal 0.0-0.7 [facility] Comment on above: Performed By: #### C BC #### [facility] [address] [place] [address] Dr. Wally Zapien Eosinophils/100 WBC (Bld) 4.2 % Normal 0.9-7.0 [facility] Comment on above: Performed By: #### C BC #### [facility] [address] [place] [address] Dr. Wally Zapien Erythrocyte distribution width (RBC) [Ratio] 12.5 % Normal 11.0-15.0 [facility] Comment on above: Performed By: #### C BC #### [facility] [address] [place] [address] Dr. Wally Zapien Hematocrit (Bld) [Volume fraction] 43.7 % Normal 42.0-54.0 [facility] Comment on above: Performed By: #### C BC #### [facility] [address] [place] [address] Dr. Wally Zapien Hemoglobin (Bld) [Mass/Vol] 15.4 g/dL Normal 14.0-18.0 [facility] Comment on above: Performed By: #### C BC #### [facility] [address] [place] [address] Dr. Wally Zapien IG # 0.02 10e3/ul Normal 0.00-0.03 [facility] Comment on above: Performed By: #### C BC #### [facility] [address] [place] [address] Dr. Wally Zapien IG % 0.5 % Normal 0.0-0.5 [facility] Comment on above: Performed By: #### C BC #### [facility] [address] [place] [address] Dr. Wally Zapien LYMPH # 1.7 103/ul Normal 1.2-3.8 [facility] Comment on above: Performed By: #### C BC #### [facility] [address] [place] [address] Dr. Wally Zapien Lymphocytes/100 WBC (Bld) 42.6 % Normal 20.5-60.0 [facility] Comment on above: Performed By: #### C BC #### [facility] [address] [place] [address] Dr. Wally Zapien MANUAL DIFF REQ NO Normal [facility] Comment on above: Performed By: #### C BC #### [facility] [address] [place] [address] Dr. Wally Zapien MCH (RBC) [Entitic mass] 31.6 pg Normal 25.9-34.0 [facility] Comment on above: Performed By: #### C BC #### [facility] [address] [place] [address] Dr. Wally Zapien MCHC (RBC) [Mass/Vol] 35.2 g/dL Normal 29.9-35.2 [facility] Comment on above: Performed By: #### C BC #### [facility] [address] [place] [address] Dr. Wally Zapien MCV (RBC) [Entitic vol] 89.5 fL Normal 80.0-94.0 [facility] Comment on above: Performed By: #### C BC #### [facility] [address] [place] [address] Dr. Wally Zapien MONO # 0.4 103/ul Normal 0.3-0.8 [facility] Comment on above: Performed By: #### C BC #### [facility] [address] [place] [address] Dr. Wally Zapien Monocytes/100 WBC (Bld) 9.2 % Normal 1.7-12.0 [facility] Comment on above: Performed By: #### C BC #### [facility] [address] [place] [address] Dr. Wally Zapien NEUT # 1.7 103/ul Normal 1.4-6.5 [facility] Comment on above: Performed By: #### C BC #### [facility] [address] [place] [address] Dr. Wally Zapien Neutrophils/100 WBC (Bld) 42.5 % Critically low 43.0-75.0 [facility] Comment on above: Performed By: #### C BC #### [facility] [address] [place] [address] Dr. Wally Zapien Platelet mean volume (Bld) [Entitic vol] 9.9 fL Normal 9.5-13.5 [facility] Comment on above: Performed By: #### C BC #### [facility] [address] [place] [address] Dr. Wally Zapien PLT 149 103/ul Critically low 150-450 [facility] Comment on above: Performed By: #### C BC #### [facility] [address] [place] [address] Dr. Wally Zapien RBC 4.88 106/ul Normal 4.70-6.10 [facility] Comment on above: Performed By: #### C BC #### [facility] [address] [place] [address] Dr. Wally Zapien WBC 4.0 103/ul Normal 4.0-11.0 [facility] Comment on above: Performed By: #### C BC #### [facility] [address] [place] [address] Dr. Wally Zapien CULTURE URINEon 09-24-2022 CULTURE URINE Culture Observations: LIGHT GROWTH OF MIXED SKIN GENNA. NO POTENTIAL PATHOGENS SEEN. Normal [facility] Comment on above: Performed By: #### U RCX #### [facility] [address] [place] [address] Dr. Wally Zapien FREE THYROXINE INDEX T7on FTI 2.52 Normal 1.30-4.50 [facility] Comment on above: Performed By: #### U RCX #### [facility] [address] [place] [address] Dr. Wally Zapien T3U 36.0 % Normal 33.0-40.0 [facility] Comment on above: Performed By: #### U RCX #### [facility] [address] [place] [address] Dr. Wally Zapien T4 [Mass/Vol] 7.00 ug/dL Normal 4.50-12.10 [facility] Comment on above: Performed By: #### U RCX #### [facility] [address] [address] [address] Wally Zapien GLYCOHEMOGLOBIN A1Con 2022 ADA RECOMMENDATION SEE BELOW Normal [facility] Comment on above: Result Comment: ADA RECOMMENDED LIMIT 4.0 - 6.0 ADA THERAPEUTIC TARGET < 7.0 ACTION SUGGESTED > 7.0 Performed By: #### A 1C #### [facility] [address] [address] [address] Wally Zapien Glucose [Mass/Vol] 123 mg/dL Normal [facility] Comment on above: Performed By: #### A 1C #### [facility] [address] [place] [address] Dr. Wally Zapien HbA1c (Bld) [Mass fraction] 5.9 % Normal 4.5-6.2 [facility] Comment on above: Performed By: #### A 1C #### [facility] [address] [place] [address] Dr. Wally Zapien LIPID PROFILEon 09-24-2022 CHOL-HDL RATIO NORM SEE BELOW Normal [facility] Comment on above: Result Comment: 3.3 - 4.4 LOW RISK 4.4 - 7.1 AVERAGE RISK 7.1 - 11.0 MODERATE RISK >11.0 HIGH RISK Performed By: #### U RCX #### [facility] [address] [address] [address] Wally Zapien Cholesterol [Mass/Vol] 117 mg/dL Normal <=200 [facility] Comment on above: Performed By: #### U RCX #### [facility] [address] [address] [address] Wally Zapien Cholesterol in HDL [Mass/Vol] 38 mg/dL Critically low 40-60 [facility] Comment on above: Performed By: #### U RCX #### [facility] [address] [address] [address] Wally Zapien Cholesterol in LDL [Mass/Vol] 32.6 mg/dL Normal [facility] Comment on above: Performed By: #### U RCX #### [facility] [address] [address] [address] Wally Zapien Cholesterol.total/Ch olesterol in HDL [Mass ratio] 3.1 {ratio} Normal [facility] Comment on above: Performed By: #### U RCX #### [facility] [address] [address] [address] Wally Zapien HDL NORMAL > or = 60 mg/dl - LOW CARDIOVASCULAR RISK <40 mg/dl - HIGH CARDIOVASCULAR RISK Normal [facility] Comment on above: Performed By: #### U RCX #### [facility] [address] [place] [address] Dr. Wally Zapien LDL CALC NORMAL SEE BELOW Normal [facility] Comment on above: Result Comment: <100 mg/dl OPTIMAL 100 - 129 mg/dl NEAR OR ABOVE OPTIMAL 130 - 159 mg/dl BORDERLINE HIGH 160 - 189 mg/dl HIGH >190 mg/dl VERY HIGH Performed By: #### U RCX #### [facility] [address] [place] [address] Dr. Wally Zapien Triglyceride [Mass/Vol] 232 mg/dL Critically high <=150 [facility] Comment on above: Performed By: #### U RCX #### [facility] [address] [place] [address] Dr. Wally Zapien VLDL CALC 46.4 mg/dL Normal [facility] Comment on above: Performed By: #### U RCX #### [facility] [address] [place] [address] Dr. Wally Zapien PROF 14(COMP METB)on 023 Albumin [Mass/Vol] 3.8 g/dL Normal 3.4-5.0 [facility] Comment on above: Performed By: #### B ROOFING SUBCONTRACTOR, T7, LIPID, TSH, CMP, URIC #### [facility] [address] [place] [address] Dr. Walyl Zapien Albumin/Globulin [Mass ratio] 1.2 {ratio} Normal [facility] Comment on above: Performed By: #### B ROOFING SUBCONTRACTOR, T7, LIPID, TSH, CMP, URIC #### [facility] [address] [place] [address] Dr. Wally Zapien ALP [Catalytic activity/Vol] 80 U/L Normal 46-116 [facility] Comment on above: Performed By: #### B ROOFING SUBCONTRACTOR, T7, LIPID, TSH, CMP, URIC #### [facility] [address] [place] [address] Dr. Wally Zapien ALT [Catalytic activity/Vol] 34 U/L Normal 16-63 [facility] Comment on above: Performed By: #### B ROOFING SUBCONTRACTOR, T7, LIPID, TSH, CMP, URIC #### [facility] [address] [place] [address] Dr. Wally Zapein Anion gap [Moles/Vol] 11.3 mmol/L Normal [facility] Comment on above: Performed By: #### B ROOFING SUBCONTRACTOR, T7, LIPID, TSH, CMP, URIC #### [facility] [address] [place] [address] Dr. Wally Zapien AST [Catalytic activity/Vol] 24 U/L Normal 15-37 [facility] Comment on above: Performed By: #### B ROOFING SUBCONTRACTOR, T7, LIPID, TSH, CMP, URIC #### [facility] [address] [place] [address] Dr. Wally Zapien Bilirubin [Mass/Vol] 1.0 mg/dL Normal 0.2-1.0 [facility] Comment on above: Performed By: #### B ROOFING SUBCONTRACTOR, T7, LIPID, TSH, CMP, URIC #### [facility] [address] [place] [address] Dr. Wally Zapien Calcium [Mass/Vol] 8.5 mg/dL Normal 8.5-10.1 [facility] Comment on above: Performed By: #### B ROOFING SUBCONTRACTOR, T7, LIPID, TSH, CMP, URIC #### [facility] [address] [place] [address] Dr. Wally Zapien Chloride [Moles/Vol] 105 mmol/L Normal 98-107 [facility] Comment on above: Performed By: #### B ROOFING SUBCONTRACTOR, T7, LIPID, TSH, CMP, URIC #### [facility] [address] [place] [address] Dr. Wally Zapien CO2 [Moles/Vol] 28.6 mmol/L Normal 21.0-32.0 [facility] Comment on above: Performed By: #### B ROOFING SUBCONTRACTOR, T7, LIPID, TSH, CMP, URIC #### [facility] [address] [place] [address] Dr. Wally Zapien Creatinine [Mass/Vol] 0.74 mg/dL Normal 0.70-1.30 [facility] Comment on above: Performed By: #### B ROOFING SUBCONTRACTOR, T7, LIPID, TSH, CMP, URIC #### [facility] [address] [place] [address] Dr. Wally Zapien EGFR-AF SERBIAN >60 Normal >=60 [facility] Comment on above: Performed By: #### B ROOFING SUBCONTRACTOR, T7, LIPID, TSH, CMP, URIC #### [facility] [address] [place] [address] Dr. Wally Zapien EGFR-NON AF SERBIAN >60 Normal >=60 [facility] Comment on above: Performed By: #### B ROOFING SUBCONTRACTOR, T7, LIPID, TSH, CMP, URIC #### [facility] [address] [place] [address] Dr. Wally Zapien Globulin (S) [Mass/Vol] 3.2 g/dL Normal [facility] Comment on above: Performed By: #### B ROOFING SUBCONTRACTOR, T7, LIPID, TSH, CMP, URIC #### [facility] [address] [place] [address] Dr. Wally Zapien Glucose [Mass/Vol] 102 mg/dL Normal 74-106 [facility] Comment on above: Performed By: #### B ROOFING SUBCONTRACTOR, T7, LIPID, TSH, CMP, URIC #### [facility] [address] [place] [address] Dr. Wally Zapien Potassium [Moles/Vol] 3.9 mmol/L Normal 3.5-5.1 [facility] Comment on above: Performed By: #### B ROOFING SUBCONTRACTOR, T7, LIPID, TSH, CMP, URIC #### [facility] [address] [place] [address] Dr. Wally Zapien Protein [Mass/Vol] 7.0 g/dL Normal 6.4-8.2 [facility] Comment on above: Performed By: #### B ROOFING SUBCONTRACTOR, T7, LIPID, TSH, CMP, URIC #### [facility] [address] [place] [address] Dr. Wally Zapien Sodium [Moles/Vol] 141 mmol/L Normal 136-145 [facility] Comment on above: Performed By: #### B ROOFING SUBCONTRACTOR, T7, LIPID, TSH, CMP, URIC #### [facility] [address] [place] [address] Dr. Wally Zapien Urea nitrogen [Mass/Vol] 19.0 mg/dL Critically high 7.0-18.0 [facility] Comment on above: Performed By: #### B ROOFING SUBCONTRACTOR, T7, LIPID, TSH, CMP, URIC #### [facility] [address] [place] [address] Dr. Wally Zapien Urea nitrogen/Creatinine [Mass ratio] 25.7 mg/mg Normal [facility] Comment on above: Performed By: #### B ROOFING SUBCONTRACTOR, T7, LIPID, TSH, CMP, URIC #### [facility] [address] [place] [address] Dr. Wally Zapien TSHon 09-24-2022 TSH 1.535 uIU/mL Normal 0.358-3.740 [facility] Comment on above: Performed By: #### U RCX #### [facility] [address] [place] [address] Dr. Wally Zapien UA RANDOM W/MICROSCOPICon BACTERIA NONE SEEN Normal NONE SEEN [facility] Comment on above: Performed By: #### U RCX #### [facility] [address] [place] [address] Dr. Wally Zapien Bilirubin Ql (U) Negative Normal NEGATIVE [facility] Comment on above: Performed By: #### U RCX #### [facility] [address] [place] [address] Dr. Wally Zapien CAST NONE SEEN Normal NONE SEEN [facility] Comment on above: Performed By: #### U RCX #### [facility] [address] [address] [address] Wally Zapien Clarity (U) CLEAR Normal CLEAR [facility] Comment on above: Performed By: #### U RCX #### [facility] [address] [address] [address] Wally Zapien Color (U) YELLOW Normal YELLOW [facility] Comment on above: Performed By: #### U RCX #### [facility] [address] [address] [address] Wally Zapien Crystals LM Nom (Urine sed) NONE SEEN Normal NONE SEEN [facility] Comment on above: Performed By: #### U RCX #### [facility] [address] [place] [address] Dr. Wally Zapien Epithelial cells LM Ql (Urine sed) FEW Abnormal NONE SEEN /RARE [facility] Comment on above: Performed By: #### U RCX #### [facility] [address] [address] [address] Wally Zapien Glucose Ql (U) Negative Normal NEGATIVE [facility] Comment on above: Performed By: #### U RCX #### [facility] [address] [place] [address] Dr. Wally Zapien Hemoglobin Ql (U) TRACE-INTACT Abnormal NEGATIVE [facility] Comment on above: Performed By: #### U RCX #### [facility] [address] [address] [address] Wally Zapien Ketones Ql (U) Negative Normal NEGATIVE [facility] Comment on above: Performed By: #### U RCX #### [facility] [address] [address] [address] Wally Zapien LEUKOCYTES Negative Normal NEGATIVE [facility] Comment on above: Performed By: #### U RCX #### [facility] [address] [place] [address] Dr. Wally Zapien MUCOUS LARGE Abnormal NONE SEEN [facility] Comment on above: Performed By: #### U RCX #### [facility] [address] [address] [address] Wally Zapien Nitrite Ql (U) Negative Normal NEGATIVE [facility] Comment on above: Performed By: #### U RCX #### [facility] [address] [address] [address] Wally Zapien pH (U) 6.5 [pH] Normal 5-9 [facility] Comment on above: Performed By: #### U RCX #### [facility] [address] [address] [address] Wally Zapien RBC 2-5 Abnormal 0-2 [facility] Comment on above: Performed By: #### U RCX #### [facility] [address] [address] [address] Wally Zapien SPEC GRAVITY 1.025 Normal 1.005-<=1.025 [facility] Comment on above: Performed By: #### U RCX #### [facility] [address] [place] [address] Dr. Wally Zapien UA PROTEIN TRACE Normal NEGATIVE/ TRACE [facility] Comment on above: Performed By: #### U RCX #### [facility] [address] [address] [address] Wally Zapien Urobilinogen Qn (U) 1.0 {Suma'U}/dL Normal 0.2 - 1. 0 [facility] Comment on above: Performed By: #### U RCX #### [facility] [address] [address] [address] Wally Zapien WBC 0-2 Abnormal NONE SEEN [facility] Comment on above: Performed By: #### U RCX #### [facility] [address] [address] [address] Wally Zapien URIC ACID SERUMon 09-24-2022 Urate [Mass/Vol] 3.7 mg/dL Normal 3.5-7.2 [facility] Comment on above: Performed By: #### B ROOFING SUBCONTRACTOR, T7, LIPID, TSH, CMP, URIC #### [facility] [address] [address] [address] Wally Zapien VITAMIN D 25 OHon 09-24-2022 VIT D 25-OH 42.6 ng/mL Normal [facility] Comment on above: Performed By: #### U RCX #### [facility] [address] [place] [address] Dr. Wally Zapien VIT D RANGES SEE BELOW Normal [facility] Comment on above: Result Comment: <20 ng/mL Vit D deficient 20 - <30 ng/mL Vit D insufficient 30 - 100 ng/mL Vit D sufficient >100 ng/mL Potential Toxicity Performed By: #### U RCX #### [facility] [address] [place] [address] Dr. Wally Zapien CBC AUTO DIFFon 09-18-2022 BASO # 0.0 103/ul Normal 0.0-0.1 [facility] Comment on above: Performed By: #### C BC #### [facility] [address] [place] [address] Dr. Wally Zapien Basophils/100 WBC (Bld) 0.7 % Normal 0.2-2.0 [facility] Comment on above: Performed By: #### C BC #### [facility] [address] [place] [address] Dr. Wally Zapien EO # 0.1 103/ul Normal 0.0-0.7 [facility] Comment on above: Performed By: #### C BC #### [facility] [address] [place] [address] Dr. Wally Zapien Eosinophils/100 WBC (Bld) 2.8 % Normal 0.9-7.0 [facility] Comment on above: Performed By: #### C BC #### [facility] [address] [place] [address] Dr. Wally Zapien Erythrocyte distribution width (RBC) [Ratio] 12.7 % Normal 11.0-15.0 [facility] Comment on above: Performed By: #### C BC #### [facility] [address] [place] [address] Dr. Wally Zapien Hematocrit (Bld) [Volume fraction] 44.1 % Normal 42.0-54.0 [facility] Comment on above: Performed By: #### C BC #### [facility] [address] [place] [address] Dr. Wally Zapien Hemoglobin (Bld) [Mass/Vol] 15.3 g/dL Normal 14.0-18.0 [facility] Comment on above: Performed By: #### C BC #### [facility] [address] [place] [address] Dr. Wally Zapien IG # 0.01 10e3/ul Normal 0.00-0.03 [facility] Comment on above: Performed By: #### C BC #### [facility] [address] [place] [address] Dr. Wally Zapien IG % 0.2 % Normal 0.0-0.5 [facility] Comment on above: Performed By: #### C BC #### [facility] [address] [place] [address] Dr. Wally Zapien LYMPH # 1.8 103/ul Normal 1.2-3.8 [facility] Comment on above: Performed By: #### C BC #### [facility] [address] [place] [address] Dr. Wally Zapien Lymphocytes/100 WBC (Bld) 43.0 % Normal 20.5-60.0 [facility] Comment on above: Performed By: #### C BC #### [facility] [address] [place] [address] Dr. Wally Zapien MANUAL DIFF REQ NO Normal [facility] Comment on above: Performed By: #### C BC #### [facility] [address] [place] [address] Dr. Wally Zapien MCH (RBC) [Entitic mass] 32.1 pg Normal 25.9-34.0 [facility] Comment on above: Performed By: #### C BC #### [facility] [address] [place] [address] Dr. aWlly Zapien MCHC (RBC) [Mass/Vol] 34.7 g/dL Normal 29.9-35.2 [facility] Comment on above: Performed By: #### C BC #### [facility] [address] [place] [address] Dr. Wally Zapien MCV (RBC) [Entitic vol] 92.5 fL Normal 80.0-94.0 [facility] Comment on above: Performed By: #### C BC #### [facility] [address] [place] [address] Dr. Wally Zapien MONO # 0.4 103/ul Normal 0.3-0.8 [facility] Comment on above: Performed By: #### C BC #### [facility] [address] [place] [address] Dr. Wally Zapien Monocytes/100 WBC (Bld) 9.2 % Normal 1.7-12.0 [facility] Comment on above: Performed By: #### C BC #### [facility] [address] [place] [address] Dr. Wally Zapien NEUT # 1.9 103/ul Normal 1.4-6.5 [facility] Comment on above: Performed By: #### C BC #### [facility] [address] [place] [address] Dr. Wally Zapien Neutrophils/100 WBC (Bld) 44.1 % Normal 43.0-75.0 [facility] Comment on above: Performed By: #### C BC #### [facility] [address] [place] [address] Dr. Wally Zapien Platelet mean volume (Bld) [Entitic vol] 10.4 fL Normal 9.5-13.5 [facility] Comment on above: Performed By: #### C BC #### [facility] [address] [place] [address] Dr. Wally Zapien PLT 152 103/ul Normal 150-450 [facility] Comment on above: Performed By: #### C BC #### [facility] [address] [place] [address] Dr. Wally Zapien RBC 4.77 106/ul Normal 4.70-6.10 [facility] Comment on above: Performed By: #### C BC #### [facility] [address] [place] [address] Dr. Wally Zapien WBC 4.2 103/ul Normal 4.0-11.0 [facility] Comment on above: Performed By: #### C NORIS #### [facility] [address] ABD/PELVIS WO CONon [...] JOELLE LOPEZ Date: 2022-09-18 13:40 Normal [facility] ER URINE PROFILEon 3 Bilirubin Ql (U) SMALL Abnormal NEGATIVE The [facility] Comment on above: Performed By: #### E KERRI WILLIS #### [facility] [address] [place] [address] Dr. Wally Zapien Clarity (U) SL CLOUDY Abnormal CLEAR [facility] Comment on above: Performed By: #### BIMAL PADRONRO #### [facility] [address] [place] [address] Dr. Wally Zapien Color (U) RED Abnormal YELLOW [facility] Comment on above: Performed By: #### BIMAL PADRONRO #### [facility] [address] [place] [address] Dr. Wally GERBER A micrscopic examination will be performed if indicated. Normal [facility] Comment on above: Performed By: #### BIMAL PADRONRO #### [facility] [address] [place] [address] Dr. Wally Zapien Glucose Ql (U) Negative Normal NEGATIVE The [facility] Comment on above: Performed By: #### BIMAL PADRONRO #### [facility] [address] [place] [address] Dr. Wally Zapien Hemoglobin Ql (U) LARGE Abnormal NEGATIVE The [facility] Comment on above: Performed By: #### BIMAL PADRONRO #### [facility] [address] [place] [address] Dr. Wally Zapien Ketones Ql (U) TRACE Abnormal NEGATIVE The [facility] Comment on above: Performed By: #### KERRI PADRON #### [facility] [address] [place] [address] Dr. Wally Zapien LEUKOCYTES TRACE Abnormal NEGATIVE [facility] Comment on above: Performed By: #### BIMAL PADRONRO #### [facility] [address] [place] [address] Dr. Wally Zapien Nitrite Ql (U) Positive Abnormal NEGATIVE The [facility] Comment on above: Performed By: #### MANSOOR PADRONICRO #### [facility] [address] [place] [address] Dr. Wally Zapien pH (U) 5.5 [pH] Normal 5-9 [facility] Comment on above: Performed By: #### E RUR, UMICRO #### [facility] [address] [place] [address] Dr. Wally Zapien Protein (U) [Mass/Vol] 100 mg/dL Abnormal NEGATIVE/ TRACE [facility] Comment on above: Performed By: #### E RUR, UMICRO #### [facility] [address] [place] [address] Dr. Wally Zapien SPEC GRAVITY 1.025 Normal 1.005-<=1.025 [facility] Comment on above: Performed By: #### E RUR, UMICRO #### [facility] [address] [place] [address] Dr. Wally Zapien UR MICRO IND INDICATED Normal [facility] Comment on above: Performed By: #### E RUR UMICRO #### [facility] [address] [place] [address] Dr. Wally Zapien Urobilinogen Qn (U) 1.0 {Suma'U}/dL Normal 0.2 - 1. 0 [facility] Comment on above: Performed By: #### E LAZARO UMICRO #### [facility] [address] [place] [address] Dr. Wally Zapien PROF CHEM 8 (BAS METB)on Anion gap [Moles/Vol] 10.5 mmol/L Normal [facility] Comment on above: Performed By: #### U RCX #### [facility] [address] [place] [address] Dr. Wally Zapien Calcium [Mass/Vol] 8.6 mg/dL Normal 8.5-10.1 [facility] Comment on above: Performed By: #### U RCX #### [facility] [address] [place] [address] Dr. Wally Zapien Chloride [Moles/Vol] 105 mmol/L Normal 98-107 [facility] Comment on above: Performed By: #### U RCX #### [facility] [address] [place] [address] Dr. Wally Zapien CO2 [Moles/Vol] 28.8 mmol/L Normal 21.0-32.0 [facility] Comment on above: Performed By: #### U RCX #### [facility] [address] [address] [address] Wally Zapien Creatinine [Mass/Vol] 0.85 mg/dL Normal 0.70-1.30 [facility] Comment on above: Performed By: #### U RCX #### [facility] [address] [address] [address] Wally Zapien EGFR-AF SERBIAN >60 Normal >=60 [facility] Comment on above: Performed By: #### U RCX #### [facility] [address] [address] [address] Wally Zapien EGFR-NON AF SERBIAN >60 Normal >=60 [facility] Comment on above: Performed By: #### U RCX #### [facility] [address] [address] [address] Wally Zapien Glucose [Mass/Vol] 112 mg/dL Critically high 74-106 [facility] Comment on above: Performed By: #### U RCX #### [facility] [address] [address] [address] Wally Zapien Potassium [Moles/Vol] 4.3 mmol/L Normal 3.5-5.1 [facility] Comment on above: Performed By: #### U RCX #### [facility] [address] [address] [address] Wally Zapien Sodium [Moles/Vol] 140 mmol/L Normal 136-145 [facility] Comment on above: Performed By: #### U RCX #### [facility] [address] [address] [address] Wally Zapien Urea nitrogen [Mass/Vol] 23.0 mg/dL Critically high 7.0-18.0 [facility] Comment on above: Performed By: #### U RCX #### [facility] [address] [address] [address] Wally Zapien Urea nitrogen/Creatinine [Mass ratio] 27.1 mg/mg Normal [facility] Comment on above: Performed By: #### U RCX #### [facility] [address] [place] [address] Dr. Wally Zapien URINE MICROSCOPIC ONLYon BACTERIA TRACE Abnormal NONE SEEN [facility] Comment on above: Performed By: #### E RUR, UMICRO #### [facility] [address] [place] [address] Dr. Wally Zapien Bacteria identified Cx Nom (U) NOT INDICATED Normal [facility] Comment on above: Performed By: #### E RUR, UMICRO #### [facility] [address] [place] [address] Dr. Wally Zapien CAST NONE SEEN Normal NONE SEEN [facility] Comment on above: Performed By: #### E RUR, UMICRO #### [facility] [address] [place] [address] Dr. Wally Zapien Crystals LM Nom (Urine sed) NONE SEEN Normal NONE SEEN [facility] Comment on above: Performed By: #### E RUR, UMICRO #### [facility] [address] [place] [address] Dr. Wally Zapien Epithelial cells LM Ql (Urine sed) RARE Normal NONE SEEN /RARE [facility] Comment on above: Performed By: #### E RUR, UMICRO #### [facility] [address] [place] [address] Dr. Wally Zapien MUCOUS NONE SEEN Normal NONE SEEN [facility] Comment on above: Performed By: #### E RUR, UMICRO #### [facility] [address] [place] [address] Dr. Wally Zapien RBC (U) [#/Vol] /uL Abnormal 0-2 [facility] Comment on above: Performed By: #### E RUR, UMICRO #### [facility] [address] [place] [address] Dr. Wally Zapien WBC 2-5 Abnormal NONE SEEN [facility] Comment on above: Performed By: #### E RUR, UMICRO #### [facility] [address] [address] [address] Wally Zapien Vital Signs Date Time Vital Sign Value Performing Clinician Facility 06-22-2024 16:00-0400 Body temperature 98.42 [degF] Lazara Orzech [facility] 06-22-2024 16:00-0400 Diastolic blood pressure 76 mm[Hg] Lazara Orzech [facility] 06-22-2024 16:00-0400 Heart rate 77 /min Lazara Orzech [facility] 06-22-2024 16:00-0400 Respiratory rate 16 /min Lazara Orzech [facility] 06-22-2024 16:00-0400 Systolic blood pressure 138 mm[Hg] Lazara Orzech [facility] 06-02-2024 11:50-0400 Diastolic blood pressure 84 mm[Hg] Lazaar Orzech [facility] 06-02-2024 11:50-0400 Heart rate 156 /min Lazara Orzech [facility] 06-02-2024 11:50-0400 Respiratory rate 16 /min Lazara Orzech [facility] 06-02-2024 11:50-0400 Systolic blood pressure 95 mm[Hg] Lazara Orzech [facility] 03-17-2024 14:58-0400 Blood Pressure Location Lazara Orzech [facility] 03-17-2024 14:58-0400 Diastolic blood pressure 77 mm[Hg] Lazara Orzech [facility] 03-17-2024 14:58-0400 Heart rate 80 /min Lazara Orzech [facility] 03-17-2024 14:58-0400 Respiratory rate 16 /min Lazara Orzech [facility] 03-17-2024 14:58-0400 Systolic blood pressure 132 mm[Hg] Lazara Orzech [facility] 02-11-2024 09:59-0400 Blood Pressure Location Lazara Orzech [facility] 02-11-2024 09:59-0400 Diastolic blood pressure 84 mm[Hg] Lazara Orzech [facility] 02-11-2024 09:59-0400 Heart rate 71 /min Lazara Orzech [facility] 02-11-2024 09:59-0400 Systolic blood pressure 138 mm[Hg] Lazara Orzech [facility] 07-17-2023 15:40-0500 Body height 160.02 cm Rocio Chan Other [facility] Other 07-17-2023 15:40-0500 Body mass index (BMI) [Ratio] 37.55 kg/m2 Rocio Chan Other [facility] Other 07-17-2023 15:40-0500 Body temperature 98.2 [degF] Rocio Chan Other [facility] Other 07-17-2023 15:40-0500 Body weight 96.16 kg Rocio Chan Other [facility] Other 07-17-2023 15:40-0500 Diastolic blood pressure 76 mm[Hg] Rocio Chan Other [facility] Other 07-17-2023 15:40-0500 Respiratory rate 18 /min Rocio Chan Other [facility] Other 07-17-2023 15:40-0500 SaO2% (BldA) [Mass fraction] 96 % Rocio Chan Other [facility] Other 07-17-2023 15:40-0500 Systolic blood pressure 134 mm[Hg] Rocio Chan Other [facility] Other 09-26-2022 13:26-0500 Blood Pressure Location Reno VALENTIN [facility] 09-26-2022 13:26-0500 Diastolic blood pressure 74 mm[Hg] Reno VALENTIN [facility] 09-26-2022 13:26-0500 Heart rate 52 /min Reno VALENTIN [facility] 09-26-2022 13:26-0500 Systolic blood pressure 173 mm[Hg] Reno VALENTIN [facility] 04-16-2022 13:49-0400 Diastolic blood pressure 87 mm[Hg] Reno VALENTIN [facility] 04-16-2022 13:49-0400 Mean blood pressure 110 mm[Hg] Reno VALENTIN [facility] 04-16-2022 13:49-0400 Systolic blood pressure 156 mm[Hg] [place]o VALENTIN [facility] 04-16-2022 13:37-0400 Blood Pressure Location Renonoe VALENTIN [facility] 04-16-2022 13:37-0400 Diastolic blood pressure 102 mm[Hg] [place] VALENTIN [facility] 04-16-2022 13:37-0400 Heart rate 81 /min Renonoe VALENTIN [facility] 04-16-2022 13:37-0400 Respiratory rate 16 /min Reno VALENTIN [facility] 04-16-2022 13:37-0400 Systolic blood pressure 191 mm[Hg] [place]o VALENTIN [facility] Encounters Encounter Date Encounter Type Care Provider Facility Start: 07-21-2024 ambulatory Lazara X Orzech Facilit y:MERVIN Hammond Start: 07-20-2024 ambulatory Lazara X Orzech Facilit y:MERVIN Jones Start: 06-22-2024 End: 06-22-2024 ambulatory Lazara X Orzech Facility:[facility] Jones Start: 06-22-2024 End: 06-22-2024 Patient encounter procedure Lazara X Orzech [facility] Start: 06-02-2024 End: 06-02-2024 ambulatory Lazara X Orzech Facility:[facility] Start: 06-02-2024 End: 06-02-2024 Lab Drop off Lazara X Orzech [facility] Start: 06-02-2024 End: 06-02-2024 ambulatory Lazara X Orzech Facility:[facility] [place] Start: 06-02-2024 End: 06-02-2024 Patient encounter procedure Lazara X Orzech [facility] Start: 04-21-2024 End: 04-21-2024 ambulatory [facility] Start: 04-17-2024 End: 04-21-2024 ambulatory [facility] Start: 04-17-2024 End: 04-21-[address] [facility] Start: 04-17-2024 End: 04-20-2024 Evaluation and management of inpatient [facility] Start: 04-17-2024 End: 04-21-2024 Emergency department patient visit [facility] Start: 04-17-2024 End: 04-21-[address] [facility] Start: 04-14-2024 ambulatory Lazara X Orzech Facilit y:[facility] Start: 04-07-2024 End: 04-07-2024 ambulatory Reno VALENTIN Facility:[id number] Start: 03-18-2024 End: 03-18-2024 ambulatory Emily Maria Facility:[facility] Start: 03-18-2024 End: 03-18-2024 Patient encounter procedure Emily Maria [facility] Start: 03-17-2024 End: 03-17-2024 ambulatory Lazara X Orzech Facility: [facility] Start: 03-17-2024 End: 03-17-2024 Patient encounter procedure Lazara X Orzech [facility] Start: 02-11-2024 End: 02-11-2024 Lab Drop off Lazara X Orzech [facility] Start: 02-11-2024 End: 02-11-2024 ambulatory Lazara X Orzech Facility:[facility] Start: 02-11-2024 End: 02-11-2024 Patient encounter procedure Lazara X Orzech [facility] Start: 11-18-2023 End: 11-19-2023 ambulatory Fabrice Dias MD Facility: [facility] Start: 10-28-2023 End: 10-29-2023 ambulatory Fabrice Dias MD Facility: [place] Start: 09-30-2023 End: 10-01-2023 ambulatory Fabrice Dias MD Facility: [place] Start: 2023 End: 09-24-2023 ambulatory Fabrice Dias MD Facility: [place] Start: 07-17-2023 End: 07-17-2023 ambulatory Rocio Chan Other [facility] Other Start: 07-17-2023 Office outpatient visit 15 minutes Rocio Chan [facility] Start: 05-27-2023 End: 05-28-2023 ambulatory Fabrice Dias MD Facility: [facility] Start: 01-23-[address] BAYRON BA . Facili ty:[facility] Start: 09-26-2022 End: 09-26-2022 Patient encounter procedure [place] VALENTIN [facility] Robert Start: 09-24-2022 End: 09-25-[address] BAYRON BA . Facility:[facility] Start: 09-18-2022 End: 09-18-2022 ambulatory KARLOS MELTON . Facility:[facility] Start: 04-16-2022 End: 04-16-2022 Patient encounter procedure [place] VALENTIN [facility] Procedures Date Procedure Procedure Detail Performing Clinician Start: 09-24-2022 PSA screening KARLOS ALVAREZ . Comment on above: Performed By: #### U RCX #### [facility] [address] [place] [address] Dr. Wally Zapien Start: 03-17-2019 Cystoscope, device ( physical object) [place] VALENTIN Cardiac catheterization Patr ick JYADON Coronary artery bypass graft Renonoe VALENTIN Extraction of cataract Kathy escobedo VALENTIN Hydrocelectomy [place] MITCH S Inguinal herniorrhaphy Patkarolyn escobedo VALENTIN Large intestine excision Pat noe VALENTIN Prosthetic arthropla sty of the hip [place] VALENTIN Repair of musculoten dinous cuff of shoulder [place] VALENTIN Tonsillectomy and adenoidectomy [place] JAYDON Plan of Treatment Date Care Activity Detail Author Start: 06-30-2024 ambulatory Ambulatory Facility:[facility] Immunizations Immunization Date Immunization Notes Care Provider Guru [place] 05-24-2022 influenza virus vacc ine, unspecified formulation [place] VALENTIN [facility] 04-20-2022 SARS-CoV-2 mRNA (jjpdzxvpiex-nene-frwydb e) vaccine [employer] [facility] 06-19-2021 SARS-CoV-2 (COVID-19 ) mRNA BNT-162b2 vax [employer] [facility] 06-01-2021 influenza virus vacc ine, unspecified formulation [employer] [facility] 05-23-2021 influenza virus vacc ine, unspecified formulation [employer] [facility] 11-10-2020 SARS-CoV-2 (COVID-19 ) mRNA BNT-162b2 vax [employer] [facility] 10-20-2020 SARS-CoV-2 (COVID-19 ) mRNA BNT-162b2 vax [employer] [facility] 08-04-2020 zoster vaccine recombinant [employer] [facility] 07-06-2020 SARS-CoV-2 (COVID-19 ) Ad26 vaccine, recombinant [employer] [facility] 06-24-2020 influenza virus vacc ine, unspecified formulation [employer] [facility] 06-03-2020 zoster vaccine recombinant [employer] [facility] 06-02-2020 SARS-CoV-2 (COVID-19 ) Ad26 vaccine, recombinant [place] VALENTIN [facility] [place] 05-26-2020 influenza virus vacc ine, unspecified formulation [employer] [facility] 05-29-2019 influenza virus vacc ine, unspecified formulation [employer] [facility] 06-17-2018 influenza virus vacc ine, unspecified formulation [employer] [facility] 05-14-2017 influenza virus vacc ine, unspecified formulation [employer] [facility] 05-14-2017 pneumococcal polysaccharide vaccine, 23 valent [employer] [facility] 05-17-2016 influenza virus vacc ine, unspecified formulation [employer] [facility] 05-17-2016 pneumococcal conjuga te vaccine, 13 valent [employer] [facility] 05-16-2015 influenza virus vacc ine, unspecified formulation [employer] [facility] Payers Date Payer Category Payer Private Health Insurance 1957 Medicare [id number] 1940 Unknown [id number] 2.16.84 [id number] 1942 Unknown [id number] 2.16.84 0.1.359568.3.579.2.593 1942 Unknown [id number] 2.16.84 0.1.111431.3.579.2.593 1942 Unknown [id number] 2.16. 840.1.827251.3.579.2.196 1942 Unknown [id number] 2.16. 840.1.714023.3.579.2.196 1942 Unknown [id number] 2.16. 840.1.342373.3.579.2.196 1942 Unknown [id number] 2.16. 840.1.009512.3.579.2.196 1942 Unknown [id number] 2.16. 840.1.054004.3.579.2.196 1942 Unknown [id number] 2.16.8 40.1.924117.3.579.2.727 1942 Unknown [id number] 2.16.8 40.1.858410.3.579.2.727 1942 Unknown [id number] 2.16.8 40.1.915687.3.579.2.1286 1942 Unknown [id number] 2.16.8 40.1.237622.3.579.2.1286 1942 Unknown [id number] 2.16.8 40.1.209566.3.579.2.1286 1942 Unknown [id number] 2.16.8 40.1.939153.3.579.2.1286 1942 Unknown [id number] 2.16.8 40.1.951382.3.579.2.1286 1942 Unknown [id number] 2.16.8 40.1.738697.3.579.2.1286 1942 Unknown [id number] 2.16.8 40.1.894028.3.579.2.1286 1942 Unknown [id number] 2.16.8 40.1.864801.3.579.2.1286 1942 Unknown [id number] 2.16.8 40.1.147196.3.579.2.1286 1942 Unknown [id number] 2.16.8 40.1.639418.3.579.2.727 1942 Unknown [id number] 2.16.8 40.1.709970.3.579.2.727 1942 Unknown [id number] 2.16.8 40.1.162441.3.579.2.727 1942 Unknown [id number] 2.16.8 40.1.410438.3.579.2.727 1942 Unknown [id number] 2.16.8 40.1.781251.3.579.2.727 1942 Unknown [id number] 2.16.8 40.1.960825.3.579.2.727 1942 Unknown [id number] 2.16.8 40.1.026695.3.579.2.727 1942 Unknown [id number] 2.16.8 40.1.730823.3.579.2.727 1942 Unknown [id number] 2.16.8 40.1.591977.3.579.2.727 1942 Unknown [id number] 2.16.8 40.1.745550.3.579.2.727 1942 Unknown [id number] 2.16.8 40.1.289419.3.579.2.727 Social History Date Type Detail Facility Start: 04-16-2022 End: 06-22-2024 Tobacco smoking status Never smoked tobacco (finding) [facility] Tobacco smoking status Never [facility] Sex Assigned At Male [facility] Functional Status Date Assessment Result Facility 06-22-2024 Functional Status N/A [facility] 06-02-2024 Functional Status N/A [facility] 03-17-2024 Functional Status N/A [facility] 02-11-2024 Functional Status N/A [facility] 09-26-2022 Functional Status N/A [facility] 04-16-2022 Functional Status N/A [facility] Clinical Notes 10-06-2020 to 06-02-2024 Note [...] Follow these instructions at home: Medicines Take valg-ujh-awuhcos and prescription medicines only as told by [...] provider. Document Revised: 05/03/2021 Document Reviewed: 05/03/2021 [employer] Patient Education 2023 [employer]. 06/02/2024 13:23:02 Urinary Tract Infection, Adult Urinary [...] Treatment for this condition includes: Antibiotic medicine. Myky-goq-yurjmiu medicines to treat discomfort. Drinking enough water [...] Follow these instructions at home: Medicines Take ilhy-etf-wbevkxo and prescription medicines only as told by [...] provider. Document Revised: 03/19/2021 Document Reviewed: 03/24/2021 [employer] Patient Education 2023 [employer]. 06/02/2024 13:22:59 Hematuria, Adult Hematuria, Adult Hematuria [...] Follow these instructions at home: Medicines Take glhx-zvq-bjntsfq and prescription medicines only as told by [...] or the blood stops without treatment. Take kjsx-edv-iqtjpqm and prescription medicines only as told by your health care provider. Drink enough fluid to keep your urine pale yellow. This information is not intended to replace advice given to you by your health care provider. Make sure you discuss any questions you have with your health care provider. Document Revised: 04/12/2021 Document Reviewed: 04/12/2021 [employer] Patient Education 2023 [employer]. Follow Up Care 05/25/2024 13:00:03 With:KIM Lino APRN, Lazara Echavarria, PARVIN, URL Address: When: Unknown Comments:4-week cath change [facility] 06-02-2024 Note Patient Education Obstetrics and Gynecology [...] this condition includes: ? Antibiotic medicine. ? Bfsu-xdp-jexljet medicines to treat discomfort. ? Drinking enough [...] these instructions at home: Medicines ? Take oqte-tpq-cgkfeve and prescription medicines only as told by [...] Document Revised: 03/19 (more content not included)... [facility] 04-17-[address] BRAIN WO CONT STR [...] Elias Garner DO on 04/17/2024 8:52 AM [facility] [facility] 03-17-2024 Hospital Discharge instructions Patient Education 03/17/2024 [...] Follow these instructions at home: Medicines Take hlkj-dko-iqwwqpw and prescription medicines only as told by [...] provider. Document Revised: 05/03/2021 Document Reviewed: 05/03/2021 [employer] Patient Education 2022 [employer]. Follow Up Care 03/13/2024 14:20:02 With:KIM Lino APRN, Lazara Echavarria, PARVIN, URL Address: When: Unknown [facility] [place] 03-17-2024 Note Patient Education Urology Acute Urinary [...] these instructions at home: Medicines ? Take ihen-gph-xnszbbp and prescription medicines only as told by [...] provider. Document Revised: 05/03/2021 Document Reviewed: 05/03/2021 ElsePrimes[employer] Patient Education ? 2022 [employer]. [facility] 02-11-2024 Evaluation + Plan note Diagnostic Tests PendingUrine Culture 02/11/24 [facility] 02-11-2024 Hospital Discharge instructions Patient [...] Follow these instructions at home: Medicines Take xauk-utb-lvadbut and prescription medicines only as told by [...] or the blood stops without treatment. Take gmlf-bri-mnxpemw and prescription medicines only as told by your health care provider. Drink enough fluid to keep your urine pale yellow. This information is not intended to replace advice given to you by your health care provider. Make sure you discuss any questions you have with your health care provider. Document Revised: 04/12/2021 Document Reviewed: 04/12/2021 [employer] Patient Education 2022 [employer] 02/11/2024 10:34:29 Benign Prostatic Hyperplasia Benign [...] urethra. Follow these instructions at home: Take rsgi-tkn-xxefwfw and prescription medicines only as told by [...] provider. Document Revised: 02/28/2022 Document Reviewed: 02/28/2022 [employer] Patient Education 2022 [employer]. Follow Up Care 04/16/2022 14:54:37 With:KIM Lino APRN, PARVIN Kirk, URL Address: When: Unknown Comments:1 year With:JAYDON COE, Reno Maciel, URL Address: [facility] [address], [place] [address] [phone] When: Unknown [facility] 02-11-2024 Note - From: Julia Charlton To: [facility] - Administrative; Sent: 02/11/2024 10:28:36 EDT Show up: 08/26/2024 10:28:00 EST Subject: schedule 1 yr f/u Due Date/Time: 02/02/2025 10:28:00 EDT Reminder/Recall Patient needs scheduled for a 1 yr f/u, no labs [facility] 07-17-2023 Evaluation note Encounter Date Diagnosis [...] no improvement in 2 to 3 days enStage Other 02-01-2023 Hospital Discharge instructions Patient Education [...] or mouth. Supplies needed: Soap. Alcohol-based hand store keeper. Standard cleaning products. Disinfectants, such as bleach. [...] water are not available, use alcohol-based hand store keeper. Avoid touching your face, mouth, nose, or [...] water. Air-dry your dishes or use a advertising columnist. Do not share dishes or eating utensils. [...] certain germs and not others. Read the customer experience specialist's instructions or read online resources to determine [...] minutes after each use, or according to customer experience specialist's instructions. Wash reusable cleaning cloths and sanitize [...] water are not available, use alcohol-based hand store keeper. In general: Stay home except to get [...] for Professionals in Infection Control and Epidemiology: professionals.site.apic.org/jegwitvn-tl-uukm/dws-ssicjcwkke-ntipxvv/home/ Summary It is important to know how [...] 05/21/2009 Document Revised: 12/08/2019 Document Reviewed: 11/06/2019 [employer] Patient Education 2020 [employer]. Follow Up Care 09/20/2022 14:58:28 With:JAYDON COE, Reno Maciel, URL Address: [facility] [address] , [place] [address]- When:3 months Comments:UTI F/U [facility] 08-22-2022 Hospital Discharge instructions Patient Education 04/16/2022 [...] urethra. Follow these instructions at home: Take eoyy-xje-gbicwnz and prescription medicines only as told by [...] 08/12/2006 Document Revised: 07/07/2019 Document Reviewed: 09/16/2017 [employer] Patient Education 2020 [employer]. 04/16/2022 14:44:17 Calorie Counting for Weight Loss [...] 08/12/2006 Document Revised: 05/01/2019 Document Reviewed: 07/12/2017 [employer] Patient Education 2020 [employer]. Follow Up Care 10/16/2021 15:00:57 With:JAYDON COE, Reno Maciel, URL Address: [address] [place] [phone] (1) When:Within 1 Year(s) [facility] 02-11-2021 NotePatient Outreach (COVAMN) KYLER RICHARD ([id number]) 1940 M Date Time Provider Department 10/06/20 JOLYNN RUSSO During your visit today, we recorded the following information about you: Allergies As of Date: 10/06/2020 (No Known Allergies) Date Reviewed: 11/27/2018 Reviewed by: Huyen Barraza - Fully Assessed Order(s):SARS-COVID VACCINE 1ST DOSE APPT [[id number]] Order #: [id number] FUTURE Prescriptions as of 10/06/2020 Sig: RHOPRESSA [...] arteriosclerosis [I25.10] Letter Text Encounter Status:Closed by [employer] (EBTH)NIDIA on 10/10/20[facility] Evaluation + Plan note Future Appointments Appointment Date:04/19/2023 09:30:00 AM Scheduled Provider:Reno VALENTIN MD Location:[facility] Appointment Type:URO Office Visit [facility] evaluation + Plan note Future Appointments Appointment Date:01/16/2023 09:45:00 AM Scheduled Provider:Reno VALENTIN MD Location:[facility] Appointment Type:URO Office Visit Appointment Date:04/19/2023 09:30:00 AM Scheduled Provider:Reno VALENTIN MD Location:[facility] Appointment Type:URO Office Visit [facility] Evaluation + Plan note Future Appointments Appointment Date:04/14/2024 11:30:00 AM Scheduled Provider:KIM Lino APRN, Lazara X Location:[facility] Appointment Type:URO Office Visit [facility] evaluation + Plan note Future Appointments Appointment Date:06/30/2024 09:00:00 AM Scheduled Provider:KIM Lino APRN Lazara Jericho Location:[facility] Appointment Type:URO Office Visit Diagnostic Tests Pending * Urine Culture 06/02/24 [facility] Evaluation + Plan note Future Appointments Appointment Date:06/30/2024 09:00:00 AM Scheduled Provider:KIM Lino APRN, [place] X Location:[facility] Appointment Type:URO Office Visit [facility] evaluation + Plan note Future Appointments Appointment Date:07/21/2024 11:00:00 AM Scheduled Provider:KIM Lino APRN, [place] X Location:[facility] Appointment Type:URO Office Visit [facility] Hismjwp general Narrative - Reported* Type Description Date Medical History heart disease Medical History colon cancer Medical History glaucoma Surgical History open heart surgery Surgical History colon surgery Surgical History 3 hernia repairs Surgical History torn retina Surgical History cataracts Surgical History left total hip 2017 Surgical History Eye lid lift both 2020 Hospitalization History see above Hospitalization History back spasms 2022 enStage Other Hospital course Narrative No data available for this section [facility] Hospital Discharge instructions No data available for this section [facility] No data available for this section [facility] Summary Purpose Family History No Family [...] section and content) DATE CREATED AUTHOR 09/19/2021 [facility] DATE CREATED AUTHOR AUTHOR'S ORGANIZ ATION 02/01/2023 [facility] DATE CREATED AUTHOR AUTHOR'S ORGANIZ ATION 12/31/2023 [facility] DATE CREATED AUTHOR AUTHOR'S ORGANIZ ATION 02/13/2024 [place] [facility] DATE CREATED AUTHOR AUTHOR'S ORGANIZ ATION 02/14/2024 [facility] DATE CREATED AUTHOR AUTHOR'S ORGANIZ ATION 04/22/2024 [facility] DATE CREATED AUTHOR AUTHOR'S ORGANIZ ATION 04/23/2024 [facility] DATE CREATED AUTHOR AUTHOR'S ORGANIZ ATION 06/03/2024 [facility] DATE CREATED AUTHOR AUTHOR'S ORGANIZ ATION 06/06/2024 [facility] DATE CREATED AUTHOR AUTHOR'S ORGANIZ ATION 06/27/2024 [place] [facility] Care Team (unrecognized sect ion and content) Personnel Name: Bayron Ba MD Address: [address] [place] [address] Personnel Name: Bayron Ba MD Address: Address: [address] [place] [address] Personnel Name: Bayron Ba MD Address: Address: [address] [place] [address] Personnel Name: Bayron Ba MD Address: Address: [address] [place] [address] Srinath HAMMOND, [facility]11- Personnel Name: Bayron Ba MD Address: Address: [address] [place] [address] Srinath HAMMOND, [facility]11- Personnel Name: Bayron Ba MD Address: Address: [address] [place] [address] Srinath HAMMOND, [facility]11[facility] Personnel Name: Bayron Ba MD Address: Address: [address] [place], [place] [id number] Personnel Name: Bayron Ba MD Address: Address: [address] [place] [address] [place], [address] Personnel Name: Bayron Ba MD Address: Address: [address] [place], [place] [id number] REASON FOR VISIT (unrecogniz ed section and [...] BE BASED ON THE PRIMARY CLINICAL RECORDS. [employer] provides no warranty or guarantee of the accuracy or completeness of information in this document.
--- NOTE | 2024-07-05 19:34 | ED.MALEGU1 ---
HPI - Male Genitourinary General Chief complaint: Urogenital-Male Stated complaint: UTI Time Seen by Provider: 07/05/24 19:20 Source: patient Mode of arrival: Wheelchair Limitations: no limitations History of Present Illness HPI Narrative: 83-year-old male presents to the ER with concerns of Sanches catheter obstruction. Patient notes for the past hour his catheter has not been draining and he has noticed blood in the catheter bag. He denies any trauma. He is on a blood thinner with a prior history of stroke. Patient has a pertinent history of remote colon cancer and has had some issues with urination and bowel movements. Patient states around 4 PM today his urine was yellow, clear and see-through. Patient noting significant suprapubic discomfort and fullness there is uncomfortable. He denies any chest pain or shortness of breath. Related Data Home Medications ?Medication ?Instructions ?Recorded ?Confirmed aspirin 81 mg tablet,delayed 81 mg PO DAILY 05/20/23 04/07/24 release atorvastatin 40 mg tablet 40 mg PO DAILY 05/20/23 04/07/24 dorzolamide 22.3 mg-timolol 6.8 1 drp ophthalmic (eye) BID 05/20/23 04/07/24 mg/mL eye drops icosapent ethyl 1 gram capsule 2 g PO BID 05/20/23 04/07/24 latanoprost 0.005 % eye drops 1 drp ophthalmic (eye) .QHS 05/20/23 04/07/24 lisinopril 10 mg tablet 10 mg PO DAILY 05/20/23 04/07/24 meloxicam 15 mg tablet 15 mg PO DAILY 05/20/23 04/07/24 netarsudil 0.02 % eye drops 1 drp ophthalmic (eye) DAILY 05/20/23 04/07/24 (Rhopressa) tamsulosin 0.4 mg capsule 0.4 mg PO BID 05/20/23 04/07/24 brimonidine 0.2 % eye drops drp ophthalmic (eye) 03/02/24 cetirizine 10 mg tablet 10 mg PO DAILY 03/02/24 04/07/24 fluticasone propionate 50 1 spray intranasal DAILY 03/02/24 04/07/24 mcg/actuation nasal spray,suspension hyoscyamine sulfate 0.125 mg 0.125 mg sublingual Q6H 03/02/24 04/07/24 sublingual tablet Previous Rx's ?Medication ?Instructions ?Recorded lidocaine 5 % topical patch 1 patch topical DAILY #30 ea 12/18/23 cephalexin 500 mg capsule 500 mg PO TID 7 days #21 caps 05/10/24 etodolac 300 mg capsule 300 mg PO Q8H PRN pain #20 caps 05/22/24 oxybutynin chloride 5 mg tablet 5 mg PO DAILY #10 tabs 06/03/24 Allergies Allergy/AdvReac Type Severity Reaction Status Date / Time levofloxacin (From Levaquin) AdvReac UPSET Verified 07/05/24 19:28 STOMACH Review of Systems ROS Constitutional Denies: fever or chills Eyes Denies: change in vision Ears, nose, mouth, and throat Denies: throat pain, neck pain or throat swelling Cardiovascular Denies: chest pain, palpitations or edema Respiratory Denies: shortness of breath, cough or wheezing Gastrointestinal Reports: abdominal pain (suprapubic); Denies: nausea or vomiting Genitourinary Reports: blood in urine and other (sanches catheter not draining. ) Musculoskeletal Denies: back pain or neck pain Integumentary/Breast Denies: rash, itching or redness Neurological Denies: headache PFSH [facility] Medical History (Updated 07/05/24 @ 21:15 by EMERSON Morataya) [place] (hard of hearing) ?H91.90 - Unspecified hearing loss, unspecified ear (ICD-10) Lumbar stenosis with neurogenic claudication ?M48.062 - Spinal stenosis, lumbar region with neurogenic claudication (ICD-10) Lumbar spondylosis ?M47.816 - Spondylosis without myelopathy or radiculopathy, lumbar region (ICD-10) Myofascial pain ?M79.18 - Myalgia, other site (ICD-10) Acute UTI ?N39.0 - Urinary tract infection, site not specified (ICD-10) Acute urinary retention ?R33.8 - Other retention of urine (ICD-10) Acute urinary retention ?R33.8 - Other retention of urine (ICD-10) BPH (benign prostatic hyperplasia) ?N40.0 - Benign prostatic hyperplasia without lower urinary tract symptoms (ICD-10) Urethral stricture ?N35.919 - Unspecified urethral stricture, male, unspecified site (ICD-10) Gross hematuria ?R31.0 - Gross hematuria (ICD-10) Sleep apnea ?G47.30 - Sleep apnea, unspecified (ICD-10) High cholesterol ?E78.00 - Pure hypercholesterolemia, unspecified (ICD-10) Heart disease ?I51.9 - Heart disease, unspecified (ICD-10) Hypertension ?I10 - Essential (primary) hypertension (ICD-10) Glaucoma ?H40.9 - Unspecified glaucoma (ICD-10) Colon cancer ?C18.9 - Malignant neoplasm of colon, unspecified (ICD-10) Inability to walk ?R26.2 - Difficulty in walking, not elsewhere classified (ICD-10) Chronic back pain ?M54.9 - Dorsalgia, unspecified (ICD-10) ?G89.29 - Other chronic pain (ICD-10) Surgical History (Updated 04/07/24 @ 09:07 by Sandra Hill) History of cataract extraction ?Z98.49 - Cataract extraction status, unspecified eye (ICD-10) S/P tonsillectomy and adenoidectomy ?Z90.89 - Acquired absence of other organs (ICD-10) History of hydrocelectomy ?Z98.890 - Other specified postprocedural states (ICD-10) Detached retina, left ?H33.22 - Serous retinal detachment, left eye (ICD-10) History of colectomy ?Z90.49 - Acquired absence of other specified parts of digestive tract (ICD-10) 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 Smoking status: Never smoker Non-prescribed substance use: denies use Previous occupational history: retired Highest level of school completed/degree received: Bachelor's degree Are you now , , , , never or living with a partner: Little interest or pleasure in doing things: not at all Feeling down, depressed, or hopeless: not at all Feel stressed/tense/nervous/anxious/difficulty sleeping: not at all Do you think of yourself as: straight/heterosexual Gender Identity: male Exam Narrative Exam Narrative: Nurses notes and vital signs reviewed and patient is not hypoxic. General: The patient appears uncomfortable holding lower abdomen, no active drainage from sanches catheter. Skin: Warm, dry, no pallor noted. Head: Normocephalic, atraumatic Neck: Supple, trachea mid-line, no tenderness, no lymphadenopathy Eye: Pupils are equal, round and reactive to light, EOMI Ears, Nose, Mouth, and Throat: TM are clear, normal light reflex, oral mucosa is moist, no posterior oropharynx erythema or hypertrophy, uvula is mid-line Cardiovascular: Regular Rate and Rhythm Respiratory: Patient is in no distress, no accessory muscle use, lungs are clear to auscultation, no wheezing, rales or rhonchi. Chest Wall: no tenderness Back: non-tender, no CVA tenderness : uncircumiszed male. + phimosis, obstructing view of catheter to urethral meatus. scrotum with edema, but nontender. Musculoskeletal: normal ROM, no tenderness, chronic appearing 3+ edema in lower legs. GI: Normal bowel sounds, + Suprapubic tenderness to palpation, surgical scar noted in anterior midline lower no masses appreciated. No rebound, guarding, or rigidity noted. Neurological: A&O x4 Psychiatric: Cooperative Constitutional Vital Signs, click to edit/add: Last Vital Signs Temp 98.1 F 07/05/24 19:17 Pulse 65 07/05/24 20:18 Resp 18 07/05/24 20:18 BP 150/81 H 07/05/24 20:18 Pulse Ox 97 07/05/24 20:18 O2 Del Method Room Air 07/05/24 19:17 Course Vital Signs Vital signs: Vital Signs Temperature 98.1 F 07/05/24 19:17 Pulse Rate 106 H 07/05/24 19:17 Respiratory Rate 18 07/05/24 19:17 Blood Pressure 205/100 H 07/05/24 19:17 Pulse Oximetry 98 07/05/24 19:17 Oxygen Delivery Method Room Air 07/05/24 19:17 Temperature 98.1 F 07/05/24 19:17 Pulse Rate 65 07/05/24 20:18 Respiratory Rate 18 07/05/24 20:18 Blood Pressure 150/81 H 07/05/24 20:18 Pulse Oximetry 97 07/05/24 20:18 Oxygen Delivery Method Room Air 07/05/24 19:17 MDM - Male Genitourinary MDM Narrative Medical decision making narrative: Patient presents with Sanches catheter obstruction. Immediate irrigation at the bedside was able to relieve the patient's discomfort. His blood pressure will be rechecked when his symptoms are improved. Patient states he has had blood in his Sanches catheter before that caused an obstruction. After irrigation there was only minimal dribbling of urine with suspected clot in the catheter tubing. Discussed possible transition to 3 way cather, pt noted to have a phimosis. and uretheral meatus can't be visualized. Patient states this catheter and currently was placed 2 weeks ago to the best of his memory. Patient has 0 postvoid with ultrasound at the bedside. Sanches catheter bag was noted to have a clot, a new bag was attached and we will observe for spontaneous drainage. With urologist at 8:15pm-discussed patient's gross hematuria, Sanches catheter obstruction prior to arrival and that we are unable to safely change his Sanches catheter. Current catheter is dribbling but dark red blood and clots are noted. Concern for repeat obstruction discussed. Repeat vital signs improved. Advised he would like to review the patient's chart and would call back. Dr. Ashton returned phone call, the patient has had over 600 mL of urine output, still bloody but appears more Joel-Aid and light in color. Continuous drainage noted. Patient with no complaints. Labs appear grossly stable. Urinalysis will be sent but the patient agreeable with discharge home. He will contact the urology office in the morning for possible same-day appointment for reevaluation to which Dr. Ashton is agreeable and available in the [place] location Should the patient have any difficulties overnight, he will return to the ER for reevaluation. Lab Data Attestation: I reviewed the patient's lab results. Labs: Lab Results 07/05/24 Range/Units 20:21 WBC 5.9 (4.0-11.0) 10^3/uL RBC 4.45 L (4.70-6.10) 10^6/uL Hgb 14.2 (14.0-18.0) g/dL Hct 40.9 L (42.0-54.0) % MCV 91.9 (80.0-94.0) fL MCH 31.9 (25.9-34.0) pg MCHC 34.7 (29.9-35.2) g/dL RDW 13.5 (11.0-15.0) % Plt Count 168 (150-450) 10^3/uL MPV 10.5 (9.5-13.5) fL Neut % (Auto) 72.5 (43.0-75.0) % Lymph % (Auto) 16.4 L (20.5-60.0) % [place] % (Auto) 6.9 (1.7-12.0) % Eos % (Auto) 3.2 (0.9-7.0) % Baso % (Auto) 0.7 (0.2-2.0) % Neut # (Auto) 4.3 (1.4-6.5) 10^3/uL Lymph # (Auto) 1.0 L (1.2-3.8) 10^3/uL [place] # (Auto) 0.4 (0.3-0.8) 10^3/uL Eos # (Auto) 0.2 (0.0-0.7) 10^3/uL Baso # (Auto) 0.0 (0.0-0.1) 10^3/uL Abs Immat Gran (auto) 0.02 (0.00-0.03) 10^3/uL Imm/Tot Granulo (auto) 0.3 (0.0-0.5) % PT 11.9 H (9.0-11.6) sec INR 1.14 APTT 25.1 (22.3-36.2) sec Sodium 144 (136-145) mmol/L Potassium 4.0 (3.5-5.1) mmol/L Chloride 108 H (98-107) mmol/L Carbon Dioxide 21.7 (21.0-32.0) mmol/L Anion Gap 18.3 BUN 20.0 H (7.0-18.0) mg/dL Creatinine 0.97 (0.70-1.30) mg/dL Est GFR ( Amer) >60 (>=60 mL/min/1.73m^2) Est GFR (Non-Af Amer) >60 (>=60 mL/min/1.73m^2) BUN/Creatinine Ratio 20.6 Glucose 115 H (74-106) mg/dL Calcium 8.3 L (8.5-10.1) mg/dL Total Bilirubin 0.8 (0.2-1.0) mg/dL AST 15 (15-37) U/L ALT 24 (16-63) U/L Alkaline Phosphatase 89 (46-116) U/L Total Protein 6.1 L (6.4-8.2) g/dL Albumin 3.4 (3.4-5.0) g/dL Globulin 2.7 g/dL Albumin/Globulin Ratio 1.3 Discharge Plan Discharge Chief Complaint: Urogenital-Male Clinical Impression: Hematuria, Obstructed Sanches catheter Patient Disposition: Home, Self-Care Time of Disposition Decision: 21:10 Condition: Good Prescriptions / Home Meds: No Action atorvastatin 40 mg tablet 40 mg PO DAILY dorzolamide-timolol 22.3-6.8 mg/mL drops 1 drp OPHTHALMIC (EYE) BID Rx Instructions: BOTH EYES icosapent ethyl 1 gram capsule 2 g PO BID latanoprost 0.005 % drops 1 drp OPHTHALMIC (EYE) .QHS Rx Instructions: RIGHT EYE lisinopril 10 mg tablet 10 mg PO DAILY meloxicam 15 mg tablet 15 mg PO DAILY Rhopressa 0.02 % drops 1 drp OPHTHALMIC (EYE) DAILY Rx Instructions: RIGHT EYE tamsulosin 0.4 mg capsule 0.4 mg PO BID aspirin 81 mg tablet,delayed release (DR/EC) 81 mg PO DAILY lidocaine 5 % adhesive patch,medicated 1 patch topical DAILY Qty: 30 2RF Rx Instructions: leave on most painful area for up to 12 hrs each day cetirizine 10 mg tablet 10 mg PO DAILY hyoscyamine sulfate 0.125 mg tablet, sublingual 0.125 mg sublingual Q6H brimonidine 0.2 % drops OPHTHALMIC (EYE) fluticasone propionate 50 mcg/actuation spray,suspension 1 spray INTRANASAL DAILY cephalexin 500 mg capsule 500 mg PO TID 7 Days Qty: 21 0RF etodolac 300 mg capsule 300 mg PO Q8H PRN (Reason: pain) Qty: 20 0RF oxybutynin chloride 5 mg tablet 5 mg PO DAILY Qty: 10 0RF Print Language: Vietnamese Instructions: Hematuria (ED) Additional Instructions: Dr. Thompson--Felicita ( covering for Dr. Valentin) Call [phone] in morning [facility] [address], [address], [place] [address] Referrals: Bayron Ba MD [Primary Care Provider] - 1 week
[2024-07-05 20:18] VITALS: BP 150/81; PULSE 65; O2SAT 97
[2024-07-05 20:28] LABS: Basophils Percent Auto 0.7 % (0.2-2.0); Eosinophils Absolute Auto 0.2 10^3/uL (0.0-0.7); Eosinophils Percent Auto 3.2 % (0.9-7.0); Hematocrit 40.9 % (42.0-54.0); Hemoglobin 14.2 g/dL (14.0-18.0); Immature Granulocytes Abs Auto 0.02 10^3/uL (0.00-0.03); Immature Granulocytes Pct Auto 0.3 % (0.0-0.5); Lymphocytes Percent Auto 16.4 % (20.5-60.0); Mean Corpuscular HGB Conc 34.7 g/dL (29.9-35.2); Mean Corpuscular Hemoglobin 31.9 pg (25.9-34.0); Mean Corpuscular Volume 91.9 fL (80.0-94.0); Mean Platelet Volume 10.5 fL (9.5-13.5); Monocytes Absolute Auto 0.4 10^3/uL (0.3-0.8); Monocytes Percent Auto 6.9 % (1.7-12.0); Neutrophils Absolute Auto 4.3 10^3/uL (1.4-6.5); Neutrophils Percent Auto 72.5 % (43.0-75.0); Platelet Count 168 10^3/uL (150-450); Red Blood Count 4.45 10^6/uL (4.70-6.10); Red Cell Distribution Width 13.5 % (11.0-15.0); White Blood Count 5.9 10^3/uL (4.0-11.0)
[2024-07-05 20:42] LABS: Alanine Aminotransferase 24 U/L (16-63); Albumin Globulin Ratio 1.3; Albumin Level 3.4 g/dL (3.4-5.0); Alkaline Phosphatase 89 U/L (46-116); Anion Gap 18.3; Aspartate Amino Transferase 15 U/L (15-37); BUN Creatinine Ratio 20.6; Bilirubin Total 0.8 mg/dL (0.2-1.0); Calcium 8.3 mg/dL (8.5-10.1); Carbon Dioxide 21.7 mmol/L (21.0-32.0); Chloride 108 mmol/L (98-107); Estimated GFR (African America >60 (>=60 mL/min/1.73m^2); Estimated GFR (Non-African Ame >60 (>=60 mL/min/1.73m^2); Globulin 2.7 g/dL; Glucose 115 mg/dL (74-106); Sodium 144 mmol/L (136-145); Total Protein 6.1 g/dL (6.4-8.2)
[2024-07-05 20:43] LABS: INR 1.14; Partial Thromboplastin Time 25.1 sec (22.3-36.2); Prothrombin Time 11.9 sec (9.0-11.6)
[2024-07-05 23:22] LABS: Color Urine DK. RED (YELLOW); Specific Gravity Urine 1.015 (1.005-1.025)
[2024-07-05 23:23] LABS: Bilirubin Urine COLOR INTERFERENCE (NEGATIVE); Blood Urine COLOR INTERFERENCE (NEGATIVE); Glucose Urine UA COLOR INTERFERENCE mg/dL (NEGATIVE); Ketones Urine COLOR INTERFERENCE mg/dL (NEGATIVE); Leukocyte Esterase Urine COLOR INTERFERENCE (NEGATIVE); Nitrite Urine COLOR INTERFERENCE (NEGATIVE); Protein Urine COLOR INTERFERENCE mg/dL (NEG/TRACE); Urine Microscopic Indicated YES; Urobilinogen Urine COLOR INTERFERENCE EU/dL (0.2-1.0)
[2024-07-05 23:24] LABS: Clarity Urine CLOUDY (CLEAR)
[2024-07-05 23:25] LABS: pH Urine COLOR INTERFERENCE (5.0-9.0)
[2024-07-05 23:46] LABS: RBC Urine >100 #/HPF (0-2); WBC Urine 0-2 #/HPF (NONE SEEN)
[2024-07-05 23:47] LABS: Bacteria Urine NONE SEEN #/HPF (NONE SEEN); Cast Seen? NONE SEEN #/LPF (NONE SEEN); Crystals Seen? None Seen #/HPF (None Seen); Mucus Urine NONE SEEN (NONE SEEN); Squamous Epithelial Cell Urine NONE SEEN #/LPF (NONE/RARE)
== END 2024-07-05 21:53 | disposition home or self-care (01) ==
PROVIDERS: Personal Emergency Response Attendant; Emergency Provider Emergency Medicine; PCP Family Medicine
DX: T83.091A Other mechanical complication of indwelling urethral catheter, initial encounter (principal); R31.9 Hematuria, unspecified
CPT/HCPCS: 36415; 80053; 81001; 85025; 85610; 85730; 99284

== ENCOUNTER 2024-07-06 06:34 | Emergency (ER) | payer MEDICARE, SELFPAY ==
[2024-07-06 06:37] VITALS: BP 170/124; PULSE 101; TEMP 36.8; O2SAT 96; BMI 36.6
[2024-07-06] MEDS: MORPHINE SULFATE 4 MG/ML VIAL IV (07:10)
--- NOTE | 2024-07-06 07:17 | PC.NURSE ---
Patient riving on cart in pain. Attempted to irrigate placed 20 ml went in easily but could not get return. Patient was in extreme pain with the irrigation
[2024-07-06 07:26] LABS: Basophils Absolute Auto 0.1 10^3/uL (0.0-0.1); Basophils Percent Auto 0.5 % (0.2-2.0); Eosinophils Percent Auto 0.2 % (0.9-7.0); Hemoglobin 15.5 g/dL (14.0-18.0); Immature Granulocytes Abs Auto 0.04 10^3/uL (0.00-0.03); Immature Granulocytes Pct Auto 0.3 % (0.0-0.5); Lymphocytes Absolute Auto 2.3 10^3/uL (1.2-3.8); Lymphocytes Percent Auto 17.1 % (20.5-60.0); Mean Corpuscular HGB Conc 34.4 g/dL (29.9-35.2); Mean Corpuscular Hemoglobin 31.8 pg (25.9-34.0); Mean Corpuscular Volume 92.4 fL (80.0-94.0); Mean Platelet Volume 10.4 fL (9.5-13.5); Monocytes Absolute Auto 0.7 10^3/uL (0.3-0.8); Monocytes Percent Auto 5.1 % (1.7-12.0); Neutrophils Absolute Auto 10.2 10^3/uL (1.4-6.5); Neutrophils Percent Auto 76.8 % (43.0-75.0); Platelet Count 211 10^3/uL (150-450); Red Blood Count 4.87 10^6/uL (4.70-6.10); Red Cell Distribution Width 13.5 % (11.0-15.0); White Blood Count 13.3 10^3/uL (4.0-11.0)
[2024-07-06 07:33] VITALS: BP 161/93; PULSE 105; O2SAT 96
[2024-07-06 07:35] LABS: Anion Gap 18.1; BUN Creatinine Ratio 18.4; Calcium 9.1 mg/dL (8.5-10.1); Carbon Dioxide 24.6 mmol/L (21.0-32.0); Chloride 106 mmol/L (98-107); Estimated GFR (African America >60 (>=60 mL/min/1.73m^2); Estimated GFR (Non-African Ame >60 (>=60 mL/min/1.73m^2); Glucose 161 mg/dL (74-106); Potassium 3.7 mmol/L (3.5-5.1); Sodium 145 mmol/L (136-145)
[2024-07-06] MEDS: OXYBUTYNIN chloride 5 MG TABLET PO (07:36)
--- OUTSIDE RECORDS SUMMARY | 2024-07-06 07:36 | XMS_ITS | CCD ---
Author Organization [facility] Care Team Providers Care Bookkeeper Name Role Phone Bayron Ba Primary Care Physician [phone] GERONIMO ., KARLOS Admitting Unavailable GERONIMO ., [...] (qualifier value) [facility] (11 sources) levoFLOXacin; Translations: [levofloxacin] Drug Allergy 04-17-2024 Irritation (qualifier value) [facility] Medications Current Medications Medication Drug Class(es) [...] for 14 day(s), 60 gm, Refill(s) 0, [email or web address], 158, cm, 06/02/24 11:55:00 EDT, Height/Length [...] day(s), # 14 cap(s), Refills(s) 0, Pharmacy: [email or web address] #[facility], 158, cm, 06/02/24 11:55:00 EDT, Height/Length Dosing, 96, kg, 06/02/24 11:55:00 EDT, Weight Dosing Start Date: 06/02/24 Stop Date: 06/09/24 Status: Ordered Start: 09-26-2022 End: 10-06-2022 take 1 capsule by mouth twice daily doxycycline hyclate 100 mg Cap 100 mg = 1 cap(s), Oral, BID, X 10 day(s), # 20 cap(s), Refills(s) 0, Pharmacy: [facility] #[id number], 160, cm, 09/26/22 13:50:00 EST, Height/Length Dosing, [...] 03/13/19 Status: Ordered take [address] 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 [address]- Medications What How Much When Instructions Unchanged [...] fluticasone nasal (fluticasone Nasal 0.05 mg/ inh [place]) instill 1 spray into each nostril once [...] for choosing us for your care. Normal [facility] C Urineon 06-04-2024 Bacteria identified Cx Nom (U) Microbiology PROCEDURE: Urine Culture [R1] SOURCE: U Random BODY SITE: COLLECTED DATE/TIME: 06/02/2024 12:49 EDT RECEIVED DATE/TIME: 06/02/2024 17:59 EDT START DATE/TIME: 06/02/2024 17:59 EDT FREE TEXT SOURCE: Zoie FOX, WATER SANDER-C, Zoie FOX, RENA-C, Lazara Haile X FINAL [...] R1: This test was performed at: [facility], [address] [place] [address], [address]- , [place], Normal [facility] Comment on above: Performed By: #### 2 [id number] #### [facility] [address] [place] [id number] Urology Office/Clinic Noteon 06-02-2024 Urology Office/Clinic Note Urology Office/Clinic Note Chief Complaint [facility] ER follow up HPI Staff 83 year old male patient presents today for a ER follow up from [facility]. Has had a cath from prostate [...] with voice recognition artificial intelligence software, specifically [employer], [employer] and or [employer]. Substitutions may have occurred due to the [...] day(s), # 14 cap(s), Refills(s) 0, Pharmacy: [email or web address] #[facility], 158, cm, 06/02/24 11:55:00 EDT, Height/Length Dosing, 96, kg, 06/02/24 11:55:00 ED... 2. Urinary retention (R33.9: Retention of urine, unspecified) Has experienced urinary retention in the past. 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 Episode of retention 03/12/2024 at [facility] ER. Patient opted to keep [place] [...] day or 2 prior to ER visit. [facility] ER 05/10/2024 with difficulty urinating. There [...] 04-20-2024 Albumin [Mass/Vol] 3.4 g/dL Normal 3.2-5.3 [facility] Comment on above: Performed By: #### C MP ####[facility] ([id number])[address] [place] [place] [address] ALP [Catalytic activity/Vol] 73 U/L Normal 39-130 [facility] Comment on above: Performed By: #### C MP ####[facility] ([id number])[address] [place] [address]771 ALT [Catalytic activity/Vol] 21 U/L Normal 0-40 [facility] Comment on above: Performed By: #### C MP ####[facility] ([id number])[address] [place] [address], [place] [address] Anion gap [Moles/Vol] 8 mmol/L Normal 5-15 [facility] Comment on above: Performed By: #### C MP ####[facility] ([id number])[address] [place] [address], [place] [address] AST [Catalytic activity/Vol] 17 U/L Normal 0-41 [facility] Comment on above: Performed By: #### C MP ####[facility] ([id number])[address] [place] [address], [place] [address] Bilirubin [Mass/Vol] 0.7 mg/dL Normal 0.3-1.2 [facility] Comment on above: Performed By: #### C MP ####[facility] ([id number])[address] [place] [address], [place] [address] Calcium [Mass/Vol] 8.4 mg/dL Low 8.5-10.5 [facility] Comment on above: Performed By: #### C MP ####[facility] ([id number])[address] [place] [address], [place] [address] Chloride [Moles/Vol] 102 mmol/L Normal 98-109 [facility] Comment on above: Performed By: #### C MP ####[facility] ([id number])[address] [place] [address], [place] [address] CO2 [Moles/Vol] 24 mmol/L Normal 22-32 [facility] Comment on above: Performed By: #### C MP ####[facility] ([id number])[address] [place] [address], [place] [address] Creatinine [Mass/Vol] 0.85 mg/dL Normal 0.70-1.20 [facility] Comment on above: Result Comment: METH OD TRACEABLE TO IDMS STANDARD Performed By: #### C MP ####[facility] ([id number])[address] [place] [address]607 GFR/1.73 sq M.predicted among non-blacks MDRD (S/P/Bld) [Vol rate/Area] 87 mL/min/{1.73_m2} Normal >59 [facility] Comment on above: Result Comment: Reported eGFR is based on the CKD-EPI 2020 equation that does not use a race coefficient. Performed By: #### C MP ####[facility] ([id number])[address] [place] [address] 11419 Glucose [Mass/Vol] 119 mg/dL High 65-99 [facility] Comment on above: Performed By: #### C MP ####[facility] ([id number])[address] [place] [address] Potassium [Moles/Vol] 3.4 mmol/L Low 3.5-5.0 [facility] Comment on above: Performed By: #### C MP ####[facility] ([id number])[address] [place] [address] 16720 Protein [Mass/Vol] 6.4 g/dL Normal 6.0-8.0 [facility] Comment on above: Performed By: #### C MP ####[facility] ([id number])[address] [place] [address] 84475 Sodium [Moles/Vol] 134 mmol/L Normal 134-146 [facility] Comment on above: Performed By: #### C MP ####[facility] ([id number])[address] [place] [address] 39431 Urea nitrogen [Mass/Vol] 19 mg/dL Normal 5-27 [facility] Comment on above: Performed By: #### C MP ####[facility] ([id number])[address] [place] [address] 57476 CBC AND AUTO DIFFon 08-25-20 24 ABSOLUTE BASOPHIL 0.0 X10E9/L Normal 0.0-0.2 [facility] Comment on above: Performed By: #### C MP, CBCA ####[facility] ([id number])[address] [place] [address] 82038 ABSOLUTE NEUTROPHIL 3.3 X10E9/L Normal 1.5-6.6 [facility] Comment on above: Performed By: #### C MP, CBCA ####[facility] ([id number])[address] [place] [address] 85851 Basophils/100 WBC (Bld) 0.4 % Normal [facility] Comment on above: Performed By: #### C MP, CBCA ####[facility] ([id number])[address] [place] [address] Eosinophils (Bld) [#/Vol] 0.3 10*3/uL Normal 0.0-0.4 [facility] Comment on above: Performed By: #### C MP, CBCA ####[facility] ([id number])[address] [place] [address] 57653 Eosinophils/100 WBC (Bld) 4.5 % Normal [facility] Comment on above: Performed By: #### C MP, CBCA ####[facility] ([id number])[address] [place] [address] 96296 Erythrocyte distribution width (RBC) [Ratio] 13.4 % Normal 11.5-15.0 [facility] Comment on above: Performed By: #### C MP, CBCA ####[facility] ([id number])[address] [place] [address] 24275 Hematocrit (Bld) [Volume fraction] 43.2 % Normal 39-49 [facility] Comment on above: Performed By: #### C MP, CBCA ####[facility] ([id number])[address] [place] [address] 42844 Hemoglobin (Bld) [Mass/Vol] 15.1 g/dL Normal 13.0-17.0 [facility] Comment on above: Performed By: #### C MP, CBCA ####[facility] ([id number])[address] [place] [address] 14845 Lymphocytes (Bld) [#/Vol] 2.1 10*3/uL Normal 1.0-3.5 [facility] Comment on above: Performed By: #### C MP, CBCA ####[facility] ([id number])[address] [place] [address] 96646 Lymphocytes/100 WBC (Bld) 33.9 % Normal [facility] Comment on above: Performed By: #### C MP, CBCA ####[facility] ([id number])[address] [place] [address] 86437 MCH (RBC) [Entitic mass] 31.9 pg Normal 27-34 [facility] Comment on above: Performed By: #### C MP, CBCA ####[facility] ([id number])[address] [place] [address] 93036 MCHC (RBC) [Mass/Vol] 34.8 g/dL Normal 32-36 [facility] Comment on above: Performed By: #### C MP, CBCA ####[facility] ([id number])[address] [place] [address] 64695 MCV (RBC) [Entitic vol] 92 fL Normal 80-100 [facility] Comment on above: Performed By: #### C MP, CBCA ####[facility] ([id number])[address] [place] [address] 22814 Monocytes (Bld) [#/Vol] 0.5 10*3/uL Normal 0-0.9 [facility] Comment on above: Performed By: #### C MP, CBCA ####[facility] ([id number])[address] [place] [address] 20774 Monocytes/100 WBC (Bld) 8.5 % Normal [facility] Comment on above: Performed By: #### C MP, CBCA ####[facility] ([id number])[address] [place] [address] 73223 Neutrophils/100 WBC (Bld) 52.7 % Normal [facility] Comment on above: Performed By: #### C MP, CBCA ####[facility] ([id number])[address] [place] [address] 46300 Platelet mean volume (Bld) [Entitic vol] 8.2 fL Normal 7-12 [facility] Comment on above: Performed By: #### C MP, CBCA ####[facility] ([id number])[address] [place] [address] 84827 Platelets (Bld) [#/Vol] 140 10*3/uL Low 150-450 [facility] Comment on above: Performed By: #### C MP, CBCA ####[facility] ([id number])[address] [place] [address] 21215 RBC COUNT 4.71 X10E12/L Normal 4.10-5.70 [facility] Comment on above: Performed By: #### C MP, CBCA ####[facility] ([id number])[address] [place] [address] 22016 WBC (Bld) [#/Vol] 6.2 10*3/uL Normal 4.0-11.0 [facility] Comment on above: Performed By: #### C MP, CBCA ####[facility] ([id number])[address] [place] [address] [place] [address] COMPREHENSIVE METABOLIC PANE Jarett 04-19-2024 Albumin [Mass/Vol] 3.4 g/dL Normal 3.2-5.3 [facility] Comment on above: Performed By: #### C SERINA, CBCA ####[facility] ([id number])[address] [place] [address], [place] [address] ALP [Catalytic activity/Vol] 69 U/L Normal 39-130 [facility] Comment on above: Performed By: #### C SERINA, CBCA ####[facility] ([id number])[address] [place] [address] [place] [address] ALT [Catalytic activity/Vol] 18 U/L Normal 0-40 [facility] Comment on above: Performed By: #### C SERINA, CBCA ####[facility] ([id number])[address] [place] [address] [place] [address] Anion gap [Moles/Vol] 9 mmol/L Normal 5-15 [facility] Comment on above: Performed By: #### C SERINA CBCA ####[facility] ([id number])[address] [place] [address] 78711 AST [Catalytic activity/Vol] 23 U/L Normal 0-41 [facility] Comment on above: Performed By: #### C SERINA, CBCA ####[facility] ([id number])[address] [place] [address] [place] [address] Bilirubin [Mass/Vol] 1.0 mg/dL Normal 0.3-1.2 [facility] Comment on above: Result Comment: RESU LTS QUESTIONABLE DUE TO HEMOLYSIS Performed By: #### C SERINA, CBCA ####[facility] ([id number])[address] [place] [address] [place] [address] Calcium [Mass/Vol] 8.3 mg/dL Low 8.5-10.5 [facility] Comment on above: Performed By: #### C MP, CBCA ####[facility] ([id number])[address] [place] [address] [place] [address] Chloride [Moles/Vol] 107 mmol/L Normal 98-109 [facility] Comment on above: Performed By: #### C SURAJ SMALLS ####[facility] ([id number])[address] [place] [address] 96633 CO2 [Moles/Vol] 21 mmol/L Low 22-32 [facility] Comment on above: Performed By: #### C SURAJ SMALLS ####[facility] ([id number])[address] [place] [address] 81581 Creatinine [Mass/Vol] 0.81 mg/dL Normal 0.70-1.20 [facility] Comment on above: Result Comment: METH OD TRACEABLE TO IDMS STANDARD Performed By: #### C SURAJ SMALLS ####[facility] ([id number])[address] [place] [address] 35263 GFR/1.73 sq M.predicted among non-blacks MDRD (S/P/Bld) [Vol rate/Area] 89 mL/min/{1.73_m2} Normal >59 [facility] Comment on above: Result Comment: Reported eGFR is based on the CKD-EPI 2020 equation that does not use a race coefficient. Performed By: #### C SURAJ SMALLS ####[facility] ([id number])[address] [place] [address] 11331 Glucose [Mass/Vol] 125 mg/dL High 65-99 [facility] Comment on above: Performed By: #### C SURAJ SMALLS ####[facility] ([id number])[address] [place] [address] 26287 Potassium [Moles/Vol] 4.0 mmol/L Normal 3.5-5.0 [facility] Comment on above: Result Comment: SPEC IMEN HEMOLYZED, RESULTS INCREASED Performed By: #### C MP, CBCA ####[facility] ([id number])[address] [place] [address] 00813 Protein [Mass/Vol] 6.0 g/dL Normal 6.0-8.0 [facility] Comment on above: Performed By: #### C MP, CBCA ####[facility] ([id number])[address] [place] [address] 47688 Sodium [Moles/Vol] 137 mmol/L Normal 134-146 [facility] Comment on above: Performed By: #### C MP, CBCA ####[facility] ([id number])[address] [place] [address] 05140 Urea nitrogen [Mass/Vol] 16 mg/dL Normal 5-27 [facility] Comment on above: Performed By: #### C MP, CBCA ####[facility] ([id number])[address] [place] [address] 30694 Calcium.ionized (Bld) [Moles /Vol]on 04-19-2024 [facility] 4.6 mg/dL Normal 4.5-5.3 [facility] Comment on above: Performed By: #### 1 994-3 ####[facility] ([id number])[address] [place] [address] 77734 CBC AND AUTO DIFFon 04-18-20 ABSOLUTE BASOPHIL 0.1 X10E9/L Normal 0.0-0.2 [facility] Comment on above: Performed By: #### C BCA, CMP ####[facility] ([id number])[address] [place] [address] 04725#### [id number] ####[facility] ([id number])[address] [place] [address] ABSOLUTE NEUTROPHIL 2.7 X10E9/L Normal 1.5-6.6 [facility] Comment on above: Performed By: #### C BCA, CMP ####[facility] ([id number])[address] [place] [address] 61855#### [id number] ####[facility] ([id number])[address] [address] Basophils/100 WBC (Bld) 0.9 % Normal [facility] Comment on above: Performed By: #### C BCA, CMP ####[facility] ([id number])[address] [place] [address] 98970#### [id number] ####[facility] ([id number])[address] [address] Eosinophils (Bld) [#/Vol] 0.2 10*3/uL Normal 0.0-0.4 [facility] Comment on above: Performed By: #### C BCA, CMP ####[facility] ([id number])[address] [place] [address] 51809#### [id number] ####[facility] ([id number])[address] [address] Eosinophils/100 WBC (Bld) 4.1 % Normal [facility] Comment on above: Performed By: #### C BCA, CMP ####[facility] ([id number])[address] [place] [address] 33052#### [id number] ####[facility] ([id number])[address] [address] Erythrocyte distribution width (RBC) [Ratio] 13.8 % Normal 11.5-15.0 [facility] Comment on above: Performed By: #### C BCA, CMP ####[facility] ([id number])[address] [place] [address] 57996#### [id number] ####[facility] ([id number])[address], [address] [address] Hematocrit (Bld) [Volume fraction] 41.2 % Normal 39-49 [facility] Comment on above: Performed By: #### C BCA, CMP ####[facility] ([id number])[address] [place] [address] 55808#### [id number] ####[facility] ([id number])[address] [address] Hemoglobin (Bld) [Mass/Vol] 14.1 g/dL Normal 13.0-17.0 [facility] Comment on above: Performed By: #### C BCA, CMP ####[facility] ([id number])[address] [place] [address] 80432#### [id number] ####[facility] ([id number])[address] [address] Lymphocytes (Bld) [#/Vol] 1.9 10*3/uL Normal 1.0-3.5 [facility] Comment on above: Performed By: #### C BCA, CMP ####[facility] ([id number])[address] [place] [address] 52269#### 46562-3 ####[facility] ([id number])[address] [address] Lymphocytes/100 WBC (Bld) 35.6 % Normal [facility] Comment on above: Performed By: #### C BCA, CMP ####[facility] ([id number])[address] [place] [address] 93539#### [id number] ####[facility] ([id number])[address] [address] MCH (RBC) [Entitic mass] 31.7 pg Normal 27-34 [facility] Comment on above: Performed By: #### C BCA, CMP ####[facility] ([id number])[address] [place] [address] 58614#### 46478-5 ####[facility] ([id number])[address] [address] MCHC (RBC) [Mass/Vol] 34.2 g/dL Normal 32-36 [facility] Comment on above: Performed By: #### C BCA, CMP ####[facility] ([id number])[address] [place] [address] 20736#### 54371-7 ####[facility] ([id number])[address] [address] [address] MCV (RBC) [Entitic vol] 93 fL Normal 80-100 [facility] Comment on above: Performed By: #### C BCA, CMP ####[facility] ([id number])[address] [place] [address] 58554#### [id number] ####[facility] ([id number])[address] [address] [address] Monocytes (Bld) [#/Vol] 0.5 10*3/uL Normal 0-0.9 [facility] Comment on above: Performed By: #### C BCA, CMP ####[facility] ([id number])[address] [place] [address] 63097#### [id number] ####[facility] ([id number])[address] [address] [address] Monocytes/100 WBC (Bld) 9.4 % Normal [facility] Comment on above: Performed By: #### C BCA, CMP ####[facility] ([id number])[address] [place] [address] 90865#### [id number] ####[facility] ([id number])[address] [address] Neutrophils/100 WBC (Bld) 50.0 % Normal [facility] Comment on above: Performed By: #### C BCA, CMP ####[facility] ([id number])[address] [place] [address] 94362#### [id number] ####[facility] ([id number])[address] [place] [address] Platelet mean volume (Bld) [Entitic vol] 8.2 fL Normal 7-12 [facility] Comment on above: Performed By: #### C BCA, CMP ####[facility] ([id number])[address] [place] [address] 51232#### [id number] ####[facility] ([id number])[address] [address] Platelets (Bld) [#/Vol] 159 10*3/uL Normal 150-450 [facility] Comment on above: Performed By: #### C BCA, CMP ####[facility] ([id number])[address] [place] [place] [address] 13401#### [id number] ####[facility] ([id number])[address] [place] [address] RBC COUNT 4.45 X10E12/L Normal 4.10-5.70 [facility] Comment on above: Performed By: #### C BCA, CMP ####[facility] ([id number])[address] [place] [place] [address] 78192#### [id number] ####[facility] ([id number])[address] [address] WBC (Bld) [#/Vol] 5.4 10*3/uL Normal 4.0-11.0 [facility] Comment on above: Performed By: #### C BCA, CMP ####[facility] ([id number])[address] [place] [place] [address] 52182#### [id number] ####[facility] ([id number])[address] [place] [address], [address] [address] COMPREHENSIVE METABOLIC PANE Jarett 04-18-2024 Albumin [Mass/Vol] 3.3 g/dL Normal 3.2-5.3 [facility] Comment on above: Performed By: #### C BCA, CMP ####[facility] ([id number])[address] [place] [address] 69015#### [id number] ####[facility] ([id number])[address] [place] [address] ALP [Catalytic activity/Vol] 67 U/L Normal 39-130 [facility] Comment on above: Performed By: #### C BCA, CMP ####[facility] ([id number])[address] [place] [address] 11619#### [id number] ####[facility] ([id number])[address] [facility] [address] [place] [address] ALT [Catalytic activity/Vol] 18 U/L Normal 0-40 [facility] Comment on above: Performed By: #### C BCA, CMP ####[facility] ([id number])[address] [place] [address]#### [id number] ####[facility] ([id number])[address], [place] [address] Anion gap [Moles/Vol] 7 mmol/L Normal 5-15 [facility] Comment on above: Performed By: #### C BCA, CMP ####[facility] ([id number])[address] [place] [place] [address] 99562#### [id number] ####[facility] ([id number])[address], [address], [place] [address] AST [Catalytic activity/Vol] 17 U/L Normal 0-41 [facility] Comment on above: Performed By: #### C BCA, CMP ####[facility] ([id number])[address] [place] [address] 79007#### [id number] ####[facility] ([id number])[address], [address], [place] [address] Bilirubin [Mass/Vol] 0.8 mg/dL Normal 0.3-1.2 [facility] Comment on above: Performed By: #### C BCA, CMP ####[facility] ([id number])[address] [place] [address] 08004#### [id number] ####[facility] ([id number])[address], [address], [place] [address] Calcium [Mass/Vol] 8.2 mg/dL Low 8.5-10.5 [facility] Comment on above: Performed By: #### C BCA, CMP ####[facility] ([id number])[address] [place] [address] 41144#### [id number] ####[facility] ([id number])[address], [address], [place] [address] Chloride [Moles/Vol] 108 mmol/L Normal 98-109 [facility] Comment on above: Performed By: #### C BCA, CMP ####[facility] ([id number])[address] [place] [address] 68819#### [id number] ####[facility] ([id number])[address] [address] CO2 [Moles/Vol] 23 mmol/L Normal 22-32 [facility] Comment on above: Performed By: #### C BCA, CMP ####[facility] ([id number])[address] [place] [address] 20117#### 27222-8 ####[facility] ([id number])[address], [address] [address] Creatinine [Mass/Vol] 0.75 mg/dL Normal 0.70-1.20 [facility] Comment on above: Result Comment: METH OD TRACEABLE TO IDMS STANDARD Performed By: #### C BCA, CMP ####[facility] ([id number])[address] [place] [address] 30439#### [id number] ####[facility] ([id number])[address], [address] [place] [address] eGFR (CKD-EPI) NON-RACE DEPENDENT >90 Normal >59 [facility] Comment on above: Result Comment: Reported eGFR is based on the CKD-EPI 2021 equation that does not use a race coefficient. Performed By: #### C BCA, CMP ####[facility] ([id number])[address] [place] [address] 36846#### [id number] ####[facility] ([id number])[address], [place] [address] Glucose [Mass/Vol] 110 mg/dL High 65-99 [facility] Comment on above: Performed By: #### C BCA, CMP ####[facility] ([id number])[address] [place] [address] 91740#### [id number] ####[facility] ([id number])[address], [address], [place] [address] Potassium [Moles/Vol] 3.5 mmol/L Normal 3.5-5.0 [facility] Comment on above: Performed By: #### C BCA, CMP ####[facility] ([id number])[address] [place] [address] 02703#### [id number] ####[facility] ([id number])[address], [address] [place] [address] Protein [Mass/Vol] 5.9 g/dL Low 6.0-8.0 [facility] Comment on above: Performed By: #### C BCA, CMP ####[facility] ([id number])[address] [place] [address] 94353#### 07201-8 ####[facility] ([id number])[address], [address], [place] [address] Sodium [Moles/Vol] 138 mmol/L Normal 134-146 [facility] Comment on above: Performed By: #### C BCA, CMP ####[facility] ([id number])[address] [place] [address] 85806#### [id number] ####[facility] ([id number])[address], [address] [place] [address] Urea nitrogen [Mass/Vol] 16 mg/dL Normal 5-27 [facility] Comment on above: Performed By: #### C BCA, CMP ####[facility] ([id number])[address] [place] [address] [place] [address]#### 70690-1 ####[facility] ([id number])[address] [place] [address], [address] [address] Lipid 1996 panelon 4 Cholesterol [Mass/Vol] 117 mg/dL Low 150-200 [facility] Comment on above: Performed By: #### Alessandro DE PAZ, CMP ####[facility] ([id number])[address] [place] [address] 56580#### [id number] ####[facility] ([id number])[address] [place] [address], [address] [address] Cholesterol in HDL [Mass/Vol] 28 mg/dL Low >39 [facility] Comment on above: Result Comment: HDL <40 mg/dL - High Risk HDL > or = 40mg/dL- Desirable HDL >60 mg/dL - Negative Risk Performed By: #### Alessandro DE PAZ, CMP ####[facility] ([id number])[address] [place] [address] 98741#### 45653-9 ####[facility] ([id number])[address] [place] [address], [address] [address] Cholesterol in LDL [Mass/Vol] 35 mg/dL Normal <130 [facility] Comment on above: Result Comment: LDL <100 mg/dL - Desirable LDL >160 mg/dL - High Risk Performed By: #### Alessandro BCA, CMP ####[facility] ([id number])[address] [place] [address] 88532#### 04874-3 ####[facility] ([id number])[address], [address] [address] Cholesterol in VLDL [Mass/Vol] 54 mg/dL High 0-30 [facility] Comment on above: Performed By: #### C BCA, CMP ####[facility] ([id number])[address] [place] [address] 25919#### 40771-9 ####[facility] ([id number])[address], [address] [place] [address] CHOLESTEROL:HDL 4.2 Normal 1.0-5.0 [facility] Comment on above: Performed By: #### C BCA, CMP ####[facility] ([id number])[address] [place] [address] 30270#### 47049-7 ####[facility] ([id number])[address], [address] [place] [address] Triglyceride [Mass/Vol] 270 mg/dL High 27-150 [facility] Comment on above: Performed By: #### C BCA, CMP ####[facility] ([id number])[address] [place] [address] 83708#### 11380-5 ####[facility] ([id number])[address], [address] [place] [address] POTASSIUMon 04-18-2024 Potassium [Moles/Vol] 4.1 mmol/L Normal 3.5-5.0 [facility] Comment on above: Performed By: #### 2 823-3 ####[facility] ([id number])[address] [place] [address] BASIC METABOLIC PANLon 04-17 Anion gap [Moles/Vol] 5 mmol/L Normal 5-15 [facility] Comment on above: Performed By: #### C BCA, BMP, PINR, 74672-8, 74705-2, 3016-3, 302-7 #### [facility] ([id number]) [address] [place] [address] #### HA1C #### [facility] ([id number]) [address], [address] [place] [address] Calcium [Mass/Vol] 8.2 mg/dL Low 8.5-10.5 [facility] Comment on above: Performed By: #### C BCA, BMP, PINR, 46606-7, 51540-5, 3016-3, 302-7 #### [facility] ([id number]) [address] [place] [address] 73250 #### HA1C #### [facility] ([id number]) [address], [address] [place] [address] Chloride [Moles/Vol] 105 mmol/L Normal 98-109 [facility] Comment on above: Performed By: #### C BCA, BMP, PINR, 93411-3, 16733-8, 3015-3, 7 #### [facility] ([id number]) [address] [place] [address] 57240 #### HA1C #### [facility] ([id number]) [address], [address] [place] [address] CO2 [Moles/Vol] 26 mmol/L Normal 22-32 [facility] Comment on above: Performed By: #### C BCA, BMP, PINR, 05019-2, 38241-5, 3016-3, 302-7 #### [facility] ([id number]) [address] [place] [address] 17679 #### HA1C #### [facility] ([id number]) [address], [address] [place] [address] Creatinine [Mass/Vol] 0.97 mg/dL Normal 0.70-1.20 [facility] Comment on above: Result Comment: METH OD TRACEABLE TO IDMS STANDARD Performed By: #### C BCA, BMP, PINR, 22395-7, 13345-3, 3016-3, 3024-7 #### [facility] ([id number]) [address] [place] [address] 84622 #### HA1C #### [facility] ([id number]) [address], [address] [place] [address] GFR/1.73 sq M.predicted among non-blacks MDRD (S/P/Bld) [Vol rate/Area] 78 mL/min/{1.73_m2} Normal >59 [facility] Comment on above: Result Comment: Reported eGFR is based on the CKD-EPI 2020 equation that does not use a race coefficient. Performed By: #### C BCA, BMP, PINR, 14514-5, 42045-3, 3016-3, 3024-7 #### [facility] ([id number]) [address] [place] [address] 45882 #### HA1C #### [facility] ([id number]) [address], [address] [place] [address] Glucose [Mass/Vol] 108 mg/dL High 65-99 [facility] Comment on above: Performed By: #### C BCA, BMP, PINR, 92930-3, 48430-7, 3016-3, 3024-7 #### [facility] ([id number]) [address] [place] [address]5280 #### HA1C #### [facility] ([id number]) [address], [address] [place] [address] Potassium [Moles/Vol] 3.7 mmol/L Normal 3.5-5.0 [facility] Comment on above: Performed By: #### C BCA, BMP, PINR, 68362-5, 03818-3, 3015-3, 7 #### [facility] ([id number]) [address] [place] [address] 08040 #### HA1C #### [facility] ([id number]) [address] [place] [address] Sodium [Moles/Vol] 136 mmol/L Normal 134-146 [facility] Comment on above: Performed By: #### C BCA, BMP, PINR, 98920-2, 91189-9, 3015-3, 7 #### [facility] ([id number]) [address] [place] [address] 30598 #### HA1C #### [facility] ([id number]) [address] [facility] [place] [address] Urea nitrogen [Mass/Vol] 23 mg/dL Normal 5-27 [facility] Comment on above: Performed By: #### C BCA, BMP, PINR, 71320-2, 05516-7, 3, 7 #### [facility] ([id number]) [address] [place] [address] 78605 #### HA1C #### [facility] ([id number]) [address] [facility] [place] [address] CBC AND AUTO DIFFon 04-17- 24 ABSOLUTE BASOPHIL 0.0 X10E9/L Normal 0.0-0.2 [facility] Comment on above: Performed By: #### C BCA, BMP, PINR, 59228-9, 26905-8, 3015-3, 7 #### [facility] ([id number]) [address] [place] [address]153 #### HA1C #### [facility] ([id number]) [address], [address] [place] [address] ABSOLUTE NEUTROPHIL 2.4 X10E9/L Normal 1.5-6.6 [facility] Comment on above: Performed By: #### C BCA, BMP, PINR, 87774-7, 58048-0, 6-3, 3023-7 #### [facility] ([id number]) [address] [place] [address] #### HA1C #### [facility] ([id number]) [address] [facility] [place] [address] Basophils/100 WBC (Bld) 0.8 % Normal [facility] Comment on above: Performed By: #### C BCA, BMP, PINR, 96820-7, 25831-7, 3015-3, 7 #### [facility] ([id number]) [address] [place] [address]30 #### HA1C #### [facility] ([id number]) [address] [facility] [place] [address] Eosinophils (Bld) [#/Vol] 0.2 10*3/uL Normal 0.0-0.4 [facility] Comment on above: Performed By: #### C BCA, BMP, PINR, 88093-2, 47602-4, 3015-3, 7 #### [facility] ([id number]) [address] [place] [address] 61848 #### HA1C #### [facility] ([id number]) [address], [address] [place] [address] Eosinophils/100 WBC (Bld) 4.1 % Normal [facility] Comment on above: Performed By: #### C BCA, BMP, PINR, 60252-2, 67109-0, 3016-3, 3024-7 #### [facility] ([id number]) [address] [place] [address] 74029 #### HA1C #### [facility] ([id number]) [address], [address] [place] [address] Erythrocyte distribution width (RBC) [Ratio] 13.6 % Normal 11.5-15.0 [facility] Comment on above: Performed By: #### C BCA, BMP, PINR, 46376-9, 83168-6, 3016-3, 3024-7 #### [facility] ([id number]) [address] [place] [address] 63656 #### HA1C #### [facility] ([id number]) [address], [address] [place] [address] Hematocrit (Bld) [Volume fraction] 41.0 % Normal 39-49 [facility] Comment on above: Performed By: #### C BCA, BMP, PINR, 22561-4, 75789-9, 3016-3, 302-7 #### [facility] ([id number]) [address] [place] [address] 98266 #### HA1C #### [facility] ([id number]) [address], [address] [place] [address] Hemoglobin (Bld) [Mass/Vol] 14.0 g/dL Normal 13.0-17.0 [facility] Comment on above: Performed By: #### C BCA, BMP, PINR, 02031-8, 24647-1, 3016-3, 3024-7 #### [facility] ([id number]) [address] [place] [address] 90864 #### HA1C #### [facility] ([id number]) [address], [address] [place] [address] Lymphocytes (Bld) [#/Vol] 2.3 10*3/uL Normal 1.0-3.5 [facility] Comment on above: Performed By: #### C BCA, BMP, PINR, 38032-3, 85096-0, 3016-3, 302-7 #### [facility] ([id number]) [address] [place] [address] 37893 #### HA1C #### [facility] ([id number]) [address], [address] [place] [address] Lymphocytes/100 WBC (Bld) 41.5 % Normal [facility] Comment on above: Performed By: #### C BCA, BMP, PINR, 63198-6, 95509-7, 3016-3, 3023-7 #### [facility] ([id number]) [address] [place] [address] 80570 #### HA1C #### [facility] ([id number]) [address], [address] [place] [address] MCH (RBC) [Entitic mass] 31.7 pg Normal 27-34 [facility] Comment on above: Performed By: #### C BCA, BMP, PINR, 05738-1, 80101-6, 6-3, 3023-7 #### [facility] ([id number]) [address] [place] [address] 52390 #### HA1C #### [facility] ([id number]) [address], [address] [place] [address] MCHC (RBC) [Mass/Vol] 34.1 g/dL Normal 32-36 [facility] Comment on above: Performed By: #### C BCA, BMP, PINR, 12330-3, 67883-6, 3016-3, 302-7 #### [facility] ([id number]) [address] [place] [address] 09579 #### HA1C #### [facility] ([id number]) [address], [address] [place] [address] MCV (RBC) [Entitic vol] 93 fL Normal 80-100 [facility] Comment on above: Performed By: #### C BCA, BMP, PINR, 70874-6, 28120-0, 3016-3, 3024-7 #### [facility] ([id number]) [address] [place] [address] 57194 #### HA1C #### [facility] ([id number]) [address], [address] [place] [address] Monocytes (Bld) [#/Vol] 0.5 10*3/uL Normal 0-0.9 [facility] Comment on above: Performed By: #### C BCA, BMP, PINR, 94450-3, 57517-5, 3016-3, 3024-7 #### [facility] ([id number]) [address] [place] [address] 41645 #### HA1C #### [facility] ([id number]) [address], [address] [place] [address] Monocytes/100 WBC (Bld) 9.9 % Normal [facility] Comment on above: Performed By: #### C BCA, BMP, PINR, 32101-4, 02881-0, 3016-3, 3024-7 #### [facility] ([id number]) [address] [place] [address] 00266 #### HA1C #### [facility] ([id number]) [address], [address] [place] [address] Neutrophils/100 WBC (Bld) 43.7 % Normal [facility] Comment on above: Performed By: #### C BCA, BMP, PINR, 00174-9, 19543-0, 3016-3, 3024-7 #### [facility] ([id number]) [address] [place] [address] 53802 #### HA1C #### [facility] ([id number]) [address], [address] [place] [address] Platelet mean volume (Bld) [Entitic vol] 8.2 fL Normal 7-12 [facility] Comment on above: Performed By: #### C BCA, BMP, PINR, 51497-8, 38628-1, 3016-3, 302-7 #### [facility] ([id number]) [address] [place] [address] 34265 #### HA1C #### [facility] ([id number]) [address], [address] [place] [address] Platelets (Bld) [#/Vol] 150 10*3/uL Normal 150-450 [facility] Comment on above: Performed By: #### C BCA, BMP, PINR, 93988-9, 93154-1, 3016-3, 302-7 #### [facility] ([id number]) [address] [place] [address] 82457 #### HA1C #### [facility] ([id number]) [address], [address] [place] [address] RBC COUNT 4.41 X10E12/L Normal 4.10-5.70 [facility] Comment on above: Performed By: #### C BCA, BMP, PINR, 68002-7, 13100-1, 3016-3, 302-7 #### [facility] ([id number]) [address] [place] [address] 05105 #### HA1C #### [facility] ([id number]) [address] [place] [address] WBC (Bld) [#/Vol] 5.4 10*3/uL Normal 4.0-11.0 [facility] Comment on above: Performed By: #### C BCA, BMP, PINR, 69121-0, 51557-3, 3016-3, 3024-7 #### [facility] ([id number]) [address] [place] [address], [place] [address] #### HA1C #### [facility] ([id number]) [address] [place] [address] CT CTA CAROTIDon 04-17-[address] CTA CAROTID History: Neuro deficit, acute, stroke suspected. Slurred speech Exam/Technique: CT angiogram performed following intravenous administration of 100 mL of Omnipaque 350. Coronal and sagittal and 3-D volume rendered maximum intensity projection images generated and reviewed under concurrent physician supervision. Automated exposure control utilized. The [place] Symptomatic Carotid Endarterectomy Trial (NASCET) method for [...] Armenta MD on 04/17/2024 9:08 AM Normal [facility] CT CTA HEADon 04-17-2024 CT CTA [...] posterior cerebral arteries. Mild narrowing right P2 [employer]. Unremarkable vertebral, basilar arteries. 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 Unremarkable appearance of the orbits, visualized suprahyoid neck, scalp, brain parenchyma [which is suboptimally assessed]. Impression: No acute large vessel occlusion the major alturas of Mtz arterial structures. If there is persistent concern for ischemia, recommend MR. All CT scans at this facility use dose modulation, iterative reconstruction, and/or weight based dosing when appropriate to reduce radiation dose to as low as reasonably achievable. Finalized by Lázaro Solomon MD on 04/17/2024 9:00 AM Normal [facility] FREE T4on 04-17-2024 Free T4 [Mass/Vol] 0.91 ng/dL Normal 0.61-1.60 [facility] Comment on above: Performed By: #### C BCA, BMP, PINR, 05212-3, 77137-4, 3016-3, 3024-7 #### [facility] ([id number]) [address] [place] [address], [place] [address] #### HA1C #### [facility] ([id number]) [address] [facility] [place] [address] Glucose Glucometer (BldC) [M ass/Vol]on 04-17-2024 Glucose [Mass/Vol] 94 mg/dL Normal 65-99 [facility] HGB A1C (GLYCO-HGB)on 2023 Glucose [Mass/Vol] 134 mg/dL Normal [facility] Comment on above: Performed By: #### C BCA, BMP, PINR, 36431-6, 79508-0, 3016-3, 3024-7 ####[facility] ([id number])[address] [place] [address] 98285#### HA1C ####[facility] ([id number])[facility], [address] [place] [address] HbA1c (Bld) [Mass fraction] 6.3 % High 4.4-5.6 [facility] Comment on above: Result Comment: NOTE ADA Guidelines Result HgbA1c Normal : less than 5.7 % Prediabetes : 5.7 % to 6.4 % Diabetes : > 6.4 % Use with caution in patients with abnormal hemoglobin variants as the half-life of red blood cells and in vivo glycation rates are affected. Performed By: #### C BCA, BMP, PINR, 03061-8, 89798-3, 3016-3, 3024-7 ####[facility] ([id number])[address] [place] [place] [address]#### HA1C ####[facility] ([id number])[address] [facility], [address] [place] [address]67 Lipid 1996 panelon 4 Cholesterol [Mass/Vol] 121 mg/dL Low 150-200 [facility] Comment on above: Performed By: #### 8 9579-7 ####[facility] ([id number])[address] [place] [address] 85161#### 00402-2, 82329-7, 72088-1 ####[facility] ([id number])[address], [address] [place] [address]29 Cholesterol in HDL [Mass/Vol] 34 mg/dL Low >39 [facility] Comment on above: Result Comment: HDL <40 mg/dL - High Risk HDL > or = 40mg/dL- Desirable HDL >60 mg/dL - Negative Risk Performed By: #### 8 9579-7 ####[facility] ([id number])[address] [place] [address]366#### 08538-3, 89448-8, 70663-7 ####[facility] ([id number])[address], [address] [place] [address] 09432 Cholesterol in LDL [Mass/Vol] 43 mg/dL Normal <130 [facility] Comment on above: Result Comment: LDL <100 mg/dL - Desirable LDL >160 mg/dL - High Risk Performed By: #### 8 9579-7 ####[facility] ([id number])[address] [place] [place] [address] 13909#### 55969-9, 73279-4, 40495-7 ####[facility] ([id number])[address], [address] [place] [address] 97999 Cholesterol in VLDL [Mass/Vol] 44 mg/dL High 0-30 [facility] Comment on above: Performed By: #### 8 9579-7 ####[facility] ([id number])[address] [place] [address]484#### 47135-8, 04459-5, 18280-4 ####[facility] ([id number])[address], [address] [place] [address]80 CHOLESTEROL:HDL 3.6 Normal 1.0-5.0 [facility] Comment on above: Performed By: #### 8 9579-7 ####[facility] ([id number])[address] [place] [address] 61527#### 30743-8, 59252-8, 20877-1 ####[facility] ([id number])[address], [address] [place] [address] 03970 Triglyceride [Mass/Vol] 218 mg/dL High 27-150 [facility] Comment on above: Performed By: #### 8 9579-7 ####[facility] ([id number])[address] [place] [address] 42491#### 74726-0, 08153-2, 99519-0 ####[facility] ([id number])[address], [address] [place] [address]75 MR BRAIN WO CONTon 4 MR BRAIN [...] midline shift or extra axial fluid collection. Yicu-[id number]-jzogzsjh central greater than peripheral volume loss. Partially [...] Chi Hendrix on 04/17/2024 12:22 PM Normal [facility] Nuclear Ab IA Ql (S)on 04-17 [place] Screen w/reflex Negative Normal NEG [facility] Comment on above: Result Comment: Testing performed using multiplex flow immunoassay. Eleven different antigens associated with systemic autoimmune diseases (dsDNA,Sm,Sm/SCRIPT EDITOR,SCRIPT EDITOR,Chromatin, SSA,SSB,Vesna-1,Scl70,Ribo P,Centromere B) are included in this screening test. Performed By: #### 8 9579-7 ####[facility] ([id number])[address] [place] [place] [address]#### 77712-2, 90894-1, 84293-2 ####[facility] ([id number])[address] [facility], [address] [place] [address] PROTIME AND INRon 04-17-2024 INR Coag (PPP) [Relative time] 1.2 {INR} High 0.8-1.1 [facility] Comment on above: Performed By: #### C BCA, BMP, PINR, 67877-5, 44039-1, 3016-3, 3024-7 #### [facility] ([id number]) [address] [place] [address] #### HA1C #### [facility] ([id number]) [address] [facility], [address] [place] [address] PT Coag (PPP) [Time] 13.6 s High 9.8-13.2 [facility] Comment on above: Result Comment: NEW REFERENCE RANGE Performed By: #### C BCA, BMP, PINR, 00219-4, 27832-6, 3016-3, 3024-7 #### [facility] ([id number]) [address] [place] [address] #### HA1C #### [facility] ([id number]) [address], [address] [place] [address] Rheumatoid factor Nephelomet ry Qn (S)on 04-17-2024 RHEUMATOID FACTOR 36 IU/mL High <20 [facility] Comment on above: Performed By: #### 8 9579-7 ####[facility] ([id number])[address] [place] [address]#### 42980-1, 69794-6, 49947-8 ####[facility] ([id number])[address] [facility], [address] [place] [address] TSH Qnon 04-17-2024 TSH 1.23 uIU/mL Normal 0.49-4.67 [facility] Comment on above: Performed By: #### C BCA, BMP, PINR, 80188-9, 32809-6, 3016-3, 3024-7 #### [facility] ([id number]) [address] [place] [address] #### HA1C #### [facility] ([id number]) [address] [facility], [address] [place] [address] Troponin I.cardiac High sens itivity method [Mass/Vol]on 04-17-2024 1 HOUR TROP I, HIGH SENSITIVITY 8 ng/L Normal <21 [facility] Comment on above: Performed By: #### 8 9579-7 ####[facility] ([id number])[address] [place] [address]#### 72231-1, 54153-0, 96132-6 ####[facility] ([id number])[address] [facility], [address] [place] [address] TROPONIN I, HIGH SENSITIVITY 7 ng/L Normal <21 [facility] Comment on above: Performed By: #### C BCA, BMP, PINR, 85557-2, 30762-6, 3016-3, 3024-7 #### [facility] ([id number]) [address] [place] [address] #### HA1C #### [facility] ([id number]) [address] [facility], [address] [place] [address] aPTT Coag (PPP) [Time]on aPTT Coag (Bld) [Time] 29 s Normal 26-37 [facility] Comment on above: Result Comment: NEW REFERENCE RANGE Performed By: #### C BCA, BMP, PINR, 45590-3, 88951-9, 3016-3, 3024-7 #### [facility] ([id number]) [address] [place] [address] #### HA1C #### [facility] ([id number]) [address] [facility], [address] [place] [address] Urology Office/Clinic Noteon 03-20-2024 Urology Office/Clinic Note Urology Office/Clinic Note Chief Complaint ER f/u *Urinary Retention HPI Staff PRW pt Last seen in our office by INEZ 02/11/24 DX: BPH, Urethral Stricture, Gross Hematuria & UTI PVR at that time 108ml Here today to follow up to [facility] ER 03/11/24 CC: Urinary Retention PVR [...] (cc): 02/11/24 - 108 Pt presented to [facility] ER 03/11/24 with UR. PVR >230 [...] Elec tronically Signed By: KIM Lino APRN, Lazaar Echavarria\.br\Date and Time Signed: 03/20/24 08:02 EDT\.br\Electronically [...] solution) fluticasone nasal (fluticasone Nasal 0.05 mg/inh [place]) hyoscyamine (hyoscyamine 0.125 mg sublingual Tab) icosapent [...] APRN, [place] X Where: [facility] [address] [place] [address] [place] [address]- You Need to Schedule the Following Appointments [...] fluticasone nasal (fluticasone Nasal 0.05 mg/ inh [place]) instill 1 spray into each nostril once [...] ret (more content not included)... Normal [place] [facility] Coding Summary.on 02-19-2024 Coding Summary. RQKRZpqu70OHz5xHy+PG hlYWQ+QP1JDDJbW12onU OokT1aH0HXZLgGWwlgVX KCBTvJWlAdkuJwFE2mkY NjZXJu IC8+BW7rFFPeMnzuvCTm u3N7jTV0W16mbj5uJNel tCA1UMMbUjUkqqsyd6kl cWv4VIcaHlvuMxJz AVYeiI27REQ7vB89Rt80 jWUwkHYwv8kyuJv6EmKx EFPmVZF1fRfkLPcjd6Vq GRKrP57bdMNnw4P5 IGNvbGxhcHNlOyBlbXB0 oY5dDBiitivvg6orwguj Igk5yg06xJJvf0D2ePD6 M7IdihZ8YOPcaZQf SixvjBOReA4elgtyu7sk tkunUnNqRZKyRPu5WFi3 FVZewGruMtLtUD95AZL7 NANsraDbY9PnCOOz oKjfKcF8c9P4Xo4RH4NP BhgnP7HBLISWROwizKE+ GV31ax85L1AgEvvpPso7 BWElFGG7xWL5xX2q BLDfJWcoh2Q2aAK5L6Nr qwQdlp0qy7dbCDWgFHne N22qkHNuv1F1OZOwtJF7 ITNnaYprEbIahA67 Oyc+JOPadGqjz3ZhSbde f7ijm6ckfFp6XiomQWPa nxGfxSjfQQC4z8PeWr6v HBNpiPK9nAI6uO5c VbJdUpX6MRzhW476OxNu dBQiLapnP23tI6DkcSS+ UEMaKrn8LWDmiYdwAX8g F3AoRBPkcbvqmANv mAkhUL2gHQRnmekqZMGl qL9jVSUvB3h1RdNpVvM4 UJjaB4UrVTZhvfrmIe87 qY7uLiWqWtB6DLrq L2GxcmM9IQVjkVUcEEot PPX7P71hm1Y1WRLbZZYb XIC5pMX0bH5ukYikmmss bGVmdDsgdmVydGlj GDelJPweA983VJAbtZsz PkNvZGluZyBEYXRlOiAg MDYvMjYvMjAyNDwvdGQ+ EYLeVVE5sXiuJMKd dKDuPRycZi2lmAtvxWma DZ8lEGHoikyjDDPfgA7y CKNybXKusDaiKH6kQFFd lapuv372FyByIVE0 QWVzqOOsG8ByfL3qKxUb EWKoWNTcN2HebUWcJRan J558NMlnVpW9MNFiofMt E7FbRDTnmAldXaQ8 l0C8Vj6Ix6CngifoJ6Cy rTHyYsZnZkyeJJk9G5Qh PjwvdHI+ID94FQQsLG71 WGo0HPL1cLwlPMyn AZNaV7LtlX9eTdOaWLWg ZGRkOyc+PHRhYmxlIHdp ZHRoPScxMDAlJyBzdHls KH2yUw4dNZEsANFm qUqgeALoCeYqe0gaVNYa RGhkLF0jrXwqA0GejYS7 BDAyy1i9Wk00M28aY6Aa dXA+GHVygHH2dZU2 bK5lQyQiHjL1LLttU159 QuOafWXuHpnby5qml0vu sDi6JdF4OXPlazTurZsi SXP2c9RjQt23J42v IHdpZHRoPSIxNSUiIHZh iNvwif9swK5fWb1+PGNv fWG5qPB2eP1dGrRkPmE9 THjxI976AiGsnVWq Fmrbs0fhj1tvgLy0BnVy IIUbmaKquMioOYP2q0Pe Xk79Y2WxpPhzq0DaBbp2 uu13vTEkf9W0aXZ9 J0FxUGQvwozxlTKmeJkn RL6vLEVernfvJIJyyL5l FZNzM4c8MxAmEuT6DHkx U2FgfyL1BCVfqWWs OMDmxGBWqO7hojkkt5xl uibwCuCdZVUfXYa1AWw8 YLLmlQbpFsVsISH0KjM4 RXQ1fMGacB4zkIxo hctnxZ6bXry+TQS6uCHh lXBEOM1nYcbmdDE+PHRk YJJ1sDhaXZqaWBEhyY4q XWOdL8o8AnOaToZ2 MEriX8LfbaH9RUQnyNNf EIVijTOOmO9skufuu2re ppmuZfSwCPYuWHs2UXa7 LWFsaWduOiBsZWZ0 IpR4BKV5sQUpuX0sqLpi rzttsT6rThi+QmlydGgg IDN5KSr3Q9FzOkw1DCMs qLpcUQ0luIGbNQyk Qg8ezMqioFjtYX0fHCIs pdsaz846IsDsr3mjSXFs eAKkSPyvAFH8K53dz9P3 MAWgYYPsDPN5wTG6 kQ1mlTaeqeeeiAGfaMov qsFmbFnuOWyfZLacB055 BWEroOimOmRqIYe0S7Ph Psw1GUBrlEmaSG8v jLJwXDdpTj4ocDxuuLda SH9xRSYsfgfot466BoPk q5wyUELfsGTnLDkeKDS7 S10sz5B0OLHdWKHo SMN0wVN5mK0thYpeudzo bGVmdDsgdmVydGljYWwt FVfsD522ZJAsaSzeFiIv pCy6E7JdHev8PALz qCqxQW2etGXaJThhLj5u gHppjFebEU7wXZFwtqgp m234BpIst3bwIRQkfXYx ACguCBS5T95ke1Z2 BSZcIYZxVEL9iFS0dN7j bGlnbjogbGVmdDsgdmVy bQebBZynDEoaA769HPYk cDsnPlBhdGllbnQg NRrjKMk5Y2QqAddpqZX+ HR08WRNoZW89oIWcuPMg n8gwvCd9AsExSJMoTVQ9 tIeuDVemd3TuKMQx G05jsHRnu7F4JTMnkQuw jYJjYbSufEC1iM2hFUja rrckj7bvafdkImbuj7hr ij12oH40A23iYFdn ZHRoPSIzMCUiIHZhbGln mt7gxW7lCg1+PGNvbCB3 nIA0bL6nNYCfImT0DPja I137XoCfvYTuLhqv z2ysu1hafJs4GrU0OHGr rhHgdJluMCR8m1QkDb75 N56aIRjkCQQyKVGrWDBv NCSquCxejj8waP5o Ii8+GFLzrTK1jEG0cT9d UiZwWfX5SHawZ966AlOy yFAeKidcF68uB8QwcOI+ XQQyGwm2GJEusXst UM7zrRZfGQbxLl2tBUM7 QjRyDwYuNPaiS3ElWGQs ypdyoxtceVG3BEHmFCQk kG51Ei3eeKxxJETf sFYMcN8odbnsb7gbmbfp LcUdWGOtIOe7OZz5RPXh vPlsRhIpEZF9JmY2XBC1 dZHsxV8muBqyykol mZ4rK1VeZECluiqmAk32 yR8pRdMjTwA5NOzrHnx+ N3VLUS2UROHQQ150P4Cq Hii4TPBujEneRV9j mQScHMrvPl1ixFboeBrv YK1eWSRcdcpwREEogK6h VPYptJChkCznBL0lLVTc yvitb537UyWbLFE1 BKBrwDBfF1SqpD5xQzKo FXPnTNPkJ7UgqZXuEHvp G131QNjwAdN2JGRsnqUq N2WoABVrbIbxYmQ2 j5C0Wa4tVH6kSB4zYWGt EF75RZ80fJPjg4J4bUE1 P0AaWMSmihaqkhifuXN0 UTDhPDKbmR26cNLd HPvkYh3li4U6s049FIXx CJKxyU17Wd9zcEhzTWSj cSDUcF6jzrvwi5cepgrr IiCmZEQcSUm8LJk3 SUNhvYcgJjGeWSV9DmZ7 CRD1uZTkyX0keOojzdng rR0iTsj+ODEgWWVhcnM8 P5QvIma8RRLwpRee BK0dcACfHEtzJb8meUtm zPzoRF9zRCPrdhswOYKx jQ5pVVNmuQOpwAjcHR3j ZZIhoeybm892JlBg DQC4UYXhvCJyL9WhgF9d ZtJtHNOvVMYeU2CamMCq OLwfU225FWomQxF9VAJo kmBiR3VzBXQjiRqw PzT0m7O2Nn3JSBuyNJ59 TR87iXRgm3T9tXK7U7Oh CUAodxpopyvdzAG3BIUi RFObtX03zVCpASli Gm3pj2S6c497XETfIVWp uP54Hf2qkHvlQTYzbFCS wI7kgbfck4xttvzlFcRj OGWlKNl5ZGa7NOEt xEpeJlSfTPZ5ObA2YDM1 eFDufX4ehYfadfahwI6n Oyc+LNSiUVAgo0Qkj8Wb CI06KA05N1XePhaz dGFibGU+PHRhYmxlIHdp ZHRoPScxMDAlJyBzdHls ZW6xLs2rJGQiSLYjhDkn nIOgJaPxd2orUXTy JYbfLR2zuAkaU2DsbFI4 PTNil7j2Iq10K32bO7Ce dXA+QGIouET0aIG9dJ7i SeHbWcO3WHzmV388 IaQipLNcSfeqj6vpv6zj vPt7ZvBaUAHmajSioLpc ZNI2x4UpEg11C81lMGui ZHRoPSIyMCUiIHZh yEeeha1zmF3lCc8+PGNv dIA3tBH0fB8sUbDfGoK9 EJrlV745AqKjkILvFmot L06zC3TldNW+PHRy Mvr7RCPvaYjbWQ1ubIDi MPddBp9sJTJ6YxMwBrZm WHgfC9VdPOAqkxxvihjd cGA7LIXcYHGfeG19 Ex1voTgwLn9iVVGoSGZ0 PSMnaRMaH3UqzM6nBwTt KQAeAATeS4KgoSOiYZoi R313XAucEwT3WVQe swGrI2HiGMJhcZgfUwD2 i7V6Ey4UgVqlyHGhKG8q WkAhXTq3T4PbVmi1SDWn uKchQY8pzXUvTClt Ch0ufXmlpTjtFY1vXIOt oceer227VkEax6wdNXEg tRVqWDdvFXD0F28zs8I8 YCCfIWJwOEB8aGB3 iY5rwVsglywaiWZmuJvk foVixDtwOXndEMclL458 YVHfoRxnFwWYWuq8K4Tr Ner1VHKmkVxpEL8g bACnLXccEo6ucZgnuLot LS9wMYHbbubfn128CcRz h1jaPPZedYPjKBtcRFQ2 T56eh5Z5XYYuUYJn NFU5vFI0zJ9suLqdieuv bGVmdDsgdmVydGljYWwt EYiuY858APAutMerWv2T Jnq7D6YsFzl7GTAg tPziJL7mtEGpAKdmRu2w dFnaqCzmEM1iSTQvirwq p107BsYsl5ulSIGqnZRq ANljVHO7K59qi2S5 YDJaASYtZDO4cAG5mL6b bGlnbjogbGVmdDsgdmVy hQzfUCpiIDwmD635OGFe cDsnPlBheWVyOjwv dGQ+FW87wh27T7HqOqvi Qnr3PZAdSTA5oVM4pB7w WDNrQBbpm3B4gWL5C0Ds oxCbxo2uh6oxNTAy SLogR39uaPJii (more content not included)... Normal [facility] C Urineon 02-13-2024 Bacteria identified Cx Nom (U) Microbiology PROCEDURE: Urine Culture [R1] SOURCE: U Random BODY SITE: COLLECTED DATE/TIME: 02/11/2024 10:06 EDT RECEIVED DATE/TIME: 02/11/2024 18:24 EDT START DATE/TIME: 02/11/2024 18:24 EDT FREE TEXT SOURCE: RENA Lino APRN-C, Zoie FOX, WATER SANDER-C, Lazara X Lazara X FINAL REPORTS Final [...] R1: This test was performed at: [facility], [address] [place] [address], [facility]- , , [facility] Comment on above: Performed By: #### 2 [id number] #### [facility] [address] [place] [address] Screenson 02-12-2024 Screens [id number] 7#[id number] [facility] Ambulatory Visit Summaryon 0 02-11-2024 Ambulatory [...] [facility] [address] , [place] [address] [phone] Medications What How Much When Instructions Unchanged [...] for choosing us for your care. Normal [facility] Patient Educationon 02-11-20 Patient Education [...] these instructions at home: Medicines ? Take mvzb-lbc-pkquyav and prescription medicines only as told by [...] the blood stops without treatment. ? Take pbkq-oti-wjzdumo and prescription medicines only as told by your health care provider. ? Drink enough fluid to keep your urine pale yellow. This information is not intended to replace advice given to you by your health care provider. Make sure you discuss any questions you have with your health care provider. Document Revised: 04/12/2021 Document Reviewed: 04/12/2021 [employer] Patient Education ? 2022 Doctor kinetic. Benign Prostatic Hyperplasia Benign prostatic hyperplasia (BPH) [...] with voice recognition artificial intelligence software, specifically [employer], [employer] and or [employer]. Substitutions may have occurred due to the [...] Urnls Dip Stick Auto w/o Microscopy POC 56723 2. 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 Moderate to severe degenerative changes. Unremarkable soft tissues. IMPRESSION: Moderate to severe degenerative changes. Electronically authenticated by: CALVIN BARNES Date: 2023-01-23 13:29 Normal [facility] INSULINon 09-25-2022 Insulin 6.0 uIU/mL Normal 2.6-24.9 [facility] Comment on above: Performed By: #### I NSULIN #### [facility] [address] [place] [address] Dr. Wally Zapien BNPon 09-24-2022 Natriuretic peptide B (Bld) [Mass/Vol] 110.0 pg/mL Normal <=1,800.0 [facility] Comment on above: Performed By: #### U RCX #### [facility] [address] [place] [address] Dr. Wally Zapien CBC AUTO DIFFon 09-24-2022 BASO # 0.0 103/ul Normal 0.0-0.1 [facility] Comment on above: Performed By: #### C BC #### [facility] [address] [place] [address] Dr. Wally Zapien Basophils/100 WBC (Bld) 1.0 % Normal 0.2-2.0 [facility] Comment on above: Performed By: #### C BC #### [facility] [address] [place] [address] Dr. Wally Zapien EO # 0.2 103/ul Normal 0.0-0.7 [facility] Comment on above: Performed By: #### C BC #### [facility] [address] [place] [address] Dr. Wally Zapien Eosinophils/100 WBC (Bld) 4.2 % Normal 0.9-7.0 [facility] Comment on above: Performed By: #### C BC #### [facility] [address] [place] [address] Dr. Wally Zapien Erythrocyte distribution width (RBC) [Ratio] 12.5 % Normal 11.0-15.0 [facility] Comment on above: Performed By: #### C BC #### [facility] [address] [place] [address] Dr. Wally Zapien Hematocrit (Bld) [Volume fraction] 43.7 % Normal 42.0-54.0 [facility] Comment on above: Performed By: #### C BC #### [facility] [address] [place] [address] Dr. Wally Zapien Hemoglobin (Bld) [Mass/Vol] 15.4 g/dL Normal 14.0-18.0 [facility] Comment on above: Performed By: #### C BC #### [facility] [address] [place] [address] Dr. Wally Zapien IG # 0.02 10e3/ul Normal 0.00-0.03 [facility] Comment on above: Performed By: #### C BC #### [facility] [address] [place] [address] Dr. Wally Zapien IG % 0.5 % Normal 0.0-0.5 [facility] Comment on above: Performed By: #### C BC #### [facility] [address] [place] [address] Dr. Wally Zapien LYMPH # 1.7 103/ul Normal 1.2-3.8 [facility] Comment on above: Performed By: #### C BC #### [facility] [address] [place] [address] Dr. Wally Zapien Lymphocytes/100 WBC (Bld) 42.6 % Normal 20.5-60.0 [facility] Comment on above: Performed By: #### C BC #### [facility] [address] [place] [address] Dr. Wally Zapien MANUAL DIFF REQ NO Normal [facility] Comment on above: Performed By: #### C BC #### [facility] [address] [place] [address] Dr. Wally Zapien MCH (RBC) [Entitic mass] 31.6 pg Normal 25.9-34.0 [facility] Comment on above: Performed By: #### C BC #### [facility] [address] [place] [address] Dr. Wally Zapien MCHC (RBC) [Mass/Vol] 35.2 g/dL Normal 29.9-35.2 [facility] Comment on above: Performed By: #### C BC #### [facility] [address] [place] [address] Dr. Wally Zapien MCV (RBC) [Entitic vol] 89.5 fL Normal 80.0-94.0 [facility] Comment on above: Performed By: #### C BC #### [facility] [address] [place] [address] Dr. Wally Zapien MONO # 0.4 103/ul Normal 0.3-0.8 [facility] Comment on above: Performed By: #### C BC #### [facility] [address] [place] [address] Dr. Wally Zapien Monocytes/100 WBC (Bld) 9.2 % Normal 1.7-12.0 [facility] Comment on above: Performed By: #### C BC #### [facility] [address] [place] [address] Dr. Wally Zapien NEUT # 1.7 103/ul Normal 1.4-6.5 [facility] Comment on above: Performed By: #### C BC #### [facility] [address] [place] [address] Dr. Wally Zapien Neutrophils/100 WBC (Bld) 42.5 % Critically low 43.0-75.0 [facility] Comment on above: Performed By: #### C BC #### [facility] [address] [place] [address] Dr. Wally Zapien Platelet mean volume (Bld) [Entitic vol] 9.9 fL Normal 9.5-13.5 [facility] Comment on above: Performed By: #### C BC #### [facility] [address] [place] [address] Dr. Wally Zapien PLT 149 103/ul Critically low 150-450 [facility] Comment on above: Performed By: #### C BC #### [facility] [address] [place] [address] Dr. Wally Zapien RBC 4.88 106/ul Normal 4.70-6.10 [facility] Comment on above: Performed By: #### C BC #### [facility] [address] [place] [address] Dr. Wally Zapien WBC 4.0 103/ul Normal 4.0-11.0 [facility] Comment on above: Performed By: #### C BC #### [facility] [address] [place] [address] Dr. Wally Zapien CULTURE URINEon 09-24-2022 CULTURE URINE Culture Observations: LIGHT GROWTH OF MIXED SKIN GENNA. NO POTENTIAL PATHOGENS SEEN. Normal [facility] Comment on above: Performed By: #### U RCX #### [facility] [address] [place] [address] Dr. Wally Zaipen FREE THYROXINE INDEX T7on FTI 2.52 Normal 1.30-4.50 [facility] Comment on above: Performed By: #### U RCX #### [facility] [address] [place] [address] Dr. Wally Zapien T3U 36.0 % Normal 33.0-40.0 [facility] Comment on above: Performed By: #### U RCX #### [facility] [address] [place] [address] Dr. Wally Zapien T4 [Mass/Vol] 7.00 ug/dL Normal 4.50-12.10 [facility] Comment on above: Performed By: #### U RCX #### [facility] [address] [address] [address] Wally Zapien GLYCOHEMOGLOBIN A1Con 2022 ADA RECOMMENDATION SEE BELOW Normal [facility] Comment on above: Result Comment: ADA RECOMMENDED LIMIT 4.0 - 6.0 ADA THERAPEUTIC TARGET < 7.0 ACTION SUGGESTED > 7.0 Performed By: #### A 1C #### [facility] [address] [address] [address] Wally Zapien Glucose [Mass/Vol] 123 mg/dL Normal [facility] Comment on above: Performed By: #### A 1C #### [facility] [address] [place] [address] Dr. Wally Zapien HbA1c (Bld) [Mass fraction] 5.9 % Normal 4.5-6.2 [facility] Comment on above: Performed By: #### A 1C #### [facility] [address] [place] [address] Dr. Wally Zapien LIPID PROFILEon 09-24-2022 CHOL-HDL RATIO NORM SEE BELOW Normal [facility] Comment on above: Result Comment: 3.3 - 4.4 LOW RISK 4.4 - 7.1 AVERAGE RISK 7.1 - 11.0 MODERATE RISK >11.0 HIGH RISK Performed By: #### U RCX #### [facility] [address] [address] [address] Wally Zapien Cholesterol [Mass/Vol] 117 mg/dL Normal <=200 [facility] Comment on above: Performed By: #### U RCX #### [facility] [address] [address] [address] Wally Zapien Cholesterol in HDL [Mass/Vol] 38 mg/dL Critically low 40-60 [facility] Comment on above: Performed By: #### U RCX #### [facility] [address] [address] [address] Wally Zapien Cholesterol in LDL [Mass/Vol] 32.6 mg/dL Normal [facility] Comment on above: Performed By: #### U RCX #### [facility] [address] [address] [address] Wally Zapien Cholesterol.total/Ch olesterol in HDL [Mass ratio] 3.1 {ratio} Normal [facility] Comment on above: Performed By: #### U RCX #### [facility] [address] [address] [address] Wally Zapien HDL NORMAL > or = 60 mg/dl - LOW CARDIOVASCULAR RISK <40 mg/dl - HIGH CARDIOVASCULAR RISK Normal [facility] Comment on above: Performed By: #### U RCX #### [facility] [address] [place] [address] Dr. Wally Zapine LDL CALC NORMAL SEE BELOW Normal [facility] Comment on above: Result Comment: <100 mg/dl OPTIMAL 100 - 129 mg/dl NEAR OR ABOVE OPTIMAL 130 - 159 mg/dl BORDERLINE HIGH 160 - 189 mg/dl HIGH >190 mg/dl VERY HIGH Performed By: #### U RCX #### [facility] [address] [place] [address] Dr. Wally Zapien Triglyceride [Mass/Vol] 232 mg/dL Critically high <=150 [facility] Comment on above: Performed By: #### U RCX #### [facility] [address] [place] [address] Dr. Wally Zapien VLDL CALC 46.4 mg/dL Normal [facility] Comment on above: Performed By: #### U RCX #### [facility] [address] [place] [address] Dr. Wally Zapien PROF 14(COMP METB)on 023 Albumin [Mass/Vol] 3.8 g/dL Normal 3.4-5.0 [facility] Comment on above: Performed By: #### B CHICKEN CUTTER, T7, LIPID, TSH, CMP, URIC #### [facility] [address] [place] [address] Dr. Wally Zapien Albumin/Globulin [Mass ratio] 1.2 {ratio} Normal [facility] Comment on above: Performed By: #### B CHICKEN CUTTER, T7, LIPID, TSH, CMP, URIC #### [facility] [address] [place] [address] Dr. Wally Zapien ALP [Catalytic activity/Vol] 80 U/L Normal 46-116 [facility] Comment on above: Performed By: #### B CHICKEN CUTTER, T7, LIPID, TSH, CMP, URIC #### [facility] [address] [place] [address] Dr. Wally Zapien ALT [Catalytic activity/Vol] 34 U/L Normal 16-63 [facility] Comment on above: Performed By: #### B CHICKEN CUTTER, T7, LIPID, TSH, CMP, URIC #### [facility] [address] [place] [address] Dr. Wally Zapien Anion gap [Moles/Vol] 11.3 mmol/L Normal [facility] Comment on above: Performed By: #### B CHICKEN CUTTER, T7, LIPID, TSH, CMP, URIC #### [facility] Laboratory [address] [place] [address] Dr. Wally Zapien AST [Catalytic activity/Vol] 24 U/L Normal 15-37 [facility] Comment on above: Performed By: #### B CHICKEN CUTTER, T7, LIPID, TSH, CMP, URIC #### [facility] Laboratory [address] [place] [address] Dr. Wally Zapien Bilirubin [Mass/Vol] 1.0 mg/dL Normal 0.2-1.0 [facility] Comment on above: Performed By: #### B CHICKEN CUTTER, T7, LIPID, TSH, CMP, URIC #### [facility] Laboratory [address] [place] [address] Dr. Wally Zapien Calcium [Mass/Vol] 8.5 mg/dL Normal 8.5-10.1 [facility] Comment on above: Performed By: #### B CHICKEN CUTTER, T7, LIPID, TSH, CMP, URIC #### [facility] Laboratory [address] [place] [address] Dr. Wally Zapien Chloride [Moles/Vol] 105 mmol/L Normal 98-107 [facility] Comment on above: Performed By: #### B CHICKEN CUTTER, T7, LIPID, TSH, CMP, URIC #### [facility] Laboratory [address] [place] [address] Dr. Wally Zapien CO2 [Moles/Vol] 28.6 mmol/L Normal 21.0-32.0 [facility] Comment on above: Performed By: #### B CHICKEN CUTTER, T7, LIPID, TSH, CMP, URIC #### [facility] [address] [place] [address] Dr. Wally Zapien Creatinine [Mass/Vol] 0.74 mg/dL Normal 0.70-1.30 [facility] Comment on above: Performed By: #### B CHICKEN CUTTER, T7, LIPID, TSH, CMP, URIC #### [facility] [address] [place] [address] Dr. Wally Zapien EGFR-AF GAMBIAN >60 Normal >=60 [facility] Comment on above: Performed By: #### B CHICKEN CUTTER, T7, LIPID, TSH, CMP, URIC #### [facility] Laboratory [address] [place] [address] Dr. Wally Zapien EGFR-NON AF GAMBIAN >60 Normal >=60 [facility] Comment on above: Performed By: #### B CHICKEN CUTTER, T7, LIPID, TSH, CMP, URIC #### [facility] Laboratory [address] [place] [address] Dr. Wally Zapien Globulin (S) [Mass/Vol] 3.2 g/dL Normal [facility] Comment on above: Performed By: #### B CHICKEN CUTTER, T7, LIPID, TSH, CMP, URIC #### [facility] [address] [place] [address] Dr. Wally Zapien Glucose [Mass/Vol] 102 mg/dL Normal 74-106 [facility] Comment on above: Performed By: #### B CHICKEN CUTTER, T7, LIPID, TSH, CMP, URIC #### [facility] [address] [place] [address] Dr. Wally Zapien Potassium [Moles/Vol] 3.9 mmol/L Normal 3.5-5.1 [facility] Comment on above: Performed By: #### B CHICKEN CUTTER, T7, LIPID, TSH, CMP, URIC #### [facility] [address] [place] [address] Dr. Wally Zapien Protein [Mass/Vol] 7.0 g/dL Normal 6.4-8.2 [facility] Comment on above: Performed By: #### B CHICKEN CUTTER, T7, LIPID, TSH, CMP, URIC #### [facility] [address] [place] [address] Dr. Wally Zapien Sodium [Moles/Vol] 141 mmol/L Normal 136-145 [facility] Comment on above: Performed By: #### B CHICKEN CUTTER, T7, LIPID, TSH, CMP, URIC #### [facility] [address] [place] [address] Dr. Wally Zapien Urea nitrogen [Mass/Vol] 19.0 mg/dL Critically high 7.0-18.0 [facility] Comment on above: Performed By: #### B CHICKEN CUTTER, T7, LIPID, TSH, CMP, URIC #### [facility] [address] [place] [address] Dr. Wally Zapien Urea nitrogen/Creatinine [Mass ratio] 25.7 mg/mg Normal [facility] Comment on above: Performed By: #### B CHICKEN CUTTER, T7, LIPID, TSH, CMP, URIC #### [facility] [address] [place] [address] Dr. Wally Zapien TSHon 09-24-2022 TSH 1.535 uIU/mL Normal 0.358-3.740 [facility] Comment on above: Performed By: #### U RCX #### [facility] [address] [place] [address] Dr. Wally Zapien UA RANDOM W/MICROSCOPICon BACTERIA NONE SEEN Normal NONE SEEN [facility] Comment on above: Performed By: #### U RCX #### [facility] [address] [place] [address] Dr. Wally Zapien Bilirubin Ql (U) Negative Normal NEGATIVE [facility] Comment on above: Performed By: #### U RCX #### [facility] [address] [place] [address] Dr. Wally Zapien CAST NONE SEEN Normal NONE SEEN [facility] Comment on above: Performed By: #### U RCX #### [facility] [address] [address] [address] Wally Zapien Clarity (U) CLEAR Normal CLEAR [facility] Comment on above: Performed By: #### U RCX #### [facility] [address] [address] [address] Wally Zapien Color (U) YELLOW Normal YELLOW [facility] Comment on above: Performed By: #### U RCX #### [facility] [address] [address] [address] Wally Zapien Crystals LM Nom (Urine sed) NONE SEEN Normal NONE SEEN [facility] Comment on above: Performed By: #### U RCX #### [facility] [address] [place] [address] Dr. Wally Zapien Epithelial cells LM Ql (Urine sed) FEW Abnormal NONE SEEN /RARE [facility] Comment on above: Performed By: #### U RCX #### [facility] [address] [address] [address] Wally Zapien Glucose Ql (U) Negative Normal NEGATIVE [facility] Comment on above: Performed By: #### U RCX #### [facility] [address] [place] [address] Dr. Wally Zapien Hemoglobin Ql (U) TRACE-INTACT Abnormal NEGATIVE [facility] Comment on above: Performed By: #### U RCX #### [facility] [address] [address] [address] Wally Zapien Ketones Ql (U) Negative Normal NEGATIVE [facility] Comment on above: Performed By: #### U RCX #### [facility] [address] [address] [address] Wally Zapien LEUKOCYTES Negative Normal NEGATIVE [facility] Comment on above: Performed By: #### U RCX #### [facility] [address] [place] [address] Dr. Wally Zapien MUCOUS LARGE Abnormal NONE SEEN [facility] Comment on above: Performed By: #### U RCX #### [facility] [address] [address] [address] Wally Zapien Nitrite Ql (U) Negative Normal NEGATIVE [facility] Comment on above: Performed By: #### U RCX #### [facility] [address] [address] [address] Wally Zapien pH (U) 6.5 [pH] Normal 5-9 [facility] Comment on above: Performed By: #### U RCX #### [facility] [address] [address] [address] Wally Zapien RBC 2-5 Abnormal 0-2 [facility] Comment on above: Performed By: #### U RCX #### [facility] [address] [address] [address] Wally Zapien SPEC GRAVITY 1.025 Normal 1.005-<=1.025 [facility] Comment on above: Performed By: #### U RCX #### [facility] [address] [place] [address] Dr. Wally Zapien UA PROTEIN TRACE Normal NEGATIVE/ TRACE [facility] Comment on above: Performed By: #### U RCX #### [facility] [address] [address] [address] Wally Zapien Urobilinogen Qn (U) 1.0 {Suma'U}/dL Normal 0.2 - 1. 0 [facility] Comment on above: Performed By: #### U RCX #### [facility] [address] [address] [address] Wally Zapien WBC 0-2 Abnormal NONE SEEN [facility] Comment on above: Performed By: #### U RCX #### [facility] [address] [address] [address] Wally Zapien URIC ACID SERUMon 09-24-2022 Urate [Mass/Vol] 3.7 mg/dL Normal 3.5-7.2 [facility] Comment on above: Performed By: #### B CHICKEN CUTTER, T7, LIPID, TSH, CMP, URIC #### [facility] [address] [address] [address] Wally Zapien VITAMIN D 25 OHon 09-24-2022 VIT D 25-OH 42.6 ng/mL Normal [facility] Comment on above: Performed By: #### U RCX #### [facility] [address] [place] [address] Dr. Wally Zapien VIT D RANGES SEE BELOW Normal [facility] Comment on above: Result Comment: <20 ng/mL Vit D deficient 20 - <30 ng/mL Vit D insufficient 30 - 100 ng/mL Vit D sufficient >100 ng/mL Potential Toxicity Performed By: #### U RCX #### [facility] [address] [place] [address] Dr. Wally Zapien CBC AUTO DIFFon 09-18-2022 BASO # 0.0 103/ul Normal 0.0-0.1 [facility] Comment on above: Performed By: #### C BC #### [facility] [address] [place] [address] Dr. Wally Zapien Basophils/100 WBC (Bld) 0.7 % Normal 0.2-2.0 [facility] Comment on above: Performed By: #### C BC #### [facility] [address] [place] [address] Dr. Wally Zapien EO # 0.1 103/ul Normal 0.0-0.7 [facility] Comment on above: Performed By: #### C BC #### [facility] [address] [place] [address] Dr. Wally Zapien Eosinophils/100 WBC (Bld) 2.8 % Normal 0.9-7.0 [facility] Comment on above: Performed By: #### C BC #### [facility] [address] [place] [address] Dr. Wally Zapien Erythrocyte distribution width (RBC) [Ratio] 12.7 % Normal 11.0-15.0 [facility] Comment on above: Performed By: #### C BC #### [facility] [address] [place] [address] Dr. Wally Zapien Hematocrit (Bld) [Volume fraction] 44.1 % Normal 42.0-54.0 [facility] Comment on above: Performed By: #### C BC #### [facility] [address] [place] [address] Dr. Wally Zapien Hemoglobin (Bld) [Mass/Vol] 15.3 g/dL Normal 14.0-18.0 [facility] Comment on above: Performed By: #### C BC #### [facility] [address] [place] [address] Dr. Wally Zapien IG # 0.01 10e3/ul Normal 0.00-0.03 [facility] Comment on above: Performed By: #### C BC #### [facility] [address] [place] [address] Dr. Wally Zapien IG % 0.2 % Normal 0.0-0.5 [facility] Comment on above: Performed By: #### C BC #### [facility] [address] [place] [address] Dr. Wally Zapien LYMPH # 1.8 103/ul Normal 1.2-3.8 [facility] Comment on above: Performed By: #### C BC #### [facility] [address] [place] [address] Dr. Wally Zapien Lymphocytes/100 WBC (Bld) 43.0 % Normal 20.5-60.0 [facility] Comment on above: Performed By: #### C BC #### [facility] [address] [place] [address] Dr. Wally Zapien MANUAL DIFF REQ NO Normal [facility] Comment on above: Performed By: #### C BC #### [facility] [address] [place] [address] Dr. Wally Zapien MCH (RBC) [Entitic mass] 32.1 pg Normal 25.9-34.0 [facility] Comment on above: Performed By: #### C BC #### [facility] [address] [place] [address] Dr. Wally Zapien MCHC (RBC) [Mass/Vol] 34.7 g/dL Normal 29.9-35.2 [facility] Comment on above: Performed By: #### C BC #### [facility] [address] [place] [address] Dr. Wally Zapien MCV (RBC) [Entitic vol] 92.5 fL Normal 80.0-94.0 [facility] Comment on above: Performed By: #### C BC #### [facility] [address] [place] [address] Dr. Wally Zapien MONO # 0.4 103/ul Normal 0.3-0.8 [facility] Comment on above: Performed By: #### C BC #### [facility] [address] [place] [address] Dr. Wally Zapien Monocytes/100 WBC (Bld) 9.2 % Normal 1.7-12.0 [facility] Comment on above: Performed By: #### C BC #### [facility] [address] [place] [address] Dr. Wally Zapien NEUT # 1.9 103/ul Normal 1.4-6.5 [facility] Comment on above: Performed By: #### C BC #### [facility] [address] [place] [address] Dr. Wally Zapien Neutrophils/100 WBC (Bld) 44.1 % Normal 43.0-75.0 [facility] Comment on above: Performed By: #### C BC #### [facility] [address] [place] [address] Dr. Wally Zapien Platelet mean volume (Bld) [Entitic vol] 10.4 fL Normal 9.5-13.5 [facility] Comment on above: Performed By: #### C BC #### [facility] [address] [place] [address] Dr. Wally Zapien PLT 152 103/ul Normal 150-450 [facility] Comment on above: Performed By: #### C BC #### [facility] [address] [place] [address] Dr. Wally Zapien RBC 4.77 106/ul Normal 4.70-6.10 [facility] Comment on above: Performed By: #### C BC #### [facility] [address] [place] [address] Dr. Wally Zapien WBC 4.2 103/ul Normal 4.0-11.0 [facility] Comment on above: Performed By: #### C NORIS #### [facility] [address] [address] [address] ABD/PELVIS WO CONon [...] JOELLE LOPEZ Date: 2022-09-18 13:40 Normal [facility] ER URINE PROFILEon 3 Bilirubin Ql (U) SMALL Abnormal NEGATIVE [facility] Comment on above: Performed By: #### E KERRI WILLIS #### [facility] Laboratory [address] [place] [address] Dr. Wally Zapien Clarity (U) SL CLOUDY Abnormal CLEAR [facility] Comment on above: Performed By: #### BIMAL PADRONRO #### [facility] [address] [place] [address] Dr. Wally Zapien Color (U) RED Abnormal YELLOW [facility] Comment on above: Performed By: #### BIMAL PADRONRO #### [facility] [address] [place] [address] Dr. Wally GERBER A micrscopic examination will be performed if indicated. Normal [facility] Comment on above: Performed By: #### BIMAL PADRONRO #### [facility] [address] [place] [address] Dr. Wally Zapien Glucose Ql (U) Negative Normal NEGATIVE [facility] Comment on above: Performed By: #### BIMAL PADRONRO #### [facility] [address] [place] [address] Dr. Wally Zapien Hemoglobin Ql (U) LARGE Abnormal NEGATIVE [facility] Comment on above: Performed By: #### BIMAL PADRONRO #### [facility] [address] [place] [address] Dr. Wally Zapien Ketones Ql (U) TRACE Abnormal NEGATIVE [facility] Comment on above: Performed By: #### KERRI PADRON #### [facility] [address] [place] [address] Dr. Wally Zapien LEUKOCYTES TRACE Abnormal NEGATIVE [facility] Comment on above: Performed By: #### BIMAL PADRONRO #### [facility] [address] [place] [address] Dr. Wally Zapien Nitrite Ql (U) Positive Abnormal NEGATIVE [facility] Comment on above: Performed By: #### MANSOOR PADRONICRO #### [facility] [address] [place] [address] Dr. Wally Zapien pH (U) 5.5 [pH] Normal 5-9 [facility] Comment on above: Performed By: #### E RUR, UMICRO #### [facility] [address] [place] [address] Dr. Wally Zapien Protein (U) [Mass/Vol] 100 mg/dL Abnormal NEGATIVE/ TRACE [facility] Comment on above: Performed By: #### E RUR, UMICRO #### [facility] [address] [place] [address] Dr. Wally Zapien SPEC GRAVITY 1.025 Normal 1.005-<=1.025 [facility] Comment on above: Performed By: #### E RUR, UMICRO #### [facility] [address] [place] [address] Dr. Wally Zapien UR MICRO IND INDICATED Normal [facility] Comment on above: Performed By: #### E RUR UMICRO #### [facility] [address] [place] [address] Dr. Wally Zapien Urobilinogen Qn (U) 1.0 {Suma'U}/dL Normal 0.2 - 1. 0 [facility] Comment on above: Performed By: #### E LAZARO UMICRO #### [facility] [address] [place] [address] Dr. Wally Zapien PROF CHEM 8 (BAS METB)on Anion gap [Moles/Vol] 10.5 mmol/L Normal [facility] Comment on above: Performed By: #### U RCX #### [facility] [address] [place] [address] Dr. Wally Zapien Calcium [Mass/Vol] 8.6 mg/dL Normal 8.5-10.1 [facility] Comment on above: Performed By: #### U RCX #### [facility] [address] [place] [address] Dr. Wally Zapien Chloride [Moles/Vol] 105 mmol/L Normal 98-107 [facility] Comment on above: Performed By: #### U RCX #### [facility] [address] [place] [address] Dr. Wally Zapien CO2 [Moles/Vol] 28.8 mmol/L Normal 21.0-32.0 [facility] Comment on above: Performed By: #### U RCX #### [facility] [address] [address] [address] Wally Zapien Creatinine [Mass/Vol] 0.85 mg/dL Normal 0.70-1.30 [facility] Comment on above: Performed By: #### U RCX #### [facility] [address] [address] [address] Wally Zapien EGFR-AF GAMBIAN >60 Normal >=60 [facility] Comment on above: Performed By: #### U RCX #### [facility] [address] [address] [address] Wally Zapien EGFR-NON AF GAMBIAN >60 Normal >=60 [facility] Comment on above: Performed By: #### U RCX #### [facility] [address] [address] [address] Wally Zapien Glucose [Mass/Vol] 112 mg/dL Critically high 74-106 [facility] Comment on above: Performed By: #### U RCX #### [facility] [address] [address] [address] Wally Zapien Potassium [Moles/Vol] 4.3 mmol/L Normal 3.5-5.1 [facility] Comment on above: Performed By: #### U RCX #### [facility] [address] [address] [address] Wally Zapien Sodium [Moles/Vol] 140 mmol/L Normal 136-145 [facility] Comment on above: Performed By: #### U RCX #### [facility] [address] [address] [address] Wally Zapien Urea nitrogen [Mass/Vol] 23.0 mg/dL Critically high 7.0-18.0 [facility] Comment on above: Performed By: #### U RCX #### [facility] [address] [address] [address] Wally Zapien Urea nitrogen/Creatinine [Mass ratio] 27.1 mg/mg Normal [facility] Comment on above: Performed By: #### U RCX #### [facility] [address] [place] [address] Dr. Wally Zapien URINE MICROSCOPIC ONLYon BACTERIA TRACE Abnormal NONE SEEN [facility] Comment on above: Performed By: #### E RUR, UMICRO #### [facility] [address] [place] [address] Dr. aWlly Zapien Bacteria identified Cx Nom (U) NOT INDICATED Normal [facility] Comment on above: Performed By: #### E RUR, UMICRO #### [facility] [address] [place] [address] Dr. Wally Zapien CAST NONE SEEN Normal NONE SEEN [facility] Comment on above: Performed By: #### E RUR, UMICRO #### [facility] [address] [place] [address] Dr. Wally Zapien Crystals LM Nom (Urine sed) NONE SEEN Normal NONE SEEN [facility] Comment on above: Performed By: #### E RUR, UMICRO #### [facility] [address] [place] [address] Dr. Wally Zapien Epithelial cells LM Ql (Urine sed) RARE Normal NONE SEEN /RARE [facility] Comment on above: Performed By: #### E RUR, UMICRO #### [facility] [address] [place] [address] Dr. Wally Zapien MUCOUS NONE SEEN Normal NONE SEEN [facility] Comment on above: Performed By: #### E RUR, UMICRO #### [facility] [address] [place] [address] Dr. Wally Zapien RBC (U) [#/Vol] /uL Abnormal 0-2 [facility] Comment on above: Performed By: #### E RUR, UMICRO #### [facility] [address] [place] [address] Dr. Wally Zapien WBC 2-5 Abnormal NONE SEEN [facility] Comment on above: Performed By: #### E RUR, UMICRO #### [facility] [address] [address] [address] Wally Zapien Vital Signs Date Time Vital Sign Value Performing Clinician Facility 06-22-2024 16:00-0400 Body temperature 98.42 [degF] Lazara Orzech [facility] 06-22-2024 16:00-0400 Diastolic blood pressure 76 mm[Hg] Lazara Orzech [facility] 06-22-2024 16:00-0400 Heart rate 77 /min Lazara Orzech [facility] 06-22-2024 16:00-0400 Respiratory rate 16 /min Lazara Orzech [facility] 06-22-2024 16:00-0400 Systolic blood pressure 138 mm[Hg] Lazara Orzech [facility] 06-02-2024 11:50-0400 Diastolic blood pressure 84 mm[Hg] Lazara Orzech [facility] 06-02-2024 11:50-0400 Heart rate 156 /min Lazara Orzech [facility] 06-02-2024 11:50-0400 Respiratory rate 16 /min Lazara Orzech [facility] 06-02-2024 11:50-0400 Systolic blood pressure 95 mm[Hg] Lazara Orzech [facility] 03-17-2024 14:58-0400 Blood Pressure Location Lazara Orzech [facility] 03-17-2024 14:58-0400 Diastolic blood pressure 77 mm[Hg] Lazara Orzech [facility] 03-17-2024 14:58-0400 Heart rate 80 /min Lazara Orzech [facility] 03-17-2024 14:58-0400 Respiratory rate 16 /min Lazara Orzech [facility] 03-17-2024 14:58-0400 Systolic blood pressure 132 mm[Hg] Lazara Orzech [facility] 02-11-2024 09:59-0400 Blood Pressure Location Lazara Orzech [facility] 02-11-2024 09:59-0400 Diastolic blood pressure 84 mm[Hg] Lazara Orzech [facility] 02-11-2024 09:59-0400 Heart rate 71 /min Lazara Orzech [facility] 02-11-2024 09:59-0400 Systolic blood pressure 138 mm[Hg] Lazara Orzech [facility] 07-17-2023 15:40-0500 Body height 160.02 cm Rocio Chan Other [facility] Other 07-17-2023 15:40-0500 Body mass index (BMI) [Ratio] 37.55 kg/m2 Rocio Chan Other [facility] Other 07-17-2023 15:40-0500 Body temperature 98.2 [degF] Rocio Chan Other [facility] Other 07-17-2023 15:40-0500 Body weight 96.16 kg Rocio Chan Other [facility] Other 07-17-2023 15:40-0500 Diastolic blood pressure 76 mm[Hg] Rocio Chan Other [facility] Other 07-17-2023 15:40-0500 Respiratory rate 18 /min Rocio Chan Other [facility] Other 07-17-2023 15:40-0500 SaO2% (BldA) [Mass fraction] 96 % Rocio Chan Other [facility] Other 07-17-2023 15:40-0500 Systolic blood pressure 134 mm[Hg] Rocio Chan Other [facility] Other 09-26-2022 13:26-0500 Blood Pressure Location Reno VALENTIN [facility] 09-26-2022 13:26-0500 Diastolic blood pressure 74 mm[Hg] Reno VALENTIN [facility] 09-26-2022 13:26-0500 Heart rate 52 /min Reno VALENTIN [facility] 09-26-2022 13:26-0500 Systolic blood pressure 173 mm[Hg] Reno VALENTIN [facility] 04-16-2022 13:49-0400 Diastolic blood pressure 87 mm[Hg] Reno VALENTIN [facility] 04-16-2022 13:49-0400 Mean blood pressure 110 mm[Hg] Reno VALENTIN [facility] 04-16-2022 13:49-0400 Systolic blood pressure 156 mm[Hg] Reno VALENTIN [facility] 04-16-2022 13:37-0400 Blood Pressure Location Renonoe VALENTIN [facility] 04-16-2022 13:37-0400 Diastolic blood pressure 102 mm[Hg] Reno VALENTIN [facility] 04-16-2022 13:37-0400 Heart rate 81 /min Renonoe VALENTIN [facility] 04-16-2022 13:37-0400 Respiratory rate 16 /min Reno VALENTIN [facility] 04-16-2022 13:37-0400 Systolic blood pressure 191 mm[Hg] Reno VALENTIN [facility] Encounters Encounter Date Encounter Type Care Provider Facility Start: 07-21-2024 ambulatory Lazara X Orzech Facilit y:MERVIN [place] Start: 07-20-2024 ambulatory Lazara X Orzech Facilit y:MERVIN Jones Start: 06-22-2024 End: 06-22-2024 ambulatory Lazara X Orzech Facility:[facility] Jones Start: 06-22-2024 End: 06-22-2024 Patient encounter procedure Lazara X Orzech [facility] [place] Start: 06-02-2024 End: 06-02-2024 ambulatory Lazara X Orzech Facility:[facility] Start: 06-02-2024 End: 06-02-2024 Lab Drop off Lazara X Orzech [facility] Start: 06-02-2024 End: 06-02-2024 ambulatory Lazara X Orzech Facility:[facility] Start: 06-02-2024 End: 06-02-2024 Patient encounter procedure Lazara X Orzech [facility] Start: 04-21-2024 End: 04-21-2024 ambulatory [facility] Start: 04-17-2024 End: 04-21-2024 ambulatory [facility] Start: 04-17-2024 End: 04-21-2024 ambulatory [facility] Start: 04-17-2024 End: 04-20-2024 Evaluation and management of inpatient [facility] Start: 04-17-2024 End: 04-21-2024 Emergency department patient visit [facility] Start: 04-17-2024 End: 04-21-2024 ambulatory [facility] Start: 04-14-2024 ambulatory Lazara X Orzech Facilit y:[facility] Start: 04-07-2024 End: 04-07-2024 ambulatory Reno VALENTIN Facility:CD:[id number] Start: 03-18-2024 End: 03-18-2024 ambulatory Emily Maria Facility:[facility] Start: 03-18-2024 End: 03-18-2024 Patient encounter procedure Emily Maria [facility] Start: 03-17-2024 End: 03-17-2024 ambulatory Lazara X Orzech Facility: [facility] Start: 03-17-2024 End: 03-17-2024 Patient encounter procedure Lazara X Orzech [facility] Start: 02-11-2024 End: 02-11-2024 Lab Drop off Lazara X Orzech [facility] Start: 02-11-2024 End: 02-11-2024 ambulatory Lazara X Orzech Facility:[facility] Start: 02-11-2024 End: 02-11-2024 Patient encounter procedure Lazara X Orzech [facility] Start: 11-18-2023 End: 11-19-2023 ambulatory Fabrice Dias MD Facility: [facility] Start: 10-28-2023 End: 10-29-2023 ambulatory Fabrice Dias MD Facility: [facility] Start: 09-30-2023 End: 10-01-2023 ambulatory Fabrice Dias MD Facility: [facility] Start: 2023 End: 09-24-2023 ambulatory Fabrice Dias MD Facility: [facility] Start: 07-17-2023 End: 07-17-2023 ambulatory Rocio Chan Other [facility] Other Start: 07-17-2023 Office outpatient visit 15 minutes Rocio Chan [facility] Start: 05-27-2023 End: 05-28-2023 ambulatory Fabrice Dias MD Facility: [facility] Start: 01-23-[address] BAYRON BA . Facili ty:[facility] Start: 09-26-2022 End: 09-26-2022 Patient encounter procedure Reno VALENTIN [facility] Start: 09-24-2022 End: 09-25-[address] BAYRON BA . Facility:[facility] Start: 09-18-2022 End: 09-18-2022 ambulatory KARLOS MELTON . Facility:[facility] Start: 04-16-2022 End: 04-16-2022 Patient encounter procedure Reno VALENTIN [facility] Procedures Date Procedure Procedure Detail Performing Clinician Start: 09-24-2022 PSA screening KARLOS ALVAREZ . Comment on above: Performed By: #### U RCX #### [facility] [address] [place] [address] Dr. Wally Zapien Start: 03-17-2019 Cystoscope, device [...] unspecified formulation Reno VALENTIN [facility] 04-20-2022 SARS-CoV-2 mRNA (nchdwpbiqfq-xsgz-qksuoi e) vaccine [employer] [facility] 06-19-2021 SARS-CoV-2 (COVID-19 ) mRNA BNT-162b2 vax [employer] [facility] 06-01-2021 influenza virus vacc ine, unspecified formulation [employer] [facility] 05-23-2021 influenza virus vacc ine, unspecified formulation [employer] [facility] 11-10-2020 SARS-CoV-2 (COVID-19 ) mRNA BNT-162b2 vax [employer] [facility] 10-20-2020 SARS-CoV-2 (COVID-19 ) mRNA BNT-162b2 vax [employer] [facility] 08-04-2020 zoster vaccine recombinant [employer] [facility] 07-06-2020 SARS-CoV-2 (COVID-19 ) Ad26 vaccine, recombinant [employer] [facility] 06-24-2020 influenza virus vacc ine, unspecified formulation [employer] [facility] 06-03-2020 zoster vaccine recombinant [employer] [facility] 06-02-2020 SARS-CoV-2 (COVID-19 ) Ad26 vaccine, recombinant Reno VALENTIN [facility] 05-26-2020 influenza virus vacc ine, unspecified formulation [employer] [facility] 05-29-2019 influenza virus vacc ine, unspecified formulation [employer] [facility] 06-17-2018 influenza virus vacc ine, unspecified formulation [employer] [facility] 05-14-2017 influenza virus vacc ine, unspecified formulation [employer] [facility] 05-14-2017 pneumococcal polysaccharide vaccine, 23 valent [employer] [facility] 05-17-2016 influenza virus vacc ine, unspecified formulation [employer] [facility] 05-17-2016 pneumococcal conjuga te vaccine, 13 valent [employer] [facility] 05-16-2015 influenza virus vacc ine, unspecified formulation [employer] [facility] Payers Date Payer Category Payer Private Health Insurance 1957 Medicare [id number] 1940 Unknown [id number] 2.16.84 0.1.537652.3.579.2.593 1940 Unknown [id number] 2.16.84 0.1.871186.3.579.2.593 1940 Unknown [id number] 2.16.84 0.1.856132.3.579.2.593 1942 Unknown [id number] 2.16. 840.1.896368.3.579.2.196 1942 Unknown [id number] 2.16. 840.1.201702.3.579.2.196 1942 Unknown [id number] 2.16. 840.1.167973.3.579.2.196 1942 Unknown [id number] 2.16. 840.1.697950.3.579.2.196 1942 Unknown [id number] 2.16. 840.1.947080.3.579.2.196 1942 Unknown [id number] 2.16.8 40.1.267558.3.579.2.727 1942 Unknown [id number] 2.16.8 40.1.693076.3.579.2.727 1942 Unknown [id number] 2.16.8 40.1.755449.3.579.2.1286 1942 Unknown [id number] 2.16.8 40.1.582221.3.579.2.1286 1942 Unknown [id number] 2.16.8 40.1.318901.3.579.2.1286 1942 Unknown [id number] 2.16.8 40.1.109821.3.579.2.1286 1942 Unknown [id number] 2.16.8 40.1.323038.3.579.2.1286 1942 Unknown [id number] 2.16.8 40.1.866062.3.579.2.1286 1942 Unknown [id number] 2.16.8 40.1.019469.3.579.2.1286 1942 Unknown [id number] 2.16.8 40.1.969312.3.579.2.1286 1942 Unknown [id number] 2.16.8 40.1.606547.3.579.2.1286 1942 Unknown [id number] 2.16.8 40.1.324539.3.579.2.727 1942 Unknown [id number] 2.16.8 40.1.826667.3.579.2.727 1942 Unknown [id number] 2.16.8 40.1.741188.3.579.2.727 1942 Unknown [id number] 2.16.8 40.1.174874.3.579.2.727 1942 Unknown [id number] 2.16.8 40.1.469586.3.579.2.727 1942 Unknown [id number] 2.16.8 40.1.503000.3.579.2.727 1942 Unknown [id number] 2.16.8 40.1.473259.3.579.2.727 1942 Unknown [id number] 2.16.8 40.1.992437.3.579.2.727 1942 Unknown [id number] 2.16.8 40.1.159111.3.579.2.727 1942 Unknown [id number] 2.16.8 40.1.183209.3.579.2.727 1942 Unknown [id number] 2.16.8 40.1.026701.3.579.2.727 Social History Date Type Detail Facility Start: 04-16-2022 End: 06-22-2024 Tobacco smoking status Never smoked tobacco (finding) [facility] Tobacco smoking status Never [facility] Sex Assigned At Male [facility] Functional Status Date Assessment Result Facility 06-22-2024 Functional Status N/A [facility] 06-02-2024 Functional Status N/A [facility] 03-17-2024 Functional Status N/A [facility] 02-11-2024 Functional Status N/A [facility] 09-26-2022 Functional Status N/A [facility] 04-16-2022 Functional Status N/A [facility] [...] Follow these instructions at home: Medicines Take eyyf-ivp-jxsfvgv and prescription medicines only as told by [...] provider. Document Revised: 05/03/2021 Document Reviewed: 05/03/2021 [employer] Patient Education 2023 Doctor kinetic. 06/02/2024 13:23:02 Urinary Tract Infection, Adult Urinary [...] Treatment for this condition includes: Antibiotic medicine. Lvty-utg-anwhhwp medicines to treat discomfort. Drinking enough water [...] Follow these instructions at home: Medicines Take hlzf-wfl-yyopbcf and prescription medicines only as told by [...] provider. Document Revised: 03/19/2021 Document Reviewed: 03/24/2021 [employer] Patient Education 2023 Doctor kinetic. 06/02/2024 13:22:59 Hematuria, Adult Hematuria, Adult Hematuria [...] Follow these instructions at home: Medicines Take mxpd-myr-tkjqslq and prescription medicines only as told by [...] or the blood stops without treatment. Take alyy-tuf-cfvkten and prescription medicines only as told by your health care provider. Drink enough fluid to keep your urine pale yellow. This information is not intended to replace advice given to you by your health care provider. Make sure you discuss any questions you have with your health care provider. Document Revised: 04/12/2021 Document Reviewed: 04/12/2021 [employer] Patient Education 2023 Doctor kinetic. Follow Up Care 05/25/2024 13:00:03 With:KIM Lino APRN, Lazara Echavarria, PARVIN, URL Address: When: Unknown Comments:4-week cath change [facility] 06-02-2024 Note Patient Education Obstetrics and [...] this condition includes: ? Antibiotic medicine. ? Apkr-jmm-khuxdgq medicines to treat discomfort. ? Drinking enough [...] these instructions at home: Medicines ? Take ocbc-ibe-zlwtrdr and prescription medicines only as told by [...] Elias Garner DO on 04/17/2024 8:52 AM [facility] 03-17-2024 Hospital Discharge instructions Patient Education [...] Follow these instructions at home: Medicines Take agkd-nyh-gkqboea and prescription medicines only as told by [...] provider. Document Revised: 05/03/2021 Document Reviewed: 05/03/2021 [employer] Patient Education 2022 Doctor kinetic. Follow Up Care 03/13/2024 14:20:02 With:KIM Lino APRN, Lazara Echavarria, PARVIN, URL Address: When: Unknown [facility] 03-17-2024 Note Patient Education Urology Acute Urinary [...] these instructions at home: Medicines ? Take tgfk-dsa-vzcjmpj and prescription medicines only as told by [...] provider. Document Revised: 05/03/2021 Document Reviewed: 05/03/2021 [employer] Patient Education ? 2022 Doctor kinetic. [facility] 02-11-2024 Evaluation + Plan note Diagnostic Tests PendingUrine Culture 02/11/24 [facility] 02-11-2024 Hospital Discharge instructions Patient Education [...] Follow these instructions at home: Medicines Take nmnk-exo-jyppdur and prescription medicines only as told by [...] or the blood stops without treatment. Take ltji-hjo-ztvdpwy and prescription medicines only as told by your health care provider. Drink enough fluid to keep your urine pale yellow. This information is not intended to replace advice given to you by your health care provider. Make sure you discuss any questions you have with your health care provider. Document Revised: 04/12/2021 Document Reviewed: 04/12/2021 [employer] Patient Education 2022 [employer] 02/11/2024 10:34:29 Benign Prostatic Hyperplasia Benign [...] urethra. Follow these instructions at home: Take xtij-qiw-zvdtfkv and prescription medicines only as told by [...] provider. Document Revised: 02/28/2022 Document Reviewed: 02/28/2022 [employer] Patient Education 2022 Doctor kinetic. Follow Up Care 04/16/2022 14:54:37 With:IKM Lino APRN, PARVIN Kirk, URL Address: When: Unknown Comments:1 year With:JAYDON COE, Reno Maciel, URL Address: [facility] [address], [place] [address] [phone] When: Unknown [facility] 02-11-2024 Note - From: Julia Charlton [...] no improvement in 2 to 3 days [facility] [facility] Other 02-01-2023 Hospital Discharge instructions Patient Education [...] or mouth. Supplies needed: Soap. Alcohol-based hand flat cutter. Standard cleaning products. Disinfectants, such as [...] water are not available, use alcohol-based hand flat cutter. Avoid touching your face, mouth, nose, [...] personal items, such as razors, toothbrushes, deodorant, rdiscoll, brushes, towels, and washcloths. Maintain hygiene in [...] water. Air-dry your dishes or use a yolk spray drier. Do not share dishes or eating utensils. [...] certain germs and not others. Read the ship mate's instructions or read online resources to determine [...] minutes after each use, or according to ship mate's instructions. Wash reusable cleaning cloths and sanitize [...] water are not available, use alcohol-based hand flat cutter. In general: Stay home except to [...] for Professionals in Infection Control and Epidemiology: professionals.site.apic.org/hcxtxcct-hu-ohwc/tbn-fnocglrdjm-rmdlddl/home/ Summary It is important to know how [...] 05/21/2009 Document Revised: 12/08/2019 Document Reviewed: 11/06/2019 [employer] Patient Education 2020 Doctor kinetic. Follow Up Care 09/20/2022 14:58:28 With:JAYDON COE, eRno Maciel, URL Address: [facility] [address] , [place] [address]- When:3 months Comments:UTI F/U [facility] 08-22-2022 Hospital Discharge instructions Patient Education 04/16/2022 [...] urethra. Follow these instructions at home: Take njmc-zia-wqqunfx and prescription medicines only as told by [...] 08/12/2006 Document Revised: 07/07/2019 Document Reviewed: 09/16/2017 [employer] Patient Education 2020 Doctor kinetic. 04/16/2022 14:44:17 Calorie Counting for Weight Loss [...] 08/12/2006 Document Revised: 05/01/2019 Document Reviewed: 07/12/2017 [employer] Patient Education 2020 Doctor kinetic. Follow Up Care 10/16/2021 15:00:57 With:JAYDON COE, Reno Maciel, URL Address: [address] [place] [phone] (1) When:Within 1 Year(s) [facility] 02-11-2021 NotePatient Outreach (COVAMN) KYLER RICHARD ([id number]) 1940 M Date Time Provider Department 10/06/20 JOLYNN RUSSO During your visit today, we recorded the following information about you: Allergies As of Date: 10/06/2020 (No Known Allergies) Date Reviewed: 11/27/2018 Reviewed by: Huyen Barraza - Fully Assessed Order(s):SARS-COVID VACCINE 1ST DOSE APPT [[id number]] Order #: [id number] FUTURE Prescriptions as of 10/06/2020 Sig: RHOPRESSA [...] arteriosclerosis [I25.10] Letter Text Encounter Status:Closed by PressyNIDIA on 10/10/20[facility] Evaluation + Plan note Future Appointments Appointment Date:04/19/2023 09:30:00 AM Scheduled Provider:Reno VALENTIN MD Location:[facility] Appointment Type:URO Office Visit [facility] evaluation + Plan note Future Appointments Appointment Date:01/16/2023 09:45:00 AM Scheduled Provider:Reno VALENTIN MD Location:[facility] Appointment Type:URO Office Visit Appointment Date:04/19/2023 09:30:00 AM Scheduled Provider:Reno VALENTIN MD Location:[facility] Appointment Type:URO Office Visit [facility] Evaluation + Plan note Future Appointments Appointment Date:04/14/2024 11:30:00 AM Scheduled Provider:KIM Lino APRN, Lazara X Location:[facility] Appointment Type:URO Office Visit [facility] evaluation + Plan note Future Appointments Appointment Date:06/30/2024 09:00:00 AM Scheduled Provider:KIM Lino APRN Lazara Jericho Location:[facility] Appointment Type:URO Office Visit Diagnostic Tests Pending * Urine Culture 06/02/24 [facility] Evaluation + Plan note Future Appointments Appointment Date:06/30/2024 09:00:00 AM Scheduled Provider:KIM Lino APRN, [place] X Location:[facility] Appointment Type:URO Office Visit [facility] evaluation + Plan note Future Appointments Appointment Date:07/21/2024 11:00:00 AM Scheduled Provider:KIM Lino APRN, [place] X Location:[facility] Appointment Type:URO Office Visit [facility] Hislnaa general Narrative - Reported* Type Description Date Medical History heart disease Medical History colon cancer Medical History glaucoma Surgical History open heart surgery Surgical History colon surgery Surgical History 3 hernia repairs Surgical History torn retina Surgical History cataracts Surgical History left total hip 2017 Surgical History Eye lid lift both 2020 Hospitalization History see above Hospitalization History back spasms 2022 [facility] Other Hospital course Narrative No data available for this section [facility] Hospital Discharge instructions No data available for this section [facility] No data available for this section [facility] Summary Purpose Family History No Family [...] section and content) DATE CREATED AUTHOR 09/19/2021 [facility] DATE CREATED AUTHOR AUTHOR'S ORGANIZ ATION 02/01/2023 [facility] DATE CREATED AUTHOR AUTHOR'S ORGANIZ ATION 12/31/2023 [facility] DATE CREATED AUTHOR AUTHOR'S ORGANIZ ATION 02/13/2024 [place] DATE CREATED AUTHOR AUTHOR'S ORGANIZ ATION 02/14/2024 [facility] DATE CREATED AUTHOR AUTHOR'S ORGANIZ ATION 04/22/2024 [facility] DATE CREATED AUTHOR AUTHOR'S ORGANIZ ATION 04/23/2024 [facility] DATE CREATED AUTHOR AUTHOR'S ORGANIZ ATION 06/03/2024 [facility] DATE CREATED AUTHOR AUTHOR'S ORGANIZ ATION 06/06/2024 [facility] DATE CREATED AUTHOR AUTHOR'S ORGANIZ ATION 06/27/2024 [place] [facility] Care Team (unrecognized sect ion and content) Personnel Name: Bayron Ba MD Address: [address] [place] [address] Personnel Name: Bayron Ba MD Address: Address: [address] [place] [address] Personnel Name: Bayron Ba MD Address: Address: [address] [place] [address] Personnel Name: Bayron Ba MD Address: Address: [address] [place] [address] Srinath [facility], [facility]- Personnel Name: Bayron Ba MD Address: Address: [address] [place] [address] Srinath [facility]- Personnel Name: Bayron Ba MD Address: Address: [address] [place] [address] Srinath HAMMOND, [facility]11[facility] Personnel Name: Bayron Ba MD Address: Address: [address] [place], [place] [address] Personnel Name: Bayron Ba MD Address: Address: [address] [place] [address] [place], [address] Personnel Name: Bayron Ba MD Address: Address: [address] [place], [place] [address] REASON FOR VISIT (unrecogniz ed section [...] BE BASED ON THE PRIMARY CLINICAL RECORDS. [employer] provides no warranty or guarantee of the accuracy or completeness of information in this document.
[2024-07-06 08:50] VITALS: BP 105/80; PULSE 98; O2SAT 96
--- NOTE | 2024-07-06 09:11 | ED_ITS ---
HPI HPI - General Adult General Chief complaint: Back Pain/Injury Stated complaint: groin pain Time Seen by Provider: 07/06/24 06:47 Source: patient Mode of arrival: ambulance Limitations: no limitations History of Present Illness HPI narrative: Patient is a 83-year-old male who is presenting to the ER with chief complaint urinary retention, hematuria, obstruction. Patient was in the ER yesterday, patient had difficulty with urinary retention. Patient's More catheter eventually was draining. Doni Koroma and Dr. Fitzgerald had spoken to the on-call urologist twice yesterday, and patient's More catheter was draining, patient was told that he can call the office today to follow-up with Dr. Valentin who is patient's established urologist, Dr. Vaelntin. Patient is on Plavix and aspirin. Patient stated last evening his More catheter was not draining as good as it should be. This morning patient was having more bladder spasm, and patient came into the ER approximately 6:30 AM for bladder spasm, urinary retention and pain. Patient has no fever or chills. No chest pain or shortness of breath. No abdominal nausea or vomiting. No other acute complaints. Prior to my arrival at 700am, Ayah PRIDE had spoken to the patient, evaluated the patient, and also BladderScan him and got approximately 87 cc in the bladder. She tried to irrigate with 20 cc, she was able to push 20 cc in but was unable to pull back any urine. Patient was also ordered 4 mg of morphine IV by Dr. Fitzgerald with some basic lab work as well. Patient has longstanding history of Indwelling More. Patient has history of hypospadias. Patient local urologist is Dr. Valentin. Patient come to find out does not have an appointment today he was supposed to call the office to make an appointment. No fever or chills. No nausea vomiting diarrhea, no other acute complaints. And during chart review, patient has history of rectal cancer. Patient last had a CAT scan of his abdomen pelvis on June 03, 2024, this was reviewed. All systems are negative except as noted/marked. All systems reviewed and otherwise negative. Nurses note and vital signs reviewed and patient is not hypoxic. General: The patient appears moderate distress secondary to pain and bladder spasm/pain. Patient is resting uncomfortably on cart. Patient is not toxic, lethargic, or listless Skin: Warm, dry, no pallor noted. There is no rash noted. No petechiae, purpura. Head: Normocephalic, atraumatic Eye: Normal conjunctiva, no drainage, EOMI. PERRL Ears, Nose, Mouth, and Throat: oral mucosa is moist. Nares patent. Mouth without vesicles. Cardiovascular: Regular Rate and Rhythm, no murmur, gallop, rub Respiratory: Patient is in no distress, no accessory muscle use, lungs are clear to auscultation, no wheezing, rales or rhonchi Back: non-tender, no CVA tenderness bilaterally to percussion. No CT LS midline pain GI: Obese, soft, moderate to severe suprapubic tenderness to palpation, otherwise no tenderness to palpation, no masses appreciated. No rebound, guarding, or rigidity noted. No distention : Patient has hypospadias, indwelling More catheter, patient does have swelling to scrotum and bilateral testicles as well, no signs of redness, cellulitis, foreign years gangrene, or any other acute infection noted. Musculoskeletal: Patient has full range of motion of all of the extremities, no motor, sensory, or focal neurological deficits Neurological: A&O x4, normal speech Psychiatric: Cooperative Related Data Home Medications ?Medication ?Instructions ?Recorded ?Confirmed aspirin 81 mg tablet,delayed 81 mg PO DAILY 05/20/23 07/06/24 release atorvastatin 40 mg tablet 40 mg PO DAILY 05/20/23 07/06/24 dorzolamide 22.3 mg-timolol 6.8 1 drp ophthalmic (eye) BID 05/20/23 07/06/24 mg/mL eye drops icosapent ethyl 1 gram capsule 2 g PO BID 05/20/23 07/06/24 latanoprost 0.005 % eye drops 1 drp ophthalmic (eye) .QHS 05/20/23 07/06/24 lisinopril 10 mg tablet 10 mg PO DAILY 05/20/23 07/06/24 meloxicam 15 mg tablet 15 mg PO DAILY 05/20/23 07/06/24 netarsudil 0.02 % eye drops 1 drp ophthalmic (eye) DAILY 05/20/23 07/06/24 (Rhopressa) tamsulosin 0.4 mg capsule 0.4 mg PO BID 05/20/23 07/06/24 brimonidine 0.2 % eye drops 1 drp ophthalmic (eye) BID 03/02/24 07/06/24 cetirizine 10 mg tablet 10 mg PO DAILY 03/02/24 04/07/24 fluticasone propionate 50 1 spray intranasal DAILY 03/02/24 04/07/24 mcg/actuation nasal spray,suspension hyoscyamine sulfate 0.125 mg 0.125 mg sublingual Q6H 03/02/24 04/07/24 sublingual tablet clopidogrel 75 mg tablet 75 mg PO DAILY 07/06/24 07/06/24 metoprolol tartrate 25 mg tablet 25 mg PO BID 07/06/24 07/06/24 Previous Rx's ?Medication ?Instructions ?Recorded lidocaine 5 % topical patch 1 patch topical DAILY #30 ea 12/18/23 cephalexin 500 mg capsule 500 mg PO TID 7 days #21 caps 05/10/24 etodolac 300 mg capsule 300 mg PO Q8H PRN pain #20 caps 05/22/24 oxybutynin chloride 5 mg tablet 5 mg PO DAILY #10 tabs 06/03/24 Allergies Allergy/AdvReac Type Severity Reaction Status Date / Time levofloxacin (From Levaquin) AdvReac UPSET Verified 07/06/24 06:37 STOMACH Opioid HPI Opioid Management Most Recent Opioid Data: Last Pain Scale 10 07/06/24 07:16 07/06/24 Last ED Pain Assessment 07/06/24 07:16 Last MAR Pain Assessment 07/06/24 07:10 PFSH PFSH Medical History (Updated 07/06/24 @ 09:31 by Smooth Monteiro MD) ROSEBUD (hard of hearing) ?H91.90 - Unspecified hearing loss, unspecified ear (ICD-10) Lumbar stenosis with neurogenic claudication ?M48.062 - Spinal stenosis, lumbar region with neurogenic claudication (ICD- 10) Lumbar spondylosis ?M47.816 - Spondylosis without myelopathy or radiculopathy, lumbar region (ICD-10) Myofascial pain ?M79.18 - Myalgia, other site (ICD-10) Acute UTI ?N39.0 - Urinary tract infection, site not specified (ICD-10) Acute urinary retention ?R33.8 - Other retention of urine (ICD-10) Acute urinary retention ?R33.8 - Other retention of urine (ICD-10) BPH (benign prostatic hyperplasia) ?N40.0 - Benign prostatic hyperplasia without lower urinary tract symptoms (ICD-10) Urethral stricture ?N35.919 - Unspecified urethral stricture, male, unspecified site (ICD-10) Gross hematuria ?R31.0 - Gross hematuria (ICD-10) Sleep apnea ?G47.30 - Sleep apnea, unspecified (ICD-10) High cholesterol ?E78.00 - Pure hypercholesterolemia, unspecified (ICD-10) Heart disease ?I51.9 - Heart disease, unspecified (ICD-10) Hypertension ?I10 - Essential (primary) hypertension (ICD-10) Glaucoma ?H40.9 - Unspecified glaucoma (ICD-10) Colon cancer ?C18.9 - Malignant neoplasm of colon, unspecified (ICD-10) Inability to walk ?R26.2 - Difficulty in walking, not elsewhere classified (ICD-10) Chronic back pain ?M54.9 - Dorsalgia, unspecified (ICD-10) ?G89.29 - Other chronic pain (ICD-10) Surgical History (Updated 04/07/24 @ 09:07 by Sandra Hill) History of cataract extraction ?Z98.49 - Cataract extraction status, unspecified eye (ICD-10) S/P tonsillectomy and adenoidectomy ?Z90.89 - Acquired absence of other organs (ICD-10) History of hydrocelectomy ?Z98.890 - Other specified postprocedural states (ICD-10) Detached retina, left ?H33.22 - Serous retinal detachment, left eye (ICD-10) History of colectomy ?Z90.49 - Acquired absence of other specified parts of digestive tract (ICD- 10) 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 Smoking status: Never smoker Non-prescribed substance use: denies use Previous occupational history: retired Highest level of school completed/degree received: Bachelor's degree Are you now , , , , never or living with a partner: Little interest or pleasure in doing things: not at all Feeling down, depressed, or hopeless: not at all Feel stressed/tense/nervous/anxious/difficulty sleeping: not at all Do you think of yourself as: straight/heterosexual Gender Identity: male Exam Constitutional Vital Signs, click to edit/add: Last Vital Signs Temp 98.3 F 07/06/24 06:37 Pulse 72 07/06/24 10:13 Resp 18 07/06/24 10:13 BP 104/50 07/06/24 10:13 Pulse Ox 97 07/06/24 10:13 O2 Del Method Room Air 07/06/24 10:13 Course Vital Signs Vital signs: Vital Signs Temperature 98.3 F 07/06/24 06:37 Pulse Rate 101 H 07/06/24 06:37 Respiratory Rate 20 07/06/24 06:37 Blood Pressure 170/124 H 07/06/24 06:37 Pulse Oximetry 96 07/06/24 06:37 Oxygen Delivery Method Room Air 07/06/24 06:37 Temperature 98.3 F 07/06/24 06:37 Pulse Rate 72 07/06/24 10:13 Respiratory Rate 18 07/06/24 10:13 Blood Pressure 104/50 07/06/24 10:13 Pulse Oximetry 97 07/06/24 10:13 Oxygen Delivery Method Room Air 07/06/24 10:13 Medical Decision Making MDM Narrative Medical decision making narrative: I spent approximately 30-35 minutes at bedside with Loretta PRIDE with irrigating More catheter forcefully. Multiple clots were able to be dislodged and drained. Patient had a urine that was able to be drained from bladder. Patient's pain was significantly improved after 10-12 attempts of forceful irrigation with a Buffy syringe that was done initially 2 or 3 times by Loretta PRIDE, and the rest of them were done by myself. Patient did have continuous drainage of red urine. Patient did have relief of bladder spasm, oxybutynin was also given. Ultrasound at bedside was done by Dr. Monteiro. Patient has extremely minimal urine noted in bladder at ultrasound, More catheter was noted to be in the bladder as well, approximately 20 cc. Bladder has been drained, patient is in no longer pain or distress and not having spasm. 0801 I have spoken to Dr. Valentin, I spoke to him for approximately 10 minutes on the phone. We do not have any urology coverage until July 09. I have called to [facility] as well, they do not have any urology coverage. I spoke to Dr. Valentin, he initially was not aware of no urology coverage until July 09. He is unable to see and evaluate the patient in the office were in the ER today, and he is technically not on-call today. He recommended transfer to tertiary care center where he could see urology and have better definitive treatment for 2 ER repeat visits, hematuria, urinary obstruction and urinary retention. I have spoken to the patient at length about recommendation to transfer to another larger facility. Patient stated his has been to [facility] multiple times in the past, and was requesting to go to [facility]. Patient has had heart surgery at the [facility] and [facility]. Patient is on Plavix and baby aspirin. [address] Cheatham, urology, at [facility]. He is accepting of patient in consultation and is aware that I have no urology on-call coverage today they can see this patient. Patient report is been explained to him of his ER visit yesterday and today. 0827 I spoke to injury, physician assistant auto center manager at [facility], who is working with Dr. Jack who is accepting medical attending physician. Patient is accepted at [facility]. Patient will be transferred, arrival time will be approximately 1030am. 1025 Patient was irrigated by Loretta PRIDE with his More catheter with forceful irrigation one last time prior to arrival. EMS is here for transfer. Patient had minimal clot, patient's More catheter is still draining at this time. Patient has not had a significant amount of discomfort or pubic pain/spasm since last at bedside 2 hours ago. There is been greater than >45 minutes at bedside speaking to patient, then patient and son, 30 minutes at bedside during forceful irrigation and helping with urinary retention/More obstruction. Critical care time 35 minutes exclusive from separate billable procedures that were performed. The following was considered in the determination of critical care but not limited to the level of medical decision making, intensive cardiac and/or respiratory monitoring, frequent vital sign monitoring, evaluation of laboratory studies, evaluation of radiographic studies, oxygen monitoring, and constant monitoring and speaking to family at bedside Lab Data Labs: Lab Results 07/06/24 Range/Units 07:19 WBC 13.3 H (4.0-11.0) 10^3/uL RBC 4.87 (4.70-6.10) 10^6/uL Hgb 15.5 (14.0-18.0) g/dL Hct 45.0 (42.0-54.0) % MCV 92.4 (80.0-94.0) fL MCH 31.8 (25.9-34.0) pg MCHC 34.4 (29.9-35.2) g/dL RDW 13.5 (11.0-15.0) % Plt Count 211 (150-450) 10^3/uL MPV 10.4 (9.5-13.5) fL Neut % (Auto) 76.8 H (43.0-75.0) % Lymph % (Auto) 17.1 L (20.5-60.0) % Seward % (Auto) 5.1 (1.7-12.0) % Eos % (Auto) 0.2 L (0.9-7.0) % Baso % (Auto) 0.5 (0.2-2.0) % Neut # (Auto) 10.2 H (1.4-6.5) 10^3/uL Lymph # (Auto) 2.3 (1.2-3.8) 10^3/uL Seward # (Auto) 0.7 (0.3-0.8) 10^3/uL Eos # (Auto) 0.0 (0.0-0.7) 10^3/uL Baso # (Auto) 0.1 (0.0-0.1) 10^3/uL Abs Immat Gran (auto) 0.04 H (0.00-0.03) 10^3/uL Imm/Tot Granulo (auto) 0.3 (0.0-0.5) % Sodium 145 (136-145) mmol/L Potassium 3.7 (3.5-5.1) mmol/L Chloride 106 (98-107) mmol/L Carbon Dioxide 24.6 (21.0-32.0) mmol/L Anion Gap 18.1 BUN 21.0 H (7.0-18.0) mg/dL Creatinine 1.14 (0.70-1.30) mg/dL Est GFR ( Amer) >60 (>=60 mL/min/1.73m^2) Est GFR (Non-Af Amer) >60 (>=60 mL/min/1.73m^2) BUN/Creatinine Ratio 18.4 Glucose 161 H (74-106) mg/dL Calcium 9.1 (8.5-10.1) mg/dL Discharge Plan Discharge Chief Complaint: Back Pain/Injury Clinical Impression: Acute urinary retention, Hematuria, Obstructed More catheter Patient Disposition: [facility] Time of Disposition Decision: 08:30 Discharge location: [facility] Dr Obando accepting physician, Dr. Finney is excepting urology consult
[2024-07-06 10:13] VITALS: BP 104/50; PULSE 72; O2SAT 97
--- NOTE | 2024-07-06 10:27 | PC.NURSE ---
[facility] arrives at this time for transport, report given.
--- NOTE | 2024-07-06 10:40 | PC.NURSE ---
Report called to [facility].
== END 2024-07-06 10:41 | disposition short-term general hospital (02) ==
PROVIDERS: Emergency Medicine; Emergency Provider Emergency Medicine; PCP Family Medicine
DX: T83.098A Other mechanical complication of other urinary catheter, initial encounter (principal); R33.9 Retention of urine, unspecified; R31.9 Hematuria, unspecified; E66.9 Obesity, unspecified; Z68.36 Body mass index [BMI] 36.0-36.9, adult
CPT/HCPCS: 36415; 80048; 85025; 96374; 99285; J2270

== ENCOUNTER 2024-07-22 14:03 | Outpatient (OUT) | payer MEDICARE, SELFPAY ==
[2024-07-22 14:32] LABS: Basophils Percent Auto 0.8 % (0.2-2.0); Eosinophils Absolute Auto 0.2 10^3/uL (0.0-0.7); Eosinophils Percent Auto 3.9 % (0.9-7.0); Hematocrit 40.5 % (42.0-54.0); Hemoglobin 13.5 g/dL (14.0-18.0); Immature Granulocytes Abs Auto 0.01 10^3/uL (0.00-0.03); Immature Granulocytes Pct Auto 0.2 % (0.0-0.5); Lymphocytes Absolute Auto 1.5 10^3/uL (1.2-3.8); Lymphocytes Percent Auto 30.8 % (20.5-60.0); Mean Corpuscular HGB Conc 33.3 g/dL (29.9-35.2); Mean Corpuscular Hemoglobin 31.3 pg (25.9-34.0); Mean Corpuscular Volume 93.8 fL (80.0-94.0); Monocytes Absolute Auto 0.4 10^3/uL (0.3-0.8); Monocytes Percent Auto 7.6 % (1.7-12.0); Neutrophils Absolute Auto 2.8 10^3/uL (1.4-6.5); Neutrophils Percent Auto 56.7 % (43.0-75.0); Platelet Count 251 10^3/uL (150-450); Red Blood Count 4.32 10^6/uL (4.70-6.10); Red Cell Distribution Width 13.3 % (11.0-15.0); White Blood Count 4.9 10^3/uL (4.0-11.0)
== END 2024-07-22 14:04 | disposition home or self-care (01) ==
PROVIDERS: PCP Family Medicine
DX: R78.81 Bacteremia (principal); B95.62 Methicillin resistant Staphylococcus aureus infection as the cause of diseases classified elsewhere
CPT/HCPCS: 36415; 85025; 87040

== ENCOUNTER 2024-08-10 10:56 | Outpatient (OUT) | payer MEDICARE, SELFPAY ==
--- OUTSIDE RECORDS SUMMARY | 2024-08-10 11:19 | XMS_ITS | CCD ---
Author Organization [facility]Syn[facility] Care Team Providers Care Lunchroom Attendant Name Role Phone Bayron Velazquez Primary Care Physician GERONIMO ., KARLOS Admitting Unavailable GERONIMO ., KARLOS Consulting Unavailable GERONIMO Parra, KARLOS Attending Unavailable MARCUS ., DR MONROY Primary Care Unavailable Joelle Atkinson Consulting Unavailable ABEBAY ., DR MONROY Attending [...] Attending Unavailable DONNA ANTONY Attending Unavailable BAYRON VELAZQUEZ M Primary Care Unavailable RAMEZ LERNER Admitting Unavailable DONNA ANTONY Attending Unavailable DONNA ANTONY Referring Unavailable BAYRON VELAZQUEZ M Primary Care Unavailable DONNA ANTONY Attending Unavailable DONNA ANTONY Referring Unavailable BAYRON VELAZQUEZ M Primary Care Unavailable JOEL, RUQIYYA T Attending Unavailable JOEL, RUQIYYA T Referring Unavailable BAYRON VELAZQUEZ M Primary Care Unavailable MALDONADO, RUQIYYA T Attending Unavailable JOEL, RUQIYYA T Referring Unavailable BAYRON VELAZQUEZ M Primary Care Unavailable MALDONADO, RUQIYYA T Attending Unavailable GEORGINA MALDONADO Referring Unavailable MARCUS, BAYRON M Primary Care Unavailable RAMBO MILLIGAN Attending [...] Unavailable Orzech, Lazara X Attending Unavailable Reno INTERIANO Referring Unavailable Reno INTERIANO Attending Unavailable Unavailable Primary Care Provider Unavailabl e MANLEY, BARRERA Referring Unavailable MANLEY, BARRERA Referring Unavailable AIYEWUNMI OLGA Attending Unavailable EJNNIFFER JOSEFINA Referring Unavailable MANLEY, BARRERA Admitting Unavailable MANLEY, BARRERA Attending Unavailable AIYEWUNMI, OLGA Attending Unavailable Orzech, Lazara X Attending Unavailable Orzech, Lazara X Attending Unavailable Reno INTERIANO Attending Unavailable PRIYA ELIZABETH Attending Unavailable PRIYA ELIZABETH Attending Unavailable Orzech, Lazara X Attending Unavailable Allergies Allergy Classification Reported Allergen(s) Allergy Type Date of Onset Reaction(s) Facility Quinolones (antibiotic) (2 sources) levoFLOXacin; Translations: [levofloxacin] Drug Allergy Irritation (qualifier value) [facility] (13 sources) levoFLOXacin; Translations: [levofloxacin] Drug Allergy 4 Irritation (qualifier value) [facility] (1 source) ALLERGIES NOT ON FILE; Translations: [ALLERGIES NOT ON FILE] Propensity to adverse reactions (disorder) [facility] Repository Medications Current Medications Medication Drug Class(es) Dates Sig (Normalized) Sig (Original) Aspirin (10 sources) Platelet Aggregation Inhibitor, Nonsteroidal Anti-inflammatory Drug Start: 09-26-2022 aspirin Start Date: 09/26/22 Status: Ordered atorvastatin 40 mg oral tablet (12 sources) HMG-CoA Reductase Inhibitor Start: 03-13-2019 atorvastatin 40 mg oral tablet Refills(s) 0 Start Date: 03/13/19 Status: Ordered brimonidine (11 sources) alpha-Adrenergic Agonist Start: 03-13-2019 brimonidine ophthalmic [...] Active cetirizine hydrochloride 10 mg oral tablet (9 sources) Histamine-1 Receptor Antagonist Start: cetirizine 10 mg Tab Refills(s) 0 Start Date: 02/11/24 Status: Ordered clotrimazole 10 mg/ml topical cream (1 source) Azole Antifungal Start: End: clotrimazole Top 1% Crm 1 jennifer, Topical, BID for 14 day(s), 60 gm, Refill(s) 0, [facility] #[id number], 158, cm, 06/02/24 11:55:00 EDT, Height/Length Dosing, 96, kg, 06/22/24 16:06:00 EDT, Weight Dosing Start Date: 06/22/24 Stop Date: 07/06/24 Status: Ordered dorzolamide (12 sources) Carbonic Anhydrase Inhibitor Start: 019 take 1 drop(s) into the eye(s) three [...] day(s), # 14 cap(s), Refills(s) 0, Pharmacy: [facility] #[id number], 158, cm, 06/02/24 11:55:00 EDT, Height/Length Dosing, 96, kg, 06/02/24 11:55:00 EDT, Weight Dosing Start Date: 06/02/24 Stop Date: 06/09/24 Status: Ordered Start: 09-26-2022 End: 10-06-2022 take 1 capsule by mouth twice daily doxycycline hyclate 100 mg Cap 100 mg = 1 cap(s), Oral, BID, X 10 day(s), # 20 cap(s), Refills(s) 0, Pharmacy: [facility] #[id number], 160, cm, 09/26/22 13:50:00 EST, Height/Length Dosing, 97.3, kg, 09/26/22 13:50:00 EST, Weight Dosing Start Date: 09/26/22 Stop Date: 10/06/22 Status: Ordered hyoscyamine sulfate 0.125 mg sublingual tablet (9 sources) Start: 02-11-2024 hyoscyamine 0. 125 mg sublingual Tab Refills(s) 0 Start Date: 02/11/24 Status: Ordered icosapent ethyl 1000 mg oral capsule (12 sources) Start: 03-13-2019 Vascepa 1 g or al capsule Refills(s) 0 Start Date: 03/13/19 Status: Ordered take 2 capsules by m outh every twelve hours Vascepa 1 GM 2 capsules with food Orally Twice a day Active latanoprost (12 sources) Prostaglandin Analog Start: 03-13-2019 take 1 [...] day Active lisinopril 10 mg oral tablet (12 sources) Angiotensin Converting Enzyme Inhibitor Start: 03-13-2019 lisinopril 10 mg oral tablet Refills(s) 0 Start Date: 03/13/19 Status: Ordered meloxicam 15 mg oral tablet (9 sources) Nonsteroidal Anti-inflammatory Drug Start: 04-09-2017 meloxicam 15 mg oral tablet Refills(s) 0 Start Date: 03/13/19 Status: Ordered metoprolol tartrate 25 mg oral tablet (12 sources) beta-Adrenergic Beatrice Start: 03-13-2019 take 1 tablet by mouth once daily Lopressor 25 mg oral tablet 25 mg = 1 tab(s), Oral, Daily, Refills(s) 0 Start Date: 03/13/19 Status: Ordered take 1 tablet by lavern th every twelve hours Metoprolol Tartrate 25 MG 1 tablet with food Orally Twice a day Active Multi Vitamin+ (10 sources) Start: 09-26-2022 Multi Vitamin+ Start Date: 09/26/22 Status: Ordered netarsudil 0.2 mg/ml ophthalmic solution (11 sources) Rho Kinase Inhibitor Start: 03-13-2019 Rhopressa 0.02% ophthalmic solution Refill(s) 0 Start Date: 03/13/19 Status: Ordered Start: 03-13-2019 Rhopressa 0.02 % ophthalmic solution Refill(s) 0 Start Date: 03/13/19 Status: Ordered tamsulosin hydrochloride 0.4 mg oral capsule (11 sources) alpha-Adrenergic Beatrice Start: 07-28-2024 take 1 capsule by mouth twice daily tamsulosin 0.4 mg Cap 0.4 mg = 1 cap(s), Oral, BID, # 180 cap(s), Refills(s) 3, Pharmacy: [facility] #[id number], 158, cm, 06/02/24 11:55:00 EDT, Height/Length Dosing, 96, kg, 06/22/24 16:06:00 EDT, Weight Dosing Start Date: 07/28/24 Status: Ordered Start: 02-11-2024 tamsulosin 0.4 mg Cap 0.4 mg = 1 cap(s), BID, Refills(s) 0 Start Date: 02/11/24 Status: Ordered Start: 03-07-2022 take 1 capsule by [facility] twice daily tamsulosin 0.4 mg Cap 0.4 mg = 1 cap(s), Oral, BID, # 180 cap(s), Refills(s) 3, Pharmacy: [address], 160, cm, 10/16/21 14:26:00 EST, Height/Length Dosing, 94.4, kg, 10/16/21 14:26:00 EST, Weight Dosing Start Date: 03/07/22 Status: Ordered 12 hr timolol 5 mg/ml ophthalmic solution (1 source) beta-Adrenergic Beatrice Start: 03-13-2019 timolo l Opth 0.5% Yvette 5 mL Refill(s) 0 Start Date: 03/13/19 Status: Ordered timolol Opth 0.5% Yvette 5 mL (10 sources) Start: 03-13-2019 timolol Opth 0 .5% [...] propionate 0.05 mg/actuat metered dose nasal spray (7 sources) Corticosteroid Start: 03-17-2024 fluticasone Nasal 0.05 mg/inh [place] instill 1 spray into each nostril once [...] Documented Da te Episodic/Chronic Acute cerebrovascular disease (4 sources) 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; Translations: [Cerebral infarction, unspecified] Onset: 04-17-2024 Chronic Acute cerebrovascular disease (2 sources) Acute cerebrovascular disease Onset: 04-17-2024 Bacterial infection; unspecified site (8 sources) Bacteremia; Translations: [Bacteremia] Onset: 07-20-2024 Episodic Biliary tract disease (11 sources) Biliary calculus 03-13-2019 Episodic Calculus of urinary tract (14 sources) Kidney stone; Translations: [Calculus of kidney] Onset: 04-16-2022 Episodic Cancer of colon (11 sources) Carcinoma of colon, stage I 03-13-2019 [...] Onset: 09-20-2022 Chronic Disorders of lipid metabolism (16 sources) Hypercholesterolemia; Translations: [Hyperlipidemia, unspecified] Onset: 09-20-2022 03-13-2019 Chronic Essential hypertension (14 sources) Hypertensive disorder; Translations: [Essential (primary) hypertension] Onset: 09-20-2022 03-13-2019 Chronic Genitourinary symptoms and ill-defined conditions (20 sources) Nocturia; Translations: [Retention of urine] Onset: 09-18-2022 10-16-2021 Episodic Hyperplasia of prostate (17 sources) Benign prostatic hypertrophy with outflow obstruction; [...] Long-term current use of drug therapy; Translations: [extermination supervisor (current) use of antithrombotics/antip latelets] Onset: 06-22-2024 Episodic Other aftercare (2 sources) Encounter for therapeutic drug level monitoring; Translations: [Encounter for therapeutic drug level monitoring] Onset: 07-20-2024 Episodic Other and ill-defined heart disease (1 [...] Episodic Other diseases of bladder and urethra (17 sources) Male urethral stricture; Translations: [Unspecified urethral stricture, male, unspecified site] Onset: 04-16-2022 Episodic Other diseases of bladder and urethra (3 sources) Urethral stricture 06-22-2024 Episodic Other diseases of kidney and ureters (2 sources) Urinary tract obstruction; Translations: [Other obstructive and reflux uropathy] Onset: 04-16-2022 Episodic Other gastrointestinal disorders (11 sources) Scrotal mass 05-18-2019 Episodic Other male genital disorders (11 sources) Disorder of male genital organ 10-16-2021 Episodic Other male genital disorders (11 sources) Spermatocele 11-02-2019 Episodic Other male genital disorders (11 sources) Testicular mass 03-13-2019 Episodic Other nervous system disorders (1 source) Chronic pain; Translations: [Other chronic pain] Chronic Other non-traumatic joint disorders (1 source) Hip pain; Translations: [Pain in left hip] Episodic Other nutritional; endocrine; and metabolic disorders (1 source) Obese class II; Translations: [Body mass index (BMI) 36.0-36.9, adult] Onset: 04-16-2022 Chronic Other nutritional; endocrine; and metabolic disorders (11 sources) Body mass index 30+ - obesity 04-16-2022 Chronic Other nutritional; endocrine; and metabolic disorders (1 source) Hypocalcemia; Translations: [Hypocalcemia] Onset: 04-17-2024 Chronic Other screening for suspected conditions (not mental disorders or infectious disease) (3 sources) Encounter for screening for malignant neoplasm of prostate; Translations: [Culture positive for methicillin resistant Staphylococcus aureus] Onset: 09-28-2022 06-25-2024 Episodic Comment on above: MRSA in urine 024 Vanessa-; endo-; and myocarditis; cardiomyopathy (except that caused by tuberculosis or sexually transmitted disease) (11 sources) Pericarditis 03-13-2019 Episodic Residual codes; unclassified (11 sources) Sleep apnea 03-13-2019 Chronic Residual codes; unclassified (1 source) Sleep apnea, unspecified; Translations: [SLEEP APNEA UNSPECIFIED] Onset: 09-20-2022 Chronic Retinal detachments; defects; vascular occlusion; and retinopathy (11 sources) Retinal detachment 03-13-2019 Episodic Spondylosis; intervertebral disc disorders; other back problems (1 source) Low back pain; Translations: [Low back pain] Episodic Unclassified (3 sources) Long-term current use of drug therapy 06-22-2024 Urinary tract infections (14 sources) Urinary tract infectious disease; Translations: [Urinary [...] 09-28-2022 Episodic Other aftercare (1 source) Other extermination supervisor (current) drug therapy; Translations: [OTH CORRECTION CURRENT DRUG THERAPY] Onset: 09-20-2022 Episodic Other aftercare (1 source) extermination supervisor (current) use of aspirin; Translations: [CORRECTION CURRENT USE OF ASPIRIN] Onset: 09-20-2022 Episodic Other male genital disorders (11 sources) Hydrocele Resolved: 08-26-1989 03-13-2019 Episodic Residual codes; unclassified (1 source) Acquired absence of other specified parts of digestive tract; Translations: [ACQ ABSENCE OTH PART DIGESTV TRACT] Onset: 09-20-2022 Episodic Unclassified (1 source) Contact with and (suspected) exposure to covid-19 Z20.822 Viral infection (1 source) COVID-19 Results Test Name Value Interpretation Reference Range Facility Telephoneon 08-05-2024 Telephone [id number] Kyler Richard 1940 M Date Provider Department Center 08/05/2024 OLGA JEREZ [facility] No family history on file Normal [facility] Orders Onlyon 08-04-2024 Orders Only [id number] Kyler Richard 1940 M Date Provider Department Center 08/04/2024 OLGA JEREZ [facility] No family history on file Normal [facility] CBCon 08-03-2024 Erythrocyte distribution width (RBC) [Ratio] 13.9 % Normal 11.5-15.0 [facility] Comment on above: Performed By: #### L [id number] #### [facility] ([facility]) [address] [place] [address] ERYTHROCYTE MEAN CORPUSCULAR HEMOGLOBIN CONCENTRATION (G/DL) BY AUTOMATED 33.3 g/dL Normal 32.0-35.0 [facility] Comment on above: Performed By: #### L [id number] #### [facility] ([facility]) [address] [place] [address] Hematocrit (Bld) [Volume fraction] 36.0 % Low 39.0-55.0 [facility] Comment on above: Performed By: #### L [id number] #### [facility] [address] [place] [address] Hemoglobin (Bld) [Mass/Vol] 12.0 g/dL Low 13.0-17.0 [facility] Comment on above: Performed By: #### L [id number] #### [facility] ([facility] [address] [place] [address] MCH (RBC) [Entitic mass] 30.8 pg Normal 27.0-33.0 [facility] Comment on above: Performed By: #### L [id number] #### [facility] ([facility] [address] [place] [address] MCV (RBC) [Entitic vol] 92.3 fL Normal 82.0-98.0 [facility] Comment on above: Performed By: #### L [id number] #### [facility] ([facility]) [address] [place] [address] PLATELETS (10*3/UL) IN BLOOD AUTOMATED COUNT 115 10*3/uL Low 150-400 [facility] Comment on above: Performed By: #### L [id number] #### [facility] ([facility]) [address] [place] [address] RBC (Bld) [#/Vol] 3.90 10*6/uL Low 4.20-5.70 [facility] Comment on above: Performed By: #### L [id number] #### [facility] ([facility] [address] [place] [address] WBC (Bld) [#/Vol] 3.68 10*3/uL Low 4.00-10.60 [facility] Comment on above: Performed By: #### L [id number] #### [facility] ([facility] [address] [place] [address] Follow-Upon 08-03-2024 Follow-Up [id number] Kyler Richard 1940 M Date Provider Department Center 08/03/2024 EdytaDEBIOLGA [facility] No family history on file Level of Service:13667 LA OFFICE/OUTPATIENT ESTABLISHED LOW MDM 20 MIN Normal [facility] Telephoneon 07-27-2024 Telephone [id number] Kyler Richard 1940 M Date Provider Department Center 07/27/2024 KellyJANENEOLGA [facility] No family history on file Normal [facility] Urology Office/Clinic Noteon 07-21-2024 Urology Office/Clinic Note Urology Office/Clinic Note History of Present Illness I have reviewed and verified the staff HPI to be accurate for this encounter. Portions of this record may have been created with voice recognition artificial intelligence software, specifically [employer], [employer] and or [employer]. Substitutions may have occurred due to the inherent limitations of voice recognition and artificial intelligence software. Physical Exam General: Well developed, well nourished, in no acute distress. Pt Assessment/Plan PRW pt 1. Bacteremia due to methicillin resistant Staphylococcus aureus (R78.81: Bacteremia) [facility] ER 07/05/2024 due to hematuria, possible More catheter obstruction. 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 Patient was discharged and returned via ambulance next morning and was transferred to [facility] at that time. Admitted to [facility] 07/06/2024 -Plavix was discontinued, three-way More placed with CBI. Blood cultures at this time positive for MRSA, thought to be secondary to urine source. 07/20/2024 ID consult w/ Dr Olga Watters at [facility] -extend linezolid for 1 additional week to complete a full 3-week course, repeat blood cultures to be drawn on 07/21/24. If bacteremia persist, plan to evaluate for other sources including repeat imaging. Patient does have follow-up with infectious disease scheduled 08/03/2024. Pt reports complete resolution of hematuria over the last week. Reports that the last 3-4 days he is doing very well, feeling all around better than previously. Denies any fevers, chills, pain. Advised to continue close f/u w/ ID as scheduled to ensure resolution of MRSA bacteremia. Increase fluid intake, avoid bladder irritants ER for fever, NV, severe flank pain, inability to urinate He verbalizes understanding. Pt inquires about cath change today. Would be happy to do while in office, but can be put off for another 2 weeks d/t recent exchange while inpatient. Pt prefers to hold off at this time. 2. Urinary retention (R33.9: Retention of urine, unspecified) last cath change 07/07/24 at [facility] Pt due for cath change the week of 08/03/24 Methicillin resistant Staphylococcus aureus infection as the cause of diseases classified elsewhere (B95.62: Methicillin resistant Staphylococcus aureus infection as the cause of diseases classified elsewhere) Follow-up No qualifying data available Patient Education Antibiotic Medicine, Adult Problem List/Past Medical History Ongoing Antiplatelet or antithrombotic long-term use Bacteremia due to methicillin resistant Staphylococcus aureus BMI 36.0-36.9,adult BPH with urinary obstruction Cholelithiases Elevated cholesterol Gross hematuria History of UTI Hydrocele Hypertension Kidney stone Left retinal detachment MRSA (methicillin resistant staph aureus) culture positive Nocturia Pericarditis Scrotal cyst Sleep apnea Spermatocele [...] 2% ophthalmic solution, 1 drop(s), OPTH, TID fluticasone Nasal 0.05 mg/inh [place] hyoscyamine 0.125 mg sublingual Tab latanoprost ophthalmic 0.005% solution, 1 drop(s), OPTH, Once a day (at bedtime) lisinopril 10 mg oral tablet Lopressor 25 mg oral tablet, 25 mg= 1 tab(s), Oral, Daily Multi Vitamin+ Rhopressa 0.02% ophthalmic solution tamsulosin 0.4 mg Cap, 0.4 mg= 1 cap(s), BID timolol Opth 0.5% Yvette 5 mL Vascepa 1 g oral capsule Allergies levoFLOXacin (Irritation) Social History Alcohol - Denies Alcohol Use, 03/13/2019 Tobacco - Denies Tobacco Use, 03/13/2019 Never (less than 100 in lifetime) Tobacco Use:. Never Smokeless Tobacco Use:. Household tobacco concerns: No. Yes, 06/22/2024 Family History Heart disease: Mother. Immunizations Vaccine Date Status influenza virus vaccine, inactivated 05/24/2022 Recorded SARSCoV2 mRNA(llnhkvzos-xzwu-uz cros) vac 04/20/2022 Recorded SARS-CoV-2 (COVID-19) mRNA BNT-162b2 vax 06/19/2021 Recorded influenza virus vaccine, inactivated 06/01/2021 Recorded influenza virus vaccine, inactivated 05/23/2021 Recorded SARS-CoV-2 (COVID-19) mRNA BNT-162b2 vax 11/10/2020 Recorded SARS-CoV-2 (COVID-19) mRNA BNT-162b2 vax 10/20/2020 Recorded zoster vaccine, inactivated 08/04/2020 Recorded SARS-CoV-2 (COVID-19) Ad26 vaccine 07/06/2020 Recorded influenza virus vaccine (more content not included)... Normal [facility] Comment on above: Result Comment: Elec tronically Signed By: KIM Lino APRN, [place] X\.jeffy\Date and Time Signed: 07/21/24 12:21 EST CBC WITH AUTO DIFFERENTIALon 07-20-2024 Basophils (Bld) [#/Vol] 0.04 10*3/uL Normal 0.00-0.20 [facility] Comment on above: Performed By: #### L [id number] #### [facility] ([facility]) [address] [place] [address] Basophils/100 WBC (Bld) 0.6 % Normal 0.0-1.0 [facility] Comment on above: Performed By: #### L [id number] #### [facility] ([facility]) [address] [place] [address] Eosinophils (Bld) [#/Vol] 0.31 10*3/uL Normal 0.00-0.50 [facility] Comment on above: Performed By: #### L [id number] #### [facility] ([facility]) [address] [place] [address] Eosinophils/100 WBC (Bld) 4.7 % Normal 0.0-6.0 [facility] Comment on above: Performed By: #### L [id number] #### [facility] ([facility] [address] [place] [address] Erythrocyte distribution width (RBC) [Ratio] 13.5 % Normal 11.5-15.0 [facility] Comment on above: Performed By: #### L [id number] #### [facility] ([facility] [address] [place] [address] ERYTHROCYTE MEAN CORPUSCULAR HEMOGLOBIN CONCENTRATION (G/DL) BY AUTOMATED 33.0 g/dL Normal 32.0-35.0 [facility] Comment on above: Performed By: #### L [id number] #### [facility] ([facility] [address] [place] [address] Hematocrit (Bld) [Volume fraction] 40.3 % Normal 39.0-55.0 [facility] Comment on above: Performed By: #### L [id number] #### [facility] ([facility]) [address] [place] [address] Hemoglobin (Bld) [Mass/Vol] 13.3 g/dL Normal 13.0-17.0 [facility] Comment on above: Performed By: #### L [id number] #### [facility] ([facility]) [address] [place] [address] Immature granulocytes (Bld) [#/Vol] 0.03 10*3/uL Normal 0.00-0.20 [facility] Comment on above: Performed By: #### L [id number] #### [facility] ([facility]) [address] [place] [address] Immature granulocytes/100 WBC (Bld) 0.5 % Normal 0.0-1.0 [facility] Comment on above: Performed By: #### L [id number] #### [facility] ([facility] [address] [place] [address] Lymphocytes (Bld) [#/Vol] 2.23 10*3/uL Normal 1.20-4.00 [facility] Comment on above: Performed By: #### L [id number] #### [facility] ([facility]) [address] [place] [address] Lymphocytes/100 WBC (Bld) 34.0 % Normal 20.0-45.0 [facility] Comment on above: Performed By: #### L [id number] #### [facility] ([facility]) [address] [place] [address] MCH (RBC) [Entitic mass] 31.0 pg Normal 27.0-33.0 [facility] Comment on above: Performed By: #### L [id number] #### [facility] ([facility] [address] [place] [address] MCV (RBC) [Entitic vol] 93.9 fL Normal 82.0-98.0 [facility] Comment on above: Performed By: #### L [id number] #### [facility] ([facility] [address] [place] [address] Monocytes (Bld) [#/Vol] 0.42 10*3/uL Normal 0.10-1.00 [facility] Comment on above: Performed By: #### L [id number] #### [facility] ([facility] [address] [place] [address] Monocytes/100 WBC (Bld) 6.4 % Normal 5.0-12.0 [facility] Comment on above: Performed By: #### L [id number] #### [facility] ([facility]) [address] [place] [address] Neutrophils (Bld) [#/Vol] 3.53 10*3/uL Normal 1.60-7.60 [facility] Comment on above: Performed By: #### L [id number] #### [facility] ([facility]) [address] [place] [address] Neutrophils/100 WBC (Bld) 53.8 % Normal 40.0-72.0 [facility] Comment on above: Performed By: #### L [id number] #### [facility] ([facility]) [address] N[place]EL[place]AR [id number] NRBC (PER 100 WBCS) BY AUTOMATED COUNT 0.0 % Normal 0 [facility] Comment on above: Performed By: #### L [id number] #### [facility] ([facility]) [address] [place] [address] PLATELETS (10*3/UL) IN BLOOD AUTOMATED COUNT 255 10*3/uL Normal 150-400 [facility] Comment on above: Performed By: #### L [id number] #### [facility] ([facility]) [address] [place] [address] RBC (Bld) [#/Vol] 4.29 10*6/uL Normal 4.20-5.70 [facility] Comment on above: Performed By: #### L [id number] #### [facility] ([facility]) [address] [address] WBC (Bld) [#/Vol] 6.56 10*3/uL Normal 4.00-10.60 [facility] Comment on above: Performed By: #### L [id number] #### [facility] ([facility]) [address] [address] Follow-Upon 07-20-2024 Follow-Up [id number] Kyler Richard 1940 M Date Provider Department Center 07/20/2024 OLGA JEREZ C INF Chauncey Heal No family history on file Level of Service:72625 LA OFFICE/OUTPATIENT ESTABLISHED LOW MDM 20 MIN Normal [facility] Labon 07-20-2024 Lab [id number] Kyler Richard 1940 M Date Provider Department Center 07/20/2024 2244-[facility] MP LAB RESOURCE MP DRAW Medical Pavi No family history on file Normal [facility] 36on 07-17-2024 36 Left voice message f or patient to contact us. Provider would like patient to get a cbc prior to visit on Saturday07/18/2024. Left voice mail x 2. Contacted [facility] patient [facility] & they will draw CBC before appt. On Saturday per Provider. Order faxed & confirmation received. Normal [facility] BASIC METABOLIC PANELon 06-26 Anion gap [Moles/Vol] 9 mmol/L Normal 7-20 [facility] Comment on above: Performed By: #### L [id number] #### [facility] ([facility]) [address] [place] [address] Calcium [Mass/Vol] 7.8 mg/dL Low 8.6-10.3 [facility] Comment on above: Performed By: #### L [id number] #### [facility] ([facility]) [address] [place] [address] Chloride [Moles/Vol] 106 mmol/L Normal 98-107 [facility] Comment on above: Performed By: #### L [id number] #### [facility] ([facility]) [address] [place] [address] CO2 [Moles/Vol] 25 mmol/L Normal 21-31 [facility] Comment on above: Performed By: #### L [id number] #### [facility] ([facility]) [address] [place] [address] Creatinine [Mass/Vol] 0.65 mg/dL Low 0.70-1.30 [facility] Comment on above: Performed By: #### L [id number] #### [facility] ([facility]) [address] [place] [address] GLOMERULAR FILTRATION RATE ML/MIN/1.73 SQ M.PREDICTED 94.7 mL/min/1.73m*2 Normal >60.0 [facility] Comment on above: Result Comment: The [facility]???s estimated glomerular filtration rate (eGFR) will no longer include consideration of race in its calculation. The National Kidney Foundation???s eGFR Task Force developed new recommendations for the estimation of the glomerular filtration rate in the [place] They recommend immediate implementation of the new equation refit without the race variable in all laboratories because the calculation does not include race. In addition to not including race in the calculation and reporting, it included diversity in its development, and has acceptable performance characteristics and potential consequences that do not disproportionately affect any one group of individuals. Performed By: #### L [id number] #### [facility] ([facility]) [address] [facility] [place] [address] Glucose [Mass/Vol] 116 mg/dL High 70-100 [facility] Comment on above: Performed By: #### L [id number] #### [facility] ([facility]) [address] [facility] [place] [address] Potassium [Moles/Vol] 3.2 mmol/L Low 3.5-5.1 [facility] Comment on above: Performed By: #### L [id number] #### [facility] ([facility]) [address] [facility] [place] [address] Sodium [Moles/Vol] 137 mmol/L Normal 136-145 [facility] Comment on above: Performed By: #### L [id number] #### [facility] ([facility]) [address] [facility] [address] Urea nitrogen [Mass/Vol] 21 mg/dL Normal 7-25 [facility] Comment on above: Performed By: #### L [id number] #### [facility] ([facility]) [address] [facility] [place] [address] UREA NITROGEN/CREATININE (MASS RATIO) IN SER/PLAS 32.3 Normal [facility] Comment on above: Performed By: #### L [id number] #### [facility] ([facility]) [address] [place] [address] CBCon 07-13-2024 Erythrocyte distribution width (RBC) [Ratio] 13.7 % Normal 11.5-15.0 [facility] Comment on above: Performed By: #### L [id number] #### [facility] ([facility] [address] [place] [address] ERYTHROCYTE MEAN CORPUSCULAR HEMOGLOBIN CONCENTRATION (G/DL) BY AUTOMATED 34.3 g/dL Normal 32.0-35.0 [facility] Comment on above: Performed By: #### L [id number] #### [facility] ([facility]) [address] [place] [address] Hematocrit (Bld) [Volume fraction] 35.6 % Low 39.0-55.0 [facility] Comment on above: Performed By: #### L [id number] #### [facility] ([facility]) [address] [place] [address] Hemoglobin (Bld) [Mass/Vol] 12.2 g/dL Low 13.0-17.0 [facility] Comment on above: Performed By: #### L [id number] #### [facility] ([facility]) [address] [place] [address] MCH (RBC) [Entitic mass] 31.4 pg Normal 27.0-33.0 [facility] Comment on above: Performed By: #### L [id number] #### [facility] ([facility]) [address] [place] [address] MCV (RBC) [Entitic vol] 91.5 fL Normal 82.0-98.0 [facility] Comment on above: Performed By: #### L [id number] #### [facility] ([facility]) [address] [place] [address] PLATELETS (10*3/UL) IN BLOOD AUTOMATED COUNT 193 10*3/uL Normal 150-400 [facility] Comment on above: Performed By: #### L [id number] #### [facility] ([facility]) [address] [place] [address] RBC (Bld) [#/Vol] 3.89 10*6/uL Low 4.20-5.70 [facility] Comment on above: Performed By: #### L [id number] #### [facility] ([facility]) [address] [place] [address] WBC (Bld) [#/Vol] 5.59 10*3/uL Normal 4.00-10.60 [facility] Comment on above: Performed By: #### L [id number] #### [facility] ([facility] [address] [place] [address] CONSULTon 07-13-2024 CONSULT Discharge Update Plannin:42pm SW spoke with patient face to face this morning. Patient has SW consult for [facility]. Patient is currently active with [facility], return referral sent and they are accepting. No further OTM needs discovered at this time. [facility] NURSNOTEon 07-13-2024 NURSNOTE Discharge instructio ns provided to pt, , & daughter including new medications, wound care, more care, diet, f/u appointments, & HHC. All questions and concerns were addressed to pt & family's satisfaction. A copy of the discharge instructions was prvided to ppt per protocol. No further needs noted. iMeds notified that pt is ready for discharge, & that the copay is ok with pt. Transport notified that pt needs w/c transport to the front lobby for discharge. Normal [facility] NURSNOTE Per ID pt will be discharged on oral antibiotics no need to place PICC at this time, RN aware [facility] NURSNOTE PICC team saw order for PICC line, PICC team reached out to ID department making sure final recommendations were complete on discharge IV medication, once PICC team aware of plan then PICC line can be placed [facility] 30on 07-12-2024 30 Problem: Pain - Adul t Goal: Verbalizes/displays adequate comfort level or baseline comfort level Outcome: Progressing Problem: Safety - Adult Goal: Free from fall injury Outcome: Progressing Problem: Discharge Planning Goal: Discharge to home or other facility with appropriate resources Outcome: Progressing Problem: Chronic Conditions and Co-morbidities Goal: Patient's chronic conditions and co-morbidity symptoms are monitored and maintained or improved Outcome: Progressing The patient is Moderately Stable - Low risk of patient condition declining or worsening The patient's goals for the shift include Rest The clinical goals for the shift include VSS, comfort, safety Over the shift, the patient did not make progress toward the following goals. Barriers to progression include pain. Recommendations to address these barriers include frequent pain reassessments, pain medication administration as ordered. Normal [facility] 30 Daily Case Managemen t Update Multidisciplinary rounds have been completed. Barriers to Discharge: Needs 4 weeks of IV vanco. Midline being placed today. Need final ID script and referral to bioscripts. Patient discharge ready tomorrow. Plan is home with [facility]. Diet: Dietary Orders (From admission, onward) Start Ordered 07/11/24 1124 Special Kitchen Request Once Comments: Patient would like a tuna salad sand which, red jello, and applesauce, coffee with cream and sugar, and sprite. Thank you! 07/11/24 1127 07/06/24 1347 Regular Diet Heart Healthy/HTN, CABG,Stroke, (2gNA, low fat, low cholesterol) Diet effective now Question Answer Comment Room Service? Yes Fat restriction: Heart Healthy/HTN, CABG,Stroke, (2gNA, low fat, low cholesterol) 07/06/24 1347 Physician Expected Discharge Date: 07/10/2024 Discharge Delays: PT Six Click Score: 16 OT Six Click Score: 17 PT Recommendations: longterm facility placement (wants to go home and would benefit from home PT with assist if he chooses to go that route) OT Recommendations: Home OT (w/ assist) Is expected discharge disposition appropriate for patient?: Yes New Consults: Ancillary Consults (From admission, onward) Start Ordered 07/10/24 192 Inpatient consult to Wound/Ostomy Nurse Once Comments: Consult Wound Nurse for at-risk for PU, stage 1, or stage 2. For all stage 3 ulcers, stage 4, unstageable, DTI, infected PU, and lower extremity ulcers use the Inpatient consult to Vascular Wound Care Provider: (Not yet assigned) Question Answer Comment Consult for: Wound Reason for Consult? pressure injury on foreskin of penis 07/10/24 192 Therapy Orders (From admission, onward) Start Ordered 07/06/24 1250 PT eval and treat Until therapy completed Question: Reason for PT? Answer: debility 07/06/24 1250 07/06/24 1250 OT eval and treat Until therapy completed Question: Reason for OT? Answer: debility 07/06/24 1250 Normal [facility] VANCOMYCIN, TROUGHon 024 VANCOMYCIN (UG/ML) IN SER/PLAS - TROUGH 6.3 ug/mL Normal 5.0-20.0 [facility] Comment on above: Order Comment: Pleas e draw before 1700 vancomycin dose Performed By: #### L [id number] #### [facility] ([facility]) [address] [place] [address] 30on 07-11-2024 30 The patient is Moderately Stable - Low risk of patient condition declining or worsening The patient's goals for the shift include comfort The clinical goals for the shift include comfort Problem: Pain - Adult Goal: Verbalizes/displays adequate comfort level or baseline comfort level Outcome: Not Progressing Problem: Safety - Adult Goal: Free from fall injury Outcome: Not Progressing Problem: Discharge Planning Goal: Discharge to home or other facility with appropriate resources Outcome: Not Progressing Problem: Chronic Conditions and Co-morbidities Goal: Patient's chronic conditions and co-morbidity symptoms are monitored and maintained or improved Outcome: Not Progressing Normal [facility] BASIC METABOLIC PANELon 06-26 Anion gap [Moles/Vol] 11 mmol/L Normal 7-20 [facility] Comment on above: Performed By: #### L [id number] #### [facility] ([facility]) [address] [place] [address] Calcium [Mass/Vol] 7.8 mg/dL Low 8.6-10.3 [facility] Comment on above: Performed By: #### L [id number] #### [facility] ([facility]) [address] [place] [address] Chloride [Moles/Vol] 107 mmol/L Normal 98-107 [facility] Comment on above: Performed By: #### L [id number] #### [facility] ([facility]) [address] [place] [address] CO2 [Moles/Vol] 22 mmol/L Normal 21-31 [facility] Comment on above: Performed By: #### L [id number] #### [facility] ([facility]) [address] [place] [address] Creatinine [Mass/Vol] 0.65 mg/dL Low 0.70-1.30 [facility] Comment on above: Performed By: #### L [id number] #### [facility] ([facility]) [address] [place] [address] GLOMERULAR FILTRATION RATE ML/MIN/1.73 SQ M.PREDICTED 94.7 mL/min/1.73m*2 Normal >60.0 [facility] Comment on above: Result Comment: The [facility]???s estimated glomerular filtration rate (eGFR) will no longer include consideration of race in its calculation. The National Kidney Foundation???s eGFR Task Force developed new recommendations for the estimation of the glomerular filtration rate in the [place] They recommend immediate implementation of the new equation refit without the race variable in all laboratories because the calculation does not include race. In addition to not including race in the calculation and reporting, it included diversity in its development, and has acceptable performance characteristics and potential consequences that do not disproportionately affect any one group of individuals. Performed By: #### L [id number] #### [facility] ([facility]) [address] [address] Glucose [Mass/Vol] 124 mg/dL High 70-100 [facility] Comment on above: Performed By: #### L [id number] #### [facility] ([facility]) [address] [address] Potassium [Moles/Vol] 3.7 mmol/L Normal 3.5-5.1 [facility] Comment on above: Performed By: #### L [id number] #### [facility] ([facility]) [address] [place] [address] Sodium [Moles/Vol] 136 mmol/L Normal 136-145 [facility] Comment on above: Performed By: #### L [id number] #### [facility] ([facility]) [address] [place] [address] Urea nitrogen [Mass/Vol] 19 mg/dL Normal 7-25 [facility] Comment on above: Performed By: #### L [id number] #### [facility] ([facility]) [address] [place] [address] UREA NITROGEN/CREATININE (MASS RATIO) IN SER/PLAS 29.2 Normal [facility] Comment on above: Performed By: #### L [id number] #### [facility] ([facility]) [address] [place] [address] BLOOD CULTUREon 07-11-2024 Bacteria identified Cx Nom (Bld) No growth at 5 days Normal [facility] Comment on above: Performed By: #### L [id number] ####[facility] ([facility])[address] [place] [address] C-REACTIVE PROTEINon 024 C REACTIVE PROTEIN (MG/L) IN SER/PLAS 185.4 mg/L High <=5.0 [facility] Comment on above: Result Comment: Test ing performed using a new methodology, turbidimetry. Normal ranges have been updated. Old normal range was <8 mg/L. Performed By: #### L [id number] #### [facility] ([facility]) [address] [place] [address] CKon 07-11-2024 CREATINE KINASE (U/L) IN SER/PLAS 21.0 U/L Low 30.0-223.0 [facility] Comment on above: Performed By: #### L [id number] #### [facility] ([facility]) [address] [place] [address] CONSULTon 07-11-2024 CONSULT -- Attestation signed by Marv Herrera MD at 07/11/2024 6:01 PM I personally saw this patient on the day of the encounter, performed the parekh portion(s) of the service and participated in the management and confirm the resident's documentation. Please note there may be an additional personal documentation from me. MRI cervical, thoracic and lumbar spine reviewed, no evidence of infection. L1-2 disc degeneration, prolapse with extruded disc . No indication for urgent surgical management, mobilize as tolerated Follow up in the clinic Orthopaedic Spine Surgery Subjective No chief complaint on file. Kyler Richard is a 83 y.o. male for whom orthopaedics was consulted for concerns of possible lumbar epidural abscess vs. discitis at L1/2 on MR. He ambulates with a walker and endorses having years of lower back pain that is waxing and waning in intensity. He states that he has not had any recent flare up of his back pain. However, 3 months ago, he did undergo a lumbar nerve ablation in [place]. He cannot recall who did the procedure or at what level. History History reviewed. No pertinent surgical history. History reviewed. No pertinent past medical history. Pertinent review of systems negative except for what is documented in the HPI. Objective General: Vitals: 07/11/24 0730 BP: 148/70 Pulse: 58 Resp: Temp: 36.7 ???C (98.1 ???F) SpO2: 97% General: AOx3, no distress Resp: unlabored breathing Ortho spine musculoskeletal examination: No tenderness No instability No visible deformity Upper Extremities: Sensation: intact C5, C6, C7, C8, T1 Strength: Shoulder abduction 5/5 Biceps 5/5 Triceps 5/5 Wrist Flexion 5/5 Wrist Extension 5/5 Lumbricals 5/5 Reflexes 2+ Shah: Negative Romberg: Not examined Lower Extremities: Sensation: intact L3, L4, L5, S1 Strength: Hip flexion 5/5 Knee Flexion 5/5 Knee Extension 5/5 EHL 5/5 Plantarflexion 5/5 Dorsiflexion 5/5 Reflexes 2+ LABS Results from last 7 days Lab Units 07/11/24 0418 07/10/24 0538 GLUCOSE mg/dL 124* 109* SODIUM mmol/L 136 134* POTASSIUM mmol/L 3.7 3.2* CO2 mmol/L 22 25 CHLORIDE mmol/L 107 104 BUN mg/dL 19 20 CREATININE mg/dL 0.65* 0.73 CALCIUM mg/dL 7.8* 7.9* Results from last 7 days Lab Units 07/10/24 0538 07/08/24 0920 WBC AUTO 10*3/uL 6.21 12.11* HEMOGLOBIN g/dL 12.2* 12.6* HEMATOCRIT % 35.9* 37.4* PLATELETS AUTO 10*3/uL 147* 151 Imaging No X-ray results found for the past [address] results found for the past 24 hours MR cervical spine w and wo contrast Result Date: 07/10/2024 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 No acute findings and no imaging evidence for epidural abscess or discitis or osteomyelitis. Electronically signed: Jarvis Barth. MR thoracic spine w and wo contrast Result Date: 07/10/2024 Disc disease. No stenosis and no imaging evidence for discitis or epidural abscess or osteomyelitis within the thoracic levels. Electronically signed: Jarvis Barth. 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 * Most notably there is a large disc herniation with sequestered extruded disc material L1-2 level with severe central canal stenosis.There is some enhancement within the disc space at L1-2 level making it difficult to completely exclude discitis and epidural abscess formation but there is no disc space irregularity to suggest an aggressive discitis. Electronically signed: Jarvis Barth. Assessment/Plan Kyler Richard is a 83 y.o. male for whom orthopaedics was consulted due to MR findings of possible lumbar epidural abscess vs. discitis at L1/2. Findings are more consistent with prolapsed disc at L1/L2 and degenerative changes, not infectious. Plan: - No orthopaedic intervention indicated at this time - All other care per primary & consultants - Will obtain ESR/CRP - Patient can follow up with Dr. Herrera in the clinic on an as-needed basis This plan was discussed in detail with Dr. Herrera. Ryder Ferrari MD, PGY-1 Orthopaedic Surgery Resident Normal [facility] SEDIMENTATION RATEon 024 SEDIMENTATION RATE, ERYTHROCYTE 94 mm/hr High <20 [facility] Comment on above: Performed By: #### L [id number] #### [facility] ([facility]) [address] [place] [address] 30on 07-10-2024 30 The patient is Moderately Stable - Low risk of patient condition declining or worsening The patient's goals for the shift include rest The clinical goals for the shift include comfort Problem: Pain - Adult Goal: Verbalizes/displays adequate comfort level or baseline comfort level Outcome: Not Progressing Problem: Safety - Adult Goal: Free from fall injury Outcome: Not Progressing Problem: Discharge Planning Goal: Discharge to home or other facility with appropriate resources Outcome: Not Progressing Problem: Chronic Conditions and Co-morbidities Goal: Patient's chronic conditions and co-morbidity symptoms are monitored and maintained or improved Outcome: Not Progressing Normal [facility] 30 Daily Case Managemen t Update Multidisciplinary rounds have been completed. Barriers to Discharge: 07/10 Hematuria, MRSA positive Ucx, await sensitivites. Continue IV vanco. More(maintain on discharge). Family declines SNF, plan to return home with [facility]. Diet: Dietary Orders (From admission, onward) Start Ordered 07/06/24 1347 Regular Diet Heart Healthy/HTN, CABG,Stroke, (2gNA, low fat, low cholesterol) Diet effective now Question Answer Comment Room Service? Yes Fat restriction: Heart Healthy/HTN, CABG,Stroke, (2gNA, low fat, low cholesterol) 07/06/24 1347 Physician Expected Discharge Date: 07/08/2024 Discharge Delays: PT Six Click Score: 16 OT Six Click Score: 17 PT Recommendations: longterm facility placement (Pt likely to refuse placement. In this case, recommend home with assist and home PT. Pt will also need to successfully perform stairs) OT Recommendations: Home OT (w/ assist) New Consults: Therapy Orders (From admission, onward) Start Ordered 07/06/24 1250 PT eval and treat Until therapy completed Question: Reason for PT? Answer: debility 07/06/24 1250 07/06/24 1250 OT eval and treat Until therapy completed Question: Reason for OT? Answer: debility 07/06/24 1250 Normal [facility] BASIC METABOLIC PANELon 06-26 Anion gap [Moles/Vol] 8 mmol/L Normal 7-20 [facility] Comment on above: Performed By: #### L [id number] #### [facility] ([facility]) [address] [place] [address] Calcium [Mass/Vol] 7.9 mg/dL Low 8.6-10.3 [facility] Comment on above: Performed By: #### L [id number] #### [facility] ([facility]) [address] [place] [address] Chloride [Moles/Vol] 104 mmol/L Normal 98-107 [facility] Comment on above: Performed By: #### L [id number] #### [facility] ([facility]) [address] [place] [address] CO2 [Moles/Vol] 25 mmol/L Normal 21-31 [facility] Comment on above: Performed By: #### L [id number] #### [facility] ([facility]) [address] [place] [address] Creatinine [Mass/Vol] 0.73 mg/dL Normal 0.70-1.30 [facility] Comment on above: Performed By: #### L [id number] #### [facility] ([facility]) [address] [place] [address] GLOMERULAR FILTRATION RATE ML/MIN/1.73 SQ M.PREDICTED 91.4 mL/min/1.73m*2 Normal >60.0 [facility] Comment on above: Result Comment: The [facility]???s estimated glomerular filtration rate (eGFR) will no longer include consideration of race in its calculation. The National Kidney Foundation???s eGFR Task Force developed new recommendations for the estimation of the glomerular filtration rate in the [place] They recommend immediate implementation of the new equation refit without the race variable in all laboratories because the calculation does not include race. In addition to not including race in the calculation and reporting, it included diversity in its development, and has acceptable performance characteristics and potential consequences that do not disproportionately affect any one group of individuals. Performed By: #### L [id number] #### [facility] ([facility]) [address] [place] [address] Glucose [Mass/Vol] 109 mg/dL High 70-100 [facility] Comment on above: Performed By: #### L [id number] #### [facility] ([facility]) [address] [place] [address] Potassium [Moles/Vol] 3.2 mmol/L Low 3.5-5.1 [facility] Comment on above: Performed By: #### L [id number] #### [facility] ([facility]) [address] [place] [address] Sodium [Moles/Vol] 134 mmol/L Low 136-145 [facility] Comment on above: Performed By: #### L [id number] #### [facility] ([facility]) [address] [place] [address] Urea nitrogen [Mass/Vol] 20 mg/dL Normal 7-25 [facility] Comment on above: Performed By: #### L [id number] #### [facility] ([facility]) [address] [place] [address] UREA NITROGEN/CREATININE (MASS RATIO) IN SER/PLAS 27.4 Normal [facility] Comment on above: Performed By: #### L [id number] #### [facility] ([facility]) [address] [place] [address] BLOOD CULTUREon 07-10-2024 Bacteria identified Cx Nom (Bld) No growth at 5 days Normal [facility] Comment on above: Performed By: #### L [id number] ####[facility] ([facility])[address] [place] [address] Bacteria identified Cx Nom (Bld) STAPHYLOCOCCUS AUREUS METHICILLIN (OXACILLIN) RESISTANT Critically abnormal [facility] Comment on above: Result Comment: Meth icillin-Resistant Staphylococcus aureus For Susceptibility Results Please Refer to Performed By: #### L [id number] ####[facility] ([facility])[address] [place] [address] GRAM STAIN RESULT Positive Abnormal [facility] Comment on above: Performed By: #### L [id number] ####[facility] ([facility])[address] [place] [address] CBC WITH AUTO DIFFERENTIALon 07-10-2024 Basophils (Bld) [#/Vol] 0.03 10*3/uL Normal 0.00-0.20 [facility] Comment on above: Performed By: #### L [id number] #### [facility] ([facility]) [address] [place] [address] Basophils/100 WBC (Bld) 0.5 % Normal 0.0-1.0 [facility] Comment on above: Performed By: #### L [id number] #### [facility] ([facility]) [address] [place] [address] Eosinophils (Bld) [#/Vol] 0.06 10*3/uL Normal 0.00-0.50 [facility] Comment on above: Performed By: #### L [id number] #### [facility] ([facility]) [address] [place] [address] Eosinophils/100 WBC (Bld) 1.0 % Normal 0.0-6.0 [facility] Comment on above: Performed By: #### L [id number] #### [facility] ([facility]) [address] [facility] [place] [address] Erythrocyte distribution width (RBC) [Ratio] 13.4 % Normal 11.5-15.0 [facility] Comment on above: Performed By: #### L [id number] #### [facility] ([facility]) [address] [place] [address] ERYTHROCYTE MEAN CORPUSCULAR HEMOGLOBIN CONCENTRATION (G/DL) BY AUTOMATED 34.0 g/dL Normal 32.0-35.0 [facility] Comment on above: Performed By: #### L [id number] #### [facility] ([facility] [address] [place] [address] Hematocrit (Bld) [Volume fraction] 35.9 % Low 39.0-55.0 [facility] Comment on above: Performed By: #### L [id number] #### [facility] ([facility]) [address] [place] [address] Hemoglobin (Bld) [Mass/Vol] 12.2 g/dL Low 13.0-17.0 [facility] Comment on above: Performed By: #### L [id number] #### [facility] ([facility]) [address] [place] [address] Immature granulocytes (Bld) [#/Vol] 0.03 10*3/uL Normal 0.00-0.20 [facility] Comment on above: Performed By: #### L [id number] #### [facility] ([facility]) [address] [place] [address] Immature granulocytes/100 WBC (Bld) 0.5 % Normal 0.0-1.0 [facility] Comment on above: Performed By: #### L [id number] #### [facility] ([facility] [address] [place] [address] Lymphocytes (Bld) [#/Vol] 0.80 10*3/uL Low 1.20-4.00 [facility] Comment on above: Performed By: #### L [id number] #### [facility] ([facility] [address] [place] [address] Lymphocytes/100 WBC (Bld) 12.9 % Low 20.0-45.0 [facility] Comment on above: Performed By: #### L [id number] #### [facility] ([facility]) [address] [place] [address] MCH (RBC) [Entitic mass] 30.9 pg Normal 27.0-33.0 [facility] Comment on above: Performed By: #### L [id number] #### [facility] ([facility]) [address] [place] [address] MCV (RBC) [Entitic vol] 90.9 fL Normal 82.0-98.0 [facility] Comment on above: Performed By: #### L [id number] #### [facility] ([facility]) [address] [place] [address] Monocytes (Bld) [#/Vol] 0.58 10*3/uL Normal 0.10-1.00 [facility] Comment on above: Performed By: #### L [id number] #### [facility] ([facility]) [address] [place] [address] Monocytes/100 WBC (Bld) 9.3 % Normal 5.0-12.0 [facility] Comment on above: Performed By: #### L [id number] #### [facility] ([facility]) [address] [place] [address] Neutrophils (Bld) [#/Vol] 4.71 10*3/uL Normal 1.60-7.60 [facility] Comment on above: Performed By: #### L [id number] #### [facility] ([facility]) [address] [place] [address] Neutrophils/100 WBC (Bld) 75.8 % High 40.0-72.0 [facility] Comment on above: Performed By: #### L [id number] #### [facility] ([facility]) [address] [place] [address] NRBC (PER 100 WBCS) BY AUTOMATED COUNT 0.0 % Normal 0 [facility] Comment on above: Performed By: #### L [id number] #### [facility] ([facility]) [address] [place] [address] PLATELETS (10*3/UL) IN BLOOD AUTOMATED COUNT 147 10*3/uL Low 150-400 [facility] Comment on above: Performed By: #### L [id number] #### [facility] ([facility]) [address] [place] [address] RBC (Bld) [#/Vol] 3.95 10*6/uL Low 4.20-5.70 [facility] Comment on above: Performed By: #### L [id number] #### [facility] ([facility]) [address] [place] [address] WBC (Bld) [#/Vol] 6.21 10*3/uL Normal 4.00-10.60 [facility] Comment on above: Performed By: #### L [id number] #### [facility] ([facility]) [address] [facility] [place] [address] MR CERVICAL SPINE W AND WO C ONTRASTon 07-10-2024 MR CERVICAL SPINE W AND WO CONTRAST MR CERVICAL SPINE W AND WO CONTRAST 07/10/2024 1:51 PM CLINICAL INDICATIONS: Back pain and recurrent urinary tract infection PROCEDURE: Multiplanar multisequence images performed through the cervical spine without with IV contrast without complications FINDINGS: C2-3 shows moderate facet hypertrophy and minimal disc osteophyte complex without stenosis C3-4 shows moderate posterior disc bulging and facet hypertrophy with moderate central canal stenosis and moderate right-sided foraminal narrowing and mild left-sided foraminal narrowing C4-5 shows mild posterior disc osteophyte complex and facet hypertrophy with moderate central canal stenosis and severe bilateral foraminal narrowing C5-6 shows moderate posterior discussed by complex with mild central canal stenosis and moderate bilateral foraminal narrowing C6-7 shows moderate posterior discussed by complex and facet hypertrophy with moderate bilateral foraminal narrowing C7-T1 appropriate No pathologic enhancement or imaging evidence for discitis osteomyelitis or epidural abscess formation within the cervical spine Appropriate signal within the vertebra excepting for discogenic signal diffusely Appropriate signal within the posterior elements and cervical cord IMPRESSION: 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 No acute findings and no imaging evidence for epidural abscess or discitis or osteomyelitis. Electronically signed: Jarvis Barth. 8 Invalid Interpretation Code [facility] MR LUMBAR SPINE W AND WO CON TRASTon 07-10-2024 MR LUMBAR SPINE W AND WO CONTRAST History: Epidural abscess suspected Bacteremia, concern for abscess Bacteremia, concern for abscess Back pain and recurrent urinary tract infection Procedure: Multiplanar multisequence MR imaging performed through the lumbosacral spine without and with IV contrast without complications Findings: * L1-2 shows severe disc space narrowing and there is an oval structure protruding from the disc space inferiorly along the ventral aspect of L2 in the midline and extending to the right of midline. This has enhancement at its perimeter. This is likely a large disc herniation with sequestered disc fragment. This extends for a length of approximately 24 mm from superior to inferior. Diameter of the process in the axial plane is approximately 14 x 7 mm. Combined with facet hypertrophy at that level and results in severe central canal stenosis at the filum terminale. There is some enhancement within the disc space at L1-2 level making it difficult to completely exclude discitis and epidural abscess formation but there is no disc space irregularity to suggest an aggressive discitis. No foraminal narrowing * L2-3 shows mild posterior disc osteophyte complex and facet hypertrophy with moderate central canal stenosis. No foraminal narrowing * L3-4 shows mild posterior disc bulging and facet hypertrophy resulting in moderate central canal stenosis and mild bilateral foraminal narrowing * L4-5 shows moderate posterior disc bulging and facet hypertrophy with moderate central canal stenosis and mild bilateral foraminal narrowing * L5-S1 shows a moderate posterior disc protrusion eccentric to the left effacing the left S1 nerve root within the lateral recess and paracentral canal along with severe facet arthritis with moderate left paracentral canal stenosis and severe bilateral foraminal narrowing * There is discogenic signal within the vertebra at all levels. Appropriate signal within the posterior elements and distal cord IMPRESSION: * IMPRESSION: * Multilevel disc disease and facet arthropathy with multilevel stenosis detailed above. * Most notably there is a large disc herniation with sequestered extruded disc material L1-2 level with severe central canal stenosis.There is some enhancement within the disc space at L1-2 level making it difficult to completely exclude discitis and epidural abscess formation but there is no disc space irregularity to suggest an aggressive discitis. Electronically signed: Jarvis Barth. 8 Invalid Interpretation Code [facility] 30on 07-09-2024 30 The patient is Moderately Stable - Low risk of patient condition declining or worsening The patient's goals for the shift include rest The clinical goals for the shift include comfort Problem: Pain - Adult Goal: Verbalizes/displays adequate comfort level or baseline comfort level Outcome: Progressing Problem: Safety - Adult Goal: Free from fall injury Outcome: Progressing Problem: Chronic Conditions and Co-morbidities Goal: Patient's chronic conditions and co-morbidity symptoms are monitored and maintained or improved Outcome: Progressing Normal [facility] 30 The patient is Moderately Stable - Low risk of patient condition declining or worsening The patient's goals for the shift include dc The clinical goals for the shift include comfort Normal [facility] CONSULTon 07-09-2024 CONSULT -- Attestation signed by Semaj Sanchez MD at 07/09/2024 2:29 PM By using the attestations below, the signing clinician agrees that I have read and verify that the documentation has been personally reviewed by me and ensure that the documentation accurately reflects the encounter. GC: I personally saw this patient on the day of the encounter, performed the parekh portion(s) of the service and participated in the management and confirm the resident's documentation. Please note there may be an additional personal documentation from me. Additional Comments: Patient admitted with hematuria, more catheter placed, with irrigation urine cx grew MRSA, so blood cx done and those are also positive No recent procedures, last one was in February, He did have a fever He has left hip prosthesis, no pain And he is complaining of on/off neck pain If the pain persists we recommend MRI spine to rule out OM Please check ECHO Repeat blood cx tomorrow Continue with IV vancomycin Monitor Cr and vancomycin levels Semaj Sanchez MD Infectious diseases Infectious Diseases - Initial Consult Note - Patient name: Kyler Richard Patient Today's Date and Time: 07/09/2024, 2:10 PM Admission Date: 07/06/2024 Impression: #Bacteremia On 07/08 patient had a fever of 100.9 Increased WBC of 12.11 On 07/08, 2/2 positive blood cultures positive for gram positives cocci in clusters Echo done on 07/09 #MRSA UTI Increased WBC of 12.11 UA positive for nitrites, leukocytes, RBCS, and WBCs On 07/07 Positive urine culture for MRSA #BPH #Recurrent hematuria likely to recent urological procedure or chemoRT Recommendations: Continue Vancomycin until blood cultures and susceptibilities finalize MRSA bacteremia could be due more irrigation or vice a versa. MRSA UTI is very rare so we will continue to look for a source Monitor creatine due to Vanco's adverse effects Follow up echo to rule out endocarditis Subjective Reason for consultation / Chief complaint: MRSA bacteremia Referring Provider: Barrera Manley MD History of Present Illness Kyler Richard is a 83 y.o.-year-old male with a past medical history of CVA with right sided deficits, CAD s/p CABG 11/30, colon cancer s/p chemo/rt in the , and BPH, urethral stricture, recurrent UTIs, and recurrent hematuria who was transferred from [facility] for hematuria and clot retention. On arrival the patient was hemodynamically stable. Labs were significant for leukocytosis of 11.72. Urology was consulted and recommended hand irrigation for the more. By 07/07 his urine turned yellow, there were no clots in the more, and patient was getting ready to be discharged. However UA came back positive for nitrites, leukocytes, RBCs, and WBCs. WBC count started up trending to 12.11. Urine culture grew MRSA and patient was started on Vancomycin. On 07/09 blood cultures from the grew gram positive cocci in clusters and ID was consulted. On initial presentation the patient reports having hematuria for 12 hours before coming into the hospital. He described it as painless with no burning or suprapubic pain. He endorses using a more that gets changed every three weeks. The patient endoreses increased urinary frequency and mild back pain which could be attributed to chronic back issues. The patient asserts having urinary problems that started five years ago. He said the chemoRT he received was done in the early and developed bowel irritation and ED as a consequence. He denied any fevers, night sweats, nausea, vomiting, abdominal pain, SOB, chest pain, or cough, but did have chills. The patient denied having any lines prior to coming in and asserts the more was the only external source. Past Medical History: History reviewed. No pertinent past medical history. Past Surgical History: History reviewed. No pertinent surgical history. Medications: Scheduled: aspirin, 81 mg, oral, Daily atorvastatin, 80 mg, oral, Daily [Held by provider] heparin (porcine), 5,000 Units, subcutaneous, q12h PAYTON tamsulosin, 0.4 mg, oral, Daily vancomycin, 1.5 g, intravenous, q24h Infusions: Social History: Social History Socioeconomic History Marital status: Spouse name: None Number of children: None Years of education: None Highest education level: None Occupational History None Tobacco Use Smoking status: Never Smokeless tobacco: Never Substance and Sexual Activity Alcohol use: None Drug use: None Sexual activity: None Other Topics Concern None Social History Narrative None Social Determinants of Health Financial Resource Strain: Low Risk (07/09/2024) Overall Financial Resource Strain (CARDIA) Difficulty of Paying Living Expenses: Not hard at all Food [employer] (more content not included)... Normal [facility] NURSNOTEon 07-09-2024 NURSNOTE Patient sleeping in bed. No needs identified. Critical value of MRSA+ urine. Physician notified via [employer] chat. Isolation precautions being implemented. Will continue to monitor. [facility] 30on 07-08-2024 30 Daily Case Managemen t Update Multidisciplinary rounds have been completed. Barriers to Discharge: Await Cultures/Infx work-up, On Vanco IV, More(needs to maintain on discharge) Dc Plan : PT=SNF, OT=[facility], await pt's final decision : SNF placement (precert needed) vs Home with & continue [facility] OBV status : Medicare Outpatient Observation Notice (ROMERO letter) regarding medical necessity explained to patient. Copy of ROMERO Letter given to patient//daughter at bedside. Diet: Dietary Orders (From admission, onward) Start Ordered 07/06/24 2047 Regular Diet Heart Healthy/HTN, CABG,Stroke, (2gNA, low fat, low cholesterol) Diet effective now Question Answer Comment Room Service? Yes Fat restriction: Heart Healthy/HTN, CABG,Stroke, (2gNA, low fat, low cholesterol) 07/06/24 1347 Physician Expected Discharge Date: 07/08/2024 Discharge Delays: PT Six Click Score: 16 OT Six Click Score: 17 PT Recommendations: longterm facility placement (Pt likely to refuse placement. In this case, recommend home with assist and home PT. Pt will also need to successfully perform stairs) OT Recommendations: Home OT, With assist New Consults: Therapy Orders (From admission, onward) Start Ordered 07/06/24 1250 PT eval and treat Until therapy completed Question: Reason for PT? Answer: debility 07/06/24 1250 07/06/24 1250 OT eval and treat Until therapy completed Question: Reason for OT? Answer: debility 07/06/24 1250 Normal [facility] 30 The patient is Moderately Stable - Low risk of patient condition declining or worsening The patient's goals for the shift include rest The clinical goals for the shift include comfort Problem: Pain - Adult Goal: Verbalizes/displays adequate comfort level or baseline comfort level Outcome: Progressing Problem: Safety - Adult Goal: Free from fall injury Outcome: Progressing Problem: Discharge Planning Goal: Discharge to home or other facility with appropriate resources Outcome: Progressing Problem: Chronic Conditions and Co-morbidities Goal: Patient's chronic conditions and co-morbidity symptoms are monitored and maintained or improved Outcome: Progressing Normal [facility] BASIC METABOLIC PANELon 11- Anion gap [Moles/Vol] 9 mmol/L Normal 7-20 [facility] Comment on above: Performed By: #### L [id number] #### [facility] ([facility]) [address] [place] [address] Calcium [Mass/Vol] 8.4 mg/dL Low 8.6-10.3 [facility] Comment on above: Performed By: #### L [id number] #### [facility] ([facility]) [address] [place] [address] Chloride [Moles/Vol] 106 mmol/L Normal 98-107 [facility] Comment on above: Performed By: #### L [id number] #### [facility] ([facility]) [address] [place] [address] CO2 [Moles/Vol] 25 mmol/L Normal 21-31 [facility] Comment on above: Performed By: #### L [id number] #### [facility] ([facility]) [address] [place] [address] Creatinine [Mass/Vol] 0.67 mg/dL Low 0.70-1.30 [facility] Comment on above: Performed By: #### L [id number] #### [facility] ([facility]) [address] [place] [address] GLOMERULAR FILTRATION RATE ML/MIN/1.73 SQ M.PREDICTED 93.8 mL/min/1.73m*2 Normal >60.0 [facility] Comment on above: Result Comment: The [facility]???s estimated glomerular filtration rate (eGFR) will no longer include consideration of race in its calculation. The National Kidney Foundation???s eGFR Task Force developed new recommendations for the estimation of the glomerular filtration rate in the [place] They recommend immediate implementation of the new equation refit without the race variable in all laboratories because the calculation does not include race. In addition to not including race in the calculation and reporting, it included diversity in its development, and has acceptable performance characteristics and potential consequences that do not disproportionately affect any one group of individuals. Performed By: #### L [id number] #### [facility] ([facility]) [address] [place] [address] Glucose [Mass/Vol] 118 mg/dL High 70-100 [facility] Comment on above: Performed By: #### L [id number] #### [facility] ([facility]) [address] [facility] [place] [address] Potassium [Moles/Vol] 3.6 mmol/L Normal 3.5-5.1 [facility] Comment on above: Performed By: #### L [id number] #### [facility] ([facility]) [address] [facility] [place] [address] Sodium [Moles/Vol] 136 mmol/L Normal 136-145 [facility] Comment on above: Performed By: #### L [id number] #### [facility] ([facility]) [address] [place] [address] Urea nitrogen [Mass/Vol] 20 mg/dL Normal 7-25 [facility] Comment on above: Performed By: #### L [id number] #### [facility] ([facility]) [address] [place] [address] UREA NITROGEN/CREATININE (MASS RATIO) IN SER/PLAS 29.9 Normal [facility] Comment on above: Performed By: #### L [id number] #### [facility] ([facility]) [address] [place] [address] BLOOD CULTUREon 07-08-2024 Bacteria identified Cx Nom (Bld) STAPHYLOCOCCUS AUREUS METHICILLIN (OXACILLIN) RESISTANT Critically abnormal [facility] Comment on above: Order Comment: From a different site than #1. Result Comment: Meth icillin-Resistant Staphylococcus aureus For Susceptibility Results Please Refer to Performed By: #### L [id number] ####[facility] ([facility])[address] [place] [address] Clindamycin [Susc] >2 Resistant [facility] Comment on above: Performed By: #### L [id number] ####[facility] ([facility])[address] [place] [address] DAPTOmycin [Susc] <=1 Susceptible [facility] Comment on above: Performed By: #### L [id number] ####[facility] ([facility])[address] [place] [address] GRAM STAIN RESULT Positive Abnormal [facility] Comment on above: Order Comment: From a different site than #1. Performed By: #### L [id number] ####[facility] ([facility])[address] [place] [address] Linezolid [Susc] <=1 Susceptible [facility] Comment on above: Performed By: #### L [id number] ####[facility] ([facility])[address] [place] [address] Oxacillin [Susc] >2 Resistant [facility] Comment on above: Performed By: #### L [id number] ####[facility] ([facility])[address] [place] [address] Tetracycline [Susc] >8 Resistant [facility] Comment on above: Performed By: #### L [id number] ####[facility] ([facility])[address] [place] [address] Trimethoprim+Sulfam ethoxazole [Susc] <=0.5/9.5 Susceptible [facility] Comment on above: Performed By: #### L [id number] ####[facility] ([facility])[address] [place] [address] Vancomycin [Susc] <=0.5 Susceptible [facility] Comment on above: Performed By: #### L [id number] ####[facility] ([facility])[address] [place] [address] CBC WITH AUTO DIFFERENTIALon 07-08-2024 Basophils (Bld) [#/Vol] 0.03 10*3/uL Normal 0.00-0.20 [facility] Comment on above: Performed By: #### L [id number] #### [facility] ([facility]) [address] [place] [address] Basophils/100 WBC (Bld) 0.2 % Normal 0.0-1.0 [facility] Comment on above: Performed By: #### L [id number] #### [facility] ([facility]) [address] [place] [address] Eosinophils (Bld) [#/Vol] 0.07 10*3/uL Normal 0.00-0.50 [facility] Comment on above: Performed By: #### L [id number] #### [facility] ([facility] [address] [place] [address] Eosinophils/100 WBC (Bld) 0.6 % Normal 0.0-6.0 [facility] Comment on above: Performed By: #### L [id number] #### [facility] ([facility] [address] [place] [address] Erythrocyte distribution width (RBC) [Ratio] 14.0 % Normal 11.5-15.0 [facility] Comment on above: Performed By: #### L [id number] #### [facility] ([facility]) [address] [place] [address] ERYTHROCYTE MEAN CORPUSCULAR HEMOGLOBIN CONCENTRATION (G/DL) BY AUTOMATED 33.7 g/dL Normal 32.0-35.0 [facility] Comment on above: Performed By: #### L [id number] #### [facility] ([facility]) [address] [place] [address] Hematocrit (Bld) [Volume fraction] 37.4 % Low 39.0-55.0 [facility] Comment on above: Performed By: #### L [id number] #### [facility] ([facility]) [address] [place] [address] Hemoglobin (Bld) [Mass/Vol] 12.6 g/dL Low 13.0-17.0 [facility] Comment on above: Performed By: #### L [id number] #### [facility] ([facility]) [address] [place] [address] Immature granulocytes (Bld) [#/Vol] 0.10 10*3/uL Normal 0.00-0.20 [facility] Comment on above: Performed By: #### L [id number] #### [facility] ([facility] [address] [place] [address] Immature granulocytes/100 WBC (Bld) 0.8 % Normal 0.0-1.0 [facility] Comment on above: Performed By: #### L [id number] #### [facility] ([facility] [address] [place] [address] Lymphocytes (Bld) [#/Vol] 1.24 10*3/uL Normal 1.20-4.00 [facility] Comment on above: Performed By: #### L [id number] #### [facility] ([facility]) [address] [place] [address] Lymphocytes/100 WBC (Bld) 10.2 % Low 20.0-45.0 [facility] Comment on above: Performed By: #### L [id number] #### [facility] ([facility]) [address] [place] [address] MCH (RBC) [Entitic mass] 31.1 pg Normal 27.0-33.0 [facility] Comment on above: Performed By: #### L [id number] #### [facility] ([facility]) [address] [place] [address] MCV (RBC) [Entitic vol] 92.3 fL Normal 82.0-98.0 [facility] Comment on above: Performed By: #### L [id number] #### [facility] ([facility]) [address] [place] [address] Monocytes (Bld) [#/Vol] 0.90 10*3/uL Normal 0.10-1.00 [facility] Comment on above: Performed By: #### L [id number] #### [facility] ([facility]) [address] [place] [address] Monocytes/100 WBC (Bld) 7.4 % Normal 5.0-12.0 [facility] Comment on above: Performed By: #### L [id number] #### [facility] ([facility]) [address] [place] [address] Neutrophils (Bld) [#/Vol] 9.77 10*3/uL High 1.60-7.60 [facility] Comment on above: Performed By: #### L [id number] #### [facility] ([facility]) [address] [place] [address] Neutrophils/100 WBC (Bld) 80.8 % High 40.0-72.0 [facility] Comment on above: Performed By: #### L [id number] #### [facility] ([facility]) [address] [place] [address] NRBC (PER 100 WBCS) BY AUTOMATED COUNT 0.0 % Normal 0 [facility] Comment on above: Performed By: #### L [id number] #### [facility] ([facility] [address] [place] [address] PLATELETS (10*3/UL) IN BLOOD AUTOMATED COUNT 151 10*3/uL Normal 150-400 [facility] Comment on above: Performed By: #### L [id number] #### [facility] ([facility] [address] [place] [address] RBC (Bld) [#/Vol] 4.05 10*6/uL Low 4.20-5.70 [facility] Comment on above: Performed By: #### L [id number] #### [facility] ([facility]) [address] [place] [address] WBC (Bld) [#/Vol] 12.11 10*3/uL High 4.00-10.60 [facility] Comment on above: Performed By: #### L [id number] #### [facility] ([facility]) [address] [place] [address] 30on 07-07-2024 30 Daily Case Managemen t Update Multidisciplinary rounds have been completed. Barriers to Discharge: Pending clinical course; Hematuria; More (3 way for CBI); pending UA/cx; PT recs SNF, OT recs home w/assist;. SW following, SNF list provided to patient. Diet: Dietary Orders (From admission, onward) Start Ordered 07/06/24 1347 Regular Diet Heart Healthy/HTN, CABG,Stroke, (2gNA, low fat, low cholesterol) Diet effective now Question Answer Comment Room Service? Yes Fat restriction: Heart Healthy/HTN, CABG,Stroke, (2gNA, low fat, low cholesterol) 07/06/24 1347 Physician Expected Discharge Date: 07/08/2024 Discharge Delays: PT Six Click Score: 15 OT Six Click Score: 17 PT Recommendations: longterm facility placement (Possible discharge home with improved mobility.) OT Recommendations: Home OT, With assist New Consults: Therapy Orders (From admission, onward) Start Ordered 07/06/24 1250 PT eval and treat Until therapy completed Question: Reason for PT? Answer: debility 07/06/24 1250 07/06/24 1250 OT eval and treat Until therapy completed Question: Reason for OT? Answer: debility 07/06/24 1250 Normal [facility] 30 The patient is Moderately Stable - Low risk of patient condition declining or worsening The patient's goals for the shift include rest The clinical goals for the shift include comfort Problem: Pain - Adult Goal: Verbalizes/displays adequate comfort level or baseline comfort level Outcome: Progressing Problem: Safety - Adult Goal: Free from fall injury Outcome: Progressing Problem: Discharge Planning Goal: Discharge to home or other facility with appropriate resources Outcome: Progressing Problem: Chronic Conditions and Co-morbidities Goal: Patient's chronic conditions and co-morbidity symptoms are monitored and maintained or improved Outcome: Progressing Normal [facility] 30 The patient is Moderately Stable - Low risk of patient condition declining or worsening The patient's goals for the shift include rest The clinical goals for the shift include comfort Problem: Pain - Adult Goal: Verbalizes/displays adequate comfort level or baseline comfort level Outcome: Progressing Problem: Safety - Adult Goal: Free from fall injury Outcome: Progressing Problem: Chronic Conditions and Co-morbidities Goal: Patient's chronic conditions and co-morbidity symptoms are monitored and maintained or improved Outcome: Progressing Normal [facility] BASIC METABOLIC PANELon 11 Anion gap [Moles/Vol] 9 mmol/L Normal 7-20 [facility] Comment on above: Performed By: #### L [id number] ####[facility] ([facility])[address] [place] [address] Calcium [Mass/Vol] 8.3 mg/dL Low 8.6-10.3 [facility] Comment on above: Performed By: #### L [id number] ####[facility] ([facility])[address] [place] [address] Chloride [Moles/Vol] 108 mmol/L High 98-107 [facility] Comment on above: Performed By: #### L [id number] ####[facility] ([facility])[address] [place] [address] CO2 [Moles/Vol] 26 mmol/L Normal 21-31 [facility] Comment on above: Performed By: #### L [id number] ####[facility] ([facility] [place] [address] Creatinine [Mass/Vol] 0.77 mg/dL Normal 0.70-1.30 [facility] Comment on above: Performed By: #### L [id number] ####[facility] ([facility] [place] [address] GLOMERULAR FILTRATION RATE ML/MIN/1.73 SQ M.PREDICTED 89.9 mL/min/1.73m*2 Normal >60.0 [facility] Comment on above: Result Comment: The [facility]???s estimated glomerular filtration rate (eGFR) will no longer include consideration of race in its calculation. The [employer]???s eGFR Task Force developed new recommendations for the estimation of the glomerular filtration rate in the [place] They recommend immediate implementation of the new equation refit without the race variable in all laboratories because the calculation does not include race. In addition to not including race in the calculation and reporting, it included diversity in its development, and has acceptable performance characteristics and potential consequences that do not disproportionately affect any one group of individuals. Performed By: #### L [id number] ####[facility] ([facility])[address] [place] [address] Glucose [Mass/Vol] 106 mg/dL High 70-100 [facility] Comment on above: Performed By: #### L [id number] ####[facility] ([facility] [place] [address] Potassium [Moles/Vol] 3.6 mmol/L Normal 3.5-5.1 [facility] Comment on above: Performed By: #### L [id number] ####[facility] ([facility] [place] [address] Sodium [Moles/Vol] 139 mmol/L Normal 136-145 [facility] Comment on above: Performed By: #### L [id number] ####[facility] ([facility])[address] [place] [address] Urea nitrogen [Mass/Vol] 23 mg/dL Normal 7-25 [facility] Comment on above: Performed By: #### L [id number] ####[facility] ([facility])[address] [place] [address] UREA NITROGEN/CREATININE (MASS RATIO) IN SER/PLAS 29.9 Normal [facility] Comment on above: Performed By: #### L [id number] ####[facility] ([facility])[address] [place] [address] CBCon 07-07-2024 Erythrocyte distribution width (RBC) [Ratio] 14.3 % Normal 11.5-15.0 [facility] Comment on above: Performed By: #### L [id number] ####[facility] ([facility] [place] [address] ERYTHROCYTE MEAN CORPUSCULAR HEMOGLOBIN CONCENTRATION (G/DL) BY AUTOMATED 34.0 g/dL Normal 32.0-35.0 [facility] Comment on above: Performed By: #### L [id number] ####[facility] ([facility] [place] [address] Hematocrit (Bld) [Volume fraction] 37.1 % Low 39.0-55.0 [facility] Comment on above: Performed By: #### L [id number] ####[facility] ([facility])[address] [place] [address] Hemoglobin (Bld) [Mass/Vol] 12.6 g/dL Low 13.0-17.0 [facility] Comment on above: Performed By: #### L [id number] ####[facility] ([facility])[address] [place] [address] MCH (RBC) [Entitic mass] 31.3 pg Normal 27.0-33.0 [facility] Comment on above: Performed By: #### L [id number] ####[facility] ([facility])[address] [place] [address] MCV (RBC) [Entitic vol] 92.3 fL Normal 82.0-98.0 [facility] Comment on above: Performed By: #### L [id number] ####[facility] ([facility] [place] [address] PLATELETS (10*3/UL) IN BLOOD AUTOMATED COUNT 156 10*3/uL Normal 150-400 [facility] Comment on above: Performed By: #### L [id number] ####[facility] ([facility])[address] [place] [address] RBC (Bld) [#/Vol] 4.02 10*6/uL Low 4.20-5.70 [facility] Comment on above: Performed By: #### L [id number] ####[facility] ([facility])[address] [place] [address] WBC (Bld) [#/Vol] 11.64 10*3/uL High 4.00-10.60 [facility] Comment on above: Performed By: #### L [id number] ####[facility] ([facility])[address] [place] [address] CONSULTon 07-07-2024 CONSULT client service coordinator Oj vargas Note Visit Date: 07/07/2024 Patient Name: Kyler Richard Date of : 1940 Reason for Consult: Wound present on admission. See LDA *Staff nurses are responsible for performing treatments and interventions as ordered. Recommended care: Wound location: Abdomen Skin fold Please apply Interdry fabric to the patient's skin folds to assist in keeping this area dry. The steps to apply Interdry fabric are as follows: A. Wash skin gently. Pat, do not rub. B. With clean scissors, cut enough fabric to cover the affected area, allowing for minimum of 2 inches to extend beyond the skin fold for moisture evaporation. C. Lay a single layer of fabric in the skin fold, placing one edge into the base of the fold. Gently smooth the rest of the fabric over the skin, keeping it flat. D. Leave at least 2 inches of fabric exposed outside the skin fold. E. Secure the fabric in one of several ways: with the skin fold, with a small amount of skin-friendly tape, or tucked under clothing. F. Remove the fabric before bathing and reuse it when finished. When removing, gently separate the skin fold and lift away. Wound Care Prevention: Pillows applied for pressure redistribution and Patient/Staff were educated on the importance of frequent turns in bed to avoid prolonged pressure on high-risk area. Focused skin assessment performed Situation/ background: History of wound: Patient was noted to have partial thickness moisture damage to the abdominal skin fold due to sweating. This area assessed today, appears improved since admission. Interdry fabric ordered for this issue. Wound care will sign off at this time. Barriers to care: Patient requires assistance with all wound care at this time. Problems identified: None Discharge Planning: Patient to discharge to a care facility., Patient requires assistance to care for their wound after discharge., and Patient will need to be given the supplies required to care for their wound after discharge Teaching performed: Patient was educated on the process of how to care for their wound after discharge. and Further teaching is necessary. Tolerance of dressings: Patient tolerated well without being medicated for pain. Number of staff and time required for dressin, 10 minutes Photos: 07/07/2024 Left Abdomen 07/06/2024 Left Abdomen 07/06/2024 Left Abdomen Pertinent Labs: No results found for: ALB Wound Assessment: Wound 07/06/24 Other (comment) Abdomen Anterior;Left (Active) Wound Image 07/06/24 1748 Site Assessment Clean;Red;Painful 07/07/24 112 Vanessa-Wound Assessment Blanchable erythema;Painful;Red;M oist 07/07/24 1124 Wound Length (cm) 11.5 cm 07/06/24 1748 Wound Width (cm) 4 cm 07/06/24 1748 Wound Surface Area (cm^2) 46 cm^2 07/06/24 1748 Closure None 07/07/24 1124 Drainage Description Serosanguineous 07/07/24 1124 Drainage Amount Scant 07/07/24 1124 Treatments Cleansed 07/07/24 1124 Dressing Dry dressing 07/07/24 1124 Dressing Changed New 07/07/24 112 State of Healing Non-granulated tissue 07/07/241123 Wound Bed Granulation (%) 0 % 07/07/241123 Wound Bed Epithelium (%) 0 % 07/07/241123 Wound Bed Non-Granulation (%) 100 % 07/07/241123 Wound Bed Slough (%) 0 % 07/07/241123 Wound Bed Eschar (%) 0 % 07/07/24 112 Margins Attached edges;Undefined edges 07/07/241123 Non-staged Wound Description Partial thickness 07/07/241123 Breann Fung RN, CWON 07/07/2024 11:26 AM Normal [facility] URINALYSIS MICROSCOPIC WITH REFLEX CULTUREon 07-07-2024 MUCUS (#/LPF) IN URINE SEDIMENT Many Abnormal None Seen, Occasional, Few [facility] Comment on above: Performed By: #### L [id number] #### [facility] ([facility]) [address] [place] [address] RBC (#/HPF) IN URINE SEDIMENT >20 Abnormal None Seen, 0-2 [facility] Comment on above: Performed By: #### L [id number] #### [facility] ([facility]) [address] [place] [address] SQUAMOUS EPITHELIAL CELLS (#/LPF) IN URINE SEDIMENT None Seen Normal None Seen, Occasional, Few [facility] Comment on above: Performed By: #### L [id number] #### [facility] ([facility]) [address] [place] [address] WBC (LEUKOCYTE) (#/HPF) IN URINE SEDIMENT >50 Abnormal None Seen, 0-2 [facility] Comment on above: Performed By: #### L [id number] #### [facility] ([facility]) [address] [place] [address] YEAST, BUDDING (#/HPF) IN URINE None Seen Normal None Seen [facility] Comment on above: Result Comment: Luis ected result: Previously reported as Few /HPF (reference range: None Seen /HPF) on 07/07/2024 at 1450 EST. Performed By: #### L [id number] #### [facility] ([facility]) [address] [place] [address] URINALYSIS WITH REFLEX CULTU REon 07-07-2024 BILIRUBIN, TOTAL PRESENCE IN URINE Negative Normal Negative [facility] Comment on above: Performed By: #### L [id number] #### [facility] ([facility]) [address] [place] [address] Clarity (U) Turbid Abnormal Clear [facility] Comment on above: Performed By: #### L [id number] #### [facility] ([facility]) [address] [place] [address] Color (U) Dark-Yellow Abnormal Colorless, Yellow, Light-Yellow [facility] Comment on above: Performed By: #### L [id number] #### [facility] ([facility]) [address] [place] [address] GLUCOSE (MG/DL) IN URINE Normal Normal Normal [facility] Comment on above: Performed By: #### L [id number] #### [facility] ([facility]) [address] [place] [address] HEMOGLOBIN PRESENCE IN URINE Large Abnormal Negative [facility] Comment on above: Performed By: #### L [id number] #### [facility] ([facility]) [address] [place] [address] Ketones Ql (U) Negative Normal Negative [facility] Comment on above: Performed By: #### L [id number] #### [facility] ([facility]) [address] [place] [address] LEUKOCYTE ESTERASE PRESENCE IN URINE BY TEST STRIP Large Abnormal Negative [facility] Comment on above: Performed By: #### L [id number] #### [facility] ([facility]) [address] [place] [address] NITRITE PRESENCE IN URINE Positive Abnormal Negative [facility] Comment on above: Performed By: #### L [id number] #### [facility] ([facility]) [address] [place] [address] pH (U) 8.0 [pH] Normal 5.0-8.0 [facility] Comment on above: Performed By: #### L [id number] #### [facility] ([facility]) [address] [place] [address] Protein (U) [Mass/Vol] 100 mg/dL Abnormal Negative [facility] Comment on above: Performed By: #### L [id number] #### [facility] ([facility]) [address] [place] [address] Specific gravity (U) [Rel density] 1.019 Normal 1.010-1.030 [facility] Comment on above: Performed By: #### L [id number] #### [facility] ([facility]) [address] [place] [address] UROBILINOGEN (MG/DL) IN URINE Normal Normal Normal [facility] Comment on above: Performed By: #### L [id number] #### [facility] ([facility]) [address] [place] [address] URINE CULTURE, ROUTINEon DAPTOmycin [Susc] <=1 Susceptible [facility] Comment on above: Performed By: #### L [id number] ####[facility] ([facility])[address] [place] [address] Linezolid [Susc] <=1 Susceptible [facility] Comment on above: Performed By: #### L [id number] ####[facility] ([facility])[address] [place] [address] Nitrofurantoin [Susc] <=16 Susceptible [facility] Comment on above: Performed By: #### L [id number] ####[facility] ([facility])[address] [place] [address] Oxacillin [Susc] >2 Resistant [facility] Comment on above: Performed By: #### L [id number] ####[facility] ([facility])[address] [place] [address] Tetracycline [Susc] >8 Resistant [facility] Comment on above: Performed By: #### L [id number] ####[facility] (BEAKER)[address] [place] [address] Trimethoprim+Sulfam ethoxazole [Susc] <=0.5/9.5 Susceptible [facility] Comment on above: Performed By: #### L [id number] ####[facility] ([facility] [place] [address] Vancomycin [Susc] <=0.5 Susceptible [facility] Comment on above: Performed By: #### L [id number] ####[facility] ([facility] [place] [address] BASIC METABOLIC PANELon 11 Anion gap [Moles/Vol] 12 mmol/L Normal 7-20 [facility] Comment on above: Performed By: #### L [id number] #### [facility] ([facility]) [address] [place] [address] Calcium [Mass/Vol] 8.4 mg/dL Low 8.6-10.3 [facility] Comment on above: Performed By: #### L [id number] #### [facility] ([facility] [address] [place] [address] Chloride [Moles/Vol] 109 mmol/L High 98-107 [facility] Comment on above: Performed By: #### L [id number] #### [facility] ([facility]ER) [address] [place] [address] CO2 [Moles/Vol] 21 mmol/L Normal 21-31 [facility] Comment on above: Performed By: #### L [id number] #### [facility] ([facility] [address] [place] [address] Creatinine [Mass/Vol] 0.77 mg/dL Normal 0.70-1.30 [facility] Comment on above: Performed By: #### L [id number] #### [facility] ([facility]ER) [address] [place] [address] GLOMERULAR FILTRATION RATE ML/MIN/1.73 SQ M.PREDICTED 89.9 mL/min/1.73m*2 Normal >60.0 [facility] Comment on above: Result Comment: The [facility]???s estimated glomerular filtration rate (eGFR) will no longer include consideration of race in its calculation. The National Kidney Foundation???s eGFR Task Force developed new recommendations for the estimation of the glomerular filtration rate in the [place] They recommend immediate implementation of the new equation refit without the race variable in all laboratories because the calculation does not include race. In addition to not including race in the calculation and reporting, it included diversity in its development, and has acceptable performance characteristics and potential consequences that do not disproportionately affect any one group of individuals. Performed By: #### L [id number] #### [facility] ([facility]) [address] [place] [address] Glucose [Mass/Vol] 127 mg/dL High 70-100 [facility] Comment on above: Performed By: #### L [id number] #### [facility] ([facility]) [address] [place] [address] Potassium [Moles/Vol] 3.8 mmol/L Normal 3.5-5.1 [facility] Comment on above: Performed By: #### L [id number] #### [facility] ([facility]) [address] [place] [address] Sodium [Moles/Vol] 138 mmol/L Normal 136-145 [facility] Comment on above: Performed By: #### L [id number] #### [facility] ([facility]) [address] [place] [address] Urea nitrogen [Mass/Vol] 22 mg/dL Normal 7-25 [facility] Comment on above: Performed By: #### L [id number] #### [facility] ([facility]) [address] [place] [address] UREA NITROGEN/CREATININE (MASS RATIO) IN SER/PLAS 28.6 Normal [facility] Comment on above: Performed By: #### L [id number] #### [facility] ([facility]) [address] [place] [address] CBCon 07-06-2024 Erythrocyte distribution width (RBC) [Ratio] 13.9 % Normal 11.5-15.0 [facility] Comment on above: Performed By: #### L [id number] ####[facility] ([facility])[address] [place] [address] ERYTHROCYTE MEAN CORPUSCULAR HEMOGLOBIN CONCENTRATION (G/DL) BY AUTOMATED 33.8 g/dL Normal 32.0-35.0 [facility] Comment on above: Performed By: #### L [id number] ####[facility] ([facility])[address] [place] [address] Hematocrit (Bld) [Volume fraction] 39.3 % Normal 39.0-55.0 [facility] Comment on above: Performed By: #### L [id number] ####[facility] ([facility])[address] [place] [address] Hemoglobin (Bld) [Mass/Vol] 13.3 g/dL Normal 13.0-17.0 [facility] Comment on above: Performed By: #### L [id number] ####[facility] ([facility])[address] [place] [address] MCH (RBC) [Entitic mass] 31.6 pg Normal 27.0-33.0 [facility] Comment on above: Performed By: #### L [id number] ####[facility] ([facility])[place] [address] MCV (RBC) [Entitic vol] 93.3 fL Normal 82.0-98.0 [facility] Comment on above: Performed By: #### L [id number] ####[facility] ([facility])[address] [place] [address] PLATELETS (10*3/UL) IN BLOOD AUTOMATED COUNT 161 10*3/uL Normal 150-400 [facility] Comment on above: Performed By: #### L [id number] ####[facility] ([facility])[address] [place] [address] RBC (Bld) [#/Vol] 4.21 10*6/uL Normal 4.20-5.70 [facility] Comment on above: Performed By: #### L [id number] ####[facility] ([facility])[address] [place] [address] WBC (Bld) [#/Vol] 11.72 10*3/uL High 4.00-10.60 [facility] Comment on above: Performed By: #### L [id number] ####[facility] ([facility])[address] [place] [address] Ambulatory Visit Summaryon 1 Ambulatory Visit Summary Ambulatory Visit Summary KYLER RICHARD :1940 Visit Date:06/22/2024 Ambulatory Visit Instructions Your Diagnosis Gross hematuria Urinary retention BPH with urinary obstruction Urethral stricture Antiplatelet or antithrombotic long-term use Your Care Team Attending Physician - Zoie FOX, KIM, Lazara Echavarria Primary Care Physician - Bayron Velazquez MD This Is Your Medications List Contact prescribing physician if questions or concerns aspirin atorvastatin (atorvastatin 40 mg oral tablet) brimonidine ophthalmic (brimonidine ophthalmic 0.2% solution) cetirizine (cetirizine 10 mg Tab) dorzolamide ophthalmic (dorzolamide 2% ophthalmic solution) fluticasone nasal (fluticasone Nasal 0.05 mg/inh [place]) hyoscyamine (hyoscyamine 0.125 mg sublingual Tab) icosapent [...] 11:30 AM EST With: KIM Lino APRN, Lazara Echavarria Where: [facility] [address] [place] [address]- Medications What How Much When Instructions Unchanged [...] fluticasone nasal (fluticasone Nasal 0.05 mg/ inh [place]) instill 1 spray into each nostril once [...] you for choosing us for your care. [facility] C Urineon 06-04-2024 Bacteria identified Cx Nom (U) Microbiology PROCEDURE: Urine Culture [R1] SOURCE: U Random BODY SITE: COLLECTED DATE/TIME: 06/02/2024 12:49 EDT RECEIVED DATE/TIME: 06/02/2024 17:59 EDT START DATE/TIME: 06/02/2024 17:59 EDT FREE TEXT SOURCE: KIM Lino APRN, KIM Lino APRN, Lazara Jericho Haile X FINAL REPORTS Final Report [] Verified Date/Time: 06/04/2024 10:18 EDT 85,000 cfu/ml Methicillin-Resistant Staphylococcus aureus MRSA SUSCEPTIBILITY RESULTS __ LEGEND: S=Susceptible, N/R=Not Reported, Blank=Data not available, or drug not advisable or tested, I=Intermediate, ESBL=Extended spectrum beta-lactamase, R=Resistant, TFG=Thymidine-dependen t strain, RAFAEL=Beta-lactamase positive, CARIN=mcg/m;(mg/L), S*=Predicted susceptible interp, [...] Locations R1: This test was performed at: [facility], [address] [place] [address], [address]- , [place], Normal [facility] Comment on above: Performed By: #### 2 [id number] #### [facility] [address] [place] [address] Urology Office/Clinic Noteon 06-02-2024 Urology Office/Clinic Note Urology Office/Clinic Note Chief Complaint [facility] ER follow up HPI Staff 83 year old male patient presents today for a ER follow up from [facility]. Has had a cath from [...] with voice recognition artificial intelligence software, specifically [employer] and or [employer]. Substitutions may have occurred due to the [...] day(s), # 14 cap(s), Refills(s) 0, Pharmacy: [facility], 158, cm, 06/02/24 11:55:00 EDT, Height/Length Dosing, 96, kg, 06/02/24 11:55:00 ED... 2. Urinary retention (R33.9: Retention of urine, unspecified) Has experienced urinary retention in the past. 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 Episode of retention 03/12/2024 at [facility] ER. Patient opted to keep More catheter until cystoscopic evaluation. s/p cystoscopy 04/07/2024 which showed high-grade trabeculation, open prostatic urethra. Patient was to follow-up 3 months with PVR at that time. 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 Started to have difficulty voiding a day or 2 prior to ER visit. [facility] ER 05/10/2024 with difficulty urinating. There is no note of degree of retention at that time, More placed and treated with Keflex. UCX at [...] did advise patient I would recommend maintaining More catheter versus relearning CIC over trial of void. Patient and son agree. More changed in office today. See ad hoc. [...] of the proximal penile urethra, presumably from More catheter. Prostatic urethra open. No evidence of [...] tronically Signed By: KIM Lino APRN, Lazara Echavarria\.jeffy\Date and Time Signed: 06/02/24 13:23 EDT [facility] UA (CLEAN/CATCH) DRUM STOCK CLERK/CARIN RO IF IND.on 05-11-2024 BILIRUBIN URINE COLOR INTERFERENCE Abnormal NEGATIVE [facility] BLOOD URINE COLOR INTERFERENCE Abnormal NEGATIVE [facility] Clarity (U) CLEAR CLEAR [facility] Color (U) DK. RED YELLOW [facility] GLUCOSE URINE UA COLOR INTERFERENCE Abnormal NEGAT SRINI mg/dL [facility] Interpretation and review of laboratory results Abnormal [facility] Ketones Ql (U) COLOR INTERFERENCE Abnormal NEGATIV E mg/dL [facility] Healthcare Leukocyte esterase Test strip Ql (U) COLOR INTERFERENCE Abnormal NEGATIVE [facility] Health care NITRITE URINE COLOR INTERFERENCE Abnormal NEGATIVE [facility] Healthcare PH URINE COLOR INTERFERENCE Abnormal 5.0 - 9.0 [facility] PROTEIN URINE COLOR INTERFERENCE Abnormal NEG/TRAC E mg/dL [facility] SPECIFIC GRAVITY URINE 1.015 1.005 - 1.025 [facility] URINE MICROSCOPIC INDICATED YES [facility] UROBILINOGEN URINE COLOR INTERFERENCE Abnormal 0.2 - 1.0 EU/dL [facility]INIS[facility]NC [facility] COMPREHENSIVE METABOLIC PANE Jarett 04-20-2024 Albumin [Mass/Vol] 3.4 g/dL Normal 3.2-5.3 [facility] Comment on above: Performed By: #### C MP ####[facility] ([id number])[address] [place] [address] ALP [Catalytic activity/Vol] 73 U/L Normal 39-130 [facility] Comment on above: Performed By: #### C MP ####[facility] ([id number])[address] [place] [address] ALT [Catalytic activity/Vol] 21 U/L Normal 0-40 [facility] Comment on above: Performed By: #### C MP ####[facility] ([id number])[address] [place] [address] Anion gap [Moles/Vol] 8 mmol/L Normal 5-15 [facility] Comment on above: Performed By: #### C MP ####[facility] ([id number])[address] [place] [address], [place] [address] AST [Catalytic activity/Vol] 17 U/L Normal 0-41 [facility] Comment on above: Performed By: #### C MP ####[facility] ([id number])[address] [place] [address], [place] [address] Bilirubin [Mass/Vol] 0.7 mg/dL Normal 0.3-1.2 [facility] Comment on above: Performed By: #### C MP ####[facility] ([id number])[address] [place] [address] [place] [address] Calcium [Mass/Vol] 8.4 mg/dL Low 8.5-10.5 [facility] Comment on above: Performed By: #### C MP ####[facility] ([id number])[address] [place] [address], [place] [address] Chloride [Moles/Vol] 102 mmol/L Normal 98-109 [facility] Comment on above: Performed By: #### C MP ####[facility] ([id number])[address] [place] [address] [place] [address] CO2 [Moles/Vol] 24 mmol/L Normal 22-32 [facility] Comment on above: Performed By: #### C MP ####[facility] ([id number])[address] [place] [address] [place] [address] Creatinine [Mass/Vol] 0.85 mg/dL Normal 0.70-1.20 [facility] Comment on above: Result Comment: METH OD TRACEABLE TO IDMS STANDARD Performed By: #### C MP ####[facility] ([id number])[address] [place] [address], [place] [address] GFR/1.73 sq M.predicted among non-blacks MDRD (S/P/Bld) [Vol rate/Area] 87 mL/min/{1.73_m2} Normal >59 [facility] Comment on above: Result Comment: Reported eGFR is based on the CKD-EPI 2020 equation that does not use a race coefficient. Performed By: #### C MP ####[facility] ([id number])[address] [place] [address] [place] [address] Glucose [Mass/Vol] 119 mg/dL High 65-99 [facility] Comment on above: Performed By: #### C MP ####[facility] ([id number])[address] [place] [address] Potassium [Moles/Vol] 3.4 mmol/L Low 3.5-5.0 [facility] Comment on above: Performed By: #### C MP ####[facility] ([id number])[address] [place] [address] [place] [address] Protein [Mass/Vol] 6.4 g/dL Normal 6.0-8.0 [facility] Comment on above: Performed By: #### C MP ####[facility] ([id number])[address] [place] [address], [place] [address] Sodium [Moles/Vol] 134 mmol/L Normal 134-146 [facility] Comment on above: Performed By: #### C MP ####[facility] ([id number])[address] [place] [address] [place] [address] Urea nitrogen [Mass/Vol] 19 mg/dL Normal 5-27 [facility] Comment on above: Performed By: #### C MP ####[facility] ([id number])[address] [place] [address], [place] [address] CBC AND AUTO DIFFon 08-25-20 24 ABSOLUTE BASOPHIL 0.0 X10E9/L Normal 0.0-0.2 [facility] Comment on above: Performed By: #### C MP, CBCA ####[facility] ([id number])[address] [place] [address] ABSOLUTE NEUTROPHIL 3.3 X10E9/L Normal 1.5-6.6 [facility] Comment on above: Performed By: #### C MP, CBCA ####[facility] ([id number])[address] [place] [address] Basophils/100 WBC (Bld) 0.4 % Normal [facility] Comment on above: Performed By: #### C MP, CBCA ####[facility] ([id number])[address] [place] [address] Eosinophils (Bld) [#/Vol] 0.3 10*3/uL Normal 0.0-0.4 [facility] Comment on above: Performed By: #### C MP, CBCA ####[facility] ([id number])[address] [place] [address] Eosinophils/100 WBC (Bld) 4.5 % Normal [facility] Comment on above: Performed By: #### C MP, CBCA ####[facility] ([id number])[address] [place] [address] Erythrocyte distribution width (RBC) [Ratio] 13.4 % Normal 11.5-15.0 [facility] Comment on above: Performed By: #### C MP, CBCA ####[facility] ([id number])[address] [place] [address] Hematocrit (Bld) [Volume fraction] 43.2 % Normal 39-49 [facility] Comment on above: Performed By: #### C MP, CBCA ####[facility] ([id number])[address] [place] [address] Hemoglobin (Bld) [Mass/Vol] 15.1 g/dL Normal 13.0-17.0 [facility] Comment on above: Performed By: #### C MP, CBCA ####[facility] ([id number])[address] [place] [address] Lymphocytes (Bld) [#/Vol] 2.1 10*3/uL Normal 1.0-3.5 [facility] Comment on above: Performed By: #### C MP, CBCA ####[facility] ([id number])[address] [place] [address] Lymphocytes/100 WBC (Bld) 33.9 % Normal [facility] Comment on above: Performed By: #### C MP, CBCA ####[facility] ([id number])[address] [place] [address] MCH (RBC) [Entitic mass] 31.9 pg Normal 27-34 [facility] Comment on above: Performed By: #### C MP, CBCA ####[facility] ([id number])[address] [place] [address] MCHC (RBC) [Mass/Vol] 34.8 g/dL Normal 32-36 [facility] Comment on above: Performed By: #### C MP, CBCA ####[facility] ([id number])[address] [place] [address] MCV (RBC) [Entitic vol] 92 fL Normal 80-100 [facility] Comment on above: Performed By: #### C MP, CBCA ####[facility] ([id number])[address] [place] [address] Monocytes (Bld) [#/Vol] 0.5 10*3/uL Normal 0-0.9 [facility] Comment on above: Performed By: #### C MP, CBCA ####[facility] ([id number])[address] [place] [address] Monocytes/100 WBC (Bld) 8.5 % Normal [facility] Comment on above: Performed By: #### C MP, CBCA ####[facility] ([id number])[address] [place] [address] Neutrophils/100 WBC (Bld) 52.7 % Normal [facility] Comment on above: Performed By: #### C MP, CBCA ####[facility] ([id number])[address] [place] [address] Platelet mean volume (Bld) [Entitic vol] 8.2 fL Normal 7-12 [facility] Comment on above: Performed By: #### C MP, CBCA ####[facility] ([id number])[address] [place] [address] Platelets (Bld) [#/Vol] 140 10*3/uL Low 150-450 [facility] Comment on above: Performed By: #### C MP, CBCA ####[facility] ([id number])[address] [place] [address] RBC COUNT 4.71 X10E12/L Normal 4.10-5.70 [facility] Comment on above: Performed By: #### C MP, CBCA ####[facility] ([id number])[address] [place] [address] WBC (Bld) [#/Vol] 6.2 10*3/uL Normal 4.0-11.0 [facility] Comment on above: Performed By: #### C MP, CBCA ####[facility] ([id number])[address] [place] [address] [place] [address] COMPREHENSIVE METABOLIC PANE [facility] 04-19-2024 Albumin [Mass/Vol] 3.4 g/dL Normal 3.2-5.3 [facility] Comment on above: Performed By: #### C MP, CBCA ####[facility] ([id number])[address] [place] [address] [place] [address] ALP [Catalytic activity/Vol] 69 U/L Normal 39-130 [facility] Comment on above: Performed By: #### C MP, CBCA ####[facility] ([id number])[address] [place] [address] [place] [address] ALT [Catalytic activity/Vol] 18 U/L Normal 0-40 [facility] Comment on above: Performed By: #### C MP, CBCA ####[facility] ([id number])[address] [place] [address] [place] [address] Anion gap [Moles/Vol] 9 mmol/L Normal 5-15 [facility] Comment on above: Performed By: #### C MP, CBCA ####[facility] ([id number])[address] [place] [address] [place] [address] AST [Catalytic activity/Vol] 23 U/L Normal 0-41 [facility] Comment on above: Performed By: #### C MP, CBCA ####[facility] ([id number])[address] [place] [address], [place] [address] Bilirubin [Mass/Vol] 1.0 mg/dL Normal 0.3-1.2 [facility] Comment on above: Result Comment: RESU LTS QUESTIONABLE DUE TO HEMOLYSIS Performed By: #### C MP, CBCA ####[facility] ([id number])[address] [place] [address] [place] [address] Calcium [Mass/Vol] 8.3 mg/dL Low 8.5-10.5 [facility] Comment on above: Performed By: #### C MP, CBCA ####[facility] ([id number])[address] [place] [address] Chloride [Moles/Vol] 107 mmol/L Normal 98-109 [facility] Comment on above: Performed By: #### C SERINA CBCA ####[facility] ([id number])[address] [place] [address] CO2 [Moles/Vol] 21 mmol/L Low 22-32 [facility] Comment on above: Performed By: #### C SERINA, CBCA ####[facility] ([id number])[address] [place] [address] Creatinine [Mass/Vol] 0.81 mg/dL Normal 0.70-1.20 [facility] Comment on above: Result Comment: METH OD TRACEABLE TO IDMS STANDARD Performed By: #### C SERINA CBCA ####[facility] ([id number])[address] [place] [address] GFR/1.73 sq M.predicted among non-blacks MDRD (S/P/Bld) [Vol rate/Area] 89 mL/min/{1.73_m2} Normal >59 [facility] Comment on above: Result Comment: Reported eGFR is based on the CKD-EPI 1 equation that does not use a race coefficient. Performed By: #### C SERINA CBCA ####[facility] ([id number])[address] [place] [address] Glucose [Mass/Vol] 125 mg/dL High 65-99 [facility] Comment on above: Performed By: #### C SERINA CBCA ####[facility] ([id number])[address] [place] [address] Potassium [Moles/Vol] 4.0 mmol/L Normal 3.5-5.0 [facility] Comment on above: Result Comment: SPEC IMEN HEMOLYZED, RESULTS INCREASED Performed By: #### C SERINA, CBCA ####[facility] ([id number])[address] [place] [address]14 Protein [Mass/Vol] 6.0 g/dL Normal 6.0-8.0 [facility] Comment on above: Performed By: #### C MP, CBCA ####[facility] ([id number])[address] [place] [address] Sodium [Moles/Vol] 137 mmol/L Normal 134-146 [facility] Comment on above: Performed By: #### C MP, CBCA ####[facility] ([id number])[address] [place] [address]23 Urea nitrogen [Mass/Vol] 16 mg/dL Normal 5-27 [facility] Comment on above: Performed By: #### C MP, CBCA ####[facility] ([id number])[address] [place] [address] Calcium.ionized (Bld) [Moles /Vol]on 04-19-2024 PORTABLE ICA 4.6 mg/dL Normal 4.5-5.3 [facility] Comment on above: Performed By: #### 1 994-3 ####[facility] ([id number])[address] [place] [address] CBC AND AUTO DIFFon 04-18-20 ABSOLUTE BASOPHIL 0.1 X10E9/L Normal 0.0-0.2 [facility] Comment on above: Performed By: #### C BCA, CMP ####[facility] ([id number])[address] [place] [address]#### [id number] ####[facility] ([id number])[address] [place] [address], [address], [place] [address] ABSOLUTE NEUTROPHIL 2.7 X10E9/L Normal 1.5-6.6 [facility] Comment on above: Performed By: #### C BCA, CMP ####[facility] ([id number])[address] [place] [id number]#### [id number] ####[facility] ([id number])[address], [address], [place] [address] Basophils/100 WBC (Bld) 0.9 % Normal [facility] Comment on above: Performed By: #### C BCA, CMP ####[facility] ([id number])[address] [place] [id number]#### [id number] ####[facility] ([id number])[address], [address] [place] [address] 28312 Eosinophils (Bld) [#/Vol] 0.2 10*3/uL Normal 0.0-0.4 [facility] Comment on above: Performed By: #### C BCA, CMP ####[facility] ([id number])[address] [place] [address] 13793#### 98293-0 ####[facility] ([id number])[address], [address] [place] [address] 32347 Eosinophils/100 WBC (Bld) 4.1 % Normal [facility] Comment on above: Performed By: #### C BCA, CMP ####[facility] ([id number])[address] [place] [address] 64539#### 57539-8 ####[facility] ([id number])[address], [address], [place] [address] Erythrocyte distribution width (RBC) [Ratio] 13.8 % Normal 11.5-15.0 [facility] Comment on above: Performed By: #### C BCA, CMP ####[facility] ([id number])[address] [place] [address] 73238#### 00979-9 ####[facility] ([id number])[address], [address] [address] Hematocrit (Bld) [Volume fraction] 41.2 % Normal 39-49 [facility] Comment on above: Performed By: #### C BCA, CMP ####[facility] ([id number])[address] [place] [address] 29517#### 54426-6 ####[facility] ([id number])[address], [address], [place] [address] Hemoglobin (Bld) [Mass/Vol] 14.1 g/dL Normal 13.0-17.0 [facility] Comment on above: Performed By: #### C BCA, CMP ####[facility] ([id number])[address] [place] [address] 45208#### 60334-1 ####[facility] ([id number])[address], [address], [place] [address] Lymphocytes (Bld) [#/Vol] 1.9 10*3/uL Normal 1.0-3.5 [facility] Comment on above: Performed By: #### C BCA, CMP ####[facility] ([id number])[address] [place] [address] 42686#### 23864-1 ####[facility] ([id number])[address], [place] [address] Lymphocytes/100 WBC (Bld) 35.6 % Normal [facility] Comment on above: Performed By: #### C BCA, CMP ####[facility] ([id number])[address] [place] [address] 75697#### 05561-6 ####[facility] ([id number])[address], [address], [place] [address] MCH (RBC) [Entitic mass] 31.7 pg Normal 27-34 [facility] Comment on above: Performed By: #### C BCA, CMP ####[facility] ([id number])[address] [place] [address] 30070#### 73543-3 ####[facility] ([id number])[address], [place] [address] MCHC (RBC) [Mass/Vol] 34.2 g/dL Normal 32-36 [facility] Comment on above: Performed By: #### C BCA, CMP ####[facility] ([id number])[address] [place] [address] 13580#### 36933-6 ####[facility] ([id number])[address], [address] [place] [address] MCV (RBC) [Entitic vol] 93 fL Normal 80-100 [facility] Comment on above: Performed By: #### C BCA, CMP ####[facility] ([id number])[address] [place] [address] 91428#### 45320-0 ####[facility] ([id number])[address], [address] [place] [address] 18627 Monocytes (Bld) [#/Vol] 0.5 10*3/uL Normal 0-0.9 [facility] Comment on above: Performed By: #### C BCA, CMP ####[facility] ([id number])[address] [place] [address] 22126#### 60035-6 ####[facility] ([id number])[address], [place] [address] Monocytes/100 WBC (Bld) 9.4 % Normal [facility] Comment on above: Performed By: #### C BCA, CMP ####[facility] ([id number])[address] [place] [address] 16203#### 42626-4 ####[facility] ([id number])[address], [place] [address] Neutrophils/100 WBC (Bld) 50.0 % Normal [facility] Comment on above: Performed By: #### C BCA, CMP ####[facility] ([id number])[address] [place] [address] 10024#### 19075-4 ####[facility] ([id number])[address] [place] [address] 09882 Platelet mean volume (Bld) [Entitic vol] 8.2 fL Normal 7-12 [facility] Comment on above: Performed By: #### C BCA, CMP ####[facility] ([id number])[address] [place] [address] 45973#### 10143-4 ####[facility] ([id number])[address] [address] Platelets (Bld) [#/Vol] 159 10*3/uL Normal 150-450 [facility] Comment on above: Performed By: #### C BCA, CMP ####[facility] ([id number])[address] [place] [address] 32653#### 49473-5 ####[facility] ([id number])[address], [place] [address] RBC COUNT 4.45 X10E12/L Normal 4.10-5.70 [facility] Comment on above: Performed By: #### C BCA, CMP ####[facility] ([id number])[address] [place] [address] 31395#### 83289-8 ####[facility] ([id number])[address], [place] [address] WBC (Bld) [#/Vol] 5.4 10*3/uL Normal 4.0-11.0 [facility] Comment on above: Performed By: #### C BCA, CMP ####[facility] ([id number])[address] [place] [address] 69496#### 91217-2 ####[facility] ([id number])[address], [place] [address] COMPREHENSIVE METABOLIC PANE Jarett 04-18-2024 Albumin [Mass/Vol] 3.3 g/dL Normal 3.2-5.3 [facility] Comment on above: Performed By: #### C BCA, CMP ####[facility] ([id number])[address] [place] [address] 09003#### 86283-4 ####[facility] ([id number])[address] [address] [place] [address]1727 ALP [Catalytic activity/Vol] 67 U/L Normal 39-130 [facility] Comment on above: Performed By: #### C BCA, CMP ####[facility] ([id number])[address] [place] [address] 78519#### 25814-5 ####[facility] ([id number])[address], [address] [place] [address] 24530 ALT [Catalytic activity/Vol] 18 U/L Normal 0-40 [facility] Comment on above: Performed By: #### C BCA, CMP ####[facility] ([id number])[address] [place] [address] 81464#### 19921-0 ####[facility] ([id number])[address], [place] [address] Anion gap [Moles/Vol] 7 mmol/L Normal 5-15 [facility] Comment on above: Performed By: #### C BCA, CMP ####[facility] ([id number])[address] [place] [address] 30151#### 18913-9 ####[facility] ([id number])[address], [place] [address] AST [Catalytic activity/Vol] 17 U/L Normal 0-41 [facility] Comment on above: Performed By: #### C BCA, CMP ####[facility] ([id number])[address] [place] [address] 49803#### 65894-0 ####[facility] ([id number])[address] [address] Bilirubin [Mass/Vol] 0.8 mg/dL Normal 0.3-1.2 [facility] Comment on above: Performed By: #### C BCA, CMP ####[facility] ([id number])[address] [place] [address] 77775#### 74811-9 ####[facility] ([id number])[address] [address] Calcium [Mass/Vol] 8.2 mg/dL Low 8.5-10.5 [facility] Comment on above: Performed By: #### C BCA, CMP ####[facility] ([id number])[address] [place] [address] 67114#### 33655-6 ####[facility] ([id number])[address], [place] [address] Chloride [Moles/Vol] 108 mmol/L Normal 98-109 [facility] Comment on above: Performed By: #### C BCA, CMP ####[facility] ([id number])[address] [place] [address] 06951#### 40111-1 ####[facility] ([id number])[address] [facility], [address], [place] [address] CO2 [Moles/Vol] 23 mmol/L Normal 22-32 [facility] Comment on above: Performed By: #### C BCA, CMP ####[facility] ([id number])[address] [place] [address] 20062#### 18430-5 ####[facility] ([id number])[address] [facility], [address] [place] [address] 14725 Creatinine [Mass/Vol] 0.75 mg/dL Normal 0.70-1.20 [facility] Comment on above: Result Comment: METH OD TRACEABLE TO IDMS STANDARD Performed By: #### C BCA, CMP ####[facility] ([id number])[address] [place] [address] 40973#### 66784-9 ####[facility] ([id number])[address] [facility], [address] [place] [address] 58865 eGFR (CKD-EPI) NON-RACE DEPENDENT >90 Normal >59 [facility] Comment on above: Result Comment: Reported eGFR is based on the CKD-EPI 2021 equation that does not use a race coefficient. Performed By: #### C BCA, CMP ####[facility] ([id number])[address] [place] [address] 76141#### 37434-1 ####[facility] ([id number])[address] [facility], [address] [place] [address] 61552 Glucose [Mass/Vol] 110 mg/dL High 65-99 [facility] Comment on above: Performed By: #### C BCA, CMP ####[facility] ([id number])[address] [place] [address] 90752#### 57741-5 ####[facility] ([id number])[address] [address] Potassium [Moles/Vol] 3.5 mmol/L Normal 3.5-5.0 [facility] Comment on above: Performed By: #### C BCA, CMP ####[facility] ([id number])[address] [place] [address] 11093#### 12307-5 ####[facility] ([id number])[address], [place] [address] Protein [Mass/Vol] 5.9 g/dL Low 6.0-8.0 [facility] Comment on above: Performed By: #### C BCA, CMP ####[facility] ([id number])[address] [place] [address] 18468#### 20055-2 ####[facility] ([id number])[address], [place] [address] Sodium [Moles/Vol] 138 mmol/L Normal 134-146 [facility] Comment on above: Performed By: #### C BCA, CMP ####[facility] ([id number])[address] [place] [address] 06181#### 21170-4 ####[facility] ([id number])[address] [address] Urea nitrogen [Mass/Vol] 16 mg/dL Normal 5-27 [facility] Comment on above: Performed By: #### C BCA, CMP ####[facility] ([id number])[address] [place] [address] 76944#### 66147-1 ####[facility] ([id number])[address] [facility], [address] [address] Lipid 1996 panelon 4 Cholesterol [Mass/Vol] 117 mg/dL Low 150-200 [facility] Comment on above: Performed By: #### Alessandro DE PAZ, CMP ####[facility] ([id number])[address] [place] [address] 57855#### 01475-1 ####[facility] ([id number])[address] [facility], [address] [address] Cholesterol in HDL [Mass/Vol] 28 mg/dL Low >39 [facility] Comment on above: Result Comment: HDL <40 mg/dL - High Risk HDL > or = 40mg/dL- Desirable HDL >60 mg/dL - Negative Risk Performed By: #### Alessandro DE PAZ, CMP ####[facility] ([id number])[address] [place] [address] 69907#### 37049-0 ####[facility] ([id number])[address] [address] Cholesterol in LDL [Mass/Vol] 35 mg/dL Normal <130 [facility] Comment on above: Result Comment: LDL <100 mg/dL - Desirable LDL >160 mg/dL - High Risk Performed By: #### Alessandro BCA, CMP ####[facility] ([id number])[address] [place] [address] 26143#### 93038-4 ####[facility] ([id number])[address], [place] [address] Cholesterol in VLDL [Mass/Vol] 54 mg/dL High 0-30 [facility] Comment on above: Performed By: #### C BCA, CMP ####[facility] ([id number])[address] [place] [address] 56530#### 31776-2 ####[facility] ([id number])[address], [place] [address] CHOLESTEROL:HDL 4.2 Normal 1.0-5.0 [facility] Comment on above: Performed By: #### C BCA, CMP ####[facility] ([id number])[address] [place] [address] 38904#### 48418-7 ####[facility] ([id number])[address], [place] [address] Triglyceride [Mass/Vol] 270 mg/dL High 27-150 [facility] Comment on above: Performed By: #### C BCA, CMP ####[facility] ([id number])[address] [place] [address] 99975#### 85854-9 ####[facility] ([id number])[address], [address] [place] [address] 32234 POTASSIUMon 04-18-2024 Potassium [Moles/Vol] 4.1 mmol/L Normal 3.5-5.0 [facility] Comment on above: Performed By: #### 2 823-3 ####[facility] ([id number])[address] [place] [address] 17818 BASIC METABOLIC PANLon 04-17 Anion gap [Moles/Vol] 5 mmol/L Normal 5-15 [facility] Comment on above: Performed By: #### C BCA, BMP, PINR, 71091-1, 01436-1, 301-3, 7 #### [facility] ([id number]) [address] [place] [address] 40551 #### HA1C #### [facility] ([id number]) [address], [address] [place] [address] Calcium [Mass/Vol] 8.2 mg/dL Low 8.5-10.5 [facility] Comment on above: Performed By: #### C BCA, BMP, PINR, 41757-2, 50445-1, 3016-3, 302-7 #### [facility] ([id number]) [address] [place] [address] 08003 #### HA1C #### [facility] ([id number]) [address], [address] [place] [address] Chloride [Moles/Vol] 105 mmol/L Normal 98-109 [facility] Comment on above: Performed By: #### C BCA, BMP, PINR, 23206-3, 35755-3, 6-3, 3027 #### [facility] ([id number]) [address] [place] [address] 33768 #### HA1C #### [facility] ([id number]) [address] [place] [address] CO2 [Moles/Vol] 26 mmol/L Normal 22-32 [facility] Comment on above: Performed By: #### C BCA, BMP, PINR, 69194-0, 23889-5, 6-3, 3027 #### [facility] ([id number]) [address] [place] [address] 31957 #### HA1C #### [facility] ([id number]) [address] [place] [address] Creatinine [Mass/Vol] 0.97 mg/dL Normal 0.70-1.20 [facility] Comment on above: Result Comment: METH OD TRACEABLE TO IDMS STANDARD Performed By: #### C BCA, BMP, PINR, 61433-3, 74783-2, 3016-3, 3024-7 #### [facility] ([id number]) [address] [place] [address] 26454 #### HA1C #### [facility] ([id number]) [address] [facility], [address] [place] [address] GFR/1.73 sq M.predicted among non-blacks MDRD (S/P/Bld) [Vol rate/Area] 78 mL/min/{1.73_m2} Normal >59 [facility] Comment on above: Result Comment: Reported eGFR is based on the CKD-EPI 2020 equation that does not use a race coefficient. Performed By: #### C BCA, BMP, PINR, 60770-9, 45819-6, 3015-3, 7 #### [facility] ([id number]) [address] [place] [address] 83077 #### HA1C #### [facility] ([id number]) [address] [facility], [address] [place] [address] Glucose [Mass/Vol] 108 mg/dL High 65-99 [facility] Comment on above: Performed By: #### C BCA, BMP, PINR, 44549-1, 23469-9, 3015-3, 302-7 #### [facility] ([id number]) [address] [place] [address] 35638 #### HA1C #### [facility] ([id number]) [address] [facility], [address] [place] [address] Potassium [Moles/Vol] 3.7 mmol/L Normal 3.5-5.0 [facility] Comment on above: Performed By: #### C BCA, BMP, PINR, 10627-2, 70171-0, 3016-3, 3024-7 #### [facility] ([id number]) [address] [place] [address] 57128 #### HA1C #### [facility] ([id number]) [address] [place] [address] Sodium [Moles/Vol] 136 mmol/L Normal 134-146 [facility] Comment on above: Performed By: #### C BCA, BMP, PINR, 92729-2, 36111-9, 3016-3, 302-7 #### [facility] ([id number]) [address] [place] [address] 36748 #### HA1C #### [facility] ([id number]) [address] [place] [address] Urea nitrogen [Mass/Vol] 23 mg/dL Normal 5-27 [facility] Comment on above: Performed By: #### C BCA, BMP, PINR, 53572-6, 25103-0, 3016-3, 302-7 #### [facility] ([id number]) [address] [place] [address] 57026 #### HA1C #### [facility] ([id number]) [address] [place] [address] CBC AND AUTO DIFFon 04-17-20 24 ABSOLUTE BASOPHIL 0.0 X10E9/L Normal 0.0-0.2 [facility] Comment on above: Performed By: #### C BCA, BMP, PINR, 80408-8, 09898-6, 3016-3, 302-7 #### [facility] ([id number]) [address] [place] [address] 92239 #### HA1C #### [facility] ([id number]) [address] [place] [address] ABSOLUTE NEUTROPHIL 2.4 X10E9/L Normal 1.5-6.6 [facility] Comment on above: Performed By: #### C BCA, BMP, PINR, 17340-6, 28840-4, 3016-3, 7 #### [facility] ([id number]) [address] [place] [address] 03909 #### HA1C #### [facility] ([id number]) [address] [place] [address] Basophils/100 WBC (Bld) 0.8 % Normal [facility] Comment on above: Performed By: #### C BCA, BMP, PINR, 95142-1, 17559-1, 3015-3, 7 #### [facility] ([id number]) [address] [place] [address] 14100 #### HA1C #### [facility] ([id number]) [address] [place] [address] Eosinophils (Bld) [#/Vol] 0.2 10*3/uL Normal 0.0-0.4 [facility] Comment on above: Performed By: #### C BCA, BMP, PINR, 74577-4, 49565-5, 3015-3, 7 #### [facility] ([id number]) [address] [place] [address] 05584 #### HA1C #### [facility] ([id number]) [address] [place] [address] Eosinophils/100 WBC (Bld) 4.1 % Normal [facility] Comment on above: Performed By: #### C BCA, BMP, PINR, 46546-6, 39154-9, 6-3, 7 #### [facility] ([id number]) [address] [place] [address] 19610 #### HA1C #### [facility] ([id number]) [address] [place] [address] Erythrocyte distribution width (RBC) [Ratio] 13.6 % Normal 11.5-15.0 [facility] Comment on above: Performed By: #### C BCA, BMP, PINR, 42161-7, 91484-5, 3016-3, 3024-7 #### [facility] ([id number]) [address] [place] [address] 14344 #### HA1C #### [facility] ([id number]) [address] [place] [address] Hematocrit (Bld) [Volume fraction] 41.0 % Normal 39-49 [facility] Comment on above: Performed By: #### C BCA, BMP, PINR, 24754-0, 78988-0, 3016-3, 3024-7 #### [facility] ([id number]) [address] [place] [address] 41048 #### HA1C #### [facility] ([id number]) [address] [place] [address] Hemoglobin (Bld) [Mass/Vol] 14.0 g/dL Normal 13.0-17.0 [facility] Comment on above: Performed By: #### C BCA, BMP, PINR, 38937-2, 56708-8, 3016-3, 3024-7 #### [facility] ([id number]) [address] [place] [address] 97025 #### HA1C #### [facility] ([id number]) [address] [place] [address] Lymphocytes (Bld) [#/Vol] 2.3 10*3/uL Normal 1.0-3.5 [facility] Comment on above: Performed By: #### C BCA, BMP, PINR, 00598-9, 73207-5, 3015-3, 7 #### [facility] ([id number]) [address] [place] [address] 21989 #### HA1C #### [facility] ([id number]) [address] [place] [address] Lymphocytes/100 WBC (Bld) 41.5 % Normal [facility] Comment on above: Performed By: #### C BCA, BMP, PINR, 32894-0, 43772-5, 3, 3024-02 #### [facility] ([id number]) [address] [place] [address] 92300 #### HA1C #### [facility] ([id number]) [address] [place] [address] MCH (RBC) [Entitic mass] 31.7 pg Normal 27-34 [facility] Comment on above: Performed By: #### C BCA, BMP, PINR, 27165-9, 34718-5, 3, 7 #### [facility] ([id number]) [address] [place] [address] #### HA1C #### [facility] ([id number]) [address], [address] [place] [address] MCHC (RBC) [Mass/Vol] 34.1 g/dL Normal 32-36 [facility] Comment on above: Performed By: #### C BCA, BMP, PINR, 04297-0, 47980-4, 3015-10, 7 #### [facility] ([id number]) [address] [place] [address] #### HA1C #### [facility] ([id number]) [address], [address] [place] [address] MCV (RBC) [Entitic vol] 93 fL Normal 80-100 [facility] Comment on above: Performed By: #### C BCA, BMP, PINR, 35424-5, 98335-4, 3016-3, 3023-7 #### [facility] ([id number]) [address] [place] [address] #### HA1C #### [facility] ([id number]) [address], [address] [place] [address] Monocytes (Bld) [#/Vol] 0.5 10*3/uL Normal 0-0.9 [facility] Comment on above: Performed By: #### C BCA, BMP, PINR, 26782-5, 83068-5, 3015-3, 7 #### [facility] ([id number]) [address] [place] [address] #### HA1C #### [facility] ([id number]) [address], [address] [place] [address] Monocytes/100 WBC (Bld) 9.9 % Normal [facility] Comment on above: Performed By: #### C BCA, BMP, PINR, 74394-3, 20267-0, 3015-3, 7 #### [facility] ([id number]) [address] [place] [address] #### HA1C #### [facility] ([id number]) [address], [address] [place] [address] Neutrophils/100 WBC (Bld) 43.7 % Normal [facility] Comment on above: Performed By: #### C BCA, BMP, PINR, 22823-9, 64919-5, 3016-3, 3023- #### [facility] ([id number]) [address] [place] [address] #### HA1C #### [facility] ([id number]) [address], [address] [place] [address] Platelet mean volume (Bld) [Entitic vol] 8.2 fL Normal 7-12 [facility] Comment on above: Performed By: #### C BCA, BMP, PINR, 38182-9, 77801-6, 3016-3, 3024-7 #### [facility] ([id number]) [address] [place] [address] #### HA1C #### [facility] ([id number]) [address], [address] [place] [address] Platelets (Bld) [#/Vol] 150 10*3/uL Normal 150-450 [facility] Comment on above: Performed By: #### C BCA, BMP, PINR, 20960-4, 07291-5, 3016-3, 3024-7 #### [facility] ([id number]) [address] [place] [address] #### HA1C #### [facility] ([id number]) [address], [address] [place] [address] RBC COUNT 4.41 X10E12/L Normal 4.10-5.70 [facility] Comment on above: Performed By: #### C BCA, BMP, PINR, 86829-3, 78376-7, 3016-3, 3024-7 #### [facility] ([id number]) [address] [place] [address] #### HA1C #### [facility] ([id number]) [address], [address] [place] [address] WBC (Bld) [#/Vol] 5.4 10*3/uL Normal 4.0-11.0 [facility] Comment on above: Performed By: #### C BCA, BMP, PINR, 41518-5, 37144-7, 3016-3, 3024-7 #### [facility] ([id number]) [address] [facility] - [place], [place] [address] #### HA1C #### [facility] ([id number]) [address], [address] [place] [address] CT CTA CAROTIDon 04-17-[address] CTA CAROTID History: Neuro deficit, acute, stroke suspected. Slurred speech Exam/Technique: CT angiogram performed following intravenous administration of 100 mL of Omnipaque 350. Coronal and sagittal and 3-D volume rendered maximum intensity projection images generated and reviewed under concurrent physician supervision. Automated exposure control utilized. The [place] Symptomatic Carotid Endarterectomy Trial (NASCET) method for [...] MD on 04/17/2024 9:08 AM Normal [facility] CT CTA HEADon 04-17-2024 CT CTA [...] posterior cerebral arteries. Mild narrowing right P2 DOCUMENTATION LEAD. Unremarkable vertebral, basilar arteries. 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 Unremarkable appearance of the orbits, visualized suprahyoid neck, scalp, brain parenchyma [which is suboptimally assessed]. Impression: No acute large vessel occlusion the [place] arterial structures. If there is persistent concern for ischemia, recommend MR. All CT scans at this facility use dose modulation, iterative reconstruction, and/or weight based dosing when appropriate to reduce radiation dose to as low as reasonably achievable. Finalized by Lázaro Solomon MD on 04/17/2024 9:00 AM Normal [facility] FREE T4on 04-17-2024 Free T4 [Mass/Vol] 0.91 ng/dL Normal 0.61-1.60 [facility] Comment on above: Performed By: #### C BCA, BMP, PINR, 77767-1, 51412-7, 3016-3, 3024-7 #### [facility] ([id number]) [address] [place] [address], [place] [address] #### HA1C #### [facility] ([id number]) [address] [place] [address], [address] [place] [address] Glucose Glucometer (BldC) [M ass/Vol]on 04-17-2024 Glucose [Mass/Vol] 94 mg/dL Normal 65-99 [facility] HGB A1C (GLYCO-HGB)on 2023 Glucose [Mass/Vol] 134 mg/dL Normal [facility] Comment on above: Performed By: #### C BCA, BMP, PINR, 51753-1, 85930-1, 3016-3, 3024-7 ####[facility] ([id number])[address] [place] [address]#### HA1C ####[facility] ([id number])[address] [facility], [address] [address] HbA1c (Bld) [Mass fraction] 6.3 % High 4.4-5.6 [facility] Comment on above: Result Comment: NOTE ADA Guidelines Result HgbA1c Normal : less than 5.7 % Prediabetes : 5.7 % to 6.4 % Diabetes : > 6.4 % Use with caution in patients with abnormal hemoglobin variants as the half-life of red blood cells and in vivo glycation rates are affected. Performed By: #### C BCA, BMP, PINR, 52655-1, 20366-6, 3016-3, 3024-7 ####[facility] ([id number])[address] [place] [address]#### HA1C ####[facility] ([id number])[address] [facility], [address] [address] Lipid 1996 panelon Cholesterol [Mass/Vol] 121 mg/dL Low 150-200 [facility] Comment on above: Performed By: #### 8 9579-7 ####[facility] ([id number])[address] [place] [address]#### 55525-5, 75355-9, 74356-2 ####[facility] ([id number])[address] [address] Cholesterol in HDL [Mass/Vol] 34 mg/dL Low >39 [facility] Comment on above: Result Comment: HDL <40 mg/dL - High Risk HDL > or = 40mg/dL- Desirable HDL >60 mg/dL - Negative Risk Performed By: #### 8 9579-7 ####[facility] ([id number])[address] [place] [address]#### 24961-0, 37624-1, 80629-4 ####[facility] ([id number])[address] [facility], [address] [place] [address] Cholesterol in LDL [Mass/Vol] 43 mg/dL Normal <130 [facility] Comment on above: Result Comment: LDL <100 mg/dL - Desirable LDL >160 mg/dL - High Risk Performed By: #### 8 9579-7 ####[facility] ([id number])[address] [place] [address]#### 44995-6, 92113-8, 06480-2 ####[facility] ([id number])[address] [facility], [address] [place] [address] Cholesterol in VLDL [Mass/Vol] 44 mg/dL High 0-30 [facility] Comment on above: Performed By: #### 8 9579-7 ####[facility] ([id number])[address] [place] [address]#### 63092-3, 22801-4, 93950-2 ####[facility] ([id number])[address] [place] [address], [address] [place] [address] CHOLESTEROL:HDL 3.6 Normal 1.0-5.0 [facility] Comment on above: Performed By: #### 8 9579-7 ####[facility] ([id number])[address] [place] [address]#### 66599-1, 65426-6, 87710-9 ####[facility] ([id number])[address], [address] [place] [address] Triglyceride [Mass/Vol] 218 mg/dL High 27-150 [facility] Comment on above: Performed By: #### 8 9579-7 ####[facility] ([id number])[address] [place] [address]#### 25717-5, 03360-8, 30813-5 ####[facility] ([id number])[address] [place] [address], [address] [address] MR BRAIN WO CONTon 4 MR BRAIN [...] midline shift or extra axial fluid collection. Ofeu-iw-asmdyrzp central greater than peripheral volume loss. Partially [...] Hendrix on 04/17/2024 12:22 PM Normal [facility] Nuclear Ab IA Ql (S)on 04-17 [place] Screen w/reflex Negative Normal NEG [facility] Comment on above: Result Comment: Testing performed using multiplex flow immunoassay. Eleven different antigens associated with systemic autoimmune diseases (dsDNA,Sm,Sm/COSMETIC SALES ASSISTANT,COSMETIC SALES ASSISTANT,Chromatin, SSA,SSB,Vesna-1,Scl70,Ribo P,Centromere B) are included in this screening test. Performed By: #### 8 9579-7 ####[facility] ([id number])[address] [place] [address]#### 58948-0, 86978-2, 57758-1 ####[facility] ([id number])[address] [facility], [address] [place] [address] PROTIME AND INRon 04-17-2024 INR Coag (PPP) [Relative time] 1.2 {INR} High 0.8-1.1 [facility] Comment on above: Performed By: #### C BCA, BMP, PINR, 17209-5, 36679-9, 3016-3, 3024-7 #### [facility] ([id number]) [address] [place] [address] #### HA1C #### [facility] ([id number]) [address] [facility], [address] [place] [address] PT Coag (PPP) [Time] 13.6 s High 9.8-13.2 [facility] Comment on above: Result Comment: NEW REFERENCE RANGE Performed By: #### C BCA, BMP, PINR, 30622-7, 54156-5, 3016-3, 3024-7 #### [facility] ([id number]) [address] [place] [address], [place] [address] #### HA1C #### [facility] ([id number]) [address], [address] [place] [address] Rheumatoid factor Nephelomet ry Qn (S)on 04-17-2024 RHEUMATOID FACTOR 36 IU/mL High <20 [facility] Comment on above: Performed By: #### 8 9579-7 ####[facility] ([id number])[address] [place] [address]#### 55880-4, 56516-1, 78175-7 ####[facility] ([id number])[address], [address] [place] [address] TSH Qnon 04-17-2024 TSH 1.23 uIU/mL Normal 0.49-4.67 [facility] Comment on above: Performed By: #### C BCA, BMP, PINR, 95400-4, 01013-1, 3016-3, 3024-7 #### [facility] ([id number]) [address] [place] [address] #### HA1C #### [facility] ([id number]) [address], [address] [place] [address] Troponin I.cardiac High sens itivity method [Mass/Vol]on 04-17-2024 1 HOUR TROP I, HIGH SENSITIVITY 8 ng/L Normal <21 [facility] Comment on above: Performed By: #### 8 9579-7 ####[facility] ([id number])[address] [place] [address]#### 89046-5, 86363-1, 92230-1 ####[facility] ([id number])[address], [address] [place] [address] TROPONIN I, HIGH SENSITIVITY 7 ng/L Normal <21 [facility] Comment on above: Performed By: #### C BCA, BMP, PINR, 59860-8, 50942-2, 3016-3, 3024-7 #### [facility] ([id number]) [address] [place] [address] #### HA1C #### [facility] ([id number]) [address], [address] [place] [address] aPTT Coag (PPP) [Time]on aPTT Coag (Bld) [Time] 29 s Normal 26-37 [facility] Comment on above: Result Comment: NEW REFERENCE RANGE Performed By: #### C BCA, BMP, PINR, 45126-4, 04051-5, 3016-3, 3024-7 #### [facility] ([id number]) [address] [place] [address] #### HA1C #### [facility] ([id number]) [address], [address] [place] [address] Urology Office/Clinic Noteon 03-20-2024 Urology Office/Clinic Note Urology Office/Clinic Note Chief Complaint ER f/u *Urinary Retention HPI Staff PRW pt Last seen in our office by INEZ 02/11/24 DX: BPH, Urethral Stricture, Gross Hematuria & UTI PVR at that time 108ml Here today to follow up to [facility] ER 03/11/24 CC: Urinary Retention PVR 230ml. Catheter was inserted. Finished abx yesterday from blister on leg. Denies visible blood in cath bag. States catheter is uncomfortable, no other complaints. History of Present Illness Tests reviewed: reviewed ER records. I have reviewed the previous health record information and history for this patient from KIM Elder, RUDDY & Dr. Interiano. I have reviewed and verified the staff [...] distress, well nourished, well developed male. Bladder: More in place. Here today w/ who does help assist in providing much of his recent history. Assessment/Plan Dr. Interiano pt. Hx of bowel resection, chemo, and radiation due to colon cancer. [2] 1. Urinary retention (R33.9: Retention of urine, unspecified) Hx of UR. Last episode was 3-4 yrs ago. Has CIC in the past. PVR (cc): 02/11/24 - 108 Pt presented to [facility] ER 03/11/24 with UR. PVR >230 cc. More placed at that time. Pt was already on Keflex for a leg wound, cipro for UTI. Prior to 03/11 visit, pt was seen in the ER prior to this. Pt states they were unable to place More. Ended up being discharged and was able to void at home until he started to retain again. Still has More. Shares that retention came on suddenly. Recommended cystoscopic evaluation to further eval SEO. Pt elects to proceed. Discussed options such as proceeding with voiding trial today and relearning how to CIC vs keeping indwelling More until the time of cysto (would need exchanged prior to cysto). Pt very unsure on how to proceed. Seems hesitant to relearn CIC. Will keep More in place and schedule an appt in [...] with lower urinary tract symptoms) IPSS has more (4) S/p cysto/UD 06/15/21 - bilobar obstruction [...] of gross hematuria since prior office visit. Karino (more content not included)... Normal [facility] Comment on above: Result Comment: Elec tronically Signed By: KIM Lino APRN, Lazara Echavarria\.br\Date and Time Signed: 03/20/24 08:02 EDT\.br\Electronically Co-Signed By: Aleida Sapp.jeffy\Date and Time Co-Signed: 03/17/24 15:28 EDT Ambulatory Visit Summaryon 0 03-17-2024 Ambulatory Visit Summary Ambulatory Visit Summary KYLER RICHARD :1940 Visit Date:03/17/2024 Ambulatory Visit Instructions Your Diagnosis Urinary retention BPH with urinary obstruction Urethral stricture in male History of UTI Gross hematuria Your Care Team Attending Physician - KIM Lino APRN, [place] X Primary Care Physician - Bayron Velazquez MD This Is Your Medications List Contact prescribing physician if questions or concerns aspirin atorvastatin (atorvastatin 40 mg oral tablet) brimonidine ophthalmic (brimonidine ophthalmic 0.2% solution) cetirizine (cetirizine 10 mg Tab) dorzolamide ophthalmic (dorzolamide 2% ophthalmic solution) fluticasone nasal (fluticasone Nasal 0.05 mg/inh [place]) hyoscyamine (hyoscyamine 0.125 mg sublingual Tab) icosapent [...] APRN, [place] X Where: [facility] [address] [place] [address] [place] [address]- You Need to Schedule the Following Appointments Follow Up with KIM Lino APRN, Lazara Echavarria, PARVIN, TANIYA When: Where: Medications What How Much When [...] fluticasone nasal (fluticasone Nasal 0.05 mg/ inh [place]) instill 1 spray into each nostril once [...] urinary ret (more content not included)... Normal [facility] Coding Summary.on 02-19-2024 Coding Summary. PYJNQlvi43FAr3hLk+PG hl YWQ+KW2TNVYxG41ylXMzlZ 6mI9MLZInFUckmOKSTRAyE LaWrjqBfIX3xqXSsJIBp IC8+PS1gOQBnBqzopQOuj9 R7sCJ8H11xnn3tWXmbcHB3 WDPjMpKcasxzh2jhqSl5BW cuNmluOyBt JPYoyV52WTI6uH27Wv25xZ RsqICfw0vbjXf4ReToLUHi MWC5gIerJTppz5WdAZZgL5 2isHFqx5F4 PNWpkIpnaNYpOlYkmHA2hV 6qILffycymx2shsavaXeu9 pj39rRIzn8S4xEQ8C4Wtsb R0BTCcpWYu KiaxgFKNjM2crggqk3nsek yzRvEtOWDyMTp2KFl7BRHh gQhfAvHySW93WTD1PSNese ZfU3BtASNw oDkgEvB4m4M0Df0UZ6HMKa pmO0YDNIZTXUvwtYQ+PC90 kp23E7PbPvykNfq7FFUbPJ Y2gDN1mS2c KPSaHTpph6E3oAS7G8Tqqo Xsao0xh6cfFSTiIQwoZ90y gWEiu1X4YDSqdBL8QBKnsX ijJoYgbY05 Oyc+TKAtdYhvl2OmWvqbe9 pxx5dgeGn7SkcwGRKyroYi vHzdXCE0n4SuIa6qQZSftD K8eJO2zO4b AeIiGxF6LTxpN623AgUwfH FnHvsyC21lB9JbaBI+PHRy Jca5FCFmjRtuDO2hP2LaSQ RpbmctbGVm pIstEV7hZPKxfrbpQMTzlX 8oYKFqC3f7IbAtTpJ1LJlf N9PoKSWjxbkgBe93aE4bBw WnViJ4UHil P0UyifB6SWEmsNYtWCvdKS C6X62vt6S8PABzARYcOTT0 zDM0gM4kfYvlrbrbpPRlnL sgdmVydGlj KRvcGPzxV078HTGjcFlgCi NvZGluZyBEYXRlOiAgMDYv MjYvMjAyNDwvdGQ+PHRkIH S6bMbrBBEu wVAwDHmdOk5gaSlzoGazXM 0mFOExbettAOHbhW1pSWNg sTBcmMfxPQ8cFLYaivucq1 78SfXrNKE4 GGMtgNLoX7DpxS0uAwXpCH KaGFRuR2SvdZUbFCriV806 PQzrObS7LNDatgIuX6PaVX FsaWduOiB0 t9U1Vb0We0ShvtjmI6DkjQ FtVjKtRnlaBCw4O2HeBjpv dHI+WT80WIFbTF30YSc1DW F7tVqgCExw MEWqP9ZauA0fYsHrNGYpWN RkOyc+PHRhYmxlIHdpZHRo PQniUSKfUgBuaQawMS4pKv 9yZGVyLWNv oKvpmPRdKvLlf6xuWFXnIL isFD4sdAolR1SzwXN5OIHo h8v3Jy31F00qC8FtlDE+PG SacMU7wUN0 oZ0kBcWoErQ0YZupQ798Wf UllNFqSzirv3hsl4hktWt4 FrI4NJAbqhZqaHvmTDQ9s2 QlPn11R22x IHdpZHRoPSIxNSUiIHZhbG gkuy8hiH3mHp4+PGNvbCB3 qWA4sV9wKoFeGwD0HJnjI7 49InRvcCIv Ekfzb7oji2atyQc8XxVnNO LezoPriPquPWY4e0LaOm96 T0TadAbwe0CcMdd1mr71kP Crs7E6rSH2 E6DqWGUstigrxKTriCpkEZ 3zHPPvtuojVAZmiO9fVOKa P3h3RyWoXdQ8ASngK7Xhhq U3KYJpcKFl YHLpqXYQiM1qcvvvi7vlvq ciMtWbDGBmRZc6BGh3OYEa jAstCxPjVDX3GtN1KSE9hW LxbB9soZwg ldjuoJ1eHwp+BLJ7uDQemX DZIF1eLnrofGW+PHRkIHN0 oAboJVwiPRCevO2iEVBqW0 f4WfSiMuM8 PTxpX5ZtphZ4XAUsuHMhYG EzfXITkI8ojwzeg8fsdofi UoDfICLlUUj4DNp2KLObtO duOiBsZWZ0 YrR8HUW9eVHkmB1opTqbne pmuK0qKaq+QmlydGggRGF0 JIp8D3ZzRlx9QXLqiWytXG 0ncGFkZGlu Wf1fuVcleJumPN7jYQBlgk xvk453FjVka4udYPDygACq SHsyKZH5X48ro7L3PKQdKF MrYJW6dEZ6 oR7lpNcvjqghyUNueRjqft OtfIdpXQjeSXkjV419IPDb eHupJdMxPXc7Z9VbErq1WY AutMbaNS1n pLPwEMgnZs9taUnkfNkeXF 1hVDEvtjosm797GdCeq3so VFQnaSPdVPffMVK4F43ye2 C9PJQkECQi NHB6qUX3cO1leLvusnkutX VmdDsgdmVydGljYWwtYWxp O899ZRAofCydWoCkeDa0Z2 GsClj9NIQu rQyzXC6tkYVwUCahSt4awY thzVcbAT4mIYOywnolp638 TkPak2etZJSzyNMdVYsoFR I6D63oz5N4 EXZwOXOaZEX7zEU2aG9ahR lnbjogbGVmdDsgdmVydGlj AWugZRchW443OTHujCjgUn BhdGllbnQg AFyrIPg0H0WfHvairCX+PC 94BYJkZB26lUXxtRTgz5di uUj6RzHqBSUwQJZ7fQggIL scx1UdZTPp W89urBHxj6L9TBXwxIeonR OaCrEdzGV0sS4nRTpipbqy v4qkcarlAhlur6hnev96fT 87A74yULsu ZHRoPSIzMCUiIHZhbGlnbj 5iaL3dHj7+HSPzhUW5sQC1 dW2fEAOwCvZ2BFgrL350Lm RvcCIvPjxj s2vzq4yhtRw8YkO0PRNrwg NqrPlyIJW2j2VpOu34F73d IHdpZHRoPSIyMCUiIHZhbG igvj4buA5t Ii8+BTXmpDI7jHG4qB4kSx UvDwP3QVleG235YkAkfDLt UrohT85kU8RvrUY+PHRyPj z6EYWbxTyt XK3sdIKuGRozJo4fMWF6Hx UiVvSvAIyrZ5ZjLLZfsezp cakzsTF4JLMrMRMeyI68La 9udDogMTBw rZGWtZ1ysqekn9eienwkEe YvNYQtHMy2MCk5PHIsrVhx ZgWoNPJ1JtF1RMV7oCWzwP 1hbGlnbjog sC2qQ6SpZJEhapxdUu63qW 6pJmFeSgQ0IFcjZwu+U1VU OL4AVXVQQ179G2HbUpi8DG HaaQxgLT3i hXPhISwcLb6nuZrejKieWY 9mSASbarklHYDnjH4iRTXk uYTupJotAJ0iHZHyagbez1 36MtUzJHK6 NASlbTVpZ6YyeR0kNiWpDH IbCYIkM6FkbNMwCAozQ777 PUzxEkX5VIJycaCaP4SkTC FsaWduOiB0 k2Q1Uq2nBZ4tSQ1dVEUnFN 70LJ77aIJww9H9pRS1B9Cj JWFvzxppsqriqNV6WHEqPD FvxQ64jKMb XHzjPx9ot2H1t790AZQiWC TxoP71Nq3ckMsrKSVnoANU tL3cuncvw3bbitjjGzGfCG FwIEx0EUc3 WZHaeShzVfOlMDH1GfK0QU J5uSXryK9amQnygduvoB9f Oyc+RKIvBHBepzU5V5XdTq e3UNUajFuc TI2kzUTvGBluNc0ucMntsX igIB4jDRWacrqwDLLqoJ2p YNIyfRTmsSzcZL1wHYTjqg jfg195AhMi AHB2WZRimBRoG6UqyN7mEz AnQWQePXHbI0BhnJSbWFrw K724LOjtEoM9HRHzgcEoB7 FsLWFsaWdu OuY3g5A4Vq8IADrbRX74UF 19bGXta2D0eYA1I5ZmYZOt ydtmhfptmQC2EPYnFOKnpO 47cGFkZGlu Xt0tj0L5v974OQQxRWUpxG 60Jb2zuNmqJPLuwZMOxU5w remkn6dornfzMvHkTGKyEC y3DDz6QYLf pUllNdSlEMT4GiE9UGU9eS XslC3fcBwpbbyplM7nOhx+ WUTcLDEzg5Hpr0RsFQ69PR 49N0SxHkfn dGFibGU+PHRhYmxlIHdpZH OaIJokYLWlMiPseDeuRP9y Aw5qTMCxJZLpkBdorZRqGn Jlc2bqOKBs HFxpPN4nfBnnD7HyrAV9XR Vmd6n3Ag21F80lF5DdyBJ+ KVAfyEJ3aYZ2nR9fTiXoSo L6KQiwE718 LoMcjSNyIjeci6urz7mpwR p3CqDoMGZoxhJkfUyhONA0 q5BmXq66Y80yJHfuYLPsUR IyMCUiIHZh uYsxsd1aiG7wUn9+PGNvbC L9uGH7yI7bJqDeYnR9RLph E530UjSmpGKsRaekQ21vB0 JvdXA+PHRy Qhu8NAEdaYciQE7byGXtLO voYa2nWQC8EiZtSrImHQjg B6KaCWAnwmejartftSS1CH VjUEXpmW33 Pe5jnFmzJk8jSNMsGGB3WB FbjJQmG6ZvpR7bCzDpNBPo OXWpC4GxmUVlAErkO677ID ucIhJ6NDRa hvWiQ5HiTNTxtLjcTmI0s1 M4Ay4EjZquoTMrBH7nGiIs QTq5W2AyOoj7VXQonAdcDL 0ncGFkZGlu Kl3mtDbfmEynTD5uFNUqhg mls666KqDby0nrHXDzuONz FDnhIBA1L45yo9Z9GPJrKB CrECI5rSH3 dK4klZexmgrqnRMxzOmshr PuaOnuNJhmSXyuO484KVCk mTvlDaOEVzn5A6WoHzw8RC WjoSlgOF7u cAWeQPmySx4wuVlcqYetHH 6wJWGsxxmfx298XkCgp8ia XDIthFWeLGfiBOI5I17ik3 Y9FVQzKJSj OQU7fLG3dW0okIqlvfixwB VmdDsgdmVydGljYWwtYWxp W175MQEpsJxgFg1GVje1X1 JbRsd2DCBw xPvjEB5ajUObXPuyUh8hlW nwkZypOU3gEZVljhgyp133 BsFex1caIGYkkFQsPJslSP V3F80hi4N8 VFLfHGRcXXW6fXG5oW8svS lnbjogbGVmdDsgdmVydGlj WCqpRUpcJ033FCUmqJpmNf BheWVyOjwv dGQ+WO25wi10L1FdOwdaFw i9GLErCGE7hYR8dC5uQHBx MNaye1C1bUY5F2BhylSihl 6ab0elZACx UYobE52olZCrr (more content not included)... Normal [facility] C Urineon 02-13-2024 Bacteria identified Cx Nom (U) Microbiology PROCEDURE: Urine Culture [R1] SOURCE: U Random BODY SITE: COLLECTED DATE/TIME: 02/11/2024 10:06 EDT RECEIVED DATE/TIME: 02/11/2024 18:24 EDT START DATE/TIME: 02/11/2024 18:24 EDT FREE TEXT SOURCE: Zoie WOOL MIXER, CORE OVEN TENDER-C, Oralexander WOOL MIXER, CORE OVEN TENDER-C, Lazara X Lazara X FINAL REPORTS Final Report [] Verified Date/Time: 02/13/2024 09:41 EDT >100,000 cfu/ml Escherichia coli SUSCEPTIBILITY RESULTS __ LEGEND: S=Susceptible, N/R=Not Reported, Blank=Data not available, or drug not advisable or tested, I=Intermediate, ESBL=Extended spectrum beta-lactamase, R=Resistant, TFG=Thymidine-dependen t strain, RAFAEL=Beta-lactamase positive, CARIN=mcg/m;(mg/L), S*=Predicted susceptible interp, [...] Locations R1: This test was performed at: [facility], [address] [place] [address], [facility]- , , [facility] Comment on above: Performed By: #### 2 [id number] #### [facility] [address] [place] [address] Screenson 02-12-2024 Screens [id number]. 00TIFF [facility] Ambulatory Visit Summaryon 0 02-11-2024 Ambulatory Visit Summary KYLER RICHARD :1940 Visit Date:02/11/2024 Ambulatory Visit Instructions Your Diagnosis BPH with urinary obstruction Urethral stricture in male UTI (urinary tract infection) Gross hematuria History of colon cancer Your Care Team Attending Physician - KIM Lino APRN, Lazara Echavarria Primary Care Physician - Byaron Velazquez MD This Is Your Medications List Contact [...] [facility] [address] [place] [address]- [phone] Medications What How Much When Instructions Unchanged [...] [facility] Patient Educationon 02-11-20 24 Patient Education Urology Hematuria, Adult Hematuria is [...] these instructions at home: Medicines ? Take oxwg-goj-wmyzddc and prescription medicines only as told by [...] the blood stops without treatment. ? Take ywju-zfj-irxbcpx and prescription medicines only as told by your health care provider. ? Drink enough fluid to keep your urine pale yellow. This information is not intended to replace advice given to you by your health care provider. Make sure you discuss any questions you have with your health care provider. Document Revised: 04/12/2021 Document Reviewed: 04/12/2021 [employer] Patient Education ? 2022 [employer]. Benign Prostatic Hyperplasia Benign prostatic hyperplasia (BPH) [...] with voice recognition artificial intelligence software, specifically [employer] and or [employer]. Substitutions may have occurred due to the [...] Urnls Dip Stick Auto w/o Microscopy POC 02376 2. Urethral stricture in male (N35.919: Unspecified [...] Instructions: 1 year JAYDON COE, Reno Maciel, TANIYA [facility] [address], [place] [address] [phone] Additional Instructions: Patient Education Hematuria, Adult Benign [...] tronically Signed By: KIM Lino APRN, [place] X\vinicio\Date and Time Signed: 02/11/24 10:41 EDT COVID/FLU RT-PCRon SARS-CoV-2 (COVID-19) RNA TERRIE+probe Ql (Unsp spec) Positive [employer] Other COVID/FLU RT-PCR Negative Cater to u [employer] Other XR KNEE RT 3Von 01-23-2023 XR KNEE RT 3V EXAM: XR KNEE RT 3V HISTORY: Osteoarthritis of knee COMPARISON: None TECHNIQUE: 3 views FINDINGS: No acute fracture or dislocation. Moderate to severe degenerative changes. Unremarkable soft tissues. IMPRESSION: Moderate to severe degenerative changes. Electronically authenticated by: CALVIN BARNES Date: 2023-01-23 13:29 Normal [facility] INSULINon 09-25-2022 Insulin 6.0 uIU/mL Normal 2.6-24.9 [facility] Comment on above: Performed By: #### I NSULIN #### Laboratory [address] [place] [address] Dr. Wally Zapien BNPon 09-24-2022 Natriuretic peptide B (Bld) [Mass/Vol] 110.0 pg/mL Normal <=1,800.0 [facility] Comment on above: Performed By: #### U RCX #### Laboratory [address] [place] [address] Dr. Wally Zapien CBC AUTO DIFFon 09-24-2022 BASO # 0.0 103/ul Normal 0.0-0.1 [facility] Comment on above: Performed By: #### C BC #### Laboratory [address] [place] [address] Dr. Wally Zapien Basophils/100 WBC (Bld) 1.0 % Normal 0.2-2.0 [facility] Comment on above: Performed By: #### C BC #### Laboratory [address] [place] [address] Dr. Wally Zapien EO # 0.2 103/ul Normal 0.0-0.7 The Comment on above: Performed By: #### C BC #### Laboratory [address] [place] [address] Dr. Wally Zapien Eosinophils/100 WBC (Bld) 4.2 % Normal 0.9-7.0 [facility] Comment on above: Performed By: #### C BC #### Laboratory [address] [place] [address] Dr. Wally Zapien Erythrocyte distribution width (RBC) [Ratio] 12.5 % Normal 11.0-15.0 [facility] Comment on above: Performed By: #### C BC #### Laboratory [address] [place] [address] Dr. Wally Zapien Hematocrit (Bld) [Volume fraction] 43.7 % Normal 42.0-54.0 [facility] Comment on above: Performed By: #### C BC #### Laboratory [address] [place] [address] Dr. Wally Zapien Hemoglobin (Bld) [Mass/Vol] 15.4 g/dL Normal 14.0-18.0 [facility] Comment on above: Performed By: #### C BC #### Laboratory [address] [place] [address] Dr. Wally Zapien IG # 0.02 10e3/ul Normal 0.00-0.03 [facility] Comment on above: Performed By: #### C BC #### Laboratory [address] [place] [address] Dr. Wally Zapien IG % 0.5 % Normal 0.0-0.5 The Comment on above: Performed By: #### C BC #### Laboratory [address] [place] [address] Dr. Wally Zapien LYMPH # 1.7 103/ul Normal 1.2-3.8 The Comment on above: Performed By: #### C BC #### Laboratory [address] [place] [address] Dr. Wally Zapien Lymphocytes/100 WBC (Bld) 42.6 % Normal 20.5-60.0 [facility] Comment on above: Performed By: #### C BC #### Laboratory [address] [place] [address] Dr. Wally Zapien MANUAL DIFF REQ NO Normal [facility] Comment on above: Performed By: #### C BC #### Laboratory [address] [place] [address] Dr. Wally Zapien MCH (RBC) [Entitic mass] 31.6 pg Normal 25.9-34.0 [facility] Comment on above: Performed By: #### C BC #### Laboratory [address] [place] [address] Dr. Wally Zapien MCHC (RBC) [Mass/Vol] 35.2 g/dL Normal 29.9-35.2 [facility] Comment on above: Performed By: #### C BC #### Laboratory [address] [place] [address] Dr. Wally Zapien MCV (RBC) [Entitic vol] 89.5 fL Normal 80.0-94.0 [facility] Comment on above: Performed By: #### C BC #### Laboratory [address] [place] [address] Dr. Wally Zapien MONO # 0.4 103/ul Normal 0.3-0.8 [facility] Comment on above: Performed By: #### C BC #### Laboratory [address] [place] [address] Dr. Wally Zapien Monocytes/100 WBC (Bld) 9.2 % Normal 1.7-12.0 [facility] Comment on above: Performed By: #### C BC #### Laboratory [address] [place] [address] Dr. Wally Zapien NEUT # 1.7 103/ul Normal 1.4-6.5 [facility] Comment on above: Performed By: #### C BC #### Laboratory [address] [place] [address] Dr. Wally Zapien Neutrophils/100 WBC (Bld) 42.5 % Critically low 43.0-75.0 [facility] Comment on above: Performed By: #### C BC #### Laboratory [address] [place] [address] Dr. Wally Zapien Platelet mean volume (Bld) [Entitic vol] 9.9 fL Normal 9.5-13.5 [facility] Comment on above: Performed By: #### C BC #### Laboratory [address] [place] [address] Dr. Wally Zapien PLT 149 103/ul Critically low 150-450 [facility] Comment on above: Performed By: #### C BC #### Laboratory [address] [place] [address] Dr. Wally Zapien RBC 4.88 106/ul Normal 4.70-6.10 [facility] Comment on above: Performed By: #### C BC #### Laboratory [address] [place] [address] Dr. Wally Zapien WBC 4.0 103/ul Normal 4.0-11.0 [facility] Comment on above: Performed By: #### C BC #### Laboratory [address] [place] [address] Dr. Wally Zapien CULTURE URINEon 09-24-2022 CULTURE URINE Culture Observations : LIGHT GROWTH OF MIXED SKIN GENNA. NO POTENTIAL PATHOGENS SEEN. Normal [facility] Comment on above: Performed By: #### U RCX #### Laboratory [address] [place] [address] Dr. Wally Zapien FREE THYROXINE INDEX T7on FTI 2.52 Normal 1.30-4.50 [facility] Comment on above: Performed By: #### U RCX #### Laboratory [address] [place] [address] Dr. Wally Zapien T3U 36.0 % Normal 33.0-40.0 [facility] Comment on above: Performed By: #### U RCX #### Laboratory [address] [place] [address] Dr. Wally Zapien T4 [Mass/Vol] 7.00 ug/dL Normal 4.50-12.10 [facility] Comment on above: Performed By: #### U RCX #### Laboratory [address] [address] [address] Wally Zapien GLYCOHEMOGLOBIN A1Con 2022 ADA RECOMMENDATION SEE BELOW Normal [facility] Comment on above: Result Comment: ADA RECOMMENDED LIMIT 4.0 - 6.0 ADA THERAPEUTIC TARGET < 7.0 ACTION SUGGESTED > 7.0 Performed By: #### A 1C #### Laboratory [address] [address] [address] Wally Zapien Glucose [Mass/Vol] 123 mg/dL Normal [facility] Comment on above: Performed By: #### A 1C #### Laboratory [address] [place] [address] Dr. Wally Zapien HbA1c (Bld) [Mass fraction] 5.9 % Normal 4.5-6.2 [facility] Comment on above: Performed By: #### A 1C #### Laboratory [address] [place] [address] Dr. Wally Zapien LIPID PROFILEon 09-24-2022 CHOL-HDL RATIO NORM SEE BELOW Normal [facility] Comment on above: Result Comment: 3.3 - 4.4 LOW RISK 4.4 - 7.1 AVERAGE RISK 7.1 - 11.0 MODERATE RISK >11.0 HIGH RISK Performed By: #### U RCX #### Laboratory [address] [place] [address] Dr. Wally Zapien Cholesterol [Mass/Vol] 117 mg/dL Normal <=200 [facility] Comment on above: Performed By: #### U RCX #### Laboratory [address] [address] [address] Wally Zapien Cholesterol in HDL [Mass/Vol] 38 mg/dL Critically low 40-60 [facility] Comment on above: Performed By: #### U RCX #### Laboratory [address] [place] [address] Dr. Wally Zapien Cholesterol in LDL [Mass/Vol] 32.6 mg/dL Normal [facility] Comment on above: Performed By: #### U RCX #### Laboratory [address] [address] [address] Wally Zapien Cholesterol.total/C holesterol in HDL [Mass ratio] 3.1 {ratio} Normal [facility] Comment on above: Performed By: #### U RCX #### Laboratory [address] [address] [address] Wally Zapien HDL NORMAL > or = 60 mg/dl - LO W CARDIOVASCULAR RISK <40 mg/dl - HIGH CARDIOVASCULAR RISK Normal [facility] Comment on above: Performed By: #### U RCX #### Laboratory [address] [address] [address] Wally Zapien LDL CALC NORMAL SEE BELOW Normal [facility] Comment on above: Result Comment: <100 mg/dl OPTIMAL 100 - 129 mg/dl NEAR OR ABOVE OPTIMAL 130 - 159 mg/dl BORDERLINE HIGH 160 - 189 mg/dl HIGH >190 mg/dl VERY HIGH Performed By: #### U RCX #### Laboratory [address] [place] [address] Dr. Wally Zapien Triglyceride [Mass/Vol] 232 mg/dL Critically high <=150 [facility] Comment on above: Performed By: #### U RCX #### Laboratory [address] [place] [address] Dr. Wally Zapien VLDL CALC 46.4 mg/dL Normal [facility] Comment on above: Performed By: #### U RCX #### Laboratory [address] [address] [address] Wally Zapien PROF 14(COMP METB)on 023 Albumin [Mass/Vol] 3.8 g/dL Normal 3.4-5.0 [facility] Comment on above: Performed By: #### B ENROLLMENT COUNSELOR, T7, LIPID, TSH, CMP, URIC #### Laboratory [address] [place] [address] Dr. Wally Zapien Albumin/Globulin [Mass ratio] 1.2 {ratio} Normal [facility] Comment on above: Performed By: #### B ENROLLMENT COUNSELOR, T7, LIPID, TSH, CMP, URIC #### Laboratory [address] [place] [address] Dr. Wally Zapien ALP [Catalytic activity/Vol] 80 U/L Normal 46-116 [facility] Comment on above: Performed By: #### B ENROLLMENT COUNSELOR, T7, LIPID, TSH, CMP, URIC #### Laboratory [address] [place] [address] Dr. Wally Zapien ALT [Catalytic activity/Vol] 34 U/L Normal 16-63 [facility] Comment on above: Performed By: #### B ENROLLMENT COUNSELOR, T7, LIPID, TSH, CMP, URIC #### Laboratory [address] [place] [address] Dr. Wally Zapien Anion gap [Moles/Vol] 11.3 mmol/L Normal [facility] Comment on above: Performed By: #### B ENROLLMENT COUNSELOR, T7, LIPID, TSH, CMP, URIC #### Laboratory [address] [place] [address] Dr. Wally Zapien AST [Catalytic activity/Vol] 24 U/L Normal 15-37 [facility] Comment on above: Performed By: #### B ENROLLMENT COUNSELOR, T7, LIPID, TSH, CMP, URIC #### Laboratory [address] [place] [address] Dr. Wally Zapien Bilirubin [Mass/Vol] 1.0 mg/dL Normal 0.2-1.0 [facility] Comment on above: Performed By: #### B ENROLLMENT COUNSELOR, T7, LIPID, TSH, CMP, URIC #### Laboratory [address] [place] [address] Dr. Wally Zapien Calcium [Mass/Vol] 8.5 mg/dL Normal 8.5-10.1 [facility] Comment on above: Performed By: #### B ENROLLMENT COUNSELOR, T7, LIPID, TSH, CMP, URIC #### Laboratory [address] [place] [address] Dr. Wally Zapien Chloride [Moles/Vol] 105 mmol/L Normal 98-107 [facility] Comment on above: Performed By: #### B ENROLLMENT COUNSELOR, T7, LIPID, TSH, CMP, URIC #### Laboratory [address] [place] [address] Dr. Wally Zapien CO2 [Moles/Vol] 28.6 mmol/L Normal 21.0-32.0 [facility] Comment on above: Performed By: #### B ENROLLMENT COUNSELOR, T7, LIPID, TSH, CMP, URIC #### Laboratory [address] [place] [address] Dr. Wally Zapien Creatinine [Mass/Vol] 0.74 mg/dL Normal 0.70-1.30 [facility] Comment on above: Performed By: #### B ENROLLMENT COUNSELOR, T7, LIPID, TSH, CMP, URIC #### Laboratory [address] [place] [address] Dr. Wally Zapien EGFR-AF CZECH >60 Normal >=60 [facility] Comment on above: Performed By: #### B ENROLLMENT COUNSELOR, T7, LIPID, TSH, CMP, URIC #### Laboratory [address] [place] [address] Dr. Wally Zapien EGFR-NON AF CZECH >60 Normal >=60 [facility] Comment on above: Performed By: #### B ENROLLMENT COUNSELOR, T7, LIPID, TSH, CMP, URIC #### Laboratory [address] [place] [address] Dr. Wally Zapien Globulin (S) [Mass/Vol] 3.2 g/dL Normal [facility] Comment on above: Performed By: #### B ENROLLMENT COUNSELOR, T7, LIPID, TSH, CMP, URIC #### Laboratory [address] [place] [address] Dr. Wally Zapien Glucose [Mass/Vol] 102 mg/dL Normal 74-106 [facility] Comment on above: Performed By: #### B ENROLLMENT COUNSELOR, T7, LIPID, TSH, CMP, URIC #### Laboratory [address] [place] [address] Dr. Wally Zapien Potassium [Moles/Vol] 3.9 mmol/L Normal 3.5-5.1 [facility] Comment on above: Performed By: #### B ENROLLMENT COUNSELOR, T7, LIPID, TSH, CMP, URIC #### Laboratory [address] [place] [address] Dr. Wally Zapien Protein [Mass/Vol] 7.0 g/dL Normal 6.4-8.2 [facility] Comment on above: Performed By: #### B ENROLLMENT COUNSELOR, T7, LIPID, TSH, CMP, URIC #### Laboratory [address] [address] [address] Wally Zapien Sodium [Moles/Vol] 141 mmol/L Normal 136-145 [facility] Comment on above: Performed By: #### B ENROLLMENT COUNSELOR, T7, LIPID, TSH, CMP, URIC #### Laboratory [address] [place] [address] Dr. Wally Zapien Urea nitrogen [Mass/Vol] 19.0 mg/dL Critically high 7.0-18.0 [facility] Comment on above: Performed By: #### B ENROLLMENT COUNSELOR, T7, LIPID, TSH, CMP, URIC #### Laboratory [address] [place] [address] Dr. Wally Zapien Urea nitrogen/Creatinine [Mass ratio] 25.7 mg/mg Normal The Comment on above: Performed By: #### B ENROLLMENT COUNSELOR, T7, LIPID, TSH, CMP, URIC #### Laboratory [address] [place] [address] Dr. Wally Zapien TSHon 09-24-2022 TSH 1.535 uIU/mL Normal 0.358-3.740 [facility] Comment on above: Performed By: #### U RCX #### Laboratory [address] [place] [address] Dr. Wally Zapien UA RANDOM W/MICROSCOPICon BACTERIA NONE SEEN Normal NONE SEEN [facility] Comment on above: Performed By: #### U RCX #### Laboratory [address] [place] [address] Dr. Wally Zapien Bilirubin Ql (U) Negative Normal NEGATIVE [facility] Comment on above: Performed By: #### U RCX #### Laboratory [address] [place] [address] Dr. Wally Zapien CAST NONE SEEN Normal NONE SEEN [facility] Comment on above: Performed By: #### U RCX #### Laboratory [address] [place] [address] Dr. Wally Zapien Clarity (U) CLEAR Normal CLEAR The Comment on above: Performed By: #### U RCX #### Laboratory [address] [place] [address] Dr. Wally Zapien Color (U) YELLOW Normal YELLOW [facility] Comment on above: Performed By: #### U RCX #### Laboratory [address] [place] [address] Dr. Wally Zapien Crystals LM Nom (Urine sed) NONE SEEN Normal NONE SEEN [facility] Comment on above: Performed By: #### U RCX #### Laboratory [address] [place] [address] Dr. Wally Zapien Epithelial cells LM Ql (Urine sed) FEW Abnormal NONE SEEN /RARE The Comment on above: Performed By: #### U RCX #### Laboratory [address] [place] [address] Dr. Wally Zapien Glucose Ql (U) Negative Normal NEGATIVE [facility] Comment on above: Performed By: #### U RCX #### Laboratory [address] [place] [address] Dr. Wlaly Zapien Hemoglobin Ql (U) TRACE-INTACT Abnormal NEGATIVE [facility] Comment on above: Performed By: #### U RCX #### Laboratory [address] [place] [address] Dr. Wally Zapien Ketones Ql (U) Negative Normal NEGATIVE [facility] Comment on above: Performed By: #### U RCX #### Laboratory [address] [place] [address] Dr. Wally Zapien LEUKOCYTES Negative Normal NEGATIVE [facility] Comment on above: Performed By: #### U RCX #### Laboratory [address] [place] [address] Dr. Wally Zapien MUCOUS LARGE Abnormal NONE SEEN [facility] Comment on above: Performed By: #### U RCX #### Laboratory [address] [place] [address] Dr. Wally Zapien Nitrite Ql (U) Negative Normal NEGATIVE [facility] Comment on above: Performed By: #### U RCX #### Laboratory [address] [place] [address] Dr. Wally Zapien pH (U) 6.5 [pH] Normal 5-9 The Comment on above: Performed By: #### U RCX #### Laboratory [address] [place] [address] Dr. Wally Zapien RBC 2-5 Abnormal 0-2 The Comment on above: Performed By: #### U RCX #### Laboratory [address] [place] [address] Dr. Wally Zapien SPEC GRAVITY 1.025 Normal 1.005-<=1.02 5 [facility] Comment on above: Performed By: #### U RCX #### Laboratory [address] [place] [address] Dr. Wally Zapien UA PROTEIN TRACE Normal NEGATIVE/ TRACE The Comment on above: Performed By: #### U RCX #### Laboratory [address] [place] [address] Dr. Wally Zapien Urobilinogen Qn (U) 1.0 {Suma'U}/dL Normal 0.2 - 1. 0 [facility] Comment on above: Performed By: #### U RCX #### Laboratory [address] [place] [address] Dr. Wally Zapien WBC 0-2 Abnormal NONE SEEN The Comment on above: Performed By: #### U RCX #### Laboratory [address] [place] [address] Dr. Wally Zapien URIC ACID SERUMon 09-24-2022 Urate [Mass/Vol] 3.7 mg/dL Normal 3.5-7.2 [facility] Comment on above: Performed By: #### B ENROLLMENT COUNSELOR, T7, LIPID, TSH, CMP, URIC #### Laboratory [address] [place] [address] Dr. Wally Zapien VITAMIN D 25 OHon 09-24-2022 VIT D 25-OH 42.6 ng/mL Normal [facility] Comment on above: Performed By: #### U RCX #### Laboratory [address] [place] [address] Dr. Wally Zapien VIT D RANGES SEE BELOW Normal The Comment on above: Result Comment: <20 ng/mL Vit D deficient 20 - <30 ng/mL Vit D insufficient 30 - 100 ng/mL Vit D sufficient >100 ng/mL Potential Toxicity Performed By: #### U RCX #### Laboratory [address] [place] [address] Dr. Wally Zapien CBC AUTO DIFFon 09-18-2022 BASO # 0.0 103/ul Normal 0.0-0.1 The Comment on above: Performed By: #### C BC #### Laboratory [address] [place] [address] Dr. Wally Zapien Basophils/100 WBC (Bld) 0.7 % Normal 0.2-2.0 [facility] Comment on above: Performed By: #### C BC #### Laboratory [address] [place] [address] Dr. Wally Zapien EO # 0.1 103/ul Normal 0.0-0.7 [facility] Comment on above: Performed By: #### C BC #### Laboratory [address] [place] [address] Dr. Wally Zapien Eosinophils/100 WBC (Bld) 2.8 % Normal 0.9-7.0 The Comment on above: Performed By: #### C BC #### Laboratory [address] [place] [address] Dr. Wally Zapien Erythrocyte distribution width (RBC) [Ratio] 12.7 % Normal 11.0-15.0 The Comment on above: Performed By: #### C BC #### Laboratory [address] [place] [address] Dr. Wally Zapien Hematocrit (Bld) [Volume fraction] 44.1 % Normal 42.0-54.0 [facility] Comment on above: Performed By: #### C BC #### Laboratory [address] [place] [address] Dr. Wally Zapien Hemoglobin (Bld) [Mass/Vol] 15.3 g/dL Normal 14.0-18.0 [facility] Comment on above: Performed By: #### C BC #### Laboratory [address] [place] [address] Dr. Wally Zapien IG # 0.01 10e3/ul Normal 0.00-0.03 [facility] Comment on above: Performed By: #### C BC #### Laboratory [address] [place] [address] Dr. Wally Zapien IG % 0.2 % Normal 0.0-0.5 [facility] Comment on above: Performed By: #### C BC #### Laboratory [address] [place] [address] Dr. Wally Zapien LYMPH # 1.8 103/ul Normal 1.2-3.8 [facility] Comment on above: Performed By: #### C BC #### Laboratory [address] [place] [address] Dr. Wally Zapien Lymphocytes/100 WBC (Bld) 43.0 % Normal 20.5-60.0 [facility] Comment on above: Performed By: #### C BC #### Laboratory [address] [place] [address] Dr. Wally Zapien MANUAL DIFF REQ NO Normal [facility] Comment on above: Performed By: #### C BC #### Laboratory [address] [place] [address] Dr. Wally Zapien MCH (RBC) [Entitic mass] 32.1 pg Normal 25.9-34.0 The Comment on above: Performed By: #### C BC #### Laboratory [address] [place] [address] Dr. Wally Zapien MCHC (RBC) [Mass/Vol] 34.7 g/dL Normal 29.9-35.2 The Comment on above: Performed By: #### C BC #### Laboratory [address] [place] [address] Dr. Wally Zapien MCV (RBC) [Entitic vol] 92.5 fL Normal 80.0-94.0 [facility] Comment on above: Performed By: #### C BC #### Laboratory [address] [place] [address] Dr. Wally Zapien MONO # 0.4 103/ul Normal 0.3-0.8 The Comment on above: Performed By: #### C BC #### Laboratory [address] [place] [address] Dr. Wally Zapien Monocytes/100 WBC (Bld) 9.2 % Normal 1.7-12.0 [facility] Comment on above: Performed By: #### C BC #### Laboratory [address] [place] [address] Dr. Wally Zapien NEUT # 1.9 103/ul Normal 1.4-6.5 [facility] Comment on above: Performed By: #### C BC #### Laboratory [address] [place] [address] Dr. Wally Zapien Neutrophils/100 WBC (Bld) 44.1 % Normal 43.0-75.0 [facility] Comment on above: Performed By: #### C BC #### Laboratory [address] [place] [address] Dr. Wally Zapien Platelet mean volume (Bld) [Entitic vol] 10.4 fL Normal 9.5-13.5 The Comment on above: Performed By: #### C BC #### Laboratory [address] [place] [address] Dr. Wally Zapien PLT 152 103/ul Normal 150-450 The Comment on above: Performed By: #### C BC #### Laboratory [address] [place] [address] Dr. Wally Zapien RBC 4.77 106/ul Normal 4.70-6.10 The Comment on above: Performed By: #### C BC #### Laboratory [address] [place] [address] Dr. Wally Zapien WBC 4.2 103/ul Normal 4.0-11.0 The Comment on above: Performed By: #### C BC #### Laboratory [address] [place], [place] 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 Gastrointestinal/Perit oneum: Postoperative changes are present of a partial [...] repair. 4. Cardiomegaly. Electronically authenticated by: JOELLE ATKINSON Date: 2022-09-18 13:40 Normal The ER URINE PROFILEon 3 Bilirubin Ql (U) SMALL Abnormal NEGATIVE [facility] Comment on above: Performed By: #### E KERRI WILLIS #### Laboratory [address] [place], [place] [address] Dr. Wally Zapien Clarity (U) SL CLOUDY Abnormal CLEAR The Comment on above: Performed By: #### Olinda WILLIS UMICRO #### Laboratory [address] [place] [address] Dr. Wally Zapien Color (U) RED Abnormal YELLOW The Comment on above: Performed By: #### Olinda WILLIS UMICRO #### Laboratory [address] [place] [address] Dr. Wally Zapien ERUAHMarga A micrscopic examination will be performed if indicated. Normal The Comment on above: Performed By: #### Olinda WILLIS UMICRO #### Laboratory [address] [place] [address] Dr. Wally Zapien Glucose Ql (U) Negative Normal NE[facility] Comment on above: Performed By: #### Olinda WILLIS UMICRO #### Laboratory [address] [place] [address] Dr. Wally Zapien Hemoglobin Ql (U) LARGE Abnormal NEGATIVE [facility] Comment on above: Performed By: #### Olinda WILLIS UMICRO #### Laboratory [address] [place] [address] Dr. Wally Zapien Ketones Ql (U) TRACE Abnormal NEGATIVE [facility] Comment on above: Performed By: #### Olinda WILLIS UMICRO #### Laboratory [address] [place] [address] Dr. Wally Zapien LEUKOCYTES TRACE Abnormal NEGATIVE The Comment on above: Performed By: #### Olinda WILLIS UMICRO #### Laboratory [address] [place] [address] Dr. Wally Zapien Nitrite Ql (U) Positive Abnormal NEGATIVE [facility] Comment on above: Performed By: #### Olinda WILLIS UMICRO #### Laboratory [address] [place] [address] Dr. Wally Zapien pH (U) 5.5 [pH] Normal 5-9 The Comment on above: Performed By: #### Olinda WILLIS UMICRO #### Laboratory [address] [place] [address] Dr. Wally Zapien Protein (U) [Mass/Vol] 100 mg/dL Abnormal NEGATIVE/ TRACE [facility] Comment on above: Performed By: #### E BIMAL WILLISRO #### Laboratory [address] [place] [address] Dr. Wally Zapien SPEC GRAVITY 1.025 Normal 1.005-<=1.02 5 [facility] Comment on above: Performed By: #### E BIMAL WILLISRO #### Laboratory [address] [place] [address] Dr. Wally Zapien UR MICRO IND INDICATED Normal [facility] Comment on above: Performed By: #### BIMAL PADRONRO #### Laboratory [address] [place] [address] Dr. Wally Zapien Urobilinogen Qn (U) 1.0 {Suma'U}/dL Normal 0.2 - 1. 0 [facility] Comment on above: Performed By: #### BIMAL PADRONRO #### Laboratory [address] [place] [address] Dr. Wally Zapien PROF CHEM 8 (BAS METB)on Anion gap [Moles/Vol] 10.5 mmol/L Normal [facility] Comment on above: Performed By: #### U RCX #### Laboratory [address] [place] [address] Dr. Wally Zapien Calcium [Mass/Vol] 8.6 mg/dL Normal 8.5-10.1 [facility] Comment on above: Performed By: #### U RCX #### Laboratory [address] [place] [address] Dr. Wally Zapien Chloride [Moles/Vol] 105 mmol/L Normal 98-107 The Comment on above: Performed By: #### U RCX #### Laboratory [address] [place] [address] Dr. Wally Zapien CO2 [Moles/Vol] 28.8 mmol/L Normal 21.0-32.0 [facility] Comment on above: Performed By: #### U RCX #### Laboratory [address] [address] [address] Wally Zapien Creatinine [Mass/Vol] 0.85 mg/dL Normal 0.70-1.30 [facility] Comment on above: Performed By: #### U RCX #### Laboratory [address] [address] [address] Wally Zapien EGFR-AF CZECH >60 Normal >=60 [facility] Comment on above: Performed By: #### U RCX #### Laboratory [address] [address] [address] Wally Zapien EGFR-NON AF CZECH >60 Normal >=60 [facility] Comment on above: Performed By: #### U RCX #### Laboratory [address] [address] [address] Wally Zapien Glucose [Mass/Vol] 112 mg/dL Critically high 74-106 [facility] Comment on above: Performed By: #### U RCX #### Laboratory [address] [address] [address] Wally Zapien Potassium [Moles/Vol] 4.3 mmol/L Normal 3.5-5.1 [facility] Comment on above: Performed By: #### U RCX #### Laboratory [address] [address] [address] Wally Zapien Sodium [Moles/Vol] 140 mmol/L Normal 136-145 [facility] Comment on above: Performed By: #### U RCX #### Laboratory [address] [address] [address] Wally Zapien Urea nitrogen [Mass/Vol] 23.0 mg/dL Critically high 7.0-18.0 [facility] Comment on above: Performed By: #### U RCX #### Laboratory [address] [address] [address] Wally Zapien Urea nitrogen/Creatinine [Mass ratio] 27.1 mg/mg Normal [facility] Comment on above: Performed By: #### U RCX #### Laboratory [address] [place] [address] Dr. Wally Zapien URINE MICROSCOPIC ONLYon BACTERIA TRACE Abnormal NONE SEEN The Comment on above: Performed By: #### E LAZARO UMICRO #### Laboratory [address] [place] [address] Dr. Wally Zapien Bacteria identified Cx Nom (U) NOT INDICATED Normal The Comment on above: Performed By: #### Olinda WILLIS UMICRO #### Laboratory [address] [place] [address] Dr. Wally Zapien CAST NONE SEEN Normal NONE SEEN The Comment on above: Performed By: #### E RUJanell UMICRO #### Laboratory [address] [place] [address] Dr. Wally Zapien Crystals LM Nom (Urine sed) NONE SEEN Normal NONE SEEN The Comment on above: Performed By: #### E RUJanell UMICRO #### Laboratory [address] [place] [address] Dr. Wally Zapien Epithelial cells LM Ql (Urine sed) RARE Normal NONE SEEN /RARE The Comment on above: Performed By: #### Olinda WILLIS UMICRO #### Laboratory [address] [place] [address] Dr. Wally Zapien MUCOUS NONE SEEN Normal NONE SEEN The Comment on above: Performed By: #### Olinda WILLIS UMICRO #### Laboratory [address] [place] [address] Dr. Wally Zapien RBC (U) [#/Vol] /uL Abnormal 0-2 [facility] Comment on above: Performed By: #### Olinda WILLIS UMICRO #### Laboratory [address] [place] [address] Dr. Wally Zapien WBC 2-5 Abnormal NONE SEEN The Comment on above: Performed By: #### Olinda WILLIS UMICRO #### Laboratory [address] [place] [address] Dr. Wally Zapien Vital Signs Date Time Vital Sign Value Performing Clinician Facility 06-22-2024 16:00-0400 Body temperature 98.42 [degF] Lazara Orzech [facility] 06-22-2024 16:00-0400 Diastolic blood pressure 76 mm[Hg] Lazara Orzech [facility] 06-22-2024 16:00-0400 Heart rate 77 /min Lazara Orzech [facility] 06-22-2024 16:00-0400 Respiratory rate 16 /min Lazara Orzech [facility] 06-22-2024 16:00-0400 Systolic blood pressure 138 mm[Hg] Lazaar Orzech [facility] 06-02-2024 11:50-0400 Diastolic blood pressure 84 mm[Hg] Lazara Orzech [facility] 06-02-2024 11:50-0400 Heart rate 156 /min Lazara Orzech [facility] 06-02-2024 11:50-0400 Respiratory rate 16 /min Lazara Orzech [facility] 06-02-2024 11:50-0400 Systolic blood pressure 95 mm[Hg] Lazara Orzech [facility] 03-17-2024 14:58-0400 Blood Pressure Location Lazara Orzech [facility] 03-17-2024 14:58-0400 Diastolic blood pressure 77 mm[Hg] Lazara Orzech [facility] 03-17-2024 14:58-0400 Heart rate 80 /min Lazara Orzech [facility] 03-17-2024 14:58-0400 Respiratory rate 16 /min Lazara Orzech [facility] 03-17-2024 14:58-0400 Systolic blood pressure 132 mm[Hg] Lazara Orzech [facility] 02-11-2024 09:59-0400 Blood Pressure Location Lazara Orzech [facility] 02-11-2024 09:59-0400 Diastolic blood pressure 84 mm[Hg] Lazara Orzech [facility] 02-11-2024 09:59-0400 Heart rate 71 /min Lazara Orzech [facility] 02-11-2024 09:59-0400 Systolic blood pressure 138 mm[Hg] Lazara Orzech [facility] 07-17-2023 15:40-0500 Body height 160.02 cm Rocio Chan Other [facility] Other 07-17-2023 15:40-0500 Body mass index (BMI) [Ratio] 37.55 kg/m2 Rocio Chan Other [facility] Other 07-17-2023 15:40-0500 Body temperature 98.2 [degF] Rocio Chan Other [facility] Other 07-17-2023 15:40-0500 Body weight 96.16 kg Rocio Chan Other [facility] Other 07-17-2023 15:40-0500 Diastolic blood pressure 76 mm[Hg] Rocio Chan Other [facility] Other 07-17-2023 15:40-0500 Respiratory rate 18 /min Rocio Chan Other [facility] Other 07-17-2023 15:40-0500 SaO2% (BldA) [Mass fraction] 96 % Rocio Chan Other [facility] Other 07-17-2023 15:40-0500 Systolic blood pressure 134 mm[Hg] Rocio Chan Other [facility] Other 09-26-2022 13:26-0500 Blood Pressure Location [place] [facility] 09-26-2022 13:26-0500 Diastolic blood pressure 74 mm[Hg] [place] [facility] 09-26-2022 13:26-0500 Heart rate 52 /min [place] [facility] 09-26-2022 13:26-0500 Systolic blood pressure 173 mm[Hg] [place] [facility] 04-16-2022 13:49-0400 Diastolic blood pressure 87 mm[Hg] [place] [facility] 04-16-2022 13:49-0400 Mean blood pressure 110 mm[Hg] [place] [facility] 04-16-2022 13:49-0400 Systolic blood pressure 156 mm[Hg] [place] [facility] 04-16-2022 13:37-0400 Blood Pressure Location [place] [facility] 04-16-2022 13:37-0400 Diastolic blood pressure 102 mm[Hg] [place] [facility] 04-16-2022 13:37-0400 Heart rate 81 /min [place] [facility] 04-16-2022 13:37-0400 Respiratory rate 16 /min [place] [facility] 04-16-2022 13:37-0400 Systolic blood pressure 191 mm[Hg] [place] [facility] Encounters Encounter Date Encounter Type Care Provider Facility Start: 09-03-2024 ambulatory PRIYA ELIZABETH Facili ty:[facility] Start: 08-10-2024 ambulatory [place] [facility] Fac[facility] ty:[facility] Start: 08-06-2024 End: 08-06-2024 ambulatory PRIYA ELIZABETH Facility:[facility] Start: 08-06-2024 End: 08-06-2024 Patient encounter procedure PRIYA ELIZABETH [facility] Start: 08-03-2024 ambulatory OLGA WATTERS [facility] Start: 07-21-2024 End: 07-21-2024 ambulatory Lazara X Orzech Facility:[facility] Start: 07-21-2024 End: 07-21-2024 Patient encounter procedure Lazara X Orzech [facility] Start: 07-20-2024 ambulatory Lazara X Orzech [facility] Start: 07-20-2024 End: 07-20-2024 ambulatory [facility] Start: 07-10-2024 Evaluation and management of inpatient [facility] Start: 07-09-2024 Evaluation and management of inpatient [facility] Start: 07-06-2024 End: 07-13-2024 Evaluation and management of inpatient [facility] Start: 06-22-2024 End: 06-22-2024 ambulatory Lazara X Orzech Facility:[facility] Start: 06-22-2024 End: 06-22-2024 Patient encounter procedure Lazara X Orzech [facility] Start: 06-02-2024 End: 06-02-2024 ambulatory Lazara X Orzech [place] Start: 06-02-2024 End: 06-02-2024 Lab Drop off Lazara X Orzech [facility] Start: 06-02-2024 End: 06-02-2024 ambulatory Lazara X Orzech Facility:[facility] Start: 06-02-2024 End: 06-02-2024 Patient encounter procedure Lazara X Orzech [facility] Start: 05-10-2024 End: 05-11-2024 Clinisync Result Encounter Phuong Campos MD Work Phone: [facility] Unsolicited Start: 05-10-2024 End: 05-11-2024 Clinisync Result Encounter Phuong Campos MD Work Phone: [facility] Unsolicited Start: 04-21-2024 End: 04-21-2024 ambulatory BAYRON [facility] Start: 04-17-2024 End: 04-21-2024 ambulatory [facility] Start: 04-17-2024 End: 04-21-2024 ambulatory [facility] Start: 04-17-2024 End: 04-20-2024 Evaluation and management of inpatient [facility] Start: 04-17-2024 End: 04-21-2024 Emergency department patient visit [facility] Start: 04-17-2024 End: 04-21-2024 ambulatory [facility] Start: 04-14-2024 ambulatory Lazara X Orzech Facilit y:[facility] Start: 04-07-2024 End: 04-07-2024 ambulatory [place] [facility] Facility:[id number] Start: 03-18-2024 End: 03-18-2024 ambulatory Emily Maria Facility:[facility] [place] Start: 03-18-2024 End: 03-18-2024 Patient encounter procedure Emily Maria [facility] Start: 03-17-2024 End: 03-17-2024 ambulatory Lazara X Orzech Facility:[facility] Start: 03-17-2024 End: 03-17-2024 Patient encounter procedure Lazara X Orzech [facility] Start: 02-11-2024 End: 02-11-2024 Lab Drop off Lazara X Orzech [facility] Start: 02-11-2024 End: 02-11-2024 ambulatory Lazara X Orzech [place] Start: 02-11-2024 End: 02-11-2024 Patient encounter procedure Lazara X Orzech [facility] Start: 11-18-2023 End: 11-19-2023 ambulatory Fabrice Dias MD Facility: [facility] Start: 10-28-2023 End: 10-29-2023 ambulatory Fabrice Dias MD Facility: [facility] Start: 09-30-2023 End: 10-01-2023 ambulatory Fabrice Dias MD Facility: [facility] Start: 2023 End: 09-24-2023 ambulatory [facility] Start: 07-17-2023 End: 07-17-2023 ambulatory Rocio Chan Other [facility] Other Start: 07-17-2023 Office outpatient visit 15 minutes Rocio Chan [facility] Start: 05-27-2023 End: 05-28-2023 ambulatory Fabrice Dias MD Facility: [facility] Start: 01-23-[address] BAYRON VELAZQUEZ . Facili ty:[facility] Start: 09-26-2022 End: 09-26-2022 Patient encounter procedure [place] [facility] Start: 09-24-2022 End: 09-25-[address] BAYRON VELAZQUEZ . Facility:[facility] Start: 09-18-2022 End: 09-18-2022 ambulatory KARLOS MELTON . Facility:[facility] Start: 04-16-2022 End: 04-16-2022 Patient encounter procedure [place] Maciel JAYDON [facility] Procedures Date Procedure Procedure Detail Performing Clinician Start: 05-10-2024 TB UA (CLEAN/CATCH) DRUM STOCK CLERK/MICRO IF IND. Phuong Campos MD Work Phone: Start: 09-24-2022 PSA screening KARLOSJOSE ALVAREZ . Comment on above: Performed By: #### U RCX #### Laboratory [address] [place] [address] Dr. Wally Zapien Start: 03-17-2019 Cystoscope, device ( physical object) [place] [facility] Cardiac catheterization Patr ick JAYDON Coronary artery bypass graft [place] [facility] Extraction of cataract Patri ck JAYDON Hydrocelectomy [place] MEYER S Inguinal herniorrhaphy Patri ck INTER[facility] Large intestine excision Pat noe INTERIAN[facility] Prosthetic arthropla sty of the hip [place] [facility] Repair of musculoten dinous cuff of shoulder [place] [facility] Tonsillectomy and adenoidectomy [place] [facility] Plan of Treatment Date Care Activity Detail Author Start: 06-30-2024 ambulatory Ambulatory Facility:[facility] Immunizations Immunization Date Immunization Notes Care Provider Guru lanacster 05-24-2022 influenza virus vacc ine, unspecified formulation [place] [facility] 04-20-2022 SARS-CoV-2 mRNA (psxxrdrnczp-hevf-jslrso e) vaccine [place] vitalclip [facility] 06-19-2021 SARS-CoV-2 (COVID-19 ) mRNA BNT-162b2 vax [employer] [facility] 06-01-2021 influenza virus vacc ine, unspecified formulation [employer] 05-23-2021 influenza virus vacc ine, unspecified formulation [employer] [facility] 11-10-2020 SARS-CoV-2 (COVID-19 ) mRNA BNT-162b2 vax [employer] [facility] 10-20-2020 SARS-CoV-2 (COVID-19 ) mRNA BNT-162b2 vax [employer] [facility] 08-04-2020 zoster vaccine recombinant [employer] [facility] 07-06-2020 SARS-CoV-2 (COVID-19 ) Ad26 vaccine, recombinant [employer] 06-24-2020 influenza virus vacc ine, unspecified formulation [employer] [facility] 06-03-2020 zoster vaccine recombinant [employer] [facility] 06-02-2020 SARS-CoV-2 (COVID-19 ) Ad26 vaccine, recombinant [employer] 05-26-2020 influenza virus vacc ine, unspecified formulation [place] [facility] 05-29-2019 influenza virus vacc ine, unspecified formulation [place] [facility] 06-17-2018 influenza virus vacc ine, unspecified formulation [place] [facility] 05-14-2017 influenza virus vacc ine, unspecified formulation [place] [facility] 05-14-2017 pneumococcal polysaccharide vaccine, 23 valent [place] [facility] 05-17-2016 influenza virus vacc ine, unspecified formulation [place] [facility] 05-17-2016 pneumococcal conjuga te vaccine, 13 valent [place] [facility] 05-16-2015 influenza virus vacc ine, unspecified formulation [place] [facility] Payers Date Payer Category Payer Medicare AETNA MEDICARE A DVANTAGE AETNA MEDICARE REPLACEMENT [id number] 2023-Present [address] [place] [address] [id number] 2022 Private Health Insurance 1957 Medicare [id number] 1940 Unknown [id number] 2.16.840.1.518150.3.579.2. 593 1942 Unknown [id number] 2.16.840.1.575939.3.579.2. 593 1942 Unknown [id number] 2.16.840.1.467325.3.579.2. 593 1942 Unknown [id number] 2.16.840.1.537743.3.579.2. 196 1942 Unknown [id number] 2.16.840.1.494117.3.579.2. 196 1942 Unknown [id number] 2.16.840.1.174857.3.579.2. 196 1942 Unknown [id number] 2.16.840.1.445689.3.579.2. 196 1942 Unknown [id number] 2.16.840.1.933754.3.579.2. 196 1942 Unknown [id number] 2.16.840.1.959267.3.579.2. 727 1942 Unknown [id number] 2.16.840.1.629186.3.579.2. 727 1942 Unknown [id number] 2.16.840.1.311316.3.579.2. 1286 1942 Unknown [id number] 2.16.840.1.342425.3.579.2. 1286 1942 Unknown [id number] 2.16.840.1.135118.3.579.2. 1286 1942 Unknown [id number] 2.16.840.1.075431.3.579.2. 1286 1942 Unknown [id number] 2.16.840.1.476946.3.579.2. 1286 1942 Unknown [id number] 2.16.840.1.279383.3.579.2. 1286 1942 Unknown [id number] 2.16.840.1.320751.3.579.2. 1286 1942 Unknown [id number] 2.16.840.1.628984.3.579.2. 1286 1942 Unknown [id number] 2.16.840.1.283584.3.579.2. 1286 1942 Unknown [id number] 2.16.840.1.323081.3.579.2. 727 1942 Unknown [id number] 2.16.840.1.158157.3.579.2. 72 1942 Unknown [id number] 2.16.840.1.634874.3.579.2. 72 1942 Unknown [id number] 2.16.840.1.147692.3.579.2. 72 1942 Unknown [id number] 2.16.840.1.225931.3.579.2. 1942 Unknown [id number] 2.16.840.1.899154.3.579.2. 72 1942 Unknown [id number] 2.16.840.1.765280.3.579.2. 1942 Unknown [id number] 2.16.840.1.905340.3.579.2. 72 1942 Unknown [id number] 2.16.840.1.465689.3.579.2. 1942 Unknown [id number] 2.16.840.1.724472.3.579.2. 727 1942 Unknown [id number] 2.16.840.1.303670.3.579.2. 1942 Unknown [id number] 2.16.840.1.488705.3.579.2. 72 1942 Unknown [id number] 2.16.840.1.102991.3.579.2. 72 1942 Unknown [id number] 2.16.840.1.563837.3.579.2. 727 Social History Date Type Detail Facility Start: 04-16-2022 End: 06-22-2024 Tobacco smoking status Never smoked tobacco (finding) [facility] Tobacco smoking status Never [facility] Sex Assigned At Male [facility] Tobacco smoking status NHIS Tobacco smoking consumption unknown [facility] Start: 1940 Sex assigned at Not on file [facility] Functional Status Date Assessment Result Facility 06-22-2024 Functional Status N/A [facility] 06-02-2024 Functional Status N/A [facility] 03-17-2024 Functional Status N/A [facility] 02-11-2024 Functional Status N/A [facility] 09-26-2022 Functional Status N/A [facility] 04-16-2022 Functional Status N/A [facility] Clinical Notes 10-06-2020 to 08-03-2024 Note Date & Type Note Facility 08-03-2024 Note Subjective Patient ID: Kyler Richard is a 83 y.o. male who presents for No chief complaint on file.. HPI:This is a 83-year-old male patient with urethral stricture with recurrent UTI and recent hematuria admitted to [facility] on 07/06 with hematuria. Upon presentation 16 urdu more catheter was exchanged for 24 [place] three-way s/p irrigation. WBC was 12k, urine Cx on 07/07 and 2/2 blood cx on 07/08 grew MRSA. Patient was initially on vancomycin. TTE negative for vegetations. During hospitalization, patient had complained of worsening lower back and neck pain. MRI lumbar demonstrated an enhancement within the disc space at L1-2 level difficult to completely exclude discitis and epidural abscess. Orthopedic surgery was consulted, they recommended no urgent surgical management, advised close follow-up outpatient for disc herniation. MRI cervical and thoracic did not demonstrate osteo or abscess. ID felt bacteremia was 2/2 to urinary source. Vanco was transitioned to Linezolid for 14 days at discharge.Unfortunately 1/2 BC on 07/10 would turn positive for MRSA after been negative. Patient is presenting to ID clinic for a visit ambulating in wheelchair. Family is present in room. Patient is tolerating oral Linezolid though reports gas. States gas improved with ambulation. Patient also reports some diarrhea. Otherwise denies any additional complaint including blood in the urine since discharge. Patient states he has an appointment with urology tomorrow. Patient denies fever, chills, nausea, vomiting. 08/03/2024 HPI: 83-year-old male with MRSA Bacteremia and MRSA complicated UTI presenting to Infectious Disease Clinic for a follow-up visit ambulating in wheelchair. Patient completed 3 weeks Linezolid on 08/01/2024. Repeat blood culture on 07/22/24 NGTD. Since last visit, patient states he has followed up with [facility]rology at [facility] and catheter was exchanged.Patient states he is slowly working on getting stronger. Patient and denies any new issues or concerns including hematuria, fever or chills. Past Medical History: No past medical history on file. 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 Medications: Current Outpatient Medications on File Prior to Visit Medication Sig Dispense Refill aspirin 81 mg EC tablet Take 1 tablet (81 mg) by mouth in the morning for 92 doses. 92 tablet 0 atorvastatin (Lipitor) 80 mg tablet Take 80 mg by mouth in the morning. carvedilol (Coreg) 6.25 mg tablet Take 1 tablet (6.25 mg) by mouth two times daily for 195 doses. 195 tablet 0 cetirizine (ZyrTEC) 10 mg chewable tablet Chew 10 mg in the morning. dorzolamide-timolol (Cosopt) 22.3-6.8 mg/mL ophthalmic solution Administer 1 drop into both eyes two times daily. icosapent ethyL (Vascepa) 1 gram capsule Take 2 g by mouth with breakfast and with evening meal. latanoprost (Xalatan) 0.005 % ophthalmic solution Administer 1 drop into the right eye at bedtime. tamsulosin (Flomax) 0.4 mg 24 hr capsule Take 0.4 mg by mouth in the morning. [] linezolid (Zyvox) 600 mg tablet Take 1 tablet (600 mg) by mouth two times daily for 7 days. 14 tablet 0 No current facility-administered medications on file prior to visit. Social History: Social History Socioeconomic History Marital status: Spouse name: None Number of children: None Years of education: None Highest education level: None Occupational History None Tobacco Use Smoking status: Never Smokeless tobacco: Never Substance and Sexual Activity Alcohol use: None Drug use: None Sexual activity: None Other Topics Concern None Social History Narrative None Social Determinants of Health Financial Resource Strain: Low Risk (07/09/2024) Overall Financial Resource Strain (CARDIA) Difficulty of Paying Living Expenses: Not hard at all Food Insecurity: No Food Insecurity (07/09/2024) Hunger Vital Sign Worried About Running Out of Food in the Last Year: Never true Ran Out of Food in the Last Year: Not on file Transportation Needs: No Transportation Needs (07/09/2024) Transportation Lack of Transportation (Medical): No Lack of Transportation (Non-Medical): Not on file Physical Activity: Not on file Stress: Not on file Social Connections: Not on file Intimate Partner Violence: Unknown (07/09/2024) Humiliation, Afraid, Rape, and Kick questionnaire Fear of Current or Ex-Partner: No Emotionally Abused: Not on file Physically Abused: Not on file Sexually Abused: Not on file Housing Stability: Low Risk (07/09/2024) Housing Stability Vital Sign Unable to Pay for Housing in the Last Year: No Number of Times Moved in the Last Year: N (more content not included)... [facility] 07-21-2024 Hospital Discharge instructions Patient Education 07/21/2024 12:20:44 Antibiotic Medicine, Adult Antibiotic Medicine, Adult Antibiotic medicines are used to treat infections caused by bacteria. These medicines do not work for illnesses caused by viruses. Antibiotics work by killing the bacteria that are making you sick, but they can also have serious side effects. Antibiotics must be used safely and only when needed. When do I need to take antibiotics? You may need antibiotics for: A urinary tract infection (UTI). Strep throat. Bacterial sinus infection. Meningitis. Serious lung infections. Your health care provider may start you on antibiotics while you are waiting for test results. Tests may include a culture of the throat, urine, blood, or mucus. Your health care provider may change or stop your antibiotic depending on your test results. When are antibiotics not needed? You do not need antibiotics for most common illnesses. These illnesses may be caused by a virus, not by bacteria. You do not need antibiotics for: The common cold. The flu (influenza). Sore throat. Discolored mucus. Bronchitis. Antibiotics are not always needed for all infections caused by bacteria. Many of these infections clear up on their own. Do not take antibiotics when they are not needed. How long should I take my antibiotic? You must take the entire amount prescribed to you. Take your antibiotics as told by your health care provider. Do not stop taking your antibiotics even if you start to feel better. If you stop taking them too soon: You may feel sick again. Your infection may get harder to treat. Each course of antibiotics needs a different length of time to work. The length of time may vary from a few days to a few weeks. What if I miss a dose? Try not to miss any doses of medicine. If you miss a dose, call your health care provider or pharmacist for help. Sometimes, it is okay to take the missed dose as soon as possible. Do not take double or extra doses. What are the risks of taking antibiotics? Antibiotics can cause: Allergic reactions. Nausea. Yeast infections. Liver problems. Antibiotics can also cause an infection called Clostridioides difficile (C. difficile or C. diff), which causes severe diarrhea. This infection happens when the antibiotics kill the healthy bacteria in your intestines. This allows C. diff to grow. C. diff needs to be treated right away. Let your health care provider know if: You have diarrhea while taking an antibiotic. You have diarrhea after you stop taking an antibiotic. C. diff infection can start weeks after stopping the antibiotic. Taking an antibiotic also puts you at risk for getting sick in the future with bacteria that do not respond to medicine (antibiotic-resistant infection). Antibiotics can cause bacteria to change so that if the antibiotic is taken again, the medicine cannot kill the bacteria. These infections can be more serious because they are hard, or sometimes impossible, to treat. Do antibiotics affect control? control pills may not work while you are taking antibiotics. If you are taking control pills: Keep taking them as usual. Use a second form of control, such as a condom, to avoid unwanted . Do this for as long as told by your health care provider. What else should I know about taking antibiotics? Take antibiotics exactly as told. Take the correct amount of medicine at the same time each day. Ask your health care provider: ?How long to wait between doses. ?If you should take your antibiotic with food or water. ?If you should avoid certain foods, drinks, or medicines while taking your antibiotics. ?If you need to watch for any side effects. Use only the antibiotics prescribed to you by your health care provider. Do not use antibiotics prescribed for someone else. Drink a large glass of water when taking your antibiotics unless told otherwise. Drink enough fluid to keep your urine pale yellow. Ask your pharmacist for a dosage syringe, cup, or spoon that correctly measures your antibiotics. Ask your pharmacist or health care provider how to safely get rid of leftover medicine. Follow these instructions at home: Take your antibiotics as told by your health care provider. Do not stop taking your antibiotics even if you start to feel better. Return to your normal activities as told by your health care provider. Ask your health care provider what activities are safe for you. Contact a health care provider if: Your symptoms get worse. You have new joint pain or muscle aches that begin after starting your antibiotic. You have side effects from your antibiotic, such as: ?Stomach pain. ?Diarrhea. ?Nausea. ?White patches in your mouth or throat. Get help right away if: You have signs of a severe allergic reaction to antibiotics. If you have any of these signs, stop taking the antibiotic right away. Signs may include: ?Raised, itchy, red bumps on your skin (hives). ?Skin rash. ?Trouble breathing. ?High-pitched whistling sounds when you breathe, most often when you breathe out (wheezing). ?Swelling anywhere on your body. ?Feeling dizzy. ?Vomiting. You have signs of liver problems, such as: ?Dark or blood-colored urine. ?Yellow color to your skin. ?Bruising or bleeding easily. You have severe diarrhea, bloody diarrhea, or stomach cramps. You have a severe headache. These symptoms may be an emergency. Get help right away. Call 911. Do not wait to see if the symptoms will go away. Do not drive yourself to the hospital. This information is not intended to replace advice given to you by your health care provider. Make sure you discuss any questions you have with your health care provider. Document Revised: 03/12/2023 Document Reviewed: 03/12/2023 [employer] Patient Education 2023 [employer]. [facility] Stephany 07-21-2024 Note Patient Education Caregiving Antibiotic Medicine, Adult Antibiotic medicines are used to treat infections caused by bacteria. These medicines do not work for illnesses caused by viruses. Antibiotics work by killing the bacteria that are making you sick, but they can also have serious side effects. Antibiotics must be used safely and only when needed. When do I need to take antibiotics? You may need antibiotics for: ??? A urinary tract infection (UTI). ??? Strep throat. ??? Bacterial sinus infection. ??? Meningitis. ??? Serious lung infections. Your health care provider may start you on antibiotics while you are waiting for test results. Tests may include a culture of the throat, urine, blood, or mucus. Your health care provider may change or stop your antibiotic depending on your test results. When are antibiotics not needed? You do not need antibiotics for most common illnesses. These illnesses may be caused by a virus, not by bacteria. You do not need antibiotics for: ??? The common cold. ??? The flu (influenza). ??? Sore throat. ??? Discolored mucus. ??? Bronchitis. Antibiotics are not always needed for all infections caused by bacteria. Many of these infections clear up on their own. Do not take antibiotics when they are not needed. How long should I take my antibiotic? You must take the entire amount prescribed to you. Take your antibiotics as told by your health care provider. Do not stop taking your antibiotics even if you start to feel better. If you stop taking them too soon: ??? You may feel sick again. ??? Your infection may get harder to treat. Each course of antibiotics needs a different length of time to work. The length of time may vary from a few days to a few weeks. What if I miss a dose? Try not to miss any doses of medicine. If you miss a dose, call your health care provider or pharmacist for help. Sometimes, it is okay to take the missed dose as soon as possible. Do not take double or extra doses. What are the risks of taking antibiotics? Antibiotics can cause: ??? Allergic reactions. ??? Nausea. ??? Yeast infections. ??? Liver problems. Antibiotics can also cause an infection called Clostridioides difficile (C. difficile or C. diff), which causes severe diarrhea. This infection happens when the antibiotics kill the healthy bacteria in your intestines. This allows C. diff to grow. C. diff needs to be treated right away. Let your health care provider know if: ??? You have diarrhea while taking an antibiotic. ??? You have diarrhea after you stop taking an antibiotic. C. diff infection can start weeks after stopping the antibiotic. Taking an antibiotic also puts you at risk for getting sick in the future with bacteria that do not respond to medicine (antibiotic-resistant infection). Antibiotics can cause bacteria to change so that if the antibiotic is taken again, the medicine cannot kill the bacteria. These infections can be more serious because they are hard, or sometimes impossible, to treat. Do antibiotics affect control? control pills may not work while you are taking antibiotics. If you are taking control pills: ??? Keep taking them as usual. ??? Use a second form of control, such as a condom, to avoid unwanted . Do this for as long as told by your health care provider. What else should I know about taking antibiotics? Take antibiotics exactly as told. ??? Take the correct amount of medicine at the same time each day. ??? Ask your health care provider: ? How long to wait between doses. ? If you should take your antibiotic with food or water. ? If you should avoid certain foods, drinks, or medicines while taking your antibiotics. ? If you need to watch for any side effects. ??? Use only the antibiotics prescribed to you by your health care provider. Do not use antibiotics prescribed for someone else. ??? Drink a large glass of water when taking your antibiotics unless told otherwise. Drink enough fluid to keep your urine pale yellow. ??? Ask your pharmacist for a dosage syringe, cup, or spoon that correctly measures your antibiotics. ??? Ask your pharmacist or health care provider how to safely get rid of leftover medicine. Follow these instructions at home: ??? Take your antibiotics as told by your health care provider. Do not stop taking your antibiotics even if you start to feel better. ??? Return to your normal activities as told by your health care provider. Ask your health care provider what activities are safe for you. Contact a health care provider if: ??? Your symptoms get worse. ??? You have new joint pain or muscle aches that begin after starting your antibiotic. ??? You have side effects from your antibiotic, such as: ? Stomach pain. ? Diarrhea. ? Nausea. ? White patches in your mouth or throat. Get help right away if: ??? You have sig (more content not included)... [facility] 07-20-2024 Note 07/20/2024 Subjective Patient ID: Kyler Richard is a 83 y.o. male who presents for No chief complaint on file.. HPI:This is a 83-year-old male patient with urethral stricture with recurrent UTI and recent hematuria admitted to [facility] on 07/06 with hematuria. Upon presentation 16 urdu more catheter was exchanged for 24 [place] three-way s/p irrigation. WBC was 12k, urine Cx on 07/07 and 2/2 blood cx on 07/08 grew MRSA. Patient was initially on vancomycin. TTE negative for vegetations. During hospitalization, patient had complained of worsening lower back and neck pain. MRI lumbar demonstrated an enhancement within the disc space at L1-2 level difficult to completely exclude discitis and epidural abscess. Orthopedic surgery was consulted, they recommended no urgent surgical management, advised close follow-up outpatient for disc herniation. MRI cervical and thoracic did not demonstrate osteo or abscess. ID felt bacteremia was 2/2 to urinary source. Vanco was transitioned to Linezolid for 14 days at discharge.Unfortunately 1/2 BC on 07/10 would turn positive for MRSA after been negative. Patient is presenting to ID clinic for a visit ambulating in wheelchair. Family is present in room. Patient is tolerating oral Linezolid though reports gas. States gas improved with ambulation. Patient also reports some diarrhea. Otherwise denies any additional complaint including blood in the urine since discharge. Patient states he has an appointment with urology tomorrow. Patient denies fever, chills, nausea, vomiting. Past Medical History: History reviewed. No pertinent past medical history. Patient Active Problem List Diagnosis Hematuria Cerebrovascular accident (CVA) due to occlusion of precerebral artery (CMS/HCC) Penile hypospadias Coronary artery disease involving [place] coronary artery of [place] heart without angina pectoris Past Surgical History: History reviewed. No pertinent surgical history. Medications: Current Outpatient Medications on File Prior to Visit Medication Sig Dispense Refill aspirin 81 mg EC tablet Take 1 tablet (81 mg) by mouth in the morning for 92 doses. 92 tablet 0 atorvastatin (Lipitor) 80 mg tablet Take 80 mg by mouth in the morning. carvedilol (Coreg) 6.25 mg tablet Take 1 tablet (6.25 mg) by mouth two times daily for 195 doses. 195 tablet 0 cetirizine (ZyrTEC) 10 mg chewable tablet Chew 10 mg in the morning. dorzolamide-timolol (Cosopt) 22.3-6.8 mg/mL ophthalmic solution Administer 1 drop into both eyes two times daily. icosapent ethyL (Vascepa) 1 gram capsule Take 2 g by mouth with breakfast and with evening meal. latanoprost (Xalatan) 0.005 % ophthalmic solution Administer 1 drop into the right eye at bedtime. linezolid (Zyvox) 600 mg tablet Take 1 tablet (600 mg) by mouth two times daily for 24 doses. 24 tablet 0 tamsulosin (Flomax) 0.4 mg 24 hr capsule Take 0.4 mg by mouth in the morning. No current facility-administered medications on file prior to visit. Social History: Social History Socioeconomic History Marital status: Spouse name: None Number of children: None Years of education: None Highest education level: None Occupational History None Tobacco Use Smoking status: Never Smokeless tobacco: Never Substance and Sexual Activity Alcohol use: None Drug use: None Sexual activity: None Other Topics Concern None Social History Narrative None Social Determinants of Health Financial Resource Strain: Low Risk (07/09/2024) Overall Financial Resource Strain (CARDIA) Difficulty of Paying Living Expenses: Not hard at all Food Insecurity: No Food Insecurity (07/09/2024) Hunger Vital Sign Worried About Running Out of Food in the Last Year: Never true Ran Out of Food in the Last Year: Not on file Transportation Needs: No Transportation Needs (07/09/2024) Transportation Lack of Transportation (Medical): No Lack of Transportation (Non-Medical): Not on file Physical Activity: Not on file Stress: Not on file Social Connections: Not on file Intimate Partner Violence: Unknown (07/09/2024) Humiliation, Afraid, Rape, and Kick questionnaire Fear of Current or Ex-Partner: No Emotionally Abused: Not on file Physically Abused: Not on file Sexually Abused: Not on file Housing Stability: Low Risk (07/09/2024) Housing Stability Vital Sign Unable to Pay for Housing in the Last Year: No Number of Times Moved in the Last Year: Not on file Homeless in the Last Year: No Family History: No family history on file. Allergies: No Known Allergies Review of Systems Constitutional: Negative. Negative for activity change. HENT: Negative. Eyes: Negative. Respiratory: Negative. Cardiovascular: Negative. Gastrointestinal: Negative. Endocrine: Negative. Genitourinary: Negative. Musculoskeletal: Positive for gait problem. Skin: Negative. Psychiatric/Behavioral: Negative. Objective BP 124/77 Pul (more content not included)... [facility] 07-13-2024 Note Occupational Therapy Occupational Therapy Treatment Patient Name: Kyler Richard : 1940 Today's Date: 07/13/2024 Time in:1123 Time out:1152 Total time:29 min Problem List Patient Active Problem List Diagnosis Hematuria Cerebrovascular accident (CVA) due to occlusion of precerebral artery (CMS/HCC) Penile hypospadias Coronary artery disease involving [place] coronary artery of [place] heart without angina pectoris 07/13/24 1152 OT Last Visit OT Received On 07/13/24 General:RN approve oob tx session,ended session with patient in bed with call light, bed alarm on, RN aware of leaking IV Subjective Patient states I am just hoping to get out of here soon, and I think it would feel good to get back into bed from this chair Family/Caregiver Present No Precautions Medical Precautions fall risk, telemetry, more, bed alarm Pain Assessment Pain Assessment No/denies pain Cognition Overall Cognitive Status WFL Arousal/Alertness Appropriate responses to stimuli Orientation Level Oriented X4 Following Commands Follows one step commands with increased time Safety Judgment Decreased awareness of need for safety Awareness of Errors Assistance required to correct errors made Cognition Comments Patient requires increased cues for initation and follow through General Assessment Hearing [place] - hearing aides in Functional Standing Tolerance Functional Standing Tolerance Comments Patient tolerate sit to stand transfer from bedside chair, and complete functional mobility around bed to sit at EOB. Patient tolerate static standing as customs entry writer attempt to clean IV as it was leaking fluid and blood (notified RN who entered) Static Sitting Balance Static Sitting-Balance Support Right upper extremity supported;Left upper extremity supported;Feet supported Static Sitting-Level of Assistance Distant supervision Static Sitting-Comment/Number of Minutes patient seated EOB Dynamic Sitting Balance Dynamic Sitting-Balance Support Unilateral upper extremity supported Dynamic Sitting-Balance Reaching for objects;Reaching across midline Dynamic Sitting Balance-Level of Assistance Close supervision Dynamic Sitting-Comments Patient seated EOB Static Standing Balance Static Standing-Balance Support Right upper extremity supported;Left upper extremity supported;With device (RW) Static Standing-Level of Assistance Close supervision Static Standing-Comment/Number of Minutes no LOB assist with IV pole Dynamic Standing Balance Dynamic Standing-Balance Support With device (RW) Dynamic Standing Balance-Level of Assistance Contact guard Dynamic Standing-Comments patient slightly unsteady however no LOB Bed Mobility 1 Bed Mobility From 1 Supine Bed Mobility Type 1 To Bed Mobility to 1 Short sit Level of Assistance 1 Minimum assistance Bed Mobility Comments 1 Assist for progressing LE's to get into bed, assist with boost to HOB Transfers Transfer Yes Transfer 1 Transfer From 1 Chair with arms;Sit Transfer Type 1 To and from Transfer to 1 Stand Technique 1 Sit to stand;Stand to sit Transfer Device 1 rolling walker Transfer Level of Assistance 1 Minimum assistance;Moderate verbal cues Trials/Comments 1 Patient tolerate sit to stand from bedside chair, cues to push from bedside chair Transfers 2 Transfer From 2 Stand Transfer Type 2 To Transfer to 2 Sit;Bed Technique 2 Stand to sit Transfer Device 2 rolling walker Transfer Level of Assistance 2 Minimum assistance Trials/Comments 2 Patient complete stand to sit onto bed, cues for positioning and to reach back, increased time to complete Activity Tolerance Ambulation comments Patient complete sit to stand transfer and functional mobility around bed, increased time for functional mobility as patient demonstrates decreased step length and occasional shuffle/pauses for conversation. Cues for walker positioning Activity Tolerance Comments patient tolerate session, hindered by IV leaking etc and fatigue OT Assessment OT Impairments Decreased ADL status;Decreased safe judgment during ADL;Decreased endurance;Decreased IADLs;Decreased functional mobility OT Assessment/RN PHYSICIAN OFFICE Summary patient tolerate functional mobility, and may cont to benefit from therapy to continue to progress and prepare patient for return to home Prognosis Good Evaluation/Treatment Tolerance Patient tolerated treatment well;Patient limited by fatigue Medical Staff Made Aware Yes OT Education/Comments (safety awareness, transfer techniques, and preparing for returning) Plan Level of assist 1 assist Treatment Interventions ADL retraining OT Plan Skilled OT OT Frequency 5 times per week until discharge & PRN OT Discharge Recommendations Home OT (with assist) OT - Discharge Recommendations Placed Yes OT Goals: Multi-Disciplinary Problems (from Occupational Therapy) Active Problems Not on file Resolved (more content not included)... 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 male with a PMH of recent L small vessel CVA w minimal R sided deficits, hypospadias, and history of CAD s/p CABG x4 ~2006, who presents from [facility] ED as transfer with a chief complaint of recurrent hematuria. Patient denies requiring a More catheter initially after stroke back in March, but began having episodes of hematuria and intermittent obstruction secondary to clots prompting [facility]. Due to multiple trips back to the ED and only limitedly successful irrigation attempts, patient was transferred here for inpatient urological care. His outpatient urologist is Dr. Interiano. Hemoglobin has been stable in the 15's. Of note, patient was not taking Plavix prior to his last stroke and stroke team documented that patient was only required to be on Plavix for 21 days after which she would need to continue aspirin indefinitely. From what I see in the records patient has been only on Plavix since his stroke. Urology was consulted. More catheter was exchanged with increase in size, urology recommended maintaining More catheter on discharge. Patient's hematuria resolved, hemoglobin remained stable. Urine culture grew MRSA, patient was started on vancomycin. 09/27 blood cultures 07/09 came positive for MRSA. Infectious disease was consulted. TTE 07/09/2024 negative for infective endocarditis. MRI cervical, thoracic, lumbar spine was ordered due to concern for epidural abscess vs discitis. MRI cervical, thoracic spine showed multilevel disc disease with no evidence of discitis or epidural abscess. MRI lumbar spine showed multilevel disc disease and facet arthropathy, large disc herniation with extruded disc material L1-L2 level with central canal stenosis, it showed some enhancement with difficulty to exclude discitis and epidural abscess formation. Orthopedic surgery was consulted, they recommended no urgentsurgical management, advised close follow-up outpatient for disc herniation. Blood cultures from 07/10 and 07/11 no growth till date. Patient was discharged on oral linezolid to complete 2 weeks of therapy. Patient is advised close follow-up with infectious disease on discharge. PT/OT evaluated patient and recommended SNF placement, patient's family denied and wanted to take him home. Patient discharged home with home health care. Surgical, Invasive or Diagnostic Procedures Done During Admission: None Consultations During Admission: Infectious Disease, Orthopedics, and Urology Dear Dr. Marcus MD, Kyler is advised to follow up with you within 1-2 weeks. Items to follow up in ambulatory setting: None Follow-up with: Infectious Disease, Orthopedics, and Urology Scheduled appointments: Future Appointments Date Time Provider Department Center 07/20/2024 9:00 AM Olga Watters NP [facility] Your medication list START taking these medications Instructions Last Dose Given Next Dose Due aspirin 81 mg EC tablet Start taking on: July 14, 2024 Take 1 tablet (81 mg) by mouth in the morning for 92 doses. carvedilol 6.25 mg tablet Commonly known as: Coreg Take 1 tablet (6.25 mg) by mouth two times daily for 195 doses. linezolid 600 mg tablet Commonly known as: Zyvox Take 1 tablet (600 mg) by mouth two times daily for 24 doses. CONTINUE taking these medications Instructions Last Dose Given Next Dose Due atorvastatin 80 mg tablet Commonly known as: Lipitor cetirizine 10 mg chewable tablet Commonly known as: ZyrTEC dorzolamide-timolol 22.3-6.8 mg/mL ophthalmic solution Commonly known as: Cosopt Flomax 0.4 mg 24 hr capsule Generic drug: tamsulosin icosapent ethyL 1 gram capsule Commonly known as: Vascepa latanoprost 0.005 % ophthalmic solution Commonly known as: Xalatan STOP taking these medications clopidogrel 75 mg tablet Commonly known as: Plavix Where to Get Your Medications These medications were sent to [facility] - [place], [place] - [address] [place] [address] [place] [address], [facility] [address] aspirin 81 mg EC tablet carvedilol 6.25 mg tablet linezolid 600 mg tablet K[place]er has No Known Allergies. [place]position: [place] [facility] [place] Discharge Condition: Good Code Status: Full Code Diagnostic Results Hematology: Results from last 7 days Lab Units (more content not included)... [facility] 07-13-2024 Note Discharge Planning U pdate: 1220 Spoke with patient face to face. Patient has DC order in place. Patient stated he is currently active with [facility]. SW placed return referral to [facility] via [facility], awaiting response. 2:55pm [facility] accepting, AVS sent. Patient stated family will transport upon discharge. No further OTM needs discovered at this time. 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 Referral Reason Other (Comment) (Discharge Planning) Patient Information Primary Caregiver Self Activities of Daily Living Assistive Device Cane;Walker;Wheelchair;Other (Comment) (has wheelchair, walker, cane, and rollator at home) Living Arrangement (Current/Prior to Hospitalization) Private residence (home, lives with ) Ambulation Independent Dressing Independent Feeding Independent Behavior Oriented Communication Talks;Understands speaking;Understands Italian Income Information Income Source Unemployed (retired) Referral To Financial Resources (denied any needs) Community Resources (denied any needs) Discharge Planning Support Systems Spouse/significant other;Children (, children) Type of Residence Private residence (house, lives with ) Will patient need Precert for Post Acute needs? Yes ([employer] Medicare Advantage) Patient's goal for discharge Return back home Does the patient need discharge transport arranged? No (Stated family will transport him home upon discharge) [facility] 07-13-2024 Note Physical Therapy Physical Therapy Treatment Patient Name: Kyler Richard : 1940 Today's Date: 07/13/2024 Patient Active Problem List Diagnosis Hematuria Cerebrovascular accident (CVA) due to occlusion of precerebral artery (CMS/HCC) Penile hypospadias Coronary artery disease involving [place] coronary artery of [place] heart without angina pectoris Objective pt agreeable to participate with therapy @ this time. Upon arrival pt in supine with HOB elevated. General Visit Information: PT Last Visit PT Received On: 07/13/24 Response to Previous Treatment: Patient with no complaints from previous session. General Family/Caregiver Present: No Subjective: pt agreeable to participate with therapy. pt denies c/o pain @ this time however has reports of R knee discomfort when he ambulates. Pt with neoprene brace donned to R knee upon arrival. Activity Tolerance Activity Tolerance Ambulation comments: pt amb pt amb 125 ft RW Number of Rest Breaks: (many standing rest breaks during amb) Activity Tolerance Comments: pt edilma amb & stairs Precautions Precautions Medical Precautions: fall risk, telemetry, more, bed alarm Pain Pain Assessment Pain Assessment: No/denies pain Cognition Cognition Overall Cognitive Status: Within Functional Limits Arousal/Alertness: Appropriate responses to stimuli Orientation Level: Oriented X4 Following Commands: Follows one step commands consistently, Follows one step commands with increased time General Assessment Static Sitting Balance Static Sitting Balance Static Sitting-Balance Support: Right upper extremity supported, Left upper extremity supported, Feet supported Static Sitting-Level of Assistance: Distant supervision (to ensure pt safety) Static Sitting-Comment/Number of Minutes: pt seated EOB Dynamic Sitting Balance Dynamic Sitting Balance Dynamic Sitting-Balance Support: Unilateral upper extremity supported, Feet supported Dynamic Sitting-Balance: Reaching for objects, Reaching across midline Dynamic Sitting Balance-Level of Assistance: Close supervision (to ensure pt safety) Dynamic Sitting-Comments: pt seated EOB Static Standing Balance Static Standing Balance Static Standing-Balance Support: Right upper extremity supported, Left upper extremity supported, With device (RW) Static Standing-Level of Assistance: Close supervision Static Standing-Comment/Number of Minutes: no LOB or LE buckling noted Dynamic Standing Balance Dynamic Standing Balance Dynamic Standing-Balance Support: Unilateral upper extremity supported, With device (RW) Dynamic Standing-Balance: Reaching for objects, Reaching across midline Dynamic Standing Balance-Level of Assistance: Contact guard Dynamic Standing-Comments: pt slightly unsteady however no LOB General Assessments: Activity Tolerance Ambulation comments: pt amb pt amb 125 ft RW Number of Rest Breaks: (many standing rest breaks during amb) Activity Tolerance Comments: pt edilma amb & stairs Cognition Overall Cognitive Status: Within Functional Limits Arousal/Alertness: Appropriate responses to stimuli Orientation Level: Oriented X4 Following Commands: Follows one step commands consistently, Follows one step commands with increased time Treatment: Therapeutic Exercise Therapeutic Exercise Time Entry: 15 Therapeutic Exercise Activity 1: 10 reps Bilat UE AROM of: shoulder flex, shoulder abd/add, horizontal abd/add, forearm supination/pronation, rows & elbow ext/flex while seated Therapeutic Exercise Activity 2: Bilat LE AROM @ 10 reps of: hip abd/add, heels slide, SLR, quad set, hamstring set, gluteal set, PF/DF, marches, LAQ while positioned in supine & seated Therapeutic Activity Therapeutic Activity Time Entry: 25 Therapeutic Activity 1: supine to sit Therapeutic Activity 2: static/dynamic sit Therapeutic Activity 3: static/dynamic stand Therapeutic Activity 4: sit<->stand Gait Training Gait Training Time Entry: 30 Gait Training Activity 1: 125 ft RW, 15 ft x2 RW Gait Training Activity 2: 3 stair steps x2 Ambulation Ambulation: Yes Ambulation 1 Surface 1: Level tile Device 1: Rolling walker Assistance 1: Contact guard, Minimal verbal cues Quality of Gait 1: very slow paced gait, many standing pauses, very small advancements taken, decreased step length, decreased step height, unsteady when turning, no LOB or LE buckling, holds RW far from COG on occasion Comments/Distance (ft) 1: 125 ft, 15 ft x2 Stairs Stairs: Yes Stairs Rails 1: Right, Left Assistance 1: Contact guard Quality of Stairs 1: advances with LLE during ascend, advances with RLE in retro during descend Comment/Number of Steps 1: 3 x2 stair steps @ 4 inch of height Bed Mobility Bed Mobility: Yes Bed Mobility 1 Bed Mobility From 1: Supine Bed Mobility Type 1: To Bed Mobility to 1: Short sit Level of Assistance 1: Moderate assistance (more content not included)... [facility] 11-18-2024 Note Attestation signed by Ancelmo Branham MD at 07/13/2024 4:51 PM I performed a history and physical examination of the patient Kyler Richard, I independently reviewed the laboratory work and imaging as well as other studies mentioned in the above note; I have seen the patient along with and discussed the management with the Infectious Diseases resident, Dr Greco I have reviewed the above note, I agree with the findings and plan of care with the following additions and corrections: Plan for 12 days linezolid to complete 14 from the first negative culture I believe his bacteremia is of urinary source, which is unusual for Staph but very likely given that he presented with hemorrhagic cystitis and no fever and developed his first fever after manual bladder irrigation which could have pushed retrograde the infected urine. Will need monitoring of his CBC as outpatient. His platelets are OK today See us in a week Thank you for allowing us to participate in the care of this patient. . Infectious Diseases - Inpatient daily Progress Note - Patient name: Kyler Richard Patient Today's Date and Time: 07/13/2024, 1:03 PM Admission Date: 07/06/2024 Assessment/Plan Impression: MRSA bacteremia with urinary source after more placement On 07/08 patient developed a fever of 100.9 Increased WBC of 12.11 On 07/08, 2/2 positive blood cultures positive for gram positives cocci in clusters Echo done on 07/09 showed no significant valvular abnormalities Repeat blood cx from 07/10 and 07/11 NGTD Spine MRI no concern for discitis or abscess, evaluated by ortho #MRSA UTI- complicated UTI with more catheter in place Increased WBC of 12.11 UA positive for nitrites, leukocytes, RBCS, and WBCs On 07/07 Positive urine culture for MRSA #BPH #Recurrent hematuria likely to recent urological procedure or chemoRT # left hip prosthetic joint, has no pain or complaints there and on exam no swelling or tenderness Recommendations: Continue Vancomycin while inpatient Unfortunately, we are unable to switch him to daptomycin due to high dose statin that cannot be held due to recent stoke- discussed this primary team Patient will be switched to Linezolid po for 12 days on discharge He will need a 10 day follow up with ID after discharge Subjective HPI and Interval history: Kyler Richard is a 83 y.o.-year-old male with a past medical history of CVA with right sided deficits, CAD s/p CABG 11/30, colon cancer s/p chemo/rt in the , and BPH, urethral stricture, recurrent UTIs, and recurrent hematuria who was transferred from OSH for hematuria and clot retention. On arrival the patient was hemodynamically stable. Labs were significant for leukocytosis of 11.72. Urology was consulted and recommended hand irrigation for the more. By 07/07 his urine turned yellow, there were no clots in the more, and patient was getting ready to be discharged. However UA came back positive for nitrites, leukocytes, RBCs, and WBCs. WBC count started up trending to 12.11. Urine culture grew MRSA and patient was started on Vancomycin. On 07/09 blood cultures from the grew gram positive cocci in clusters and ID was consulted. On initial presentation the patient reports having hematuria for 12 hours before coming into the hospital. He described it as painless with no burning or suprapubic pain. He endorses using a more that gets changed every three weeks. The patient endoreses increased urinary frequency and mild back pain which could be attributed to chronic back issues. The patient asserts having urinary problems that started five years ago. He said the chemoRT he received was done in the early and developed bowel irritation and ED as a consequence. He denied any fevers, night sweats, nausea, vomiting, abdominal pain, SOB, chest pain, or cough, but did have chills. The patient denied having any lines prior to coming in and asserts the more was the only external source. 07/13/24: No acute overnight events. Patient reports feeling well this monring. He endorses some chills but attributes that to the room. He denies any fevers, night sweats, or UTI symptoms. Objective Physical Examination: BP 121/60 Pulse (!) 47 Temp 36.6 ???C (97.9 ???F) Resp 18 Ht 1.575 m (5' 2 ) Wt 83.5 kg (184 lb 1.4 oz) SpO2 95% BMI 33.67 kg/m??? Temperature Range: Temp: 36.6 ???C (97.9 ???F) Temp Av.8 ???C (98.2 ???F) Min: 36.6 ???C (97.8 ???F) Max: 37.3 ???C (99.1 ???F) General Appearance: Awake, alert, and in no apparent distress Pulmonary/Chest: Clear to auscultation, without wheezes, rales, no rhonchi Cardiovascular: Regular rate and rhythm without murmurs Abdomen (more content not included)... [facility] 07-12-2024 Note Pharmacy Dosing Serv ice - Vancomycin Follow Up Note Drug: Vancomycin Duration: Day 5 of 4 weeks therapy Indication: bacteremia and UTI AUC 400-600 mg*hr/L and trough 15-20 mcg/mL; Increase from 10-20 mcg/ml due to MRSA bacteremia Other Antimicrobial Regimens: none Labs and Renal Function Lab Results Component Value Date WBC 6.21 07/10/2024 WBC 12.11 (H) 07/08/2024 WBC 11.64 (H) 07/07/2024 Lab Results Component Value Date BUN 19 07/11/2024 BUN 20 07/10/2024 BUN 20 07/08/2024 CREATININE 0.65 (L) 07/11/2024 CREATININE 0.73 07/10/2024 CREATININE 0.67 (L) 07/08/2024 I/O: I/O last 3 completed shifts: In: 300 (3.4 mL/kg) [IV Piggyback:300] Out: 1500 (16.9 mL/kg) [Urine:1500 (0.5 mL/kg/hr)] Weight: 88.8 kg Estimated Pharmacokinetic Parameters: Vancomycin Tr Date/Time Value Ref Range Status 07/12/2024 03:53 PM 6.3 5.0 - 20.0 ug/mL Final Weight used to calculate CrCl and Ke: adjusted body weight (due to obesity) Last Dose: 1500 mg Date: 07/12 Time: 1640 Pharmacokinetic Parameters: Vd: 56.9 L Ke: 0.054 hr -1 T1/2: 12.8 hr Microbiology: Results for orders placed or performed during the hospital encounter of 07/06/24 Blood culture Specimen: Blood, Venous Result Value Ref Range Blood Culture No growth at 18-24 hours Blood culture Specimen: Blood, Venous Result Value Ref Range Blood Culture No growth at 2 days Blood culture Specimen: Blood, Venous Result Value Ref Range Blood Culture No growth at 2 days Blood culture, peripheral #2 Specimen: Blood, Venous Result Value Ref Range Blood Culture Methicillin-Resistant Staphylococcus aureus (AA) Gram Stain Result (A) Aerobic Bottle Yields Gram positive cocci in clusters Blood culture, peripheral #1 Specimen: Blood, Venous Result Value Ref Range Blood Culture Methicillin-Resistant Staphylococcus aureus (AA) Gram Stain Result (A) Aerobic Bottle Yields Gram positive cocci in clusters Gram Stain Result (A) Anaerobic Bottle Yields Gram positive cocci in clusters Susceptibility Methicillin-Resistant Staphylococcus aureus - CARIN Clindamycin >2 Resistant ug/ml Daptomycin <=1 Susceptible ug/ml Linezolid <=1 Susceptible ug/ml Oxacillin >2 Resistant ug/ml Trimethoprim + Sulfamethoxazole <=0.5/9.5 Susceptible ug/ml Tetracycline >8 Resistant ug/ml Vancomycin <=0.5 Susceptible ug/ml Assessment / Comments: -Patient is hemodynamically stable and afebrile. Blood cultures collected on 07/08 positive for MRSA 2/2. Repeated blood culture collected on 07/10 remained negative. Per ID team, will plan to treat patient with 4 weeks of antibiotic. - Trough level collected today at 1553 came back subtherapeutic at 6.3 mg/dl. Based on PK calculation, dose of 1000 mg Q12hrs will give AUC of 692.6 and trough of 21.8ug/ml. Thus, regimen will need to be adjusted to 750 mg Q12 hrs to get AUC of 519.4 and trough of 16.2 mcg/ml -Antimicrobial agents have appropriate automatic stop dates? yes -Current risk factors for nephrotoxicity: Advanced age -Comments on renal function / baseline serum creatinine: stable Plan: -Modify regimen to vancomycin 750 mg every 12 hours for a predicted AUC of 519.4 mg*hr/L and trough of 16.2 mcg/mL -Plan to check serum peak and trough levels at steady state -Check BUN/SCr daily -Pharmacy will follow up daily on culture and sensitivity results and renal function -Please do not hesitate to contact us with comments or questions Thank you, Radha Sahni, PharmD, 07/12/24 [facility] 07-12-2024 Note Hospital Medicine Daily Progress Note - 07/12/2024 2:38 PM; Room: [address] [place] [address] Admission: 07/06/2024 11:47 AM; Length of stay: 6 days THE HOSPITALIST TEAM PREFERS TO USE [employer] FOR COMMUNICATION 7AM-7PM. IF I DO NOT RESPOND WITHIN 15 MINUTES, PLEASE PAGE ME/CALL THROUGH THE CONCRETE PLACEMENT EQUIPMENT OPERATOR. FROM 7PM-7AM, PLEASE PAGE [phone](COVR) Code Status: Full Code Barriers to Discharge: Pending antibiotic set up with infusion center Expected Discharge Date: 07/13/2024 Discharge Destination: home Overview Patient is seen for evaluation and management of hematuria. Subjective Patient was examined at bedside resting comfortably. No acute distress. He denies any abdominal pain, fever, chills, nausea, or vomiting. He denies any pain or rash. He continues to make urine. More had clear, yellow urine no visible blood. No new complaints today. Physical Exam Visit Vitals BP 170/87 Pulse 73 Temp 36.6 ???C (97.9 ???F) (Oral) Resp 16 Intake/Output Summary (Last 24 hours) at 07/12/2024 1438 Last data filed at 07/11/2024 2300 Gross per 24 hour Intake 300 ml Output 600 ml Net -300 ml Physical Exam Constitutional: Appearance: Normal appearance. He is normal weight. HENT: Head: Normocephalic and atraumatic. Nose: Nose normal. Cardiovascular: Rate and Rhythm: Normal rate and regular rhythm. Pulmonary: Effort: Pulmonary effort is normal. Breath sounds: Normal breath sounds. Abdominal: Palpations: Abdomen is soft. Musculoskeletal: General: Normal range of motion. Cervical back: Normal range of motion and neck supple. Skin: General: Skin is warm and dry. Neurological: General: No focal deficit present. Mental Status: He is alert and oriented to person, place, and time. Mental status is at baseline. Psychiatric: Mood and Affect: Mood normal. Behavior: Behavior normal. Thought Content: Thought content normal. Judgment: Judgment normal. Estimated body mass index is 35.81 kg/m??? as calculated from the following: Height as of this encounter: 1.575 m (5' 2 ). Weight as of this encounter: 88.8 kg (195 lb 12.3 oz). 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 Advised to follow with outpatient urology. Urinalysis showed nitrites and leukocytes with RBCs and WBCs. WBC up to 12.11 from 11.64 yesterday. Urine culture result grew staph aureus, susceptibility pending. Patient's family stated that he has had MRSA UTI in the past. Blood cultures 2/2 positive for MRSA. Repeat blood cultures negative till date. TTE 07/09/2024 negative for infective endocarditis. 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 Orthopedic surgery was consulted, they recommended no acute surgical intervention and outpatient follow-up. Continue vancomycin, treat with 4 weeks of antibiotics per infectious disease Coronary artery disease s/p CABG X4 in 2006 Continue aspirin. Discussed with urology. Essential hypertension Start patient on carvedilol 6.25 mg twice a day. History of CVA 04/19/2024 Continue aspirin Class I obesity History of colon cancer status post colectomy, chemotherapy and radiation in 1998 VTE Prophylaxis: Heparin subcutaneous Scheduled Meds aspirin, 81 mg, oral, Daily atorvastatin, 80 mg, oral, Daily carvedilol, 6.25 mg, oral, BID heparin (porcine), 5,000 Units, subcutaneous, q12h PAYTON tamsulosin, 0.4 mg, oral, Daily vancomycin, 1.5 g, intravenous, q24h Pertinent Investigations Hematology: Results from last 7 days Lab Units 07/10/24 0538 07/08/24 0920 WBC AUTO 10*3/uL 6.21 12.11* HEMOGLOBIN g/dL 12.2* 12.6* HEMATOCRIT % 35.9* 37.4* MCV fL 90.9 92.3 PLATELETS AUTO 10*3/uL 147* 151 Chemistry: Results from last 7 days Lab Units 07/11/24 0418 07/10/24 0538 07/08/24 0920 SODIUM mmol/L 136 134* 136 POTASSIUM mmol/L 3.7 3.2* 3.6 CHLORIDE mmol/L 107 104 106 CO2 mmol/L 22 25 25 BUN mg/dL 19 20 20 CREATININE mg/dL 0.65* 0.73 0.67* GLUCOSE mg/dL 124* 109* 118* CALCIUM mg/dL 7.8* 7.9* 8.4* No lab exists for component: AFIO2 , APHT , APCOT , APOT , ATCO2 , CK , ALB , IBILI Historical Values: (Includes values prior to this admission) No (more content not included)... [facility] 07-12-2024 Note Infectious Diseases - Inpatient daily Progress Note - Patient name: Kyler Richard Patient Today's Date and Time: 07/12/2024, 1:08 PM Admission Date: 07/06/2024 Assessment/Plan Impression: MRSA bacteremia with urinary source after more placement On 07/08 patient had a fever of 100.9 Increased WBC of 12.11 On 07/08, 2/2 positive blood cultures positive for gram positives cocci in clusters Echo done on 07/09 showed no significant valvular abnormalities Repeat blood cx from 07/10 and 07/11 NGTD Spine MRI no concern for discitis or abscess, evaluated by ortho #MRSA UTI- complicated UTI with more catheter in place Increased WBC of 12.11 UA positive for nitrites, leukocytes, RBCS, and WBCs On 07/07 Positive urine culture for MRSA #BPH #Recurrent hematuria likely to recent urological procedure or chemoRT # left hip prosthetic joint, has no pain or complaints there and on exam no swelling or tenderness Recommendations: Blood cx remain negative Will treat him as a case of complicated MRSA bacteremia with 4 weeks Unfortunately, unable to switch him to daptomycin due to high dose statin that cannot be held due to recent stoke- discussed this primary team Will plan for 4 weeks of IV vancomycin , if for any reason he cannt tolerate it down the line can consider completion the treatment with linezolid if its 2 weeks of less I discussed the case with pharmacy we need vancomycin levels checked on him prior recommending dose for discharge , check planned prior tonight's dose Subjective HPI and Interval history: Kyler Richard is a 83 y.o.-year-old male with a past medical history of CVA with right sided deficits, CAD s/p CABG 11/30, colon cancer s/p chemo/rt in the , and BPH, urethral stricture, recurrent UTIs, and recurrent hematuria who was transferred from OSH for hematuria and clot retention. On arrival the patient was hemodynamically stable. Labs were significant for leukocytosis of 11.72. Urology was consulted and recommended hand irrigation for the more. By 07/07 his urine turned yellow, there were no clots in the more, and patient was getting ready to be discharged. However UA came back positive for nitrites, leukocytes, RBCs, and WBCs. WBC count started up trending to 12.11. Urine culture grew MRSA and patient was started on Vancomycin. On 07/09 blood cultures from the grew gram positive cocci in clusters and ID was consulted. On initial presentation the patient reports having hematuria for 12 hours before coming into the hospital. He described it as painless with no burning or suprapubic pain. He endorses using a more that gets changed every three weeks. The patient endoreses increased urinary frequency and mild back pain which could be attributed to chronic back issues. The patient asserts having urinary problems that started five years ago. He said the chemoRT he received was done in the early and developed bowel irritation and ED as a consequence. He denied any fevers, night sweats, nausea, vomiting, abdominal pain, SOB, chest pain, or cough, but did have chills. The patient denied having any lines prior to coming in and asserts the more was the only external source. 07/12/24: He feels pretty good this morning, afebrile, stable CR from yesterday, ill order one for tomorrow Objective Physical Examination: BP 170/87 Pulse 73 Temp 36.6 ???C (97.9 ???F) (Oral) Resp 16 Ht 1.575 m (5' 2 ) Wt 88.8 kg (195 lb 12.3 oz) SpO2 95% BMI 35.81 kg/m??? Temperature Range: Temp: 36.6 ???C (97.9 ???F) Temp Av.6 ???C (97.8 ???F) Min: 36.5 ???C (97.7 ???F) Max: 36.6 ???C (97.9 ???F) General Appearance: Awake, alert, and in no apparent distress Pulmonary/Chest: Clear to auscultation, without wheezes, rales, no rhonchi Cardiovascular: Regular rate and rhythm without murmurs Abdomen: soft, non-tender, nondistended, more in place Extremities: No cyanosis, edema, Neurologic: Alert and oriented x 3. Laboratory data: I have independently reviewed the following labs: Results from last 7 days Lab Units 07/10/24 0538 07/08/24 0920 07/07/24 0542 WBC AUTO 10*3/uL 6.21 12.11* 11.64* HEMOGLOBIN g/dL 12.2* 12.6* 12.6* HEMATOCRIT % 35.9* 37.4* 37.1* MCV fL 90.9 92.3 92.3 PLATELETS AUTO 10*3/uL 147* 151 156 NEUTROS ABS 10*3/uL 4.71 9.77* -- LYMPHS ABS AUTO 10*3/uL 0.80* 1.24 -- MONOS ABS AUTO 10*3/uL 0.58 0.90 -- EOS ABS AUTO 10*3/uL 0.06 0.07 -- BASOS ABS AUTO 10*3/uL 0.03 0.03 -- Results from last 7 days Lab Units 07/11/24 0418 07/10/24 0538 07/08/24 0920 POTASSIUM mmol/L 3.7 3.2* 3.6 CHLORIDE mmol/L 107 104 106 CO2 mmol/L 22 25 25 BUN mg/dL 19 20 20 CREATININE mg/dL 0.65* 0.73 0.67* GLUCOSE mg/dL 124* 109* 118* CALCIUM mg/dL 7.8* 7.9* 8.4* Results from last 7 days Lab Units 07/11/24 0418 SED RATE mm/hr 94* Results from last 7 days Lab Units 07/07/24 1419 GLUCOSE U MG/DL mg/dL Normal UR (more content not included)... [facility] 07-11-2024 Note Cultures reviewed, s o far blood cx from 07/10 no growth, pending from today , MRI spine no concern for abscess, ECHO had good window no vegetations Continue with IV vancomycin, unfortunately daptomycin is not an option given he is on high dose statins that cannt be held due to recent CVA. Plan will depend on negative cx But anticipate at least 4 weeks of antibiotics from negative cx with IV vancomycin, if side effects occur down the line while on vanco we can complete the treatment with linezolid Semaj Sanchez MD Infectious diseases [facility] 07-11-2024 Note Physical Therapy Physical Therapy Treatment Patient Name: Kyler Richard : 1940 Today's Date: 07/11/2024 07/11/24 Time Calculation Start Time 1331 Stop Time 1421 Time Calculation (min) 50 min PT Therapeutic Procedures Time Entry Therapeutic Activity Time Entry 35 Therapeutic Exercise Time Entry 15 Patient Active Problem List Diagnosis Hematuria Cerebrovascular accident (CVA) due to occlusion of precerebral artery (CMS/HCC) Penile hypospadias Coronary artery disease involving [place] coronary artery of [place] heart without angina pectoris 07/11/24 1337 PT Last Visit PT Received On 07/11/24 Response to Previous Treatment Patient with no complaints from previous session. General Family/Caregiver Present No Subjective I know I need to get moving. Pt sleeping in bed, awakens to voice and is agreeable to participate with encouragement. Nrsg okays session. Activity Tolerance Endurance Stage II Activity Tolerance Comments Pt tolerated bed mob, transfers, ambulation and stair negotiation with mild fatigue noted. Pt moves slowly and takes frequent standing rest breaks while conversing but reported feeling good throughout. Precautions Medical Precautions fall risk, telemetry, more, bed alarm Pain Assessment Pain Assessment 0-10 Pain Score 4 Pain Type Chronic pain Pain Location Neck Cognition Overall Cognitive Status WFL Arousal/Alertness Appropriate responses to stimuli Orientation Level Oriented X4 Following Commands Follows one step commands with increased time;Follows one step commands with repetition Safety Judgment Decreased awareness of need for safety Awareness of Errors Assistance required to identify errors made Deficits Fully aware of deficits Attention Span Attends with cues to redirect;Difficulty dividing attention Memory Appears intact Problem Solving Assistance required to identify errors made;Assistance required to generate solutions;Assistance required to implement solutions Communication Intact Cognition Comments Pt demos difficulty multi tasking during ambulation and impairments in motor planning turns with RW. Tangential speech, cues to redirect attn to task. Emotional labile at times. General Assessment Hearing [place] - hearing aides in Therapeutic Exercise Therapeutic Exercise Activity 1 bilat LE heel slides, SLR x10 reps to strengthen and prep for mobility. Performed supine with bed flat Static Sitting Balance Static Sitting-Balance Support Feet supported Static Sitting-Level of Assistance Independent Static Sitting-Comment/Number of Minutes no seated balance concerns Dynamic Sitting Balance Dynamic Sitting-Balance Support Feet supported Dynamic Sitting-Balance Forward lean;Lateral lean;Reaching across midline Dynamic Sitting Balance-Level of Assistance Close supervision Dynamic Sitting-Comments during toileting Static Standing Balance Static Standing-Balance Support Right upper extremity supported;Left upper extremity supported;With device (RW) Static Standing-Level of Assistance Close supervision Static Standing-Comment/Number of Minutes Varied UE support on RW, pt tends to talk with his hands and lets go of RW with postural sways noted Dynamic Standing Balance Dynamic Standing-Balance Support Unilateral upper extremity supported;With device Dynamic Standing-Balance Forward lean;Lateral lean;Reaching across midline;Reaching for weighted objects Dynamic Standing Balance-Level of Assistance Contact guard Dynamic Standing-Comments To open BR door, no LOB Ambulation Ambulation Yes Ambulation 1 Surface 1 Level tile Device 1 Rolling walker Assistance 1 Contact guard;Moderate verbal cues;Moderate tactile cues Quality of Gait 1 very slow yordy, short step length/height bilaterally, leads with RLE, stops frequently while conversing and needs to be redirected, cues for RW proximity and posture with fair carryover Comments/Distance (ft) 1 ~8' Ambulation 2 Surface 2 Level tile Device 2 Rolling walker Assistance 2 Contact guard;Moderate verbal cues;Moderate tactile cues Quality of Gait 2 same as above Comments/Distance (ft) 2 ~62' followed by seated rest break outside stairwell, completed stairs and amb ~62' back to room with slightly quicker yordy Stairs Stairs Yes Stairs Rails 1 Right Assistance 1 Contact guard;Minimum assistance;Moderate verbal cues (RN present for safety) Quality of Stairs 1 Non-reciprocal step pattern ascending/descending completed with both hands on same rail. Mostly CGA with one instance of Min A to correct posterior lean due to bilat heels not fully on step. Comment/Number of Steps 1 completed 4 6 steps with increased time/effort Bed Mobility Bed Mobility Yes Bed Mobility 1 Bed Mobility From 1 Supine Bed Mobility Type 1 To Bed Mobility to 1 Short sit Level of Assistance 1 Maximum assistance Bed Mobility Comments 1 Performed w (more content not included)... [facility] 07-11-2024 Note Hospital Medicine Daily Progress Note - 07/11/2024 12:48 PM; Room: [address] [place] [address] Admission: 07/06/2024 11:47 AM; Length of stay: 5 days THE HOSPITALIST TEAM PREFERS TO USE [employer] CHAT FOR COMMUNICATION 7AM-7PM. IF I DO NOT RESPOND WITHIN 15 MINUTES, PLEASE PAGE ME/CALL THROUGH THE CONCRETE PLACEMENT EQUIPMENT OPERATOR. FROM 7PM-7AM, PLEASE PAGE [phone](COVR) Code Status: Full Code Barriers to Discharge: Pending blood cultures Expected Discharge Date: 1 to 2 days Discharge Destination: home Overview Patient is seen for evaluation and management of hematuria. Subjective Patient was examined at bedside resting comfortably. No acute distress. He denies any abdominal pain, fever, chills, nausea, or vomiting. He denies any pain or rash. He continues to make urine. More had clear, yellow urine no visible blood. No new complaints today. Physical Exam Visit Vitals BP 148/70 Pulse 58 Temp 36.7 ???C (98.1 ???F) Resp 19 Intake/Output Summary (Last 24 hours) at 07/11/2024 1248 Last data filed at 07/11/2024 0600 Gross per 24 hour Intake 260 ml Output 900 ml Net -640 ml Physical Exam Constitutional: Appearance: Normal appearance. He is normal weight. HENT: Head: Normocephalic and atraumatic. Nose: Nose normal. Cardiovascular: Rate and Rhythm: Normal rate and regular rhythm. Pulmonary: Effort: Pulmonary effort is normal. Breath sounds: Normal breath sounds. Abdominal: Palpations: Abdomen is soft. Musculoskeletal: General: Normal range of motion. Cervical back: Normal range of motion and neck supple. Skin: General: Skin is warm and dry. Neurological: General: No focal deficit present. Mental Status: He is alert and oriented to person, place, and time. Mental status is at baseline. Psychiatric: Mood and Affect: Mood normal. Behavior: Behavior normal. Thought Content: Thought content normal. Judgment: Judgment normal. Estimated body mass index is 35.81 kg/m??? as calculated from the following: Height as of this encounter: 1.575 m (5' 2 ). Weight as of this encounter: 88.8 kg (195 lb 12.3 oz). 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 Advised to follow with outpatient urology. Urinalysis showed nitrites and leukocytes with RBCs and WBCs. WBC up to 12.11 from 11.64 yesterday. Urine culture result grew staph aureus, susceptibility pending. Patient's family stated that he has had MRSA UTI in the past. Blood cultures 2/2 positive for MRSA. Repeat blood cultures pending TTE 07/09/2024 negative for infective endocarditis. 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 Orthopedic surgery was consulted, they recommended no acute surgical intervention and outpatient follow-up. Continue vancomycin. Infectious disease following. Coronary artery disease s/p CABG X4 in 2006 Continue aspirin. Discussed with urology. History of CVA 04/19/2024 Continue aspirin Class I obesity History of colon cancer status post colectomy, chemotherapy and radiation in 1998 VTE Prophylaxis: Heparin subcutaneous Scheduled Meds aspirin, 81 mg, oral, Daily atorvastatin, 80 mg, oral, Daily heparin (porcine), 5,000 Units, subcutaneous, q12h PAYTON tamsulosin, 0.4 mg, oral, Daily vancomycin, 1.5 g, intravenous, q24h Pertinent Investigations Hematology: Results from last 7 days Lab Units 07/10/24 0538 07/08/24 0920 WBC AUTO 10*3/uL 6.21 12.11* HEMOGLOBIN g/dL 12.2* 12.6* HEMATOCRIT % 35.9* 37.4* MCV fL 90.9 92.3 PLATELETS AUTO 10*3/uL 147* 151 Chemistry: Results from last 7 days Lab Units 07/11/24 0418 07/10/24 0538 07/08/24 0920 SODIUM mmol/L 136 134* 136 POTASSIUM mmol/L 3.7 3.2* 3.6 CHLORIDE mmol/L 107 104 106 CO2 mmol/L 22 25 25 BUN mg/dL 19 20 20 CREATININE mg/dL 0.65* 0.73 0.67* GLUCOSE mg/dL 124* 109* 118* CALCIUM mg/dL 7.8* 7.9* 8.4* No lab exists for component: AFIO2 , APHT , APCOT , APOT , ATCO2 , CK , ALB , IBILI Historical Values: (Includes values prior to this admission) No results found for: PREALBUMIN , TSH , T3FREE , FREET4 , CORTISOL , FEV1 , HHY8ZIP , DLCO , RVSP , HDL , LDL No results found for: CZGPULNH25 , IRON , TIBC (more content not included)... [facility] 07-10-2024 Note Pt off unit for MRI. Check no charge [facility] 07-10-2024 Note Hospital Medicine Daily Progress Note - 07/10/2024 1:31 PM; Room: [address] [place] [address] Admission: 07/06/2024 11:47 AM; Length of stay: 4 days THE HOSPITALIST TEAM PREFERS TO USE [employer] CHAT FOR COMMUNICATION 7AM-7PM. IF I DO NOT RESPOND WITHIN 15 MINUTES, PLEASE PAGE ME/CALL THROUGH THE CONCRETE PLACEMENT EQUIPMENT OPERATOR. FROM 7PM-7AM, PLEASE PAGE [phone](COVR) Code Status: Full Code Barriers to Discharge: Pending blood cultures, MRI spine Expected Discharge Date: 2 to 3 days Discharge Destination: home Overview Patient is seen for evaluation and management of hematuria. Subjective Patient was examined at bedside resting comfortably. No acute distress. He denies any abdominal pain, fever, chills, nausea, or vomiting. He denies any pain or rash. He continues to make urine. More had clear, yellow urine no visible blood. No new complaints today. Physical Exam Visit Vitals BP 153/74 Pulse 72 Temp 36.7 ???C (98.1 ???F) (Oral) Resp 20 Intake/Output Summary (Last 24 hours) at 07/10/2024 1331 Last data filed at 07/10/2024 0931 Gross per 24 hour Intake 540 ml Output 800 ml Net -260 ml Physical Exam Constitutional: Appearance: Normal appearance. He is normal weight. HENT: Head: Normocephalic and atraumatic. Nose: Nose normal. Cardiovascular: Rate and Rhythm: Normal rate and regular rhythm. Pulmonary: Effort: Pulmonary effort is normal. Breath sounds: Normal breath sounds. Abdominal: Palpations: Abdomen is soft. Musculoskeletal: General: Normal range of motion. Cervical back: Normal range of motion and neck supple. Skin: General: Skin is warm and dry. Neurological: General: No focal deficit present. Mental Status: He is alert and oriented to person, place, and time. Mental status is at baseline. Psychiatric: Mood and Affect: Mood normal. Behavior: Behavior normal. Thought Content: Thought content normal. Judgment: Judgment normal. Estimated body mass index is 35.81 kg/m??? as calculated from the following: Height as of this encounter: 1.575 m (5' 2 ). Weight as of this encounter: 88.8 kg (195 lb 12.3 oz). 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 Advised to follow with outpatient urology. Urinalysis showed nitrites and leukocytes with RBCs and WBCs. WBC up to 12.11 from 11.64 yesterday. Urine culture result grew staph aureus, susceptibility pending. Patient's family stated that he has had MRSA UTI in the past. Continue vancomycin. Blood cultures 2/2 positive for gram-positive cocci in clusters. Repeat blood cultures pending TTE 07/09/2024 negative for infective endocarditis. MRI spine pending as patient complained of neck pain. Infectious disease consulted. Coronary artery disease s/p CABG X4 in 2006 Continue aspirin. Discussed with urology. History of CVA 04/19/2024 Continue aspirin Class I obesity History of colon cancer status post colectomy, chemotherapy and radiation in 1998 VTE Prophylaxis: Heparin subcutaneous Scheduled Meds aspirin, 81 mg, oral, Daily atorvastatin, 80 mg, oral, Daily [Held by provider] heparin (porcine), 5,000 Units, subcutaneous, q12h PAYTON tamsulosin, 0.4 mg, oral, Daily vancomycin, 1.5 g, intravenous, q24h Pertinent Investigations Hematology: Results from last 7 days Lab Units 07/10/24 0538 07/08/24 0920 WBC AUTO 10*3/uL 6.21 12.11* HEMOGLOBIN g/dL 12.2* 12.6* HEMATOCRIT % 35.9* 37.4* MCV fL 90.9 92.3 PLATELETS AUTO 10*3/uL 147* 151 Chemistry: Results from last 7 days Lab Units 07/10/24 0538 07/08/24 0920 07/07/24 0542 SODIUM mmol/L 134* 136 139 POTASSIUM mmol/L 3.2* 3.6 3.6 CHLORIDE mmol/L 104 106 108* CO2 mmol/L 25 25 26 BUN mg/dL 20 20 23 CREATININE mg/dL 0.73 0.67* 0.77 GLUCOSE mg/dL 109* 118* 106* CALCIUM mg/dL 7.9* 8.4* 8.3* No lab exists for component: AFIO2 , APHT , APCOT , APOT , ATCO2 , CK , ALB , IBILI Historical Values: (Includes values prior to this admission) No results found for: PREALBUMIN , TSH , T3FREE , FREET4 , CORTISOL , FEV1 , QKD8YIB , DLCO , RVSP , HDL , LDL No results found for: OAVRBVTL07 , IRON , TIBC , C3 , C4 , CORETTA , CANCA , ASO , PSA , CEA , CA125 , CA199 , AFP , CA153 Imaging Complete Echo (TTE) w/wo Imaging Agent, Strain, 3D, Bubble Study 1 1 [facility] [place] Heart Station [id number] (more content not included)... [facility] 07-10-2024 Note Attestation signed by Semaj Sanchez MD at 07/10/2024 3:26 PM (Updated) By using the attestations below, the signing clinician agrees that I have read and verify that the documentation has been personally reviewed by me and ensure that the documentation accurately reflects the encounter. GC: I personally saw this patient on the day of the encounter, performed the parekh portion(s) of the service and participated in the management and confirm the resident's documentation. Please note there may be an additional personal documentation from me. Additional Comments: MRSA bacteremia, could be a urinary source, patient with worsening lower back and neck pain can barely move his neck side ways Plan for MRI spine today TTE no vegetations If blood cx are persistently positive , we might need FRANKLIN Continue vancomycin, monitor Cr and levels Repeat blood cx tomorrow Semaj Sanchez MD Infectious diseases Infectious Diseases - Inpatient daily Progress Note - Patient name: Kyler Richard Patient Today's Date and Time: 07/10/2024, 8:10 AM Admission Date: 07/06/2024 Assessment/Plan Impression: #Bacteremia, gram positive cocci in clusters On 07/08 patient had a fever of 100.9 Increased WBC of 12.11 On 07/08, 2/2 positive blood cultures positive for gram positives cocci in clusters Echo done on 07/09 showed no significant valvular abnormalities #MRSA UTI Increased WBC of 12.11 UA positive for nitrites, leukocytes, RBCS, and WBCs On 07/07 Positive urine culture for MRSA #BPH #Recurrent hematuria likely to recent urological procedure or chemoRT Recommendations: Continue Vancomycin until blood cultures and susceptibilities finalize MRSA bacteremia could be due more irrigation or vice a versa. MRSA UTI is very rare so we will continue to look for a source which could possibly be due his recent back surgery Monitor creatine due to Vanco's adverse effects Follow up MRI spine for possible areas of infection due to recent back surgery and new neck pain Low threshold for FRANKLIN if MRI spine has pockets of infection Subjective HPI and Interval history: Kyler Richard is a 83 y.o.-year-old male with a past medical history of CVA with right sided deficits, CAD s/p CABG 11/30, colon cancer s/p chemo/rt in the , and BPH, urethral stricture, recurrent UTIs, and recurrent hematuria who was transferred from OSH for hematuria and clot retention. On arrival the patient was hemodynamically stable. Labs were significant for leukocytosis of 11.72. Urology was consulted and recommended hand irrigation for the more. By 07/07 his urine turned yellow, there were no clots in the more, and patient was getting ready to be discharged. However UA came back positive for nitrites, leukocytes, RBCs, and WBCs. WBC count started up trending to 12.11. Urine culture grew MRSA and patient was started on Vancomycin. On 07/09 blood cultures from the grew gram positive cocci in clusters and ID was consulted. On initial presentation the patient reports having hematuria for 12 hours before coming into the hospital. He described it as painless with no burning or suprapubic pain. He endorses using a more that gets changed every three weeks. The patient endoreses increased urinary frequency and mild back pain which could be attributed to chronic back issues. The patient asserts having urinary problems that started five years ago. He said the chemoRT he received was done in the early and developed bowel irritation and ED as a consequence. He denied any fevers, night sweats, nausea, vomiting, abdominal pain, SOB, chest pain, or cough, but did have chills. The patient denied having any lines prior to coming in and asserts the more was the only external source. 07/10/24: No acute overnight events. This morning the patient reports feeling better compared to yesterday. He endorses severe back pain. He asserts that after his spinal ablation he has had severe back pain. He denies any hip pain where his surgery was done. The patient denies any fevers, chills, night sweats, SOB, cough, chest pain, abdominal pain, nausea, or vomiting. Objective Physical Examination: BP 152/86 Pulse 80 Temp 36.7 ???C (98.1 ???F) (Oral) Resp 12 Ht 1.575 m (5' 2 ) Wt 88.8 kg (195 lb 12.3 oz) SpO2 92% BMI 35.81 kg/m??? Temperature Range: Temp: 36.7 ???C (98.1 ???F) Temp Av.3 ???C (99.2 ???F) Min: 36.7 ???C (98.1 ???F) Max: 37.7 ???C (99.9 ???F) General Appearance: Awake, alert, and in no apparent distress Pulmonary/Chest: Clear to auscultation, without wheezes, rales, no rhonchi Cardiovascular: Regular rate and rhythm without murmurs Abdomen: soft, non-tender, nondistended, no palpable masses no organomegaly; normal bowel sounds, non- (more content not included)... 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 No stenosis and no imaging evidence for discitis or epidural abscess or osteomyelitis within the thoracic levels. Electronically signed: Jarvis Barth. 8 [facility] 07-09-2024 Note Hospital Medicine Daily Progress Note - 07/09/2024 1:22 PM; Room: [address] [place] [address] Admission: 07/06/2024 11:47 AM; Length of stay: 1 days THE HOSPITALIST TEAM PREFERS TO USE [employer] CHAT FOR COMMUNICATION 7AM-7PM. IF I DO NOT RESPOND WITHIN 15 MINUTES, PLEASE PAGE ME/CALL THROUGH THE CONCRETE PLACEMENT EQUIPMENT OPERATOR. FROM 7PM-7AM, PLEASE PAGE [phone](COVR) Code Status: Full Code Barriers to Discharge: MRSA bacteremia, MRSA UTI, ID consult Expected Discharge Date: 1-2 days Discharge Destination: home vs SNF Overview Patient is seen for evaluation and management of hematuria. Subjective Patient was examined at bedside resting comfortably. No acute distress. He denies any abdominal pain, fever, chills, nausea, or vomiting. He denies any pain or rash. He continues to make urine. More had clear, yellow urine no visible blood. No new complaints today. Physical Exam Visit Vitals BP 144/59 Pulse 89 Temp 36.9 ???C (98.4 ???F) (Oral) Resp 22 Intake/Output Summary (Last 24 hours) at 07/09/2024 1322 Last data filed at 07/09/2024 0512 Gross per 24 hour Intake 350 ml Output 850 ml Net -500 ml Physical Exam Constitutional: Appearance: Normal appearance. He is normal weight. HENT: Head: Normocephalic and atraumatic. Nose: Nose normal. Cardiovascular: Rate and Rhythm: Normal rate and regular rhythm. Pulmonary: Effort: Pulmonary effort is normal. Breath sounds: Normal breath sounds. Abdominal: Palpations: Abdomen is soft. Musculoskeletal: General: Normal range of motion. Cervical back: Normal range of motion and neck supple. Skin: General: Skin is warm and dry. Neurological: General: No focal deficit present. Mental Status: He is alert and oriented to person, place, and time. Mental status is at baseline. Psychiatric: Mood and Affect: Mood normal. Behavior: Behavior normal. Thought Content: Thought content normal. Judgment: Judgment normal. Estimated body mass index is 35.81 kg/m??? as calculated from the following: Height as of this encounter: 1.575 m (5' 2 ). Weight as of this encounter: 88.8 kg (195 lb 12.3 oz). 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 Advised to follow with outpatient urology. Urinalysis showed nitrites and leukocytes with RBCs and WBCs. WBC up to 12.11 from 11.64 yesterday. Urine culture prelim result grew staph aureus, susceptibility pending. Patient's family stated that he has had MRSA UTI in the past. Continue vancomycin. Blood cultures 2/2 positive for gram-positive cocci in clusters. Echocardiogram ordered to screen for infective endocarditis. Infectious disease consulted. Coronary artery disease s/p CABG X4 in 2006 Continue aspirin. Discussed with urology. History of CVA 04/19/2024 Continue aspirin Class I obesity History of colon cancer status post colectomy, chemotherapy and radiation in 1998 As the teaching physician, I have personally performed or re-performed the history of present illness, physical exam and medical decision-making activities of the encounter and verified the medical student's documentation. I made pertinent changes as necessary to ensure accurate documentation. There may be additional comments below. VTE Prophylaxis: Contraindicated due to hematuria Scheduled Meds aspirin, 81 mg, oral, Daily atorvastatin, 80 mg, oral, Daily [Held by provider] heparin (porcine), 5,000 Units, subcutaneous, q12h PAYTON tamsulosin, 0.4 mg, oral, Daily vancomycin, 1.5 g, intravenous, q24h Pertinent Investigations Hematology: Results from last 7 days Lab Units 07/08/24 0920 07/07/24 0542 WBC AUTO 10*3/uL 12.11* 11.64* HEMOGLOBIN g/dL 12.6* 12.6* HEMATOCRIT % 37.4* 37.1* MCV fL 92.3 92.3 PLATELETS AUTO 10*3/uL 151 156 Chemistry: Results from last 7 days Lab Units 07/08/24 0920 07/07/24 0542 07/06/24 1255 SODIUM mmol/L 136 139 138 POTASSIUM mmol/L 3.6 3.6 3.8 CHLORIDE mmol/L 106 108* 109* CO2 mmol/L 25 26 21 BUN mg/dL 20 23 22 CREATININE mg/dL 0.67* 0.77 0.77 GLUCOSE mg/dL 118* 106* 127* CALCIUM mg/dL 8.4* 8.3* 8.4* No lab exists for component: AFIO2 , APHT , APCOT , APOT , ATCO2 , CK , ALB , IBILI Historical Values: (Includes values prior to this admission) No results found for: PREALBUMIN , TSH , T3FREE , FREET4 , CORTISOL , FEV1 , AYJ4XNP , DLCO , R (more content not included)... [facility] 07-09-2024 Note Occupational Therapy Occupational Therapy Treatment Patient Name: Kyler Richard : 1940 Today's Date: 07/09/2024 07/09/24 1306 Time Calculation Start Time 1306 Stop Time 1407 Time Calculation (min) 61 min Problem List Patient Active Problem List Diagnosis Hematuria Cerebrovascular accident (CVA) due to occlusion of precerebral artery (CMS/HCC) Penile hypospadias Coronary artery disease involving [place] coronary artery of [place] heart without angina pectoris Treatment: 07/09/24 1306 OT Last Visit OT Received On 07/09/24 General Subjective Pt pleasant and agreable to self care session at this time. Family/Caregiver Present No Precautions Medical Precautions fall risk, telemetry, more, bed alarm Pain Assessment Pain Assessment No/denies pain Cognition Overall Cognitive Status WFL Orientation Level Oriented X4 General Assessment Hearing [place] Skin Integrity All visualized areas intact UE Bathing UE Bathing Level of Assistance Setup UE Bathing Where Assessed Edge of bed LE Bathing LE Bathing Level of Assistance Maximum assistance LE Bathing Where Assessed Other (Comment);Edge of bed LE Bathing Comments Max A for vanessa-anal hygiene in standing at EOB UE Dressing UE Dressing Level of Assistance Setup UE Dressing Where Assessed Edge of bed UE Dressing Comments to doff/don gown LE Dressing LE Dressing Yes Adult Briefs Level of Assistance Maximum assistance LE Dressing Where Assessed Edge of bed LE Dressing Comments to doff/don adult brief Static Sitting Balance Static Sitting-Balance Support No upper extremity supported;Feet supported Static Sitting-Level of Assistance Close supervision Dynamic Sitting Balance Dynamic Sitting-Balance Support No upper extremity supported;Feet supported Dynamic Sitting-Balance Forward lean;Reaching for objects;Reaching across midline;Trunk control activities Dynamic Sitting Balance-Level of Assistance Close supervision Static Standing Balance Static Standing-Balance Support Right upper extremity supported;Left upper extremity supported Static Standing-Level of Assistance Contact guard Static Standing-Comment/Number of Minutes CGA 2/2 body positioning inside RW, decreased safety awareness and poor managment of RW/transfer technique Dynamic Standing Balance Dynamic Standing-Balance Support Right upper extremity supported;Left upper extremity supported;With device Dynamic Standing-Balance Forward lean;Reaching for objects;Reaching across midline Dynamic Standing Balance-Level of Assistance Minimum assistance Dynamic Standing-Comments Min A 2/2 body positioning inside RW, decreased safety awareness and poor managment of RW/transfer technique Bed Mobility Bed Mobility Yes Bed Mobility 1 Bed Mobility From 1 Supine Bed Mobility Type 1 To Bed Mobility to 1 Short sit Level of Assistance 1 Maximum assistance Bed Mobility Comments 1 Max A for BLE managment and trunk progression utilizing TAPS 2/2 prior back sx Bed Mobility 2 Bed Mobility From 2 Short sit Bed Mobility Type 2 To Bed Mobility to 2 Supine Level of Assistance 2 Minimum assistance Bed Mobility Comments 2 Min A for BLE managment, pt demos good carryover of log roll technique Transfers Transfer Yes Transfer 1 Transfer From 1 Sit;Bed Transfer Type 1 To and from Transfer to 1 Stand;Toilet Technique 1 Sit to stand;Stand to sit Transfer Device 1 rolling walker Transfer Level of Assistance 1 Contact guard;Minimum assistance Trials/Comments 1 fluctuates between two assist levels consistently requiring assistance with RW managment, verbal cues for safety awareness, transfer techniques Activity Tolerance Ambulation comments Pt requires increased time to complete functional mobiltiy in room to<>from bathroom Activity Tolerance Comments Pt tolerates session w/ increased time Other Activity Other Activity 1 Pt left in bed reporting fatigue after session, call light and needs accessible. OT Assessment OT Impairments Decreased ADL status;Decreased endurance;Decreased functional mobility;Decreased IADLs;Decreased trunk control for functional activities OT Assessment/MONICO Summary Pt would benefit from continued skilled therapy to promote increased safety and ease with self care tasks. OT Education/Comments Safety awareness, bed mobility/log roll, transfer techniques, positioning/repositioning Plan Level of assist 1 assist Treatment Interventions ADL retraining;Functional transfer training;Endurance training;Patient/family training;Neuromuscular reeducation;Compensatory technique education OT Plan Skilled OT OT Frequency 5 times per week until discharge & PRN OT Discharge Recommendations Home OT (w/ assist) OT - Discharge Recommendations Placed Yes Outcome Assessments 07/09/24 1500 AM-PAC 6 Clicks Putting on and taking off regular lower body clothing? 2 Bathing(Including washing,rin (more content not included)... [facility] 07-09-2024 Note Occupational Therapy Name: Kyler Richard Date of : 1940 Today's Date: 07/09/24 Pt is unable to be seen for therapy at this time secondary to patient off the floor at [facility] at this time . Will check back and complete therapy session as appropriate. Check No Charge Time attempted: 1050A [facility] 07-09-2024 Note Physical Therapy Name: Kyler Richard Date of : 1940 Today's Date: 07/09/24 Pt is unable to be seen for therapy at this time secondary to pt off unit. Will check back and complete therapy session as appropriate. Check No Charge Time attempted: 10:05 [facility] 07-08-2024 Note 07/08/24 1745 Admission Assessment Questions Verify insurance with patient Yes ([employer] Medicare Advantage) Do you understand medical disease or what brought you into the hospital? Yes Who is your current PCP? Bayron Velazquez MD Can I schedule a follow up appointment for you at the time of discharge? Yes Do you understand why you are taking your current medications? Yes Are you taking your medications as prescribed? Yes Did patient provide teach back? No Pharmacy Bedside Delivery Status Not Interested (send any new Scripts to [facility]) Does the patient have a supportive employment case manager assigned to them through their insurance? No Living Arrangement (Current/Prior to Hospitalization) Private residence;Home self care (lives with his Azul in 2 story house, Bedroom & Full Bathroom are on Main Level; Has the support of 3 adult kids, friends & pentec[employer] members) Does the patient have history of HHC or SNF? Yes (currently active/finishing up with [facility] ; previously went to [facility] SNF after his stroke in March but stated will never go back there again ) Assistive Device Cane;Grab bars;Raised toilet seat;Walker;Wheelchair;Bedside Commode (has Shower Chair) Patient's goal for discharge wants to think about options : Home with HH vs SNF Was patient reminded that goal for discharge is 11am? Yes Does the patient have transportation at discharge? Yes (likely Family) Type of Residence Home care staff;longterm facility (Home with [facility], agreeable to resume services vs SNF) Is PT/OT appropriate? Yes Is PT/OT ordered? Yes Is SW consult appropriate? Yes Is SW consult ordered? No Do you understand the benefits of MyChart? No Were you able to send link and activate MyChart? No (declined MyChart set-up) Screen completed with patient, Azul & daughter at bedside. [facility] 07-08-2024 Note Pharmacy Dosing Serv ice - Vancomycin Initial Consult Note Pharmacy has been consulted for the dosing and evaluation of Drug: Vancomycin Indication: UTI AUC 400-600 mg*hr/L and trough 10-20 mcg/mL Other Antimicrobial Regimens: None Labs and Renal Function Total body weight: 87.5 kg (192 lb 14.4 oz) [place] body weight: 54.6 kg (120 lb 5.9 oz) Adjusted ideal body weight: 67.8 kg (149 lb 6.1 oz) Body mass index is 35.28 kg/m???. Lab Results Component Value Date WBC 12.11 (H) 07/08/2024 WBC 11.64 (H) 07/07/2024 WBC 11.72 (H) 07/06/2024 Lab Results Component Value Date BUN 20 07/08/2024 BUN 23 07/07/2024 BUN 22 07/06/2024 CREATININE 0.67 (L) 07/08/2024 CREATININE 0.77 07/07/2024 CREATININE 0.77 07/06/2024 CrCl or renal function: Estimated Creatinine Clearance: 82.9 mL/min (A) (by C-G formula based on SCr of 0.67 mg/dL (L)). -Capped at 60mL/min due to age I/O: I/O last 3 completed shifts: In: 240 (2.7 mL/kg) [P.O.:240] Out: 1850 (21.1 mL/kg) [Urine:1850 (0.6 mL/kg/hr)] Weight: 87.5 kg @IOTHISSHIFT@ Estimated Pharmacokinetic Parameters: Weight used to calculate CrCl and Ke: adjusted body weight (due to obesity) Pharmacokinetic Parameters: Vd: 56.9 L Ke: 0.054 hr -1 T1/2: 12.8 hr Microbiology: -No results found for any visits on 07/06/24. -Blood cultures ordered & pending; urine culture from 07/07 growing staph aureus Urine Culture Date/Time Value Ref Range Status 07/07/2024 02:19 PM >100,000 CFU/Ml Staphylococcus aureus (A) Preliminary Comment: Susceptibility to Follow -MRSA Nares ordered? N/A Assessment / Comments: - Patient started on vancomycin due to urine culture positive for staph aureus. Patient is hemodynamically stable, did spike a low grade fever this morning (37.2C) & has mild leukocytosis -Current risk factors for nephrotoxicity: Advanced age -Comments on renal function / baseline serum creatinine: From this admission, serum creatinine trends between 0.6-0.7mg/dL; will continue to monitor -Recent vancomycin history: No Plan: -Start vancomycin 1750 mg once, followed by vancomycin 1500 mg every 24 hours for a predicted AUC of 486.6 mg*hr/L and trough of 10.7 mcg/mL -Plan to check serum peak and trough levels at steady state -Check BUN/SCr daily -Pharmacy will follow up daily on culture and sensitivity results and renal function -Please do not hesitate to contact us with comments or questions Thank you, Elvira Brandon, PharmD, 07/08/24 [facility] 07-08-2024 Note Physical Therapy Physical Therapy Treatment Patient Name: Kyler Richard : 1940 Today's Date: 07/08/2024 Time In: 1016 Time Out: 1048 Patient Active Problem List Diagnosis Hematuria Cerebrovascular accident (CVA) due to occlusion of precerebral artery (CMS/HCC) Penile hypospadias Coronary artery disease involving [place] coronary artery of [place] heart without angina pectoris Objective General Visit Information: PT Last Visit PT Received On: 07/08/24 Response to Previous Treatment: Patient with no complaints from previous session. General Family/Caregiver Present: No Subjective: Getting out of bed and walking feels good. Session okay per RN. Pt supine upon arrival, sleeping but easy to wake. Agreeable to PT. Performed bed mobility, transfers, and ambulation this date. Returned to recliner chair with call light/tray nearby. RN aware Vision - Basic Vision - Basic Assessment Current Vision: Wears glasses only for reading Activity Tolerance Activity Tolerance Endurance: Stage III Stage III (METs 2.0-3.0) - Sitting to Standin-20 mins Number of Rest Breaks: (Multiple) Activity Tolerance Comments: Pt requires multiple standing rest breaks this date during ambulation. HR max 125 bpm. Mild fatigue/SOB to note Precautions Precautions Medical Precautions: fall risk, telemetry, more, bed alarm Pain Pain Assessment Pain Assessment: No/denies pain Pain Score: 0 - No pain Cognition Cognition Arousal/Alertness: Appropriate responses to stimuli Following Commands: Follows one step commands with increased time, Follows one step commands with repetition Safety Judgment: Decreased awareness of need for safety Awareness of Errors: Assistance required to identify errors made, Assistance required to correct errors made Deficits: Decreased awareness of deficits Attention Span: Attends with cues to redirect, Difficulty dividing attention Memory: Appears intact Problem Solving: Assistance required to identify errors made, Assistance required to generate solutions, Assistance required to implement solutions Communication: Intact Cognition Comments: Pt demos difficulty multi tasking during ambulation and impairments in motor planning turns with RW General Assessment General Assessment Hearing: [place] Skin Integrity: All visualized areas intact Static Sitting Balance Static Sitting Balance Static Sitting-Balance Support: Feet supported Static Sitting-Level of Assistance: Distant supervision Dynamic Sitting Balance Dynamic Sitting Balance Dynamic Sitting-Balance Support: Feet supported Dynamic Sitting-Balance: Forward lean, Reaching for objects Dynamic Sitting Balance-Level of Assistance: Close supervision Static Standing Balance Static Standing Balance Static Standing-Balance Support: Right upper extremity supported, Left upper extremity supported, With device (RW) Static Standing-Level of Assistance: Close supervision Dynamic Standing Balance Dynamic Standing Balance Dynamic Standing-Balance Support: Right upper extremity supported, Left upper extremity supported, With device (RW) Dynamic Standing-Balance: Forward lean Dynamic Standing Balance-Level of Assistance: Contact guard Treatment: Therapeutic Activity Therapeutic Activity Time Entry: 32 Therapeutic Activity 1: Bed mobility: sup to sit Therapeutic Activity 2: Transfers: STS bed, chair Therapeutic Activity 3: Amb: into hallway with RW Therapeutic Activity 4: Stairs: Plan for session was to attempt stairs however, pt unable to safely ambulate distance to access stairs d/t fatigue Ambulation Ambulation: Yes Ambulation 1 Surface 1: Level tile Device 1: Rolling walker Assistance 1: Contact guard, Moderate verbal cues, Moderate tactile cues Quality of Gait 1: Pt demos increased forward flexion over RW. Demos step-to pattern with RLE leading 2/2 R knee pain. Decreased yodry, step length/height. Pt demos impairments in ability to multi-task with talking while ambulating. Frequently stops to converse requiring multiple cues to continue. Also, demos increased distance of RW from self despite multiple verbal and tactile cues. Comments/Distance (ft) 1: 40 ft total broken up by multiple rest breaks Stairs Stairs: No Bed Mobility Bed Mobility: Yes Bed Mobility 1 Bed Mobility From 1: Supine Bed Mobility Type 1: To Bed Mobility to 1: Short sit Level of Assistance 1: Moderate assistance Bed Mobility Comments 1: Pt requires modA to progress trunk this date. Cues to use bed rails without success. Transfers Transfer: Yes Transfer 1 Transfer From 1: Bed, Sit Transfer Type 1: To Transfer to 1: Chair with arms, Sit Technique 1: Sit to stand, Stand to sit Transfer Device 1: rolling walker Transfer Level of Assistance 1: Close supervision Outcome Assessments 6 Clicks (Mobility) Help from another person turning from your back to you (more content not included)... [facility] 07-08-2024 Note [facility] Medicine Daily Progress Note - 07/08/2024 8:43 AM; Room: [id number]- Admission: 07/06/2024 11:47 AM; Length of stay: 1 days THE HOSPITALIST TEAM PREFERS TO USE [employer] CHAT FOR COMMUNICATION 7AM-7PM. IF I DO NOT RESPOND WITHIN 15 MINUTES, PLEASE PAGE ME/CALL THROUGH THE CONCRETE PLACEMENT EQUIPMENT OPERATOR. FROM 7PM-7AM, PLEASE PAGE [phone](COVR) Code Status: Full Code Barriers to Discharge: Pending blood cultures, urine culture susceptibility Expected Discharge Date: 1-2 days Discharge Destination: home vs SNF Overview Patient is seen for evaluation and management of hematuria. Subjective Patient was examined at bedside resting comfortably. No acute distress. He denies any abdominal pain, fever, chills, nausea, or vomiting. He denies any pain or rash. He continues to make urine. More had clear, yellow urine no visible blood. He last had a bowel movement this morning. No new complaints today. Physical Exam Visit Vitals BP 135/66 Pulse 80 Temp 37.2 ???C (99 ???F) Resp 17 Intake/Output Summary (Last 24 hours) at 07/08/2024 0843 Last data filed at 07/08/2024 0600 Gross per 24 hour Intake -- Output 1200 ml Net -1200 ml Physical Exam Constitutional: Appearance: Normal appearance. He is normal weight. HENT: Head: Normocephalic and atraumatic. Nose: Nose normal. Cardiovascular: Rate and Rhythm: Normal rate and regular rhythm. Pulmonary: Effort: Pulmonary effort is normal. Breath sounds: Normal breath sounds. Abdominal: Palpations: Abdomen is soft. Musculoskeletal: General: Normal range of motion. Cervical back: Normal range of motion and neck supple. Skin: General: Skin is warm and dry. Neurological: General: No focal deficit present. Mental Status: He is alert and oriented to person, place, and time. Mental status is at baseline. Psychiatric: Mood and Affect: Mood normal. Behavior: Behavior normal. Thought Content: Thought content normal. Judgment: Judgment normal. Estimated body mass index is 35.28 kg/m??? as calculated from the following: Height as of this encounter: 1.575 m (5' 2 ). Weight as of this encounter: 87.5 kg (192 lb 14.4 oz). 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 Advised to follow with outpatient urology. Urinalysis showed nitrites and leukocytes with RBCs and WBCs. WBC up to 12.11 from 11.64 yesterday. Urine culture prelim result grew staph aureus, susceptibility pending. Patient's family stated that he has had MRSA UTI in the past. Start patient on vancomycin. Blood cultures pending. Coronary artery disease s/p CABG X4 in 2006 Continue aspirin. Discussed with urology. History of CVA 04/19/2024 Continue aspirin Class I obesity History of colon cancer status post colectomy, chemotherapy and radiation in 1998 As the teaching physician, I have personally performed or re-performed the history of present illness, physical exam and medical decision-making activities of the encounter and verified the medical student's documentation. I made pertinent changes as necessary to ensure accurate documentation. There may be additional comments below. VTE Prophylaxis: Contraindicated due to hematuria Scheduled Meds aspirin, 81 mg, oral, Daily atorvastatin, 80 mg, oral, Daily [Held by provider] heparin (porcine), 5,000 Units, subcutaneous, q12h PAYTON tamsulosin, 0.4 mg, oral, Daily Pertinent Investigations Hematology: Results from last 7 days Lab Units 07/07/24 0542 07/06/24 1255 WBC AUTO 10*3/uL 11.64* 11.72* HEMOGLOBIN g/dL 12.6* 13.3 HEMATOCRIT % 37.1* 39.3 MCV fL 92.3 93.3 PLATELETS AUTO 10*3/uL 156 161 Chemistry: Results from last 7 days Lab Units 07/07/24 0542 07/06/24 1255 SODIUM mmol/L 139 138 POTASSIUM mmol/L 3.6 3.8 CHLORIDE mmol/L 108* 109* CO2 mmol/L 26 21 BUN mg/dL 23 22 CREATININE mg/dL 0.77 0.77 GLUCOSE mg/dL 106* 127* CALCIUM mg/dL 8.3* 8.4* No lab exists for component: AFIO2 , APHT , APCOT , APOT , ATCO2 , CK , ALB , IBILI Historical Values: (Includes values prior to this admission) No results found for: PREALBUMIN , TSH , T3FREE , FREET4 , CORTISOL , FEV1 , [id number] , DLCO , RVSP , HDL , LDL No results found for: [id number] , IRON , TIBC , C3 , C4 , CORETTA , CANCA , ASO , PSA , CEA , CA125 , CA199 , AFP , CA153 Imaging No image results found. Discharge Planning Expected Discharge Disp (more content not included)... [facility] 07-07-2024 Note Checked patient's ro om twice no visitors at those times. Called patient's and left a voicemail. Left a list of SNF's at bedside with writers contact info. [facility] 07-07-2024 Note Hospital Medicine Daily Progress Note - 07/07/2024 1:59 PM; Room: 4183/4183-01 Admission: 07/06/2024 11:47 AM; Length of stay: 1 days THE HOSPITALIST TEAM PREFERS TO USE [employer] CHAT FOR NON-URGENT COMMUNICATION 7AM-7PM. IF I DO NOT RESPOND WITHIN 20 MINUTES OR URGENT MATTERS, PLEASE CALL THROUGH THE CONCRETE PLACEMENT EQUIPMENT OPERATOR. FROM 7PM-7AM, PLEASE PAGE [phone](COVR). Code Status: Full Code Barriers to Discharge: Hematuria Expected Discharge Date: 07/08/2024 Discharge Destination: home Overview Patient is seen for evaluation and management of hematuria. Subjective Patient was seen and examined at bedside this morning. He was alert awake and oriented. He denied any active complaints. Patient's at bedside. Discussed plan of care with and RN at bedside. Physical Exam Visit Vitals BP 131/70 Pulse 79 Temp 37.2 ???C (99 ???F) Resp 16 Intake/Output Summary (Last 24 hours) at 07/07/2024 1359 Last data filed at 07/07/2024 0546 Gross per 24 hour Intake 240 ml Output 650 ml Net -410 ml Physical Exam Constitutional: Appearance: Normal appearance. He is obese. Cardiovascular: Rate and Rhythm: Normal rate and regular rhythm. Pulses: Normal pulses. Heart sounds: Normal heart sounds. Pulmonary: Effort: Pulmonary effort is normal. Breath sounds: Normal breath sounds. Abdominal: Palpations: Abdomen is soft. Comments: Midline abdominal scar due to prior colectomy Skin: General: Skin is warm. Neurological: Mental Status: He is alert. Estimated body mass index is 35.28 kg/m??? as calculated from the following: Height as of this encounter: 1.575 m (5' 2 ). Weight as of this encounter: 87.5 kg (192 lb 14.4 oz). 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 Follow-up on urinalysis and urine culture urology following Coronary artery disease s/p CABG X4 in 2006 Continue aspirin History of CVA 04/19/2024 Continue aspirin Class I obesity History of colon cancer status post colectomy, chemotherapy and radiation in 1998 VTE Prophylaxis: Contraindicated due to hematuria Scheduled Meds atorvastatin, 80 mg, oral, Daily [Held by provider] heparin (porcine), 5,000 Units, subcutaneous, q12h PAYTON tamsulosin, 0.4 mg, oral, Daily Pertinent Investigations Hematology: Results from last 7 days Lab Units 07/07/24 0542 07/06/24 1255 WBC AUTO 10*3/uL 11.64* 11.72* HEMOGLOBIN g/dL 12.6* 13.3 HEMATOCRIT % 37.1* 39.3 MCV fL 92.3 93.3 PLATELETS AUTO 10*3/uL 156 161 Chemistry: Results from last 7 days Lab Units 07/07/24 0542 07/06/24 1255 SODIUM mmol/L 139 138 POTASSIUM mmol/L 3.6 3.8 CHLORIDE mmol/L 108* 109* CO2 mmol/L 26 21 BUN mg/dL 23 22 CREATININE mg/dL 0.77 0.77 GLUCOSE mg/dL 106* 127* CALCIUM mg/dL 8.3* 8.4* No lab exists for component: AFIO2 , APHT , APCOT , APOT , ATCO2 , CK , ALB , IBILI Historical Values: (Includes values prior to this admission) No results found for: PREALBUMIN , TSH , T3FREE , FREET4 , CORTISOL , FEV1 , [id number] , DLCO , RVSP , HDL , LDL No results found for: [id number] , IRON , TIBC , C3 , C4 , CORETTA , CANCA , ASO , PSA , CEA , CA125 , CA199 , AFP , CA153 Imaging No image results found. Discharge Planning Expected Discharge Disposition: Home or Self Care () PT Discharge Recommendations: Home OT Discharge Recommendations: Home OT, With assist Signed Barrera Manley MD [facility] 07/07/2024 1:59 PM [facility] 07-07-2024 Note Occupational Therapy Occupational Therapy Evaluation Patient Name: Kyler Richard : 1940 Today's Date: 07/07/2024 Discharge Recommendation: Home OT with A 83 y/o M admitted with recurrent hematuria. Initiated session with pt supine in bed. Pt supine to sit, tolerated ROM and MMT, sit to stand with rw, functional mobility to bathroom, seated BM on toilet, sit to stand, vanessa hygiene, to sink, hand hygiene, to chair, stand to sit, pt uncomfortable in chair, sit to stand, around bed to alternate chair, and stand to sit, and initiated self feeding. Concluded session with pt seated in chair with call light in reach. RN approved pt for OOB activity this date and pt agreeable. Time In: 0950 Time Out: 1026 General Subjective: Pt pleasant and cooperative Family/Caregiver Present: No Patient Active Problem List Diagnosis Hematuria Cerebrovascular accident (CVA) due to occlusion of precerebral artery (CMS/HCC) Penile hypospadias Coronary artery disease involving [place] coronary artery of [place] heart without angina pectoris History reviewed. No pertinent past medical history. History reviewed. No pertinent surgical history. Precautions Precautions Medical Precautions: fall risk, telemetry Pain Pain Assessment Pain Assessment: 0-10 Pain Score: 5 - Moderate pain (with activity, 2 at rest) Pain Location: Abdomen Cognition Cognition Overall Cognitive Status: Within Functional Limits General Assessment General Assessment Hearing: [place] Home Living Home Living Type of Home: House Lives With: Spouse Home Adaptive Equipment: Walker rolling, Wheelchair-manual, Quad cane, Sock aid, Rollator, Lift Chair Home Layout: Two level, Able to live on main level with bedroom/bathroom Home Access: Stairs to enter with rails Entrance Stairs-Rails: Both Entrance Stairs-Number of Steps: 5 Bathroom Shower/Tub: Tub/shower unit, Walk-in shower Bathroom Toilet: Standard Bathroom Equipment: Grab bars in shower, Grab bars around toilet, Shower chair without back Prior Level of Function Prior Function Level of [place]: Independent with ADLs and functional transfers, Independent with homemaking with ambulation ( drives) Prior Functional Mobility: Independent with rolling walker, Household distances, Independent with cane, Independent with wheelchair, Community distances Receives Help From: Family Prior IADLs Static Sitting Balance Static Sitting Balance Static Sitting-Balance Support: Feet supported Static Sitting-Level of Assistance: Independent Dynamic Sitting Balance Dynamic Sitting Balance Dynamic Sitting-Balance Support: Feet supported Dynamic Sitting-Balance: Forward lean, Reaching for objects Dynamic Sitting Balance-Level of Assistance: Close supervision Static Standing Balance Static Standing Balance Static Standing-Balance Support: Right upper extremity supported, Left upper extremity supported, With device Static Standing-Level of Assistance: Contact guard Dynamic Standing Balance Dynamic Standing Balance Dynamic Standing-Balance Support: Right upper extremity supported, Left upper extremity supported, With device Dynamic Standing Balance-Level of Assistance: Contact guard ADL ADL Eating Assistance: Independent Eating Deficit: (initiating self feeding at EOS) Grooming Assistance: Stand by Grooming Deficit: Wash/dry hands Bathing Assistance: Minimal UE Dressing Assistance: Stand by UE Dressing Deficit: (managing gown) LE Dressing Assistance: Moderate LE Dressing Deficit: (typically uses sock aide) Toileting Assistance with Device: Maximal Toileting Deficit: Perineal hygiene (BM seated on toilet, more, A in standing for vanessa hygiene, A for brief managment) Bed Mobility Bed Mobility Bed Mobility: Yes Bed Mobility 1 Bed Mobility From 1: Supine Bed Mobility Type 1: To Bed Mobility to 1: Short sit Level of Assistance 1: Minimum assistance Transfers Transfers Transfer: Yes Transfer 1 Transfer From 1: Bed Transfer Type 1: To Transfer to 1: Toilet Technique 1: Sit to stand, Stand to sit Transfer Device 1: rolling walker Transfer Level of Assistance 1: Contact guard Transfers 2 Transfer From 2: Toilet Transfer Type 2: To Transfer to 2: Chair with arms Technique 2: Sit to stand, Stand to sit Transfer Device 2: rolling walker Transfer Level of Assistance 2: Contact guard Transfers 3 Transfer From 3: Chair with arms Transfer Type 3: To Transfer to 3: Chair with arms (different chair) Technique 3: Sit to stand, Stand to sit Transfer Device 3: rolling walker Transfer Level of Assistance 3: Contact guard Objective General Assessments Activity Tolerance Endurance: Stage III Vision - Basic Assessment Current Vision: Wears glasses only for reading Sensation Light Touch: No apparent deficits Coordination Movements are Fluid and Coordinated: Yes Hand Function (more content not included)... [facility] 07-07-2024 Note Attestation signed by Kori Jay PT at 07/07/2024 3:02 PM This customs entry writer present and provided 1:1 supervision, direction of patient care and assistance with development of plan of care. Kori Jay PT, MPT Physical Therapy Evaluation Patient Name: Kyler Richard Today's Date: 07/07/2024 Admit Date: 07/06/2024 07/07/24 1304 PT Last Visit PT Received On 07/07/24 Plan Level of assist 1 assist PT Plan Skilled PT PT Frequency 5 times per week until discharge & PRN PT Discharge Recommendations longterm facility placement (Possible discharge home with improved mobility.) PT - Discharge Recommendations Placed Yes History of present illness Patient is a 83 y.o. male transferred here for inpatient urological care. Pt had multiple trips back to the ED with only limited successful irrigation attempts, for hematuria. Past Medical History L small vessel CVA w minimal R sided deficits, hypospadias, CAD s/p CABG x4 ~2007, obesity Current Diagnoses Recurrent Hematuria PRIOR LEVEL OF FUNCTION obtained per patient Vision: glasses for reading only Hearing: hearing aides Mobility: uses rolling walker, straight cane for household distances. , uses rolling walker for community distances. 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 Social support spouse / significant other Home Set-Up: Patient lives with spouse in a 2 story home with 5 steps to enter with a handrail on both sides Bedroom location: 1st floor Bathroom location: 1st floor Additional DME/adaptive equipment: Rolling walker and Straight cane Pt left up in bedside chair, call light w/in reach, RN aware OBJECTIVE ASSESSMENT/PHYSICAL EXAM Cognition Alert Overall Cognitive Status: WNL Arousal/Alertness: Appropriate responses to stimuli Orientation Level: Oriented x4 Following Commands: Follows one-step commands consistently without difficulty Safety Judgment: Good awareness of safety precautions Awareness of Errors: Good awareness of errors made Attention Span: Appears intact Memory: Appears intact Problem Solving: Able to problem solve independently Communication: Intact Pain: 2 Location/description: c/o feeling sore in lower abdominal region Sensation: WNL Edema/Skin Appearance: Edema/swelling is observed in the LE on bilateral sides. Coordination/Tone: WNL Precautions IV, telemetry Objective assessment Bed mobility Sit to supine: minimal assist Pt laid diagonal in bed; needed cueing to straighten self Scooting up in bed: maximal assist. Pt needed assist with moving legs onto bed Pt used bed rails to scoot in bed Transfers Sit to stand: contact guard assist and Stand to sit: contact guard assist Needed assist with verbal cues for walker use Pt had an unsuccessful attempt x1 Pt showed ability to problem solve and was able to stand up on 2nd attempt Gait Patient ambulates 30 feet, with Rolling walker, and contact guard assist Antalgic gait with R step to gait Needed assist with verbal cues for walker use Small step height, short stride length and slow Endurance Able to manage household distances Vitals Stable/unchanged significantly Balance Sitting: patient able to sit independently with both feet on ground, with upper extremity assist. Standing: patient able to stand with rolling walker and contact guard assist Posture WNL ROM UE ROM: WNL LE ROM: WNL Strength UE strength: Impaired; NAV Shoulder Flexion 4-/5, NAV Elbow extension 4/5 Functional weakness in R UE, pt reports due to CVA LE strength: Impaired; NAV Hip flexion 4-/5 Pt wears knee brace for R knee due to pain; Pt reports plan for TKA Core strength: Pt demonstrates difficulty with bed mobility Education Verbal, Feedback during session, Functional mobility, and Safety Mobility 6-Click T-Score: 07/07/24 1305 6 Clicks (Mobility) Help from another person turning from your back to your side while in a flat bed without using bedrails 2 Help from another person moving from lying on your back to sitting on the side of a flat bed without using bedrails 2 Help from another person moving to and from a bed to a chair (including a wheelchair) 3 Help from another person standing up from a chair using your arms (e.g. wheelchair or bedside chair) 3 Help from another person to walk in hospital room 3 Help from another person climbing 3-5 steps with a railing 2 Mobility 6 Clicks T-Score 15 Assessment Patient will benefit from Skilled Physical Therapy Services due to demonstrating limited functional mobility secondary to decreased strength, and (more content not included)... [facility] 07-07-2024 Note Urology Daily Progre ss Note HISTORY OF PRESENT ILLNESS: The patient is a 83 y.o. male who presents with hematuria/clot retention NAOE AF/VSS More clear yellow Physical Exam: This a 83 y.o. patient Patient Vitals for the past 24 hrs: BP Temp Temp src Pulse Resp SpO2 Height Weight 07/07/24 0430 -- -- -- -- -- -- 1.575 m (5' 2 ) 87.5 kg (192 lb 14.4 oz) 07/07/24 0422 134/64 -- -- 77 18 93 % -- -- 07/06/242112 137/55 36.8 ???C (98.3 ???F) Oral 75 18 94 % -- -- 07/06/242109 -- -- -- -- -- -- -- 88 kg (194 lb 0.1 oz) 07/06/24 1221 102/61 36.7 ???C (98.1 ???F) -- 68 -- 95 % -- -- Constitutional: Patient in no acute distress; Neuro: alert and oriented to person place and time. Psych: Mood and affect normal. Skin: Normal Lungs: Respiratory effort normal Cardiovascular: Normal peripheral pulses Abdomen: Soft, non-tender, non-distended with no CVA, flank pain, hepatosplenomegaly or hernia. Lymphatics: no palpable lymphadenopathy Uncircumcised w/ mild phimosis More cath in place draining yellow urine LABS: Results from last 7 days Lab Units 07/07/24 0542 07/06/24 1255 WBC AUTO 10*3/uL 11.64* 11.72* HEMOGLOBIN g/dL 12.6* 13.3 HEMATOCRIT % 37.1* 39.3 PLATELETS AUTO 10*3/uL 156 161 Results from last 7 days Lab Units 07/07/24 0542 07/06/24 1255 SODIUM mmol/L 139 138 POTASSIUM mmol/L 3.6 3.8 CHLORIDE mmol/L 108* 109* CO2 mmol/L 26 21 BUN mg/dL 23 22 CREATININE mg/dL 0.77 0.77 CALCIUM mg/dL 8.3* 8.4* No results found for: PSA Assessment and Plan Impression: Hematuria with clot retention 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 We will hold off on starting continuous bladder irrigation for now. However if hematuria worsens or patient continues to going to clot retention we will likely need to initiate CBI. Continue to hand irrigate with 50 cc of normal saline as needed for clotting of the More catheter. Will add Levsin as needed for bladder spasms Will obtain UA/urine culture Monitor hemoglobin daily Urology will continue to follow. Tyshawn Whitehead MD Urology Resident, PGY-2 I did not personally see the patient on the day of service. I discussed the evaluation and management of the patient with the resident and agree with the resident's findings, assessment, and plan as documented above. Jerry Cheatham MD [facility] 07-06-2024 Note Urology Consultation Patient: Kyler Richard Date of : 1940 REASON FOR CONSULT hematuria/clot retention HISTORY OF PRESENT ILLNESS: The patient is a 83 y.o. male with past medical history of CVA with right-sided deficits, CAD status post CABG times 11/2006, colon cancer status post chemo/radiation back in the and past urologic history of BPH status post prostate procedure per family back in February 2024, nephrolithiasis all past on his own, and recent intermittent hematuria associated with clot retention who presents as transfer from OSH for clot retention and urologic consultation. On arrival, patient's labs showing WBC 11.72, hemoglobin 13.3, and creatinine 0.77 (baseline). UA and urine culture were not performed. Patient has no recent upper tract imaging per chart. On evaluation, patient is afebrile and hemodynamically stable. Patient is resting comfortably in bed and in no acute distress. Patient has 16 [place]uran More catheter in place draining arelis urine in the tube and a collection bag with significant amount of bloody urine. Patient states this episode of hematuria began yesterday after getting up to go the bathroom when he noticed significant amount of blood in More catheter and eventual stoppage of drainage from the More catheter. Patient states that he has had intermittent hematuria for the last 2 years which has progressively worsened since beginning aspirin and Plavix after stroke in March. Patient has been to the ED at least 3 times for clot retention over the last several months. 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 Additionally family notes that patient recently underwent prostate procedure at the beginning of February. Patient currently denies fever, chills, nausea, vomiting, chest pain, shortness of breath, abdominal/flank pain, diarrhea or constipation. 16 Honduran More catheter was exchanged bedside for a 24 Honduran three-way. Catheter was exchanged without complication. Patient was then hand irrigated with return of approximately 10 to 20 cc of clot. Patient had significant bladder spasms which may have limited the ability to hand irrigate all of the clot out of the bladder. However, after hand irrigation More catheter was draining translucent pink urine. Past Medical History: No past medical history on file. Past Surgical History: No past surgical history on file. Previous surgery: Unknown prostate procedure Medications: heparin (porcine), 5,000 Units, subcutaneous, q12h PAYTON lidocaine, 11 mL, urethral, Once PRN medications: acetaminophen, melatonin, ondansetron ODT OR ondansetron, Insert peripheral IV AND Saline lock IV AND sodium chloride Allergies: Patient has no allergy information on record. Social History: Social History Socioeconomic History Marital status: Spouse name: Not on file Number of children: Not on file Years of education: Not on file Highest education level: Not on file Occupational History Not on file Tobacco Use Smoking status: Not on file Smokeless tobacco: Not on file Substance and Sexual Activity Alcohol use: Not on file Drug use: Not on file Sexual activity: Not on file Other Topics Concern Not on file Social History Narrative Not on file Social Determinants of Health Financial Resource Strain: Not on file Food Insecurity: Not on file Transportation Needs: Not on file Physical Activity: Not on file Stress: Not on file Social Connections: Not on file Intimate Partner Violence: Not on file Housing Stability: Not on file Family History: No family history on file. REVIEW OF SYSTEMS: General ROS: negative, no fatigue Psychological ROS: no depression, no suicidal thoughts ENT ROS: no bleeding, no ear tingling Hematological and Lymphatic ROS: no bruising, no swelling Endocrine ROS: negative Respiratory ROS: no wheezing, no shortness of breath Cardiovascular ROS: no chest pain Gastrointestinal ROS: no constipation, no diarrhea Genito-Urinary ROS: see HPI Musculoskeletal ROS: no muscle pain Physical Exam: Constitutional: Patient in no acute distress; Neuro: alert and oriented to person place and time. Psych: Mood and affect normal. Skin: Normal Lungs: Respiratory effort normal Cardiovascular: Normal peripheral pulses Abdomen: Soft, non-tender, non-distended with no CVA, flank pain More catheter in place draining translucent pink urine Uncircumcised with mild phimosis LABS: Results from last 7 days Lab Units 07/06/24 1255 WBC AUTO 10*3/uL 11.72* HEMOGLOBIN g/dL 13.3 HEMATOCRIT % 39.3 PLATELETS AUTO 10*3/uL 161 Results from last 7 days Lab Units 07/06/24 1255 SODIUM mmol/L 138 POTASSIUM mmol/L 3.8 CHLORIDE mmol/L 109* CO2 mmol/L 21 BUN mg/dL 22 CREATININE mg/dL 0.77 CALCIUM mg/dL 8.4* No results found for: PSA Urinalysi (more content not included)... [facility] 07-06-2024 Note Hospital Medicine History and Physical 07/06/2024 12:52 PM THE HOSPITALIST TEAM PREFERS TO USE [employer] CHAT FOR COMMUNICATION 7AM-7PM. IF I DO NOT RESPOND WITHIN 15 MINUTES, PLEASE PAGE ME/CALL THROUGH THE CONCRETE PLACEMENT EQUIPMENT OPERATOR. FROM 7PM-7AM, PLEASE PAGE [phone](COVR) Chief Complaint No chief complaint on file. History of Present Illness Kyler Richard is an 83 y.o. male with a PMH of recent L small vessel CVA w minimal R sided deficits, hypospadias, and history of CAD s/p CABG x4 ~2007, who presents from [facility] ED as transfer with a chief complaint of recurrent hematuria. Patient denies requiring a More catheter initially after stroke back in March, but began having episodes of hematuria and intermittent obstruction secondary to clots prompting a [facility]. Due to multiple trips back to the ED and only limitedly successful irrigation attempts, patient was transferred here for inpatient urological care. His outpatient urologist is Dr. Interiano. Hemoglobin has been stable in the 15's. Of note, patient was not taking Plavix prior to his last stroke and stroke team documented that patient was only required to be on Plavix for 21 days after which she would need to continue aspirin indefinitely. From what I see in the records patient has been on Plavix since his stroke. Thus far it is unclear why he has hematuria. While speaking with the ED physician on the phone he denied any overt lesions on recent CT abdomen pelvis at outside facility, though I have not seen these films. Patient is denying any pain now but reportedly had pretty severe pain while bladder was being irrigated. Review of System and Physical Exam Temp: [36.7 ???C (98.1 ???F)] 36.7 ???C (98.1 ???F) Heart Rate: [68] 68 BP: (102)/(61) 102/61 Physical Exam Vitals and nursing note reviewed. Constitutional: Appearance: Normal appearance. He is obese. HENT: Head: Normocephalic. Nose: Nose normal. Mouth/Throat: Mouth: Mucous membranes are moist. Eyes: Pupils: Pupils are equal, round, and reactive to light. Cardiovascular: Rate and Rhythm: Normal rate and regular rhythm. Pulses: Normal pulses. Heart sounds: Normal heart sounds. No murmur heard. No friction rub. No gallop. Pulmonary: Effort: Pulmonary effort is normal. Breath sounds: Normal breath sounds. Abdominal: General: Abdomen is flat. Bowel sounds are normal. Palpations: Abdomen is soft. Genitourinary: Penis: Hypospadias present. Musculoskeletal: General: Normal range of motion. Cervical back: Normal range of motion. Right lower leg: Edema (2+) present. Left lower leg: Edema (2+) present. Skin: General: Skin is warm. Capillary Refill: Capillary refill takes less than 2 seconds. Neurological: General: No focal deficit present. Mental Status: He is alert and oriented to person, place, and time. Mental status is at baseline. Psychiatric: Mood and Affect: Mood normal. Behavior: Behavior normal. Judgment: Judgment normal. Review of Systems Constitutional: Negative for chills and fever. Respiratory: Negative for cough and shortness of breath. Cardiovascular: Negative for chest pain. Gastrointestinal: Positive for abdominal pain. Negative for constipation, diarrhea, nausea and vomiting. Genitourinary: Positive for difficulty urinating and hematuria. Musculoskeletal: Negative for back pain. Neurological: Negative for syncope, weakness, numbness and headaches. Psychiatric/Behavioral: Negative for confusion. All other systems reviewed and are negative. Problem List Patient Active Problem List Diagnosis Date Noted Hematuria 07/06/2024 Past Medical History No past medical history on file. Past Surgical History No past surgical history on file. Social History Social History Socioeconomic History Marital status: Spouse name: Not on file Number of children: Not on file Years of education: Not on file Highest education level: Not on file Occupational History Not on file Tobacco Use Smoking status: Not on file Smokeless tobacco: Not on file Substance and Sexual Activity Alcohol use: Not on file Drug use: Not on file Sexual activity: Not on file Other Topics Concern Not on file Social History Narrative Not on file Social Determinants of Health Financial Resource Strain: Not on file Food Insecurity: Not on file Transportation Needs: Not on file Physical Activity: Not on file Stress: Not on file Social Connections: Not on file Intimate Partner Violence: Not on file Housing Stability: Not on file Family History family history is not on file. Allergies has no allergies on file. Prior to Admission Medications No medications prior to admission. Labs Labs Reviewed BASIC METABOLIC PANEL CBC Imaging No image results found. Assessment and Plan Recurrent hematuria w intermittent obstruction/retention H (more content not included)... [facility] 06-02-2024 Hospital Discharge instructions Patient Education 06/02/2024 [...] Follow these instructions at home: Medicines Take ytxl-ukp-obtzkgr and prescription medicines only as told by [...] provider. Document Revised: 05/03/2021 Document Reviewed: 05/03/2021 [employer] Patient Education 2023 [employer]. 06/02/2024 13:23:02 Urinary Tract Infection, Adult Urinary [...] Treatment for this condition includes: Antibiotic medicine. Tnqg-xlh-ozvtkry medicines to treat discomfort. Drinking enough water [...] Follow these instructions at home: Medicines Take zfaz-lvy-zedpngn and prescription medicines only as told by [...] provider. Document Revised: 03/19/2021 Document Reviewed: 03/24/2021 [employer] Patient Education 2023 [employer]. 06/02/2024 13:22:59 Hematuria, Adult Hematuria, Adult Hematuria [...] Follow these instructions at home: Medicines Take xnij-uwl-aypjhzw and prescription medicines only as told by [...] or the blood stops without treatment. Take rqyx-avs-yvdxxem and prescription medicines only as told by your health care provider. Drink enough fluid to keep your urine pale yellow. This information is not intended to replace advice given to you by your health care provider. Make sure you discuss any questions you have with your health care provider. Document Revised: 04/12/2021 Document Reviewed: 04/12/2021 [employer] Patient Education 2023 [employer]. Follow Up Care 05/25/2024 13:00:03 With:KIM Lino APRN, Lazara Echavarria, PARVIN, URL Address: When: Unknown Comments:4-week cath change [facility] Stephany 06-02-2024 Note Patient Education Obstetrics and Gynecology [...] this condition includes: ? Antibiotic medicine. ? Akor-mst-jcircav medicines to treat discomfort. ? Drinking enough [...] these instructions at home: Medicines ? Take xwnu-qle-stsqlzo and prescription medicines only as told by [...] Garner DO on 04/17/2024 8:52 AM [facility] 03-17-2024 Hospital Discharge instructions Patient Education [...] Follow these instructions at home: Medicines Take tnne-kgn-lzrlmoe and prescription medicines only as told by [...] provider. Document Revised: 05/03/2021 Document Reviewed: 05/03/2021 [employer] Patient Education 2022 [employer]. Follow Up Care 03/13/2024 14:20:02 With:KIM Lino APRN, PARVIN Kirk, URL Address: When: Unknown [facility] 03-17-2024 Note Patient Education Urology Acute [...] these instructions at home: Medicines ? Take sikc-lxu-qzlubom and prescription medicines only as told by [...] provider. Document Revised: 05/03/2021 Document Reviewed: 05/03/2021 [employer] Patient Education ? 2022 [employer]. [facility] 02-11-2024 Evaluation + Plan note Diagnostic Tests PendingUrine Culture 02/11/24 [facility] 02-11-2024 Hospital Discharge instructions Patient [...] Follow these instructions at home: Medicines Take rtrm-ebg-nhopdne and prescription medicines only as told by [...] or the blood stops without treatment. Take ufha-lpw-uxnwbub and prescription medicines only as told by your health care provider. Drink enough fluid to keep your urine pale yellow. This information is not intended to replace advice given to you by your health care provider. Make sure you discuss any questions you have with your health care provider. Document Revised: 04/12/2021 Document Reviewed: 04/12/2021 [employer] Patient Education 2022 [employer]. 02/11/2024 10:34:29 Benign Prostatic Hyperplasia Benign Prostatic [...] urethra. Follow these instructions at home: Take hbus-lwo-cfgkytz and prescription medicines only as told by [...] provider. Document Revised: 02/28/2022 Document Reviewed: 02/28/2022 [employer] Patient Education 2022 [employer]. Follow Up Care 04/16/2022 14:54:37 With:KIM Lino APRN, PARVIN Kirk, URL Address: When: Unknown Comments:1 year With:JAYDON COE, Reno Maciel, URL Address: [facility] [address] , [place] [address] [phone] When: Unknown [facility] 02-11-2024 Note - From: Julia Charlton [...] no improvement in 2 to 3 days [employer] Other 02-01-2023 Hospital Discharge instructions Patient Education [...] or mouth. Supplies needed: Soap. Alcohol-based hand microchip specialist. Standard cleaning products. Disinfectants, such as bleach. [...] water are not available, use alcohol-based hand microchip specialist. Avoid touching your face, mouth, nose, or [...] water. Air-dry your dishes or use a computer science professor. Do not share dishes or eating utensils. [...] certain germs and not others. Read the appointment scheduler's instructions or read online resources to determine [...] minutes after each use, or according to appointment scheduler's instructions. Wash reusable cleaning cloths and sanitize [...] water are not available, use alcohol-based hand microchip specialist. In general: Stay home except to get [...] for Professionals in Infection Control and Epidemiology: [email or web address] Summary It is important to know how [...] 12/08/2019 Document Reviewed: 11/06/2019 Elsevier Patient Education 2019 [employer]. Follow Up Care 09/20/2022 14:58:28 With:JAYDON COE, Reno Maciel, URL Address: [facility] [address] , [place] [address]- When:3 months Comments:UTI F/U [facility] 08-22-2022 Hospital Discharge instructions Patient Education 04/16/2022 [...] urethra. Follow these instructions at home: Take qoxd-mou-wjruxzb and prescription medicines only as told by [...] 08/12/2006 Document Revised: 07/07/2019 Document Reviewed: 09/16/2017 [employer] Patient Education 2020 [employer]. 04/16/2022 14:44:17 Calorie Counting for Weight Loss [...] 08/12/2006 Document Revised: 05/01/2019 Document Reviewed: 07/12/2017 [employer] Patient Education 2020 [employer]. Follow Up Care 10/16/2021 15:00:57 With:JAYDON COE, [place] Maciel, URL Address: [address] [place], [place] [id number]- Business (1) When:Within 1 Year(s) [facility] 02-11-2021 NotePatient Outreach ([facility]) KYLER RICHARD ([id number]) 1940 M Date Time Provider Department 10/06/20 [facility], JOLYNN WHITFIELD During your visit today, we recorded the following information about you: Allergies As of Date: 10/06/2020 (No Known Allergies) Date Reviewed: 11/27/2018 Reviewed by: Huyen Barraza - Fully Assessed Order(s):SARS-COVID VACCINE 1ST DOSE APPT [[id number]] Order #: [id number] FUTURE Prescriptions as of 10/06/2020 Sig: RHOPRESSA [...] arteriosclerosis [I25.10] Letter Text Encounter Status:Closed by [employer] on 10/10/20[facility] Evaluation + Plan note Future Appointments Appointment Date:04/19/2023 09:30:00 AM Scheduled Provider:Reno INTERIANO MD Location:[facility] Appointment Type:URO Office Visit [facility] evaluation + Plan note Future Appointments Appointment Date:01/16/2023 09:45:00 AM Scheduled Provider:Reno INTERIANO MD Location:[facility] Appointment Type:URO Office Visit Appointment Date:04/19/2023 09:30:00 AM Scheduled Provider:Reno INTERIANO MD Location:[facility] Appointment Type:URO Office Visit [facility] Evaluation + Plan note Future Appointments Appointment Date:04/14/2024 11:30:00 AM Scheduled Provider:KIM Lino APRN Lazara X Location:[facility] Appointment Type:URO Office Visit [facility] evaluation + Plan note Future Appointments Appointment Date:06/30/2024 09:00:00 AM Scheduled Provider:KIM Lino APRN Lazara X Location:[facility] Appointment Type:URO Office Visit Diagnostic Tests Pending * Urine Culture 06/02/24 [facility] evaluation + Plan note Future Appointments Appointment Date:06/30/2024 09:00:00 AM Scheduled Provider:KIM Lino APRN, Lazara X Location:[facility] Appointment Type:URO Office Visit [facility] evaluation + Plan note Future Appointments Appointment Date:07/21/2024 11:00:00 AM Scheduled Provider:KIM Lino APRN Lazara X Location:[facility] Appointment Type:URO Office Visit [facility] Evaluation + Plan note Future Appointments Appointment Date:08/06/2024 11:40:00 AM Scheduled Provider:PRIYA ELIZABETH PA-C Location:[facility] Appointment Type:URO Office Visit [facility] evaluation + Plan note Future Appointments Appointment Date:09/03/2024 11:20:00 AM Scheduled Provider:PRIYA ELIZABETH PA-C Location:[facility] Appointment Type:URO Complex Office Visit [facility] [employer] History general Narrative - Reported* Type Description Date Medical History heart disease Medical History colon cancer Medical History glaucoma Surgical History open heart surgery Surgical History colon surgery Surgical History 3 hernia repairs Surgical History torn retina Surgical History cataracts Surgical History left total hip 2017 Surgical History Eye lid lift both 2020 Hospitalization History see above Hospitalization History back spasms 2022 [employer] Other Hospital course Narrative No data available for this section [facility] Discharge instructions No data available for this section [facility] No data available for this section [facility] [employer] Summary Purpose Family History No Family History [...] and content) DATE CREATED AUTHOR 09/19/2021 [facility] DATE CREATED AUTHOR AUTHOR'S ORGANIZ ATION 02/01/2023 [facility] DATE CREATED AUTHOR AUTHOR'S ORGANIZ ATION 12/31/2023 [facility] DATE CREATED AUTHOR AUTHOR'S ORGANIZ ATION 02/13/2024 [facility] DATE CREATED AUTHOR AUTHOR'S ORGANIZ ATION 02/14/2024 [facility] DATE CREATED AUTHOR AUTHOR'S ORGANIZ ATION 04/22/2024 [facility] DATE CREATED AUTHOR AUTHOR'S ORGANIZ ATION 04/23/2024 [facility] DATE CREATED AUTHOR AUTHOR'S ORGANIZ ATION 06/03/2024 [facility] DATE CREATED AUTHOR AUTHOR'S ORGANIZ ATION 06/06/2024 [facility] DATE CREATED AUTHOR AUTHOR'S ORGANIZ ATION 08/09/2024 [facility] DATE CREATED AUTHOR AUTHOR'S ORGANIZ ATION 08/10/2024 [facility] Care Team (unrecognized sect ion and content) Personnel Name: Bayron Velazquez MD Address: [address] [place] [address] Personnel Name: Bayron Velazquez MD Address: Address: [address] [place] [address] Personnel Name: Bayron Velazquez MD Address: Address: [address] [place] [address] Personnel Name: Bayron Velazquez MD Address: Address: [address] [place], [place] [id number] Personnel Name: Bayron Velazquez MD Address: Address: [address] [place] [address] Personnel Name: Bayron Velazquez MD Address: Address: [address] [place], [place] [id number] Personnel Name: Bayron Velazquez MD Address: Address: [address] [place], [place] [id number] Personnel Name: Bayron Velazquez MD Address: Address: [address] [place], [place] [id number] Personnel Name: Bayron Velazquez MD Address: Address: [address] [place] [address], [place] [address] Personnel Name: Bayron Velazquez MD Address: Address: [address] [place] [address] Personnel Name: Bayron Velazquez MD Address: Address: [address] [place] [address] REASON FOR VISIT (unrecogniz ed section and [...] BE BASED ON THE PRIMARY CLINICAL RECORDS. [employer] provides no warranty or guarantee of the accuracy or completeness of information in this document.
[2024-08-10 11:43] LABS: Basophils Percent Auto 0.8 % (0.2-2.0); Eosinophils Absolute Auto 0.3 10^3/uL (0.0-0.7); Eosinophils Percent Auto 5.6 % (0.9-7.0); Hematocrit 35.6 % (42.0-54.0); Hemoglobin 11.7 g/dL (14.0-18.0); Immature Granulocytes Abs Auto 0.04 10^3/uL (0.00-0.03); Immature Granulocytes Pct Auto 0.8 % (0.0-0.5); Lymphocytes Absolute Auto 1.8 10^3/uL (1.2-3.8); Lymphocytes Percent Auto 37.6 % (20.5-60.0); Mean Corpuscular HGB Conc 32.9 g/dL (29.9-35.2); Mean Corpuscular Hemoglobin 30.5 pg (25.9-34.0); Mean Corpuscular Volume 92.7 fL (80.0-94.0); Mean Platelet Volume 10.6 fL (9.5-13.5); Monocytes Absolute Auto 0.4 10^3/uL (0.3-0.8); Monocytes Percent Auto 8.9 % (1.7-12.0); Neutrophils Absolute Auto 2.2 10^3/uL (1.4-6.5); Neutrophils Percent Auto 46.3 % (43.0-75.0); Platelet Count 211 10^3/uL (150-450); Red Blood Count 3.84 10^6/uL (4.70-6.10); Red Cell Distribution Width 14.6 % (11.0-15.0); White Blood Count 4.8 10^3/uL (4.0-11.0)
[2024-08-10 11:44] LABS: Estimated Average Glucose 128 mg/dL; Glycohemoglobin A1C 6.1 % (4.5-6.2)
[2024-08-10 12:05] LABS: Alanine Aminotransferase 117 U/L (16-63); Albumin Globulin Ratio 0.8; Alkaline Phosphatase 110 U/L (46-116); Anion Gap 9.9; Aspartate Amino Transferase 72 U/L (15-37); BUN Creatinine Ratio 23.3; Bilirubin Total 0.6 mg/dL (0.2-1.0); Calcium 8.6 mg/dL (8.5-10.1); Carbon Dioxide 29.1 mmol/L (21.0-32.0); Chloride 108 mmol/L (98-107); Chol HDL Ratio 2.4; Cholesterol 102 mg/dL (<=200); Estimated GFR (African America >60 (>=60 mL/min/1.73m^2); Estimated GFR (Non-African Ame >60 (>=60 mL/min/1.73m^2); Free T3 2.01 pg/mL (2.18-3.98); Globulin 3.7 g/dL; Glucose 106 mg/dL (74-106); HDL Cholesterol 42 mg/dL (40-60); LDL Cholesterol Calculated 35.4 mg/dL; Sodium 143 mmol/L (136-145); Thyroid Stimulating Hormone 1.135 uIU/mL (0.358-3.740); Total Protein 6.7 g/dL (6.4-8.2); Triglycerides 123 mg/dL (<=150); VLDL CHOLESTEROL 24.6 mg/dL
[2024-08-11 04:07] LABS: PSA, Free 0.07 ng/mL; Prostate Specific Ag 0.3 ng/mL (0.0-4.0)
== END 2024-08-10 10:57 | disposition home or self-care (01) ==
LOC: LAB 10:58
PROVIDERS: PCP Family Medicine; Visit Provider Family Medicine
DX: R53.83 Other fatigue (principal); I10 Essential (primary) hypertension; R73.09 Other abnormal glucose; Z12.5 Encounter for screening for malignant neoplasm of prostate; Z12.12 Encounter for screening for malignant neoplasm of rectum
CPT/HCPCS: 36415; 80053; 80061; 83036; 84153; 84154; 84436; 84443; 84481; 85025

== ENCOUNTER 2024-10-21 10:49 | Outpatient (OUT) | payer MEDICARE, SELFPAY ==
--- OUTSIDE RECORDS SUMMARY | 2024-10-21 10:58 | XMS_ITS | CCD ---
Author Organization [facility] Care Team Providers Care Billing Collections Specialist Name Role Phone Bayron Velazquez Primary Care [...] Unavailable RAMBO MILLIGAN Attending Unavailable RAMBO MILLIGAN A Referring Unavailable HOY, BAYRON M Primary Care Unavailable HOY, BAYRON M Referring Unavailable HOY, BAYRON M Primary Care Unavailable Orzech, Lazara X Attending Unavailable Orzech, Lazara X Attending Unavailable Emily Maria Attending Unavailable Orzech, Lazara X Attending Unavailable Orzech, Lazara X Attending Unavailable Orzech, Lazara X Admitting Unavailable Orzech, Lazara X Attending Unavailable INTERIANO, Reno R Referring Unavailable INTERIANO, Reno R Attending Unavailable Unavailable Primary Care Provider Unavailabl e MANLEY, BARRERA Referring Unavailable MANLEY, BARRERA Referring Unavailable AIYEWUNMI, OLGA Attending Unavailable PAYJACKIEJOSEFINA Referring Unavailable MANLEY, BARRERA Admitting Unavailable MANLEY, BARRERA Attending Unavailable AIYEWUNMI, OLGA Attending Unavailable Orzech, Lazara X Attending Unavailable GLENNDI SUTHERLAND Attending Unavailable Orzech, Lazara X Attending Unavailable Orzech, Lazara X Attending Unavailable INTERIANO, Reno R Attending Unavailable INTERIANO, Reno R Attending Unavailable GLENN, DI E Attending Unavailable GLENN, DI E Attending Unavailable Allergies Allergy Classification Reported Allergen(s) Allergy Type Date of Onset Reaction(s) Facility Quinolones (antibiotic) (2 sources) levoFLOXacin; Translations: [levofloxacin] Drug Allergy Irritation (qualifier value) [facility] (16 sources) levoFLOXacin; Translations: [levofloxacin] Drug Allergy Irritation (qualifier value) [facility] (1 source) ALLERGIES NOT ON FILE; Translations: [ALLERGIES NOT ON FILE] Propensity to adverse reactions (disorder) [facility] Repository Medications Current Medications Medication Drug Class(es) Dates Sig (Normalized) Sig (Original) Aspirin (13 sources) Platelet Aggregation Inhibitor, Nonsteroidal Anti-inflammatory Drug Start: 09-26-2022 aspirin Start Date: 09/26/22 Status: Ordered atorvastatin 40 mg oral tablet (15 sources) HMG-CoA Reductase Inhibitor Start: 03-13-2019 atorvastatin 40 mg oral tablet Refills(s) 0 Start Date: 03/13/19 Status: Ordered brimonidine (14 sources) alpha-Adrenergic Agonist Start: 03-13-2019 brimonidine ophthalmic [...] Active cetirizine hydrochloride 10 mg oral tablet (12 sources) Histamine-1 Receptor Antagonist Start: cetirizine 10 mg Tab Refills(s) 0 Start Date: 02/11/24 Status: Ordered clotrimazole 10 mg/ml topical cream (1 source) Azole Antifungal Start: End: clotrimazole Top 1% Crm 1 jennifer, Topical, BID for 14 day(s), 60 gm, Refill(s) 0, [facility], 158, cm, 06/02/24 11:55:00 EDT, Height/Length Dosing, 96, kg, 06/22/24 16:06:00 EDT, Weight Dosing Start Date: 06/22/24 Stop Date: 07/06/24 Status: Ordered dorzolamide (15 sources) Carbonic Anhydrase Inhibitor Start: take 1 [...] day(s), # 14 cap(s), Refills(s) 0, Pharmacy: [id number], 158, cm, 06/02/24 11:55:00 EDT, Height/Length Dosing, 96, kg, 06/02/24 11:55:00 EDT, Weight Dosing Start Date: 06/02/24 Stop Date: 06/09/24 Status: Ordered Start: 09-26-2022 End: 10-06-2022 take 1 capsule by mouth twice daily doxycycline hyclate 100 mg Cap 100 mg = 1 cap(s), Oral, BID, X 10 day(s), # 20 cap(s), Refills(s) 0, Pharmacy: [facility] #[id number], 160, cm, 09/26/22 13:50:00 EST, Height/Length Dosing, 97.3, kg, 09/26/22 13:50:00 EST, Weight Dosing Start Date: 09/26/22 Stop Date: 10/06/22 Status: Ordered hyoscyamine sulfate 0.125 mg sublingual tablet (12 sources) Start: 02-11-2024 hyoscyamine 0. 125 mg sublingual Tab Refills(s) 0 Start Date: 02/11/24 Status: Ordered icosapent ethyl 1000 mg oral capsule (15 sources) Start: 03-13-2019 Vascepa 1 g or al capsule Refills(s) 0 Start Date: 03/13/19 Status: Ordered take 2 capsules by m outh every twelve hours Vascepa 1 GM 2 capsules with food Orally Twice a day Active latanoprost (15 sources) Prostaglandin Analog Start: 03-13-2019 take 1 [...] day Active lisinopril 10 mg oral tablet (15 sources) Angiotensin Converting Enzyme Inhibitor Start: 03-13-2019 lisinopril 10 mg oral tablet Refills(s) 0 Start Date: 03/13/19 Status: Ordered meloxicam 15 mg oral tablet (9 sources) Nonsteroidal Anti-inflammatory Drug Start: 04-09-2017 meloxicam 15 mg oral tablet Refills(s) 0 Start Date: 03/13/19 Status: Ordered metoprolol tartrate 25 mg oral tablet (15 sources) beta-Adrenergic Beatrice Start: 03-13-2019 take 1 tablet by mouth once daily Lopressor 25 mg oral tablet 25 mg = 1 tab(s), Oral, Daily, Refills(s) 0 Start Date: 03/13/19 Status: Ordered take 1 tablet by lavern th every twelve hours Metoprolol Tartrate 25 MG 1 tablet with food Orally Twice a day Active Multi Vitamin+ (13 sources) Start: 09-26-2022 Multi Vitamin+ Start Date: 09/26/22 Status: Ordered netarsudil 0.2 mg/ml ophthalmic solution (14 sources) Rho Kinase Inhibitor Start: 03-13-2019 Rhopressa 0.02% ophthalmic solution Refill(s) 0 Start Date: 03/13/19 Status: Ordered Start: 03-13-2019 Rhopressa 0.02 % ophthalmic solution Refill(s) 0 Start Date: 03/13/19 Status: Ordered tamsulosin hydrochloride 0.4 mg oral capsule (12 sources) alpha-Adrenergic Beatrice Start: 07-28-2024 take 1 capsule by mouth twice daily tamsulosin 0.4 mg Cap 0.4 mg = 1 cap(s), Oral, BID, # 180 cap(s), Refills(s) 3, Pharmacy: [id number], 158, cm, 06/02/24 11:55:00 EDT, Height/Length Dosing, 96, kg, 06/22/24 16:06:00 EDT, Weight Dosing Start Date: 07/28/24 Status: Ordered Start: 02-11-2024 tamsulosin 0.4 mg Cap 0.4 mg = 1 cap(s), BID, Refills(s) 0 Start Date: 02/11/24 Status: Ordered Start: 03-07-2022 take 1 capsule by [facility] twice daily tamsulosin 0.4 mg Cap 0.4 mg = 1 cap(s), Oral, BID, # 180 cap(s), Refills(s) 3, Pharmacy: [place] [id number] [facility], 160, cm, 10/16/21 14:26:00 EST, Height/Length Dosing, 94.4, kg, 10/16/21 14:26:00 EST, Weight Dosing Start Date: 03/07/22 Status: Ordered 12 hr timolol 5 mg/ml ophthalmic solution (1 source) beta-Adrenergic Beatrice Start: 03-13-2019 timolo l Opth 0.5% Yvette 5 mL Refill(s) 0 Start Date: 03/13/19 Status: Ordered timolol Opth 0.5% Yvette 5 mL (13 sources) Start: 03-13-2019 timolol Opth 0 .5% [...] propionate 0.05 mg/actuat metered dose nasal spray (10 sources) Corticosteroid Start: 03-17-2024 fluticasone Nasal 0.05 mg/inh Leming instill 1 spray into each nostril once [...] disease Onset: 04-17-2024 Bacterial infection; unspecified site (12 sources) Bacteremia; Translations: [Bacteremia] Onset: 07-20-2024 Episodic Biliary tract disease (14 sources) Biliary calculus 03-13-2019 Episodic Calculus of urinary tract (17 sources) Kidney stone; Translations: [Calculus of kidney] Onset: 04-16-2022 Episodic Cancer of colon (14 sources) Carcinoma of colon, stage I 03-13-2019 [...] Onset: 09-20-2022 Chronic Disorders of lipid metabolism (19 sources) Hypercholesterolemia; Translations: [Hyperlipidemia, unspecified] Onset: 09-20-2022 03-13-2019 Chronic Essential hypertension (17 sources) Hypertensive disorder; Translations: [Essential (primary) hypertension] Onset: 09-20-2022 03-13-2019 Chronic Genitourinary symptoms and ill-defined conditions (20 sources) Nocturia; Translations: [Retention of urine] Onset: 09-18-2022 10-16-2021 Episodic Hyperplasia of prostate (20 sources) Benign prostatic hypertrophy with outflow obstruction; Translations: [Benign prostatic hyperplasia with lower urinary tract symptoms] Onset: 04-16-2022 Chronic Hypertension with complications and secondary hypertension (1 source) Hypertensive heart disease with heart failure; Translations: [HTN HEART DISEASE W/HEART FAIL] Onset: 09-28-2022 Chronic Inflammatory conditions of male genital organs (2 sources) Balanitis; Translations: [Balanitis] Onset: 06-22-2024 Chronic Nutritional [...] Long-term current use of drug therapy; Translations: [MCC (current) use of antithrombotics/antip latelets] Onset: 06-22-2024 [...] Episodic Other diseases of bladder and urethra (20 sources) Male urethral stricture; Translations: [Unspecified urethral stricture, male, unspecified site] Onset: 04-16-2022 Episodic Other diseases of bladder and urethra (6 sources) Urethral stricture 06-22-2024 Episodic Other diseases of kidney and ureters (2 sources) Urinary tract obstruction; Translations: [Other obstructive and reflux uropathy] Onset: 04-16-2022 Episodic Other gastrointestinal disorders (14 sources) Scrotal mass 05-18-2019 Episodic Other male genital disorders (14 sources) Disorder of male genital organ 10-16-2021 Episodic Other male genital disorders (14 sources) Spermatocele 11-02-2019 Episodic Other male genital disorders (14 sources) Testicular mass 03-13-2019 Episodic Other male genital disorders (4 sources) Phimosis; Translations: [Phimosis] Onset: 09-03-2024 Episodic Other nervous system disorders (1 source) Chronic pain; Translations: [Other chronic pain] Chronic Other non-traumatic joint disorders (1 source) Hip pain; Translations: [Pain in left hip] Episodic Other nutritional; endocrine; and metabolic disorders (1 source) Obese class II; Translations: [Body mass index (BMI) 36.0-36.9, adult] Onset: 04-16-2022 Chronic Other nutritional; endocrine; and metabolic disorders (14 sources) Body mass index 30+ - obesity 04-16-2022 Chronic Other nutritional; endocrine; and metabolic disorders (1 source) Hypocalcemia; Translations: [Hypocalcemia] Onset: 04-17-2024 Chronic Vanessa-; endo-; and myocarditis; cardiomyopathy (except that caused by tuberculosis or sexually transmitted disease) (14 sources) Pericarditis 03-13-2019 Episodic Residual codes; unclassified (14 sources) Sleep apnea 03-13-2019 Chronic Residual codes; unclassified (1 source) Sleep apnea, unspecified; Translations: [SLEEP APNEA UNSPECIFIED] Onset: 09-20-2022 Chronic Retinal detachments; defects; vascular occlusion; and retinopathy (14 sources) Retinal detachment 03-13-2019 Episodic Spondylosis; intervertebral disc disorders; other back problems (1 source) Low back pain; Translations: [Low back pain] Episodic Unclassified (6 sources) Long-term current use of drug therapy 06-22-2024 Urinary tract infections (17 sources) Urinary tract infectious disease; Translations: [Urinary [...] 09-28-2022 Episodic Other aftercare (1 source) 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; Translations: [OTH [facility] CURRENT DRUG THERAPY] Onset: 09-20-2022 Episodic Other aftercare (1 source) intermediate accountant (current) use of aspirin; Translations: [SHOW OPERATIONS SUPERVISOR CURRENT USE OF ASPIRIN] Onset: 09-20-2022 Episodic Other male genital disorders (14 sources) Hydrocele Resolved: [birth year]1989 03-13-2019 Episodic Other screening for suspected conditions (not mental disorders or infectious disease) (6 sources) Encounter for screening for malignant neoplasm of prostate; Translations: [Culture positive for methicillin resistant Staphylococcus aureus] Onset: 09-28-2022 06-25-2024 Episodic Comment on above: MRSA in urine 024 Residual codes; unclassified (1 source) Acquired absence of other specified parts of digestive tract; Translations: [ACQ ABSENCE OTH PART DIGESTV TRACT] Onset: 09-20-2022 Episodic Unclassified (1 source) Contact with and (suspected) exposure to covid-19 Z20.822 Viral infection (1 source) COVID-19 Results Test Name Value Interpretation Reference Range Facility Urology Office/Clinic Noteon 10-02-2024 Urology Office/Clinic Note Urology Office/Clinic Note Chief Complaint phimosis HPI Staff Pt is here for catheter change and exam of phimosis Hematuria: denies Leaking: pt states he has bladder spasms sometimes Wearing pads/ Depends: wears a brief Abdominal pain: denies Flank pain: denies History of Present Illness Tests reviewed: none. I have reviewed the previous health record information and history for this patient from Di Trotter PA-C I have reviewed and verified the staff [...] See HPI. Physical Exam Vitals & Measurements T: 37 ???C(Temporal Artery) HR: 60(Peripheral) RR: 16 BP: 128/67 HT: 62 in HT: 158 cm WT: 96 kg WT: 211.644 lb BMI: 38.46 General Appearance: alert, no distress, well nourished, well developed male. Penis ~indwelling more. Severe phimosis on exam. Thick, indurated foreskin. Tight band choking penis some. able to retract skin over glans with some effort. Assessment/Plan Last seen by Yuni Trotter PA-C 09/03/24. 1. Phimosis (N47.1: Phimosis) Pt has severe phimosis. Essentially blind insertion of more. Physical exam ~severe phimosis, tight band on distal foreskin. Pt states phimosis is not bothersome. Discussed in most cases we would proceed with a circumcision however we could hold off since pt is unbothered and does not want anymore surgery at this point.. Does create a challenge during catheter exchange. Pt prefers to hold off on circumcision due to going through so much recently . Advised pt to monitor phimosis over time and we will cont to monitor during catheter changes. Pt agrees with plan. -Monitor phimosis over time, consider circ in the near future -Schedule more change in 1 month 2. Urinary retention (R33.9: Retention of urine, unspecified) Since February 2024. (Also had back in 2021) Had cysto 04/07/24 which showed open prostate. Indwelling More catheter. Exchanged in office today. 16Fr coude. No complications. 3. Bacteremia due to methicillin resistant Staphylococcus aureus (R78.81: Bacteremia) [facility] ER 07/05/2024 due to hematuria, possible More catheter obstruction. 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 Patient was discharged and returned via ambulance next morning and was transferred to [facility] at that time. Admitted to [facility] 07/06/2024 - Plavix was discontinued, three-way More placed with CBI. Blood cultures at this time positive for MRSA, thought to be secondary to urine source. 07/20/2024 ID consult w/ Dr Olga Watters at [facility]. See #1 and 2. Follow-up With When Contact Information Reno INTERIANO MD, URL [address] [id number]- Additional Instructions: 4 wk more exchange Patient Education Circumcision Information I, Aleida Sapp, personally scribed for Dr. Interiano on 10/02/2024 11:57:39. . Documentation recorded by the scribe, Aleida Sapp, accurately reflects the services(s) I performed and decisions made by me. Authenticated by Dr. Interiano on 10/02/2024 12:01:17. Problem List/Past Medical History Ongoing Antiplatelet or antithrombotic long-term use Bacteremia due to methicillin resistant Staphylococcus aureus Balanitis BMI 36.0-36.9,adult BPH with urinary obstruction Cholelithiases Elevated cholesterol Gross hematuria History of UTI Hydrocele Hypertension Kidney stone Left retinal detachment MRSA (methicillin resistant staph aureus) culture positive Nocturia Pericarditis Phimosis Scrotal cyst Sleep apnea Spermatocele Testicular mass [...] mg Tab dorzolamide 2% ophthalmic solution, 1 celina (more content not included)... Normal [facility] Comment on above: Result Comment: Elec tronically Signed By: Reno INTERIANO MD\.br\Date and Time Signed: 10/02/24 12:01 EST\.br\Electronically Co-Signed By: Aleida Sapp\Date and Time Co-Signed: 10/02/24 11:57 EST Urology Office/Clinic Noteon 09-28-2024 Urology Office/Clinic Note Urology Office/Clinic Note Chief Complaint Blood in cath, cath change HPI Staff 83 year old male patient presents today for a 4 week cath change and some blood in cath that started today Denies dysuria, denies abdominal/flank pain. Has some irritation cath area. History of Present Illness I have reviewed and verified the staff HPI to be accurate for this encounter. Portions of this record may have been created with voice recognition artificial intelligence software, specifically [employer] ([employer]), [employer] and or [employer]. Substitutions may have occurred due to the inherent limitations of voice recognition and artificial intelligence software. Review of Systems PHQ Score Initial Depression Screen Score: 0 SCORE Physical Exam Vitals & Measurements T: 36.9 ???C(Temporal Artery) HR: 77(Peripheral) RR: 16 BP: 138/76 WT: 96 kg WT: 211.2 lb General: Well developed, well nourished, in no acute distress. Genitourinary: mild phimosis, mod white/clear discharge noted to gland, mod erythema Assessment/Plan PRW pt 1. Balanitis (N48.1: Balanitis) PE today: mild phimosis, mod white/clear discharge noted to gland, mod erythema Discussed dx w/ pt. Will treat w/ antifungal cream. Otherwise, keep area as clean and dry as possible. Seek medical attention immediately if unable to replace foreskin back over glans at any point d/t swelling. Pt verbalized understanding. -Start clotrimazole BID x 2 weeks 2. Gross hematuria (R31.0: Gross hematuria) Hx of, an plavix UCX 06/02/24 - 85 k MRSA started again today, denies sx of UTI at this time Urine pink tinged at this time, does feel it is associated w/ activity to some degree. Increase fluid intake, avoid bladder irritants ER for fever, NV, severe flank pain, No urine flow from cath, urine that is merlot to black in color -cont to monitor 3. Urinary retention (R33.9: Retention of urine, unspecified) Has experienced urinary retention in the past. 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 Episode of retention 03/12/2024 at [facility] ER. Patient opted to keep More catheter until cystoscopic evaluation. s/p cystoscopy 04/07/2024 which showed high-grade trabeculation, open prostatic urethra. Patient was to follow-up 3 months with PVR at that time. 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 Started to have difficulty voiding a day or 2 prior to ER visit. [facility] ER 05/10/2024 with difficulty urinating. There is no note of degree of retention at that time, More placed and treated with Keflex. UCX at that time with Proteus mirabilis. Previously rec'd relearning CIC vs maintaining more given recurrent retention. Pt cont to prefer to maintain more. More exchanged IO today. See adhoc. -RTO 4 week for cath exchange 4. BPH with urinary obstruction (N40.1: Benign [...] Tolerating well without side effects. -Continue tamsulosin 5. Urethral stricture (N35.919: Unspecified urethral stricture, male, unspecified site) s/p cysto/UD 06/15/2021 Cystoscopy 04/07/2024 without evidence of stricture -Continue to monitor 6. Antiplatelet or antithrombotic long-term use (Z79.02: MCC (current) use of antithrombotics/antipl atelets) s/p CVA, on plavix Follow-up With When Contact Information Orzech MAINTENANCE PAINTER APPRENTICE, APPLICATIONS MANAGER-C, Lazara X, FAM, URL Additional Instructions: 4 week cath change Problem List/Past Medical History Ongoing Antiplatelet or antithrombotic long-term use Bacteremia due to methicillin resistant Staphylococcus aureus Balanitis BMI 36.0-36.9,adult BPH with urinary obstruction Cholelithiases Elevated cholesterol Gross hematuria History of UTI Hydrocele Hypertension Kidney stone Left retinal detachment MRSA (methicillin resistant staph aureus) culture positive Nocturia Pericarditis Phimosis Scrotal cyst Sleep apnea Spermatocele Testicular mass [...] 1 drop(s), OPTH, TID fluticasone Nasal 0.05 mg/ (more content not included)... Normal [facility] Comment on above: Result Comment: Elec tronically Signed By: KIM Lino APRN, Lazara Echavarria\.br\Date and Time Signed: 09/28/24 07:09 EST Urology Office/Clinic Noteon 09-03-2024 Urology Office/Clinic Note Urology Office/Clinic Note Chief Complaint cath change HPI Staff 83yr old male pt here for 4wk office visit and cath change. Last cath change 08/06/24. Denies any problems with the catheter. Review of Systems PHQ Score Initial Depression Screen Score: 0 SCORE no fever, chills, malaise, myalgia. no rash/lesions. no abdominal pain, nausea, vomiting. Physical Exam Vitals & Measurements T: 37 ???C(Oral) HR: 58(Peripheral) RR: 18 BP: 133/78 HT: 62 in HT: 158 cm WT: 96 kg WT: 211.644 lb BMI: 38.46 General: nontoxic, NAD Procedure see Ad Hoc documentation Assessment/Plan 1. Urinary retention (R33.9: Retention of urine, unspecified) Since February 2024. (Also had back in 2021) Had cysto 04/07/24 which showed open prostate. Plan is chronic indwelling more. However pt is still taking Flomax. Discussed w pt/ he can stop this. Ordered: Body Mass Index (BMI) documented 3008F Current tobacco non-user 1036F Depression Screening Negative 3352F E&M of Est. Patient Moderate 30-39 Min 51053 Influenza immunization status assessed 1030F Insertion of temp indwelling bladder cath, fractured cath, altered anatomy, complicated 57065 Medication list documented in medical record 1159F Most recent diastolic blood pressure <80 mm Hg 3078F Patient screen for fall risk: no falls in last year or 1 fall with no injury in last year 1101F Review of all meds by a prescribing practitioner or clinical pharmacist documented in EHR 1160F Systolic BP 130-139 mm Hg (Most Recent) 3075F 2. Phimosis (N47.1: Phimosis) Pt has severe phimosis. Basically blind insertion of more (did irrigate easily to ensure placement). Discussed dorsal slit vs circumcision including details of procedure, risks/benefits. Pt and will follow up with PRW at next ov to discuss and schedule surgical intervention. Ordered: E&M of Est. Patient Moderate 30-39 Min 81020 Insertion of temp indwelling bladder cath, fractured cath, altered anatomy, complicated 95486 Follow-up With When Contact Information Dr Interiano 1 month to discuss surgery and change cath Additional Instructions: Patient Education Circumcision Information Problem List/Past Medical History Ongoing Antiplatelet or antithrombotic long-term use Bacteremia due to methicillin resistant Staphylococcus aureus BMI 36.0-36.9,adult BPH with urinary obstruction Cholelithiases Elevated cholesterol Gross hematuria History of UTI Hydrocele Hypertension Kidney stone Left retinal detachment MRSA (methicillin resistant staph aureus) culture positive Nocturia Pericarditis Phimosis Scrotal cyst Sleep apnea Spermatocele Testicular mass [...] drop(s), OPTH, TID fluticasone Nasal 0.05 mg/inh Leming hyoscyamine 0.125 mg sublingual Tab latanoprost ophthalmic 0.005% solution, 1 drop(s), OPTH, Once a day (at bedtime) lisinopril 10 mg oral tablet Lopressor 25 mg oral tablet, 25 mg= 1 tab(s), Oral, Daily Multi Vitamin+ Rhopressa 0.02% ophthalmic solution timolol Opth 0.5% Yvette 5 mL Vascepa 1 g oral capsule Allergies levoFLOXacin (Irritation) Social History Alcohol - Denies Alcohol Use, 03/13/2019 Tobacco - Denies Tobacco Use, 03/13/2019 Never (less than 100 in lifetime) Tobacco Use:. Never Smokeless Tobacco Use:. Household tobacco concerns: No. Yes, 09/03/2024 Family History Heart disease: Mother. Immunizations Vaccine Date Status influenza virus vaccine, inactivated 05/24/2022 Recorded SARSCoV2 mRNA(dglldxauy-lmll-op cros) vac 04/20/2022 Recorded SARS-CoV-2 (COVID-19) mRNA BNT-162b2 vax 06/19/2021 Recorded influenza virus vaccine, inactivated 06/01/2021 Recorded influenza virus vaccine, inactivated 05/23/2021 Recorded SARS-CoV-2 (COVID-19) mRNA BNT-162b2 vax 11/10/2020 Recorded SARS-CoV-2 (COVID-19) mRNA BNT-162b2 vax 10/20/2020 Recorded zoster vaccine, inactivated 08/04/2020 Recorded SARS-CoV-2 (COVID-19) Ad26 vaccine 07/06/2020 Recorded influenza virus vaccine, inactivated 06/24/2020 Recorded zoster vaccine, inactivated 06/03/2020 Recorded SARS-CoV-2 (COVID-19) Ad26 vaccine 06/02/2020 Recorded influenza virus vaccine, inactivated 05/26/2020 Recorded influenza virus vaccine, inactivated 05/29/2019 Recorded influenza virus vaccine, inactivated 06/17/2018 Recorded pneumococcal 23-valent vaccine 05/14/2017 Recorded influenza virus vaccine, inactivate (more content not included)... Normal [facility] Comment on above: Result Comment: Elec tronically Signed By: DI TROTTER PA-C\.br\Date and Time Signed: 09/03/24 14:00 EST Telephoneon 08-05-2024 Telephone [id number] Kyler Richard 1940 M Date Provider Department Center 08/05/2024 [facility] Cha[place]cey Heal No family history on file Normal [facility] Orders Onlyon 08-04-2024 Orders Only [id number] Kyler Richard 1940 M Date Provider Department Center 08/04/2024 111-OGLA WATTER[facility] C INF Chauncey Heal No family history on file Normal [facility] CBCon 08-03-2024 Erythrocyte distribution width (RBC) [Ratio] 13.9 % Normal 11.5-15.0 [facility] Comment on above: Performed By: #### L [id number] #### [facility] ([facility]) [address] [place] [address] ERYTHROCYTE MEAN CORPUSCULAR HEMOGLOBIN CONCENTRATION (G/DL) BY AUTOMATED 33.3 g/dL Normal 32.0-35.0 [facility] Comment on above: Performed By: #### L [id number] #### [facility] ([facility]) [address] [place] [address] Hematocrit (Bld) [Volume fraction] 36.0 % Low 39.0-55.0 [facility] Comment on above: Performed By: #### L [id number] #### [facility] ([facility]) [address] [place] [address] Hemoglobin (Bld) [Mass/Vol] 12.0 g/dL Low 13.0-17.0 [facility] Comment on above: Performed By: #### L [id number] #### [facility] ([facility]) [address] [place] [address] MCH (RBC) [Entitic mass] 30.8 pg Normal 27.0-33.0 [facility] Comment on above: Performed By: #### L [id number] #### [facility] ([facility]) [address] [place] [address] MCV (RBC) [Entitic vol] 92.3 fL Normal 82.0-98.0 [facility] Comment on above: Performed By: #### L [id number] #### [facility] ([facility]) [address] [place] [address] PLATELETS (10*3/UL) IN BLOOD AUTOMATED COUNT 115 10*3/uL Low 150-400 [facility] Comment on above: Performed By: #### L [id number] #### [facility] ([facility]) [address] [place] [address] RBC (Bld) [#/Vol] 3.90 10*6/uL Low 4.20-5.70 [facility] Comment on above: Performed By: #### L [id number] #### [facility] ([facility]) [address] [place] [address] WBC (Bld) [#/Vol] 3.68 10*3/uL Low 4.00-10.60 [facility] Comment on above: Performed By: #### L [id number] #### [facility] ([facility]) [address] [place] [address] Follow-Upon 08-03-2024 Follow-Up [id number] Kyler Richard 1940 M Date Provider Department Center 08/03[facility] Chauncey Heal No family history on file Level of Service:54905 IN OFFICE/OUTPATIENT ESTABLISHED LOW MDM 20 MIN Normal [facility] Telephoneon 07-27-2024 Telephone [id number] Kyler Richard 1940 M Date Provider Department Center 07/27/2024 [facility] Chauncey Heal No family history on file Normal [facility] Urology Office/Clinic Noteon 07-21-2024 Urology Office/Clinic Note Urology Office/Clinic Note History of Present Illness I have reviewed and verified the staff HPI to be accurate for this encounter. Portions of this record may have been created with voice recognition artificial intelligence software, specifically [employer] and or [employer]. Substitutions may have occurred due to the inherent limitations of voice recognition and artificial intelligence software. Physical Exam General: Well developed, well nourished, in no acute distress. Pt Assessment/Plan PRW pt 1. Bacteremia due to methicillin resistant Staphylococcus aureus (R78.81: Bacteremia) [facility] ER 07/05/2024 due to hematuria, possible More catheter obstruction. 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 Patient was discharged and returned via ambulance next morning and was transferred to [facility] at that time. Admitted to [facility] 07/06/2024 -Plavix was discontinued, three-way More placed with CBI. Blood cultures at this time positive for MRSA, thought to be secondary to urine source. 07/20/2024 ID consult w/ Dr Olga Watters at [facility] -extend linezolid for 1 additional week to [...] urine, unspecified) last cath change 07/07/24 at [facility] Pt due for cath change the week [...] drop(s), OPTH, TID fluticasone Nasal 0.05 mg/inh Leming hyoscyamine 0.125 mg sublingual Tab latanoprost ophthalmic [...] influenza virus vaccine, inactivated 05/24/2022 Recorded SARSCoV2 mRNA(ytzfrsyir-mnof-zb cros) vac 04/20/2022 Recorded SARS-CoV-2 (COVID-19) mRNA BNT-162b2 vax 06/19/2021 Recorded influenza virus vaccine, inactivated 06/01/2021 Recorded influenza virus vaccine, inactivated 05/23/2021 Recorded SARS-CoV-2 (COVID-19) mRNA BNT-162b2 vax 11/10/2020 Recorded SARS-CoV-2 (COVID-19) mRNA BNT-162b2 vax 10/20/2020 Recorded zoster vaccine, inactivated 08/04/2020 Recorded SARS-CoV-2 (COVID-19) Ad26 vaccine 07/06/2020 Recorded influenza virus vaccine (more content not included)... Normal [facility] Comment on above: Result Comment: Elec tronically Signed By: Orzech MAINTENANCE PAINTER APPRENTICE, APPLICATIONS MANAGER-C, Lazara X\.br\Date and Time Signed: 07/21/24 12:21 EST CBC WITH AUTO DIFFERENTIALon 07-20-2024 Basophils (Bld) [#/Vol] 0.04 10*3/uL Normal 0.00-0.20 [facility] Comment on above: Performed By: #### L [id number] #### [facility] ([facility]) [address] [facility] [place] [address] Basophils/100 WBC (Bld) 0.6 % Normal 0.0-1.0 [facility] Comment on above: Performed By: #### L [id number] #### [facility] ([facility]) [address] [place] [address] Eosinophils (Bld) [#/Vol] 0.31 10*3/uL Normal 0.00-0.50 [facility] Comment on above: Performed By: #### L [id number] #### [facility] ([facility]) [address] [place] [address] Eosinophils/100 WBC (Bld) 4.7 % Normal 0.0-6.0 [facility] Comment on above: Performed By: #### L [id number] #### [facility] ([facility]) [address] [place] [address] Erythrocyte distribution width (RBC) [Ratio] 13.5 % Normal 11.5-15.0 [facility] Comment on above: Performed By: #### L [id number] #### [facility] ([facility]) [address] [place] [address] ERYTHROCYTE MEAN CORPUSCULAR HEMOGLOBIN CONCENTRATION (G/DL) BY AUTOMATED 33.0 g/dL Normal 32.0-35.0 [facility] Comment on above: Performed By: #### L [id number] #### [facility] ([facility]) [address] [place] [address] Hematocrit (Bld) [Volume fraction] 40.3 % Normal 39.0-55.0 [facility] Comment on above: Performed By: #### L [id number] #### [facility] ([facility]) [address] [place] [address] Hemoglobin (Bld) [Mass/Vol] 13.3 g/dL Normal 13.0-17.0 [facility] Comment on above: Performed By: #### L [id number] #### [facility] ([facility]) [address] [place] [address] Immature granulocytes (Bld) [#/Vol] 0.03 10*3/uL Normal 0.00-0.20 [facility] Comment on above: Performed By: #### L [id number] #### [facility] ([facility]) [address] [place] [address] Immature granulocytes/100 WBC (Bld) 0.5 % Normal 0.0-1.0 [facility] Comment on above: Performed By: #### L [id number] #### [facility] ([facility]) [address] [place] [address] Lymphocytes (Bld) [#/Vol] 2.23 10*3/uL Normal 1.20-4.00 [facility] Comment on above: Performed By: #### L [id number] #### [facility] ([facility]) [address] [place] [address] Lymphocytes/100 WBC (Bld) 34.0 % Normal 20.0-45.0 [facility] Comment on above: Performed By: #### L [id number] #### [facility] ([facility]) [address] [place] [address] MCH (RBC) [Entitic mass] 31.0 pg Normal 27.0-33.0 [facility] Comment on above: Performed By: #### L [id number] #### [facility] ([facility]) [address] [place] [address] MCV (RBC) [Entitic vol] 93.9 fL Normal 82.0-98.0 [facility] Comment on above: Performed By: #### L [id number] #### [facility] ([facility]) [address] [place] [address] Monocytes (Bld) [#/Vol] 0.42 10*3/uL Normal 0.10-1.00 [facility] Comment on above: Performed By: #### L [id number] #### [facility] ([facility]) [address] [place] [address] Monocytes/100 WBC (Bld) 6.4 % Normal 5.0-12.0 [facility] Comment on above: Performed By: #### L [id number] #### [facility] ([facility]) [address] [place] [address] Neutrophils (Bld) [#/Vol] 3.53 10*3/uL Normal 1.60-7.60 [facility] Comment on above: Performed By: #### L [id number] #### [facility] ([facility]) [address] [place] [address] Neutrophils/100 WBC (Bld) 53.8 % Normal 40.0-72.0 [facility] Comment on above: Performed By: #### L [id number] #### [facility] ([facility]) [address] [place] [address] NRBC (PER 100 WBCS) BY AUTOMATED COUNT 0.0 % Normal 0 [facility] Comment on above: Performed By: #### L [id number] #### [facility] ([facility]) [address] [place] [address] PLATELETS (10*3/UL) IN BLOOD AUTOMATED COUNT 255 10*3/uL Normal 150-400 [facility] Comment on above: Performed By: #### L [id number] #### [facility] ([facility]) [address] [place] [address] RBC (Bld) [#/Vol] 4.29 10*6/uL Normal 4.20-5.70 [facility] Comment on above: Performed By: #### L [id number] #### [facility] ([facility]) [address] [place] [address] WBC (Bld) [#/Vol] 6.56 10*3/uL Normal 4.00-10.60 [facility] Comment on above: Performed By: #### L [id number] #### [facility] ([facility]) [address] [place] [address] Follow-Upon 07-20-2024 Follow-Up [id number] Kyler Richard 1940 M Date Provider Department Center 07/20/2024 111-[facility] Chauncey Heal No family history on file Level of Service:24038 IN OFFICE/OUTPATIENT ESTABLISHED LOW MDM 20 MIN Normal [facility] Labon 07-20-2024 Lab [id number] Vesna Richardn 1940 M Date Provider Department [place] 07/20/2024 2244-[facility] MP LAB RESOURCE MP DRAW Medical Pavi No family history on file Normal [facility] 36on 07-17-2024 36 Left voice message f or patient to contact us. Provider would like patient to get a cbc prior to visit on Saturday07/18/2024. Left voice mail x 2. Contacted [facility] patient [facility] & they will draw CBC before appt. On Saturday per Provider. Order faxed & confirmation received. Normal [facility] BASIC METABOLIC PANELon 06-26 Anion gap [Moles/Vol] 9 mmol/L Normal 7-20 [facility] Comment on above: Performed By: #### L [id number] #### [facility] ([facility]) [address] [place] [address] Calcium [Mass/Vol] 7.8 mg/dL Low 8.6-10.3 [facility] Comment on above: Performed By: #### L [id number] #### [facility] ([facility]) [address] [place] [address] Chloride [Moles/Vol] 106 mmol/L Normal 98-107 [facility] Comment on above: Performed By: #### L [id number] #### [facility] ([facility]) [address] [place] [address] CO2 [Moles/Vol] 25 mmol/L Normal 21-31 [facility] Comment on above: Performed By: #### L [id number] #### [facility] ([facility]) [address] [place] [address] Creatinine [Mass/Vol] 0.65 mg/dL Low 0.70-1.30 [facility] Comment on above: Performed By: #### L [id number] #### [facility] ([facility]) [address] [place] [place] [address] GLOMERULAR FILTRATION RATE ML/MIN/1.73 SQ M.PREDICTED 94.7 mL/min/1.73m*2 Normal >60.0 [facility] Comment on above: Result Comment: The [facility]???s estimated glomerular filtration rate (eGFR) will no [...] group of individuals. Performed By: #### L [id number] #### [facility] ([facility]) [address] [place] [address] Glucose [Mass/Vol] 116 mg/dL High 70-100 [facility] Comment on above: Performed By: #### L [id number] #### [facility] ([facility]) [address] [place] [address] Potassium [Moles/Vol] 3.2 mmol/L Low 3.5-5.1 [facility] Comment on above: Performed By: #### L [id number] #### [facility] ([facility]) [address] [place] [address] Sodium [Moles/Vol] 137 mmol/L Normal 136-145 [facility] Comment on above: Performed By: #### L [id number] #### [facility] ([facility]) [address] [place] [address] Urea nitrogen [Mass/Vol] 21 mg/dL Normal 7-25 [facility] Comment on above: Performed By: #### L [id number] #### [facility] ([facility]) [address] [place] [address] UREA NITROGEN/CREATININE (MASS RATIO) IN SER/PLAS 32.3 Normal [facility] Comment on above: Performed By: #### L [id number] #### [facility] ([facility]) [address] [place] [address] CBCon 07-13-2024 Erythrocyte distribution width (RBC) [Ratio] 13.7 % Normal 11.5-15.0 [facility] Comment on above: Performed By: #### L [id number] #### [facility] ([facility]) [address] [place] [address] ERYTHROCYTE MEAN CORPUSCULAR HEMOGLOBIN CONCENTRATION (G/DL) BY AUTOMATED 34.3 g/dL Normal 32.0-35.0 [facility] Comment on above: Performed By: #### L [id number] #### [facility] ([facility]) [address] [place] [address] Hematocrit (Bld) [Volume fraction] 35.6 % Low 39.0-55.0 [facility] Comment on above: Performed By: #### L [id number] #### [facility] ([facility]) [address] [place] [address] Hemoglobin (Bld) [Mass/Vol] 12.2 g/dL Low 13.0-17.0 [facility] Comment on above: Performed By: #### L [id number] #### [facility] ([facility]) [address] [place] [address] MCH (RBC) [Entitic mass] 31.4 pg Normal 27.0-33.0 [facility] Comment on above: Performed By: #### L [id number] #### [facility] ([facility]) [address] [place] [address] MCV (RBC) [Entitic vol] 91.5 fL Normal 82.0-98.0 [facility] Comment on above: Performed By: #### L [id number] #### [facility] ([facility]) [address] [place] [address] PLATELETS (10*3/UL) IN BLOOD AUTOMATED COUNT 193 10*3/uL Normal 150-400 [facility] Comment on above: Performed By: #### L [id number] #### [facility] ([facility]) [address] [place] [address] RBC (Bld) [#/Vol] 3.89 10*6/uL Low 4.20-5.70 [facility] Comment on above: Performed By: #### L [id number] #### [facility] ([facility]) [address] [place] [address] WBC (Bld) [#/Vol] 5.59 10*3/uL Normal 4.00-10.60 [facility] Comment on above: Performed By: #### L [id number] #### [facility] ([facility]) [address] [place] [address] CONSULTon 07-13-2024 CONSULT Discharge Update Plannin:42pm SW spoke with patient face to face this morning. Patient has consult for [facility]. Patient is currently active with [facility], return referral sent and they are accepting. No further OTM needs discovered at this time. Normal [facility] NURSNOTEon 07-13-2024 NURSNOTE Discharge instructio ns [...] to the front lobby for discharge. Normal [facility] ALBERTINA Per ID pt will be discharged on oral antibiotics no need to place PICC at this time, RN aware [facility] AVINOTE PICC team saw order for PICC line, PICC team reached out to ID department making sure final recommendations were complete on discharge IV medication, once PICC team aware of plan then PICC line can be placed [facility] 30on 07-12-2024 30 Problem: Pain - [...] pain reassessments, pain medication administration as ordered. [facility] 30 Daily Case Managemen t Update Multidisciplinary rounds have been completed. Barriers to Discharge: Needs 4 weeks of IV vanco. Midline being placed today. Need final ID script and referral to bioscripts. Patient discharge ready tomorrow. Plan is home with [facility]. Diet: Dietary Orders (From admission, onward) Start Ordered 07/11/24 112 Special Kitchen Request Once Comments: Patient would [...] OT Six Click Score: 17 PT Recommendations: detention facility placement (wants to go home and would benefit from home PT with assist if he chooses to go that route) OT Recommendations: Home OT (w/ assist) Is expected discharge disposition appropriate for patient?: Yes New Consults: Ancillary Consults (From admission, onward) Start Ordered 07/10/241928 Inpatient consult to Wound/Ostomy Nurse Once Comments: Consult Wound Nurse for at-risk for PU, stage 1, or stage 2. For all stage 3 ulcers, stage 4, unstageable, DTI, infected PU, and lower extremity ulcers use the Inpatient consult to Vascular Wound Care Provider: (Not yet assigned) Question Answer Comment Consult for: Wound Reason for Consult? pressure injury on foreskin of penis 07/10/241928 Therapy Orders (From admission, onward) Start Ordered 07/06/24 1250 PT eval and treat Until therapy completed Question: Reason for PT? Answer: debility 07/06/24 1250 07/06/24 1250 OT eval and treat Until therapy completed Question: Reason for OT? Answer: debility 07/06/24 1250 Normal [facility] VANCOMYCIN, TROUGHon 024 VANCOMYCIN (UG/ML) IN SER/PLAS - TROUGH 6.3 ug/mL Normal 5.0-20.0 [facility] Comment on above: Order Comment: Sulema torres draw before 1700 vancomycin dose Performed By: #### L [id number] #### [facility] ([facility]) [address] [place] [address] 30on 07-11-2024 30 The patient is Moderately [...] maintained or improved Outcome: Not Progressing Normal [facility] BASIC METABOLIC PANELon 11- Anion gap [Moles/Vol] 11 mmol/L Normal 7-20 [facility] Comment on above: Performed By: #### L [id number] #### [facility] ([facility]) [address] [place] [address] Calcium [Mass/Vol] 7.8 mg/dL Low 8.6-10.3 [facility] Comment on above: Performed By: #### L [id number] #### [facility] ([facility]) [address] [place] [address] Chloride [Moles/Vol] 107 mmol/L Normal 98-107 [facility] Comment on above: Performed By: #### L [id number] #### [facility] ([facility]) [address] [place] [address] CO2 [Moles/Vol] 22 mmol/L Normal 21-31 [facility] Comment on above: Performed By: #### L [id number] #### [facility] ([facility]) [address] [place] [address] Creatinine [Mass/Vol] 0.65 mg/dL Low 0.70-1.30 [facility] Comment on above: Performed By: #### L [id number] #### [facility] ([facility]) [address] [place] [address] GLOMERULAR FILTRATION RATE ML/MIN/1.73 SQ M.PREDICTED 94.7 mL/min/1.73m*2 Normal >60.0 [facility] Comment on above: Result Comment: The [facility]???s estimated glomerular filtration rate (eGFR) will no [...] individuals. Performed By: #### L [id number] #### [facility] ([facility]) [address] [place] [address] Glucose [Mass/Vol] 124 mg/dL High 70-100 [facility] Comment on above: Performed By: #### L [id number] #### [facility] ([facility]) [address] [place] [address] Potassium [Moles/Vol] 3.7 mmol/L Normal 3.5-5.1 [facility] Comment on above: Performed By: #### L [id number] #### [facility] ([facility]) [address] [place] [address] Sodium [Moles/Vol] 136 mmol/L Normal 136-145 [facility] Comment on above: Performed By: #### L [id number] #### [facility] ([facility]) [address] [place] [address] Urea nitrogen [Mass/Vol] 19 mg/dL Normal 7-25 [facility] Comment on above: Performed By: #### L [id number] #### [facility] ([facility]) [address] [place] [address] UREA NITROGEN/CREATININE (MASS RATIO) IN SER/PLAS 29.2 Normal [facility] Comment on above: Performed By: #### L [id number] #### [facility] ([facility]) [address] [place] [address] BLOOD CULTUREon 07-11-2024 Bacteria identified Cx Nom (Bld) No growth at 5 days Normal [facility] Comment on above: Performed By: #### L [id number] ####[facility] ([facility])[address] [place] [address] C-REACTIVE PROTEINon 024 C REACTIVE PROTEIN (MG/L) IN SER/PLAS 185.4 mg/L High <=5.0 [facility] Comment on above: Result Comment: Test ing performed using a new methodology, turbidimetry. Normal ranges have been updated. Old normal range was <8 mg/L. Performed By: #### L [id number] #### [facility] ([facility]) [address] [place] [address] CKon 07-11-2024 CREATINE KINASE (U/L) IN SER/PLAS 21.0 U/L Low 30.0-223.0 [facility] Comment on above: Performed By: #### L [id number] #### [facility] ([facility]) [address] [address] CONSULTon 07-11-2024 CONSULT -- Attestation signed by [...] did undergo a lumbar nerve ablation in [place]. He cannot recall who did the procedure [...] Ferrari MD, PGY-1 Orthopaedic Surgery Resident Normal [facility] SEDIMENTATION RATEon 024 SEDIMENTATION RATE, ERYTHROCYTE 94 mm/hr High <20 [facility] Comment on above: Performed By: #### L [id number] #### [facility] ([facility]) [address] [place] [address] 30on 07-10-2024 30 The patient is Moderately [...] maintained or improved Outcome: Not Progressing Normal [facility] 30 Daily Case Managemen t Update Multidisciplinary rounds have been completed. Barriers to Discharge: 07/10 Hematuria, MRSA positive Ucx, await sensitivites. Continue IV vanco. More(maintain on discharge). Family declines SNF, plan to return home with [facility]. Diet: Dietary Orders (From admission, onward) Start Ordered 07/06/24 1347 Regular Diet Heart Healthy/HTN, CABG,Stroke, (2gNA, low fat, low cholesterol) Diet effective now Question Answer Comment Room Service? Yes Fat restriction: Heart Healthy/HTN, CABG,Stroke, (2gNA, low fat, low cholesterol) 07/06/24 1347 Physician Expected Discharge Date: 07/08/2024 Discharge Delays: PT Six Click Score: 16 OT Six Click Score: 17 PT Recommendations: detention facility placement (Pt likely to refuse placement. [...] for OT? Answer: debility 07/06/24 1250 Normal [facility] BASIC METABOLIC PANELon 06-26 Anion gap [Moles/Vol] 8 mmol/L Normal 7-20 [facility] Comment on above: Performed By: #### L [id number] #### [facility] ([facility]) [address] [place] [address] Calcium [Mass/Vol] 7.9 mg/dL Low 8.6-10.3 [facility] Comment on above: Performed By: #### L [id number] #### [facility] ([facility]) [address] [place] [address] Chloride [Moles/Vol] 104 mmol/L Normal 98-107 [facility] Comment on above: Performed By: #### L [id number] #### [facility] ([facility]) [address] [place] [address] CO2 [Moles/Vol] 25 mmol/L Normal 21-31 [facility] Comment on above: Performed By: #### L [id number] #### [facility] ([facility]) [address] [place] [address] Creatinine [Mass/Vol] 0.73 mg/dL Normal 0.70-1.30 [facility] Comment on above: Performed By: #### L [id number] #### [facility] ([facility]) [address] [place] [address] GLOMERULAR FILTRATION RATE ML/MIN/1.73 SQ M.PREDICTED 91.4 mL/min/1.73m*2 Normal >60.0 [facility] Comment on above: Result Comment: The [facility]???s estimated glomerular filtration rate (eGFR) will no [...] individuals. Performed By: #### L [id number] #### [facility] ([facility]) [address] [place] [address] Glucose [Mass/Vol] 109 mg/dL High 70-100 [facility] Comment on above: Performed By: #### L [id number] #### [facility] ([facility]) [address] [place] [address] Potassium [Moles/Vol] 3.2 mmol/L Low 3.5-5.1 [facility] Comment on above: Performed By: #### L [id number] #### [facility] ([facility]) [address] [place] [address] Sodium [Moles/Vol] 134 mmol/L Low 136-145 [facility] Comment on above: Performed By: #### L [id number] #### [facility] ([facility]) [address] [place] [address] Urea nitrogen [Mass/Vol] 20 mg/dL Normal 7-25 [facility] Comment on above: Performed By: #### L [id number] #### [facility] ([facility]) [address] [place] [address] UREA NITROGEN/CREATININE (MASS RATIO) IN SER/PLAS 27.4 Normal [facility] Comment on above: Performed By: #### L [id number] #### [facility] ([facility]) [address] [place] [address] BLOOD CULTUREon 07-10-2024 Bacteria identified Cx Nom (Bld) No growth at 5 days Normal [facility] Comment on above: Performed By: #### L [id number] ####[facility] ([facility])[address] [place] [address] Bacteria identified Cx Nom (Bld) STAPHYLOCOCCUS AUREUS METHICILLIN (OXACILLIN) RESISTANT Critically abnormal [facility] Comment on above: Result Comment: Meth icillin-Resistant Staphylococcus aureus For Susceptibility Results Please Refer to Performed By: #### L [id number] ####[facility] ([facility])[address] [place] [address] GRAM STAIN RESULT Positive Abnormal [facility] Comment on above: Performed By: #### L [id number] ####[facility] ([facility])[address] [place] [address] CBC WITH AUTO DIFFERENTIALon 07-10-2024 Basophils (Bld) [#/Vol] 0.03 10*3/uL Normal 0.00-0.20 [facility] Comment on above: Performed By: #### L [id number] #### [facility] ([facility]) [address] [place] [address] Basophils/100 WBC (Bld) 0.5 % Normal 0.0-1.0 [facility] Comment on above: Performed By: #### L [id number] #### [facility] ([facility]) [address] [place] [address] Eosinophils (Bld) [#/Vol] 0.06 10*3/uL Normal 0.00-0.50 [facility] Comment on above: Performed By: #### L [id number] #### [facility] ([facility]) [address] [place] [address] Eosinophils/100 WBC (Bld) 1.0 % Normal 0.0-6.0 [facility] Comment on above: Performed By: #### L [id number] #### [facility] ([facility] [address] [place] [address] Erythrocyte distribution width (RBC) [Ratio] 13.4 % Normal 11.5-15.0 [facility] Comment on above: Performed By: #### L [id number] #### [facility] ([facility]) [address] [place] [address] ERYTHROCYTE MEAN CORPUSCULAR HEMOGLOBIN CONCENTRATION (G/DL) BY AUTOMATED 34.0 g/dL Normal 32.0-35.0 [facility] Comment on above: Performed By: #### L [id number] #### [facility] ([facility]) [address] [place] [address] Hematocrit (Bld) [Volume fraction] 35.9 % Low 39.0-55.0 [facility] Comment on above: Performed By: #### L [id number] #### [facility] ([facility]) [address] [place] [address] Hemoglobin (Bld) [Mass/Vol] 12.2 g/dL Low 13.0-17.0 [facility] Comment on above: Performed By: #### L [id number] #### [facility] ([facility]) [address] [place] [address] Immature granulocytes (Bld) [#/Vol] 0.03 10*3/uL Normal 0.00-0.20 [facility] Comment on above: Performed By: #### L [id number] #### [facility] ([facility]) [address] [place] [address] Immature granulocytes/100 WBC (Bld) 0.5 % Normal 0.0-1.0 [facility] Comment on above: Performed By: #### L [id number] #### [facility] ([facility]) [address] [place] [address] Lymphocytes (Bld) [#/Vol] 0.80 10*3/uL Low 1.20-4.00 [facility] Comment on above: Performed By: #### L [id number] #### [facility] ([facility] [address] [place] [address] Lymphocytes/100 WBC (Bld) 12.9 % Low 20.0-45.0 [facility] Comment on above: Performed By: #### L [id number] #### [facility] ([facility]) [address] [place] [address] MCH (RBC) [Entitic mass] 30.9 pg Normal 27.0-33.0 [facility] Comment on above: Performed By: #### L [id number] #### [facility] ([facility] [address] [place] [address] MCV (RBC) [Entitic vol] 90.9 fL Normal 82.0-98.0 [facility] Comment on above: Performed By: #### L [id number] #### [facility] ([facility]) [address] [place] [address] Monocytes (Bld) [#/Vol] 0.58 10*3/uL Normal 0.10-1.00 [facility] Comment on above: Performed By: #### L [id number] #### [facility] ([facility] [address] [place] [address] Monocytes/100 WBC (Bld) 9.3 % Normal 5.0-12.0 [facility] Comment on above: Performed By: #### L [id number] #### [facility] ([facility]) [address] [place] [address] Neutrophils (Bld) [#/Vol] 4.71 10*3/uL Normal 1.60-7.60 [facility] Comment on above: Performed By: #### L [id number] #### [facility] ([facility]) [address] [place] [address] Neutrophils/100 WBC (Bld) 75.8 % High 40.0-72.0 [facility] Comment on above: Performed By: #### L [id number] #### [facility] ([facility]) [address] [place] [address] NRBC (PER 100 WBCS) BY AUTOMATED COUNT 0.0 % Normal 0 [facility] Comment on above: Performed By: #### L [id number] #### [facility] ([facility]) [address] [place] [address] PLATELETS (10*3/UL) IN BLOOD AUTOMATED COUNT 147 10*3/uL Low 150-400 [facility] Comment on above: Performed By: #### L [id number] #### [facility] ([facility]) [address] [place] [address] RBC (Bld) [#/Vol] 3.95 10*6/uL Low 4.20-5.70 [facility] Comment on above: Performed By: #### L [id number] #### [facility] ([facility]) [address] [place] [address] WBC (Bld) [#/Vol] 6.21 10*3/uL Normal 4.00-10.60 [facility] Comment on above: Performed By: #### L [id number] #### [facility] ([facility]) [address] [place] [address] MR CERVICAL SPINE W AND WO C [...] signed: Jarvis Barth. 8 Invalid Interpretation Code [facility] MR LUMBAR SPINE W AND WO CON [...] signed: Jarvis Barth. 8 Invalid Interpretation Code [facility] 30on 07-09-2024 30 The patient is Moderately [...] and maintained or improved Outcome: Progressing Normal [facility] 30 The patient is Moderately Stable - Low risk of patient condition declining or worsening The patient's goals for the shift include dc The clinical goals for the shift include comfort Normal [facility] CONSULTon 07-09-2024 CONSULT -- Attestation signed by [...] all [employer] (more content not included)... [facility] NURSNOTEon 07-09-2024 NURSNOTE Patient sleeping in bed. No needs identified. Critical value of MRSA+ urine. Physician notified via [employer] chat. Isolation precautions being implemented. Will continue to monitor. [facility] 30on 07-08-2024 30 Daily Case Managemen t Update Multidisciplinary rounds have been completed. Barriers to Discharge: Await Cultures/Infx work-up, On Vanco IV, More(needs to maintain on discharge) Dc Plan : PT=SNF, OT=[facility], await pt's final decision : SNF placement (precert needed) vs Home with & continue [facility] OBV status : Medicare Outpatient Observation Notice [...] OT Six Click Score: 17 PT Recommendations: detention facility placement (Pt likely to refuse placement. [...] for OT? Answer: debility 07/06/24 1250 Normal [facility] 30 The patient is Moderately Stable - [...] and maintained or improved Outcome: Progressing Normal [facility] BASIC METABOLIC PANELon 11 Anion gap [Moles/Vol] 9 mmol/L Normal 7-20 [facility] Comment on above: Performed By: #### L [id number] #### [facility] ([facility]) [address] [place] [address] Calcium [Mass/Vol] 8.4 mg/dL Low 8.6-10.3 [facility] Comment on above: Performed By: #### L [id number] #### [facility] ([facility]) [address] [place] [address] Chloride [Moles/Vol] 106 mmol/L Normal 98-107 [facility] Comment on above: Performed By: #### L [id number] #### [facility] ([facility]) [address] [place] [address] CO2 [Moles/Vol] 25 mmol/L Normal 21-31 [facility] Comment on above: Performed By: #### L [id number] #### [facility] ([facility]) [address] [place] [address] Creatinine [Mass/Vol] 0.67 mg/dL Low 0.70-1.30 [facility] Comment on above: Performed By: #### L [id number] #### [facility] ([facility]) [address] [place] [address] GLOMERULAR FILTRATION RATE ML/MIN/1.73 SQ M.PREDICTED 93.8 mL/min/1.73m*2 Normal >60.0 [facility] Comment on above: Result Comment: The [facility]???s estimated glomerular filtration rate (eGFR) will no [...] group of individuals. Performed By: #### L [id number] #### [facility] ([facility]) [address] [place] [address] Glucose [Mass/Vol] 118 mg/dL High 70-100 [facility] Comment on above: Performed By: #### L [id number] #### [facility] ([facility]) [address] [place] [address] Potassium [Moles/Vol] 3.6 mmol/L Normal 3.5-5.1 [facility] Comment on above: Performed By: #### L [id number] #### [facility] ([facility]) [address] [place] [address] Sodium [Moles/Vol] 136 mmol/L Normal 136-145 [facility] Comment on above: Performed By: #### L [id number] #### [facility] ([facility]) [address] [place] [address] Urea nitrogen [Mass/Vol] 20 mg/dL Normal 7-25 [facility] Comment on above: Performed By: #### L [id number] #### [facility] ([facility]) [address] [place] [address] UREA NITROGEN/CREATININE (MASS RATIO) IN SER/PLAS 29.9 Normal [facility] Comment on above: Performed By: #### L [id number] #### [facility] ([facility]) [address] [place] [address] BLOOD CULTUREon 07-08-2024 Bacteria identified Cx Nom (Bld) STAPHYLOCOCCUS AUREUS METHICILLIN (OXACILLIN) RESISTANT Critically abnormal [facility] Comment on above: Order Comment: From a different site than #1. Result Comment: Meth icillin-Resistant Staphylococcus aureus For Susceptibility Results Please Refer to Performed By: #### L [id number] ####[facility] ([facility])[address] [place] [address] Clindamycin [Susc] >[address] [facility] Comment on above: Performed By: #### L [id number] ####[facility] ([facility])[address] [place] [address] DAPTOmycin [Susc] <=[address] [facility] Comment on above: Performed By: #### L [id number] ####[facility] ([facility])[address] [place] [address] GRAM STAIN RESULT Positive Abnormal [facility] Comment on above: Order Comment: From a different site than #1. Performed By: #### L [id number] ####[facility] ([facility])[address] [place] [address] Linezolid [Susc] <=1 Susceptible [facility] Comment on above: Performed By: #### L [id number] ####[facility] ([facility])[address] [place] [address] Oxacillin [Susc] >2 Resistant [facility] Comment on above: Performed By: #### L [id number] ####[facility] ([facility])[address] [place] [address] Tetracycline [Susc] >8 Resistant [facility] Comment on above: Performed By: #### L [id number] ####[facility] ([facility])[address] [place] [address] Trimethoprim+Sulfam ethoxazole [Susc] <=0.5/9.5 Susceptible [facility] Comment on above: Performed By: #### L [id number] ####[facility] ([facility])[address] [place] [address] Vancomycin [Susc] <=0.[address] [facility] Comment on above: Performed By: #### L [id number] ####[facility] ([facility])[address] [place] [address] CBC WITH AUTO DIFFERENTIALon 07-08-2024 Basophils (Bld) [#/Vol] 0.03 10*3/uL Normal 0.00-0.20 [facility] Comment on above: Performed By: #### L [id number] #### [facility] ([facility]) [address] [place] [address] Basophils/100 WBC (Bld) 0.2 % Normal 0.0-1.0 [facility] Comment on above: Performed By: #### L [id number] #### [facility] ([facility]) [address] [place] [address] Eosinophils (Bld) [#/Vol] 0.07 10*3/uL Normal 0.00-0.50 [facility] Comment on above: Performed By: #### L [id number] #### [facility] ([facility] [address] [place] [address] Eosinophils/100 WBC (Bld) 0.6 % Normal 0.0-6.0 [facility] Comment on above: Performed By: #### L [id number] #### [facility] ([facility]) [address] [place] [address] Erythrocyte distribution width (RBC) [Ratio] 14.0 % Normal 11.5-15.0 [facility] Comment on above: Performed By: #### L [id number] #### [facility] ([facility]) [address] [place] [address] ERYTHROCYTE MEAN CORPUSCULAR HEMOGLOBIN CONCENTRATION (G/DL) BY AUTOMATED 33.7 g/dL Normal 32.0-35.0 [facility] Comment on above: Performed By: #### L [id number] #### [facility] ([facility]) [address] [place] [address] Hematocrit (Bld) [Volume fraction] 37.4 % Low 39.0-55.0 [facility] Comment on above: Performed By: #### L [id number] #### [facility] ([facility]) [address] [place] [address] Hemoglobin (Bld) [Mass/Vol] 12.6 g/dL Low 13.0-17.0 [facility] Comment on above: Performed By: #### L [id number] #### [facility] ([facility]) [address] [place] [address] Immature granulocytes (Bld) [#/Vol] 0.10 10*3/uL Normal 0.00-0.20 [facility] Comment on above: Performed By: #### L [id number] #### [facility] ([facility]) [address] [place] [address] Immature granulocytes/100 WBC (Bld) 0.8 % Normal 0.0-1.0 [facility] Comment on above: Performed By: #### L [id number] #### [facility] ([facility]) [address] [place] [address] Lymphocytes (Bld) [#/Vol] 1.24 10*3/uL Normal 1.20-4.00 [facility] Comment on above: Performed By: #### L [id number] #### [facility] ([facility] [address] [place] [address] Lymphocytes/100 WBC (Bld) 10.2 % Low 20.0-45.0 [facility] Comment on above: Performed By: #### L [id number] #### [facility] ([facility]) [address] [place] [address] MCH (RBC) [Entitic mass] 31.1 pg Normal 27.0-33.0 [facility] Comment on above: Performed By: #### L [id number] #### [facility] ([facility]) [address] [place] [address] MCV (RBC) [Entitic vol] 92.3 fL Normal 82.0-98.0 [facility] Comment on above: Performed By: #### L [id number] #### [facility] ([facility]) [address] [place] [address] Monocytes (Bld) [#/Vol] 0.90 10*3/uL Normal 0.10-1.00 [facility] Comment on above: Performed By: #### L [id number] #### [facility] ([facility]) [address] [place] [address] Monocytes/100 WBC (Bld) 7.4 % Normal 5.0-12.0 [facility] Comment on above: Performed By: #### L [id number] #### [facility] ([facility]) [address] [place] [address] Neutrophils (Bld) [#/Vol] 9.77 10*3/uL High 1.60-7.60 [facility] Comment on above: Performed By: #### L [id number] #### [facility] ([facility]) [address] [place] [address] Neutrophils/100 WBC (Bld) 80.8 % High 40.0-72.0 [facility] Comment on above: Performed By: #### L [id number] #### [facility] ([facility]) [address] [place] [address] NRBC (PER 100 WBCS) BY AUTOMATED COUNT 0.0 % Normal 0 [facility] Comment on above: Performed By: #### L [id number] #### [facility] ([facility]) [address] [place] [address] PLATELETS (10*3/UL) IN BLOOD AUTOMATED COUNT 151 10*3/uL Normal 150-400 [facility] Comment on above: Performed By: #### L [id number] #### [facility] ([facility]) [address] [place] [address] RBC (Bld) [#/Vol] 4.05 10*6/uL Low 4.20-5.70 [facility] Comment on above: Performed By: #### L [id number] #### [facility] ([facility]) [address] [place] [address] WBC (Bld) [#/Vol] 12.11 10*3/uL High 4.00-10.60 [facility] Comment on above: Performed By: #### L [id number] #### [facility] ([facility] [address] [place] [address] 30on 07-07-2024 30 Daily Case Managemen t [...] OT Six Click Score: 17 PT Recommendations: detention facility placement (Possible discharge home with improved mobility.) OT Recommendations: Home OT, With assist New Consults: Therapy Orders (From admission, onward) Start Ordered 07/06/24 1250 PT eval and treat Until therapy completed Question: Reason for PT? Answer: debility 07/06/24 1250 07/06/24 1250 OT eval and treat Until therapy completed Question: Reason for OT? Answer: debility 07/06/24 1250 Normal [facility] 30 The patient is Moderately Stable - [...] and maintained or improved Outcome: Progressing Normal [facility] 30 The patient is Moderately Stable - [...] and maintained or improved Outcome: Progressing Normal [facility] BASIC METABOLIC PANELon 06-26 Anion gap [Moles/Vol] 9 mmol/L Normal 7-20 [facility] Comment on above: Performed By: #### L [id number] ####[facility] ([facility] [place] [address] Calcium [Mass/Vol] 8.3 mg/dL Low 8.6-10.3 [facility] Comment on above: Performed By: #### L [id number] ####[facility] ([facility] [place] [address] Chloride [Moles/Vol] 108 mmol/L High 98-107 [facility] Comment on above: Performed By: #### L [id number] ####[facility] ([facility])[address] [place] [address] CO2 [Moles/Vol] 26 mmol/L Normal 21-31 [facility] Comment on above: Performed By: #### L [id number] ####[facility] ([facility])[address] [place] [address] Creatinine [Mass/Vol] 0.77 mg/dL Normal 0.70-1.30 [facility] Comment on above: Performed By: #### L [id number] ####[facility] ([facility])[address] [place] [address] GLOMERULAR FILTRATION RATE ML/MIN/1.73 SQ M.PREDICTED 89.9 mL/min/1.73m*2 Normal >60.0 [facility] Comment on above: Result Comment: The [facility]???s estimated glomerular filtration rate (eGFR) will no [...] of individuals. Performed By: #### L [id number] ####[facility] ([facility] [place] [address] Glucose [Mass/Vol] 106 mg/dL High 70-100 [facility] Comment on above: Performed By: #### L [id number] ####[facility] ([facility] [place] [address] Potassium [Moles/Vol] 3.6 mmol/L Normal 3.5-5.1 [facility] Comment on above: Performed By: #### L [id number] ####[facility] ([facility] [place] [address] Sodium [Moles/Vol] 139 mmol/L Normal 136-145 [facility] Comment on above: Performed By: #### L [id number] ####[facility] ([facility])[address] [place] [address] Urea nitrogen [Mass/Vol] 23 mg/dL Normal 7-25 [facility] Comment on above: Performed By: #### L [id number] ####[facility] ([facility])[address] [place] [address] UREA NITROGEN/CREATININE (MASS RATIO) IN SER/PLAS 29.9 Normal [facility] Comment on above: Performed By: #### L [id number] ####[facility] [facility] ([facility] [place] [address] CBCon 07-07-2024 Erythrocyte distribution width (RBC) [Ratio] 14.3 % Normal 11.5-15.0 [facility] Comment on above: Performed By: #### L [id number] ####[facility] ([facility])[address] [place] [address] ERYTHROCYTE MEAN CORPUSCULAR HEMOGLOBIN CONCENTRATION (G/DL) BY AUTOMATED 34.0 g/dL Normal 32.0-35.0 [facility] Comment on above: Performed By: #### L [id number] ####[facility] ([facility])[address] [place] [address] Hematocrit (Bld) [Volume fraction] 37.1 % Low 39.0-55.0 [facility] Comment on above: Performed By: #### L [id number] ####[facility] ([facility])[address] [place] [address] Hemoglobin (Bld) [Mass/Vol] 12.6 g/dL Low 13.0-17.0 [facility] Comment on above: Performed By: #### L [id number] ####[facility] ([facility])[address] [place] [address] MCH (RBC) [Entitic mass] 31.3 pg Normal 27.0-33.0 [facility] Comment on above: Performed By: #### L [id number] ####[facility] ([facility])[address] [place] [address] MCV (RBC) [Entitic vol] 92.3 fL Normal 82.0-98.0 [facility] Comment on above: Performed By: #### L [id number] ####[facility] ([facility])[address] [place] [address] PLATELETS (10*3/UL) IN BLOOD AUTOMATED COUNT 156 10*3/uL Normal 150-400 [facility] Comment on above: Performed By: #### L [id number] ####[facility] ([facility])[address] [place] [address] RBC (Bld) [#/Vol] 4.02 10*6/uL Low 4.20-5.70 [facility] Comment on above: Performed By: #### L [id number] ####[facility] ([facility])[address] [place] [address] WBC (Bld) [#/Vol] 11.64 10*3/uL High 4.00-10.60 [facility] Comment on above: Performed By: #### L [id number] ####[facility] ([facility])[address] [place] [address] CONSULTon 07-07-2024 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 Visit Date: 07/07/2024 Patient Name: Kyler SANDOVALN: [id number] Date of : 1940 Reason for Consult: [...] Other (comment) Abdomen Anterior;Left (Active) Wound Image 07/06/241747 Site Assessment Clean;Red;Painful 07/07/241123 Vanessa-Wound Assessment Blanchable erythema;Painful;Red;M oist 07/07/241123 Wound Length (cm) 11.5 cm 07/06/241747 Wound Width (cm) 4 cm 07/06/241747 Wound Surface Area (cm^2) 46 cm^2 07/06/241747 Closure None 07/07/241123 Drainage Description Serosanguineous 07/07/241123 Drainage Amount Scant 07/07/241123 Treatments Cleansed 07/07/241123 Dressing Dry dressing 07/07/241123 Dressing Changed New 07/07/241123 State of Healing Non-granulated tissue 07/07/241123 Wound Bed Granulation (%) 0 % 07/07/241123 Wound Bed Epithelium (%) 0 % 07/07/241123 Wound Bed Non-Granulation (%) 100 % 07/07/241123 Wound Bed Slough (%) 0 % 07/07/241123 Wound Bed Eschar (%) 0 % 07/07/241123 Margins Attached edges;Undefined edges 07/07/241123 Non-staged Wound Description Partial thickness 07/07/241123 Breann Fung RN, CWON 07/07/2024 11:26 AM Normal [facility] URINALYSIS MICROSCOPIC WITH REFLEX CULTUREon 07-07-2024 MUCUS (#/LPF) IN URINE SEDIMENT Many Abnormal None Seen, Occasional, Few [facility] Comment on above: Performed By: #### L [id number] #### [facility] ([facility]) [address] [place] [address] RBC (#/HPF) IN URINE SEDIMENT >20 Abnormal None Seen, 0-2 [facility] Comment on above: Performed By: #### L [id number] #### [facility] ([facility]) [address] [place] [address] SQUAMOUS EPITHELIAL CELLS (#/LPF) IN URINE SEDIMENT None Seen Normal None Seen, Occasional, Few [facility] Comment on above: Performed By: #### L [id number] #### [facility] ([facility]) [address] [place] [address] WBC (LEUKOCYTE) (#/HPF) IN URINE SEDIMENT >50 Abnormal None Seen, 0-2 [facility] Comment on above: Performed By: #### L [id number] #### [facility] ([facility]) [address] [place] [address] YEAST, BUDDING (#/HPF) IN URINE None Seen Normal None Seen [facility] Comment on above: Result Comment: Luis ected result: Previously reported as Few /HPF (reference range: None Seen /HPF) on 07/07/2024 at 1450 EST. Performed By: #### L [id number] #### [facility] ([facility]) [address] [place] [address] URINALYSIS WITH REFLEX CULTU REon 07-07-2024 BILIRUBIN, TOTAL PRESENCE IN URINE Negative Normal Negative [facility] Comment on above: Performed By: #### L [id number] #### [facility] ([facility]) [address] [place] [address] Clarity (U) Turbid Abnormal Clear [facility] Comment on above: Performed By: #### L [id number] #### [facility] ([facility]) [address] [place] [address] Color (U) Dark-Yellow Abnormal Colorless, Yellow, Light-Yellow [facility] Comment on above: Performed By: #### L [id number] #### [facility] ([facility]) [address] [place] [address] GLUCOSE (MG/DL) IN URINE Normal Normal Normal [facility] Comment on above: Performed By: #### L [id number] #### [facility] ([facility]) [address] [place] [address] HEMOGLOBIN PRESENCE IN URINE Large Abnormal Negative [facility] Comment on above: Performed By: #### L [id number] #### [facility] ([facility]) [address] [place] [address] Ketones Ql (U) Negative Normal Negative [facility] Comment on above: Performed By: #### L [id number] #### [facility] ([facility]) [address] [place] [address] LEUKOCYTE ESTERASE PRESENCE IN URINE BY TEST STRIP Large Abnormal Negative [facility] Comment on above: Performed By: #### L [id number] #### [facility] ([facility]) [address] [place] [address] NITRITE PRESENCE IN URINE Positive Abnormal Negative [facility] Comment on above: Performed By: #### L [id number] #### [facility] ([facility]) [address] [place] [address] pH (U) 8.0 [pH] Normal 5.0-8.0 [facility] Comment on above: Performed By: #### L [id number] #### [facility] ([facility]) [address] [place] [address] Protein (U) [Mass/Vol] 100 mg/dL Abnormal Negative [facility] Comment on above: Performed By: #### L [id number] #### [facility] ([facility]) [address] [place] [address] Specific gravity (U) [Rel density] 1.019 Normal 1.010-1.030 [facility] Comment on above: Performed By: #### L [id number] #### [facility] ([facility]) [address] [place] [address] UROBILINOGEN (MG/DL) IN URINE Normal Normal Normal [facility] Comment on above: Performed By: #### L [id number] #### [facility] ([facility]) [address] [place] [address] URINE CULTURE, ROUTINEon DAPTOmycin [Susc] <=[address] [facility] Comment on above: Performed By: #### L [id number] ####[facility] ([facility])[address] [place] [address] Linezolid [Susc] <=1 Susceptible [facility] Comment on above: Performed By: #### L [id number] ####[facility] ([facility])[address] [place] [address] Nitrofurantoin [Susc] <=16 Susceptible [facility] Comment on above: Performed By: #### L [id number] ####[facility] ([facility])[address] [place] [address] Oxacillin [Susc] >2 Resistant [facility] Comment on above: Performed By: #### L [id number] ####[facility] ([facility])[address] [place] [address] Tetracycline [Susc] >8 Resistant [facility] Comment on above: Performed By: #### L [id number] ####[facility] ([facility])[address] [place] [address] Trimethoprim+Sulfam ethoxazole [Susc] <=0.5/9.5 Susceptible [facility] Comment on above: Performed By: #### L [id number] ####[facility] ([facility])[address] [place] [address] Vancomycin [Susc] <=0.[address] [facility] Comment on above: Performed By: #### L [id number] ####[facility] ([facility])[address] [place] [address] BASIC METABOLIC PANELon 11-1 Anion gap [Moles/Vol] 12 mmol/L Normal 7-20 [facility] Comment on above: Performed By: #### L [id number] #### [facility] ([facility]) [address] [place] [address] Calcium [Mass/Vol] 8.4 mg/dL Low 8.6-10.3 [facility] Comment on above: Performed By: #### L [id number] #### [facility] ([facility]) [address] [place] [address] Chloride [Moles/Vol] 109 mmol/L High 98-107 [facility] Comment on above: Performed By: #### L [id number] #### [facility] ([facility]) [address] [place] [address] CO2 [Moles/Vol] 21 mmol/L Normal 21-31 [facility] Comment on above: Performed By: #### L [id number] #### [facility] ([facility]) [address] [place] [address] Creatinine [Mass/Vol] 0.77 mg/dL Normal 0.70-1.30 [facility] Comment on above: Performed By: #### L [id number] #### [facility] ([facility]) [address] [place] [address] GLOMERULAR FILTRATION RATE ML/MIN/1.73 SQ M.PREDICTED 89.9 mL/min/1.73m*2 Normal >60.0 [facility] Comment on above: Result Comment: The [facility]???s estimated glomerular filtration rate (eGFR) will no [...] group of individuals. Performed By: #### L [id number] #### [facility] ([facility]) [address] [place] [address] Glucose [Mass/Vol] 127 mg/dL High 70-100 [facility] Comment on above: Performed By: #### L [id number] #### [facility] ([facility]) [address] [place] [address] Potassium [Moles/Vol] 3.8 mmol/L Normal 3.5-5.1 [facility] Comment on above: Performed By: #### L [id number] #### [facility] ([facility]) [address] [place] [address] Sodium [Moles/Vol] 138 mmol/L Normal 136-145 [facility] Comment on above: Performed By: #### L [id number] #### [facility] ([facility]) [address] [place] [address] Urea nitrogen [Mass/Vol] 22 mg/dL Normal 7-25 [facility] Comment on above: Performed By: #### L [id number] #### [facility] ([facility]) [address] [place] [address] UREA NITROGEN/CREATININE (MASS RATIO) IN SER/PLAS 28.6 Normal [facility] Comment on above: Performed By: #### L [id number] #### [facility] ([facility]) [address] [place] [address] CBCon 07-06-2024 Erythrocyte distribution width (RBC) [Ratio] 13.9 % Normal 11.5-15.0 [facility] Comment on above: Performed By: #### L [id number] ####[facility] ([facility])[address] [place] [address] ERYTHROCYTE MEAN CORPUSCULAR HEMOGLOBIN CONCENTRATION (G/DL) BY AUTOMATED 33.8 g/dL Normal 32.0-35.0 [facility] Comment on above: Performed By: #### L [id number] ####[facility] ([facility])[address] [place] [address] Hematocrit (Bld) [Volume fraction] 39.3 % Normal 39.0-55.0 [facility] Comment on above: Performed By: #### L [id number] ####[facility] ([facility])[address] [place] [address] Hemoglobin (Bld) [Mass/Vol] 13.3 g/dL Normal 13.0-17.0 [facility] Comment on above: Performed By: #### L [id number] ####[facility] ([facility])[address] [place] [address] MCH (RBC) [Entitic mass] 31.6 pg Normal 27.0-33.0 [facility] Comment on above: Performed By: #### L [id number] ####[facility] ([facility])[address] [place] [address] MCV (RBC) [Entitic vol] 93.3 fL Normal 82.0-98.0 [facility] Comment on above: Performed By: #### L [id number] ####[facility] ([facility])[address] [place] [address] PLATELETS (10*3/UL) IN BLOOD AUTOMATED COUNT 161 10*3/uL Normal 150-400 [facility] Comment on above: Performed By: #### L [id number] ####[facility] ([facility])[address] [place] [address] RBC (Bld) [#/Vol] 4.21 10*6/uL Normal 4.20-5.70 [facility] Comment on above: Performed By: #### L [id number] ####[facility] ([facility])[address] [place] [address] WBC (Bld) [#/Vol] 11.72 10*3/uL High 4.00-10.60 [facility] Comment on above: Performed By: #### L [id number] ####[facility] ([facility])[address] [place] [address] Ambulatory Visit Summaryon 1 Ambulatory Visit Summary Ambulatory Visit Summary RICHARDKYLER :1940 Visit Date:06/22/2024 Ambulatory Visit Instructions Your [...] solution) fluticasone nasal (fluticasone Nasal 0.05 mg/inh Leming) hyoscyamine (hyoscyamine 0.125 mg sublingual Tab) icosapent [...] APRN, Lazara Echavarria Where: [facility] [address] [place] [address]- Medications What How Much When Instructions Unchanged [...] fluticasone nasal (fluticasone Nasal 0.05 mg/ inh Leming) instill 1 spray into each nostril once [...] for choosing us for your care. Normal [facility] C Urineon 06-04-2024 Bacteria identified Cx Nom (U) Microbiology PROCEDURE: Urine Culture [R1] SOURCE: U Random BODY SITE: COLLECTED DATE/TIME: 06/02/2024 12:49 EDT RECEIVED DATE/TIME: 06/02/2024 17:59 EDT START DATE/TIME: 06/02/2024 17:59 EDT FREE TEXT SOURCE: RENA Lino APRN-C, Zoie FOX, RENA-C, Lazara X Lazara X [...] This test was performed at: [facility], [address] [place] [address], [address]- , , [facility] Comment on above: Performed By: #### 2 [id number] #### [facility] [address] [place] [address] Urology Office/Clinic Noteon 06-02-2024 Urology Office/Clinic Note Urology Office/Clinic Note Chief Complaint [facility] ER follow up HPI Staff 83 year old male patient presents today for a ER follow up from [facility]. Has had a cath from prostate [...] with voice recognition artificial intelligence software, specifically [employer] (P), [employer] and or [employer]. Substitutions may have occurred due to the [...] day(s), # 14 cap(s), Refills(s) 0, Pharmacy: [facility], 158, cm, 06/02/24 11:55:00 EDT, Height/Length Dosing, 96, kg, 06/02/24 11:55:00 ED... 2. Urinary retention (R33.9: Retention of urine, unspecified) Has experienced urinary retention in the past. 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 Episode of retention 03/12/2024 at [facility] ER. Patient opted to keep More [...] day or 2 prior to ER visit. [facility] ER 05/10/2024 with difficulty urinating. There [...] [facility] (more content not included)... Normal [facility] Comment on above: Result Comment: Elec tronically Signed By: KIM Lino APRN, Lazara Echavarria\.br\Date and Time Signed: 06/02/24 13:23 EDT [facility] UA (CLEAN/CATCH) KNOCKER OUT/CARIN RO IF IND.on 05-11-2024 BILIRUBIN URINE COLOR INTERFERENCE Abnormal NEGATIVE N [facility] BLOOD URINE COLOR INTERFERENCE Abnormal NEGATIVE [facility] Clarity (U) CLEAR CLEAR [facility] Color (U) DK. RED YELLOW [facility] GLUCOSE URINE UA COLOR INTERFERENCE Abnormal NEGAT SRINI mg/dL [facility] Interpretation and review of laboratory results Abnormal [facility] Ketones Ql (U) COLOR INTERFERENCE Abnormal NEGATIV E mg/dL [facility] Leukocyte esterase Test strip Ql (U) COLOR INTERFERENCE Abnormal NEGATIVE [facility] care NITRITE URINE COLOR INTERFERENCE Abnormal NEGATIVE [facility] PH URINE COLOR INTERFERENCE Abnormal 5.0 - 9.0 [facility] PROTEIN URINE COLOR INTERFERENCE Abnormal NEG/TRAC E mg/dL [facility] SPECIFIC GRAVITY URINE 1.015 1.005 - 1.025 [facility] URINE MICROSCOPIC INDICATED YES [facility] UROBILINOGEN URINE COLOR INTERFERENCE Abnormal 0.2 - 1.0 EU/dL [facility] COMPREHENSIVE METABOLIC PANE Jarett 04-20-2024 Albumin [Mass/Vol] 3.4 g/dL Normal 3.2-5.3 [facility] Comment on above: Performed By: #### C MP ####[facility] ([id number])[address] [place] [address], [place] [address] ALP [Catalytic activity/Vol] 73 U/L Normal 39-130 [facility] Comment on above: Performed By: #### C MP ####[facility] ([id number])[address] [place] [address], [place] [address] ALT [Catalytic activity/Vol] 21 U/L Normal 0-40 [facility] Comment on above: Performed By: #### C MP ####[facility] ([id number])[address] [place] [address] [place] [address] Anion gap [Moles/Vol] 8 mmol/L Normal 5-15 [facility] Comment on above: Performed By: #### C MP ####[facility] ([id number])[address] [place] [address], [place] [address] AST [Catalytic activity/Vol] 17 U/L Normal 0-41 [facility] Comment on above: Performed By: #### C MP ####[facility] ([id number])[address] [place] [address] [place] [address] Bilirubin [Mass/Vol] 0.7 mg/dL Normal 0.3-1.2 [facility] Comment on above: Performed By: #### C MP ####[facility] ([id number])[address] [place] [address], [place] [address] Calcium [Mass/Vol] 8.4 mg/dL Low 8.5-10.5 [facility] Comment on above: Performed By: #### C MP ####[facility] ([id number])[address] [place] [address], [place] [address] Chloride [Moles/Vol] 102 mmol/L Normal 98-109 [facility] Comment on above: Performed By: #### C MP ####[facility] ([id number])[address] [place] [address] CO2 [Moles/Vol] 24 mmol/L Normal 22-32 [facility] Comment on above: Performed By: #### C MP ####[facility] ([id number])[address] [place] [address] Creatinine [Mass/Vol] 0.85 mg/dL Normal 0.70-1.20 [facility] Comment on above: Result Comment: METH OD TRACEABLE TO IDMS STANDARD Performed By: #### C MP ####[facility] ([id number])[address] [place] [address] GFR/1.73 sq M.predicted among non-blacks MDRD (S/P/Bld) [Vol rate/Area] 87 mL/min/{1.73_m2} Normal >59 [facility] Comment on above: Result Comment: Reported eGFR is based on the CKD-EPI 2020 equation that does not use a race coefficient. Performed By: #### C MP ####[facility] ([id number])[address] [place] [address] Glucose [Mass/Vol] 119 mg/dL High 65-99 [facility] Comment on above: Performed By: #### C MP ####[facility] ([id number])[address] [place] [address] [place] [address] Potassium [Moles/Vol] 3.4 mmol/L Low 3.5-5.0 [facility] Comment on above: Performed By: #### C MP ####[facility] ([id number])[address] [place] [address] Protein [Mass/Vol] 6.4 g/dL Normal 6.0-8.0 [facility] Comment on above: Performed By: #### C MP ####[facility] ([id number])[address] [place] [address] Sodium [Moles/Vol] 134 mmol/L Normal 134-146 [facility] Comment on above: Performed By: #### C MP ####[facility] ([id number])[address] [place] [address] Urea nitrogen [Mass/Vol] 19 mg/dL Normal 5-27 [facility] Comment on above: Performed By: #### C MP ####[facility] ([id number])[address] [place] [address] CBC AND AUTO DIFFon 04-19- 24 ABSOLUTE BASOPHIL 0.0 X10E9/L Normal 0.0-0.2 [facility] Comment on above: Performed By: #### C MP, CBCA ####[facility] ([id number])[address] [place] [address] ABSOLUTE NEUTROPHIL 3.3 X10E9/L Normal 1.5-6.[address] [facility] Comment on above: Performed By: #### C MP, CBCA ####[facility] ([id number])[address] [place] [address] Basophils/100 WBC (Bld) 0.4 % Normal [facility] Comment on above: Performed By: #### C MP, CBCA ####[facility] ([id number])[address] [place] [address] Eosinophils (Bld) [#/Vol] 0.3 10*3/uL Normal 0.0-0.4 [facility] Comment on above: Performed By: #### C MP, CBCA ####[facility] ([id number])[address] [place] [address] Eosinophils/100 WBC (Bld) 4.5 % Normal [facility] Comment on above: Performed By: #### C MP, CBCA ####[facility] ([id number])[address] [place] [address] [place] [address] Erythrocyte distribution width (RBC) [Ratio] 13.4 % Normal 11.5-15.0 [facility] Comment on above: Performed By: #### C MP, CBCA ####[facility] ([id number])[address] [place] [address] Hematocrit (Bld) [Volume fraction] 43.2 % Normal 39-49 [facility] Comment on above: Performed By: #### C MP, CBCA ####[facility] ([id number])[address] [place] [address] Hemoglobin (Bld) [Mass/Vol] 15.1 g/dL Normal 13.0-17.0 [facility] Comment on above: Performed By: #### C MP, CBCA ####[facility] ([id number])[address] [place] [address] Lymphocytes (Bld) [#/Vol] 2.1 10*3/uL Normal 1.0-3.5 [facility] Comment on above: Performed By: #### C MP, CBCA ####[facility] ([id number])[address] [place] [address] Lymphocytes/100 WBC (Bld) 33.9 % Normal [facility] Comment on above: Performed By: #### C MP, CBCA ####[facility] ([id number])[address] [place] [address] MCH (RBC) [Entitic mass] 31.9 pg Normal 27-34 [facility] Comment on above: Performed By: #### C MP, CBCA ####[facility] ([id number])[address] [place] [address] 81041 MCHC (RBC) [Mass/Vol] 34.8 g/dL Normal 32-36 [facility] Comment on above: Performed By: #### C MP, CBCA ####[facility] ([id number])[address] [place] [address] 83536 MCV (RBC) [Entitic vol] 92 fL Normal 80-100 [facility] Comment on above: Performed By: #### C MP, CBCA ####[facility] ([id number])[address] [place] [address] 63064 Monocytes (Bld) [#/Vol] 0.5 10*3/uL Normal 0-0.9 [facility] Comment on above: Performed By: #### C MP, CBCA ####[facility] ([id number])[address] [place] [address] 93921 Monocytes/100 WBC (Bld) 8.5 % Normal [facility] Comment on above: Performed By: #### C MP, CBCA ####[facility] ([id number])[address] [place] [address] 38446 Neutrophils/100 WBC (Bld) 52.7 % Normal [facility] Comment on above: Performed By: #### C MP, CBCA ####[facility] ([id number])[address] [place] [address] 47247 Platelet mean volume (Bld) [Entitic vol] 8.2 fL Normal 7-12 [facility] Comment on above: Performed By: #### C MP, CBCA ####[facility] ([id number])[address] [place] [address] 85302 Platelets (Bld) [#/Vol] 140 10*3/uL Low 150-450 [facility] Comment on above: Performed By: #### C MP, CBCA ####[facility] ([id number])[address] [place] [address] [place] [address] RBC COUNT 4.71 X10E12/L Normal 4.10-5.70 [facility] Comment on above: Performed By: #### C SERINA CBCA ####[facility] ([id number])[address] [place] [address] 74360 WBC (Bld) [#/Vol] 6.2 10*3/uL Normal 4.0-11.0 [facility] Comment on above: Performed By: #### C SERINA, CBCA ####[facility] ([id number])[address] [place] [address] 83281 COMPREHENSIVE METABOLIC PANE [facility] 04-19-2024 Albumin [Mass/Vol] 3.4 g/dL Normal 3.2-5.3 [facility] Comment on above: Performed By: #### C SERINA, CBCA ####[facility] ([id number])[address] [place] [address] 14815 ALP [Catalytic activity/Vol] 69 U/L Normal 39-130 [facility] Comment on above: Performed By: #### C SERINA CBCA ####[facility] ([id number])[address] [place] [address] 33954 ALT [Catalytic activity/Vol] 18 U/L Normal 0-40 [facility] Comment on above: Performed By: #### C SERINA CBCA ####[facility] ([id number])[address] [place] [address] 42301 Anion gap [Moles/Vol] 9 mmol/L Normal 5-15 [facility] Comment on above: Performed By: #### C SERINA, CBCA ####[facility] ([id number])[address] [place] [address] 33209 AST [Catalytic activity/Vol] 23 U/L Normal 0-41 [facility] Comment on above: Performed By: #### C SERINA, CBCA ####[facility] ([id number])[address] [place] [address] [place] [address] Bilirubin [Mass/Vol] 1.0 mg/dL Normal 0.3-1.2 [facility] Comment on above: Result Comment: RESU LTS QUESTIONABLE DUE TO HEMOLYSIS Performed By: #### C MARIANO SMALLSA ####[facility] ([id number])[address] [place] [address] 66706 Calcium [Mass/Vol] 8.3 mg/dL Low 8.5-10.5 [facility] Comment on above: Performed By: #### C SERINA, CBCA ####[facility] ([id number])[address] [place] [address] 26382 Chloride [Moles/Vol] 107 mmol/L Normal 98-109 [facility] Comment on above: Performed By: #### C SERINA CBCA ####[facility] ([id number])[address] [place] [address] 78132 CO2 [Moles/Vol] 21 mmol/L Low 22-32 [facility] Comment on above: Performed By: #### C SERINA CBCA ####[facility] ([id number])[address] [place] [address] 50628 Creatinine [Mass/Vol] 0.81 mg/dL Normal 0.70-1.20 [facility] Comment on above: Result Comment: METH OD TRACEABLE TO IDMS STANDARD Performed By: #### C SERINA, CBCA ####[facility] ([id number])[address] [place] [address] 17726 GFR/1.73 sq M.predicted among non-blacks MDRD (S/P/Bld) [Vol rate/Area] 89 mL/min/{1.73_m2} Normal >59 [facility] Comment on above: Result Comment: Reported eGFR is based on the CKD-EPI 2020 equation that does not use a race coefficient. Performed By: #### C SERINA CBCA ####[facility] ([id number])[address] [place] [address], [place] [address] Glucose [Mass/Vol] 125 mg/dL High 65-99 [facility] Comment on above: Performed By: #### C MP, CBCA ####[facility] ([id number])[address] [place] [address], [place] [address] Potassium [Moles/Vol] 4.0 mmol/L Normal 3.5-5.0 [facility] Comment on above: Result Comment: SPEC IMEN HEMOLYZED, RESULTS INCREASED Performed By: #### C MP, CBCA ####[facility] ([id number])[address] [place] [address] 22294 Protein [Mass/Vol] 6.0 g/dL Normal 6.0-8.0 [facility] Comment on above: Performed By: #### C MP, CBCA ####[facility] ([id number])[address] [place] [address], [place] [address] Sodium [Moles/Vol] 137 mmol/L Normal 134-146 [facility] Comment on above: Performed By: #### C MP, CBCA ####[facility] ([id number])[address] [place] [address] [place] [address] Urea nitrogen [Mass/Vol] 16 mg/dL Normal 5-27 [facility] Comment on above: Performed By: #### C MP, CBCA ####[facility] ([id number])[address] [place] [address] [place] [address] Calcium.ionized (Bld) [Moles /Vol]on 04-19-2024 PORTABLE ICA 4.6 mg/dL Normal 4.5-5.3 [facility] Comment on above: Performed By: #### 1 994-3 ####[facility] ([id number])[address] [place] [address], [place] [address] CBC AND AUTO DIFFon 24-20 24 ABSOLUTE BASOPHIL 0.1 X10E9/L Normal 0.0-0.2 [facility] Comment on above: Performed By: #### C BCA, CMP ####[facility] ([id number])[address] [place] [address] 32760#### 22393-5 ####[facility] ([id number])[address], [address] [place] [address] 99306 ABSOLUTE NEUTROPHIL 2.7 X10E9/L Normal 1.5-6.[address] [facility] Comment on above: Performed By: #### C BCA, CMP ####[facility] ([id number])[address] [place] [address] 53005#### 04094-4 ####[facility] ([id number])[address], [address] [place] [address] 92906 Basophils/100 WBC (Bld) 0.9 % Normal [facility] Comment on above: Performed By: #### C BCA, CMP ####[facility] ([id number])[address] [place] [address] 94554#### 47668-9 ####[facility] ([id number])[address], [address] [place] [address] 23842 Eosinophils (Bld) [#/Vol] 0.2 10*3/uL Normal 0.0-0.4 [facility] Comment on above: Performed By: #### C BCA, CMP ####[facility] ([id number])[address] [place] [address] 66567#### 37771-4 ####[facility] ([id number])[address], [address], [place] [address] Eosinophils/100 WBC (Bld) 4.1 % Normal [facility] Comment on above: Performed By: #### C BCA, CMP ####[facility] ([id number])[address] [place] [address] 13066#### 71132-2 ####[facility] ([id number])[address], [address], [place] [address] Erythrocyte distribution width (RBC) [Ratio] 13.8 % Normal 11.5-15.0 [facility] Comment on above: Performed By: #### C BCA, CMP ####[facility] ([id number])[address] [place] [address] 47388#### 83142-6 ####[facility] ([id number])[address], [address] [place] [address] 14867 Hematocrit (Bld) [Volume fraction] 41.2 % Normal 39-49 [facility] Comment on above: Performed By: #### C BCA, CMP ####[facility] ([id number])[address] [place] [address] 73681#### 82738-6 ####[facility] ([id number])[address], [address], [place] [address] Hemoglobin (Bld) [Mass/Vol] 14.1 g/dL Normal 13.0-17.0 [facility] Comment on above: Performed By: #### C BCA, CMP ####[facility] ([id number])[address] [place] [address] 20190#### 48138-0 ####[facility] ([id number])[address], [address], [place] [address] Lymphocytes (Bld) [#/Vol] 1.9 10*3/uL Normal 1.0-3.5 [facility] Comment on above: Performed By: #### C BCA, CMP ####[facility] ([id number])[address] [place] [address] 98851#### 10249-9 ####[facility] ([id number])[address], [address], [place] [address] Lymphocytes/100 WBC (Bld) 35.6 % Normal [facility] Comment on above: Performed By: #### C BCA, CMP ####[facility] ([id number])[address] [place] [address] 87129#### 89807-4 ####[facility] ([id number])[address], [address], [place] [address] MCH (RBC) [Entitic mass] 31.7 pg Normal 27-34 [facility] Comment on above: Performed By: #### C BCA, CMP ####[facility] ([id number])[address] [place] [address] 12274#### 23579-5 ####[facility] ([id number])[address], [address], [place] [address] MCHC (RBC) [Mass/Vol] 34.2 g/dL Normal 32-36 [facility] Comment on above: Performed By: #### C BCA, CMP ####[facility] ([id number])[address] [place] [address] 40476#### 39880-4 ####[facility] ([id number])[address], [address] [place] [address] MCV (RBC) [Entitic vol] 93 fL Normal 80-100 [facility] Comment on above: Performed By: #### C BCA, CMP ####[facility] ([id number])[address] [place] [address] 58761#### 47053-1 ####[facility] ([id number])[address], [address] [place] [address] Monocytes (Bld) [#/Vol] 0.5 10*3/uL Normal 0-0.9 [facility] Comment on above: Performed By: #### C BCA, CMP ####[facility] ([id number])[address] [place] [address] 30246#### 20562-8 ####[facility] ([id number])[address], [address] [place] [address] Monocytes/100 WBC (Bld) 9.4 % Normal [facility] Comment on above: Performed By: #### C BCA, CMP ####[facility] ([id number])[address] [place] [address] 73074#### 01156-7 ####[facility] ([id number])[address], [address], [place] [address] Neutrophils/100 WBC (Bld) 50.0 % Normal [facility] Comment on above: Performed By: #### C BCA, CMP ####[facility] ([id number])[address] [place] [address] 97618#### 72850-0 ####[facility] ([id number])[address], [address] [place] [address] Platelet mean volume (Bld) [Entitic vol] 8.2 fL Normal 7-12 [facility] Comment on above: Performed By: #### C BCA, CMP ####[facility] ([id number])[address] [place] [address] 73377#### 21449-1 ####[facility] ([id number])[address], [address] [address] Platelets (Bld) [#/Vol] 159 10*3/uL Normal 150-450 [facility] Comment on above: Performed By: #### C BCA, CMP ####[facility] ([id number])[address] [place] [address] 06015#### 19237-0 ####[facility] ([id number])[address], [address], [place] [address] RBC COUNT 4.45 X10E12/L Normal 4.10-5.70 [facility] Comment on above: Performed By: #### C BCA, CMP ####[facility] ([id number])[address] [place] [address] 84128#### 04863-3 ####[facility] ([id number])[address], [address] [place] [address] 86567 WBC (Bld) [#/Vol] 5.4 10*3/uL Normal 4.0-11.0 [facility] Comment on above: Performed By: #### C BCA, CMP ####[facility] ([id number])[address] [place] [address] 24753#### 49462-2 ####[facility] ([id number])[address], [address] [place] [address] 27421 COMPREHENSIVE METABOLIC PANE [facility] 04-18-2024 Albumin [Mass/Vol] 3.3 g/dL Normal 3.2-5.3 [facility] Comment on above: Performed By: #### C BCA, CMP ####[facility] ([id number])[address] [place] [address] 67509#### 15349-2 ####[facility] ([id number])[address] [address] ALP [Catalytic activity/Vol] 67 U/L Normal 39-130 [facility] Comment on above: Performed By: #### C BCA, CMP ####[facility] ([id number])[address] [place] [address] 01250#### 91004-3 ####[facility] ([id number])[address] [place] [address] ALT [Catalytic activity/Vol] 18 U/L Normal 0-40 [facility] Comment on above: Performed By: #### C BCA, CMP ####[facility] ([id number])[address] [place] [address] 87114#### 89441-9 ####[facility] ([id number])[address], [address] [address] Anion gap [Moles/Vol] 7 mmol/L Normal 5-15 [facility] Comment on above: Performed By: #### C BCA, CMP ####[facility] ([id number])[address] [place] [address] 73842#### 73328-1 ####[facility] ([id number])[address], [address], [place] [address] AST [Catalytic activity/Vol] 17 U/L Normal 0-41 [facility] Comment on above: Performed By: #### C BCA, CMP ####[facility] ([id number])[address] [place] [address] 29671#### 62048-5 ####[facility] ([id number])[address] [place] [address] Bilirubin [Mass/Vol] 0.8 mg/dL Normal 0.3-1.2 [facility] Comment on above: Performed By: #### C BCA, CMP ####[facility] ([id number])[address] [place] [address] 97806#### 28148-6 ####[facility] ([id number])[address] [place] [address] Calcium [Mass/Vol] 8.2 mg/dL Low 8.5-10.5 [facility] Comment on above: Performed By: #### C BCA, CMP ####[facility] ([id number])[address] [place] [address] 38347#### 77005-0 ####[facility] ([id number])[address] [place] [address] Chloride [Moles/Vol] 108 mmol/L Normal 98-109 [facility] Comment on above: Performed By: #### C BCA, CMP ####[facility] ([id number])[address] [place] [address] 47446#### 38001-7 ####[facility] ([id number])[address], [address] [address] CO2 [Moles/Vol] 23 mmol/L Normal 22-32 [facility] Comment on above: Performed By: #### C BCA, CMP ####[facility] ([id number])[address] [place] [address] 28848#### 16226-2 ####[facility] ([id number])[address] [place] [address] Creatinine [Mass/Vol] 0.75 mg/dL Normal 0.70-1.20 [facility] Comment on above: Result Comment: METH OD TRACEABLE TO IDMS STANDARD Performed By: #### C BCA, CMP ####[facility] ([id number])[address] [place] [address] 32494#### 35766-0 ####[facility] ([id number])[address] [place] [address] eGFR (CKD-EPI) NON-RACE DEPENDENT >90 Normal >59 [facility] Comment on above: Result Comment: Reported eGFR is based on the CKD-EPI 2020 equation that does not use a race coefficient. Performed By: #### C BCA, CMP ####[facility] ([id number])[address] [place] [address] 05631#### 90540-1 ####[facility] ([id number])[address] [place] [address] Glucose [Mass/Vol] 110 mg/dL High 65-99 [facility] Comment on above: Performed By: #### C BCA, CMP ####[facility] ([id number])[address] [place] [address] 49936#### 15257-4 ####[facility] ([id number])[address], [address], [place] [address] Potassium [Moles/Vol] 3.5 mmol/L Normal 3.5-5.0 [facility] Comment on above: Performed By: #### C BCA, CMP ####[facility] ([id number])[address] [place] [address] 33609#### 71107-1 ####[facility] ([id number])[address] [place] [address] Protein [Mass/Vol] 5.9 g/dL Low 6.0-8.0 [facility] Comment on above: Performed By: #### C BCA, CMP ####[facility] ([id number])[address] [place] [address] 01242#### 19147-4 ####[facility] ([id number])[address], [place] [address] Sodium [Moles/Vol] 138 mmol/L Normal 134-146 [facility] Comment on above: Performed By: #### C BCA, CMP ####[facility] ([id number])[address] [place] [address] 23934#### 62732-6 ####[facility] ([id number])[address] [facility], [address] [place] [address] 97[address] Urea nitrogen [Mass/Vol] 16 mg/dL Normal 5-27 [facility] Comment on above: Performed By: #### C BCA, CMP ####[facility] ([id number])[address] [place] [address] 51814#### 21321-0 ####[facility] ([id number])[address] [facility], [address] [address] Lipid 1996 panelon 4 Cholesterol [Mass/Vol] 117 mg/dL Low 150-200 [facility] Comment on above: Performed By: #### Alessandro BCA, CMP ####[facility] ([id number])[address] [place] [address] 93967#### 49001-1 ####[facility] ([id number])[address] [facility], [address] [place] [address] 449[address] Cholesterol in HDL [Mass/Vol] 28 mg/dL Low >39 [facility] Comment on above: Result Comment: HDL <40 mg/dL - High Risk HDL > or = 40mg/dL- Desirable HDL >60 mg/dL - Negative Risk Performed By: #### C BCA, CMP ####[facility] ([id number])[address] [place] [address] 72527#### 90629-7 ####[facility] ([id number])[address] [facility], [address] [place] [address] Cholesterol in LDL [Mass/Vol] 35 mg/dL Normal <130 [facility] Comment on above: Result Comment: LDL <100 mg/dL - Desirable LDL >160 mg/dL - High Risk Performed By: #### C BCA, CMP ####[facility] ([id number])[address] [place] [address] 36470#### 10081-8 ####[facility] ([id number])[address] [address] Cholesterol in VLDL [Mass/Vol] 54 mg/dL High 0-30 [facility] Comment on above: Performed By: #### C BCA, CMP ####[facility] ([id number])[address] [place] [address] 45412#### 19017-2 ####[facility] ([id number])[address] [address] CHOLESTEROL:HDL 4.2 Normal 1.0-5.0 [facility] Comment on above: Performed By: #### C BCA, CMP ####[facility] ([id number])[address] [place] [address] 38045#### 88380-8 ####[facility] ([id number])[address] [address] Triglyceride [Mass/Vol] 270 mg/dL High 27-150 [facility] Comment on above: Performed By: #### C BCA, CMP ####[facility] ([id number])[address] [place] [address] 98078#### 43755-1 ####[facility] ([id number])[address] [facility], [address], [place] [address] POTASSIUMon 04-18-2024 Potassium [Moles/Vol] 4.1 mmol/L Normal 3.5-5.0 [facility] Comment on above: Performed By: #### 2 823-3 ####[facility] ([id number])[address] [place] [address] 76657 BASIC METABOLIC PANLon 04-17 Anion gap [Moles/Vol] 5 mmol/L Normal 5-15 [facility] Comment on above: Performed By: #### C BCA, BMP, PINR, 40294-0, 89040-5, 3015-3, 7 #### [facility] ([id number]) [address] [place] [address] 88590 #### HA1C #### [facility] ([id number]) [address] [facility], [address] [place] [address] Calcium [Mass/Vol] 8.2 mg/dL Low 8.5-10.5 [facility] Comment on above: Performed By: #### C BCA, BMP, PINR, 10208-8, 93543-0, 3015-3, 7 #### [facility] ([id number]) [address] [place] [address] 67900 #### HA1C #### [facility] ([id number]) [address] [facility], [address] [place] [address] Chloride [Moles/Vol] 105 mmol/L Normal 98-109 [facility] Comment on above: Performed By: #### C BCA, BMP, PINR, 47549-9, 08828-0, 3015-3, 7 #### [facility] ([id number]) [address] [place] [address] 00659 #### HA1C #### [facility] ([id number]) [address], [address] [place] [address] CO2 [Moles/Vol] 26 mmol/L Normal 22-32 [facility] Comment on above: Performed By: #### C BCA, BMP, PINR, 33872-0, 68503-2, 3016-3, 3024-7 #### [facility] ([id number]) [address] [place] [address] #### HA1C #### [facility] ([id number]) [address], [address] [place] [address] Creatinine [Mass/Vol] 0.97 mg/dL Normal 0.70-1.20 [facility] Comment on above: Result Comment: METH OD TRACEABLE TO IDMS STANDARD Performed By: #### C BCA, BMP, PINR, 35940-2, 38309-1, 3016-3, 3027 #### [facility] ([id number]) [address] [place] [address] #### HA1C #### [facility] ([id number]) [address], [address] [place] [address] GFR/1.73 sq M.predicted among non-blacks MDRD (S/P/Bld) [Vol rate/Area] 78 mL/min/{1.73_m2} Normal >59 [facility] Comment on above: Result Comment: Reported eGFR is based on the CKD-EPI 2020 equation that does not use a race coefficient. Performed By: #### C BCA, BMP, PINR, 19823-8, 33468-5, 3016-3, 3024-7 #### [facility] ([id number]) [address] [place] [address] #### HA1C #### [facility] ([id number]) [address], [address] [place] [address] Glucose [Mass/Vol] 108 mg/dL High 65-99 [facility] Comment on above: Performed By: #### C BCA, BMP, PINR, 90176-7, 99714-3, 3015-3, 3023-7 #### [facility] ([id number]) [address] [place] [address] #### HA1C #### [facility] ([id number]) [address], [address] [place] [address] Potassium [Moles/Vol] 3.7 mmol/L Normal 3.5-5.0 [facility] Comment on above: Performed By: #### C BCA, BMP, PINR, 66653-1, 40651-4, 3015-3, 7 #### [facility] ([id number]) [address] [place] [address] 20831 #### HA1C #### [facility] ([id number]) [address] [facility], [address] [place] [address] Sodium [Moles/Vol] 136 mmol/L Normal 134-146 [facility] Comment on above: Performed By: #### C BCA, BMP, PINR, 43861-0, 37251-9, 3015-3, 7 #### [facility] ([id number]) [address] [place] [address] 67005 #### HA1C #### [facility] ([id number]) [address], [address] [place] [address] Urea nitrogen [Mass/Vol] 23 mg/dL Normal 5-27 [facility] Comment on above: Performed By: #### C BCA, BMP, PINR, 79370-8, 69816-8, 3015-3, 7 #### [facility] ([id number]) [address] [place] [address] 85181 #### HA1C #### [facility] ([id number]) [address], [address] [place] [address] CBC AND AUTO DIFFon 04-17-20 24 ABSOLUTE BASOPHIL 0.0 X10E9/L Normal 0.0-0.2 [facility] Comment on above: Performed By: #### C BCA, BMP, PINR, 51186-4, 49715-3, 3016-3, 3024-7 #### [facility] ([id number]) [address] [place] [address] 18665 #### HA1C #### [facility] ([id number]) [address], [address] [place] [address] ABSOLUTE NEUTROPHIL 2.4 X10E9/L Normal 1.5-6.[address] [facility] Comment on above: Performed By: #### C BCA, BMP, PINR, 28239-1, 83905-3, 3016-3, 30247 #### [facility] ([id number]) [address] [place] [address] 31548 #### HA1C #### [facility] ([id number]) [address], [address] [place] [address] Basophils/100 WBC (Bld) 0.8 % Normal [facility] Comment on above: Performed By: #### C BCA, BMP, PINR, 90899-0, 01817-0, 3016-3, 3024-7 #### [facility] ([id number]) [address] [place] [address] 17255 #### HA1C #### [facility] ([id number]) [address], [address] [place] [address] Eosinophils (Bld) [#/Vol] 0.2 10*3/uL Normal 0.0-0.4 [facility] Comment on above: Performed By: #### C BCA, BMP, PINR, 34092-1, 35438-5, 3016-3, 302-7 #### [facility] ([id number]) [address] [place] [address] 01647 #### HA1C #### [facility] ([id number]) [address], [address] [place] [address] Eosinophils/100 WBC (Bld) 4.1 % Normal [facility] Comment on above: Performed By: #### C BCA, BMP, PINR, 05699-3, 54530-3, 3016-3, 302-7 #### [facility] ([id number]) [address] [place] [address] 20945 #### HA1C #### [facility] ([id number]) [address], [address] [place] [address] Erythrocyte distribution width (RBC) [Ratio] 13.6 % Normal 11.5-15.0 [facility] Comment on above: Performed By: #### C BCA, BMP, PINR, 84508-9, 02910-5, 3016-3, 3023-7 #### [facility] ([id number]) [address] [place] [address] 53787 #### HA1C #### [facility] ([id number]) [address], [address] [place] [address] Hematocrit (Bld) [Volume fraction] 41.0 % Normal 39-49 [facility] Comment on above: Performed By: #### C BCA, BMP, PINR, 35590-7, 33601-2, 3016-3, 302-7 #### [facility] ([id number]) [address] [place] [address] 84156 #### HA1C #### [facility] ([id number]) [address], [address] [place] [address] Hemoglobin (Bld) [Mass/Vol] 14.0 g/dL Normal 13.0-17.0 [facility] Comment on above: Performed By: #### C BCA, BMP, PINR, 76994-4, 58346-1, 3016-3, 3023-7 #### [facility] ([id number]) [address] [place] [address] 27357 #### HA1C #### [facility] ([id number]) [address] [facility], [address] [place] [address] Lymphocytes (Bld) [#/Vol] 2.3 10*3/uL Normal 1.0-3.5 [facility] Comment on above: Performed By: #### C BCA, BMP, PINR, 81409-4, 07604-1, 3015-3, 3024-02 #### [facility] ([id number]) [address] [place] [address] 54995 #### HA1C #### [facility] ([id number]) [address] [facility], [address] [place] [address] Lymphocytes/100 WBC (Bld) 41.5 % Normal [facility] Comment on above: Performed By: #### C BCA, BMP, PINR, 86091-5, 98565-4, 3015-3, 7 #### [facility] ([id number]) [address] [place] [address] 92750 #### HA1C #### [facility] ([id number]) [address] [facility], [address] [place] [address] MCH (RBC) [Entitic mass] 31.7 pg Normal 27-34 [facility] Comment on above: Performed By: #### C BCA, BMP, PINR, 25879-8, 09084-6, 3015-3, 7 #### [facility] ([id number]) [address] [place] [address] 47104 #### HA1C #### [facility] ([id number]) [address], [address] [place] [address] MCHC (RBC) [Mass/Vol] 34.1 g/dL Normal 32-36 [facility] Comment on above: Performed By: #### C BCA, BMP, PINR, 00230-5, 26376-9, 3016-3, 3024-7 #### [facility] ([id number]) [address] [place] [address] 20426 #### HA1C #### [facility] ([id number]) [address], [address] [place] [address] MCV (RBC) [Entitic vol] 93 fL Normal 80-100 [facility] Comment on above: Performed By: #### C BCA, BMP, PINR, 67352-7, 42291-0, 3016-3, 3024-7 #### [facility] ([id number]) [address] [place] [address] 59392 #### HA1C #### [facility] ([id number]) [address], [address] [place] [address] Monocytes (Bld) [#/Vol] 0.5 10*3/uL Normal 0-0.9 [facility] Comment on above: Performed By: #### C BCA, BMP, PINR, 49705-1, 54521-8, 3016-3, 3024-7 #### [facility] ([id number]) [address] [place] [address] 94761 #### HA1C #### [facility] ([id number]) [address], [address] [place] [address] Monocytes/100 WBC (Bld) 9.9 % Normal [facility] Comment on above: Performed By: #### C BCA, BMP, PINR, 05312-9, 29614-5, 3015-3, 7 #### [facility] ([id number]) [address] [place] [address] 58287 #### HA1C #### [facility] ([id number]) [address], [address] [place] [address] Neutrophils/100 WBC (Bld) 43.7 % Normal [facility] Comment on above: Performed By: #### C BCA, BMP, PINR, 48569-7, 61546-1, 3015-3, 7 #### [facility] ([id number]) [address] [place] [address] 77404 #### HA1C #### [facility] ([id number]) [address], [address] [place] [address] Platelet mean volume (Bld) [Entitic vol] 8.2 fL Normal 7-12 [facility] Comment on above: Performed By: #### C BCA, BMP, PINR, 18365-3, 69919-5, 3015-10, 3024-02 #### [facility] ([id number]) [address] [place] [address] 83967 #### HA1C #### [facility] ([id number]) [address], [address] [place] [address] Platelets (Bld) [#/Vol] 150 10*3/uL Normal 150-450 [facility] Comment on above: Performed By: #### C BCA, BMP, PINR, 73106-1, 95454-5, 3015-10, 7 #### [facility] ([id number]) [address] [place] [address] 65508 #### HA1C #### [facility] ([id number]) [address], [address] [place] [address] RBC COUNT 4.41 X10E12/L Normal 4.10-5.70 [facility] Comment on above: Performed By: #### C BCA, BMP, PINR, 18075-9, 25071-9, 3016-3, 3024-7 #### [facility] ([id number]) [address] [place] [address] #### HA1C #### [facility] ([id number]) [address], [address] [place] [address] WBC (Bld) [#/Vol] 5.4 10*3/uL Normal 4.0-11.0 [facility] Comment on above: Performed By: #### C BCA, BMP, PINR, 48445-4, 15375-3, 3016-3, 3024-7 #### [facility] ([id number]) [address] [place] [address] #### HA1C #### [facility] ([id number]) [address], [address] [place] [address] CT CTA CAROTIDon 04-17-[address] CTA CAROTID History: Neuro deficit, acute, stroke suspected. Slurred speech Exam/Technique: CT angiogram performed following intravenous administration of 100 mL of Omnipaque 350. Coronal and sagittal and 3-D volume rendered maximum intensity projection images generated and reviewed under concurrent physician supervision. Automated exposure control utilized. The [place] Symptomatic Carotid Endarterectomy Trial (NASCET) method for [...] Armenta MD on 04/17/2024 9:08 AM Normal [facility] CT CTA HEADon 04-17-2024 CT CTA [...] posterior cerebral arteries. 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 Unremarkable vertebral, basilar arteries. 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 Unremarkable appearance of the orbits, visualized suprahyoid neck, scalp, brain parenchyma [which is suboptimally assessed]. Impression: No acute large vessel occlusion the major [place] arterial structures. If there is persistent concern for ischemia, recommend MR. All CT scans at this facility use dose modulation, iterative reconstruction, and/or weight based dosing when appropriate to reduce radiation dose to as low as reasonably achievable. Finalized by Lázaro Solomon MD on 04/17/2024 9:00 AM Normal [facility] FREE T4on 04-17-2024 Free T4 [Mass/Vol] 0.91 ng/dL Normal 0.61-1.60 [facility] Comment on above: Performed By: #### C BCA, BMP, PINR, 12942-3, 27740-7, 3016-3, 302-7 #### [facility] ([id number]) [address] [place] [address] 10127 #### HA1C #### [facility] ([id number]) [address] [facility], [address] [place] [address] Glucose Glucometer (BldC) [M ass/Vol]on 04-17-2024 Glucose [Mass/Vol] 94 mg/dL Normal 65-99 [facility] HGB A1C (GLYCO-HGB)on 2023 Glucose [Mass/Vol] 134 mg/dL Normal [facility] Comment on above: Performed By: #### C BCA, BMP, PINR, 54154-6, 65299-4, 3015-3, 3024-02 ####[facility] ([id number])[address] [place] [address] 35554#### HA1C ####[facility] ([id number])[address] [facility], [address] [place] [address] HbA1c (Bld) [Mass fraction] 6.3 % High 4.4-5.6 [facility] Comment on above: Result Comment: NOTE ADA Guidelines Result HgbA1c Normal : less than 5.7 % Prediabetes : 5.7 % to 6.4 % Diabetes : > 6.4 % Use with caution in patients with abnormal hemoglobin variants as the half-life of red blood cells and in vivo glycation rates are affected. Performed By: #### C BCA, BMP, PINR, 83358-8, 95935-4, 3016-3, 302-7 ####[facility] ([id number])[address] [place] [address] 17333#### HA1C ####[facility] ([id number])[address] [address] Lipid 1996 panelon 4 Cholesterol [Mass/Vol] 121 mg/dL Low 150-200 [facility] Comment on above: Performed By: #### 8 9579-7 ####[facility] ([id number])[address] [place] [address] 21250#### 45387-1, 54307-2, 37529-5 ####[facility] ([id number])[address] [place] [address] Cholesterol in HDL [Mass/Vol] 34 mg/dL Low >39 [facility] Comment on above: Result Comment: HDL <40 mg/dL - High Risk HDL > or = 40mg/dL- Desirable HDL >60 mg/dL - Negative Risk Performed By: #### 8 9579-7 ####[facility] ([id number])[address] [place] [address]51#### 46258-3, 31689-4, 85823-2 ####[facility] ([id number])[address] [address] Cholesterol in LDL [Mass/Vol] 43 mg/dL Normal <130 [facility] Comment on above: Result Comment: LDL <100 mg/dL - Desirable LDL >160 mg/dL - High Risk Performed By: #### 8 9579-7 ####[facility] ([id number])[address] [place] [address]#### 98252-1, 52630-5, 43304-6 ####[facility] ([id number])[address], [address] [place] [address] Cholesterol in VLDL [Mass/Vol] 44 mg/dL High 0-30 [facility] Comment on above: Performed By: #### 8 9579-7 ####[facility] ([id number])[address] [place] [address]#### 70658-9, 73325-0, 88612-4 ####[facility] ([id number])[address] [facility], [address] [place] [address] CHOLESTEROL:HDL 3.6 Normal 1.0-5.0 [facility] Comment on above: Performed By: #### 8 9579-7 ####[facility] ([id number])[address] [place] [address] 18654#### 88978-1, 15108-6, 88687-7 ####[facility] ([id number])[address] [facility], [address] [place] [address]30 Triglyceride [Mass/Vol] 218 mg/dL High 27-150 [facility] Comment on above: Performed By: #### 8 9579-7 ####[facility] ([id number])[address] [place] [address] 18486#### 48973-1, 03685-2, 10248-0 ####[facility] ([id number])[address] [facility], [address] [place] [address] MR BRAIN WO CONTon 4 MR BRAIN [...] midline shift or extra axial fluid collection. [id number] central greater than peripheral volume loss. Partially [...] Chi Hendrix on 04/17/2024 12:22 PM Normal [facility] Nuclear Ab IA Ql (S)on 04-17 [place] Screen w/reflex Negative Normal NEG [facility] Comment on above: Result Comment: Testing performed using multiplex flow immunoassay. Eleven different antigens associated with systemic autoimmune diseases (dsDNA,Sm,Sm/DIET ASSISTANT,DIET ASSISTANT,Chromatin, SSA,SSB,Vesna-1,Scl70,Ribo P,Centromere B) are included in this screening test. Performed By: #### 8 9579-7 ####[facility] ([id number])[address] [place] [address]#### 59500-3, 57023-4, 71592-1 ####[facility] ([id number])[address] [facility], [address] [place] [address]202 PROTIME AND INRon 04-17-2024 INR Coag (PPP) [Relative time] 1.2 {INR} High 0.8-1.1 [facility] Comment on above: Performed By: #### C BCA, BMP, PINR, 13234-5, 16512-0, 3016-3, 3024-7 #### [facility] ([id number]) [address] [place] [address] 38640 #### HA1C #### [facility] ([id number]) [address], [address] [place] [address] PT Coag (PPP) [Time] 13.6 s High 9.8-13.2 [facility] Comment on above: Result Comment: NEW REFERENCE RANGE Performed By: #### C BCA, BMP, PINR, 49042-3, 86753-2, 3016-3, 3024-7 #### [facility] ([id number]) [address] [place] [address] 48909 #### HA1C #### [facility] ([id number]) [address] [facility], [address] [place] [address] Rheumatoid factor Nephelomet ry Qn (S)on 04-17-2024 RHEUMATOID FACTOR 36 IU/mL High <20 [facility] Comment on above: Performed By: #### 8 9579-7 ####[facility] ([id number])[address] [place] [address]#### 31485-4, 61670-4, 73502-5 ####[facility] ([id number])[address], [address] [place] [address]19[address] TSH Qnon 04-17-2024 TSH 1.23 uIU/mL Normal 0.49-4.67 [facility] Comment on above: Performed By: #### C BCA, BMP, PINR, 27299-9, 39820-9, 3016-3, 3024-7 #### [facility] ([id number]) [address] [place] [address] 80301 #### HA1C #### [facility] ([id number]) [address], [address] [place] [address] Troponin I.cardiac High sens itivity method [Mass/Vol]on 04-17-2024 1 HOUR TROP I, HIGH SENSITIVITY 8 ng/L Normal <21 [facility] Comment on above: Performed By: #### 8 9579-7 ####[facility] ([id number])[address] [place] [address]#### 22686-1, 05290-0, 59441-8 ####[facility] ([id number])[address] [facility], [address], [place] [address] TROPONIN I, HIGH SENSITIVITY 7 ng/L Normal <21 [facility] Comment on above: Performed By: #### C BCA, BMP, PINR, 93034-3, 09617-6, 3016-3, 3024-7 #### [facility] ([id number]) [address] [place] [address] 74833 #### HA1C #### [facility] ([id number]) [address] [facility], [address] [place] [address] aPTT Coag (PPP) [Time]on aPTT Coag (Bld) [Time] 29 s Normal 26-37 [facility] Comment on above: Result Comment: NEW REFERENCE RANGE Performed By: #### C BCA, BMP, PINR, 57680-3, 56768-6, 3016-3, 3024-7 #### [facility] ([id number]) [address] [place] [address] 99801 #### HA1C #### [facility] ([id number]) [address] [facility], [address] [place] [address] Urology Office/Clinic Noteon 03-20-2024 Urology Office/Clinic Note Urology Office/Clinic Note Chief Complaint ER f/u *Urinary Retention HPI Staff PRW pt Last seen in our office by INEZ 02/11/24 DX: BPH, Urethral Stricture, Gross Hematuria & UTI PVR at that time 108ml Here today to follow up to [facility] ER 03/11/24 CC: Urinary Retention PVR [...] (cc): 02/11/24 - 108 Pt presented to [facility] ER 03/11/24 with UR. PVR >230 [...] solution) fluticasone nasal (fluticasone Nasal 0.05 mg/inh Leming) hyoscyamine (hyoscyamine 0.125 mg sublingual Tab) icosapent [...] 11:30 AM EDT With: KIM Lino APRN, Lazara Echavarria Where: [facility] [address] [place] [address]- You Need to Schedule the Following Appointments [...] fluticasone nasal (fluticasone Nasal 0.05 mg/ inh Leming) instill 1 spray into each nostril once [...] urinary ret (more content not included)... Normal [facility] Coding Summary.on 02-19-2024 Coding Summary. IEFNShko88UOa7hEw+PG hl YWQ+YP8GTUEfO30nwTRyrX 2mA6HCXSeSXpkgADEMYMyM XcUfhdWdIU5gbREiPQBq IC8+HS5mLHIuGflgvWUwt1 N8sVV2Y52kof7dVOevoLP5 UHIoXtEcelqax5xckVs7KF cuNmluOyBt OLTmsW20GAF2sP58Hd19yC XciSAmn1kfpFk2CoTtNSCn EBO0eSxfCPnrf4AhPVQrL6 4bcOGjj4Y2 GJBucJrjwWTaQoRgbCB7rE 8aSWyyrvjdi2gleupgAye2 az15uXEqf7M5sTG7W7Wgxc D1LWLyoJDx XzpcbNPFqG3pajhyr1wprd nsYgSqRDQwYMi5JOp9MNWt qBsfOcJhNS62QVY6OHPtzt ZwU9NsMNQx sGgbTdR5l3I4Ip9CN7KLAy caJ6VPDXUFUOytaHL+PC90 qv59G6ZxGxudJfs3IEPuWA L2yMV8bJ2p RCTcCXqdr0V2uAY5Q6Jinw Mvjk7vh8faDWLvPCutG41r tSHde3U9GXZrtZX3HMUncR yuSdQlvB60 Oyc+JMNiyKlzd5LdUkdhe0 css9vpyBg8PbylLOLnudAr dLsjFSH9k2PjOn0qJHIvwS K6eLM3vH6v NeFcNvB7SErkF737TbWzgH FiYvhyW65rM2DqlBJ+PHRy Qmj8OOPouUqsXI1qI1WvWT RpbmctbGVm aMjrHL5nAOUznqepFSFrvJ 6pMECgP8z3PeWoIcT6MHde N6IbRMNvajygIs36fK8lUu QcFtR0SKyq A3NracI4TEXfuMJxNAefTN W7V85de2W1ADMqTKIhEDI4 wIX5xH5mzQzjozitqXHllK sgdmVydGlj VOmdXLfyA091ZRBtoSxpBj NvZGluZyBEYXRlOiAgMDYv MjYvMjAyNDwvdGQ+PHRkIH T0aHlmDGDw aOMwEYorSy6tqVjvcYrgGB 2cNJBywusuBINtnI0aWZXh lNNatKtkOO3xQICsniekz9 15VzQlGTB1 TWIqgSAnI8CbuW7uTcBxPI PbAQIuM6YjaNNdCOheZ820 FYzmIlU5KQPhuiMuV8IiQF FsaWduOiB0 y5N6Oh1Em4YkrtkpW8FfmK RnYvOfWlgmHVx5T9ZyUiyb dHI+IG61ZKVrJW06BSp5SA Q9dBqrTBph LVNkM9UmmU0eUvZqKRFdKO RkOyc+PHRhYmxlIHdpZHRo AKxwJWSbJsAtkVyoNT1bJb 9yZGVyLWNv bQxgqFZlDjMbi7tpUIIzXM glVU7hnOclB3AapIU2IPUc t5t4Mf01V59lL3QcrNV+PG PpfBP9zJL6 vJ5hBcXiAhN6SZwxV558Kz NuoVMhKjarc5jym2gvbKj8 UbT4DZYbruZbbQmpHSU0l3 LyZd95Z62a IHdpZHRoPSIxNSUiIHZhbG jgmf3doP1yOe4+PGNvbCB3 fTU8tQ3qFoMyWsO9TPxdB8 49InRvcCIv Bapwg5qdl6qbwEs9HsVkSX PrddRdaKnyCKJ7u8OqRj32 F1MmrZruj1MrDft4gy64oG Osv5F9hDC0 M1RmRKVkkflgbYUcoQbnAP 0pHZUkzfelKKDtjA2dNMLn S6t5FrNcGzX1KQobI8Nouk Y1VHQmiSZi CDTaoQXQeV7vmnstk5hxgp raEpZdXKAvWQp9NXj1LASc hFygVuAaPNL3DyA3QFY7bM VuwK5fzJos hlajoT5nFuk+OJH3mXNdbC FRNJ4hJdyulBF+PHRkIHN0 eQqoGMzvJSAdhL4yERJdU3 r1HuVuNxP9 EMimN4ItsnV2BAQftFBuJO KrnGHBlI2zjnuqh9nbldjj EiCdOTSpRPa5ZMm1YZClvI duOiBsZWZ0 PuS9HPE8zXJblQ9egGgjro mxoQ6lUbg+QmlydGggRGF0 IFo3Q8OnNkg7LYJvpHczHX 0ncGFkZGlu Ig4phRrxoXryDN9pHNEldm uvv889BdDie0rcJATaaVZu JAodJKK0E47op9H7KRJrZU ArTVE0gPP0 cE5poLijofetdMJaqDgwyi QtuBvpJVajWKvgZ143LAYn nOizHrRpSOx1O1UeItu6GN DniKyzAA4z fNYaYRbvOf3cqBdjcXtwOQ 4vODYsdnkqi090QzBnj0el GXXdtGMaUEubEVY0R98uo8 N3LTDyAPPk BKE6hPZ3vM4lmQnchesnuH VmdDsgdmVydGljYWwtYWxp P571CYOrkOenOoFyzBf0O1 LkNnb8FJUi nMcpOR5faTGbHMukQg1ibH mbnGhsMR0pLQWmsgzqb913 TpBtw2fpKVDdsGDfPLobTW I5E63rt1S1 AZZiWHAhJOT7hVK3eQ8kjE lnbjogbGVmdDsgdmVydGlj PKduWWnyP238MXKqwEfkRl BhdGllbnQg EJmfDAx4U8PzIaltzPL+PC 98IYBcRN77zPFtbEIri5zt nEx3DpYzSQQkVZN1nVgvJZ crd8QhFINl G18ybEAad6L5YCMqsVnzqG ApOzPmeND9dZ0bLUleloka g4xkxmojDvfcx8pqxs49bG 52E75cZTrg ZHRoPSIzMCUiIHZhbGlnbj 8wwX7fLj4+NIPxrQV1dTJ8 xP8nXFGlIqJ2VVkpL596Em RvcCIvPjxj h4ppv2ltoQi7KsA2RGNmvu RybXweQMY5f3LjRf56X38o IHdpZHRoPSIyMCUiIHZhbG mfdl8hxL9y Ii8+PROltIN9uKO3nU4cAf YiNlC9SCsdX155XgSqaUWd MridA07kO0WguJZ+PHRyPj v9DHGrlAjd RS0ppFPpMBtqWw8eXOK3Oi VjWcEzNNqjR6EjTIGvcekk nquikVB2QYZzUSTxbN48Wc 9udDogMTBw nPAIbK6wtikif3dffvwtYi RtYINaWPi5QQj6FLQxaPvq XfVsKOY8YjA1EYN9uBOalK 1hbGlnbjog vY3cH2DeMCVcwzncYy43nE 4xXxYnRqX4CIirVjw+U1VU KT3CXNMZF783J2ZlJvv8SG VryAzuFU1f jVKdMNugJm9ncXdciJkmBO 4mCTEwjrxdDCQxuC8wOUXy rYXmsUryST9bACXjlzqeo7 11RoNzHTP1 VZSqpMVgP6LmkA1gIwUdKA MuQFDfZ5PhzIImNWawO239 BNrtIpK4EHRxypXbJ5PjAN FsaWduOiB0 v3H3Ez0wWP9uER4mQVFbEE 78LQ48cRSsv8L0aUU4X6Vi TLPhmgtwvhywkIU4DHXpTC NlmM55kCXn RHgeIe9wp0X9d436UWPbGO IsaH63Am6eiNyiTYDvfZNM qG4lyqqgg3gcutygPnPfHM WsPFk4JJq2 XGTskTlrTrAxWQT7DcE9WT N9xVOdzW9flIwwtlrowA0r Oyc+UBVeSPHddpA4L0AvSs s9AOZdpVfq RD2fqAEwJOivCg1ahHnweD dbMN9sIHPcqkyrEWHukR1d EBMduIKpoQhnOR7eIWRxxz acy964KtAx NML5NIKrnPZvG4FudH5bAv PoEPYqCWTgV4PnyUKaWAfq E384EYnsRpX9OGCnzmNfY1 FsLWFsaWdu YyU2p0B9Fr6OLJyrHQ75CU 31tGPho9A1tIA4S2HrFJHs byizakogfHN9BHFfKOZvtP 47cGFkZGlu Ih2kn8A2o872TCAdAEChgI 65Ks0bpVsuWSGwmIEGoQ5i urnrg8yrbzsgPePiKZIlJF y0OSg7JJAf bKjhBkKaXXL6CjO4WSK0yX IkrP2fuJogdigvaP4tKqs+ MIReONLit8Vjf0JgUE90IK 92C1GiNdco dGFibGU+PHRhYmxlIHdpZH MdKGpoPESnWmZaeBdtNI5x Bt3wJARmDBUylElotLBkUl Tfq5jgDYAr QTotCC7wpJbpQ0PuiBM7MA Aja1v8Kf37N09nR5HnaHS+ VGAleYT9nVM3pB2xMyKnEa G4TAimA357 PbQoaCFxAmydn5xkd6giyH c8TzDrJNFnzgDboYpoJBS7 r8ZfXt88R82iJEeiEOVdJR IyMCUiIHZh uUziyn6yaL2xBy2+PGNvbC Q5iXF6sY7lKuGyQdG4UCgt V073QqIjyXWbFcaaC20qL2 JvdXA+PHRy Pcb9VTHgvYbnIU0teFEgEO iqTv8gZZG1ZtYhAjZbQRta L5LtSMAwshcxsugojSH4EA BgZNLxdR69 Ja8pnGsqJl6sVIBuVFK3UF HzaEKzZ9UbeK4cMuKmWMVm BTZxO9PddLYyCCnpX103LP qlTrC8QRKb suQwF5PxDSGsqRmrGtU6q3 C1Qv6DdByguOXgKA1zUnLi QOh6K8EnYbn8BKIjyGdlVE 0ncGFkZGlu Mo1ifQtqdGkqLT0hBTHxbo rlx181OkPog5nsPOErnQSl YBtmUCC2W68do6J7PVQpBO VrHKK2dON0 jY7fqCxllzouaUHstLtpia ZdkCttCLvbIQpgR622FAGl vAzmZhAVIis4J6PiIbq8LN VvsCbyDU9r fJUbNQgyRm6bgCsgwVohUI 7gAVFbsemxv670QbVtu7ob JGMogNLnZDedCHI1G12dc3 I8HNSvKVNv DZA0iVY1uK6hrPpeljhlrJ VmdDsgdmVydGljYWwtYWxp I368OVXliXukAb1PXnp3X2 UtXhx7GAKc lKmxWR6apKWzDKftOj5glV zgxShwEA6zQOKrtirii565 XaMav5ilMIDwsVQgUUetKN G5F53by7Y0 WCGfKNTqLAZ3iNQ1xH1klK lnbjogbGVmdDsgdmVydGlj OBucFNpbN570WDSqnVmwJu BheWVyOjwv dGQ+UN01bn19O4MoIwgaDx s6FMCjWUT7qYW7mE9lRICi JMelp3E4oSP3K3IthiAmvf 6iv6wzDWZi IBfzV15zhFQrd (more content not included)... 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 00TIFF [facility] Ambulatory Visit Summaryon 0 02-11-2024 Ambulatory Visit [...] Where: [facility] [address], [place] [address] [phone] Medications What How Much When Instructions Unchanged [...] these instructions at home: Medicines ? Take uuga-tjw-ijjitqt and prescription medicines only as told by [...] the blood stops without treatment. ? Take tfwu-rue-svfsfww and prescription medicines only as told by your health care provider. ? Drink enough fluid to keep your urine pale yellow. This information is not intended to replace advice given to you by your health care provider. Make sure you discuss any questions you have with your health care provider. Document Revised: 04/12/2021 Document Reviewed: 04/12/2021 Section 101 Patient Education ? 2022 [employer] Writer. Benign Prostatic Hyperplasia Benign prostatic hyperplasia (BPH) [...] the nig (more content not included)... Normal [facility] Urology Office/Clinic Noteon 02-11-2024 Urology Office/Clinic [...] with voice recognition artificial intelligence software, specifically [employer] (P), [employer] and or [employer]ren[employer]. Substitutions may have occurred due to the [...] Urnls Dip Stick Auto w/o Microscopy POC 82159 2. Urethral stricture in male (N35.919: Unspecified [...] URL [facility] [address], [place] [address]- [phone] Additional Instructions: Patient Education Hematuria, Adult Benign [...] Rhopressa 0.02% (more content not included)... Normal [facility] Comment on above: Result Comment: Elec tronically Signed By: KIM Lino APRN, Lazara Echavarria\.br\Date and Time Signed: 02/11/24 10:41 EDT COVID/FLU RT-PCRon 3 SARS-CoV-2 (COVID-19) RNA TERRIE+probe Ql (Unsp spec) Positive [employer] Other COVID/FLU RT-PCR Negative Real Time Content Other XR KNEE RT 3Von 01-23-2023 XR KNEE RT 3V EXAM: XR KNEE RT 3V HISTORY: Osteoarthritis of knee COMPARISON: None TECHNIQUE: 3 views FINDINGS: No acute fracture or dislocation. Moderate to severe degenerative changes. Unremarkable soft tissues. IMPRESSION: Moderate to severe degenerative changes. Electronically authenticated by: CALVIN BARNES Date: 2023-01-23 13:29 Normal [facility] INSULINon 09-25-2022 Insulin 6.0 uIU/mL Normal 2.6-24.9 [facility] Comment on above: Performed By: #### I NSULIN #### [facility] [address] [place] [address] Dr. Wally Zapien BNPon 09-24-2022 Natriuretic peptide B (Bld) [Mass/Vol] 110.0 pg/mL Normal <=1,800.0 [facility] Comment on above: Performed By: #### U RCX #### [facility] [address] [place] [address] Dr. Wally Zapien CBC AUTO DIFFon 09-24-2022 BASO # 0.0 103/ul Normal 0.0-0.1 [facility] Comment on above: Performed By: #### C BC #### [facility] [address] [place] [address] Dr. Wally Zapien Basophils/100 WBC (Bld) 1.0 % Normal 0.2-2.0 [facility] Comment on above: Performed By: #### C BC #### [facility] [address] [place] [address] Dr. Wally Zapien EO # 0.2 103/ul Normal 0.0-0.7 [facility] Comment on above: Performed By: #### C BC #### [facility] [address] [place] [address] Dr. Wally Zapien Eosinophils/100 WBC (Bld) 4.2 % Normal 0.9-7.0 [facility] Comment on above: Performed By: #### C BC #### [facility] [address] [place] [address] Dr. Wally Zapien Erythrocyte distribution width (RBC) [Ratio] 12.5 % Normal 11.0-15.0 [facility] Comment on above: Performed By: #### C BC #### [facility] [address] [place] [address] Dr. Wally Zapien Hematocrit (Bld) [Volume fraction] 43.7 % Normal 42.0-54.0 [facility] Comment on above: Performed By: #### C BC #### [facility] [address] [place] [address] Dr. Wally Zapien Hemoglobin (Bld) [Mass/Vol] 15.4 g/dL Normal 14.0-18.0 [facility] Comment on above: Performed By: #### C BC #### [facility] [address] [place] [address] Dr. Wally Zapien IG # 0.02 10e3/ul Normal 0.00-0.03 [facility] Comment on above: Performed By: #### C BC #### [facility] [address] [place] [address] Dr. Wally Zapien IG % 0.5 % Normal 0.0-0.5 [facility] Comment on above: Performed By: #### C BC #### [facility] [address] [place] [address] Dr. Wally Zapien LYMPH # 1.7 103/ul Normal 1.2-3.8 [facility] Comment on above: Performed By: #### C BC #### [facility] [address] [place] [address] Dr. Wally Zapien Lymphocytes/100 WBC (Bld) 42.6 % Normal 20.5-60.0 [facility] Comment on above: Performed By: #### C BC #### [facility] [address] [place] [address] Dr. Wally Zapien MANUAL DIFF REQ NO Normal [facility] Comment on above: Performed By: #### C BC #### [facility] [address] [place] [address] Dr. Wally Zapien MCH (RBC) [Entitic mass] 31.6 pg Normal 25.9-34.0 [facility] Comment on above: Performed By: #### C BC #### [facility] [address] [place] [address] Dr. Wally Zapien MCHC (RBC) [Mass/Vol] 35.2 g/dL Normal 29.9-35.2 [facility] Comment on above: Performed By: #### C BC #### [facility] [address] [place] [address] Dr. Wally Zapien MCV (RBC) [Entitic vol] 89.5 fL Normal 80.0-94.0 [facility] Comment on above: Performed By: #### C BC #### [facility] [address] [place] [address] Dr. Wally Zapien MONO # 0.4 103/ul Normal 0.3-0.8 [facility] Comment on above: Performed By: #### C BC #### [facility] [address] [address] [address] Wally Zapien Monocytes/100 WBC (Bld) 9.2 % Normal 1.7-12.0 [facility] Comment on above: Performed By: #### C BC #### [facility] [address] [address] [address] Wally Zapien NEUT # 1.7 103/ul Normal 1.4-6.5 [facility] Comment on above: Performed By: #### C BC #### [facility] [address] [address] [address] Wally Zapien Neutrophils/100 WBC (Bld) 42.5 % Critically low 43.0-75.0 [facility] Comment on above: Performed By: #### C BC #### [facility] [address] [place] [address] Dr. Wally Zapien Platelet mean volume (Bld) [Entitic vol] 9.9 fL Normal 9.5-13.5 [facility] Comment on above: Performed By: #### C BC #### [facility] [address] [place] [address] Dr. Wally Zapien PLT 149 103/ul Critically low 150-450 [facility] Comment on above: Performed By: #### C BC #### [facility] [address] [place] [address] Dr. Wally Zapien RBC 4.88 106/ul Normal 4.70-6.10 [facility] Comment on above: Performed By: #### C BC #### [facility] [address] [place] [address] Dr. Wally Zapien WBC 4.0 103/ul Normal 4.0-11.0 [facility] Comment on above: Performed By: #### C BC #### [facility] [address] [place] [address] Dr. Wally Zapien CULTURE URINEon 09-24-2022 CULTURE URINE Culture Observations : LIGHT GROWTH OF MIXED SKIN GENNA. NO POTENTIAL PATHOGENS SEEN. Normal [facility] Comment on above: Performed By: #### U RCX #### [facility] [address] [address] [address] Wally Zapien FREE THYROXINE INDEX T7on 0 09-24-2022 FTI 2.52 Normal 1.30-4.50 [facility] Comment on above: Performed By: #### U RCX #### [facility] [address] [place] [address] Dr. Wally Zapien T3U 36.0 % Normal 33.0-40.0 [facility] Comment on above: Performed By: #### U RCX #### [facility] [address] [place] [address] Dr. Wally Zapien T4 [Mass/Vol] 7.00 ug/dL Normal 4.50-12.10 [facility] Comment on above: Performed By: #### U RCX #### [facility] [address] [place] [address] Dr. Wally Zapien GLYCOHEMOGLOBIN A1Con 2022 ADA RECOMMENDATION SEE BELOW Normal [facility] Comment on above: Result Comment: ADA RECOMMENDED LIMIT 4.0 - 6.0 ADA THERAPEUTIC TARGET < 7.0 ACTION SUGGESTED > 7.0 Performed By: #### A 1C #### [facility] [address] [place] [address] Dr. Wally Zapien Glucose [Mass/Vol] 123 mg/dL Normal [facility] Comment on above: Performed By: #### A 1C #### [facility] [address] [place] [address] Dr. Wally Zapien HbA1c (Bld) [Mass fraction] 5.9 % Normal 4.5-6.2 [facility] Comment on above: Performed By: #### A 1C #### [facility] [address] [place] [address] Dr. Wally Zapien LIPID PROFILEon 09-24-2022 CHOL-HDL RATIO NORM SEE BELOW Normal [facility] Comment on above: Result Comment: 3.3 - 4.4 LOW RISK 4.4 - 7.1 AVERAGE RISK 7.1 - 11.0 MODERATE RISK >11.0 HIGH RISK Performed By: #### U RCX #### [facility] [address] [address] [address] Wally Zapien Cholesterol [Mass/Vol] 117 mg/dL Normal <=200 [facility] Comment on above: Performed By: #### U RCX #### [facility] [address] [place], [place] [address] Dr. Wally Zapien Cholesterol in HDL [Mass/Vol] 38 mg/dL Critically low 40-60 [facility] Comment on above: Performed By: #### U RCX #### [facility] [address] [address] [address] Wally Zapien Cholesterol in LDL [Mass/Vol] 32.6 mg/dL Normal [facility] Comment on above: Performed By: #### U RCX #### [facility] [address] [address] [address] Wally Zapien Cholesterol.total/C holesterol in HDL [Mass ratio] 3.1 {ratio} Normal [facility] Comment on above: Performed By: #### U RCX #### [facility] [address] [address] [address] Wally Zapien HDL NORMAL > or = 60 mg/dl - LO W CARDIOVASCULAR RISK <40 mg/dl - HIGH CARDIOVASCULAR RISK Normal [facility] Comment on above: Performed By: #### U RCX #### [facility] [address] [address] [address] Wally Zapien LDL CALC NORMAL SEE BELOW Normal [facility] Comment on above: Result Comment: <100 mg/dl OPTIMAL 100 - 129 mg/dl NEAR OR ABOVE OPTIMAL 130 - 159 mg/dl BORDERLINE HIGH 160 - 189 mg/dl HIGH >190 mg/dl VERY HIGH Performed By: #### U RCX #### [facility] [address] [address] [address] Wally Zapien Triglyceride [Mass/Vol] 232 mg/dL Critically high <=150 [facility] Comment on above: Performed By: #### U RCX #### [facility] [address] [address] [address] Wally Zapien VLDL CALC 46.4 mg/dL Normal [facility] Comment on above: Performed By: #### U RCX #### [facility] [address] [place] [address] Dr. Wally Zapien PROF 14(COMP METB)on 023 Albumin [Mass/Vol] 3.8 g/dL Normal 3.4-5.0 [facility] Comment on above: Performed By: #### B BUTTON PUSHER, T7, LIPID, TSH, CMP, URIC #### [facility] [address] [place] [address] Dr. Wally Zapien Albumin/Globulin [Mass ratio] 1.2 {ratio} Normal [facility] Comment on above: Performed By: #### B BUTTON PUSHER, T7, LIPID, TSH, CMP, URIC #### [facility] [address] [place] [address] Dr. Wally Zapien ALP [Catalytic activity/Vol] 80 U/L Normal 46-116 [facility] Comment on above: Performed By: #### B BUTTON PUSHER, T7, LIPID, TSH, CMP, URIC #### [facility] [address] [place] [address] Dr. Wally Zapien ALT [Catalytic activity/Vol] 34 U/L Normal 16-63 [facility] Comment on above: Performed By: #### B BUTTON PUSHER, T7, LIPID, TSH, CMP, URIC #### [facility] [address] [place] [address] Dr. Wally Zapien Anion gap [Moles/Vol] 11.3 mmol/L Normal [facility] Comment on above: Performed By: #### B BUTTON PUSHER, T7, LIPID, TSH, CMP, URIC #### [facility] [address] [place] [address] Dr. Wally Zapien AST [Catalytic activity/Vol] 24 U/L Normal 15-37 [facility] Comment on above: Performed By: #### B BUTTON PUSHER, T7, LIPID, TSH, CMP, URIC #### [facility] [address] [place] [address] Dr. Wally Zapien Bilirubin [Mass/Vol] 1.0 mg/dL Normal 0.2-1.0 [facility] Comment on above: Performed By: #### B BUTTON PUSHER, T7, LIPID, TSH, CMP, URIC #### [facility] [address] [address] [address] Wally Zapien Calcium [Mass/Vol] 8.5 mg/dL Normal 8.5-10.1 [facility] Comment on above: Performed By: #### B BUTTON PUSHER, T7, LIPID, TSH, CMP, URIC #### [facility] [address] [place] [address] Dr. Wally Zapien Chloride [Moles/Vol] 105 mmol/L Normal 98-107 [facility] Comment on above: Performed By: #### B BUTTON PUSHER, T7, LIPID, TSH, CMP, URIC #### [facility] [address] [place] [address] Dr. Wally Zapien CO2 [Moles/Vol] 28.6 mmol/L Normal 21.0-32.0 [facility] Comment on above: Performed By: #### B BUTTON PUSHER, T7, LIPID, TSH, CMP, URIC #### [facility] [address] [place] [address] Dr. Wally Zapien Creatinine [Mass/Vol] 0.74 mg/dL Normal 0.70-1.30 [facility] Comment on above: Performed By: #### B BUTTON PUSHER, T7, LIPID, TSH, CMP, URIC #### [facility] [address] [place] [address] Dr. Wally Zapien EGFR-AF BHUTANESE >60 Normal >=60 [facility] Comment on above: Performed By: #### B BUTTON PUSHER, T7, LIPID, TSH, CMP, URIC #### [facility] [address] [place] [address] Dr. Wally Zapien EGFR-NON AF BHUTANESE >60 Normal >=60 [facility] Comment on above: Performed By: #### B BUTTON PUSHER, T7, LIPID, TSH, CMP, URIC #### [facility] [address] [place] [address] Dr. Wally Zapien Globulin (S) [Mass/Vol] 3.2 g/dL Normal [facility] Comment on above: Performed By: #### B BUTTON PUSHER, T7, LIPID, TSH, CMP, URIC #### [facility] [address] [address] [address] Wally Zapien Glucose [Mass/Vol] 102 mg/dL Normal 74-106 [facility] Comment on above: Performed By: #### B BUTTON PUSHER, T7, LIPID, TSH, CMP, URIC #### [facility] [address] [place] [address] Dr. Wally Zapien Potassium [Moles/Vol] 3.9 mmol/L Normal 3.5-5.1 [facility] Comment on above: Performed By: #### B BUTTON PUSHER, T7, LIPID, TSH, CMP, URIC #### [facility] [address] [address] [address] Wally Zapien Protein [Mass/Vol] 7.0 g/dL Normal 6.4-8.2 [facility] Comment on above: Performed By: #### B BUTTON PUSHER, T7, LIPID, TSH, CMP, URIC #### [facility] [address] [place] [address] Dr. Wally Zapien Sodium [Moles/Vol] 141 mmol/L Normal 136-145 [facility] Comment on above: Performed By: #### B BUTTON PUSHER, T7, LIPID, TSH, CMP, URIC #### [facility] [address] [place] [address] Dr. Wally Zapien Urea nitrogen [Mass/Vol] 19.0 mg/dL Critically high 7.0-18.0 [facility] Comment on above: Performed By: #### B BUTTON PUSHER, T7, LIPID, TSH, CMP, URIC #### [facility] [address] [place] [address] Dr. Wally Zapien Urea nitrogen/Creatinine [Mass ratio] 25.7 mg/mg Normal [facility] Comment on above: Performed By: #### B BUTTON PUSHER, T7, LIPID, TSH, CMP, URIC #### [facility] [address] [place] [address] Dr. Wally Zapien TSHon 09-24-2022 TSH 1.535 uIU/mL Normal 0.358-3.740 [facility] Comment on above: Performed By: #### U RCX #### [facility] [address] [address] [address] Wally Zapien UA RANDOM W/MICROSCOPICon BACTERIA NONE SEEN Normal NONE SEEN [facility] Comment on above: Performed By: #### U RCX #### [facility] [address] [address] [address] Wally Zapien Bilirubin Ql (U) Negative Normal NEGATIVE [facility] Comment on above: Performed By: #### U RCX #### [facility] [address] [address] [address] Wally Zapien CAST NONE SEEN Normal NONE SEEN [facility] Comment on above: Performed By: #### U RCX #### [facility] [address] [address] [address] Wally Zapien Clarity (U) CLEAR Normal CLEAR [facility] Comment on above: Performed By: #### U RCX #### [facility] [address] [address] [address] Wally Zapien Color (U) YELLOW Normal YELLOW [facility] Comment on above: Performed By: #### U RCX #### [facility] [address] [address] [address] Wally Zapien Crystals LM Nom (Urine sed) NONE SEEN Normal NONE SEEN [facility] Comment on above: Performed By: #### U RCX #### [facility] [address] [address] [address] Wally Zapien Epithelial cells LM Ql (Urine sed) FEW Abnormal NONE SEEN /RARE [facility] Comment on above: Performed By: #### U RCX #### [facility] [address] [address] [address] Wally Zapien Glucose Ql (U) Negative Normal NEGATIVE [facility] Comment on above: Performed By: #### U RCX #### [facility] [address] [address] [address] Wally Zapien Hemoglobin Ql (U) TRACE-INTACT Abnormal NEGATIVE [facility] Comment on above: Performed By: #### U RCX #### [facility] [address] [place] [address] Dr. Wally Zapien Ketones Ql (U) Negative Normal NEGATIVE [facility] Comment on above: Performed By: #### U RCX #### [facility] [address] [place] [address] Dr. Wally Zapien LEUKOCYTES Negative Normal NEGATIVE [facility] Comment on above: Performed By: #### U RCX #### [facility] [address] [place] [address] Dr. Wally Zapien MUCOUS LARGE Abnormal NONE SEEN [facility] Comment on above: Performed By: #### U RCX #### [facility] [address] [place] [address] Dr. Wally Zapien Nitrite Ql (U) Negative Normal NEGATIVE [facility] Comment on above: Performed By: #### U RCX #### [facility] [address] [place] [address] Dr. Wally Zapien pH (U) 6.5 [pH] Normal 5-9 [facility] Comment on above: Performed By: #### U RCX #### [facility] [address] [place] [address] Dr. Wally Zapien RBC 2-5 Abnormal 0-2 [facility] Comment on above: Performed By: #### U RCX #### [facility] [address] [place] [address] Dr. Wally Zapien SPEC GRAVITY 1.025 Normal 1.005-<=1.02 5 [facility] Comment on above: Performed By: #### U RCX #### [facility] [address] [place] [address] Dr. Wally Zapien UA PROTEIN TRACE Normal NEGATIVE/ TRACE [facility] Comment on above: Performed By: #### U RCX #### [facility] [address] [place] [address] Dr. Wally Zapien Urobilinogen Qn (U) 1.0 {Suma'U}/dL Normal 0.2 - 1. 0 [facility] Comment on above: Performed By: #### U RCX #### [facility] [address] [place] [address] Dr. Wally Zapien WBC 0-2 Abnormal NONE SEEN [facility] Comment on above: Performed By: #### U RCX #### [facility] [address] [place] [address] Dr. Wally Zapien URIC ACID SERUMon 09-24-2022 Urate [Mass/Vol] 3.7 mg/dL Normal 3.5-7.2 [facility] Comment on above: Performed By: #### B BUTTON PUSHER, T7, LIPID, TSH, CMP, URIC #### [facility] [address] [place] [address] Dr. Wally Zapien VITAMIN D 25 OHon 09-24-2022 VIT D 25-OH 42.6 ng/mL Normal [facility] Comment on above: Performed By: #### U RCX #### [facility] [address] [place] [address] Dr. Wally Zapien VIT D RANGES SEE BELOW Normal [facility] Comment on above: Result Comment: <20 ng/mL Vit D deficient 20 - <30 ng/mL Vit D insufficient 30 - 100 ng/mL Vit D sufficient >100 ng/mL Potential Toxicity Performed By: #### U RCX #### [facility] [address] [place] [address] Dr. Wally Zapien CBC AUTO DIFFon 09-18-2022 BASO # 0.0 103/ul Normal 0.0-0.1 [facility] Comment on above: Performed By: #### C BC #### [facility] [address] [place] [address] Dr. Wally Zapien Basophils/100 WBC (Bld) 0.7 % Normal 0.2-2.0 [facility] Comment on above: Performed By: #### C BC #### [facility] [address] [place] [address] Dr. Wally Zapien EO # 0.1 103/ul Normal 0.0-0.7 [facility] Comment on above: Performed By: #### C BC #### [facility] [address] [place] [address] Dr. Wally Zapien Eosinophils/100 WBC (Bld) 2.8 % Normal 0.9-7.0 [facility] Comment on above: Performed By: #### C BC #### [facility] [address] [place] [address] Dr. Wally Zapien Erythrocyte distribution width (RBC) [Ratio] 12.7 % Normal 11.0-15.0 [facility] Comment on above: Performed By: #### C BC #### [facility] [address] [place] [address] Dr. Wally Zapien Hematocrit (Bld) [Volume fraction] 44.1 % Normal 42.0-54.0 [facility] Comment on above: Performed By: #### C BC #### [facility] [address] [place] [address] Dr. Wally Zapien Hemoglobin (Bld) [Mass/Vol] 15.3 g/dL Normal 14.0-18.0 [facility] Comment on above: Performed By: #### C BC #### [facility] [address] [place] [address] Dr. Wally Zapien IG # 0.01 10e3/ul Normal 0.00-0.03 [facility] Comment on above: Performed By: #### C BC #### [facility] [address] [place] [address] Dr. Wally Zapien IG % 0.2 % Normal 0.0-0.5 [facility] Comment on above: Performed By: #### C BC #### [facility] [address] [place] [address] Dr. Wally Zapien LYMPH # 1.8 103/ul Normal 1.2-3.8 [facility] Comment on above: Performed By: #### C BC #### [facility] [address] [place] [address] Dr. Wally Zapien Lymphocytes/100 WBC (Bld) 43.0 % Normal 20.5-60.0 [facility] Comment on above: Performed By: #### C BC #### [facility] [address] [place] [address] Dr. Wally Zapien MANUAL DIFF REQ NO Normal [facility] Comment on above: Performed By: #### C BC #### [facility] [address] [address] [address] Wally Zapien MCH (RBC) [Entitic mass] 32.1 pg Normal 25.9-34.0 [facility] Comment on above: Performed By: #### C BC #### [facility] [address] [place] [address] Dr. Wally Zapien MCHC (RBC) [Mass/Vol] 34.7 g/dL Normal 29.9-35.2 [facility] Comment on above: Performed By: #### C BC #### [facility] [address] [place] [address] Dr. Wally Zapien MCV (RBC) [Entitic vol] 92.5 fL Normal 80.0-94.0 [facility] Comment on above: Performed By: #### C BC #### [facility] [address] [place] [address] Dr. Wally Zapien MONO # 0.4 103/ul Normal 0.3-0.8 [facility] Comment on above: Performed By: #### C BC #### [facility] [address] [place] [address] Dr. Wally Zapien Monocytes/100 WBC (Bld) 9.2 % Normal 1.7-12.0 [facility] Comment on above: Performed By: #### C BC #### [facility] [address] [place] [address] Dr. Wally Zapien NEUT # 1.9 103/ul Normal 1.4-6.5 [facility] Comment on above: Performed By: #### C BC #### [facility] [address] [place] [address] Dr. Wally Zapien Neutrophils/100 WBC (Bld) 44.1 % Normal 43.0-75.0 [facility] Comment on above: Performed By: #### C BC #### [facility] [address] [place] [address] Dr. Wally Zapien Platelet mean volume (Bld) [Entitic vol] 10.4 fL Normal 9.5-13.5 [facility] Comment on above: Performed By: #### C BC #### [facility] [address] [place], [place] [address] Dr. Wally Zapien PLT 152 103/ul Normal 150-450 [facility] Comment on above: Performed By: #### C BC #### [facility] [address] [place], [place] [address] Dr. Wally Zapien RBC 4.77 106/ul Normal 4.70-6.10 [facility] Comment on above: Performed By: #### C BC #### [facility] [address] [place], [place] [address] Dr. Wally Zapien WBC 4.2 103/ul Normal 4.0-11.0 [facility] Comment on above: Performed By: #### C BC #### [facility] [address] [place], [place] [address] ABD/PELVIS WO CONon [...] repair. 4. Cardiomegaly. Electronically authenticated by: JOELLE CHINA Date: 2022-09-18 13:40 Normal [facility] ER URINE PROFILEon 3 Bilirubin Ql (U) SMALL Abnormal NEGATIVE [facility] Comment on above: Performed By: #### Olinda WILLIS UMICRO #### [facility] [address] [place] [address] Dr. Wally Zapien Clarity (U) SL CLOUDY Abnormal CLEAR [facility] Comment on above: Performed By: #### Olinda WILLIS UMICRO #### [facility] [address] [place] [address] Dr. Wally Zapien Color (U) RED Abnormal YELLOW [facility] Comment on above: Performed By: #### Olinda WILLIS UMICRO #### [facility] [address] [place] [address] [address] Wally GERBER A micrscopic examination will be performed if indicated. Normal [facility] Comment on above: Performed By: #### Olinda WILLIS UMICRO #### [facility] [address] [place] [address] [address] Wally Zapien Glucose Ql (U) Negative Normal NEGATIVE [facility] Comment on above: Performed By: #### Olinda RUR UMICRO #### [facility] [address] [place] [address] [address] Wally Zapien Hemoglobin Ql (U) LARGE Abnormal NEGATIVE [facility] Comment on above: Performed By: #### Olinda GRACER UMICRO #### [facility] [address] [place] [address] [address] Wally Zapien Ketones Ql (U) TRACE Abnormal NEGATIVE [facility] Comment on above: Performed By: #### Olinda GRACER, UMICRO #### [facility] [address] [place] [address] Dr. Wally Zapien LEUKOCYTES TRACE Abnormal NEGATIVE [facility] Comment on above: Performed By: #### KERRI PADRON #### [facility] [address] [place] [address] Dr. Wally Zapien Nitrite Ql (U) Positive Abnormal NEGATIVE [facility] Comment on above: Performed By: #### KERRI PADRON #### [facility] [address] [place] [address] Dr. Wally Zapien pH (U) 5.5 [pH] Normal 5-9 [facility] Comment on above: Performed By: #### KERRI PADRON #### [facility] [address] [place] [address] Dr. Wally Zapien Protein (U) [Mass/Vol] 100 mg/dL Abnormal NEGATIVE/ TRACE [facility] Comment on above: Performed By: #### KERRI PADRON #### [facility] [address] [place] [address] Dr. Wally Zapien SPEC GRAVITY 1.025 Normal 1.005-<=1.02 5 [facility] Comment on above: Performed By: #### KERRI PADRON #### [facility] [address] [place] [address] Dr. Wally Zapien UR MICRO IND INDICATED Normal [facility] Comment on above: Performed By: #### KERRI PADRON #### [facility] [address] [place] [address] Dr. Wally Zapien Urobilinogen Qn (U) 1.0 {Suma'U}/dL Normal 0.2 - 1. 0 [facility] Comment on above: Performed By: #### KERRI PADRON #### [facility] [address] [place] [address] Dr. Wally Zapien PROF CHEM 8 (BAS METB)on Anion gap [Moles/Vol] 10.5 mmol/L Normal [facility] Comment on above: Performed By: #### U RCX #### [facility] [address] [place] [address] [address] Wally Zapien Calcium [Mass/Vol] 8.6 mg/dL Normal 8.5-10.1 [facility] Comment on above: Performed By: #### U RCX #### [facility] [address] [place] [address] [address] Wally Zapien Chloride [Moles/Vol] 105 mmol/L Normal 98-107 [facility] Comment on above: Performed By: #### U RCX #### [facility] [address] [place] [address] [address] Wally Zapien CO2 [Moles/Vol] 28.8 mmol/L Normal 21.0-32.0 [facility] Comment on above: Performed By: #### U RCX #### [facility] [address] [place] [address] Dr. Wally Zapien Creatinine [Mass/Vol] 0.85 mg/dL Normal 0.70-1.30 [facility] Comment on above: Performed By: #### U RCX #### [facility] [address] [place] [address] [address] Wally Zapien EGFR-AF BHUTANESE >60 Normal >=60 [facility] Comment on above: Performed By: #### U RCX #### [facility] [address] [place] [address] Dr. Wally Zapien EGFR-NON AF BHUTANESE >60 Normal >=60 [facility] Comment on above: Performed By: #### U RCX #### [facility] [address] [place] [address] [address] Wally Zapien Glucose [Mass/Vol] 112 mg/dL Critically high 74-106 [facility] Comment on above: Performed By: #### U RCX #### [facility] [address] [place] [address] [address] Wally Zapien Potassium [Moles/Vol] 4.3 mmol/L Normal 3.5-5.1 [facility] Comment on above: Performed By: #### U RCX #### [facility] [address] [place] [address] Dr. Wally Zapien Sodium [Moles/Vol] 140 mmol/L Normal 136-145 [facility] Comment on above: Performed By: #### U RCX #### [facility] [address] [place] [address] Dr. Wally Zapien Urea nitrogen [Mass/Vol] 23.0 mg/dL Critically high 7.0-18.0 [facility] Comment on above: Performed By: #### U RCX #### [facility] [address] [place] [address] Dr. Wally Zapien Urea nitrogen/Creatinine [Mass ratio] 27.1 mg/mg Normal [facility] Comment on above: Performed By: #### U RCX #### [facility] [address] [place] [address] Dr. Wally Zapien URINE MICROSCOPIC ONLYon BACTERIA TRACE Abnormal NONE SEEN [facility] Comment on above: Performed By: #### Olinda WILLIS UMICRO #### [facility] [address] [place] [address] Dr. Wally Zapien Bacteria identified Cx Nom (U) NOT INDICATED Normal [facility] Comment on above: Performed By: #### Olinda WILLIS UMICRO #### [facility] [address] [place] [address] Dr. Wally Zapien CAST NONE SEEN Normal NONE SEEN [facility] Comment on above: Performed By: #### E LAZARO UMICRO #### [facility] [address] [place] [address] Dr. Wally Zapien Crystals LM Nom (Urine sed) NONE SEEN Normal NONE SEEN [facility] Comment on above: Performed By: #### E LAZARO UMICRO #### [facility] [address] [place] [address] Dr. Wally Zapien Epithelial cells LM Ql (Urine sed) RARE Normal NONE SEEN /RARE [facility] Comment on above: Performed By: #### E RUR UMICRO #### [facility] [address] [place] [address] Dr. Wally Zapien MUCOUS NONE SEEN Normal NONE SEEN [facility] Comment on above: Performed By: #### E RUR, UMICRO #### [facility] [address] [place] [address] [address] Wally Zapien RBC (U) [#/Vol] /uL Abnormal 0-2 [facility] Comment on above: Performed By: #### E RUR, UMICRO #### [facility] [address] [place] [address] [address] Wally Zapien WBC 2-5 Abnormal NONE SEEN [facility] Comment on above: Performed By: #### E RUR, UMICRO #### [facility] [address] [place] [address] [address] Wally Zapien Vital Signs Date Time Vital Sign Value Performing Clinician Facility 10-02-2024 11:42-0500 Blood Pressure Location [facility] 10-02-2024 11:42-0500 Body temperature 98.6 [degF] [facility] 10-02-2024 11:42-0500 Diastolic blood pressure 67 mm[Hg] [place] 10-02-2024 11:42-0500 Heart rate 60 /min [place] [facility] 10-02-2024 11:42-0500 Respiratory rate 16 /min [place] [facility] 10-02-2024 11:42-0500 Systolic blood pressure 128 mm[Hg] [place] [facility] 09-03-2024 11:50-0500 Blood Pressure Location DI TROTTER [facility] 09-03-2024 11:50-0500 Body temperature 98.6 [degF] DI GLENN [facility] 09-03-2024 11:50-0500 Diastolic blood pressure 78 mm[Hg] DI GLENN [facility] 09-03-2024 11:50-0500 Heart rate 58 /min DI GLENN [facility] 09-03-2024 11:50-0500 Respiratory rate 18 /min DI GLENN [facility] 09-03-2024 11:50-0500 Systolic blood pressure 133 mm[Hg] DI GLENN [facility] 06-22-2024 16:00-0400 Body temperature 98.42 [degF] Lazara Orzech [facility] 06-22-2024 16:00-0400 Diastolic blood pressure 76 mm[Hg] Lazara Orzech [facility] 06-22-2024 16:00-0400 Heart rate 77 /min Lazara Orzech [facility] 06-22-2024 16:00-0400 Respiratory rate 16 /min Lazara Orzech [facility] 06-22-2024 16:00-0400 Systolic blood pressure 138 mm[Hg] Lazara Orzech [facility] 06-02-2024 11:50-0400 Diastolic blood pressure 84 mm[Hg] Lazara Orzech [facility] 06-02-2024 11:50-0400 Heart rate 156 /min Lazara Orzech [facility] 06-02-2024 11:50-0400 Respiratory rate 16 /min Lazara Orzech [facility] 06-02-2024 11:50-0400 Systolic blood pressure 95 mm[Hg] Lazara Orzech [facility] 03-17-2024 14:58-0400 Blood Pressure Location Lazara Orzech [facility] 03-17-2024 14:58-0400 Diastolic blood pressure 77 mm[Hg] Lazara Orzech [facility] 03-17-2024 14:58-0400 Heart rate 80 /min Lazara Orzech [facility] 03-17-2024 14:58-0400 Respiratory rate 16 /min Lazara Orzech [facility] 03-17-2024 14:58-0400 Systolic blood pressure 132 mm[Hg] Lazara Orzech [facility] 02-11-2024 09:59-0400 Blood Pressure Location Lazara Orzech [facility] 02-11-2024 09:59-0400 Diastolic blood pressure 84 mm[Hg] Lazara Orzech [facility] 02-11-2024 09:59-0400 Heart rate 71 /min Lazara Orzech [facility] 02-11-2024 09:59-0400 Systolic blood pressure 138 mm[Hg] Lazara Lino [facility] 07-17-2023 15:40-0500 Body height 160.02 cm Rocio Rocio Other [employer] Other 07-17-2023 15:40-0500 Body mass index (BMI) [Ratio] 37.55 kg/m2 Rocio Nullmond Other [employer] Other 07-17-2023 15:40-0500 Body temperature 98.2 [degF] Rocio Nullmond Other [employer] Other 07-17-2023 15:40-0500 Body weight 96.16 kg Rocio Nullmond Other [employer] Other 07-17-2023 15:40-0500 Diastolic blood pressure 76 mm[Hg] Rocio Rocio Other [employer] Other 07-17-2023 15:40-0500 Respiratory rate 18 /min Rocio Rocio Other [employer] Other 07-17-2023 15:40-0500 SaO2% (BldA) [Mass fraction] 96 % Rocio Nullmond Other [employer] Other 07-17-2023 15:40-0500 Systolic blood pressure 134 mm[Hg] Rocio Rocio Other [employer] Other 09-26-2022 13:26-0500 Blood Pressure Location [place] [facility] 09-26-2022 13:26-0500 Diastolic blood pressure 74 mm[Hg] [place] [facility] 09-26-2022 13:26-0500 Heart rate 52 /min [place] [facility] 09-26-2022 13:26-0500 Systolic blood pressure 173 mm[Hg] [place] [facility] 04-16-2022 13:49-0400 Diastolic blood pressure 87 mm[Hg] [place] [facility] 04-16-2022 13:49-0400 Mean blood pressure 110 mm[Hg] [place] [facility] 04-16-2022 13:49-0400 Systolic blood pressure 156 mm[Hg] [place] [facility] 04-16-2022 13:37-0400 Blood Pressure Location [place] [facility] 04-16-2022 13:37-0400 Diastolic blood pressure 102 mm[Hg] [place] [facility] 04-16-2022 13:37-0400 Heart rate 81 /min [place] [facility] 04-16-2022 13:37-0400 Respiratory rate 16 /min [place] [facility] 04-16-2022 13:37-0400 Systolic blood pressure 191 mm[Hg] [place] [facility] [place] Encounters Encounter Date Encounter Type Care Provider Facility Start: 10-30-2024 ambulatory DI Guadalupei ty:[facility] Start: 10-02-2024 End: 10-02-2024 ambulatory [place] [facility] Facility:[facility] Start: 10-02-2024 End: 10-02-2024 Patient encounter procedure [place] Janell [facility] Start: 09-03-2024 End: 09-03-2024 ambulatory DI Olinda HUDSONRY Facility:[facility] Start: 09-03-2024 End: 09-03-2024 Patient encounter procedure DI Olinda HUDSONRY [facility] Start: 08-10-2024 End: 08-10-2024 ambulatory [place] [facility] Facility:[facility] Start: 08-10-2024 End: 08-10-2024 Patient encounter procedure [place] [facility] Start: 08-06-2024 End: 08-06-2024 ambulatory DI E GLENN Facility:[facility] Start: 08-06-2024 End: 08-06-2024 Patient encounter procedure DI E GLENN [facility] Start: 08-03-20[facility] Start: 07-21-2024 End: 07-21-2024 ambulatory Lazara X Orzech Facility:[facility] Start: 07-21-2024 End: 07-21-2024 Patient encounter procedure Lazara X Orzech [facility] Start: 07-20-2024 ambulatory Lazara X Orzech [facility] Start: 07-20-2024 End: 07-20-2024 ambulatory [facility] Start: 07-10-2024 Evaluation and management of inpatient [facility] Start: 07-09-2024 Evaluation and management of inpatient [facility] Start: 07-06-2024 End: 07-13-2024 Evaluation and management of inpatient [facility] Start: 06-22-2024 End: 06-22-2024 ambulatory Lazara X Orzech Facility:[facility] Start: 06-22-2024 End: 06-22-2024 Patient encounter procedure Lazara X Orzech [facility] Start: 06-02-2024 End: 06-02-2024 ambulatory Lazara X Orzech [facility] Start: 06-02-2024 End: 06-02-2024 Lab Drop off Lazara X Orzech [facility] Start: 06-02-2024 End: 06-02-2024 ambulatory Lazara X Orzech Facility:[facility] Start: 06-02-2024 End: 06-02-2024 Patient encounter procedure Lazara X Orzech [facility] [place] Start: 05-10-2024 End: 05-11-2024 Clinisync Result Encounter Phuong Campos MD Work Phone: [facility] Unsolicited Start: 05-10-2024 End: 05-11-2024 Clinisync Result Encounter Phuong Campos MD Work Phone: [facility] Unsolicited Start: 04-21-2024 End: 04-21-2024 ambulatory BAYRON Guerrero [facility] Start: 04-17-2024 End: 04-21-2024 ambulatory MYLO Srinath [facility] Start: 04-17-2024 End: 04-21-2024 ambulatory [facility] Start: 04-17-2024 End: 04-20-2024 Evaluation and management of inpatient [facility] Start: 04-17-2024 End: 04-21-2024 Emergency department patient visit [facility] Start: 04-17-2024 End: 04-21-2024 ambulatory [facility] Start: 04-14-2024 ambulatory Lazara X Orzech Facilit y:[facility] Start: 04-07-2024 End: 04-07-2024 ambulatory [place] [facility] Facility:CD:[id number] Start: 03-18-2024 End: 03-18-2024 ambulatory Emily [place] [place] Start: 03-18-2024 End: 03-18-2024 Patient encounter procedure Emily Maria [facility] Start: 03-17-2024 End: 03-17-2024 ambulatory Lazara X Orzech Facility:[facility] Start: 03-17-2024 End: 03-17-2024 Patient encounter procedure Lazara X Orzech [facility] Start: 02-11-2024 End: 02-11-2024 Lab Drop off Lazara X Zoie [facility] Start: 02-11-2024 End: 02-11-2024 ambulatory Lazara X Orzech [facility] Start: 02-11-2024 End: 02-11-2024 Patient encounter procedure Lazara X Orzebrown [facility] [place] Start: 11-18-2023 End: 11-19-2023 ambulatory [facility] Start: 10-28-2023 End: 10-29-2023 ambulatory Fabrice Dias MD Facility:[facility] Start: 09-30-2023 End: 10-01-2023 ambulatory Fabrice Dias MD Facility:[facility] Start: 2023 End: 09-24-2023 ambulatory Fabrice Dias MD Facility:[facility] Start: 07-17-2023 End: 07-17-2023 ambulatory Rocio Chan Other [employer] Other Start: 07-17-2023 Office outpatient visit 15 minutes Rocio Chan [facility] Start: 05-27-2023 End: 05-28-2023 ambulatory Fabrice Dias MD Facility:[facility] Start: 01-23-[address] BAYRON VELAZQUEZ . Facili ty:[facility] Start: 09-26-2022 End: 09-26-2022 Patient encounter procedure [place] [facility] Start: 09-24-2022 End: 09-25-[address] BAYRON VELAZQUEZ . Facility:[facility] Start: 09-18-2022 End: 09-18-2022 ambulatory KARLOS MELTON . Facility:[facility] Start: 04-16-2022 End: 04-16-2022 Patient encounter procedure [place] [facility] Procedures Date Procedure Procedure Detail Performing Clinician Start: 05-10-2024 TBH UA (CLEAN/CATCH) KNOCKER OUT/MICRO IF IND. Phuong Campos MD Work Phone: Start: 09-24-2022 PSA screening KARLOS ALVAREZ . Comment on above: Performed By: #### U RCX #### [facility] [address] [place] [address] Dr. Wally Zapien Start: 03-17-2019 Cystoscope, device ( physical object) [place] [facility] Cardiac catheterization Patr elena [facility] Coronary artery bypass graft [place] [facility] Extraction of cataract Kathy [facility] Hydrocelectomy [place] MEYER S Inguinal herniorrhaphy Patkarolyn [facility] Large intestine excision Pat noe [facility] Prosthetic arthropla sty of the hip [place] [facility] Repair of musculoten dinous cuff of shoulder [place] [facility] Tonsillectomy and adenoidectomy [place] [facility] Plan of Treatment Date Care Activity Detail Author Start: 06-30-2024 ambulatory Ambulatory Facility:[facility] [place] Immunizations Immunization Date Immunization Notes Care Provider Fa anisha 05-24-2022 influenza virus vacc ine, unspecified formulation [place] 04-20-2022 SARS-CoV-2 mRNA (waodyldewxb-frkv-lglusz e) vaccine [place] [facility] 06-19-2021 SARS-CoV-2 (COVID-19 ) mRNA BNT-162b2 vax [employer] [facility] 06-01-2021 influenza virus vacc ine, unspecified formulation [employer] [facility] 05-23-2021 influenza virus vacc ine, unspecified formulation [employer] [facility] 11-10-2020 SARS-CoV-2 (COVID-19 ) mRNA BNT-162b2 vax [employer] [facility] 10-20-2020 SARS-CoV-2 (COVID-19 ) mRNA BNT-162b2 vax [employer] [facility] 08-04-2020 zoster vaccine recombinant [employer] [facility] 07-06-2020 SARS-CoV-2 (COVID-19 ) Ad26 vaccine, recombinant [employer] [facility] 06-24-2020 influenza virus vacc ine, unspecified formulation [employer] [facility] 06-03-2020 zoster vaccine recombinant [employer] [facility] 06-02-2020 SARS-CoV-2 (COVID-19 ) Ad26 vaccine, recombinant [employer] [facility] 05-26-2020 influenza virus vacc ine, unspecified formulation [employer] [facility] 05-29-2019 influenza virus vacc ine, unspecified formulation [employer] [facility] 06-17-2018 influenza virus vacc ine, unspecified formulation [employer] [facility] 05-14-2017 influenza virus vacc ine, unspecified formulation [employer] [facility] 05-14-2017 pneumococcal polysaccharide vaccine, 23 valent [employer] [facility] 05-17-2016 influenza virus vacc ine, unspecified formulation [employer] [facility] 05-17-2016 pneumococcal conjuga te vaccine, 13 valent [employer] [facility] 05-16-2015 influenza virus vacc ine, unspecified formulation [employer] [facility] Payers Date Payer Category Payer Medicare AETNA MEDICARE A DVANTAGE AETNA MEDICARE REPLACEMENT [id number] 2023-Present [address] [place] [address] [id number] 2022 Private Health Insurance 1957 Medicare [id number] 1942 Unknown [id number] 2.16.840.1.893322.3.579.2. 593 1942 Unknown [id number] 2.16.840.1.707492.3.579.2. 593 1942 Unknown [id number] 2.16.840.1.515852.3.579.2. 593 1942 Unknown [id number] 2.16.840.1.921906.3.579.2. 196 1942 Unknown [id number] 2.16.840.1.935169.3.579.2. 196 1942 Unknown [id number] 2.16.840.1.247672.3.579.2. 196 1942 Unknown [id number] 2.16.840.1.996047.3.579.2. 196 1942 Unknown [id number] 2.16.840.1.903236.3.579.2. 196 1942 Unknown [id number] 2.16.840.1.475263.3.579.2. 727 1942 Unknown [id number] 2.16.840.1.160620.3.579.2. 727 1942 Unknown [id number] 2.16.840.1.393954.3.579.2. 1286 1942 Unknown [id number] 2.16.840.1.523015.3.579.2. 1286 1942 Unknown [id number] 2.16.840.1.203133.3.579.2. 1286 1942 Unknown [id number] 2.16.840.1.624245.3.579.2. 1286 1942 Unknown [id number] 2.16.840.1.326032.3.579.2. 1286 1942 Unknown [id number] 2.16.840.1.076685.3.579.2. 1286 1942 Unknown [id number] 2.16.840.1.677359.3.579.2. 1286 1942 Unknown [id number] 2.16.840.1.808828.3.579.2. 1286 1942 Unknown [id number] 2.16.840.1.652865.3.579.2. 1286 1942 Unknown [id number] 2.16.840.1.245954.3.579.2. 727 1942 Unknown [id number] 2.16.840.1.395292.3.579.2. 727 1942 Unknown [id number]. 74 1940 Unknown [id number] 2.16.840.1.917531.3.579.2. 74 1940 Unknown [id number] 2.16.840.1.059759.3.579.2. 727 1940 Unknown [id number] 2.16.840.1.421414.3.579.2. 74 1940 Unknown [id number] 2.16.840.1.936421.3.579.2. 727 1940 Unknown [id number] 2.16.840.1.294525.3.579.2. 1942 Unknown [id number] 2.16.840.1.805764.3.579.2. 727 1940 Unknown [id number] 2.16.840.1.172464.3.579.2. 1942 Unknown [id number] 2.16.840.1.769242.3.579.2. 727 1942 Unknown [id number] 2.16.840.1.253266.3.579.2. 72 1940 Unknown [id number] 2.16.840.1.656872.3.579.2. 727 1942 Unknown [id number] 2.16.840.1.592621.3.579.2. 74 1940 Unknown [id number] 2.16.840.1.534139.3.579.2. 727 1940 Unknown [id number] 2.16.840.1.935772.3.579.2. 727 Social History Date Type Detail Facility Start: 04-16-2022 End: 10-02-2024 Tobacco smoking status Never smoked tobacco (finding) [facility] Tobacco smoking status Never [facility] Sex Assigned At Male [facility] Tobacco smoking status NHIS Tobacco smoking consumption unknown [facility] Start: 1940 Sex assigned at Not on file [facility] Functional Status Date Assessment Result Facility 10-02-2024 Functional Status N/A [facility] 09-03-2024 Functional Status N/A [facility] 06-22-2024 Functional Status N/A [facility] 06-02-2024 Functional Status N/A [facility] 03-17-2024 Functional Status N/A [facility] 02-11-2024 Functional Status N/A [facility] 09-26-2022 Functional Status N/A [facility] 04-16-2022 Functional Status N/A [facility] Clinical Notes 10-06-2020 to 10-02-2024 Note Date & Type Note Facility 10-02-2024 Hospital Discharge instructions Patient Education 10/02/2024 11:45:03 Circumcision Information Circumcision Information Male infants are born with a fold of skin that covers the head of the penis (foreskin). This fold of skin is often removed shortly after with a surgery that is called circumcision. A circumcision may be done by a health care provider who is involved in care or by a specialist who cares for the urinary tract (urologist). Circumcisions may also be done in non-medical settings for synagogue or cultural reasons. Who should be circumcised? The decision to leave the foreskin on or to have it removed is a personal one. It is often based on synagogue, social, or cultural beliefs. Circumcision is most often done in the first few days of life, but it may also be done later in life. In general: All healthy boys with a normal penis formation can be circumcised in the first few days after . Boys who are born early (prematurely) or who are ill should not be circumcised until they are older and stronger. Boys with certain deformities of the penis or deformities of the opening of the penis (urethra) should not be circumcised. How is circumcision done? The penis and the area around it are cleansed well. An injection may be given to numb the area. A numbing cream may be applied to the area. A special clamp or ring is attached to the penis and used to remove the foreskin. The area is then cleansed well again. Medicine and gauze are applied to it. What are the benefits of circumcision? When the foreskin is removed: The head of the penis is easier to wash. This lowers the risk for odors, swelling, and infection. Some men are less likely to: ?Carry the virus that causes genital warts (human papillomavirus or HPV). ?Contract human immunodeficiency virus (HIV). ?Develop cancer of the penis. ?Get urinary infections. ?Develop inflammation of the penis. What are the risks of circumcision? Circumcision is a safe procedure. However, problems may occur, including: Infection. Bleeding. Removal of too much or too little foreskin. This affects the appearance of the penis. Irritation and narrowing of the urinary opening. This is usually short term. Scarring of the penis. This may affect the way the penis functions. Where to find more information [employer] [place] [employer] (ACOG), [place] Male Circumcision: [email or web address].org Summary Male infants are born with a fold of skin that covers the head of the penis. This fold of skin is often removed shortly after with a surgery that is called circumcision. When the foreskin is removed, the head of the penis is easier to wash and keep clean. Some men who are circumcised are less likely to carry viruses, get urinary infections, or develop cancer of the penis. Circumcision is a safe procedure. However, problems may occur, including infection, bleeding, scarring, and irritation and narrowing of the opening of the penis. This information is not intended to replace advice given to you by your health care provider. Make sure you discuss any questions you have with your health care provider. Document Revised: 08/13/2022 Document Reviewed: 08/13/2022 Section 101 Patient Education 2023 [employer] Writer. Follow Up Care 09/03/2024 13:05:58 With:JAYDON COE, Reno Maciel, URL Address: [address] [place] [address]- When: Unknown [facility] 10-02-2024 Note Patient Education Urology Circumcision Information Male infants are born with a fold of skin that covers the head of the penis (foreskin). This fold of skin is often removed shortly after with a surgery that is called circumcision. A circumcision may be done by a health care provider who is involved in care or by a specialist who cares for the urinary tract (urologist). Circumcisions may also be done in non-medical settings for synagogue or cultural reasons. Who should be circumcised? The decision to leave the foreskin on or to have it removed is a personal one. It is often based on synagogue, social, or cultural beliefs. Circumcision is most often done in the first few days of life, but it may also be done later in life. In general: ??? All healthy boys with a normal penis formation can be circumcised in the first few days after . ??? Boys who are born early (prematurely) or who are ill should not be circumcised until they are older and stronger. ??? Boys with certain deformities of the penis or deformities of the opening of the penis (urethra) should not be circumcised. How is circumcision done? The penis and the area around it are cleansed well. ??? An injection may be given to numb the area. A numbing cream may be applied to the area. ??? A special clamp or ring is attached to the penis and used to remove the foreskin. ??? The area is then cleansed well again. ??? Medicine and gauze are applied to it. What are the benefits of circumcision? When the foreskin is removed: ??? The head of the penis is easier to wash. This lowers the risk for odors, swelling, and infection. ??? Some men are less likely to: ? Carry the virus that causes genital warts (human papillomavirus or HPV). ? Contract human immunodeficiency virus (HIV). ? Develop cancer of the penis. ? Get urinary infections. ? Develop inflammation of the penis. What are the risks of circumcision? Circumcision is a safe procedure. However, problems may occur, including: ??? Infection. ??? Bleeding. ??? Removal of too much or too little foreskin. This affects the appearance of the penis. ??? Irritation and narrowing of the urinary opening. This is usually short term. ??? Scarring of the penis. This may affect the way the penis functions. Where to find more information ??? [employer] [place] [employer] (ACOG), Male Circumcision: [email or web address].org Summary ??? Male infants are born with a fold of skin that covers the head of the penis. This fold of skin is often removed shortly after with a surgery that is called circumcision. ??? When the foreskin is removed, the head of the penis is easier to wash and keep clean. ??? Some men who are circumcised are less likely to carry viruses, get urinary infections, or develop cancer of the penis. ??? Circumcision is a safe procedure. However, problems may occur, including infection, bleeding, scarring, and irritation and narrowing of the opening of the penis. This information is not intended to replace advice given to you by your health care provider. Make sure you discuss any questions you have with your health care provider. Document Revised: 08/13/2022 Document Reviewed: 08/13/2022 Elsevier Patient Education ? 2023 [employer] Writer. [facility] 09-03-2024 Hospital Discharge instructions Patient Education 09/03/2024 13:59:30 Circumcision Information Circumcision Information Male infants are born with a fold of skin that covers the head of the penis (foreskin). This fold of skin is often removed shortly after with a surgery that is called circumcision. A circumcision may be done by a health care provider who is involved in care or by a specialist who cares for the urinary tract (urologist). Circumcisions may also be done in non-medical settings for synagogue or cultural reasons. Who should be circumcised? The decision to leave the foreskin on or to have it removed is a personal one. It is often based on synagogue, social, or cultural beliefs. Circumcision is most often done in the first few days of life, but it may also be done later in life. In general: All healthy boys with a normal penis formation can be circumcised in the first few days after . Boys who are born early (prematurely) or who are ill should not be circumcised until they are older and stronger. Boys with certain deformities of the penis or deformities of the opening of the penis (urethra) should not be circumcised. How is circumcision done? The penis and the area around it are cleansed well. An injection may be given to numb the area. A numbing cream may be applied to the area. A special clamp or ring is attached to the penis and used to remove the foreskin. The area is then cleansed well again. Medicine and gauze are applied to it. What are the benefits of circumcision? When the foreskin is removed: The head of the penis is easier to wash. This lowers the risk for odors, swelling, and infection. Some men are less likely to: ?Carry the virus that causes genital warts (human papillomavirus or HPV). ?Contract human immunodeficiency virus (HIV). ?Develop cancer of the penis. ?Get urinary infections. ?Develop inflammation of the penis. What are the risks of circumcision? Circumcision is a safe procedure. However, problems may occur, including: Infection. Bleeding. Removal of too much or too little foreskin. This affects the appearance of the penis. Irritation and narrowing of the urinary opening. This is usually short term. Scarring of the penis. This may affect the way the penis functions. Where to find more information [employer] [place] [employer] (ACOG), [place] Male Circumcision: [email or web address].org Summary Male infants are born with a fold of skin that covers the head of the penis. This fold of skin is often removed shortly after with a surgery that is called circumcision. When the foreskin is removed, the head of the penis is easier to wash and keep clean. Some men who are circumcised are less likely to carry viruses, get urinary infections, or develop cancer of the penis. Circumcision is a safe procedure. However, problems may occur, including infection, bleeding, scarring, and irritation and narrowing of the opening of the penis. This information is not intended to replace advice given to you by your health care provider. Make sure you discuss any questions you have with your health care provider. Document Revised: 08/13/2022 Document Reviewed: 08/13/2022 Section 101 Patient Education 2023 [employer] Writer. Follow Up Care 08/06/2024 12:22:28 With:Dr Interiano 1 month to discuss surgery and change cath Address:Unknown When: Unknown [facility] 09-03-2024 Note Patient Education Urology Circumcision Information Male infants are born with a fold of skin that covers the head of the penis (foreskin). This fold of skin is often removed shortly after with a surgery that is called circumcision. A circumcision may be done by a health care provider who is involved in care or by a specialist who cares for the urinary tract (urologist). Circumcisions may also be done in non-medical settings for synagogue or cultural reasons. Who should be circumcised? The decision to leave the foreskin on or to have it removed is a personal one. It is often based on synagogue, social, or cultural beliefs. Circumcision is most often done in the first few days of life, but it may also be done later in life. In general: ??? All healthy boys with a normal penis formation can be circumcised in the first few days after . ??? Boys who are born early (prematurely) or who are ill should not be circumcised until they are older and stronger. ??? Boys with certain deformities of the penis or deformities of the opening of the penis (urethra) should not be circumcised. How is circumcision done? The penis and the area around it are cleansed well. ??? An injection may be given to numb the area. A numbing cream may be applied to the area. ??? A special clamp or ring is attached to the penis and used to remove the foreskin. ??? The area is then cleansed well again. ??? Medicine and gauze are applied to it. What are the benefits of circumcision? When the foreskin is removed: ??? The head of the penis is easier to wash. This lowers the risk for odors, swelling, and infection. ??? Some men are less likely to: ? Carry the virus that causes genital warts (human papillomavirus or HPV). ? Contract human immunodeficiency virus (HIV). ? Develop cancer of the penis. ? Get urinary infections. ? Develop inflammation of the penis. What are the risks of circumcision? Circumcision is a safe procedure. However, problems may occur, including: ??? Infection. ??? Bleeding. ??? Removal of too much or too little foreskin. This affects the appearance of the penis. ??? Irritation and narrowing of the urinary opening. This is usually short term. ??? Scarring of the penis. This may affect the way the penis functions. Where to find more information ??? [employer] [place] [employer] (ACOG), [place] Male Circumcision: [email or web address].org Summary ??? Male infants are born with a fold of skin that covers the head of the penis. This fold of skin is often removed shortly after with a surgery that is called circumcision. ??? When the foreskin is removed, the head of the penis is easier to wash and keep clean. ??? Some men who are circumcised are less likely to carry viruses, get urinary infections, or develop cancer of the penis. ??? Circumcision is a safe procedure. However, problems may occur, including infection, bleeding, scarring, and irritation and narrowing of the opening of the penis. This information is not intended to replace advice given to you by your health care provider. Make sure you discuss any questions you have with your health care provider. Document Revised: 08/13/2022 Document Reviewed: 08/13/2022 Elsevier Patient Education ? 2023 Section 101 Inc. [facility] 08-03-2024 Note Subjective Patient ID: Kyler Richard is a 83 y.o. male who presents for No chief complaint on file.. HPI:This is a 83-year-old male patient with urethral stricture with recurrent UTI and recent hematuria admitted to [facility] on 07/06 with hematuria. Upon presentation 16 [place] more catheter was exchanged for 24 [place] three-way s/p irrigation. WBC was 12k, urine [...] he has followed up with Urology at [place] and catheter was exchanged.Patient states he is slowly working on getting stronger. Patient and denies any new issues or concerns including hematuria, fever or chills. Past Medical History: No past medical history on file. 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 [facility] 07-21-2024 Hospital Discharge instructions Patient Education 07/21/2024 [...] provider. Document Revised: 03/12/2023 Document Reviewed: 03/12/2023 Section 101 Patient Education 2023 [employer] Writer. [facility] 07-21-2024 Note Patient Education Caregiving Antibiotic Medicine, [...] You have sig (more content not included)... [facility] 07-20-2024 Note 07/20/2024 Subjective Patient ID: Kyler Richard is a 83 y.o. male who presents for No chief complaint on file.. HPI:This is a 83-year-old male patient with urethral stricture with recurrent UTI and recent hematuria admitted to [facility] on 07/06 with hematuria. Upon presentation 16 [place] more catheter was exchanged for 24 [place] three-way s/p irrigation. WBC was 12k, urine [...] (CMS/HCC) Penile hypospadias Coronary artery disease involving cahuilla coronary artery of cahuilla heart without angina pectoris Past Surgical History: [...] BP 124/77 Pul (more content not included)... [facility] 07-13-2024 Note Occupational Therapy Occupational Therapy Treatment Patient Name: Kyler Richard : 1940 Today's Date: 07/13/2024 Time in:1123 Time out:1152 Total time:29 min Problem List Patient Active Problem List Diagnosis Hematuria Cerebrovascular accident (CVA) due to occlusion of precerebral artery (CMS/HCC) Penile hypospadias Coronary artery disease involving cahuilla coronary artery of cahuilla heart without angina pectoris 07/13/24 1152 OT [...] initation and follow through General Assessment Hearing PAIMIUT - hearing aides in Functional Standing Tolerance Functional Standing Tolerance Comments Patient tolerate sit to stand transfer from bedside chair, and complete functional mobility around bed to sit at EOB. 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 [facility] 07-13-2024 Note Hospital Medicine Discharge Summary Final [...] s/p CABG x4 ~2006, who presents from [place] ED as transfer with a chief complaint of recurrent hematuria. Patient denies requiring a More catheter initially after stroke back in March, but began having episodes of hematuria and intermittent obstruction secondary to clots prompting a More catheter placement at his care home where he was transferred for rehab. Due [...] Center 07/20/2024 9:00 AM Olga Watters NP [facility] Your medication list START [...] Medications These medications were sent to [facility] - [place], [place] - [address] [place] [address] [place] [address], [facility] [address] aspirin 81 mg EC tablet carvedilol 6.25 mg tablet linezolid 600 mg tablet Kyler has No Known Allergies. Disposition: Home-Health Care [facility] (06) Discharge Condition: Good Code Status: Full Code Diagnostic Results Hematology: Results from last 7 days Lab Units 11 (more content not included)... [facility] 07-13-2024 Note Discharge Planning U pdate: 1220 Spoke with patient face to face. Patient has DC order in place. Patient stated he is currently active with [facility]. SW placed return referral to [facility] via careport, awaiting response. 2:55pm [facility] accepting, AVS sent. Patient stated family will transport upon discharge. No further OTM needs discovered at this time. [facility] 07-13-2024 Note 07/13/24 1212 Referral Data Referral Source travelers' aid worker Referral Reason Other (Comment) (Discharge Planning) Patient Information Primary Caregiver Self Activities of Daily Living Assistive Device Cane;Walker;Wheelchair;Other (Comment) (has wheelchair, walker, cane, and rollator at home) Living Arrangement (Current/Prior to Hospitalization) Private residence (home, lives with ) Ambulation Independent Dressing Independent Feeding Independent Behavior Oriented Communication Talks;Understands speaking;Understands [place]ut[place] Income Information Income Source Unemployed (retired) Referral [...] family will transport him home upon discharge) [facility] 07-13-2024 Note Physical Therapy Physical Therapy Treatment Patient Name: Kyler Richard : 1940 Today's Date: 07/13/2024 Patient Active Problem List Diagnosis Hematuria Cerebrovascular accident (CVA) due to occlusion of precerebral artery (CMS/HCC) Penile hypospadias Coronary artery disease involving cahuilla coronary artery of cahuilla heart without angina pectoris Objective pt agreeable [...] 1: Moderate assistance (more content not included)... [facility] 07-13-2024 Note Attestation signed by Ancelmo Branham MD [...] without murmurs Abdomen (more content not included)... [facility] 07-12-2024 Note Pharmacy Dosing Serv ice - [...] questions Thank you, Radha Sahni, PharmD, 07/12/24 [facility] 07-12-2024 Note Hospital Medicine Daily Progress Note - 07/12/2024 2:38 PM; Room: [address] [place] [address] Admission: 07/06/2024 11:47 AM; Length of stay: 6 days THE HOSPITALIST TEAM PREFERS TO USE evOLED CHAT FOR COMMUNICATION 7AM-7PM. IF I DO NOT RESPOND WITHIN 15 MINUTES, PLEASE PAGE ME/CALL THROUGH THE BATTERY STARTER. FROM 7PM-7AM, PLEASE PAGE [phone](COVR) Code Status: Full Code Barriers to Discharge: [...] (CMS/HCC) Penile hypospadias Coronary artery disease involving cahuilla coronary artery of cahuilla heart without angina pectoris Assessment and Plan [...] this admission) No (more content not included)... [facility] 07-12-2024 Note Infectious Diseases - Inpatient daily [...] mg/dL Normal UR (more content not included)... [facility] 07-11-2024 Note Cultures reviewed, s o far [...] with linezolid Semaj Sanchez MD Infectious diseases [facility] 07-11-2024 Note Physical Therapy Physical Therapy Treatment [...] (CMS/HCC) Penile hypospadias Coronary artery disease involving cahuilla coronary artery of cahuilla heart without angina pectoris 07/11/24 1337 PT [...] Emotional labile at times. General Assessment Hearing PAIMIUT - hearing aides in Therapeutic Exercise Therapeutic [...] 1 Performed w (more content not included)... [facility] 07-11-2024 Note Hospital Medicine Daily Progress Note - 07/11/2024 12:48 PM; Room: [address] [place] [address] Admission: 07/06/2024 11:47 AM; Length of stay: 5 days THE HOSPITALIST TEAM PREFERS TO USE evOLED CHAT FOR COMMUNICATION 7AM-7PM. IF I DO NOT RESPOND WITHIN 15 MINUTES, PLEASE PAGE ME/CALL THROUGH THE BATTERY STARTER. FROM 7PM-7AM, PLEASE PAGE [phone](COVR) Code Status: Full Code Barriers to Discharge: [...] (CMS/HCC) Penile hypospadias Coronary artery disease involving cahuilla coronary artery of cahuilla heart without angina pectoris Assessment and Plan [...] , FREET4 , CORTISOL , FEV1 , [id number] , DLCO , RVSP , HDL , LDL No results found for: [id number] , IRON , TIBC (more content not included)... [facility] 07-10-2024 Note Pt off unit for MRI. Check no charge [facility] 07-10-2024 Note Hospital Medicine Daily Progress Note - 07/10/2024 1:31 PM; Room: [address] [place] [address] Admission: 07/06/2024 11:47 AM; Length of stay: 4 days THE HOSPITALIST TEAM PREFERS TO USE EPIC CHAT FOR COMMUNICATION 7AM-7PM. IF I DO NOT RESPOND WITHIN 15 MINUTES, PLEASE PAGE ME/CALL THROUGH THE BATTERY STARTER. FROM 7PM-7AM, PLEASE PAGE [phone](COVR) Code Status: Full Code Barriers to Discharge: [...] (CMS/HCC) Penile hypospadias Coronary artery disease involving cahuilla coronary artery of cahuilla heart without angina pectoris Assessment and Plan [...] , FREET4 , CORTISOL , FEV1 , NBA0RJB , DLCO , RVSP , HDL , LDL No results found for: [id number] , IRON , TIBC , C3 , C4 , CORETTA , CANCA , ASO , PSA , CEA , CA125 , CA199 , AFP , CA153 Imaging Complete Echo (TTE) w/wo Imaging Agent, Strain, 3D, Bubble Study 1 [facility] Heart Station [address] (more content not included)... [facility] 07-10-2024 Note Attestation signed by Semaj Sanchez [...] and recurrent hematuria who was transferred from [facility] for hematuria and clot retention. On arrival [...] bowel sounds, non- (more content not included)... [facility] 07-10-2024 Note Recurrent urinary tr act infection [...] thoracic levels. Electronically signed: Jarvis Barth. 8 [facility] 07-09-2024 Note Hospital Medicine Daily Progress Note - 07/09/2024 1:22 PM; Room: [address] [place] [address] Admission: 07/06/2024 11:47 AM; Length of stay: 1 days THE HOSPITALIST TEAM PREFERS TO USE evOLED CHAT FOR COMMUNICATION 7AM-7PM. IF I DO NOT RESPOND WITHIN 15 MINUTES, PLEASE PAGE ME/CALL THROUGH THE BATTERY STARTER. 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 Family/Caregiver Present No Precautions Medical Precautions fall risk, telemetry, more, bed alarm Pain Assessment Pain Assessment No/denies pain Cognition Overall Cognitive Status WFL Orientation Level Oriented X4 General Assessment Hearing PAIMIUT Skin Integrity All visualized areas intact UE [...] 2 Bathing(Including washing,rin (more content not included)... [facility] 07-09-2024 Note Occupational Therapy Name: Kyler Richard Date of : 1940 Today's Date: 07/09/24 Pt is unable to be seen for therapy at this time secondary to patient off the floor at ECHO at this time . Will check back and complete therapy session as appropriate. Check No Charge Time attempted: 1050A [facility] 07-09-2024 Note Physical Therapy Name: Kyler Richard Date of : 1940 Today's Date: 07/09/24 Pt is unable to be seen for therapy at this time secondary to pt off unit. Will check back and complete therapy session as appropriate. Check No Charge Time attempted: 10:05 [facility] 07-08-2024 Note 07/08/24 1745 Admission Assessment Questions [...] Not Interested ([facility]) Does the patient have a immigration case manager assigned to them through their insurance? No Living Arrangement (Current/Prior to Hospitalization) Private residence;Home self care (lives with his Azul in 2 story house, Bedroom & Full Bathroom are on Main Level; Has the support of 3 adult kids, friends & religious members) Does the patient have history of HHC or SNF? Yes (currently active/finishing up with [facility] ; previously went to [facility] SNF after his stroke in March but stated will never go back there again ) Assistive Device Cane;Grab bars;Raised toilet seat;Walker;Wheelchair;Bedside Commode (has Shower Chair) Patient's goal for discharge wants to think about options : Home with HHC vs SNF Was patient reminded that goal for discharge is 11am? Yes Does the patient have transportation at discharge? Yes (likely Family) Type of Residence Home care staff;detention facility (Home with [facility], agreeable to resume services vs SNF) Is PT/OT appropriate? Yes Is PT/OT ordered? Yes Is SW consult appropriate? Yes Is SW consult ordered? No Do you understand the benefits of MyChart? No Were you able to send link and activate MyChart? No (declined MyChart set-up) Screen completed with patient, Azul & daughter at bedside. [facility] 07-08-2024 Note Pharmacy Dosing Serv ice - Vancomycin Initial Consult Note Pharmacy has been consulted for the dosing and evaluation of Drug: Vancomycin Indication: UTI AUC 400-600 mg*hr/L and trough 10-20 mcg/mL Other Antimicrobial Regimens: None Labs and Renal Function Total body weight: 87.5 kg (192 lb 14.4 oz) Ragland body weight: 54.6 kg (120 lb 5.9 [...] questions Thank you, Elvira Brandon, PharmD, 07/08/24 [facility] 07-08-2024 Note Physical Therapy Physical Therapy Treatment Patient Name: Kyler Richard : 1940 Today's Date: 07/08/2024 Time In: 1016 Time Out: 1048 Patient Active Problem List Diagnosis Hematuria Cerebrovascular accident (CVA) due to occlusion of precerebral artery (CMS/HCC) Penile hypospadias Coronary artery disease involving cahuilla coronary artery of cahuilla heart without angina pectoris Objective General Visit [...] with RW General Assessment General Assessment Hearing: PAIMIUT Skin Integrity: All visualized areas intact Static [...] RLE leading 2/2 R knee pain. Decreased yordy, step length/height. Pt demos impairments in ability [...] back to you (more content not included)... [facility] 07-08-2024 Note Hospital Medicine Daily Progress Note - 07/08/2024 8:43 AM; Room: [facility] Admission: 07/06/2024 11:47 AM; Length of stay: 1 days THE HOSPITALIST TEAM PREFERS TO USE evOLED CHAT FOR COMMUNICATION 7AM-7PM. IF I DO NOT RESPOND WITHIN 15 MINUTES, PLEASE PAGE ME/CALL THROUGH THE BATTERY STARTER. 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 Discharge Planning Expected Discharge Disp (more content not included)... [facility] 07-07-2024 Note Checked patient's ro om twice no visitors at those times. Called patient's and left a voicemail. Left a list of SNF's at bedside with writers contact info. [facility] 07-07-2024 Note Hospital Medicine Daily Progress Note - 07/07/2024 1:59 PM; Room: [address] [place] [address] Admission: 07/06/2024 11:47 AM; Length of stay: 1 days THE HOSPITALIST TEAM PREFERS TO USE Mape FOR NON-URGENT COMMUNICATION 7AM-7PM. IF I DO NOT RESPOND WITHIN 20 MINUTES OR URGENT MATTERS, PLEASE CALL THROUGH THE BATTERY STARTER. FROM 7PM-7AM, PLEASE PAGE [phone](COVR). Code Status: Full Code Barriers to Discharge: [...] (CMS/HCC) Penile hypospadias Coronary artery disease involving cahuilla coronary artery of cahuilla heart without angina pectoris Assessment and Plan [...] , FREET4 , CORTISOL , FEV1 , [id number] , DLCO , RVSP , HDL , LDL No results found for: [id number] , IRON , TIBC , C3 , C4 , CORETTA , CANCA , ASO , PSA , CEA , CA125 , CA199 , AFP , CA153 Imaging No image results found. Discharge Planning Expected Discharge Disposition: Home or Self Care () PT Discharge Recommendations: Home OT Discharge Recommendations: Home OT, With assist Signed Barrera Manley MD [facility] 07/07/2024 1:59 PM [facility] 07-07-2024 Note Occupational Therapy Occupational Therapy Evaluation [...] (CMS/HCC) Penile hypospadias Coronary artery disease involving cahuilla coronary artery of cahuilla heart without angina pectoris History reviewed. No pertinent past medical history. History reviewed. No pertinent surgical history. Precautions Precautions Medical Precautions: fall risk, telemetry Pain Pain Assessment Pain Assessment: 0-10 Pain Score: 5 - Moderate pain (with activity, 2 at rest) Pain Location: Abdomen Cognition Cognition Overall Cognitive Status: Within Functional Limits General Assessment General Assessment Hearing: PAIMIUT Home Living Home Living Type of Home: [...] Level of Function Prior Function Level of [place]: Independent with ADLs and functional transfers, Independent [...] Yes Hand Function (more content not included)... 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 [facility] 07-07-2024 Note Urology Daily Progre ss Note [...] Plan: Maintain More catheter for now 24 Kittitian three-way More catheter in place with import [...] plan as documented above. Jerry Cheatham MD [facility] 07-06-2024 Note Urology Consultation Patient: Kyler Richard [...] clot retention who presents as transfer from [facility] for clot retention and urologic consultation. On arrival, patient's labs showing WBC 11.72, hemoglobin 13.3, and creatinine 0.77 (baseline). UA and urine culture were not performed. Patient has no recent upper tract imaging per chart. On evaluation, patient is afebrile and hemodynamically stable. Patient is resting comfortably in bed and in no acute distress. Patient has 16 Kittitian More catheter in place draining arelis urine [...] breath, abdominal/flank pain, diarrhea or constipation. 16 Kittitian More catheter was exchanged bedside for a 24 Kittitian three-way. Catheter was exchanged without complication. Patient [...] for: PSA Urinalysi (more content not included)... [facility] 07-06-2024 Note Hospital Medicine History and Physical 07/06/2024 12:52 PM THE HOSPITALIST TEAM PREFERS TO USE evOLED CHAT FOR COMMUNICATION 7AM-7PM. IF I DO NOT RESPOND WITHIN 15 MINUTES, PLEASE PAGE ME/CALL THROUGH THE BATTERY STARTER. FROM 7PM-7AM, PLEASE PAGE [phone](COVR) Chief Complaint No chief complaint on file. History of Present Illness Kyler Richard is an 83 y.o. male with a PMH of recent L small vessel CVA w minimal R sided deficits, hypospadias, and history of CAD s/p CABG x4 ~2007, who presents from [place] ED as transfer with a chief complaint of recurrent hematuria. Patient denies requiring a More catheter initially after stroke back in March, but began having episodes of hematuria and intermittent obstruction secondary to clots prompting a More catheter placement at his care home where he was transferred for rehab. Due [...] intermittent obstruction/retention H (more content not included)... [facility] 06-02-2024 Hospital Discharge instructions Patient Education 06/02/2024 [...] Follow these instructions at home: Medicines Take phzi-vty-fzkkjno and prescription medicines only as told by [...] provider. Document Revised: 05/03/2021 Document Reviewed: 05/03/2021 Section 101 Patient Education 2023 [employer] Writer. 06/02/2024 13:23:02 Urinary Tract Infection, Adult Urinary [...] Treatment for this condition includes: Antibiotic medicine. Umpy-xrz-xxrhefn medicines to treat discomfort. Drinking enough water [...] Follow these instructions at home: Medicines Take lzze-rhf-ytfbkzc and prescription medicines only as told by [...] provider. Document Revised: 03/19/2021 Document Reviewed: 03/24/2021 Section 101 Patient Education 2023 [employer] Writer. 06/02/2024 13:22:59 Hematuria, Adult Hematuria, Adult Hematuria [...] Follow these instructions at home: Medicines Take yvak-zmm-pncvriv and prescription medicines only as told by [...] or the blood stops without treatment. Take wltu-odw-szgghkf and prescription medicines only as told by your health care provider. Drink enough fluid to keep your urine pale yellow. This information is not intended to replace advice given to you by your health care provider. Make sure you discuss any questions you have with your health care provider. Document Revised: 04/12/2021 Document Reviewed: 04/12/2021 Section 101 Patient Education 2023 [employer] Writer. Follow Up Care 05/25/2024 13:00:03 With:KIM Lino APRN, PARVIN Kirk, URL Address: When: Unknown Comments:4-week cath change [facility] [place] 06-02-2024 Note Patient Education Obstetrics and Gynecology [...] this condition includes: ? Antibiotic medicine. ? Ypwj-ymq-yegbidi medicines to treat discomfort. ? Drinking enough [...] these instructions at home: Medicines ? Take wivm-cte-olvdsxa and prescription medicines only as told by [...] Document Revised: 03/19 (more content not included)... [facility] 04-17-[address] BRAIN WO CONT [...] Elias Garner DO on 04/17/2024 8:52 AM [facility] 03-17-2024 Hospital Discharge instructions Patient Education [...] Follow these instructions at home: Medicines Take ycwe-mek-ykdadei and prescription medicines only as told by [...] provider. Document Revised: 05/03/2021 Document Reviewed: 05/03/2021 Section 101 Patient Education 2022 [employer] Writer. Follow Up Care 03/13/2024 14:20:02 With:KIM Lino APRN, PARVIN Kirk, URL Address: When: Unknown [facility] 03-17-2024 Note Patient Education Urology Acute Urinary [...] these instructions at home: Medicines ? Take oofg-syi-hopbntp and prescription medicines only as told by [...] provider. Document Revised: 05/03/2021 Document Reviewed: 05/03/2021 Section 101 Patient Education ? 2022 [employer] Writer. [facility] 02-11-2024 Evaluation + Plan note Diagnostic Tests PendingUrine Culture 02/11/24 [facility] 02-11-2024 Hospital Discharge instructions Patient [...] Follow these instructions at home: Medicines Take cccq-woo-nygcigh and prescription medicines only as told by [...] or the blood stops without treatment. Take amke-qlo-sctvaaz and prescription medicines only as told by your health care provider. Drink enough fluid to keep your urine pale yellow. This information is not intended to replace advice given to you by your health care provider. Make sure you discuss any questions you have with your health care provider. Document Revised: 04/12/2021 Document Reviewed: 04/12/2021 Section 101 Patient Education 2022 [employer] Writer. 02/11/2024 10:34:29 Benign Prostatic Hyperplasia Benign Prostatic [...] urethra. Follow these instructions at home: Take behr-omv-udekaup and prescription medicines only as told by [...] provider. Document Revised: 02/28/2022 Document Reviewed: 02/28/2022 Section 101 Patient Education 2022 [employer] Writer. Follow Up Care 04/16/2022 14:54:37 With:KIM Lino APRN, Lazara Echavarria, PARVIN, URL Address: When: Unknown Comments:1 year With:JAYDON COE, Reno Maciel, URL Address: [facility] [address] , [place] [address]- [phone] When: Unknown [facility] 02-11-2024 Note - From: Julia Charlton To: [facility] - Administrative; Sent: 02/11/2024 10:28:36 EDT Show up: 08/26/2024 10:28:00 EST Subject: schedule 1 yr f/u Due Date/Time: 02/02/2025 10:28:00 EDT Reminder/Recall Patient needs scheduled for a 1 yr f/u, no labs Joa[facility] 07-17-2023 Evaluation note Encounter Date Diagnosis [...] no improvement in 2 to 3 days [employer] Other 02-01-2023 Hospital Discharge instructions Patient Education [...] or mouth. Supplies needed: Soap. Alcohol-based hand development chemist. Standard cleaning products. Disinfectants, such as bleach. [...] water are not available, use alcohol-based hand development chemist. Avoid touching your face, mouth, nose, or [...] water. Air-dry your dishes or use a reel and rewinder operator. Do not share dishes or eating utensils. [...] certain germs and not others. Read the meat lugger's instructions or read online resources to determine [...] minutes after each use, or according to meat lugger's instructions. Wash reusable cleaning cloths and sanitize [...] water are not available, use alcohol-based hand development chemist. In general: Stay home except to get [...] for Professionals in Infection Control and Epidemiology: professionals.site.apic.org/mreulcgt-wm-miya/eyu-kvgvdksctd-tivigaj/home/ Summary It is important to know how [...] 05/21/2009 Document Revised: 12/08/2019 Document Reviewed: 11/06/2019 Section 101 Patient Education 2019 [employer] Writer. Follow Up Care 09/20/2022 14:58:28 With:JAYDON COE, Reno Maciel, URL Address: [facility] [address], [place] [address]- When:3 months Comments:UTI F/U [facility] Robert 08-22-2022 Hospital Discharge instructions Patient Education 04/16/2022 [...] urethra. Follow these instructions at home: Take urpz-fcm-dodtdfi and prescription medicines only as told by [...] 08/12/2006 Document Revised: 07/07/2019 Document Reviewed: 09/16/2017 Section 101 Patient Education 2020 [employer] Writer. 04/16/2022 14:44:17 Calorie Counting for Weight Loss [...] 08/12/2006 Document Revised: 05/01/2019 Document Reviewed: 07/12/2017 Section 101 Patient Education 2020 [employer] Writer. Follow Up Care 10/16/2021 15:00:57 With:JAYDON COE, Reno Maciel, URL Address: [address] [place] [phone] Business (1) When:Within 1 Year(s) [facility] [place] 02-11-2021 NotePatient Outreach (COVAMN) KYLER RICHARD ([id number]) 1940 M Date Time Provider Department 10/06/20 ROSSYSJOLYNN During your visit today, we recorded the following information about you: Allergies As of Date: 10/06/2020 (No Known Allergies) Date Reviewed: 11/27/2018 Reviewed by: Huyen Barraza - Fully Assessed Order(s):SARS-COVID VACCINE 1ST DOSE APPT [[id number]] Order #: [id number] FUTURE Prescriptions as of 10/06/2020 Sig: RHOPRESSA [...] Text Encounter Status:Closed by NIDIA VOGEL on 10/10/20[facility] Evaluation + Plan note Future Appointments Appointment Date:04/19/2023 09:30:00 AM Scheduled Provider:Reno INTERIANO MD Location:[facility] Appointment Type:URO Office Visit [facility] evaluation + Plan note Future Appointments Appointment Date:01/16/2023 09:45:00 AM Scheduled Provider:Reno INTERIANO MD Location:[facility] Appointment Type:URO Office Visit Appointment Date:04/19/2023 09:30:00 AM Scheduled Provider:Reno INTERIANO MD Location:[facility] Appointment Type:URO Office Visit [facility] Evaluation + Plan note Future Appointments Appointment Date:04/14/2024 11:30:00 AM Scheduled Provider:KIM Lino APRN, [place] X Location:[facility] Appointment Type:URO Office Visit [facility] evaluation + Plan note Future Appointments Appointment Date:06/30/2024 09:00:00 AM Scheduled Provider:KIM Lino APRN Lazara Jericho Location:[facility] Appointment Type:URO Office Visit Diagnostic Tests Pending * Urine Culture 06/02/24 [facility] evaluation + Plan note Future Appointments Appointment Date:06/30/2024 09:00:00 AM Scheduled Provider:KIM Lino APRN Lazara Jericho Location:[facility] Appointment Type:URO Office Visit [facility] evaluation + Plan note Future Appointments Appointment Date:07/21/2024 11:00:00 AM Scheduled Provider:KIM Lino APRN Lazara Jericho Location:[facility] Appointment Type:URO Office Visit [facility] Evaluation + Plan note Future Appointments Appointment Date:08/06/2024 11:40:00 AM Scheduled Provider:DI TROTTER PA-C Location:[facility] Appointment Type:URO Office Visit [facility] evaluation + Plan note Future Appointments Appointment Date:09/03/2024 11:20:00 AM Scheduled Provider:DI TROTTER PA-C Location:[facility] Appointment Type:URO Complex Office Visit [facility] evaluation + Plan note Future Appointments Appointment Date:10/02/2024 11:15:00 AM Scheduled Provider:Reno INTERIANO MD Location:[facility] Appointment Type:URO Office Visit [facility] evaluation + Plan note Future Appointments Appointment Date:10/30/2024 11:40:00 AM Scheduled Provider:DI TROTTER PA-C Location:[facility] Appointment Type:URO Office Visit [facility] History general Narrative - Reported* Type Description Date Medical History heart disease Medical History colon cancer Medical History glaucoma Surgical History open heart surgery Surgical History colon surgery Surgical History 3 hernia repairs Surgical History torn retina Surgical History cataracts Surgical History left total hip 2017 Surgical History Eye lid lift both 2020 Hospitalization History see above Hospitalization History back spasms 2022 [employer] Other Hospital course Narrative No data available for this section [facility] Discharge instructions No data available for this section [facility] No data available for this section [facility] Summary Purpose Family History No Family History [...] this section No Family History Records Found No data available [...] section and content) DATE CREATED AUTHOR 09/19/2021 [facility] DATE CREATED AUTHOR AUTHOR'S ORGANIZ ATION 02/01/2023 [facility] DATE CREATED AUTHOR AUTHOR'S ORGANIZ ATION 12/31/2023 [facility] DATE CREATED AUTHOR AUTHOR'S ORGANIZ ATION 02/13/2024 [place] [facility] DATE CREATED AUTHOR AUTHOR'S ORGANIZ ATION 02/14/2024 [place] Jose Enrique [facility] DATE CREATED AUTHOR AUTHOR'S ORGANIZ ATION 04/22/2024 [facility] DATE CREATED AUTHOR AUTHOR'S ORGANIZ ATION 04/23/2024 [facility] DATE CREATED AUTHOR AUTHOR'S ORGANIZ ATION 06/03/2024 Nuñez [place] [facility] DATE CREATED AUTHOR AUTHOR'S ORGANIZ ATION 06/06/2024 Nuñez [place] [facility] DATE CREATED AUTHOR AUTHOR'S ORGANIZ ATION 08/09/2024 [facility] DATE CREATED AUTHOR AUTHOR'S ORGANIZ ATION 10/04/2024 [facility] Care Team (unrecognized sect ion and content) Personnel Name: Bayron Velazquez MD Address: [address] [place] [address] Personnel Name: Bayron Velazquez MD Address: Address: [address] [place] [address] Personnel Name: Bayron Velazquez MD Address: Address: [address] [place] [address] [place] [address] [place] Personnel Name: Bayron Velazquez MD Address: Address: [address] [place] [address] [place] [address]- [place] Personnel Name: Bayron Velazquez MD Address: Address: [address] [place] [address] [place] [address]- [place] Personnel Name: Bayron Velazquez MD Address: Address: [address] [place] [address] [place] [address]- [place] Personnel Name: Bayron Velazquez MD Address: Address: [address] [place] [address] [place] [address]- [place] Personnel Name: Bayron Velazquez MD Address: Address: [address] [place] [address] [place] [address]- [place] Personnel Name: Bayron Velazquez MD Address: Address: [address] [place] [address] [place] [address]- [place] Personnel Name: Bayron Velazquez MD Address: Address: [address] [place] [address] [place] [address]- [place] Personnel Name: Bayron Velazquez MD Address: Address: [address] [place] [address] [place] [address]- [place] Personnel Name: Bayron Velazquez MD Address: Address: [address] [place] [address] [place] [address]- [place] Personnel Name: Bayron Velazquez MD Address: Address: [address] [place] [address] [place] [address]- [place] Personnel Name: Bayron Velazquez MD Address: Address: [address] [place] [address] [place] [address]- [place] REASON FOR VISIT (unrecogniz ed section and [...] BE BASED ON THE PRIMARY CLINICAL RECORDS. [facility]. provides no warranty or guarantee of the accuracy or completeness of information in this document.
--- NOTE | 2024-10-21 11:31 | PM.CN ---
Consult Note: HPI Data of Consult Patient: known to practice within the last 3 years Requesting Physician: Ambika Hill NP Primary Care Provider: Bayron Ba MD Consult Narrative Reason for consult: f/u Narrative: Prashanth Hannah an 84 year old male presents for evaluation of chronic low back and right knee pain. Reports >50% improvement from prior lumbar RFAs. Pain today 0/10 in low back, 7-8/10 in right knee. hx of lumbar spondylosis and right knee oa. currently engaged in HEP for strength and balance, status post stroke and numerous MRSA infections. denies falls/injury. continues to utilize walker for mobility. cc:: CC: Ambika Hill NP Review of Systems ROS Musculoskeletal Reports: back pain and joint pain PFSH PFSH Medical History (Updated 10/21/24 @ 11:34 by Ambika Hill NP) TABLE MOUNTAIN (hard of hearing) ?H91.90 - Unspecified hearing loss, unspecified ear (ICD-10) Lumbar stenosis with neurogenic claudication ?M48.062 - Spinal stenosis, lumbar region with neurogenic claudication (ICD-10) Lumbar spondylosis ?M47.816 - Spondylosis without myelopathy or radiculopathy, lumbar region (ICD-10) Myofascial pain ?M79.18 - Myalgia, other site (ICD-10) Acute UTI ?N39.0 - Urinary tract infection, site not specified (ICD-10) Acute urinary retention ?R33.8 - Other retention of urine (ICD-10) Acute urinary retention ?R33.8 - Other retention of urine (ICD-10) BPH (benign prostatic hyperplasia) ?N40.0 - Benign prostatic hyperplasia without lower urinary tract symptoms (ICD-10) Urethral stricture ?N35.919 - Unspecified urethral stricture, male, unspecified site (ICD-10) Gross hematuria ?R31.0 - Gross hematuria (ICD-10) Sleep apnea ?G47.30 - Sleep apnea, unspecified (ICD-10) High cholesterol ?E78.00 - Pure hypercholesterolemia, unspecified (ICD-10) Heart disease ?I51.9 - Heart disease, unspecified (ICD-10) Hypertension ?I10 - Essential (primary) hypertension (ICD-10) Glaucoma ?H40.9 - Unspecified glaucoma (ICD-10) Colon cancer ?C18.9 - Malignant neoplasm of colon, unspecified (ICD-10) Inability to walk ?R26.2 - Difficulty in walking, not elsewhere classified (ICD-10) Chronic back pain ?M54.9 - Dorsalgia, unspecified (ICD-10) ?G89.29 - Other chronic pain (ICD-10) Surgical History History of cataract extraction ?Z98.49 - Cataract extraction status, unspecified eye (ICD-10) S/P tonsillectomy and adenoidectomy ?Z90.89 - Acquired absence of other organs (ICD-10) History of hydrocelectomy ?Z98.890 - Other specified postprocedural states (ICD-10) Detached retina, left ?H33.22 - Serous retinal detachment, left eye (ICD-10) History of colectomy ?Z90.49 - Acquired absence of other specified parts of digestive tract (ICD-10) 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 Smoking status: Never smoker Non-prescribed substance use: denies use Previous occupational history: retired Highest level of school completed/degree received: Bachelor's degree Are you now , , , , never or living with a partner: Little interest or pleasure in doing things: not at all Feeling down, depressed, or hopeless: not at all Feel stressed/tense/nervous/anxious/difficulty sleeping: not at all Do you think of yourself as: straight/heterosexual Gender Identity: male Meds Home Medications and Allergies Home Medications ?Medication ?Instructions ?Recorded ?Confirmed ?Type aspirin 81 mg tablet,delayed 81 mg PO DAILY 05/20/23 07/06/24 History release atorvastatin 40 mg tablet 40 mg PO DAILY 05/20/23 07/06/24 History dorzolamide 22.3 mg-timolol 6.8 1 drp ophthalmic (eye) BID 05/20/23 07/06/24 History mg/mL eye drops icosapent ethyl 1 gram capsule 2 g PO BID 05/20/23 07/06/24 History latanoprost 0.005 % eye drops 1 drp ophthalmic (eye) .QHS 05/20/23 07/06/24 History lisinopril 10 mg tablet 10 mg PO DAILY 05/20/23 07/06/24 History meloxicam 15 mg tablet 15 mg PO DAILY 05/20/23 07/06/24 History netarsudil 0.02 % eye drops 1 drp ophthalmic (eye) DAILY 05/20/23 07/06/24 History (Rhopressa) tamsulosin 0.4 mg capsule 0.4 mg PO BID 05/20/23 07/06/24 History lidocaine 5 % topical patch 1 patch topical DAILY #30 ea 12/18/23 04/07/24 Rx brimonidine 0.2 % eye drops 1 drp ophthalmic (eye) BID 03/02/24 07/06/24 History cetirizine 10 mg tablet 10 mg PO DAILY 03/02/24 04/07/24 History fluticasone propionate 50 1 spray intranasal DAILY 03/02/24 04/07/24 History mcg/actuation nasal spray,suspension hyoscyamine sulfate 0.125 mg 0.125 mg sublingual Q6H 03/02/24 04/07/24 History sublingual tablet cephalexin 500 mg capsule 500 mg PO TID 7 days #21 caps 05/10/24 Rx etodolac 300 mg capsule 300 mg PO Q8H PRN pain #20 caps 05/22/24 Rx oxybutynin chloride 5 mg tablet 5 mg PO DAILY #10 tabs 06/03/24 07/06/24 Rx clopidogrel 75 mg tablet 75 mg PO DAILY 07/06/24 07/06/24 History metoprolol tartrate 25 mg tablet 25 mg PO BID 07/06/24 07/06/24 History Allergies Allergy/AdvReac Type Severity Reaction Status Date / Time levofloxacin (From Levaquin) AdvReac UPSET Verified 07/06/24 06:37 STOMACH Exam Constitutional Documenting provider has reviewed patient's vital signs: yes Common normals: no apparent distress, oriented x3, healthy appearing, alert and well nourished General appearance: cooperative HENMT Common normals: normocephalic, hearing grossly normal bilaterally and moist oral mucous membranes Head and scalp: normocephalic Eye Common normals: PERRL Pupil: PERRL Neck & C-Spine Common normals: full ROM General: normal visual inspection Chest Common normals: inspection of chest normal Respiratory Common normals: normal respiratory effort, no retractions and no use of accessory muscles Back & Pelvis Lumbar spine/lower back: ROM limited; no pain with ROM and no lumbar spinal tenderness Other: strength 4/5 in BLE sensation intact BLE negative facet loading Extremity Right lower extremity: knee joint Other: moderate edema and crepitus, enlarged diameter. no instability noted. pain increased with medial and lateral stress testing. Neuro Common normals: oriented x3, CN's II-XII intact bilaterally, moves all extremities, no focal motor deficits, no sensory deficits noted and deep tendon reflexes 2+ bilaterally Sensorium/orientation: alert Gait (neuro): assistive device used walker Motor exam: no movement abnormalities noted and strength abnormal Psych Common normals: mental status grossly normal, thought process normal, cooperative, affect normal, speech normal and activity/motor behavior normal Speech: normal speech Thought process: normal thought process Assessment and Plan Assessment and Plan (1) Lumbar stenosis with neurogenic claudication: (2) Lumbar spondylosis: (3) Osteoarthritis of right knee: Plan pain well controlled per PT, GRACE 29% continue to utilize wheeled walker continue HEP as tolerated not currently utilizing tylenol or OTC pain medication f/u PRN
== END 2024-10-21 10:50 | disposition home or self-care (01) ==
LOC: PM 10:49
PROVIDERS: PCP Family Medicine; Visit Provider Nurse Practitioner
DX: M48.062 Spinal stenosis, lumbar region with neurogenic claudication (principal); M47.816 Spondylosis without myelopathy or radiculopathy, lumbar region; M17.11 Unilateral primary osteoarthritis, right knee
CPT/HCPCS: G0463

== ENCOUNTER 2024-11-03 10:42 | Outpatient (OUT) | payer MEDICARE, SELFPAY ==
--- OUTSIDE RECORDS SUMMARY | 2024-11-03 10:50 | XMS_ITS | CCD ---
Author Organization [facility] CliniSyne Care Team Providers Care Business Professor Name Role Phone Bayron Velazquez Primary Care Physician GERONIMO .KARLOS Admitting Unavailable GERONIMO ., KARLOS Consulting Unavailable KARLOS ONOFRE Attending Unavailable ABEBAY ., DR MONROY Primary Care Unavailable Joelle [...] Consulting Unavailable Rocio Chan Unavailable Arun COE, Andbryce Conner Attending Unavailable Givalerieitis , Andrius Ubaldo Attending Unavailable Givalerieitis , Andrius Conner Attending Unavailable Giedraitis , Andrius Vchasity Attending Unavailable Givalerieitis , Andrius Ubaldo Attending Unavailable DONNA ANTONY Attending Unavailable BAYRON VELAZQUEZ M Primary Care Unavailable RAMEZ LERNER Admitting Unavailable DONNA ANTONY Attending Unavailable DONNA ANTONY Referring Unavailable BAYRON VELAZQUEZ M Primary Care Unavailable DONNA ANTONY M Attending Unavailable DONNA ANTONY M Referring Unavailable BAYRON VELAZQUEZ M Primary Care Unavailable JOEL, RUQIYYA T Attending Unavailable JOEL, RUQIYYA T Referring Unavailable MARCUS BAYRON M Primary Care Unavailable MALDONADO, RUQIYYA T Attending Unavailable JOEL, RUQIYYA T Referring Unavailable BAYRON VELAZQUEZ M Primary Care Unavailable MALDONADO, RUQIYYA T Attending Unavailable MALDONADO, RUQIYYA T Referring Unavailable HOY, BAYRON M Primary Care Unavailable MILLIGAN, RAMBO A Attending Unavailable MILLIGAN, RAMBO A Referring Unavailable HOY, BAYRON M Primary Care Unavailable HOY, BAYRON M Referring Unavailable HOY, BAYRON M Primary Care Unavailable Orzech, Lazara X Attending Unavailable Orzech, Lazara X Attending Unavailable mEily Maria Attending Unavailable Orzech, Lazara X Attending Unavailable Orzech, Lazara X Attending Unavailable Orzech, Lazara X Admitting Unavailable Orzech, Lazara X Attending Unavailable Reno INTERIANO Referring Unavailable INTERIANOReno Attending Unavailable Unavailable Primary Care Provider Unavailabl e MANLEY, BARRERA Referring Unavailable MANELY, BARRERA Referring Unavailable AIYEWUNMIMESHAH Attending Unavailable JOSEFINA ABAD Referring Unavailable MANLEY, BARRERA Admitting Unavailable MANLEY, BARRERA Attending Unavailable AIYEWUNMI, OLGA Attending Unavailable Orzech, Lazara X Attending Unavailable Orzech, Lazara X Admitting Unavailable Orzech, Lazara X Attending Unavailable Orzech, Lazara X Attending Unavailable Orzech, Lazara X Attending Unavailable Reno INTERIANO Attending Unavailable INTERIANO, Reno Maciel Attending Unavailable GLENNZAHEER SUTHERLAND Attending Unavailab le Orzech, Lazara X Attending Unavailable GLENNZAHEER SUTHERLAND Attending Unavailab le GLENN, ZAHEER Prakash Attending Unavailab le GLENN, ZAHEER POWERS E Attending Unavailab le Allergies Allergy Classification Reported Allergen(s) Allergy Type Date of Onset Reaction(s) Facility Quinolones (antibiotic) (2 sources) levoFLOXacin; Translations: [levofloxacin] Drug Allergy Irritation (qualifier value) [facility] (16 sources) levoFLOXacin; Translations: [levofloxacin] Drug Allergy Irritation (qualifier value) [facility] (1 source) ALLERGIES NOT ON FILE; Translations: [ALLERGIES NOT ON FILE] Propensity to adverse reactions (disorder) [facility] Repository Medications Current Medications Medication Drug [...] for 14 day(s), 60 gm, Refill(s) 0, [facility], 158, cm, 06/02/24 11:55:00 EDT, Height/Length Dosing, 96, kg, 06/22/24 16:06:00 EDT, Weight Dosing Start Date: 06/22/24 Stop Date: 07/06/24 Status: Ordered dorzolamide (15 sources) Carbonic Anhydrase Inhibitor Start: 019 take [...] day(s), # 14 cap(s), Refills(s) 0, Pharmacy: [facility], 158, cm, 06/02/24 11:55:00 EDT, Height/Length Dosing, 96, kg, 06/02/24 11:55:00 EDT, Weight Dosing Start Date: 06/02/24 Stop Date: 06/09/24 Status: Ordered Start: 09-26-2022 End: 10-06-2022 take 1 capsule by mouth twice daily doxycycline hyclate 100 mg Cap 100 mg = 1 cap(s), Oral, BID, X 10 day(s), # 20 cap(s), Refills(s) 0, Pharmacy: [id number], 160, cm, 09/26/22 13:50:00 EST, Height/Length Dosing, [...] BID, # 180 cap(s), Refills(s) 3, Pharmacy: [facility], 158, cm, 06/02/24 11:55:00 EDT, Height/Length Dosing, 96, kg, 06/22/24 16:06:00 EDT, Weight Dosing Start Date: 07/28/24 Status: Ordered Start: 02-11-2024 tamsulosin 0.4 mg Cap 0.4 mg = 1 cap(s), BID, Refills(s) 0 Start Date: 02/11/24 Status: Ordered Start: 03-07-2022 take 1 capsule by [facility] twice daily tamsulosin 0.4 mg Cap 0.4 mg = 1 cap(s), Oral, BID, # 180 cap(s), Refills(s) 3, Pharmacy: [facility] [facility], 160, cm, 10/16/21 14:26:00 EST, Height/Length [...] Corticosteroid Start: 03-17-2024 fluticasone Nasal 0.05 mg/inh [place] instill 1 spray into each nostril once [...] Long-term current use of drug therapy; Translations: [retirement (current) use of antithrombotics/antip latelets] Onset: 06-22-2024 [...] 09-28-2022 Episodic Other aftercare (1 source) Other penitentiary (current) drug therapy; Translations: [[facility] CURRENT DRUG THERAPY] Onset: 09-20-2022 Episodic Other aftercare (1 source) 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 Normal [facility] Urology Office/Clinic Noteon 10-02-2024 Urology Office/Clinic Note [...] to methicillin resistant Staphylococcus aureus (R78.81: Bacteremia) [facility] ER 07/05/2024 due to hematuria, possible More catheter obstruction. 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 Patient was discharged and returned via ambulance next morning and was transferred to [facility] at that time. Admitted to [facility] 07/06/2024 - Plavix was discontinued, three-way More placed with CBI. Blood cultures at this time positive for MRSA, thought to be secondary to urine source. 07/20/2024 ID consult w/ Dr Olga Watters at [facility]. See #1 and 2. Follow-up With When Contact Information JAYDON COE, Reon Maciel, URL [address] [place] [address]- Additional Instructions: 4 wk more exchange Patient [...] 1 celina (more content not included)... Normal [facility] Comment on above: Result Comment: Elec tronically Signed By: Reno INTERIANO MD\.br\Date and Time Signed: 10/02/24 12:01 EST\.br\Electronically Co-Signed By: Aleida Sapp\.br\Date and Time Co-Signed: 10/02/24 11:57 EST Urology [...] with voice recognition artificial intelligence software, specifically [employer], [employer] and or [employer]. Substitutions may have occurred due to the [...] CIC intermittently. Episode of retention 03/12/2024 at [facility] ER. Patient opted to keep More catheter until cystoscopic evaluation. s/p cystoscopy 04/07/2024 which showed high-grade trabeculation, open prostatic urethra. Patient was to follow-up 3 months with [facility] at that time. However, patient does make note that shortly after cystoscopy, patient did have CVA and [facility]. Started to have difficulty voiding a day or 2 prior to ER visit. [facility] ER 05/10/2024 with difficulty urinating. [...] 6. Antiplatelet or antithrombotic long-term use (Z79.02: retirement (current) use of antithrombotics/antipl atelets) s/p CVA, on plavix Follow-up With When Contact Information KIM Lino APRN, [place], [place], URL Additional Instructions: 4 week cath change [...] 0.05 mg/ (more content not included)... Normal [facility] Comment on above: Result Comment: Elec tronically Signed By: KIM Lino APRN, [place]\.br\Date and Time Signed: 09/28/24 07:09 EST Urology Office/Clinic Noteon 09-03-2024 Urology Office/Clinic Note Urology Office/Clinic Note Chief Complaint cath change [facility] Staff 83yr old male pt here for [...] E&M of Est. Patient Moderate 30-39 Min 98062 Influenza immunization status assessed 1030F Insertion of temp indwelling bladder cath, fractured cath, altered anatomy, complicated 20102 Medication list documented in medical record 1159F [...] E&M of Est. Patient Moderate 30-39 Min 88424 Insertion of temp indwelling bladder cath, fractured cath, altered anatomy, complicated 29324 Follow-up With When Contact Information Dr Interiano [...] drop(s), OPTH, TID fluticasone Nasal 0.05 mg/inh [place] hyoscyamine 0.125 mg sublingual Tab latanoprost ophthalmic [...] influenza virus vaccine, inactivated 05/24/2022 Recorded SARSCoV2 mRNA(cspbtuxuo-prel-ns chely) vac 04/20/2022 Recorded SARS-CoV-2 (COVID-19) mRNA BNT-162b2 [...] vaccine, inactivate (more content not included)... Normal [facility] Comment on above: Result Comment: Elec tronically Signed By: GLENN SCHWAB, DI Prakash\.jeffy\Date and Time Signed: 09/03/24 14:00 EST Telephoneon 08-05-2024 Telephone [id number] Kyler Richard 1940 M Date Provider Department [facility] No family history on file Normal [facility] Orders Onlyon 08-04-2024 Orders Only [id number] Kyler Richard 1940 M Date Provider Department Center 08/04/2024 [facility] No family history on file Normal [facility] CBCon 08-03-2024 Erythrocyte distribution width (RBC) [Ratio] 13.9 % Normal 11.5-15.0 [facility] Comment on above: Performed By: #### L [id number] #### [facility] (BEAKER) [address] [place] [address] ERYTHROCYTE MEAN CORPUSCULAR HEMOGLOBIN CONCENTRATION (G/DL) BY AUTOMATED 33.3 g/dL Normal 32.0-35.0 [facility] Comment on above: Performed By: #### L [id number] #### [facility] (BEAKER) [address] [place] [address] Hematocrit (Bld) [Volume fraction] 36.0 % Low 39.0-55.0 [facility] Comment on above: Performed By: #### L [id number] #### [facility] (BEAKER) [address] [place] [address] Hemoglobin (Bld) [Mass/Vol] 12.0 g/dL Low 13.0-17.0 [facility] Comment on above: Performed By: #### L [id number] #### [facility] (BEAKER) [address] [place] [address] MCH (RBC) [Entitic mass] 30.8 pg Normal 27.0-33.0 [facility] Comment on above: Performed By: #### L [id number] #### [facility] ([facility] [address] [place] [address] MCV (RBC) [Entitic vol] 92.3 fL Normal 82.0-98.0 [facility] Comment on above: Performed By: #### L [id number] #### [facility] ([facility]) [address] [place] [address] PLATELETS (10*3/UL) IN BLOOD AUTOMATED COUNT 115 10*3/uL Low 150-400 [facility] Comment on above: Performed By: #### L [id number] #### [facility] ([facility]) [address] [place] [address] RBC (Bld) [#/Vol] 3.90 10*6/uL Low 4.20-5.70 [facility] Comment on above: Performed By: #### L [id number] #### [facility] ([facility]) [address] [place] [address] WBC (Bld) [#/Vol] 3.68 10*3/uL Low 4.00-10.60 [facility] Comment on above: Performed By: #### L [id number] #### [facility] ([facility]) [address] [place] [address] Follow-Upon 08-03-2024 Follow-Up [id number] Kyler Richard 1940 M Date Provider Department Center 08/03/2024 [facility] No family history on file Level of Service:79865 LA OFFICE/OUTPATIENT ESTABLISHED LOW MDM 20 MIN Normal [facility] Telephoneon 07-27-2024 Telephone [id number] Kyler Richard 1940 M Date Provider Department Center 07/27/2024 [facility] No family history on file Normal [facility] Urology Office/Clinic Noteon 07-21-2024 Urology Office/Clinic Note Urology Office/Clinic Note History of Present Illness I have reviewed and verified the staff HPI to be accurate for this encounter. Portions of this record may have been created with voice recognition artificial intelligence software, specifically [employer], [employer] and or [employer]. Substitutions may have occurred due to the inherent limitations of voice recognition and artificial intelligence software. Physical Exam General: Well developed, well nourished, in no acute distress. Pt Assessment/Plan PRW pt 1. Bacteremia due to methicillin resistant Staphylococcus aureus (R78.81: Bacteremia) [facility] ER 07/05/2024 due to hematuria, possible More catheter obstruction. 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 Patient was discharged and returned via ambulance next morning and was transferred to [facility] at that time. Admitted to [facility] 07/06/2024 -Plavix was discontinued, three-way More placed with CBI. Blood cultures at this time positive for MRSA, thought to be secondary to urine source. 07/20/2024 ID consult w/ Dr Olga Watters at [facility] -extend linezolid for 1 additional week [...] urine, unspecified) last cath change 07/07/24 at [facility] Pt due for cath change the [...] drop(s), OPTH, TID fluticasone Nasal 0.05 mg/inh [place] hyoscyamine 0.125 mg sublingual Tab latanoprost ophthalmic [...] influenza virus vaccine, inactivated 05/24/2022 Recorded SARSCoV2 mRNA(rxfzxfrly-pnns-ak cros) vac 04/20/2022 Recorded SARS-CoV-2 (COVID-19) mRNA BNT-162b2 vax 06/19/2021 Recorded influenza virus vaccine, inactivated 06/01/2021 Recorded influenza virus vaccine, inactivated 05/23/2021 Recorded SARS-CoV-2 (COVID-19) mRNA BNT-162b2 vax 11/10/2020 Recorded SARS-CoV-2 (COVID-19) mRNA BNT-162b2 vax 10/20/2020 Recorded zoster vaccine, inactivated 08/04/2020 Recorded SARS-CoV-2 (COVID-19) Ad26 vaccine 07/06/2020 Recorded influenza virus vaccine (more content not included)... Normal [facility] Comment on above: Result Comment: Elec tronically Signed By: KIM Lino APRN, Lazara Echavarria\.br\Date and Time Signed: 07/21/24 12:21 EST CBC WITH AUTO DIFFERENTIALon 07-20-2024 Basophils (Bld) [#/Vol] 0.04 10*3/uL Normal 0.00-0.20 [facility] Comment on above: Performed By: #### L [id number] #### [facility] (BEAKER) [address] [place] [address] Basophils/100 WBC (Bld) 0.6 % Normal 0.0-1.0 [facility] Comment on above: Performed By: #### L [id number] #### [facility] (BEAKER) [address] [place] [address] Eosinophils (Bld) [#/Vol] 0.31 10*3/uL Normal 0.00-0.50 [facility] Comment on above: Performed By: #### L [id number] #### [facility] (BEAKER) [address] [place] [address] Eosinophils/100 WBC (Bld) 4.7 % Normal 0.0-6.0 [facility] Comment on above: Performed By: #### L [id number] #### [facility] (BEAKER) [address] [place] [address] Erythrocyte distribution width (RBC) [Ratio] 13.5 % Normal 11.5-15.0 [facility] Comment on above: Performed By: #### L [id number] #### [facility] [address] [place] [address] ERYTHROCYTE MEAN CORPUSCULAR HEMOGLOBIN CONCENTRATION (G/DL) BY AUTOMATED 33.0 g/dL Normal 32.0-35.0 [facility] Comment on above: Performed By: #### L [id number] #### [facility] ([facility]) [address] [place] [address] Hematocrit (Bld) [Volume fraction] 40.3 % Normal 39.0-55.0 [facility] Comment on above: Performed By: #### L [id number] #### [facility] ([facility]) [address] [place] [address] Hemoglobin (Bld) [Mass/Vol] 13.3 g/dL Normal 13.0-17.0 [facility] Comment on above: Performed By: #### L [id number] #### [facility] [address] [place] [address] Immature granulocytes (Bld) [#/Vol] 0.03 10*3/uL Normal 0.00-0.20 [facility] Comment on above: Performed By: #### L [id number] #### [facility] [address] [place] [address] Immature granulocytes/100 WBC (Bld) 0.5 % Normal 0.0-1.0 [facility] Comment on above: Performed By: #### L [id number] #### [facility] (BEAKER) [address] [place] [address] Lymphocytes (Bld) [#/Vol] 2.23 10*3/uL Normal 1.20-4.00 [facility] Comment on above: Performed By: #### L [id number] #### [facility] (BEAKER) [address] [place] [address] Lymphocytes/100 WBC (Bld) 34.0 % Normal 20.0-45.0 [facility] Comment on above: Performed By: #### L [id number] #### [facility] ([facility]) [address] [place] [address] MCH (RBC) [Entitic mass] 31.0 pg Normal 27.0-33.0 [facility] Comment on above: Performed By: #### L [id number] #### [facility] ([facility]) [address] [place] [address] MCV (RBC) [Entitic vol] 93.9 fL Normal 82.0-98.0 [facility] Comment on above: Performed By: #### L [id number] #### [facility] ([facility]) [address] [place] [address] Monocytes (Bld) [#/Vol] 0.42 10*3/uL Normal 0.10-1.00 [facility] Comment on above: Performed By: #### L [id number] #### [facility] ([facility]) [address] [place] [address] Monocytes/100 WBC (Bld) 6.4 % Normal 5.0-12.0 [facility] Comment on above: Performed By: #### L [id number] #### [facility] ([facility]) [address] [place] [address] Neutrophils (Bld) [#/Vol] 3.53 10*3/uL Normal 1.60-7.60 [facility] Comment on above: Performed By: #### L [id number] #### [facility] ([facility]) [address] [place] [address] Neutrophils/100 WBC (Bld) 53.8 % Normal 40.0-72.0 [facility] Comment on above: Performed By: #### L [id number] #### [facility] [address] [place] [address] NRBC (PER 100 WBCS) BY AUTOMATED COUNT 0.0 % Normal 0 [facility] Comment on above: Performed By: #### L [id number] #### [facility] (BEAKER) [address] [place] [address] PLATELETS (10*3/UL) IN BLOOD AUTOMATED COUNT 255 10*3/uL Normal 150-400 [facility] Comment on above: Performed By: #### L [id number] #### [facility] ([facility]) [address] [place] [address] RBC (Bld) [#/Vol] 4.29 10*6/uL Normal 4.20-5.70 [facility] Comment on above: Performed By: #### L [id number] #### [facility] ([facility]) [address] [place] [address] WBC (Bld) [#/Vol] 6.56 10*3/uL Normal 4.00-10.60 [facility] Comment on above: Performed By: #### L [id number] #### [facility] ([facility]) [address] [place] [address] Follow-Upon 07-20-2024 Follow-Up [id number] Kyler Richard 1940 M Date Provider Department [place] 07/20/2024 [facility] No family history on file Level of Service:83233 LA OFFICE/OUTPATIENT ESTABLISHED LOW MDM 20 MIN Normal [facility] Labon 07-20-2024 Lab [id number] Kyler Richard 1940 M Date Provider Department [place] 07/20/2024 2244-[facility] MP LAB RESOURCE MP DRAW Medical Pavi No family history on file Normal [facility] 36on 07-17-2024 36 Left voice message f or patient to contact us. Provider would like patient to get a cbc prior to visit on Saturday07/18/2024. Left voice mail x 2. Contacted [facility] patient [facility] & they will draw CBC before appt. On Saturday per Provider. Order faxed & confirmation received. Normal [facility] BASIC METABOLIC PANELon 06-26 Anion gap [Moles/Vol] 9 mmol/L Normal 7-20 [facility] Comment on above: Performed By: #### L [id number] #### [facility] [address] [place] [address] Calcium [Mass/Vol] 7.8 mg/dL Low 8.6-10.[address] [facility] Comment on above: Performed By: #### L [id number] #### [facility] ([facility]) [address] [place] [address] Chloride [Moles/Vol] 106 mmol/L Normal 98-107 [facility] Comment on above: Performed By: #### L [id number] #### [facility] ([facility]) [address] [place] [address] CO2 [Moles/Vol] 25 mmol/L Normal 21-31 [facility] Comment on above: Performed By: #### L [id number] #### [facility] ([facility]) [address] [place] [address] Creatinine [Mass/Vol] 0.65 mg/dL Low 0.70-1.30 [facility] Comment on above: Performed By: #### L [id number] #### [facility] ([facility]) [address] [place] [address] GLOMERULAR FILTRATION RATE ML/MIN/1.73 SQ M.PREDICTED 94.7 mL/min/1.73m*2 Normal >60.0 [facility] Comment on above: Result Comment: [facility]???s estimated glomerular filtration rate (eGFR) will [...] group of individuals. Performed By: #### L [id number] #### [facility] ([facility] [address] [place] [address] Glucose [Mass/Vol] 116 mg/dL High 70-[address] [facility] Comment on above: Performed By: #### L [id number] #### [facility] ([facility]) [address] [place] [address] Potassium [Moles/Vol] 3.2 mmol/L Low 3.5-5.1 [facility] Comment on above: Performed By: #### L [id number] #### [facility] ([facility] [facility]) [address] [place] [address] Sodium [Moles/Vol] 137 mmol/L Normal 136-[address] [facility] Comment on above: Performed By: #### L [id number] #### [facility] ([facility]) [address] [place] [address] Urea nitrogen [Mass/Vol] 21 mg/dL Normal 7-25 [facility] Comment on above: Performed By: #### L [id number] #### [facility] ([facility]) [address] [place] [address] UREA NITROGEN/CREATININE (MASS RATIO) IN SER/PLAS 32.3 Normal [facility] Comment on above: Performed By: #### L [id number] #### [facility] ([facility]) [address] [place] [address] CBCon 07-13-2024 Erythrocyte distribution width (RBC) [Ratio] 13.7 % Normal 11.5-15.0 [facility] Comment on above: Performed By: #### L [id number] #### [facility] ([facility]) [address] [place] [address] ERYTHROCYTE MEAN CORPUSCULAR HEMOGLOBIN CONCENTRATION (G/DL) BY AUTOMATED 34.3 g/dL Normal 32.0-35.0 [facility] Comment on above: Performed By: #### L [id number] #### [facility] ([facility] [address] [place] [address] Hematocrit (Bld) [Volume fraction] 35.6 % Low 39.0-55.0 [facility] Comment on above: Performed By: #### L [id number] #### [facility] ([facility]) [address] [address] Hemoglobin (Bld) [Mass/Vol] 12.2 g/dL Low 13.0-17.0 [facility] Comment on above: Performed By: #### L [id number] #### [facility] ([facility]) [address] [place] [address] MCH (RBC) [Entitic mass] 31.4 pg Normal 27.0-33.0 [facility] Comment on above: Performed By: #### L [id number] #### [facility] ([facility]) [address] [place] [address] MCV (RBC) [Entitic vol] 91.5 fL Normal 82.0-98.0 [facility] Comment on above: Performed By: #### L [id number] #### [facility] ([facility]) [address] [place] [address] PLATELETS (10*3/UL) IN BLOOD AUTOMATED COUNT 193 10*3/uL Normal 150-400 [facility] Comment on above: Performed By: #### L [id number] #### [facility] ([facility]) [address] [place] [address] RBC (Bld) [#/Vol] 3.89 10*6/uL Low 4.20-5.70 [facility] Comment on above: Performed By: #### L [id number] #### [facility] ([facility]) [address] [place] [address] WBC (Bld) [#/Vol] 5.59 10*3/uL Normal 4.00-10.60 [facility] Comment on above: Performed By: #### L [id number] #### [facility] ([facility] [address] [place] [address] CONSULTon 11-18-2024 CONSULT Discharge Update Plannin:42pm SW spoke with patient face to face this morning. Patient has SW consult for [facility]. Patient is currently active with [facility], return referral sent and they are accepting. No further OTM needs discovered at this time. [facility] NURSNOTEon 07-13-2024 NURSNOTE Discharge instructio ns provided [...] the front lobby for discharge. Normal [facility] NURSNOTE Per ID pt will be discharged on oral antibiotics no need to place PICC at this time, RN aware [facility] NURSNOTE PICC team saw order for PICC line, PICC team reached out to ID department making sure final recommendations were complete on discharge IV medication, once PICC team aware of plan then PICC line can be placed [facility] 30on 07-12-2024 30 Problem: Pain - Adul [...] pain reassessments, pain medication administration as ordered. [facility] 30 Daily Case Managemen t Update Multidisciplinary rounds have been completed. Barriers to Discharge: Needs 4 weeks of IV vanco. Midline being placed today. Need final ID script and referral to bioscripts. Patient discharge ready tomorrow. Plan is home with [facility]. 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 Answer: debility 07/06/24 1250 07/06/24 1250 OT eval and treat Until therapy completed Question: Reason for OT? Answer: debility 07/06/24 1250 Normal [facility] VANCOMYCIN, TROUGHon 024 VANCOMYCIN (UG/ML) IN SER/PLAS - TROUGH 6.3 ug/mL Normal 5.0-20.0 [facility] Comment on above: Order Comment: Pleas e draw before 1700 vancomycin dose Performed By: #### L [id number] #### [facility] ([facility]) [address] [place] [address] 30on 07-11-2024 30 The patient is Moderately [...] or improved Outcome: Not Progressing Normal [facility] BASIC METABOLIC PANELon 06-26 Anion gap [Moles/Vol] 11 mmol/L Normal 7-20 [facility] Comment on above: Performed By: #### L [id number] #### [facility] ([facility]) [address] [place] [address] Calcium [Mass/Vol] 7.8 mg/dL Low 8.6-10.[address] [facility] Comment on above: Performed By: #### L [id number] #### [facility] ([facility]) [address] [place] [address] Chloride [Moles/Vol] 107 mmol/L Normal 98-107 [facility] Comment on above: Performed By: #### L [id number] #### [facility] ([facility]) [address] [place] [address] CO2 [Moles/Vol] 22 mmol/L Normal 21-31 [facility] Comment on above: Performed By: #### L [id number] #### [facility] ([facility]) [address] [place] [address] Creatinine [Mass/Vol] 0.65 mg/dL Low 0.70-1.30 [facility] Comment on above: Performed By: #### L [id number] #### [facility] ([facility]) [address] [place] [address] GLOMERULAR FILTRATION RATE ML/MIN/1.73 SQ M.PREDICTED 94.7 mL/min/1.73m*2 Normal >60.0 [facility] Comment on above: Result Comment: [facility]???s estimated glomerular filtration rate (eGFR) will [...] individuals. Performed By: #### L [id number] #### [facility] ([facility]) [address] [place] [address] Glucose [Mass/Vol] 124 mg/dL High 70-[address] [facility] Comment on above: Performed By: #### L [id number] #### [facility] ([facility]) [address] [place] [address] Potassium [Moles/Vol] 3.7 mmol/L Normal 3.5-5.1 [facility] Comment on above: Performed By: #### L [id number] #### [facility] ([facility]) [address] [place] [address] Sodium [Moles/Vol] 136 mmol/L Normal 136-[address] [facility] Comment on above: Performed By: #### L [id number] #### [facility] ([facility]) [address] [place] [address] Urea nitrogen [Mass/Vol] 19 mg/dL Normal 7-25 [facility] Comment on above: Performed By: #### L [id number] #### [facility] ([facility]) [address] [place] [address] UREA NITROGEN/CREATININE (MASS RATIO) IN SER/PLAS 29.2 Normal [facility] Comment on above: Performed By: #### L [id number] #### [facility] ([facility]) [address] [place] [address] BLOOD CULTUREon 07-11-2024 Bacteria identified Cx Nom (Bld) No growth at 5 days Normal [facility] Comment on above: Performed By: #### L [id number] ####[facility] ([facility])[address] [place] [address] C-REACTIVE PROTEINon 024 C REACTIVE PROTEIN (MG/L) IN SER/PLAS 185.4 mg/L High <=5.0 [facility] Comment on above: Result Comment: Test ing performed using a new methodology, turbidimetry. Normal ranges have been updated. Old normal range was <8 mg/L. Performed By: #### L [id number] #### [facility] ([facility]) [address] [place] [address] CKon 07-11-2024 CREATINE KINASE (U/L) IN SER/PLAS 21.0 U/L Low 30.0-223.0 [facility] Comment on above: Performed By: #### L [id number] #### [facility] ([facility]) [address] [place] [address] CONSULTon 07-11-2024 CONSULT -- Attestation signed by [...] did undergo a lumbar nerve ablation in [place]. He cannot recall who did the procedure [...] MD, PGY-1 Orthopaedic Surgery Resident Normal [facility] SEDIMENTATION RATEon 024 SEDIMENTATION RATE, ERYTHROCYTE 94 mm/hr High <20 [facility] Comment on above: Performed By: #### L [id number] #### [facility] ([facility]) [address] [place] [address] 30on 07-10-2024 30 The patient is Moderately [...] or improved Outcome: Not Progressing Normal [facility] 30 Daily Case Managemen t Update Multidisciplinary rounds have been completed. Barriers to Discharge: 07/10 Hematuria, MRSA positive Ucx, await sensitivites. Continue IV vanco. More(maintain on discharge). Family declines SNF, plan to return home with [facility]. Diet: Dietary Orders (From admission, onward) Start Ordered 07/06/24 1347 Regular Diet Heart Healthy/HTN, CABG,Stroke, (2gNA, low fat, low cholesterol) Diet effective now Question Answer Comment Room Service? Yes Fat restriction: Heart Healthy/HTN, CABG,Stroke, (2gNA, low fat, low cholesterol) 07/06/24 1347 Physician Expected Discharge Date: 07/08/2024 Discharge Delays: PT Six Click Score: 16 OT Six Click Score: 17 PT Recommendations: alf facility placement (Pt likely to refuse placement. [...] OT? Answer: debility 07/06/24 1250 Normal [facility] BASIC METABOLIC PANELon 06-26 Anion gap [Moles/Vol] 8 mmol/L Normal - [facility] Comment on above: Performed By: #### L [id number] #### [facility] ([facility]) [address] [place] [address] Calcium [Mass/Vol] 7.9 mg/dL Low 8.6-10.[address] [facility] Comment on above: Performed By: #### L [id number] #### [facility] ([facility]) [address] [place] [address] Chloride [Moles/Vol] 104 mmol/L Normal 98-107 [facility] Comment on above: Performed By: #### L [id number] #### [facility] [address] [place] [address] CO2 [Moles/Vol] 25 mmol/L Normal 21-31 [facility] Comment on above: Performed By: #### L [id number] #### [facility] ([facility]) [address] [place] [address] Creatinine [Mass/Vol] 0.73 mg/dL Normal 0.70-1.30 [facility] Comment on above: Performed By: #### L [id number] #### [facility] ([facility]) [address] [place] [address] GLOMERULAR FILTRATION RATE ML/MIN/1.73 SQ M.PREDICTED 91.4 mL/min/1.73m*2 Normal >60.0 [facility] Comment on above: Result Comment: [facility]???s estimated glomerular filtration rate (eGFR) will [...] individuals. Performed By: #### L [id number] #### [facility] ([facility] [address] [place] [address] Glucose [Mass/Vol] 109 mg/dL High 70-[address] [facility] Comment on above: Performed By: #### L [id number] #### [facility] ([facility] [address] [place] [address] Potassium [Moles/Vol] 3.2 mmol/L Low 3.5-5.1 [facility] Comment on above: Performed By: #### L [id number] #### [facility] ([facility]) [address] [place] [address] Sodium [Moles/Vol] 134 mmol/L Low 136-[address] [facility] Comment on above: Performed By: #### L [id number] #### [facility] ([facility]) [address] [place] [address] Urea nitrogen [Mass/Vol] 20 mg/dL Normal 7-25 [facility] Comment on above: Performed By: #### L [id number] #### [facility] ([facility]) [address] [place] [address] UREA NITROGEN/CREATININE (MASS RATIO) IN SER/PLAS 27.4 Normal [facility] Comment on above: Performed By: #### L [id number] #### [facility] ([facility]) [address] [place] [address] BLOOD CULTUREon 07-10-2024 Bacteria identified Cx Nom (Bld) No growth at 5 days Normal [facility] Comment on above: Performed By: #### L [id number] ####[facility] ([facility])[address] [place] [address] Bacteria identified Cx Nom (Bld) STAPHYLOCOCCUS AUREUS METHICILLIN (OXACILLIN) RESISTANT Critically abnormal [facility] Comment on above: Result Comment: Meth icillin-Resistant Staphylococcus aureus For Susceptibility Results Please Refer to Performed By: #### L [id number] ####[facility] ([facility])[address] [place] [address] GRAM STAIN RESULT Positive Abnormal [facility] Comment on above: Performed By: #### L [id number] ####[facility] ([facility])[address] [place] [address] CBC WITH AUTO DIFFERENTIALon 07-10-2024 Basophils (Bld) [#/Vol] 0.03 10*3/uL Normal 0.00-0.20 [facility] Comment on above: Performed By: #### L [id number] #### [facility] [address] [place] [address] Basophils/100 WBC (Bld) 0.5 % Normal 0.0-1.0 [facility] Comment on above: Performed By: #### L [id number] #### [facility] ([facility] [address] [place] [address] Eosinophils (Bld) [#/Vol] 0.06 10*3/uL Normal 0.00-0.50 [facility] Comment on above: Performed By: #### L [id number] #### [facility] ([facility]) [address] [place] [address] Eosinophils/100 WBC (Bld) 1.0 % Normal 0.0-6.0 [facility] Comment on above: Performed By: #### L [id number] #### [facility] ([facility]) [address] [place] [address] Erythrocyte distribution width (RBC) [Ratio] 13.4 % Normal 11.5-15.0 [facility] Comment on above: Performed By: #### L [id number] #### [facility] ([facility]) [address] [place] [address] ERYTHROCYTE MEAN CORPUSCULAR HEMOGLOBIN CONCENTRATION (G/DL) BY AUTOMATED 34.0 g/dL Normal 32.0-35.0 [facility] Comment on above: Performed By: #### L [id number] #### [facility] [address] [place] [address] Hematocrit (Bld) [Volume fraction] 35.9 % Low 39.0-55.0 [facility] Comment on above: Performed By: #### L [id number] #### [facility] [address] [place] [address] Hemoglobin (Bld) [Mass/Vol] 12.2 g/dL Low 13.0-17.0 [facility] Comment on above: Performed By: #### L [id number] #### [facility] [address] [place] [address] Immature granulocytes (Bld) [#/Vol] 0.03 10*3/uL Normal 0.00-0.20 [facility] Comment on above: Performed By: #### L [id number] #### [facility] [address] [place] [address] Immature granulocytes/100 WBC (Bld) 0.5 % Normal 0.0-1.0 [facility] Comment on above: Performed By: #### L [id number] #### [facility] ([facility]) [address] [place] [address] Lymphocytes (Bld) [#/Vol] 0.80 10*3/uL Low 1.20-4.00 [facility] Comment on above: Performed By: #### L [id number] #### [facility] ([facility]) [address] [place] [address] Lymphocytes/100 WBC (Bld) 12.9 % Low 20.0-45.0 [facility] Comment on above: Performed By: #### L [id number] #### [facility] ([facility]) [address] [place] [address] MCH (RBC) [Entitic mass] 30.9 pg Normal 27.0-33.0 [facility] Comment on above: Performed By: #### L [id number] #### [facility] ([facility]) [address] [place] [address] MCV (RBC) [Entitic vol] 90.9 fL Normal 82.0-98.0 [facility] Comment on above: Performed By: #### L [id number] #### [facility] [address] [place] [address] Monocytes (Bld) [#/Vol] 0.58 10*3/uL Normal 0.10-1.00 [facility] Comment on above: Performed By: #### L [id number] #### [facility] ([facility] [address] [place] [address] Monocytes/100 WBC (Bld) 9.3 % Normal 5.0-12.0 [facility] Comment on above: Performed By: #### L [id number] #### [facility] [address] [address] Neutrophils (Bld) [#/Vol] 4.71 10*3/uL Normal 1.60-7.60 [facility] Comment on above: Performed By: #### L [id number] #### [facility] ([facility]) [address] [address] Neutrophils/100 WBC (Bld) 75.8 % High 40.0-72.0 [facility] Comment on above: Performed By: #### L [id number] #### [facility] ([facility]) [address] [place] [address] NRBC (PER 100 WBCS) BY AUTOMATED COUNT 0.0 % Normal 0 [facility] Comment on above: Performed By: #### L [id number] #### [facility] ([facility]) [address] [place] [address] PLATELETS (10*3/UL) IN BLOOD AUTOMATED COUNT 147 10*3/uL Low 150-400 [facility] Comment on above: Performed By: #### L [id number] #### [facility] ([facility]) [address] [place] [address] RBC (Bld) [#/Vol] 3.95 10*6/uL Low 4.20-5.70 [facility] Comment on above: Performed By: #### L [id number] #### [facility] [address] [place] [address] WBC (Bld) [#/Vol] 6.21 10*3/uL Normal 4.00-10.60 [facility] Comment on above: Performed By: #### L [id number] #### [facility] ([facility]) [address] [place] [address] MR CERVICAL SPINE W AND WO C [...] Jarvis Barth. 8 Invalid Interpretation Code [facility] MR LUMBAR SPINE W AND WO [...] Jarvis Barth. 8 Invalid Interpretation Code [facility] 30on 07-09-2024 30 The patient is [...] maintained or improved Outcome: Progressing Normal [facility] 30 The patient is Moderately Stable - Low risk of patient condition declining or worsening The patient's goals for the shift include dc The clinical goals for the shift include comfort Normal [facility] CONSULTon 07-09-2024 CONSULT -- Attestation signed [...] all [employer] (more content not included)... [facility] NURSNOTEon 07-09-2024 NURSNOTE Patient sleeping in bed. No needs identified. Critical value of MRSA+ urine. Physician notified via [employer] chat. Isolation precautions being implemented. Will continue to monitor. [facility] 30on 07-08-2024 30 Daily Case Managemen t Update Multidisciplinary rounds have been completed. Barriers to Discharge: Await Cultures/Infx work-up, On Vanco IV, More(needs to maintain on discharge) Dc Plan : PT=SNF, OT=C, await pt's final decision : SNF placement (precert needed) vs Home with & continue [facility] OBV status : Medicare Outpatient Observation Notice [...] OT Six Click Score: 17 PT Recommendations: alf facility placement (Pt likely to refuse placement. [...] OT? Answer: debility 07/06/24 1250 Normal [facility] 30 The patient is Moderately Stable [...] maintained or improved Outcome: Progressing Normal [facility] BASIC METABOLIC PANELon 11 Anion gap [Moles/Vol] 9 mmol/L Normal 7-20 [facility] Comment on above: Performed By: #### L [id number] #### [facility] ([facility]) [address] [place] [address] Calcium [Mass/Vol] 8.4 mg/dL Low 8.6-10.[address] [facility] Comment on above: Performed By: #### L [id number] #### [facility] ([facility]) [address] [place] [address] Chloride [Moles/Vol] 106 mmol/L Normal 98-107 [facility] Comment on above: Performed By: #### L [id number] #### [facility] ([facility]) [address] [place] [address] CO2 [Moles/Vol] 25 mmol/L Normal 21-31 [facility] Comment on above: Performed By: #### L [id number] #### [facility] ([facility]) [address] [place] [address] Creatinine [Mass/Vol] 0.67 mg/dL Low 0.70-1.30 [facility] Comment on above: Performed By: #### L [id number] #### [facility] [facility] ([facility]) [address] [place] [address] GLOMERULAR FILTRATION RATE ML/MIN/1.73 SQ M.PREDICTED 93.8 mL/min/1.73m*2 Normal >60.0 [facility] Comment on above: Result Comment: The [facility]???s estimated glomerular filtration rate (eGFR) will [...] group of individuals. Performed By: #### L [id number] #### [facility] ([facility]) [address] [place] [address] Glucose [Mass/Vol] 118 mg/dL High 70-[address] [facility] Comment on above: Performed By: #### L [id number] #### [facility] ([facility]) [address] [place] [address] Potassium [Moles/Vol] 3.6 mmol/L Normal 3.5-5.1 [facility] Comment on above: Performed By: #### L [id number] #### [facility] ([facility]) [address] [place] [address] Sodium [Moles/Vol] 136 mmol/L Normal 136-[address] [facility] Comment on above: Performed By: #### L [id number] #### [facility] ([facility]) [address] [place] [address] Urea nitrogen [Mass/Vol] 20 mg/dL Normal 7-25 [facility] Comment on above: Performed By: #### L [id number] #### [facility] ([facility]) [address] [place] [address] UREA NITROGEN/CREATININE (MASS RATIO) IN SER/PLAS 29.9 Normal [facility] Comment on above: Performed By: #### L [id number] #### [facility] ([facility]) [address] [place] [address] BLOOD CULTUREon 11-13-2024 Bacteria identified Cx Nom (Bld) STAPHYLOCOCCUS AUREUS METHICILLIN (OXACILLIN) RESISTANT Critically abnormal [facility] Comment on above: Order Comment: From a different site than #1. Result Comment: Meth icillin-Resistant Staphylococcus aureus For Susceptibility Results Please Refer to Performed By: #### L [id number] ####[facility] ([facility])[address] [place] [address] Clindamycin [Susc] >[address] [facility] Comment on above: Performed By: #### L [id number] ####[facility] ([facility])[address] [place] [address] DAPTOmycin [Susc] <=[address] [facility] Comment on above: Performed By: #### L [id number] ####[facility] ([facility])[address] [place] [address] GRAM STAIN RESULT Positive Abnormal [facility] Comment on above: Order Comment: From a different site than #1. Performed By: #### L [id number] ####[facility] ([facility])[address] [place] [address] Linezolid [Susc] <=1 Susceptible [facility] Comment on above: Performed By: #### L [id number] ####[facility] ([facility])[address] [place] [address] Oxacillin [Susc] >2 Resistant [facility] Comment on above: Performed By: #### L [id number] ####[facility] ([facility])[address] [place] [address] Tetracycline [Susc] >8 Resistant [facility] Comment on above: Performed By: #### L [id number] ####[facility] ([facility])[address] [place] [address] Trimethoprim+Sulfam ethoxazole [Susc] <=0.5/9.5 Susceptible [facility] Comment on above: Performed By: #### L [id number] ####[facility] ([facility])[address] [place] [address] Vancomycin [Susc] <=0.[address] [facility] Comment on above: Performed By: #### L [id number] ####[facility] (BEAKER)[address] [place] [address] CBC WITH AUTO DIFFERENTIALon 07-08-2024 Basophils (Bld) [#/Vol] 0.03 10*3/uL Normal 0.00-0.20 [facility] Comment on above: Performed By: #### L [id number] #### [facility] ([facility]) [address] [place] [address] Basophils/100 WBC (Bld) 0.2 % Normal 0.0-1.0 [facility] Comment on above: Performed By: #### L [id number] #### [facility] ([facility]) [address] [place] [address] Eosinophils (Bld) [#/Vol] 0.07 10*3/uL Normal 0.00-0.50 [facility] Comment on above: Performed By: #### L [id number] #### [facility] ([facility]) [address] [place] [address] Eosinophils/100 WBC (Bld) 0.6 % Normal 0.0-6.0 [facility] Comment on above: Performed By: #### L [id number] #### [facility] ([facility]) [address] [place] [address] Erythrocyte distribution width (RBC) [Ratio] 14.0 % Normal 11.5-15.0 [facility] Comment on above: Performed By: #### L [id number] #### [facility] [address] [place] [address] ERYTHROCYTE MEAN CORPUSCULAR HEMOGLOBIN CONCENTRATION (G/DL) BY AUTOMATED 33.7 g/dL Normal 32.0-35.0 [facility] Comment on above: Performed By: #### L [id number] #### [facility] ([facility]) [address] [place] [address] Hematocrit (Bld) [Volume fraction] 37.4 % Low 39.0-55.0 [facility] Comment on above: Performed By: #### L [id number] #### [facility] ([facility]) [address] [place] [address] Hemoglobin (Bld) [Mass/Vol] 12.6 g/dL Low 13.0-17.0 [facility] Comment on above: Performed By: #### L [id number] #### [facility] ([facility]) [address] [place] [address] Immature granulocytes (Bld) [#/Vol] 0.10 10*3/uL Normal 0.00-0.20 [facility] Comment on above: Performed By: #### L [id number] #### [facility] ([facility]) [address] [place] [address] Immature granulocytes/100 WBC (Bld) 0.8 % Normal 0.0-1.0 [facility] Comment on above: Performed By: #### L [id number] #### [facility] ([facility]) [address] [place] [address] Lymphocytes (Bld) [#/Vol] 1.24 10*3/uL Normal 1.20-4.00 [facility] Comment on above: Performed By: #### L [id number] #### [facility] ([facility]) [address] [place] [address] Lymphocytes/100 WBC (Bld) 10.2 % Low 20.0-45.0 [facility] Comment on above: Performed By: #### L [id number] #### [facility] ([facility]) [address] [place] [address] MCH (RBC) [Entitic mass] 31.1 pg Normal 27.0-33.0 [facility] Comment on above: Performed By: #### L [id number] #### [facility] ([facility]) [address] [place] [address] MCV (RBC) [Entitic vol] 92.3 fL Normal 82.0-98.0 [facility] Comment on above: Performed By: #### L [id number] #### [facility] [address] [place] [address] Monocytes (Bld) [#/Vol] 0.90 10*3/uL Normal 0.10-1.00 [facility] Comment on above: Performed By: #### L [id number] #### [facility] ([facility]) [address] [place] [address] Monocytes/100 WBC (Bld) 7.4 % Normal 5.0-12.0 [facility] Comment on above: Performed By: #### L [id number] #### [facility] ([facility]) [address] [place] [address] Neutrophils (Bld) [#/Vol] 9.77 10*3/uL High 1.60-7.60 [facility] Comment on above: Performed By: #### L [id number] #### [facility] ([facility]) [address] [place] [address] Neutrophils/100 WBC (Bld) 80.8 % High 40.0-72.0 [facility] Comment on above: Performed By: #### L [id number] #### [facility] ([facility]) [address] [place] [address] NRBC (PER 100 WBCS) BY AUTOMATED COUNT 0.0 % Normal 0 [facility] Comment on above: Performed By: #### L [id number] #### [facility] ([facility]) [address] [place] [address] PLATELETS (10*3/UL) IN BLOOD AUTOMATED COUNT 151 10*3/uL Normal 150-400 [facility] Comment on above: Performed By: #### L [id number] #### [facility] [address] [place] [address] RBC (Bld) [#/Vol] 4.05 10*6/uL Low 4.20-5.70 [facility] Comment on above: Performed By: #### L [id number] #### [facility] (BEAKER) [address] [place] [address] WBC (Bld) [#/Vol] 12.11 10*3/uL High 4.00-10.60 [facility] Comment on above: Performed By: #### L [id number] #### [facility] ([facility]ER) [address] [place] [address] 30on 07-07-2024 30 Daily Case Managemen t [...] OT Six Click Score: 17 PT Recommendations: alf facility placement (Possible discharge home with improved mobility.) OT Recommendations: Home OT, With assist New Consults: Therapy Orders (From admission, onward) Start Ordered 07/06/24 1250 PT eval and treat Until therapy completed Question: Reason for PT? Answer: debility 07/06/24 1250 07/06/24 1250 OT eval and treat Until therapy completed Question: Reason for OT? Answer: debility 07/06/24 1250 Normal [facility] 30 The patient is Moderately Stable [...] maintained or improved Outcome: Progressing Normal [facility] 30 The patient is Moderately Stable [...] maintained or improved Outcome: Progressing Normal [facility] BASIC METABOLIC PANELon 11 Anion gap [Moles/Vol] 9 mmol/L Normal 7-20 [facility] Comment on above: Performed By: #### L [id number] ####[facility] ([facility])[address] [place] [address] Calcium [Mass/Vol] 8.3 mg/dL Low 8.6-10.[address] [facility] Comment on above: Performed By: #### L [id number] ####[facility] ([facility]ER)[address] [place] [address] Chloride [Moles/Vol] 108 mmol/L High 98-107 [facility] Comment on above: Performed By: #### L [id number] ####[facility] ([facility])[address] [place] [address] CO2 [Moles/Vol] 26 mmol/L Normal 21-31 [facility] Comment on above: Performed By: #### L [id number] ####[facility] ([facility])[address] [place] [address] Creatinine [Mass/Vol] 0.77 mg/dL Normal 0.70-1.30 [facility] Comment on above: Performed By: #### L [id number] ####[facility] ([facility])[address] [place] [address] GLOMERULAR FILTRATION RATE ML/MIN/1.73 SQ M.PREDICTED 89.9 mL/min/1.73m*2 Normal >60.0 [facility] Comment on above: Result Comment: [facility]???s estimated glomerular filtration rate (eGFR) will [...] of individuals. Performed By: #### L [id number] ####[facility] ([facility])[address] [facility] [address] Glucose [Mass/Vol] 106 mg/dL High 70-[address] [facility] Comment on above: Performed By: #### L [id number] ####[facility] ([facility])[address] [place] [address] Potassium [Moles/Vol] 3.6 mmol/L Normal 3.5-5.1 [facility] Comment on above: Performed By: #### L [id number] ####[facility] ([facility])[address] [place] [address] Sodium [Moles/Vol] 139 mmol/L Normal 136-[address] [facility] Comment on above: Performed By: #### L [id number] ####[facility] ([facility] [place] [address] Urea nitrogen [Mass/Vol] 23 mg/dL Normal 7-25 [facility] Comment on above: Performed By: #### L [id number] ####[facility] ([facility])[address] [place] [address] UREA NITROGEN/CREATININE (MASS RATIO) IN SER/PLAS 29.9 Normal [facility] Comment on above: Performed By: #### L [id number] ####[facility] ([facility])[address] [place] [address] CBCon 07-07-2024 Erythrocyte distribution width (RBC) [Ratio] 14.3 % Normal 11.5-15.0 [facility] Comment on above: Performed By: #### L [id number] ####[facility] (BEAKER)[address] [place] [address] ERYTHROCYTE MEAN CORPUSCULAR HEMOGLOBIN CONCENTRATION (G/DL) BY AUTOMATED 34.0 g/dL Normal 32.0-35.0 [facility] Comment on above: Performed By: #### L [id number] ####[facility] [place] [address] Hematocrit (Bld) [Volume fraction] 37.1 % Low 39.0-55.0 [facility] Comment on above: Performed By: #### L [id number] ####[facility] [place] [address] Hemoglobin (Bld) [Mass/Vol] 12.6 g/dL Low 13.0-17.0 [facility] Comment on above: Performed By: #### L [id number] ####[facility] (BEAKER)[address] [place] [address] MCH (RBC) [Entitic mass] 31.3 pg Normal 27.0-33.0 [facility] Comment on above: Performed By: #### L [id number] ####[facility] (BEAKER)[address] [place] [address] MCV (RBC) [Entitic vol] 92.3 fL Normal 82.0-98.0 [facility] Comment on above: Performed By: #### L [id number] ####[facility] (BE[facility]ER)[address] [place] [address] PLATELETS (10*3/UL) IN BLOOD AUTOMATED COUNT 156 10*3/uL Normal 150-400 [facility] Comment on above: Performed By: #### L [id number] ####[facility] (BE[facility]ER)[address] [place] [address] RBC (Bld) [#/Vol] 4.02 10*6/uL Low 4.20-5.70 [facility] Comment on above: Performed By: #### L [id number] ####[facility] (BE[facility]ER)[address] [place] [address] WBC (Bld) [#/Vol] 11.64 10*3/uL High 4.00-10.60 [facility] Comment on above: Performed By: #### L [id number] ####[facility] (BEAKER)[address] [place] [address] CONSULTon 07-07-2024 CONSULT prospecting observer Oj vargas Note Visit Date: 07/07/2024 Patient [...] Wound Image 07/06/24 1748 Site Assessment Clean;Red;Painful 07/07/241123 Vanessa-Wound Assessment Blanchable erythema;Painful;Red;M oist 07/07/24 112 Wound Length (cm) 11.5 cm 07/06/24 1748 Wound Width (cm) 4 cm 07/06/24 1748 Wound Surface Area (cm^2) 46 cm^2 07/06/24 1748 Closure None 07/07/24 1124 Drainage Description Serosanguineous 07/07/241123 Drainage Amount Scant 07/07/24 1124 Treatments Cleansed 07/07/24 112 Dressing Dry dressing 07/07/24 1124 Dressing Changed New 07/07/24 112 State of Healing Non-granulated tissue 07/07/24 112 Wound Bed Granulation (%) 0 % 07/07/24 112 Wound Bed Epithelium (%) 0 % 07/07/24 112 Wound Bed Non-Granulation (%) 100 % 07/07/24 112 Wound Bed Slough (%) 0 % 07/07/24 112 Wound Bed Eschar (%) 0 % 07/07/241123 Margins Attached edges;Undefined edges 07/07/241123 Non-staged Wound Description Partial thickness 07/07/24 112 Breann Fung RN, CWON 07/07/2024 11:26 AM Normal [facility] URINALYSIS MICROSCOPIC WITH REFLEX CULTUREon 07-07-2024 MUCUS (#/LPF) IN URINE SEDIMENT Many Abnormal None Seen, Occasional, Few [facility] Comment on above: Performed By: #### L [id number] #### [facility] ([facility]) [address] [place] [address] RBC (#/HPF) IN URINE SEDIMENT >20 Abnormal None Seen, 0-2 [facility] Comment on above: Performed By: #### L [id number] #### [facility] ([facility]) [address] [place] [address] SQUAMOUS EPITHELIAL CELLS (#/LPF) IN URINE SEDIMENT None Seen Normal None Seen, Occasional, Few [facility] Comment on above: Performed By: #### L [id number] #### [facility] ([facility]) [address] [place] [address] WBC (LEUKOCYTE) (#/HPF) IN URINE SEDIMENT >50 Abnormal None Seen, 0-2 [facility] Comment on above: Performed By: #### L [id number] #### [facility] ([facility]) [address] [place] [address] YEAST, BUDDING (#/HPF) IN URINE None Seen Normal None Seen [facility] Comment on above: Result Comment: Luis ected result: Previously reported as Few /HPF (reference range: None Seen /HPF) on 07/07/2024 at 1450 EST. Performed By: #### L [id number] #### [facility] ([facility]) [address] [place] [address] URINALYSIS WITH REFLEX CULTU REon 07-07-2024 BILIRUBIN, TOTAL PRESENCE IN URINE Negative Normal Negative [facility] Comment on above: Performed By: #### L [id number] #### [facility] ([facility]) [address] [place] [address] Clarity (U) Turbid Abnormal Clear [facility] Comment on above: Performed By: #### L [id number] #### [facility] ([facility]) [address] [place] [address] Color (U) Dark-Yellow Abnormal Colorless, Yellow, Light-Yellow [facility] Comment on above: Performed By: #### L [id number] #### [facility] ([facility]) [address] [place] [address] GLUCOSE (MG/DL) IN URINE Normal Normal Normal [facility] Comment on above: Performed By: #### L [id number] #### [facility] ([facility]) [address] [place] [address] HEMOGLOBIN PRESENCE IN URINE Large Abnormal Negative [facility] Comment on above: Performed By: #### L [id number] #### [facility] ([facility]) [address] [place] [address] Ketones Ql (U) Negative Normal Negative [facility] Comment on above: Performed By: #### L [id number] #### [facility] ([facility]) [address] [place] [address] LEUKOCYTE ESTERASE PRESENCE IN URINE BY TEST STRIP Large Abnormal Negative [facility] Comment on above: Performed By: #### L [id number] #### [facility] ([facility]) [address] [place] [address] NITRITE PRESENCE IN URINE Positive Abnormal Negative [facility] Comment on above: Performed By: #### L [id number] #### [facility] ([facility]) [address] [place] [address] pH (U) 8.0 [pH] Normal 5.0-8.0 [facility] Comment on above: Performed By: #### L [id number] #### [facility] ([facility]) [address] [place] [address] Protein (U) [Mass/Vol] 100 mg/dL Abnormal Negative [facility] Comment on above: Performed By: #### L [id number] #### [facility] ([facility]) [address] [place] [address] Specific gravity (U) [Rel density] 1.019 Normal 1.010-1.030 [facility] Comment on above: Performed By: #### L [id number] #### [facility] ([facility]) [address] [place] [address] UROBILINOGEN (MG/DL) IN URINE Normal Normal Normal [facility] Comment on above: Performed By: #### L [id number] #### [facility] ([facility]) [address] [place] [address] URINE CULTURE, ROUTINEon DAPTOmycin [Susc] <=[address] [facility] Comment on above: Performed By: #### L [id number] ####[facility] ([facility])[address] [place] [address] Linezolid [Susc] <=1 Susceptible [facility] Comment on above: Performed By: #### L [id number] ####[facility] ([facility])[address] [place] [address] Nitrofurantoin [Susc] <=16 Susceptible [facility] Comment on above: Performed By: #### L [id number] ####[facility] ([facility])[address] [place] [address] Oxacillin [Susc] >2 Resistant [facility] Comment on above: Performed By: #### L [id number] ####[facility] ([facility])[address] [place] [address] Tetracycline [Susc] >8 Resistant [facility] Comment on above: Performed By: #### L [id number] ####[facility] ([facility])[address] [place] [address] Trimethoprim+Sulfam ethoxazole [Susc] <=0.5/9.5 Susceptible [facility] Comment on above: Performed By: #### L [id number] ####[facility] ([facility])[address] [place] [address] Vancomycin [Susc] <=0.[address] [facility] Comment on above: Performed By: #### L [id number] ####[facility] ([facility])[address] [place] [address] BASIC METABOLIC PANELon 11-1 Anion gap [Moles/Vol] 12 mmol/L Normal 7-20 [facility] Comment on above: Performed By: #### L [id number] #### [facility] (BEAKER) [address] [place] [address] Calcium [Mass/Vol] 8.4 mg/dL Low 8.6-10.[address] [facility] Comment on above: Performed By: #### L [id number] #### [facility] (BEAKER) [address] [place] [address] Chloride [Moles/Vol] 109 mmol/L High 98-107 [facility] Comment on above: Performed By: #### L [id number] #### [facility] (BEAKER) [address] [place] [address] CO2 [Moles/Vol] 21 mmol/L Normal 21-31 [facility] Comment on above: Performed By: #### L [id number] #### [facility] (BEAKER) [address] [place] [address] Creatinine [Mass/Vol] 0.77 mg/dL Normal 0.70-1.30 [facility] Comment on above: Performed By: #### L [id number] #### [facility] (BEAKER) [address] [place] [address] GLOMERULAR FILTRATION RATE ML/MIN/1.73 SQ M.PREDICTED 89.9 mL/min/1.73m*2 Normal >60.0 [facility] Comment on above: Result Comment: The [facility]???s estimated glomerular filtration rate (eGFR) will [...] group of individuals. Performed By: #### L [id number] #### [facility] ([facility]) [address] [place] [address] Glucose [Mass/Vol] 127 mg/dL High 70-[address] [facility] Comment on above: Performed By: #### L [id number] #### [facility] ([facility]) [address] [place] [address] Potassium [Moles/Vol] 3.8 mmol/L Normal 3.5-5.1 [facility] Comment on above: Performed By: #### L [id number] #### [facility] ([facility]) [address] [place] [address] Sodium [Moles/Vol] 138 mmol/L Normal 136-[address] [facility] Comment on above: Performed By: #### L [id number] #### [facility] ([facility]) [address] [place] [address] Urea nitrogen [Mass/Vol] 22 mg/dL Normal 7-25 [facility] Comment on above: Performed By: #### L [id number] #### [facility] ([facility]) [address] [place] [address] UREA NITROGEN/CREATININE (MASS RATIO) IN SER/PLAS 28.6 Normal [facility] Comment on above: Performed By: #### L [id number] #### [facility] ([facility]) [address] [place] [address] CBCon 07-06-2024 Erythrocyte distribution width (RBC) [Ratio] 13.9 % Normal 11.5-15.0 [facility] Comment on above: Performed By: #### L [id number] ####[facility] ([facility])[address] [place] [address] ERYTHROCYTE MEAN CORPUSCULAR HEMOGLOBIN CONCENTRATION (G/DL) BY AUTOMATED 33.8 g/dL Normal 32.0-35.0 [facility] Comment on above: Performed By: #### L [id number] ####[facility] (BEAKER)[address] [place] [address] Hematocrit (Bld) [Volume fraction] 39.3 % Normal 39.0-55.0 [facility] Comment on above: Performed By: #### L [id number] ####[facility] (BEAKER)[address] [place] [address] Hemoglobin (Bld) [Mass/Vol] 13.3 g/dL Normal 13.0-17.0 [facility] Comment on above: Performed By: #### L [id number] ####[facility] (BEAKER)[address] [place] [address] MCH (RBC) [Entitic mass] 31.6 pg Normal 27.0-33.0 [facility] Comment on above: Performed By: #### L [id number] ####[facility] (BEAKER)[address] [place] [address] MCV (RBC) [Entitic vol] 93.3 fL Normal 82.0-98.0 [facility] Comment on above: Performed By: #### L [id number] ####[facility] (BEAKER)[address] [place], [place] [address] PLATELETS (10*3/UL) IN BLOOD AUTOMATED COUNT 161 10*3/uL Normal 150-400 [facility] Comment on above: Performed By: #### L [id number] ####[facility] (BEAKER)[address] [place] [address] RBC (Bld) [#/Vol] 4.21 10*6/uL Normal 4.20-5.70 [facility] Comment on above: Performed By: #### L [id number] ####[facility] (BEAKER)[address] [place] [address] WBC (Bld) [#/Vol] 11.72 10*3/uL High 4.00-10.60 [facility] Comment on above: Performed By: #### L [id number] ####[facility] (BEAKER)[address] [place] [address] Ambulatory Visit Summaryon 1 Ambulatory Visit Summary [...] solution) fluticasone nasal (fluticasone Nasal 0.05 mg/inh [place]) hyoscyamine (hyoscyamine 0.125 mg sublingual Tab) icosapent [...] APRN, [place] [facility] Where: [facility] [address] [place] [address]- Medications What How Much When Instructions Unchanged [...] fluticasone nasal (fluticasone Nasal 0.05 mg/ inh [place]) instill 1 spray into each nostril once [...] for choosing us for your care. [facility] C Urineon 06-04-2024 Bacteria identified Cx [...] Locations R1: This test was performed at: [facility], [address] [place] [address], [address]- , [place], Normal [facility] Comment on above: Performed By: #### 2 [id number] #### [facility] [address] [place] [address] Urology Office/Clinic Noteon 06-02-2024 Urology Office/Clinic Note Urology Office/Clinic Note Chief Complaint [facility] ER follow up HPI Staff 83 year old male patient presents today for a ER follow up from [facility]. Has had a cath from [...] with voice recognition artificial intelligence software, specifically [employer], [employer] and or [employer]. Substitutions may have occurred due to the [...] day(s), # 14 cap(s), Refills(s) 0, Pharmacy: [facility], 158, cm, 06/02/24 11:55:00 EDT, Height/Length Dosing, 96, kg, 06/02/24 11:55:00 ED... 2. Urinary retention (R33.9: Retention of urine, unspecified) Has experienced urinary retention in the past. 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 Episode of retention 03/12/2024 at [facility] ER. Patient opted to keep More catheter until cystoscopic evaluation. s/p cystoscopy 04/07/2024 which showed high-grade trabeculation, open prostatic urethra. Patient was to follow-up 3 months with PVR at that time. 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 Started to have difficulty voiding a day or 2 prior to ER visit. [facility] ER 05/10/2024 with difficulty urinating. [...] [facility] (more content not included)... 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 RED YELLOW [facility] GLUCOSE URINE UA COLOR INTERFERENCE Abnormal NEGAT SRINI mg/dL [facility] Interpretation and review of laboratory results Abnormal [facility] Ketones Ql (U) COLOR INTERFERENCE Abnormal NEGATIV E mg/dL [facility] Leukocyte esterase Test strip Ql (U) COLOR INTERFERENCE Abnormal NEGATIVE [facility] NITRITE URINE COLOR INTERFERENCE Abnormal NEGATIVE [facility] PH URINE COLOR INTERFERENCE Abnormal 5.0 - 9.0 [facility] H [facility]care PROTEIN URINE COLOR INTERFERENCE Abnormal NEG/TRAC E mg/dL [facility] SPECIFIC GRAVITY URINE 1.015 1.005 - 1.025 [facility] URINE MICROSCOPIC INDICATED YES [facility] UROBILINOGEN URINE COLOR INTERFERENCE Abnormal 0.2 - 1.0 EU/dL [facility] Healthcar e COMPREHENSIVE METABOLIC PANE Jarett 04-20-2024 Albumin [Mass/Vol] 3.4 g/dL Normal 3.2-5.3 [facility] Comment on above: Performed By: #### C MP ####[facility] ([id number])[address] [place] [address] ALP [Catalytic activity/Vol] 73 U/L Normal 39-130 [facility] Comment on above: Performed By: #### C MP ####[facility] ([id number])[address] [place] [address] ALT [Catalytic activity/Vol] 21 U/L Normal 0-40 [facility] Comment on above: Performed By: #### C MP ####[facility] ([id number])[address] [place] [address] Anion gap [Moles/Vol] 8 mmol/L Normal 5-15 [facility] Comment on above: Performed By: #### C MP ####[facility] ([id number])[address] [place] [address] 21262 AST [Catalytic activity/Vol] 17 U/L Normal 0-41 [facility] Comment on above: Performed By: #### C MP ####[facility] ([id number])[address] [place] [address] Bilirubin [Mass/Vol] 0.7 mg/dL Normal 0.3-1.2 [facility] Comment on above: Performed By: #### C MP ####[facility] ([id number])[address] [place] [address], [place] [address] Calcium [Mass/Vol] 8.4 mg/dL Low 8.5-10.5 [facility] Comment on above: Performed By: #### C MP ####[facility] ([id number])[address] [place] [address], [place] [address] Chloride [Moles/Vol] 102 mmol/L Normal 98-109 [facility] Comment on above: Performed By: #### C MP ####[facility] ([id number])[address] [place] [address] CO2 [Moles/Vol] 24 mmol/L Normal 22-32 [facility] Comment on above: Performed By: #### C MP ####[facility] ([id number])[address] [place] [address] [place] [address] Creatinine [Mass/Vol] 0.85 mg/dL Normal 0.70-1.20 [facility] Comment on above: Result Comment: METH OD TRACEABLE TO IDMS STANDARD Performed By: #### C MP ####[facility] ([id number])[address] [place] [address] GFR/1.73 sq M.predicted among non-blacks MDRD (S/P/Bld) [Vol rate/Area] 87 mL/min/{1.73_m2} Normal >59 [facility] Comment on above: Result Comment: Reported eGFR is based on the CKD-EPI 2020 equation that does not use a race coefficient. Performed By: #### C MP ####[facility] ([id number])[address] [place] [address], [place] [address] Glucose [Mass/Vol] 119 mg/dL High 65-99 [facility] Comment on above: Performed By: #### C MP ####[facility] ([id number])[address] [place] [address], [place] [address] Potassium [Moles/Vol] 3.4 mmol/L Low 3.5-5.0 [facility] Comment on above: Performed By: #### C MP ####[facility] ([id number])[address] [place] [address], [place] [address] Protein [Mass/Vol] 6.4 g/dL Normal 6.0-8.0 [facility] Comment on above: Performed By: #### C MP ####[facility] ([id number])[address] [place] [address] Sodium [Moles/Vol] 134 mmol/L Normal 134-146 [facility] Comment on above: Performed By: #### C MP ####[facility] ([id number])[address] [place] [address] [place] [address] Urea nitrogen [Mass/Vol] 19 mg/dL Normal 5-27 [facility] Comment on above: Performed By: #### C MP ####[facility] ([id number])[address] [place] [address], [place] [address] CBC AND AUTO DIFFon 08-25-20 24 ABSOLUTE BASOPHIL 0.0 X10E9/L Normal 0.0-0.2 [facility] Comment on above: Performed By: #### C MP, CBCA ####[facility] ([id number])[address] [place] [address], [place] [address] ABSOLUTE NEUTROPHIL 3.3 X10E9/L Normal 1.5-6.6 [facility] Comment on above: Performed By: #### C MP, CBCA ####[facility] ([id number])[address] [place] [address] [place] [address] Basophils/100 WBC (Bld) 0.4 % Normal [facility] Comment on above: Performed By: #### C MP, CBCA ####[facility] ([id number])[address] [place] [address] Eosinophils (Bld) [#/Vol] 0.3 10*3/uL Normal 0.0-0.4 [facility] Comment on above: Performed By: #### C MP, CBCA ####[facility] ([id number])[address] [place] [address] Eosinophils/100 WBC (Bld) 4.5 % Normal [facility] Comment on above: Performed By: #### C MP, CBCA ####[facility] ([id number])[address] [place] [address] Erythrocyte distribution width (RBC) [Ratio] 13.4 % Normal 11.5-15.0 [facility] Comment on above: Performed By: #### C MP, CBCA ####[facility] ([id number])[address] [place] [address] Hematocrit (Bld) [Volume fraction] 43.2 % Normal 39-49 [facility] Comment on above: Performed By: #### C MP, CBCA ####[facility] ([id number])[address] [place] [address] Hemoglobin (Bld) [Mass/Vol] 15.1 g/dL Normal 13.0-17.0 [facility] Comment on above: Performed By: #### C MP, CBCA ####[facility] ([id number])[address] [place] [address] Lymphocytes (Bld) [#/Vol] 2.1 10*3/uL Normal 1.0-3.5 [facility] Comment on above: Performed By: #### C MP, CBCA ####[facility] ([id number])[address] [place] [address] Lymphocytes/100 WBC (Bld) 33.9 % Normal [facility] Comment on above: Performed By: #### C MP, CBCA ####[facility] ([id number])[address] [place] [address] MCH (RBC) [Entitic mass] 31.9 pg Normal 27-34 [facility] Comment on above: Performed By: #### C MP, CBCA ####[facility] ([id number])[address] [place] [address] MCHC (RBC) [Mass/Vol] 34.8 g/dL Normal 32-36 [facility] Comment on above: Performed By: #### C MP, CBCA ####[facility] ([id number])[address] [place] [address]73 MCV (RBC) [Entitic vol] 92 fL Normal 80-100 [facility] Comment on above: Performed By: #### C MP, CBCA ####[facility] ([id number])[address] [place] [address] Monocytes (Bld) [#/Vol] 0.5 10*3/uL Normal 0-0.9 [facility] Comment on above: Performed By: #### C MP, CBCA ####[facility] ([id number])[address] [place] [address] Monocytes/100 WBC (Bld) 8.5 % Normal [facility] Comment on above: Performed By: #### C MP, CBCA ####[facility] ([id number])[address] [place] [address]74 Neutrophils/100 WBC (Bld) 52.7 % Normal [facility] Comment on above: Performed By: #### C MP, CBCA ####[facility] ([id number])[address] [place] [address]2849 Platelet mean volume (Bld) [Entitic vol] 8.2 fL Normal 7-12 [facility] Comment on above: Performed By: #### C MP, CBCA ####[facility] ([id number])[address] [place] [address] Platelets (Bld) [#/Vol] 140 10*3/uL Low 150-450 [facility] Comment on above: Performed By: #### C MP, CBCA ####[facility] ([id number])[address] [place] [address] 24481 RBC COUNT 4.71 X10E12/L Normal 4.10-5.70 [facility] Comment on above: Performed By: #### C SERINA, CBCA ####[facility] ([id number])[address] [place] [address] WBC (Bld) [#/Vol] 6.2 10*3/uL Normal 4.0-11.0 [facility] Comment on above: Performed By: #### C SERINA, CBCA ####[facility] ([id number])[address] [place] [address] COMPREHENSIVE METABOLIC PANE Jarett 04-19-2024 Albumin [Mass/Vol] 3.4 g/dL Normal 3.2-5.3 [facility] Comment on above: Performed By: #### C MP, CBCA ####[facility] ([id number])[address] [place] [address] 72887 ALP [Catalytic activity/Vol] 69 U/L Normal 39-130 [facility] Comment on above: Performed By: #### C MP, CBCA ####[facility] ([id number])[address] [place] [address] 04358 ALT [Catalytic activity/Vol] 18 U/L Normal 0-40 [facility] Comment on above: Performed By: #### C SERINA, CBCA ####[facility] ([id number])[address] [place] [address], [place] [address] Anion gap [Moles/Vol] 9 mmol/L Normal 5-15 [facility] Comment on above: Performed By: #### C MP, CBCA ####[facility] ([id number])[address] [place] [address] [place] [address] AST [Catalytic activity/Vol] 23 U/L Normal 0-41 [facility] Comment on above: Performed By: #### C SERINA, CBCA ####[facility] ([id number])[address] [place] [address]188 Bilirubin [Mass/Vol] 1.0 mg/dL Normal 0.3-1.2 [facility] Comment on above: Result Comment: RESU LTS QUESTIONABLE DUE TO HEMOLYSIS Performed By: #### C SERINA, CBCA ####[facility] ([id number])[address] [place] [address], [place] [address] Calcium [Mass/Vol] 8.3 mg/dL Low 8.5-10.5 [facility] Comment on above: Performed By: #### C SERINA, CBCA ####[facility] ([id number])[address] [place] [address] [place] [address] Chloride [Moles/Vol] 107 mmol/L Normal 98-109 [facility] Comment on above: Performed By: #### C SERINA, CBCA ####[facility] ([id number])[address] [place] [address] [place] [address] CO2 [Moles/Vol] 21 mmol/L Low 22-32 [facility] Comment on above: Performed By: #### C SERINA, CBCA ####[facility] ([id number])[address] [place] [address], [place] [address] Creatinine [Mass/Vol] 0.81 mg/dL Normal 0.70-1.20 [facility] Comment on above: Result Comment: METH OD TRACEABLE TO IDMS STANDARD Performed By: #### C SURAJ SMALLS ####[facility] ([id number])[address] [place] [address], [place] [address] GFR/1.73 sq M.predicted among non-blacks MDRD (S/P/Bld) [Vol rate/Area] 89 mL/min/{1.73_m2} Normal >59 [facility] Comment on above: Result Comment: Reported eGFR is based on the CKD-EPI 2020 equation that does not use a race coefficient. Performed By: #### C SURAJ SMALLS ####[facility] ([id number])[address] [place] [address] [place] [address] Glucose [Mass/Vol] 125 mg/dL High 65-99 [facility] Comment on above: Performed By: #### C SURAJ SMALLS ####[facility] ([id number])[address] [place] [address] [place] [address] Potassium [Moles/Vol] 4.0 mmol/L Normal 3.5-5.0 [facility] Comment on above: Result Comment: SPEC IMEN HEMOLYZED, RESULTS INCREASED Performed By: #### C SURAJ SMALLS ####[facility] ([id number])[address] [place] [address] [place] [address] Protein [Mass/Vol] 6.0 g/dL Normal 6.0-8.0 [facility] Comment on above: Performed By: #### C MARIANO SMALLSA ####[facility] ([id number])[address] [place] [address], [place] [address] Sodium [Moles/Vol] 137 mmol/L Normal 134-146 [facility] Comment on above: Performed By: #### C SERINA CBCA ####[facility] ([id number])[address] [place] [address] 37045 Urea nitrogen [Mass/Vol] 16 mg/dL Normal 5-27 [facility] Comment on above: Performed By: #### C MP, CBCA ####[facility] ([id number])[address] [place] [address]348 Calcium.ionized (Bld) [Moles /Vol]on 04-19-2024 PORTABLE ICA 4.6 mg/dL Normal 4.5-5.3 [facility] Comment on above: Performed By: #### 1 994-3 ####[facility] ([id number])[address] [place] [address]89[address] CBC AND AUTO DIFFon 04-18-20 ABSOLUTE BASOPHIL 0.1 X10E9/L Normal 0.0-0.2 [facility] Comment on above: Performed By: #### C BCA, CMP ####[facility] ([id number])[address] [place] [address] 62576#### 40415-4 ####[facility] ([id number])[address] [facility] [address] [place] [address] ABSOLUTE NEUTROPHIL 2.7 X10E9/L Normal 1.5-6.6 [facility] Comment on above: Performed By: #### C BCA, CMP ####[facility] ([id number])[address] [place] [address] 77206#### 10129-2 ####[facility] ([id number])[address], [place] [address] Basophils/100 WBC (Bld) 0.9 % Normal [facility] Comment on above: Performed By: #### C BCA, CMP ####[facility] ([id number])[address] [place] [address] 54911#### [id number] ####[facility] ([id number])[address] [address], [place] [address] Eosinophils (Bld) [#/Vol] 0.2 10*3/uL Normal 0.0-0.4 [facility] Comment on above: Performed By: #### C BCA, CMP ####[facility] ([id number])[address] [place] [address] 38788#### 52867-9 ####[facility] ([id number])[address] [address], [place] [address] Eosinophils/100 WBC (Bld) 4.1 % Normal [facility] Comment on above: Performed By: #### C BCA, CMP ####[facility] ([id number])[address] [place] [address] 32970#### 86665-3 ####[facility] ([id number])[address] [address] [place] [address] Erythrocyte distribution width (RBC) [Ratio] 13.8 % Normal 11.5-15.0 [facility] Comment on above: Performed By: #### C BCA, CMP ####[facility] ([id number])[address] [place] [address] 63400#### [id number] ####[facility] ([id number])[address] [address] [place] [address] Hematocrit (Bld) [Volume fraction] 41.2 % Normal 39-49 [facility] Comment on above: Performed By: #### C BCA, CMP ####[facility] ([id number])[address] [place] [address] 13864#### 05288-9 ####[facility] ([id number])[address] [address], [place] [address] Hemoglobin (Bld) [Mass/Vol] 14.1 g/dL Normal 13.0-17.0 [facility] Comment on above: Performed By: #### C BCA, CMP ####[facility] ([id number])[address] [place] [address] 78590#### 71904-1 ####[facility] ([id number])[address], [place] [address] Lymphocytes (Bld) [#/Vol] 1.9 10*3/uL Normal 1.0-3.5 [facility] Comment on above: Performed By: #### C BCA, CMP ####[facility] ([id number])[address] [place] [address] 21894#### 05025-3 ####[facility] ([id number])[address], [address] [place] [address] 13099 Lymphocytes/100 WBC (Bld) 35.6 % Normal [facility] Comment on above: Performed By: #### C BALDEV, CMP ####[facility] ([id number])[address] [place] [address] 19618#### [id number] ####[facility] ([id number])[address], [address], [place] [address] MCH (RBC) [Entitic mass] 31.7 pg Normal 27-34 [facility] Comment on above: Performed By: #### C BCA, CMP ####[facility] ([id number])[address] [place] [address] 51214#### [id number] ####[facility] ([id number])[address], [address] [place] [address] MCHC (RBC) [Mass/Vol] 34.2 g/dL Normal 32-36 [facility] Comment on above: Performed By: #### C BCA, CMP ####[facility] ([id number])[address] [place] [address] 26155#### [id number] ####[facility] ([id number])[address], [address], [place] [address] MCV (RBC) [Entitic vol] 93 fL Normal 80-100 [facility] Comment on above: Performed By: #### C BCA, CMP ####[facility] ([id number])[address] [place] [address] 05598#### [id number] ####[facility] ([id number])[address], [address] [place] [address] 41353 Monocytes (Bld) [#/Vol] 0.5 10*3/uL Normal 0-0.9 [facility] Comment on above: Performed By: #### C BCA, CMP ####[facility] ([id number])[address] [place] [address] 58017#### [id number] ####[facility] ([id number])[address], [address] [place] [address] 30390 Monocytes/100 WBC (Bld) 9.4 % Normal [facility] Comment on above: Performed By: #### C BCA, CMP ####[facility] ([id number])[address] [place] [address] 60650#### 58098-5 ####[facility] ([id number])[address], [address] [place] [address] [address] Neutrophils/100 WBC (Bld) 50.0 % Normal [facility] Comment on above: Performed By: #### C BCA, CMP ####[facility] ([id number])[address] [place] [address] 68937#### 10792-3 ####[facility] ([id number])[address], [address] [place] [address] Platelet mean volume (Bld) [Entitic vol] 8.2 fL Normal 7-12 [facility] Comment on above: Performed By: #### C BCA, CMP ####[facility] ([id number])[address] [place] [address] 90315#### 25559-4 ####[facility] ([id number])[address], [address], [place] [address] Platelets (Bld) [#/Vol] 159 10*3/uL Normal 150-450 [facility] Comment on above: Performed By: #### Alessandro BCA, CMP ####[facility] ([id number])[address] [place] [address] 54378#### 11774-6 ####[facility] ([id number])[address], [address], [place] [address] RBC COUNT 4.45 X10E12/L Normal 4.10-5.70 [facility] Comment on above: Performed By: #### C BCA, CMP ####[facility] ([id number])[address] [place] [address] 05634#### 55296-6 ####[facility] ([id number])[address], [address], [place] [address] WBC (Bld) [#/Vol] 5.4 10*3/uL Normal 4.0-11.0 [facility] Comment on above: Performed By: #### C BCA, CMP ####[facility] ([id number])[address] [place] [address] 28798#### 84084-1 ####[facility] ([id number])[address], [address], [place] [address] COMPREHENSIVE METABOLIC PANE Jarett 04-18-2024 Albumin [Mass/Vol] 3.3 g/dL Normal 3.2-5.3 [facility] Comment on above: Performed By: #### C BCA, CMP ####[facility] ([id number])[address] [place] [address] 84601#### 00311-4 ####[facility] ([id number])[address], [address] [place] [address] ALP [Catalytic activity/Vol] 67 U/L Normal 39-130 [facility] Comment on above: Performed By: #### C BCA, CMP ####[facility] ([id number])[address] [place] [address] 18680#### 35528-9 ####[facility] ([id number])[address] [address] [place] [address] ALT [Catalytic activity/Vol] 18 U/L Normal 0-40 [facility] Comment on above: Performed By: #### C BCA, CMP ####[facility] ([id number])[address] [place] [address] 99841#### 12823-8 ####[facility] ([id number])[address] [address] Anion gap [Moles/Vol] 7 mmol/L Normal 5-15 [facility] Comment on above: Performed By: #### C BCA, CMP ####[facility] ([id number])[address] [place] [address] 81027#### 19254-6 ####[facility] ([id number])[address], [address] [place] [address] AST [Catalytic activity/Vol] 17 U/L Normal 0-41 [facility] Comment on above: Performed By: #### C BCA, CMP ####[facility] ([id number])[address] [place] [address] 76643#### 66573-9 ####[facility] ([id number])[address], [address], [place] [address] Bilirubin [Mass/Vol] 0.8 mg/dL Normal 0.3-1.2 [facility] Comment on above: Performed By: #### C BCA, CMP ####[facility] ([id number])[address] [place] [address] 67910#### 18473-7 ####[facility] ([id number])[address], [address] [place] [address] Calcium [Mass/Vol] 8.2 mg/dL Low 8.5-10.5 [facility] Comment on above: Performed By: #### C BCA, CMP ####[facility] ([id number])[address] [place] [address] 15766#### 15885-3 ####[facility] ([id number])[address], [address] [place] [address] Chloride [Moles/Vol] 108 mmol/L Normal 98-109 [facility] Comment on above: Performed By: #### C BCA, CMP ####[facility] ([id number])[address] [place] [address] 97076#### 42036-2 ####[facility] ([id number])[address], [address] [place] [address] CO2 [Moles/Vol] 23 mmol/L Normal 22-32 [facility] Comment on above: Performed By: #### C BCA, CMP ####[facility] ([id number])[address] [place] [address] 49624#### 98384-5 ####[facility] ([id number])[address], [address] [place] [address] Creatinine [Mass/Vol] 0.75 mg/dL Normal 0.70-1.20 [facility] Comment on above: Result Comment: METH OD TRACEABLE TO IDMS STANDARD Performed By: #### C BCA, CMP ####[facility] ([id number])[address] [place] [address] 86972#### 01058-8 ####[facility] ([id number])[address], [address] [address] eGFR (CKD-EPI) NON-RACE DEPENDENT >90 Normal >59 [facility] Comment on above: Result Comment: Reported eGFR is based on the CKD-EPI 2020 equation that does not use a race coefficient. Performed By: #### C BCA, CMP ####[facility] ([id number])[address] [place] [address] 45407#### 35907-6 ####[facility] ([id number])[address] [address] Glucose [Mass/Vol] 110 mg/dL High 65-99 [facility] Comment on above: Performed By: #### C BCA, CMP ####[facility] ([id number])[address] [place] [address] 99035#### 14575-9 ####[facility] ([id number])[address] [address] Potassium [Moles/Vol] 3.5 mmol/L Normal 3.5-5.0 [facility] Comment on above: Performed By: #### C BCA, CMP ####[facility] ([id number])[address] [place] [address] 11075#### 12889-5 ####[facility] ([id number])[address], [address] [place] [address] Protein [Mass/Vol] 5.9 g/dL Low 6.0-8.0 [facility] Comment on above: Performed By: #### C BCA, CMP ####[facility] ([id number])[address] [place] [address] 15632#### 31289-3 ####[facility] ([id number])[address], [address], [place] [address] Sodium [Moles/Vol] 138 mmol/L Normal 134-146 [facility] Comment on above: Performed By: #### C BCA, CMP ####[facility] ([id number])[address] [place] [address] 82679#### 94135-6 ####[facility] ([id number])[address] [address], [place] [address] Urea nitrogen [Mass/Vol] 16 mg/dL Normal 5-27 [facility] Comment on above: Performed By: #### C BCA, CMP ####[facility] ([id number])[address] [place] [address] 91801#### 11442-6 ####[facility] ([id number])[address], [address] [place] [address] Lipid 1996 panelon 4 Cholesterol [Mass/Vol] 117 mg/dL Low 150-200 [facility] Comment on above: Performed By: #### C BCA, CMP ####[facility] ([id number])[address] [place] [address] 83906#### 60291-4 ####[facility] ([id number])[address], [address] [place] [address] Cholesterol in HDL [Mass/Vol] 28 mg/dL Low >39 [facility] Comment on above: Result Comment: HDL <40 mg/dL - High Risk HDL > or = 40mg/dL- Desirable HDL >60 mg/dL - Negative Risk Performed By: #### C BCA, CMP ####[facility] ([id number])[address] [place] [address] 08625#### 55595-4 ####[facility] ([id number])[address], [address] [place] [address] Cholesterol in LDL [Mass/Vol] 35 mg/dL Normal <130 [facility] Comment on above: Result Comment: LDL <100 mg/dL - Desirable LDL >160 mg/dL - High Risk Performed By: #### Alessandro BCA, CMP ####[facility] ([id number])[address] [place] [address] 27744#### 75201-0 ####[facility] ([id number])[address], [address] [place] [address] Cholesterol in VLDL [Mass/Vol] 54 mg/dL High 0-30 [facility] Comment on above: Performed By: #### Alessandro BCA, CMP ####[facility] ([id number])[address] [place] [address] 92014#### 89868-4 ####[facility] ([id number])[address], [address] [place] [address] CHOLESTEROL:HDL 4.2 Normal 1.0-5.0 [facility] Comment on above: Performed By: #### C BCA, CMP ####[facility] ([id number])[address] [place] [address] 62842#### 87698-8 ####[facility] ([id number])[address], [address] [place] [address] Triglyceride [Mass/Vol] 270 mg/dL High 27-150 [facility] Comment on above: Performed By: #### C BCA, CMP ####[facility] ([id number])[address] [place] [address] 71145#### 65278-6 ####[facility] ([id number])[address], [address] [place] [address] POTASSIUMon 04-18-2024 Potassium [Moles/Vol] 4.1 mmol/L Normal 3.5-5.0 [facility] Comment on above: Performed By: #### 2 823-3 ####[facility] ([id number])[address] [place] [address] BASIC METABOLIC PANLon 04-17 Anion gap [Moles/Vol] 5 mmol/L Normal 5-15 [facility] Comment on above: Performed By: #### C BCA, BMP, PINR, 25841-6, 81233-0, 3016-3, 302-7 #### [facility] ([id number]) [address] [place] [address] 80111 #### HA1C #### [facility] ([id number]) [address], [address] [place] [address] Calcium [Mass/Vol] 8.2 mg/dL Low 8.5-10.5 [facility] Comment on above: Performed By: #### C BCA, BMP, PINR, 43810-1, 67075-5, 3016-3, 302-7 #### [facility] ([id number]) [address] [place] [address] 93121 #### HA1C #### [facility] ([id number]) [address], [address] [place] [address] Chloride [Moles/Vol] 105 mmol/L Normal 98-109 [facility] Comment on above: Performed By: #### C BCA, BMP, PINR, 47045-9, 02458-2, 3016-3, 3024-7 #### [facility] ([id number]) [address] [place] [address] 54781 #### HA1C #### [facility] ([id number]) [address], [address] [place] [address] CO2 [Moles/Vol] 26 mmol/L Normal 22-32 [facility] Comment on above: Performed By: #### C BCA, BMP, PINR, 93877-0, 12152-1, 3016-3, 3024-7 #### [facility] ([id number]) [address] [place] [address] 06448 #### HA1C #### [facility] ([id number]) [address], [address] [place] [address] Creatinine [Mass/Vol] 0.97 mg/dL Normal 0.70-1.20 [facility] Comment on above: Result Comment: METH OD TRACEABLE TO IDMS STANDARD Performed By: #### C BCA, BMP, PINR, 55485-7, 22814-1, 3016-3, 3024-7 #### [facility] ([id number]) [address] [place] [address] 52203 #### HA1C #### [facility] ([id number]) [address], [address] [place] [address] GFR/1.73 sq M.predicted among non-blacks MDRD (S/P/Bld) [Vol rate/Area] 78 mL/min/{1.73_m2} Normal >59 [facility] Comment on above: Result Comment: Reported eGFR is based on the CKD-EPI 2020 equation that does not use a race coefficient. Performed By: #### C BCA, BMP, PINR, 74384-0, 40185-8, 3016-3, 3023-7 #### [facility] ([id number]) [address] [place] [address] 02727 #### HA1C #### [facility] ([id number]) [address], [address] [place] [address] Glucose [Mass/Vol] 108 mg/dL High 65-99 [facility] Comment on above: Performed By: #### C BCA, BMP, PINR, 51249-8, 36155-3, 3015-3, 7 #### [facility] ([id number]) [address] [place] [address] 17818 #### HA1C #### [facility] ([id number]) [address] [facility] [place] [address] Potassium [Moles/Vol] 3.7 mmol/L Normal 3.5-5.0 [facility] Comment on above: Performed By: #### C BCA, BMP, PINR, 74977-9, 52191-6, 3015-3, 7 #### [facility] ([id number]) [address] [place] [address] 06269 #### HA1C #### [facility] ([id number]) [address], [address] [place] [address] Sodium [Moles/Vol] 136 mmol/L Normal 134-146 [facility] Comment on above: Performed By: #### C BCA, BMP, PINR, 52055-6, 46900-8, 3016-3, 3023-7 #### [facility] ([id number]) [address] [place] [address] 43310 #### HA1C #### [facility] ([id number]) [address], [address] [place] [address] Urea nitrogen [Mass/Vol] 23 mg/dL Normal 5-27 [facility] Comment on above: Performed By: #### C BCA, BMP, PINR, 47454-6, 84577-6, 3016-3, 3024-7 #### [facility] ([id number]) [address] [place] [address] 71531 #### HA1C #### [facility] ([id number]) [address], [address] [place] [address] CBC AND AUTO DIFFon 04-17-20 24 ABSOLUTE BASOPHIL 0.0 X10E9/L Normal 0.0-0.2 [facility] Comment on above: Performed By: #### C BCA, BMP, PINR, 14974-6, 10599-6, 3016-3, 3027 #### [facility] ([id number]) [address] [place] [address] 59014 #### HA1C #### [facility] ([id number]) [address], [address] [place] [address] ABSOLUTE NEUTROPHIL 2.4 X10E9/L Normal 1.5-6.6 [facility] Comment on above: Performed By: #### C BCA, BMP, PINR, 55588-9, 87077-1, 3016-3, 3024-7 #### [facility] ([id number]) [address] [place] [address] 24430 #### HA1C #### [facility] ([id number]) [address], [address] [place] [address] Basophils/100 WBC (Bld) 0.8 % Normal [facility] Comment on above: Performed By: #### C BCA, BMP, PINR, 05426-3, 23793-3, 3016-3, 3023-7 #### [facility] ([id number]) [address] [place] [address] 56222 #### HA1C #### [facility] ([id number]) [address], [address] [place] [address] Eosinophils (Bld) [#/Vol] 0.2 10*3/uL Normal 0.0-0.4 [facility] Comment on above: Performed By: #### C BCA, BMP, PINR, 43458-0, 03831-5, 3015-3, 7 #### [facility] ([id number]) [address] [place] [address] 87248 #### HA1C #### [facility] ([id number]) [address] [facility] [place] [address] Eosinophils/100 WBC (Bld) 4.1 % Normal [facility] Comment on above: Performed By: #### C BCA, BMP, PINR, 20952-8, 42250-2, 3015-3, 7 #### [facility] ([id number]) [address] [place] [address] 20307 #### HA1C #### [facility] ([id number]) [address] [facility] [place] [address] Erythrocyte distribution width (RBC) [Ratio] 13.6 % Normal 11.5-15.0 [facility] Comment on above: Performed By: #### C BCA, BMP, PINR, 34397-4, 69703-1, 6-3, 7 #### [facility] ([id number]) [address] [place] [address] 09048 #### HA1C #### [facility] ([id number]) [address], [address] [place] [address] Hematocrit (Bld) [Volume fraction] 41.0 % Normal 39-49 [facility] Comment on above: Performed By: #### C BCA, BMP, PINR, 78550-3, 89611-0, 3016-3, 3024-7 #### [facility] ([id number]) [address] [place] [address] 83663 #### HA1C #### [facility] ([id number]) [address], [address] [place] [address] Hemoglobin (Bld) [Mass/Vol] 14.0 g/dL Normal 13.0-17.0 [facility] Comment on above: Performed By: #### C BCA, BMP, PINR, 88657-3, 82005-8, 3016-3, 30247 #### [facility] ([id number]) [address] [place] [address] 25669 #### HA1C #### [facility] ([id number]) [address], [address] [place] [address] Lymphocytes (Bld) [#/Vol] 2.3 10*3/uL Normal 1.0-3.5 [facility] Comment on above: Performed By: #### C BCA, BMP, PINR, 45142-7, 43378-2, 3016-3, 3024-7 #### [facility] ([id number]) [address] [place] [address] 61945 #### HA1C #### [facility] ([id number]) [address], [address] [place] [address] Lymphocytes/100 WBC (Bld) 41.5 % Normal [facility] Comment on above: Performed By: #### C BCA, BMP, PINR, 43708-5, 67824-8, 3016-3, 3023-7 #### [facility] ([id number]) [address] [place] [address] 00301 #### HA1C #### [facility] ([id number]) [address], [address] [place] [address] MCH (RBC) [Entitic mass] 31.7 pg Normal 27-34 [facility] Comment on above: Performed By: #### C BCA, BMP, PINR, 28993-2, 77172-7, 3016-3, 3023- #### [facility] ([id number]) [address] [place] [address] 86138 #### HA1C #### [facility] ([id number]) [address], [address] [place] [address] MCHC (RBC) [Mass/Vol] 34.1 g/dL Normal 32-36 [facility] Comment on above: Performed By: #### C BCA, BMP, PINR, 83269-0, 37437-2, 3015-3, 3024-02 #### [facility] ([id number]) [address] [place] [address] 80501 #### HA1C #### [facility] ([id number]) [address], [address] [place] [address] MCV (RBC) [Entitic vol] 93 fL Normal 80-100 [facility] Comment on above: Performed By: #### C BCA, BMP, PINR, 74530-8, 54121-8, 301-3, 7 #### [facility] ([id number]) [address] [place] [address] 56788 #### HA1C #### [facility] ([id number]) [address] [place] [address] Monocytes (Bld) [#/Vol] 0.5 10*3/uL Normal 0-0.9 [facility] Comment on above: Performed By: #### C BCA, BMP, PINR, 61927-8, 90903-3, 3016-3, 302-7 #### [facility] ([id number]) [address] [place] [address] 21463 #### HA1C #### [facility] ([id number]) [address], [address] [place] [address] Monocytes/100 WBC (Bld) 9.9 % Normal [facility] Comment on above: Performed By: #### C BCA, BMP, PINR, 32522-4, 31112-9, 3016-3, 3023-7 #### [facility] ([id number]) [address] [place] [address] 44897 #### HA1C #### [facility] ([id number]) [address], [address] [place] [address] Neutrophils/100 WBC (Bld) 43.7 % Normal [facility] Comment on above: Performed By: #### C BCA, BMP, PINR, 24319-2, 64168-5, 3016-3, 7 #### [facility] ([id number]) [address] [place] [address] 44110 #### HA1C #### [facility] ([id number]) [address], [address] [place] [address] Platelet mean volume (Bld) [Entitic vol] 8.2 fL Normal 7-12 [facility] Comment on above: Performed By: #### C BCA, BMP, PINR, 92341-8, 67330-6, 3016-3, 3023-7 #### [facility] ([id number]) [address] [place] [address] 84719 #### HA1C #### [facility] ([id number]) [address], [address] [place] [address] Platelets (Bld) [#/Vol] 150 10*3/uL Normal 150-450 [facility] Comment on above: Performed By: #### C BCA, BMP, PINR, 65354-4, 95312-8, 3016-3, 3024-7 #### [facility] ([id number]) [address] [place] [address] 16711 #### HA1C #### [facility] ([id number]) [address] [facility] [place] [address] RBC COUNT 4.41 X10E12/L Normal 4.10-5.70 [facility] Comment on above: Performed By: #### C BCA, BMP, PINR, 65981-8, 52429-1, 3016-3, 3024-7 #### [facility] ([id number]) [address] [place] [address] 85778 #### HA1C #### [facility] ([id number]) [address] [facility] [place] [address] WBC (Bld) [#/Vol] 5.4 10*3/uL Normal 4.0-11.0 [facility] Comment on above: Performed By: #### C BCA, BMP, PINR, 02478-7, 09767-1, 3016-3, 3024-7 #### [facility] ([id number]) [address] [place] [address] 85712 #### HA1C #### [facility] ([id number]) [address] [place] [address] CT CTA CAROTIDon 04-17-[address] CTA CAROTID History: Neuro deficit, acute, stroke suspected. Slurred speech Exam/Technique: CT angiogram performed following intravenous administration of 100 mL of Omnipaque 350. Coronal and sagittal and 3-D volume rendered maximum intensity projection images generated and reviewed under concurrent physician supervision. Automated exposure control utilized. The [place] Symptomatic Carotid Endarterectomy Trial (NASCET) method for [...] Armenta MD on 04/17/2024 9:08 AM Normal [facility] CT CTA HEADon 04-17-2024 CT [...] screening for acute ischemic stroke using Rapid Datav[employer] software when clinically indicated. Findings: Head and neck dictated separately. Unremarkable visualized intracranial internal carotid arteries, anterior, middle, left posterior cerebral arteries. Mild narrowing right P2 INDEPENDENT DISTRIBUTOR. Unremarkable vertebral, basilar arteries. 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 Unremarkable appearance of the orbits, visualized suprahyoid neck, scalp, brain parenchyma [which is suboptimally assessed]. Impression: No acute large vessel occlusion the major y[place] of [place] arterial structures. If there is persistent concern for ischemia, recommend MR. All CT scans at this facility use dose modulation, iterative reconstruction, and/or weight based dosing when appropriate to reduce radiation dose to as low as reasonably achievable. Finalized by Lázaro Solomon MD on 04/17/2024 9:00 AM Normal [facility] FREE T4on 04-17-2024 Free T4 [Mass/Vol] 0.91 ng/dL Normal 0.61-1.60 [facility] Comment on above: Performed By: #### C BCA, BMP, PINR, 05347-7, 74762-3, 3016-3, 3024-7 #### [facility] ([id number]) [address] [place] [address] 35321 #### HA1C #### [facility] ([id number]) [address] [place] [address] Glucose Glucometer (BldC) [M ass/Vol]on 04-17-2024 Glucose [Mass/Vol] 94 mg/dL Normal 65-99 [facility] HGB A1C (GLYCO-HGB)on 2023 Glucose [Mass/Vol] 134 mg/dL Normal [facility] Comment on above: Performed By: #### C BCA, BMP, PINR, 96286-7, 13196-5, 3016-3, 3024-7 ####[facility] ([id number])[address] [place] [address]#### HA1C ####[facility] ([id number])[address], [address], [place] [address] HbA1c (Bld) [Mass fraction] 6.3 % High 4.4-5.6 [facility] Comment on above: Result Comment: NOTE ADA Guidelines Result HgbA1c Normal : less than 5.7 % Prediabetes : 5.7 % to 6.4 % Diabetes : > 6.4 % Use with caution in patients with abnormal hemoglobin variants as the half-life of red blood cells and in vivo glycation rates are affected. Performed By: #### C BCA, BMP, PINR, 12080-4, 18510-2, 3016-3, 3024-7 ####[facility] ([id number])[address] [place] [address]#### HA1C ####[facility] ([id number])[address] [place] [address], [address] [place] [address] Lipid 1996 panelon 4 Cholesterol [Mass/Vol] 121 mg/dL Low 150-200 [facility] Comment on above: Performed By: #### 8 9579-7 ####[facility] ([id number])[address] [place] [address]#### 65194-9, 92702-7, 56701-0 ####[facility] ([id number])[address] [place] [address], [address] [place] [address] Cholesterol in HDL [Mass/Vol] 34 mg/dL Low >39 [facility] Comment on above: Result Comment: HDL <40 mg/dL - High Risk HDL > or = 40mg/dL- Desirable HDL >60 mg/dL - Negative Risk Performed By: #### 8 9579-7 ####[facility] ([id number])[address] [place] [address]#### 24015-4, 82896-5, 70603-2 ####[facility] ([id number])[address], [address] [place] [address] Cholesterol in LDL [Mass/Vol] 43 mg/dL Normal <130 [facility] Comment on above: Result Comment: LDL <100 mg/dL - Desirable LDL >160 mg/dL - High Risk Performed By: #### 8 9579-7 ####[facility] ([id number])[address] [place] [address]#### 46004-5, 95140-8, 75070-8 ####[facility] ([id number])[address] [facility], [address] [place] [address] Cholesterol in VLDL [Mass/Vol] 44 mg/dL High 0-30 [facility] Comment on above: Performed By: #### 8 9579-7 ####[facility] ([id number])[address] [place] [address]#### 12569-1, 50267-1, 85589-5 ####[facility] ([id number])[address] [facility], [address] [place] [address] CHOLESTEROL:HDL 3.6 Normal 1.0-5.0 [facility] Comment on above: Performed By: #### 8 9579-7 ####[facility] ([id number])[address] [place] [address]#### 01622-3, 32896-6, 75831-8 ####[facility] ([id number])[address], [address] [place] [address] Triglyceride [Mass/Vol] 218 mg/dL High 27-150 [facility] Comment on above: Performed By: #### 8 9579-7 ####[facility] ([id number])[address] [place] [address]#### 32860-5, 38452-9, 00408-4 ####[facility] ([id number])[address] [facility], [address] [place] [address] MR BRAIN WO CONTon MR BRAIN WO [...] midline shift or extra axial fluid collection. [id number] central greater than peripheral volume loss. Partially [...] Chi Hendrix on 04/17/2024 12:22 PM Normal [facility] [facility] IA Ql (S)on 04-17 [place] Screen w/reflex Negative Normal NEG [facility] Comment on above: Result Comment: Testing performed using multiplex flow immunoassay. Eleven different antigens associated with systemic autoimmune diseases (dsDNA,Sm,Sm/HOOD MAKER,HOOD MAKER,Chromatin, SSA,SSB,Vesna-1,Scl70,Ribo P,Centromere B) are included in this screening test. Performed By: #### 8 9579-7 ####[facility] ([id number])[address] [place] [address]#### 03330-8, 55099-0, 93912-2 ####[facility] ([id number])[address] [facility], [address], [place] [address] PROTIME AND INRon 04-17-2024 INR Coag (PPP) [Relative time] 1.2 {INR} High 0.8-1.1 [facility] Comment on above: Performed By: #### C BCA, BMP, PINR, 36998-8, 84609-8, 3016-3, 3024-7 #### [facility] ([id number]) [address] [place] [address] #### HA1C #### [facility] ([id number]) [address] [facility] [facility], [address] [place] [address] PT Coag (PPP) [Time] 13.6 s High 9.8-13.2 [facility] Comment on above: Result Comment: NEW REFERENCE RANGE Performed By: #### C BCA, BMP, PINR, 82523-6, 13726-2, 3016-3, 3024-7 #### [facility] ([id number]) [address] [place] [address] #### HA1C #### [facility] ([id number]) [address], [address] [place] [address] Rheumatoid factor Nephelomet ry Qn (S)on 04-17-2024 RHEUMATOID FACTOR 36 IU/mL High <20 [facility] Comment on above: Performed By: #### 8 9579-7 ####[facility] ([id number])[address] [place] [address]#### 90670-5, 54965-4, 90509-6 ####[facility] ([id number])[address] [place] [address], [address] [place] [address] TSH Qnon 04-17-2024 TSH 1.23 uIU/mL Normal 0.49-4.67 [facility] Comment on above: Performed By: #### C BCA, BMP, PINR, 58960-5, 33596-9, 3016-3, 3024-7 #### [facility] ([id number]) [address] [place] [address] #### HA1C #### [facility] ([id number]) [address] [place] [address], [address] [place] [address] Troponin I.cardiac High sens itivity method [Mass/Vol]on 04-17-2024 1 HOUR TROP I, HIGH SENSITIVITY 8 ng/L Normal <21 [facility] Comment on above: Performed By: #### 8 9579-7 ####[facility] ([id number])[address] [place] [address]851#### 46624-7, 32078-2, 13098-9 ####[facility] ([id number])[address] [place] [address], [address] [place] [address] TROPONIN I, HIGH SENSITIVITY 7 ng/L Normal <21 [facility] Comment on above: Performed By: #### C BCA, BMP, PINR, 04588-0, 26986-9, 3016-3, 3024-7 #### [facility] ([id number]) [address] [place] [address] #### HA1C #### [facility] ([id number]) [address] [place] [address], [address] [place] [address] aPTT Coag (PPP) [Time]on aPTT Coag (Bld) [Time] 29 s Normal 26-37 [facility] Comment on above: Result Comment: NEW REFERENCE RANGE Performed By: #### C BCA, BMP, PINR, 55957-0, 57449-6, 3016-3, 3024-7 #### [facility] ([id number]) [address] [facility], [place] [address] #### HA1C #### [facility] ([id number]) [address] [facility], [address] [place] [address] Urology Office/Clinic Noteon 03-20-2024 Urology Office/Clinic Note Urology Office/Clinic Note Chief Complaint ER f/u *Urinary Retention HPI Staff PRW pt Last seen in our office by INEZ 02/11/24 DX: BPH, Urethral Stricture, Gross Hematuria & UTI PVR at that time 108ml Here today to follow up to [facility] ER 03/11/24 CC: Urinary Retention [...] (cc): 02/11/24 - 108 Pt presented to [facility] ER 03/11/24 with UR. PVR [...] visit. Follo (more content not included)... Normal [facility] Comment on above: Result Comment: Elec [...] solution) fluticasone nasal (fluticasone Nasal 0.05 mg/inh [place]) hyoscyamine (hyoscyamine 0.125 mg sublingual Tab) icosapent [...] APRN, [facility] Where: [facility] [address] [place] [address]- You Need to Schedule the Following Appointments Follow Up with KIM Lino APRN, [facility], FAM, URL When: Where: Medications What How [...] fluticasone nasal (fluticasone Nasal 0.05 mg/ inh [place]) instill 1 spray into each nostril once [...] urinary ret (more content not included)... Normal [facility] Coding Summary.on 02-19-2024 Coding Summary. LNEPWmht07HCb5nLk+PG hl YWQ+GT4NORAwK98hqKKnwK 1jW0OKMViEImrsBITWDVgC AfDnubYpKE8afSDiZWCd IC8+MA5yCFVgWqsdzGNdv4 Z7fBE9T01pqy9wVIutaSL5 VWSmInPuorfdy2nwlEe6LZ cuNmluOyBt NBKkeE71OSY9nM48Md61iB EbkLXla7rnqVd6MqQbYVQy VRM5bPqsRNnhc8FqVHOnV0 3ezMEuj0C5 ATCyjGkrfBEoMoLgeDI5rY 6bSMhfyofnu5dyoygnAdl4 ka48aWUrx2Z9bDA2J6Isbo V0AEAnbOOy HgpyfVQRwU2oimonb0fpcq raGsCkEIDrLDr2MEg7TXYt zKpkQwUmHP47XLW9QQKgdh WiX4FjTVWo lLcqCiP3v1W4Wy5HI6MXYd mzH2HQJSLXTZdceBP+PC90 cw07G1RrReqdQdy6TFSxRQ R3jBA8tF1g VNEkXYsyl6M5sHE1D0Rojl Qvvw1kd1kvVGIfHTyoB08u sCIzt2Q8LWMduPN0UNIxaV chVyTyaK41 Oyc+LBQnpByze4SiPlioo2 fkx7qtgZm2WtigQNYbxbZt oIuoMOY8u4EoIl1uIQDkvO F0oTA2kB1y NiVvMbB2WIryB530DnExnK NcTkfnV86bK5UrgGS+PHRy Jbb2YCMijXykWY0sL7XiCN RpbmctbGVm kYrrID4cZIXzgrslAFPlyX 2dSBSpW9x9SrNtCiJ9XDek T1AdTZFapnuqJn39wT1qRc EgLdG4CQdz N8IzpnG9EQRjbCSxEUrzNH T9C06hb3H8ZHRhDBXtHHH7 jLR5bB9adZjddijufFYvfC sgdmVydGlj ZCqqWEbaB261KBOqgAaqFy NvZGluZyBEYXRlOiAgMDYv MjYvMjAyNDwvdGQ+PHRkIH G3tSzuVWCp aAQdADxjUl3riPodcQzsZQ 0rQHYitihjNDWgqC1qTUEq nPKyhDfhHC9mHBVfvfeqz4 63IhJwSVR3 XJOjeRPvN2VdqV2cTpTjJN KrQEFxL9SfePWyWFfkZ551 PChhMvO2JHHkzuQkI4WiBF FsaWduOiB0 k4N9Pm6Yv3MwtyeaJ0DhpM LwZxErPubqUWl8Q0QzDoyk dHI+BV18DGWfTJ87FHc8VO Z3gTngTKja EXJdQ9QmsW9uOwPbJRPfIZ RkOyc+PHRhYmxlIHdpZHRo PEhaOPRaBdPetUsdJK4uMb 9yZGVyLWNv eZxiuUYfZwPgv1fsGDIuZL zgWY1buMfyJ3BoiPA8EVDo b9w9Fq00J08qI1WjlFI+PG HikSW4pRE5 cU0eUfOeZhC8IPidU763In JzoLBfMxnqp9oge2eahOv4 HwI4EYXrknBkxHvfFWC0a9 EzIl46O87z IHdpZHRoPSIxNSUiIHZhbG muxt2rhV9nYz8+PGNvbCB3 mEZ4zH3jTvDfZpQ7QWtdH9 49InRvcCIv Armmv8zhc3zncUa9KwPaZZ OjnfAfxQmoGGT5z5XuBu68 U1SouYokl2MnFvv6bh30mX Kmn6Z1oWC3 S8GaUWHsuicxtLPwxMyaKN 4qEXDwvziyLWYpaO5kZOOp C7m3BuIsEbH1FZqmX8Yrvx D1YVVcrFRd WONitOKSlW5qjmrqx6aear wnCeZkQMSbQTl3LNz0XGYe xNfeQdJlJTR5TyR6JOQ0hQ OmyI0eyMgv lwxsvX0kBvn+GIN5wPSaqT KMAO0pKxhgsPO+PHRkIHN0 hAvqQQkcNNUyjK6jCQZmQ2 j1KiWaJrH1 XXjsH3RopbV9RTWbbHYmLG CpjWWVzD9qirclo5fwtyai ZkHmLSBkMCj9WQy3TNSlfP duOiBsZWZ0 QtM0DYU8eNEpvO7flYxijk oukV0nWrn+QmlydGggRGF0 JNn2U3TyHfe3SDOsdAbwAS 0ncGFkZGlu Yy4raBpduEltOU9kVCCtdy qtt143LuNpj0zbHBDmmZJc LJxaNAI5H31ws2I8UFTeOR RiZGR0dEO3 zH8lhUtvqkgttSTddQftjz UapVbrLGxiXUgrH794DPGk lSwgOkWdPKi2S6NcBmp2ZU LuqRcqFW3c bNCiBLqlZu3imHfylPwhWC 4hKCShnfcvi152IlQgc6cq TJJhrXBnKHeiMUU5G67fv8 I1RJPwKEIb CCK4yLB4yC3jgZsjyeykgR VmdDsgdmVydGljYWwtYWxp T540RZGppHzkDeMtsNs3N3 JjLwt6VATf gRpgHW6jnRDnPRyhTy9ypF kdxRxbSB9vXQChftqlw485 TzRvy4gaPUXjwMMeWOqpHN E3H02qw8L0 HYZaTXPqKJA0tUQ3zX0ivK lnbjogbGVmdDsgdmVydGlj LAvpNMrqF302JGMbgOwqAg BhdGllbnQg JIskMKe4G9NnFhhdaHT+PC 86EKUnWY57iMFraDXca4wm bTg5VyVcPUOwDNC8gQzrJH lss3QcDFRt X35giJGcj2O7VSRhoZhohB WrTbHdpRN1zO8uDLubjyjf x2zmpzqhCgtrs2ixnk52gT 53G96nOUim ZHRoPSIzMCUiIHZhbGlnbj 6auQ2rUa7+DHHmjKZ4uDB0 qL1nIHMyUtG9QDkdP547Mw RvcCIvPjxj e0eaq6owwFe3NlX1SNPwzw JnbCuvIKB9l6PnEd40W65u IHdpZHRoPSIyMCUiIHZhbG gwfl8mtM0n Ii8+HLSuuTW8mLX8qN1xOu CuApC5YRowX084MyYwqNWf MldbV91rW5QzyTN+PHRyPj x5WCIunHak NE2suWOfBIvsXj2gHUL5Sr VuXxLdKIhwI2SlNRGqjvmi luyagUX2VIGaKMIuiP82Lz 9udDogMTBw sREXwN8jjplxt2vbgctmTd MuAUFhUDk6XRj7EPKpqTcp NsAnBIZ1CjE7ETP7eOKqpI 1hbGlnbjog lG7aE2WgPUUbaupfZh70fY 6bKmTtKyA3JEfoAbu+U1VU TY9OFQGSS820D3RqZvn4KN TmcIfoEH5m sFMhBAhfAz9jiOumhKsfKP 2wJAAiraiuIBXrcX1mNKZn xBJvyTzfTP0nPRQoiisjd2 54XxVxUEK7 GOZocCVxH1RsyW8lIyYdUA LvQHIxG4KgjUApUBtkB091 PHipOvT1PODuihXqY5JnBK FsaWduOiB0 t5C1Xi5hLA9aFA8uIUKpPA 67OB45hXElv9Z1xAD1X1Qc EUTchtecvbqukLY2QPHdOL TrvU24fXUv ZZktRf2iz4A8g755VFXpNR VoqS11Ep4yaRdcFYBcdUGX yG4tcmreu8sqgaodKcBuIW QfGKf7BGd7 UZArbPitYxVtRDB8XmN2DS Y0mHTynF6zgVjhlioqnL7b Oyc+RXIrILThyyH7V9VdLm q0PHSheSdz PF8cwPQlTSrgXl1inXcflT izNK0vETZcaabrKBXxyY2z WIFshWQarEkeZQ7oXMCnxp ebj228HsIt KZI0XIPepXQnW1NjlU6zFd YvXQVbBDLnK1PsmYAvFXml E733EYfhJbB2MAIunvBlW2 FsLWFsaWdu HpW9g9Y3Mg1ZRMhbZF93JD 66iNNeo9V7hTM5X3UjIBTw apuqdzmwePO1ASTtPPReqW 47cGFkZGlu Te9ti2W7p136LVDwEMFtqP 07Mh9zvHduYWQzvBFQfY6b sxwrx0enxofsBaJyKDKfYS l3VIl7UMXy lYsyFcZyKOL8BwO7TTC7oB GzzL3qrSkzsaopoB6jNpm+ TSCvOQChe7Ytg9SoRA56XF 21Z3PjDvxh dGFibGU+PHRhYmxlIHdpZH JsJHicELGnQmOdoGoqZQ0y Gu0eBLOpSZXrzNjkgGGfKx Oej4cdDTOe TAqjAL9osXvcB0YcjOH2PJ Tag3z4Lx95E96gC0XgiLS+ AYLizWH6qOR8lH2bOqKzVw X5RGtjM475 RdAzmLVvMjbsa3kao7dcsR j3LwKzFXBenuWezAmwACC3 s0PsSi57E75eQRhnGVBdZI IyMCUiIHZh dYgbts1weA1wNx1+PGNvbC N9lYQ3dU4aNtVnXdQ4KMsa D764OgHvxQLrUaxhT44iF6 JvdXA+PHRy Pvt8VYWrkPvrBD9opNIbJF quMe5nBXM6SpMjZgNvVPdg D8ZhIMJoywobrsuvzGX4QL HgPPGfnL31 Nt1zdQviTz9uVHIsLWQ5TS YyxURbZ2AtkZ5uRiVgGWUn OPFiD9DkqZEsOGwmA130NG cjGkA8BEGm kwShN3QjATCzjEnvDcQ1i1 F2Jd8FxCozxPBgWS3lYqDg XVr0V0KcDdj5HKNqbXepUE 0ncGFkZGlu Xf6avKnvqPotGN9aOHIkrn tib950InKdd3vhJBXirIVn EZghWFB2C35yy2I1MBAdEM QyIAD7tBQ4 tH9qpIkvnggpsCCieUhhnx XtdZwxXXwyAVecA167FGXo zHhlAqVDUmj6V7KlOkr0JW AnyXcxGY2k wAPgYWdtTo9ksMgloIyoTH 6jHJLwyzrwn279KrAlv3eo VRLdyUZxYWqyGWP1I78ev1 N1UBChDGDb JRA4aRT4mV1sfKlabttqxI VmdDsgdmVydGljYWwtYWxp O748UJQwoFtgMv4ELzw8K3 LjDzk8MVVx tImbAL9sqFNjNUstUi2cuY urhZxpIM9xNGQyktogf925 BiCrs3xjIGRroWWwJUyrKD E9R53ki9J0 FTKaWGBsAQH6oKP1yF0mtJ lnbjogbGVmdDsgdmVydGlj OFvaREffG006ENAivUskNc BheWVyOjwv dGQ+KB18ap84N9RgMyksSz y3LWTlCYH7dZU3yQ4fAKRd QYmrr8C0wTE6I2QheuPrli 4bd2rmTZOr ESkyD87bzGVdg (more content not included)... Normal [facility] C Urineon 02-13-2024 Bacteria identified Cx Nom (U) Microbiology PROCEDURE: Urine Culture [R1] SOURCE: U Random BODY SITE: COLLECTED DATE/TIME: 02/11/2024 10:06 EDT RECEIVED DATE/TIME: 02/11/2024 18:24 EDT START DATE/TIME: 02/11/2024 18:24 EDT FREE TEXT SOURCE: KIM Lino APRN, RENA Lino APRN-Alessandro, Lazara Echavarria Lazara X FINAL REPORTS Final Report [] [...] Locations R1: This test was performed at: [facility], [address] [place] [address], [facility]- , , [facility] Comment on above: Performed By: #### [id number] #### [facility] [address] [place] [address] Screenson 02-12-2024 Screens [id number]. 00TIFF [facility] Ambulatory Visit Summaryon 0 02-11-2024 Ambulatory [...] [facility] [address] , [place] [address]- [phone] Medications What How Much When Instructions Unchanged [...] for choosing us for your care. Normal [facility] Patient Educationon 02-11-20 Patient Education Urology [...] these instructions at home: Medicines ? Take emdt-cjy-cegsrlt and prescription medicines only as told by [...] the blood stops without treatment. ? Take ilmt-gop-dfyxuzg and prescription medicines only as told by your health care provider. ? Drink enough fluid to keep your urine pale yellow. This information is not intended to replace advice given to you by your health care provider. Make sure you discuss any questions you have with your health care provider. Document Revised: 04/12/2021 Document Reviewed: 04/12/2021 [employer] Patient Education ? 2022 [place]. Benign Prostatic Hyperplasia Benign prostatic hyperplasia (BPH) [...] the nig (more content not included)... Normal [facility] Urology Office/Clinic Noteon 02-11-2024 Urology Office/Clinic [...] with voice recognition artificial intelligence software, specifically [employer], [employer] and or [employer]. Substitutions may have occurred due to the [...] Urnls Dip Stick Auto w/o Microscopy POC 54698 2. 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 Normal [facility] Comment on above: Result Comment: Elec tronically Signed By: KIM Lino APRN, [place] [facility]\.br\Date and Time Signed: 02/11/24 10:41 EDT COVID/FLU RT-PCRon 3 SARS-CoV-2 (COVID-19) RNA TERRIE+probe Ql (Unsp spec) Positive [employer] Other COVID/FLU RT-PCR Negative [employer] Other XR KNEE RT 3Von 01-23-2023 XR KNEE RT 3V EXAM: XR KNEE RT 3V HISTORY: Osteoarthritis of knee COMPARISON: None TECHNIQUE: 3 views FINDINGS: No acute fracture or dislocation. Moderate to severe degenerative changes. Unremarkable soft tissues. IMPRESSION: Moderate to severe degenerative changes. Electronically authenticated by: CALVIN BARNES Date: 2023-01-23 13:29 Normal [facility] INSULINon 09-25-2022 Insulin 6.0 uIU/mL Normal 2.6-24.9 [facility] Comment on above: Performed By: #### I NSULIN #### [facility] [address] [place] [address] Dr. Wally [place] BNPon 09-24-2022 Natriuretic peptide B (Bld) [Mass/Vol] 110.0 pg/mL Normal <=1,800.0 [facility] Comment on above: Performed By: #### U RCX #### [facility] [address] [place] [address] Dr. Wally [place]ien CBC AUTO DIFFon 09-24-2022 BASO # 0.0 103/ul Normal 0.0-0.1 [facility] Comment on above: Performed By: #### C BC #### [facility] [address] [place] [address] Dr. Wally Zapien Basophils/100 WBC (Bld) 1.0 % Normal 0.2-2.0 [facility] Comment on above: Performed By: #### C BC #### [facility] [address] [place] [address] Dr. Wally Zapien EO # 0.2 103/ul Normal 0.0-0.7 [facility] Comment on above: Performed By: #### C BC #### [facility] [address] [place] [address] Dr. Wally Zapien Eosinophils/100 WBC (Bld) 4.2 % Normal 0.9-7.0 [facility] Comment on above: Performed By: #### C BC #### [facility] [address] [place] [address] Dr. Wally Z[place]ien Erythrocyte distribution width (RBC) [Ratio] 12.5 % Normal 11.0-15.0 [facility] Comment on above: Performed By: #### C BC #### [facility] [address] [place] [address] Dr. Wally Zapien Hematocrit (Bld) [Volume fraction] 43.7 % Normal 42.0-54.0 [facility] Comment on above: Performed By: #### C BC #### [facility] [address] [place] [address] Dr. Wally Zapien Hemoglobin (Bld) [Mass/Vol] 15.4 g/dL Normal 14.0-18.0 [facility] Comment on above: Performed By: #### C BC #### [facility] [address] [place] [address] Dr. Wally Zapien IG # 0.02 10e3/ul Normal 0.00-0.03 [facility] Comment on above: Performed By: #### C BC #### [facility] [address] [place] [address] Dr. Wally Zapien IG % 0.5 % Normal 0.0-0.5 [facility] Comment on above: Performed By: #### C BC #### [facility] [address] [place] [address] Dr. Wally Zapien LYMPH # 1.7 103/ul Normal 1.2-3.8 [facility] Comment on above: Performed By: #### C BC #### [facility] [address] [place] [address] Dr. Wally Zapien Lymphocytes/100 WBC (Bld) 42.6 % Normal 20.5-60.0 [facility] Comment on above: Performed By: #### C BC #### [facility] [address] [place] [address] Dr. Wally Zapien MANUAL DIFF REQ NO Normal [facility] Comment on above: Performed By: #### C BC #### [facility] [address] [place] [address] Dr. Wally Zapien MCH (RBC) [Entitic mass] 31.6 pg Normal 25.9-34.0 [facility] Comment on above: Performed By: #### C BC #### [facility] [address] [address] [address] Wally Zapien MCHC (RBC) [Mass/Vol] 35.2 g/dL Normal 29.9-35.2 [facility] Comment on above: Performed By: #### C BC #### [facility] [address] [address] [address] Wally Zapien MCV (RBC) [Entitic vol] 89.5 fL Normal 80.0-94.0 [facility] Comment on above: Performed By: #### C BC #### [facility] [address] [address] [address] Wally Zapien MONO # 0.4 103/ul Normal 0.3-0.8 [facility] Comment on above: Performed By: #### C BC #### [facility] [address] [place] [address] Dr. Wally Zapien Monocytes/100 WBC (Bld) 9.2 % Normal 1.7-12.0 [facility] Comment on above: Performed By: #### C BC #### [facility] [address] [place] [address] Dr. Wally Zapien NEUT # 1.7 103/ul Normal 1.4-6.5 [facility] Comment on above: Performed By: #### C BC #### [facility] [address] [place] [address] Dr. Wally Zapien Neutrophils/100 WBC (Bld) 42.5 % Critically low 43.0-75.0 [facility] Comment on above: Performed By: #### C BC #### [facility] [address] [place] [address] Dr. Wally Zapien Platelet mean volume (Bld) [Entitic vol] 9.9 fL Normal 9.5-13.5 [facility] Comment on above: Performed By: #### C BC #### [facility] [address] [place] [address] Dr. Wally Zapien PLT 149 103/ul Critically low 150-[address] [facility] Comment on above: Performed By: #### C BC #### [facility] [address] [address] [address] Wally Zapien RBC 4.88 106/ul Normal 4.70-6.10 [facility] Comment on above: Performed By: #### C BC #### [facility] [address] [place] [address] Dr. Wally Zapien WBC 4.0 103/ul Normal 4.0-11.0 [facility] Comment on above: Performed By: #### C BC #### [facility] [address] [place] [address] Dr. Wally Zapien CULTURE URINEon 09-24-2022 CULTURE URINE Culture Observations : LIGHT GROWTH OF MIXED SKIN GENNA. NO POTENTIAL PATHOGENS SEEN. Normal [facility] Comment on above: Performed By: #### U RCX #### [facility] [address] [place] [address] Dr. Wally Zapien FREE THYROXINE INDEX T7on FTI 2.52 Normal 1.30-4.50 [facility] Comment on above: Performed By: #### U RCX #### [facility] [address] [place] [address] Dr. Wally Zapien T3U 36.0 % Normal 33.0-40.0 [facility] Comment on above: Performed By: #### U RCX #### [facility] [address] [place] [address] Dr. Wally Zapien T4 [Mass/Vol] 7.00 ug/dL Normal 4.50-12.10 [facility] Comment on above: Performed By: #### U RCX #### [facility] [address] [place] [address] Dr. Wally Zapien GLYCOHEMOGLOBIN A1Con 2022 ADA RECOMMENDATION SEE BELOW Normal [facility] Comment on above: Result Comment: ADA RECOMMENDED LIMIT 4.0 - 6.0 ADA THERAPEUTIC TARGET < 7.0 ACTION SUGGESTED > 7.0 Performed By: #### A 1C #### [facility] [address] [place] [address] Dr. Wally Zapien Glucose [Mass/Vol] 123 mg/dL Normal [facility] Comment on above: Performed By: #### A 1C #### [facility] [address] [address] [address] Wally Zapien HbA1c (Bld) [Mass fraction] 5.9 % Normal 4.5-6.2 [facility] Comment on above: Performed By: #### A 1C #### [facility] [address] [address] [address] Wally Zapien LIPID PROFILEon 09-24-2022 CHOL-HDL RATIO NORM SEE BELOW Normal [facility] Comment on above: Result Comment: 3.3 - 4.4 LOW RISK 4.4 - 7.1 AVERAGE RISK 7.1 - 11.0 MODERATE RISK >11.0 HIGH RISK Performed By: #### U RCX #### [facility] [address] [address] [address] Wally Zapien Cholesterol [Mass/Vol] 117 mg/dL Normal <=200 [facility] Comment on above: Performed By: #### U RCX #### [facility] [address] [address] [address] Wally Zapien Cholesterol in HDL [Mass/Vol] 38 mg/dL Critically low 40-60 [facility] Comment on above: Performed By: #### U RCX #### [facility] [address] [address] [address] Wally Zapien Cholesterol in LDL [Mass/Vol] 32.6 mg/dL Normal [facility] Comment on above: Performed By: #### U RCX #### [facility] [address] [address] [address] Wally Zapien Cholesterol.total/C holesterol in HDL [Mass ratio] 3.1 {ratio} Normal [facility] Comment on above: Performed By: #### U RCX #### [facility] [address] [address] [address] Wally Zapien HDL NORMAL > or = 60 mg/dl - LO W CARDIOVASCULAR RISK <40 mg/dl - HIGH CARDIOVASCULAR RISK Normal [facility] Comment on above: Performed By: #### U RCX #### [facility] [address] [address] [address] Wally Zapien LDL CALC NORMAL SEE BELOW Normal [facility] Comment on above: Result Comment: <100 mg/dl OPTIMAL 100 - 129 mg/dl NEAR OR ABOVE OPTIMAL 130 - 159 mg/dl BORDERLINE HIGH 160 - 189 mg/dl HIGH >190 mg/dl VERY HIGH Performed By: #### U RCX #### [facility] [address] [address] [address] Wally Zapien Triglyceride [Mass/Vol] 232 mg/dL Critically high <=150 [facility] Comment on above: Performed By: #### U RCX #### [facility] [address] [address] [address] Wally Zapien VLDL CALC 46.4 mg/dL Normal [facility] Comment on above: Performed By: #### U RCX #### [facility] [address] [place] [address] Dr. Wally Zapien PROF 14(COMP METB)on 023 Albumin [Mass/Vol] 3.8 g/dL Normal 3.4-5.0 [facility] Comment on above: Performed By: #### B REMOTE BROADCAST TECHNICIAN, T7, LIPID, TSH, CMP, URIC #### [facility] [address] [place] [address] Dr. Wally Zapien Albumin/Globulin [Mass ratio] 1.2 {ratio} Normal [facility] Comment on above: Performed By: #### B REMOTE BROADCAST TECHNICIAN, T7, LIPID, TSH, CMP, URIC #### [facility] [address] [address] [address] Wally Zapien ALP [Catalytic activity/Vol] 80 U/L Normal 46-116 [facility] Comment on above: Performed By: #### B REMOTE BROADCAST TECHNICIAN, T7, LIPID, TSH, CMP, URIC #### [facility] [address] [place] [address] Dr. Wally Zapien ALT [Catalytic activity/Vol] 34 U/L Normal 16-63 [facility] Comment on above: Performed By: #### B REMOTE BROADCAST TECHNICIAN, T7, LIPID, TSH, CMP, URIC #### [facility] [address] [place] [address] Dr. Wally Zapien Anion gap [Moles/Vol] 11.3 mmol/L Normal [facility] Comment on above: Performed By: #### B REMOTE BROADCAST TECHNICIAN, T7, LIPID, TSH, CMP, URIC #### [facility] [address] [place] [address] Dr. Wally Zapien AST [Catalytic activity/Vol] 24 U/L Normal 15-37 [facility] Comment on above: Performed By: #### B REMOTE BROADCAST TECHNICIAN, T7, LIPID, TSH, CMP, URIC #### [facility] [address] [place] [address] Dr. Wally Zapien Bilirubin [Mass/Vol] 1.0 mg/dL Normal 0.2-1.0 [facility] Comment on above: Performed By: #### B REMOTE BROADCAST TECHNICIAN, T7, LIPID, TSH, CMP, URIC #### [facility] [address] [place] [address] Dr. Wally Zaipen Calcium [Mass/Vol] 8.5 mg/dL Normal 8.5-10.1 [facility] Comment on above: Performed By: #### B REMOTE BROADCAST TECHNICIAN, T7, LIPID, TSH, CMP, URIC #### [facility] [address] [place] [address] Dr. Wally Zapien Chloride [Moles/Vol] 105 mmol/L Normal 98-107 The [facility] Comment on above: Performed By: #### B REMOTE BROADCAST TECHNICIAN, T7, LIPID, TSH, CMP, URIC #### [facility] [address] [place] [address] Dr. Wally Zapine CO2 [Moles/Vol] 28.6 mmol/L Normal 21.0-32.0 [facility] Comment on above: Performed By: #### B REMOTE BROADCAST TECHNICIAN, T7, LIPID, TSH, CMP, URIC #### [facility] [address] [place] [address] Dr. Wally Zapien Creatinine [Mass/Vol] 0.74 mg/dL Normal 0.70-1.30 [facility] Comment on above: Performed By: #### B REMOTE BROADCAST TECHNICIAN, T7, LIPID, TSH, CMP, URIC #### [facility] [address] [place] [address] Dr. Wally Zapien EGFR-AF MARSHALLESE >60 Normal >=60 [facility] Comment on above: Performed By: #### B REMOTE BROADCAST TECHNICIAN, T7, LIPID, TSH, CMP, URIC #### [facility] [address] [address] [address] Wally Zapien EGFR-NON AF MARSHALLESE >60 Normal >=60 The [facility] Comment on above: Performed By: #### B REMOTE BROADCAST TECHNICIAN, T7, LIPID, TSH, CMP, URIC #### [facility] [address] [address] [address] Wally Zapien Globulin (S) [Mass/Vol] 3.2 g/dL Normal [facility] Comment on above: Performed By: #### B REMOTE BROADCAST TECHNICIAN, T7, LIPID, TSH, CMP, URIC #### [facility] [address] [place] [address] Dr. Wally Zapien Glucose [Mass/Vol] 102 mg/dL Normal 74-[address] [facility] Comment on above: Performed By: #### B REMOTE BROADCAST TECHNICIAN, T7, LIPID, TSH, CMP, URIC #### [facility] [address] [address] [address] Wally Zapien Potassium [Moles/Vol] 3.9 mmol/L Normal 3.5-5.1 The [facility] Comment on above: Performed By: #### B REMOTE BROADCAST TECHNICIAN, T7, LIPID, TSH, CMP, URIC #### [facility] [address] [address] [address] Wally Zapien Protein [Mass/Vol] 7.0 g/dL Normal 6.4-8.[address] [facility] Comment on above: Performed By: #### B REMOTE BROADCAST TECHNICIAN, T7, LIPID, TSH, CMP, URIC #### [facility] [address] [address] [address] Wally Zapien Sodium [Moles/Vol] 141 mmol/L Normal 136-[address] [facility] Comment on above: Performed By: #### B REMOTE BROADCAST TECHNICIAN, T7, LIPID, TSH, CMP, URIC #### [facility] [address] [address] [address] Wally Zapien Urea nitrogen [Mass/Vol] 19.0 mg/dL Critically high 7.0-18.0 [facility] Comment on above: Performed By: #### B REMOTE BROADCAST TECHNICIAN, T7, LIPID, TSH, CMP, URIC #### [facility] [address] [place] [address] Dr. Wally Zapien Urea nitrogen/Creatinine [Mass ratio] 25.7 mg/mg Normal The [facility] Comment on above: Performed By: #### B REMOTE BROADCAST TECHNICIAN, T7, LIPID, TSH, CMP, URIC #### [facility] [address] [place] [address] Dr. Wally Zapien TSHon 09-24-2022 TSH 1.535 uIU/mL Normal 0.358-3.740 [facility] Comment on above: Performed By: #### U RCX #### [facility] [address] [place] [address] Dr. Wally Zapien UA RANDOM W/MICROSCOPICon BACTERIA NONE SEEN Normal NONE SEEN [facility] Comment on above: Performed By: #### U RCX #### [facility] [address] [place] [address] Dr. Wally Zapien Bilirubin Ql (U) Negative Normal NEGATIVE [facility] Comment on above: Performed By: #### U RCX #### [facility] [address] [place] [address] Dr. Wally Zapien CAST NONE SEEN Normal NONE SEEN [facility] Comment on above: Performed By: #### U RCX #### [facility] [address] [place] [address] Dr. Wally Zapien Clarity (U) CLEAR Normal CLEAR The [facility] Comment on above: Performed By: #### U RCX #### [facility] [address] [place] [address] Dr. Wally Zapien Color (U) YELLOW Normal YELLOW The [facility] Comment on above: Performed By: #### U RCX #### [facility] [address] [place] [address] Dr. Wally Zapien Crystals LM Nom (Urine sed) NONE SEEN Normal NONE SEEN [facility] Comment on above: Performed By: #### U RCX #### [facility] [address] [address] [address] Wally Zapien Epithelial cells LM Ql (Urine sed) FEW Abnormal NONE SEEN /RARE The [facility] Comment on above: Performed By: #### U RCX #### [facility] [address] [address] [address] Wally Zapien Glucose Ql (U) Negative Normal NEGATIVE The [facility] Comment on above: Performed By: #### U RCX #### [facility] [address] [address] [address] Wally Zapien Hemoglobin Ql (U) TRACE-INTACT Abnormal NEGATIVE [facility] Comment on above: Performed By: #### U RCX #### [facility] [address] [address] [address] Wally Zapien Ketones Ql (U) Negative Normal NEGATIVE The [facility] Comment on above: Performed By: #### U RCX #### [facility] [address] [place] [address] Dr. Wally Zapien LEUKOCYTES Negative Normal NEGATIVE [facility] Comment on above: Performed By: #### U RCX #### [facility] [address] [address] [address] Wally Zapien MUCOUS LARGE Abnormal NONE SEEN [facility] Comment on above: Performed By: #### U RCX #### [facility] [address] [place] [address] Dr. Wally Zapien Nitrite Ql (U) Negative Normal NEGATIVE The [facility] Comment on above: Performed By: #### U RCX #### [facility] [address] [place] [address] Dr. Wally Zapien pH (U) 6.5 [pH] Normal 5-9 [facility] Comment on above: Performed By: #### U RCX #### [facility] [address] [place] [address] Dr. Wally Zapien RBC 2-5 Abnormal 0-2 [facility] Comment on above: Performed By: #### U RCX #### [facility] [address] [place] [address] Dr. Wally Zapien SPEC GRAVITY 1.025 Normal 1.005-<=1.02 5 The [facility] Comment on above: Performed By: #### U RCX #### [facility] [address] [place] [address] Dr. Wally Zapien UA PROTEIN TRACE Normal NEGATIVE/ TRACE [facility] Comment on above: Performed By: #### U RCX #### [facility] [address] [place] [address] Dr. Wally Zapien Urobilinogen Qn (U) 1.0 {Suma'U}/dL Normal 0.2 - 1. 0 [facility] Comment on above: Performed By: #### U RCX #### [facility] [address] [place] [address] Dr. Wally Zapien WBC 0-2 Abnormal NONE SEEN The [facility] Comment on above: Performed By: #### U RCX #### [facility] [address] [place] [address] Dr. Wally Zapien URIC ACID SERUMon 09-24-2022 Urate [Mass/Vol] 3.7 mg/dL Normal 3.5-7.2 [facility] Comment on above: Performed By: #### B REMOTE BROADCAST TECHNICIAN, T7, LIPID, TSH, CMP, URIC #### [facility] [address] [place] [address] Dr. Wally Zapien VITAMIN D 25 OHon 09-24-2022 VIT D 25-OH 42.6 ng/mL Normal The [facility] Comment on above: Performed By: #### U RCX #### [facility] [address] [place] [address] Dr. Wally Zapien VIT D RANGES SEE BELOW Normal The [facility] Comment on above: Result Comment: <20 ng/mL Vit D deficient 20 - <30 ng/mL Vit D insufficient 30 - 100 ng/mL Vit D sufficient >100 ng/mL Potential Toxicity Performed By: #### U RCX #### [facility] [address] [place] [address] Dr. Wally Zapien CBC AUTO DIFFon 09-18-2022 BASO # 0.0 103/ul Normal 0.0-0.1 [facility] Comment on above: Performed By: #### C BC #### [facility] [address] [address] [address] Wally Zapien Basophils/100 WBC (Bld) 0.7 % Normal 0.2-2.0 [facility] Comment on above: Performed By: #### C BC #### [facility] [address] [address] [address] Wally Zapien EO # 0.1 103/ul Normal 0.0-0.7 [facility] Comment on above: Performed By: #### C BC #### [facility] [address] [place] [address] Dr. Wally Zapien Eosinophils/100 WBC (Bld) 2.8 % Normal 0.9-7.0 [facility] Comment on above: Performed By: #### C BC #### [facility] [address] [place] [address] Dr. Wally Zapien Erythrocyte distribution width (RBC) [Ratio] 12.7 % Normal 11.0-15.0 [facility] Comment on above: Performed By: #### C BC #### [facility] [address] [place] [address] Dr. Wally Zapien Hematocrit (Bld) [Volume fraction] 44.1 % Normal 42.0-54.0 [facility] Comment on above: Performed By: #### C BC #### [facility] [address] [place] [address] Dr. Wally Zapien Hemoglobin (Bld) [Mass/Vol] 15.3 g/dL Normal 14.0-18.0 [facility] Comment on above: Performed By: #### C BC #### [facility] [address] [place] [address] Dr. Wally Zapien IG # 0.01 10e3/ul Normal 0.00-0.03 [facility] Comment on above: Performed By: #### C BC #### [facility] [address] [place] [address] Dr. Wally Zapien IG % 0.2 % Normal 0.0-0.5 The [facility] Comment on above: Performed By: #### C BC #### [facility] [address] [place] [address] Dr. Wally Zapien LYMPH # 1.8 103/ul Normal 1.2-3.8 [facility] Comment on above: Performed By: #### C BC #### [facility] [address] [place] [address] Dr. Wally Zapien Lymphocytes/100 WBC (Bld) 43.0 % Normal 20.5-60.0 [facility] Comment on above: Performed By: #### C BC #### [facility] [address] [place] [address] Dr. Wally Zapien MANUAL DIFF REQ NO Normal [facility] Comment on above: Performed By: #### C BC #### [facility] [address] [place] [address] Dr. Wally Zapien MCH (RBC) [Entitic mass] 32.1 pg Normal 25.9-34.0 [facility] Comment on above: Performed By: #### C BC #### [facility] [address] [place] [address] Dr. Wally Zapien MCHC (RBC) [Mass/Vol] 34.7 g/dL Normal 29.9-35.2 [facility] Comment on above: Performed By: #### C BC #### [facility] [address] [place] [address] Dr. Wally Zapien MCV (RBC) [Entitic vol] 92.5 fL Normal 80.0-94.0 [facility] Comment on above: Performed By: #### C BC #### [facility] [address] [place] [address] Dr. Wally Zapien MONO # 0.4 103/ul Normal 0.3-0.8 [facility] Comment on above: Performed By: #### C BC #### [facility] [address] [place] [address] Dr. Wally Zapien Monocytes/100 WBC (Bld) 9.2 % Normal 1.7-12.0 [facility] Comment on above: Performed By: #### C BC #### [facility] [address] [place] [address] Dr. Wally Zapien NEUT # 1.9 103/ul Normal 1.4-6.5 [facility] Comment on above: Performed By: #### C BC #### [facility] [address] [place] [address] Dr. Wally Zapien Neutrophils/100 WBC (Bld) 44.1 % Normal 43.0-75.0 [facility] Comment on above: Performed By: #### C BC #### [facility] [address] [place] [address] Dr. Wally Zapien Platelet mean volume (Bld) [Entitic vol] 10.4 fL Normal 9.5-13.5 [facility] Comment on above: Performed By: #### C BC #### [facility] [address] [place] [address] Dr. Wally Zapien PLT 152 103/ul Normal 150-450 The [facility] Comment on above: Performed By: #### C BC #### [facility] [address] [place] [address] Dr. Wally Zapien RBC 4.77 106/ul Normal 4.70-6.10 The [facility] Comment on above: Performed By: #### C BC #### [facility] [address] [place] [address] Dr. Wally Zapien WBC 4.2 103/ul Normal 4.0-11.0 The [facility] Comment on above: Performed By: #### C BC #### [facility] [address] [place] [address] Dr. Wally [...] JOELLE ATKINSON Date: 2022-09-18 13:40 Normal The [facility] URINE PROFILEon 3 Bilirubin Ql (U) SMALL Abnormal NEGATIVE [facility] Comment on above: Performed By: #### BIMAL PADRONRO #### [facility] [address] [place] [address] Dr. Wally Zapien Clarity (U) SL CLOUDY Abnormal CLEAR The [facility] Comment on above: Performed By: #### BIMAL PADRONRO #### [facility] [address] [address] [address] Wally Zapien Color (U) RED Abnormal YELLOW The [facility] Comment on above: Performed By: #### BIMAL PADRONRO #### [facility] [address] [place] [address] Dr. Wally GERBER A micrscopic examination will be performed if indicated. Normal The [facility] Comment on above: Performed By: #### BIMAL PADRONRO #### [facility] [address] [place] [address] Dr. Wally Zapien Glucose Ql (U) Negative Normal NEGATIVE The [facility] Comment on above: Performed By: #### Olinda WILLIS UMICRO #### [facility] [address] [place] [address] Dr. Wally Zapien Hemoglobin Ql (U) LARGE Abnormal NEGATIVE The [facility] Comment on above: Performed By: #### Olinda WILLIS UMICRO #### [facility] [address] [place] [address] Dr. Wally Zapien Ketones Ql (U) TRACE Abnormal NEGATIVE [facility] Comment on above: Performed By: #### BIMAL PADRONRO #### [facility] [address] [place] [address] Dr. Wally Zapien LEUKOCYTES TRACE Abnormal NEGATIVE The [facility] Comment on above: Performed By: #### Olinda WILLIS UMICRO #### [facility] [address] [place] [address] Dr. Wally Zapien Nitrite Ql (U) Positive Abnormal NEGATIVE [facility] Comment on above: Performed By: #### MANSOOR PADRONICRO #### [facility] [address] [place] [address] Dr. Wally Zapien pH (U) 5.5 [pH] Normal 5-9 The [facility] Comment on above: Performed By: #### BIMAL PADRONRO #### [facility] [address] [place] [address] Dr. Wally Zapien Protein (U) [Mass/Vol] 100 mg/dL Abnormal NEGATIVE/ TRACE The [facility] Comment on above: Performed By: #### Olinda WILLIS UMICRO #### [facility] [address] [place] [address] Dr. Wally Zapien SPEC GRAVITY 1.025 Normal 1.005-<=1.02 5 The [facility] Comment on above: Performed By: #### Olinda WILLIS UMICRO #### [facility] [address] [place] [address] Dr. Wally Zapien UR MICRO IND INDICATED Normal [facility] Comment on above: Performed By: #### E RUBIMAL MacielRO #### [facility] [address] [place] [address] Dr. Wally Zapien Urobilinogen Qn (U) 1.0 {Suma'U}/dL Normal 0.2 - 1. 0 [facility] Comment on above: Performed By: #### E BIMAL WILLISRO #### [facility] [address] [place] [address] Dr. Wally Zapien PROF CHEM 8 (BAS METB)on Anion gap [Moles/Vol] 10.5 mmol/L Normal [facility] Comment on above: Performed By: #### U RCX #### [facility] [address] [place] [address] Dr. Wally Zapien Calcium [Mass/Vol] 8.6 mg/dL Normal 8.5-10.1 [facility] Comment on above: Performed By: #### U RCX #### [facility] [address] [place] [address] Dr. Wally Zapien Chloride [Moles/Vol] 105 mmol/L Normal 98-107 The [facility] Comment on above: Performed By: #### U RCX #### [facility] [address] [place] [address] Dr. Wally Zapien CO2 [Moles/Vol] 28.8 mmol/L Normal 21.0-32.0 [facility] Comment on above: Performed By: #### U RCX #### [facility] [address] [place] [address] Dr. Wally Zapien Creatinine [Mass/Vol] 0.85 mg/dL Normal 0.70-1.30 The [facility] Comment on above: Performed By: #### U RCX #### [facility] [address] [place] [address] Dr. Wally Zapien EGFR-AF MARSHALLESE >60 Normal >=60 [facility] Comment on above: Performed By: #### U RCX #### [facility] [address] [place] [address] Dr. Wally Zapien EGFR-NON AF MARSHALLESE >60 Normal >=60 [facility] Comment on above: Performed By: #### U RCX #### [facility] [address] [address] [address] Wally Zapien Glucose [Mass/Vol] 112 mg/dL Critically high 74-106 [facility] Comment on above: Performed By: #### U RCX #### [facility] [address] [address] [address] Wally Zapien Potassium [Moles/Vol] 4.3 mmol/L Normal 3.5-5.1 [facility] Comment on above: Performed By: #### U RCX #### [facility] [address] [address] [address] Wally Zapien Sodium [Moles/Vol] 140 mmol/L Normal 136-145 [facility] Comment on above: Performed By: #### U RCX #### [facility] [address] [address] [address] Wally Zapien Urea nitrogen [Mass/Vol] 23.0 mg/dL Critically high 7.0-18.0 [facility] Comment on above: Performed By: #### U RCX #### [facility] [address] [place] [address] Dr. Wally Zapien Urea nitrogen/Creatinine [Mass ratio] 27.1 mg/mg Normal [facility] Comment on above: Performed By: #### U RCX #### [facility] [address] [place] [address] Dr. Wally Zapien URINE MICROSCOPIC ONLYon BACTERIA TRACE Abnormal NONE SEEN [facility] Comment on above: Performed By: #### BIMAL PADRONRO #### [facility] [address] [place] [address] Dr. Wally Zapien Bacteria identified Cx Nom (U) NOT INDICATED Normal [facility] Comment on above: Performed By: #### E LAZARO UMICRO #### [facility] [address] [place] [address] Dr. Wally Zapien CAST NONE SEEN Normal NONE SEEN The [facility] Comment on above: Performed By: #### E RUR, UMICRO #### [facility] [address] [address] [address] Wally Zapien Crystals LM Nom (Urine sed) NONE SEEN Normal NONE SEEN [facility] Comment on above: Performed By: #### E RUR, UMICRO #### [facility] [address] [address] [address] Wally Zapien Epithelial cells LM Ql (Urine sed) RARE Normal NONE SEEN /RARE The [facility] Comment on above: Performed By: #### E RUR, UMICRO #### [facility] [address] [address] [address] Wally Zapien MUCOUS NONE SEEN Normal NONE SEEN The [facility] Comment on above: Performed By: #### E RUR, UMICRO #### [facility] [address] [place] [address] Dr. Wally Zapien RBC (U) [#/Vol] /uL Abnormal 0-2 [facility] Comment on above: Performed By: #### E RUR, UMICRO #### [facility] [address] [address] [address] Wally Zapien WBC 2-5 Abnormal NONE SEEN [facility] Comment on above: Performed By: #### E RUR, UMICRO #### [facility] [address] [place] [address] Dr. Wally Zapien Vital Signs Date Time Vital Sign Value Performing Clinician Facility 10-02-2024 11:42-0500 Blood Pressure Location [place] [facility] 10-02-2024 11:42-0500 Body temperature 98.6 [degF] [place] [facility] 10-02-2024 11:42-0500 Diastolic blood pressure 67 mm[Hg] [place] [facility] 02-07-2025 11:42-0500 Heart rate 60 /min [place] [facility] 10-02-2024 11:42-0500 Respiratory rate 16 /min [place] [facility] 10-02-2024 11:42-0500 Systolic blood pressure 128 mm[Hg] [place] [facility] 09-03-2024 11:50-0500 Blood Pressure Location [facility] 09-03-2024 11:50-0500 Body temperature 98.6 [degF] [facility] [facility] 09-03-2024 11:50-0500 Diastolic blood pressure 78 mm[Hg] DI GLENN [facility] 09-03-2024 11:50-0500 Heart rate 58 /min DI GLENN [facility] 09-03-2024 11:50-0500 Respiratory rate 18 /min DI GLENN [facility] 09-03-2024 11:50-0500 Systolic blood pressure 133 mm[Hg] DI GLENN [facility] 06-22-2024 16:00-0400 Body temperature 98.42 [degF] Lazara Orzech [facility] 06-22-2024 16:00-0400 Diastolic blood pressure 76 mm[Hg] Lazara Orzech [facility] 06-22-2024 16:00-0400 Heart rate 77 /min Lazara Orzech [facility] 06-22-2024 16:00-0400 Respiratory rate 16 /min Lazara Orzech [facility] 06-22-2024 16:00-0400 Systolic blood pressure 138 mm[Hg] Lazara Orzech [facility] 06-02-2024 11:50-0400 Diastolic blood pressure 84 mm[Hg] Lazara Orzech [facility] 06-02-2024 11:50-0400 Heart rate 156 /min Lazara Orzech [facility] 06-02-2024 11:50-0400 Respiratory rate 16 /min Lazara Orzech [facility] 06-02-2024 11:50-0400 Systolic blood pressure 95 mm[Hg] Lazara Orzech [facility] 03-17-2024 14:58-0400 Blood Pressure Location Lazara Orzech [facility] 03-17-2024 14:58-0400 Diastolic blood pressure 77 mm[Hg] Lazara Orzech [facility] 03-17-2024 14:58-0400 Heart rate 80 /min Lazara Orzech [facility] 03-17-2024 14:58-0400 Respiratory rate 16 /min Lazara Orzech [facility] 03-17-2024 14:58-0400 Systolic blood pressure 132 mm[Hg] Lazara Orzech [facility] 02-11-2024 09:59-0400 Blood Pressure Location Lazara Orzech [facility] 02-11-2024 09:59-0400 Diastolic blood pressure 84 mm[Hg] Lazara Orzech [facility] 02-11-2024 09:59-0400 Heart rate 71 /min Lazara Orzech [facility] 02-11-2024 09:59-0400 Systolic blood pressure 138 mm[Hg] Lazara Orzech [facility] 07-17-2023 15:40-0500 Body height 160.02 cm Rocio Rocio Other [employer] Other 07-17-2023 15:40-0500 Body mass index (BMI) [Ratio] 37.55 kg/m2 Rocio Chan Other [employer] Other 07-17-2023 15:40-0500 Body temperature 98.2 [degF] Rocio Chan Other [employer] Other 07-17-2023 15:40-0500 Body weight 96.16 kg Rocio Chan Other [employer] Other 07-17-2023 15:40-0500 Diastolic blood pressure 76 mm[Hg] Rocio Chan Other [employer] Other 07-17-2023 15:40-0500 Respiratory rate 18 /min Rocio Chan Other [employer] Other 07-17-2023 15:40-0500 SaO2% (BldA) [Mass fraction] 96 % Rocio Chan Other [employer] [facility] [employer] Other 07-17-2023 15:40-0500 Systolic blood pressure 134 mm[Hg] Rocio Chan Other [employer] [facility] [employer] Other 09-26-2022 13:26-0500 Blood Pressure Location [place] INTERIANO [facility] 09-26-2022 13:26-0500 Diastolic blood pressure 74 mm[Hg] [place] INTERIANO [facility] 09-26-2022 13:26-0500 Heart rate 52 /min Renonoe INTERIANO [facility] 09-26-2022 13:26-0500 Systolic blood pressure 173 mm[Hg] [place] INTERIANO [facility] 04-16-2022 13:49-0400 Diastolic blood pressure 87 mm[Hg] [place] INTERIANO [facility] 04-16-2022 13:49-0400 Mean blood pressure 110 mm[Hg] [place] INTERIANO [facility] 04-16-2022 13:49-0400 Systolic blood pressure 156 mm[Hg] [place] INTERIANO [facility] 04-16-2022 13:37-0400 Blood Pressure Location [place] INTERIANO [facility] 04-16-2022 13:37-0400 Diastolic blood pressure 102 mm[Hg] [place] INTERIANO [facility] 04-16-2022 13:37-0400 Heart rate 81 /min [place] INTERIANO [facility] 04-16-2022 13:37-0400 Respiratory rate 16 /min [place] INTERIANO [facility] 04-16-2022 13:37-0400 Systolic blood pressure 191 mm[Hg] [place] INTERIANO [facility] Encounters Encounter Date Encounter Type Care Provider Facility Start: 11-30-2024 ambulatory PA-C DI Chan acility:[facility] Start: 10-30-2024 End: 10-30-2024 ambulatory PA-C DI TROTTER Facility:[facility] [place] Start: 10-02-2024 End: 10-02-2024 ambulatory [place] INTERIANO Facility:[facility] Start: 10-02-2024 End: 10-02-2024 Patient encounter procedure [place] INTERIANO [facility] Start: 09-03-2024 End: 09-03-2024 ambulatory PA-C DI TROTTER Facility:[facility] [place] Start: 09-03-2024 End: 09-03-2024 Patient encounter procedure DI TROTTER [facility] Start: 08-10-2024 End: 08-10-2024 ambulatory [place] Janell JAYDON Facility:[facility] Start: 08-10-2024 End: 08-10-2024 Patient encounter procedure [place] Maciel INTERIANO [facility] Start: 08-06-2024 End: 08-06-2024 ambulatory PA-C DI TROTTER Facility:[facility] Start: 08-06-2024 End: 08-06-2024 Patient encounter procedure DI TROTTER [facility] Start: 08-03-2024 ambulatory OLGA WATTERS [facility] Start: 07-21-2024 End: 07-21-2024 ambulatory Lazara X Orzech Facility:[facility] Start: 07-21-2024 End: 07-21-2024 Patient encounter procedure Lazara X Orzech [facility] Start: 07-20-2024 ambulatory Lazara X Orzech [facility] Start: 07-20-2024 End: 07-20-20[facility]: 07-10-2024 Evaluation and management of inpatient [facility] Start: 07-09-2024 Evaluation and management of inpatient [facility] Start: 07-06-2024 End: 07-13-2024 Evaluation and management of inpatient [facility] Start: 06-22-2024 End: 06-22-2024 ambulatory Lazara X Orzech Facility:[facility] Start: 06-22-2024 End: 06-22-2024 Patient encounter procedure Lazara X Orzech [facility] Start: 06-02-2024 End: 06-02-2024 ambulatory Lazara X Orzech Facility:[facility] Start: 06-02-2024 End: 06-02-2024 Lab Drop off Lazara X Orzech [facility] Start: 06-02-2024 End: 06-02-2024 ambulatory Lazara X Orzech Facility:[facility] Start: 06-02-2024 End: 06-02-2024 Patient encounter procedure [facility] X [facility] Start: 05-10-2024 End: 05-11-2024 Clinisync Result Encounter Phuong Campos MD Work Phone: [facility] Unsolicited Start: 05-10-2024 End: 05-11-2024 Clinisync Result Encounter Phuong Campos MD Work Phone: [facility] Unsolicited Start: 04-21-2024 End: 04-21-2024 ambulatory [facility] Start: 04-17-2024 End: 04-21-2024 ambulatory [address] [facility] Start: 04-17-2024 End: 04-21-2024 ambulatory [facility] Start: 04-17-2024 End: 04-20-2024 Evaluation and management of inpatient [facility] Start: 04-17-2024 End: 04-21-2024 Emergency department patient visit [facility] Start: 04-17-2024 End: 04-21-2024 ambulatory [facility] Start: 04-14-2024 ambulatory Lazara X Orzech Facilit y:[facility] Start: 04-07-2024 End: 04-07-2024 ambulatory [place] INTERIANO Facility:CD:[id number] Start: 03-18-2024 End: 03-18-2024 ambulatory Emily GuerreroFidel Chávezolinda Facility:[facility] Start: 03-18-2024 End: 03-18-2024 Patient encounter procedure Emily GuerreroFidel Chávezolinda [facility] Start: 03-17-2024 End: 03-17-2024 ambulatory Lazara X Orzech Facility:[facility] Start: 03-17-2024 End: 03-17-2024 Patient encounter procedure Lazara X Orzech [facility] Start: 02-11-2024 End: 02-11-2024 Lab Drop off Lazara X Orzech [facility] Start: 02-11-2024 End: 02-11-2024 ambulatory Lazara X Orzech Facility:[facility] Start: 02-11-2024 End: 02-11-2024 Patient encounter procedure Lazara X Orzech [facility] Start: 11-18-2023 End: 11-19-2023 ambulatory Fabrice Dias MD Facility: [facility] Start: 10-28-2023 End: 10-29-2023 ambulatory Fabrice Dias MD Facility: [facility] Start: 09-30-2023 End: 10-01-2023 ambulatory Fabrice Dias MD Facility: [facility] Start: 2023 End: 09-24-2023 ambulatory Fabrice Dias MD Facility: [facility] Start: 07-17-2023 End: 07-17-2023 ambulatory Rocio Rocio Other [employer] Other Start: 07-17-2023 Office outpatient visit 15 minutes Rocio Chan [facility] Start: 05-27-2023 End: 05-28-2023 ambulatory Fabrice Dias MD Facility:[facility] Start: 01-23-[address] BAYRON VELAZQUEZ . Facili ty:[facility] Start: 09-26-2022 End: 09-26-2022 Patient encounter procedure [place] INTER[place]O [facility] Start: 09-24-2022 End: 09-25-[address] BAYRON VELAZQUEZ . Facility: Start: 09-18-2022 End: 09-18-2022 ambulatory KARLOS MELTON . Facility:[facility] Start: 04-16-2022 End: 04-16-2022 Patient encounter procedure [place] Janell INTERIANO [facility] Procedures Date Procedure Procedure Detail Performing Clinician Start: 05-10-2024 TBH UA (CLEAN/CATCH) CNC APPLICATIONS ENGINEER/MICRO IF IND. Phuong Campos MD Work Phone: Start: 09-24-2022 PSA screening KARLOS ALVAREZ . Comment on above: Performed By: #### U RCX #### [facility] [address] [place] [address] Dr. Wally Zapien Start: 03-17-2019 Cystoscope, device ( physical object) [place] INTER[place]O Cardiac catheterization Patr ick INTERIANO Coronary artery bypass graft [place] INTER[place]O Extraction of cataract Patri ck INTERIANO Hydrocelectomy [place] Inguinal herniorrhaphy Patri ck INTERIANO Large intestine excision Pat noe INTERIANO Prosthetic arthropla sty of the hip [place] INTER[place]O Repair of musculoten dinous cuff of shoulder [place] INTER[place]O Tonsillectomy and adenoidectomy [place] INTER[place]O Plan of Treatment Date Care Activity Detail Author Start: 06-30-2024 ambulatory Ambulatory Facility:[facility] Immunizations Immunization Date Immunization Notes Care Provider Fa cili 05-24-2022 influenza virus vacc ine, unspecified formulation [place] INTER[place]O [facility] 04-20-2022 SARS-CoV-2 mRNA (rukkczbvxjn-myla-vqenkf e) vaccine [place] INTER[place] [facility] 06-19-2021 SARS-CoV-2 (COVID-19 ) mRNA BNT-162b2 vax [place] INTER[place] [facility] 06-01-2021 influenza virus vacc ine, unspecified formulation [place] INTER[place]O [facility] 05-23-2021 influenza virus vacc ine, unspecified formulation [place] INTER[place]O [facility] 11-10-2020 SARS-CoV-2 (COVID-19 ) mRNA BNT-162b2 vax [place] INTER[place] [facility] 10-20-2020 SARS-CoV-2 (COVID-19 ) mRNA BNT-162b2 vax [place] INTER[place] [facility] 08-04-2020 zoster vaccine recombinant Renon[place] INTERIANO [facility] 07-06-2020 SARS-CoV-2 (COVID-19 ) Ad26 vaccine, recombinant [employer] [facility] 06-24-2020 influenza virus vacc ine, unspecified formulation [employer] [facility] 06-03-2020 zoster vaccine recombinant [employer] [facility] 06-02-2020 SARS-CoV-2 (COVID-19 ) Ad26 vaccine, recombinant [employer] [facility] 05-26-2020 influenza virus vacc ine, unspecified formulation [employer] [facility] 05-29-2019 influenza virus vacc ine, unspecified formulation [employer] [facility] 06-17-2018 influenza virus vacc ine, unspecified formulation [employer] [facility] 05-14-2017 influenza virus vacc ine, unspecified formulation [employer] [facility] 05-14-2017 pneumococcal polysaccharide vaccine, 23 valent [employer] [facility] 05-17-2016 influenza virus vacc ine, unspecified formulation [employer] [facility] 05-17-2016 pneumococcal conjuga te vaccine, 13 valent [employer] [facility] 05-16-2015 influenza virus vacc ine, unspecified formulation [employer] [facility] Payers Date Payer Category Payer Medicare AETNA MEDICARE A DVANTAGE AETNA MEDICARE REPLACEMENT [id number] 2023-Present [address] [place] [address] [id number] 2022 Private Health Insurance 1959 Medicare [id number] 1940 Unknown [id number] 2.16.840.1.829883.3.579.2. 593 1942 Unknown [id number] 2.16.840.1.726001.3.579.2. 593 1942 Unknown [id number] 2.16.840.1.158183.3.579.2. 593 1942 Unknown [id number] 2.16.840.1.945024.3.579.2. 196 1942 Unknown [id number] 2.16.840.1.110459.3.579.2. 196 1942 Unknown [id number] 2.16.840.1.002680.3.579.2. 196 1942 Unknown [id number] 2.16.840.1.629677.3.579.2. 196 1942 Unknown [id number] 2.16.840.1.245990.3.579.2. 196 1942 Unknown [id number] 2.16.840.1.962416.3.579.2. 1286 1942 Unknown [id number] 2.16.840.1.836905.3.579.2. 1286 1942 Unknown [id number] 2.16.840.1.350058.3.579.2. 1286 1942 Unknown [id number] 2.16.840.1.135308.3.579.2. 1286 1942 Unknown [id number] 2.16.840.1.108896.3.579.2. 1286 1942 Unknown [id number] 2.16.840.1.015016.3.579.2. 128 1942 Unknown [id number] 2.16.840.1.612399.3.579.2. 128 1942 Unknown [id number] 2.16.840.1.398184.3.579.2. 128 1942 Unknown [id number] 2.16.840.1.572157.3.579.2. 1286 1942 Unknown [id number] 2.16.840.1.626648.3.579.2. 727 1942 Unknown [id number] 2.16.840.1.372817.3.579.2. 727 1942 Unknown [id number] 2.16.840.1.715911.3.579.2. 727 1942 Unknown [id number] 2.16.840.1.290328.3.579.2. 727 1942 Unknown [id number] 2.16.840.1.378767.3.579.2. 727 1942 Unknown [id number] 2.16.840.1.798355.3.579.2. 727 1942 Unknown [id number] 2.16.840.1.986794.3.579.2. 727 1942 Unknown [id number] 2.16.840.1.585430.3.579.2. 72 1942 Unknown [id number] 2.16.840.1.624437.3.579.2. 72 1942 Unknown [id number] 2.16.840.1.975921.3.579.2. 727 1942 Unknown [id number] 2.16.840.1.071694.3.579.2. 727 1942 Unknown [id number] 2.16.840.1.059777.3.579.2. 727 1942 Unknown [id number] 2.16.840.1.670291.3.579.2. 727 1942 Unknown [id number] 2.16.840.1.699928.3.579.2. 727 1942 Unknown [id number] 2.16.840.1.769971.3.579.2. 727 1942 Unknown [id number] 2.16.840.1.551150.3.579.2. 727 1942 Unknown [id number] 2.16.840.1.784031.3.579.2. 727 1942 Unknown [id number] 2.16.840.1.929318.3.579.2. 727 1942 Unknown [id number] 2.16.840.1.277139.3.579.2. 727 Social History Date Type Detail Facility Start: 04-16-2022 End: 10-02-2024 Tobacco smoking status Never smoked tobacco (finding) [facility] Tobacco smoking status Never [facility] Sex Assigned At Male [facility] Tobacco smoking status NHIS Tobacco smoking consumption unknown [facility] Start: 1940 Sex assigned at Not on file [facility] Functional Status Date Assessment Result Facility 10-02-2024 Functional Status N/A [facility] 09-03-2024 Functional Status N/A [facility] 06-22-2024 Functional Status N/A [facility] 06-02-2024 Functional Status N/A [facility] 03-17-2024 Functional Status N/A [facility] 02-11-2024 Functional Status N/A [facility] 09-26-2022 Functional Status N/A [facility] 04-16-2022 Functional Status N/A [facility] Clinical Notes 10-06-2020 to 10-02-2024 Note Date [...] also be done in non-medical settings for holiness or cultural reasons. Who should be circumcised? The decision to leave the foreskin on or to have it removed is a personal one. It is often based on holiness, social, or cultural beliefs. Circumcision is most [...] penis functions. Where to find more information [employer] ([employer]), [place] Male Circumcision: [email or web address] Summary Male infants are [...] provider. Document Revised: 08/13/2022 Document Reviewed: 08/13/2022 [employer] Patient Education 2023 [employer]. Follow Up Care 09/03/2024 13:05:58 With:JAYDON COE, [place] Maciel, URL Address: [address] [place], [place] [address]- When: Unknown [facility] 10-02-2024 Note Patient Education Urology Circumcision Information [...] also be done in non-medical settings for holiness or cultural reasons. Who should be circumcised? The decision to leave the foreskin on or to have it removed is a personal one. It is often based on holiness, social, or cultural beliefs. Circumcision is most [...] functions. Where to find more information ??? [employer] ([employer]OG), Male [...] provider. Document Revised: 08/13/2022 Document Reviewed: 08/13/2022 [employer] Patient Education ? 2023 [place]. [facility] 09-03-2024 Hospital Discharge instructions Patient Education [...] also be done in non-medical settings for holiness or cultural reasons. Who should be circumcised? The decision to leave the foreskin on or to have it removed is a personal one. It is often based on holiness, social, or cultural beliefs. Circumcision is most [...] penis functions. Where to find more information [employer] ([employer]), Male Circumcision: [email or web address] Summary Male infants are [...] provider. Document Revised: 08/13/2022 Document Reviewed: 08/13/2022 [employer] Patient Education 2023 [place]. Follow Up Care 08/06/2024 12:22:28 With:Dr Interiano 1 month to discuss surgery and change cath Address:Unknown When: Unknown [facility] 09-03-2024 Note Patient Education Urology Circumcision Information [...] also be done in non-medical settings for holiness or cultural reasons. Who should be circumcised? The decision to leave the foreskin on or to have it removed is a personal one. It is often based on holiness, social, or cultural beliefs. Circumcision is most [...] functions. Where to find more information ??? [employer] ([employer]), [place] Male Circumcision: [email or web address] Summary ??? Male infants [...] provider. Document Revised: 08/13/2022 Document Reviewed: 08/13/2022 [employer] Patient Education ? 2023 [place]. [facility] 08-03-2024 Note Subjective Patient ID: Kyler Richard is a 83 y.o. male who presents for No chief complaint on file.. HPI:This is a 83-year-old male patient with urethral stricture with recurrent UTI and recent hematuria admitted to [facility] on 07/06 with hematuria. Upon presentation 16 guatemalan more catheter was exchanged for 24 Swazi three-way s/p irrigation. WBC was 12k, urine [...] he has followed up with [facility] and catheter was exchanged.Patient states he is slowly working on getting stronger. Patient and denies any new issues or concerns including hematuria, fever or chills. Past Medical History: No past medical history on file. Patient Active Problem List Diagnosis Hematuria Cerebrovascular accident (CVA) due to occlusion of precerebral artery (CMS/HCC) Penile hypospadias Coronary artery disease involving [place] coronary artery of [place] heart without angina pectoris MRSA bacteremia Past [...] Year: N (more content not included)... [facility] 07-21-2024 Hospital Discharge instructions Patient Education [...] provider. Document Revised: 03/12/2023 Document Reviewed: 03/12/2023 Else[employer] Patient Education 2023 [employer] [facility] 07-21-2024 Note Patient Education Caregiving Antibiotic Medicine, [...] You have sig (more content not included)... [facility] 07-20-2024 Note 07/20/2024 Subjective Patient ID: Kyler Richard is a 83 y.o. male who presents for No chief complaint on file.. HPI:This is a 83-year-old male patient with urethral stricture with recurrent UTI and recent hematuria admitted to [facility] on 07/06 with hematuria. Upon presentation 16 guatemalan more catheter was exchanged for 24 Swazi three-way s/p irrigation. WBC was 12k, urine [...] (CMS/HCC) Penile hypospadias Coronary artery disease involving [place] coronary artery of sk[place] heart without angina pectoris Past Surgical History: [...] 124/77 Pul (more content not included)... [facility] 07-13-2024 Note Occupational Therapy Occupational Therapy Treatment Patient Name: Kyler Richard : 1940 Today's Date: 07/13/2024 Time in:1123 Time out:1152 Total time:29 min Problem List Patient Active Problem List Diagnosis Hematuria Cerebrovascular accident (CVA) due to occlusion of precerebral artery (CMS/HCC) Penile hypospadias Coronary artery disease involving [place] coronary artery of sk[place] heart without angina pectoris 07/13/24 1152 OT [...] initation and follow through General Assessment Hearing [place] - hearing aides in Functional Standing Tolerance Functional Standing Tolerance Comments Patient tolerate sit to stand transfer from bedside chair, and complete functional mobility around bed to sit at EOB. Patient tolerate static standing as life underwriter attempt to clean IV as it was [...] during ADL;Decreased endurance;Decreased IADLs;Decreased functional mobility OT Assessment/MONICO Summary patient tolerate functional mobility, and may [...] file Resolved (more content not included)... [facility] 07-13-2024 Note Hospital Medicine Discharge Summary [...] s/p CABG x4 ~2006, who presents from [facility] as transfer with a chief complaint of recurrent hematuria. Patient denies requiring a More catheter initially after stroke back in March, but began having episodes of hematuria and intermittent obstruction secondary to clots prompting a More catheter placement at his halfway where he was transferred for rehab. Due to multiple trips back to the ED and only limitedly successful irrigation attempts, patient was transferred here for inpatient urological care. His outpatient urologist is Dr. Interiano. Hemoglobin has been stable in the 's. Of note, patient was not taking Plavix [...] Center 07/20/2024 9:00 AM Olga Watters NP [facility] [place] Heal Your medication list [...] Medications These medications were sent to [facility] - [place], [place] - [address], [facility] [address] aspirin 81 mg EC tablet carvedilol 6.25 mg tablet linezolid 600 mg tablet Kyler has No Known Allergies. Disposition: [place]-Health Care [facility] [place] (06) Discharge Condition: Good Code Status: Full Code Diagnostic Results Hematology: Results from last 7 days Lab Units 11/ (more content not included)... [facility] 07-13-2024 Note Discharge Planning U pdate: 1220 Spoke with patient face to face. Patient has DC order in place. Patient stated he is currently active with [facility]. SW placed return referral to [facility] via [facility], awaiting response. 2:55pm [facility] accepting, AVS sent. Patient stated family will transport upon discharge. No further OTM needs discovered at this time. 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 Referral Reason Other (Comment) (Discharge Planning) Patient Information Primary Caregiver Self Activities of Daily Living Assistive Device Cane;Walker;Wheelchair;Other (Comment) (has wheelchair, walker, cane, and rollator at home) Living Arrangement (Current/Prior to Hospitalization) Private residence (home, lives with ) Ambulation Independent Dressing Independent Feeding Independent Behavior Oriented Communication Talks;Understands speaking;Understands [place] Income Information Income Source Unemployed (retired) Referral [...] will transport him home upon discharge) [facility] 07-13-2024 Note Physical Therapy Physical Therapy Treatment Patient Name: Kyler Richard : 1940 Today's Date: 07/13/2024 Patient Active Problem List Diagnosis Hematuria Cerebrovascular accident (CVA) due to occlusion of precerebral artery (CMS/HCC) Penile hypospadias Coronary artery disease involving sk[place]ish coronary artery of skokomish heart without angina pectoris Objective pt agreeable [...] Moderate assistance (more content not included)... [facility] 07-13-2024 Note Attestation signed by Ancelmo [...] murmurs Abdomen (more content not included)... [facility] 07-12-2024 Note Pharmacy Dosing Serv ice [...] cultures collected on 07/08 positive for MRSA 2/. Repeated blood culture collected on 07/10 remained [...] Thank you, Radha Sahni, PharmD, 07/12/24 [facility] 07-12-2024 Note Hospital Medicine Daily Progress Note - 07/12/2024 2:38 PM; Room: [facility] Admission: 07/06/2024 11:47 AM; Length of stay: 6 days THE HOSPITALIST TEAM PREFERS TO USE Mowbly FOR COMMUNICATION 7AM-7PM. IF I DO NOT RESPOND WITHIN 15 MINUTES, PLEASE PAGE ME/CALL THROUGH THE SANDBLASTING SUPERVISOR. FROM 7PM-7AM, PLEASE PAGE [phone](COVR) Code Status: Full Code Barriers to Discharge: [...] (CMS/HCC) Penile hypospadias Coronary artery disease involving skokomish coronary artery of skokomish heart without angina pectoris Assessment and Plan [...] admission) No (more content not included)... [facility] 07-12-2024 Note Infectious Diseases - Inpatient [...] Results from last 7 days Lab Units 07/11/248 07/10/2438 07/08/24 0920 POTASSIUM mmol/L 3.7 3.2* 3.6 [...] Normal UR (more content not included)... [facility] 07-11-2024 Note Cultures reviewed, s o [...] linezolid Semaj Sanchez MD Infectious diseases [facility] 07-11-2024 Note Physical Therapy Physical Therapy [...] (CMS/HCC) Penile hypospadias Coronary artery disease involving skokomish coronary artery of skokomish heart without angina pectoris 07/11/24 1337 PT [...] Emotional labile at times. General Assessment Hearing [place] - hearing aides in Therapeutic Exercise Therapeutic [...] Performed w (more content not included)... [facility] 07-11-2024 Note Hospital Medicine Daily Progress Note - 07/11/2024 12:48 PM; Room: [id number]- Admission: 07/06/2024 11:47 AM; Length of stay: 5 days THE HOSPITALIST TEAM PREFERS TO USE 1Lay CHAT FOR COMMUNICATION 7AM-7PM. IF I DO NOT RESPOND WITHIN 15 MINUTES, PLEASE PAGE ME/CALL THROUGH THE SANDBLASTING SUPERVISOR. FROM 7PM-7AM, PLEASE PAGE [phone](COVR) Code Status: Full Code Barriers to Discharge: [...] (CMS/HCC) Penile hypospadias Coronary artery disease involving skokomish coronary artery of skokomish heart without angina pectoris Assessment and Plan [...] , FREET4 , CORTISOL , FEV1 , ADR4JKY , DLCO , RVSP , HDL , LDL No results found for: [id number] , IRON , TIBC (more content not included)... [facility] 07-10-2024 Note Pt off unit for MRI. Check no charge [facility] 07-10-2024 Note Hospital Medicine Daily Progress Note - 07/10/2024 1:31 PM; Room: [address] [place] [address] Admission: 07/06/2024 11:47 AM; Length of stay: 4 days THE HOSPITALIST TEAM PREFERS TO USE 1Lay CHAT FOR COMMUNICATION 7AM-7PM. IF I DO NOT RESPOND WITHIN 15 MINUTES, PLEASE PAGE ME/CALL THROUGH THE SANDBLASTING SUPERVISOR. FROM 7PM-7AM, PLEASE PAGE [phone](COVR) Code Status: Full Code Barriers to Discharge: [...] (CMS/HCC) Penile hypospadias Coronary artery disease involving sk[place] coronary artery of skokomish heart without angina pectoris Assessment and Plan [...] , FREET4 , CORTISOL , FEV1 , DVN9PNU , DLCO , RVSP , HDL , LDL No results found for: [id number] , IRON , TIBC , C3 , C4 , CORETTA , CANCA , ASO , PSA , CEA , CA125 , CA199 , AFP , CA153 Imaging Complete Echo (TTE) w/wo Imaging Agent, Strain, 3D, Bubble Study 1 1 [facility] Heart Station [address] (more content not included)... [facility] 07-10-2024 Note Attestation signed by Semaj [...] sounds, non- (more content not included)... [facility] 07-10-2024 Note Recurrent urinary tr act [...] levels. Electronically signed: Jarvis Barth. 8 [facility] 07-09-2024 Note Hospital Medicine Daily Progress Note - 07/09/2024 1:22 PM; Room: [address] [place] [address] Admission: 07/06/2024 11:47 AM; Length of stay: 1 days THE HOSPITALIST TEAM PREFERS TO USE 1Lay CHAT FOR COMMUNICATION 7AM-7PM. IF I DO NOT RESPOND WITHIN 15 MINUTES, PLEASE PAGE ME/CALL THROUGH THE SANDBLASTING SUPERVISOR. FROM 7PM-7AM, PLEASE PAGE [phone](COVR) Code Status: Full Code Barriers to Discharge: [...] (CMS/HCC) Penile hypospadias Coronary artery disease involving skokomish coronary artery of skokomish heart without angina pectoris Assessment and Plan [...] , FREET4 , CORTISOL , FEV1 , XXO9IEM , DLCO , R (more content not included)... [facility] 07-09-2024 Note Occupational Therapy Occupational Therapy Treatment Patient Name: Kyelr Richard : 1940 Today's Date: 07/09/2024 07/09/24 1306 Time Calculation Start Time 1306 Stop Time 1407 Time Calculation (min) 61 min Problem List Patient Active Problem List Diagnosis Hematuria Cerebrovascular accident (CVA) due to occlusion of precerebral artery (CMS/HCC) Penile hypospadias Coronary artery disease involving sk[place] coronary artery of skokomish heart without angina pectoris Treatment: 07/09/24 1306 OT Last Visit OT Received On 07/09/24 General Subjective Pt pleasant and agreable to self care session at this time. 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 [facility] 07-09-2024 Note Occupational Therapy Name: Kyler Richard Date of : 1940 Today's Date: 07/09/24 Pt is unable to be seen for therapy at this time secondary to patient off the floor at ECHO at this time . Will check back and complete therapy session as appropriate. Check No Charge Time attempted: 1050A [facility] 07-09-2024 Note Physical Therapy Name: Kyler Richard Date of : 1940 Today's Date: 07/09/24 Pt is unable to be seen for therapy at this time secondary to pt off unit. Will check back and complete therapy session as appropriate. Check No Charge Time attempted: 10:05 [facility] 07-08-2024 Note 07/08/24 4745 Admission Assessment Questions Verify insurance with patient [...] Interested (send any new Scripts to [facility] in [place]) Does the patient have a lead case manager assigned to them through their insurance? No Living Arrangement (Current/Prior to Hospitalization) Private residence;Home self care (lives with his Azul in 2 story house, Bedroom & Full Bathroom are on Main Level; Has the support of 3 adult kids, friends & christianity members) Does the patient have history of HHC or SNF? Yes (currently active/finishing up with [facility] ; previously went to [facility] SNF after his stroke in March but stated will never go back there again ) Assistive Device Cane;Grab bars;Raised toilet seat;Walker;Wheelchair;Bedside Commode (has Shower Chair) Patient's goal for discharge wants to think about options : Home with C vs SNF Was patient reminded that goal for discharge is 11am? Yes Does the patient have transportation at discharge? Yes (likely Family) Type of Residence Home care staff;alf facility (Home with [facility], agreeable to resume services vs SNF) Is PT/OT appropriate? Yes Is PT/OT ordered? Yes Is SW consult appropriate? Yes Is SW consult ordered? No Do you understand the benefits of MyChart? No Were you able to send link and activate MyChart? No (declined MyChart set-up) Screen completed with patient, Azul & daughter at bedside. [facility] 07-08-2024 Note Pharmacy Dosing Serv ice - Vancomycin Initial Consult Note Pharmacy has been consulted for the dosing and evaluation of Drug: Vancomycin Indication: UTI AUC 400-600 mg*hr/L and trough 10-20 mcg/mL Other Antimicrobial Regimens: None Labs and Renal Function Total body weight: 87.5 kg (192 lb 14.4 oz) [place] body weight: 54.6 kg (120 lb 5.9 [...] Thank you, Elvira Brandon, PharmD, 07/08/24 [facility] 07-08-2024 Note Physical Therapy Physical Therapy Treatment Patient Name: Kyelr Richard : 1940 Today's Date: 07/08/2024 Time In: 1016 Time Out: 1048 Patient Active Problem List Diagnosis Hematuria Cerebrovascular accident (CVA) due to occlusion of precerebral artery (CMS/HCC) Penile hypospadias Coronary artery disease involving skokom[place] coronary artery of skokomish heart without angina pectoris Objective General Visit [...] with RW General Assessment General Assessment Hearing: [place] Skin Integrity: All visualized areas intact Static [...] to you (more content not included)... [facility] 07-08-2024 Note Hospital Medicine Daily Progress Note - 07/08/2024 8:43 AM; [facility]: [facility] Admission: 07/06/2024 11:47 AM; Length of stay: 1 days THE HOSPITALIST TEAM PREFERS TO USE 1Lay CHAT FOR COMMUNICATION 7AM-7PM. IF I DO NOT RESPOND WITHIN 15 MINUTES, PLEASE PAGE ME/CALL THROUGH THE SANDBLASTING SUPERVISOR. FROM 7PM-7AM, PLEASE PAGE [phone](COVR) Code Status: Full Code Barriers to Discharge: [...] (CMS/HCC) Penile hypospadias Coronary artery disease involving skokom[place] coronary artery of skokomish heart without angina pectoris Assessment and Plan [...] , FREET4 , CORTISOL , FEV1 , WCS8JLV , DLCO , RVSP , HDL , LDL No results found for: ASTIRNBU50 , IRON , TIBC , C3 , C4 , CORETTA , CANCA , ASO , PSA , CEA , CA125 , CA199 , AFP , CA153 Imaging No image results found. Discharge Planning Expected Discharge Disp (more content not included)... [facility] 07-07-2024 Note Checked patient's ro om twice no visitors at those times. Called patient's and left a voicemail. Left a list of SNF's at bedside with writers contact info. [facility] 07-07-2024 Note Hospital Medicine Daily Progress Note - 07/07/2024 1:59 PM; Room: [address] [place] [address] Admission: 07/06/2024 11:47 AM; Length of stay: 1 days THE HOSPITALIST TEAM PREFERS TO USE 1Lay CHAT FOR NON-URGENT COMMUNICATION 7AM-7PM. IF I DO NOT RESPOND WITHIN 20 MINUTES OR URGENT MATTERS, PLEASE CALL THROUGH THE SANDBLASTING SUPERVISOR. FROM 7PM-7AM, PLEASE PAGE [phone](COVR). Code Status: Full Code Barriers to Discharge: [...] (CMS/HCC) Penile hypospadias Coronary artery disease involving skokomish coronary artery of skokomish heart without angina pectoris Assessment and Plan [...] , FREET4 , CORTISOL , FEV1 , PRS2WCT , DLCO , RVSP , HDL , LDL No results found for: [id number] , IRON , TIBC , C3 , C4 , CORETTA , CANCA , ASO , PSA , CEA , CA125 , CA199 , AFP , CA153 Imaging No image results found. Discharge Planning Expected Discharge Disposition: Home or Self Care () PT Discharge Recommendations: Home OT Discharge Recommendations: Home OT, With assist Signed Barrera Manley MD [facility] 07/07/2024 1:59 PM [facility] 07-07-2024 Note Occupational Therapy Occupational Therapy [...] (CMS/HCC) Penile hypospadias Coronary artery disease involving skok[place] coronary artery of skokomish heart without angina pectoris History reviewed. No pertinent past medical history. History reviewed. No pertinent surgical history. Precautions Precautions Medical Precautions: fall risk, telemetry Pain Pain Assessment Pain Assessment: 0-10 Pain Score: 5 - Moderate pain (with activity, 2 at rest) Pain Location: Abdomen Cognition Cognition Overall Cognitive Status: Within Functional Limits General Assessment General Assessment Hearing: [place] Home Living Home Living Type of Home: [...] Level of Function Prior Function Level of [place]: Independent with ADLs and functional transfers, Independent [...] Hand Function (more content not included)... [facility] 07-07-2024 Note Attestation signed by Kori Jay PT at 07/07/2024 3:02 PM This life underwriter present and provided 1:1 supervision, direction of patient care and assistance with development of plan of care. Kori Jay PT, MPT Physical Therapy Evaluation Patient Name: Kyler Richard Today's Date: 07/07/2024 Admit Date: 07/06/2024 07/07/24 1304 PT Last Visit PT Received On 11/12/24 Plan Level of assist 1 assist PT Plan Skilled PT PT Frequency 5 times per week until discharge & PRN PT Discharge Recommendations alf facility placement (Possible discharge home with improved mobility.) PT - Discharge Recommendations Placed Yes History of present illness Patient is a 83 y.o. male transferred here for inpatient urological care. Pt had multiple trips back to the ED with only limited successful irrigation attempts, for hematuria. Past Medical History L small vessel CVA w minimal R sided deficits, hypospadias, CAD s/p CABG x4 ~2006, obesity Current Diagnoses Recurrent Hematuria PRIOR LEVEL OF FUNCTION obtained per patient Vision: glasses for reading only Hearing: hearing aides Mobility: uses rolling walker, straight cane for household distances. , uses rolling walker for community distances. 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 [facility] 07-07-2024 Note Urology Daily Progre ss [...] Plan: Maintain More catheter for now 24 Swazi three-way More catheter in place with import [...] as documented above. Jerry Cheatham MD [facility] 07-06-2024 Note Urology Consultation Patient: Kyler [...] in no acute distress. Patient has 16 [address] More catheter in place draining arelis urine [...] breath, abdominal/flank pain, diarrhea or constipation. 16 Swazi More catheter was exchanged bedside for a 24 Swazi three-way. Catheter was exchanged without complication. Patient [...] PSA Urinalysi (more content not included)... [facility] 07-06-2024 Note Hospital Medicine History and Physical 07/06/2024 12:52 PM THE HOSPITALIST TEAM PREFERS TO USE Mowbly FOR COMMUNICATION 7AM-7PM. IF I DO NOT RESPOND WITHIN 15 MINUTES, PLEASE PAGE ME/CALL THROUGH THE SANDBLASTING SUPERVISOR. FROM 7PM-7AM, PLEASE PAGE [phone](COVR) Chief Complaint No chief complaint on file. History of Present Illness Kyler Richard is an 83 y.o. male with a PMH of recent L small vessel CVA w minimal R sided deficits, hypospadias, and history of CAD s/p CABG x4 ~2007, who presents from [facility] as transfer with a chief complaint of recurrent hematuria. Patient denies requiring a More catheter initially after stroke back in March, but began having episodes of hematuria and intermittent obstruction secondary to clots prompting a More catheter placement at his halfway where he was transferred for rehab. Due [...] obstruction/retention H (more content not included)... [facility] 06-02-2024 Hospital Discharge instructions Patient Education [...] Follow these instructions at home: Medicines Take gyew-ear-dwsadgw and prescription medicines only as told by [...] provider. Document Revised: 05/03/2021 Document Reviewed: 05/03/2021 [employer] Patient Education 2023 [place]. 06/02/2024 13:23:02 Urinary Tract Infection, Adult Urinary [...] Treatment for this condition includes: Antibiotic medicine. Ufnp-qym-ouwvmte medicines to treat discomfort. Drinking enough water [...] Follow these instructions at home: Medicines Take urdi-pve-kpgztri and prescription medicines only as told by [...] provider. Document Revised: 03/19/2021 Document Reviewed: 03/24/2021 [employer] Patient Education 2023 [place]. 06/02/2024 13:22:59 Hematuria, Adult Hematuria, Adult Hematuria [...] Follow these instructions at home: Medicines Take rasd-jsg-yfquwin and prescription medicines only as told by [...] or the blood stops without treatment. Take lmqb-rpu-mhvgkqs and prescription medicines only as told by your health care provider. Drink enough fluid to keep your urine pale yellow. This information is not intended to replace advice given to you by your health care provider. Make sure you discuss any questions you have with your health care provider. Document Revised: 04/12/2021 Document Reviewed: 04/12/2021 [employer] Patient Education 2023 [place]. Follow Up Care 05/25/2024 13:00:03 With:KIM Lino APRN, PARVIN Kirk, URL Address: When: Unknown Comments:4-week cath change [facility] 06-02-2024 Note Patient Education Obstetrics and [...] this condition includes: ? Antibiotic medicine. ? Qree-xgt-zqkpouh medicines to treat discomfort. ? Drinking enough [...] these instructions at home: Medicines ? Take goux-tdj-jmyziva and prescription medicines only as told by [...] Document Revised: 03/19 (more content not included)... [facility] 04-17-[address] BRAIN WO CONT [...] low as reasonably achievable. Finalized by Jose Elais Garner DO on 04/17/2024 8:52 AM [facility] 03-17-2024 Hospital Discharge instructions Patient [...] Follow these instructions at home: Medicines Take nvav-mik-sekhiau and prescription medicines only as told by [...] provider. Document Revised: 05/03/2021 Document Reviewed: 05/03/2021 [employer] Patient Education 2022 [place]. Follow Up Care 03/13/2024 14:20:02 With:KIM Lino APRN, Lazara Echavarria, PARVIN, URL Address: When: Unknown [facility] 03-17-2024 Note Patient Education Urology Acute Urinary [...] these instructions at home: Medicines ? Take plcl-vak-pwcsgio and prescription medicines only as told by [...] provider. Document Revised: 05/03/2021 Document Reviewed: 05/03/2021 [employer] Patient Education ? 2022 [place]. [facility] 02-11-2024 Evaluation + Plan note Diagnostic Tests PendingUrine Culture 02/11/24 [facility] 02-11-2024 Hospital Discharge instructions Patient Education [...] Follow these instructions at home: Medicines Take bjym-ads-gsniqxa and prescription medicines only as told by [...] or the blood stops without treatment. Take dcra-wgm-dqhmxnf and prescription medicines only as told by your health care provider. Drink enough fluid to keep your urine pale yellow. This information is not intended to replace advice given to you by your health care provider. Make sure you discuss any questions you have with your health care provider. Document Revised: 04/12/2021 Document Reviewed: 04/12/2021 [employer] Patient Education 2022 [place]. 02/11/2024 10:34:29 Benign Prostatic Hyperplasia Benign Prostatic [...] urethra. Follow these instructions at home: Take akts-cqx-ipatwmf and prescription medicines only as told by [...] provider. Document Revised: 02/28/2022 Document Reviewed: 02/28/2022 [employer] Patient Education 2022 [place]. Follow Up Care 04/16/2022 14:54:37 With:KIM Lino APRN, PARVIN Kirk, URL Address: When: Unknown Comments:1 year With:JAYDON COE, Reno Maciel, URL Address: [facility] [address], [facility] [place] [address] [phone] When: Unknown [facility] 07-17-2023 Evaluation note Encounter Date Diagnosis [...] no improvement in 2 to 3 days [employer] Other 02-01-2023 Hospital Discharge instructions Patient Education [...] or mouth. Supplies needed: Soap. Alcohol-based hand picking belt operator. Standard cleaning products. Disinfectants, such as [...] water are not available, use alcohol-based hand picking belt operator. Avoid touching your face, mouth, nose, [...] water. Air-dry your dishes or use a pharmaceutical sales. Do not share dishes or eating utensils. [...] certain germs and not others. Read the medical records administrator's instructions or read online resources to determine [...] minutes after each use, or according to medical records administrator's instructions. Wash reusable cleaning cloths and sanitize [...] water are not available, use alcohol-based hand picking belt operator. In general: Stay home except to [...] for Professionals in Infection Control and Epidemiology: professionals.site.apic.org/ecdkhhwa-ha-ysqf/vvc-sfzbroluqn-nxxojtm/home/ Summary It is important to know how [...] 05/21/2009 Document Revised: 12/08/2019 Document Reviewed: 11/06/2019 [employer] Patient Education 2019 [place]. Follow Up Care 09/20/2022 14:58:28 With:JAYDON COE, Reno Maciel, URL Address: [facility] [address] , [place] [address]- When:3 months Comments:UTI F/U [facility] 08-22-2022 Hospital Discharge instructions Patient Education 04/16/2022 [...] urethra. Follow these instructions at home: Take mdwc-ffn-qsxkijz and prescription medicines only as told by [...] 08/12/2006 Document Revised: 07/07/2019 Document Reviewed: 09/16/2017 [employer] Patient Education 2020 [place]. 04/16/2022 14:44:17 Calorie Counting for Weight Loss [...] 08/12/2006 Document Revised: 05/01/2019 Document Reviewed: 07/12/2017 [employer] Patient Education 2020 [place]. Follow Up Care 10/16/2021 15:00:57 With:JAYDON COE, Reno Maciel, URL Address: [address] [place], [place] [address] [address]- Business (1) When:Within 1 Year(s) [facility] 02-11-2021 NotePatient Outreach (COVAMN) KYLER RICHARD ([id number]) 1940 M Date Time Provider Department 10/06/20 JOLYNN RUSSO During your visit today, we recorded the following information about you: Allergies As of Date: 10/06/2020 (No Known Allergies) Date Reviewed: 11/27/2018 Reviewed by: Huyen Barraza - Fully Assessed Order(s):SARS-COVID VACCINE 1ST DOSE APPT [[id number]] Order #: [id number] FUTURE Prescriptions as of 10/06/2020 Sig: RHOPRESSA [...] Text Encounter Status:Closed by KAREN VOGELUSER on 10/10/20[facility] Evaluation + Plan note Future Appointments Appointment Date:04/19/2023 09:30:00 AM Scheduled Provider:Reno INTERIANO MD Location:[facility] Appointment Type:URO Office Visit [facility] evaluation + Plan note Future Appointments Appointment Date:01/16/2023 09:45:00 AM Scheduled Provider:Reno INTERIANO MD Location:[facility] Appointment Type:URO Office Visit Appointment Date:04/19/2023 09:30:00 AM Scheduled Provider:Reno INTERIANO MD Location:[facility] Appointment Type:URO Office Visit [facility] Evaluation + Plan note Future Appointments Appointment Date:04/14/2024 11:30:00 AM Scheduled Provider:KIM Lino APRN, [place] Location:[facility] Appointment Type:URO Office Visit [facility] evaluation + Plan note Future Appointments Appointment Date:06/30/2024 09:00:00 AM Scheduled Provider:KIM Lino APRN, [place] Location:[facility] Appointment Type:URO Office Visit Diagnostic Tests Pending * Urine Culture 06/02/24 [facility] Evaluation + Plan note Future Appointments Appointment Date:06/30/2024 09:00:00 AM Scheduled Provider:KIM Lino APRN, [place] Location:[facility] Appointment Type:URO Office Visit [facility] evaluation + Plan note Future Appointments Appointment Date:07/21/2024 11:00:00 AM Scheduled Provider:KIM Lino APRN, [place] Location:[facility] Appointment Type:URO Office Visit [facility] Evaluation + Plan note Future Appointments Appointment Date:08/06/2024 11:40:00 AM Scheduled Provider:DI TROTTER PA-C Location:[facility] Appointment Type:URO Office Visit [facility] evaluation + Plan note Future Appointments Appointment Date:09/03/2024 11:20:00 AM Scheduled Provider:DI TROTTER PA-C Location:[facility] Appointment Type:URO Complex Office Visit [facility] evaluation + Plan note Future Appointments Appointment Date:10/02/2024 11:15:00 AM Scheduled Provider:Reno INTERIANO MD Location:[facility] Appointment Type:URO Office Visit [facility] evaluation + Plan note Future Appointments Appointment Date:10/30/2024 11:40:00 AM Scheduled Provider:DI TROTTER PA-C Location:[facility] Appointment Type:URO Office Visit [facility] History general Narrative - Reported* Type Description Date Medical History heart disease Medical History colon cancer Medical History glaucoma Surgical History open heart surgery Surgical History colon surgery Surgical History 3 hernia repairs Surgical History torn retina Surgical History cataracts Surgical History left total hip 2017 Surgical History Eye lid lift both 2020 Hospitalization History see above Hospitalization History back spasms 2022 [facility] course Narrative No data available for this section [facility] Hospital Discharge instructions No data available for this section [facility] No data available for this section [facility] Summary Purpose Family History No Family History [...] content) DATE CREATED AUTHOR 09/19/2021 [facility] DATE CREATED AUTHOR AUTHOR'S ORGANIZ ATION 02/01/2023 [place] DATE CREATED AUTHOR AUTHOR'S ORGANIZ ATION 12/31/2023 [facility] DATE CREATED AUTHOR AUTHOR'S ORGANIZ ATION 02/14/2024 Nu[facility]ez Oneida [facility] DATE CREATED AUTHOR AUTHOR'S ORGANIZ ATION 04/22/2024 [facility] DATE CREATED AUTHOR AUTHOR'S ORGANIZ ATION 04/23/2024 [facility] DATE CREATED AUTHOR AUTHOR'S ORGANIZ ATION 06/03/2024 Nu[facility]ez Jose En[facility] DATE CREATED AUTHOR AUTHOR'S ORGANIZ ATION 06/06/2024 [place] [facility] DATE CREATED AUTHOR AUTHOR'S ORGANIZ ATION 08/09/2024 [facility] DATE CREATED AUTHOR AUTHOR'S ORGANIZ ATION 10/30/2024 Nuñez Oneida [facility] DATE CREATED AUTHOR AUTHOR'S ORGANIZ ATION 11/01/2024 Nuñez Oneida [facility] Care Team (unrecognized sect ion and content) Personnel Name: Bayron Velazquez MD Address: [address] [place] [address] [place], [place] [address] Personnel Name: Bayron Velazquez MD Address: Address: [address] [place] [address] [place] [address]- [place] Personnel Name: Bayron Velazquez MD Address: Address: [address] [place] [address] [place] [address]- [place] Personnel Name: Bayron Velazquez MD Address: Address: [address] [place] [address] [place] [address]- [place] Personnel Name: Bayron Velazquez MD Address: Address: [address] [place] [address] [place] [address]- [place] Personnel Name: Bayron Velazquez MD Address: Address: [address] [place] [address] [place] [address]- [place] Personnel Name: Bayron Velazquez MD Address: Address: [address] [place] [address] [place] [address]- [place] Personnel Name: Bayron Velazquez MD Address: Address: [address] [place] [address] [place] [address]- [place] Personnel Name: Bayron Velazquez MD Address: Address: [address] [place] [address] [place] [address]- [place] Personnel Name: Bayron Velazquez MD Address: Address: [address] [place] [address] [place] [address]- [place] Personnel Name: Bayron Velazquez MD Address: Address: [address] [place] [address] [place] [address]- [place] Personnel Name: Bayron Velazquez MD Address: Address: [address] [place] [address] [place] [address]- [place] Personnel Name: Bayron Velazquez MD Address: Address: [address] [place] [address] [place] [address]- [place] Personnel Name: Bayron Velazquez MD Address: Address: [address] [place] [address] [place] [address]- [place] REASON FOR VISIT (unrecogniz ed section [...] BE BASED ON THE PRIMARY CLINICAL RECORDS. [facility] [employer] [facility]. provides no warranty or guarantee of the accuracy or completeness of information in this document.
[2024-11-03 11:12] LABS: Basophils Absolute Auto 0.1 10^3/uL (0.0-0.1); Eosinophils Absolute Auto 0.4 10^3/uL (0.0-0.7); Eosinophils Percent Auto 6.2 % (0.9-7.0); Hematocrit 44.5 % (42.0-54.0); Hemoglobin 15.1 g/dL (14.0-18.0); Immature Granulocytes Abs Auto 0.02 10^3/uL (0.00-0.03); Immature Granulocytes Pct Auto 0.3 % (0.0-0.5); Lymphocytes Absolute Auto 2.6 10^3/uL (1.2-3.8); Lymphocytes Percent Auto 43.2 % (20.5-60.0); Mean Corpuscular HGB Conc 33.9 g/dL (29.9-35.2); Mean Corpuscular Volume 91.4 fL (80.0-94.0); Mean Platelet Volume 9.9 fL (9.5-13.5); Monocytes Absolute Auto 0.6 10^3/uL (0.3-0.8); Monocytes Percent Auto 9.5 % (1.7-12.0); Neutrophils Absolute Auto 2.4 10^3/uL (1.4-6.5); Neutrophils Percent Auto 39.8 % (43.0-75.0); Platelet Count 191 10^3/uL (150-450); Red Blood Count 4.87 10^6/uL (4.70-6.10); Red Cell Distribution Width 13.5 % (11.0-15.0)
[2024-11-03 11:44] LABS: Estimated Average Glucose 120 mg/dL; Glycohemoglobin A1C 5.8 % (4.5-6.2)
[2024-11-03 11:58] LABS: Alanine Aminotransferase 25 U/L (16-63); Albumin Globulin Ratio 0.9; Albumin Level 3.4 g/dL (3.4-5.0); Alkaline Phosphatase 96 U/L (46-116); Anion Gap 9.1; Aspartate Amino Transferase 20 U/L (15-37); Bilirubin Total 0.7 mg/dL (0.2-1.0); Calcium 8.9 mg/dL (8.5-10.1); Carbon Dioxide 29.1 mmol/L (21.0-32.0); Chloride 105 mmol/L (98-107); Chol HDL Ratio 2.8; Cholesterol 114 mg/dL (<=200); Estimated GFR (African America >60 (>=60 mL/min/1.73m^2); Estimated GFR (Non-African Ame >60 (>=60 mL/min/1.73m^2); Free T3 2.55 pg/mL (2.18-3.98); Globulin 3.8 g/dL; Glucose 99 mg/dL (74-106); HDL Cholesterol 40 mg/dL (40-60); Potassium 4.2 mmol/L (3.5-5.1); Sodium 139 mmol/L (136-145); Thyroid Stimulating Hormone 1.944 uIU/mL (0.358-3.740); Total Protein 7.2 g/dL (6.4-8.2); Triglycerides 163 mg/dL (<=150); VLDL CHOLESTEROL 32.6 mg/dL
[2024-11-03 12:19] LABS: Prostate Specific Antigen Scrn 0.25 ng/mL (<=4.00)
== END 2024-11-03 10:43 | disposition home or self-care (01) ==
LOC: LAB 10:43
PROVIDERS: PCP Family Medicine; Visit Provider Family Medicine
DX: M54.16 Radiculopathy, lumbar region (principal); E66.01 Morbid (severe) obesity due to excess calories; I69.351 Hemiplegia and hemiparesis following cerebral infarction affecting right dominant side; I10 Essential (primary) hypertension; K58.9 Irritable bowel syndrome, unspecified; E78.5 Hyperlipidemia, unspecified; R73.09 Other abnormal glucose; Z12.12 Encounter for screening for malignant neoplasm of rectum; Z12.5 Encounter for screening for malignant neoplasm of prostate
CPT/HCPCS: 36415; 80053; 80061; 83036; 84436; 84443; 84481; 85025; G0103

== ENCOUNTER 2024-11-09 16:13 | Outpatient (RCR) | payer MEDICARE, SELFPAY | END 2024-12-12 07:27 | disposition home or self-care (01) | LOC: PT 16:13 | PROVIDERS: PCP Family Medicine; Visit Provider Family Medicine | DX: I69.351 Hemiplegia and hemiparesis following cerebral infarction affecting right dominant side (principal) | CPT/HCPCS: 97110; 97112; 97140; 97162; 97530 ==

== ENCOUNTER 2024-11-25 08:41 | Outpatient (REF) | payer MEDICARE, SELFPAY ==
[2024-11-25 09:18] LABS: Internal Control Within Normal Limits; Occult Blood Negative
== END 2024-11-25 08:42 | disposition home or self-care (01) ==
LOC: LAB 08:41
PROVIDERS: PCP Family Medicine; Visit Provider Family Medicine
DX: E66.01 Morbid (severe) obesity due to excess calories (principal); I69.351 Hemiplegia and hemiparesis following cerebral infarction affecting right dominant side; I10 Essential (primary) hypertension; M54.16 Radiculopathy, lumbar region; K58.9 Irritable bowel syndrome, unspecified; E78.5 Hyperlipidemia, unspecified; R73.09 Other abnormal glucose; Z12.12 Encounter for screening for malignant neoplasm of rectum; Z12.5 Encounter for screening for malignant neoplasm of prostate
CPT/HCPCS: G0328

== ENCOUNTER 2024-12-22 11:19 | Emergency (ER) | payer MEDICARE, SELFPAY ==
[2024-12-22 11:32] VITALS: BP 210/102; PULSE 82; TEMP 36.7; O2SAT 95; BMI 35.4
[2024-12-22 12:23] LABS: Bilirubin Urine NEGATIVE (NEGATIVE); Blood Urine LARGE (NEGATIVE); Clarity Urine CLEAR (CLEAR); Color Urine LT. YELLOW (YELLOW); Glucose Urine UA NEGATIVE (NEGATIVE); Ketones Urine NEGATIVE (NEGATIVE); Leukocyte Esterase Urine LARGE (NEGATIVE); Nitrite Urine POSITIVE (NEGATIVE); Protein Urine 100 mg/dL (NEG/TRACE); Specific Gravity Urine 1.015 (1.005-1.025); Urobilinogen Urine 0.2 EU/dL (0.2-1.0); pH Urine 6.5 (5.0-9.0)
--- NOTE | 2024-12-22 12:23 | PC.NURSE ---
Arrives to ER with sanches catheter in place, scant amount of urine in leg bag. Attempted to irrigate sanches catheter and resistence met. Sanches removed and patient immediately has relief from cramping. New sanches catheter inserted and is draining large amount of cloudy pink tinged urine.
[2024-12-22 12:24] LABS: Urine Microscopic Indicated YES
[2024-12-22 12:37] LABS: Bacteria Urine MODERATE #/HPF (NONE SEEN); Cast Seen? NONE SEEN #/LPF (NONE SEEN); Crystals Seen? None Seen #/HPF (None Seen); Mucus Urine NONE SEEN (NONE SEEN); Squamous Epithelial Cell Urine RARE #/LPF (NONE/RARE)
[2024-12-22 12:38] LABS: RBC Urine 50-75 #/HPF (0-2); Urine Culture Indicated YES-FRMC; WBC Urine 20-50 #/HPF (NONE SEEN)
--- NOTE | 2024-12-22 12:40 | ED.ABDPAIN1 ---
HPI - Abdominal Pain General Chief Complaint: Abdominal Pain Stated Complaint: BLADDER, PELVIC PAIN X'S 8HRS Time Seen by Provider: 12/22/24 11:46 Source: patient Mode of arrival: ambulance History of Present Illness HPI narrative: The patient is coming to the ER with a suprapubic discomfort and pain that started over the last few hours he does have a More catheter in place but is not draining, the patient denies any nausea vomiting or any other concerns or any fever Related Data Home Medications ?Medication ?Instructions ?Recorded ?Confirmed aspirin 81 mg tablet,delayed 81 mg PO DAILY 05/20/23 07/06/24 release atorvastatin 40 mg tablet 80 mg PO DAILY 05/20/23 10/28/24 dorzolamide 22.3 mg-timolol 6.8 1 drp ophthalmic (eye) BID 05/20/23 07/06/24 mg/mL eye drops icosapent ethyl 1 gram capsule 2 g PO BID 05/20/23 07/06/24 latanoprost 0.005 % eye drops 1 drp ophthalmic (eye) .QHS 05/20/23 07/06/24 lisinopril 10 mg tablet 10 mg PO DAILY 05/20/23 07/06/24 netarsudil 0.02 % eye drops 1 drp ophthalmic (eye) DAILY 05/20/23 07/06/24 (Rhopressa) brimonidine 0.2 % eye drops 1 drp ophthalmic (eye) BID 03/02/24 07/06/24 cetirizine 10 mg tablet 10 mg PO DAILY 03/02/24 04/07/24 clopidogrel 75 mg tablet 75 mg PO DAILY 07/06/24 07/06/24 metoprolol tartrate 25 mg tablet 25 mg PO BID 07/06/24 07/06/24 carvedilol 6.25 mg tablet 6.25 mg PO BID 10/28/24 10/28/24 Previous Rx's ?Medication ?Instructions ?Recorded cephalexin 500 mg capsule 500 mg PO Q8H 7 days #21 caps 12/22/24 Allergies Allergy/AdvReac Type Severity Reaction Status Date / Time levofloxacin (From Levaquin) AdvReac UPSET Verified 12/22/24 11:32 STOMACH Review of Systems ROS Status of ROS 10 or more systems reviewed and unremarkable except as noted in history and below [facility] Medical History (Updated 12/22/24 @ 13:02 by Zoe Howard MD) HYDABURG (hard of hearing) ?H91.90 - Unspecified hearing loss, unspecified ear (ICD-10) Lumbar stenosis with neurogenic claudication ?M48.062 - Spinal stenosis, lumbar region with neurogenic claudication (ICD-10) Lumbar spondylosis ?M47.816 - Spondylosis without myelopathy or radiculopathy, lumbar region (ICD-10) Myofascial pain ?M79.18 - Myalgia, other site (ICD-10) Acute UTI ?N39.0 - Urinary tract infection, site not specified (ICD-10) Acute urinary retention ?R33.8 - Other retention of urine (ICD-10) Acute urinary retention ?R33.8 - Other retention of urine (ICD-10) BPH (benign prostatic hyperplasia) ?N40.0 - Benign prostatic hyperplasia without lower urinary tract symptoms (ICD-10) Urethral stricture ?N35.919 - Unspecified urethral stricture, male, unspecified site (ICD-10) Gross hematuria ?R31.0 - Gross hematuria (ICD-10) Sleep apnea ?G47.30 - Sleep apnea, unspecified (ICD-10) High cholesterol ?E78.00 - Pure hypercholesterolemia, unspecified (ICD-10) Heart disease ?I51.9 - Heart disease, unspecified (ICD-10) Hypertension ?I10 - Essential (primary) hypertension (ICD-10) Glaucoma ?H40.9 - Unspecified glaucoma (ICD-10) Colon cancer ?C18.9 - Malignant neoplasm of colon, unspecified (ICD-10) Inability to walk ?R26.2 - Difficulty in walking, not elsewhere classified (ICD-10) Chronic back pain ?M54.9 - Dorsalgia, unspecified (ICD-10) ?G89.29 - Other chronic pain (ICD-10) Surgical History History of cataract extraction ?Z98.49 - Cataract extraction status, unspecified eye (ICD-10) S/P tonsillectomy and adenoidectomy ?Z90.89 - Acquired absence of other organs (ICD-10) History of hydrocelectomy ?Z98.890 - Other specified postprocedural states (ICD-10) Detached retina, left ?H33.22 - Serous retinal detachment, left eye (ICD-10) History of colectomy ?Z90.49 - Acquired absence of other specified parts of digestive tract (ICD-10) 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 Smoking status: Never smoker Non-prescribed substance use: denies use Previous occupational history: retired Highest level of school completed/degree received: Bachelor's degree Are you now , , , , never or living with a partner: Little interest or pleasure in doing things: not at all Feeling down, depressed, or hopeless: not at all Feel stressed/tense/nervous/anxious/difficulty sleeping: not at all Do you think of yourself as: straight/heterosexual Gender Identity: male Exam Narrative Exam Narrative: Nurses notes and vital signs reviewed and patient is not hypoxic. General: Patient in distress due to pain Skin: Warm, dry, no pallor noted. No rash. Head: Normocephalic, atraumatic. Neck: Supple, non-tender. Eye: Pupils are equal, round and EOMI. No scleral icterus. Ears, Nose, Mouth, and Throat: TM are clear, no nasal mucosal hypertrophy. Oral mucosa is moist, no posterior oropharynx erythema, uvula is mid-line Cardiovascular: Regular Rate and Rhythm without murmur, gallop or rub. Respiratory: No accessory muscle use or respiratory distress. Lungs are clear to auscultation, no wheezing, rales or rhonchi Chest Wall: no tenderness Back: No midline thoracic or lumbar vertebral tenderness. No CVA tenderness Musculoskeletal: normal ROM, no calf or popliteal tenderness, no lower extremity edema/swelling GI: Abdomen suprapubic discomfort and distention that is obvious Neurological: A&O x4. No cranial nerve dysfunction observed. Constitutional Vital Signs, click to edit/add: Last Vital Signs Temp 98.0 F 12/22/24 11:32 Pulse 75 12/22/24 12:46 Resp 20 12/22/24 12:46 BP 122/74 12/22/24 12:46 Pulse Ox 96 12/22/24 12:46 O2 Del Method Room Air 12/22/24 12:46 Course Vital Signs Vital signs: Vital Signs Temperature 98.0 F 12/22/24 11:32 Pulse Rate 82 12/22/24 11:32 Respiratory Rate 20 12/22/24 11:32 Blood Pressure 210/102 H 12/22/24 11:32 Pulse Oximetry 95 12/22/24 11:32 Oxygen Delivery Method Room Air 12/22/24 11:32 Temperature 98.0 F 12/22/24 11:32 Pulse Rate 75 12/22/24 12:46 Respiratory Rate 20 12/22/24 12:46 Blood Pressure 122/74 12/22/24 12:46 Pulse Oximetry 96 12/22/24 12:46 Oxygen Delivery Method Room Air 12/22/24 12:46 MDM - Abdominal Pain MDM Narrative Medical decision making narrative: Upon arrival the patient was in distress mostly second to the fact that the catheter was not in place, after replacing the catheter it was draining and he was feeling much better Urinalysis showed some nitrites and white blood cell with the fact that this is a urinalysis obtained from a sample from the catheter the patient will be started on Keflex The patient is to follow up with primary care physician in next 2-3 days or to return to the emergency department should any of the signs or symptoms worsen or new symptoms develop. The patient agrees with the following Diagnosis and Treatment plan and the patient will be discharged home. Lab Data Labs: Lab Results 12/22/24 Range/Units 12:15 Urine Color Lt. yellow (YELLOW) Urine Clarity Clear (CLEAR) Urine pH 6.5 (5.0-9.0) Ur Specific [place] 1.015 (1.005-1.025) Urine Protein 100 A (NEG/TRACE) mg/dL Urine Glucose (UA) Negative (NEGATIVE) mg/dL Urine Ketones Negative (NEGATIVE) mg/dL Urine Occult Blood Large A (NEGATIVE) Urine Nitrite Positive A (NEGATIVE) Urine Bilirubin Negative (NEGATIVE) Urine Urobilinogen 0.2 (0.2-1.0) EU/dL Ur Leukocyte Esterase Large A (NEGATIVE) Urine RBC 50-75 A (0-2) #/HPF Urine WBC 20-50 A (NONE SEEN) #/HPF Ur Squamous Epith Cells Rare (NONE/RARE) #/LPF Urine Crystals None seen (None Seen) #/HPF Urine Bacteria Moderate A (NONE SEEN) #/HPF Urine Casts None seen (NONE SEEN) #/LPF Urine Mucus None seen (NONE SEEN) Ur Culture Indicated? Yes-[facility] [place] Plan Discharge Chief Complaint: Abdominal Pain Clinical Impression: Acute urinary retention, Bacterial UTI Patient Disposition: Home, Self-Care Time of Disposition Decision: 13:02 Condition: Good Prescriptions / Home Meds: New cephalexin 500 mg capsule 500 mg PO Q8H 7 Days Qty: 21 0RF No Action atorvastatin 40 mg tablet 80 mg PO DAILY dorzolamide-timolol 22.3-6.8 mg/mL drops 1 drp OPHTHALMIC (EYE) BID Rx Instructions: BOTH EYES icosapent ethyl 1 gram capsule 2 g PO BID latanoprost 0.005 % drops 1 drp OPHTHALMIC (EYE) .QHS Rx Instructions: RIGHT EYE lisinopril 10 mg tablet 10 mg PO DAILY Rhopressa 0.02 % drops 1 drp OPHTHALMIC (EYE) DAILY Rx Instructions: RIGHT EYE aspirin 81 mg tablet,delayed release (DR/EC) 81 mg PO DAILY cetirizine 10 mg tablet 10 mg PO DAILY brimonidine 0.2 % drops 1 drp OPHTHALMIC (EYE) BID carvedilol 6.25 mg tablet 6.25 mg PO BID Rx Instructions: must administer with a meal/food clopidogrel 75 mg tablet 75 mg PO DAILY metoprolol tartrate 25 mg tablet 25 mg PO BID Print Language: Tajik Instructions: Urinary Tract Infection in Men (DC), More Catheter Placement and Care (ED) Referrals: Bayron Ba MD [Primary Care Provider, Family Practice] - 1 week
[2024-12-22 12:46] VITALS: BP 122/74; PULSE 75; O2SAT 96
== END 2024-12-22 13:52 | disposition home or self-care (01) ==
PROVIDERS: Emergency Provider Emergency Medicine; PCP Family Medicine
DX: N39.0 Urinary tract infection, site not specified (principal); R33.9 Retention of urine, unspecified; T83.028A Displacement of other urinary catheter, initial encounter; Z95.1 Presence of aortocoronary bypass graft; Z96.642 Presence of left artificial hip joint
CPT/HCPCS: 51702; 81001; 87086; 87088; 87186; 99284

== ENCOUNTER 2025-08-15 15:08 | Emergency (ER) | payer MEDICARE, SELFPAY ==
--- OUTSIDE RECORDS SUMMARY | 2024-07-29 06:15 | XMS_ITS ---
Author Organization [facility] [place] Address [address] [place] [address] Care Team Providers Care Visual Merchandising Coordinator Name Role Phone Dada Ba Primary Care Provider [phone] Rocio Taylor [phone] REASON FOR VISIT 4 month f/u Encounters Encounter Location Date Provider Diagnosis [address] [address] 07/29/2024 Rocio Taylor Plan Of Treatment No Information Progress Notes * Prashanth RICHARD RDOB:1940 (84 yo M)Acc No.[id number]:07/29/2024 UNLOCKED PROGRESS NOTE Progress Note Patient: Zheng BETANCOURT Prashanth Maciel :?Rocio WYNN), SANTIAGODOB:1940 ???Age:83 Y???Sex:MaleDate:4Phone:[phone]:[address] [place] [id number]:Dada Ba Subjective: * Chief Complaints: * 1 . 4 month f/u. * Medical History: Objective: * Vitals: Assessment: Plan: * Treatment: * * Electronic signature of Rocio Taylor NP, MEMORY CARE PROGRAM DIRECTOR.[email or web address] on 08/15/2025 at 03:35 PM ESTSign off status: PendingVisit Status:?CANC (Cancelled) * Provider: Cristobal WYNN), FLOATMAN Date: 1 09/29/2023 Generated for Printing/Faxing/eTransmitting on:?08/15/2025 03:35 PM EST
--- OUTSIDE RECORDS SUMMARY | 2025-08-04 23:59 | XMS_ITS | Continuity of Care Document ---
Author Organization [facility] Address Unknown Care Team Providers Care Park Naturalist Name Role Phone Bayron Ba Primary Care Physician [phone] Encounter FT_FIN [id number] Date(s): 08/04/25 - 08/04/25 [facility] [address] [place], [place] [address] Encounter Diagnosis Other obstructive and reflux uropathy(Discharge Diagnosis) - 08/04/25 Discharge Disposition: Home (Routine DC) Attending Physician: Linda Castillo PA-C Admitting Physician: Linda Castillo PA-C Encounter Type: Lab Drop off Allergies, Adverse Reactions, Alerts SubstanceCriticalitySeverityReactionReaction SeverityStatuslevoFLOXacin IrritationActive Treatment Plan Future Appointments Appointment Date:08/31/2025 12:50:00 PM Scheduled Provider:Linda Castillo PA-C Location:[facility] Appointment Type:URO Office Visit Diagnostic Tests Pending * Urine Culture 08/04/25 Immunizations Given and Recorded VaccineDateStatusRefusal Reasoninfluenza virus vaccine, inactivated05/24/22 Recordedinfluenza virus vaccine, ldecyfhpvcd01/7/21Recordedinfluenza virus vaccine, inactivated05/23/21Recordedinfluenza virus vaccine, imjdxamjqnd62/30/20 Recordedinfluenza virus vaccine, /1/20Recordedinfluenza virus vaccine, yjwyeiutcgr37/4/19Recordedinfluenza virus vaccine, yxfvtctzixe02/23/18 Recordedinfluenza virus vaccine, inactivated05/14/Recordedinfluenza virus vaccine, inactivated05/17/Recordedinfluenza virus vaccine, inactivated05/16/15 RecordedSARSCoV2 mRNA(mewvgcbvd-przz-okwhfp) vac04/20/2279VsrmngatRIET-KoR-5 (COVID-19) mRNA BNT-162b2 vax10//72BlyreyaxNQPB-QuI-0 (COVID-19) mRNA BNT- 162b2 vax3/18/97HedwroeoGRPW-MyL-0 (COVID-19) mRNA BNT-162b2 vax2//Recorded zoster vaccine, tgygxilnsgp52/10/20Recordedzoster vaccine, zxwvarapqif54/9/20 BxoejwscNICE-YgA-4 (COVID-19) Ad26 cxworbb25/11/86OqafaxfoXPOM-OqH-2 (COVID-19) Ad26 sfpugve55/8/20Recordedpneumococcal 23-valent vaccine05/14/17Recorded pneumococcal 13-valent vaccine05/17/Recorded Medications aspirin Start Date: 09/26/22 Status: Ordered Medication Dispense Status: Completed Total Allowed Fills: 1 Fills Dispensed: 0 atorvastatin 40 mg oral tablet Refills(s) 0 Start Date: 03/13/19 Status: Ordered Medication Dispense Status: Completed Total Allowed Fills: 1 Fills Dispensed: 0 brimonidine ophthalmic 0.2% solution Refill(s) 0 Start Date: 03/13/19 Status: Ordered Medication Dispense Status: Completed Total Allowed Fills: 1 Fills Dispensed: 0 cetirizine 10 mg Tab Refills(s) 0 Start Date: 02/11/24 Status: Ordered Medication Dispense Status: Completed Total Allowed Fills: 1 Fills Dispensed: 0 dorzolamide 2% ophthalmic solution 1 drop(s), OPTH, TID, 10 mL, Refill(s) 0 Start Date: 03/13/19 Status: Ordered Medication Dispense Status: Completed Quantity: 10.0 Unit: mL Total Allowed Fills: 1 Fills Dispensed: 0 doxycycline hyclate 100 mg Cap 100 mg = 1 cap(s), Oral, BID, may substitute hyclate for monohydrate based on availability, X 7 day(s), # 14 cap(s), Refills(s) 0, Pharmacy: [facility] #[facility], 158, cm, 10/02/24 11:49:00 EST, Height/Length Dosing, 96, kg, 10/02/24 11:49:00 EST, Weight Dosing Start Date: 08/04/25 Stop Date: 08/11/25 Status: Ordered Medication Dispense Status: Completed Quantity: 14.0 Unit: cap(s) Total Allowed Fills: 1 Fills Dispensed: 0 Indications: Retention of urine, unspecified; Unspecified symptoms and signs involving the genitourinary system; fluticasone Nasal 0.05 mg/inh [facility] instill 1 spray into each nostril once daily Start Date: 03/17/24 Status: Ordered Medication Dispense Status: Completed Total Allowed Fills: 1 Fills Dispensed: 0 latanoprost ophthalmic 0.005% solution 1 drop(s), OPTH, Once a day (at bedtime), 2.5 mL, Refill(s) 0 Start Date: 03/13/19 Status: Ordered Medication Dispense Status: Completed Quantity: 2.5 Unit: mL Total Allowed Fills: 1 Fills Dispensed: 0 lisinopril 10 mg oral tablet Refills(s) 0 Start Date: 03/13/19 Status: Ordered Medication Dispense Status: Completed Total Allowed Fills: 1 Fills Dispensed: 0 Lopressor 25 mg oral tablet 25 mg = 1 tab(s), Oral, Daily, Refills(s) 0 Start Date: 03/13/19 Status: Ordered Medication Dispense Status: Completed Total Allowed Fills: 1 Fills Dispensed: 0 Multi Vitamin+ Start Date: 09/26/22 Status: Ordered Medication Dispense Status: Completed Total Allowed Fills: 1 Fills Dispensed: 0 oxybutynin 5 mg Tab 5 mg = 1 tab(s), Oral, TID, PRN for urinary discomfort, # 30 tab(s), Refills(s) 3, Pharmacy: [facility] #72, 158, cm, 10/02/24 11:49:00 EST, Height/Length Dosing, 96, kg, 10/02/24 11:49:00 EST, Weight Dosing Start Date: 08/04/25 Status: Ordered Medication Dispense Status: Completed Quantity: 30.0 Unit: tab(s) Total Allowed Fills: 4 Fills Dispensed: 0 Indications: Retention of urine, unspecified; Unspecified symptoms and signs involving the genitourinary system; Rhopressa 0.02% ophthalmic solution Refill(s) 0 Start Date: 03/13/19 Status: Ordered Medication Dispense Status: Completed Total Allowed Fills: 1 Fills Dispensed: 0 timolol Opth 0.5% Yvette 5 mL Refill(s) 0 Start Date: 03/13/19 Status: Ordered Medication Dispense Status: Completed Total Allowed Fills: 1 Fills Dispensed: 0 Vascepa 1 g oral capsule Refills(s) 0 Start Date: 03/13/19 Status: Ordered Medication Dispense Status: Completed Total Allowed Fills: 1 Fills Dispensed: 0 Problem List ConditionConfirmationCourseEffective DatesStatusHealth StatusInformantBacteremia due to methicillin resistant Staphylococcus aureusConfirmedActiveBalanitis ConfirmedActiveBPH with urinary obstructionConfirmedActiveCholelithiases ConfirmedActiveBMI 36.0-36.9,adultConfirmedActiveColon cancer stage 1Confirmed ResolvedHydroceleConfirmedActiveGross hematuriaConfirmedActiveHistory of UTI ConfirmedActiveHydroceleConfirmed< 08/26/89ResolvedElevated cholesterolConfirmed ActiveHypertensionConfirmedActiveKidney stoneConfirmedActiveAntiplatelet or antithrombotic long-term useConfirmedActiveUrethral stricture in maleConfirmed ActiveMRSA (methicillin resistant staph aureus) culture [id number] 06/02/24ActiveNocturiaConfirmedActivePericarditisConfirmedActivePhimosisConfirmed ActiveUrinary retentionConfirmedActiveLeft retinal detachmentConfirmedActive Scrotal cystConfirmedActiveSleep apneaConfirmedActiveSpermatoceleConfirmedActive Testicular massConfirmedActiveUrethral strictureConfirmedActiveUTI symptoms ConfirmedActiveUTI (urinary tract infection)ConfirmedActive 1MRSA in urine 06/02/2024 Procedures ProcedureDateRelated DiagnosisBody SiteStatusCystoscope03/17/19CompletedCABG - Coronary artery bypass graftCompletedCardiac catheterisationCompletedCataract extractionCompletedHip replacementCompletedHydrocelectomyCompletedInguinal herniorrhaphyCompletedLarge bowel resectionCompletedRotator cuff repairCompleted Tonsillectomy and adenoidectomyCompleted Social History Social History TypeResponseSmoking StatusNever (less than 100 in lifetime);Never ; Concerns about tobacco use in household: No; Smoking Cessation Yes entered on: 10/02/24Birth SexMaleSex RepresentationMale (finding) Patient Care team information Care Team Personnel Name: Bayron Ba MD Position: FT Physician Member Role: Primary Care Physician Address: [address] [place] [address] Telecom: Care Team Related Persons Name: JAMESON RICHARD Insurance Providers Guarantor name: KYLER [facility] Plan Information #: 1 Payer: [employer] Payer Identifier: [id number] Member Number: [id number] Group Number: [id number] Subscriber Identifier: [id number] Relationship to Subscriber: self Coverage Type: MEDICARE Coverage Verification Date: Telecom: [phone] Address: [facility] [address] [place], [place] [address]
--- OUTSIDE RECORDS SUMMARY | 2025-08-04 23:59 | XMS_ITS | Continuity of Care Document ---
Author Organization [facility] Address [address] [place] [address] Care Team Providers Care Customs Director Name Role Phone Bayron Ba Primary Care Physician [phone] Encounter FT_AMBFIN [id number] Date(s): 08/04/25 - 08/04/[address] [facility] [address] [place] [address]- Encounter Diagnosis UTI symptoms(Discharge Diagnosis) - 08/04/25 Urinary retention(Discharge Diagnosis) - 08/04/25 Discharge Disposition: Home (Routine DC) Attending Physician: Linda Castillo PA-C Encounter Type: Clinic Allergies, Adverse Reactions, Alerts SubstanceCriticalitySeverityReactionReaction SeverityStatuslevoFLOXacin IrritationActive Treatment Plan Future Appointments Appointment Date:08/31/2025 12:50:00 PM Scheduled Provider:Linda Castillo PA-C Location:[facility] Appointment Type:URO Office Visit Immunizations Given and Recorded VaccineDateStatusRefusal Reasoninfluenza virus vaccine, inactivated05/24/22 Recordedinfluenza virus vaccine, vempywqdkvj98/7/21Recordedinfluenza virus vaccine, inactivated05/23/21Recordedinfluenza virus vaccine, demhfblrnfl62/30/20 Recordedinfluenza virus vaccine, mvlkjikykbl01/1/20Recordedinfluenza virus vaccine, jnpqucgckzz74/4/19Recordedinfluenza virus vaccine, ytkfksbjhin42/23/18 Recordedinfluenza virus vaccine, inactivated05/14/17Recordedinfluenza virus vaccine, inactivated05/17/Recordedinfluenza virus vaccine, inactivated05/16/15 RecordedSARSCoV2 mRNA(gqudoipov-lzir-sdiqbz) vac04/20/02QeynqkxrPKFD-ScD-6 (COVID-19) mRNA BNT-162b2 vax10//59CclwooboOCAC-PvD-6 (COVID-19) mRNA BNT- 162b2 vax3//95PktjuhauYJLY-OdT-3 (COVID-19) mRNA BNT-162b2 vax2//Recorded zoster vaccine, psaswogubmb91/10/20Recordedzoster vaccine, xgdkemgxepi02/9/20 HwzuxgytXBML-WcD-3 (COVID-19) Ad26 dldvmcu94/07/1520YwcyhjneCCQK-UcJ-6 (COVID-19) Ad26 apaugrr72/04/14Recordedpneumococcal 23-valent vaccine05/14/17Recorded pneumococcal 13-valent vaccine05/17/16Recorded Medications aspirin Start Date: 09/26/22 Status: Ordered [...] day(s), # 14 cap(s), Refills(s) 0, Pharmacy: [facility] #72, 158, cm, 10/02/24 11:49:00 EST, Height/Length Dosing, 96, kg, 10/02/24 11:49:00 EST, Weight Dosing Start Date: 08/04/25 Stop Date: 08/11/25 Status: Ordered Medication Dispense Status: Completed Quantity: 14.0 Unit: cap(s) Total Allowed Fills: 1 Fills Dispensed: 0 Indications: Retention of urine, unspecified; Unspecified symptoms and signs involving the genitourinary system; fluticasone Nasal 0.05 mg/inh [place] instill 1 spray into each nostril once [...] discomfort, # 30 tab(s), Refills(s) 3, Pharmacy: [facility] #72, 158, cm, 10/02/24 11:49:00 EST, Height/Length [...] maleConfirmed ActiveMRSA (methicillin resistant staph aureus) culture bzirzksr2Smzfehyno 06/02/24ActiveNocturiaConfirmedActivePericarditisConfirmedActivePhimosisConfirmed ActiveUrinary retentionConfirmedActiveLeft retinal detachmentConfirmedActive Scrotal cystConfirmedActiveSleep [...] Yes entered on: 10/02/24Birth SexMaleSex RepresentationMale (finding) Hospital Discharge Instructions Follow Up Care 07/07/2025 13:31:59 With:Linda Castillo PA-C, CARLL Address: When: Unknown Comments:RTC in 4 weeks for cath change Patient Care team information Care Team Personnel Name: Bayron Ba MD Position: FT Physician Member Role: Primary Care Physician Address: [address] [place] [id number] Telecom: Care Team Related Persons Name: JAMESON RICHARD Insurance Providers Guarantor name: KYLER [facility] Plan Information #: 1 Payer: [employer]ET[employer] Payer Identifier: [id number] Member Number: [id number] Group Number: [id number] Subscriber Identifier: [id number] Relationship to Subscriber: self Coverage Type: MEDICARE Coverage Verification Date: 25 Telecom: [phone] Address: [facility] [id number] [place], [place] [id number] [place] [address]
--- OUTSIDE RECORDS SUMMARY | 2025-08-07 12:19 | XMS_ITS ---
Author Organization [facility] [place] Address [address] [place] [address] Care Team Providers Care Investment Analyst Name Role Phone Dada Ba Primary Care Provider REASON FOR VISIT Urine Cx Encounters Encounter Location Date Provider Diagnosis [facility] [address] [place] [address] 08/07/2025 Dada Ba UTI (urinary tract infection) N39.0 Assessments Encounter Date Diagnosis (ICD Code) Assessment Notes Treatment Notes Treatment Clinical Notes Section Notes 08/07/2025 UTI (urinary tract infection) (I CD-10 - N39.0) Plan Of Treatment Pending Test Test Name Order Date UA (URINALYSIS, COMPLETE) 08/07/2025 Urine Culture 08/07/2025 Progress Notes * Prashanth HANNAH RDOB:1940 (84 yo M)Acc No.[id number]:08/07/2025 Patient:?Prashanth HANNAH :1940???Age:84 Y???Sex:MalePhone:[phone] Address:[address] [place] [id number] Subjective: * Chief Complaints: * U rine Cx * Medical History: * Surgical History: * Hospitalization/Major Diagno stic Procedure: * Medications: Objective: * Vitals: * Physical Examination: ??? Assessment: * Assessment: 1.?UTI (urinary tract infection) - N39.0 (Primary)??? Plan: * Treatment: ?LAB: UA (URINALYSIS, COMPLETE) ?LAB: Urine Culture * Procedure Codes: * true * Date:?Generated for Printing/Faxing/eTransmitting on:?08/15/2025 03:35 PM EST
[2025-08-15 15:10] VITALS: BP 194/145; PULSE 75; TEMP 36.6; O2SAT 98; BMI 38.4
--- NOTE | 2025-08-15 15:19 | CT_ITS ---
The [address] [address] Patient Name: KYLER RICHARD MRN: [id number] date: 1940 Sex: M Assigned Patient Location: ED.MAIN Current Patient Location: ED.MAIN Accession/Order Number: [id number] Exam Date: 08/15/2025 17:30 Report Date: 08/15/2025 18:02 At the request of: RASHID MORENO MD Procedure: CT abdomen pelvis w con CT ABDOMEN AND PELVIS WITH INTRAVENOUS CONTRAST: CLINICAL HISTORY: Lower abdominal pain COMPARISON: CT abdomen and pelvis 06/03/2024 TECHNIQUE: Spiral images were obtained through the abdomen and pelvis following the administration of intravenous contrast. This CT exam was performed using one or more following dose reduction techniques: Automated exposure control, adjustment of the mA and/or kV according to patient size, or use of iterative reconstruction technique. FINDINGS: Lung Bases: [Bibasilar atelectasis. Calcified granuloma right lower lobe] Organs:Cholelithiasis. Liver portal vein pancreas and adrenal glands appear unremarkable. Splenic granulomas. No enhancing renal mass. Mild bilateral hydronephrosis and hydroureter without obstructing stone or obvious mass. Aorta is normal in caliber.[ GI: Small hiatal hernia. Distal stomach is grossly unremarkable. Small bowel appears nondilated. Appendix is normal. No acute colonic abnormality seen. Postsurgical changes involving the rectum.[ Pelvis:[Suboptimal evaluation due to streak hardware artifact from the patient's left hip prosthesis. There appears be a More catheter in place.] Peritoneum/Retroperitoneum:No free air or free fluid or lymphadenopathy.[ Abd wall/Bones:Abdominal wall demonstrates no acute findings. Osseous structures demonstrate degenerative change.[ CT/CT abdomen pelvis w con IMPRESSION: Mild bilateral hydronephrosis and hydroureter with More catheter in place. Bladder outlet obstruction cannot be excluded. No obvious obstructing stone or mass. Evaluation of More catheter patency is recommended. Cholelithiasis. Small hiatal hernia. Impression dictated by: Yusef Antony Jr. D.OFidel 08/15/2025 6:02 PM Dictation Location: [place] Electronically authenticated by: [id number] Date: 08/15/2025 18:02
--- NOTE | 2025-08-15 15:20 | ED_ITS ---
HPI HPI - General Adult General Chief complaint: Urogenital-Male Stated complaint: ABDOMINAL PAIN Time Seen by Provider: 08/15/25 15:10 Source: patient Mode of arrival: ambulance History of Present Illness HPI narrative: 84-year-old male presented to the emergency department for lower abdominal pain. He had some loose stools this morning and then had more diarrhea and now he has low abdominal pain. No blood in his stool. He has an indwelling More catheter in the paramedics noted that he was having some leaking around the catheter. He has had this particular catheter for 1 week. No fever or vomiting or injury. Related Data Home Medications ?Medication ?Instructions ?Recorded ?Confirmed aspirin 81 mg tablet,delayed 81 mg PO DAILY 05/20/23 1 09/05/23 release atorvastatin 40 mg tablet 80 mg PO DAILY 05/20/2301/17 dorzolamide 22.3 mg-timolol 6.8 1 drp ophthalmic (eye) BID 05/20/23 07/06/24 mg/mL eye drops icosapent ethyl 1 gram capsule 2 g PO BID 05/20/2307/19 latanoprost 0.005 % eye drops 1 drp ophthalmic (eye) . QHS 05/20/23 07/06/24 lisinopril 10 mg tablet 10 mg PO DAILY 05/20/2306/26 netarsudil 0.02 % eye drops 1 drp ophthalmic (eye) LINDSAY LY 05/20/23 07/06/24 (Rhopressa) brimonidine 0.2 % eye drops 1 drp ophthalmic (eye) BID 03/02/24 07/06/24 cetirizine 10 mg tablet 10 mg PO DAILY 03/02/2403/26 clopidogrel 75 mg tablet 75 mg PO DAILY 07/06/2406/26 metoprolol tartrate 25 mg tablet 25 mg PO BID 07/06/24 07/06/24 carvedilol 6.25 mg tablet 6.25 mg PO BID 10/28/2401/17 Previous Rx's ?Medication ?Instructions ?Recorded cephalexin 500 mg capsule 500 mg PO Q8H 7 days #21 cap s 12/22/24 Allergies Allergy/AdvReac Type Severity Reaction Status Date / Time levofloxacin (From Levaquin) AdvReac UPSET Verified 04/29/25 11:32 STOMACH Opioid HPI Opioid Management Most Recent Opioid Data: Last Pain Scale 10 07/06/24, 07:16 Last MAR Pain Assessment Today, 17:14 Review of Systems ROS Narrative A ten point review of systems is negative except as noted above. [facility] Medical History (Updated 08/15/25 @ 18:47 by Rony Fitzgerald MD) [place] (hard of hearing) ?H91.90 - Unspecified hearing loss, unspecified ear (ICD-10) Lumbar stenosis with neurogenic claudication ?M48.062 - Spinal stenosis, lumbar region with neurogenic claudication (ICD- 10) Lumbar spondylosis ?M47.816 - Spondylosis without myelopathy or radiculopathy, lumbar region (ICD-10) Myofascial pain ?M79.18 - Myalgia, other site (ICD-10) Acute UTI ?N39.0 - Urinary tract infection, site not specified (ICD-10) Acute urinary retention ?R33.8 - Other retention of urine (ICD-10) Acute urinary retention ?R33.8 - Other retention of urine (ICD-10) BPH (benign prostatic hyperplasia) ?N40.0 - Benign prostatic hyperplasia without lower urinary tract symptoms (ICD-10) Urethral stricture ?N35.919 - Unspecified urethral stricture, male, unspecified site (ICD-10) Gross hematuria ?R31.0 - Gross hematuria (ICD-10) Sleep apnea ?G47.30 - Sleep apnea, unspecified (ICD-10) High cholesterol ?E78.00 - Pure hypercholesterolemia, unspecified (ICD-10) Heart disease ?I51.9 - Heart disease, unspecified (ICD-10) Hypertension ?I10 - Essential (primary) hypertension (ICD-10) Glaucoma ?H40.9 - Unspecified glaucoma (ICD-10) Colon cancer ?C18.9 - Malignant neoplasm of colon, unspecified (ICD-10) Inability to walk ?R26.2 - Difficulty in walking, not elsewhere classified (ICD-10) Chronic back pain ?M54.9 - Dorsalgia, unspecified (ICD-10) ?G89.29 - Other chronic pain (ICD-10) Surgical History History of cataract extraction ?Z98.49 - Cataract extraction status, unspecified eye (ICD-10) S/P tonsillectomy and adenoidectomy ?Z90.89 - Acquired absence of other organs (ICD-10) History of hydrocelectomy ?Z98.890 - Other specified postprocedural states (ICD-10) Detached retina, left ?H33.22 - Serous retinal detachment, left eye (ICD-10) History of colectomy ?Z90.49 - Acquired absence of other specified parts of digestive tract (ICD- 10) 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 Smoking status: Never smoker Non-prescribed substance use: denies use Previous occupational history: retired Highest level of school completed/degree received: Bachelor's degree Are you now , , , , never or living with a partner: Little interest or pleasure in doing things: not at all Feeling down, depressed, or hopeless: not at all Feel stressed/tense/nervous/anxious/difficulty sleeping: not at all Do you think of yourself as: straight/heterosexual Gender Identity: male Exam Narrative Exam Narrative: Nurses note and vital signs reviewed General:The patient appears in no acute distress Skin:Warm, dry, no pallor noted.There is no rash noted. Head:Normocephalic, atraumatic Eye: Normal conjunctiva, no drainage Ears, Nose, Mouth, and Throat: oral mucosa is moist. Nares patent. Cardiovascular:Regular Rate and Rhythm Respiratory:Patient is in no distress, no accessory muscle use, lungs are clear to auscultation, no wheezing, rales or rhonchi GI: Obese and no apparent tenderness Musculoskeletal: No joint swelling Neurological:A&O, normal speech Psychiatric:Cooperative Constitutional Vital Signs, click to edit/add: Last Vital Signs Temp 97.9 F 08/15/25 15:10 Pulse 75 08/15/25 15:10 Resp 18 08/15/25 15:10 BP 172/78 H 08/15/25 17:31 Pulse Ox 98 08/15/25 17:30 O2 Del Method Room Air 08/15/25 15:10 Course Vital Signs Vital signs: Vital Signs Temperature 97.9 F 08/15/25 15:10 Pulse Rate 75 08/15/25 15:10 Respiratory Rate 18 08/15/25 15:10 Blood Pressure 194/145 H 08/15/25 15:10 Pulse Oximetry 98 08/15/25 15:10 Oxygen Delivery Method Room Air 08/15/25 15:10 Temperature 97.9 F 08/15/25 15:10 Pulse Rate 75 08/15/25 15:10 Respiratory Rate 18 08/15/25 15:10 Blood Pressure 172/78 H 08/15/25 17:31 Pulse Oximetry 98 08/15/25 17:30 Oxygen Delivery Method Room Air 08/15/25 15:10 Medical Decision Making MDM Narrative Medical decision making narrative: WBC is normal at 7.8. The patient appears to have a UTI but has a chronically indwelling More catheter. CAT scan per radiologist suggest that the More catheter may not be functioning correctly. He has hydronephrosis and hydroureter. Attempts at irrigation of the catheter were not successful and the More catheter was going to be changed. The patient is signed out to Dr. Tejeda at change of shift. Differential Diagnosis Differential Diagnosis: Constipation, UTI, More catheter malfunction, diverticulitis, colitis Lab Data Lab results reviewed: Yes I reviewed the patient's lab results Labs: Lab Results 08/15/25 08/15/25 Range/Units 15:25 16:05 WBC 7.8 (4.0-11.0) 10^3/uL RBC 5.00 (4.70-6.10) 10^6/uL Hgb 15.6 (14.0-18.0) g/dL Hct 45.2 (42.0-54.0) % MCV 90.4 (80.0-94.0) fL MCH 31.2 (25.9-34.0) pg MCHC 34.5 (29.9-35.2) g/dL RDW 12.9 (11.0-15.0) % Plt Count 189 (150-450) 10^3/uL MPV 10.4 (9.5-13.5) fL Neut % (Auto) 70.2 (43.0-75.0) % Lymph % (Auto) 22.7 (20.5-60.0) % [place] % (Auto) 4.9 (1.7-12.0) % Eos % (Auto) 1.2 (0.9-7.0) % Baso % (Auto) 0.6 (0.2-2.0) % Neut # (Auto) 5.4 (1.4-6.5) 10^3/uL Lymph # (Auto) 1.8 (1.2-3.8) 10^3/uL [place] # (Auto) 0.4 (0.3-0.8) 10^3/uL Eos # (Auto) 0.1 (0.0-0.7) 10^3/uL Baso # (Auto) 0.1 (0.0-0.1) 10^3/uL Abs Immat Gran (auto) 0.03 (0.00-0.03) 10^3/uL Imm/Tot Granulo (auto) 0.4 (0.0-0.5) % Sodium 142 (136-145) mmol/L Potassium 3.8 (3.5-5.1) mmol/L Chloride 105 (98-107) mmol/L Carbon Dioxide 25.3 (21.0-32.0) mmol/L Anion Gap 15.5 BUN 24.0 H (7.0-18.0) mg/dL Creatinine 0.97 (0.70-1.30) mg/dL Est GFR ( Amer) >60 (>=60 mL/min/1.73m^2) Est GFR (Non-Af Amer) >60 (>=60 mL/min/1.73m^2) BUN/Creatinine Ratio 24.7 Glucose 123 H (74-106) mg/dL Calcium 9.0 (8.5-10.1) mg/dL Urine Color Lt yellow (YELLOW) Urine Clarity Slightly cloudy A (CLEAR) Urine pH >=9.0 A (5.0-9.0) Ur Specific [place] 1.015 (1.005-1.025) Urine Protein >=300 A (NEG/TRACE) mg/dL Urine Glucose (UA) Negative (NEGATIVE) mg/dL Urine Ketones Negative (NEGATIVE) mg/dL Urine Occult Blood Large A (NEGATIVE) Urine Nitrite Positive A (NEGATIVE) Urine Bilirubin Negative (NEGATIVE) Urine Urobilinogen 0.2 (0.2-1.0) EU/dL Ur Leukocyte Esterase Large A (NEGATIVE) Imaging Data CT scan - abdomen: Radiologist's impression: ITS Impressions Abdomen/Pelvis CT 08/15/25 15:19 IMPRESSION: Mild bilateral hydronephrosis and hydroureter with More catheter in place. Bladder outlet obstruction cannot be excluded. No obvious obstructing stone or mass. Evaluation of More catheter patency is recommended. Cholelithiasis. Small hiatal hernia. Impression dictated by: Yusef Antony Jr., D.O. 08/15/2025 6:02 PM Dictation Location: [email or web address] Electronically authenticated by: [id number] Y Date: 08/15/2025 18:02 Discharge Plan Discharge Patient Disposition: Still a Patient
--- OUTSIDE RECORDS SUMMARY | 2025-08-15 15:36 | XMS_ITS | Patient Health Record ---
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 Role Phone Dada Ba Primary Care Provider [phone] Allergies Allergen (clinical drug ingredient) Drug/Non Drug Allergy documented on EMR Reaction Allergy Type Onset Date Status LevaquinUnknownDrug AllergyActive Results Component Value Reference Range Notes CBC AUTO DIFF Reviewed date:11/03/2024 03:59:00 PM Interpretation: Performing Lab: Notes/Report: [facility] , White Blood Count 6.0 4.0-11.0 10 3/uL Red Blood Count4.874.70-6.10 10 6/bPMdifhssvas68.114.0-18.0 g/zYVhhdowcdgh09.5 42.0-54.0 %Mean Corpuscular Atdpyq96.480.0-94.0 fLMean Corpuscular Hemoglobin 31.025.9-34.0 pgMean Corpuscular HGB Conc33.929.9-35.2 g/dLRed Cell Distribution Width13.511.0-15.0 %Platelet Kgtlm015779-863 10 3/uLMean Platelet Volume9.99.5- 13.5 fLNeutrophils Percent Auto39.843.0-75.0 %Lymphocytes Percent Auto43.220.5- 60.0 %Monocytes Percent Auto9.51.7-12.0 %Eosinophils Percent Auto6.20.9-7.0 % Basophils Percent Auto1.00.2-2.0 %Immature Granulocytes Pct Auto0.30.0-0.5 % Neutrophils Absolute Auto2.41.4-6.5 10 3/uLLymphocytes Absolute Auto2.61.2-3.8 10 3/uLMonocytes Absolute Auto0.60.3-0.8 10 3/uLEosinophils Absolute Auto0.40.0- 0.7 10 3/uLBasophils Absolute Auto0.10.0-0.1 10 3/uLImmature Granulocytes Abs Auto0.020.00-0.03 10 3/uLPerforming Lab:see noteML - [facility] LB FREE T3 Reviewed date:11/03/2024 03:59:00 PM Interpretation: Performing Lab: Notes/Report: [facility] ,Free T32.552.18-3.98 pg/mLPerforming Lab:see note - [facility] LB GLYCOHEMOGLOBIN A1C Reviewed date:11/03/2024 03:59:00 PM Interpretation: Performing Lab: Notes/Report: [facility] ,Glycohemoglobin A1C5.84.5-6.2 % ACTION SUGGESTED ADA RECOMMENDED LIMIT 4.0 - 6.0 ADA THERAPEUTIC TARGET < 7.0 > 7.0 Estimated Average Snxwcpd224Jircdhrxiw Lab:see noteML - [facility] LB LIPID PROFILE Reviewed date:11/03/2024 03:59:00 PM Interpretation: Performing Lab: Notes/Report: [facility] ,Xiyjkfsyrrrwq833<=150 mg/cTYfwghhujqaz526<=200 mg/dLHDL Xvfrxqqruch3173-70 mg/dL > or =60 mg/dl - LOW CARDIOVASCULAR RISK <40 mg/dl - HIGH CARDIOVASCULAR RISK LDL Cholesterol Rqsolrdtbd45.0 130-159 mg/dl BORDERLINE HIGH 100-129 mg/dl NEAR OR ABOVE OPTIMAL >190 mg/dl VERY HIGH <100 mg/dl OPTIMAL 160-189 mg/dl HIGH VLDL TLZVKSRSFRH15.6Chol HDL Ratio2.8 7.1 - 11.0 MODERATE RISK 4.4 - 7.1 AVERAGE RISK >11.0 HIGH RISK 3.3 - 4.4 LOW RISK Performing Lab:see note - [facility] LBPROF 14(COMP METB) Reviewed date:11/03/2024 03:59:00 PM Interpretation: Performing Lab: Notes/Report: [facility] ,Exkvoo583319-525 mmol/LPotassium4.23.5-5.1 mmol/HRugpwjoo34146-457 mmol/LCarbon Hahgxyr07.121.0-32.0 mmol/LAnion Gap9.2Pswjfdl4706-823 mg/dLBlood Urea Nitrogen 24.07.0-18.0 mg/dLCreatinine1.090.70-1.30 mg/dLEstimated GFR ( [place]ibha>60 >=60 mL/min/1.73m 2Estimated GFR (Non- [place]>60>=60 mL/min/1.73m 2BUN Creatinine Ratio22.6Cajdrcb4.98.5-10.1 mg/dLBilirubin Total0.70.2-1.0 mg/dL Aspartate Amino Zswyhmulgrv7286-90 U/LAlanine Epklyazcqrdfwoxh9568-16 U/L Alkaline Lxzrhayosxw3320-258 U/LTotal Protein7.26.4-8.2 g/dLAlbumin Level3.43.4- 5.0 g/dLGlobulin3.8Albumin Globulin Ratio0.9Performing Lab:see noteML - [facility] LBPSA SCREENING Reviewed date:11/03/2024 03:59:00 PM Interpretation: Performing Lab: Notes/Report: [facility] ,Prostate Specific Antigen Scrn0.25<=4.00 ng/mLPerforming Lab:see note - [facility] LBT4 Reviewed date:11/03/2024 03:59:00 PM Interpretation: Performing Lab: Notes/Report: [facility] ,T4 Thyroxine6.704.50-12.10 ug/dLPerforming Lab:see noteML - [facility] LBTSH Reviewed date:11/03/2024 03:59:00 PM Interpretation: Performing Lab: Notes/Report: [facility] ,Thyroid Stimulating Hormone1.9440.358-3.740 uIU/mLPerforming Lab:see note - [facility] LBUA (CLEAN or CATCH) SEISMOGRAPH RECORDER or MICRO IF IND. Reviewed date:12/22/2024 04:08:33 PM Interpretation: Performing Lab: Notes/Report: [facility] ,Color UrineLT. YELLOWYELLOWClarity UrineCLEARCLEARSpecific [place] Urine1.015 1.005-1.025pH Urine6.55.0-9.0Protein Hxmqi615IAP/TRACE mg/dLGlucose Urine UA NEGATIVENEGATIVE mg/dLBilirubin UrineNEGATIVENEGATIVEKetones UrineNEGATIVE NEGATIVE mg/dLBlood UrineLARGENEGATIVENitrite UrinePOSITIVENEGATIVEUrobilinogen Urine0.20.2-1.0 EU/dLLeukocyte Esterase UrineLARGENEGATIVEUrine Microscopic IndicatedYESPerforming Lab:see noteML - [facility] LBURINE MICROSCOPIC ONLY Reviewed date:12/22/2024 04:08:33 PM Interpretation: Performing Lab: Notes/Report: [facility] ,WBC Fkvla29-87MYOX SEEN #/HPFRBC Moejl26-279-7 #/HPFBacteria UrineMODERATENONE SEEN #/HPFMucus UrineNONE SEENNONE SEENSquamous Epithelial Cell UrineRARE NONE/RARE #/LPFCrystals Seen?None SeenNone Seen #/HPFCast Seen?NONE SEENNONE SEEN #/LPFUrine Culture IndicatedYES-FRMCPerforming Lab:see noteML - [facility] LBUrine Culture - [facility] Reviewed date:12/27/2024 12:37:45 PM Interpretation: Performing Lab: Notes/Report: [facility] ,Urine Culture - [facility]MCSee Below For Report Organism: 1.1 Urine Culture - [facility] Hulen Count Testing performed at [facility] Isolated Urine Culture - [facility] Antibiotic Interpretation CARIN Status O:KLEPNE Urine Culture - [id number] [place] [address] Organism: 1.1 Urine Culture - [facility] Hulen Count Testing performed at [facility] Isolated Urine Culture - [facility] Antibiotic Interpretation CARIN Status O:KLEPNE Urine Culture - FRMCSee Below For Report Organism: 1.1 Urine Culture - [facility] Hulen Count Testing performed at [facility] Isolated Urine Culture - [facility] Antibiotic Interpretation CARIN Status O:KLEPNE Urine Culture - FRMCSee Below For Report Organism: 1.1 Urine Culture - [facility] Hulen Count Testing performed at [facility] Isolated Urine Culture - [facility] Antibiotic Interpretation CARIN Status O:KLEPNE Urine Culture - [facility]>100,000 Organism: 1.1 Urine Culture - [facility] Hulen Count Testing performed at [facility] Isolated Urine Culture - FR Antibiotic Interpretation CARIN Status O:KLEPNE Urine Culture - FRMCSee Below For Report Organism: 1.1 Urine Culture - [facility] Hulen Count Testing performed at [facility] Isolated Urine Culture - FR Antibiotic Interpretation CARIN Status O:KLEPNE Urine Culture - FRMCAmikacin S F Organism: 1.1 Urine Culture - [facility] Hulen Count Testing performed at [facility] Isolated Urine Culture - FR Antibiotic Interpretation CARIN Status O:KLEPNE Urine Culture - FRMCAmoxicillin/Clavulanate S F Organism: 1.1 Urine Culture - [facility] Hulen Count Testing performed at [facility] Isolated Urine Culture - FR Antibiotic Interpretation CARIN Status O:KLEPNE Urine Culture - FRMCAztreonam S F Organism: 1.1 Urine Culture - [facility] Hulen Count Testing performed at [facility] Isolated Urine Culture - [facility] Antibiotic Interpretation CARIN Status O:KLEPNE Urine Culture - FRMCCeftazidime S F Organism: 1.1 Urine Culture - [facility] Hulen Count Testing performed at [facility] Isolated Urine Culture - FR Antibiotic Interpretation CARIN Status O:KLEPNE Urine Culture - FRMCCeftazidime/Avibactam S F Organism: 1.1 Urine Culture - [facility] Hulen Count Testing performed at [facility] Isolated Urine Culture - FR Antibiotic Interpretation CARIN Status O:KLEPNE Urine Culture - FRMCCeftolozane/Tazobactam S F Organism: 1.1 Urine Culture - [facility] Hulen Count Testing performed at [facility] Isolated Urine Culture - FR Antibiotic Interpretation CARIN Status O:KLEPNE Urine Culture - FRMCCiprofloxacin S F Organism: 1.1 Urine Culture - [facility] Hulen Count Testing performed at [facility] Isolated Urine Culture - [facility] Antibiotic Interpretation CARIN Status O:KLEPNE Urine Culture - FRMCErtapenem S F Organism: 1.1 Urine Culture - [facility] Hulen Count Testing performed at [facility] Isolated Urine Culture - [facility] Antibiotic Interpretation CARIN Status O:KLEPNE Urine Culture - FRMCGentamicin S F Organism: 1.1 Urine Culture - [facility] Hulen Count Testing performed at [facility] Isolated Urine Culture - [facility] Antibiotic Interpretation CARIN Status O:KLEPNE Urine Culture - FRMCLevofloxacin S F Organism: 1.1 Urine Culture - [facility] Hulen Count Testing performed at [facility] Isolated Urine Culture - [facility] Antibiotic Interpretation CARIN Status O:KLEPNE Urine Culture - FRMCMeropenem S F Organism: 1.1 Urine Culture - [facility] Hulen Count Testing performed at [facility] Isolated Urine Culture - [facility] Antibiotic Interpretation CARIN Status O:KLEPNE Urine Culture - FRMCMeropenem/Vaborbactam S F Organism: 1.1 Urine Culture - [facility] Hulen Count Testing performed at [facility] Isolated Urine Culture - [facility] Antibiotic Interpretation CARIN Status O:KLEPNE Urine Culture - FRMCNitrofurantoin S F Organism: 1.1 Urine Culture - [facility] Hulen Count Testing performed at [facility] Isolated Urine Culture - [facility] Antibiotic Interpretation CARIN Status O:KLEPNE Urine Culture - FRMCTetracycline S F Organism: 1.1 Urine Culture - [facility] Hulen Count Testing performed at [facility] Isolated Urine Culture - [facility] Antibiotic Interpretation CARIN Status O:KLEPNE Urine Culture - FRMCTigecycline S F Organism: 1.1 Urine Culture - [facility] Hulen Count Testing performed at [facility] Isolated Urine Culture - FR Antibiotic Interpretation CARIN Status O:KLEPNE Urine Culture - FRMCTobramycin S F Organism: 1.1 Urine Culture - [facility] Hulen Count Testing performed at [facility] Isolated Urine Culture - [facility] Antibiotic Interpretation CARIN Status O:KLEPNE Urine Culture - FRMCAmpicillin/Sulbactam S F Organism: 1.1 Urine Culture - [facility] Hulen Count Testing performed at [facility] Isolated Urine Culture - [facility] Antibiotic Interpretation CARIN Status O:KLEPNE Urine Culture - FRMCCefazolin S F Organism: 1.1 Urine Culture - [facility] Hulen Count Testing performed at [facility] Isolated Urine Culture - [facility] Antibiotic Interpretation CARIN Status O:KLEPNE Urine Culture - FRMCCefepime S F Organism: 1.1 Urine Culture - [facility] Hulen Count Testing performed at [facility] Isolated Urine Culture - [facility] Antibiotic Interpretation CARIN Status O:KLEPNE Urine Culture - FRMCCeftriaxone S F Organism: 1.1 Urine Culture - [facility] [place]ulen Count Testing performed at [facility] Isolated Urine Culture - [facility] Antibiotic Interpretation CARIN Status O:KLEPNE Urine Culture - FRMCCefuroxime S F Organism: 1.1 Urine Culture - [facility] [place]ulen Count Testing performed at [facility] Isolated Urine Culture - FR Antibiotic Interpretation CARIN Status O:KLEPNE Urine Culture - FRMCPiperacillin/Tazobactam S F Organism: 1.1 Urine Culture - [facility] Hulen Count Testing performed at [facility] Isolated Urine Culture - [facility] Antibiotic Interpretation CARIN Status O:KLEPNE Urine Culture - FRMCTrimethoprim/Sulfa S F Organism: 1.1 Urine Culture - [facility] Hulen Count Testing performed at [facility] Isolated Urine Culture - [facility] Antibiotic Interpretation CARIN Status O:KLEPNE Performing Lab:see note SEE REPORT - Finishing Lab Technician Id information not found for OBX-specific rn residential legend ML - [facility] LB Occult Blood* Reviewed date:11/25/2024 08:03:29 PM Interpretation: Performing Lab: Notes/Report: [facility] ,Occult BloodNegativePerforming Lab:see noteML - [facility] LB Reason For Referral Diagnosis 1 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) Referral Organization [facility] Medicine Referring Provider First Name Dada Referring Provider Last Name Mejia Referring Provider Speciality Family Med icine Referred Provider [facility], Physical Therap y Referred Provider Specialty Physical The rapist Referral Priority Routine Medications Medication SIG (Take, Route, Frequency, Duration) Notes Start Date End Date Status Carvedilol 6.25 MG 1 tablet with food Orally Twi ce a day; Duration: 90 days 07/14/2024ctiveDicyclomine HCl 20 MG1 tablet Orally QID; Duration: 30 days 11/03/2024Not-TakingLevsin/SL 0.125 MG1 tablet under the tongue and allow to dissolve as needed for abd pain Sublingual AC and HS12/19/2023Not-Taking Cetirizine HCl 10 mgTAKE 1 TABLET BY MOUTH EVERY DAY; Duration: 30Not-Taking Atorvastatin Calcium 40 mgTAKE 1 TABLET BY MOUTH DAILY; Duration: 30Active Aspirin 81 81 MG1 tablet Orally Once a day; Duration: 90 daysNot-TakingVascepa 1 GMTAKE 2 CAPSULES BY MOUTH TWICE DAILY; Duration: 90Active Immunizations Vaccine Route Administration Date Status Comme nts Flu, Fluad (48991) 65 yrs and older, single-dose syringe (2637-7155) IM Intramuscular 05/27/2024 Administered Flu, Fluad (27913) 65 yrs and older, single-dose syringe (6384-0436)IM Jiwtjnslgqlgo39/17/2025AdministeredFlu, Fluad (59568) 65 yrs and older, single- dose syringe (5717-5028)IM Jlwrehnwkhjqw96/17/2025AdministeredFlu, Fluad (25528) 65 yrs+, single-dose syringe ()IM Btatxjhgeckzg40/20/2023Administered Social History Tobacco Use: Social History Observation Description Date Details (start date - stop date) Never Smoker NA - NA Tobacco Use/Smoking Question Answer Notes Patient is a nonsmoker Alcohol Screen (Audit-C) Question Answer Notes Did you have a drink containing alcohol in the p ast year? No Ntizvx3OiqxvyfvlakaaiGrgsrefgHXMMM-R (Standard) Question Answer Notes Did you have a drink containing alcohol in the p ast year? No Omljyt2PgefoilnvfguemXmwiiwml Problems Problem Type SNOMED Code ICD Code Onset Dates Problem Status W/U Status Risk Notes Problem Morbid obesity (disorder) (02568 6002) Morbid (severe) obesity due to excess calories (E66.01) ActiveconfirmedProblemVenous ulcer of lower extremity due to chronic peripheral venous hypertension (disorder) (124802826554526)Chronic venous hypertension (idiopathic) with ulcer of right lower extremity (I87.311)ActiveconfirmedProblem Venous ulcer of lower extremity due to chronic peripheral venous hypertension (733651128329663)Chronic venous hypertension (idiopathic) with ulcer of left lower extremity (I87.312)ActiveconfirmedProblemLow back strain (933421458)Strain of muscle, fascia and tendon of lower back, initial encounter (S39.012A)Active confirmedProblemHistory of fall (406416601)History of falling (Z91.81)Active confirmedProblemMitral regurgitation (05184286)Mitral regurgitation (I34.0) ActiveconfirmedProblemOsteoarthritis (584530122)Osteoarthritis (M19.90)Active confirmedProblemCarpal tunnel syndrome (09120362)Carpal tunnel syndrome, bilateral (G56.01)ActiveconfirmedProblemAngina pectoris (882307073)Angina pectoris (I20.9)ActiveconfirmedProblemPalpitations (14116193)Palpitation (R00.2) ActiveconfirmedProblemStroke (802363705)Stroke (I63.9)ActiveconfirmedProblemLeft ventricular hypertrophy (09816401)Left ventricular hypertrophy (I51.7)Active confirmedProblemHistory of coronary artery bypass grafting (064155169)Hx of CABG (Z95.1)ActiveconfirmedProblemSleep apnea (27661441)Sleep apnea (G47.30)Active confirmedProblemHip pain (85101208)Hip pain (M25.559)ActiveconfirmedProblem Osteoarthritis of knee (088575771)Knee osteoarthritis (M17.9)Activeconfirmed ProblemHypertriglyceridemia (527981664)Hypertriglyceridemia (E78.1)Active confirmedProblemDiarrhea (29912321)Diarrhea (R19.7)ActiveconfirmedProblem Cellulitis (871140322)Cellulitis (L03.90)ActiveconfirmedProblemBenign hypertension (41025586)Benign hypertension (I10)ActiveconfirmedProblemHeart disease (09278159)Heart disease (I51.9)ActiveconfirmedProblemUmbilical hernia (457001592)Umbilical hernia (K42.9)ActiveconfirmedProblemOverweight (974178153) Over weight (E66.3)ActiveconfirmedProblemBladder outlet obstruction (881568002) Bladder outlet obstruction (N32.0)ActiveconfirmedProblemIrritable bowel (96809180)Irritable bowel (K58.9)ActiveconfirmedProblemCarcinoma of sigmoid colon (082115740)Carcinoma of sigmoid colon (C18.7)ActiveconfirmedProblem Derangement of knee (51709865)Internal derangement of knee, right (M23.91)Active confirmedProblemChronic ischemic heart disease (588827656)Chronic ischemic heart disease (I25.9)ActiveconfirmedProblemPain of ear (finding) (965820695)Otalgia, unspecified laterality (H92.09)ActiveconfirmedProblemLumbar radiculopathy (255832079)Lumbar radiculopathy, right (M54.16)ActiveconfirmedProblemWalking disability (152937927)Cannot walk (R26.2)ActiveconfirmedProblemOther symptoms referable to back (M53.80)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 (272542777)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)ActiveconfirmedProblemCellulitis of finger of left hand (10633094719012400)Cellulitis of finger, left (L03.012) ActiveconfirmedProblemAtherosclerosis of alturas coronary artery (446111557) Atherosclerosis of alt[place] coronary artery (I25.10)ActiveconfirmedProblem Essential hypertension (63968583)BP (high blood pressure) (I10)Activeconfirmed ProblemHypercholesterolemia (65514149)Hypercholesterolemia (E78.00)Active confirmedProblemCyst of epididymis (18453227)Cyst, epididymis (N50.3)Active 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 media (45318265)Acute otitis media, unspecified otitis media type (H66.90)ActiveconfirmedProblemNon-pressure chronic ulcer of other part of right lower leg with other specified severity (L97.818) ActiveconfirmedProblemOsteoarthritis of knee (746657280)Osteoarthritis of right knee (M17.11)Activeconfirmed Vital Signs Blood pressure diastolic 74 mm Hg 11/03/2024 Obrejp29 in11/03/2024lood pressure sohiubro817 mm Hg11/03/20246020Nixghz995.6 lbs 11/03/2024BMI35.35 kg/m211/03/2024 Encounters Encounter Location Date Provider Diagnosis [facility] [address] [place] [address] 11/03/2024 Dada Hoy Morbid (severe) obes ity due to excess calories E66.01 ; Hemiplga following cerebral infrc aff right dominant side I69.351 ; Benign hypertension I10 ; Lumbar radiculopathy, right M54.16 and Irritable bowel K58.9 [facility] [address] [place] [facility] [place] [address] 06/11/2025 Dada Ba Encounter for immunization Z23 and Encounter for immunization Z23 [facility] [address] [place] [facility] [place] [address] 09/28/2024 Dada Andiy [facility] [place] [facility] [place] [address] 11/03/2024[facility] [place] [address]/06/2025Doug HoyMorbid (severe) obesity due to excess calories E66.01[place] [address] [place] [place] [address]/[facility] [place] [address]/11/2024[facility] [place] [address]/03/2025[facility] [place] [address]/[facility] [place] [address]/ Dada BaUTI (urinary tract infection) N39.0[place] [address] [place] [address]/06/2025Doug HoyNon-pressure chronic ulcer of other part of right lower leg with other specified severity L97.818 Assessments Encounter Date Diagnosis (ICD Code) Assessment Notes Treatment Notes Treatment Clinical Notes Section Notes 11/03/2024 Morbid (severe) obesity due to e xcess calories (ICD-10 - E66.01) 11/03/2024Hemiplga following cerebral infrc aff right dominant side (ICD-10 - I69.351)11/03/2024Morbid (severe) obesity due to excess calories (ICD-10 - E66.01)08/07/2025UTI (urinary tract infection) (ICD-10 - N39.0)03/05/2025Non- pressure chronic ulcer of other part of right lower leg with other specified severity (ICD-10 -L97.818)Ulcer completely healed - no pain and no erythema 06/11/2025Encounter for immunization (ICD-10 - Z23)06/11/2025Encounter for immunization (ICD-10 - Z23)11/03/2024enign hypertension (ICD-10 - I10) 11/03/2024Lumbar radiculopathy, right (ICD-10 - M54.16)11/03/2024Irritable bowel (ICD-10 - K58.9) Plan Of Treatment Pending Test Test Name Order Date Holter Test 01/23/2023 CMP (COMPLETE METABOLIC PANEL) UA (URINALYSIS, COMPLETE) 08/10/2024 UA (URINALYSIS, COMPLETE) 08/07/2025 HEMOGLOBIN A1C (GLYCO) 11/03/2024 LIPID PANEL (CHOL/TRIG/HDL/LDL) 11/04/19 25 Urine Culture 08/07/2025 Urine Culture 08/10/2024 FECAL OCCULT BLOOD 08/05/2024 C DIFF PCR - C Difficile Toxin Gene TERRIE - LC 05/14/2023 US Liver 08/10/2024 US Pancreas 08/10/2024 US Gallbladder 08/10/2024 STOOL OCCULT BLOOD 11/03/2024 C. DIFF PCR 01/23/2023 STOOL CULTURE 01/23/2023 URINE MICROSCOPIC ONLY 08/10/2024 THYROID PANEL (T4/TSH/FREE T3) 5 THYROID PANEL (T4/TSH/FREE T3) 4 Free PSA 08/05/2024 PSA, SCREENING 11/03/2024 CMP (COMP MET BRICENO) w/eGFR CKD-EPI 2024 Insurance Providers Payer Name Payer Address Payer Phone Subscriber Number Group Number Insured Name Patient Relationship to Insured Coverage Start Date Coverage End Date [employer] [address] [place], [place] [id number] HannahVesna kayn Self - patient is the insured 2 Medications Administered Medication Instructions Date of Administration Dosage Notes Kenalog-40 380 mg80 mg with 1cc lidocaineKenalog-400480 mgwith 1cc of lidocaine Medical (General) History Medical History History ICD Code Over weight E66.3 Cellulitis of finger, left L03.012 Internal derangement of knee, right M23. 91 Cyst, epididymis N50.3 Bladder outlet obstruction N32.0 Hx of CABG Z95.1 Osteoarthritis M19.90 Adenocarcinoma of rectum C20 Hip pain M25.559 Benign hypertension I10 History of falling Z91.81 Hypertriglyceridemia E78.1 Other symptoms referable to back M53.80 Umbilical hernia K42.9 Lumbar radiculopathy, right M54.16 Hypercholesterolemia E78.00 Left ventricular hypertrophy I51.7 Mitral regurgitation I34.0 Sleep apnea G47.30 Atherosclerosis of alt[place] coronary arter y I25.10 Chronic ischemic heart disease I25.9 Carpal tunnel syndrome, bilateral G56.01 Angina pectoris I20.9 Carcinoma of sigmoid colon C18.7 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
--- OUTSIDE RECORDS SUMMARY | 2025-08-15 15:36 | XMS_ITS | Clinical Summary ---
Author Organization [employer] Address [id number] [address] [place] [address] Care Team Providers Care Weapons Officer [employer] Name Role Phone Bayron Ba MD Primary Care Provider [phone] Allergies Active AllergyReactionsCriticalityNoted DateCommentsLevofloxacinDizziness 04/17/2024 Medications MedicationSigDispense QuantityRefillsLast FilledStart DateEnd DateStatus tamsulosin (FLOMAX) 0.4 mg capsule Take 1 capsule (0.4 mg total) by mouth in the morning and at bedtime.Active lisinopriL (PRINIVIL,ZESTRIL) 10 mg tablet Take 1 tablet (10 mg total) by mouth in the morning.Active cetirizine (ZyrTEC) 10 MG chewable tablet Chew 1 tablet (10 mg total) and swallow in the morning.Active metoprolol tartrate (LOPRESSOR) 25 mg tablet Take 1 tablet (25 mg total) by mouth in the morning and 1 tablet (25 mg total) before bedtime.Active aspirin 81 mg Take 1 tablet (81 mg total) by mouth in the morning.Active icosapent ethyL (VASCEPA) 1 gram capsule Take 2 capsules (2 g total) by mouth in the morning and 2 capsules (2 g total) in the evening. Takewith meals.Active brimonidine (ALPHAGAN) 0.2 % ophthalmic solution Administer 1 drop to both eyes in the morning and at bedtime.Active netarsudiL (RHOPRESSA) 0.02 % drops Instill 1 drop to eye in the morning and at bedtime.Active dorzolamide-timoloL (COSOPT) 22.3-6.8 mg/mL ophthalmic solution Administer 1 drop to both eyes in the morning and 1 drop before bedtime.Active latanoprost (XALATAN) 0.005 % ophthalmic solution Administer 1 drop to the right eye nightly.Active atorvastatin (LIPITOR) 80 mg tablet Take 1 tablet (80 mg total) by mouth nightly.04/20/2024ctive Active Problems ProblemNoted DateDiagnosed DateCVA (cerebral vascular accident)04/18/2024lass 2 obesity due to excess calories with body mass index (BMI) of 37.0 to 37.9 in adult04/17/2024Stenosis of left vertebral mdynap8104/17/2024oronary qbsbvmfykmvlblyk88/23/2024erebrovascular accident (CVA) due to stenosis of left vertebral oxijmg6404/17/2024 Social History Tobacco UseTypesPacks/DayYears UsedDateSmoking Tobacco: NeverSmokeless Tobacco: Never Tobacco Cessation:Counseling Given: Not Answered Alcohol UseStandard Drinks/WeekCommentsNever0 (1 standard drink = 0.6 oz pure alcohol)[facility] UtilitiesAnswerDate RecordedIn the past 12 months has the [employer] [place], oil, or water [employer] threatened to shut off services in your home?No 04/17/2024RAPARE - TransportationAnswerDate RecordedIn the past 12 months, has lack of transportation kept you from medical appointments or from getting medications?No04/17/2024In the past 12 months, has lack of transportation kept you from meetings, work, or from getting things needed for daily living?No 04/17/2024Housing InstabilityAnswerDate RecordedAre you worried or concerned that in the next two months you may not have stable housing that you own, rent or stay in as a part of a household?No04/17/2024hildcareAnswerDate Recorded BrngbzunnYdrhmvf96/16/2019EmploymentAnswerDate RecordedEmploymentUnknown 03/10/2019Hunger ScreeningAnswerDate RecordedWithin the past 12 months we worried whether our food would run out before we got money to buy more.Never True04/17/2024Within the past 12 months the food we bought just didn't last and we didn't have money to get more.Never True4Purpose - LifeAnswerDate RecordedPurpose and direction in vnwvDtwjslo43/11/2021ex and Gender Information ValueDate RecordedSex Assigned at BirthNot on fileLegal JnkEbfp3603/10/2019 8:55 AM EDTGender IdentityNot on fileSexual OrientationNot on file Last Filed Vital Signs Vital SignReadingTime TakenCommentsBlood Rseyazql687/4930204/20/2024 11:46 AM EDT Pwhoz218004/20/2024 11:46 AM ZYIQxfsiuczmff96.4 ??C (97.6 ??F)04/20/2024 11:46 AM EDTRespiratory Dxzw670004/20/2024 11:46 AM EDTOxygen Kshfszqryp03%04/20/2024 11:46 AM EDTInhaled Oxygen Concentration--Wnmnjs55.4 kg (210 lb 6.4 oz)04/18/2024 12:23 AM VYINhkwsr867.5 cm (5' 2 )04/17/2024 11:27 AM EDTBody Mass Index38.48 04/17/2024 11:27 AM EDT Plan of Treatment Health MaintenanceDue DateLast DoneCommentsDepression Rzlyqeevl70/29/1955 DTaP,Tdap and Td Vaccines (1 - Tdap)1961Fall Risk Kxfmxzgju72/29/2008RSV ( or age 60+ yrs) (1 - 1-dose 75+ series)2017Tobacco Screening OVID-19 Vaccine ( season), 06/19/2021, 11/10/2020, Additional history existsInfluenza Ezniyui1604/26/2025 05/24/2022, 05/23/2021, 05/26/2020, Additional history existsZoster (Shingles) DpbxmoeWwdttbgqs08/10/2020, 06/03/2020 Goals GoalPatient Goal TypeAssociated ProblemsRecent ProgressPatient-Stated?Author Daily Laboy, BIGG Note: Evaluation of progress towards goal: Patient, and daughter all agree patient may benefit from usp services. Medical Devices ImplantedTypeAreaManufacturerDevice IdentifierShelf Expiration DateModel / Serial / LotLensLensOrthopedic ImplantOrthopedic ImplantDescription:right hip doneOrthopedic ImplantOrthopedic ImplantDescription:Left hip Insurance Advance Directives * Full Code (Latest Code Status on File) Date ActivatedDate InactivatedComments04/20/2024 8:39 AM04/20/2024 6:33 PM Care Teams Team MemberRelationshipSpecialtyStart DateEnd Date Bayron Ba MD [address] [place] [address] PCP - GeneralFamily Medicine04/17/24
--- OUTSIDE RECORDS SUMMARY | 2025-08-15 15:36 | XMS_ITS | Clinical Summary ---
Author Organization [facility] Address [address] [place] [address] Care Team Providers Care Automatic Lathe Setter Name Role Phone Bayron Ba MD Primary Care Provider Jerry Cheatham MD Unavailable Reno Valentin MD Unavailable [phone] Allergies No known active allergies Medications MedicationSigDispense QuantityRefillsLast FilledStart DateEnd DateStatus cetirizine (ZyrTEC) 10 mg chewable tablet Chew 10 mg in the morning.Active icosapent ethyL (Vascepa) 1 gram capsule Take 2 g by mouth with breakfast and with evening meal.Active latanoprost (Xalatan) 0.005 % ophthalmic solution Administer 1 drop into the right eye at bedtime.Active tamsulosin (Flomax) 0.4 mg 24 hr capsule Take 0.4 mg by mouth in the morning.Active dorzolamide-timolol (Cosopt) 22.3-6.8 mg/mL ophthalmic solution Administer 1 drop into both eyes two times daily.Active atorvastatin (Lipitor) 80 mg tablet Take 80 mg by mouth in the morning.Active carvedilol (Coreg) 6.25 mg tablet Indications:Essential hypertensionTake 1 tablet (6.25 mg) by mouth two times daily for 195 doses. 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 zwwccy3307/06/2024 Penile kcrrfgyilsl30/11/2024oronary artery disease involving seneca coronary artery of seneca heart without angina kudfibif21/11/2024 Social History Tobacco UseTypesPacks/DayYears UsedDateSmoking Tobacco: NeverSmokeless Tobacco: Never Tobacco Cessation:Counseling Given: Not Answered [facility] UtilitiesAnswerDate RecordedIn the past 12 months has the electric, gas, oil, or water company threatened to shut off services in your home?No07/09/2024 Humiliation, Afraid, Rape, and Kick questionnaireAnswerDate RecordedWithin the last year, have you been afraid of your partner or ex-partner?No07/09/2024 Emotionally AbusedNot on file07/09/2024hysically AbusedNot on file07/09/2024 Sexually AbusedNot on file07/09/2024Overall Financial Resource Strain (CARDIA) AnswerDate RecordedHow hard is it for you to pay for the very basics like food, housing, medical care, and heating?Not hard at all07/09/2024HQ-2AnswerDate RecordedPatient Health Questionnaire-2 Nclun91610/04/2023TransportationAnswerDate RecordedIn the past 12 months, has lack of transportation kept you from medical appointments or from getting medications?No07/09/2024Lack of Transportation (Non-Medical)Not on file07/09/2024Housing Stability Vital SignAnswerDate RecordedIn the last 12 months, was there a time when you were not able to pay the mortgage or rent on time?No07/09/2024Number of Times Moved in the Last Year Not on file07/09/2024t any time in the past 12 months, were you homeless or living in a detention (including now)?No07/09/2024Hunger Vital SignAnswerDate RecordedWithin the past 12 months, you worried that your food would run out before you got the money to buymore.Never true07/09/2024an Out of Food in the Last YearNot on file07/09/2024Sex and Gender InformationValueDate RecordedSex Assigned at WtsebEwco86/12/2024 8:12 AM ESTLegal QruMwws4302/21/2022 9:48 PM EDT Gender DyhbygctGyrz71/12/2024 8:12 AM ESTSexual OrientationDon't know07/07/2024 8:12 AM EST Last Filed Vital Signs Vital SignReadingTime TakenCommentsBlood Cytoipld297/6408/03/2024 9:11 AM EST Sdehv214708/03/2024 9:11 AM EEYOmdndsaqlwc99.6 ??C (97.9 ??F)08/03/2024 9:11 AM ESTRespiratory Ukfv982609/12/2023 12:57 PM ESTOxygen Oylbehuniy14%08/03/2024 9:11 AM ESTInhaled Oxygen Concentration--Vyrwoc92.4 kg (175 lb)08/03/2024 9:11 AM EST Dkitym615.5 cm (5' 2 )07/07/2024 4:30 AM ESTBody Mass Index32.01109/06/2023 4:30 AM EST Plan of Treatment Health MaintenanceDue DateLast DoneCommentsMedicare Annual Wellness (AWV) 3Depression Jbpeyafgl94/29/1955Adult Fhzmojz7009/23/1964Fall Risk Sjtbqxvbb97/29/2008COVID-19 Vaccine ( season)508/, 06/19/2021, 11/10/2020, Additional history existsInfluenza Vaccine (#1) 509/, 06/01/2021, 05/23/2021, Additional history exists Pneumococcal Vaccine: 50+ EwwloCcrhyvbws10/19/2017, 05/17/2016Zoster Vaccines Tohvdisvq75/10/2020, 06/03/2020HIB VaccinesAged OutNo longer eligible based on patient's age to complete this topicHPV VaccinesAged OutNo longer eligible based on patient's age to complete this topicIPV VaccinesAged OutNo longer eligible based on patient's age to complete this topicMeningococcal B VaccineAged OutNo longer eligible based on patient's age to complete this topicMeningococcal VaccineAged OutNo longer eligible based on patient's age to complete this topic Rotavirus VaccinesAged OutNo longer eligible based on patient's age to complete this topic Additional Health Concerns InfectionOnset DateLast OjvezplfxXYJH07 Insurance * Guarantor: Pradip Hannah TypeRelation to PatientDate of BirthPhoneBilling AddressPersonal/OgpfglLkfz59/29/1941 [address] [address] Advance Directives * Full Code (Latest Code Status on File) Date ActivatedDate SzsvpesjlioEktgenge98/11/2024 12:50 PM07/13/2024 6:26 PM NameRelationshipHealthcare Agent RelationshipCommunicationSelect Specialty Hospital [facility] Health Care Agent* Care Teams Team MemberRelationshipSpecialtyStart DateEnd Date Bayron Ba MD [address] [place] [address] PCP - Reijwmg29/12/24 Jerry Cheatham MD [address] [place] [address] Consulting ZuwlxxcjfOivedwj59/12/24 Reno Valentin MD [facility] [address] [place] [address] [place] [address] Tiuoilk49/18/24
--- OUTSIDE RECORDS SUMMARY | 2025-08-15 15:36 | XMS_ITS | Clinical Summary ---
Author Organization [facility] Address [address] [place] [address] Care Team Providers Care Block Feeder Name Role Phone Bayron Ba MD Primary Care Provider [phone] Allergies No known active allergies Medications MedicationSigDispense QuantityRefillsLast FilledStart DateEnd DateStatus aspirin, enteric coated (ADULT LOW DOSE ASPIRIN) 81 mg EC tablet Take 1 tablet by mouth once daily.ctive atorvastatin (LIPITOR) 40 mg tablet Take 1 tablet by mouth once daily.ctive lisinopril 10 mg tablet Take 1 tablet by mouth once daily.ctive metoprolol tartrate, short acting, 25 mg tablet Take 1 tablet by mouth twice daily.ctive COMBIGAN 0.2-0.5 % Drop 11/18/2012ctive LUMIGAN 0.01 % Drop 10/30/2012ctive VASCEPA 1 gram cap 2 capsules twice daily.11/08/2014ctive dorzolamide (TRUSOPT) 2 % ophthalmic solution 10/13/2015Active latanoprost (XALATAN) 0.005 % ophthalmic solution 11/27/2015Active meloxicam (MOBIC) 15 mg tablet 11/14/2015Active oxyCODONE-acetaminophen (PERCOCET) 5-325 mg tablet Take 1 tablet by mouth every 6 hours as needed.Active RHOPRESSA 0.02 % drop Active prednisoLONE acetate (PRED FORTE, ECONOPRED PLUS) 1 % ophthalmic suspension INSTILL 1 DROP INTO THE LEFT EYE 4 TIMES A DAY BEGINNING THE DAY OF SURGERY0 09/22/2018Active Active Problems ProblemNoted DateDiagnosed DateRectal cancer Overview (12/09/2012): Stage II T2N0M0 Coronary arteriosclerosis Family History Medical HistoryRelationCommentsColon CancerBrother 2Colon CancerFatherRelation StatusCommentsBrother 1AliveBrother 2FatherDeceasedMotherDeceasedSisterAlive Social History Tobacco UseTypesPacks/DayYears UsedDateSmoking Tobacco: NeverSmokeless Tobacco: NeverAlcohol UseStandard Drinks/WeekCommentsNo0 (1 standard drink = 0.6 oz pure alcohol)PHQ-2AnswerDate RecordedPHQ-2 cafkk970Area Deprivation Index AnswerDate RecordedNational Score (1-100), lower number is lower riskNot on file 07/31/2020State Score (1-10), lower number is lower riskNot on file07/31/2020 Data from: https://www.neighborhoodatlas.medicine.[facility].edu/. Last address used for calculationNot on file07/31/2020Sex and Gender InformationValueDate Recorded Sex Assigned at BirthNot on fileLegal OgdEazo01/02/2012 10:15 AM ESTGender IdentityNot on fileSexual OrientationNot on file Last Filed Vital Signs Vital SignReadingTime TakenCommentsBlood Jjgazkjj724/7004 11:35 AM EDT Uefum778111/27/2018 11:35 AM BKFAzagnijtjjl48.4 ??C (97.5 ??F)11/27/2018 11:35 AM EDTRespiratory Dpwy8105 11:35 AM EDTOxygen Lkmcjqvdqv59%11/27/2018 11:35 AM EDTInhaled Oxygen Concentration--Axcaiq165.1 kg (220 lb 9.6 oz)11/27/2018 11:35 AM FRXHxcbhs545.8 cm (5' 2.52 )11/27/2018 11:35 AM EDTBody Mass Index39.68 11/27/2018 11:35 AM EDT Plan of Treatment Health MaintenanceDue DateLast DoneCommentsAnxiety Aozrjjksd54/29/1961Depression Tvexlunwm71/29/1961DTaP,Tdap,Td Vaccine (1 - Tdap)2Pneumococcal Vaccine: 50+ (1 of 1 - PCV)1992Shingrix Vaccine (1 of 2)1992Diabetes Pjcydrdnj56RSV Vaccine (1 - 1-dose 75+ series)2017 Advance Directive Jfiniswumi43/01/2025ovid-19 Vaccine (1 - 2024-26 season) 2025Influenza Vaccine (#1)2025 Procedures Procedure NamePriorityDate/TimeAssociated DiagnosisCommentsBASIC METABOLIC PANEL Cpmrvoz1012/04/2013 11:20 AM EDT from Last 3 Months or Most Recently Relevant to Health Maintenance Results * (ABNORMAL) BASIC METABOLIC PNL (12/04/2013 11:20 AM EDT)ComponentValueRef RangeTest MethodAnalysis TimePerformed AtPathologist LsfgyndaoHxxuqsc5319 - 100 mg/dLDAY[facility] YJJDDYKDEOUBU77(H)10 - 25 mg/dLDAYTON [facility]ILDR[facility]'S [facility] LABORATORYCreatinine1.060.70 - 1.40 mg/dLDAYTON CHILDREN'S [facility] LABORATORY Iakequ705779 - 146 mmol/LCPREMIER HEALTH ATR[facility] MAIN LABORATORYPotassium4.33.5 - 5.0 mmol/LCPREMIER HEALTH ATRI[facility] MAIN HCXZJSTWURWyhjrycz42644 - 110 mmol/LCPREMIER HEALTH [facility]TR[facility] MAIN VSNDMKYDPMLX79628 - 32 mmol/LCPREMIER HEALTH ATR[facility] MAIN LABORATORYAnion Sps063 - 15 mmol/LCMERCY HOSPITAL LABORATORYCalcium9.78.5 - 10.5 mg/dL [facility] LABORATORYeGFR->60DAY[facility] LABORATORYeGFR-All Other Races>60.[facility] LABORATORYComment: eGFR (Estimated GFR) Units of measure: mL/min/1.73 meters squared eGFR is derived from the reexpressed MDRD Study equation using the following parameters: serum creatinine, age, gender and race. The creatinine assay has been calibrated to be traceable to IDMS. An eGFR <60 mL/min/1.73m2 for >3 months is consistent with chronic kidney disease. Refer to KDOQI guidelines for clinical interpretation. Specimen (Source)Anatomical Location / LateralityCollection Method / Volume Collection TimeReceived Time12/04/2013 11:20 AM EDT12/04/2013 2:24 PM EDT Narrative Authorizing ProviderResult TypeResult StatusTimothy J Adamowicz DOLABORATORY Final ResultPerforming OrganizationAddressCity/State/ZIP CodePhone Number [facility] [address] [place] [address] from Last 3 Months or Most Recently Relevant to Health Maintenance Insurance Care Teams Team MemberRelationshipSpecialtyStart DateEnd Bayron Ba MD PCP - GeneralFamily Medicine12/13/11
--- OUTSIDE RECORDS SUMMARY | 2025-08-15 15:36 | XMS_ITS | Clinical Summary ---
Author Organization [facility] Address [address] [place] [address] Care Team Providers Care Records And Tape Recordings Engineer Name Role Phone Bayron Ba MD Primary Care Provider [phone] Social History Tobacco UseTypesPacks/DayYears UsedDateSmoking Tobacco: Never AssessedSex and Gender InformationValueDate RecordedSex Assigned at BirthNot on fileLegal Sex Male11/07/2022 7:07 PM EDTGender IdentityNot on fileSexual OrientationNot on file Plan of Treatment Not on file Insurance Care Teams Team MemberRelationshipSpecialtyStart DateEnd Date Bayron Ba MD PCP - GeneralFamily Gchudpgq09/29/24
--- OUTSIDE RECORDS SUMMARY | 2025-08-15 15:37 | XMS_ITS | Patient Health Record ---
Author Organization [facility] Address [address] [place] [address] Care Team Providers Care Jewel Hole Driller Name Role Phone AndiBayron hurtado Primary Care Provider Tremayne Grove Unavailable [phone] Talat, Kara Unavailable [phone] Reason For Referral No Information Social History Tobacco Use: Social History Observation Description Date Details (start date - stop date) Never Smoker NA - NA Smoking History Question Answer Notes Smoking Status NonSmoker AUDIT-C (Standard) Question Answer Notes Did you have a drink containing alcohol in the p ast year? No Gricia8OtnwfxpnefnemaYlxhfnhcYrxoycz Control (Standard) Question Answer Notes Tobacco use: Nonsmoker Problems Problem Type SNOMED Code ICD Code Onset Dates Problem Status W/U Status Risk Notes Problem Osteoarthritis of knee (72541559 7) Primary osteoarthritis of right knee (M17.11) Activeconfirmed Vital Signs Height 5ft2in in 11/16/2024 Qmzatn315 lbs5BMI36.58011/16/2024 Encounters Encounter Location Date Provider Diagnosis [facility] [address] [place] [address] 11/16/2024 Sherin Gilliland Primary osteoarthrit is of right knee M17.11 Assessments Encounter Date Diagnosis (ICD Code) Assessment Notes Treatment Notes Treatment Clinical Notes Section Notes 11/16/2024 Primary osteoarthritis of right knee (ICD-10 - M17.11) 11/16/2024OtherAt this point, we discussed treatment options and alternatives with the patient. With the patients history of previous intra-articular corticosteroid injection giving some symptom relief, I did recommend we consider a repeat injection. After discussion of risks and benefits with the patient, they did wish to proceed with the injection. Injection was performed and the patient tolerated it well. Cheli see the patient back as needed. Plan Of Treatment No Information Insurance Providers Payer Name Payer Address Payer Phone Subscriber Number Group Number Insured Name Patient Relationship to Insured Coverage Start Date Coverage End Date Medicare [employer] [address] [place] [phone] [id number] ROSE MARY RICHARDelf - patient is the insured Medications Administered Medication Instructions Date of Administration Dosage Notes BUPIVACAINE hIYWWOCYVJLVW55/24/20252 mLDepo-Nwrqfg43 mLDepo-Medrol sDaqpirklrg90/01/20242 qVpnxgvxddu76/24/20252 mL Medical (General) History Medical History History ICD Code stroke 09/2023 left paralysis CPAP Machine:Heart problems:High Blood PressureAnxietySleep apnea
[2025-08-15 16:22] LABS: Hematocrit 45.2 % (42.0-54.0); Hemoglobin 15.6 g/dL (14.0-18.0); Immature Granulocytes Abs Auto 0.03 10^3/uL (0.00-0.03); Immature Granulocytes Pct Auto 0.4 % (0.0-0.5); Lymphocytes Absolute Auto 1.8 10^3/uL (1.2-3.8); Mean Corpuscular HGB Conc 34.5 g/dL (29.9-35.2); Mean Corpuscular Hemoglobin 31.2 pg (25.9-34.0); Mean Corpuscular Volume 90.4 fL (80.0-94.0); Platelet Count 189 10^3/uL (150-450); Red Blood Count 5.00 10^6/uL (4.70-6.10); White Blood Count 7.8 10^3/uL (4.0-11.0)
[2025-08-15 16:35] LABS: Anion Gap 15.5; Blood Urea Nitrogen 24.0 mg/dL (7.0-18.0); Calcium 9.0 mg/dL (8.5-10.1); Carbon Dioxide 25.3 mmol/L (21.0-32.0); Chloride 105 mmol/L (98-107); Estimated GFR (African America >60 (>=60 mL/min/1.73m^2); Estimated GFR (Non-African Ame >60 (>=60 mL/min/1.73m^2); Glucose 123 mg/dL (74-106); Potassium 3.8 mmol/L (3.5-5.1); Sodium 142 mmol/L (136-145)
[2025-08-15 17:03] LABS: Glucose Urine UA NEGATIVE (NEGATIVE)
[2025-08-15] MEDS: MORPHINE SULFATE 4 MG/ML VIAL IV (17:14)
[2025-08-15 17:30] VITALS: O2SAT 98
[2025-08-15 17:31] VITALS: BP 172/78
--- NOTE | 2025-08-15 19:11 | PC.NURSE ---
i walked into this patient to find this patient lying supine on the bed resting, this patient voices no more lower abdomen pain and is able to sleep a little now this patient voices no other concerns, needs and shows no signs of distress. this patient indwelling More draining well
[2025-08-15 20:01] VITALS: BP 129/72; PULSE 77; O2SAT 95
[2025-08-15 20:02] VITALS: TEMP 36.7
[2025-08-15] MEDS: NITROFURANTOIN MONOHYD/MAC-CRST 100 MG CAPSULE PO (20:04)
--- NOTE | 2025-08-15 20:44 | PC.NURSE ---
i gave this patient verbal and written discharge orders along with 1 Rx and this patient voices yes to understanding these. at time of discharge this patient, , and son voices no concerns, needs and shows no signs of distress
== END 2025-08-15 20:43 | disposition home or self-care (01) ==
PROVIDERS: Emergency Medicine; Emergency Provider Internal Medicine; PCP Family Medicine
DX: T83.098A Other mechanical complication of other urinary catheter, initial encounter (principal); N13.6 Pyonephrosis; R10.30 Lower abdominal pain, unspecified
CPT/HCPCS: 36415; 74177; 80048; 81001; 81003; 85025; 96374; 99285; J2270; Q9967

== ENCOUNTER 2025-08-17 02:06 | Emergency (ER) | payer MEDICARE, SELFPAY ==
[2025-08-17] VITALS (21 sets, daily range): BP systolic 113–134; BP diastolic 63–72; PULSE 57–78; TEMP 37.1; O2SAT 90–96; BMI 38.4
--- NOTE | 2025-08-17 02:18 | ED.FALL1 ---
HPI HPI - Fall General Chief Complaint: Fall Stated Complaint: Fall Time Seen by Provider: 08/17/25 02:11 Source: patient Mode of arrival: ambulance History of Present Illness HPI Narrative: 84-year-old male with a history of a stroke with right-sided weakness and chronic right sided knee pain who also has an indwelling More catheter and was seen here yesterday and diagnosed with hydronephrosis likely related to obstruction and catheter misplacement is brought to the emergency department by EMS from home. The patient states that he spent most of the day in his chair today. He got up this to go to the kitchen, bathroom and his bedroom and when going into his bedroom his rollator got away from him and he fell forward onto his knees. He has abrasions over both knees. He states he has chronic right knee pain and needs a knee replacement surgery. He had his More catheter replaced yesterday and was also diagnosed with a UTI and was given a prescription for Macrobid at that time. He states he took 1 dose of the Macrobid. The More catheter has been working fairly well. He denies striking his head when he fell. He has no neck or back pain. He has no new or worsening neurologic symptoms. Related Data Home Medications ?Medication ?Instructions ?Recorded ?Confirmed aspirin 81 mg tablet,delayed 81 mg PO DAILY 05/20/23 07/06/24 release atorvastatin 40 mg tablet 80 mg PO DAILY 05/20/23 10/28/24 dorzolamide 22.3 mg-timolol 6.8 1 drp ophthalmic (eye) BID 05/20/23 07/06/24 mg/mL eye drops icosapent ethyl 1 gram capsule 2 g PO BID 05/20/23 07/06/24 latanoprost 0.005 % eye drops 1 drp ophthalmic (eye) .QHS 05/20/23 07/06/24 lisinopril 10 mg tablet 10 mg PO DAILY 05/20/23 07/06/24 netarsudil 0.02 % eye drops 1 drp ophthalmic (eye) DAILY 05/20/23 07/06/24 (Rhopressa) brimonidine 0.2 % eye drops 1 drp ophthalmic (eye) BID 03/02/24 07/06/24 cetirizine 10 mg tablet 10 mg PO DAILY 03/02/24 04/07/24 clopidogrel 75 mg tablet 75 mg PO DAILY 07/06/24 07/06/24 metoprolol tartrate 25 mg tablet 25 mg PO BID 07/06/24 07/06/24 carvedilol 6.25 mg tablet 6.25 mg PO BID 10/28/24 10/28/24 Previous Rx's ?Medication ?Instructions ?Recorded cephalexin 500 mg capsule 500 mg PO Q8H 7 days #21 caps 12/22/24 Allergies Allergy/AdvReac Type Severity Reaction Status Date / Time levofloxacin ([facility]) AdvReac UPSET Verified 08/17/25 02:13 STOMACH Opioid HPI Opioid Management Most Recent Pain and Opioid Data: Last Pain Scale 10 07/06/24, 07:16 Last MAR Pain Assessment 08/15/25, 17:14 Review of Systems ROS Status of ROS 10 or more systems reviewed and unremarkable except as noted in history and below [facility] Medical History (Updated 08/17/25 @ 06:23 by Breann Cherry MD) [place] (hard of hearing) ?H91.90 - Unspecified hearing loss, unspecified ear (ICD-10) Lumbar stenosis with neurogenic claudication ?M48.062 - Spinal stenosis, lumbar region with neurogenic claudication (ICD-10) Lumbar spondylosis ?M47.816 - Spondylosis without myelopathy or radiculopathy, lumbar region (ICD-10) Myofascial pain ?M79.18 - Myalgia, other site (ICD-10) Acute UTI ?N39.0 - Urinary tract infection, site not specified (ICD-10) Acute urinary retention ?R33.8 - Other retention of urine (ICD-10) Acute urinary retention ?R33.8 - Other retention of urine (ICD-10) BPH (benign prostatic hyperplasia) ?N40.0 - Benign prostatic hyperplasia without lower urinary tract symptoms (ICD-10) Urethral stricture ?N35.919 - Unspecified urethral stricture, male, unspecified site (ICD-10) Gross hematuria ?R31.0 - Gross hematuria (ICD-10) Sleep apnea ?G47.30 - Sleep apnea, unspecified (ICD-10) High cholesterol ?E78.00 - Pure hypercholesterolemia, unspecified (ICD-10) Heart disease ?I51.9 - Heart disease, unspecified (ICD-10) Hypertension ?I10 - Essential (primary) hypertension (ICD-10) Glaucoma ?H40.9 - Unspecified glaucoma (ICD-10) Colon cancer ?C18.9 - Malignant neoplasm of colon, unspecified (ICD-10) Inability to walk ?R26.2 - Difficulty in walking, not elsewhere classified (ICD-10) Chronic back pain ?M54.9 - Dorsalgia, unspecified (ICD-10) ?G89.29 - Other chronic pain (ICD-10) Surgical History History of cataract extraction ?Z98.49 - Cataract extraction status, unspecified eye (ICD-10) S/P tonsillectomy and adenoidectomy ?Z90.89 - Acquired absence of other organs (ICD-10) History of hydrocelectomy ?Z98.890 - Other specified postprocedural states (ICD-10) Detached retina, left ?H33.22 - Serous retinal detachment, left eye (ICD-10) History of colectomy ?Z90.49 - Acquired absence of other specified parts of digestive tract (ICD-10) 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 Smoking status: Never smoker Non-prescribed substance use: denies use Previous occupational history: retired Highest level of school completed/degree received: Bachelor's degree Are you now , , , , never or living with a partner: Little interest or pleasure in doing things: not at all Feeling down, depressed, or hopeless: not at all Feel stressed/tense/nervous/anxious/difficulty sleeping: not at all Do you think of yourself as: straight/heterosexual Gender Identity: male Exam Narrative Exam Narrative: Vital signs and Nursing Notes reviewed: Is afebrile, he has a normal at 76, blood pressure is stable at 134/69, he is hypoxic with pulse ox of 90% on room air General: Overweight male, he is awake, alert, oriented, no acute distress, lying comfortably on the stretcher-15 HEENT: Normocephalic atraumatic, mucous membranes are moist and pink, eyes are clear, normal conjunctiva, vision is grossly intact, Neck: Supple, no bony vertebral tenderness or step-off Chest: Lungs are diffusely diminished with no rhonchi or rales appreciated CVS: Regular rate and rhythm S1-S2, no murmurs rubs or gallops, pulses are brisk and equal bilaterally ABD: Diastases when the patient sits up, otherwise soft, nondistended, nontender, no rebound guarding or rigidity, bowel sounds are normal, no pulsatile masses appreciated : Catheter in place in the urethral meatus, draining clear yellow urine Extremities: Moving all extremities, there is tenderness with abrasions to both knees, patient is able to flex the left knee but has decreased range of motion of the right knee-this is normal for him Skin: Normal in appearance without rash,pallor, petechiae or purpura Neuro: No focal deficits; clear, tape keller 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 strength is intact but somewhat diminished on the right compared to the left, no facial droop Constitutional Vital Signs, click to edit/add: Last Vital Signs Temp 98.8 F 08/17/25 02:09 Pulse 59 L 08/17/25 04:40 Resp 20 08/17/25 04:40 BP 120/64 08/17/25 04:30 Pulse Ox 94 L 08/17/25 04:40 O2 Del Method Room Air 08/17/25 02:09 Course Vital Signs Vital signs: Vital Signs Temperature 98.8 F 08/17/25 02:09 Pulse Rate 76 08/17/25 02:09 Respiratory Rate 20 08/17/25 02:09 Blood Pressure 134/69 08/17/25 02:09 Pulse Oximetry 90 L 08/17/25 02:09 Oxygen Delivery Method Room Air 08/17/25 02:09 Temperature 98.8 F 08/17/25 02:09 Pulse Rate 59 L 08/17/25 04:40 Respiratory Rate 20 08/17/25 04:40 Blood Pressure 120/64 08/17/25 04:30 Pulse Oximetry 94 L 08/17/25 04:40 Oxygen Delivery Method Room Air 08/17/25 02:09 MDM - Fall MDM Narrative Medical decision making narrative: 84-year-old male who was seen here yesterday for lower abdominal pain and had a CT scan done that showed cholelithiasis with mild bilateral hydronephrosis and hydroureter without obstructing stone or obvious mass who has an indwelling More catheter after having a stroke in the past and had his catheter replaced yesterday and was diagnosed with a UTI after having positive nitrites in the urine was brought to the emergency department by EMS from home. The patient states he was walking around in his house and his rollator went out from under him causing him to fall. He landed on his knees bilaterally and has superficial contusions to both knees. He does have a history of a stroke with right sided weakness. To the patient's daughter they called EMS for a lift assist but the family was then told that he needed to come to the emergency department because he was not able to ambulate independently. He does not have any acute focal neurologic deficits upon arrival. He denies any chest pain or shortness of breath. EKG and upon arrival is a sinus rhythm at 67 bpm with a sinus arrhythmia and no acute findings. An IV was and he was given IV fluids and Tylenol for his knee pain. Additionally he was given 1 g of IV Rocephin for the UTI. Xrays of the knees and a chest x-ray was ordered. Chest x-ray does not show any acute pulmonary infiltrate with a normal mediastinum and cardiac borders, bilateral knee x-rays do not show any acute fracture but showed degenerative changes. Labs were ordered and are reviewed. He has a normal white count and hemoglobin. Electrolytes are normal. Function tests are also normal. Lactic acid is normal at 1.8. Troponin is normal. Urine is positive for nitrites which it typically is as he has an indwelling More catheter, it also shows 20-50 white blood cells per high-power field. Urine culture is pending. He was feeling much better and was given a trial of assisted ambulation with a walker and is not having any difficulty walking at this time. His daughter states that he was not able to do that yesterday and the patient states that his legs just gave way underneath him earlier in the evening before coming in. Until the patient's urine culture is back he will be given a prescription for doxycycline which should cover MRSA if that is what grows out of his urine. Medical Records Attestation: I reviewed the patient's medical records. Lab Data Attestation: I reviewed the patient's lab results. Labs: Lab Results 08/17/25 08/17/25 Range/Units 02:45 04:22 WBC 10.3 (4.0-11.0) 10^3/uL RBC 4.79 (4.70-6.10) 10^6/uL Hgb 15.0 (14.0-18.0) g/dL Hct 44.2 (42.0-54.0) % MCV 92.3 (80.0-94.0) fL MCH 31.3 (25.9-34.0) pg MCHC 33.9 (29.9-35.2) g/dL RDW 13.2 (11.0-15.0) % Plt Count 166 (150-450) 10^3/uL MPV 10.3 (9.5-13.5) fL Neut % (Auto) 78.5 H (43.0-75.0) % Lymph % (Auto) 11.2 L (20.5-60.0) % [place] % (Auto) 8.0 (1.7-12.0) % Eos % (Auto) 0.6 L (0.9-7.0) % Baso % (Auto) 0.4 (0.2-2.0) % Neut # (Auto) 8.1 H (1.4-6.5) 10^3/uL Lymph # (Auto) 1.2 (1.2-3.8) 10^3/uL [place] # (Auto) 0.8 (0.3-0.8) 10^3/uL Eos # (Auto) 0.1 (0.0-0.7) 10^3/uL Baso # (Auto) 0.0 (0.0-0.1) 10^3/uL Abs Immat Gran (auto) 0.13 H (0.00-0.03) 10^3/uL Imm/Tot Granulo (auto) 1.3 H (0.0-0.5) % Sodium 138 (136-145) mmol/L Potassium 3.7 (3.5-5.1) mmol/L Chloride 103 (98-107) mmol/L Carbon Dioxide 27.0 (21.0-32.0) mmol/L Anion Gap 11.7 BUN 24.0 H (7.0-18.0) mg/dL Creatinine 1.25 (0.70-1.30) mg/dL Est GFR ( Amer) >60 (>=60 mL/min/1.73m^2) Est GFR (Non-Af Amer) 55 L (>=60 mL/min/1.73m^2) BUN/Creatinine Ratio 19.2 Glucose 128 H (74-106) mg/dL Lactate 1.8 (0.4-2.0) mmol/L Calcium 9.1 (8.5-10.1) mg/dL Total Bilirubin 1.3 H (0.2-1.0) mg/dL AST 17 (15-37) U/L ALT 18 (16-63) U/L Alkaline Phosphatase 95 (46-116) U/L Troponin I High Sens 14.3 (4.0-76.1) pg/mL Total Protein 7.4 (6.4-8.2) g/dL Albumin 3.5 (3.4-5.0) g/dL Globulin 3.9 g/dL Albumin/Globulin Ratio 0.9 Urine Color Dk yellow (YELLOW) Urine Clarity Slightly cloudy A (CLEAR) Urine pH 8.5 (5.0-9.0) Ur Specific [place] 1.015 (1.005-1.025) Urine Protein >=300 A (NEG/TRACE) mg/dL Urine Glucose (UA) Negative (NEGATIVE) mg/dL Urine Ketones 15 A (NEGATIVE) mg/dL Urine Occult Blood Moderate A (NEGATIVE) Urine Nitrite Positive A (NEGATIVE) Urine Bilirubin Negative (NEGATIVE) Urine Urobilinogen 0.2 (0.2-1.0) EU/dL Ur Leukocyte Esterase Moderate A (NEGATIVE) Urine RBC 10-20 A (0-2) #/HPF Urine WBC 20-50 A (NONE SEEN) #/HPF Ur Squamous Epith Cells Few A (NONE/RARE) #/LPF Urine Crystals Seen A (None Seen) #/HPF Triple Phos Crystals Moderate Urine Bacteria Large A (NONE SEEN) #/HPF Urine Casts None seen (NONE SEEN) #/LPF Urine Mucus Trace A (NONE SEEN) Ur Culture Indicated? Yes[place] [place] ECG Data Attestation: I personally reviewed and interpreted this ECG as follows: (Sinus rhythm at 67 bpm, normal axis, sinus arrhythmia noted, no acute ST segment elevation or T wave inversion Q-wave noted in lead III) Discharge Plan Discharge Chief Complaint: Fall Clinical Impression: Fall from standing, Knee contusion, Generalized weakness, Urinary tract infection Patient Disposition: Home, Self-Care Time of Disposition Decision: 06:23 Condition: Good Prescriptions / Home Meds: No Action atorvastatin 40 mg tablet 80 mg PO DAILY dorzolamide-timolol 22.3-6.8 mg/mL drops 1 drp OPHTHALMIC (EYE) BID Rx Instructions: BOTH EYES icosapent ethyl 1 gram capsule 2 g PO BID latanoprost 0.005 % drops 1 drp OPHTHALMIC (EYE) .QHS Rx Instructions: RIGHT EYE lisinopril 10 mg tablet 10 mg PO DAILY Rhopressa 0.02 % drops 1 drp OPHTHALMIC (EYE) DAILY Rx Instructions: RIGHT EYE aspirin 81 mg tablet,delayed release (DR/EC) 81 mg PO DAILY cetirizine 10 mg tablet 10 mg PO DAILY brimonidine 0.2 % drops 1 drp OPHTHALMIC (EYE) BID carvedilol 6.25 mg tablet 6.25 mg PO BID Rx Instructions: must administer with a meal/food cephalexin 500 mg capsule 500 mg PO Q8H 7 Days Qty: 21 0RF clopidogrel 75 mg tablet 75 mg PO DAILY metoprolol tartrate 25 mg tablet 25 mg PO BID Print Language: Anguillan Instructions: Contusion in Adults (ED), Fall Prevention (ED), Catheter-associated Urinary Tract Infection (ED) Referrals: Bayron Ba MD [Primary Care Provider, Family Practice] - 1 week
--- NOTE | 2025-08-17 02:24 | XR_ITS ---
The [address] [address] Patient Name: KYLER RICHARD MRN: [id number] date: 1940 Sex: M Assigned Patient Location: ER Current Patient Location: Accession/Order Number: [id number] Exam Date: 08/17/2025 02:40 Report Date: 08/17/2025 08:58 At the request of: CAYDEN MALLOY MD Procedure: XR knee NAV 2V BILATERAL KNEES - 2 views each COMPARISON: Right knee 05/22/2024 CLINICAL DATA: Patient fell onto both knees and has pain, greater on the right AP and lateral views were obtained. No acute fractures or dislocation are noted. There is narrowing at the medial tibiofemoral joint compartments, right worse than left. Tricompartment marginal spurring is also seen, greater on the right. No significant knee effusion is seen. No focal soft tissue swelling is noted. XR/XR knee NAV 2V IMPRESSION: DEGENERATIVE CHANGES, RIGHT GREATER THAN LEFT. NO ACUTE BONY INJURY. Impression dictated by: Azul Villanueva M.D. 08/17/2025 8:58 AM Dictation Location: [place] [address] Electronically authenticated by: [id number] Y Date: 08/17/2025 08:58
--- NOTE | 2025-08-17 02:24 | ECG_ITS ---
The [facility] Test Date: 2025-08-17 Pat Name: KYLER RICHARD Department: Room: - Gender: Male Guard Immigration: : 1940 Requested By: ELIANA VELAZQUEZ Order Number: [id number] Reading MD: SHERRY TOUSSAINT M.D. Measurements Intervals Bradley Rate: 67 P: 21 AK: 182 QRS: 37 QRSD: 100 T: 15 QT: 382 QTc: 397 Interpretive Statements 1100 Sinus rhythm 1108 Marked sinus arrhythmia 3633 Inferior myocardial infarction, probably old 9150 abnormal ECG Compared to ECG 06/13/2021 15:14:40 T-wave abnormality no longer present Myocardial infarct finding still present Electronically Signed On 08-18-2025 11:31:15 EST by SHERRY TOUSSAINT M.D.
--- OUTSIDE RECORDS SUMMARY | 2025-08-17 02:32 | XMS_ITS | Clinical Summary ---
Author Organization [employer] [facility] tem Address [id number] [address] [place] [address] Care Team Providers Care Plate Finisher Name Role Phone Bayron Ba MD Primary Care Provider [phone] Allergies Active AllergyReactionsCriticalityNoted DateCommentsLevofloxacinDizziness 04/17/2024 Medications MedicationSigDispense [...] to 37.9 in adult04/17/2024Stenosis of left vertebral aubljt7704/17/2024oronary swwqqfnsbiwtowxq71/23/2024erebrovascular accident (CVA) due to stenosis of left vertebral aptluf8104/17/2024 Social History Tobacco UseTypesPacks/DayYears UsedDateSmoking Tobacco: NeverSmokeless Tobacco: Never Tobacco Cessation:Counseling Given: Not Answered Alcohol UseStandard Drinks/WeekCommentsNever0 (1 standard drink = 0.6 oz pure alcohol)[facility] UtilitiesAnswerDate RecordedIn the past 12 months has the [employer], [employer], oil, or water [employer] threatened to shut off services in your [...] as a part of a household?No04/17/2024hildcareAnswerDate Recorded SkojtyaxgNbzidew25/16/2019EmploymentAnswerDate RecordedEmploymentUnknown 03/10/2019Hunger ScreeningAnswerDate RecordedWithin the past 12 months we worried whether our food would run out before we got money to buy more.Never True04/17/2024Within the past 12 months the food we bought just didn't last and we didn't have money to get more.Never True4Purpose - LifeAnswerDate RecordedPurpose and direction in jkthByjsral51/11/2021ex and Gender Information ValueDate RecordedSex Assigned at BirthNot on fileLegal LqjWnoo9403/10/2019 8:55 AM EDTGender IdentityNot on fileSexual OrientationNot on file Last Filed Vital Signs Vital SignReadingTime TakenCommentsBlood Tnvezart941/4826104/20/2024 11:46 AM EDT Lqpjk032604/20/2024 11:46 AM HYTGlgatrfgqkr79.4 ??C (97.6 ??F)04/20/2024 11:46 AM EDTRespiratory Ebru149704/20/2024 11:46 AM EDTOxygen Arfzncvssf86%04/20/2024 11:46 AM EDTInhaled Oxygen Concentration--Odelnw30.4 kg (210 lb 6.4 oz)04/18/2024 12:23 AM CSWIeekco979.5 cm (5' 2 )04/17/2024 11:27 AM EDTBody Mass Index38.48 04/17/2024 11:27 AM EDT Plan of Treatment Health MaintenanceDue DateLast DoneCommentsDepression Vunlswamc46/29/1955 DTaP,Tdap and Td Vaccines (1 - Tdap)1961Fall Risk Bqjbrqyml19/29/2008RSV ( or age 60+ yrs) (1 - 1-dose 75+ series)2017Tobacco Screening OVID-19 Vaccine ( season), 06/19/2021, 11/10/2020, Additional history existsInfluenza Wnwlmjx3404/26/2025 05/24/2022, 05/23/2021, 05/26/2020, Additional history existsZoster (Shingles) IuwlsrrJrlpzkfcy83/10/2020, 06/03/2020 Goals GoalPatient Goal TypeAssociated ProblemsRecent ProgressPatient-Stated?Author Daily Laboy, BIGG Note: Evaluation of progress towards goal: Patient, and daughter all agree patient may benefit from fci services. Medical Devices ImplantedTypeAreaManufacturerDevice IdentifierShelf Expiration DateModel / Serial / LotLensLensOrthopedic ImplantOrthopedic ImplantDescription:right hip doneOrthopedic ImplantOrthopedic ImplantDescription:Left hip Insurance Advance Directives * Full Code (Latest Code Status on File) Date ActivatedDate InactivatedComments04/20/2024 8:39 AM04/20/2024 6:33 PM Care Teams Team MemberRelationshipSpecialtyStart DateEnd Date Bayron Ba MD [address] [place] [address] PCP - GeneralFamily Medicine04/17/24
--- OUTSIDE RECORDS SUMMARY | 2025-08-17 02:32 | XMS_ITS | Clinical Summary ---
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
--- OUTSIDE RECORDS SUMMARY | 2025-08-17 02:32 | XMS_ITS | Clinical Summary ---
Author Organization The [facility] Address [address] [place] [address] Care Team Providers Care Certified Optician Name Role Phone Bayron Ba MD Primary Care Provider [phone] Jerry Cheatham MD Unavailable Reno Valentin MD Unavailable [phone] Allergies No known active allergies Medications MedicationSigDispense [...] tablet 07/13/2024ctive Active Problems ProblemNoted DateDiagnosed DateMRSA mslmptwudl33/25/5461Dzjhcljsz39/11/2024 Cerebrovascular accident (CVA) due to occlusion of precerebral rupauq7307/06/2024 Penile nlwihqxmeis07/11/2024oronary artery disease involving [place] coronary artery of [place] heart without angina ypntqftz32/11/2024 Social History Tobacco UseTypesPacks/DayYears UsedDateSmoking Tobacco: NeverSmokeless Tobacco: Never Tobacco Cessation:Counseling Given: Not Answered [facility] UtilitiesAnswerDate RecordedIn the past 12 months [...] heating?Not hard at all07/09/2024HQ-2AnswerDate RecordedPatient Health Questionnaire-2 Tfoqz52810/04/2023TransportationAnswerDate RecordedIn the past 12 months, has lack [...] were you homeless or living in a senior care (including now)?No07/09/2024Hunger Vital SignAnswerDate RecordedWithin the past 12 months, you worried that your food would run out before you got the money to buymore.Never true07/09/2024an Out of Food in the Last YearNot on file07/09/2024Sex and Gender InformationValueDate RecordedSex Assigned at ElclvOpnk00/12/2024 8:12 AM ESTLegal OonQwec2902/21/2022 9:48 PM EDT Gender CmtwwdwzClcj53/12/2024 8:12 AM ESTSexual OrientationDon't know07/07/2024 8:12 AM EST Last Filed Vital Signs Vital SignReadingTime TakenCommentsBlood Opruwasn565/6408/03/2024 9:11 AM EST Hujwd994308/03/2024 9:11 AM GOUDylciwlwaxq58.6 ??C (97.9 ??F)08/03/2024 9:11 AM ESTRespiratory Oemv424909/12/2023 12:57 PM ESTOxygen Pmuhswqpfk14%08/03/2024 9:11 AM ESTInhaled Oxygen Concentration--Lctxtp53.4 kg (175 lb)08/03/2024 9:11 AM EST Okaaza594.5 cm (5' 2 )07/07/2024 4:30 AM ESTBody Mass Index32.01109/06/2023 4:30 AM EST Plan of Treatment Health MaintenanceDue DateLast DoneCommentsMedicare Annual Wellness (AWV) 3Depression Yktwofrhh76/29/1955Adult Pylogvo0509/23/1964Fall Risk Bquwnxwjw70/29/2008COVID-19 Vaccine ( season)508/, 06/19/2021, 11/10/2020, Additional history existsInfluenza Vaccine (#1) 509/, 06/01/2021, 05/23/2021, Additional history exists Pneumococcal Vaccine: 50+ OlczqHiqnuwlah14/19/2017, 05/17/2016Zoster Vaccines Bbkdkdvio97/10/2020, 06/03/2020HIB VaccinesAged OutNo longer eligible based on [...] this topic Additional Health Concerns InfectionOnset DateLast GseqsdoxdHKNC61 Insurance * Guarantor: Pradip Hannah TypeRelation to PatientDate of BirthPhoneBilling AddressPersonal/GpoplkRfbg69/29/1941 [address] [id number] Advance Directives * Full Code (Latest Code Status on File) Date ActivatedDate CufuzofppjxVowuluyv08/11/2024 12:50 PM07/13/2024 6:26 PM NameRelationshipHealthcare Agent RelationshipCommunicationCurahealth Heritage [facility] Health Care Agent* Care Teams Team MemberRelationshipSpecialtyStart DateEnd Date Bayron Ba MD [address] [facility] [place] [address] PCP - Uwllmjy25/12/24 Jerry Cheatham MD [address] [place] [address] Consulting IvznuvbjfFavvqlu07/12/24 Reno Valentin MD [facility] [address] [place] [address] [place] [address] Rielcfq38/18/24
--- OUTSIDE RECORDS SUMMARY | 2025-08-17 02:32 | XMS_ITS | Clinical Summary ---
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 Last address used for calculationNot on file07/31/2020Sex and Gender InformationValueDate Recorded Sex Assigned at BirthNot on fileLegal OjpXgzh99/02/2012 10:15 AM ESTGender IdentityNot on fileSexual OrientationNot on file Last Filed Vital Signs Vital SignReadingTime TakenCommentsBlood Oyljrqwb125/7004 11:35 AM EDT Tibdu117211/27/2018 11:35 AM ZPCCyvyzynuxcp16.4 ??C (97.5 ??F)11/27/2018 11:35 AM EDTRespiratory Lhut8778 11:35 AM EDTOxygen Ncuczajwej83%11/27/2018 11:35 AM EDTInhaled Oxygen Concentration--Erssmk157.1 kg (220 lb 9.6 oz)11/27/2018 11:35 AM AARWwnaud936.8 cm (5' 2.52 )11/27/2018 11:35 AM EDTBody Mass Index39.68 11/27/2018 11:35 AM EDT Plan of Treatment Health MaintenanceDue DateLast DoneCommentsAnxiety Bjkejppul04/29/1961Depression Cpvffcqzi11/29/1961DTaP,Tdap,Td Vaccine (1 - Tdap)2Pneumococcal Vaccine: 50+ (1 of 1 - PCV)1992Shingrix Vaccine (1 of 2)1992Diabetes Elcljjzdy06RSV Vaccine (1 - 1-dose 75+ series)2017 Advance Directive Rvcmfkkmwb10/01/2025ovid-19 Vaccine (1 - 2024-26 season) 2025Influenza Vaccine (#1)2025 Procedures Procedure NamePriorityDate/TimeAssociated DiagnosisCommentsBASIC METABOLIC PANEL Smvrfvw0612/04/2013 11:20 AM EDT from Last 3 Months or Most Recently Relevant to Health Maintenance Results * (ABNORMAL) BASIC METABOLIC PNL (12/04/2013 11:20 AM EDT)ComponentValueRef RangeTest MethodAnalysis TimePerformed AtPathologist BrysedmhhRfoetig4282 - 100 mg/dLBARNESVILLE [facility] RXRAQNMPLIYTN82(H)10 - 25 mg/dLBARNESVILLE [facility]OSPITAL LABORATORYCreatinine1.060.70 - 1.40 mg/dLBARNESVILLE HOSPITAL LABORATORY Arwcwg868497 - 146 mmol/LCWADSWORTH-[facility] MAIN LABORATORYPotassium4.33.5 - 5.0 mmol/LCWADSWORTH-R[facility]TM[facility]IN MQQLDWSVKQLojufqsd18160 - 110 mmol/LCWADSWORTH-[facility] TVUREDBXDVLC87816 - 32 mmol/LCWADSWORTH-RITTM[facility]IN LABORATORYAnion Oya207 - 15 mmol/LCMERCY [facility] LABORATORYCalcium9.78.5 - 10.5 mg/dL [facility] LABORATORYeGFR->60B[facility] LABORATORYeGFR-All Other Races>60.[facility] LABORATORYComment: eGFR (Estimated GFR) Units of [...] [facility] DOLABORATORY Final ResultPerforming OrganizationAddressCity/State/ZIP CodePhone Number [facility] [address] [place] [address] from Last 3 Months or Most Recently Relevant to Health Maintenance Insurance Care Teams Team MemberRelationshipSpecialtyStart DateEnd Bayron Ba MD PCP - GeneralFamily Medicine12/13/11
[2025-08-17] MEDS: ACETAMINOPHEN 325 MG TABLET 650 MG PO (02:58)
[2025-08-17 03:32] LABS: Alanine Aminotransferase 18 U/L (16-63); Albumin Globulin Ratio 0.9; Albumin Level 3.5 g/dL (3.4-5.0); Alkaline Phosphatase 95 U/L (46-116); Anion Gap 11.7; Aspartate Amino Transferase 17 U/L (15-37); Blood Urea Nitrogen 24.0 mg/dL (7.0-18.0); Calcium 9.1 mg/dL (8.5-10.1); Carbon Dioxide 27.0 mmol/L (21.0-32.0); Chloride 103 mmol/L (98-107); Estimated GFR (African America >60 (>=60 mL/min/1.73m^2); Estimated GFR (Non-African Ame 55 (>=60 mL/min/1.73m^2); Globulin 3.9 g/dL; Glucose 128 mg/dL (74-106); Potassium 3.7 mmol/L (3.5-5.1); Sodium 138 mmol/L (136-145); Total Protein 7.4 g/dL (6.4-8.2)
[2025-08-17 03:35] LABS: Lactate/Lactic Acid 1.8 mmol/L (0.4-2.0)
[2025-08-17 03:38] LABS: Hematocrit 44.2 % (42.0-54.0); Hemoglobin 15.0 g/dL (14.0-18.0); Immature Granulocytes Abs Auto 0.13 10^3/uL (0.00-0.03); Immature Granulocytes Pct Auto 1.3 % (0.0-0.5); Lymphocytes Absolute Auto 1.2 10^3/uL (1.2-3.8); Mean Corpuscular HGB Conc 33.9 g/dL (29.9-35.2); Mean Corpuscular Hemoglobin 31.3 pg (25.9-34.0); Mean Corpuscular Volume 92.3 fL (80.0-94.0); Platelet Count 166 10^3/uL (150-450); Red Blood Count 4.79 10^6/uL (4.70-6.10); White Blood Count 10.3 10^3/uL (4.0-11.0)
[2025-08-17 04:28] LABS: Glucose Urine UA NEGATIVE (NEGATIVE)
[2025-08-17 04:38] LABS: Crystals Seen? Seen #/HPF (None Seen)
[2025-08-17 04:39] LABS: Cast Seen? NONE SEEN #/LPF (NONE SEEN)
[2025-08-17 04:41] LABS: Urine Culture Indicated YES-FRMC
--- NOTE | 2025-08-17 04:58 | XR_ITS ---
The [address] [address] Patient Name: KYLER RICHARD MRN: [id number] date: 1940 Sex: M Assigned Patient Location: ER Current Patient Location: Accession/Order Number: [id number] Exam Date: 08/17/2025 05:25 Report Date: 08/17/2025 09:06 At the request of: CAYDEN MALLOY MD Procedure: XR chest 1V PORTABLE AP ERECT CHEST 0457 hours CLINICAL HISTORY: weakness COMPARISON: None Median sternotomy wires are noted. The heart is top normal in size. There is no vascular congestion. There is potential minor basilar scarring or atelectasis. No other consolidation is seen. There is no visible effusion or pneumothorax. The osseous structures are intact. End plate spurring is visualized at the spine. There is also degenerative change at the shoulders. XR/XR chest 1V IMPRESSION: NO ACUTE FINDINGS Impression dictated by: Azul Villanueva M.D. 08/17/2025 9:06 AM Dictation Location: [facility] [employer] Electronically authenticated by: [id number] Y Date: 08/17/2025 09:06
[2025-08-17 18:32] LABS: A. calcoaceticus-baumannii Cpx NOT DETECTED (NOT DETECTE); Bacteroides fragilis NOT DETECTED (NOT DETECTE); Candida auris NOT DETECTED (NOT DETECTE); Candida glabrata NOT DETECTED (NOT DETECTE); Enterococcus faecalis NOT DETECTED (NOT DETECTE); Enterococcus faecium NOT DETECTED (NOT DETECTE); Klebsiella aerogenes NOT DETECTED (NOT DETECTE); Klebsiella pneumoniae group NOT DETECTED (NOT DETECTE); Proteus spp. NOT DETECTED (NOT DETECTE); Salmonella spp. NOT DETECTED (NOT DETECTE); Serratia marcescens NOT DETECTED (NOT DETECTE); Source BLOOD; Staphylococcus epidermidis NOT DETECTED (NOT DETECTE); Staphylococcus lugdunensis NOT DETECTED (NOT DETECTE); Staphylococcus spp. NOT DETECTED (NOT DETECTE); Stenotrophomonas maltophilia NOT DETECTED (NOT DETECTE); Streptococcus pyogenes NOT DETECTED (NOT DETECTE); Streptococcus spp. NOT DETECTED (NOT DETECTE)
[2025-08-17 19:47] LABS: CTX-M NOT DETECTED (NOT DETECTE); IMP NOT DETECTED (NOT DETECTE); KPC NOT DETECTED (NOT DETECTE)
[2025-08-17 19:48] LABS: NDM NOT DETECTED (NOT DETECTE); OXA-48-like NOT DETECTED (NOT DETECTE); VIM NOT DETECTED (NOT DETECTE)
[2025-08-17 19:50] LABS: Enterobacterales DETECTED (NOT DETECTE)
== END 2025-08-17 06:50 | disposition home or self-care (01) ==
PROVIDERS: Emergency Provider Emergency Medicine; PCP Family Medicine
DX: S80.01XA Contusion of right knee, initial encounter (principal); W18.30XA Fall on same level, unspecified, initial encounter; R53.1 Weakness; N39.0 Urinary tract infection, site not specified
CPT/HCPCS: 36415; 71045; 73560; 80053; 81001; 83605; 84484; 85025; 87040; 87077; 87086; 87088; 87150; 87186; 93005; 96365; 99284; J0696